=== PATIENT | female | born 1985 | race Caucasian/White ===

== ENCOUNTER → 2017-04-15 08:00 | Outpatient (CLI) | payer MEDICAID, SELFPAY ==
--- NOTE | 2017-04-15 08:03 | RDU_ITS ---
Reason For Study: I10 Right Renal Artery Left Renal Artery Right renal artery ostium 144/53.8 Left renal artery ostium 113/21.0 RSV/EDV. PSV/EDV. Right renal artery proximal Left renal artery proximal PSV/EDV 150/30.6 PSV/EDV. 134/45.7 . Right renal artery mid 158/49.9 Left renal artery mid 127/44.0 PSV/EDV. PSV/EDV . Right renal artery distal 156/42.8 Left renal artery distal 127/62.3 PSV/EDV. PSV/EDV. Right RAR 1.6. Left RAR 1.4. Right Renal Parenchyma Left Renal Parenchyma Upper Pole Medula 45.2/17.1 Left upper pole medulla 64.9/25.2 PSV/EDV. PSV/EDV . Right upper pole medulla EDR .38 . Left upper pole medulla EDR .39 . Right upper pole medulla R.I. .62 . Left upper pole medulla R.I. .61 . Upper Neil Cortx 34.8/15.3 PSV/EDV. UP Cortex 29.0/13.8 PSV/EDV. Right upper pole cortex EDR .44 . Left upper pole cortex EDR .47 . Right upper pole cortex R.I. .56 . Left upper pole cortex R.I. .53 . Right lower Pole medulla 40.9/13.4 Left lower Pole medulla 55.0/17.6 PSV/EDV . PSV/EDV . Right lower pole medulla EDR .33 . Left lower pole medulla EDR .32 . Right lower pole medulla R.I. .67 . Left lower pole medulla R.I. .68 . Lower Pole Cortex 40.9/15.3 Lower Pole Cortx 33.6/8.40 PSV/EDV. PSV/EDV. Left lower pole cortex EDR .25 . Right lower pole cortex EDR .37 . Left lower pole cortex R.I. .75 . Right lower pole cortex R.I. .63 . Left Renal Hilar Right Renal Hilar Left hilar acceleration time 66 Right hilar acceleration time 44 m/sec. m/sec. LT Hilar avg 94.0/35.1 PSV/EDV . Right Hilar avg 122/45.8 PSV/EDV. Left Renal Dimensions Right Renal Dimensions Left kidney size 13.2 cm . Right kidney size 12.3 cm . Left cortical dimension 2.19 cm . Right cortical dimension 1.7 cm . Aorta Proximal abdominal aorta 1.26 x 1.26 cm . Proximal abdominal aorta peak systolic velocity is 96.7 cm/sec . Distal abdominal aorta 1.26 x 1.3 cm . Distal abdominal aorta peak systolic velocity is 101 cm/sec . Normal renal veins bilat. Interpretation Summary Normal abdominal aorta at 1.3cm diameter 0-59% stenosis bilateral renal arteries: Normal Maintained renal length 12.3cm right and 13.2cm left Ordering Physician: Bethel Jauregui Performed By: Brennen Becker, RVT
== END ==
PROVIDERS: Family Provider Family Medicine; PCP Family Medicine
DX: I10 Essential (primary) hypertension (principal)
CPT/HCPCS: 93975

== ENCOUNTER 2017-04-20 07:23 | Day surgery (SDC) | payer MEDICAID, SELFPAY ==
--- NOTE | 2017-04-19 17:10 | HP.PCM_ITS ---
History and Physical Date of Admission: 04/20/17 Referring Provider: Bethel Jauregui III, MD Primary Provider: Bethel Jauregui III, MD CC: evaluation painful soft tissue mass pubic area . History of Present Illness: 32-year-old woman presents with a painful soft tissue mass on her pubic area. This mass first developed after abdominal surgery done earlier this summer. Back in 2015 she had a gastric bypass procedure including clinic. It was a laparoscopic Og-en-Y procedure. At that time she weighed about 380 pounds and today she weighs about 200 pounds. In August 2016 she underwent an abdominal panniculectomy. After surgery she developed some bleeding was taken back to surgery the same day where she underwent incision and drainage of postop hematoma. She did okay postoperatively initially for about a month. At the end of September she noticed increased pain and redness and swelling in the right side of her abdominal wall near the incision. She went back to surgery on October 20, 2016 where she underwent incision and drainage of infected abdominal seroma. She was treated with antibiotics and wound care until healed. Throughout these procedures she developed increased scarring in the lower anterior abdominal wall area and this exacerbated her painful symptomatology in her pubic area where a large soft tissue masses located. She denies any recent infection of the soft tissue mass. Denies any trauma. Denies any drainage. Patient denies any fever. She presents at this time for further evaluation and treatment. Past Medical History: Back Problems Bladder/Urinary Tract Inf Gallstones High BP Kidney Stones Ulcers - stomach Vitamin Deficiency Abdominal wall skin crease intertrigo Excessive weight loss after gastic bypass procedure painful soft tissue mass pubic area Past Surgical History: 2 Kidney stones removed gallbladder removed Gastric bypass - 2015 Laparoscopic Og-en-Y procedure at [facility] Abdominal panniculectomy - 09/17/16 Incision and drainage postop hematoma abdominal wall - 09/17/16 Incision and drainage infected postop abdominal wall seroma - 10/20/16 Left thyroid removed Family History: Mother (biol.) - Has Family History of Anxiety Mother (biol.) - Has Family History of Bleeding Disease Mother (biol.) - Has Family History of Depression Mother (biol.) - Has Family History of Hypertension Mother (biol.) - Has Family History of High Cholesterol Mother (biol.) - Has Family History of Other Cancer Father (biol.) - Has Family History of Diabetes Father (biol.) - Has Family History of Hypertension PGF - Has Family History of Colon Cancer PGF - Has Family History of Diabetes PGF - Has Family History of Heart Disease Social History: Alcohol Use - no Patient has never smoked. Medications: NEXPLANON IMPLANT (ETONOGESTREL IMPL) subdermal FLOMAX 0.4 MG ORAL CAPSULE (TAMSULOSIN HCL) Two tablets by mouth twice daily LISINOPRIL 40 MG ORAL TABLET (LISINOPRIL) One tablet by mouth twice daily NORCO 5-325 MG ORAL TABLET (HYDROCODONE-ACETAMINOPHEN) as needed VITAMIN D3 77835 UNIT ORAL TABLET (CHOLECALCIFEROL) 1 tab once a week ELAVIL TABLET (AMITRIPTYLINE HCL TABS) One tablet by mouth daily Allergies: NSAIDS (Critical) * GABAPENTIN (Critical) TORADOL (Critical) * TRAMADOL (Critical) Problems: 1) Dx of 8 cm painful soft tissue mass pubic area (SEB11-C92) (ICD-278.1) 2) Dx of excessive weight loss after gastic bypass procedure (VRG39-D91.4) (ICD -783.21) 3) Dx of abdominal wall skin crease intertrigo (VXQ61-O67.4) (ICD-695.89) Risk Factors: Smoked Tobacco Use: Never smoker Smokeless Tobacco Use: Never Passive smoke exposure: yes Drug use: no HIV high-risk behavior: no Caffeine use: <1 drinks per day Alcohol use: yes Has patient -- [place] need to cut down: no Been annoyed by complaints: no [place] guilty about drinking: no Needed eye confectionery laboratory manager in the morning: no Comments: social Counseled to quit/cut down alcohol use: no Exercise: yes Seatbelt use: 100 % Sun Exposure: occasionally Family History Risk Factors: Family History of VA in females < 65 years old: no Family History of VA in males < 55 years old: no Dietary Counseling: yes Review of Systems General-denies fever. Has some fatigue. Has had major weight loss since her gastric bypass procedure done a year and a half ago. She lost 180 pounds. Ear nose and throat-denies nasal congestion. Denies sore throat. Eyes-denies glaucoma. Denies cataracts. Endocrine-denies excessive thirst or urination. Skin-has an abdominal wall skin crease intertrigo for which she uses powders for relief. Musculoskeletal-denies joint pain, joint stiffness, weakness of muscles and joints, neck pain, and arthritis. Neurologic-has headaches. Cardiovascular-denies chest pain. Has some fatigue. Denies shortness of breath with exertion. Psychiatric-denies anxiety. Denies depression. Respiratory-denies shortness of breath. Denies chronic cough. Gastrointestinal-denies nausea, vomiting, diarrhea, constipation. Denies abdominal bloating. Hematologic-denies abnormal bruising or bleeding. Genitourinary-denies hematuria and urinary frequency. Vital Signs: Patient Profile: 32 Years Old Female Height: 67.50 inches Weight: 201.2 pounds BMI: 31.04 BSA: 2.04 Physical Exam General-well developed, well nourished, in no acute distress. HEENT-pupils equal round and reactive to light. Extraocular muscles intact. Throat is clear. Neck-supple and nontender. No cervical adenopathy. Lungs-clear to auscultation. Heart-regular rate and rhythm. Abdomen-soft and nondistended. There is abdominal wall scarring from previous abdominal panniculectomy. No abdominal masses noted. No ventral hernias noted. In the lower anterior abdominal wall by the pubic area is a large soft tissue mass measures 8 cm. It is mobile. Slight tenderness to palpation. No evidence of infection. No ulceration. No bleeding. Extremities-full range of motion. No axillary adenopathy. No inguinal adenopathy. Radial pulses and dorsalis pedis pulses are palpable. Neuro-cranial nerves II through XII grossly intact. Assessment and Plan Assessment 1. 8 cm painful soft tissue mass pubic area. 2. 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 3. Abdominal wall skin crease intertrigo. Plan Recommend excision of this painful soft tissue mass in her pubic area. This became more symptomatic because of the scarring in the close proximity to this mass from her recent surgeries and postop infection. We will send tissue to pathology for analysis to rule out carcinoma. Surgery will be done on an outpatient basis under general anesthesia. Due to the large size of the soft tissue mass, I will probably use a drain postoperatively. She was maintained on antibiotics until the drains are removed. I may also use Elin absorbable hemostat to minimize seroma formation. She will also need an abdominal binder postoperatively. The patient was informed of the risks and complications of the procedure including alternatives to surgery. These were discussed with the patient personally. The patient voices understanding and wishes to proceed. Some of the risks and complications were included in a form from the [employer] [employer].
[2017-04-20] VITALS (9 sets, daily range): BP systolic 126–149; BP diastolic 67–91; PULSE 70–88; RESP 14–16; TEMP 36.1–37; O2SAT 96–100; BMI 32.5
--- NOTE | 2017-04-20 | MASS_PTH ---
PATIENT: ISIDORO PENG [place] [facility] [id number] AGE/SX: ROOM: RE04/20/[address]: Dr. Gigi Mendieta MD : 1985 BED: DIS: 04/21/2017 SPEC #: [id number] RECD: 04/20/17 14:06 STATUS: RAFAELA CARMELA #: [id number] ANGELA: 04/20/17 00:[address]: Gigi Mendieta DEPT: SURGICAL PATHOLOGY RECD BY: Jaden Gregg ENTERED: 04/20/17 14:07 SP TYPE: Mass OTHR DR: Dr. Bethel Jauregui III, MD Tissues: Inguinal region, NOS Procedures: Surgery Specimen Level III HEADER OPERATION: Excision painful mass, soft tissue, pubic area PRE-OP DIAGNOSIS: Painful soft tissue mass, pubic area TISSUE SUBMITTED: Soft tissue mass, pubic area MICROSCOPIC DIAGNOSIS Soft tissue mass of pubic area, excision: Mature adipose tissue consistent with lipoma. Skin with no pathologic change. AM:lucinda 04/21/17 MICROSCOPIC DESCRIPTION Slides are reviewed. GROSS DESCRIPTION Received in fixative is one container labeled with the patient's name and designated soft tissue mass, pubic area. The specimen consists of multiple pieces of yellow adipose tissue with a few of the pieces showing overlying skin measuring 29 x 18 x 4 cm. The skin surface appears unremarkable. Sections do not reveal any obvious well-defined mass lesion and reveal mostly yellow adipose cut surfaces. A few pieces of skeletal muscle tissue are noted and also on the deeper portion of the tissue. Lead Python Developer sections are submitted in three cassettes. Cassette 1 also contains the skin piece. / MORENA:lucinda 04/20/17 TC:1 CPT: 67156
[2017-04-20 08:34] LABS: Pregnancy, Serum, hCG Quali. NEGATIVE Negative (0-9 Nonpreg)
[2017-04-20] MEDS: Cefazolin 2 GM in 0.9% Normal Saline 100 ML IV (09:35)
--- NOTE | 2017-04-20 11:13 | PCM.IMDPSTOP ---
Immediate Post-Op Note Date of Procedure: 04/20/17 Primary Surgeon/Physician: Gigi Mendieta creative producer: Danyell Kelly. Pre-Operative Diagnosis: 1. 8 cm painful soft tissue mass pubic area. 2. 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 3. Abdominal wall skin crease intertrigo. Post-Operative Diagnosis: Same. Surgery/Procedure Performed:: Excision 8 cm painful soft tissue mass pubic area with 20 cm complex closure. Description of Surgical Findings:: 31-year-old woman presents with a painful soft tissue mass on her pubic area. This mass first developed after abdominal surgery done earlier this summer. Back in 2015 she had a gastric bypass procedure including clinic. It was a laparoscopic Og-en-Y procedure. At that time she weighed about 380 pounds and today she weighs about 200 pounds. In August 2016 she underwent an abdominal panniculectomy. After surgery she developed some bleeding was taken back to surgery the same day where she underwent incision and drainage of postop hematoma. She did okay postoperatively initially for about a month. At the end of September she noticed increased pain and redness and swelling in the right side of her abdominal wall near the incision. She went back to surgery on October 20, 2016 where she underwent incision and drainage of infected abdominal seroma. She was treated with antibiotics and wound care until healed. Throughout these procedures she developed increased scarring in the lower anterior abdominal wall area and this exacerbated her painful symptomatology in her pubic area where a large soft tissue masses located. She denies any recent infection of the soft tissue mass. Denies any trauma. Denies any drainage. Patient denies any fever. She presents at this time for further evaluation and treatment. Today the patient underwent excision 8 cm painful soft tissue mass pubic area with 20 cm complex closure. I used Elin absorbable hemostat, (2 vials). Reference Number - [id number]. Lot Number - [id number]. Expiration - January 16, 2022. Estimated Blood Loss: 100 ml. Specimen's removed: Painful soft tissue mass pubic area to Pathology. Drains: Edenilson x 2. Type of Anesthesia:: General - Admit VTE Documentation VTE Present on Admission: No VTE Mechan Device Prophylaxis: SCD's VTE Pharm Prophylaxis ordered?: Yes
[2017-04-20] MEDS: oxyCODONE 5 MG Tablet 10 MG PO ×2 (14:45→18:34)
[2017-04-20] MEDS: Cefazolin 1 GM/50 ML BAG IV (15:57)
[2017-04-20] MEDS: Lactated Ringers 1,000 ML 60 ML IV (17:42)
--- NOTE | 2017-04-20 20:40 | PCM.OPRPT ---
Report of Operation Date of Procedure: 04/20/17 Pre-Operative Diagnosis: 1. 8 cm painful soft tissue mass pubic area. 2. 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 3. Abdominal wall skin crease intertrigo. Post-Operative Diagnosis: Same. Surgery/Procedure Performed:: Excision 8 cm painful soft tissue mass pubic area with 20 cm complex closure. Description of Surgical Findings:: 32-year-old woman presents with a painful soft tissue mass on her pubic area. This mass first developed after abdominal surgery done earlier this summer. Back in 2015 she had a gastric bypass procedure including clinic. It was a laparoscopic Og-en-Y procedure. At that time she weighed about 380 pounds and today she weighs about 200 pounds. In August 2016 she underwent an abdominal panniculectomy. After surgery she developed some bleeding was taken back to surgery the same day where she underwent incision and drainage of postop hematoma. She did okay postoperatively initially for about a month. At the end of September she noticed increased pain and redness and swelling in the right side of her abdominal wall near the incision. She went back to surgery on October 20, 2016 where she underwent incision and drainage of infected abdominal seroma. She was treated with antibiotics and wound care until healed. Throughout these procedures she developed increased scarring in the lower anterior abdominal wall area and this exacerbated her painful symptomatology in her pubic area where a large soft tissue masses located. She denies any recent infection of the soft tissue mass. Denies any trauma. Denies any drainage. Patient denies any fever. The patient was informed of the risks and complications of the procedure including alternatives to surgery. These were discussed with the patient personally. The patient voices understanding and wishes to proceed. Some of the risks and complications were included in a form from the [place] [employer]. I used Elin absorbable hemostat, (2 vials). Reference Number - [id number]. Lot Number - [id number]. Expiration - January 16, 2022. mechanic industrial truck: Danyell Kelly. Type of Anesthesia:: General Specimen's removed: Painful soft tissue mass pubic area to Pathology. Drains: Edenilson x 2. Estimated Blood Loss (mL): 100 ml. Description of Procedure: Patient was taken to OR in supine position and was placed under general anesthesia. Her lower anterior abdominal wall and pubic area were prepped and draped in the usual fashion. SCD's were placed for DVT prophylaxis. Perioperative antibiotics were given intravenously. Markings were made through the horizontal scar and a horizontal ellipse was marked out down toward the pubic mass. These markings were infiltrated with xylocaine with epinephrine. After waiting 5 minutes for the anesthetic to take effect, Incisions were made through the subcutaneous tissue until the abdominal wall fascia was seen. I then dissected inferiorly into the pubic area. There was a large soft tissue mass that was sharply dissected free off the fascia and the overlying subcutaneous tissue. The soft tissue mass was sent to Pathology for analysis to rule out carcinoma. Hemostasis was obtained with electrocautery. Dissection stopped short of the labial and vaginal area. Due to the large size of the cavity after surgical excision, I sprayed the wound with two vials of Elin absorbable hemostat to minimize seroma formation postoperatively. I then placed two size 15 Edenilson drains placed through separate incisions inferolaterally and secured to the skin with 3-0 Nylon suture. The lower abdominal incision was closed in a multiple layer complex fashion with 2-0 Vicryl figure of eight interrupted sutures for the underlying Rubens's fascia layer. The deep dermis and subcutaneous tissue was approximated with 3-0 Monocryl interrupted sutures. The skin was approximated with 3-0 V-lock unidirectional barbed running subcuticular suture. This was followed by Histoacryl skin tissue adhesive. Kerlix gauze dresing was applied followed by ABD pads and Medipore tape dressing followed by a compression abdominal binder. Due to the extent of the dissection, I feel she should be admitted for a surgical observation overnight stay in the hospital for IV pain control and to watch the wound area for possible postop bleeding issues or seroma issues. She will have the drains removed in 14 days. Grafts/Implants Used: None. - Complications None. - Admit VTE Documentation VTE Present on Admission: No VTE Mechan Device Prophylaxis: SCD's VTE Pharm Prophylaxis ordered?: Yes Code Visit Surgery Charges CPT - 56715 ICD-10 - E65, R63.4, L30.4
[2017-04-20] MEDS: Docusate Sodium 100 MG Capsule PO (22:43)
[2017-04-20] MEDS: HYDROmorphone 2 MG TABLET PO (22:43)
[2017-04-21 02:50] VITALS: BP 110/50; PULSE 82; RESP 14; TEMP 36.8; O2SAT 98
[2017-04-21] MEDS: HYDROmorphone 2 MG TABLET PO ×3 (03:32→15:22)
[2017-04-21] MEDS: Enoxaparin 40 MG/0.4 ML Syringe SC (06:07)
[2017-04-21] MEDS: Cefazolin 1 GM/50 ML BAG IV ×2 (06:23→13:08)
[2017-04-21 06:24] LABS: Hematocrit 27.4 % (37-47); Hemoglobin 8.7 g/dl (12.0-15.0); Mean Corp Hgb Conc 31.8 g/gl (32-36); Mean Corpuscular Hgb 26.8 pg (27.0-32.0); Mean Corpuscular Volume 84.3 fL (81-99); Mean Platelet Vol. 11.3 fl (6.2-12.0); Platelet Count 278 K/mm3 (150-450); RBC Distribution Width CV 17.6 % (11.6-14.6); Red Blood Count 3.25 M/mm3 (4.2-5.4); White Blood Count 5.9 K/mm3 (4.4-11.0)
[2017-04-21 06:29] LABS: Scan Indicated on CBC? Y/N NO
[2017-04-21 06:44] LABS: Anion Gap 8 (5-15); BUN 12 mg/dL (7-18); BUN/Creat Ratio 23.2 RATIO (10-20); Calcium,Total 7.8 mg/dL (8.5-10.1); Chloride 104 mmol/L (98-107); Creatinine, Serum 0.52 mg/dL (0.55-1.02); EST Glomerular Filtration Rate 147 mL/min (>60); Est Glom Filt Rate - Afr Amer 178 mL/min (>60); Estimated Creatinine Clearance 146.75 ml/min; Glucose 82 mg/dL (70-110); Prealbumin 22.3 mg/dL (20.0-40.0); Sodium Level 138 mmol/L (136-145)
[2017-04-21 08:20] VITALS: BP 121/53; PULSE 83; RESP 16; TEMP 36.7; O2SAT 100
[2017-04-21] MEDS: Lactated Ringers 1,000 ML 60 ML IV (09:39)
[2017-04-21] MEDS: Docusate Sodium 100 MG Capsule PO (09:41)
[2017-04-21] MEDS: Tamsulosin HCl 0.4 MG Capsule PO (09:41)
[2017-04-21] MEDS: Lisinopril 40 MG Tablet PO (09:41)
[2017-04-21] MEDS: Acetaminophen 325 MG Tablet 650 MG PO ×2 (11:09→17:21)
[2017-04-21 12:51] VITALS: BP 123/54; PULSE 92; RESP 18; TEMP 36.6; O2SAT 98
--- NOTE | 2017-04-21 18:53 | PN.SURG_ITS ---
Subjective: Postop #1 Patient is resting comfortably. Tolerating po analgesia. - Physical Exam General: Alert, Oriented x3 HEENT: PERRLA, EOMI Neck: Supple Lungs: Clear to auscultation Cardiovascular: Regular rate, Regular Rhythm Skin: Incision - lower abdominal wall and pubic incision is dry and intact. Mild swelling present in pubic area. Area is soft. No clinical evidence of hematoma. Neurological: Cranial nerves II-XII grossly intact Psych/Mental Status: Normal Affect Vital Signs Temp Pulse Resp BP Pulse Ox 97.9 F 92 18 123/54 H 98 04/21/17 12:51 04/21/17 12:51 04/21/17 12:51 04/21/17 12:51 04/21/17 12:51 Oxygen Delivery Method Room Air Weight: 201 lb 8.04 oz Body Mass Index (BMI) 32.5 Intake and Output for Last 24 Hours 04/19/17 04/20/17 04/21/17 23:59 23:59 23:59 Intake Total 2271 / 2271 2522 / 2522 Output Total 650 / 650 1240 / 1240 Balance 1621 / 1621 1282 / 1282 Drainage 190 ml today. Laboratory Tests Past 24 Hrs 04/21/17 04/21/17 05:50 05:50 WBC 5.9 RBC 3.25 L Hgb 8.7 L Hct 27.4 L MCV 84.3 MCH 26.8 L MCHC 31.8 L RDW 17.6 H RDW Differential 53.0 H Plt Count 278 MPV 11.3 Sodium 138 Potassium 4.0 Chloride 104 Carbon Dioxide 26.0 Anion Gap 8 BUN 12 Creatinine 0.52 L Estim Creat Clear Calc 146.75 Est GFR (MDRD) Af Amer 178 Est GFR (MDRD) Non-Af 147 BUN/Creatinine Ratio 23.2 H Glucose 82 Calcium 7.8 L Prealbumin 22.3 Assessment/Plan 1. 8 cm painful soft tissue mass pubic area, s/p excision. 2. 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 3. Abdominal wall skin crease intertrigo. 4. Anemia of chronic disease, acute on chronic. Incision is dry and intact. No clinical evidence of hematoma. Hgb is little low at 8.7. Due to combination of some operative blood loss and IV dilution. Will start her on Iron supplements. She will followup with her PCP in 4 weeks for further evaluation. I will recheck a Hgb as an outpatient in 1-2 weeks. Tolerating po analgesia. Prealbumin was 22.3. Encourage nutritional supplementation with protein to help the healing process. Discharge home today. Followup office one week. Will remove the drains in 10- 14 days. Wrote script for Keflex for 14 days until the drains are removed. Wrote script for Percocet for pain (50 tabs). Wrote scripts for Phenergan for nausea (30 tabs) and Colace for constipation ( 30 tabs). Wrote script for Iron supplements daily (30 tabs) with 2 refills. Continue abdominal wall binder.
--- NOTE | 2017-04-21 19:18 | PCM.DC ---
You will use the following diet at home:: No restrictions Discharge Activity: May not drive while taking narcotic pain medications., May Not Shower - until the drains are removed., - - no heavy lifting. May shower in (days): 14 - after the drains are removed. May resume sexual activity in: 10-14 days Ice area for (Minutes): 5 - as needed for swelling. Weight Bearing Status: Weight bearing as tolerated Call your doctor if your incision/area has: Continuous Slow Oozing, Sudden Increased Bleeding, Increased Pain/ Swelling, Increased Redness, Foul Smelling Discharge, Swelling at the incision site Call your doctor if you observe: Fever of 101 or Higher, Coldness, Increased Pain, Shortness of breath, Chest pain, Calf discomfort, Uncontrolled pain Change Dressing in (Days):: 1 - dry dressing daily. Cleanse incision/area with: - - may get the incision wet in the shower after the drains are removed. Drain: Suction - fidelia drain x 2 to bulb suction. empty and record output daily. Additional Instructions: I will check a Hgb in the next couple of weeks as an outpatient in the office. Allergies/Adverse Reactions: Allergies methocarbamol Allergy (Verified 04/13/17 15:15) Chest tightness gabapentin Adverse Reaction (Verified 04/13/17 15:15) MADE ME WALK SIDEWAYS ketorolac tromethamine [From Toradol] Adverse Reaction (Verified 04/13/17 15:15) Upset Stomach NSAIDS (Non-Steroidal Anti-Inflamma Adverse Reaction (Verified 04/13/17 15:15) gastric bipass not supposed to take tramadol Adverse Reaction (Verified 04/13/17 15:15) Upset Stomach Medications to take at Discharge Ergocalciferol [Vitamin D] 50,000 unit PO Q7D 03/25/13 Lisinopril [Zestril] 40 mg PO BID 05/07/15 Amitriptyline HCl [Elavil] 25 mg PO QHS 12/12/15 Etonogestrel [Nexplanon] 68 mg SQ X1 12/12/15 Tamsulosin HCl [Flomax] 0.4 mg PO DAILY 03/24/16 Acetaminophen [Tylenol Tablet] 650 mg PO Q6H PRN PRN tablet 04/21/17 Cephalexin [Keflex] 500 mg PO TID #42 cap 04/21/17 Docusate Sodium [Colace] 100 mg PO BID #30 cap 04/21/17 Iron Poly/Vit C [Niferex-150] 150 mg PO DAILYCM #30 cap 04/21/17 Oxycodone HCl/Acetaminophen [Percocet 5/325] 1 - 2 tab PO 4X/DAY PRN PRN 7 Days #50 tab 04/21/17 ProMETHAzine [Phenergan] 25 mg PO 4X/DAY PRN PRN #30 tab 04/21/17 The following prescriptions were given: Iron Poly/Vit C [Niferex-150] 150 mg PO DAILYCM #30 cap Oxycodone HCl/Acetaminophen [Percocet 5/325] 1 - 2 tab PO 4X/DAY PRN PRN 7 Days #50 tab PRN Reason: Pain ProMETHAzine [Phenergan] 25 mg PO 4X/DAY PRN PRN #30 tab PRN Reason: NAUSEA/VOMITING Docusate Sodium [Colace] 100 mg PO BID #30 cap Cephalexin [Keflex] 500 mg PO TID #42 cap Primary Care Physician: Bethel Jauregui III, MD [Primary Care Provider] - Please follow up with your Primary Care Physician in: 4 weeks to further evaluate her anemia. Please Follow Up With: Gigi Mendieta MD When: one week. call [phone] for appt. Proposed Discharge Date: 04/21/17
[2017-04-21 19:25] VITALS: BP 140/82; PULSE 88; RESP 18; TEMP 36.8; O2SAT 98
== END 2017-04-21 19:37 | disposition home or self-care (01) ==
LOC: SDC 07:24 → AC 07:24 → MS3 10:50
PROVIDERS: Anesthesiology; Family Provider Family Medicine; PCP Family Medicine; Visit Provider Surgery
PROC: (CPT 13101; principal; 2017-04-20 08:40)
DX: D17.79 Benign lipomatous neoplasm of other sites (principal); R63.4 Abnormal weight loss; E65 Localized adiposity; L30.4 Erythema intertrigo; D63.8 Anemia in other chronic diseases classified elsewhere; I10 Essential (primary) hypertension; Z68.31 Body mass index [BMI] 31.0-31.9, adult; Z98.84 Bariatric surgery status
CPT/HCPCS: 13101; 13102 ×2; 22903; 36415; 80048; 84134; 84703; 85027; 88304; 88305; J7120; J2405

== ENCOUNTER 2017-04-24 15:32 | Emergency (ER) | payer MEDICAID, SELFPAY ==
[2017-04-21 19:25] VITALS: BP 140/82
[2017-04-24 15:33] VITALS: BP 150/104; PULSE 94; RESP 18; TEMP 36.8; O2SAT 100; BMI 32.5
--- NOTE | 2017-04-24 15:51 | EKG12_ITS ---
Test Reason : WEAKNESS Blood Pressure : / mmHG Vent. Rate : 087 BPM Atrial Rate : 087 BPM P-R Int : 150 ms QRS Dur : 088 ms QT Int : 366 ms P-R-T Axes : 046 045 018 degrees QTc Int : 440 ms Normal sinus rhythm Normal ECG Confirmed by THOMAS BROWN, STEPHANE ([id number]), editor managing newspaper [employer] EVANS ([id number]) on 04/27/2017 8:42:20 AM Referred By: SHADI Confirmed By:STEPHANE GUZMAN MD
[2017-04-24] MEDS: 0.9% Normal Saline 1,000 ML 1000 ML IV (17:12)
--- NOTE | 2017-04-24 17:13 | ED.RN ---
PT WAS DIFFICULT IV STICK.
[2017-04-24 17:17] VITALS: BP 124/67; BP 129/67; BP 138/75; PULSE 75; PULSE 77; PULSE 80
[2017-04-24 17:24] LABS: Absolute Lymphocyte Count 1.31 X10^3/ul (0.83-4.51); Absolute Neutrophil Count 3.1 X10^3/uL (2.0-7.7); Basophil# 0.06 X10^3/uL; Basophil% 1.2 % (0-1); Eosinophil# 0.12 X10^3/uL; Eosinophils% 2.4 % (0-5); Lymphocyte # 1.31 X10^3/ul (4.0); Lymphocyte % 26.3 % (19-41); Mean Corp Hgb Conc 32.3 g/gl (32-36); Mean Corpuscular Hgb 27.2 pg (27.0-32.0); Mean Corpuscular Volume 84.2 fL (81-99); Mean Platelet Vol. 11.2 fl (6.2-12.0); Monocyte# 0.45 X10^3/uL; Neutrophil # 3.05 X10^3/uL (2.7-7.7); Neutrophil % 61.1 % (47-70); Platelet Count 349 K/mm3 (150-450); RBC Distribution Width CV 17.3 % (11.6-14.6); Red Blood Count 3.68 M/mm3 (4.2-5.4)
[2017-04-24 17:30] LABS: POSITIVE COUNT NO; POSITIVE DIFFERENTIAL NO; POSITIVE MORPHOLOGY NO
[2017-04-24 17:36] LABS: Anion Gap 5 (5-15); BUN 14 mg/dL (7-18); BUN/Creat Ratio 23.1 RATIO (10-20); Calcium,Total 8.6 mg/dL (8.5-10.1); Chloride 106 mmol/L (98-107); Creatinine, Serum 0.61 mg/dL (0.55-1.02); EST Glomerular Filtration Rate 122 mL/min (>60); Est Glom Filt Rate - Afr Amer 148 mL/min (>60); Estimated Creatinine Clearance 125.09 ml/min; Glucose 80 mg/dL (74-106); Potassium 4.2 mmol/L (3.5-5.1); Sodium Level 140 mmol/L (136-145)
[2017-04-24 17:39] LABS: International Normalized Ratio 0.9; Prothrombin Time (Protime)PT. 12.1 SECONDS (11.7-14.9)
[2017-04-24 17:53] VITALS: BP 128/76; PULSE 83; RESP 14; O2SAT 99
--- NOTE | 2017-04-24 18:13 | ED.DCSUM_ITS ---
- ER Visit Summary Date of Service: 04/24/17 Chief Complaint: Dizzy, pale, tired History of Present Illness: The patient is a 32 F who is concerned about possible anemia. 4 days ago she had abdominal surgery for a lipoma. Postoperatively her hemoglobin was 8.7. She states that since that time she has just generally felt more tired and feels she is more pale and has had intermittent lightheadedness. She denies any fever nausea or vomiting. She did have some diarrhea this morning. She called the hospital but was unable to contact her surgeon so presented here to the emergency department. She notes thin red drainage at her MARIE drains. She does complain of some increased lower abdominal pain but no drainage from the wound. Physical Examination: Afebrile vitals are stable Heart regular rate and rhythm Lungs are clear Abdomen soft Lower abdominal incisions clean dry and intact she has 2 MARIE drains which have serosanguineous drainage she does have some tenderness along the incision but I do not appreciate any fluctuance induration or erythema at the wound edges Test Results: Laboratory studies notable for hemoglobin 10.0. Orthostatic vital signs negative. EKG shows normal sinus rhythm at a rate of 87. Emergency Department Course and Treatment: Patient was treated with IV fluids. Her hemoglobin is improved. She has no evidence of wound infection. She was advised on supportive care. She understands to return for new or worsening symptoms. I did contact her plastic surgeon who asked that she call the office for follow-up next week. Treatment Plan: [] Disposition: Discharge Impression: Fatigue History of anemia Postoperative abdominal pain This note was generated with [employer] dictation software. It may contain incorrect words, spelling, and punctuation that were not noted in review of the chart prior to signing ED Disposition - Plan for ED Patient: Chief Complaint: Weakness Referrals: Bethel Jauregui III, MD [Primary Care Provider] -
--- NOTE | 2017-04-24 18:13 | ED.DEP ---
ED Disposition - Plan for ED Patient: Chief Complaint: Weakness Instructions: ED Weakness UKO, Anemia Referrals: Bethel Jauregui III, MD [Primary Care Provider] - Gigi Mendieta MD [STAFF PHYSICIAN] -
[2017-04-24 18:45] VITALS: RESP 16
== END 2017-04-24 18:47 | disposition home or self-care (01) ==
PROVIDERS: Emergency Provider Emergency Medicine; Family Provider Family Medicine; PCP Family Medicine
DX: R53.83 Other fatigue (principal); D64.9 Anemia, unspecified; G89.18 Other acute postprocedural pain; R10.9 Unspecified abdominal pain; I10 Essential (primary) hypertension; Z87.442 Personal history of urinary calculi; Z98.84 Bariatric surgery status
CPT/HCPCS: 80048; 85025; 85610; 86850; 86900; 93005; 99285; J7030; A4216

== ENCOUNTER 2017-04-30 09:36 | Inpatient (IN) | payer MEDICAID, SELFPAY ==
[2017-04-24 17:17] VITALS: BP 124/67; BP 129/67; BP 138/75
[2017-04-28 10:22] VITALS: BP 145/86
[2017-04-28 10:26] VITALS: BMI 32.5
[2017-04-30 09:38] VITALS: BP 138/91; PULSE 111; RESP 18; TEMP 36.4; O2SAT 100; BMI 32.3
--- NOTE | 2017-04-30 10:09 | CT_ITS ---
STUDY: CT PELVIS WITH CONTRAST REASON FOR EXAM: Female, 32 years old. Left groin pain with swelling and fever. Recent excessive skin removal. RADIATION DOSAGE (If Supplied By Facility): CTDIvol = ( 20.60 ) mGy, DLP = ( 1023.93 ) mGycm TECHNIQUE: Transaxial imaging of the pelvis was performed without oral contrast. 100 ml of Isovue 300 contrast was administered intravenously. Individualized dose optimization techniques were used for this CT. COMPARISON: Comparison is made with prior examination dated 2017. FINDINGS: Normal urinary bladder. There is a 2.4 cm x 2.2 cm cyst in the left ovary. A dominant follicle is seen in the right ovary. Normal visualized small intestine. Normal visualized colon. There is no pelvic fluid. There is no pelvic lymphadenopathy or mass lesion. Normal visualized pelvic arteries. There is a 12.9 cm x 2.2 cm fluid collection in the subcutaneous tissues in the anterior pelvic wall. A drainage catheter is seen within it. This most likely represents a postoperative seroma. This extends in to the mons pubis. Normal osseous structures. CT/Pelvis WITH IV Contrast IMPRESSION: Subcutaneous fluid collection as described. A drainage catheter is seen within. This most likely represents a postoperative seroma. Electronically Signed: Demetrius Brandon MD at 11:27 EST Tel [phone], Service support ,
[2017-04-30] MEDS: 0.9% Normal Saline 1,000 ML 150 ML IV (10:21)
[2017-04-30] MEDS: Ondansetron 4 MG/2 ML Vial IV (10:22)
[2017-04-30 10:51] LABS: Absolute Lymphocyte Count 1.03 X10^3/ul (0.83-4.51); Absolute Neutrophil Count 12.2 X10^3/uL (2.0-7.7); Basophil# 0.05 X10^3/uL; Basophil% 0.3 % (0-1); Eosinophil# 0.05 X10^3/uL; Eosinophils% 0.3 % (0-5); Hematocrit 32.2 % (37-47); Hemoglobin 10.4 g/dl (12.0-15.0); Lymphocyte # 1.03 X10^3/ul (4.0); Lymphocyte % 6.9 % (19-41); Mean Corp Hgb Conc 32.3 g/gl (32-36); Mean Corpuscular Hgb 26.3 pg (27.0-32.0); Mean Corpuscular Volume 81.3 fL (81-99); Mean Platelet Vol. 10.8 fl (6.2-12.0); Monocyte# 1.47 X10^3/uL; Monocyte% 9.9 % (0-10); Neutrophil # 12.23 X10^3/uL (2.7-7.7); Neutrophil % 82.4 % (47-70); Platelet Count 455 K/mm3 (150-450); RBC Distribution Width CV 16.5 % (11.6-14.6); RBC Distribution Width SD 48.2 fl (35.1-43.9); Red Blood Count 3.96 M/mm3 (4.2-5.4); White Blood Count 14.9 K/mm3 (4.4-11.0)
[2017-04-30 10:53] LABS: POSITIVE COUNT NO; POSITIVE DIFFERENTIAL NO; POSITIVE MORPHOLOGY NO
[2017-04-30 11:04] LABS: Anion Gap 8 (5-15); BUN 14 mg/dL (7-18); BUN/Creat Ratio 23.4 RATIO (10-20); Calcium,Total 8.6 mg/dL (8.5-10.1); Chloride 102 mmol/L (98-107); EST Glomerular Filtration Rate 124 mL/min (>60); Est Glom Filt Rate - Afr Amer 150 mL/min (>60); Estimated Creatinine Clearance 127.18 ml/min; Glucose 96 mg/dL (74-106); Potassium 4.1 mmol/L (3.5-5.1); Sodium Level 136 mmol/L (136-145)
[2017-04-30 11:25] LABS: Lactic Acid 1.2 mmol/L (0.4-2.0)
--- NOTE | 2017-04-30 11:40 | ED.VISSUMM ---
- ER Visit Summary Date of Service: 04/30/17 Chief Complaint: Mane with left lower quadrant abdominal pain, fullness, fever and increased drainage History of Present Illness: The patient is a 32 F status post gastric bypass surgery many years ago and underwent abdominoplasty to remove excess skin August 2016 presents because of fever, left lower quadrant fullness and pain with increased drainage since MARIE drain was removed. She still has [address] There is serous bloody material noted in the drain. She denies headache, photophobia sips of her neck. She denies rhinorrhea, earache or sore throat. She denies cough or shortness of breath. She denies chest pain. She denies dysuria, urgency or hematuria. She denies any back or flank pain. She does report increased drainage from the remaining MARIE site. Physical Examination: Signs are remarkable for a blood pressure 138/91 heart rate is 111. She appears pale and ill. Head is atraumatic normocephalic. Pupils are equal round reactive. Extraocular muscles are intact. Interval appear pale. TMs are pearly white with landmarks noted. Nares patent with no drainage. Posterior pharynx without erythema or exudate. Uvula is midline. There is no dysphonia or dysphasia. Trachea is midline. There is no stridor with auscultation of the neck. Heart is rapid and regular without murmur, gallop or rub. S1 and S2 are normal. Lungs are clear to auscultation with good movement of air bilaterally. It is remarkable tenderness and fullness in left lower quadrant. There is erythema of the skin with increased warmth. There is minimal drainage from the MARIE drainage site. There is no peritoneal findings. There is no CVA tenderness noted. Neuro exam is nonfocal. Test Results: White count is elevated 14.9 thousand with 83 segs no bands. H&H is 10.4 and 32.2 which is an improvement from prior. BMP and lactate are normal. CT of the pelvis reveals a fluid collection consistent with a seroma. Emergency Department Course and Treatment: Planes of fever chills appears pale a CBC was obtained to assess white count and H&H. BMP to evaluate electrolytes and specifically BUN and creatinine. Because of the fullness tenderness warmth with increased drainage a CT of the pelvis with IV contrast was obtained to evaluate for hematoma versus abscess versus cellulitis. Treatment Plan: Was discussed Dr. jeffrey. He was informed of patient's history, physical findings diagnostic results. He requested admission. Therefore, she received 60 mg of clindamycin IV piggyback. Will put in admit orders and see her on the floor. Disposition: [facility] admit Impression: 1. Postop wound infection 2. Sepsis line 3. Sinus tachycardia documented on monitor This note was generated with [employer] dictation software. It may contain incorrect words, spelling, and punctuation that were not noted in review of the chart prior to signing ED Disposition - Plan for ED Patient: Chief Complaint: Wound Check Referrals: Bethel Jauregui III, MD [Primary Care Provider] -
--- NOTE | 2017-04-30 11:43 | ED.DCSUM_ITS ---
- ER Visit Summary Date of Service: 04/30/17 Chief Complaint: Mane with left lower quadrant abdominal pain, fullness, fever and increased drainage History of Present Illness: The patient is a 32 F status post gastric bypass surgery many years ago and underwent abdominoplasty to remove excess skin August 2016 presents because of fever, left lower quadrant fullness and pain with increased drainage since MARIE drain was removed. She still has [address] There is serous bloody material noted in the drain. She denies headache, photophobia sips of her neck. She denies rhinorrhea, earache or sore throat. She denies cough or shortness of breath. She denies chest pain. She denies dysuria, urgency or hematuria. She denies any back or flank pain. She does report increased drainage from the remaining MARIE site. Physical Examination: Signs are remarkable for a blood pressure 138/91 heart rate is 111. She appears pale and ill. Head is atraumatic normocephalic. Pupils are equal round reactive. Extraocular muscles are intact. Interval appear pale. TMs are pearly white with landmarks noted. Nares patent with no drainage. Posterior pharynx without erythema or exudate. Uvula is midline. There is no dysphonia or dysphasia. Trachea is midline. There is no stridor with auscultation of the neck. Heart is rapid and regular without murmur, gallop or rub. S1 and S2 are normal. Lungs are clear to auscultation with good movement of air bilaterally. It is remarkable tenderness and fullness in left lower quadrant. There is erythema of the skin with increased warmth. There is minimal drainage from the MARIE drainage site. There is no peritoneal findings. There is no CVA tenderness noted. Neuro exam is nonfocal. Test Results: White count is elevated 14.9 thousand with 83 segs no bands. H&H is 10.4 and 32.2 which is an improvement from prior. BMP and lactate are normal. CT of the pelvis reveals a fluid collection consistent with a seroma. Emergency Department Course and Treatment: Planes of fever chills appears pale a CBC was obtained to assess white count and H&H. BMP to evaluate electrolytes and specifically BUN and creatinine. Because of the fullness tenderness warmth with increased drainage a CT of the pelvis with IV contrast was obtained to evaluate for hematoma versus abscess versus cellulitis. Treatment Plan: Was discussed Dr. jeffrey. He was informed of patient's history , physical findings diagnostic results. He requested admission. Therefore, she received 60 mg of clindamycin IV piggyback. Will put in admit orders and see her on the floor. Disposition: [facility] admit Impression: 1. Postop wound infection 2. Sepsis line 3. Sinus tachycardia documented on monitor This note was generated with [employer] dictation software. It may contain incorrect words, spelling, and punctuation that were not noted in review of the chart prior to signing ED Disposition - Plan for ED Patient: Chief Complaint: Wound Check Referrals: Bethel Jauregui III, MD [Primary Care Provider] -
--- NOTE | 2017-04-30 11:58 | NURSING ---
DR CAMILO DARLING
--- NOTE | 2017-04-30 12:32 | NURSING ---
310 CELLULITIS LOWER ANTERIOR ABD WALL AND PUBIC ARE SLABY
[2017-04-30 12:38] VITALS: BP 126/87; PULSE 99; RESP 18; TEMP 37; O2SAT 100
[2017-04-30 13:31] VITALS: BP 128/70; PULSE 100; RESP 16; TEMP 37.7; O2SAT 99
[2017-04-30 13:44] VITALS: BMI 32.3; BMI 32.4
[2017-04-30] MEDS: Lactated Ringers 1,000 ML 100 ML IV (14:08)
[2017-04-30] MEDS: HYDROmorphone 1 MG/ML Syringe IV ×2 (14:21→19:49)
[2017-04-30 14:23] VITALS: PULSE 98
[2017-04-30] MEDS: Piperacil/Tazobactam 3.375 GM/50 ML ML IV ×2 (14:49→21:24)
--- NOTE | 2017-04-30 14:51 | PN.SURG_ITS ---
Patient Problems: Active and Suspected Problems (Last Updated 04/23/17 @ 14:42 by Griselda Chou) Cellulitis of abdominal wall (Acute) Cellulitis of pubic region (Acute) Subjective: DATE OF LAST HISTORY AND PHYSICAL - April 19, 2017. DATE OF PREVIOUS SURGERY - April 20, 2017. Postop #10 Patient recently had surgery on 04/20/17 where she underwent excision 8 cm painful soft tissue mass pubic area with 20 cm complex closure. Patient presented with increasing redness and pain in her pubic area over the last 24 hours. She also noted fever at home. She had two drains placed at the time of surgery, and one was recently removed in the office a couple of days ago. She also decreased appetite. In the ED, her WBC was 14.9. A CT Pelvis was done which showed the presence of a postop seroma. She is being admitted for IV antibiotics and possible surgical drainage if improvement is not seen. - Physical Exam General: Alert, Oriented x3 HEENT: PERRLA, EOMI Neck: Supple Lungs: Clear to auscultation Cardiovascular: Regular rate, Regular Rhythm Abdomen: Soft, Non-Distended, - - Pubic area is swollen from her recent surgery. The skin is soft. Some cellulitis is seen on the right side of the pubic area. Extremities: Edema - mild edema in lower extremities., Peripheral Pulses Normal Lymphatic: - - no inguinal adenopathy. Neurological: Cranial nerves II-XII grossly intact Psych/Mental Status: Normal Affect, Appropriate Vital Signs Temp Pulse Resp BP Pulse Ox 99.9 F H 98 16 128/70 H 99 04/30/17 13:31 04/30/17 14:23 04/30/17 13:31 04/30/17 13:31 04/30/17 13:31 Oxygen Delivery Method Room Air Weight: 201 lb 0.985 oz Body Mass Index (BMI) 32.[address] 04/30/17 10:09 IMPRESSION: Subcutaneous fluid collection as described. A drainage catheter is seen within. This most likely represents a postoperative seroma. Electronically Signed: Demetrius Brandon MD at 11:27 EST Tel [phone], Service support , 04/30/17 10:09 CT Pel [Pelvis WITH IV Contrast] [CT] Stat Laboratory Results 04/30/17 04/30/17 04/30/17 Range/Units 10:40 10:40 10:40 WBC 14.9 H (4.4-11.0) K/mm3 RBC 3.96 L (4.2-5.4) M/mm3 Hgb 10.4 L (12.0-15.0) g/dl Hct 32.2 L (37-47) % MCV 81.3 (81-99) fL MCH 26.3 L (27.0-32.0) pg MCHC 32.3 (32-36) g/gl RDW 16.5 H (11.6-14.6) % RDW Differential 48.2 H (35.1-43.9) fl Plt Count 455 H (150-450) K/mm3 MPV 10.8 (6.2-12.0) fl Immature Gran % (Auto) 0.200 (0.0-0.9) % Neut % (Auto) 82.4 H (47-70) % Lymph % (Auto) 6.9 L (19-41) % [place] % (Auto) 9.9 (0-10) % Eos % (Auto) 0.3 (0-5) % Baso % (Auto) 0.3 (0-1) % Absolute Neuts (auto) 12.2 H (2.0-7.7) X10^3/uL Absolute Lymphs (auto) 1.03 (0.83-4.51) X10^3/ul Total Counted Not Reportable Sodium 136 (136-145) mmol/L Potassium 4.1 (3.5-5.1) mmol/L Chloride 102 (98-107) mmol/L Carbon Dioxide 26.0 (21.0-32.0) mmol/L Anion Gap 8 (5-15) BUN 14 (7-18) mg/dL Creatinine 0.60 (0.55-1.02) mg/dL Estim Creat Clear Calc 127.18 ml/min Est GFR (MDRD) Af Amer 150 (>60) mL/min Est GFR (MDRD) Non-Af 124 (>60) mL/min BUN/Creatinine Ratio 23.4 H (10-20) RATIO Glucose 96 (74-106) mg/dL Lactic Acid 1.2 (0.4-2.0) mmol/L Calcium 8.6 (8.5-10.1) mg/dL Assessment/Plan Active and Suspected Problems (Last Updated 04/23/17 @ 14:42 by Griselda Chou) Cellulitis of abdominal wall (Acute) Cellulitis of pubic region (Acute) 1. 8 cm painful soft tissue mass pubic area. 2. 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 3. Abdominal wall skin crease intertrigo. 4. s/p excision 8 cm painful soft tissue mass pubic area with 20 cm complex closure. 5. Cellulitis lower anterior abdominal wall and pubic area. Admit for IV antibiotics. Will start with Vancomycin and Zosyn. Recheck labs tomorrow. Continue abdominal wall binder. Will remove drain in 7-10 days. No urgent need for surgery at this time. Patient can eat. If no improvement is seen or if it gets worse, then operative drainage may be necessary. If surgery is done, I would leave the wound open and proceed with the VAC. Can then proceed in the future when the inflammation has subsided with a secondary wound closure. May also consider an Ultrasound guided drainage of the seroma and then send some fluid for culture.
[2017-04-30] MEDS: oxyCODONE 5 MG Tablet 10 MG PO ×2 (17:16→21:12)
[2017-04-30] MEDS: 0.9% NaCl Peripheral Flush Adult/Peds IV (19:50)
[2017-04-30 20:03] VITALS: BP 145/69; PULSE 108; RESP 18; TEMP 37.4; O2SAT 98
[2017-04-30 21:00] VITALS: BP 132/54; PULSE 102; RESP 16; TEMP 36.6; O2SAT 98
--- NOTE | 2017-04-30 21:00 | NURSING ---
PT CALLED BUSINESS PLANNING MANAGER AND STATED SHE HAD STUMBLED AND HER ABD PRESSED AGAINST THE SIDE OF THE BED. REPORTS FEELING AN INCREASE IN MARIE DRAINAGE AND AN INCREASE IN PAIN. VSS. MEDICATED FOR PAIN. PT PLACED ON FALL PRECAUTIONS. WILL CONTINUE TO MONITOR MARIE OUTPUT.
[2017-04-30] MEDS: Labetalol 100 MG Tablet PO (21:27)
--- NOTE | 2017-04-30 22:46 | NURSING ---
PER KATHY IN RX, OK TO INCREASE OXYIR TO 15MG Q4H. NO UPPER LIMIT ON DOSE.
[2017-05-01] VITALS (8 sets, daily range): BP systolic 104–128; BP diastolic 49–61; PULSE 90–105; RESP 16; TEMP 36.7–36.9; O2SAT 98–99
[2017-05-01] MEDS: HYDROmorphone 1 MG/ML Syringe IV ×4 (00:07→19:08)
[2017-05-01] MEDS: 0.9% NaCl Peripheral Flush Adult/Peds IV ×2 (00:07→07:39)
[2017-05-01] MEDS: Lactated Ringers 1,000 ML 100 ML IV ×2 (00:07→10:05)
--- NOTE | 2017-05-01 00:18 | NURSING ---
PT REPORTS FEELING FLUSH AND ITCHING DURING VANC INFUSION. RATE REDUCED TO 100ML/HR
[2017-05-01] MEDS: oxyCODONE 5 MG Tablet 15 MG PO ×5 (04:38→22:50)
[2017-05-01] MEDS: Piperacil/Tazobactam 3.375 GM/50 ML ML IV ×3 (06:27→21:44)
[2017-05-01 07:11] LABS: Hematocrit 26.4 % (37-47); Hemoglobin 8.3 g/dl (12.0-15.0); Mean Corp Hgb Conc 31.4 g/gl (32-36); Mean Corpuscular Hgb 26.1 pg (27.0-32.0); Mean Platelet Vol. 10.2 fl (6.2-12.0); Platelet Count 380 K/mm3 (150-450); RBC Distribution Width CV 16.8 % (11.6-14.6); RBC Distribution Width SD 51.7 fl (35.1-43.9); Red Blood Count 3.18 M/mm3 (4.2-5.4); White Blood Count 9.9 K/mm3 (4.4-11.0)
[2017-05-01 07:18] LABS: Scan Indicated on CBC? Y/N NO
[2017-05-01 07:34] LABS: Anion Gap 7 (5-15); BUN 9 mg/dL (7-18); BUN/Creat Ratio 16.8 RATIO (10-20); Chloride 103 mmol/L (98-107); Creatinine, Serum 0.54 mg/dL (0.55-1.02); EST Glomerular Filtration Rate 141 mL/min (>60); Est Glom Filt Rate - Afr Amer 170 mL/min (>60); Estimated Creatinine Clearance 141.31 ml/min; Glucose 98 mg/dL (74-106); Potassium 3.8 mmol/L (3.5-5.1); Sodium Level 136 mmol/L (136-145)
[2017-05-01] MEDS: Tamsulosin HCl 0.4 MG Capsule 0.8 MG PO (08:11)
[2017-05-01] MEDS: Labetalol 100 MG Tablet PO ×2 (09:44→21:44)
[2017-05-01] MEDS: hydroCHLOROthiazide 25 MG Tablet 12.5 MG PO (09:44)
[2017-05-01] MEDS: Lisinopril 40 MG Tablet PO ×2 (09:44→21:44)
[2017-05-01] MEDS: amLODIPine 10 MG Tablet PO (09:45)
--- NOTE | 2017-05-01 12:05 | PCM.PN.SRG ---
Patient Problems: Active and Suspected Problems (Last Updated 04/23/17 @ 14:42 by Griselda Chou) Cellulitis of abdominal wall (Acute) Cellulitis of pubic region (Acute) Subjective: Postop #11 Patient feels tired. Has discomfort in her incision area and pubic area. - Physical Exam Abdomen: Soft, Non-Distended, - - Pubic area is swollen from her recent surgery. The skin is soft. The cellulitis seen on the right side of the pubic area has improved with the antibiotics. Extremities: Edema - mild edema in lower extremities. Skin: Incision - lower anterior abdominal wall incision dry and intact. Lymphatic: - - no inguinal adenopathy. Neurological: Cranial nerves II-XII grossly intact Psych/Mental Status: Normal Affect, Appropriate Vital Signs Temp Pulse Resp BP Pulse Ox 98.5 F 99 16 128/61 H 98 05/01/17 09:30 05/01/17 09:30 05/01/17 09:30 05/01/17 09:30 05/01/17 09:30 Oxygen Delivery Method Room Air Weight: 201 lb 0.985 oz Body Mass Index (BMI) 32.4 Intake and Output for Last 24 Hours 04/29/17 04/30/17 05/01/17 23:59 23:59 23:59 Intake Total 2510 / 2510 3072 / 3072 Output Total 550 / 550 1240 / 1240 Balance 1959 / 1959 1832 / 1832 Drainage 350 ml yesterday. Laboratory Tests Past 24 Hrs 05/01/17 05/01/17 05/01/17 06:37 06:37 06:37 WBC 9.9 RBC 3.18 L Hgb 8.3 L Hct 26.4 L MCV 83.0 MCH 26.1 L MCHC 31.4 L RDW 16.8 H RDW Differential 51.7 H Plt Count 380 MPV 10.2 Sodium 136 Potassium 3.8 Chloride 103 Carbon Dioxide 26.0 Anion Gap 7 BUN 9 Creatinine 0.54 L Estim Creat Clear Calc 141.31 Est GFR (MDRD) Af Amer 170 Est GFR (MDRD) Non-Af 141 BUN/Creatinine Ratio 16.8 Glucose 98 Calcium 8.0 L Prealbumin 9.0 L Cancelled Assessment/Plan Active and Suspected Problems (Last Updated 04/23/17 @ 14:42 by Griselda Chou) Cellulitis of abdominal wall (Acute) Cellulitis of pubic region (Acute) 1. 8 cm painful soft tissue mass pubic area. 2. 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 3. Abdominal wall skin crease intertrigo. 4. s/p excision 8 cm painful soft tissue mass pubic area with 20 cm complex closure. 5. Cellulitis lower anterior abdominal wall and pubic area, improving. 6. Anemia of chronic disease, acute on chronic. 7. History of MRSA. Continue Vancomycin and Zosyn. She states she has a history of MRSA. Continue abdominal wall binder. Will remove drain in 7-10 days. No need for surgery at this time. Improvement is seen. May change to po antibiotics tomorrow if continued improvement seen. If no improvement is seen or if it gets worse, then operative drainage may be necessary. If surgery is done, I would leave the wound open and proceed with the VAC. Can then proceed in the future when the inflammation has subsided with a secondary wound closure. May also consider an Ultrasound guided drainage of the seroma and then send some fluid for culture. Hgb has decreased from 10.4 to 8.3. She has anemia of chronic disease with acute on chronic. There is no evidence of bleeding at this time. CT in ED showed a seroma. Skin is soft. No blood coming out of the drain. Looks more serous. It is mostly due to IV dilution. She is positive 3,800 ml from her I's/O's. Started her on Fe supplementation. She will followup with her PCP regarding her chronic anemia for evaluation since it is quite common to have anemia after gastric bypass surgery. Prealbumin quite low at 9.0. Encourage nutritional supplementation with protein to help the healing process.
[2017-05-01] MEDS: Iron Polysaccharide Complex 150 MG CAPSULE PO (12:42)
--- NOTE | 2017-05-01 15:00 | CASEMGMT ---
clinical assessment manager completed, see attached. States was told may go home with IVAB. Patient feels she would be able to learn how to admin IVAB herself and she has an Step-mom, who is a nurse, that can assist. If home care is needed, no preference on agency. Has [facility] medicaid. Debated doing advance directives while she is here but wants to think about it a little more. Booklet given and instructed her to just tell a staff member if she decides to complete while here in the hospital. Verb understanding. Lawrence Calero RN, CCM.
[2017-05-02] MEDS: Lactated Ringers 1,000 ML 60 ML IV ×2 (01:18→17:19)
[2017-05-02 02:45] VITALS: BP 111/60; PULSE 92; RESP 16; TEMP 37.3; O2SAT 98
[2017-05-02] MEDS: oxyCODONE 5 MG Tablet 15 MG PO ×5 (03:11→21:42)
[2017-05-02] MEDS: Piperacil/Tazobactam 3.375 GM/50 ML ML IV (05:41)
[2017-05-02] MEDS: HYDROmorphone 1 MG/ML Syringe IV ×3 (06:19→18:33)
[2017-05-02 06:37] LABS: Hematocrit 25.9 % (37-47); Hemoglobin 8.4 g/dl (12.0-15.0); Mean Corp Hgb Conc 32.4 g/gl (32-36); Mean Corpuscular Hgb 26.9 pg (27.0-32.0); Platelet Count 418 K/mm3 (150-450); RBC Distribution Width CV 16.3 % (11.6-14.6); RBC Distribution Width SD 48.3 fl (35.1-43.9); Red Blood Count 3.12 M/mm3 (4.2-5.4); White Blood Count 7.4 K/mm3 (4.4-11.0)
[2017-05-02 06:42] LABS: Scan Indicated on CBC? Y/N NO
[2017-05-02 07:04] LABS: Anion Gap 8 (5-15); BUN 6 mg/dL (7-18); BUN/Creat Ratio 9.7 RATIO (10-20); Calcium,Total 8.4 mg/dL (8.5-10.1); Chloride 102 mmol/L (98-107); Creatinine, Serum 0.62 mg/dL (0.55-1.02); EST Glomerular Filtration Rate 120 mL/min (>60); Est Glom Filt Rate - Afr Amer 145 mL/min (>60); Estimated Creatinine Clearance 123.08 ml/min; Glucose 87 mg/dL (74-106); Potassium 3.8 mmol/L (3.5-5.1); Sodium Level 138 mmol/L (136-145)
[2017-05-02 07:06] LABS: Vancomycin, Trough Level 16.5 ug/mL (5.0-15.0)
[2017-05-02] MEDS: Iron Polysaccharide Complex 150 MG CAPSULE PO (07:52)
[2017-05-02] MEDS: Tamsulosin HCl 0.4 MG Capsule 0.8 MG PO (07:53)
[2017-05-02 08:54] VITALS: BP 138/62; PULSE 96; RESP 16; TEMP 36.9; O2SAT 98
[2017-05-02] MEDS: hydroCHLOROthiazide 25 MG Tablet 12.5 MG PO (08:56)
[2017-05-02] MEDS: Labetalol 100 MG Tablet PO ×2 (08:56→21:43)
[2017-05-02] MEDS: Lisinopril 40 MG Tablet PO ×2 (08:56→21:42)
[2017-05-02] MEDS: amLODIPine 10 MG Tablet PO (08:57)
--- NOTE | 2017-05-02 12:13 | PCM.PN.SRG ---
Patient Problems: Active and Suspected Problems (Last Updated 04/23/17 @ 14:42 by Griselda Chou) Cellulitis of abdominal wall (Acute) Cellulitis of pubic region (Acute) Subjective: Postop #12 Patient has incisional pain and residual swelling pain. The cellulitis continues to resolve. - Physical Exam General: Alert, Oriented x3 HEENT: PERRLA, EOMI Neck: Supple Lungs: Clear to auscultation Cardiovascular: Regular rate, Regular Rhythm Abdomen: Soft, Non-Distended, - - - Pubic area is swollen from her recent surgery. The skin is soft. The cellulitis continues to resolve. Skin: Incision - lower anterior abdominal wall incision dry and intact. Lymphatic: - - no inguinal adenopathy. Neurological: Cranial nerves II-XII grossly intact Psych/Mental Status: Normal Affect, Appropriate Vital Signs Temp Pulse Resp BP Pulse Ox 98.5 F 96 16 138/62 H 98 05/02/17 08:54 05/02/17 08:54 05/02/17 08:54 05/02/17 08:54 05/02/17 08:54 Oxygen Delivery Method Room Air Weight: 201 lb 0.985 oz Body Mass Index (BMI) 32.4 Intake and Output for Last 24 Hours 04/30/17 05/01/17 05/02/17 23:59 23:59 23:59 Intake Total 2510 / 2510 4686 / 4686 1350 / 1350 Output Total 550 / 550 2285 / 2285 275 / 275 Balance 1960 / 1960 2401 / 2401 1075 / 1075 Drainage 185 ml yesterday, 75 ml today. Laboratory Tests Past 24 Hrs 05/02/17 05/02/17 05/02/17 06:08 06:08 06:08 WBC 7.4 RBC 3.12 L Hgb 8.4 L Hct 25.9 L MCV 83.0 MCH 26.9 L MCHC 32.4 RDW 16.3 H RDW Differential 48.3 H Plt Count 418 MPV 11.0 Sodium 138 Potassium 3.8 Chloride 102 Carbon Dioxide 28.0 Anion Gap 8 BUN 6 L Creatinine 0.62 Estim Creat Clear Calc 123.08 Est GFR (MDRD) Af Amer 145 Est GFR (MDRD) Non-Af 120 BUN/Creatinine Ratio 9.7 L Glucose 87 Calcium 8.4 L Vancomycin Trough 16.5 H Assessment/Plan Active and Suspected Problems (Last Updated 04/23/17 @ 14:42 by Griselda Chou) Cellulitis of abdominal wall (Acute) Cellulitis of pubic region (Acute) 1. 8 cm painful soft tissue mass pubic area. 2. 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 3. Abdominal wall skin crease intertrigo. 4. s/p excision 8 cm painful soft tissue mass pubic area with 20 cm complex closure. 5. Cellulitis lower anterior abdominal wall and pubic area, improving. 6. Anemia of chronic disease, acute on chronic. 7. History of MRSA. Cellulitis continues to resolve. Will stop the Vancomycin and Zosyn. She states she has a history of MRSA. Will start Doxycycline and Cipro. If the cellulitis worsens then will restart the IV antibiotics. Continue abdominal wall binder. Will remove drain in 7-10 days. No need for surgery at this time. Cellulitis continues to resolve. If IV antibiotics need to be restarted because of worsening of the cellulitis, may need operative intervention. If surgery is done, I would leave the wound open and proceed with the VAC. Can then proceed in the future when the inflammation has subsided with a secondary wound closure. May also consider an Ultrasound guided drainage of the seroma and then send some fluid for culture. Hgb stable at 8.4 from 8.3. She has anemia of chronic disease with acute on chronic. There is no evidence of bleeding at this time. CT in ED showed a seroma. Skin is soft. No blood coming out of the drain. Looks more serous. It is mostly due to IV dilution. She is positive 5,400 ml from her I's/O's. Her IV rate has been decreased. Continue Fe supplementation. She will followup with her PCP regarding her chronic anemia for evaluation since it is quite common to have anemia after gastric bypass surgery. Prealbumin quite low at 9.0. Encourage nutritional supplementation with protein to help the healing process.
[2017-05-02] MEDS: Doxycycline 100 MG CAPSULE PO ×2 (12:49→21:43)
[2017-05-02] MEDS: Ciprofloxacin 500 MG Tablet PO ×2 (12:49→21:43)
[2017-05-02 14:50] VITALS: BP 129/69; PULSE 95; RESP 16; TEMP 36.4; O2SAT 97
[2017-05-02 17:08] VITALS: BP 154/70; PULSE 97
--- NOTE | 2017-05-02 17:12 | NURSING ---
Pt. c/o nausea and dizziness.
[2017-05-02] MEDS: Ondansetron 4 MG/2 ML Vial IV (17:13)
--- NOTE | 2017-05-02 18:01 | PCM.PN.BLA ---
Progress Note Was called to see the patient because of difficulty urinating because of swelling around the superior aspect of her labia on the left. She had to spread the swollen labia in order to urinate. When she did that she noted increased pain on the left labia with some bruising. She's back in bed now and states the pain has improved a little. On exam, there is a small bruised area on the superior aspect left labia. The area is soft with minimal tenderness. Probably from pressure from the seroma on the labial area because it is the most dependent. Will continue to observe. With continued pressure, it may open up in which case it would need to be packed. If urinating becomes difficult, a seay catheter may need to be placed. With continued pressure and continued pain, I am leaning toward surgical drainage of the postop seroma. Will reassess in the morning to see if the bruised area is stable or if it continues to worsen. If it is enlarging, then operative intervention would be necessary with VAC placement. Besides leaving the wound open, I would also send tissue to Microbiology for culture. Post-discharge I would see her at the [facility] if surgery is done.
[2017-05-02 20:30] VITALS: BP 128/66; PULSE 101; RESP 16; TEMP 37.1; O2SAT 100
--- NOTE | 2017-05-02 21:45 | NURSING ---
Patients labia remains edematous, left side of labia remains ecchymotic. Upon this assessment area of ecchymosis seems to have become larger. Patient is still able to get up and down out of bed and is able to urinate. Athletic support remains on, and patient does state relief. Patient did c/o some discomfort where elastic band crosses incision site. ABD pad applied against incision site, patient stated relief. MARIE drain noted as putting out approx 80mls of sangious fluid so far this shift. Will continue to monitor. Oxycodone given at this time.
[2017-05-03] VITALS (20 sets, daily range): BP systolic 94–160; BP diastolic 47–94; PULSE 83–105; RESP 16–17; TEMP 36.4–37.1; O2SAT 93–100; BMI 32.3
--- NOTE | 2017-05-03 | THRO_PTH ---
PATIENT: ISIDORO PENG LOC: MS3 U#:[id number] AGE/SX: 32/F ROOM: MS310 RE04/30/[address]: Dr. Salvatore Reyes DO : 1985 BED: 1 DIS: 05/10/2017 SPEC #: [id number] RECD: 05/03/17 15:10 STATUS: RAFAELA CARMELA #: [id number] ANGELA: 05/03/17 00:[address]: Gigi Mendieta DEPT: SURGICAL PATHOLOGY RECD BY: Jaden Gregg ENTERED: 05/03/17 15:10 SP TYPE: THROMBUS OTHR DR: Dr. Bethel Jauregui III, MD Tissues: BLOOD CLOT, NOS Procedures: Surgery Specimen Level III HEADER OPERATION: Incision and drainage seroma/hematoma pubic area PRE-OP DIAGNOSIS: Infected seroma pubic area TISSUE SUBMITTED: Infected seroma/hematoma pubic area MICROSCOPIC DIAGNOSIS Infected seroma/hematoma of pubic area, excision: Skin with ulceration and associated acute and chronic inflammation, fibrosis and histiocytic reaction. Organizing hematoma with associated acute inflammation. AM:lucinda 05/04/17 MICROSCOPIC DESCRIPTION Slides are reviewed. GROSS DESCRIPTION Received in fixative is one container labeled with the patient's name and designated hematoma of pubic area. The specimen consists of multiple irregular fragments of yellow-pink soft tissue ranging in size from 1.5 to 16 cm. The largest fragment contains an ellipse of unremarkable skin with a healed scar. The scar measures 14 cm in greatest dimension. Also present in the specimen is a blood clot measuring 5 x 4 x 2 cm. No mass lesions are identified. Customer Manager sections are submitted in one cassette. / AM:lucinda 05/03/17 TC:2 CPT: 22711
[2017-05-03] MEDS: oxyCODONE 5 MG Tablet 15 MG PO ×4 (02:47→21:00)
[2017-05-03] MEDS: HYDROmorphone 1 MG/ML Syringe IV ×3 (04:51→19:43)
[2017-05-03 05:44] LABS: Anion Gap 9 (5-15); BUN 6 mg/dL (7-18); BUN/Creat Ratio 10.5 RATIO (10-20); Calcium,Total 8.3 mg/dL (8.5-10.1); Chloride 99 mmol/L (98-107); Creatinine, Serum 0.57 mg/dL (0.55-1.02); EST Glomerular Filtration Rate 131 mL/min (>60); Est Glom Filt Rate - Afr Amer 158 mL/min (>60); Estimated Creatinine Clearance 133.87 ml/min; Glucose 93 mg/dL (74-106); Potassium 3.7 mmol/L (3.5-5.1); Sodium Level 136 mmol/L (136-145)
[2017-05-03 06:31] LABS: Hematocrit 23.2 % (37-47); Hemoglobin 7.4 g/dl (12.0-15.0); Mean Corp Hgb Conc 31.9 g/gl (32-36); Mean Corpuscular Hgb 26.5 pg (27.0-32.0); Mean Corpuscular Volume 83.2 fL (81-99); Mean Platelet Vol. 10.5 fl (6.2-12.0); Platelet Count 407 K/mm3 (150-450); RBC Distribution Width SD 47.4 fl (35.1-43.9); Red Blood Count 2.79 M/mm3 (4.2-5.4); White Blood Count 5.8 K/mm3 (4.4-11.0)
[2017-05-03 06:32] LABS: Scan Indicated on CBC? Y/N NO
--- NOTE | 2017-05-03 07:13 | PCM.PN.BLA ---
Progress Note This morning the patient looked pale. She has persistent pain and swelling. Her Vital Signs were stable. There was no bleeding in the Edenilson drain. However her Hgb drifted down to 7.4. She was ahead in her I/O's by 6000 ml. Most of the decrease was probably IV dilution. She will be given 2 units of PRBC in preparation to going back to the OR today for incision and drainage and debridement. The CT showed a seroma, but some of the fluid may be a hematoma. Also will culture the tissue in order to better decide her antibiotic management. Also to make sure there is not a large hematoma present. The wound will be left open and a VAC will be applied. She understands the wound will be left open. She voiced understanding and wishes to proceed. The patient was informed of the risks and complications of the procedure including alternatives to surgery. These were discussed with the patient personally. The patient voices understanding and wishes to proceed.
[2017-05-03] MEDS: Iron Polysaccharide Complex 150 MG CAPSULE PO (08:07)
[2017-05-03] MEDS: Tamsulosin HCl 0.4 MG Capsule 0.8 MG PO (08:07)
[2017-05-03] MEDS: Doxycycline 100 MG CAPSULE PO (08:08)
[2017-05-03] MEDS: Ciprofloxacin 500 MG Tablet PO (08:08)
[2017-05-03] MEDS: hydroCHLOROthiazide 25 MG Tablet 12.5 MG PO (08:08)
[2017-05-03] MEDS: amLODIPine 10 MG Tablet PO (08:09)
[2017-05-03] MEDS: Lisinopril 40 MG Tablet PO ×2 (08:09→21:53)
[2017-05-03] MEDS: Labetalol 100 MG Tablet PO ×2 (08:10→21:53)
[2017-05-03 11:11] LABS: International Normalized Ratio 1.1; Prothrombin Time (Protime)PT. 14.2 SECONDS (11.7-14.9)
[2017-05-03 11:12] LABS: Partial Thromboplast Time 33.4 Seconds (24.1-36.2)
--- NOTE | 2017-05-03 13:24 | NURSING ---
PT TO OR @ 1300 VIA BED, BLOOD PRODUCTS STILL INFUSING.
[2017-05-03] MEDS: Piperacil/Tazobactam 3.375 GM/50 ML ML IV ×2 (13:38→22:18)
--- NOTE | 2017-05-03 14:35 | PCM.IMDPSTOP ---
Immediate Post-Op Note Date of Procedure: 05/03/17 Primary Surgeon/Physician: Gigi Mendieta licensed life and health agent: None Pre-Operative Diagnosis: Infected seroma lower anterior abdominal wall and pubic area. Post-Operative Diagnosis: Infected seroma/hematoma lower anterior abdominal wall and pubic area. Surgery/Procedure Performed:: Surgical preparation lower anterior abdominal wall and pubic area with incision and drainage and excisional debridement infected seroma/hematoma (250 cm2). Description of Surgical Findings:: 32-year-old woman presents with a painful soft tissue mass on her pubic area. This mass first developed after abdominal surgery done earlier in the Summer. Back in 2015 she had a gastric bypass procedure including clinic. It was a laparoscopic Og-en-Y procedure. At that time she weighed about 380 pounds and today she weighs about 200 pounds. In August 2016 she underwent an abdominal panniculectomy. After surgery she developed some bleeding was taken back to surgery the same day where she underwent incision and drainage of postop hematoma. She did okay postoperatively initially for about a month. At the end of September she noticed increased pain and redness and swelling in the right side of her abdominal wall near the incision. She went back to surgery on October 20, 2016 where she underwent incision and drainage of infected abdominal seroma. She was treated with antibiotics and wound care until healed. Throughout these procedures she developed increased scarring in the lower anterior abdominal wall area and this exacerbated her painful symptomatology in her pubic area where a large soft tissue masses located. She denies any recent infection of the soft tissue mass. Denies any trauma. Denies any drainage. Patient denies any fever. Today the patient underwent excision 8 cm painful soft tissue mass pubic area with 20 cm complex closure. Size of defect lower anterior abdominal wall and pubic area - 25 x 10 x 4 cm. Estimated Blood Loss: 50 ml. Specimen's removed: 1. Infected seroma/hematoma tissue lower anterior abdominal wall and pubic area to Pathology and Microbiology. 2. Infected seroma/hematoma tissue lower anterior abdominal wall and pubic area swab culture for MRSA by DNA PCR. Drains: None. Type of Anesthesia:: General - Admit VTE Documentation VTE Present on Admission: No VTE Mechan Device Prophylaxis: SCD's VTE Pharm Prophylaxis ordered?: No
[2017-05-03] MEDS: Lactated Ringers 1,000 ML 60 ML IV (15:55)
[2017-05-03 17:21] LABS: M R Staph aureus DNA By PCR Negative (Negative); Probe Check PASS; Staph aureus DNA By PCR POSITIVE (Negative)
[2017-05-03] MEDS: Furosemide 20 MG/2 ML VIAL 10 MG IV (19:43)
[2017-05-03] MEDS: diazePAM 5 MG Tablet PO (20:44)
--- NOTE | 2017-05-03 20:46 | PCM.OPRPT ---
Report of Operation Date of Procedure: 05/03/17 Pre-Operative Diagnosis: Infected seroma lower anterior abdominal wall and pubic area. Post-Operative Diagnosis: Infected seroma/hematoma lower anterior abdominal wall and pubic area. Surgery/Procedure Performed:: Surgical preparation lower anterior abdominal wall and pubic area with incision and drainage and excisional debridement infected seroma/hematoma (250 cm2). Description of Surgical Findings:: 32-year-old woman initially presented with a painful soft tissue mass on her pubic area. This mass first developed after abdominal surgery done earlier in the Summer. Back in 2015 she had a gastric bypass procedure including clinic. It was a laparoscopic Og-en-Y procedure. At that time she weighed about 380 pounds and today she weighs about 200 pounds. In August 2016 she underwent an abdominal panniculectomy. After surgery she developed some bleeding and was taken back to surgery the same day where she underwent incision and drainage of postop hematoma. She did okay postoperatively initially for about a month. At the end of September she noticed increased pain and redness and swelling in the right side of her abdominal wall near the incision. She went back to surgery on October 20, 2016 where she underwent incision and drainage of infected abdominal seroma. She was treated with antibiotics and wound care until healed. Throughout these procedures she developed increased scarring in the lower anterior abdominal wall area and this exacerbated her painful symptomatology in her pubic area where a large soft tissue mass was located. On 04/20/17, the patient underwent excision 8 cm painful soft tissue mass pubic area with 20 cm complex closure. Postop she developed increasing pain and redness on the right side of her pubic area. She then had increased temp at home and came to the ED. Her WBC was 14.9. She was admitted to the hospital and placed on IV antibiotics. CT showed a seroma which is expected and she still had a drain in place. There was no bleeding in the Edenilson drain. However she drifted down to 7.4. She was ahead in her I/O's by 6000 ml. Most of the decrease was probably IV dilution. She was given 2 units of PRBC and was taken back to the OR because of persistent pain and swelling. Also to make sure there is not a large hematoma present. The wound will be left open and a VAC will be applied. She understands the wound will be left open. She voiced understanding and wishes to proceed. The patient was informed of the risks and complications of the procedure including alternatives to surgery. These were discussed with the patient personally. The patient voices understanding and wishes to proceed. Size of defect lower anterior abdominal wall and pubic area - 25 x 10 x 4 cm. floor worker well service: None Type of Anesthesia:: General Specimen's removed: 1. Infected seroma/hematoma tissue lower anterior abdominal wall and pubic area to Pathology and Microbiology. 2. Infected seroma/hematoma tissue lower anterior abdominal wall and pubic area swab culture for MRSA by DNA PCR. Drains: None. Estimated Blood Loss (mL): 50 ml. Description of Procedure: Patient was taken to the OR in supine position and was placed under general anesthesia. The remaining drain was removed before prepping the patient. The patient was then prepped and draped in the usual fashion. SCD's were placed for DVT prophylaxis. Perioperative antibiotics were given intravenously. The previous incision in the lower anterior abdominal wall and pubic area was infiltrated with xylocaine with epinephrine. After waiting 5 minutes for the anesthetic to take effect, an incision and drainage was performed through the previous scar. There was a residual seroma that was milky as well as a small hematoma that was starting to look creamy as well, clinically indicative of an infection. About 50 ml of seroma and about 50 ml of hematoma clot. A curette was used to further debride the wound as well as to debride the beginning of capsular formation. Some fat necrosis was present that was sharply excised as an excisional debridement. Some of the tissue was sent to Microbiology for culture. The rest of the tissue was sent to Pathology for analysis to rule out carcinoma. The size of the wound in the lower anterior abdominal wall and pubic area after incision and drainage and excisional debridement was 25 x 10 x 4 cm or 250 cm2. The wound was copiously irrigated with saline. Hemostasis was obtained with electrocautery. The wound was then packed with Mepitel nonadherent dressing followed by Kerlix gauze with Betadine. This was followed by a dry Kerlix gauze and ABD pads for a compression dressing. She tolerated the procedure well and was sent to PACU in satisfactory condition. She will be sent back upstairs for further postop care. The VAC will be applied tomorrow. After discharge, she [facility]. Grafts/Implants Used: None. - Complications None. - Admit VTE Documentation VTE Present on Admission: No VTE Mechan Device Prophylaxis: SCD's VTE Pharm Prophylaxis ordered?: No
[2017-05-04] MEDS: oxyCODONE 5 MG Tablet 15 MG PO ×4 (01:22→17:43)
[2017-05-04 01:37] VITALS: BP 107/53; PULSE 87; RESP 16; TEMP 36.8; O2SAT 99
--- NOTE | 2017-05-04 01:58 | NURSING ---
1999 Spoke with Jerrell SILVA day shift states he verified with Dr. Mendieta to transfuse one unit blood.
[2017-05-04] MEDS: Piperacil/Tazobactam 3.375 GM/50 ML ML IV ×3 (05:34→22:23)
[2017-05-04] MEDS: diazePAM 5 MG Tablet PO (05:34)
[2017-05-04] MEDS: HYDROmorphone 1 MG/ML Syringe IV ×4 (05:35→20:16)
[2017-05-04 06:16] LABS: Hemoglobin 9.2 g/dl (12.0-15.0); Mean Corp Hgb Conc 32.9 g/gl (32-36); Mean Corpuscular Hgb 27.2 pg (27.0-32.0); Mean Corpuscular Volume 82.8 fL (81-99); Mean Platelet Vol. 10.4 fl (6.2-12.0); Platelet Count 464 K/mm3 (150-450); RBC Distribution Width CV 15.6 % (11.6-14.6); RBC Distribution Width SD 46.7 fl (35.1-43.9); Red Blood Count 3.38 M/mm3 (4.2-5.4); Scan Indicated on CBC? Y/N NO; White Blood Count 5.7 K/mm3 (4.4-11.0)
[2017-05-04 06:49] LABS: Anion Gap 8 (5-15); BUN 8 mg/dL (7-18); BUN/Creat Ratio 6.3 RATIO (10-20); Calcium,Total 8.3 mg/dL (8.5-10.1); Chloride 100 mmol/L (98-107); Creatinine, Serum 1.27 mg/dL (0.55-1.02); EST Glomerular Filtration Rate 52 mL/min (>60); Est Glom Filt Rate - Afr Amer 63 mL/min (>60); Estimated Creatinine Clearance 60.08 ml/min; Glucose 114 mg/dL (74-106); Potassium 4.3 mmol/L (3.5-5.1); Sodium Level 136 mmol/L (136-145)
[2017-05-04 08:00] VITALS: BP 108/55; PULSE 96; RESP 16; TEMP 37.6; O2SAT 97
[2017-05-04] MEDS: 0.9% NaCl Peripheral Flush Adult/Peds IV (08:46)
[2017-05-04] MEDS: Furosemide 20 MG Tablet PO (08:47)
[2017-05-04] MEDS: Tamsulosin HCl 0.4 MG Capsule 0.8 MG PO (08:47)
[2017-05-04] MEDS: Lisinopril 40 MG Tablet PO (08:47)
[2017-05-04] MEDS: amLODIPine 10 MG Tablet PO (08:47)
[2017-05-04] MEDS: Labetalol 100 MG Tablet PO (08:47)
[2017-05-04] MEDS: Iron Polysaccharide Complex 150 MG CAPSULE PO (08:48)
--- NOTE | 2017-05-04 09:05 | PCA ---
tori putting wound vac on pt
--- NOTE | 2017-05-04 09:42 | NURSING ---
wound photo: mid lower abdomen (anterior view)
--- NOTE | 2017-05-04 09:43 | NURSING ---
wound photo: mid lower abdomen (superior view looking down)
--- NOTE | 2017-05-04 10:00 | CASEMGMT ---
RICARDO BECKFORD discussed discharge planning with patient in regards to wound vac care. Patient stated that she would like [facility] to manage Wound Vac. Patient stated that she does not have a preference for [facility] and would like one in network with insurance. Referrals made to [facility], [facility], and [facility] which all declined referral. Referral was also made to [facility] who accepted to patient. Mcgrann requested wound vac changes be made Mon, Wed, Wed. JAMIE BECKFORD updated wound nurse regarding Mon, Wed, Wed vac changes and stated that would be fine and first vac change can be Wednesday05/07/17. RICARDO BECKFORD updated patient regarding HHC established with [facility]. RICARDO BECKFORD to continue to follow this patient and plan for a safe discharge.
[2017-05-04] MEDS: Lactated Ringers 1,000 ML 60 ML IV (12:18)
[2017-05-04 14:11] VITALS: BP 103/54; PULSE 88; RESP 16; TEMP 37.4; O2SAT 95
[2017-05-04 14:24] LABS: Vancomycin, Trough Level 24.3 ug/mL (5.0-15.0)
[2017-05-04 19:55] VITALS: BP 105/57; PULSE 89; RESP 16; TEMP 36.8; O2SAT 98
--- NOTE | 2017-05-04 20:46 | PCM.PN.SRG ---
Patient Problems: Active and Suspected Problems (Last Updated 04/23/17 @ 14:42 by Griselda Chou) Cellulitis of abdominal wall (Acute) Cellulitis of pubic region (Acute) Subjective: Postop #1 Patient has increased pain in the area of the VAC. - Physical Exam General: Alert, Oriented x3 HEENT: PERRLA, EOMI Neck: Supple Lungs: Clear to auscultation Cardiovascular: Regular rate, Regular Rhythm Abdomen: Soft, Non-Distended Skin: Ulcer/ Wound - Lower anterior abdominal wall and pubic area wound is stable. VAC in place. Pubic area has some swelling which should improve with the VAC. Neurological: Cranial nerves II-XII grossly intact Psych/Mental Status: Normal Affect, Appropriate Vital Signs Temp Pulse Resp BP Pulse Ox 98.2 F 89 16 105/57 L 98 05/04/17 19:55 05/04/17 19:55 05/04/17 19:55 05/04/17 19:55 05/04/17 19:55 Oxygen Delivery Method Room Air Weight: 201 lb 0.985 oz Body Mass Index (BMI) 32.3 Intake and Output for Last 24 Hours 05/02/17 05/03/17 05/04/17 23:59 23:59 23:59 Intake Total 3487 / 3487 2107 / 2107 2126 / 2126 Output Total 1215 / 1215 720 / 720 1200 / 1200 Balance 2272 / 2272 1387 / 1387 926 / 926 Microbiology Past 72 Hours 05/03/17 Unknown Gram Stain - Final Tissue - Other Wound Culture - Preliminary Staphylococcus aureus Laboratory Tests Past 24 Hrs 05/03/17 05/04/17 05/04/17 07:45 05:55 05:55 WBC 5.7 RBC 3.38 L Hgb 9.2 L Hct 28.0 L MCV 82.8 MCH 27.2 MCHC 32.9 RDW 15.6 H RDW Differential 46.7 H Plt Count 464 H MPV 10.4 Sodium 136 Potassium 4.3 Chloride 100 Carbon Dioxide 28.0 Anion Gap 8 BUN 8 Creatinine 1.27 H Estim Creat Clear Calc 60.08 Est GFR (MDRD) Af Amer 63 Est GFR (MDRD) Non-Af 52 L BUN/Creatinine Ratio 6.3 L Glucose 114 H Calcium 8.3 L Vancomycin Trough Crossmatch See Detail 05/04/17 13:52 WBC RBC Hgb Hct MCV MCH MCHC RDW RDW Differential Plt Count MPV Sodium Potassium Chloride Carbon Dioxide Anion Gap BUN Creatinine Estim Creat Clear Calc Est GFR (MDRD) Af Amer Est GFR (MDRD) Non-Af BUN/Creatinine Ratio Glucose Calcium Vancomycin Trough 24.3 H Crossmatch Assessment/Plan Active and Suspected Problems (Last Updated 04/23/17 @ 14:42 by Griselda Chou) Cellulitis of abdominal wall (Acute) Cellulitis of pubic region (Acute) 1. 8 cm painful soft tissue mass pubic area. 2. 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 3. Abdominal wall skin crease intertrigo. 4. s/p excision 8 cm painful soft tissue mass pubic area with 20 cm complex closure. 5. Cellulitis lower anterior abdominal wall and pubic area, improving. 6. Anemia of chronic disease, acute on chronic. 7. History of MRSA. 8. Acute kidney dysfunction with elevated creatinine. VAC in place. Will change three days per week at 150 mmHg continuous suction. With the increased pain from the VAC, will add a Duragesic Patch. Continue abdominal wall binder. Hgb stable at 8.2 from She has anemia of chronic disease with acute on chronic. Probable IV fluid dilution. She is positive 6000 ml in her I/O's. Continue Fe supplementation. She will followup with her PCP regarding her chronic anemia for evaluation since it is quite common to have anemia after gastric bypass surgery. Prealbumin quite low at 9.0. Encourage nutritional supplementation with protein to help the healing process. Continue Zosyn. Operative culture shows Staphylococcus aureus. She also had Vancomycin for history of MRSA and that has been stopped. Her Creatinine has increased to 1.27. Will watch closely. If it continues to rise then will need a medicine consult. Probably Vancomycin related. Will also stop her Lasix.
[2017-05-04] MEDS: fentaNYL 25 MCG Patch TRANSDERM. (22:23)
[2017-05-05] MEDS: oxyCODONE 5 MG Tablet 15 MG PO ×3 (03:15→12:55)
[2017-05-05 03:19] VITALS: BP 127/62; PULSE 90; RESP 18; TEMP 37.1; O2SAT 97
[2017-05-05 05:35] LABS: Hematocrit 25.4 % (37-47); Hemoglobin 8.2 g/dl (12.0-15.0); Mean Corp Hgb Conc 32.3 g/gl (32-36); Mean Corpuscular Volume 83.6 fL (81-99); Mean Platelet Vol. 10.1 fl (6.2-12.0); Platelet Count 410 K/mm3 (150-450); RBC Distribution Width CV 15.9 % (11.6-14.6); RBC Distribution Width SD 47.2 fl (35.1-43.9); Red Blood Count 3.04 M/mm3 (4.2-5.4); White Blood Count 6.5 K/mm3 (4.4-11.0)
[2017-05-05 05:38] LABS: Scan Indicated on CBC? Y/N NO
[2017-05-05 05:53] LABS: Anion Gap 9 (5-15); BUN 13 mg/dL (7-18); BUN/Creat Ratio 4.7 RATIO (10-20); Calcium,Total 8.3 mg/dL (8.5-10.1); Chloride 102 mmol/L (98-107); Creatinine, Serum 2.77 mg/dL (0.55-1.02); EST Glomerular Filtration Rate 21 mL/min (>60); Est Glom Filt Rate - Afr Amer 26 mL/min (>60); Estimated Creatinine Clearance 27.55 ml/min; Glucose 89 mg/dL (74-106); Potassium 4.3 mmol/L (3.5-5.1); Sodium Level 138 mmol/L (136-145)
[2017-05-05] MEDS: Piperacil/Tazobactam 3.375 GM/50 ML ML IV (06:13)
[2017-05-05] MEDS: Lactated Ringers 1,000 ML 60 ML IV (06:13)
[2017-05-05 08:17] VITALS: O2SAT 97
[2017-05-05] MEDS: Tamsulosin HCl 0.4 MG Capsule 0.8 MG PO (08:43)
[2017-05-05] MEDS: Iron Polysaccharide Complex 150 MG CAPSULE PO (08:44)
[2017-05-05 09:00] VITALS: BP 116/70; PULSE 88; RESP 16; TEMP 36.9; O2SAT 97
--- NOTE | 2017-05-05 09:32 | NURSING ---
VITALS REVIEWED FROM Meliton HURD, ELECTRONICS TECHNOLOGY INSTRUCTOR.
[2017-05-05] MEDS: amLODIPine 10 MG Tablet PO (09:54)
[2017-05-05] MEDS: Labetalol 100 MG Tablet PO ×2 (09:54→22:37)
[2017-05-05] MEDS: Lisinopril 40 MG Tablet PO (09:55)
[2017-05-05] MEDS: Ondansetron 4 MG/2 ML Vial IV (10:48)
--- NOTE | 2017-05-05 10:49 | NURSING ---
Patient went for a walk and had a small amount of brownish emesis afterwards. She requested something for the nausea and to have her wound vac checked because she felt like something pulled when she was dry heaving. This was reported to her nurse, Nicole
[2017-05-05] MEDS: HYDROmorphone 1 MG/ML Syringe IV ×2 (10:53→17:10)
[2017-05-05] MEDS: 0.9% Normal Saline 1,000 ML 150 ML IV (10:55)
--- NOTE | 2017-05-05 11:25 | US_ITS ---
STUDY: RENAL ULTRASOUND - COMPLETE REASON FOR EXAM: Female, 32 years old. TECHNIQUE: Ultrasound evaluation of the kidneys was performed with real-time and static diaz-scale imaging. COMPARISON: None. FINDINGS: RIGHT KIDNEY: with mild renal hypertrophy. The right kidney measures 14.1 x 7 x 6.4 cm. There is a normal cortex of the right kidney. The renalaki cortex measures 2.6 cm. There is no right renal mass or cyst. 6.5 mm nonobstructive right renal stone. There is no right hydronephrosis. DISTAL RIGHT URETER: There is non-visualization of the distal right ureter. There is no demonstrated right ureterovesical junction calculus. There is no demonstrated right ureteral jet. LEFT KIDNEY: with mild renal hypertrophy. The left kidney measures 15.1x5.9x6.2 cm. There is a normal cortex of the left kidney. The renal cortex measures 2.2 cm. There is no left renal mass or cyst. There are no left renal calculi. There is no left hydronephrosis. DISTAL LEFT URETER: There is non-visualization of the distal left ureter. There is no demonstrated left ureterovesical junction calculus. There is no demonstrated left ureteral jet. AORTA: There is obscuration of the abdominal aorta by overlying bowel gas I.V.C.: The IVC is obscured. BLADDER: Not seen US/Kidney and Bladder IMPRESSION: Nonobstructive right renal stone. Electronically Signed: Robert Wolfe MD at 18:23 EST , Service support ,
--- NOTE | 2017-05-05 11:26 | PCM.CONS.GEN ---
Problem List (1) ERIKA (acute kidney injury) Status: Acute (2) Intertrigo Status: Chronic Comment: abdominal wall skin crease intertrigo (3) Localized adiposity Status: Chronic Comment: 8 cm painful soft tissue mass pubic area (4) Excessive body weight loss Status: Chronic Comment: after gastric bypass procedure (5) Cellulitis of pubic region Status: Acute (6) HTN (hypertension) Status: Chronic (7) Nephrolithiasis Status: Chronic (8) Ovarian cyst Status: Chronic Reason for Consult Date of Consultation: 05/05/17 Reason for Consultation: consult requested by Dr. Mendieta for ERIKA. History of Present Illness: The patient is a 32 year old F presents w abdominal pain, fever. Pt was found to have abd wall cellulitis on the . On the , she underwent an I+D of infected seroma/hematoma of the abdominal wall and pubic area by Dr. Mendieta. Pt was started on vancomycin on 05/03. On 05/04, her Creatinine jumped from 0.57 to 1.27; and today, her creatinine is 2.77. Pt does have a h/o chronic nephrolithiasis and may get exacerbations of her creatinine, but is currently w/o flank pain at this time. The patient's vancomycin has been d/c'd.[] Past Medical History Past Medical History (Chronic Problems): Chronic Problems (Last Updated 04/23/17 @ 14:42 by Griselda Chou) Intertrigo (Chronic) abdominal wall skin crease intertrigo Localized adiposity (Chronic) 8 cm painful soft tissue mass pubic area Excessive body weight loss (Chronic) after gastric bypass procedure HTN (hypertension) (Chronic) Nephrolithiasis (Chronic) Ovarian cyst (Chronic) Allergies methocarbamol Allergy (Verified 04/30/17 09:40) Chest tightness gabapentin Adverse Reaction (Verified 04/30/17 09:40) MADE ME WALK SIDEWAYS ketorolac tromethamine [From Toradol] Adverse Reaction (Verified 04/30/17 09:40) Upset Stomach NSAIDS (Non-Steroidal Anti-Inflamma Adverse Reaction (Verified 04/30/17 09:40) gastric bipass not supposed to take tramadol Adverse Reaction (Verified 04/30/17 09:40) Upset Stomach Home Medications: Ambulatory Orders Medication Instructions Recorded Amitriptyline HCl [Elavil] 50 mg PO QHS PRN 04/30/17 Amlodipine Besylate [Norvasc] 10 mg PO DAILY 04/30/17 Ergocalciferol [Vitamin D] 50,000 unit PO TUTH 04/30/17 Etonogestrel [Nexplanon] 68 mg SQ UD 04/30/17 Hydrochlorothiazide [Hctz] 12.5 mg PO DAILY 04/30/17 Hydrocodone Bitart/Apap 5-325 1 tablet PO Q6H PRN PRN 04/30/17 [Ayr 5MG-325MG] Labetalol [Trandate] 100 mg PO BID 04/30/17 Lisinopril [Zestril] 40 mg PO BID 04/30/17 Potassium Chloride [K-Dur] 10 meq PO BID 04/30/17 Tamsulosin HCl [Flomax] 0.8 mg PO DAILY 04/30/17 HydromorphONE [Dilaudid] 2 mg PO 4X/DAY PRN PRN 05/01/17 Surgical History: cholecystectomy, gastric bypass, - - gastric bypass 04/18/15,thyroid nodular surgery, I+D abdominal wall and pelvic mass 05/03/17, Smoking Status: Never smoker - *Family History Maternal History Items: Hypertension Paternal History Items: Hypertension Review of Systems Constitutional: Denies: Chills, Fever, Weight Change Eyes: Denies: Blurred vision, Double vision HEENT: Denies: Head Aches, Sinus Congestion, Sinus Drainage Cardiovascular: Denies: Chest Pain, Palpitations Respiratory: Denies: Cough, Shortness of breath at rest, Sputum production Gastrointestinal: Reports: Abdominal Pain - post-op, Vomiting. Denies: Diarrhea, Nausea Genitourinary: Denies: Dysuria, Hematuria Musculoskeletal: Denies: Joint Pain, Joint Tenderness Skin: Denies: Rash, Wounds Neurological: Denies: Numbness, Tingling, Focal weakness Hematologic/ Lymphatic: Denies: Easy Bruising, Easy Bleeding, Hx of blood clot Patient Problems: Active and Suspected Problems (Last Updated 04/23/17 @ 14:42 by Griselda Chou) ERIKA (acute kidney injury) (Acute) Cellulitis of abdominal wall (Acute) Cellulitis of pubic region (Acute) - Physical Exam General: Alert, Cooperative, No apparent distress HEENT: Atraumatic, Normocephalic Neck: No Nodes, Thyroid Normal Size and Texture Lungs: Clear to auscultation, Normal air movement, No rhonchi, No wheeze Cardiovascular: Regular rate, Regular Rhythm, Normal S1, Normal S2, No murmurs Abdomen: Bowel Sounds Present, Soft, Non Tender, Non-Distended, No Hepato-splenomegaly Extremities: No edema, No Calf Tenderness Psych/Mental Status: Normal Affect, Appropriate Vital Signs Temp Pulse Resp BP Pulse Ox 36.9 C 88 16 116/70 97 05/05/17 09:00 05/05/17 09:00 05/05/17 09:00 05/05/17 09:00 05/05/17 09:00 Oxygen Delivery Method Room Air Weight: 91.2 kg Body Mass Index (BMI) 32.3 Intake and Output for Last 24 Hours 05/03/17 05/04/17 05/05/17 23:59 23:59 23:59 Intake Total 2107 / 2107 2126 / 2126 3040 / 3040 Output Total 720 / 720 1200 / 1200 Balance 1387 / 1387 926 / 926 3040 / 3040 Microbiology Past 72 Hours 05/03/17 Unknown Gram Stain - Final Tissue - Other Wound Culture - Final Staphylococcus aureus Anaerobic Culture - Preliminary Checking for anaerobes, further studies to follow. Laboratory Tests Past 24 Hrs 05/04/17 05/05/17 05/05/17 13:52 05:12 05:12 WBC 6.5 RBC 3.04 L Hgb 8.2 L Hct 25.4 L MCV 83.6 MCH 27.0 MCHC 32.3 RDW 15.9 H RDW Differential 47.2 H Plt Count 410 MPV 10.1 Sodium 138 Potassium 4.3 Chloride 102 Carbon Dioxide 27.0 Anion Gap 9 BUN 13 Creatinine 2.77 H Estim Creat Clear Calc 27.55 Est GFR (MDRD) Af Amer 26 L Est GFR (MDRD) Non-Af 21 L BUN/Creatinine Ratio 4.7 L Glucose 89 Calcium 8.3 L Vancomycin Trough 24.3 H Assessment/Plan Active and Suspected Problems (Last Updated 04/23/17 @ 14:42 by Griselda Chou) ERIKA (acute kidney injury) (Acute) Cellulitis of abdominal wall (Acute) Cellulitis of pubic region (Acute) 1. ERIKA: I suspect related to the vancomycin given the timing Vanc has been d/c'd Additionally, I have d/c'd the patient's lisinopril and lasix check urine studies, renal US IVF If worse 05/06, consider nephrology consult 2. Abd wall cellulitis + MSSA currently on Zosyn consult ID for further recs given the ERIKA Thank you for the consult, will follow with you. Code Visit Inpatient E&M: 14642 Init Hosp L2
--- NOTE | 2017-05-05 11:36 | CON.PCM_ITS ---
Problem List (1) ERIKA (acute kidney injury) Status: Acute (2) Intertrigo Status: Chronic Comment: abdominal wall skin crease intertrigo (3) Localized adiposity Status: Chronic Comment: 8 cm painful soft tissue mass pubic area (4) Excessive body weight loss Status: Chronic Comment: after gastric bypass procedure (5) Cellulitis of pubic region Status: Acute (6) HTN (hypertension) Status: Chronic (7) Nephrolithiasis Status: Chronic (8) Ovarian cyst Status: Chronic Reason for Consult Date of Consultation: 05/05/17 Reason for Consultation: consult requested by Dr. Mendieta for ERIKA. History of Present Illness: The patient is a 32 year old F presents w abdominal pain, fever. Pt was found to have abd wall cellulitis on the . On the , she underwent an I+D of infected seroma/hematoma of the abdominal wall and pubic area by Dr. Mendieta. Pt was started on vancomycin on 05/03. On 05/04, her Creatinine jumped from 0.57 to 1.27; and today, her creatinine is 2.77. Pt does have a h/o chronic nephrolithiasis and may get exacerbations of her creatinine, but is currently w/ o flank pain at this time. The patient's vancomycin has been d/c'd.[] Past Medical History Past Medical History (Chronic Problems): Chronic Problems (Last Updated 04/23/17 @ 14:42 by Griselda Chou) Intertrigo (Chronic) abdominal wall skin crease intertrigo Localized adiposity (Chronic) 8 cm painful soft tissue mass pubic area Excessive body weight loss (Chronic) after gastric bypass procedure HTN (hypertension) (Chronic) Nephrolithiasis (Chronic) Ovarian cyst (Chronic) Allergies methocarbamol Allergy (Verified 04/30/17 09:40) Chest tightness gabapentin Adverse Reaction (Verified 04/30/17 09:40) MADE ME WALK SIDEWAYS ketorolac tromethamine [From Toradol] Adverse Reaction (Verified 04/30/17 09:40) Upset Stomach NSAIDS (Non-Steroidal Anti-Inflamma Adverse Reaction (Verified 04/30/17 09:40) gastric bipass not supposed to take tramadol Adverse Reaction (Verified 04/30/17 09:40) Upset Stomach Home Medications: Ambulatory Orders Medication Instructions Recorded Amitriptyline HCl [Elavil] 50 mg PO QHS PRN 04/30/17 Amlodipine Besylate [Norvasc] 10 mg PO DAILY 04/30/17 Ergocalciferol [Vitamin D] 50,000 unit PO TUTH 04/30/17 Etonogestrel [Nexplanon] 68 mg SQ UD 04/30/17 Hydrochlorothiazide [Hctz] 12.5 mg PO DAILY 04/30/17 Hydrocodone Bitart/Apap 5-325 1 tablet PO Q6H PRN PRN 04/30/17 [[place] 5MG-325MG] Labetalol [Trandate] 100 mg PO BID 04/30/17 Lisinopril [Zestril] 40 mg PO BID 04/30/17 Potassium Chloride [K-Dur] 10 meq PO BID 04/30/17 Tamsulosin HCl [Flomax] 0.8 mg PO DAILY 04/30/17 HydromorphONE [Dilaudid] 2 mg PO 4X/DAY PRN PRN 05/01/17 Surgical History: cholecystectomy, gastric bypass, - - gastric bypass 04/18/15, thyroid nodular surgery, I+D abdominal wall and pelvic mass 05/03/17, Smoking Status: Never smoker - *Family History Maternal History Items: Hypertension Paternal History Items: Hypertension Review of Systems Constitutional: Denies: Chills, Fever, Weight Change Eyes: Denies: Blurred vision, Double vision HEENT: Denies: Head Aches, Sinus Congestion, Sinus Drainage Cardiovascular: Denies: Chest Pain, Palpitations Respiratory: Denies: Cough, Shortness of breath at rest, Sputum production Gastrointestinal: Reports: Abdominal Pain - post-op, Vomiting. Denies: Diarrhea , Nausea Genitourinary: Denies: Dysuria, Hematuria Musculoskeletal: Denies: Joint Pain, Joint Tenderness Skin: Denies: Rash, Wounds Neurological: Denies: Numbness, Tingling, Focal weakness Hematologic/ Lymphatic: Denies: Easy Bruising, Easy Bleeding, Hx of blood clot Patient Problems: Active and Suspected Problems (Last Updated 04/23/17 @ 14:42 by Griselda Chou) ERIKA (acute kidney injury) (Acute) Cellulitis of abdominal wall (Acute) Cellulitis of pubic region (Acute) - Physical Exam General: Alert, Cooperative, No apparent distress HEENT: Atraumatic, Normocephalic Neck: No Nodes, Thyroid Normal Size and Texture Lungs: Clear to auscultation, Normal air movement, No rhonchi, No wheeze Cardiovascular: Regular rate, Regular Rhythm, Normal S1, Normal S2, No murmurs Abdomen: Bowel Sounds Present, Soft, Non Tender, Non-Distended, No Hepato- splenomegaly Extremities: No edema, No Calf Tenderness Psych/Mental Status: Normal Affect, Appropriate Vital Signs Temp Pulse Resp BP Pulse Ox 36.9 C 88 16 116/70 97 05/05/17 09:00 05/05/17 09:00 05/05/17 09:00 05/05/17 09:00 05/05/17 09:00 Oxygen Delivery Method Room Air Weight: 91.2 kg Body Mass Index (BMI) 32.3 Intake and Output for Last 24 Hours 05/03/17 05/04/17 05/05/17 23:59 23:59 23:59 Intake Total 2107 / 2107 2126 / 2126 3040 / 3040 Output Total 720 / 720 1200 / 1200 Balance 1387 / 1387 926 / 926 3040 / 3040 Microbiology Past 72 Hours 05/03/17 Unknown Gram Stain - Final Tissue - Other Wound Culture - Final Staphylococcus aureus Anaerobic Culture - Preliminary Checking for anaerobes, further studies to follow. Laboratory Tests Past 24 Hrs 05/04/17 05/05/17 05/05/17 13:52 05:12 05:12 WBC 6.5 RBC 3.04 L Hgb 8.2 L Hct 25.4 L MCV 83.6 MCH 27.0 MCHC 32.3 RDW 15.9 H RDW Differential 47.2 H Plt Count 410 MPV 10.1 Sodium 138 Potassium 4.3 Chloride 102 Carbon Dioxide 27.0 Anion Gap 9 BUN 13 Creatinine 2.77 H Estim Creat Clear Calc 27.55 Est GFR (MDRD) Af Amer 26 L Est GFR (MDRD) Non-Af 21 L BUN/Creatinine Ratio 4.7 L Glucose 89 Calcium 8.3 L Vancomycin Trough 24.3 H Assessment/Plan Active and Suspected Problems (Last Updated 04/23/17 @ 14:42 by Griselda Chou) ERIKA (acute kidney injury) (Acute) Cellulitis of abdominal wall (Acute) Cellulitis of pubic region (Acute) 1. ERIKA: * I suspect related to the vancomycin given the timing * Vanc has been d/c'd * Additionally, I have d/c'd the patient's lisinopril and lasix * check urine studies, renal US * IVF * If worse 05/06, consider nephrology consult 2. Abd wall cellulitis * + MSSA * currently on Zosyn * consult ID for further recs given the ERIKA Thank you for the consult, will follow with you. Code Visit Inpatient E&M: 03659 Init Hosp L2
[2017-05-05 12:26] LABS: Mucous, Urine 0 SEEN /hpf (<or=2+); Red Blood Cells-Urine 0 SEEN /hpf (0-5); White Blood Cells 0 SEEN /hpf (0-5)
--- NOTE | 2017-05-05 12:46 | PCM.HP.ID ---
Problem List (1) Cellulitis of abdominal wall Status: Acute Reason for Consult: cellulitis Consulted by: Dr. Reyes History of Present Illness: The patient is a 32 year old F with prior gastric bypass in 2015, followed by panniculectomy 08/2016 at [facility] complicated post-op hematoma and then infected seroma. Taken back to OR at end of March by Dr. Mendieta for removal of painful suprapubic mass. About a week later, developed fever and chills with worsened redness and swelling around surgical site and pubic area. Admitted here 04/30, started on vanc/zosyn/clinda, changed to doxy/cipro on 05/02, now remains on vanc/zosyn. Taken to OR 05/[address] Mendieta for debridement of 13x2cm collection seen on CT. Wound vac placed. No further fever since admission. Cr has been increasing past 2 days. She does have h/o recurrent kidney stones; may have some R flank pain, but difficult to tell currently. Pubic redness slightly improved, but still significant swelling. PCR and cxs with MSSA. Full ROS performed and neg except as noted above. Mild headache. Some n/v this AM. - Medical History Past Medical History (Chronic Problems): Chronic Problems (Last Updated 04/23/17 @ 14:42 by Griselda Chou) Intertrigo (Chronic) abdominal wall skin crease intertrigo Localized adiposity (Chronic) 8 cm painful soft tissue mass pubic area Excessive body weight loss (Chronic) after gastric bypass procedure HTN (hypertension) (Chronic) Nephrolithiasis (Chronic) Ovarian cyst (Chronic) Allergies/Adverse Reactions: Allergies methocarbamol Allergy (Verified 04/30/17 09:40) Chest tightness gabapentin Adverse Reaction (Verified 04/30/17 09:40) MADE ME WALK SIDEWAYS ketorolac tromethamine [From Toradol] Adverse Reaction (Verified 04/30/17 09:40) Upset Stomach NSAIDS (Non-Steroidal Anti-Inflamma Adverse Reaction (Verified 04/30/17 09:40) gastric bipass not supposed to take tramadol Adverse Reaction (Verified 04/30/17 09:40) Upset Stomach Home Medications: Ambulatory Orders Medication Instructions Recorded Amitriptyline HCl [Elavil] 50 mg PO QHS PRN 04/30/17 Amlodipine Besylate [Norvasc] 10 mg PO DAILY 04/30/17 Ergocalciferol [Vitamin D] 50,000 unit PO TUTH 04/30/17 Etonogestrel [Nexplanon] 68 mg SQ UD 04/30/17 Hydrochlorothiazide [Hctz] 12.5 mg PO DAILY 04/30/17 Hydrocodone Bitart/Apap 5-325 1 tablet PO Q6H PRN PRN 04/30/17 [[place] 5MG-325MG] Labetalol [Trandate] 100 mg PO BID 04/30/17 Lisinopril [Zestril] 40 mg PO BID 04/30/17 Potassium Chloride [K-Dur] 10 meq PO BID 04/30/17 Tamsulosin HCl [Flomax] 0.8 mg PO DAILY 04/30/17 HydromorphONE [Dilaudid] 2 mg PO 4X/DAY PRN PRN 05/01/17 - Social History Tobacco Use: non-smoker Vital Signs Temp Pulse Resp BP Pulse Ox 98.4 F 88 16 116/70 97 05/05/17 09:00 05/05/17 09:00 05/05/17 09:00 05/05/17 09:00 05/05/17 09:00 Oxygen Delivery Method Room Air Weight: 91.2 kg Body Mass Index (BMI) 32.3 Microbiology Past 72 Hours 05/03/17 Unknown Gram Stain - Final Tissue - Other Wound Culture - Final Staphylococcus aureus Anaerobic Culture - Preliminary Checking for anaerobes, further studies to follow. Laboratory Tests Past 24 Hrs 05/04/17 05/05/17 05/05/17 13:52 05:12 05:12 WBC 6.5 RBC 3.04 L Hgb 8.2 L Hct 25.4 L MCV 83.6 MCH 27.0 MCHC 32.3 RDW 15.9 H RDW Differential 47.2 H Plt Count 410 MPV 10.1 Sodium 138 Potassium 4.3 Chloride 102 Carbon Dioxide 27.0 Anion Gap 9 BUN 13 Creatinine 2.77 H Estim Creat Clear Calc 27.55 Est GFR (MDRD) Af Amer 26 L Est GFR (MDRD) Non-Af 21 L BUN/Creatinine Ratio 4.7 L Glucose 89 Calcium 8.3 L Urine Color Urine Clarity Urine pH Ur Specific [place] Urine Protein Urine Glucose (UA) Urine Ketones Urine Occult Blood Urine Nitrite Urine Bilirubin Urine Urobilinogen Ur Leukocyte Esterase Urine RBC Urine WBC Ur Squamous Epith Cells Urine Bacteria Urine Mucus Ur Random Sodium Urine Creatinine Vancomycin Trough 24.3 H 05/05/17 05/05/17 05/05/17 12:17 12:17 12:17 WBC RBC Hgb Hct MCV MCH MCHC RDW RDW Differential Plt Count MPV Sodium Potassium Chloride Carbon Dioxide Anion Gap BUN Creatinine Estim Creat Clear Calc Est GFR (MDRD) Af Amer Est GFR (MDRD) Non-Af BUN/Creatinine Ratio Glucose Calcium Urine Color Pending Urine Clarity Pending Urine pH Pending Ur Specific [place] Pending Urine Protein Pending Urine Glucose (UA) Pending Urine Ketones Pending Urine Occult Blood Pending Urine Nitrite Pending Urine Bilirubin Pending Urine Urobilinogen Pending Ur Leukocyte Esterase Pending Urine RBC Pending Urine WBC Pending Ur Squamous Epith Cells Pending Urine Bacteria Pending Urine Mucus Pending Ur Random Sodium Pending Urine Creatinine Pending Vancomycin Trough - Other Studies Radiology: [] reviewed Other Studies: [] Route of nutrition/ use of supplements: [] Nutritional Intake: [] IV Site: [] Adhikari Catheter: [] - Physical Exam General: Alert, Oriented x3, Cooperative, No apparent distress HEENT: Atraumatic, PERRLA, EOMI Neck: Supple, No Nodes Lungs: Clear to auscultation, Normal air movement Cardiovascular: Regular rate, Regular Rhythm, Murmur Abdomen: Bowel Sounds Present, Soft, Non Tender, Non-Distended Extremities: No edema Skin: - - Suprapubic wound vac in place; swelling and mild erythema over pubic area. No induration. IV Site: Peripheral, without redness Musculoskeletal: No Tenderness to Palpation of Joints or Extremities Neurological: Cranial nerves II-XII grossly intact - Assessment/Plan Antibiotics: [] Assessment/Plan: [] Active and Suspected Problems (Last Updated 04/23/17 @ 14:42 by Griselda Chou) ERIKA (acute kidney injury) (Acute) Cellulitis of abdominal wall (Acute) Cellulitis of pubic region (Acute) MSSA abd wall abscess/hematoma after surgery 04/20/[address] Mendieta - taken back to OR 05/03, cx and pcr (+) for MSSA. Now with ERIKA. Has h/o recurrent kidney stones. Urine eos and renal u/s pending. Vanc trough was at goal 05/02 and only mildly elevated yesterday, so vanc seems less likely to be the primary crew car driver of her ERIKA. Vanc has been held. Stop vanc/zosyn. Will change abx to cefazolin and flagyl for narrower coverage based on cx results and lower risk of nephrotoxicity. Thank you, will follow.
--- NOTE | 2017-05-05 12:57 | CON.PCM_ITS ---
Problem List (1) Cellulitis of abdominal wall Status: Acute Reason for Consult: cellulitis Consulted by: Dr. Reyes History of Present Illness: The patient is a 32 year old F with prior gastric bypass in 2015, followed by panniculectomy 08/2016 at [facility] complicated post-op hematoma and then infected seroma. Taken back to OR at end of March by Dr. Menditea for removal of painful suprapubic mass. About a week later, developed fever and chills with worsened redness and swelling around surgical site and pubic area. Admitted here 04/30, started on vanc/zosyn/clinda, changed to doxy/cipro on 05/02, now remains on vanc /zosyn. Taken to OR 05/[address] Mendieta for debridement of 13x2cm collection seen on CT. Wound vac placed. No further fever since admission. Cr has been increasing past 2 days. She does have h/o recurrent kidney stones; may have some R flank pain, but difficult to tell currently. Pubic redness slightly improved, but still significant swelling. PCR and cxs with MSSA. Full ROS performed and neg except as noted above. Mild headache. Some n/v this AM. - Medical History Past Medical History (Chronic Problems): Chronic Problems (Last Updated 04/23/17 @ 14:42 by Griselda Chou) Intertrigo (Chronic) abdominal wall skin crease intertrigo Localized adiposity (Chronic) 8 cm painful soft tissue mass pubic area Excessive body weight loss (Chronic) after gastric bypass procedure HTN (hypertension) (Chronic) Nephrolithiasis (Chronic) Ovarian cyst (Chronic) Allergies/Adverse Reactions: Allergies methocarbamol Allergy (Verified 04/30/17 09:40) Chest tightness gabapentin Adverse Reaction (Verified 04/30/17 09:40) MADE ME WALK SIDEWAYS ketorolac tromethamine [From Toradol] Adverse Reaction (Verified 04/30/17 09:40) Upset Stomach NSAIDS (Non-Steroidal Anti-Inflamma Adverse Reaction (Verified 04/30/17 09:40) gastric bipass not supposed to take tramadol Adverse Reaction (Verified 04/30/17 09:40) Upset Stomach Home Medications: Ambulatory Orders Medication Instructions Recorded Amitriptyline HCl [Elavil] 50 mg PO QHS PRN 04/30/17 Amlodipine Besylate [Norvasc] 10 mg PO DAILY 04/30/17 Ergocalciferol [Vitamin D] 50,000 unit PO TUTH 04/30/17 Etonogestrel [Nexplanon] 68 mg SQ UD 04/30/17 Hydrochlorothiazide [Hctz] 12.5 mg PO DAILY 04/30/17 Hydrocodone Bitart/Apap 5-325 1 tablet PO Q6H PRN PRN 04/30/17 [[place] 5MG-325MG] Labetalol [Trandate] 100 mg PO BID 04/30/17 Lisinopril [Zestril] 40 mg PO BID 04/30/17 Potassium Chloride [K-Dur] 10 meq PO BID 04/30/17 Tamsulosin HCl [Flomax] 0.8 mg PO DAILY 04/30/17 HydromorphONE [Dilaudid] 2 mg PO 4X/DAY PRN PRN 05/01/17 - Social History Tobacco Use: non-smoker Vital Signs Temp Pulse Resp BP Pulse Ox 98.4 F 88 16 116/70 97 05/05/17 09:00 05/05/17 09:00 05/05/17 09:00 05/05/17 09:00 05/05/17 09:00 Oxygen Delivery Method Room Air Weight: 91.2 kg Body Mass Index (BMI) 32.3 Microbiology Past 72 Hours 05/03/17 Unknown Gram Stain - Final Tissue - Other Wound Culture - Final Staphylococcus aureus Anaerobic Culture - Preliminary Checking for anaerobes, further studies to follow. Laboratory Tests Past 24 Hrs 05/04/17 05/05/17 05/05/17 13:52 05:12 05:12 WBC 6.5 RBC 3.04 L Hgb 8.2 L Hct 25.4 L MCV 83.6 MCH 27.0 MCHC 32.3 RDW 15.9 H RDW Differential 47.2 H Plt Count 410 MPV 10.1 Sodium 138 Potassium 4.3 Chloride 102 Carbon Dioxide 27.0 Anion Gap 9 BUN 13 Creatinine 2.77 H Estim Creat Clear Calc 27.55 Est GFR (MDRD) Af Amer 26 L Est GFR (MDRD) Non-Af 21 L BUN/Creatinine Ratio 4.7 L Glucose 89 Calcium 8.3 L Urine Color Urine Clarity Urine pH Ur Specific [place] Urine Protein Urine Glucose (UA) Urine Ketones Urine Occult Blood Urine Nitrite Urine Bilirubin Urine Urobilinogen Ur Leukocyte Esterase Urine RBC Urine WBC Ur Squamous Epith Cells Urine Bacteria Urine Mucus Ur Random Sodium Urine Creatinine Vancomycin Trough 24.3 H 05/05/17 05/05/17 05/05/17 12:17 12:17 12:17 WBC RBC Hgb Hct MCV MCH MCHC RDW RDW Differential Plt Count MPV Sodium Potassium Chloride Carbon Dioxide Anion Gap BUN Creatinine Estim Creat Clear Calc Est GFR (MDRD) Af Amer Est GFR (MDRD) Non-Af BUN/Creatinine Ratio Glucose Calcium Urine Color Pending Urine Clarity Pending Urine pH Pending Ur Specific [place] Pending Urine Protein Pending Urine Glucose (UA) Pending Urine Ketones Pending Urine Occult Blood Pending Urine Nitrite Pending Urine Bilirubin Pending Urine Urobilinogen Pending Ur Leukocyte Esterase Pending Urine RBC Pending Urine WBC Pending Ur Squamous Epith Cells Pending Urine Bacteria Pending Urine Mucus Pending Ur Random Sodium Pending Urine Creatinine Pending Vancomycin Trough - Other Studies Radiology: [] reviewed Other Studies: [] Route of nutrition/ use of supplements: [] Nutritional Intake: [] IV Site: [] Adhikari Catheter: [] - Physical Exam General: Alert, Oriented x3, Cooperative, No apparent distress HEENT: Atraumatic, PERRLA, EOMI Neck: Supple, No Nodes Lungs: Clear to auscultation, Normal air movement Cardiovascular: Regular rate, Regular Rhythm, Murmur Abdomen: Bowel Sounds Present, Soft, Non Tender, Non-Distended Extremities: No edema Skin: - - Suprapubic wound vac in place; swelling and mild erythema over pubic area. No induration. IV Site: Peripheral, without redness Musculoskeletal: No Tenderness to Palpation of Joints or Extremities Neurological: Cranial nerves II-XII grossly intact - Assessment/Plan Antibiotics: [] Assessment/Plan: [] Active and Suspected Problems (Last Updated 04/23/17 @ 14:42 by Griselda Chou) ERIKA (acute kidney injury) (Acute) Cellulitis of abdominal wall (Acute) Cellulitis of pubic region (Acute) MSSA abd wall abscess/hematoma after surgery 04/20/[address] Mendieta - taken back to OR 05/03, cx and pcr (+) for MSSA. Now with ERIKA. Has h/o recurrent kidney stones. Urine eos and renal u/s pending. Vanc trough was at goal 05/02 and only mildly elevated yesterday, so vanc seems less likely to be the primary star route mail driver of her ERIKA. Vanc has been held. Stop vanc/zosyn. Will change abx to cefazolin and flagyl for narrower coverage based on cx results and lower risk of nephrotoxicity. Thank you, will follow.
[2017-05-05 12:58] LABS: Urine Sodium 90 mmol/L (Not Establ.)
[2017-05-05 13:01] LABS: Color, Urine Yellow (Yellow); Glucose, Dipstick Normal (Normal); Ketone-Dipstick Negative (Negative); Leukocyte Esterase-Dipstick Negative /ul (Negative); Nitrite-Dipstick Negative (Negative); Occult Blood-Urine Negative /ul (Negative); Protein-Dipstick 15 mg/dl (Negative); Specific Gravity, Urine 1.005 (1.002-1.030); Urine Bilirubin Dipstick Negative (Negative); Urine Clarity Clear (Clear); Urine Urobilinogen Normal (Normal)
[2017-05-05 13:09] LABS: Bacteria RARE /hpf (None Seen); Squamous Epithelial Cells - UA 0-5 SEEN /hpf (5-10)
[2017-05-05 13:27] VITALS: BP 116/53; PULSE 79; RESP 16; TEMP 37.1; O2SAT 95
[2017-05-05] MEDS: metroNIDAZOLE 500 MG Tablet PO ×2 (15:26→22:37)
[2017-05-05] MEDS: Cefazolin 2 GM in 0.9% Normal Saline 100 ML IV (15:26)
--- NOTE | 2017-05-05 19:39 | PCM.PN.SRG ---
Patient Problems: Active and Suspected Problems (Last Updated 04/23/17 @ 14:42 by Griselda Chou) ERIKA (acute kidney injury) (Acute) Cellulitis of abdominal wall (Acute) Cellulitis of pubic region (Acute) Subjective: Postop #2 Patient complains of wound pain mostly from the VAC. - Physical Exam General: Alert, Oriented x3 HEENT: PERRLA, EOMI Neck: Supple Lungs: Clear to auscultation Cardiovascular: Regular rate, Regular Rhythm Abdomen: Soft, Non-Distended Skin: Ulcer/ Wound - VAC in place. Moderate drainage in the canister. Neurological: Cranial nerves II-XII grossly intact Psych/Mental Status: Normal Affect, Appropriate Vital Signs Temp Pulse Resp BP Pulse Ox 98.8 F 79 16 116/53 L 95 05/05/17 13:27 05/05/17 13:27 05/05/17 13:27 05/05/17 13:27 05/05/17 13:27 Oxygen Delivery Method Room Air Weight: 201 lb 0.985 oz Body Mass Index (BMI) 32.3 Intake and Output for Last 24 Hours 05/03/17 05/04/17 05/05/17 23:59 23:59 23:59 Intake Total 2107 / 2107 2126 / 2126 4895 / 4895 Output Total 720 / 720 1200 / 1200 Balance 1387 / 1387 926 / 926 4895 / 4895 Microbiology Past 72 Hours 05/03/17 Unknown Gram Stain - Final Tissue - Other Wound Culture - Final Staphylococcus aureus Anaerobic Culture - Preliminary Checking for anaerobes, further studies to follow. Laboratory Tests Past 24 Hrs 05/05/17 05/05/17 05/05/17 05:12 05:12 12:17 WBC 6.5 RBC 3.04 L Hgb 8.2 L Hct 25.4 L MCV 83.6 MCH 27.0 MCHC 32.3 RDW 15.9 H RDW Differential 47.2 H Plt Count 410 MPV 10.1 Sodium 138 Potassium 4.3 Chloride 102 Carbon Dioxide 27.0 Anion Gap 9 BUN 13 Creatinine 2.77 H Estim Creat Clear Calc 27.55 Est GFR (MDRD) Af Amer 26 L Est GFR (MDRD) Non-Af 21 L BUN/Creatinine Ratio 4.7 L Glucose 89 Calcium 8.3 L Urine Color Urine Clarity Urine pH Ur Specific [place] Urine Protein Urine Glucose (UA) Urine Ketones Urine Occult Blood Urine Nitrite Urine Bilirubin Urine Urobilinogen Ur Leukocyte Esterase Urine RBC Urine WBC Ur Squamous Epith Cells Urine Bacteria Urine Mucus Ur Random Sodium Urine Creatinine 36.30 05/05/17 05/05/17 12:17 12:17 WBC RBC Hgb Hct MCV MCH MCHC RDW RDW Differential Plt Count MPV Sodium Potassium Chloride Carbon Dioxide Anion Gap BUN Creatinine Estim Creat Clear Calc Est GFR (MDRD) Af Amer Est GFR (MDRD) Non-Af BUN/Creatinine Ratio Glucose Calcium Urine Color Yellow Urine Clarity Clear Urine pH 6.0 Ur Specific [place] 1.005 Urine Protein 15 H Urine Glucose (UA) Normal Urine Ketones Negative Urine Occult Blood Negative Urine Nitrite Negative Urine Bilirubin Negative Urine Urobilinogen Normal Ur Leukocyte Esterase Negative Urine RBC 0 SEEN Urine WBC 0 SEEN Ur Squamous Epith Cells 0-5 SEEN Urine Bacteria RARE Urine Mucus 0 SEEN Ur Random Sodium 90 Urine Creatinine Diagnostic Data Pelvis CT 04/30/17 10:09 IMPRESSION: Subcutaneous fluid collection as described. A drainage catheter is seen within. This most likely represents a postoperative seroma. Electronically Signed: Demetrius Brandon MD at 11:27 EST Tel [phone], Service support , Renal Ultrasound 05/05/17 11:25 IMPRESSION: Nonobstructive right renal stone. Electronically Signed: Robert Wolfe MD at 18:23 EST , Service support , Assessment/Plan Active and Suspected Problems (Last Updated 04/23/17 @ 14:42 by Griselda Chou) ERIKA (acute kidney injury) (Acute) Cellulitis of abdominal wall (Acute) Cellulitis of pubic region (Acute) 1. 8 cm painful soft tissue mass pubic area. 2. 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 3. Abdominal wall skin crease intertrigo. 4. s/p excision 8 cm painful soft tissue mass pubic area with 20 cm complex closure. 5. Cellulitis lower anterior abdominal wall and pubic area, improving. 6. Anemia of chronic disease, acute on chronic. 7. History of MRSA. 8. Acute kidney dysfunction with elevated creatinine. VAC in place. Will change three days per week at 150 mmHg continuous suction. With the increased pain from the VAC, will increase the Oxycodone to 20 mg. Continue abdominal wall binder. Hgb stable at 8.2 from She has anemia of chronic disease with acute on chronic. Probable IV fluid dilution. She is positive 6000 ml in her I/O's. Continue Fe supplementation. She will followup with her PCP regarding her chronic anemia for evaluation since it is quite common to have anemia after gastric bypass surgery. Prealbumin quite low at 9.0. Encourage nutritional supplementation with protein to help the healing process. The Zosyn has been changed to Ancef and Flagyl. ID input appreciated. Operative culture showed Staphylococcus aureus. Her Creatinine has increased to 2.77. Medicine input appreciated. Renal studies ordered. Ultrasound showed a nonobstructive right renal stone.
--- NOTE | 2017-05-05 19:48 | PN.SURG_ITS ---
Patient Problems: Active and Suspected Problems (Last Updated 04/23/17 @ 14:42 by Griselda Chou) ERIKA (acute kidney injury) (Acute) Cellulitis of abdominal wall (Acute) Cellulitis of pubic region (Acute) Subjective: Postop #2 Patient complains of wound pain mostly from the VAC. - Physical Exam General: Alert, Oriented x3 HEENT: PERRLA, EOMI Neck: Supple Lungs: Clear to auscultation Cardiovascular: Regular rate, Regular Rhythm Abdomen: Soft, Non-Distended Skin: Ulcer/ Wound - VAC in place. Moderate drainage in the canister. Neurological: Cranial nerves II-XII grossly intact Psych/Mental Status: Normal Affect, Appropriate Vital Signs Temp Pulse Resp BP Pulse Ox 98.8 F 79 16 116/53 L 95 05/05/17 13:27 05/05/17 13:27 05/05/17 13:27 05/05/17 13:27 05/05/17 13:27 Oxygen Delivery Method Room Air Weight: 201 lb 0.985 oz Body Mass Index (BMI) 32.3 Intake and Output for Last 24 Hours 05/03/17 05/04/17 05/05/17 23:59 23:59 23:59 Intake Total 2107 / 2107 2126 / 2126 4895 / 4895 Output Total 720 / 720 1200 / 1200 Balance 1387 / 1387 926 / 926 4895 / 4895 Microbiology Past 72 Hours 05/03/17 Unknown Gram Stain - Final Tissue - Other Wound Culture - Final Staphylococcus aureus Anaerobic Culture - Preliminary Checking for anaerobes, further studies to follow. Laboratory Tests Past 24 Hrs 05/05/17 05/05/17 05/05/17 05:12 05:12 12:17 WBC 6.5 RBC 3.04 L Hgb 8.2 L Hct 25.4 L MCV 83.6 MCH 27.0 MCHC 32.3 RDW 15.9 H RDW Differential 47.2 H Plt Count 410 MPV 10.1 Sodium 138 Potassium 4.3 Chloride 102 Carbon Dioxide 27.0 Anion Gap 9 BUN 13 Creatinine 2.77 H Estim Creat Clear Calc 27.55 Est GFR (MDRD) Af Amer 26 L Est GFR (MDRD) Non-Af 21 L BUN/Creatinine Ratio 4.7 L Glucose 89 Calcium 8.3 L Urine Color Urine Clarity Urine pH Ur Specific [place] Urine Protein Urine Glucose (UA) Urine Ketones Urine Occult Blood Urine Nitrite Urine Bilirubin Urine Urobilinogen Ur Leukocyte Esterase Urine RBC Urine WBC Ur Squamous Epith Cells Urine Bacteria Urine Mucus Ur Random Sodium Urine Creatinine 36.30 05/05/17 05/05/17 12:17 12:17 WBC RBC Hgb Hct MCV MCH MCHC RDW RDW Differential Plt Count MPV Sodium Potassium Chloride Carbon Dioxide Anion Gap BUN Creatinine Estim Creat Clear Calc Est GFR (MDRD) Af Amer Est GFR (MDRD) Non-Af BUN/Creatinine Ratio Glucose Calcium Urine Color Yellow Urine Clarity Clear Urine pH 6.0 Ur Specific [place] 1.005 Urine Protein 15 H Urine Glucose (UA) Normal Urine Ketones Negative Urine Occult Blood Negative Urine Nitrite Negative Urine Bilirubin Negative Urine Urobilinogen Normal Ur Leukocyte Esterase Negative Urine RBC 0 SEEN Urine WBC 0 SEEN Ur Squamous Epith Cells 0-5 SEEN Urine Bacteria RARE Urine Mucus 0 SEEN Ur Random Sodium 90 Urine Creatinine Diagnostic Data Pelvis CT 04/30/17 10:09 IMPRESSION: Subcutaneous fluid collection as described. A drainage catheter is seen within. This most likely represents a postoperative seroma. Electronically Signed: Demetrius Barndon MD at 11:27 EST Tel [phone], Service support , Renal Ultrasound 05/05/17 11:25 IMPRESSION: Nonobstructive right renal stone. Electronically Signed: Robert Wolfe MD at 18:23 EST , Service support , Assessment/Plan Active and Suspected Problems (Last Updated 04/23/17 @ 14:42 by Griselda Chou) ERIKA (acute kidney injury) (Acute) Cellulitis of abdominal wall (Acute) Cellulitis of pubic region (Acute) 1. 8 cm painful soft tissue mass pubic area. 2. 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 3. Abdominal wall skin crease intertrigo. 4. s/p excision 8 cm painful soft tissue mass pubic area with 20 cm complex closure. 5. Cellulitis lower anterior abdominal wall and pubic area, improving. 6. Anemia of chronic disease, acute on chronic. 7. History of MRSA. 8. Acute kidney dysfunction with elevated creatinine. VAC in place. Will change three days per week at 150 mmHg continuous suction. With the increased pain from the VAC, will increase the Oxycodone to 20 mg. Continue abdominal wall binder. Hgb stable at 8.2 from She has anemia of chronic disease with acute on chronic. Probable IV fluid dilution. She is positive 6000 ml in her I/O's. Continue Fe supplementation. She will followup with her PCP regarding her chronic anemia for evaluation since it is quite common to have anemia after gastric bypass surgery. Prealbumin quite low at 9.0. Encourage nutritional supplementation with protein to help the healing process. The Zosyn has been changed to Ancef and Flagyl. ID input appreciated. Operative culture showed Staphylococcus aureus. Her Creatinine has increased to 2.77. Medicine input appreciated. Renal studies ordered. Ultrasound showed a nonobstructive right renal stone.
[2017-05-05] MEDS: oxyCODONE 5 MG Tablet 20 MG PO (20:32)
[2017-05-05 20:35] VITALS: BP 125/62; PULSE 92; RESP 18; TEMP 37.1; O2SAT 99
[2017-05-05] MEDS: diazePAM 5 MG Tablet PO (22:37)
[2017-05-06] MEDS: Cefazolin 2 GM in 0.9% Normal Saline 100 ML IV ×3 (00:34→22:34)
--- NOTE | 2017-05-06 03:45 | NURSING ---
PT REQUESTED PAIN MEDS, WHEN THIS RN RETURNED TO HER ROOM SHE WAS SLEEPING.
[2017-05-06] MEDS: oxyCODONE 5 MG Tablet 20 MG PO ×5 (04:05→23:33)
[2017-05-06 04:06] VITALS: BP 118/60; PULSE 86; RESP 16; TEMP 37; O2SAT 95
[2017-05-06] MEDS: 0.9% NaCl Peripheral Flush Adult/Peds IV ×5 (04:12→22:18)
[2017-05-06] MEDS: Ondansetron 4 MG/2 ML Vial IV ×2 (04:12→12:10)
[2017-05-06 06:35] LABS: Absolute Lymphocyte Count 1.02 X10^3/ul (0.83-4.51); Absolute Neutrophil Count 5.4 X10^3/uL (2.0-7.7); Basophil# 0.04 X10^3/uL; Basophil% 0.5 % (0-1); Eosinophil# 0.18 X10^3/uL; Eosinophils% 2.3 % (0-5); Hematocrit 25.7 % (37-47); Hemoglobin 8.2 g/dl (12.0-15.0); Lymphocyte # 1.02 X10^3/ul (4.0); Lymphocyte % 13.2 % (19-41); Mean Corp Hgb Conc 31.9 g/gl (32-36); Mean Corpuscular Volume 84.5 fL (81-99); Mean Platelet Vol. 10.3 fl (6.2-12.0); Monocyte# 1.13 X10^3/uL; Monocyte% 14.6 % (0-10); Neutrophil # 5.35 X10^3/uL (2.7-7.7); Neutrophil % 69.3 % (47-70); Platelet Count 439 K/mm3 (150-450); RBC Distribution Width SD 48.1 fl (35.1-43.9); Red Blood Count 3.04 M/mm3 (4.2-5.4); White Blood Count 7.7 K/mm3 (4.4-11.0)
[2017-05-06 06:46] LABS: POSITIVE COUNT NO; POSITIVE DIFFERENTIAL NO; POSITIVE MORPHOLOGY NO
[2017-05-06 06:49] LABS: Anion Gap 9 (5-15); BUN 17 mg/dL (7-18); BUN/Creat Ratio 4.4 RATIO (10-20); Calcium,Total 8.4 mg/dL (8.5-10.1); Chloride 103 mmol/L (98-107); Creatinine, Serum 3.87 mg/dL (0.55-1.02); EST Glomerular Filtration Rate 14 mL/min (>60); Est Glom Filt Rate - Afr Amer 17 mL/min (>60); Estimated Creatinine Clearance 19.72 ml/min; Glucose 87 mg/dL (74-106); Potassium 4.9 mmol/L (3.5-5.1); Sodium Level 138 mmol/L (136-145)
[2017-05-06] MEDS: metroNIDAZOLE 500 MG Tablet PO ×3 (07:16→22:15)
--- NOTE | 2017-05-06 08:53 | NURSING ---
In to assess the wound VAC to the mid lower abdomen. dressing remains intact. there was a large amount of drainage noted in the canister. nearly full. canister changed at this time. plan to change wound VAC dressing tomorrow to get patient on a -- VAC change schedule for home health.
[2017-05-06 09:26] VITALS: BP 123/68; PULSE 82; RESP 16; TEMP 36.7; O2SAT 95
[2017-05-06] MEDS: amLODIPine 10 MG Tablet PO (09:33)
[2017-05-06] MEDS: Labetalol 100 MG Tablet PO ×2 (09:33→22:16)
[2017-05-06] MEDS: Tamsulosin HCl 0.4 MG Capsule 0.8 MG PO (09:34)
[2017-05-06] MEDS: Iron Polysaccharide Complex 150 MG CAPSULE PO (09:35)
--- NOTE | 2017-05-06 10:25 | PCM.PN.HOSP ---
Patient Problems: Active and Suspected Problems (Last Updated 04/23/17 @ 14:42 by Griselda Chou) ERIKA (acute kidney injury) (Acute) Cellulitis of abdominal wall (Acute) Cellulitis of pubic region (Acute) Subjective: Concerned about not having much of an appetite right now. Patient states that she has had some vomiting. Vitals/I&O's: Vital Signs Temp Pulse Resp BP Pulse Ox 36.7 C 82 16 123/68 H 95 05/06/17 09:26 05/06/17 09:26 05/06/17 09:26 05/06/17 09:26 05/06/17 09:26 Oxygen Delivery Method Room Air Weight: 91.2 kg Body Mass Index (BMI) 32.3 Intake and Output for Last 24 Hours 05/04/17 05/05/17 05/06/17 23:59 23:59 23:59 Intake Total 2126 / 2126 4895 / 4895 2885 / 2885 Output Total 1200 / 1200 Balance 926 / 926 4895 / 4895 2885 / 2885 General: Alert, Cooperative, No apparent distress HEENT: Atraumatic, Normocephalic Neck: No Nodes, Thyroid Normal Size and Texture Lungs: Clear to auscultation, Normal air movement, No rhonchi, No wheeze Cardiovascular: Regular rate, Regular Rhythm, Normal S1, Normal S2 Abdomen: Bowel Sounds Present, Soft, Non Tender, Non-Distended Extremities: No edema, No Calf Tenderness Psych/Mental Status: Normal Affect, Appropriate Microbiology Past 72 Hours 05/03/17 Unknown Tissue - Other Gram Stain - Final 05/03/17 Unknown Tissue - Other Wound Culture - Final Staphylococcus aureus 05/03/17 Unknown Tissue - Other Anaerobic Culture - Preliminary Checking for anaerobes, further studies to follow. Laboratory Results 05/05/17 12:17: Urine Creatinine 36.30 05/05/17 12:17: Urine Color Yellow, Urine Clarity Clear, Urine pH 6.0, Ur Specific [place] 1.005, Urine Protein 15 H, Urine Glucose (UA) Normal, Urine Ketones Negative, Urine Occult Blood Negative, Urine Nitrite Negative, Urine Bilirubin Negative, Urine Urobilinogen Normal, Ur Leukocyte Esterase Negative, Urine RBC 0 SEEN, Urine WBC 0 SEEN, Ur Squamous Epith Cells 0-5 SEEN, Urine Bacteria RARE, Urine Mucus 0 SEEN 05/05/17 12:17: Ur Random Sodium 90 05/06/17 06:10: WBC 7.7, RBC 3.04 L, Hgb 8.2 L, Hct 25.7 L, MCV 84.5, MCH 27.0, MCHC 31.9 L, RDW 16.0 H, RDW Differential 48.1 H, Plt Count 439, MPV 10.3, Immature Gran % (Auto) 0.100, Neut % (Auto) 69.3, Lymph % (Auto) 13.2 L, [place] % (Auto) 14.6 H, Eos % (Auto) 2.3, Baso % (Auto) 0.5, Absolute Neuts (auto) 5.4, Absolute Lymphs (auto) 1.02, Total Counted Not Reportable 05/06/17 06:10: Sodium 138, Potassium 4.9, Chloride 103, Carbon Dioxide 26.0, Anion Gap 9, BUN 17, Creatinine 3.87 H, Estim Creat Clear Calc 19.72, Est GFR (MDRD) Af Amer 17 L, Est GFR (MDRD) Non-Af 14 L, BUN/Creatinine Ratio 4.4 L, Glucose 87, Calcium 8.4 L Current Medications Amitriptyline HCl (Elavil) 50 mg PO QHS [facility] Last Admin: 05/05/17 22:33 Dose: Not Given Amlodipine Besylate (Norvasc) 10 mg PO DAILY [facility] Last Admin: 05/06/17 09:33 Dose: 10 mg Diazepam (Valium) 5 mg PO 4X/DAY PRN PRN PRN Reason: SPASMS Last Admin: 05/05/17 22:37 Dose: 2.5 mg Ergocalciferol (Vitamin D) 50,000 unit PO TUTH [facility] Last Admin: 05/06/17 09:34 Dose: 50,000 unit Fentanyl (Duragesic) 25 mcg TRANSDERM. Q3D [facility] Last Admin: 05/04/17 22:23 Dose: 25 mcg Hydromorphone HCl (Dilaudid) 1 mg IV Q3H PRN PRN PRN Reason: SEVERE PAIN (6-10/10) Last Admin: 05/05/17 17:10 Dose: 1 mg Cefazolin Sodium 2 gm/ Sodium (Chloride) 120 mls @ 240 mls/hr IV Q12 [facility] Last Admin: 05/06/17 09:37 Dose: 240 mls/hr Labetalol HCl (Trandate) 100 mg PO BID [facility] Last Admin: 05/06/17 09:33 Dose: 100 mg Metronidazole (Flagyl) 500 mg PO TID [facility] Last Admin: 05/06/17 07:16 Dose: 500 mg Nutritional Formula ([place] - [place] Flavor) [facility] Last Admin: 05/06/17 07:46 Dose: Not Given Ondansetron HCl (Zofran) 4 mg IV Q6H PRN PRN PRN Reason: NAUSEA Last Admin: 05/06/17 04:12 Dose: 4 mg Oxycodone HCl (Oxyir) 20 mg PO Q4H PRN PRN PRN Reason: SEVERE PAIN (6-10/10) Last Admin: 05/06/17 09:30 Dose: 20 mg Polysaccharide Iron Complex (Ferrex 150) [facility] Last Admin: 05/06/17 09:35 Dose: 150 mg Potassium Chloride (K-Dur) 20 meq PO BID [facility] Last Admin: 05/06/17 09:33 Dose: 20 meq Promethazine HCl (Phenergan) 25 mg PO Q4H PRN PRN PRN Reason: NAUSEA/VOMITING Simethicone (Mylicon) 80 mg PO BID PRN PRN PRN Reason: Gas Last Admin: 05/05/17 15:29 Dose: 80 mg Sodium Chloride () 5 - 30 ml IV UD PRN PRN Reason: SALINE FLUSH Last Admin: 05/06/17 04:12 Dose: 10 ml Tamsulosin HCl (Flomax) 0.8 mg PO DAILY@0830 [facility] Last Admin: 05/06/17 09:34 Dose: 0.8 mg Assessment/Plan Active and Suspected Problems (Last Updated 04/23/17 @ 14:42 by Griselda Chou) ERIKA (acute kidney injury) (Acute) Cellulitis of abdominal wall (Acute) Cellulitis of pubic region (Acute) 1. ERIKA: I suspect related to the vancomycin given the timing Vanc has been d/c'd Additionally, I have d/c'd the patient's lisinopril and lasix Renal ultrasound showed a nonobstructing stone which is not at all contributing to the patient's renal failure. IVF Fractional excretion of sodium was 5% from lab work from yesterday, which is consistent with prerenal azotemia. Comp getting this is the fact that the patient was on Lasix prior to this measurement. Given the worsening of her kidney function, consulted nephrology for further input. 2. Abd wall cellulitis + MSSA Seen by infectious disease and micro[employer] exchange architect to cefazolin and metronidazole. 3. DVT proph: SCDs Code Visit Inpatient E&M: 28317 Subs Hosp L2
--- NOTE | 2017-05-06 10:31 | PN_ITS ---
Patient Problems: Active and Suspected Problems (Last Updated 04/23/17 @ 14:42 by Griselda Chou) ERIKA (acute kidney injury) (Acute) Cellulitis of abdominal wall (Acute) Cellulitis of pubic region (Acute) Subjective: Concerned about not having much of an appetite right now. Patient states that she has had some vomiting. Vitals/I&O's: Vital Signs Temp Pulse Resp BP Pulse Ox 36.7 C 82 16 123/68 H 95 05/06/17 09:26 05/06/17 09:26 05/06/17 09:26 05/06/17 09:26 05/06/17 09:26 Oxygen Delivery Method Room Air Weight: 91.2 kg Body Mass Index (BMI) 32.3 Intake and Output for Last 24 Hours 05/04/17 05/05/17 05/06/17 23:59 23:59 23:59 Intake Total 2126 / 2126 4895 / 4895 2885 / 2885 Output Total 1200 / 1200 Balance 926 / 926 4895 / 4895 2885 / 2885 General: Alert, Cooperative, No apparent distress HEENT: Atraumatic, Normocephalic Neck: No Nodes, Thyroid Normal Size and Texture Lungs: Clear to auscultation, Normal air movement, No rhonchi, No wheeze Cardiovascular: Regular rate, Regular Rhythm, Normal S1, Normal S2 Abdomen: Bowel Sounds Present, Soft, Non Tender, Non-Distended Extremities: No edema, No Calf Tenderness Psych/Mental Status: Normal Affect, Appropriate Microbiology Past 72 Hours 05/03/17 Unknown Tissue - Other Gram Stain - Final 05/03/17 Unknown Tissue - Other Wound Culture - Final Staphylococcus aureus 05/03/17 Unknown Tissue - Other Anaerobic Culture - Preliminary Checking for anaerobes, further studies to follow. Laboratory Results 05/05/17 12:17: Urine Creatinine 36.30 05/05/17 12:17: Urine Color Yellow, Urine Clarity Clear, Urine pH 6.0, Ur Specific [place] 1.005, Urine Protein 15 H, Urine Glucose (UA) Normal, Urine Ketones Negative, Urine Occult Blood Negative, Urine Nitrite Negative, Urine Bilirubin Negative, Urine Urobilinogen Normal, Ur Leukocyte Esterase Negative, Urine RBC 0 SEEN, Urine WBC 0 SEEN, Ur Squamous Epith Cells 0-5 SEEN, Urine Bacteria RARE, Urine Mucus 0 SEEN 05/05/17 12:17: Ur Random Sodium 90 05/06/17 06:10: WBC 7.7, RBC 3.04 L, Hgb 8.2 L, Hct 25.7 L, MCV 84.5, MCH 27.0, MCHC 31.9 L, RDW 16.0 H, RDW Differential 48.1 H, Plt Count 439, MPV 10.3, Immature Gran % (Auto) 0.100, Neut % (Auto) 69.3, Lymph % (Auto) 13.2 L, [place] % (Auto) 14.6 H, Eos % (Auto) 2.3, Baso % (Auto) 0.5, Absolute Neuts (auto) 5.4, Absolute Lymphs (auto) 1.02, Total Counted Not Reportable 05/06/17 06:10: Sodium 138, Potassium 4.9, Chloride 103, Carbon Dioxide 26.0, Anion Gap 9, BUN 17, Creatinine 3.87 H, Estim Creat Clear Calc 19.72, Est GFR ( MDRD) Af Amer 17 L, Est GFR (MDRD) Non-Af 14 L, BUN/Creatinine Ratio 4.4 L, Glucose 87, Calcium 8.4 L Current Medications Amitriptyline HCl (Elavil) 50 mg PO QHS [facility] Last Admin: 05/05/17 22:33 Dose: Not Given Amlodipine Besylate (Norvasc) 10 mg PO DAILY [facility] Last Admin: 05/06/17 09:33 Dose: 10 mg Diazepam (Valium) 5 mg PO 4X/DAY PRN PRN PRN Reason: SPASMS Last Admin: 05/05/17 22:37 Dose: 2.5 mg Ergocalciferol (Vitamin D) 50,000 unit PO TUTH [facility] Last Admin: 05/06/17 09:34 Dose: 50,000 unit Fentanyl (Duragesic) 25 mcg TRANSDERM. Q3D [facility] Last Admin: 05/04/17 22:23 Dose: 25 mcg Hydromorphone HCl (Dilaudid) 1 mg IV Q3H PRN PRN PRN Reason: SEVERE PAIN (6-10/10) Last Admin: 05/05/17 17:10 Dose: 1 mg Cefazolin Sodium 2 gm/ Sodium (Chloride) 120 mls @ 240 mls/hr IV Q12 [facility] Last Admin: 05/06/17 09:37 Dose: 240 mls/hr Labetalol HCl (Trandate) 100 mg PO BID [facility] Last Admin: 05/06/17 09:33 Dose: 100 mg Metronidazole (Flagyl) 500 mg PO TID [facility] Last Admin: 05/06/17 07:16 Dose: 500 mg Nutritional Formula ([place] - [place] Flavor) [facility] Last Admin: 05/06/17 07:46 Dose: Not Given Ondansetron HCl (Zofran) 4 mg IV Q6H PRN PRN PRN Reason: NAUSEA Last Admin: 05/06/17 04:12 Dose: 4 mg Oxycodone HCl (Oxyir) 20 mg PO Q4H PRN PRN PRN Reason: SEVERE PAIN (6-10/10) Last Admin: 05/06/17 09:30 Dose: 20 mg Polysaccharide Iron Complex (Ferrex 150) [facility] Last Admin: 05/06/17 09:35 Dose: 150 mg Potassium Chloride (K-Dur) 20 meq PO BID [facility] Last Admin: 05/06/17 09:33 Dose: 20 meq Promethazine HCl (Phenergan) 25 mg PO Q4H PRN PRN PRN Reason: NAUSEA/VOMITING Simethicone (Mylicon) 80 mg PO BID PRN PRN PRN Reason: Gas Last Admin: 05/05/17 15:29 Dose: 80 mg Sodium Chloride () 5 - 30 ml IV UD PRN PRN Reason: SALINE FLUSH Last Admin: 05/06/17 04:12 Dose: 10 ml Tamsulosin HCl (Flomax) 0.8 mg PO DAILY@0830 [facility] Last Admin: 05/06/17 09:34 Dose: 0.8 mg Assessment/Plan Active and Suspected Problems (Last Updated 04/23/17 @ 14:42 by Griselda Chou) ERIKA (acute kidney injury) (Acute) Cellulitis of abdominal wall (Acute) Cellulitis of pubic region (Acute) 1. ERIKA: * I suspect related to the vancomycin given the timing * Vanc has been d/c'd * Additionally, I have d/c'd the patient's lisinopril and lasix * Renal ultrasound showed a nonobstructing stone which is not at all contributing to the patient's renal failure. * IVF * Fractional excretion of sodium was 5% from lab work from yesterday, which is consistent with prerenal azotemia. Comp getting this is the fact that the patient was on Lasix prior to this measurement. * Given the worsening of her kidney function, consulted nephrology for further input. 2. Abd wall cellulitis * + MSSA * Seen by infectious disease and open shank coverer to cefazolin and metronidazole. 3. DVT proph: SCDs Code Visit Inpatient E&M: 81755 Subs Hosp L2
--- NOTE | 2017-05-06 10:48 | PCM.PN.ID ---
Patient Problems: Active and Suspected Problems (Last Updated 04/23/17 @ 14:42 by Griselda Chou) ERIKA (acute kidney injury) (Acute) Cellulitis of abdominal wall (Acute) Cellulitis of pubic region (Acute) Subjective: Feeling better today, no more n/v. Having UOP. No fever. Still abd pain around surgical site. - Physical Exam General: Alert Lungs: Clear to auscultation, Normal air movement Cardiovascular: Regular rate, Regular Rhythm Abdomen: Soft, Non Tender, Non-Distended, - - wound vac in place Vital Signs Temp Pulse Resp BP Pulse Ox 98.0 F 82 16 123/68 H 95 05/06/17 09:26 05/06/17 09:26 05/06/17 09:26 05/06/17 09:26 05/06/17 09:26 Oxygen Delivery Method Room Air Weight: 91.2 kg Body Mass Index (BMI) 32.3 Intake and Output for Last 24 Hours 05/04/17 05/05/17 05/06/17 23:59 23:59 23:59 Intake Total 2126 / 2126 4895 / 4895 2885 / 2885 Output Total 1200 / 1200 Balance 926 / 926 4895 / 4895 2885 / 2885 Microbiology Past 72 Hours 05/03/17 Unknown Gram Stain - Final Tissue - Other Wound Culture - Final Staphylococcus aureus Anaerobic Culture - Preliminary Checking for anaerobes, further studies to follow. Laboratory Tests Past 24 Hrs 05/05/17 05/05/17 05/05/17 12:17 12:17 12:17 WBC RBC Hgb Hct MCV MCH MCHC RDW RDW Differential Plt Count MPV Immature Gran % (Auto) Neut % (Auto) Lymph % (Auto) [place] % (Auto) Eos % (Auto) Baso % (Auto) Absolute Neuts (auto) Absolute Lymphs (auto) Total Counted Sodium Potassium Chloride Carbon Dioxide Anion Gap BUN Creatinine Estim Creat Clear Calc Est GFR (MDRD) Af Amer Est GFR (MDRD) Non-Af BUN/Creatinine Ratio Glucose Calcium Urine Color Yellow Urine Clarity Clear Urine pH 6.0 Ur Specific [place] 1.005 Urine Protein 15 H Urine Glucose (UA) Normal Urine Ketones Negative Urine Occult Blood Negative Urine Nitrite Negative Urine Bilirubin Negative Urine Urobilinogen Normal Ur Leukocyte Esterase Negative Urine RBC 0 SEEN Urine WBC 0 SEEN Ur Squamous Epith Cells 0-5 SEEN Urine Bacteria RARE Urine Mucus 0 SEEN Ur Random Sodium 90 Urine Creatinine 36.30 05/06/17 05/06/17 06:10 06:10 WBC 7.7 RBC 3.04 L Hgb 8.2 L Hct 25.7 L MCV 84.5 MCH 27.0 MCHC 31.9 L RDW 16.0 H RDW Differential 48.1 H Plt Count 439 MPV 10.3 Immature Gran % (Auto) 0.100 Neut % (Auto) 69.3 Lymph % (Auto) 13.2 L [place] % (Auto) 14.6 H Eos % (Auto) 2.3 Baso % (Auto) 0.5 Absolute Neuts (auto) 5.4 Absolute Lymphs (auto) 1.02 Total Counted Not Reportable Sodium 138 Potassium 4.9 Chloride 103 Carbon Dioxide 26.0 Anion Gap 9 BUN 17 Creatinine 3.87 H Estim Creat Clear Calc 19.72 Est GFR (MDRD) Af Amer 17 L Est GFR (MDRD) Non-Af 14 L BUN/Creatinine Ratio 4.4 L Glucose 87 Calcium 8.4 L Urine Color Urine Clarity Urine pH Ur Specific [place] Urine Protein Urine Glucose (UA) Urine Ketones Urine Occult Blood Urine Nitrite Urine Bilirubin Urine Urobilinogen Ur Leukocyte Esterase Urine RBC Urine WBC Ur Squamous Epith Cells Urine Bacteria Urine Mucus Ur Random Sodium Urine Creatinine Route of nutrition/ use of supplements: [] Nutritional Intake: [] IV Site: [] Adhikari Catheter: [] - Assessment/Plan Antibiotics: [] Assessment/Plan: [] Active and Suspected Problems (Last Updated 04/23/17 @ 14:42 by Griselda Chou) ERIKA (acute kidney injury) (Acute) Cellulitis of abdominal wall (Acute) Cellulitis of pubic region (Acute) MSSA abd wall abscess/hematoma after surgery 04/20/[address] Mendieta - taken back to OR 05/03, cx and pcr (+) for MSSA. Now with ERIKA. Has h/o recurrent kidney stones. Urine eos pending and renal u/s showed non-obstructing stone. Vanc trough was at goal 05/02 and only mildly elevated 05/04, so vanc seems less likely to be the primary food service driver of her ERIKA. Stopped vanc/zosyn. On cefazolin and flagyl for narrower coverage based on cx results and lower risk of nephrotoxicity. Cr up again today, neph consulted. D/w Dr. Reyes, will follow.
[2017-05-06 13:34] VITALS: BP 120/67; PULSE 96; RESP 18; TEMP 36.8; O2SAT 96
[2017-05-06] MEDS: HYDROmorphone 1 MG/ML Syringe IV ×2 (16:57→22:36)
--- NOTE | 2017-05-06 17:36 | PCM.CONS.R ---
Problem List (1) ERIKA (acute kidney injury) Status: Acute Consultation - Renal PCP/ Referring MD: Requesting physician: [] Primary care physician: Bethel Jauregui - History of Present Illness History of Present Illness: The patient is a 32 year old F past medical history of nephrolithiasis, hypertension , morbid obesity status post cardiac bypass surgery . Patient was admitted for abdominal wall cellulitis/abscess. Patient had I&D by the surgical team with wound VAC placement . Patient also was treated with vancomycin . Patient also was kept on lisinopril and hydrochlorothiazide along with potassium citrate home medications. I was consulted for acute kidney injury. Patient has normal creatinine at baseline. On May 02 creatinine started to go up. Creatinine yesterday was 2.7 and jumped to 3.8 today. She is making good amount of urine. Nonoliguric. Lisinopril and hydrochlorothiazide were stopped yesterday. UA shows +30 protein. No NSAID use . No IV contrast exposure . No UTIs . No skin rash Renal ultrasound showed small nonobstructive renal calculus Review of system: 12 systems review is negative. [] - Allergies Allergies: Allergies methocarbamol Allergy (Verified 04/30/17 09:40) Chest tightness gabapentin Adverse Reaction (Verified 04/30/17 09:40) MADE ME WALK SIDEWAYS ketorolac tromethamine [From Toradol] Adverse Reaction (Verified 04/30/17 09:40) Upset Stomach NSAIDS (Non-Steroidal Anti-Inflamma Adverse Reaction (Verified 04/30/17 09:40) gastric bipass not supposed to take tramadol Adverse Reaction (Verified 04/30/17 09:40) Upset Stomach - Current Medications Current Medications: Current Medications Amitriptyline HCl (Elavil) 50 mg PO QHS [facility] Last Admin: 05/05/17 22:33 Dose: Not Given Amlodipine Besylate (Norvasc) 10 mg PO DAILY [facility] Last Admin: 05/06/17 09:33 Dose: 10 mg Diazepam (Valium) 5 mg PO 4X/DAY PRN PRN PRN Reason: SPASMS Last Admin: 05/05/17 22:37 Dose: 2.5 mg Ergocalciferol (Vitamin D) 50,000 unit PO TUTH [facility] Last Admin: 05/06/17 09:34 Dose: 50,000 unit Fentanyl (Duragesic) 25 mcg TRANSDERM. Q3D [facility] Last Admin: 05/04/17 22:23 Dose: 25 mcg Hydromorphone HCl (Dilaudid) 1 mg IV Q3H PRN PRN PRN Reason: SEVERE PAIN (6-10/10) Last Admin: 05/06/17 16:57 Dose: 1 mg Cefazolin Sodium 2 gm/ Sodium (Chloride) 120 mls @ 240 mls/hr IV Q12 [facility] Last Admin: 05/06/17 09:37 Dose: 240 mls/hr Labetalol HCl (Trandate) 100 mg PO BID [facility] Last Admin: 05/06/17 09:33 Dose: 100 mg Metronidazole (Flagyl) 500 mg PO TID [facility] Last Admin: 05/06/17 13:42 Dose: 500 mg Nutritional Formula ([place] Flavor) [facility] Last Admin: 05/06/17 17:00 Dose: Not Given Ondansetron HCl (Zofran) 4 mg IV Q6H PRN PRN PRN Reason: NAUSEA Last Admin: 05/06/17 12:10 Dose: 4 mg Oxycodone HCl (Oxyir) 20 mg PO Q4H PRN PRN PRN Reason: SEVERE PAIN (6-10/10) Last Admin: 05/06/17 13:41 Dose: 20 mg Polysaccharide Iron Complex (Ferrex 150) [facility] Last Admin: 05/06/17 09:35 Dose: 150 mg Promethazine HCl (Phenergan) 25 mg PO Q4H PRN PRN PRN Reason: NAUSEA/VOMITING Simethicone (Mylicon) 80 mg PO BID PRN PRN PRN Reason: Gas Last Admin: 05/05/17 15:29 Dose: 80 mg Sodium Chloride () 5 - 30 ml IV UD PRN PRN Reason: SALINE FLUSH Last Admin: 05/06/17 16:57 Dose: 10 ml Tamsulosin HCl (Flomax) 0.8 mg PO DAILY@0830 [facility] Last Admin: 05/06/17 09:34 Dose: 0.8 mg - Past Medical History Past Medical History (Chronic Problems): Chronic Problems (Last Updated 04/23/17 @ 14:42 by Griselda Chou) Intertrigo (Chronic) abdominal wall skin crease intertrigo Localized adiposity (Chronic) 8 cm painful soft tissue mass pubic area Excessive body weight loss (Chronic) after gastric bypass procedure HTN (hypertension) (Chronic) Nephrolithiasis (Chronic) Ovarian cyst (Chronic) - Past Surgical History Surgical History: cholecystectomy, gastric bypass, - - gastric bypass 04/18/15,thyroid nodular surgery, I+D abdominal wall and pelvic mass 05/03/17, - Social History Smoking Status: Never smoker - Family History Maternal Family History: Family History (Last Updated 04/23/17 @ 14:58 by Griselda Chou) Mother Anxiety Bleeding disorder Depression Hypertension High cholesterol Cancer Father Diabetes Hypertension Grandfather Colon cancer Diabetes Heart disease History Items: Hypertension Paternal Family History: Family History (Last Updated 04/23/17 @ 14:58 by Griselda Chou) Mother Anxiety Bleeding disorder Depression Hypertension High cholesterol Cancer Father Diabetes Hypertension Grandfather Colon cancer Diabetes Heart disease History Items: Hypertension Patient Problems: Active and Suspected Problems (Last Updated 04/23/17 @ 14:42 by Griselda Chou) ERIKA (acute kidney injury) (Acute) Cellulitis of abdominal wall (Acute) Cellulitis of pubic region (Acute) - Physical Exam General: Alert, Oriented x3 HEENT: Atraumatic Oral: Moist Mucosa Neck: Supple, No JVD Lungs: Clear to auscultation, Normal air movement, No rhonchi, No wheeze Cardiovascular: Regular rate, Regular Rhythm, Normal S1, Normal S2, No murmurs Abdomen: Bowel Sounds Present, Soft, Non Tender, - - Wound VAC in place Extremities: No clubbing, No cyanosis, No edema Skin: No rashes Musculoskeletal: No Tenderness to Palpation of Joints or Extremities Lymphatic: No Cervical, Supraclavicular, or Inguinal Adenopathy Neurological: Cranial nerves II-XII grossly intact, Neuro grossly intact Psych/Mental Status: Normal Affect Vital Signs Temp Pulse Resp BP Pulse Ox 98.3 F 96 18 120/67 96 05/06/17 13:34 05/06/17 13:34 05/06/17 13:34 05/06/17 13:34 05/06/17 13:34 Oxygen Delivery Method Room Air Weight: 91.2 kg Body Mass Index (BMI) 32.3 Intake and Output for Last 24 Hours 05/04/17 05/05/17 05/06/17 23:59 23:59 23:59 Intake Total 2126 / 2126 4895 / 4895 4385 / 4385 Output Total 1200 / 1200 Balance 926 / 926 4895 / 4895 4385 / 4385 Microbiology Past 72 Hours 05/03/17 Unknown Gram Stain - Final Tissue - Other Wound Culture - Final Staphylococcus aureus Anaerobic Culture - Preliminary Checking for anaerobes, further studies to follow. Laboratory Tests Past 24 Hrs 05/06/17 05/06/17 06:10 06:10 WBC 7.7 RBC 3.04 L Hgb 8.2 L Hct 25.7 L MCV 84.5 MCH 27.0 MCHC 31.9 L RDW 16.0 H RDW Differential 48.1 H Plt Count 439 MPV 10.3 Immature Gran % (Auto) 0.100 Neut % (Auto) 69.3 Lymph % (Auto) 13.2 L [place] % (Auto) 14.6 H Eos % (Auto) 2.3 Baso % (Auto) 0.5 Absolute Neuts (auto) 5.4 Absolute Lymphs (auto) 1.02 Total Counted Not Reportable Sodium 138 Potassium 4.9 Chloride 103 Carbon Dioxide 26.0 Anion Gap 9 BUN 17 Creatinine 3.87 H Estim Creat Clear Calc 19.72 Est GFR (MDRD) Af Amer 17 L Est GFR (MDRD) Non-Af 14 L BUN/Creatinine Ratio 4.4 L Glucose 87 Calcium 8.4 L Assessment/Plan Active and Suspected Problems (Last Updated 04/23/17 @ 14:42 by Griselda Chou) ERIKA (acute kidney injury) (Acute) Cellulitis of abdominal wall (Acute) Cellulitis of pubic region (Acute) 1-acute kidney injury. Patient has normal creatinine at baseline.UA +1 protein Acute kidney injury is not oliguric. Creatinine is up to 3.8 mg/dL today. Acute kidney injury is most probably from vancomycin/sepsis-induced ATN No need for dialysis. I agree with discontinuation of diuretics and DANDRE inhibitor for now. I will discontinue potassium citrate since her potassium is 4.9. No need for renal replacement therapy. I will continue to monitor kidney function parameters along with urine output and electrolytes Keep mean arterial pressure more than 65. Avoid IV contrast if possible. Avoid NSAIDs. 2-hypertension. Blood pressure is well-controlled. No need for DANDRE inhibitor/ARB for now. We will continue to monitor. 3-cellulitis/this of the abdominal wall. Status post I&D with wound VAC placement. ID is following for antibiotics. Thank you for the consult. I will continue to follow Please do not hesitate to call me with any question or concern at my cell phone [phone] Maikel Mireles MD
--- NOTE | 2017-05-06 17:47 | CON.PCM_ITS ---
Problem List (1) ERIKA (acute kidney injury) Status: Acute Consultation - Renal PCP/ Referring MD: Requesting physician: [] Primary care physician: Bethel Jauregui - History of Present Illness History of Present Illness: The patient is a 32 year old F past medical history of nephrolithiasis, hypertension , morbid obesity status post cardiac bypass surgery . Patient was admitted for abdominal wall cellulitis/abscess. Patient had I&D by the surgical team with wound VAC placement . Patient also was treated with vancomycin . Patient also was kept on lisinopril and hydrochlorothiazide along with potassium citrate home medications. I was consulted for acute kidney injury. Patient has normal creatinine at baseline. On May 02 creatinine started to go up. Creatinine yesterday was 2.7 and jumped to 3.8 today. She is making good amount of urine. Nonoliguric. Lisinopril and hydrochlorothiazide were stopped yesterday. UA shows +30 protein. No NSAID use . No IV contrast exposure . No UTIs . No skin rash Renal ultrasound showed small nonobstructive renal calculus Review of system: 12 systems review is negative. [] - Allergies Allergies: Allergies methocarbamol Allergy (Verified 04/30/17 09:40) Chest tightness gabapentin Adverse Reaction (Verified 04/30/17 09:40) MADE ME WALK SIDEWAYS ketorolac tromethamine [From Toradol] Adverse Reaction (Verified 04/30/17 09:40) Upset Stomach NSAIDS (Non-Steroidal Anti-Inflamma Adverse Reaction (Verified 04/30/17 09:40) gastric bipass not supposed to take tramadol Adverse Reaction (Verified 04/30/17 09:40) Upset Stomach - Current Medications Current Medications: Current Medications Amitriptyline HCl (Elavil) 50 mg PO QHS [facility] Last Admin: 05/05/17 22:33 Dose: Not Given Amlodipine Besylate (Norvasc) 10 mg PO DAILY [facility] Last Admin: 05/06/17 09:33 Dose: 10 mg Diazepam (Valium) 5 mg PO 4X/DAY PRN PRN PRN Reason: SPASMS Last Admin: 05/05/17 22:37 Dose: 2.5 mg Ergocalciferol (Vitamin D) 50,000 unit PO TUTH [facility] Last Admin: 05/06/17 09:34 Dose: 50,000 unit Fentanyl (Duragesic) 25 mcg TRANSDERM. Q3D [facility] Last Admin: 05/04/17 22:23 Dose: 25 mcg Hydromorphone HCl (Dilaudid) 1 mg IV Q3H PRN PRN PRN Reason: SEVERE PAIN (6-10/10) Last Admin: 05/06/17 16:57 Dose: 1 mg Cefazolin Sodium 2 gm/ Sodium (Chloride) 120 mls @ 240 mls/hr IV Q12 [facility] Last Admin: 05/06/17 09:37 Dose: 240 mls/hr Labetalol HCl (Trandate) 100 mg PO BID [facility] Last Admin: 05/06/17 09:33 Dose: 100 mg Metronidazole (Flagyl) 500 mg PO TID [facility] Last Admin: 05/06/17 13:42 Dose: 500 mg Nutritional Formula ([place] - [place] Flavor) [facility] Last Admin: 05/06/17 17:00 Dose: Not Given Ondansetron HCl (Zofran) 4 mg IV Q6H PRN PRN PRN Reason: NAUSEA Last Admin: 05/06/17 12:10 Dose: 4 mg Oxycodone HCl (Oxyir) 20 mg PO Q4H PRN PRN PRN Reason: SEVERE PAIN (6-10/10) Last Admin: 05/06/17 13:41 Dose: 20 mg Polysaccharide Iron Complex (Ferrex 150) [facility] Last Admin: 05/06/17 09:35 Dose: 150 mg Promethazine HCl (Phenergan) 25 mg PO Q4H PRN PRN PRN Reason: NAUSEA/VOMITING Simethicone (Mylicon) 80 mg PO BID PRN PRN PRN Reason: Gas Last Admin: 05/05/17 15:29 Dose: 80 mg Sodium Chloride () 5 - 30 ml IV UD PRN PRN Reason: SALINE FLUSH Last Admin: 05/06/17 16:57 Dose: 10 ml Tamsulosin HCl (Flomax) 0.8 mg PO DAILY@0830 [facility] Last Admin: 05/06/17 09:34 Dose: 0.8 mg - Past Medical History Past Medical History (Chronic Problems): Chronic Problems (Last Updated 04/23/17 @ 14:42 by Griselda Chou) Intertrigo (Chronic) abdominal wall skin crease intertrigo Localized adiposity (Chronic) 8 cm painful soft tissue mass pubic area Excessive body weight loss (Chronic) after gastric bypass procedure HTN (hypertension) (Chronic) Nephrolithiasis (Chronic) Ovarian cyst (Chronic) - Past Surgical History Surgical History: cholecystectomy, gastric bypass, - - gastric bypass 04/18/15, thyroid nodular surgery, I+D abdominal wall and pelvic mass 05/03/17, - Social History Smoking Status: Never smoker - Family History Maternal Family History: Family History (Last Updated 04/23/17 @ 14:58 by Griselda Chou) Mother Anxiety Bleeding disorder Depression Hypertension High cholesterol Cancer Father Diabetes Hypertension Grandfather Colon cancer Diabetes Heart disease History Items: Hypertension Paternal Family History: Family History (Last Updated 04/23/17 @ 14:58 by Griselda Chou) Mother Anxiety Bleeding disorder Depression Hypertension High cholesterol Cancer Father Diabetes Hypertension Grandfather Colon cancer Diabetes Heart disease History Items: Hypertension Patient Problems: Active and Suspected Problems (Last Updated 04/23/17 @ 14:42 by Griselda Chou) ERIKA (acute kidney injury) (Acute) Cellulitis of abdominal wall (Acute) Cellulitis of pubic region (Acute) - Physical Exam General: Alert, Oriented x3 HEENT: Atraumatic Oral: Moist Mucosa Neck: Supple, No JVD Lungs: Clear to auscultation, Normal air movement, No rhonchi, No wheeze Cardiovascular: Regular rate, Regular Rhythm, Normal S1, Normal S2, No murmurs Abdomen: Bowel Sounds Present, Soft, Non Tender, - - Wound VAC in place Extremities: No clubbing, No cyanosis, No edema Skin: No rashes Musculoskeletal: No Tenderness to Palpation of Joints or Extremities Lymphatic: No Cervical, Supraclavicular, or Inguinal Adenopathy Neurological: Cranial nerves II-XII grossly intact, Neuro grossly intact Psych/Mental Status: Normal Affect Vital Signs Temp Pulse Resp BP Pulse Ox 98.3 F 96 18 120/67 96 05/06/17 13:34 05/06/17 13:34 05/06/17 13:34 05/06/17 13:34 05/06/17 13:34 Oxygen Delivery Method Room Air Weight: 91.2 kg Body Mass Index (BMI) 32.3 Intake and Output for Last 24 Hours 05/04/17 05/05/17 05/06/17 23:59 23:59 23:59 Intake Total 2126 / 2126 4895 / 4895 4385 / 4385 Output Total 1200 / 1200 Balance 926 / 926 4895 / 4895 4385 / 4385 Microbiology Past 72 Hours 05/03/17 Unknown Gram Stain - Final Tissue - Other Wound Culture - Final Staphylococcus aureus Anaerobic Culture - Preliminary Checking for anaerobes, further studies to follow. Laboratory Tests Past 24 Hrs 05/06/17 05/06/17 06:10 06:10 WBC 7.7 RBC 3.04 L Hgb 8.2 L Hct 25.7 L MCV 84.5 MCH 27.0 MCHC 31.9 L RDW 16.0 H RDW Differential 48.1 H Plt Count 439 MPV 10.3 Immature Gran % (Auto) 0.100 Neut % (Auto) 69.3 Lymph % (Auto) 13.2 L [place] % (Auto) 14.6 H Eos % (Auto) 2.3 Baso % (Auto) 0.5 Absolute Neuts (auto) 5.4 Absolute Lymphs (auto) 1.02 Total Counted Not Reportable Sodium 138 Potassium 4.9 Chloride 103 Carbon Dioxide 26.0 Anion Gap 9 BUN 17 Creatinine 3.87 H Estim Creat Clear Calc 19.72 Est GFR (MDRD) Af Amer 17 L Est GFR (MDRD) Non-Af 14 L BUN/Creatinine Ratio 4.4 L Glucose 87 Calcium 8.4 L Assessment/Plan Active and Suspected Problems (Last Updated 04/23/17 @ 14:42 by Griselda Chou) ERIKA (acute kidney injury) (Acute) Cellulitis of abdominal wall (Acute) Cellulitis of pubic region (Acute) 1-acute kidney injury. Patient has normal creatinine at baseline.UA +1 protein Acute kidney injury is not oliguric. Creatinine is up to 3.8 mg/dL today. Acute kidney injury is most probably from vancomycin/sepsis-induced ATN No need for dialysis. I agree with discontinuation of diuretics and DANDRE inhibitor for now. I will discontinue potassium citrate since her potassium is 4.9. No need for renal replacement therapy. I will continue to monitor kidney function parameters along with urine output and electrolytes Keep mean arterial pressure more than 65. Avoid IV contrast if possible. Avoid NSAIDs. 2-hypertension. Blood pressure is well-controlled. No need for DANDRE inhibitor/ ARB for now. We will continue to monitor. 3-cellulitis/this of the abdominal wall. Status post I&D with wound VAC placement. ID is following for antibiotics. Thank you for the consult. I will continue to follow Please do not hesitate to call me with any question or concern at my cell phone [phone] Maikel Mireles MD
--- NOTE | 2017-05-06 18:53 | PN.SURG_ITS ---
Patient Problems: Active and Suspected Problems (Last Updated 04/23/17 @ 14:42 by Griselda Chou) ERIKA (acute kidney injury) (Acute) Cellulitis of abdominal wall (Acute) Cellulitis of pubic region (Acute) Subjective: Postop #3 Patient complains of wound pain mostly from the VAC. - Physical Exam General: Alert, Oriented x3 HEENT: PERRLA, EOMI Neck: Supple Abdomen: Soft, Non-Distended Extremities: Edema - mild edema in lower extremities. Skin: Ulcer/ Wound - VAC in place. Moderate drainage in the canister. The pubic area is soft with swelling and edema. No evidence of cellulitis. Neurological: Cranial nerves II-XII grossly intact Psych/Mental Status: Normal Affect, Appropriate Vital Signs Temp Pulse Resp BP Pulse Ox 98.3 F 96 18 120/67 96 05/06/17 13:34 05/06/17 13:34 05/06/17 13:34 05/06/17 13:34 05/06/17 13:34 Oxygen Delivery Method Room Air Weight: 201 lb 0.985 oz Body Mass Index (BMI) 32.3 Intake and Output for Last 24 Hours 05/04/17 05/05/17 05/06/17 23:59 23:59 23:59 Intake Total 2126 / 2126 4895 / 4895 4785 / 4785 Output Total 1200 / 1200 Balance 926 / 926 4895 / 4895 4785 / 4785 Microbiology Past 72 Hours 05/03/17 Unknown Gram Stain - Final Tissue - Other Wound Culture - Final Staphylococcus aureus Anaerobic Culture - Preliminary Checking for anaerobes, further studies to follow. Laboratory Tests Past 24 Hrs 05/06/17 05/06/17 06:10 06:10 WBC 7.7 RBC 3.04 L Hgb 8.2 L Hct 25.7 L MCV 84.5 MCH 27.0 MCHC 31.9 L RDW 16.0 H RDW Differential 48.1 H Plt Count 439 MPV 10.3 Immature Gran % (Auto) 0.100 Neut % (Auto) 69.3 Lymph % (Auto) 13.2 L [place] % (Auto) 14.6 H Eos % (Auto) 2.3 Baso % (Auto) 0.5 Absolute Neuts (auto) 5.4 Absolute Lymphs (auto) 1.02 Total Counted Not Reportable Sodium 138 Potassium 4.9 Chloride 103 Carbon Dioxide 26.0 Anion Gap 9 BUN 17 Creatinine 3.87 H Estim Creat Clear Calc 19.72 Est GFR (MDRD) Af Amer 17 L Est GFR (MDRD) Non-Af 14 L BUN/Creatinine Ratio 4.4 L Glucose 87 Calcium 8.4 L Assessment/Plan Active and Suspected Problems (Last Updated 04/23/17 @ 14:42 by Griselda Chou) ERIKA (acute kidney injury) (Acute) Cellulitis of abdominal wall (Acute) Cellulitis of pubic region (Acute) 1. 8 cm painful soft tissue mass pubic area. 2. 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 3. Abdominal wall skin crease intertrigo. 4. s/p excision 8 cm painful soft tissue mass pubic area with 20 cm complex closure. 5. Cellulitis lower anterior abdominal wall and pubic area, improving. 6. Anemia of chronic disease, acute on chronic. 7. History of MRSA. 8. Acute kidney dysfunction with elevated creatinine. VAC in place. Will change three days per week at 150 mmHg continuous suction. Patient states the increased Oxycodone has helped a little. Continue abdominal wall binder only if it provides some compression to the pubic area. Otherwise the athletic supporter is the way to go. She states it rubs against the VAC and is painful. Hgb stable at 8.2. She has anemia of chronic disease with acute on chronic. Probable IV fluid dilution. She is positive 6000 ml in her I/O's. Continue Fe supplementation. She will followup with her PCP regarding her chronic anemia for evaluation since it is quite common to have anemia after gastric bypass surgery. Prealbumin quite low at 9.0. Encourage nutritional supplementation with protein to help the healing process. Continue Ancef and Flagyl. Operative culture showed Staphylococcus aureus. Her Creatinine has increased to 3.87. Renal consult obtained. Renal studies ordered. Ultrasound showed a nonobstructive right kidney stone.
[2017-05-06 21:59] VITALS: BP 126/65; PULSE 92; RESP 18; TEMP 36.9; O2SAT 100
[2017-05-06 22:03] VITALS: PULSE 92; RESP 18; O2SAT 100
[2017-05-06] MEDS: diazePAM 5 MG Tablet PO (22:19)
[2017-05-07] VITALS (7 sets, daily range): BP systolic 117–138; BP diastolic 57–72; PULSE 80–93; RESP 16–18; TEMP 36.8–37.4; O2SAT 95–99
[2017-05-07] MEDS: oxyCODONE 5 MG Tablet 20 MG PO ×4 (03:28→17:55)
[2017-05-07 05:56] LABS: Absolute Lymphocyte Count 0.98 X10^3/ul (0.83-4.51); Absolute Neutrophil Count 4.2 X10^3/uL (2.0-7.7); Basophil# 0.05 X10^3/uL; Basophil% 0.8 % (0-1); Eosinophil# 0.22 X10^3/uL; Eosinophils% 3.4 % (0-5); Hematocrit 25.5 % (37-47); Hemoglobin 8.2 g/dl (12.0-15.0); Lymphocyte # 0.98 X10^3/ul (4.0); Lymphocyte % 15.1 % (19-41); Mean Corp Hgb Conc 32.2 g/gl (32-36); Mean Corpuscular Hgb 27.2 pg (27.0-32.0); Mean Corpuscular Volume 84.7 fL (81-99); Mean Platelet Vol. 10.1 fl (6.2-12.0); Monocyte# 0.99 X10^3/uL; Monocyte% 15.3 % (0-10); Neutrophil # 4.21 X10^3/uL (2.7-7.7); Neutrophil % 65.1 % (47-70); Platelet Count 488 K/mm3 (150-450); RBC Distribution Width SD 47.6 fl (35.1-43.9); Red Blood Count 3.01 M/mm3 (4.2-5.4); White Blood Count 6.5 K/mm3 (4.4-11.0)
[2017-05-07] MEDS: Ondansetron 4 MG/2 ML Vial IV ×2 (06:01→21:09)
[2017-05-07] MEDS: metroNIDAZOLE 500 MG Tablet PO ×3 (06:06→20:54)
[2017-05-07 06:07] LABS: POSITIVE COUNT NO; POSITIVE DIFFERENTIAL NO; POSITIVE MORPHOLOGY NO
[2017-05-07 06:08] LABS: Anion Gap 10 (5-15); BUN 20 mg/dL (7-18); BUN/Creat Ratio 4.7 RATIO (10-20); Calcium,Total 8.5 mg/dL (8.5-10.1); Chloride 104 mmol/L (98-107); Creatinine, Serum 4.26 mg/dL (0.55-1.02); EST Glomerular Filtration Rate 13 mL/min (>60); Est Glom Filt Rate - Afr Amer 16 mL/min (>60); Estimated Creatinine Clearance 17.91 ml/min; Glucose 90 mg/dL (74-106); Potassium 4.5 mmol/L (3.5-5.1); Sodium Level 140 mmol/L (136-145)
[2017-05-07] MEDS: HYDROmorphone 1 MG/ML Syringe IV ×3 (07:57→19:59)
[2017-05-07] MEDS: 0.9% NaCl Peripheral Flush Adult/Peds IV ×2 (07:57→08:56)
--- NOTE | 2017-05-07 08:54 | NURSING ---
wound photo: mid lower abdomen
[2017-05-07] MEDS: Iron Polysaccharide Complex 150 MG CAPSULE PO (08:57)
[2017-05-07] MEDS: Tamsulosin HCl 0.4 MG Capsule 0.8 MG PO (08:57)
--- NOTE | 2017-05-07 10:04 | NURSING ---
called to room by patient, pt discussed desires to change nurses. Discussed her concerns regarding patient care, discussed wound vac change, assessment, nurses request to see any BMs, as well as pain medication administration. Discussed events occurring overnight with changing of the patient's bed. Discussed IV's this admission, and communication regarding plan of care. Agreed to assign new nurse to patient. Did discuss with patient goal of getting her weaned off the IV Dilaudid as would not be going home on it. Patient verbalized understanding. Pt assisted to bathroom, denied all dizziness. Gait steady. Pt states will pull call light when she is completed and denies all further needs. Denied any further concerns. call light within reach. Primary RN informed of pt's concerns and change in assignment. New primary RN Liseth updated as well.
--- NOTE | 2017-05-07 10:16 | PCM.PN.HOSP ---
Patient Problems: Active and Suspected Problems (Last Updated 04/23/17 @ 14:42 by Griselda Chou) ERIKA (acute kidney injury) (Acute) Cellulitis of abdominal wall (Acute) Cellulitis of pubic region (Acute) Subjective: Upset the fact that her kidney function has gotten worse again today. Vitals/I&O's: Vital Signs Temp Pulse Resp BP Pulse Ox 36.9 C 90 16 138/66 H 95 05/07/17 09:11 05/07/17 09:11 05/07/17 09:11 05/07/17 09:11 05/07/17 09:11 Oxygen Delivery Method Room Air Weight: 91.2 kg Body Mass Index (BMI) 32.3 Intake and Output for Last 24 Hours 05/05/17 05/06/17 05/07/17 23:59 23:59 23:59 Intake Total 4895 / 4895 4785 / 4785 866 / 866 Output Total 700 / 700 Balance 4895 / 4895 4785 / 4785 166 / 166 General: Alert, Cooperative, - - Afebrile. HEENT: Atraumatic, Normocephalic Neck: No Nodes, Thyroid Normal Size and Texture Lungs: Clear to auscultation, Normal air movement, No rhonchi, No wheeze Cardiovascular: Regular rate, Regular Rhythm, Normal S1, Normal S2, No murmurs Abdomen: Bowel Sounds Present, Soft, Non Tender, Non-Distended, No Hepato-splenomegaly Extremities: No edema, No Calf Tenderness Psych/Mental Status: Normal Affect, Appropriate Microbiology Past 72 Hours 05/03/17 Unknown Tissue - Other Gram Stain - Final 05/03/17 Unknown Tissue - Other Wound Culture - Final Staphylococcus aureus 05/03/17 Unknown Tissue - Other Anaerobic Culture - Final No anaerobic bacteria isolated. Laboratory Results 05/07/17 05:40: WBC 6.5, RBC 3.01 L, Hgb 8.2 L, Hct 25.5 L, MCV 84.7, MCH 27.2, MCHC 32.2, RDW 16.0 H, RDW Differential 47.6 H, Plt Count 488 H, MPV 10.1, Immature Gran % (Auto) 0.300, Neut % (Auto) 65.1, Lymph % (Auto) 15.1 L, [place] % (Auto) 15.3 H, Eos % (Auto) 3.4, Baso % (Auto) 0.8, Absolute Neuts (auto) 4.2, Absolute Lymphs (auto) 0.98, Total Counted Not Reportable 05/07/17 05:40: Sodium 140, Potassium 4.5, Chloride 104, Carbon Dioxide 26.0, Anion Gap 10, BUN 20 H, Creatinine 4.26 H, Estim Creat Clear Calc 17.91, Est GFR (MDRD) Af Amer 16 L, Est GFR (MDRD) Non-Af 13 L, BUN/Creatinine Ratio 4.7 L, Glucose 90, Calcium 8.5 Current Medications Amitriptyline HCl (Elavil) 50 mg PO QHS [facility] Last Admin: 05/06/17 22:16 Dose: Not Given Amlodipine Besylate (Norvasc) 10 mg PO DAILY [facility] Last Admin: 05/06/17 09:33 Dose: 10 mg Diazepam (Valium) 5 mg PO 4X/DAY PRN PRN PRN Reason: SPASMS Last Admin: 05/06/17 22:19 Dose: 2.5 mg Ergocalciferol (Vitamin D) 50,000 unit PO TUTH [facility] Last Admin: 05/06/17 09:34 Dose: 50,000 unit Fentanyl (Duragesic) 25 mcg TRANSDERM. Q3D [facility] Last Admin: 05/04/17 22:23 Dose: 25 mcg Hydromorphone HCl (Dilaudid) 1 mg IV Q3H PRN PRN PRN Reason: SEVERE PAIN (6-10/10) Last Admin: 05/07/17 07:57 Dose: 1 mg Cefazolin Sodium 2 gm/ Sodium (Chloride) 120 mls @ 240 mls/hr IV Q12 [facility] Last Admin: 05/06/17 22:34 Dose: 240 mls/hr Labetalol HCl (Trandate) 100 mg PO BID [facility] Last Admin: 05/06/17 22:16 Dose: 100 mg Metronidazole (Flagyl) 500 mg PO TID [facility] Last Admin: 05/07/17 06:06 Dose: 500 mg Nutritional Formula (Collins - [place] Flavor) 1 packet PO BIDCM [facility] Last Admin: 05/07/17 08:56 Dose: Not Given Ondansetron HCl (Zofran) 4 mg IV Q6H PRN PRN PRN Reason: NAUSEA Last Admin: 05/07/17 06:01 Dose: 4 mg Oxycodone HCl (Oxyir) 20 mg PO Q4H PRN PRN PRN Reason: SEVERE PAIN (6-10/10) Last Admin: 05/07/17 08:32 Dose: 20 mg Polysaccharide Iron Complex (Ferrex 150) 150 mg PO DAILYCM [facility] Last Admin: 05/07/17 08:57 Dose: 150 mg Promethazine HCl (Phenergan) 25 mg PO Q4H PRN PRN PRN Reason: NAUSEA/VOMITING Simethicone (Mylicon) 80 mg PO BID PRN PRN PRN Reason: Gas Last Admin: 05/07/17 03:28 Dose: 80 mg Sodium Chloride () 5 - 30 ml IV UD PRN PRN Reason: SALINE FLUSH Last Admin: 05/07/17 08:56 Dose: 10 ml Tamsulosin HCl (Flomax) 0.8 mg PO DAILY@0830 [facility] Last Admin: 05/07/17 08:57 Dose: 0.8 mg Assessment/Plan Active and Suspected Problems (Last Updated 04/23/17 @ 14:42 by Griselda Chou) ERIKA (acute kidney injury) (Acute) Cellulitis of abdominal wall (Acute) Cellulitis of pubic region (Acute) 1. ERIKA: I suspect related to the vancomycin given the timing Vanc has been d/c'd Additionally, I have d/c'd the patient's lisinopril and lasix Renal ultrasound showed a nonobstructing stone which is not at all contributing to the patient's renal failure. IVF Fractional excretion of sodium was 5% from lab work from 05/05. Comp getting this is the fact that the patient was on Lasix prior to this measurement. Nephrology following Worse today, but hopefully leveling off 2. Abd wall cellulitis + MSSA Seen by infectious disease and mold insert changer to cefazolin and metronidazole. 3. DVT proph: SCDs Code Visit Inpatient E&M: 45573 Subs Hosp L2
--- NOTE | 2017-05-07 10:19 | PN_ITS ---
Patient Problems: Active and Suspected Problems (Last Updated 04/23/17 @ 14:42 by Griselda Chou) ERIKA (acute kidney injury) (Acute) Cellulitis of abdominal wall (Acute) Cellulitis of pubic region (Acute) Subjective: Upset the fact that her kidney function has gotten worse again today. Vitals/I&O's: Vital Signs Temp Pulse Resp BP Pulse Ox 36.9 C 90 16 138/66 H 95 05/07/17 09:11 05/07/17 09:11 05/07/17 09:11 05/07/17 09:11 05/07/17 09:11 Oxygen Delivery Method Room Air Weight: 91.2 kg Body Mass Index (BMI) 32.3 Intake and Output for Last 24 Hours 05/05/17 05/06/17 05/07/17 23:59 23:59 23:59 Intake Total 4895 / 4895 4785 / 4785 866 / 866 Output Total 700 / 700 Balance 4895 / 4895 4785 / 4785 166 / 166 General: Alert, Cooperative, - - Afebrile. HEENT: Atraumatic, Normocephalic Neck: No Nodes, Thyroid Normal Size and Texture Lungs: Clear to auscultation, Normal air movement, No rhonchi, No wheeze Cardiovascular: Regular rate, Regular Rhythm, Normal S1, Normal S2, No murmurs Abdomen: Bowel Sounds Present, Soft, Non Tender, Non-Distended, No Hepato- splenomegaly Extremities: No edema, No Calf Tenderness Psych/Mental Status: Normal Affect, Appropriate Microbiology Past 72 Hours 05/03/17 Unknown Tissue - Other Gram Stain - Final 05/03/17 Unknown Tissue - Other Wound Culture - Final Staphylococcus aureus 05/03/17 Unknown Tissue - Other Anaerobic Culture - Final No anaerobic bacteria isolated. Laboratory Results 05/07/17 05:40: WBC 6.5, RBC 3.01 L, Hgb 8.2 L, Hct 25.5 L, MCV 84.7, MCH 27.2, MCHC 32.2, RDW 16.0 H, RDW Differential 47.6 H, Plt Count 488 H, MPV 10.1, Immature Gran % (Auto) 0.300, Neut % (Auto) 65.1, Lymph % (Auto) 15.1 L, Powell % (Auto) 15.3 H, Eos % (Auto) 3.4, Baso % (Auto) 0.8, Absolute Neuts (auto) 4.2, Absolute Lymphs (auto) 0.98, Total Counted Not Reportable 05/07/17 05:40: Sodium 140, Potassium 4.5, Chloride 104, Carbon Dioxide 26.0, Anion Gap 10, BUN 20 H, Creatinine 4.26 H, Estim Creat Clear Calc 17.91, Est GFR (MDRD) Af Amer 16 L, Est GFR (MDRD) Non-Af 13 L, BUN/Creatinine Ratio 4.7 L , Glucose 90, Calcium 8.5 Current Medications Amitriptyline HCl (Elavil) 50 mg PO QHS [facility] Last Admin: 05/06/17 22:16 Dose: Not Given Amlodipine Besylate (Norvasc) 10 mg PO DAILY [facility] Last Admin: 05/06/17 09:33 Dose: 10 mg Diazepam (Valium) 5 mg PO 4X/DAY PRN PRN PRN Reason: SPASMS Last Admin: 05/06/17 22:19 Dose: 2.5 mg Ergocalciferol (Vitamin D) 50,000 unit PO TUTH [facility] Last Admin: 05/06/17 09:34 Dose: 50,000 unit Fentanyl (Duragesic) 25 mcg TRANSDERM. Q3D [facility] Last Admin: 05/04/17 22:23 Dose: 25 mcg Hydromorphone HCl (Dilaudid) 1 mg IV Q3H PRN PRN PRN Reason: SEVERE PAIN (6-10/10) Last Admin: 05/07/17 07:57 Dose: 1 mg Cefazolin Sodium 2 gm/ Sodium (Chloride) 120 mls @ 240 mls/hr IV Q12 [facility] Last Admin: 05/06/17 22:34 Dose: 240 mls/hr Labetalol HCl (Trandate) 100 mg PO BID [facility] Last Admin: 05/06/17 22:16 Dose: 100 mg Metronidazole (Flagyl) 500 mg PO TID [facility] Last Admin: 05/07/17 06:06 Dose: 500 mg Nutritional Formula (Collins - [place] Flavor) 1 packet PO BIDCM [facility] Last Admin: 05/07/17 08:56 Dose: Not Given Ondansetron HCl (Zofran) 4 mg IV Q6H PRN PRN PRN Reason: NAUSEA Last Admin: 05/07/17 06:01 Dose: 4 mg Oxycodone HCl (Oxyir) 20 mg PO Q4H PRN PRN PRN Reason: SEVERE PAIN (6-10/10) Last Admin: 05/07/17 08:32 Dose: 20 mg Polysaccharide Iron Complex (Ferrex 150) 150 mg PO DAILYCM [facility] Last Admin: 05/07/17 08:57 Dose: 150 mg Promethazine HCl (Phenergan) 25 mg PO Q4H PRN PRN PRN Reason: NAUSEA/VOMITING Simethicone (Mylicon) 80 mg PO BID PRN PRN PRN Reason: Gas Last Admin: 05/07/17 03:28 Dose: 80 mg Sodium Chloride () 5 - 30 ml IV UD PRN PRN Reason: SALINE FLUSH Last Admin: 05/07/17 08:56 Dose: 10 ml Tamsulosin HCl (Flomax) 0.8 mg PO DAILY@0830 [facility] Last Admin: 05/07/17 08:57 Dose: 0.8 mg Assessment/Plan Active and Suspected Problems (Last Updated 04/23/17 @ 14:42 by Griselda Chou) ERIKA (acute kidney injury) (Acute) Cellulitis of abdominal wall (Acute) Cellulitis of pubic region (Acute) 1. ERIKA: * I suspect related to the vancomycin given the timing * Vanc has been d/c'd * Additionally, I have d/c'd the patient's lisinopril and lasix * Renal ultrasound showed a nonobstructing stone which is not at all contributing to the patient's renal failure. * IVF * Fractional excretion of sodium was 5% from lab work from 05/05. Comp getting this is the fact that the patient was on Lasix prior to this measurement. * Nephrology following * Worse today, but hopefully leveling off 2. 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 3. DVT proph: SCDs Code Visit Inpatient E&M: 90258 Subs Hosp L2
--- NOTE | 2017-05-07 10:27 | PN.RENAL_ITS ---
Patient Problems: Active and Suspected Problems (Last Updated 04/23/17 @ 14:42 by Griselda Chou) ERIKA (acute kidney injury) (Acute) Cellulitis of abdominal wall (Acute) Cellulitis of pubic region (Acute) Subjective: No acute complaints. Doing okay No nausea No vomiting. No SOB. No CP - Physical Exam General: Alert, Oriented x3 HEENT: Atraumatic Oral: Moist Mucosa Neck: Supple, No JVD Lungs: Clear to auscultation, Normal air movement, No rhonchi, No wheeze Cardiovascular: Regular rate, Regular Rhythm, Normal S1, No murmurs Abdomen: Bowel Sounds Present, Soft, Non Tender Extremities: No clubbing, No cyanosis, No edema Skin: No rashes Musculoskeletal: No Tenderness to Palpation of Joints or Extremities Lymphatic: No Cervical, Supraclavicular, or Inguinal Adenopathy Neurological: Cranial nerves II-XII grossly intact, Neuro grossly intact Psych/Mental Status: Normal Affect Vital Signs Temp Pulse Resp BP Pulse Ox 98.5 F 90 16 138/66 H 95 05/07/17 09:11 05/07/17 09:11 05/07/17 09:11 05/07/17 09:11 05/07/17 09:11 Oxygen Delivery Method Room Air Weight: 91.2 kg Body Mass Index (BMI) 32.3 Intake and Output for Last 24 Hours 05/05/17 05/06/17 05/07/17 23:59 23:59 23:59 Intake Total 4895 / 4895 4785 / 4785 866 / 866 Output Total 700 / 700 Balance 4895 / 4895 4785 / 4785 166 / 166 Microbiology Past 72 Hours 05/03/17 Unknown Gram Stain - Final Tissue - Other Wound Culture - Final Staphylococcus aureus Anaerobic Culture - Final No anaerobic bacteria isolated. Laboratory Tests Past 24 Hrs 05/07/17 05/07/17 05:40 05:40 WBC 6.5 RBC 3.01 L Hgb 8.2 L Hct 25.5 L MCV 84.7 MCH 27.2 MCHC 32.2 RDW 16.0 H RDW Differential 47.6 H Plt Count 488 H MPV 10.1 Immature Gran % (Auto) 0.300 Neut % (Auto) 65.1 Lymph % (Auto) 15.1 L Stokes % (Auto) 15.3 H Eos % (Auto) 3.4 Baso % (Auto) 0.8 Absolute Neuts (auto) 4.2 Absolute Lymphs (auto) 0.98 Total Counted Not Reportable Sodium 140 Potassium 4.5 Chloride 104 Carbon Dioxide 26.0 Anion Gap 10 BUN 20 H Creatinine 4.26 H Estim Creat Clear Calc 17.91 Est GFR (MDRD) Af Amer 16 L Est GFR (MDRD) Non-Af 13 L BUN/Creatinine Ratio 4.7 L Glucose 90 Calcium 8.5 Assessment/Plan Active and Suspected Problems (Last Updated 04/23/17 @ 14:42 by Griselda Chou) ERIKA (acute kidney injury) (Acute) Cellulitis of abdominal wall (Acute) Cellulitis of pubic region (Acute) 1-acute kidney injury. Patient has normal creatinine at baseline.UA +1 protein Non oliguric. ERIKA is most probably from vancomycin/sepsis-induced ATN Cr is trending up 2.7>3.8> 4.2 mg/dL No need for dialysis. Hopefully, Cr will reach its plateau soon and then start to improve Continue holding diuretics.ACEI for now No need for renal replacement therapy. I will continue to monitor kidney function parameters along with urine output and electrolytes Keep mean arterial pressure more than 65. Avoid IV contrast if possible. Avoid NSAIDs. 2-hypertension. Blood pressure is well-controlled. continue norvasc and labetalol. Avoid ACEI/ARB We will continue to monitor. 3-cellulitis/this of the abdominal wall. Status post I&D with wound VAC placement. ID is following for antibiotics. Thank you for the consult. I will continue to follow Please do not hesitate to call me with any question or concern at my cell phone [phone] Maikel Mireles MD
[2017-05-07] MEDS: Cefazolin 2 GM in 0.9% Normal Saline 100 ML IV (10:33)
[2017-05-07] MEDS: amLODIPine 10 MG Tablet PO (10:33)
[2017-05-07] MEDS: Labetalol 100 MG Tablet PO ×2 (10:33→20:55)
--- NOTE | 2017-05-07 14:36 | PN.ID_ITS ---
Patient Problems: Active and Suspected Problems (Last Updated 04/23/17 @ 14:42 by Griselda Chou) ERIKA (acute kidney injury) (Acute) Cellulitis of abdominal wall (Acute) Cellulitis of pubic region (Acute) Subjective: Feeling ok but tired after wound vac change and sitting up for lunch. No fever. Did notice blood in vulva while going to the bathroom. Says she has regular periods and is not due, no other associated symptoms. No further bleeding. - Physical Exam General: Alert, Cooperative, No apparent distress Lungs: Clear to auscultation, Normal air movement Cardiovascular: Regular rate, Regular Rhythm Abdomen: Soft, Non Tender, Non-Distended Skin: Ulcer/ Wound - reviewed photos from today Vital Signs Temp Pulse Resp BP Pulse Ox 98.6 F 90 18 124/67 H 97 05/07/17 14:02 05/07/17 14:02 05/07/17 14:02 05/07/17 14:02 05/07/17 14:02 Oxygen Delivery Method Room Air Weight: 91.2 kg Body Mass Index (BMI) 32.3 Intake and Output for Last 24 Hours 05/05/17 05/06/17 05/07/17 23:59 23:59 23:59 Intake Total 4895 / 4895 4785 / 4785 1301 / 1301 Output Total 1400 / 1400 Balance 4895 / 4895 4785 / 4785 -99 / -99 Microbiology Past 72 Hours 05/03/17 Unknown Gram Stain - Final Tissue - Other Wound Culture - Final Staphylococcus aureus Anaerobic Culture - Final No anaerobic bacteria isolated. Laboratory Tests Past 24 Hrs 05/07/17 05/07/17 05:40 05:40 WBC 6.5 RBC 3.01 L Hgb 8.2 L Hct 25.5 L MCV 84.7 MCH 27.2 MCHC 32.2 RDW 16.0 H RDW Differential 47.6 H Plt Count 488 H MPV 10.1 Immature Gran % (Auto) 0.300 Neut % (Auto) 65.1 Lymph % (Auto) 15.1 L Weber % (Auto) 15.3 H Eos % (Auto) 3.4 Baso % (Auto) 0.8 Absolute Neuts (auto) 4.2 Absolute Lymphs (auto) 0.98 Total Counted Not Reportable Sodium 140 Potassium 4.5 Chloride 104 Carbon Dioxide 26.0 Anion Gap 10 BUN 20 H Creatinine 4.26 H Estim Creat Clear Calc 17.91 Est GFR (MDRD) Af Amer 16 L Est GFR (MDRD) Non-Af 13 L BUN/Creatinine Ratio 4.7 L Glucose 90 Calcium 8.5 Route of nutrition/ use of supplements: [] Nutritional Intake: [] IV Site: [] Adhikari Catheter: [] - Assessment/Plan Antibiotics: [] Assessment/Plan: [] Active and Suspected Problems (Last Updated 04/23/17 @ 14:42 by Griselda Chou) ERIKA (acute kidney injury) (Acute) Cellulitis of abdominal wall (Acute) Cellulitis of pubic region (Acute) MSSA abd wall abscess/hematoma after surgery 04/20/[address] Mendieta - taken back to OR 05/03, cx and pcr (+) for MSSA. Now with ERIKA. Has h/o recurrent kidney stones. Urine eos pending and renal u/s showed non-obstructing stone. 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 Stopped vanc/zosyn. On cefazolin and flagyl for narrower coverage based on cx results and lower risk of nephrotoxicity. Cr up again today, neph following. Decrease cefazolin to q24. Bleeding - menstruation vs kidney stone seems like most likely explanation. No further blood present on pad. will follow. D/w nursing.
--- NOTE | 2017-05-07 15:05 | PCM.PN.SRG ---
Patient Problems: Active and Suspected Problems (Last Updated 04/23/17 @ 14:42 by Griselda Chou) ERIKA (acute kidney injury) (Acute) Cellulitis of abdominal wall (Acute) Cellulitis of pubic region (Acute) Subjective: Postop #4 Patient had a VAC change which was painful. She complains of more swelling and pain in her pubic area. Patient is frustrated because of kidney situation. She is anxious to go home. - Physical Exam General: Alert, Oriented x3 HEENT: PERRLA, EOMI Oral: Moist Mucosa Neck: Supple Abdomen: Soft, Non-Distended Extremities: No clubbing, No cyanosis, Edema - mild edema in lower extremities. Skin: Ulcer/ Wound - VAC was changed today. It was painful but she tolerated it reasonably well. Needed IV analgesia. Good granulation tissue is seen. No bleeding. The pubic area is a little more swollen with some mild cellulitis. Almost like a lymphedema picture with lymphangitis. Lymphatic: - - no inguinal adenopathy. Neurological: Cranial nerves II-XII grossly intact Psych/Mental Status: Normal Affect, Appropriate Vital Signs Temp Pulse Resp BP Pulse Ox 98.6 F 90 18 124/67 H 97 05/07/17 14:02 05/07/17 14:02 05/07/17 14:02 05/07/17 14:02 05/07/17 14:02 Oxygen Delivery Method Room Air Weight: 201 lb 0.985 oz Body Mass Index (BMI) 32.3 Intake and Output for Last 24 Hours 05/05/17 05/06/17 05/07/17 23:59 23:59 23:59 Intake Total 4895 / 4895 4785 / 4785 1301 / 1301 Output Total 1400 / 1400 Balance 4895 / 4895 4785 / 4785 -99 / -99 Microbiology Past 72 Hours 05/03/17 Unknown Gram Stain - Final Tissue - Other Wound Culture - Final Staphylococcus aureus Anaerobic Culture - Final No anaerobic bacteria isolated. Laboratory Tests Past 24 Hrs 05/07/17 05/07/17 05:40 05:40 WBC 6.5 RBC 3.01 L Hgb 8.2 L Hct 25.5 L MCV 84.7 MCH 27.2 MCHC 32.2 RDW 16.0 H RDW Differential 47.6 H Plt Count 488 H MPV 10.1 Immature Gran % (Auto) 0.300 Neut % (Auto) 65.1 Lymph % (Auto) 15.1 L Dukes % (Auto) 15.3 H Eos % (Auto) 3.4 Baso % (Auto) 0.8 Absolute Neuts (auto) 4.2 Absolute Lymphs (auto) 0.98 Total Counted Not Reportable Sodium 140 Potassium 4.5 Chloride 104 Carbon Dioxide 26.0 Anion Gap 10 BUN 20 H Creatinine 4.26 H Estim Creat Clear Calc 17.91 Est GFR (MDRD) Af Amer 16 L Est GFR (MDRD) Non-Af 13 L BUN/Creatinine Ratio 4.7 L Glucose 90 Calcium 8.5 Assessment/Plan Active and Suspected Problems (Last Updated 04/23/17 @ 14:42 by Griselda Chou) ERIKA (acute kidney injury) (Acute) Cellulitis of abdominal wall (Acute) Cellulitis of pubic region (Acute) 1. 8 cm painful soft tissue mass pubic area. 2. 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 3. Abdominal wall skin crease intertrigo. 4. s/p excision 8 cm painful soft tissue mass pubic area with 20 cm complex closure. 5. Cellulitis lower anterior abdominal wall and pubic area, improving. 6. Anemia of chronic disease, acute on chronic, stable. 7. History of MRSA. 8. Acute kidney dysfunction with elevated creatinine. VAC was changed today. She tolerated it reasonably well. Needed IV analgesia. Continue abdominal wall binder only if it provides some compression to the pubic area. Otherwise the athletic supporter is the way to go. She states it rubs against the VAC and is painful. Will get a larger one after discharge. Hgb stable at 8.2. She has anemia of chronic disease with acute on chronic. Probable IV fluid dilution. No evidence of bleeding in the pubic wound. Continue Fe supplementation. She will followup with her PCP regarding her chronic anemia for evaluation since it is quite common to have anemia after gastric bypass surgery. Prealbumin quite low at 9.0. Encourage nutritional supplementation with protein to help the healing process. Will recheck on Wednesday. Continue Ancef and Flagyl. Operative culture showed Staphylococcus aureus. Her Creatinine has increased to 4.26. Renal consult obtained. Ultrasound showed a nonobstructive right kidney stone.
[2017-05-07] MEDS: fentaNYL 25 MCG Patch TRANSDERM. (20:51)
[2017-05-07] MEDS: Amitriptyline 25 MG Tablet 50 MG PO (20:54)
[2017-05-08 03:26] VITALS: BP 137/78; PULSE 95; RESP 18; TEMP 37.2; O2SAT 100
[2017-05-08] MEDS: oxyCODONE 5 MG Tablet 20 MG PO ×4 (03:31→18:21)
[2017-05-08 03:32] VITALS: PULSE 95; RESP 18; O2SAT 100
[2017-05-08] MEDS: metroNIDAZOLE 500 MG Tablet PO ×3 (06:40→21:19)
[2017-05-08 06:58] LABS: Absolute Lymphocyte Count 0.92 X10^3/ul (0.83-4.51); Absolute Neutrophil Count 3.6 X10^3/uL (2.0-7.7); Basophil# 0.04 X10^3/uL; Basophil% 0.7 % (0-1); Eosinophil# 0.25 X10^3/uL; Eosinophils% 4.2 % (0-5); Hematocrit 26.9 % (37-47); Hemoglobin 8.6 g/dl (12.0-15.0); Lymphocyte # 0.92 X10^3/ul (4.0); Lymphocyte % 15.3 % (19-41); Mean Corpuscular Volume 84.6 fL (81-99); Mean Platelet Vol. 10.3 fl (6.2-12.0); Monocyte# 1.14 X10^3/uL; Neutrophil # 3.64 X10^3/uL (2.7-7.7); Neutrophil % 60.6 % (47-70); Platelet Count 526 K/mm3 (150-450); RBC Distribution Width SD 48.2 fl (35.1-43.9); Red Blood Count 3.18 M/mm3 (4.2-5.4)
[2017-05-08 07:03] LABS: POSITIVE COUNT NO; POSITIVE DIFFERENTIAL NO; POSITIVE MORPHOLOGY NO
[2017-05-08 07:05] LABS: Anion Gap 11 (5-15); BUN 20 mg/dL (7-18); BUN/Creat Ratio 4.7 RATIO (10-20); Calcium,Total 8.4 mg/dL (8.5-10.1); Chloride 105 mmol/L (98-107); EST Glomerular Filtration Rate 13 mL/min (>60); Est Glom Filt Rate - Afr Amer 15 mL/min (>60); Estimated Creatinine Clearance 17.75 ml/min; Glucose 89 mg/dL (74-106); Potassium 4.4 mmol/L (3.5-5.1); Sodium Level 139 mmol/L (136-145)
[2017-05-08 07:59] VITALS: BP 131/72; PULSE 89; RESP 16; TEMP 37.2; O2SAT 97
[2017-05-08] MEDS: Iron Polysaccharide Complex 150 MG CAPSULE PO (08:21)
[2017-05-08] MEDS: Tamsulosin HCl 0.4 MG Capsule 0.8 MG PO (08:21)
[2017-05-08] MEDS: Labetalol 100 MG Tablet PO ×2 (08:21→21:19)
[2017-05-08] MEDS: amLODIPine 10 MG Tablet PO (08:22)
--- NOTE | 2017-05-08 08:55 | PCM.PN.HOSP ---
Patient Problems: Active and Suspected Problems (Last Updated 04/23/17 @ 14:42 by Griselda Chou) ERIKA (acute kidney injury) (Acute) Cellulitis of abdominal wall (Acute) Cellulitis of pubic region (Acute) Vitals/I&O's: Vital Signs Temp Pulse Resp BP Pulse Ox 99.0 F 89 16 131/72 H 97 05/08/17 07:59 05/08/17 07:59 05/08/17 07:59 05/08/17 07:59 05/08/17 07:59 Oxygen Delivery Method Room Air Weight: 91.2 kg Body Mass Index (BMI) 32.3 Intake and Output for Last 24 Hours 05/06/17 05/07/17 05/08/17 23:59 23:59 23:59 Intake Total 4785 / 4785 1850 / 1850 446 / 446 Output Total 1979 / 1979 800 / 800 Balance 4785 / 4785 -130 / -130 -354 / -354 Microbiology Past 72 Hours 05/03/17 Unknown Tissue - Other Gram Stain - Final 05/03/17 Unknown Tissue - Other Wound Culture - Final Staphylococcus aureus 05/03/17 Unknown Tissue - Other Anaerobic Culture - Final No anaerobic bacteria isolated. Laboratory Results 05/05/17 07:28: Eos Smear Total Cells Pending 05/08/17 05:45: WBC 6.0, RBC 3.18 L, Hgb 8.6 L, Hct 26.9 L, MCV 84.6, MCH 27.0, MCHC 32.0, RDW 16.0 H, RDW Differential 48.2 H, Plt Count 526 H, MPV 10.3, Immature Gran % (Auto) 0.200, Neut % (Auto) 60.6, Lymph % (Auto) 15.3 L, Arthur % (Auto) 19.0 H, Eos % (Auto) 4.2, Baso % (Auto) 0.7, Absolute Neuts (auto) 3.6, Absolute Lymphs (auto) 0.92, Total Counted Not Reportable 05/08/17 05:45: Sodium 139, Potassium 4.4, Chloride 105, Carbon Dioxide 23.0, Anion Gap 11, BUN 20 H, Creatinine 4.30 H, Estim Creat Clear Calc 17.75, Est GFR (MDRD) Af Amer 15 L, Est GFR (MDRD) Non-Af 13 L, BUN/Creatinine Ratio 4.7 L, Glucose 89, Calcium 8.4 L Current Medications Amitriptyline HCl (Elavil) 50 mg PO QHS [facility] Last Admin: 05/07/17 20:54 Dose: 50 mg Amlodipine Besylate (Norvasc) 10 mg PO DAILY [facility] Last Admin: 05/08/17 08:22 Dose: 10 mg Diazepam (Valium) 5 mg PO 4X/DAY PRN PRN PRN Reason: SPASMS Last Admin: 05/06/17 22:19 Dose: 2.5 mg Ergocalciferol (Vitamin D) 50,000 unit PO TUTH [facility] Last Admin: 05/06/17 09:34 Dose: 50,000 unit Fentanyl (Duragesic) 25 mcg TRANSDERM. Q3D [facility] Last Admin: 05/07/17 20:51 Dose: 25 mcg Hydromorphone HCl (Dilaudid) 1 mg IV Q3H PRN PRN PRN Reason: SEVERE PAIN (6-10/10) Last Admin: 05/07/17 19:59 Dose: 1 mg Cefazolin Sodium 2 gm/ Sodium (Chloride) 120 mls @ 240 mls/hr IV Q24 [facility] Labetalol HCl (Trandate) 100 mg PO BID [facility] Last Admin: 05/08/17 08:21 Dose: 100 mg Metronidazole (Flagyl) 500 mg PO TID [facility] Last Admin: 05/08/17 06:40 Dose: 500 mg Nutritional Formula (Collins - [place] Flavor) [facility] Last Admin: 05/08/17 08:20 Dose: Not Given Ondansetron HCl (Zofran) 4 mg IV Q6H PRN PRN PRN Reason: NAUSEA Last Admin: 05/07/17 21:09 Dose: 4 mg Oxycodone HCl (Oxyir) 20 mg PO Q4H PRN PRN PRN Reason: SEVERE PAIN (6-10/10) Last Admin: 05/08/17 07:36 Dose: 20 mg Polysaccharide Iron Complex (Ferrex 150) [facility] Last Admin: 05/08/17 08:21 Dose: 150 mg Promethazine HCl (Phenergan) 25 mg PO Q4H PRN PRN PRN Reason: NAUSEA/VOMITING Simethicone (Mylicon) 80 mg PO BID PRN PRN PRN Reason: Gas Last Admin: 05/07/17 13:59 Dose: 80 mg Sodium Chloride () 5 - 30 ml IV UD PRN PRN Reason: SALINE FLUSH Last Admin: 05/07/17 08:56 Dose: 10 ml Tamsulosin HCl (Flomax) 0.8 mg PO DAILY@0830 [facility] Last Admin: 05/08/17 08:21 Dose: 0.8 mg Assessment/Plan Active and Suspected Problems (Last Updated 04/23/17 @ 14:42 by Griselda Chou) ERIKA (acute kidney injury) (Acute) Cellulitis of abdominal wall (Acute) Cellulitis of pubic region (Acute)
--- NOTE | 2017-05-08 09:33 | PCM.PN.SRG ---
Patient Problems: Active and Suspected Problems (Last Updated 04/23/17 @ 14:42 by Griselda Chou) ERIKA (acute kidney injury) (Acute) Cellulitis of abdominal wall (Acute) Cellulitis of pubic region (Acute) Subjective: Postop #5 Patient resting comfortably. Waiting for kidney function to improve so she can go home. - Physical Exam General: Alert, Oriented x3 HEENT: PERRLA, EOMI Neck: Supple Abdomen: Soft, Non-Distended Skin: Ulcer/ Wound - VAC in place. Canister is almost full. The pubic area is a little less swollen. Mild cellulitis seen yesterday has improved. Almost like a lymphedema picture with lymphangitis that waxes and wanes. Lymphatic: - - no inguinal adenopathy. Neurological: Cranial nerves II-XII grossly intact Psych/Mental Status: Normal Affect, Appropriate Vital Signs Temp Pulse Resp BP Pulse Ox 99.0 F 89 16 131/72 H 97 05/08/17 07:59 05/08/17 07:59 05/08/17 07:59 05/08/17 07:59 05/08/17 07:59 Oxygen Delivery Method Room Air Weight: 201 lb 0.985 oz Body Mass Index (BMI) 32.3 Intake and Output for Last 24 Hours 05/06/17 05/07/17 05/08/17 23:59 23:59 23:59 Intake Total 4785 / 4785 1850 / 1850 446 / 446 Output Total 1979 / 1979 800 / 800 Balance 4785 / 4785 -130 / -130 -354 / -354 Microbiology Past 72 Hours 05/03/17 Unknown Gram Stain - Final Tissue - Other Wound Culture - Final Staphylococcus aureus Anaerobic Culture - Final No anaerobic bacteria isolated. Laboratory Tests Past 24 Hrs 05/05/17 05/08/17 05/08/17 07:28 05:45 05:45 WBC 6.0 RBC 3.18 L Hgb 8.6 L Hct 26.9 L MCV 84.6 MCH 27.0 MCHC 32.0 RDW 16.0 H RDW Differential 48.2 H Plt Count 526 H MPV 10.3 Immature Gran % (Auto) 0.200 Neut % (Auto) 60.6 Lymph % (Auto) 15.3 L [place] % (Auto) 19.0 H Eos % (Auto) 4.2 Baso % (Auto) 0.7 Absolute Neuts (auto) 3.6 Absolute Lymphs (auto) 0.92 Total Counted Not Reportable Eos Smear Total Cells Pending Sodium 139 Potassium 4.4 Chloride 105 Carbon Dioxide 23.0 Anion Gap 11 BUN 20 H Creatinine 4.30 H Estim Creat Clear Calc 17.75 Est GFR (MDRD) Af Amer 15 L Est GFR (MDRD) Non-Af 13 L BUN/Creatinine Ratio 4.7 L Glucose 89 Calcium 8.4 L Assessment/Plan Active and Suspected Problems (Last Updated 04/23/17 @ 14:42 by Griselda Chou) ERIKA (acute kidney injury) (Acute) Cellulitis of abdominal wall (Acute) Cellulitis of pubic region (Acute) 1. 8 cm painful soft tissue mass pubic area. 2. 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 3. Abdominal wall skin crease intertrigo. 4. s/p excision 8 cm painful soft tissue mass pubic area with 20 cm complex closure. 5. Cellulitis lower anterior abdominal wall and pubic area, improving. 6. Anemia of chronic disease, acute on chronic, stable. 7. History of MRSA. 8. Acute kidney dysfunction with elevated creatinine. VAC in place. Canister is almost full. Continue abdominal wall binder only if it provides some compression to the pubic area. Otherwise the athletic supporter is the way to go. She states it rubs against the VAC and is painful. Will get a larger one after discharge. Mild cellulitis seen yesterday in the pubic area has improved. Hgb stable at 8.6. She has anemia of chronic disease with acute on chronic. Probable IV fluid dilution. No evidence of bleeding in the pubic wound. Continue Fe supplementation. She will followup with her PCP regarding her chronic anemia for evaluation since it is quite common to have anemia after gastric bypass surgery. Prealbumin quite low at 9.0. Encourage nutritional supplementation with protein to help the healing process. Will recheck on Wednesday. Continue Ancef and Flagyl. Operative culture showed Staphylococcus aureus. Her Creatinine has increased minimally to 4.30. Hopefully it has peaked and will start to decrease. Renal consult obtained. Ultrasound showed a nonobstructive right kidney stone.
--- NOTE | 2017-05-08 10:37 | PCM.PN.HOSP ---
Patient Problems: Active and Suspected Problems (Last Updated 04/23/17 @ 14:42 by Griselda Cohu) ERIKA (acute kidney injury) (Acute) Cellulitis of abdominal wall (Acute) Cellulitis of pubic region (Acute) Subjective: Seen and examined. She feels well today and sees was able to ambulate around. She denies any fever or chills, any shortness of breath any diarrhea vomiting. She still has no abdominal pain at the site of the wound VAC and says prior to being given her pain medication was rated at 6/10. Pain is currently have a 3/10. Review of systems is otherwise negative. Patient is still very concerned about her kidney function and wants to know what her kidney function level yesterday. Objective: Patient is a 32-year-old female with a past medical history of morbid obesity status post gastric bypass surgery, recurrent kidney stones and hypertension was admitted for abdominal wall cellulitis and abscess. She is status post I&D by surgery with wound VAC placement. She was started on vancomycin and subsequently developed a UTI. Vancomycin was DC'd and she is now on cefazolin. Nephrology is on board on account of HPI and she has remained stable. Vitals/I&O's: Vital Signs Temp Pulse Resp BP Pulse Ox 99.0 F 89 16 131/72 H 97 05/08/17 07:59 05/08/17 07:59 05/08/17 07:59 05/08/17 07:59 05/08/17 07:59 Oxygen Delivery Method Room Air Weight: 201 lb 0.985 oz Body Mass Index (BMI) 32.3 Intake and Output for Last 24 Hours 05/06/17 05/07/17 05/08/17 23:59 23:59 23:59 Intake Total 4785 / 4785 1850 / 1850 446 / 446 Output Total 1979 / 1979 800 / 800 Balance 4785 / 4785 -130 / -130 -354 / -354 General: Alert, Oriented x3, Cooperative, No apparent distress HEENT: Atraumatic, PERRLA, EOMI, Normocephalic Oral: Moist Mucosa Neck: Supple, No JVD, Negative Carotid Bruits Lungs: Clear to auscultation, Normal air movement, No rhonchi, No wheeze, No rales Cardiovascular: Regular rate, Regular Rhythm, Normal S1, Normal S2, No murmurs Abdomen: Bowel Sounds Present, Soft, Non Tender, Non-Distended, No Hepato-splenomegaly Extremities: No clubbing, No cyanosis, No edema, Capillary Refill Less than 3 Seconds Skin: - - Wound VAC applied over lower abdomen. Area is mildly tender. No redness observed. Musculoskeletal: No Tenderness to Palpation of Joints or Extremities Lymphatic: No Cervical, Supraclavicular, or Inguinal Adenopathy Neurological: Cranial nerves II-XII grossly intact, Motor Exam 5/5 strength throughout Psych/Mental Status: Normal Affect, Appropriate, Alert and oriented to time, place, person, mood and affect Microbiology Past 72 Hours 05/03/17 Unknown Tissue - Other Gram Stain - Final 05/03/17 Unknown Tissue - Other Wound Culture - Final Staphylococcus aureus 05/03/17 Unknown Tissue - Other Anaerobic Culture - Final No anaerobic bacteria isolated. Laboratory Results 05/05/17 07:28: Eos Smear Total Cells Pending 05/08/17 05:45: WBC 6.0, RBC 3.18 L, Hgb 8.6 L, Hct 26.9 L, MCV 84.6, MCH 27.0, MCHC 32.0, RDW 16.0 H, RDW Differential 48.2 H, Plt Count 526 H, MPV 10.3, Immature Gran % (Auto) 0.200, Neut % (Auto) 60.6, Lymph % (Auto) 15.3 L, [place] % (Auto) 19.0 H, Eos % (Auto) 4.2, Baso % (Auto) 0.7, Absolute Neuts (auto) 3.6, Absolute Lymphs (auto) 0.92, Total Counted Not Reportable 05/08/17 05:45: Sodium 139, Potassium 4.4, Chloride 105, Carbon Dioxide 23.0, Anion Gap 11, BUN 20 H, Creatinine 4.30 H, Estim Creat Clear Calc 17.75, Est GFR (MDRD) Af Amer 15 L, Est GFR (MDRD) Non-Af 13 L, BUN/Creatinine Ratio 4.7 L, Glucose 89, Calcium 8.4 L Current Medications Amitriptyline HCl (Elavil) 50 mg PO QHS [facility] Last Admin: 05/07/17 20:54 Dose: 50 mg Amlodipine Besylate (Norvasc) 10 mg PO DAILY [facility] Last Admin: 05/08/17 08:22 Dose: 10 mg Diazepam (Valium) 5 mg PO 4X/DAY PRN PRN PRN Reason: SPASMS Last Admin: 05/06/17 22:19 Dose: 2.5 mg Ergocalciferol (Vitamin D) 50,000 unit PO TUTH [facility] Last Admin: 05/06/17 09:34 Dose: 50,000 unit Fentanyl (Duragesic) 25 mcg TRANSDERM. Q3D [facility] Last Admin: 05/07/17 20:51 Dose: 25 mcg Hydromorphone HCl (Dilaudid) 1 mg IV Q3H PRN PRN PRN Reason: SEVERE PAIN (6-10/10) Last Admin: 05/07/17 19:59 Dose: 1 mg Cefazolin Sodium 2 gm/ Sodium (Chloride) 120 mls @ 240 mls/hr IV Q24 [facility] Labetalol HCl (Trandate) 100 mg PO BID [facility] Last Admin: 05/08/17 08:21 Dose: 100 mg Metronidazole (Flagyl) 500 mg PO TID [facility] Last Admin: 05/08/17 06:40 Dose: 500 mg Nutritional Formula ([place] - [place] Flavor) [facility] Last Admin: 05/08/17 08:20 Dose: Not Given Ondansetron HCl (Zofran) 4 mg IV Q6H PRN PRN PRN Reason: NAUSEA Last Admin: 05/07/17 21:09 Dose: 4 mg Oxycodone HCl (Oxyir) 20 mg PO Q4H PRN PRN PRN Reason: SEVERE PAIN (6-10/10) Last Admin: 05/08/17 07:36 Dose: 20 mg Polysaccharide Iron Complex (Ferrex 150) [facility] Last Admin: 05/08/17 08:21 Dose: 150 mg Promethazine HCl (Phenergan) 25 mg PO Q4H PRN PRN PRN Reason: NAUSEA/VOMITING Simethicone (Mylicon) 80 mg PO BID PRN PRN PRN Reason: Gas Last Admin: 05/07/17 13:59 Dose: 80 mg Sodium Chloride () 5 - 30 ml IV UD PRN PRN Reason: SALINE FLUSH Last Admin: 05/07/17 08:56 Dose: 10 ml Tamsulosin HCl (Flomax) 0.8 mg PO DAILY@0830 [facility] Last Admin: 02/17/18 08:21 Dose: 0.8 mg Assessment/Plan Active and Suspected Problems (Last Updated 04/23/17 @ 14:42 by Griselda Chou) ERIKA (acute kidney injury) (Acute) Cellulitis of abdominal wall (Acute) Cellulitis of pubic region (Acute) 1. Acute kidney injury likely due to vancomycin Creatine is is 4.3 today. Has trended up from 3.87. EGFR is 13 stayed on the same level. Nephrology is on board. Will await recommendations. 2. Abdominal wall cellulitis due to MSSA stable. Wound vac in place. On cefazolin now., general surgery on board 3. Hypertension: controlled. On amlodipine 10mg daily. Lisinopril on hold due to ERIKA 4.History of recurrent kidney stones: stable. CT done for ERIKA showed a nonobstructing stone. On tamsulosin 5. DVT prophylaxis: heparin This note was generated with [employer] dictation software. It may contain incorrect words, spelling, and punctuation that were not noted in checking the note before signing. Code Visit Inpatient E&M: 02003 Subs Hosp L2
--- NOTE | 2017-05-08 10:44 | PN_ITS ---
Patient Problems: Active and Suspected Problems (Last Updated 04/23/17 @ 14:42 by Griselda Chou) ERIKA (acute kidney injury) (Acute) Cellulitis of abdominal wall (Acute) Cellulitis of pubic region (Acute) Subjective: Seen and examined. She feels well today and sees was able to ambulate around. She denies any fever or chills, any shortness of breath any diarrhea vomiting. She still has no abdominal pain at the site of the wound VAC and says prior to being given her pain medication was rated at 6/10. Pain is currently have a 3/ 10. Review of systems is otherwise negative. Patient is still very concerned about her kidney function and wants to know what her kidney function level yesterday. Objective: Patient is a 32-year-old female with a past medical history of morbid obesity status post gastric bypass surgery, recurrent kidney stones and hypertension was admitted for abdominal wall cellulitis and abscess. She is status post I&D by surgery with wound VAC placement. She was started on vancomycin and subsequently developed a UTI. Vancomycin was DC'd and she is now on cefazolin. Nephrology is on board on account of HPI and she has remained stable. Vitals/I&O's: Vital Signs Temp Pulse Resp BP Pulse Ox 99.0 F 89 16 131/72 H 97 05/08/17 07:59 05/08/17 07:59 05/08/17 07:59 05/08/17 07:59 05/08/17 07:59 Oxygen Delivery Method Room Air Weight: 201 lb 0.985 oz Body Mass Index (BMI) 32.3 Intake and Output for Last 24 Hours 05/06/17 05/07/17 05/08/17 23:59 23:59 23:59 Intake Total 4785 / 4785 1850 / 1850 446 / 446 Output Total 1979 / 1979 800 / 800 Balance 4785 / 4785 -130 / -130 -354 / -354 General: Alert, Oriented x3, Cooperative, No apparent distress HEENT: Atraumatic, PERRLA, EOMI, Normocephalic Oral: Moist Mucosa Neck: Supple, No JVD, Negative Carotid Bruits Lungs: Clear to auscultation, Normal air movement, No rhonchi, No wheeze, No rales Cardiovascular: Regular rate, Regular Rhythm, Normal S1, Normal S2, No murmurs Abdomen: Bowel Sounds Present, Soft, Non Tender, Non-Distended, No Hepato- splenomegaly Extremities: No clubbing, No cyanosis, No edema, Capillary Refill Less than 3 Seconds Skin: - - Wound VAC applied over lower abdomen. Area is mildly tender. No redness observed. Musculoskeletal: No Tenderness to Palpation of Joints or Extremities Lymphatic: No Cervical, Supraclavicular, or Inguinal Adenopathy Neurological: Cranial nerves II-XII grossly intact, Motor Exam 5/5 strength throughout Psych/Mental Status: Normal Affect, Appropriate, Alert and oriented to time, place, person, mood and affect Microbiology Past 72 Hours 05/03/17 Unknown Tissue - Other Gram Stain - Final 05/03/17 Unknown Tissue - Other Wound Culture - Final Staphylococcus aureus 05/03/17 Unknown Tissue - Other Anaerobic Culture - Final No anaerobic bacteria isolated. Laboratory Results 05/05/17 07:28: Eos Smear Total Cells Pending 05/08/17 05:45: WBC 6.0, RBC 3.18 L, Hgb 8.6 L, Hct 26.9 L, MCV 84.6, MCH 27.0, MCHC 32.0, RDW 16.0 H, RDW Differential 48.2 H, Plt Count 526 H, MPV 10.3, Immature Gran % (Auto) 0.200, Neut % (Auto) 60.6, Lymph % (Auto) 15.3 L, [place] % (Auto) 19.0 H, Eos % (Auto) 4.2, Baso % (Auto) 0.7, Absolute Neuts (auto) 3.6, Absolute Lymphs (auto) 0.92, Total Counted Not Reportable 05/08/17 05:45: Sodium 139, Potassium 4.4, Chloride 105, Carbon Dioxide 23.0, Anion Gap 11, BUN 20 H, Creatinine 4.30 H, Estim Creat Clear Calc 17.75, Est GFR (MDRD) Af Amer 15 L, Est GFR (MDRD) Non-Af 13 L, BUN/Creatinine Ratio 4.7 L , Glucose 89, Calcium 8.4 L Current Medications Amitriptyline HCl (Elavil) 50 mg PO QHS [facility] Last Admin: 05/07/17 20:54 Dose: 50 mg Amlodipine Besylate (Norvasc) 10 mg PO DAILY [facility] Last Admin: 05/08/17 08:22 Dose: 10 mg Diazepam (Valium) 5 mg PO 4X/DAY PRN PRN PRN Reason: SPASMS Last Admin: 05/06/17 22:19 Dose: 2.5 mg Ergocalciferol (Vitamin D) 50,000 unit PO TUTH [facility] Last Admin: 05/06/17 09:34 Dose: 50,000 unit Fentanyl (Duragesic) 25 mcg TRANSDERM. Q3D [facility] Last Admin: 05/07/17 20:51 Dose: 25 mcg Hydromorphone HCl (Dilaudid) 1 mg IV Q3H PRN PRN PRN Reason: SEVERE PAIN (6-10/10) Last Admin: 05/07/17 19:59 Dose: 1 mg Cefazolin Sodium 2 gm/ Sodium (Chloride) 120 mls @ 240 mls/hr IV Q24 [facility] Labetalol HCl (Trandate) 100 mg PO BID [facility] Last Admin: 05/08/17 08:21 Dose: 100 mg Metronidazole (Flagyl) 500 mg PO TID [facility] Last Admin: 05/08/17 06:40 Dose: 500 mg Nutritional Formula ([place] - [place] Flavor) [facility] Last Admin: 05/08/17 08:20 Dose: Not Given Ondansetron HCl (Zofran) 4 mg IV Q6H PRN PRN PRN Reason: NAUSEA Last Admin: 05/07/17 21:09 Dose: 4 mg Oxycodone HCl (Oxyir) 20 mg PO Q4H PRN PRN PRN Reason: SEVERE PAIN (6-10/10) Last Admin: 05/08/17 07:36 Dose: 20 mg Polysaccharide Iron Complex (Ferrex 150) [facility] Last Admin: 05/08/17 08:21 Dose: 150 mg Promethazine HCl (Phenergan) 25 mg PO Q4H PRN PRN PRN Reason: NAUSEA/VOMITING Simethicone (Mylicon) 80 mg PO BID PRN PRN PRN Reason: Gas Last Admin: 05/07/17 13:59 Dose: 80 mg Sodium Chloride () 5 - 30 ml IV UD PRN PRN Reason: SALINE FLUSH Last Admin: 05/07/17 08:56 Dose: 10 ml Tamsulosin HCl (Flomax) 0.8 mg PO DAILY@0830 [facility] Last Admin: 02/17/18 08:21 Dose: 0.8 mg Assessment/Plan Active and Suspected Problems (Last Updated 04/23/17 @ 14:42 by Griselda Chou) ERIKA (acute kidney injury) (Acute) Cellulitis of abdominal wall (Acute) Cellulitis of pubic region (Acute) 1. Acute kidney injury likely due to vancomycin * Creatine is is 4.3 today. Has trended up from 3.87. * EGFR is 13 stayed on the same level. * Nephrology is on board. Will await recommendations. * 2. Abdominal wall cellulitis due to MSSA * stable. Wound vac in place. On cefazolin now., * general surgery on board * 3. Hypertension: controlled. On amlodipine 10mg daily. Lisinopril on hold due to ERIKA 4.History of recurrent kidney stones: stable. CT done for ERIKA showed a nonobstructing stone. On tamsulosin 5. DVT prophylaxis: heparin This note was generated with [employer] dictation software. It may contain incorrect words, spelling, and punctuation that were not noted in checking the note before signing. Code Visit Inpatient E&M: 87780 Subs Hosp L2
[2017-05-08] MEDS: Cefazolin 2 GM in 0.9% Normal Saline 100 ML IV (10:57)
[2017-05-08] MEDS: 0.9% NaCl Peripheral Flush Adult/Peds IV (16:09)
[2017-05-08] MEDS: HYDROmorphone 1 MG/ML Syringe IV (16:10)
[2017-05-08 20:00] VITALS: BP 118/74; PULSE 84; RESP 18; TEMP 37.1; O2SAT 100
[2017-05-08] MEDS: Amitriptyline 25 MG Tablet 50 MG PO (21:19)
[2017-05-09 02:39] VITALS: BP 118/67; PULSE 85; RESP 16; TEMP 37.3; O2SAT 100
[2017-05-09] MEDS: oxyCODONE 5 MG Tablet 20 MG PO ×4 (03:20→16:27)
[2017-05-09] MEDS: metroNIDAZOLE 500 MG Tablet PO ×3 (05:48→20:58)
[2017-05-09 06:29] LABS: BUN 25 mg/dL (7-18); BUN/Creat Ratio 6.2 RATIO (10-20); Calcium,Total 8.2 mg/dL (8.5-10.1); Chloride 105 mmol/L (98-107); Creatinine, Serum 4.02 mg/dL (0.55-1.02); EST Glomerular Filtration Rate 14 mL/min (>60); Est Glom Filt Rate - Afr Amer 17 mL/min (>60); Estimated Creatinine Clearance 18.98 ml/min; Glucose 86 mg/dL (74-106); Phosphorus 5.1 mg/dL (2.5-4.9); Potassium 4.6 mmol/L (3.5-5.1); Sodium Level 138 mmol/L (136-145)
[2017-05-09] MEDS: Iron Polysaccharide Complex 150 MG CAPSULE PO (08:02)
[2017-05-09] MEDS: Tamsulosin HCl 0.4 MG Capsule 0.8 MG PO (08:02)
[2017-05-09 08:20] VITALS: BP 124/84; PULSE 86; RESP 18; TEMP 37.2; O2SAT 98
[2017-05-09 09:00] VITALS: RESP 18
[2017-05-09] MEDS: Cefazolin 2 GM in 0.9% Normal Saline 100 ML IV (09:49)
[2017-05-09] MEDS: Labetalol 100 MG Tablet PO ×2 (09:50→20:57)
[2017-05-09] MEDS: amLODIPine 10 MG Tablet PO (09:50)
--- NOTE | 2017-05-09 10:20 | PCM.PN.HOSP ---
Patient Problems: Active and Suspected Problems (Last Updated 04/23/17 @ 14:42 by Griselda Chou) ERIKA (acute kidney injury) (Acute) Cellulitis of abdominal wall (Acute) Cellulitis of pubic region (Acute) Subjective: Patient seen and examined today. She complains that she thinks she is passing a kidney stone. She denies any pain however because her pain medication of oxycodone that she is currently receiving is helping to keep her pain controlled. She denies any pain with urination or any frequency. Pain at wound VAC site is well controlled. She denies any fever or chills, any shortness of breath, any chest pain, any diarrhea vomiting. Review of systems otherwise negative. Objective: Patient is a 32-year-old female with a past medical history of morbid obesity status post gastric bypass surgery, recurrent kidney stones and hypertension was admitted for abdominal wall cellulitis and abscess. She is status post I&D by surgery with wound VAC placement. She was started on vancomycin and subsequently developed a UTI. Vancomycin was DC'd and she is now on cefazolin. Nephrology is on board on account of HPI and she has remained stable. Creatinine trended up yesterday to 4.3 from 4.2 previously. However on review of labs today, creatinine has trended down slightly to 4.02. Vitals/I&O's: Vital Signs Temp Pulse Resp BP Pulse Ox 99.1 F 85 16 118/67 100 05/09/17 02:39 05/09/17 02:39 05/09/17 02:39 05/09/17 02:39 05/09/17 02:39 Oxygen Delivery Method Room Air Weight: 201 lb 0.985 oz Body Mass Index (BMI) 32.3 Intake and Output for Last 24 Hours 05/07/17 05/08/17 05/09/17 23:59 23:59 23:59 Intake Total 1850 / 1850 1296 / 1296 358 / 358 Output Total 1979 / 1979 2250 / 2250 725 / 725 Balance -130 / -130 -954 / -954 -367 / -367 General: Alert, Oriented x3, Cooperative, No apparent distress HEENT: Atraumatic, PERRLA, EOMI, Normocephalic Oral: Moist Mucosa Neck: Supple, No JVD, Negative Carotid Bruits Lungs: Clear to auscultation, Normal air movement, No rhonchi, No wheeze, No rales Cardiovascular: Regular rate, Regular Rhythm, Normal S1, Normal S2, No murmurs Abdomen: Bowel Sounds Present, Soft, Non Tender, Non-Distended, No Hepato-splenomegaly Extremities: No clubbing, No cyanosis, No edema, Capillary Refill Less than 3 Seconds Skin: No rashes, - - Wound VAC in place over lower abdomen. Musculoskeletal: No Tenderness to Palpation of Joints or Extremities Lymphatic: No Cervical, Supraclavicular, or Inguinal Adenopathy Neurological: Cranial nerves II-XII grossly intact Psych/Mental Status: Normal Affect, Appropriate, Alert and oriented to time, place, person, mood and affect Microbiology Past 72 Hours 05/03/17 Unknown Tissue - Other Gram Stain - Final 05/03/17 Unknown Tissue - Other Wound Culture - Final Staphylococcus aureus 05/03/17 Unknown Tissue - Other Anaerobic Culture - Final No anaerobic bacteria isolated. Laboratory Results 05/09/17 05:23: Sodium 138, Potassium 4.6, Chloride 105, Carbon Dioxide 23.0, BUN 25 H, Creatinine 4.02 H, Estim Creat Clear Calc 18.98, Est GFR (MDRD) Af Amer 17 L, Est GFR (MDRD) Non-Af 14 L, BUN/Creatinine Ratio 6.2 L, Glucose 86, Calcium 8.2 L, Phosphorus 5.1 H, Albumin 2.0 L Current Medications Amitriptyline HCl (Elavil) 50 mg PO QHS [facility] Last Admin: 05/08/17 21:19 Dose: 50 mg Amlodipine Besylate (Norvasc) 10 mg PO DAILY [facility] Last Admin: 05/09/17 09:50 Dose: 10 mg Diazepam (Valium) 5 mg PO 4X/DAY PRN PRN PRN Reason: SPASMS Last Admin: 05/06/17 22:19 Dose: 2.5 mg Ergocalciferol (Vitamin D) 50,000 unit PO TUTH [facility] Last Admin: 05/06/17 09:34 Dose: 50,000 unit Fentanyl (Duragesic) 25 mcg TRANSDERM. Q3D [facility] Last Admin: 05/07/17 20:51 Dose: 25 mcg Hydromorphone HCl (Dilaudid) 1 mg IV Q3H PRN PRN PRN Reason: SEVERE PAIN (6-10/10) Last Admin: 05/08/17 16:10 Dose: 1 mg Cefazolin Sodium 2 gm/ Sodium (Chloride) 120 mls @ 240 mls/hr IV Q24 [facility] Last Admin: 05/09/17 09:49 Dose: 240 mls/hr Labetalol HCl (Trandate) 100 mg PO BID [facility] Last Admin: 05/09/17 09:50 Dose: 100 mg Metronidazole (Flagyl) 500 mg PO TID [facility] Last Admin: 05/09/17 05:48 Dose: 500 mg Nutritional Formula ([place] - [place] Flavor) [facility] Last Admin: 05/09/17 07:58 Dose: Not Given Ondansetron HCl (Zofran) 4 mg IV Q6H PRN PRN PRN Reason: NAUSEA Last Admin: 05/07/17 21:09 Dose: 4 mg Oxycodone HCl (Oxyir) 20 mg PO Q4H PRN PRN PRN Reason: SEVERE PAIN () Last Admin: 05/09/17 08:01 Dose: 20 mg Polysaccharide Iron Complex (Ferrex 150) [facility] Last Admin: 05/09/17 08:02 Dose: 150 mg Promethazine HCl (Phenergan) 25 mg PO Q4H PRN PRN PRN Reason: NAUSEA/VOMITING Simethicone (Mylicon) 80 mg PO BID PRN PRN PRN Reason: Gas Last Admin: 05/07/17 13:59 Dose: 80 mg Sodium Chloride () 5 - 30 ml IV UD PRN PRN Reason: SALINE FLUSH Last Admin: 05/08/17 16:09 Dose: 10 ml Tamsulosin HCl (Flomax) 0.8 mg PO DAILY@0830 [facility] Last Admin: 05/09/17 08:02 Dose: 0.8 mg Assessment/Plan Active and Suspected Problems (Last Updated 04/23/17 @ 14:42 by Griselda Chou) ERIKA (acute kidney injury) (Acute) Cellulitis of abdominal wall (Acute) Cellulitis of pubic region (Acute) 1. Acute kidney injury likely due to vancomycin Improving. Creatinine was up to 4.3 yesterday but is down to 4.02 today. BUn has trended up slightly from 20 yesterday to 25 today. Is stable and is making urine. Nephrology on board. Awaiting further recommendations. 2. Abdominal wall cellulitis due to MSSA stable. Wound vac in place. On cefazolin, general surgery on board 3. Hypertension: controlled. On amlodipine 10mg daily. Lisinopril on hold due to ERIKA 4.History of recurrent kidney stones: thinks she is passing a stone. Pain is well controlled. On tamsulosin. Will monitor for passage of stone. says her previous stones have been due to calcium oxalate. Is also s/p laparoscopic [id number] surgery. will monitor 5. DVT prophylaxis: heparin This note was generated with [employer] software. It may contain incorrect words, spelling, and punctuation that were not noted in checking the note before signing. Code Visit Inpatient E&M: 86282 Subs Hosp L2
--- NOTE | 2017-05-09 10:25 | PN_ITS ---
Patient Problems: Active and Suspected Problems (Last Updated 04/23/17 @ 14:42 by Griselda Chou) ERIKA (acute kidney injury) (Acute) Cellulitis of abdominal wall (Acute) Cellulitis of pubic region (Acute) Subjective: Patient seen and examined today. She complains that she thinks she is passing a kidney stone. She denies any pain however because her pain medication of oxycodone that she is currently receiving is helping to keep her pain controlled. She denies any pain with urination or any frequency. Pain at wound VAC site is well controlled. She denies any fever or chills, any shortness of breath, any chest pain, any diarrhea vomiting. Review of systems otherwise negative. Objective: Patient is a 32-year-old female with a past medical history of morbid obesity status post gastric bypass surgery, recurrent kidney stones and hypertension was admitted for abdominal wall cellulitis and abscess. She is status post I&D by surgery with wound VAC placement. She was started on vancomycin and subsequently developed a UTI. Vancomycin was DC'd and she is now on cefazolin. Nephrology is on board on account of HPI and she has remained stable. Creatinine trended up yesterday to 4.3 from 4.2 previously. However on review of labs today, creatinine has trended down slightly to 4.02. Vitals/I&O's: Vital Signs Temp Pulse Resp BP Pulse Ox 99.1 F 85 16 118/67 100 05/09/17 02:39 05/09/17 02:39 05/09/17 02:39 05/09/17 02:39 05/09/17 02:39 Oxygen Delivery Method Room Air Weight: 201 lb 0.985 oz Body Mass Index (BMI) 32.3 Intake and Output for Last 24 Hours 05/07/17 05/08/17 05/09/17 23:59 23:59 23:59 Intake Total 1850 / 1850 1296 / 1296 358 / 358 Output Total 1979 / 1979 2250 / 2250 725 / 725 Balance -130 / -130 -954 / -954 -367 / -367 General: Alert, Oriented x3, Cooperative, No apparent distress HEENT: Atraumatic, PERRLA, EOMI, Normocephalic Oral: Moist Mucosa Neck: Supple, No JVD, Negative Carotid Bruits Lungs: Clear to auscultation, Normal air movement, No rhonchi, No wheeze, No rales Cardiovascular: Regular rate, Regular Rhythm, Normal S1, Normal S2, No murmurs Abdomen: Bowel Sounds Present, Soft, Non Tender, Non-Distended, No Hepato- splenomegaly Extremities: No clubbing, No cyanosis, No edema, Capillary Refill Less than 3 Seconds Skin: No rashes, - - Wound VAC in place over lower abdomen. Musculoskeletal: No Tenderness to Palpation of Joints or Extremities Lymphatic: No Cervical, Supraclavicular, or Inguinal Adenopathy Neurological: Cranial nerves II-XII grossly intact Psych/Mental Status: Normal Affect, Appropriate, Alert and oriented to time, place, person, mood and affect Microbiology Past 72 Hours 05/03/17 Unknown Tissue - Other Gram Stain - Final 05/03/17 Unknown Tissue - Other Wound Culture - Final Staphylococcus aureus 05/03/17 Unknown Tissue - Other Anaerobic Culture - Final No anaerobic bacteria isolated. Laboratory Results 05/09/17 05:23: Sodium 138, Potassium 4.6, Chloride 105, Carbon Dioxide 23.0, BUN 25 H, Creatinine 4.02 H, Estim Creat Clear Calc 18.98, Est GFR (MDRD) Af Amer 17 L, Est GFR (MDRD) Non-Af 14 L, BUN/Creatinine Ratio 6.2 L, Glucose 86, Calcium 8.2 L, Phosphorus 5.1 H, Albumin 2.0 L Current Medications Amitriptyline HCl (Elavil) 50 mg PO QHS [facility] Last Admin: 05/08/17 21:19 Dose: 50 mg Amlodipine Besylate (Norvasc) 10 mg PO DAILY [facility] Last Admin: 05/09/17 09:50 Dose: 10 mg Diazepam (Valium) 5 mg PO 4X/DAY PRN PRN PRN Reason: SPASMS Last Admin: 05/06/17 22:19 Dose: 2.5 mg Ergocalciferol (Vitamin D) 50,000 unit PO TUTH [facility] Last Admin: 05/06/17 09:34 Dose: 50,000 unit Fentanyl (Duragesic) 25 mcg TRANSDERM. Q3D [facility] Last Admin: 05/07/17 20:51 Dose: 25 mcg Hydromorphone HCl (Dilaudid) 1 mg IV Q3H PRN PRN PRN Reason: SEVERE PAIN (6-10/10) Last Admin: 05/08/17 16:10 Dose: 1 mg Cefazolin Sodium 2 gm/ Sodium (Chloride) 120 mls @ 240 mls/hr IV Q24 [facility] Last Admin: 05/09/17 09:49 Dose: 240 mls/hr Labetalol HCl (Trandate) 100 mg PO BID [facility] Last Admin: 05/09/17 09:50 Dose: 100 mg Metronidazole (Flagyl) 500 mg PO TID [facility] Last Admin: 05/09/17 05:48 Dose: 500 mg Nutritional Formula ([facility] - [place] Fl[facility]) [facility] Last Admin: 05/09/17 07:58 Dose: Not Given Ondansetron HCl (Zofran) 4 mg IV Q6H PRN PRN PRN Reason: NAUSEA Last Admin: 05/07/17 21:09 Dose: 4 mg Oxycodone HCl (Oxyir) 20 mg PO Q4H PRN PRN PRN Reason: SEVERE PAIN () Last Admin: 05/09/17 08:01 Dose: 20 mg Polysaccharide Iron Complex (Ferrex 150) [facility] Last Admin: 05/09/17 08:02 Dose: 150 mg Promethazine HCl (Phenergan) 25 mg PO Q4H PRN PRN PRN Reason: NAUSEA/VOMITING Simethicone (Mylicon) 80 mg PO BID PRN PRN PRN Reason: Gas Last Admin: 05/07/17 13:59 Dose: 80 mg Sodium Chloride () 5 - 30 ml IV UD PRN PRN Reason: SALINE FLUSH Last Admin: 05/08/17 16:09 Dose: 10 ml Tamsulosin HCl (Flomax) 0.8 mg PO DAILY@0830 [facility] Last Admin: 05/09/17 08:02 Dose: 0.8 mg Assessment/Plan Active and Suspected Problems (Last Updated 04/23/17 @ 14:42 by Griselda Chou) ERIKA (acute kidney injury) (Acute) Cellulitis of abdominal wall (Acute) Cellulitis of pubic region (Acute) 1. Acute kidney injury likely due to vancomycin * Improving. Creatinine was up to 4.3 yesterday but is down to 4.02 today. * BUn has trended up slightly from 20 yesterday to 25 today. * Is stable and is making urine. * Nephrology on board. Awaiting further recommendations. * 2. Abdominal wall cellulitis due to MSSA * stable. Wound vac in place. On cefazolin, * general surgery on board * 3. Hypertension: controlled. On amlodipine 10mg daily. Lisinopril on hold due to ERIKA 4.History of recurrent kidney stones: * thinks she is passing a stone. Pain is well controlled. On tamsulosin. Will monitor for passage of stone. * says her previous stones have been due to calcium oxalate. Is also s/p laparoscopic [id number] surgery. * will monitor * 5. DVT prophylaxis: heparin This note was generated with [employer] dictation software. It may contain incorrect words, spelling, and punctuation that were not noted in checking the note before signing. Code Visit Inpatient E&M: 67856 Subs Hosp L2
--- NOTE | 2017-05-09 10:47 | PCM.PN.REN ---
Patient Problems: Active and Suspected Problems (Last Updated 04/23/17 @ 14:42 by Griselda Chou) ERIKA (acute kidney injury) (Acute) Cellulitis of abdominal wall (Acute) Cellulitis of pubic region (Acute) Objective: Doing well Creatinine stabilize wound VAC in place ??think that she passed stone no dysuria or suprapubic discomfort - Physical Exam General: Alert, Oriented x3, Cooperative HEENT: Atraumatic Neck: Supple, No JVD, Negative Carotid Bruits Lungs: Clear to auscultation, Normal air movement Cardiovascular: Regular rate Abdomen: Bowel Sounds Present, Soft, Non Tender Extremities: No edema, Capillary Refill Less than 3 Seconds Skin: No rashes, No breakdown Musculoskeletal: No Tenderness to Palpation of Joints or Extremities Vital Signs Temp Pulse Resp BP Pulse Ox 99.1 F 85 16 118/67 100 05/09/17 02:39 05/09/17 02:39 05/09/17 02:39 05/09/17 02:39 05/09/17 02:39 Oxygen Delivery Method Room Air Weight: 91.2 kg Body Mass Index (BMI) 32.3 Intake and Output for Last 24 Hours 05/07/17 05/08/17 05/09/17 23:59 23:59 23:59 Intake Total 1850 / 1850 1296 / 1296 358 / 358 Output Total 1979 / 1979 2250 / 2250 725 / 725 Balance -130 / -130 -954 / -954 -367 / -367 Microbiology Past 72 Hours 05/03/17 Unknown Gram Stain - Final Tissue - Other Wound Culture - Final Staphylococcus aureus Anaerobic Culture - Final No anaerobic bacteria isolated. Laboratory Tests Past 24 Hrs 05/09/17 05:23 Sodium 138 Potassium 4.6 Chloride 105 Carbon Dioxide 23.0 BUN 25 H Creatinine 4.02 H Estim Creat Clear Calc 18.98 Est GFR (MDRD) Af Amer 17 L Est GFR (MDRD) Non-Af 14 L BUN/Creatinine Ratio 6.2 L Glucose 86 Calcium 8.2 L Phosphorus 5.1 H Albumin 2.0 L Assessment/Plan Active and Suspected Problems (Last Updated 04/23/17 @ 14:42 by Griselda Chou) ERIKA (acute kidney injury) (Acute) Cellulitis of abdominal wall (Acute) Cellulitis of pubic region (Acute) 1-acute kidney injury. Patient has normal creatinine at baseline.UA +1 protein Non oliguric. ERIKA is most probably from vancomycin/sepsis-induced ATN Cr is now trending down 3.8> 4.2 >4.0 mg/dL No need for dialysis. Hopefully, Cr will reach its plateau soon and then start to improve Continue holding diuretics.ACEI for now No need for renal replacement therapy. I will continue to monitor kidney function parameters along with urine output and electrolytes Keep mean arterial pressure more than 65. Avoid IV contrast if possible. Avoid NSAIDs. 2-hypertension. Blood pressure is well-controlled. continue norvasc and labetalol. Avoid ACEI/ARB We will continue to monitor. 3-cellulitis/this of the abdominal wall. Status post I&D with wound VAC placement. ID is following for antibiotics.
--- NOTE | 2017-05-09 13:04 | PCM.PN.SRG ---
Patient Problems: Active and Suspected Problems (Last Updated 04/23/17 @ 14:42 by Griselda Chou) Open wound anterior abdominal wall (Acute) Subjective: Postop #6 Patient is resting comfortably. Waiting for kidney function to improve so she can go home. - Physical Exam General: Alert, Oriented x3 HEENT: PERRLA, EOMI Neck: Supple Abdomen: Soft, Non-Distended Skin: Ulcer/ Wound - VAC in place. Canister is almost full. The pubic continues to show improvement with less swelling. Cellulitis almost resolved. Almost like a lymphedema picture with lymphangitis that waxes and wanes. Lymphatic: - - no inguinal adenopathy. Neurological: Cranial nerves II-XII grossly intact Psych/Mental Status: Normal Affect, Appropriate Vital Signs Temp Pulse Resp BP Pulse Ox 98.9 F 86 18 124/84 H 98 05/09/17 08:20 05/09/17 08:20 05/09/17 09:00 05/09/17 08:20 05/09/17 08:20 Oxygen Delivery Method Room Air Weight: 201 lb 0.985 oz Body Mass Index (BMI) 32.3 Intake and Output for Last 24 Hours 05/07/17 05/08/17 05/09/17 23:59 23:59 23:59 Intake Total 1850 / 1850 1296 / 1296 358 / 358 Output Total 1979 / 1979 2250 / 2250 725 / 725 Balance -130 / -130 -954 / -954 -367 / -367 Microbiology Past 72 Hours 05/03/17 Unknown Gram Stain - Final Tissue - Other Wound Culture - Final Staphylococcus aureus Anaerobic Culture - Final No anaerobic bacteria isolated. Laboratory Tests Past 24 Hrs 05/09/17 05:23 Sodium 138 Potassium 4.6 Chloride 105 Carbon Dioxide 23.0 BUN 25 H Creatinine 4.02 H Estim Creat Clear Calc 18.98 Est GFR (MDRD) Af Amer 17 L Est GFR (MDRD) Non-Af 14 L BUN/Creatinine Ratio 6.2 L Glucose 86 Calcium 8.2 L Phosphorus 5.1 H Albumin 2.0 L Assessment/Plan Active and Suspected Problems (Last Updated 04/23/17 @ 14:42 by Griselda Chou) Open wound anterior abdominal wall (Acute) 1. 8 cm painful soft tissue mass pubic area. 2. 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 3. Abdominal wall skin crease intertrigo. 4. s/p excision 8 cm painful soft tissue mass pubic area with 20 cm complex closure. 5. Cellulitis lower anterior abdominal wall and pubic area, improving. 6. Anemia of chronic disease, acute on chronic, stable. 7. History of MRSA. 8. Acute kidney dysfunction with elevated creatinine. VAC in place. Canister is almost full. Continue abdominal wall binder only if it provides some compression to the pubic area. Otherwise the athletic supporter is the way to go. She states it rubs against the VAC and is painful. Will get a larger one after discharge. Mild cellulitis in the pubic area continues to improve and is almost resolved. Hgb stable at 8.6. She has anemia of chronic disease with acute on chronic. Probable IV fluid dilution. No evidence of bleeding in the pubic wound. Continue Fe supplementation. She will followup with her PCP regarding her chronic anemia for evaluation since it is quite common to have anemia after gastric bypass surgery. Prealbumin quite low at 9.0. Encourage nutritional supplementation with protein to help the healing process. Will recheck tomorrow. Continue Ancef and Flagyl. Operative culture showed Staphylococcus aureus. Her Creatinine has finally started to decrease to 4.02. Would like to see it continue to improve before discharge. Renal consult obtained. Ultrasound showed a nonobstructive right kidney stone.
[2017-05-09 16:26] VITALS: BP 122/67; PULSE 80; RESP 18; TEMP 37.1; O2SAT 98
[2017-05-09] MEDS: HYDROmorphone 1 MG/ML Syringe IV (19:02)
[2017-05-09] MEDS: 0.9% NaCl Peripheral Flush Adult/Peds IV (19:02)
[2017-05-09] MEDS: Amitriptyline 25 MG Tablet 50 MG PO (20:58)
[2017-05-09] MEDS: diazePAM 5 MG Tablet PO (20:59)
[2017-05-09 21:00] VITALS: BP 128/74; PULSE 87; RESP 16; TEMP 37.2; O2SAT 100
[2017-05-10] MEDS: oxyCODONE 5 MG Tablet 20 MG PO ×3 (02:48→13:03)
[2017-05-10 03:00] VITALS: BP 110/70; PULSE 73; RESP 16; TEMP 36.6; O2SAT 100
[2017-05-10] MEDS: metroNIDAZOLE 500 MG Tablet PO (05:57)
[2017-05-10 06:57] LABS: Albumin, Serum 2.2 g/dL (3.2-5.0); BUN 28 mg/dL (7-18); BUN/Creat Ratio 7.3 RATIO (10-20); Chloride 107 mmol/L (98-107); Creatinine, Serum 3.85 mg/dL (0.55-1.02); EST Glomerular Filtration Rate 15 mL/min (>60); Est Glom Filt Rate - Afr Amer 18 mL/min (>60); Estimated Creatinine Clearance 19.82 ml/min; Glucose 93 mg/dL (74-106); Potassium 4.6 mmol/L (3.5-5.1); Prealbumin 11.6 mg/dL (20.0-40.0); Sodium Level 140 mmol/L (136-145)
[2017-05-10 09:00] VITALS: BP 125/65; PULSE 77; RESP 18; TEMP 36.7; O2SAT 100
[2017-05-10] MEDS: Iron Polysaccharide Complex 150 MG CAPSULE PO (10:01)
[2017-05-10] MEDS: Tamsulosin HCl 0.4 MG Capsule 0.8 MG PO (10:01)
[2017-05-10] MEDS: amLODIPine 10 MG Tablet PO (10:01)
[2017-05-10] MEDS: Labetalol 100 MG Tablet PO (10:02)
[2017-05-10] MEDS: Cefazolin 2 GM in 0.9% Normal Saline 100 ML IV (10:02)
--- NOTE | 2017-05-10 11:02 | PCM.PN.ID ---
Patient Problems: Active and Suspected Problems (Last Updated 04/23/17 @ 14:42 by Griselda Chou) ERIKA (acute kidney injury) (Acute) Cellulitis of abdominal wall (Acute) Cellulitis of pubic region (Acute) Subjective: Feeling much better, no fever. No nausea. - Physical Exam General: Alert, Cooperative, No apparent distress Lungs: Clear to auscultation, Normal air movement Cardiovascular: Regular rate, Regular Rhythm Abdomen: Soft, Non Tender, Non-Distended Skin: No rashes, - - wound vac in place Vital Signs Temp Pulse Resp BP Pulse Ox 98.1 F 77 18 125/65 H 100 05/10/17 09:00 05/10/17 09:00 05/10/17 09:00 05/10/17 09:00 05/10/17 09:00 Oxygen Delivery Method Room Air Weight: 91.2 kg Body Mass Index (BMI) 32.3 Intake and Output for Last 24 Hours 05/08/17 05/09/17 05/10/17 23:59 23:59 23:59 Intake Total 1296 / 1296 4313 / 4313 257 / 257 Output Total 2250 / 2250 1425 / 1425 600 / 600 Balance -954 / -954 2888 / 2888 -343 / -343 Microbiology Past 72 Hours 05/03/17 Unknown Gram Stain - Final Tissue - Other Wound Culture - Final Staphylococcus aureus Anaerobic Culture - Final No anaerobic bacteria isolated. Laboratory Tests Past 24 Hrs 05/10/17 06:15 Sodium 140 Potassium 4.6 Chloride 107 Carbon Dioxide 25.0 BUN 28 H Creatinine 3.85 H Estim Creat Clear Calc 19.82 Est GFR (MDRD) Af Amer 18 L Est GFR (MDRD) Non-Af 15 L BUN/Creatinine Ratio 7.3 L Glucose 93 Calcium 8.0 L Phosphorus 5.0 H Albumin 2.2 L Prealbumin 11.6 L Route of nutrition/ use of supplements: [] Nutritional Intake: [] IV Site: [] Adhikari Catheter: [] - Assessment/Plan Antibiotics: [] Assessment/Plan: [] Active and Suspected Problems (Last Updated 04/23/17 @ 14:42 by Griselda Chou) ERIKA (acute kidney injury) (Acute) Cellulitis of abdominal wall (Acute) Cellulitis of pubic region (Acute) MSSA abd wall abscess/hematoma after surgery 04/20/[address] Mendieta - taken back to OR 05/03, cx and pcr (+) for MSSA. Now with ERIKA. Has h/o recurrent kidney stones. Urine eos pending and renal u/s showed non-obstructing stone. Cr now starting to improve. On cefazolin q24h. Will stop flagyl. Plan on d/c home on po keflex 500mg bid for 6 more days. will follow. D/w behavioral health case manager.
--- NOTE | 2017-05-10 12:02 | PN_ITS ---
Patient Problems: Active and Suspected Problems (Last Updated 04/23/17 @ 14:42 by Griselda Chou) ERIKA (acute kidney injury) (Acute) Cellulitis of abdominal wall (Acute) Cellulitis of pubic region (Acute) Subjective: Feels good. No complaints. Vitals/I&O's: Vital Signs Temp Pulse Resp BP Pulse Ox 36.7 C 77 18 125/65 H 100 05/10/17 09:00 05/10/17 09:00 05/10/17 09:00 05/10/17 09:00 05/10/17 09:00 Oxygen Delivery Method Room Air Weight: 91.2 kg Body Mass Index (BMI) 32.3 Intake and Output for Last 24 Hours 05/08/17 05/09/17 05/10/17 23:59 23:59 23:59 Intake Total 1296 / 1296 4313 / 4313 257 / 257 Output Total 2250 / 2250 1425 / 1425 600 / 600 Balance -954 / -954 2888 / 2888 -343 / -343 General: Alert, Cooperative, No apparent distress HEENT: Atraumatic, Normocephalic Microbiology Past 72 Hours 05/03/17 Unknown Tissue - Other Gram Stain - Final 05/03/17 Unknown Tissue - Other Wound Culture - Final Staphylococcus aureus 05/03/17 Unknown Tissue - Other Anaerobic Culture - Final No anaerobic bacteria isolated. Laboratory Results 05/10/17 06:15: Sodium 140, Potassium 4.6, Chloride 107, Carbon Dioxide 25.0, BUN 28 H, Creatinine 3.85 H, Estim Creat Clear Calc 19.82, Est GFR (MDRD) Af Amer 18 L, Est GFR (MDRD) Non-Af 15 L, BUN/Creatinine Ratio 7.3 L, Glucose 93, Calcium 8.0 L, Phosphorus 5.0 H, Albumin 2.2 L, Prealbumin 11.6 L Current Medications Amitriptyline HCl (Elavil) 50 mg PO QHS [facility] Last Admin: 05/09/17 20:58 Dose: 50 mg Amlodipine Besylate (Norvasc) 10 mg PO DAILY [facility] Last Admin: 05/10/17 10:01 Dose: 10 mg Diazepam (Valium) 5 mg PO 4X/DAY PRN PRN PRN Reason: SPASMS Last Admin: 05/09/17 20:59 Dose: 5 mg Ergocalciferol (Vitamin D) 50,000 unit PO TUTH [facility] Last Admin: 05/06/17 09:34 Dose: 50,000 unit Fentanyl (Duragesic) 25 mcg TRANSDERM. Q3D [facility] Last Admin: 05/07/17 20:51 Dose: 25 mcg Hydromorphone HCl (Dilaudid) 1 mg IV Q3H PRN PRN PRN Reason: SEVERE PAIN (6-10/10) Last Admin: 05/09/17 19:02 Dose: 1 mg Cefazolin Sodium 2 gm/ Sodium (Chloride) 120 mls @ 240 mls/hr IV Q24 [facility] Last Admin: 05/10/17 10:02 Dose: 240 mls/hr Labetalol HCl (Trandate) 100 mg PO BID [facility] Last Admin: 05/10/17 10:02 Dose: 100 mg Nutritional Formula ([facility] - [place] Fl[facility] Last Admin: 05/10/17 10:01 Dose: 1 packet Ondansetron HCl (Zofran) 4 mg IV Q6H PRN PRN PRN Reason: NAUSEA Last Admin: 05/07/17 21:09 Dose: 4 mg Oxycodone HCl (Oxyir) 20 mg PO Q4H PRN PRN PRN Reason: SEVERE PAIN (6-10/10) Last Admin: 05/10/17 06:58 Dose: 20 mg Polysaccharide Iron Complex ([facility]rex 150) [facility] Last Admin: 05/10/17 10:01 Dose: 150 mg Promethazine HCl (Phenergan) 25 mg PO Q4H PRN PRN PRN Reason: NAUSEA/VOMITING Simethicone (Mylicon) 80 mg PO BID PRN PRN PRN Reason: Gas Last Admin: 05/07/17 13:59 Dose: 80 mg Sodium Chloride () 5 - 30 ml IV UD PRN PRN Reason: SALINE FLUSH Last Admin: 05/09/17 19:02 Dose: 10 ml Sodium Chloride () 5 - 30 ml IV UD PRN PRN Reason: SALINE FLUSH Tamsulosin HCl (Flomax) 0.8 mg PO DAILY@0830 [facility] Last Admin: 05/10/17 10:01 Dose: 0.8 mg Assessment/Plan Active and Suspected Problems (Last Updated 04/23/17 @ 14:42 by Griselda Chou) ERIKA (acute kidney injury) (Acute) Cellulitis of abdominal wall (Acute) Cellulitis of pubic region (Acute) 1. ERIKA: * I suspect related to the vancomycin given the timing * Vanc has been d/c'd * Additionally, I have d/c'd the patient's lisinopril and lasix * Renal ultrasound showed a nonobstructing stone which is not at all contributing to the patient's renal failure. * IVF * Fractional excretion of sodium was 5% from lab work from 05/05. Comp getting this is the fact that the patient was on Lasix prior to this measurement. * Nephrology following * Improved 2 days in a row. * Will send patient with some prescription to get some lab work done the next couple weeks. Patient follow-up with nephrology as outpatient. 2. Abd wall cellulitis * + MSSA * Seen by infectious disease and exchange specialist to cefazolin and metronidazole. 3. DVT proph: SCDs Patient medically stable for discharge. We will sign off. Please do not hesitate to reconsult if new needs arise. Code Visit Inpatient E&M: 92306 Subs Hosp L1
[2017-05-10] MEDS: HYDROmorphone 1 MG/ML Syringe IV (13:03)
--- NOTE | 2017-05-10 13:06 | PCM.PN.SRG ---
Subjective: Postop #7 Patient is resting comfortably. Creatinine continues to improve. She is anxious to go home. - Physical Exam General: Alert, Oriented x3 HEENT: PERRLA, EOMI Neck: Supple Abdomen: Soft, Non-Distended Skin: Ulcer/ Wound - VAC changed today. Tolerated reasonably well. The pubic area continues to show improvement with less swelling as the cellulitis has resolved for now. Almost like a lymphedema picture with lymphangitis that waxes and wanes. Lymphatic: - - no inguinal adenopathy. Neurological: Cranial nerves II-XII grossly intact Psych/Mental Status: Normal Affect, Appropriate Vital Signs Temp Pulse Resp BP Pulse Ox 98.1 F 77 18 125/65 H 100 05/10/17 09:00 05/10/17 09:00 05/10/17 09:00 05/10/17 09:00 05/10/17 09:00 Oxygen Delivery Method Room Air Weight: 201 lb 0.985 oz Body Mass Index (BMI) 32.3 Intake and Output for Last 24 Hours 05/08/17 05/09/17 05/10/17 23:59 23:59 23:59 Intake Total 1296 / 1296 4313 / 4313 257 / 257 Output Total 2250 / 2250 1425 / 1425 600 / 600 Balance -954 / -954 2888 / 2888 -343 / -343 Microbiology Past 72 Hours 05/03/17 Unknown Gram Stain - Final Tissue - Other Wound Culture - Final Staphylococcus aureus Anaerobic Culture - Final No anaerobic bacteria isolated. Laboratory Tests Past 24 Hrs 05/10/17 06:15 Sodium 140 Potassium 4.6 Chloride 107 Carbon Dioxide 25.0 BUN 28 H Creatinine 3.85 H Estim Creat Clear Calc 19.82 Est GFR (MDRD) Af Amer 18 L Est GFR (MDRD) Non-Af 15 L BUN/Creatinine Ratio 7.3 L Glucose 93 Calcium 8.0 L Phosphorus 5.0 H Albumin 2.2 L Prealbumin 11.6 L Assessment/Plan 1. 8 cm painful soft tissue mass pubic area. 2. 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 3. Abdominal wall skin crease intertrigo. 4. s/p excision 8 cm painful soft tissue mass pubic area with 20 cm complex closure. 5. Cellulitis lower anterior abdominal wall and pubic area, improving. 6. Anemia of chronic disease, acute on chronic, stable. 7. History of MRSA. 8. Acute kidney dysfunction with elevated creatinine. VAC changed today. Tolerated reasonably well. Home Health to assist with VAC changes at home three times per week at 150 mmHg continuous suction. Continue abdominal wall binder only if it provides some compression to the pubic area. Otherwise the athletic supporter is the way to go. She states it rubs against the VAC and is painful. Will get a larger one after discharge. Mild cellulitis in the pubic area continues to improve and has resolved. Hgb stable at 8.6. She has anemia of chronic disease with acute on chronic. Probable IV fluid dilution. No evidence of bleeding in the pubic wound. Continue Fe supplementation. She will followup with her PCP regarding her chronic anemia for evaluation since it is quite common to have anemia after gastric bypass surgery. Prealbumin has improved a little to 11.6. Encourage nutritional supplementation with protein to help the healing process. Operative culture showed Staphylococcus aureus. Will send home on Keflex. Her Creatinine has continued to decrease to 3.85. She is stable for discharge. Will have labs drawn weekly for the next couple of weeks. Discharge home today. Followup [facility]. Followup with PCP in 2-4 weeks. Followup with Nephrology in 2 weeks. Wrote script for Keflex twice a day for a week. Wrote scripts for Percocet for pain, 10mg, one tab (30 tabs) and for Valium for spasm (30 tabs).
--- NOTE | 2017-05-10 13:17 | PCM.DC ---
- Discharge Diagnoses Current Active Problems: Current Active and Chronic Problems (Last Updated 04/23/17 @ 14:42 by Griselda Chou) ERIKA (acute kidney injury) (Acute) Cellulitis of abdominal wall (Acute) Intertrigo (Chronic) abdominal wall skin crease intertrigo Localized adiposity (Chronic) 8 cm painful soft tissue mass pubic area Excessive body weight loss (Chronic) after gastric bypass procedure Cellulitis of pubic region (Acute) You will use the following diet at home:: Renal (restricted protein/sodium) Discharge Activity: May not drive while taking narcotic pain medications., May Shower - on the days the vac is changed. May shower in (days): 2 - may shower on the days the vac is changed. May resume sexual activity in: 10-14 days Weight Bearing Status: Weight bearing as tolerated Call your doctor if your incision/area has: Continuous Slow Oozing, Sudden Increased Bleeding, Increased Pain/ Swelling, Increased Redness, Foul Smelling Discharge, Swelling at the incision site Call your doctor if you observe: Fever of 101 or Higher, Coldness, Increased Pain, Shortness of breath, Chest pain, Calf discomfort, Uncontrolled pain Suture Line Care: - - vac dressing changes 3 times per week at 150mmHg continuous suction. Change Dressing in (Days):: 2 - vac changes 3 times per week. Cleanse incision/area with: Soap & Water - may cleanse the wound with soap and water at the time of the vac dressing changes., - - may shower on the days the vac is changed. Additional Dressing/Incision Instructions:: Home Health to assist with vac changes 3 times per week at 150 mmHg continuous suction. Allergies/Adverse Reactions: Allergies methocarbamol Allergy (Verified 04/30/17 09:40) Chest tightness gabapentin Adverse Reaction (Verified 04/30/17 09:40) MADE ME WALK SIDEWAYS ketorolac tromethamine [From Toradol] Adverse Reaction (Verified 04/30/17 09:40) Upset Stomach NSAIDS (Non-Steroidal Anti-Inflamma Adverse Reaction (Verified 04/30/17 09:40) gastric bipass not supposed to take tramadol Adverse Reaction (Verified 04/30/17 09:40) Upset Stomach Medications to take at Discharge Amitriptyline HCl [Elavil] 50 mg PO QHS PRN 04/30/17 Amlodipine Besylate [Norvasc] 10 mg PO DAILY 04/30/17 Ergocalciferol [Vitamin D] 50,000 unit PO TUTH 04/30/17 Etonogestrel [Nexplanon] 68 mg SQ UD 04/30/17 Labetalol [Trandate (Beta Emily)] 100 mg PO BID 04/30/17 Potassium Chloride [K-Dur] 10 meq PO BID 04/30/17 Tamsulosin HCl [Flomax] 0.8 mg PO DAILY 04/30/17 Cephalexin [Keflex] 500 mg PO BID #14 cap 05/10/17 Diazepam [Valium] 5 mg PO 4X/DAY PRN PRN #30 tab 05/10/17 Iron Polysaccharide Complex [Ferrex 150] 150 mg PO DAILYCM capsule 05/10/17 Oxycodone HCl/Acetaminophen [Percocet 10-325 mg Tablet] 1 tab PO 4X/DAY PRN PRN 7 Days #30 tab 05/10/17 The following prescriptions were given: Diazepam [Valium] 5 mg PO 4X/DAY PRN PRN #30 tab PRN Reason: Spasms Oxycodone HCl/Acetaminophen [Percocet 10-325 mg Tablet] 1 tab PO 4X/DAY PRN PRN 7 Days #30 tab PRN Reason: Pain Cephalexin [Keflex] 500 mg PO BID #14 cap Primary Care Physician: Bethel Jauregui III, MD [Primary Care Provider] - Please follow up with your Primary Care Physician in: 2-4 weeks. Please Follow Up With: Gigi Mendieta MD - call [phone] if questions. When: 05/24/17 at [facility] at 800 am. Please Follow Up With: Danis Hayes MD When: 2 weeks. call [phone] for appt. Proposed Discharge Date: 05/10/17
--- NOTE | 2017-05-10 13:24 | DCINST_ITS ---
- Discharge Diagnoses Current Active Problems: Current Active and Chronic Problems (Last Updated 04/23/17 @ 14:42 by Griselda Chou) ERIKA (acute kidney injury) (Acute) Cellulitis of abdominal wall (Acute) Intertrigo (Chronic) abdominal wall skin crease intertrigo Localized adiposity (Chronic) 8 cm painful soft tissue mass pubic area Excessive body weight loss (Chronic) after gastric bypass procedure Cellulitis of pubic region (Acute) You will use the following diet at home:: Renal (restricted protein/sodium) Discharge Activity: May not drive while taking narcotic pain medications., May Shower - on the days the vac is changed. May shower in (days): 2 - may shower on the days the vac is changed. May resume sexual activity in: 10-14 days Weight Bearing Status: Weight bearing as tolerated Call your doctor if your incision/area has: Continuous Slow Oozing, Sudden Increased Bleeding, Increased Pain/ Swelling, Increased Redness, Foul Smelling Discharge, Swelling at the incision site Call your doctor if you observe: Fever of 101 or Higher, Coldness, Increased Pain, Shortness of breath, Chest pain, Calf discomfort, Uncontrolled pain Suture Line Care: - - vac dressing changes 3 times per week at 150mmHg continuous suction. Change Dressing in (Days):: 2 - vac changes 3 times per week. Cleanse incision/area with: Soap & Water - may cleanse the wound with soap and water at the time of the vac dressing changes., - - may shower on the days the vac is changed. Additional Dressing/Incision Instructions:: Home Health to assist with vac changes 3 times per week at 150 mmHg continuous suction. Allergies/Adverse Reactions: Allergies methocarbamol Allergy (Verified 04/30/17 09:40) Chest tightness gabapentin Adverse Reaction (Verified 04/30/17 09:40) MADE ME WALK SIDEWAYS ketorolac tromethamine [From Toradol] Adverse Reaction (Verified 04/30/17 09:40) Upset Stomach NSAIDS (Non-Steroidal Anti-Inflamma Adverse Reaction (Verified 04/30/17 09:40) gastric bipass not supposed to take tramadol Adverse Reaction (Verified 04/30/17 09:40) Upset Stomach Medications to take at Discharge Amitriptyline HCl [Elavil] 50 mg PO QHS PRN 04/30/17 Amlodipine Besylate [Norvasc] 10 mg PO DAILY 04/30/17 Ergocalciferol [Vitamin D] 50,000 unit PO TUTH 04/30/17 Etonogestrel [Nexplanon] 68 mg SQ UD 04/30/17 Labetalol [Trandate (Beta Emily)] 100 mg PO BID 04/30/17 Potassium Chloride [K-Dur] 10 meq PO BID 04/30/17 Tamsulosin HCl [Flomax] 0.8 mg PO DAILY 04/30/17 Cephalexin [Keflex] 500 mg PO BID #14 cap 05/10/17 Diazepam [Valium] 5 mg PO 4X/DAY PRN PRN #30 tab 05/10/17 Iron Polysaccharide Complex [Ferrex 150] 150 mg PO DAILYCM capsule 05/10/17 Oxycodone HCl/Acetaminophen [Percocet 10-325 mg Tablet] 1 tab PO 4X/DAY PRN PRN 7 Days #30 tab 05/10/17 The following prescriptions were given: Diazepam [Valium] 5 mg PO 4X/DAY PRN PRN #30 tab PRN Reason: Spasms Oxycodone HCl/Acetaminophen [Percocet 10-325 mg Tablet] 1 tab PO 4X/DAY PRN PRN 7 Days #30 tab PRN Reason: Pain Cephalexin [Keflex] 500 mg PO BID #14 cap Primary Care Physician: Bethel Jauregui III, MD [Primary Care Provider] - Please follow up with your Primary Care Physician in: 2-4 weeks. Please Follow Up With: Gigi Mendieta MD - call [phone] if questions. When: 05/24/17 at [facility] at 800 am. Please Follow Up With: Danis Hayes MD When: 2 weeks. call [phone] for appt. Proposed Discharge Date: 05/10/17
--- NOTE | 2017-05-10 13:25 | DS.PCM_ITS ---
Discharge Date and Diagnosis Date of Admission: 04/30/17 Date of Discharge: 05/10/17 - Primary Discharge Diagnosis Infected seroma/hematoma lower anterior abdominal wall and pubic area. ERIKA (acute kidney injury). Cellulitis of abdominal wall. Cellulitis of pubic region. Anemia of chronic disease, acute on chronic, stable. - Secondary Discharge Diagnosis HTN (hypertension) Nephrolithiasis Ovarian cyst Painful soft tissue mass pubic area. 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 Abdominal wall skin crease intertrigo. History of MRSA. Hospital Course and Treatment Imaging Results: Diagnostic Data Pelvis CT 04/30/17 10:09 IMPRESSION: Subcutaneous fluid collection as described. A drainage catheter is seen within. This most likely represents a postoperative seroma. Electronically Signed: Demetrius Brandon MD at 11:27 EST Tel [phone], Service support , Renal Ultrasound 05/05/17 11:25 IMPRESSION: Nonobstructive right renal stone. Electronically Signed: Robert Wolfe MD at 18:23 EST , Service support , Consultations 05/04/17 06:39 Consult: Onc/Wound/advertising operations coordinator Routine Comment: Reason for Consult:: wound VAC application Hospitalist Group - Dr. Reyes and Dr. Stuart. Infectious Diseases - Dr. Renee. Renal - Dr. Mireles and Dr. Hayes. Operations: - - 05/03/17 - Surgical preparation lower anterior abdominal wall and pubic area with incision and drainage and excisional debridement infected seroma/hematoma (250 cm2). Procedures: Blood transfusion, Wound vac placement Summary of Care Provided: The patient is a 32 year old F who presented with a painful soft tissue mass on her pubic area. This mass first developed after abdominal surgery done earlier in the Summer. Back in 2015 she had a gastric bypass procedure including clinic. It was a laparoscopic Og-en-Y procedure. At that time she weighed about 380 pounds and today she weighs about 200 pounds. In August 2016 she underwent an abdominal panniculectomy. After surgery she developed some bleeding was taken back to surgery the same day where she underwent incision and drainage of postop hematoma. She did okay postoperatively initially for about a month. At the end of September she noticed increased pain and redness and swelling in the right side of her abdominal wall near the incision. She went back to surgery on October 20, 2016 where she underwent incision and drainage of infected abdominal seroma. She was treated with antibiotics and wound care until healed. Throughout these procedures she developed increased scarring in the lower anterior abdominal wall area and this exacerbated her painful symptomatology in her pubic area where a large soft tissue masses located. She denies any recent infection of the soft tissue mass. Denies any trauma. Denies any drainage. Patient denies any fever. On 04/20/17 the patient underwent excision 8 cm painful soft tissue mass pubic area with 20 cm complex closure. Postop she developed increasing pain and redness on the right side of her pubic area. She then had increased temp at home and came to the ED. Her WBC was 14.9. She was admitted to the hospital and placed on IV antibiotics. CT showed a seroma which is expected and she still had a drain in place. There was no bleeding in the [place] drain. However she drifted down to 7.4. She was ahead in her I/O's by 6000 ml. Most of the decrease was probably IV dilution. She was given 2 units of PRBC and was taken back to the OR because of persistent pain and swelling. Also to make sure there is not a large hematoma present. On 05/03/17, the patient went to the OR and underwent surgical preparation lower anterior abdominal wall and pubic area with incision and drainage and excisional debridement infected seroma/hematoma (250 cm2). The wound was left open and a VAC was applied. Perioperatively she was treated with Vancomycin and Zosyn as she has a history of MRSA. On the first postop day , the Creatinine increased to 1.27 and the Vancomycin was stopped. The MRSA screen was negative and was positive for MSSA. She was continued on Zosyn. Hospitalist Group was consulted for medical management. They stopped the Lisinopril and the Lasix. Infectious Diseases was consulted to help with antibiotic management. The Zosyn was changed to Ancef and Flagyl. Postop her Hgb stabilized after the PRBC. She was started on Fe supplementation and will followup with her PCP after discharge to further evaluate her anemia since it is quite common to have anemia after gastric bypass surgery. At discharge her Hgb had stabilized at 8.6. When the Creatinine continued to rise, a Renal consult was obtained. Ultrasound showed a nonobstructing stone on the right. They felt dialysis was not needed at this time. The Creatinine continued to rise and reached a plateau on 05/08/17 of 4.30. It then started to decrease and after two days of decrease, the level was 3.85 on 05/10/17 and she was felt to be stable to go home. The Ancef was changed to Keflex at discharge for an additional week for the operative culture that showed Staphylococcus aureus. She was able to tolerate the VAC changes and was discharged home on 05/10/17. Home Health will assist with the VAC changes three times per week at 150 mmHg continuous suction. She will continue the abdominal wall binder over the pubic area to help with compression. She will also obtain an extra large athletic supporter to also help with support. Prealbumin has improved a little to 11.6. Encourage nutritional supplementation with protein to help the healing process. Upon discharge she will have labs drawn weekly for the next couple of weeks. Followup Dr. [facility]. Followup with PCP in 2-4 weeks. Followup with Nephrology in 2 weeks. Wrote script for Keflex twice a day for a week. Wrote scripts for Percocet for pain, 10mg, one tab (30 tabs) and for Valium for spasm (30 tabs). Condition upon discharge was stable. Discharge Diet: Renal Diet, - - encourage nutritional supplementation with protein to help the healing process. Discharge Activity: May not drive while taking narcotic pain medications., May Shower - on the days the vac is changed. May shower in (days): 2 - may shower on the days the vac is changed. May resume sexual activity in: 10-14 days Weight Bearing Status: Weight bearing as tolerated Call your doctor if your incision/area has: Continuous Slow Oozing, Sudden Increased Bleeding, Increased Pain/ Swelling, Increased Redness, Foul Smelling Discharge, Swelling at the incision site Call your doctor if you observe: Fever of 101 or Higher, Coldness, Increased Pain, Shortness of breath, Chest pain, Calf discomfort, Uncontrolled pain Suture Line Care: - - vac dressing changes 3 times per week at 150mmHg continuous suction. Change Dressing in (Days):: 2 - vac changes 3 times per week. Cleanse incision/area with: Soap & Water - may cleanse the wound with soap and water at the time of the vac dressing changes., - - may shower on the days the vac is changed. Additional Dressing/Incision Instructions:: Home Health to assist with vac changes 3 times per week at 150 mmHg continuous suction. Home Medications: Medications to take at Discharge Amitriptyline HCl [Elavil] 50 mg PO QHS PRN 04/30/17 Amlodipine Besylate [Norvasc] 10 mg PO DAILY 04/30/17 Ergocalciferol [Vitamin D] 50,000 unit PO TUTH 04/30/17 Etonogestrel [Nexplanon] 68 mg SQ UD 04/30/17 Labetalol [Trandate (Beta Emily)] 100 mg PO BID 04/30/17 Potassium Chloride [K-Dur] 10 meq PO BID 04/30/17 Tamsulosin HCl [Flomax] 0.8 mg PO DAILY 04/30/17 Cephalexin [Keflex] 500 mg PO BID #14 cap 05/10/17 Diazepam [Valium] 5 mg PO 4X/DAY PRN PRN #30 tab 05/10/17 Iron Polysaccharide Complex [Ferrex 150] 150 mg PO DAILYCM capsule 05/10/17 Oxycodone HCl/Acetaminophen [Percocet 10-325 mg Tablet] 1 tab PO 4X/DAY PRN PRN 7 Days #30 tab 05/10/17 Following Prescrptions Were Given to Patient: Diazepam [Valium] 5 mg PO 4X/DAY PRN PRN #30 tab PRN Reason: Spasms Oxycodone HCl/Acetaminophen [Percocet 10-325 mg Tablet] 1 tab PO 4X/DAY PRN PRN 7 Days #30 tab PRN Reason: Pain Cephalexin [Keflex] 500 mg PO BID #14 cap Primary Care Physician: Bethel Jauregui III, MD [Primary Care Provider] - Please follow up with your Primary Care Physician in: 2-4 weeks. Please Follow Up With: Gigi Mendieta MD - call [phone] if questions. When: 05/24/17 at wound center at 800 am. Please Follow Up With: Danis Hayes MD When: 2 weeks. call [phone] for appt. Disposition: Home Minutes spent on discharge:: 35 Patient Condition:: Stable Meaningful Use Info Meaningful Use Diagnoses (Choose all that apply): None applicable
[2017-05-11 16:06] LABS: Eosinophil Ct. Urine No Eosinophils Seen % (.)
== END 2017-05-10 14:40 | disposition home health service (06) | DRG 415 ==
LOC: ED 10:11 → MS3 12:35
PROVIDERS: Anesthesiology; Internal Medicine; Admitting Provider Surgery; Emergency Provider Emergency Medicine; Family Provider Family Medicine; PCP Family Medicine
PROC: 0JB80ZZ Excision of Abdomen Subcutaneous Tissue and Fascia, Open Approach (ICD-10-PCS; principal; 2017-05-03 07:20)
DX: T81.4XXA Infection following a procedure, initial encounter (principal); N17.9 Acute kidney failure, unspecified; L03.311 Cellulitis of abdominal wall; L76.32 Postprocedural hematoma of skin and subcutaneous tissue following other procedure; L76.34 Postprocedural seroma of skin and subcutaneous tissue following other procedure; B95.61 Methicillin susceptible Staphylococcus aureus infection as the cause of diseases classified elsewhere; L30.4 Erythema intertrigo; N20.0 Calculus of kidney; I10 Essential (primary) hypertension; D63.8 Anemia in other chronic diseases classified elsewhere; Z98.84 Bariatric surgery status
CPT/HCPCS: 36415; 72193; 76770; 80048; 80069; 80202; 81001; 82570; 83605; 84134; 84300; 85025; 85027; 85610; 85730; 86850; 86900; 86920; 86922; 87070; 87075; 87102; 87186; 87205; 87206; 87640; 88304; 97803; 99285; J7030; J7040; J7050; J7120; P9016; Q9967; A4216; J1940; J2405

== ENCOUNTER 2017-05-13 17:01 | Emergency (ER) | payer MEDICAID, SELFPAY ==
[2017-05-13 17:02] VITALS: BP 170/96; PULSE 97; RESP 16; TEMP 37.1; O2SAT 100; BMI 32.3
[2017-05-13] MEDS: 0.9% Normal Saline 1,000 ML 150 ML IV (19:15)
[2017-05-13] MEDS: Ondansetron 4 MG/2 ML Vial IV (19:16)
[2017-05-13 19:20] VITALS: BP 147/84; PULSE 84; RESP 16; TEMP 37.4; O2SAT 100
[2017-05-13 20:11] LABS: Anion Gap 11 (5-15); BUN 32 mg/dL (7-18); BUN/Creat Ratio 16.1 RATIO (10-20); Calcium,Total 8.7 mg/dL (8.5-10.1); Chloride 108 mmol/L (98-107); Creatinine, Serum 1.99 mg/dL (0.55-1.02); EST Glomerular Filtration Rate 31 mL/min (>60); Est Glom Filt Rate - Afr Amer 38 mL/min (>60); Estimated Creatinine Clearance 38.35 ml/min; Glucose 86 mg/dL (74-106); Sodium Level 141 mmol/L (136-145)
[2017-05-13 20:12] LABS: Absolute Lymphocyte Count 1.54 X10^3/ul (0.83-4.51); Basophil# 0.03 X10^3/uL; Basophil% 0.4 % (0-1); Eosinophil# 0.18 X10^3/uL; Eosinophils% 2.5 % (0-5); Hematocrit 28.8 % (37-47); Hemoglobin 9.3 g/dl (12.0-15.0); Lymphocyte # 1.54 X10^3/ul (4.0); Lymphocyte % 21.2 % (19-41); Mean Corp Hgb Conc 32.3 g/gl (32-36); Mean Corpuscular Hgb 26.6 pg (27.0-32.0); Mean Corpuscular Volume 82.3 fL (81-99); Monocyte# 0.54 X10^3/uL; Monocyte% 7.4 % (0-10); Neutrophil # 4.95 X10^3/uL (2.7-7.7); Neutrophil % 68.2 % (47-70); Platelet Count 609 K/mm3 (150-450); RBC Distribution Width CV 15.7 % (11.6-14.6); RBC Distribution Width SD 47.9 fl (35.1-43.9); White Blood Count 7.3 K/mm3 (4.4-11.0)
[2017-05-13 20:13] LABS: POSITIVE COUNT NO; POSITIVE DIFFERENTIAL NO; POSITIVE MORPHOLOGY NO
--- NOTE | 2017-05-13 22:01 | ED.VISSUMM ---
- ER Visit Summary Date of Service: 05/13/17 Chief Complaint: Abdominal pain History of Present Illness: The patient is a [address] Bethel Jauregui III and Dr. Mendieta. She has a complicated recent medical history. She was discharged in the hospital 3 days ago after 10 day hospitalization when a abdominal seroma was drained. She was found to have MSSA. She was on Ancef and Flagyl in the hospital. She was discharged on Keflex. Her hospitalization was complicated by acute kidney injury that was thought to be due to vancomycin. Patient reports that today she had a fever to 102.3?. She denies any sore throat or cough. She states that she has abdominal pain is 9 out of 10 with movement and sharp. It is a constant 7 out of 10 aching pain. She is taking 10 mg of oxycodone every 4 without relief. She has had nausea and dry heaves. She reports her last bowel movements today. She has had no diarrhea. No melena or hematochezia. No dysuria or frequency. Patient reports that she was discharged with a wound VAC. 2 days ago the home health nurse switch this to a wet and dry dressing and that is when the patient's been worsened. She reports that a wound VAC was placed again today, but her pain has not improved. Physical Examination: Vitals: Stable. Afebrile. General: Well-nourished and well-developed. Head: Normocephalic atraumatic. Neck: Supple, no lymphadenopathy. No JVD. Nontender. Cardiovascular: Regular rate and rhythm. No murmurs. Respiratory: No respiratory distress. Clear to auscultation bilaterally. Abdominal: Soft, mild diffuse tenderness to palpation, moderate tenderness palpation over the mons area that has mild erythema, nondistended, normal bowel sounds. No guarding, rebound, or peritoneal signs. The wound VAC is T-shaped and in good position. It appears to be working well. There is no surrounding drainage or erythema. Back: Nontender. Extremities: Nontender, no edema. Skin: Normal color, no rash. Neurologic: Alert and oriented ?3. Cranial nerves II through XII are intact. Normal strength and sensation. Psych: Normal affect. Test Results: CBC is marked for an H&H of 9.3 and 28.8, platelets of 609. Chem-7 is more for chloride of 108 and creatinine 1.99. Emergency Department Course and Treatment: Patient was treated with morphine and Zofran IV. She is resting comfortably. Treatment Plan: Patient was discussed with Dr. Mendieta. He would like her to follow-up in the wound clinic and also in his office. She is instructed to speak with him about further pain management. Return to the emergency department for any worsening symptoms. Disposition: To home in improved and stable condition. Impression: 1. Postop day #10 status post drainage of seroma. 2. Anemia. 3. Renal insufficiency, improved. This note was generated with [employer] dictation software. It may contain incorrect words, spelling, and punctuation that were not noted in review of the chart prior to signing ED Disposition - Plan for ED Patient: Disposition: Home or Assisted Living Chief Complaint: Abd Pain Instructions: ED Post Op Pain Referrals: Gigi Mendieta MD [STAFF PHYSICIAN] - 1 Day for another exam
[2017-05-13 22:16] VITALS: BP 149/74; PULSE 89; RESP 18; O2SAT 99
== END 2017-05-13 22:18 | disposition home or self-care (01) ==
LOC: ED 18:11
PROVIDERS: Emergency Provider Emergency Medicine; Family Provider Family Medicine; PCP Family Medicine
DX: K91.873 Postprocedural seroma of a digestive system organ or structure following other procedure (principal); Y83.9 Surgical procedure, unspecified as the cause of abnormal reaction of the patient, or of later complication, without mention of misadventure at the time of the procedure; D64.9 Anemia, unspecified; N28.9 Disorder of kidney and ureter, unspecified; I10 Essential (primary) hypertension; Z98.84 Bariatric surgery status
CPT/HCPCS: 80048; 85025; 96361; 96374; 96375; 96376; 99285; J7030; A4216; J2405

== ENCOUNTER 2017-05-21 11:58 | Emergency (ER) | payer MEDICAID, SELFPAY ==
[2017-05-21 11:59] VITALS: BP 163/91; PULSE 92; RESP 16; TEMP 37.3; O2SAT 99; BMI 31.0
--- NOTE | 2017-05-21 13:10 | RAD_ITS ---
STUDY: X-RAY - ACUTE ABDOMINAL SERIES REASON FOR EXAM: Female, 32 years old. History of recent gastric bypass surgery. 4-5 day history of vomiting. TECHNIQUE: Single view of the chest. Supine, and erect view(s) of the abdomen were obtained. COMPARISON: None. FINDINGS: The lungs are clear and expanded. Normal size heart. Normal mediastinum and kuldeep. Normal visualized pulmonary arteries. Normal visualized aortic arch and descending thoracic aorta. There is a non-specific bowel gas pattern. The patient is status post cholecystectomy. Surgical sutures are seen in the region of the stomach and tip with prior surgery. Normal visualized osseous structures. RAD/Acute Abdomen Inc Chest IMPRESSION: Nonspecific bowel gas pattern. Electronically Signed: Demetrius Brandon MD at 14:57 EST Tel [phone], Service support ,
--- NOTE | 2017-05-21 13:34 | ED.DCSUM_ITS ---
- ER Visit Summary Date of Service: 05/21/17 Chief Complaint: Vomiting History of Present Illness: The patient is a 32 F who just had plastic surgery on her lower abdominal wall for access tissue that has been present since she lost a lot of weight after having a remote gastric bypass surgery. Her recent surgery was a couple weeks ago. For the last 4 or 5 days, she has had increasing vomiting to the point of having trouble keeping down oral liquids, subsequent fatigue, decreased oral intake, decreasing bowel movements her last normal one was yesterday morning, and she has been having incisional pain since the surgery. Her wound is an open wound which is being packed every other day, with dressing changes every day by home health nurse, but the mass of soft tissue in her lower pelvis is still present, she has pain in her lower incision area especially feeling like the mass of soft tissue is pulling at it due to gravity. She does not have significant other abdominal discomfort other than at the wound. No urinary symptoms except for decreased urine output. She was admitted postoperatively for renal failure, and she was sent for IV fluids and further evaluation to ensure she is not developing that again. She had a dressing change and repacked just prior to coming here. Physical Examination: No acute distress, keenly alert and well appearing. Oral mucous membranes are moist. Not tachycardic. She has a large open subcutaneous wound on her lower abdominal wall that goes all the way across her lower abdomen, there is subcutaneous tissue exposed there are pieces of silver- embedded gauze within the wound, followed by a gauze packing and an ABD pad over top. The wound appears to be healthy and well perfused without any ischemic or infected tissue. It is quite sore and tender to palpation. The skin edges appear healthy and without any signs of cellulitis. Distal to this, she has a mass of nontender fatty tissue that leads into her labia majora bilaterally. The skin overlying this does not appear to be cellulitic. Her lungs are clear to auscultation, she is neurologically intact throughout all 4 extremities. Test Results: Normal labs including renal function. Normal acute abdominal series. Emergency Department Course and Treatment: Symptoms are improved after treatment here with fluids, promethazine IV, morphine. She complained more of a headache and she did abdominal discomfort. Tolerating oral fluids. Possible unrelated viral gastritis or vomiting related to incisional pain which is severe when she has her woundvac dressing replaced. Reassured and stable to follow-up. Treatment Plan: Supportive. She states she has promethazine and Zofran at home and declines prescription for Phenergan suppositories. Disposition: Discharge home Impression: Postoperative abdominal wall pain Vomiting with mild dehydration This note was generated with [employer] dictation software. It may contain incorrect words, spelling, and punctuation that were not noted in review of the chart prior to signing ED Disposition - Plan for ED Patient: Disposition: Home or Assisted Living Chief Complaint: Nausea/Vomiting Instructions: ED Gastritis Referrals: Bethel Jauregui III, MD [Primary Care Provider] - 3-5 Days if not improving
[2017-05-21 14:04] LABS: Anion Gap 9 (5-15); BUN 9 mg/dL (7-18); BUN/Creat Ratio 12.7 RATIO (10-20); Calcium,Total 9.1 mg/dL (8.5-10.1); Chloride 106 mmol/L (98-107); Creatinine, Serum 0.71 mg/dL (0.55-1.02); EST Glomerular Filtration Rate 103 mL/min (>60); Est Glom Filt Rate - Afr Amer 124 mL/min (>60); Estimated Creatinine Clearance 107.48 ml/min; Glucose 84 mg/dL (74-106); Potassium 4.3 mmol/L (3.5-5.1); Sodium Level 138 mmol/L (136-145)
[2017-05-21] MEDS: 0.9% Normal Saline 1,000 ML 999 ML IV (14:12)
[2017-05-21 14:14] VITALS: BP 156/88; PULSE 85; RESP 16; O2SAT 99
[2017-05-21 14:55] LABS: Absolute Lymphocyte Count 1.56 X10^3/ul (0.83-4.51); Basophil# 0.05 X10^3/uL; Basophil% 0.6 % (0-1); Eosinophils% 1.2 % (0-5); Hematocrit 30.5 % (37-47); Lymphocyte # 1.56 X10^3/ul (4.0); Lymphocyte % 18.7 % (19-41); Mean Corp Hgb Conc 32.8 g/gl (32-36); Mean Corpuscular Hgb 27.4 pg (27.0-32.0); Mean Corpuscular Volume 83.6 fL (81-99); Mean Platelet Vol. 10.6 fl (6.2-12.0); Monocyte# 0.64 X10^3/uL; Monocyte% 7.7 % (0-10); Neutrophil # 5.97 X10^3/uL (2.7-7.7); Neutrophil % 71.6 % (47-70); POSITIVE COUNT NO; POSITIVE DIFFERENTIAL NO; POSITIVE MORPHOLOGY NO; Platelet Count 651 K/mm3 (150-450); RBC Distribution Width CV 15.4 % (11.6-14.6); RBC Distribution Width SD 46.1 fl (35.1-43.9); Red Blood Count 3.65 M/mm3 (4.2-5.4); White Blood Count 8.3 K/mm3 (4.4-11.0)
[2017-05-21] MEDS: Acetaminophen 500 MG Tablet 1000 MG PO (15:52)
[2017-05-21 16:14] VITALS: BP 163/89; PULSE 77; RESP 16; O2SAT 99
--- NOTE | 2017-05-21 16:15 | ED.RN ---
Verbal and written d/c instructions given. All questions answered. Skin w/d. ABCs intact. Gait slow and steady out of department.
== END 2017-05-21 16:15 | disposition home or self-care (01) ==
PROVIDERS: Emergency Provider Emergency Medicine; Family Provider Family Medicine; PCP Family Medicine
DX: G89.18 Other acute postprocedural pain (principal); R10.9 Unspecified abdominal pain; R11.10 Vomiting, unspecified; E86.0 Dehydration; Z98.84 Bariatric surgery status
CPT/HCPCS: 74022; 80048; 85025; 96361; 96374; 96375; 96376; 99285; J7030; A4216

== ENCOUNTER 2017-05-30 14:53 | Emergency (ER) | payer MEDICAID, SELFPAY ==
[2017-05-30 14:54] VITALS: BP 176/102; PULSE 102; RESP 16; TEMP 37.2; O2SAT 100; BMI 30.4
--- NOTE | 2017-05-30 15:27 | ED.VISSUMM ---
- ER Visit Summary Date of Service: 05/30/17 Chief Complaint: Right flank pain, wound check History of Present Illness: The patient is a 32 F right flank pain radiates to the side since yesterday. History of kidney stone since 2007. States calcium oxalate stones. Followed by [facility], mariola states physician has retired since. Has had total of 5 positions all retired, currently does not have a urologist. States has had microscopic hematuria in the past with her stones. No dysuria. Did take her low-dose [place] which has not helped her pain since this morning. States her most part [place] would help her symptoms. Couple episodes where she needed additional pain medications. She is on daily Flomax. Patient also wants wound check of her lower abdomen. Has had complications since her gastric bypass in 2016. She is followed by Dr. cinthia Soni. Wound VAC was removed 2 weeks ago. Does daily dressings. Always had minimal drainage, however yesterday increasing drainage is malodorous. Subjective fevers. Next appointment in [address] Mendieta. She finished Keflex a week ago. Has not had MRSA in her wound. She states previous antibiotics for which unclear on the name has caused acute kidney injury. Denies any nausea or vomiting. States had 5 episodes of loose stools since 3 AM. Abdominal discomfort around the wound region. Denies any diabetes or any tobacco history. Physical Examination: General: Alert and oriented ?3, no acute distress HEENT: Normocephalic, atraumatic. Moist mucosa membranes Neck: supple, nontender. Cardiovascular: Regular rate and rhythm, no murmurs Respiratory: Normal breath sounds, symmetric, no distress Abdomen: Soft, wound lower abdominal suprapubic under panniculus good granulations. Wound samples of approximately 8 cm x 6 cm, dressing soaked, malodorous. No surrounding erythema. No indurations. LExtremities: Nontender, no edema, pulses intact ?4 Neuro: no focal neurological deficits. Test Results: WBC 8.6. Creatinine 0.56. Urine negative for infection or blood. Wound culture sent and is pending. CT scan abdomen pelvis, nephrolithiasis without urolithiasis. Possible mild nonspecific ileus, no wound abscess. Emergency Department Course and Treatment: Patient presents with multiple complaints. Initially with her increasing drainage site from her healing wounds. She was given Ancef. I did obtain wound cultures prior. Her CBC with a normal white count. As for her flank pain, initially treated symptomatically with 2 doses of morphine. Reevaluation states still had pain that returned only transiently improved. Normal renal function normal urine. States she passes multiple stones constantly. Discussed with recurring pain symptoms for imaging for further evaluation. She agrees. There is nephrolithiasis without urolithiasis. There is no wound abscess in her abdomen. Noted by radiology mild nonspecific ileus. She has no current vomiting. With fentanyl dosing she had improvement symptoms. She does have [place] at home to take. She be started on Keflex for increasing wound drainage. She will call Dr. Mendieta in the morning for an earlier follow-up. All questions were answered. Treatment Plan: [] Disposition: Discharge Impression: 1. Right flank pain 2. Wound drainage This note was generated with EM[employer]ZE dictation software. It may contain incorrect words, spelling, and punctuation that were not noted in review of the chart prior to signing ED Disposition - Plan for ED Patient: Disposition: Home or Assisted Living Chief Complaint: Wound Diagnosis: Right flank pain, Increased wound drainage Instructions: ED Flank Pain Uncertain Cause, Wound Care Prescriptions: Cephalexin [Keflex] 500 mg PO Q6 #40 capsule Referrals: Bethel Jauregui III, MD [Primary Care Provider] - Gigi Mendieta MD [STAFF PHYSICIAN] - 2 Days for wound check
[2017-05-30 15:40] LABS: Absolute Lymphocyte Count 1.59 X10^3/ul (0.83-4.51); Absolute Neutrophil Count 6.2 X10^3/uL (2.0-7.7); Basophil# 0.03 X10^3/uL; Basophil% 0.4 % (0-1); Eosinophil# 0.09 X10^3/uL; Eosinophils% 1.1 % (0-5); Hematocrit 32.8 % (37-47); Hemoglobin 10.7 g/dl (12.0-15.0); Lymphocyte # 1.59 X10^3/ul (4.0); Lymphocyte % 18.6 % (19-41); Mean Corp Hgb Conc 32.6 g/gl (32-36); Mean Corpuscular Volume 82.8 fL (81-99); Mean Platelet Vol. 10.2 fl (6.2-12.0); Monocyte# 0.61 X10^3/uL; Monocyte% 7.1 % (0-10); Neutrophil # 6.22 X10^3/uL (2.7-7.7); Neutrophil % 72.7 % (47-70); POSITIVE COUNT NO; POSITIVE DIFFERENTIAL NO; POSITIVE MORPHOLOGY NO; Platelet Count 494 K/mm3 (150-450); RBC Distribution Width CV 16.6 % (11.6-14.6); RBC Distribution Width SD 50.4 fl (35.1-43.9); Red Blood Count 3.96 M/mm3 (4.2-5.4); White Blood Count 8.6 K/mm3 (4.4-11.0)
[2017-05-30 15:52] LABS: Anion Gap 9 (5-15); BUN 8 mg/dL (7-18); BUN/Creat Ratio 14.2 RATIO (10-20); Calcium,Total 9.1 mg/dL (8.5-10.1); Chloride 106 mmol/L (98-107); Creatinine, Serum 0.56 mg/dL (0.55-1.02); EST Glomerular Filtration Rate 133 mL/min (>60); Est Glom Filt Rate - Afr Amer 161 mL/min (>60); Estimated Creatinine Clearance 136.26 ml/min; Glucose 84 mg/dL (74-106); Potassium 3.8 mmol/L (3.5-5.1); Sodium Level 140 mmol/L (136-145)
[2017-05-30] MEDS: 0.9% Normal Saline 1,000 ML 1000 ML IV (15:58)
[2017-05-30] MEDS: Cefazolin 2 GM in 0.9% Normal Saline 100 ML IV (15:58)
[2017-05-30 17:28] VITALS: BP 175/88; PULSE 86; RESP 16
[2017-05-30 17:43] LABS: Bacteria 0 SEEN /hpf (None Seen); Squamous Epithelial Cells - UA 0 SEEN /hpf (5-10); White Blood Cells 0 SEEN /hpf (0-5)
[2017-05-30 17:51] LABS: Color, Urine Yellow (Yellow); Glucose, Dipstick Normal (Normal); Ketone-Dipstick 50 mg/dl (Negative); Leukocyte Esterase-Dipstick Negative /ul (Negative); Nitrite-Dipstick Negative (Negative); Occult Blood-Urine Negative /ul (Negative); Protein-Dipstick 15 mg/dl (Negative); Urine Bilirubin Dipstick Negative (Negative); Urine Clarity Clear (Clear); Urine Urobilinogen Normal (Normal)
[2017-05-30 18:01] LABS: Mucous, Urine 1+ /hpf (<or=2+); Red Blood Cells-Urine 0-5 SEEN /hpf (0-5)
--- NOTE | 2017-05-30 18:25 | CT_ITS ---
STUDY: CT ABDOMEN AND PELVIS WITHOUT CONTRAST REASON FOR EXAM: Female, 32 years old. Right flank pain recent removal of wound VAC RADIATION DOSAGE (If Supplied By Facility): CTDIvol = ( 15.66 ) mGy, DLP = ( 805.92 ) mGycm TECHNIQUE: Transaxial images were obtained from the dome of the diaphragm to the symphysis pubis without oral contrast, and without intravenous contrast. Sagittal and coronal images were reconstructed. Individualized dose optimization techniques were used for this CT. COMPARISON: April 30, 2017 FINDINGS: The visualized lung bases are unremarkable. The visualized portions of the heart are within normal limits. Postsurgical changes status post gastric bypass. Normal liver. Status post cholecystectomy. Normal spleen. Normal pancreas. Normal bilateral adrenal glands. There are 2 tiny nonobstructing calculi in the right kidney one in the left. No evidence for hydronephrosis or ureteral calculus. No renal mass given limited unenhanced nature of the study. Normal visualized stomach. Mild nonspecific ileus. No evidence for small bowel obstruction or pneumoperitoneum Normal colon. No evidence for acute appendicitis.. Normal abdominal aorta. Normal inferior vena cava. Normal retroperitoneum. Incompletely distended thick-walled bladder likely of no significance. There are phlegmonous changes within the subcutaneous fat anterior to the pubic symphysis with air bubbles.. There is no definitive evidence for well-defined abscess. Lumbar spine demonstrates moderate spondylosis CT/Abdomen/Pelvis without Cont IMPRESSION: Mild nonspecific ileus. Bilateral nephrolithiasis without evidence for hydronephrosis or ureteral calculus. Postop changes status post gastric bypass and cholecystectomy Other findings as above Electronically Signed: Cm Ivey MD at 19:18 EDT , Service support ,
[2017-05-30] MEDS: fentaNYL 100 MCG/2 ML Ampul 50 MCG IV (18:53)
[2017-05-30 20:17] VITALS: BP 169/92; PULSE 79
== END 2017-05-30 20:18 | disposition home or self-care (01) ==
PROVIDERS: Emergency Provider Emergency Medicine; Family Provider Family Medicine; PCP Family Medicine
DX: R10.9 Unspecified abdominal pain (principal); N20.0 Calculus of kidney; I10 Essential (primary) hypertension; Z87.442 Personal history of urinary calculi
CPT/HCPCS: 74176; 80048; 81001; 85025; 87070; 87077; 87186; 87205; 96365; 96375; 96376; 99282; J7030; A4216

== ENCOUNTER 2017-06-01 17:20 | Emergency (ER) | payer MEDICAID, SELFPAY ==
[2017-06-01 17:21] VITALS: BP 152/99; PULSE 103; RESP 18; TEMP 37.2; O2SAT 100; BMI 30.9
[2017-06-01 18:11] LABS: Absolute Lymphocyte Count 1.53 X10^3/ul (0.83-4.51); Absolute Neutrophil Count 5.2 X10^3/uL (2.0-7.7); Basophil# 0.04 X10^3/uL; Basophil% 0.5 % (0-1); Eosinophils% 1.3 % (0-5); Hematocrit 31.2 % (37-47); Hemoglobin 10.2 g/dl (12.0-15.0); Lymphocyte # 1.53 X10^3/ul (4.0); Lymphocyte % 20.2 % (19-41); Mean Corp Hgb Conc 32.7 g/gl (32-36); Mean Corpuscular Hgb 27.3 pg (27.0-32.0); Mean Corpuscular Volume 83.4 fL (81-99); Mean Platelet Vol. 10.4 fl (6.2-12.0); Monocyte# 0.68 X10^3/uL; Neutrophil # 5.19 X10^3/uL (2.7-7.7); Neutrophil % 68.7 % (47-70); Platelet Count 436 K/mm3 (150-450); RBC Distribution Width CV 16.7 % (11.6-14.6); RBC Distribution Width SD 49.8 fl (35.1-43.9); Red Blood Count 3.74 M/mm3 (4.2-5.4); White Blood Count 7.6 K/mm3 (4.4-11.0)
[2017-06-01 18:15] LABS: POSITIVE COUNT NO; POSITIVE DIFFERENTIAL NO; POSITIVE MORPHOLOGY NO
[2017-06-01 18:24] LABS: Anion Gap 7 (5-15); BUN 10 mg/dL (7-18); BUN/Creat Ratio 14.5 RATIO (10-20); Calcium,Total 8.8 mg/dL (8.5-10.1); Chloride 107 mmol/L (98-107); Creatinine, Serum 0.69 mg/dL (0.55-1.02); EST Glomerular Filtration Rate 105 mL/min (>60); Est Glom Filt Rate - Afr Amer 128 mL/min (>60); Estimated Creatinine Clearance 110.59 ml/min; Glucose 86 mg/dL (74-106); Potassium 3.6 mmol/L (3.5-5.1); Sodium Level 140 mmol/L (136-145)
[2017-06-01] MEDS: 0.9% Normal Saline 1,000 ML 1000 ML IV (18:29)
--- NOTE | 2017-06-01 19:01 | ED.RN ---
PT REQUESTING FOOD AND DRINK, CRACKERS AND SPRITE GIVEN, ADVISED PT TO NIBBLE ON CRACKERS AND TAKE SMALL SIPS ONLY. PT CALLED THIS RN TO ROOM APPROX 5 MIN LATER, STATES I THREW UP AGAIN. PT HAD EATEN 4 PACKS OF CRACKERS. THIS RN ADVISED PT TO WAIT LONGER FOR NAUSEA MEDICATION TO BE MORE EFFECTIVE, ADVISED AGAINST EATING, TRY LIQUIDS ONLY IN SMALL AMOUNTS.
[2017-06-01] MEDS: Ondansetron 4 MG/2 ML Vial IV ×2 (19:07→20:20)
[2017-06-01] MEDS: fentaNYL 100 MCG/2 ML Ampul 25 MCG IV (20:10)
[2017-06-01] MEDS: 0.9% Normal Saline 1,000 ML 150 ML IV (20:17)
[2017-06-01 20:18] VITALS: BP 146/83; PULSE 81; RESP 16; O2SAT 100
--- NOTE | 2017-06-01 20:30 | ED.VISSUMM ---
- ER Visit Summary Date of Service: 06/01/17 Chief Complaint: Surgical site infection and nausea and vomiting History of Present Illness: The patient is a 32 F reports a chronic abdominal wound. She is scheduled to have a wound VAC placed tomorrow and see Dr. Mendieta next week. Patient states she has been getting green drainage from the site. She was started on Keflex yesterday for the same. Is also complaining of nausea and vomiting and states she is unable to keep anything down. She states that she felt lightheaded when she stood up. Physical Examination: Vital signs are unremarkable. Patient sitting upright in bed no acute distress. Head neck examination is normal. Heart is regular rate and rhythm. Lung sounds are clear. Abdomen is soft with a large surgical incision on lower abdomen. Wound has clean edges. I do not see any purulent drainage at this time. Test Results: I did review the patient's recent CT scan. CBC and chemistry studies tonight are normal. Emergency Department Course and Treatment: Patient was given morphine, Phenergan, and IV fluids. She did poorly have one episode of vomiting after eating some crackers here. She is given Zofran. I spoke with Dr. Mendieta, the patient's surgeon. Patient is to be given Zofran for home and continue the Keflex. She is to have a wound VAC placed tomorrow as planned and he will see her in the office on Wednesday. Treatment Plan: [] Disposition: Discharge Impression: 1. Reported nausea and vomiting 2. Chronic abdominal wound This note was generated with [employer] dictation software. It may contain incorrect words, spelling, and punctuation that were not noted in review of the chart prior to signing ED Disposition - Plan for ED Patient: Disposition: Home or Assisted Living Chief Complaint: Wound Instructions: ED Nausea Vomiting Prescriptions: Ondansetron [Zofran Odt] 4 mg PO Q8H PRN PRN #20 tablet PRN Reason: Nausea Referrals: Bethel Jauregui III, MD [Primary Care Provider] - Gigi Mendieta MD [STAFF PHYSICIAN] - Keep Tamanna appointment
[2017-06-01 20:54] VITALS: BP 149/93; PULSE 86
== END 2017-06-01 21:08 | disposition home or self-care (01) ==
PROVIDERS: Emergency Provider Emergency Medicine; Family Provider Family Medicine; PCP Family Medicine
DX: R11.2 Nausea with vomiting, unspecified (principal); T81.89XD Other complications of procedures, not elsewhere classified, subsequent encounter; I10 Essential (primary) hypertension; F41.9 Anxiety disorder, unspecified; Z87.442 Personal history of urinary calculi; E66.9 Obesity, unspecified
CPT/HCPCS: 80048; 85025; 96361; 96374; 96375; 96376; 99283; J7030; A4216; J2405

== ENCOUNTER 2017-06-07 09:00 | Outpatient (RCR) | payer MEDICAID, SELFPAY ==
[2017-05-24 08:39] VITALS: BP 152/95; PULSE 86; RESP 18; TEMP 37.3; BMI 29.0
--- NOTE | 2017-05-24 22:30 | PCM.WC.PN ---
Type of Wound Date of Service: 05/24/17 Chief Complaint: Nonhealing infected hematoma ulcer lower anterior abdominal wall and pubic area. History of Wound: Surgery 05/03/17 - Surgical preparation lower anterior abdominal wall and pubic area with incision and drainage and excisional debridement infected seroma/hematoma (250 cm2). Wound care - VAC. Operative culture - Staphylococcus aureus. She was discharged on Keflex and has finished them. Prealbumin from 05/10/17 was 11.6. Encourage nutritional supplementation with protein to help the healing process. CT Pelvis from 04/30/17 showed a subcutaneous fluid collection most likely represents a postoperative seroma. Today she complains of pain with the VAC. Progress of Wound: Improved. - Physical Exam Vital Signs Temp Pulse Resp BP 99.1 F 86 18 152/95 H 05/24/17 08:39 05/24/17 08:39 05/24/17 08:39 05/24/17 08:39 Wound Measurements and Assessment WC - Nurse 1 - General Ulcer Measurement Start: 05/24/17 08:09 Freq: Status: Active Protocol: Activity Type Activity Date Activity User E-Sign Co-Sign Detail Recorded Client Recorded Date Recorded By Document 05/24/17 08:39 DV [id number] 05/24/17 08:56 DV 05/24/17 08:39 Wound Center Nurse 1 [Ulcer Assessment] #1 Lower Abdomen -Combined with other wound No -Current Size (cm) - Length 7.5 -Current Size (cm) - Width 18.0 -Current Size (cm) - Depth 2.5 -Total Square Cm 135.00 -Date of Last Picture (Recall this 05/24/17 field) -Photo Taken Yes -Epithelialization Small 1-33% -Tunneling No -Undermining/Tunneling Yes -Undermining/Tunneling Starts (O' 5 clock) -Undermining/Tunneling Ends (O'clock) 7 -Maximum Distance (cm) 7.2 -Circular Undermining No -Classification - Thickness Full Thickness without Exposed Support Structure -Exudate Amt Small (1-33%) -Exudate Type Serosanguineous -Wound Margin Distinct, Outline Attached -Granulation Amt Large (67-100%) -Granulation Quality Red -Slough/Fibrin Yes -Necrosis Amt Medium (34-66%) -Necrotic Tissue Type Adherent Slough -Structure Exposed Fat Layer Exposed -Texture (Catrachita-wound Skin Appearance) Assessed Scarring -Moisture (Catrachita-wound Skin Appearance No Abnormality ) Assessed -Color (Catrachita-wound Skin Appearance) Assessed -Temperature (Catrachita-wound Skin No Abnormality Appearance) (Pt Warm) -Tenderness on Palpation (Catrachita-wound Yes Skin Appearance) -Ulcer Cleansing Rinsed/ Irrigated with Saline -Foul Odor after Cleansing No -Anesthetic Used 4% Lidocaine Solution - Nurse 2 - General Ulcer CM Notes Start: 05/24/17 08:09 Freq: Status: Active Protocol: Activity Type Activity Date Activity User E-Sign Co-Sign Detail Recorded Client Recorded Date Recorded By Document 05/24/17 09:23 JF [id number] 05/24/17 09:24 05/24/17 09:23 Wound Center Nurse 2 [Procedure/Treatment] -Time 09:24 -Correct Patient Yes -Correct Side, Site, Position Yes -Correct Procedure Yes -Procedure Performed Yes -Type of Procedure Debridement -Clinical Debridement Subcutaneous -Post Debridement Size (cm) - Length 7.6 -Post Debridement Size (cm) - Width 18 -Post Debridement Size (cm) - Depth 2.6 -Total Square Cm 136.8 -Wound/Ulcer Outcome Not Healed -Ulcer Cleansing Rinsed/ Irrigated with Saline -Foul Odor after Cleansing No -Bioengineered Tissue No -Bleeding Controlled with Pressure -Treatment Response Procedure Tolerated Well [See Physician Procedure note for Specifics] Pain Scale: 0-10 Numeric [Pain] -Is Patient Pain Free? Yes Debridement Note Post-Debridement Measurements/Treatment - Nurse 2 - General Ulcer CM Notes Start: 05/24/17 08:09 Freq: Status: Active Protocol: Activity Type Activity Date Activity User E-Sign Co-Sign Detail Recorded Client Recorded Date Recorded By Document 05/24/17 09:23 JF [id number] 05/24/17 09:24 JF 05/24/17 09:23 Wound Center Nurse 2 #1 Lower Abdomen -Time 09:24 -Correct Patient Yes -Correct Side, Site, Position Yes -Correct Procedure Yes -Procedure Performed Yes -Type of Procedure Debridement -Clinical Debridement Subcutaneous -Post Debridement Size (cm) - Length 7.6 -Post Debridement Size (cm) - Width 18 -Post Debridement Size (cm) - Depth 2.6 -Total Square Cm 136.8 -Wound/Ulcer Outcome Not Healed -Ulcer Cleansing Rinsed/ Irrigated with Saline -Foul Odor after Cleansing No -Bioengineered Tissue No -Bleeding Controlled with Pressure -Treatment Response Procedure Tolerated Well Pain Scale: 0-10 Numeric Is Patient Pain Free? Yes Wound debrided: #1 Lower anterior abdominal wall and pubic area. Laterality: Not Applicable Wound Grade/Stage: 2. Type of Debridement: Excisional debridement Anesthesia Used: 4% Lidocaine Solution Depth: Down to and including healthy tissue, in the subcutaneous layer Percentage of wound debrided: 100 Instrument Used: 7mm curette Tissue Removed: subcutaneous tissue. Severity: Fat Layer Exposed Amount of bleeding with debridement: Mild Bleeding Controlled with: Pressure Patient tolerated procedure well Assessment/Plan Assessment: 1. Nonhealing infected hematoma ulcer lower anterior abdominal wall and pubic area. 2. ERIKA (acute kidney injury), resolving. 3. Anemia of chronic disease, stable. 4. Lymphedema pubic area. 5. 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 6. History of MRSA. Plan: The VAC has been painful recently and she is having trouble with it. Will continue daily Silver dressing changes. Patient wants to go back to work tomorrow. Restrictions include 4 hours/day and no more than 20 hours per week. Her operative culture showed Staphylococcus aureus and has finished Keflex. Her Prealbumin was 11.6 on 05/10/17. Encourage nutritional supplementation with protein to help the healing process. If the pain continues with the Silver dressing changes, then can proceed with delayed closure with skin grafting. Patient will think about it and let me know. Followup 2 weeks.
[2017-06-07 09:05] VITALS: BP 146/97; PULSE 85; RESP 18; TEMP 37.1; BMI 29.0
--- NOTE | 2017-06-07 18:09 | PN.PCM_ITS ---
Type of Wound Date of Service: 06/07/17 Chief Complaint: Nonhealing infected hematoma ulcer lower anterior abdominal wall and pubic area. History of Wound: Surgery 05/03/17 - Surgical preparation lower anterior abdominal wall and pubic area with incision and drainage and excisional debridement infected seroma/hematoma (250 cm2). Wound care - VAC. Operative culture - Staphylococcus aureus. She was discharged on Keflex and has finished them. Recent wound culture from 05/30/17 showed Morganella morgannii and Staphylococcus aureus. Will begin Levaquin. Prealbumin from 05/10/17 was 11.6. Encourage nutritional supplementation with protein to help the healing process. CT Pelvis from 04/30/17 showed a subcutaneous fluid collection most likely represents a postoperative seroma. She had complains of pain with the VAC and her wound care was switched to Silver. With recent improvement in pain , she switched back to the VAC. Today she denies any fever. Her appetite is good. Progress of Wound: Slilghtly improved. - Physical Exam Vital Signs Temp Pulse Resp BP 98.7 F 85 18 146/97 H 06/07/17 09:05 06/07/17 09:05 06/07/17 09:05 06/07/17 09:05 Wound Measurements and Assessment WC - Nurse 1 - General Ulcer Measurement Start: 05/24/17 08:09 Freq: Status: Active Protocol: Activity Type Activity Date Activity User E-Sign Co-Sign Detail Recorded Client Recorded Date Recorded By Document 06/07/17 09:05 [id number] 06/07/17 09:06 TM 06/07/17 09:05 Wound Center Nurse 1 [Ulcer Assessment] #1 Lower Abdomen -Combined with other wound No -Current Size (cm) - Length 4.0 -Current Size (cm) - Width 17.0 -Current Size (cm) - Depth 2.0 -Total Square Cm 68.00 -Photo Taken No -Epithelialization Small 1-33% -Tunneling No -Undermining/Tunneling No -Circular Undermining No -Classification - Thickness Full Thickness without Exposed Support Structure -Exudate Amt Medium (34-66%) -Exudate Type Serosanguineous -Wound Margin Distinct, Outline Attached -Granulation Quality Red -Slough/Fibrin Yes -Necrosis Amt Small (1-33%) -Necrotic Tissue Type Adherent Slough -Structure Exposed Fascia Fat Layer Exposed -Texture (Catrachita-wound Skin Appearance) Localized Edema Scarring -Moisture (Catrachita-wound Skin Appearance No Abnormality ) -Color (Catrachita-wound Skin Appearance) Erythema -Temperature (Catrachita-wound Skin No Abnormality Appearance) (Pt Warm) -Tenderness on Palpation (Catrachita-wound Yes Skin Appearance) -Ulcer Cleansing Rinsed/ Irrigated with Saline -Foul Odor after Cleansing No -Anesthetic Used 4% Lidocaine Solution [Edema Assessment] -Lower Limb Edema Present No WC - Nurse 2 - General Ulcer CM Notes Start: 05/24/17 08:09 Freq: Status: Active Protocol: Activity Type Activity Date Activity User E-Sign Co-Sign Detail Recorded Client Recorded Date Recorded By Document 06/07/17 09:38 [id number] 06/07/17 09:39 06/07/17 09:38 Wound Center Nurse 2 [Procedure/Treatment] #1 Lower Abdomen -Time 09:38 -Correct Patient Yes -Correct Side, Site, Position Yes -Correct Procedure Yes -Procedure Performed Yes -Type of Procedure Debridement -Clinical Debridement Subcutaneous -Post Debridement Size (cm) - Length 4 -Post Debridement Size (cm) - Width 17.1 -Post Debridement Size (cm) - Depth 2.0 -Total Square Cm 68.4 -Wound/Ulcer Outcome Not Healed -Ulcer Cleansing Rinsed/ Irrigated with Saline -Foul Odor after Cleansing No -Bioengineered Tissue No -Bleeding Controlled with Pressure -Treatment Response Procedure Tolerated Well [See Physician Procedure note for Specifics] Pain Scale: 0-10 Numeric [Pain] -Is Patient Pain Free? Yes Debridement Note Post-Debridement Measurements/Treatment - Nurse 2 - General Ulcer CM Notes Start: 05/24/17 08:09 Freq: Status: Active Protocol: Activity Type Activity Date Activity User E-Sign Co-Sign Detail Recorded Client Recorded Date Recorded By Document 05/24/17 09:23 [id number] 05/24/17 09:24 Document 06/07/17 09:38 [id number] 06/07/17 09:39 05/24/17 06/07/17 09:23 09:38 Wound Center Nurse 2 #1 Lower Abdomen -Time 09:24 09:38 -Correct Patient Yes Yes -Correct Side, Site, Position Yes Yes -Correct Procedure Yes Yes -Procedure Performed Yes Yes -Type of Procedure Debridement Debridement -Clinical Debridement Subcutaneous Subcutaneous -Post Debridement Size (cm) - Length 7.6 4 -Post Debridement Size (cm) - Width 18 17.1 -Post Debridement Size (cm) - Depth 2.6 2.0 -Total Square Cm 136.8 68.4 -Wound/Ulcer Outcome Not Healed Not Healed -Ulcer Cleansing Rinsed/ Rinsed/ Irrigated with Irrigated with Saline Saline -Foul Odor after Cleansing No No -Bioengineered Tissue No No -Bleeding Controlled with Pressure Pressure -Treatment Response Procedure Procedure Tolerated Well Tolerated Well Pain Scale: 0-10 Numeric Is Patient Pain Free? Yes Yes Wound debrided: #1 Lower anterior abdominal wall and pubic area. Laterality: Not Applicable Wound Grade/Stage: 2. Type of Debridement: Excisional debridement Anesthesia Used: 4% Lidocaine Solution Depth: Down to and including healthy tissue, in the subcutaneous layer Percentage of wound debrided: 100 Instrument Used: 7mm curette Tissue Removed: subcutaneous tissue. Severity: Fat Layer Exposed Amount of bleeding with debridement: Mild Bleeding Controlled with: Pressure Patient tolerated procedure well Assessment/Plan Assessment: 1. Nonhealing infected hematoma ulcer lower anterior abdominal wall and pubic area. 2. ERIKA (acute kidney injury), resolving. 3. Anemia of chronic disease, stable. 4. Lymphedema pubic area. 5. 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 6. History of MRSA. Plan: She is back on the VAC to be changed three times per week at 150 mmHg continuous suction. She is doing ok at work. Her operative culture showed Staphylococcus aureus and has finished Keflex. She had a more recent culture on 05/30/17 which showed Morganella morgannii and Staphylococcus aureus. Started her on Levaquin. Her Prealbumin was 11.6 on 05/10/17. Encourage nutritional supplementation with protein to help the healing process. She is interested in pursuing further wound closure with skin grafting. Patient would like to proceed with the skin graft. Followup 2 weeks.
== END 2017-06-19 23:59 ==
LOC: WC 09:00
PROVIDERS: Family Provider Family Medicine; PCP Family Medicine; Visit Provider Surgery
DX: S30.1XXA Contusion of abdominal wall, initial encounter (principal); Y83.9 Surgical procedure, unspecified as the cause of abnormal reaction of the patient, or of later complication, without mention of misadventure at the time of the procedure; Z86.14 Personal history of Methicillin resistant Staphylococcus aureus infection; I89.0 Lymphedema, not elsewhere classified; D63.8 Anemia in other chronic diseases classified elsewhere; N17.9 Acute kidney failure, unspecified; Z98.84 Bariatric surgery status
CPT/HCPCS: 11042; 11045; 97606; 99213; G0463

== ENCOUNTER 2017-07-06 16:24 | Emergency (ER) | payer MEDICAID, SELFPAY ==
[2017-07-06 16:25] VITALS: BP 165/108; PULSE 95; RESP 16; TEMP 36.6; O2SAT 100; BMI 32.2
--- NOTE | 2017-07-06 16:41 | ED.DCSUM_ITS ---
- ER Visit Summary Date of Service: 07/06/17 Chief Complaint: Flank pain History of Present Illness: The patient is a 32 F presents to the emergency department flank pain. 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 States her pain started last night rather suddenly. States waxes and wanes. She describes a sharp pain in her left flank. She denies any fevers or chills. She does admit to nausea or vomiting. She states she has also had some hematuria. Patient currently does not have an active urologist. She has not required any recent procedure for stone. She did have a CT scan 1 month ago which showed small stones. The patient is also currently following with Dr. Mendieta for postoperative wound care from skin removal after her gastric bypass. She was actually seen yesterday. She states she fell yesterday and is worried about her wound. She denies any bleeding or increased drainage. Physical Examination: Vital signs reviewed General: Well-nourished, well-developed Head: Normocephalic, atraumatic Eyes: Pupils equal and reactive, extraocular muscles intact Neck, supple, no lymphadenopathy Heart: Regular rate and rhythm Respiratory: No distress, clear bilaterally Abdomen: Soft, nontender, nondistended, no peritoneal signs dressing removed. Skin is clean, dry. There is some erythema at her old incision site. There is no active drainage. There is no dehiscence. Back: Nontender Extremities: Nontender, no edema, no cords Skin: Normal color no rash Neuro: Alert and oriented, no focal or lateralizing deficits Test Results: [] Emergency Department Course and Treatment: The patient presents with signs and symptoms of kidney stone. She has had multiple recent CTs. IV was established. Her urine did not show infection. There was scant blood. The patient was given multiple doses of analgesics and we are able to achieve comfort. Her nausea was controlled. She has prescription analgesics at home. She will continue aggressive hydration. The patient will follow up with urology. She is discharged home. Treatment Plan: [] Disposition: Discharge Impression: 1. Kidney stone This note was generated with [employer] software. It may contain incorrect words, spelling, and punctuation that were not noted in review of the chart prior to signing ED Disposition - Plan for ED Patient: Chief Complaint: Flank Pain Instructions: ED Stone Renal W Colic Prescriptions: Ondansetron [Zofran Odt] 4 mg PO Q8H PRN PRN #10 tab PRN Reason: Nausea Referrals: Bethel Jauregui III, MD [Primary Care Provider] -
[2017-07-06] MEDS: morphine 8 MG/ML Syringe IV (17:07)
[2017-07-06] MEDS: 0.9% Normal Saline 1,000 ML 250 ML IV (17:07)
[2017-07-06] MEDS: proMETHazine 25 MG/ML Syringe 6.25 MG IV (17:07)
[2017-07-06 17:14] LABS: Color, Urine Yellow (Yellow); Glucose, Dipstick Normal (Normal); Ketone-Dipstick Negative (Negative); Leukocyte Esterase-Dipstick 25 /ul (Negative); Nitrite-Dipstick Negative (Negative); Occult Blood-Urine 25 /ul (Negative); Protein-Dipstick 15 mg/dl (Negative); Urine Bilirubin Dipstick Negative (Negative); Urine Clarity Sl. Cloudy (Clear); Urine Urobilinogen 1 mg/dl (Normal)
[2017-07-06 17:23] LABS: Pregnancy, Serum, hCG Quali. NEGATIVE Negative (0-9 Nonpreg)
[2017-07-06 17:44] LABS: Mucous, Urine 1+ /hpf (<or=2+)
[2017-07-06 17:45] LABS: Bacteria 1+ /hpf (None Seen); White Blood Cells 0-5 SEEN /hpf (0-5)
[2017-07-06 17:46] LABS: Squamous Epithelial Cells - UA 5-10 SEEN /hpf (5-10)
[2017-07-06 17:47] LABS: Red Blood Cells-Urine 0-5 SEEN /hpf (0-5)
[2017-07-06] MEDS: Ondansetron 4 MG/2 ML Vial IV (17:55)
[2017-07-06] MEDS: HYDROmorphone 1 MG/ML Syringe 0.5 MG IV (17:55)
[2017-07-06] MEDS: fentaNYL 100 MCG/2 ML Ampul 50 MCG IV (18:44)
[2017-07-06 19:02] VITALS: BP 154/90; PULSE 76; RESP 16; O2SAT 100
== END 2017-07-06 19:03 | disposition home or self-care (01) ==
PROVIDERS: Emergency Provider Emergency Medicine; Family Provider Family Medicine; PCP Family Medicine
DX: N20.0 Calculus of kidney (principal); I10 Essential (primary) hypertension
CPT/HCPCS: 81001; 84703; 96361; 96374; 96375; 99283; J7030; A4216; J2405

== ENCOUNTER 2017-07-12 10:00 | Outpatient (RCR) | payer MEDICAID, SELFPAY ==
[2017-06-20 01:07] VITALS: PULSE 85; RESP 18; TEMP 37.1
[2017-06-21 08:20] VITALS: BP 166/84; PULSE 86; RESP 18; TEMP 36.3
--- NOTE | 2017-06-21 17:50 | PCM.WC.PN ---
Type of Wound Date of Service: 06/21/17 Chief Complaint: Nonhealing infected hematoma ulcer lower anterior abdominal wall and pubic area. History of Wound: Surgery 05/03/17 - Surgical preparation lower anterior abdominal wall and pubic area with incision and drainage and excisional debridement infected seroma/hematoma (250 cm2). Wound care - VAC. Operative culture - Staphylococcus aureus. She was discharged on Keflex and has finished them. Recent wound culture from 05/30/17 showed Morganella morganii and Staphylococcus aureus. Continue Levaquin. Prealbumin from 05/10/17 was 11.6. Encourage nutritional supplementation with protein to help the healing process. CT Pelvis from 04/30/17 showed a subcutaneous fluid collection most likely represents a postoperative seroma. Today she denies any fever. Her appetite is good. Progress of Wound: Slightly improved. - Physical Exam Vital Signs Temp Pulse Resp BP 97.3 F L 86 18 166/84 H 06/21/17 08:20 06/21/17 08:20 06/21/17 08:20 06/21/17 08:20 Wound Measurements and Assessment WC - Nurse 1 - General Ulcer Measurement Start: 06/21/17 08:20 Freq: Status: Active Protocol: Activity Type Activity Date Activity User E-Sign Co-Sign Detail Recorded Client Recorded Date Recorded By Document 06/21/17 08:20 [id number] 06/21/17 08:23 06/21/17 08:20 Wound Center Nurse 1 [Ulcer Assessment] #1 Lower Abdomen -Combined with other wound No -Current Size (cm) - Length 2.0 -Current Size (cm) - Width 11.5 -Current Size (cm) - Depth 2.0 -Total Square Cm 23.00 -Photo Taken No -Epithelialization Small 1-33% -Tunneling No -Undermining/Tunneling Yes -Undermining/Tunneling Starts (O' 5 clock) -Undermining/Tunneling Ends (O'clock) 8 -Maximum Distance (cm) 4.0 -Circular Undermining No -Classification - Thickness Full Thickness without Exposed Support Structure -Exudate Amt Large (67-100%) -Exudate Type Serosanguineous -Wound Margin Distinct, Outline Attached -Granulation Amt Large (67-100%) -Granulation Quality Red -Slough/Fibrin Yes -Necrosis Amt Small (1-33%) -Necrotic Tissue Type Adherent Slough -Structure Exposed Fascia Fat Layer Exposed -Texture (Catrachita-wound Skin Appearance) Localized Edema -Moisture (Catrachita-wound Skin Appearance No Abnormality ) -Color (Catrachita-wound Skin Appearance) Erythema -Temperature (Catrachita-wound Skin No Abnormality Appearance) (Pt Warm) -Tenderness on Palpation (Catrachita-wound No Skin Appearance) -Ulcer Cleansing hibiclens -Foul Odor after Cleansing No -Anesthetic Used 5% Lidocaine Gel [Edema Assessment] -Lower Limb Edema Present No WC - Nurse 2 - General Ulcer CM Notes Start: 06/21/17 08:20 Freq: Status: Active Protocol: Activity Type Activity Date Activity User E-Sign Co-Sign Detail Recorded Client Recorded Date Recorded By Document 06/21/17 08:45 [id number] 06/21/17 08:47 06/21/17 08:45 Wound Center Nurse 2 [Procedure/Treatment] #1 Lower Abdomen -Time 08:45 -Correct Patient Yes -Correct Side, Site, Position Yes -Correct Procedure Yes -Procedure Performed Yes -Type of Procedure Debridement -Clinical Debridement Subcutaneous -Post Debridement Size (cm) - Length 11.5 -Post Debridement Size (cm) - Width 2.1 -Post Debridement Size (cm) - Depth 0.5 -Total Square Cm 24.15 -Wound/Ulcer Outcome Not Healed -Ulcer Cleansing Rinsed/ Irrigated with Saline -Foul Odor after Cleansing No -Bioengineered Tissue No -Bleeding Controlled with Pressure -Treatment Response Procedure Tolerated Well [See Physician Procedure note for Specifics] Pain Scale: 0-10 Numeric [Pain] -Is Patient Pain Free? Yes Debridement Note Post-Debridement Measurements/Treatment - Nurse 2 - General Ulcer CM Notes Start: 06/21/17 08:20 Freq: Status: Active Protocol: Activity Type Activity Date Activity User E-Sign Co-Sign Detail Recorded Client Recorded Date Recorded By Document 06/21/17 08:45 [id number] 06/21/17 08:47 06/21/17 08:45 Wound Center Nurse 2 #1 Lower Abdomen -Time 08:45 -Correct Patient Yes -Correct Side, Site, Position Yes -Correct Procedure Yes -Procedure Performed Yes -Type of Procedure Debridement -Clinical Debridement Subcutaneous -Post Debridement Size (cm) - Length 11.5 -Post Debridement Size (cm) - Width 2.1 -Post Debridement Size (cm) - Depth 0.5 -Total Square Cm 24.15 -Wound/Ulcer Outcome Not Healed -Ulcer Cleansing Rinsed/ Irrigated with Saline -Foul Odor after Cleansing No -Bioengineered Tissue No -Bleeding Controlled with Pressure -Treatment Response Procedure Tolerated Well Pain Scale: 0-10 Numeric Is Patient Pain Free? Yes Wound debrided: #1 Lower anterior abdominal wall and pubic area. Laterality: Not Applicable Wound Grade/Stage: 2. Type of Debridement: Excisional debridement Anesthesia Used: 4% Lidocaine Solution Depth: Down to and including healthy tissue, in the subcutaneous layer Percentage of wound debrided: 100 Instrument Used: 7mm curette Tissue Removed: subcutaneous tissue. Severity: Fat Layer Exposed Amount of bleeding with debridement: Mild Bleeding Controlled with: Pressure Patient tolerated procedure well Assessment/Plan Assessment: 1. Nonhealing infected hematoma ulcer lower anterior abdominal wall and pubic area. 2. ERIKA (acute kidney injury), resolving. 3. Anemia of chronic disease, stable. 4. Lymphedema pubic area. 5. 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 6. History of MRSA. Plan: Continue the VAC to be changed three times per week at 150 mmHg continuous suction. She is doing ok at work. Her operative culture showed Staphylococcus aureus and has finished Keflex. She had a more recent culture on 05/30/17 which showed Morganella morganii and Staphylococcus aureus. Continue the Levaquin. Her Prealbumin was 11.6 on 05/10/17. Encourage nutritional supplementation with protein to help the healing process. She is interested in pursuing further wound closure with skin grafting. Patient would like to proceed with the skin graft. Since the ulcer is getting smaller, I told her that a skin graft at this point will not take care of her symptomatology as much as taking care of the lymphedema in the pubic area first. By doing debulking surgery, can then proceed with wound care with the VAC. After the wound has stabilized from the debulking surgery, then can proceed with operative debridement and skin grafting. Followup 2 weeks.
--- NOTE | 2017-07-05 23:17 | PCM.WC.PN ---
Type of Wound Date of Service: 07/05/17 Chief Complaint: Nonhealing infected hematoma ulcer lower anterior abdominal wall and pubic area. History of Wound: Surgery 05/03/17 - Surgical preparation lower anterior abdominal wall and pubic area with incision and drainage and excisional debridement infected seroma/hematoma (250 cm2). Wound care - VAC. Operative culture - Staphylococcus aureus. She was discharged on Keflex and has finished them. Recent wound culture from 05/30/17 showed Morganella morganii and Staphylococcus aureus. Continue Levaquin. Prealbumin from 05/10/17 was 11.6. Encourage nutritional supplementation with protein to help the healing process. CT Pelvis from 04/30/17 showed a subcutaneous fluid collection most likely represents a postoperative seroma. Today she denies any fever. Her appetite is good. Progress of Wound: Slightly improved. - Physical Exam Vital Signs Temp Pulse Resp BP 97.3 F L 86 18 166/84 H 06/21/17 08:20 06/21/17 08:20 06/21/17 08:20 06/21/17 08:20 Wound Measurements and Assessment WC - Nurse 1 - General Ulcer Measurement Start: 06/21/17 08:20 Freq: Status: Active Protocol: Activity Type Activity Date Activity User E-Sign Co-Sign Detail Recorded Client Recorded Date Recorded By Document 07/05/17 08:14 DV [id number] 07/05/17 08:30 DV 07/05/17 08:14 Wound Center Nurse 1 [Ulcer Assessment] #1 Lower Abdomen -Combined with other wound No -Current Size (cm) - Length 8.9 -Current Size (cm) - Width 1.6 -Current Size (cm) - Depth 0.5 -Total Square Cm 14.24 -Photo Taken Yes -Epithelialization Medium 34-66% -Tunneling No -Undermining/Tunneling No -Classification - Thickness Full Thickness without Exposed Support Structure -Exudate Amt Medium (34-66%) -Exudate Type Serosanguineous -Wound Margin Distinct, Outline Attached -Granulation Amt Large (67-100%) -Granulation Quality Red -Slough/Fibrin Yes -Necrosis Amt Small (1-33%) -Necrotic Tissue Type Adherent Slough -Structure Exposed N/A -Texture (Catrachita-wound Skin Appearance) Assessed Localized Edema -Moisture (Catrachita-wound Skin Appearance Assessed ) Weeping -Color (Catrachita-wound Skin Appearance) No Abnormality Assessed -Temperature (Catrachita-wound Skin No Abnormality Appearance) (Pt Warm) -Tenderness on Palpation (Catrachita-wound Yes Skin Appearance) -Ulcer Cleansing Wound Cleanser -Foul Odor after Cleansing Yes -Anesthetic Used 4% Lidocaine Solution - Nurse 2 - General Ulcer CM Notes Start: 06/21/17 08:20 Freq: Status: Active Protocol: Activity Type Activity Date Activity User E-Sign Co-Sign Detail Recorded Client Recorded Date Recorded By Document 07/05/17 08:50 [id number] 07/05/17 08:51 07/05/17 08:50 Wound Center Nurse 2 [Procedure/Treatment] -Time 08:50 -Correct Patient Yes -Correct Side, Site, Position Yes -Correct Procedure Yes -Procedure Performed Yes -Type of Procedure Debridement -Clinical Debridement Subcutaneous -Post Debridement Size (cm) - Length 9 -Post Debridement Size (cm) - Width 1.6 -Post Debridement Size (cm) - Depth 0.5 -Total Square Cm 14.4 -Wound/Ulcer Outcome Not Healed -Ulcer Cleansing Rinsed/ Irrigated with Saline -Foul Odor after Cleansing No -Bioengineered Tissue No -Bleeding Controlled with Pressure -Treatment Response Procedure Tolerated Well [See Physician Procedure note for Specifics] Pain Scale: 0-10 Numeric [Pain] -Is Patient Pain Free? Yes Debridement Note Post-Debridement Measurements/Treatment - Nurse 2 - General Ulcer CM Notes Start: 06/21/17 08:20 Freq: Status: Active Protocol: Activity Type Activity Date Activity User E-Sign Co-Sign Detail Recorded Client Recorded Date Recorded By Document 06/21/17 08:45 [id number] 06/21/17 08:47 Document 07/05/17 08:50 [id number] 07/05/17 08:51 06/21/17 07/05/17 08:45 08:50 Wound Center Nurse 2 #1 Lower Abdomen -Time 08:45 08:50 -Correct Patient Yes Yes -Correct Side, Site, Position Yes Yes -Correct Procedure Yes Yes -Procedure Performed Yes Yes -Type of Procedure Debridement Debridement -Clinical Debridement Subcutaneous Subcutaneous -Post Debridement Size (cm) - Length 11.5 9 -Post Debridement Size (cm) - Width 2.1 1.6 -Post Debridement Size (cm) - Depth 0.5 0.5 -Total Square Cm 24.15 14.4 -Wound/Ulcer Outcome Not Healed Not Healed -Ulcer Cleansing Rinsed/ Rinsed/ Irrigated with Irrigated with Saline Saline -Foul Odor after Cleansing No No -Bioengineered Tissue No No -Bleeding Controlled with Pressure Pressure -Treatment Response Procedure Procedure Tolerated Well Tolerated Well Pain Scale: 0-10 Numeric Is Patient Pain Free? Yes Yes Wound debrided: #1 Lower anterior abdominal wall and pubic area. Laterality: Not Applicable Wound Grade/Stage: 2. Type of Debridement: Excisional debridement Anesthesia Used: 4% Lidocaine Solution Depth: Down to and including healthy tissue, in the subcutaneous layer Percentage of wound debrided: 100 Instrument Used: 5mm curette Tissue Removed: subcutaneous tissue. Severity: Fat Layer Exposed Amount of bleeding with debridement: Mild Bleeding Controlled with: Pressure Patient tolerated procedure well Assessment/Plan Assessment: 1. Nonhealing infected hematoma ulcer lower anterior abdominal wall and pubic area. 2. ERIKA (acute kidney injury), resolving. 3. Anemia of chronic disease, stable. 4. Lymphedema pubic area. 5. 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 6. History of MRSA. Plan: Continue the VAC to be changed three times per week at 150 mmHg continuous suction. She is doing ok at work. Her operative culture showed Staphylococcus aureus and has finished Keflex. She had a more recent culture on 05/30/17 which showed Morganella morganii and Staphylococcus aureus. Continue the Levaquin. Her Prealbumin was 11.6 on 05/10/17. Encourage nutritional supplementation with protein to help the healing process. She is interested in pursuing further wound closure with skin grafting. Patient would like to proceed with the skin graft. Since the ulcer is getting smaller, I told her that a skin graft at this point will not take care of her symptomatology as much as taking care of the lymphedema in the pubic area first. By doing debulking surgery, can then proceed with wound care with the VAC. After the wound has stabilized from the debulking surgery, then can proceed with operative debridement and skin grafting. Followup 2 weeks.
[2017-07-12 09:45] VITALS: BP 163/93; PULSE 107; RESP 16; TEMP 37
--- NOTE | 2017-07-12 22:15 | PCM.WC.PN ---
Type of Wound Date of Service: 07/12/17 Chief Complaint: Nonhealing infected hematoma ulcer lower anterior abdominal wall and pubic area. History of Wound: Surgery 05/03/17 - Surgical preparation lower anterior abdominal wall and pubic area with incision and drainage and excisional debridement infected seroma/hematoma (250 cm2). Wound care - VAC. Operative culture - Staphylococcus aureus. She was discharged on Keflex and has finished them. Recent wound culture from 05/30/17 showed Morganella morganii and Staphylococcus aureus. Continue Levaquin. Prealbumin from 05/10/17 was 11.6. Encourage nutritional supplementation with protein to help the healing process. CT Pelvis from 04/30/17 showed a subcutaneous fluid collection most likely represents a postoperative seroma. Today she denies any fever. Her appetite is good. Progress of Wound: Slightly improved. - Physical Exam Vital Signs Temp Pulse Resp BP 98.6 F 107 H 16 163/93 H 07/12/17 09:45 07/12/17 09:45 07/12/17 09:45 07/12/17 09:45 Wound Measurements and Assessment WC - Nurse 1 - General Ulcer Measurement Start: 06/21/17 08:20 Freq: Status: Active Protocol: Activity Type Activity Date Activity User E-Sign Co-Sign Detail Recorded Client Recorded Date Recorded By Document 07/12/17 09:45 [facility] [id number] 07/12/17 09:58 [facility] 07/12/17 09:45 Wound Center Nurse 1 [Ulcer Assessment] #1 Lower Abdomen -Combined with other wound No -Current Size (cm) - Length 7.7 -Current Size (cm) - Width 2.6 -Current Size (cm) - Depth 0.1 -Total Square Cm 20.02 -Date of Last Picture (Recall this 07/12/17 field) -Photo Taken Yes -Epithelialization Small 1-33% -Tunneling Yes -Tunneling Position (O'clock) 6 -Tunneling Distance (cm) 1.3 -Undermining/Tunneling No -Circular Undermining No -Exudate Amt Large (67-100%) -Exudate Type Yellow/Green -Wound Margin Distinct, Outline Attached -Granulation Amt Large (67-100%) -Granulation Quality Red -Slough/Fibrin Yes -Necrosis Amt Small (1-33%) -Necrotic Tissue Type Adherent Slough -Structure Exposed N/A -Texture (Catrachita-wound Skin Appearance) Assessed Scarring -Moisture (Catrachita-wound Skin Appearance Assessed ) -Color (Catrachita-wound Skin Appearance) Assessed -Temperature (Catrachita-wound Skin No Abnormality Appearance) (Pt Warm) -Tenderness on Palpation (Catrachita-wound Yes Skin Appearance) -Ulcer Cleansing Wound Cleanser -Foul Odor after Cleansing Yes -Anesthetic Used 4% Lidocaine Solution - Nurse 2 - General Ulcer CM Notes Start: 06/21/17 08:20 Freq: Status: Active Protocol: Activity Type Activity Date Activity User E-Sign Co-Sign Detail Recorded Client Recorded Date Recorded By Document 07/12/17 10:19 [id number] 07/12/17 10:26 07/12/17 10:19 Wound Center Nurse 2 [Procedure/Treatment] -Correct Patient No -Correct Side, Site, Position No -Correct Procedure No -Procedure Performed No -Bleeding Controlled with NA [See Physician Procedure note for Specifics] Pain Scale: 0-10 Numeric [Pain] -Is Patient Pain Free? Yes Debridement Note Post-Debridement Measurements/Treatment - Nurse 2 - General Ulcer CM Notes Start: 06/21/17 08:20 Freq: Status: Active Protocol: Activity Type Activity Date Activity User E-Sign Co-Sign Detail Recorded Client Recorded Date Recorded By Document 06/21/17 08:45 [id number] 06/21/17 08:47 Document 07/05/17 08:50 [id number] 07/05/17 08:51 Document 07/12/17 10:19 [id number] 07/12/17 10:26 06/21/17 07/05/17 07/12/17 08:45 08:50 10:19 Wound Center Nurse 2 #1 Lower Abdomen -Time 08:45 08:50 -Correct Patient Yes Yes No -Correct Side, Site, Position Yes Yes No -Correct Procedure Yes Yes No -Procedure Performed Yes Yes No -Type of Procedure Debridement Debridement -Clinical Debridement Subcutaneous Subcutaneous -Post Debridement Size (cm) - Length 11.5 9 -Post Debridement Size (cm) - Width 2.1 1.6 -Post Debridement Size (cm) - Depth 0.5 0.5 -Total Square Cm 24.15 14.4 -Wound/Ulcer Outcome Not Healed Not Healed -Ulcer Cleansing Rinsed/ Rinsed/ Irrigated with Irrigated with Saline Saline -Foul Odor after Cleansing No No -Bioengineered Tissue No No -Bleeding Controlled with Pressure Pressure NA -Treatment Response Procedure Procedure Tolerated Well Tolerated Well Pain Scale: 0-10 Numeric Is Patient Pain Free? Yes Yes Yes Wound debrided: #1 Lower anterior abdominal wall and pubic area. Laterality: Not Applicable Wound Grade/Stage: 2. No debridement was completed today - surgery is being planned next week. Assessment/Plan Assessment: 1. Nonhealing infected hematoma ulcer lower anterior abdominal wall and pubic area. 2. ERIKA (acute kidney injury), resolving. 3. Anemia of chronic disease, stable. 4. Lymphedema pubic area. 5. 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 6. History of MRSA. Plan: Continue the VAC to be changed three times per week at 150 mmHg continuous suction. She is doing ok at work. Her operative culture showed Staphylococcus aureus and has finished Keflex. She had a more recent culture on 05/30/17 which showed Morganella morganii and Staphylococcus aureus. Continue the Levaquin. Her Prealbumin was 11.6 on 05/10/17. Encourage nutritional supplementation with protein to help the healing process. She is interested in pursuing further wound closure with skin grafting. Patient would like to proceed with the skin graft. Since the ulcer is getting smaller, I told her that a skin graft at this point will not take care of her symptomatology as much as taking care of the lymphedema in the pubic area first. By doing debulking surgery, can then proceed with wound care with the VAC. After the wound has stabilized from the debulking surgery, then can proceed with operative debridement and skin grafting. Followup 2 weeks.
--- NOTE | 2017-07-13 11:55 | PN.PCM_ITS ---
Type of Wound Date of Service: 07/12/17 Chief Complaint: Nonhealing infected hematoma ulcer lower anterior abdominal wall and pubic area. History of Wound: Surgery 05/03/17 - Surgical preparation lower anterior abdominal wall and pubic area with incision and drainage and excisional debridement infected seroma/hematoma (250 cm2). Wound care - VAC. Operative culture - Staphylococcus aureus. She was discharged on Keflex and has finished them. Recent wound culture from 05/30/17 showed Morganella morganii and Staphylococcus aureus. Continue Levaquin. Prealbumin from 05/10/17 was 11.6. Encourage nutritional supplementation with protein to help the healing process. CT Pelvis from 04/30/17 showed a subcutaneous fluid collection most likely represents a postoperative seroma. Today she denies any fever. Her appetite is good. Progress of Wound: Slightly improved. - Physical Exam Vital Signs Temp Pulse Resp BP 98.6 F 107 H 16 163/93 H 07/12/17 09:45 07/12/17 09:45 07/12/17 09:45 07/12/17 09:45 Wound Measurements and Assessment WC - Nurse 1 - General Ulcer Measurement Start: 06/21/17 08:20 Freq: Status: Active Protocol: Activity Type Activity Date Activity User E-Sign Co-Sign Detail Recorded Client Recorded Date Recorded By Document 07/12/17 09:45 [facility] [id number] 07/12/17 09:58 [facility] 07/12/17 09:45 Wound Center Nurse 1 [Ulcer Assessment] #1 Lower Abdomen -Combined with other wound No -Current Size (cm) - Length 7.7 -Current Size (cm) - Width 2.6 -Current Size (cm) - Depth 0.1 -Total Square Cm 20.02 -Date of Last Picture (Recall this 07/12/17 field) -Photo Taken Yes -Epithelialization Small 1-33% -Tunneling Yes -Tunneling Position (O'clock) 6 -Tunneling Distance (cm) 1.3 -Undermining/Tunneling No -Circular Undermining No -Exudate Amt Large (67-100%) -Exudate Type Yellow/Green -Wound Margin Distinct, Outline Attached -Granulation Amt Large (67-100%) -Granulation Quality Red -Slough/Fibrin Yes -Necrosis Amt Small (1-33%) -Necrotic Tissue Type Adherent Slough -Structure Exposed N/A -Texture (Catrachita-wound Skin Appearance) Assessed Scarring -Moisture (Catrachita-wound Skin Appearance Assessed ) -Color (Catrachita-wound Skin Appearance) Assessed -Temperature (Catrachita-wound Skin No Abnormality Appearance) (Pt Warm) -Tenderness on Palpation (Catrachita-wound Yes Skin Appearance) -Ulcer Cleansing Wound Cleanser -Foul Odor after Cleansing Yes -Anesthetic Used 4% Lidocaine Solution - Nurse 2 - General Ulcer CM Notes Start: 06/21/17 08:20 Freq: Status: Active Protocol: Activity Type Activity Date Activity User E-Sign Co-Sign Detail Recorded Client Recorded Date Recorded By Document 07/12/17 10:19 [id number] 07/12/17 10:26 07/12/17 10:19 Wound Center Nurse 2 [Procedure/Treatment] -Correct Patient No -Correct Side, Site, Position No -Correct Procedure No -Procedure Performed No -Bleeding Controlled with NA [See Physician Procedure note for Specifics] Pain Scale: 0-10 Numeric [Pain] -Is Patient Pain Free? Yes Debridement Note Post-Debridement Measurements/Treatment - Nurse 2 - General Ulcer CM Notes Start: 06/21/17 08:20 Freq: Status: Active Protocol: Activity Type Activity Date Activity User E-Sign Co-Sign Detail Recorded Client Recorded Date Recorded By Document 06/21/17 08:45 [id number] 06/21/17 08:47 Document 07/05/17 08:50 [id number] 07/05/17 08:51 Document 07/12/17 10:19 [id number] 07/12/17 10:26 06/21/17 07/05/17 07/12/17 08:45 08:50 10:19 Wound Center Nurse 2 #1 Lower Abdomen -Time 08:45 08:50 -Correct Patient Yes Yes No -Correct Side, Site, Position Yes Yes No -Correct Procedure Yes Yes No -Procedure Performed Yes Yes No -Type of Procedure Debridement Debridement -Clinical Debridement Subcutaneous Subcutaneous -Post Debridement Size (cm) - Length 11.5 9 -Post Debridement Size (cm) - Width 2.1 1.6 -Post Debridement Size (cm) - Depth 0.5 0.5 -Total Square Cm 24.15 14.4 -Wound/Ulcer Outcome Not Healed Not Healed -Ulcer Cleansing Rinsed/ Rinsed/ Irrigated with Irrigated with Saline Saline -Foul Odor after Cleansing No No -Bioengineered Tissue No No -Bleeding Controlled with Pressure Pressure NA -Treatment Response Procedure Procedure Tolerated Well Tolerated Well Pain Scale: 0-10 Numeric Is Patient Pain Free? Yes Yes Yes Wound debrided: #1 Lower anterior abdominal wall and pubic area. Laterality: Not Applicable Wound Grade/Stage: 2. No debridement was completed today - surgery is being planned next week. Assessment/Plan Assessment: 1. Nonhealing infected hematoma ulcer lower anterior abdominal wall and pubic area. 2. ERIKA (acute kidney injury), resolving. 3. Anemia of chronic disease, stable. 4. Lymphedema pubic area. 5. 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 6. History of MRSA. Plan: Continue the VAC to be changed three times per week at 150 mmHg continuous suction. She is doing ok at work. Her operative culture showed Staphylococcus aureus and has finished Keflex. She had a more recent culture on 05/30/17 which showed Morganella morganii and Staphylococcus aureus. Continue the Levaquin. Her Prealbumin was 11.6 on 05/10/17. Encourage nutritional supplementation with protein to help the healing process. She is interested in pursuing further wound closure with skin grafting. Patient would like to proceed with the skin graft. Since the ulcer is getting smaller, I told her that a skin graft at this point will not take care of her symptomatology as much as taking care of the lymphedema in the pubic area first. By doing debulking surgery, can then proceed with wound care with the VAC. After the wound has stabilized from the debulking surgery, then can proceed with operative debridement and skin grafting. Followup 2 weeks.
== END 2017-07-19 23:59 ==
LOC: WC 10:00
PROVIDERS: Family Provider Family Medicine; PCP Family Medicine; Visit Provider Surgery
DX: L98.492 Non-pressure chronic ulcer of skin of other sites with fat layer exposed (principal); L08.89 Other specified local infections of the skin and subcutaneous tissue; I48.0 Paroxysmal atrial fibrillation; Z86.14 Personal history of Methicillin resistant Staphylococcus aureus infection; N17.9 Acute kidney failure, unspecified; D63.8 Anemia in other chronic diseases classified elsewhere
CPT/HCPCS: 11042; 11045; 97605; 99213; G0463

== ENCOUNTER 2017-07-12 10:50 | Emergency (ER) | payer MEDICAID, SELFPAY ==
[2017-07-12 10:52] VITALS: BP 165/100; PULSE 92; RESP 16; TEMP 36.2; O2SAT 100; BMI 30.7
--- NOTE | 2017-07-12 11:06 | CT_ITS ---
STUDY: CT ABDOMEN AND PELVIS WITHOUT CONTRAST REASON FOR EXAM: Female, 32 years old. Lower abdominal wound with drainage. RADIATION DOSAGE (If Supplied By Facility): CTDIvol = ( 15.28 ) mGy, DLP = ( 847.32 ) mGycm TECHNIQUE: Transaxial images were obtained from the dome of the diaphragm to the symphysis pubis without oral contrast, and without intravenous contrast. Sagittal and coronal images were reconstructed. Individualized dose optimization techniques were used for this CT. COMPARISON: May 30, 2017. FINDINGS: The visualized lung bases are unremarkable. The visualized portions of the heart are within normal limits. Normal liver. There are surgical clips in the gallbladder fossa consistent with a prior cholecystectomy. Normal spleen. Normal pancreas. Normal bilateral adrenal glands. There are a few, tiny, nonobstructing intrarenal calculi. The largest is seen in the right kidney measuring approximately 2 mm in maximum dimension. There is no hydronephrosis. There is no ureteral calculi. There is no hydroureter. The patient is status post gastric bypass. There is no evident obstruction. Normal small intestine. Normal colon. The appendix is visualized and appears normal. Normal abdominal aorta. Normal inferior vena cava. Normal retroperitoneum. Normal urinary bladder. There is a prominent ventral lower abdomen/upper pelvic midline defect that communicates lower to a irregular marginated density containing air within the ventral upper pelvis seen best on sequence #2, image 172. There is no connection with deeper intrapelvic structures. Normal osseous structures. CT/Abdomen/Pelvis without Cont IMPRESSION: Status post cholecystectomy and gastric bypass. Bilateral nonobstructing nephrolithiasis. Phlegmon and scarring changes within the subcutaneous fat anterior to the pubic symphysis containing air. No evidence for well-defined drainable abscess at this time. No significant interval change. Electronically Signed: Foreign Castanon MD at 14:32 EDT , Service support ,
[2017-07-12] MEDS: 0.9% Normal Saline 1,000 ML 150 ML IV (11:10)
[2017-07-12 11:38] LABS: Absolute Lymphocyte Count 1.42 X10^3/ul (0.83-4.51); Absolute Neutrophil Count 2.3 X10^3/uL (2.0-7.7); Basophil# 0.05 X10^3/uL; Basophil% 1.1 % (0-1); Eosinophil# 0.23 X10^3/uL; Eosinophils% 5.1 % (0-5); Hematocrit 32.8 % (37-47); Hemoglobin 10.6 g/dl (12.0-15.0); Lymphocyte # 1.42 X10^3/ul (4.0); Lymphocyte % 31.6 % (19-41); Mean Corp Hgb Conc 32.3 g/gl (32-36); Mean Corpuscular Hgb 27.7 pg (27.0-32.0); Mean Corpuscular Volume 85.9 fL (81-99); Mean Platelet Vol. 10.8 fl (6.2-12.0); Monocyte# 0.47 X10^3/uL; Monocyte% 10.4 % (0-10); Neutrophil # 2.32 X10^3/uL (2.7-7.7); Neutrophil % 51.6 % (47-70); POSITIVE COUNT NO; POSITIVE DIFFERENTIAL NO; POSITIVE MORPHOLOGY NO; Platelet Count 396 K/mm3 (150-450); RBC Distribution Width CV 16.5 % (11.6-14.6); RBC Distribution Width SD 51.4 fl (35.1-43.9); Red Blood Count 3.82 M/mm3 (4.2-5.4); White Blood Count 4.5 K/mm3 (4.4-11.0)
[2017-07-12 11:49] LABS: Anion Gap 6 (5-15); BUN 16 mg/dL (7-18); BUN/Creat Ratio 23.2 RATIO (10-20); Chloride 107 mmol/L (98-107); Creatinine, Serum 0.69 mg/dL (0.55-1.02); EST Glomerular Filtration Rate 105 mL/min (>60); Est Glom Filt Rate - Afr Amer 127 mL/min (>60); Estimated Creatinine Clearance 110.59 ml/min; Glucose 81 mg/dL (74-106); Sodium Level 139 mmol/L (136-145)
[2017-07-12] MEDS: Ondansetron 4 MG/2 ML Vial IV (12:13)
[2017-07-12] MEDS: Morphine 4 MG/ML Syringe IV (12:14)
[2017-07-12 12:25] LABS: Pregnancy, Serum, hCG Quali. NEGATIVE Negative (0-9 Nonpreg)
[2017-07-12 13:19] LABS: Bacteria 0 SEEN /hpf (None Seen); Mucous, Urine 0 SEEN /hpf (<or=2+); Squamous Epithelial Cells - UA 0 SEEN /hpf (5-10); White Blood Cells 0 SEEN /hpf (0-5)
[2017-07-12 13:24] LABS: Color, Urine Red (Yellow); Glucose, Dipstick Normal (Normal); Ketone-Dipstick Negative (Negative); Leukocyte Esterase-Dipstick 25 /ul (Negative); Nitrite-Dipstick Negative (Negative); Occult Blood-Urine 250 /ul (Negative); Protein-Dipstick 100 mg/dl (Negative); Urine Bilirubin Dipstick Negative (Negative); Urine Clarity Turbid (Clear); Urine Urobilinogen Normal (Normal)
[2017-07-12 13:31] LABS: Red Blood Cells-Urine > 100 SEEN /hpf (0-5)
[2017-07-12] MEDS: proMETHazine 25 MG/ML Syringe 12.5 MG IV (13:57)
--- NOTE | 2017-07-12 14:40 | ED.VISSUMM ---
- ER Visit Summary Date of Service: 07/12/17 Chief Complaint: [Vaginal bleeding] History of Present Illness: The patient is a 32 F [presents to the emergency department with complaint of vaginal bleeding for the last 2 weeks. Patient states that she has a lower abdominal wound infection for which she has been currently treated with Levaquin. Up until 2 weeks ago she had a wound VAC on this wound and has been seeing the wound center and seeing Dr. Mendieta. Patient was seen by Dr. Mendieta and have the wound evaluated. Patient is scheduled to have repeat surgery with him in early July. Patient is concerned that her vaginal bleeding started at the same time that her wound VAC was taken off. Patient states normally her periods are regular. Patient does not believe she is as she is not sexually active. Patient denies any fevers. She has had some nausea. Patient denies urinary symptoms. Patient currently does not have an PRODUCT SCIENTIST that she follows up with.] Physical Examination: [HEENT-PERRLA, EOMI. Cranial nerves II through XII grossly intact. TMs clear. Mucous membranes moist. No adenopathy. Cardiovascular-regular rate and rhythm without murmur or ectopy Lungs-clear to auscultation, chest wall stable without crepitus or subcu emphysema Abdomen-normoactive bowel sounds, soft, nontender, no rebound or rigidity, no peritoneal signs. Patient has a incision/wound over the suprapubic region that is currently dressed but there is no evidence of erythema I did not remove the recently applied dressing given that her surgeon evaluated the wound today. Extremities-intact ?4, normal range of motion, normal pulses, atraumatic] Test Results: [CBC with differential obtained showed a white blood cell count of 4.5, hemoglobin 10.6, hematocrit 33, platelets 396. Chemistries were normal. Urinalysis showed greater than [address] scan of the abdomen and pelvis was obtained which showed patient to be status post cholecystectomy and gastric bypass patient had bilateral nonobstructing nephrolithiasis. Patient had phlegmon and scarring changes within the subcutaneous fat anterior to the pubic symphysis containing air no evidence for well-defined drainable abscess at this time no significant interval change from prior CT.] Emergency Department Course and Treatment: [Patient was given morphine and Zofran for discomfort in the department.] Treatment Plan: [Patient will be referred to PRODUCT SCIENTIST on-call for dysfunctional uterine bleeding and she is to continue to keep her appointments with her surgeon. Patient to continue with current antibiotic.] Disposition: [Discharged to home in stable condition.] Impression: [Dysfunctional uterine bleeding Wound infection-chronic] This note was generated with [employer] dictation software. It may contain incorrect words, spelling, and punctuation that were not noted in review of the chart prior to signing ED Disposition - Plan for ED Patient: Chief Complaint: Vag Bleeding Referrals: Bethel Jauregui III, MD [Primary Care Provider] -
--- NOTE | 2017-07-12 14:45 | ED.RN ---
1420-Report received, care of patient assumed for primary RN on break.
--- NOTE | 2017-07-12 14:46 | ED.DCSUM_ITS ---
- ER Visit Summary Date of Service: 07/12/17 Chief Complaint: [Vaginal bleeding] History of Present Illness: The patient is a 32 F [presents to the emergency department with complaint of vaginal bleeding for the last 2 weeks. Patient states that she has a lower abdominal wound infection for which she has been currently treated with Levaquin. Up until 2 weeks ago she had a wound VAC on this wound and has been seeing the wound center and seeing Dr. Mendieta. Patient was seen by Dr. Mendieta and have the wound evaluated. Patient is scheduled to have repeat surgery with him in early July. Patient is concerned that her vaginal bleeding started at the same time that her wound VAC was taken off. Patient states normally her periods are regular. Patient does not believe she is as she is not sexually active. Patient denies any fevers. She has had some nausea. Patient denies urinary symptoms. Patient currently does not have an DIAMOND DIE POLISHER that she follows up with.] Physical Examination: [HEENT-PERRLA, EOMI. Cranial nerves II through XII grossly intact. TMs clear. Mucous membranes moist. No adenopathy. Cardiovascular-regular rate and rhythm without murmur or ectopy Lungs-clear to auscultation, chest wall stable without crepitus or subcu emphysema Abdomen-normoactive bowel sounds, soft, nontender, no rebound or rigidity, no peritoneal signs. Patient has a incision/wound over the suprapubic region that is currently dressed but there is no evidence of erythema I did not remove the recently applied dressing given that her surgeon evaluated the wound today. Extremities-intact ?4, normal range of motion, normal pulses, atraumatic] Test Results: [CBC with differential obtained showed a white blood cell count of 4.5, hemoglobin 10.6, hematocrit 33, platelets 396. Chemistries were normal. Urinalysis showed greater than [address] scan of the abdomen and pelvis was obtained which showed patient to be status post cholecystectomy and gastric bypass patient had bilateral nonobstructing nephrolithiasis. Patient had phlegmon and scarring changes within the subcutaneous fat anterior to the pubic symphysis containing air no evidence for well-defined drainable abscess at this time no significant interval change from prior CT.] Emergency Department Course and Treatment: [Patient was given morphine and Zofran for discomfort in the department.] Treatment Plan: [Patient will be referred to [facility]ER on-call for dysfunctional uterine bleeding and she is to continue to keep her appointments with her surgeon. Patient to continue with current antibiotic.] Disposition: [Discharged to home in stable condition.] Impression: [Dysfunctional uterine bleeding Wound infection-chronic] This note was generated with [employer] dictation software. It may contain incorrect words, spelling, and punctuation that were not noted in review of the chart prior to signing ED Disposition - Plan for ED Patient: Chief Complaint: Vag Bleeding Referrals: Bethel Jaureugi III, MD [Primary Care Provider] -
--- NOTE | 2017-07-12 14:47 | ED.DEP ---
ED Disposition - Plan for ED Patient: Chief Complaint: Vag Bleeding Instructions: ED Bleed Irregular Vaginal, ED Wound Infec After Surgery Referrals: Bethel Jauregui III, MD [Primary Care Provider] - 3-5 Days Dayana Anthony MD [STAFF PHYSICIAN] - 3-5 Days
[2017-07-12 14:55] VITALS: BP 141/78; PULSE 67; RESP 16; O2SAT 100
--- NOTE | 2017-07-12 15:03 | ED.RN ---
Verbal and written d/c instructions given. All questions answered. Skin w/d. ABCs intact. Gait steady out of department.
== END 2017-07-12 15:02 | disposition home or self-care (01) ==
PROVIDERS: Emergency Provider Emergency Medicine; Family Provider Family Medicine; PCP Family Medicine
DX: N93.8 Other specified abnormal uterine and vaginal bleeding (principal); I10 Essential (primary) hypertension; N20.0 Calculus of kidney; Z90.49 Acquired absence of other specified parts of digestive tract; Z98.84 Bariatric surgery status; T81.4XXA Infection following a procedure, initial encounter; Y84.9 Medical procedure, unspecified as the cause of abnormal reaction of the patient, or of later complication, without mention of misadventure at the time of the procedure; Y92.9 Unspecified place or not applicable
CPT/HCPCS: 74176; 80048; 81001; 84703; 85025; 99213; 99285; J7030; A4216; G0463; J2405

== ENCOUNTER 2017-07-20 06:23 | Day surgery (SDC) | payer MEDICAID, SELFPAY ==
--- NOTE | 2017-07-19 21:11 | PCM.HP.BLA ---
History and Physical Date of Admission: 07/20/17 HISTORY OF PRESENT ILLNESS 32-year-old woman presents with a painful nonhealing ulcer lower anterior abdominal wall and pubic area after developing an infected hematoma that resulted in surgery on 05/03/17 where she underwent surgical preparation lower anterior abdominal wall and pubic area with incision and drainage and excisional debridement infected seroma/hematoma (250 cm2). Her initial surgery was on 04/20/17 where she underwent excision 8 cm painful soft tissue mass pubic area with 20 cm complex closure. Operative culture showed Staphylococcus aureus and was treated with antibiotics. After discharge, she had another culture done on 05/30/17 which showed Staphylococcus aureus and Morganella morganii and was treated with antibiotics. Her initial infected wound was treated with the VAC and then changed to Silver dressings daily because of too much pain with the VAC. During the wound care, the patient developed persistent swelling in her mons pubis area resulting in a lymphedema-type picture. It was recommended to the patient to excise this lymphedema tissue in her genitalia involving the mons pubis with a partial vulvectomy to help debulk the area which should help with her persistent pain. Today the patient denies any fever. She has persistent pain in the nonhealing ulcer mons pubis area. 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 Nonhealing infected hematoma ulcer lower anterior abdominal wall and pubic area Anemia of chronic disease. History of MRSA. PAST SURGICAL HISTORY 2 Kidney stones removed gallbladder removed Gastric bypass - 2015 Laparoscopic Og-en-Y procedure at [facility] Abdominal panniculectomy - 09/17/16 Incision and drainage postop hematoma abdominal wall - 09/17/16 Incision and drainage infected postop abdominal wall seroma - 10/20/16 Left thyroid removed Excision 8 cm painful soft tissue mass pubic area with 20 cm complex closure - 04/20/17 Surgical preparation lower anterior abdominal wall and pubic area with incision and drainage and excisional debridement infected seroma/hematoma (250 cm2) - 05/03/17 FAMILY HISTORY Mother (biol.) - Has Family History of Anxiety Mother (biol.) - Has Family History of Bleeding Disease Mother (biol.) - Has Family History of Depression Mother (biol.) - Has Family History of Hypertension Mother (biol.) - Has Family History of High Cholesterol Mother (biol.) - Has Family History of Other Cancer Father (biol.) - Has Family History of Diabetes Father (biol.) - Has Family History of Hypertension PGF - Has Family History of Colon Cancer PGF - Has Family History of Diabetes PGF - Has Family History of Heart Disease SOCIAL HISTORY Alcohol Use - no Patient has never smoked. MEDICATIONS NEXPLANON IMPLANT (ETONOGESTREL IMPL) subdermal FLOMAX 0.4 MG ORAL CAPSULE (TAMSULOSIN HCL) Two tablets by mouth twice daily LISINOPRIL 40 MG ORAL TABLET (LISINOPRIL) One tablet by mouth twice daily NORCO 5-325 MG ORAL TABLET (HYDROCODONE-ACETAMINOPHEN) as needed VITAMIN D3 94630 UNIT ORAL TABLET (CHOLECALCIFEROL) 1 tab once a week ELAVIL TABLET (AMITRIPTYLINE HCL TABS) One tablet by mouth daily ALLERGIES NSAIDS (Critical) * GABAPENTIN (Critical) TORADOL (Critical) * TRAMADOL (Critical) REVIEW OF SYSTEMS General-denies fever. Has some fatigue. Has had major weight loss since her gastric bypass procedure done a year and a half ago. She lost 180 pounds. Ear nose and throat-denies nasal congestion. Denies sore throat. Eyes-denies glaucoma. Denies cataracts. Endocrine-denies excessive thirst or urination. Skin-has an abdominal wall skin crease intertrigo for which she uses powders for relief. She has lymphedema genitalia involving mons pubis. Has nonhealing ulcer in the mons pubis area. Musculoskeletal-denies joint pain, joint stiffness, weakness of muscles and joints, neck pain, and arthritis. Neurologic-has headaches. Cardiovascular-denies chest pain. Has some fatigue. Denies shortness of breath with exertion. Psychiatric-denies anxiety. Denies depression. Respiratory-denies shortness of breath. Denies chronic cough. Gastrointestinal-denies nausea, vomiting, diarrhea, constipation. Denies abdominal bloating. Hematologic-denies abnormal bruising or bleeding. Genitourinary-denies hematuria and urinary frequency. PHYSICAL EXAMINATION General-well developed, well nourished, in no acute distress. HEENT-pupils equal round and reactive to light. Extraocular muscles intact. Throat is clear. Neck-supple and nontender. No cervical adenopathy. Lungs-clear to auscultation. Heart-regular rate and rhythm. Abdomen-soft and nondistended. There is abdominal wall scarring from previous abdominal panniculectomy. No abdominal masses noted. No ventral hernias noted. In the pubic area is a large soft tissue mass measures 8 cm. It is mobile. Slight tenderness to palpation. No evidence of infection. No ulceration. No bleeding. Extremities-full range of motion. No axillary adenopathy. No inguinal adenopathy. Radial pulses and dorsalis pedis pulses are palpable. Neuro-cranial nerves II through XII grossly intact. ASSESSMENT 1. Nonhealing infected hematoma ulcer lower anterior abdominal wall and mons pubis area. 2. 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 3. Lymphedema genitalia involving mons pubis. PLAN Recommend excision of this painful lymphedema area genitalia involving mons pubis with a partial vulvectomy. The wound will be left open and wound care started with the VAC. Tissue will be sent to Pathology for analysis to rule out carcinoma and to Microbiology for culture. A positive culture may necessitate antibiotic modification. Post discharge, she will followup at the Wound Center. If there is a plateau in the healing process, then delayed closure with skin grafting can be done. Patient is aware that a large wound will be present postop but that the removal of the lymphedematous tissue should help the pain in the area due to the weight of the tissue from its dependency. soft tissue mass in her pubic area. Surgery will be done under general anesthesia with a surgical observation overnight stay in the hospital. The patient was informed of the risks and complications of the procedure including alternatives to surgery. These were discussed with the patient personally. The patient voices understanding and wishes to proceed. Some of the risks and complications were included in a form from the [employer].
[2017-07-20] VITALS (12 sets, daily range): BP systolic 129–168; BP diastolic 75–94; PULSE 88–106; RESP 16–18; TEMP 36.4–37.1; O2SAT 97–100; BMI 32.4
[2017-07-20] MEDS: levoFLOXacin IV 500 MG/100 ML BAG 100 MG IV (07:20)
[2017-07-20 07:24] LABS: Internal QC Validated? YES +Cl - CLEAR BKGD; Pregnancy, Urine Negative Negative
--- NOTE | 2017-07-20 08:00 | MASS_PTH ---
PATIENT: ISIDORO PENG LOC: [facility] [place] U#:[id number] AGE/SX: 32/F ROOM: RE07/20/[address]: Dr. Gigi Mendieta MD : [id number] BED: DIS: 07/21/2017 SPEC #: [id number] RECD: 07/20/17 10:01 STATUS: RAFAELA CARMELA #: [id number] ANGELA: 07/20/17 08:[address]: Gigi Mendieta DEPT: SURGICAL PATHOLOGY RECD BY: Comfort Herrera ENTERED: 07/20/17 10:14 SP TYPE: Mass OTHR DR: Dr. Bethel Jauregui III, MD Tissues: Skin of pubic area Procedures: Surgery Specimen Level III HEADER OPERATION: Surgical preparation mons pubis of vulva with excision PRE-OP DIAGNOSIS: Eight cm painful soft tissue mass pubic area, recent excessive weight loss after gastric bypass procedure, abdominal wall skin crease intertrigo TISSUE SUBMITTED: Lymphedema genitalia, nonhealing ulcer pubic area MICROSCOPIC DIAGNOSIS Nonhealing ulcer pubic area and lymphedema: Pieces of skin with underlying tissue with focal ulceration, acute and chronic inflammation, fat necrosis and fibrosis. MORENA:lucinda 07/21/17 MICROSCOPIC DESCRIPTION Slides are reviewed. GROSS DESCRIPTION Received in fixative is one container labeled with the patient's name and designated lymphedema nonhealing ulcer pubic area. The specimen consists of a piece of motley-white skin with underlying tissue measuring 19 x 17 x 6 cm. Multiple hairs are noted on the surface. Also received are four variable size pieces of motley-yellow adipose tissue measuring in aggregate 9 x 7 x 3 cm. One of the smaller pieces also shows a piece of skin. A focal area of ulceration is noted. Sections do not reveal any mass lesion. Baby Stroller Rental Clerk sections are submitted in four cassettes as follows: 1 & 2 ? smaller pieces of tissue, 3 & 4 ? ulcerated area, largest piece of tissue. / MORENA:lucinda 07/20/17 TC:2 CPT: 02261
--- NOTE | 2017-07-20 10:27 | OP.PN_ITS ---
Immediate Post-Op Note Date of Procedure: 07/20/17 Primary Surgeon/Physician: Gigi Mendieta supervisor bindery: Ean Fraga. Pre-Operative Diagnosis: 1. Nonhealing infected hematoma ulcer lower anterior abdominal wall and mons pubis area. 2. Lymphedema genitalia involving mons pubis. 3. 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 Post-Operative Diagnosis: Same. Surgery/Procedure Performed:: Surgical preparation vulva involving mons pubis with excision painful infected ulcer and excision associated painful lymphedema with partial vulvectomy (120 cm2). Description of Surgical Findings:: 32-year-old woman presents with a painful nonhealing ulcer lower anterior abdominal wall and pubic area after developing an infected hematoma that resulted in surgery on 05/03/17 where she underwent surgical preparation lower anterior abdominal wall and pubic area with incision and drainage and excisional debridement infected seroma/hematoma (250 cm2). Her initial surgery was on 04/20/17 where she underwent excision 8 cm painful soft tissue mass pubic area with 20 cm complex closure. Operative culture showed Staphylococcus aureus and was treated with antibiotics. After discharge, she had another culture done on 05/30/17 which showed Staphylococcus aureus and Morganella morganii and was treated with antibiotics. Her initial infected wound was treated with the VAC and then changed to Silver dressings daily because of too much pain with the VAC. During the wound care, the patient developed persistent swelling in her mons pubis area resulting in a lymphedema-type picture. It was recommended to the patient to excise this lymphedema tissue in her genitalia involving the mons pubis with a partial vulvectomy to help debulk the area which should help with her persistent pain. Today the patient denies any fever. She has persistent pain in the nonhealing ulcer mons pubis area. Today the patient underwent surgical preparation vulva involving mons pubis with excision painful infected ulcer and excision associated painful lymphedema with partial vulvectomy (120 cm2). Size of defect vulva involving mons pubis - 15 x 8 x 2 cm. Estimated Blood Loss: 100 ml. Specimen's removed: 1. Nonhealing ulcer mons pubis and lymphedema tissue vulva involving mons pubis to Pathology and Microbiology. 2. Mons pubis swab for MRSA Wound DNA by PCR. Drains: None. Type of Anesthesia:: General - Admit VTE Documentation VTE Present on Admission: No VTE Mechan Device Prophylaxis: SCD's VTE Pharm Prophylaxis ordered?: No
--- NOTE | 2017-07-20 10:56 | NURSING ---
Notified Christina, wound RN, that pt requests to talk with her to coordinate visit with home care nurse tomorrow.
[2017-07-20] MEDS: oxyCODONE 5 MG Tablet 10 MG PO ×3 (11:50→20:22)
[2017-07-20] MEDS: Lactated Ringers 1,000 ML 60 ML IV (11:51)
[2017-07-20] MEDS: HYDROmorphone 1 MG/ML Syringe IV ×3 (13:32→21:48)
[2017-07-20 13:43] LABS: M R Staph aureus DNA By PCR Negative (Negative); Probe Check PASS; Specimen Processing Control PASS; Staph aureus DNA By PCR NEGATIVE (Negative)
--- NOTE | 2017-07-20 17:14 | NURSING ---
Nurse enters room to find patient sitting on toilet with wound packing on the floor. Patient assisted back to bed and ABD applied to pubis wound. Secured with Mefix tape. Pt. tolerates well. Nurse instructs pt. not to ambulate in hallway until wound vac is placed on 07/21; okay to ambulate in room only. She verbalizes understanding.
--- NOTE | 2017-07-20 23:48 | PCM.OPRPT ---
Report of Operation Date of Procedure: 07/20/17 Pre-Operative Diagnosis: 1. Nonhealing infected hematoma ulcer lower anterior abdominal wall and mons pubis area. 2. Lymphedema genitalia involving mons pubis. 3. 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 Post-Operative Diagnosis: Same. Surgery/Procedure Performed:: Surgical preparation vulva involving mons pubis with excision painful infected ulcer and excision associated painful lymphedema with partial vulvectomy (120 cm2). Description of Surgical Findings:: 32-year-old woman presents with a painful nonhealing ulcer lower anterior abdominal wall and pubic area after developing an infected hematoma that resulted in surgery on 05/03/17 where she underwent surgical preparation lower anterior abdominal wall and pubic area with incision and drainage and excisional debridement infected seroma/hematoma (250 cm2). Her initial surgery was on 04/20/17 where she underwent excision 8 cm painful soft tissue mass pubic area with 20 cm complex closure. Operative culture showed Staphylococcus aureus and was treated with antibiotics. After discharge, she had another culture done on 05/30/17 which showed Staphylococcus aureus and Morganella morganii and was treated with antibiotics. Her initial infected wound was treated with the VAC and then changed to Silver dressings daily because of too much pain with the VAC. During the wound care, the patient developed persistent swelling in her mons pubis area resulting in a lymphedema-type picture. It was recommended to the patient to excise this lymphedema tissue in her genitalia involving the mons pubis with a partial vulvectomy to help debulk the area which should help with her persistent pain. Today the patient denies any fever. She has persistent pain in the nonhealing ulcer mons pubis area. Today the patient underwent surgical preparation vulva involving mons pubis with excision painful infected ulcer and excision associated painful lymphedema with partial vulvectomy (120 cm2). Size of defect vulva involving mons pubis - 15 x 8 x 2 cm. cheese processor: Ean Fraga. Type of Anesthesia:: General Specimen's removed: 1. Nonhealing ulcer mons pubis and lymphedema tissue vulva involving mons pubis to Pathology and Microbiology. 2. Mons pubis swab for MRSA Wound DNA by PCR. Drains: None. Estimated Blood Loss (mL): 100 ml. Description of Procedure: The patient was taken to OR in supine position and was placed under general anesthesia. Her lower anterior abdominal wall, medial thigh, and vulval area were prepped and draped in the usual fashion. Using xylocaine with epinephrine, the ulcer and the area of lymphedema on her genitalia were infiltrated. After waiting 5 minutes for the anesthetic to take effect, I proceeded with surgical preparation vulva involving mons pubis with excision painful infected ulcer and excision associated painful lymphedema with partial vulvectomy. Excision was carried down to the underlying fascia and inferiorly to the labial tissue. Tissue was sent to Pathology for analysis to rule out carcinoma as well as to Microbiology for culture. A positive culture may necessitate antibiotic modification. A mons pubis swab for MRSA wound DNA by PCR was also done because of her history of MRSA. The large resultant wound was irrigated with saline. Hemostasis obtained with electrocautery. The inferior skin edge by the labial area was flapping around and I felt I could take down this edge of tissue to stabilize the tissue around the labial area. This was done with 2-0 Vicryl figure of eight interrupted sutures. There was a small bulge on the right in the genitocrural area that was also excised and sent with the other tissue. This small wound was then closed in multiple areas after hemostasis was obtained with electrocautery. The deep dermis and subcutaneous tissue was closed with 2-0 Vicryl figure of eight interrupted sutures. The skin was approximated with 3-0 Prolene simple running suture. Antibiotic ointment was placed on the suture line. The size of the defect of the vulval area involving the mons pubis was 15 x 8 x 2 cm or 120 cm2. The wound was dressed with Mepitel nonadherent dressing followed by Kerlix gauze and Betadine followed by a dry Kerlix gauze. Patient tolerated the procedure well and was sent to PACU in satisfactory condition. She will be admitted for a surgical observation overnight stay in the hospital. I anticipate she will be tolerating po analgesia tomorrow which will allow her to be discharged home. She will [facility]up at [facility] in a couple of weeks. She will continue antibiotics until the cultures are available. She will be sent home initially with Levaquin. Grafts/Implants Used: None. - Complications None. - Admit VTE Documentation VTE Present on Admission: No VTE Mechan Device Prophylaxis: SCD's VTE Pharm Prophylaxis ordered?: No Code Visit Surgery Charges CPT - 72637 ICD-10 - I89.0, N76.2, L03.319, L98.492, R63.4 37903 L98.492, N76.2, L03.319, I89.0, R63.4 29153 L98.492, N76.2, L03.319, I89.0, R63.4
[2017-07-21] MEDS: oxyCODONE 5 MG Tablet 10 MG PO ×3 (01:27→12:56)
[2017-07-21 02:00] VITALS: BP 157/96; PULSE 70; RESP 17; TEMP 36.7; O2SAT 100
[2017-07-21] MEDS: HYDROmorphone 1 MG/ML Syringe IV ×3 (04:39→13:45)
[2017-07-21] MEDS: Lactated Ringers 1,000 ML 60 ML IV (04:40)
[2017-07-21 06:03] LABS: Hematocrit 28.2 % (37-47); Mean Corp Hgb Conc 31.9 g/gl (32-36); Mean Corpuscular Hgb 27.6 pg (27.0-32.0); Mean Corpuscular Volume 86.5 fL (81-99); Mean Platelet Vol. 10.8 fl (6.2-12.0); Platelet Count 309 K/mm3 (150-450); RBC Distribution Width CV 15.3 % (11.6-14.6); RBC Distribution Width SD 47.1 fl (35.1-43.9); Red Blood Count 3.26 M/mm3 (4.2-5.4); White Blood Count 9.5 K/mm3 (4.4-11.0)
[2017-07-21] MEDS: levoFLOXacin IV 500 MG/100 ML BAG 100 MG IV (06:07)
[2017-07-21 06:10] LABS: Scan Indicated on CBC? Y/N NO
[2017-07-21 06:25] LABS: Anion Gap 7 (5-15); BUN 10 mg/dL (7-18); BUN/Creat Ratio 16.6 RATIO (10-20); Calcium,Total 8.3 mg/dL (8.5-10.1); Chloride 106 mmol/L (98-107); EST Glomerular Filtration Rate 123 mL/min (>60); Est Glom Filt Rate - Afr Amer 148 mL/min (>60); Estimated Creatinine Clearance 127.18 ml/min; Glucose 150 mg/dL (74-106); Potassium 3.9 mmol/L (3.5-5.1); Prealbumin 25.9 mg/dL (20.0-40.0); Sodium Level 139 mmol/L (136-145)
[2017-07-21 07:41] VITALS: BP 143/88; PULSE 79; RESP 18; TEMP 37.2; O2SAT 100
--- NOTE | 2017-07-21 08:17 | NURSING ---
PT C/O R SIDED PAIN/CRAMPING - SHE STATES ITS THE SAME FEELING SHE HAS FELT IN THE PAST WHEN SHE HAS HAD A KIDNEY STONE. DR PAGE NOTIFIED. NO NEW ORDERS - JUST TO REMIND PT TO DRINK PLENTY OF ORAL FLUIDS.
[2017-07-21] MEDS: 0.9% NaCl Peripheral Flush Adult/Peds IV ×2 (09:36→13:45)
[2017-07-21 12:52] VITALS: BP 134/78; PULSE 87; RESP 18; TEMP 36.9; O2SAT 100
--- NOTE | 2017-07-21 13:39 | PN.SURG_ITS ---
Subjective: Postop #1 VAC applied today. Patient tolerated it reasonably well. She is anxious to go home. - Physical Exam General: Alert, Oriented x3 HEENT: PERRLA, EOMI Neck: Supple Lungs: Clear to auscultation Cardiovascular: Regular rate, Regular Rhythm Abdomen: Soft, Non-Distended Skin: Ulcer/ Wound - Vulval wound involving the mons pubis is stable. No bleeding seen. VAC applied without difficulty. Lymphatic: - - no inguinal adenopathy. Neurological: Cranial nerves II-XII grossly intact Psych/Mental Status: Normal Affect, Appropriate Vital Signs Temp Pulse Resp BP Pulse Ox 98.5 F 87 18 134/78 H 100 07/21/17 12:52 07/21/17 12:52 07/21/17 12:52 07/21/17 12:52 07/21/17 12:52 Oxygen Delivery Method Room Air Weight: 200 lb 13.458 oz Body Mass Index (BMI) 32.4 Intake and Output for Last 24 Hours 07/19/17 07/20/17 07/21/17 23:59 23:59 23:59 Intake Total 2001 2279 / 2279 Output Total 1400 / 1400 650 / 650 Balance 602 / 602 1629 / 1629 Microbiology Past 72 Hours 07/20/17 Unknown Gram Stain - Final Tissue - Groin Wound Culture - Preliminary No growth-Final to follow Laboratory Tests Past 24 Hrs 07/20/17 07/21/17 07/21/17 Unknown 05:34 05:34 WBC 9.5 RBC 3.26 L Hgb 9.0 L Hct 28.2 L MCV 86.5 MCH 27.6 MCHC 31.9 L RDW 15.3 H RDW Differential 47.1 H Plt Count 309 MPV 10.8 Sodium 139 Potassium 3.9 Chloride 106 Carbon Dioxide 26.0 Anion Gap 7 BUN 10 Creatinine 0.60 Estim Creat Clear Calc 127.18 Est GFR (MDRD) Af Amer 148 Est GFR (MDRD) Non-Af 123 BUN/Creatinine Ratio 16.6 Glucose 150 H Calcium 8.3 L Prealbumin 25.9 S.aureus Protein A PCR NEGATIVE MRSA (PCR) Negative Medical Necessity - Tobacco Use Smoking Status: Never smoker Assessment/Plan 1. Nonhealing infected hematoma ulcer lower anterior abdominal wall and mons pubis area. 2. Lymphedema genitalia involving mons pubis. 3. 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 2. s/p surgical preparation vulva involving mons pubis with excision painful infected ulcer and excision associated painful lymphedema with partial vulvectomy (120 cm2). VAC applied today without difficulty. To be changed three times per week at 150 mmHg continuous suction. Operative culture is pending. Will discharge on Levaquin until cultures are available. Antibiotic modification may be necessary. Prealbumin was 25.9. Encourage nutritional supplementation with protein to help the healing process. Wrote scripts for [place] for pain, 10mg (30 tabs) and for Valium for spasm (30 tabs). Discharge home today. Followup [facility] in 2 weeks on 08/02/17.
--- NOTE | 2017-07-21 13:44 | PCM.DC ---
You will use the following diet at home:: No restrictions, Other - encourage nutritional supplementation with protein to help the healing process. Discharge Activity: May not drive while taking narcotic pain medications., May Shower - on the days the vac is changed., - - no heavy lifting. minimize standing. Return to work on:: 07/28/17 - tentative. May shower in (days): 2 - may shower on the days the vac is changed. May resume sexual activity in: No Restrictions Weight Bearing Status: Weight bearing as tolerated Lifting Restrictions: 20 lbs. Call your doctor if your incision/area has: Continuous Slow Oozing, Sudden Increased Bleeding, Increased Pain/ Swelling, Increased Redness, Foul Smelling Discharge, Swelling at the incision site Call your doctor if you observe: Fever of 101 or Higher, Coldness, Increased Pain, Shortness of breath, Chest pain, Calf discomfort, Uncontrolled pain Suture Line Care: - - vac changes three times per week at 150 mmHg continuous suction. Change Dressing in (Days):: 2 - vac changes three times per week. Cleanse incision/area with: Soap & Water - may cleanse the wound with soap and water at the time of the vac change., - - may shower on the days the vac is changed. Additional Dressing/Incision Instructions:: Home Health to assist with the vac changes three times per week at 150 mmHg continuous suction. may cleanse the wound with soap and water at the time of the vac change. Allergies/Adverse Reactions: Allergies methocarbamol Allergy (Verified 07/14/17 15:06) Chest tightness gabapentin Adverse Reaction (Verified 07/14/17 15:06) MADE ME WALK SIDEWAYS ketorolac tromethamine [From Toradol] Adverse Reaction (Verified 07/14/17 15:06) Upset Stomach NSAIDS (Non-Steroidal Anti-Inflamma Adverse Reaction (Verified 07/14/17 15:06) gastric bipass not supposed to take tramadol Adverse Reaction (Verified 07/14/17 15:06) Upset Stomach Medications to take at Discharge Amitriptyline HCl [Elavil] 50 mg PO QHS PRN 04/30/17 Amlodipine Besylate [Norvasc] 10 mg PO DAILY 04/30/17 Ergocalciferol [Vitamin D] 50,000 unit PO QWEEK 04/30/17 Etonogestrel [Nexplanon] 68 mg SQ UD 04/30/17 Potassium Chloride [K-Dur] 10 meq PO BID 04/30/17 Tamsulosin HCl [Flomax] 0.4 mg PO DAILY PRN 04/30/17 Iron Polysaccharide Complex [Ferrex 150] 150 mg PO DAILYCM cap 05/10/17 Lisinopril [Zestril] 40 mg PO BID 05/30/17 Ondansetron [Zofran Odt] 4 mg PO Q8H PRN PRN #20 tablet 06/01/17 Cyanocobalamin [Vitamin B12] 1,000 mcg IM Q30D 07/06/17 proMETHazine tablet [Phenergan tablet] 25 mg PO Q8H PRN PRN 07/06/17 Diazepam [Valium] 5 mg PO 4X/DAY PRN PRN #30 tab 07/21/17 Hydrocodone/Acetaminophen [Elba 10-325 Tablet] 1 ea PO 4X/DAY PRN PRN 7 Days #30 tab 07/21/17 Levofloxacin [Levaquin] 500 mg PO DAILY #10 tab 07/21/17 The following prescriptions were given: Diazepam [Valium] 5 mg PO 4X/DAY PRN PRN #30 tab PRN Reason: Spasms Hydrocodone/Acetaminophen [Elba 10-325 Tablet] 1 ea PO 4X/DAY PRN PRN 7 Days #30 tab PRN Reason: Pain Levofloxacin [Levaquin] 500 mg PO DAILY #10 tab Primary Care Physician: Bethel Jauregui III, MD [Primary Care Provider] - Please Follow Up With: Gigi Mendieta MD - call [phone] for appt time. When: wednesday08/02/17 at [facility]. Proposed Discharge Date: 07/21/17
--- NOTE | 2017-07-21 13:48 | DCINST_ITS ---
You will use the following diet at home:: No restrictions, Other - encourage nutritional supplementation with protein to help the healing process. Discharge Activity: May not drive while taking narcotic pain medications., May Shower - on the days the vac is changed., - - no heavy lifting. minimize standing. Return to work on:: 07/28/17 - tentative. May shower in (days): 2 - may shower on the days the vac is changed. May resume sexual activity in: No Restrictions Weight Bearing Status: Weight bearing as tolerated Lifting Restrictions: 20 lbs. Call your doctor if your incision/area has: Continuous Slow Oozing, Sudden Increased Bleeding, Increased Pain/ Swelling, Increased Redness, Foul Smelling Discharge, Swelling at the incision site Call your doctor if you observe: Fever of 101 or Higher, Coldness, Increased Pain, Shortness of breath, Chest pain, Calf discomfort, Uncontrolled pain Suture Line Care: - - vac changes three times per week at 150 mmHg continuous suction. Change Dressing in (Days):: 2 - vac changes three times per week. Cleanse incision/area with: Soap & Water - may cleanse the wound with soap and water at the time of the vac change., - - may shower on the days the vac is changed. Additional Dressing/Incision Instructions:: Home Health to assist with the vac changes three times per week at 150 mmHg continuous suction. may cleanse the wound with soap and water at the time of the vac change. Allergies/Adverse Reactions: Allergies methocarbamol Allergy (Verified 07/14/17 15:06) Chest tightness gabapentin Adverse Reaction (Verified 07/14/17 15:06) MADE ME WALK SIDEWAYS ketorolac tromethamine [From Toradol] Adverse Reaction (Verified 07/14/17 15:06) Upset Stomach NSAIDS (Non-Steroidal Anti-Inflamma Adverse Reaction (Verified 07/14/17 15:06) gastric bipass not supposed to take tramadol Adverse Reaction (Verified 07/14/17 15:06) Upset Stomach Medications to take at Discharge Amitriptyline HCl [Elavil] 50 mg PO QHS PRN 04/30/17 Amlodipine Besylate [Norvasc] 10 mg PO DAILY 04/30/17 Ergocalciferol [Vitamin D] 50,000 unit PO QWEEK 04/30/17 Etonogestrel [Nexplanon] 68 mg SQ UD 04/30/17 Potassium Chloride [K-Dur] 10 meq PO BID 04/30/17 Tamsulosin HCl [Flomax] 0.4 mg PO DAILY PRN 04/30/17 Iron Polysaccharide Complex [Ferrex 150] 150 mg PO DAILYCM cap 05/10/17 Lisinopril [Zestril] 40 mg PO BID 05/30/17 Ondansetron [Zofran Odt] 4 mg PO Q8H PRN PRN #20 tablet 06/01/17 Cyanocobalamin [Vitamin B12] 1,000 mcg IM Q30D 07/06/17 proMETHazine tablet [Phenergan tablet] 25 mg PO Q8H PRN PRN 07/06/17 Diazepam [Valium] 5 mg PO 4X/DAY PRN PRN #30 tab 07/21/17 Hydrocodone/Acetaminophen [[place]elson 10-325 Tablet] 1 ea PO 4X/DAY PRN PRN 7 Days # 30 tab 07/21/17 Levofloxacin [Levaquin] 500 mg PO DAILY #10 tab 07/21/17 The following prescriptions were given: Diazepam [Valium] 5 mg PO 4X/DAY PRN PRN #30 tab PRN Reason: Spasms Hydrocodone/Acetaminophen [Nelson 10-325 Tablet] 1 ea PO 4X/DAY PRN PRN 7 Days # 30 tab PRN Reason: Pain Levofloxacin [Levaquin] 500 mg PO DAILY #10 tab Primary Care Physician: Bethel Jauregui III, MD [Primary Care Provider] - Please Follow Up With: Gigi Mendieta MD - call [phone] for appt time. When: wednesday08/02/17 at [facility]. Proposed Discharge Date: 07/21/17
--- NOTE | 2017-07-21 13:49 | PCM.WORK.EX ---
Work/School Excuse Work/School Excuse for:: Patient Please excuse this person from:: Work From: 07/20/17 through: 07/28/17 - patient may return to work on 07/28/17 and may work 8 hours per day and no more than 30 hours per week. Minimize standing and patient may sit as needed. Lifting restriction of 20 lbs. Restrictions: Other - patient may return to work on 07/28/17 and may work 8 hours per day and no more than 30 hours per week. Minimize standing and patient may sit as needed. Lifting restriction of 20 lbs.
[2017-07-21 14:22] VITALS: BP 134/78; PULSE 87; RESP 18; TEMP 36.9; O2SAT 100
== END 2017-07-21 14:22 | disposition home or self-care (01) ==
LOC: SDC 06:24 → AC 06:25 → MS3 07-21 08:10
PROVIDERS: Family Provider Family Medicine; PCP Family Medicine; Visit Provider Surgery
PROC: (CPT 906; principal; 2017-07-20 07:45)
DX: I89.0 Lymphedema, not elsewhere classified (principal); N76.6 Ulceration of vulva; R63.4 Abnormal weight loss; N76.2 Acute vulvitis; L03.319 Cellulitis of trunk, unspecified; L98.492 Non-pressure chronic ulcer of skin of other sites with fat layer exposed; Z98.84 Bariatric surgery status; Z86.14 Personal history of Methicillin resistant Staphylococcus aureus infection
CPT/HCPCS: 00906; 15004; 15005; 56630; 36415; 80048; 81025; 84134; 85027; 87070; 87075; 87077; 87102; 87186; 87205; 87206; 87640; 88304; 88305; 97802; J7120; A4216; J2405

== ENCOUNTER 2017-07-28 15:11 | Emergency (ER) | payer MEDICAID, SELFPAY ==
[2017-07-28 15:13] VITALS: BP 147/98; PULSE 111; RESP 16; TEMP 37.3; O2SAT 98; BMI 32.3
--- NOTE | 2017-07-28 15:38 | EKG12_ITS ---
Test Reason : WOUND CHECK Blood Pressure : / mmHG Vent. Rate : 104 BPM Atrial Rate : 104 BPM P-R Int : 166 ms QRS Dur : 086 ms QT Int : 356 ms P-R-T Axes : 050 035 004 degrees QTc Int : 468 ms Sinus tachycardia Otherwise normal ECG Confirmed by STEPHANE GUZMAN MD ([id number]), assistant editor CHE EVANS ([id number]) on 07/30/2017 2:13:08 PM Referred By: EB Confirmed By:STEPHANE GUZMAN MD
--- NOTE | 2017-07-28 15:43 | ED.DCSUM_ITS ---
- ER Visit Summary Date of Service: 07/28/17 Chief Complaint: Surgical wound evaluation History of Present Illness: The patient is a 32 F who is 7 days postop from surgery on her mons pubis who presents for concern for surgical site infection. Patient had the wound VAC changed today by her home health nurse, and they noted some odd appearing grayish black tissue and a very foul odor. There is been copious amount of purulent fluid collected by the wound VAC prior to replacement this afternoon. Patient is complaining of associated urgency and frequency. She has had a fever for the last 2 days. She is taking p.o. Dilaudid for pain. Pain is worse with movement. Medical history of kidney stones and gastric bypass. Patient is currently on Levaquin. Physical Examination: Vital signs: afebrile, hemodynamically stable, no hypoxia on room air General: well nourished, well developed, in no distress, appears uncomfortable Skin: warm, dry, no rash, no pallor HEENT: normocephalic and atraumatic; PERRL, EOMI, moist mucous membranes Cardiovascular: Tachycardic rate and rhythm without murmurs, no peripheral edema , 2+ pulses all distal extremities Respiratory: No increased work of breathing, lungs are clear to auscultation bilaterally, no rales, rhonchi or wheezing Abdominal: Abdomen is soft, tender with normoactive bowel sounds, wound VAC in place over the mons pubis : Large symmetric edematous labia, no fluctuance MSK: Moves all extremities, no deformities, normal strength Neuro: Awake and alert, oriented ?4. No facial droop, sensation and motor function intact and symmetric Test Results: Abnormal Lab Results 07/28/17 07/28/17 07/28/17 16:25 16:25 16:25 WBC 7.1 RBC 3.73 L Hgb 9.9 L Hct 31.3 L MCV 83.9 MCH 26.5 L MCHC 31.6 L RDW 15.4 H RDW Differential 46.3 H Plt Count 347 MPV 10.5 Immature Gran % (Auto) 0.100 Neut % (Auto) 63.1 Lymph % (Auto) 21.2 [place] % (Auto) 11.6 H Eos % (Auto) 3.4 Baso % (Auto) 0.6 Absolute Neuts (auto) 4.5 Absolute Lymphs (auto) 1.50 Total Counted Not Reportable PT 13.0 INR 1.0 APTT 31.3 Sodium 138 Potassium 3.7 Chloride 103 Carbon Dioxide 30.0 Anion Gap 5 BUN 17 Creatinine 0.66 Estim Creat Clear Calc 115.62 Est GFR (MDRD) Af Amer 135 Est GFR (MDRD) Non-Af 112 BUN/Creatinine Ratio 26.0 H Glucose 84 Lactic Acid Calcium 8.8 Total Bilirubin 0.20 AST 33 ALT 112 H Alkaline Phosphatase 148 H Total Protein 7.1 Albumin 3.4 Globulin 3.7 Albumin/Globulin Ratio 0.9 Urine Color Urine Clarity Urine pH Ur Specific [place] Urine Protein Urine Glucose (UA) Urine Ketones Urine Occult Blood Urine Nitrite Urine Bilirubin Urine Urobilinogen Ur Leukocyte Esterase Urine RBC Urine WBC Ur Squamous Epith Cells Urine Bacteria Urine Mucus 07/28/17 07/28/17 16:48 16:56 WBC RBC Hgb Hct MCV MCH MCHC RDW RDW Differential Plt Count MPV Immature Gran % (Auto) Neut % (Auto) Lymph % (Auto) [place] % (Auto) Eos % (Auto) Baso % (Auto) Absolute Neuts (auto) Absolute Lymphs (auto) Total Counted PT INR APTT Sodium Potassium Chloride Carbon Dioxide Anion Gap BUN Creatinine Estim Creat Clear Calc Est GFR (MDRD) Af Amer Est GFR (MDRD) Non-Af BUN/Creatinine Ratio Glucose Lactic Acid 0.5 Calcium Total Bilirubin AST ALT Alkaline Phosphatase Total Protein Albumin Globulin Albumin/Globulin Ratio Urine Color Yellow Urine Clarity Clear Urine pH 6.0 Ur Specific [place] 1.025 Urine Protein Negative Urine Glucose (UA) Normal Urine Ketones Negative Urine Occult Blood Negative Urine Nitrite Negative Urine Bilirubin Negative Urine Urobilinogen Normal Ur Leukocyte Esterase Negative Urine RBC 0 SEEN Urine WBC 0 SEEN Ur Squamous Epith Cells 0-5 SEEN Urine Bacteria 0 SEEN Urine Mucus 0 SEEN Clinical Impression(s) from Imaging Studies Renal Ultrasound 07/28/17 16:12 IMPRESSION: Stable right renal stone. No hydronephrosis. Electronically Signed: Soto Dickerson MD at 18:30 EDT , Service support , Emergency Department Course and Treatment: Patient presents with concern for surgical site infection. Patient does have a wound VAC in place with an odor noted in the room. Patient was discussed with Dr. Mendieta who stated concerns were for possible UTI, kidney stone or pain from the surgery itself. He recommended placing a Adhikari catheter. Adhikari catheter was placed and 400 cc of urine were returned. Urinalysis showed no hematuria or infection. Ultrasound of the kidney showed no ureterolithiasis or hydronephrosis that would be concerning for ureteral colic as the source of patient's pain. Patient had no leukocytosis. Lactate was normal. Patient was given IV fluids and multiple doses of pain medication. The wound VAC was taken down replaced with wet-to- dry Kerlix dressings per Dr. Mendieta's instructions, and the underlying wound looked like it was healing appropriately, with granulation tissue at the places where patient was concerned for infection. No significant odor was noted once the wound VAC was removed. Wet-to-dry dressing was placed. There is no indication that patient has a wound infection that would require admission for IV antibiotics. Patient will continue her pain medications at home. She strongly requested not going home with a Adhikari catheter, and we discussed the risks and benefits of this since 1 of her main concerns was not being able to urinate. Patient will return if she has any further issues, and the Adhikari catheter was removed at patient request. Patient has home health coming tomorrow and they will help her with her wound VAC replacement. She will keep her appointment with Dr. Mendieta on Wednesday. Discharged home. Treatment Plan: [] Disposition: [] Impression: Surgical wound evaluation, surgical wound pain, difficulty urinating This note was generated with [employer] dictation software. It may contain incorrect words, spelling, and punctuation that were not noted in review of the chart prior to signing ED Disposition - Plan for ED Patient: Disposition: Home or Assisted Living Chief Complaint: Wound Check Instructions: ED Wound Check Post Op No Infec Referrals: Bethel Jauregui III, MD [Primary Care Provider] - Gigi Mendieta MD [STAFF PHYSICIAN] - Keep Tamanna appointment Additional Instructions: Please use wet-to-dry dressings at home until you can get a wound VAC replacement on the wound. Continue your pain medications and antibiotics as you were prescribed. Keep your follow-up appointment with Dr. Mendieta as scheduled. If you find you are unable to urinate for several hours, please return to emergency department for Adhikari catheter replacement. If you have any worsening of your condition or any new concerning symptoms, please return immediately to the emergency department for another evaluation.
--- NOTE | 2017-07-28 16:12 | US_ITS ---
STUDY: RENAL ULTRASOUND - COMPLETE REASON FOR EXAM: Female, 32 years old. Renal stone. TECHNIQUE: Ultrasound evaluation of the kidneys was performed with real-time and static diaz-scale imaging. COMPARISON: Ultrasound May 05, 2017. CT July 12, 2017 FINDINGS: RIGHT KIDNEY: Normal location of the right kidney, which is normal in size. The right kidney measures 11.0 cm. There is a normal cortex of the right kidney. The renal cortex measures 1.5 cm. There is no right renal mass or cyst. There is 0.5 cm echogenic focus at the upper pole consistent with stone. There is no right hydronephrosis. DISTAL RIGHT URETER: There is non-visualization of the distal right ureter. There is no demonstrated right ureterovesical junction calculus. There is no demonstrated right ureteral jet. LEFT KIDNEY: Normal location of the left kidney, which is normal in size. The left kidney measures 12.3 cm. There is a normal cortex of the left kidney. The renal cortex measures 1.9 cm. There is no left renal mass or cyst. There are no left renal calculi. There is no left hydronephrosis. DISTAL LEFT URETER: There is non-visualization of the distal left ureter. There is no demonstrated left ureterovesical junction calculus. There is no demonstrated left ureteral jet. BLADDER: Bladder is not visualized due to Adhikari catheter. US/Kidney and Bladder IMPRESSION: Stable right renal stone. No hydronephrosis. Electronically Signed: Soto Dickerson MD at 18:30 EDT , Service support ,
[2017-07-28] MEDS: 0.9% Normal Saline 1,000 ML 999 ML IV (16:29)
[2017-07-28] MEDS: Ondansetron 4 MG/2 ML Vial IV (16:30)
[2017-07-28] MEDS: Morphine 4 MG/ML Syringe IV (16:30)
[2017-07-28 16:37] VITALS: BP 134/87; PULSE 97; RESP 13; O2SAT 94
[2017-07-28 16:50] LABS: Absolute Neutrophil Count 4.5 X10^3/uL (2.0-7.7); Basophil# 0.04 X10^3/uL; Basophil% 0.6 % (0-1); Eosinophil# 0.24 X10^3/uL; Eosinophils% 3.4 % (0-5); Hematocrit 31.3 % (37-47); Hemoglobin 9.9 g/dl (12.0-15.0); Lymphocyte % 21.2 % (19-41); Mean Corp Hgb Conc 31.6 g/gl (32-36); Mean Corpuscular Hgb 26.5 pg (27.0-32.0); Mean Corpuscular Volume 83.9 fL (81-99); Mean Platelet Vol. 10.5 fl (6.2-12.0); Monocyte# 0.82 X10^3/uL; Monocyte% 11.6 % (0-10); Neutrophil # 4.48 X10^3/uL (2.7-7.7); Neutrophil % 63.1 % (47-70); Platelet Count 347 K/mm3 (150-450); RBC Distribution Width CV 15.4 % (11.6-14.6); RBC Distribution Width SD 46.3 fl (35.1-43.9); Red Blood Count 3.73 M/mm3 (4.2-5.4); White Blood Count 7.1 K/mm3 (4.4-11.0)
[2017-07-28 16:55] LABS: Bacteria 0 SEEN /hpf (None Seen); Mucous, Urine 0 SEEN /hpf (<or=2+); Red Blood Cells-Urine 0 SEEN /hpf (0-5); White Blood Cells 0 SEEN /hpf (0-5)
[2017-07-28 16:55] LABS: POSITIVE COUNT NO; POSITIVE DIFFERENTIAL NO; POSITIVE MORPHOLOGY NO
[2017-07-28 17:01] VITALS: BP 139/77; PULSE 98; RESP 12; O2SAT 96; O2SAT 97
[2017-07-28 17:01] LABS: Color, Urine Yellow (Yellow); Glucose, Dipstick Normal (Normal); Ketone-Dipstick Negative (Negative); Leukocyte Esterase-Dipstick Negative /ul (Negative); Nitrite-Dipstick Negative (Negative); Occult Blood-Urine Negative /ul (Negative); Protein-Dipstick Negative (Negative); Specific Gravity, Urine 1.025 (1.002-1.030); Urine Bilirubin Dipstick Negative (Negative); Urine Clarity Clear (Clear); Urine Urobilinogen Normal (Normal)
[2017-07-28 17:03] LABS: Partial Thromboplast Time 31.3 Seconds (24.1-36.2)
[2017-07-28 17:04] LABS: ALB/GLOB Ratio 0.9 RATIO (0.9-2.4); AST(SGOT) 33 U/L (15-37); Alanine Aminotransfer ALT/SGPT 112 U/L (13-56); Albumin, Serum 3.4 g/dL (3.2-5.0); Alkaline Phosphatase 148 U/L (45-117); Anion Gap 5 (5-15); BUN 17 mg/dL (7-18); Calcium,Total 8.8 mg/dL (8.5-10.1); Chloride 103 mmol/L (98-107); Creatinine, Serum 0.66 mg/dL (0.55-1.02); EST Glomerular Filtration Rate 112 mL/min (>60); Est Glom Filt Rate - Afr Amer 135 mL/min (>60); Estimated Creatinine Clearance 115.62 ml/min; Globulin 3.7 g/dL (2.2-4.2); Glucose 84 mg/dL (74-106); Potassium 3.7 mmol/L (3.5-5.1); Protein, Total 7.1 g/dL (6.4-8.2); Sodium Level 138 mmol/L (136-145)
[2017-07-28 17:07] VITALS: TEMP 36.8
[2017-07-28] MEDS: morphine 8 MG/ML Syringe IV (17:13)
[2017-07-28 17:15] LABS: Squamous Epithelial Cells - UA 0-5 SEEN /hpf (5-10)
[2017-07-28 17:34] LABS: Lactic Acid 0.5 mmol/L (0.4-2.0)
[2017-07-28 18:14] VITALS: BP 138/77; PULSE 97; RESP 18
--- NOTE | 2017-07-28 18:40 | ED.DEP ---
ED Disposition - Plan for ED Patient: Disposition: Home or Assisted Living Chief Complaint: Wound Check Instructions: ED Wound Check Post Op No Infec Referrals: Bethel Jauregui III, MD [Primary Care Provider] - Gigi Mendieta MD [STAFF PHYSICIAN] - Keep Tamanna appointment Additional Instructions: Please use wet-to-dry dressings at home until you can get a wound VAC replacement on the wound. Continue your pain medications and antibiotics as you were prescribed. Keep your follow-up appointment with Dr. Mendieta as scheduled. If you find you are unable to urinate for several hours, please return to emergency department for Adhikari catheter replacement. If you have any worsening of your condition or any new concerning symptoms, please return immediately to the emergency department for another evaluation.
[2017-07-28 18:41] VITALS: BP 138/77; PULSE 99; RESP 14; O2SAT 98
[2017-07-28] MEDS: fentaNYL 100 MCG/2 ML Ampul IV (18:43)
== END 2017-07-28 19:06 | disposition home or self-care (01) ==
PROVIDERS: Emergency Provider Emergency Medicine; Family Provider Family Medicine; PCP Family Medicine
DX: G89.18 Other acute postprocedural pain (principal); R30.0 Dysuria; R10.9 Unspecified abdominal pain; R50.9 Fever, unspecified; Z87.442 Personal history of urinary calculi; Z98.84 Bariatric surgery status
CPT/HCPCS: 51702; 76770; 80053; 81001; 83605; 85025; 85610; 85730; 87040; 87086; 93005; 99285; J7030; A4216; J2405

== ENCOUNTER 2017-08-06 18:19 | Emergency (ER) | payer MEDICAID, SELFPAY ==
[2017-08-06 18:20] VITALS: BP 179/112; PULSE 102; RESP 18; TEMP 37.2; O2SAT 100; BMI 33.4
[2017-08-06 18:38] VITALS: BP 207/111; PULSE 93; RESP 16; O2SAT 100
--- NOTE | 2017-08-06 18:42 | ED.VISSUMM ---
- ER Visit Summary Date of Service: 08/06/17 Chief Complaint: Retaining urine History of Present Illness: The patient is a 32 F with a history of gastric bypass and panniculectomy with a wound infection and a wound VAC in place. Patient has significant swelling to the area and has had a lot of difficulty urinating. She was seen previously and had a Adhikari catheter placed. She did not want to leave it in and went home without a catheter. Her symptoms have recurred. She has been retaining urine today. She saw her surgeon, Dr. Mendieta as an outpatient who advised replacing the catheter, but the patient declined. She is requesting one now. Patient also had an episode today where she felt lightheaded secondary to pain. She briefly fell forward and caught herself. She felt some pain at the wound VAC site and noticed a small amount of blood in her underwear. She denies any hematuria or vaginal bleeding. She is not currently having bleeding. She is on Levaquin. Physical Examination: Blood pressure 207/111. Otherwise vitals normal and afebrile. Wound VAC is in place. No sign of bleeding or redness. Wound VAC is intact and clean. She has diffuse swelling of her bilateral labia majora. Otherwise skin appears normal. Exam was chaperoned by the RN. Test Results: We will check basic labs, urine, and urine culture. Adhikari catheter was placed with a leg bag. Emergency Department Course and Treatment: Catheter placed. Will check basic labs and a urine.. Hemoglobin and platelets stable, 9.4 and 630 respectively. Metabolic panel normal. Urinalysis normal. Patient had a Adhikari catheter placed with a leg bag and is tolerating this well. Repeat blood pressure 136/70. Patient will follow up with her PCP tomorrow. Treatment Plan: As above Disposition: Discharge Impression: 1. Urinary retention 2. Hypertension This note was generated with [employer] software. It may contain incorrect words, spelling, and punctuation that were not noted in review of the chart prior to signing ED Disposition - Plan for ED Patient: Chief Complaint: Complaint Referrals: Bethel Jauregui III, MD [Primary Care Provider] -
[2017-08-06 19:27] LABS: Red Blood Cells-Urine 0 SEEN /hpf (0-5); Squamous Epithelial Cells - UA 0 SEEN /hpf (5-10); White Blood Cells 0 SEEN /hpf (0-5)
[2017-08-06 19:46] LABS: Absolute Lymphocyte Count 1.83 X10^3/ul (0.83-4.51); Absolute Neutrophil Count 6.5 X10^3/uL (2.0-7.7); Basophil# 0.04 X10^3/uL; Basophil% 0.4 % (0-1); Eosinophil# 0.16 X10^3/uL; Eosinophils% 1.8 % (0-5); Hematocrit 29.9 % (37-47); Hemoglobin 9.4 g/dl (12.0-15.0); Lymphocyte # 1.83 X10^3/ul (4.0); Mean Corp Hgb Conc 31.4 g/gl (32-36); Mean Corpuscular Hgb 25.5 pg (27.0-32.0); Mean Platelet Vol. 9.8 fl (6.2-12.0); Monocyte# 0.55 X10^3/uL; Neutrophil # 6.54 X10^3/uL (2.7-7.7); Neutrophil % 71.7 % (47-70); POSITIVE COUNT NO; POSITIVE DIFFERENTIAL NO; POSITIVE MORPHOLOGY NO; Platelet Count 630 K/mm3 (150-450); RBC Distribution Width CV 15.3 % (11.6-14.6); RBC Distribution Width SD 45.1 fl (35.1-43.9); Red Blood Count 3.69 M/mm3 (4.2-5.4); White Blood Count 9.1 K/mm3 (4.4-11.0)
[2017-08-06 19:58] LABS: Anion Gap 8 (5-15); BUN 11 mg/dL (7-18); BUN/Creat Ratio 19.5 RATIO (10-20); Calcium,Total 8.6 mg/dL (8.5-10.1); Chloride 107 mmol/L (98-107); Creatinine, Serum 0.56 mg/dL (0.55-1.02); EST Glomerular Filtration Rate 133 mL/min (>60); Est Glom Filt Rate - Afr Amer 160 mL/min (>60); Estimated Creatinine Clearance 136.26 ml/min; Glucose 85 mg/dL (74-106); Potassium 4.1 mmol/L (3.5-5.1); Sodium Level 142 mmol/L (136-145)
[2017-08-06 20:44] LABS: Color, Urine Yellow (Yellow); Glucose, Dipstick Normal (Normal); Ketone-Dipstick Negative (Negative); Leukocyte Esterase-Dipstick Negative /ul (Negative); Nitrite-Dipstick Negative (Negative); Occult Blood-Urine Negative /ul (Negative); Protein-Dipstick Negative (Negative); Specific Gravity, Urine 1.015 (1.002-1.030); Urine Bilirubin Dipstick Negative (Negative); Urine Clarity Clear (Clear); Urine Urobilinogen Normal (Normal); Urine pH 6.5 (5.0 - 8.0)
[2017-08-06 21:16] LABS: Bacteria RARE /hpf (None Seen); Mucous, Urine RARE /hpf (<or=2+)
[2017-08-06 22:00] VITALS: BP 136/70; PULSE 88; RESP 18; O2SAT 99
--- NOTE | 2017-08-06 22:01 | ED.RN ---
PATIENT TOLD ANOTHER NURSE THAT SHE WAS HAVING DIFFICULTY MOVING LEGS D/T SHARP PAINS FROM HER WOUND VAC IN ABDOMEN. PAIN LEVEL 8/[address] CASTELLANO WAS JUST MADE AWARE BY THIS NURSE.
[2017-08-06] MEDS: Morphine 4 MG/ML Syringe IV (22:09)
--- NOTE | 2017-08-06 22:16 | ED.DEP ---
ED Disposition - Plan for ED Patient: Chief Complaint: Complaint Instructions: ED Catheter Care Adhikari Referrals: Bethel Jauregui III, MD [Primary Care Provider] -
[2017-08-06 22:28] VITALS: BP 136/74; PULSE 18; O2SAT 99
== END 2017-08-06 22:30 | disposition home or self-care (01) ==
LOC: ED 18:54
PROVIDERS: Emergency Provider Emergency Medicine; Family Provider Family Medicine; PCP Family Medicine
DX: R33.9 Retention of urine, unspecified (principal); I10 Essential (primary) hypertension; Z98.84 Bariatric surgery status; Z87.442 Personal history of urinary calculi
CPT/HCPCS: 51702; 80048; 81001; 85025; 87086; 99285; A4216

== ENCOUNTER 2017-08-17 14:30 | Outpatient (RCR) | payer MEDICAID, SELFPAY ==
[2017-07-20 00:52] VITALS: PULSE 107; RESP 16; TEMP 37
[2017-08-02 09:58] VITALS: BP 159/85; PULSE 97; RESP 20; TEMP 36.6
--- NOTE | 2017-08-02 23:48 | PCM.WC.PN ---
Type of Wound Date of Service: 08/02/17 Chief Complaint: Nonhealing infected hematoma ulcer lower anterior abdominal wall and pubic area. History of Wound: Surgery 05/03/17 - Surgical preparation lower anterior abdominal wall and pubic area with incision and drainage and excisional debridement infected seroma/hematoma (250 cm2). Wound care - VAC. Operative culture - Staphylococcus aureus. She was discharged on Keflex and has finished them. Recent wound culture from 05/30/17 showed Morganella morganii and Staphylococcus aureus. Continue Levaquin. Prealbumin from 05/10/17 was 11.6. Encourage nutritional supplementation with protein to help the healing process. CT Pelvis from 04/30/17 showed a subcutaneous fluid collection most likely represents a postoperative seroma. Today she denies any fever. Her appetite is good. Progress of Wound: Slightly improved. - Physical Exam Vital Signs Temp Pulse Resp BP 97.8 F 97 20 H 159/85 H 08/02/17 09:58 08/02/17 09:58 08/02/17 09:58 08/02/17 09:58 Wound Measurements and Assessment WC - Nurse 1 - General Ulcer Measurement Start: 08/02/17 09:58 Freq: Status: Active Protocol: Activity Type Activity Date Activity User E-Sign Co-Sign Detail Recorded Client Recorded Date Recorded By Document 08/02/17 09:58 DL [id number] 08/02/17 10:07 DL 08/02/17 09:58 Wound Center Nurse 1 [Ulcer Assessment] #1 Lower Abdomen -Current Size (cm) - Length 7 -Current Size (cm) - Width 12 -Current Size (cm) - Depth 3 -Total Square Cm 84 -Photo Taken No -Exudate Amt Large (67-100%) -Exudate Type Serosanguineous -Wound Margin Distinct, Outline Attached -Granulation Amt Large (67-100%) -Granulation Quality Red -Necrosis Amt Small (1-33%) -Necrotic Tissue Type Adherent Slough -Structure Exposed N/A -Texture (Catrachita-wound Skin Appearance) Localized Edema Scarring -Moisture (Catrachita-wound Skin Appearance No Abnormality ) -Color (Catrachita-wound Skin Appearance) Erythema -Temperature (Catrachita-wound Skin No Abnormality Appearance) (Pt Warm) -Ulcer Cleansing Wound Cleanser -Foul Odor after Cleansing No -Anesthetic Used 4% Lidocaine Solution WC - Nurse 2 - General Ulcer CM Notes Start: 08/02/17 09:58 Freq: Status: Active Protocol: Activity Type Activity Date Activity User E-Sign Co-Sign Detail Recorded Client Recorded Date Recorded By Document 08/02/17 10:30 [id number] 08/02/17 10:31 08/02/17 10:30 Wound Center Nurse 2 [Procedure/Treatment] -Time 10:30 -Correct Patient Yes -Correct Side, Site, Position Yes -Correct Procedure Yes -Procedure Performed Yes -Type of Procedure Debridement -Clinical Debridement Subcutaneous -Post Debridement Size (cm) - Length 7 -Post Debridement Size (cm) - Width 12.5 -Post Debridement Size (cm) - Depth 3 -Total Square Cm 87.5 -Wound/Ulcer Outcome Not Healed -Ulcer Cleansing Rinsed/ Irrigated with Saline -Foul Odor after Cleansing No -Bioengineered Tissue No -Bleeding Controlled with Pressure -Treatment Response Procedure Tolerated Well [See Physician Procedure note for Specifics] Pain Scale: 0-10 Numeric [Pain] -Is Patient Pain Free? Yes Debridement Note Post-Debridement Measurements/Treatment - Nurse 2 - General Ulcer CM Notes Start: 08/02/17 09:58 Freq: Status: Active Protocol: Activity Type Activity Date Activity User E-Sign Co-Sign Detail Recorded Client Recorded Date Recorded By Document 08/02/17 10:30 [id number] 08/02/17 10:31 08/02/17 10:30 Wound Center Nurse 2 #1 Lower Abdomen -Time 10:30 -Correct Patient Yes -Correct Side, Site, Position Yes -Correct Procedure Yes -Procedure Performed Yes -Type of Procedure Debridement -Clinical Debridement Subcutaneous -Post Debridement Size (cm) - Length 7 -Post Debridement Size (cm) - Width 12.5 -Post Debridement Size (cm) - Depth 3 -Total Square Cm 87.5 -Wound/Ulcer Outcome Not Healed -Ulcer Cleansing Rinsed/ Irrigated with Saline -Foul Odor after Cleansing No -Bioengineered Tissue No -Bleeding Controlled with Pressure -Treatment Response Procedure Tolerated Well Pain Scale: 0-10 Numeric Is Patient Pain Free? Yes Wound debrided: #1 Vulval and mons pubis area. Laterality: Not Applicable Wound Grade/Stage: 2. Type of Debridement: Excisional debridement Anesthesia Used: 4% Lidocaine Solution Depth: Down to and including healthy tissue, in the subcutaneous layer Percentage of wound debrided: 100 Instrument Used: 7mm curette Tissue Removed: subcutaneous tissue. Severity: Fat Layer Exposed Amount of bleeding with debridement: Mild Bleeding Controlled with: Pressure Patient tolerated procedure well Assessment/Plan Assessment: 1. Nonhealing infected hematoma ulcer lower anterior abdominal wall and pubic area. 2. ERIKA (acute kidney injury), resolving. 3. Anemia of chronic disease, stable. 4. Lymphedema pubic area. 5. 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 6. History of MRSA. Plan: Continue the VAC to be changed three times per week at 150 mmHg continuous suction. She is doing ok at work. Her operative culture showed Staphylococcus aureus and has finished Keflex. She had a more recent culture on 05/30/17 which showed Morganella morganii and Staphylococcus aureus. Continue the Levaquin. Her Prealbumin was 11.6 on 05/10/17. Encourage nutritional supplementation with protein to help the healing process. She is interested in pursuing further wound closure with skin grafting. Patient would like to proceed with the skin graft. Since the ulcer is getting smaller, I told her that a skin graft at this point will not take care of her symptomatology as much as taking care of the lymphedema in the pubic area first. By doing debulking surgery, can then proceed with wound care with the VAC. After the wound has stabilized from the debulking surgery, then can proceed with operative debridement and skin grafting. Followup 2 weeks.
[2017-08-17 14:15] VITALS: BP 178/93; PULSE 98; RESP 22; TEMP 36.6
--- NOTE | 2017-08-17 20:29 | PCM.WC.PN ---
Type of Wound Date of Service: 08/17/17 Chief Complaint: Nonhealing infected hematoma ulcer lower anterior abdominal wall and pubic area. History of Wound: Surgery 05/03/17 - Surgical preparation lower anterior abdominal wall and pubic area with incision and drainage and excisional debridement infected seroma/hematoma (250 cm2). Wound care - VAC. Operative culture - Staphylococcus aureus. She was discharged on Keflex and has finished them. Recent wound culture from 05/30/17 showed Morganella morganii and Staphylococcus aureus. Continue Levaquin. Prealbumin from 05/10/17 was 11.6. Encourage nutritional supplementation with protein to help the healing process. CT Pelvis from 04/30/17 showed a subcutaneous fluid collection most likely represents a postoperative seroma. Today she denies any fever. Her appetite is good. Progress of Wound: Slightly improved. - Physical Exam Vital Signs Temp Pulse Resp BP 97.9 F 98 22 H 178/93 H 08/17/17 14:15 08/17/17 14:15 08/17/17 14:15 08/17/17 14:15 Wound Measurements and Assessment WC - Nurse 1 - General Ulcer Measurement Start: 08/02/17 09:58 Freq: Status: Active Protocol: Activity Type Activity Date Activity User E-Sign Co-Sign Detail Recorded Client Recorded Date Recorded By Document 08/17/17 14:15 DL [id number] 08/17/17 14:24 DL 08/17/17 14:15 Wound Center Nurse 1 [Ulcer Assessment] #1 Lower Abdomen -Current Size (cm) - Length 5.2 -Current Size (cm) - Width 10.3 -Current Size (cm) - Depth 0.2 -Total Square Cm 53.56 -Photo Taken No -Exudate Amt Medium (34-66%) -Exudate Type Serosanguineous -Wound Margin Distinct, Outline Attached -Granulation Amt Large (67-100%) -Granulation Quality Red -Necrosis Amt Small (1-33%) -Necrotic Tissue Type Adherent Slough -Structure Exposed N/A -Texture (Catrachita-wound Skin Appearance) Scarring -Moisture (Catrachita-wound Skin Appearance No Abnormality ) -Color (Catrachita-wound Skin Appearance) No Abnormality -Temperature (Catrachita-wound Skin No Abnormality Appearance) (Pt Warm) -Ulcer Cleansing Wound Cleanser -Foul Odor after Cleansing No -Anesthetic Used 4% Lidocaine Solution WC - Nurse 2 - General Ulcer CM Notes Start: 08/02/17 09:58 Freq: Status: Active Protocol: Activity Type Activity Date Activity User E-Sign Co-Sign Detail Recorded Client Recorded Date Recorded By Document 08/17/17 14:48 [id number] 08/17/17 15:24 08/17/17 14:48 Wound Center Nurse 2 [Procedure/Treatment] -Time 14:49 -Correct Patient Yes -Correct Side, Site, Position Yes -Correct Procedure Yes -Procedure Performed Yes -Type of Procedure Debridement -Clinical Debridement Subcutaneous -Post Debridement Size (cm) - Length 11.0 -Post Debridement Size (cm) - Width 4.2 -Post Debridement Size (cm) - Depth 0.2 -Total Square Cm 46.20 -Wound/Ulcer Outcome Not Healed -Ulcer Cleansing Rinsed/ Irrigated with Saline -Foul Odor after Cleansing No -Bioengineered Tissue No -Topical Lidocaine (%) 4 -Lidocaine (ml) 10 -Bleeding Controlled with NA [See Physician Procedure note for Specifics] Pain Scale: 0-10 Numeric [Pain] -Is Patient Pain Free? Yes Debridement Note Post-Debridement Measurements/Treatment - Nurse 2 - General Ulcer CM Notes Start: 08/02/17 09:58 Freq: Status: Active Protocol: Activity Type Activity Date Activity User E-Sign Co-Sign Detail Recorded Client Recorded Date Recorded By Document 08/02/17 10:30 [id number] 08/02/17 10:31 Document 08/17/17 14:48 [id number] 08/17/17 15:24 08/02/17 08/17/17 10:30 14:48 Wound Center Nurse 2 #1 Lower Abdomen -Time 10:30 14:49 -Correct Patient Yes Yes -Correct Side, Site, Position Yes Yes -Correct Procedure Yes Yes -Procedure Performed Yes Yes -Type of Procedure Debridement Debridement -Clinical Debridement Subcutaneous Subcutaneous -Post Debridement Size (cm) - Length 7 11.0 -Post Debridement Size (cm) - Width 12.5 4.2 -Post Debridement Size (cm) - Depth 3 0.2 -Total Square Cm 87.5 46.20 -Wound/Ulcer Outcome Not Healed Not Healed -Ulcer Cleansing Rinsed/ Rinsed/ Irrigated with Irrigated with Saline Saline -Foul Odor after Cleansing No No -Bioengineered Tissue No No -Topical Lidocaine (%) 4 -Lidocaine (ml) 10 -Bleeding Controlled with Pressure NA -Treatment Response Procedure Tolerated Well Pain Scale: 0-10 Numeric Is Patient Pain Free? Yes Yes Wound debrided: #1 Vulval and mons pubis area. Laterality: Not Applicable Wound Grade/Stage: 2. Type of Debridement: Excisional debridement Anesthesia Used: 4% Lidocaine Solution Depth: Down to and including healthy tissue, in the subcutaneous layer Percentage of wound debrided: 100 Instrument Used: 7mm curette Tissue Removed: subcutaneous tissue. Severity: Fat Layer Exposed Amount of bleeding with debridement: Mild Bleeding Controlled with: Pressure Patient tolerated procedure well Assessment/Plan Assessment: 1. Nonhealing infected hematoma ulcer lower anterior abdominal wall and pubic area. 2. ERIKA (acute kidney injury), resolving. 3. Anemia of chronic disease, stable. 4. Lymphedema pubic area. 5. 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 6. History of MRSA. Plan: Continue the VAC to be changed three times per week at 150 mmHg continuous suction. She is doing ok at work. Her operative culture showed Staphylococcus aureus and has finished Keflex. She had a more recent culture on 05/30/17 which showed Morganella morganii and Staphylococcus aureus. Continue the Levaquin. Her Prealbumin was 11.6 on 05/10/17. Encourage nutritional supplementation with protein to help the healing process. She is interested in pursuing further wound closure with skin grafting. Patient would like to proceed with the skin graft. Since the ulcer is getting smaller, I told her that a skin graft at this point will not take care of her symptomatology as much as taking care of the lymphedema in the pubic area first. By doing debulking surgery, can then proceed with wound care with the VAC. After the wound has stabilized from the debulking surgery, then can proceed with operative debridement and skin grafting. Followup 2 weeks.
== END 2017-08-19 23:59 ==
LOC: WC 14:30
PROVIDERS: Family Provider Family Medicine; PCP Family Medicine; Visit Provider Surgery
DX: L98.492 Non-pressure chronic ulcer of skin of other sites with fat layer exposed (principal); L08.89 Other specified local infections of the skin and subcutaneous tissue; I48.0 Paroxysmal atrial fibrillation; N17.9 Acute kidney failure, unspecified; D63.8 Anemia in other chronic diseases classified elsewhere; Z86.14 Personal history of Methicillin resistant Staphylococcus aureus infection; Z98.84 Bariatric surgery status
CPT/HCPCS: 11042; 11045; 97606

== ENCOUNTER 2017-09-06 08:22 | Outpatient (RCR) | payer MEDICAID, SELFPAY ==
[2017-08-20 00:45] VITALS: BP 178/93; PULSE 98; RESP 22; TEMP 36.6
[2017-09-06 08:38] VITALS: BP 157/92; PULSE 95; RESP 16; TEMP 36.9
--- NOTE | 2017-09-06 18:31 | PCM.WC.PN ---
Type of Wound Date of Service: 09/06/17 Chief Complaint: Nonhealing ulcer vulval and mons pubis area. History of Wound: Surgery 07/20/17 - Surgical preparation vulva involving mons pubis with excision painful infected ulcer and excision associated painful lymphedema with partial vulvectomy (120 cm2). Wound care - Silver. Operative culture - Staphylococcus aureus. She was placed on Levaquin and has finished them. Prealbumin from 07/21/17 was 25.9. Encouraged nutritional supplementation with protein to help the healing process. Today she denies fever. Her appetite is good. She is back to work and doing ok. Progress of Wound: Improved. - Physical Exam Vital Signs Temp Pulse Resp BP 98.4 F 95 16 157/92 H 09/06/17 08:38 09/06/17 08:38 09/06/17 08:38 09/06/17 08:38 Wound Measurements and Assessment WC - Nurse 1 - General Ulcer Measurement Start: 09/06/17 08:38 Freq: Status: Active Protocol: Activity Type Activity Date Activity User E-Sign Co-Sign Detail Recorded Client Recorded Date Recorded By Document 09/06/17 08:38 [id number] 09/06/17 08:52 09/06/17 08:38 Wound Center Nurse 1 [Ulcer Assessment] #1 Lower Abdomen -Combined with other wound No -Current Size (cm) - Length 2.6 -Current Size (cm) - Width 7.9 -Current Size (cm) - Depth 0.1 -Total Square Cm 20.54 -Date of Last Picture (Recall this 09/06/17 field) -Photo Taken Yes -Epithelialization Small 1-33% -Tunneling No -Undermining/Tunneling No -Circular Undermining No -Classification - Thickness Full Thickness without Exposed Support Structure -Exudate Amt Small (1-33%) -Exudate Type Serosanguineous -Wound Margin Distinct, Outline Attached -Granulation Amt None Present (0 %) -Granulation Quality [place] Red -Slough/Fibrin Yes -Necrosis Amt None Present (0 %) -Necrotic Tissue Type Adherent Slough -Structure Exposed None/Limited to Skin Breakdown -Texture (Catrachita-wound Skin Appearance) Scarring -Moisture (Catrachita-wound Skin Appearance Assessed ) Maceration -Color (Catrachita-wound Skin Appearance) Assessed Erythema -Temperature (Catrachita-wound Skin No Abnormality Appearance) (Pt Warm) -Tenderness on Palpation (Catrachita-wound Yes Skin Appearance) -Ulcer Cleansing Rinsed/ Irrigated with Saline -Foul Odor after Cleansing No -Anesthetic Used 4% Lidocaine Solution [Edema Assessment] -Lower Limb Edema Present NA - Nurse 2 - General Ulcer CM Notes Start: 09/06/17 08:38 Freq: Status: Active Protocol: Activity Type Activity Date Activity User E-Sign Co-Sign Detail Recorded Client Recorded Date Recorded By Document 09/06/17 09:27 [id number] 09/06/17 09:31 09/06/17 09:27 Wound Center Nurse 2 [Procedure/Treatment] #1 Lower Abdomen -Time 09:30 -Correct Patient Yes -Correct Side, Site, Position Yes -Correct Procedure Yes -Procedure Performed Yes -Type of Procedure Debridement -Clinical Debridement Subcutaneous -Post Debridement Size (cm) - Length 2.6 -Post Debridement Size (cm) - Width 8 -Post Debridement Size (cm) - Depth 0.1 -Total Square Cm 20.8 -Wound/Ulcer Outcome Not Healed -Ulcer Cleansing Rinsed/ Irrigated with Saline -Foul Odor after Cleansing No -Bioengineered Tissue No -Bleeding Controlled with Pressure -Treatment Response Procedure Tolerated Well [See Physician Procedure note for Specifics] Pain Scale: 0-10 Numeric [Pain] -Is Patient Pain Free? Yes Debridement Note Post-Debridement Measurements/Treatment - Nurse 2 - General Ulcer CM Notes Start: 09/06/17 08:38 Freq: Status: Active Protocol: Activity Type Activity Date Activity User E-Sign Co-Sign Detail Recorded Client Recorded Date Recorded By Document 09/06/17 09:27 [id number] 09/06/17 09:31 09/06/17 09:27 Wound Center Nurse 2 #1 Lower Abdomen -Time 09:30 -Correct Patient Yes -Correct Side, Site, Position Yes -Correct Procedure Yes -Procedure Performed Yes -Type of Procedure Debridement -Clinical Debridement Subcutaneous -Post Debridement Size (cm) - Length 2.6 -Post Debridement Size (cm) - Width 8 -Post Debridement Size (cm) - Depth 0.1 -Total Square Cm 20.8 -Wound/Ulcer Outcome Not Healed -Ulcer Cleansing Rinsed/ Irrigated with Saline -Foul Odor after Cleansing No -Bioengineered Tissue No -Bleeding Controlled with Pressure -Treatment Response Procedure Tolerated Well Pain Scale: 0-10 Numeric Is Patient Pain Free? Yes Wound debrided: #1 Vulval and mons pubis area. Laterality: Not Applicable Wound Grade/Stage: 2. Type of Debridement: Excisional debridement Anesthesia Used: 4% Lidocaine Solution Depth: Down to and including healthy tissue, in the subcutaneous layer Percentage of wound debrided: 100 Instrument Used: 5mm curette Tissue Removed: subcutaneous tissue. Severity: Fat Layer Exposed Amount of bleeding with debridement: Mild Bleeding Controlled with: Pressure Patient tolerated procedure well Assessment/Plan Assessment: 1. Nonhealing ulcer vulval and mons pubis area. 2. Lymphedema genitalia involving mons pubis. 3. 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 4. s/p surgical preparation vulva involving mons pubis with excision painful infected ulcer and excision associated painful lymphedema with partial vulvectomy (120 cm2). 5. History of MRSA. Plan: Continue Silver dressing changes daily. She is back to work and doing ok. Her operative culture showed Staphylococcs aureus. She was placed on Levaquin and has finished them. Her Prealbumin from 07/21/17 was 25.9. Encourage nutritional supplementation with protein to help the healing process. Followup 3 weeks.
--- NOTE | 2017-09-08 00:31 | PN.PCM_ITS ---
Type of Wound Date of Service: 09/06/17 Chief Complaint: Nonhealing ulcer vulval and mons pubis area. History of Wound: Surgery 07/20/17 - Surgical preparation vulva involving mons pubis with excision painful infected ulcer and excision associated painful lymphedema with partial vulvectomy (120 cm2). Wound care - Silver. Operative culture - Staphylococcus aureus. She was placed on Levaquin and has finished them. Prealbumin from 07/21/17 was 25.9. Encouraged nutritional supplementation with protein to help the healing process. Today she denies fever. Her appetite is good. She is back to work and doing ok. Progress of Wound: Improved. - Physical Exam Vital Signs Temp Pulse Resp BP 98.4 F 95 16 157/92 H 09/06/17 08:38 09/06/17 08:38 09/06/17 08:38 09/06/17 08:38 Wound Measurements and Assessment WC - Nurse 1 - General Ulcer Measurement Start: 09/06/17 08:38 Freq: Status: Active Protocol: Activity Type Activity Date Activity User E-Sign Co-Sign Detail Recorded Client Recorded Date Recorded By Document 09/06/17 08:38 [id number] 09/06/17 08:52 09/06/17 08:38 Wound Center Nurse 1 [Ulcer Assessment] #1 Lower Abdomen -Combined with other wound No -Current Size (cm) - Length 2.6 -Current Size (cm) - Width 7.9 -Current Size (cm) - Depth 0.1 -Total Square Cm 20.54 -Date of Last Picture (Recall this 09/06/17 field) -Photo Taken Yes -Epithelialization Small 1-33% -Tunneling No -Undermining/Tunneling No -Circular Undermining No -Classification - Thickness Full Thickness without Exposed Support Structure -Exudate Amt Small (1-33%) -Exudate Type Serosanguineous -Wound Margin Distinct, Outline Attached -Granulation Amt None Present (0 %) -Granulation Quality [place] Red -Slough/Fibrin Yes -Necrosis Amt None Present (0 %) -Necrotic Tissue Type Adherent Slough -Structure Exposed None/Limited to Skin Breakdown -Texture (Catrachita-wound Skin Appearance) Scarring -Moisture (Catrachita-wound Skin Appearance Assessed ) Maceration -Color (Catrachita-wound Skin Appearance) Assessed Erythema -Temperature (Catrachita-wound Skin No Abnormality Appearance) (Pt Warm) -Tenderness on Palpation (Catrachita-wound Yes Skin Appearance) -Ulcer Cleansing Rinsed/ Irrigated with Saline -Foul Odor after Cleansing No -Anesthetic Used 4% Lidocaine Solution [Edema Assessment] -Lower Limb Edema Present NA - Nurse 2 - General Ulcer CM Notes Start: 09/06/17 08:38 Freq: Status: Active Protocol: Activity Type Activity Date Activity User E-Sign Co-Sign Detail Recorded Client Recorded Date Recorded By Document 09/06/17 09:27 [id number] 09/06/17 09:31 09/06/17 09:27 Wound Center Nurse 2 [Procedure/Treatment] #1 Lower Abdomen -Time 09:30 -Correct Patient Yes -Correct Side, Site, Position Yes -Correct Procedure Yes -Procedure Performed Yes -Type of Procedure Debridement -Clinical Debridement Subcutaneous -Post Debridement Size (cm) - Length 2.6 -Post Debridement Size (cm) - Width 8 -Post Debridement Size (cm) - Depth 0.1 -Total Square Cm 20.8 -Wound/Ulcer Outcome Not Healed -Ulcer Cleansing Rinsed/ Irrigated with Saline -Foul Odor after Cleansing No -Bioengineered Tissue No -Bleeding Controlled with Pressure -Treatment Response Procedure Tolerated Well [See Physician Procedure note for Specifics] Pain Scale: 0-10 Numeric [Pain] -Is Patient Pain Free? Yes Debridement Note Post-Debridement Measurements/Treatment - Nurse 2 - General Ulcer CM Notes Start: 09/06/17 08:38 Freq: Status: Active Protocol: Activity Type Activity Date Activity User E-Sign Co-Sign Detail Recorded Client Recorded Date Recorded By Document 09/06/17 09:27 [id number] 09/06/17 09:31 09/06/17 09:27 Wound Center Nurse 2 #1 Lower Abdomen -Time 09:30 -Correct Patient Yes -Correct Side, Site, Position Yes -Correct Procedure Yes -Procedure Performed Yes -Type of Procedure Debridement -Clinical Debridement Subcutaneous -Post Debridement Size (cm) - Length 2.6 -Post Debridement Size (cm) - Width 8 -Post Debridement Size (cm) - Depth 0.1 -Total Square Cm 20.8 -Wound/Ulcer Outcome Not Healed -Ulcer Cleansing Rinsed/ Irrigated with Saline -Foul Odor after Cleansing No -Bioengineered Tissue No -Bleeding Controlled with Pressure -Treatment Response Procedure Tolerated Well Pain Scale: 0-10 Numeric Is Patient Pain Free? Yes Wound debrided: #1 Vulval and mons pubis area. Laterality: Not Applicable Wound Grade/Stage: 2. Type of Debridement: Excisional debridement Anesthesia Used: 4% Lidocaine Solution Depth: Down to and including healthy tissue, in the subcutaneous layer Percentage of wound debrided: 100 Instrument Used: 5mm curette Tissue Removed: subcutaneous tissue. Severity: Fat Layer Exposed Amount of bleeding with debridement: Mild Bleeding Controlled with: Pressure Patient tolerated procedure well Assessment/Plan Assessment: 1. Nonhealing ulcer vulval and mons pubis area. 2. Lymphedema genitalia involving mons pubis. 3. 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 4. s/p surgical preparation vulva involving mons pubis with excision painful infected ulcer and excision associated painful lymphedema with partial vulvectomy (120 cm2). 5. History of MRSA. Plan: Continue Silver dressing changes daily. She is back to work and doing ok. Her operative culture showed Staphylococcs aureus. She was placed on Levaquin and has finished them. Her Prealbumin from 07/21/17 was 25.9. Encourage nutritional supplementation with protein to help the healing process. Followup 3 weeks.
== END 2017-09-18 23:59 ==
LOC: WC 08:22
PROVIDERS: Family Provider Family Medicine; PCP Family Medicine; Visit Provider Surgery
DX: S30.1XXA Contusion of abdominal wall, initial encounter (principal); X58.XXXA Exposure to other specified factors, initial encounter; N17.9 Acute kidney failure, unspecified; I89.0 Lymphedema, not elsewhere classified; Z98.84 Bariatric surgery status; D63.8 Anemia in other chronic diseases classified elsewhere
CPT/HCPCS: 11042; 11045

== ENCOUNTER 2017-09-21 15:48 | Emergency (ER) | payer MEDICAID, SELFPAY ==
[2017-09-21 15:49] VITALS: BP 174/100; PULSE 99; RESP 18; TEMP 36.9; O2SAT 100; BMI 30.7
--- NOTE | 2017-09-21 16:36 | CT_ITS ---
STUDY: CT PELVIS WITH CONTRAST REASON FOR EXAM: Female, 32 years old. Abscesses and fever. RADIATION DOSAGE (If Supplied By Facility): CTDIvol = ( 28.21 ) mGy, DLP = ( 915.79 ) mGycm TECHNIQUE: Transaxial imaging of the pelvis was performed without oral contrast. 75 ml of Isovue 300 contrast was administered intravenously. Individualized dose optimization techniques were used for this CT. COMPARISON: Compared to numerous previous examinations including 07/12/2017. FINDINGS: Again seen is a markedly abnormal appearance to the abdominal wall directly anterior to the symphysis pubis were there is a focal defect of the subcutaneous tissues, and extensive scar formation but no focal fluid collection or abscess is seen.. Question an overlying bandage or wound VAC. No extension of inflammatory process or abscess into the pelvis. Normal urinary bladder. Normal visualized small intestine. Normal visualized colon. There is no pelvic fluid. There is no pelvic lymphadenopathy or mass lesion. Normal visualized pelvic arteries. Normal osseous structures. CT/Pelvis WITH IV Contrast IMPRESSION: No evidence for focal abscess within the pelvis or in the abdominal wall. Again seen is a prominent lower abdominal wall defect anterior and superior to the symphysis pubis where there is extensive scar formation and absence of subcutaneous fat tissue. Electronically Signed: Jett Bradford MD at 21:37 EDT , Service support ,
--- NOTE | 2017-09-21 16:39 | ED.VISSUMM ---
- ER Visit Summary Date of Service: 09/21/17 Chief Complaint: Fever, wound evaluation History of Present Illness: The patient is a 32 F status post vulvectomy by Dr. Mendieta, postop infections, with a wound VAC. Patient states last surgery was in July. Wound VAC was removed a month ago. Last follow-up with 2 weeks ago is doing well. States over last 2 days developed fever, T-max 101.7 orally. Patient is today noted increasing bleeding from the site, there is green drainage. Nursing saw patient today sent the patient to the ED. Denies any cough or urinary symptoms. Last menstrual period a week ago. Pain increasing over 2 days. Physical Examination: General: Alert and oriented ?3, no acute distress HEENT: Normocephalic, atraumatic. Moist mucosa membranes Neck: supple, nontender. Cardiovascular: Regular rate and rhythm, no murmurs Respiratory: Normal breath sounds, symmetric, no distress Abdomen: Soft, nondistended. Suprapubic pelvis region 3 x 4 cm area of wound, good granulations, no exudative drainage. There is incision from left lateral into the vaginal region, clean, dry, intact. There are swollen labia bilaterally, tender to palpation. Extremities: Nontender, no edema, pulses intact ?4 Neuro: no focal neurological deficits. Test Results: WBC 6. Creatinine 0.68. HCG negative. CT pelvis IV contrast no abscess noted. Emergency Department Course and Treatment: Patient with subjective fever and increasing drainage over the past 2 days. Workup initiated rule out abscess. White count normal. CT pelvis negative. She was given Zofran in the ED and 1 dose of morphine. She has prescription for hydrocodone and Zofran at home. I did discuss with Dr. Mendieta, patient will follow-up in the wound clinic, continue normal wound care. No antibiotics at this time. Patient updated all questions were answered. Of note there was delay in obtaining the read from radiology, patient was updated on delay. Treatment Plan: [] Disposition: Discharge Impression: Wound evaluation This note was generated with [employer] dictation software. It may contain incorrect words, spelling, and punctuation that were not noted in review of the chart prior to signing ED Disposition - Plan for ED Patient: Disposition: Home or Assisted Living Chief Complaint: Wound Check Diagnosis: Encounter for evaluation of wound Instructions: Wound Care Referrals: Bethel Jauregui III, MD [Primary Care Provider] - Additional Instructions: Follow-up with wound clinic with Dr. Mendieta
[2017-09-21] MEDS: 0.9% Normal Saline 1,000 ML 125 ML IV (16:56)
[2017-09-21] MEDS: Morphine 4 MG/ML Syringe IV (16:57)
[2017-09-21 17:30] LABS: Absolute Lymphocyte Count 1.82 X10^3/ul (0.83-4.51); Absolute Neutrophil Count 3.4 X10^3/uL (2.0-7.7); Basophil# 0.04 X10^3/uL; Basophil% 0.7 % (0-1); Eosinophil# 0.12 X10^3/uL; Hematocrit 33.1 % (37-47); Hemoglobin 10.4 g/dl (12.0-15.0); Lymphocyte # 1.82 X10^3/ul (4.0); Lymphocyte % 30.4 % (19-41); Mean Corp Hgb Conc 31.4 g/gl (32-36); Mean Corpuscular Hgb 23.5 pg (27.0-32.0); Mean Corpuscular Volume 74.9 fL (81-99); Mean Platelet Vol. 11.1 fl (6.2-12.0); Monocyte# 0.56 X10^3/uL; Monocyte% 9.4 % (0-10); Neutrophil # 3.44 X10^3/uL (2.7-7.7); Neutrophil % 57.5 % (47-70); Platelet Count 395 K/mm3 (150-450); RBC Distribution Width CV 14.6 % (11.6-14.6); RBC Distribution Width SD 39.5 fl (35.1-43.9); Red Blood Count 4.42 M/mm3 (4.2-5.4)
[2017-09-21 17:31] LABS: Differential Indicated SCAN CRITERIA MET; POSITIVE COUNT NO; POSITIVE DIFFERENTIAL NO; POSITIVE MORPHOLOGY YES
[2017-09-21 17:36] LABS: ALB/GLOB Ratio 1.3 RATIO (0.9-2.4); AST(SGOT) 10 U/L (15-37); Alanine Aminotransfer ALT/SGPT 26 U/L (13-56); Albumin, Serum 4.5 g/dL (3.2-5.0); Alkaline Phosphatase 72 U/L (45-117); Anion Gap 8 (5-15); BUN 16 mg/dL (7-18); BUN/Creat Ratio 23.5 RATIO (10-20); Calcium,Total 9.4 mg/dL (8.5-10.1); Chloride 104 mmol/L (98-107); Creatinine, Serum 0.68 mg/dL (0.55-1.02); EST Glomerular Filtration Rate 106 mL/min (>60); Est Glom Filt Rate - Afr Amer 129 mL/min (>60); Estimated Creatinine Clearance 112.22 ml/min; Globulin 3.4 g/dL (2.2-4.2); Glucose 80 mg/dL (74-106); Potassium 3.7 mmol/L (3.5-5.1); Protein, Total 7.9 g/dL (6.4-8.2); Sodium Level 139 mmol/L (136-145)
[2017-09-21 17:37] LABS: Prothrombin Time (Protime)PT. 13.3 SECONDS (11.7-14.9)
[2017-09-21 17:38] LABS: Partial Thromboplast Time 27.9 Seconds (24.1-36.2); Pregnancy, Serum, hCG Quali. NEGATIVE Negative (0-9 Nonpreg)
[2017-09-21 17:43] LABS: Differential Comment SCANNED
[2017-09-21] MEDS: Ondansetron 4 MG/2 ML Vial IV (20:01)
[2017-09-21 20:09] VITALS: BP 143/86; PULSE 74; RESP 18; O2SAT 96
[2017-09-21 21:51] VITALS: BP 136/78; PULSE 82; RESP 15; O2SAT 97
== END 2017-09-21 21:52 | disposition home or self-care (01) ==
PROVIDERS: Emergency Provider Emergency Medicine; Family Provider Family Medicine; PCP Family Medicine
DX: Z09 Encounter for follow-up examination after completed treatment for conditions other than malignant neoplasm (principal); R50.9 Fever, unspecified; I10 Essential (primary) hypertension; Z98.890 Other specified postprocedural states
CPT/HCPCS: 72193; 80053; 84703; 85025; 85610; 85730; 99283; J7030; Q9967; A4216; J2405

== ENCOUNTER 2017-10-04 08:48 | Outpatient (RCR) | payer MEDICAID, SELFPAY ==
[2017-09-19 00:40] VITALS: BP 157/92; PULSE 95; RESP 16; TEMP 36.9
[2017-10-04 10:49] VITALS: BP 111/76; PULSE 98; RESP 18; TEMP 36.4
--- NOTE | 2017-10-04 23:56 | PCM.WC.PN ---
Type of Wound Date of Service: 10/04/17 Chief Complaint: Nonhealing ulcer vulval and mons pubis area. History of Wound: Surgery 07/20/17 - Surgical preparation vulva involving mons pubis with excision painful infected ulcer and excision associated painful lymphedema with partial vulvectomy (120 cm2). Wound care - Silver. Operative culture - Staphylococcus aureus. She was placed on Levaquin and has finished them. Prealbumin from 07/21/17 was 25.9. Encouraged nutritional supplementation with protein to help the healing process. Today she denies fever. Her appetite is good. She is back to work and doing ok. Progress of Wound: Slightly improved. - Physical Exam Vital Signs Temp Pulse Resp BP 97.5 F L 98 18 111/76 10/04/17 10:49 10/04/17 10:49 10/04/17 10:49 10/04/17 10:49 Wound Measurements and Assessment WC - Nurse 1 - General Ulcer Measurement Start: 10/04/17 10:29 Freq: Status: Active Protocol: Activity Type Activity Date Activity User E-Sign Co-Sign Detail Recorded Client Recorded Date Recorded By Document 10/04/17 10:49 DL [id number] 10/04/17 10:54 DL 10/04/17 10:49 Wound Center Nurse 1 [Ulcer Assessment] #1 Lower Abdomen -Current Size (cm) - Length 2 -Current Size (cm) - Width 6.5 -Current Size (cm) - Depth 0.1 -Total Square Cm 13.0 -Photo Taken No -Exudate Amt Small (1-33%) -Exudate Type Serosanguineous -Wound Margin Distinct, Outline Attached -Granulation Amt Large (67-100%) -Granulation Quality Red -Necrosis Amt Small (1-33%) -Necrotic Tissue Type Adherent Slough -Structure Exposed N/A -Texture (Catrachita-wound Skin Appearance) Scarring -Moisture (Cat[place]achita-wound Skin Appearance No Abnormality ) -Color (Catrachita-wound Skin Appearance) No Abnormality -Temperature (Cat[place]achita-wound Skin No Abnormality Appearance) (Pt Warm) -Tenderness on Palpation ([place]ita-wound Yes Skin Appearance) -Ulcer Cleansing Rinsed/ Irrigated with Saline -Foul Odor after Cleansing No -Anesthetic Used 4% Lidocaine Solution WC - Nurse 2 - General Ulcer CM Notes Start: 10/04/17 10:29 Freq: Status: Active Protocol: Activity Type Activity Date Activity User E-Sign Co-Sign Detail Recorded Client Recorded Date Recorded By Document 10/04/17 11:56 [id number] 10/04/17 12:00 10/04/17 11:56 Wound Center Nurse 2 [Procedure/Treatment] -Time 11:56 -Correct Patient Yes -Correct Side, Site, Position Yes -Correct Procedure Yes -Procedure Performed Yes -Type of Procedure Debridement -Clinical Debridement Subcutaneous -Post Debridement Size (cm) - Length 2.1 -Post Debridement Size (cm) - Width 6.6 -Post Debridement Size (cm) - Depth 0.1 -Total Square Cm 13.86 -Wound/Ulcer Outcome Not Healed -Ulcer Cleansing Rinsed/ Irrigated with Saline -Foul Odor after Cleansing No -Bioengineered Tissue No -Topical Lidocaine (%) 4 -Bleeding Controlled with Pressure -Treatment Response Procedure Tolerated Well [See Physician Procedure note for Specifics] Pain Scale: 0-10 Numeric [Pain] -Is Patient Pain Free? Yes Debridement Note Post-Debridement Measurements/Treatment WC - Nurse 2 - General Ulcer CM Notes Start: 10/04/17 10:29 Freq: Status: Active Protocol: Activity Type Activity Date Activity User E-Sign Co-Sign Detail Recorded Client Recorded Date Recorded By Document 10/04/17 11:56 [id number] 10/04/17 12:00 10/04/17 11:56 Wound Center Nurse 2 #1 Lower Abdomen -Time 11:56 -Correct Patient Yes -Correct Side, Site, Position Yes -Correct Procedure Yes -Procedure Performed Yes -Type of Procedure Debridement -Clinical Debridement Subcutaneous -Post Debridement Size (cm) - Length 2.1 -Post Debridement Size (cm) - Width 6.6 -Post Debridement Size (cm) - Depth 0.1 -Total Square Cm 13.86 -Wound/Ulcer Outcome Not Healed -Ulcer Cleansing Rinsed/ Irrigated with Saline -Foul Odor after Cleansing No -Bioengineered Tissue No -Topical Lidocaine (%) 4 -Bleeding Controlled with Pressure -Treatment Response Procedure Tolerated Well Pain Scale: 0-10 Numeric Is Patient Pain Free? Yes Wound debrided: #1 Vulval and mons pubis area. Laterality: Not Applicable Wound Grade/Stage: 2. Type of Debridement: Excisional debridement Anesthesia Used: 4% Lidocaine Solution Depth: Down to and including healthy tissue, in the subcutaneous layer Percentage of wound debrided: 100 Instrument Used: 7mm curette Tissue Removed: subcutaneous tissue. Severity: Fat Layer Exposed Amount of bleeding with debridement: Mild Bleeding Controlled with: Pressure Patient tolerated procedure well Assessment/Plan Assessment: 1. Nonhealing ulcer vulval and mons pubis area. 2. Lymphedema genitalia involving mons pubis. 3. 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 4. s/p surgical preparation vulva involving mons pubis with excision painful infected ulcer and excision associated painful lymphedema with partial vulvectomy (120 cm2). 5. History of MRSA. Plan: Continue Silver dressing changes daily. She is back to work and doing ok. Her operative culture showed Staphylococcs aureus. She was placed on Levaquin and has finished them. A wound culture was done today. A positive culture will necessitate antibiotic therapy in preparation for further operative debridement and skin grafting. Her Prealbumin from 07/21/17 was 25.9. Encourage nutritional supplementation with protein to help the healing process. Patient will think about the skin graft and let me know. Followup 3 weeks.
== END 2017-10-19 23:59 ==
LOC: WC 08:48
PROVIDERS: Family Provider Family Medicine; PCP Family Medicine; Visit Provider Surgery
DX: L98.499 Non-pressure chronic ulcer of skin of other sites with unspecified severity (principal); Z86.14 Personal history of Methicillin resistant Staphylococcus aureus infection
CPT/HCPCS: 11042; 87070; 87075; 87077; 87205

== ENCOUNTER 2017-10-19 07:21 | Day surgery (SDC) | payer MEDICAID, SELFPAY ==
--- NOTE | 2017-10-18 19:07 | HP.PCM_ITS ---
History and Physical Date of Admission: 10/19/17 HISTORY OF PRESENT ILLNESS 32-year-old woman presents with a painful nonhealing ulcer lower anterior abdominal wall and pubic area after developing an infected hematoma that resulted in surgery on 05/03/17 where she underwent surgical preparation lower anterior abdominal wall and pubic area with incision and drainage and excisional debridement infected seroma/hematoma (250 cm2). Her initial surgery was on 04/20/17 where she underwent excision 8 cm painful soft tissue mass pubic area with 20 cm complex closure. Operative culture showed Staphylococcus aureus and was treated with antibiotics. After discharge, she had another culture done on 05/30/17 which showed Staphylococcus aureus and Morganella morganii and was treated with antibiotics. Her initial infected wound was treated with the VAC and then changed to Silver dressings daily because of too much pain with the VAC. During the wound care, the patient developed persistent swelling in her mons pubis area resulting in a lymphedema-type picture. It was recommended to the patient to excise this lymphedema tissue in her genitalia involving the mons pubis with a partial vulvectomy to help debulk the area which should help with her persistent pain in the nonhealing ulcer mons pubis area. On 07/20/17 she underwent surgical preparation vulva involving mons pubis with excision painful infected ulcer and excision associated painful lymphedema with partial vulvectomy (120 cm2). She has persistent pain in the area of the ulceration in the mons pubis area. She presents today for surgical options for treatment. 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 Nonhealing infected hematoma ulcer lower anterior abdominal wall and pubic area Anemia of chronic disease. History of MRSA. PAST SURGICAL HISTORY 2 Kidney stones removed gallbladder removed Gastric bypass - 2015 Laparoscopic Og-en-Y procedure at [facility] Abdominal panniculectomy - 09/17/16 Incision and drainage postop hematoma abdominal wall - 09/17/16 Incision and drainage infected postop abdominal wall seroma - 10/20/16 Left thyroid removed Excision 8 cm painful soft tissue mass pubic area with 20 cm complex closure - Surgical preparation lower anterior abdominal wall and pubic area with incision and drainage and excisional debridement infected seroma/hematoma (250 cm2) - 03/08 Surgical preparation vulva involving mons pubis with excision painful infected ulcer and excision associated painful lymphedema with partial vulvectomy (120 cm2) - 07/20/17 FAMILY HISTORY Mother (biol.) - Has Family History of Anxiety Mother (biol.) - Has Family History of Bleeding Disease Mother (biol.) - Has Family History of Depression Mother (biol.) - Has Family History of Hypertension Mother (biol.) - Has Family History of High Cholesterol Mother (biol.) - Has Family History of Other Cancer Father (biol.) - Has Family History of Diabetes Father (biol.) - Has Family History of Hypertension PGF - Has Family History of Colon Cancer PGF - Has Family History of Diabetes PGF - Has Family History of Heart Disease SOCIAL HISTORY Alcohol Use - no Patient has never smoked. MEDICATIONS NEXPLANON IMPLANT (ETONOGESTREL IMPL) subdermal FLOMAX 0.4 MG ORAL CAPSULE (TAMSULOSIN HCL) Two tablets by mouth twice daily LISINOPRIL 40 MG ORAL TABLET (LISINOPRIL) One tablet by mouth twice daily NORCO 5-325 MG ORAL TABLET (HYDROCODONE-ACETAMINOPHEN) as needed VITAMIN D3 70239 UNIT ORAL TABLET (CHOLECALCIFEROL) 1 tab once a week ELAVIL TABLET (AMITRIPTYLINE HCL TABS) One tablet by mouth daily ALLERGIES NSAIDS (Critical) * GABAPENTIN (Critical) TORADOL (Critical) * TRAMADOL (Critical) REVIEW OF SYSTEMS General-denies fever. Has some fatigue. Has had major weight loss since her gastric bypass procedure done a year and a half ago. She lost 180 pounds. Ear nose and throat-denies nasal congestion. Denies sore throat. Eyes-denies glaucoma. Denies cataracts. Endocrine-denies excessive thirst or urination. Skin-has an abdominal wall skin crease intertrigo for which she uses powders for relief. She has lymphedema genitalia involving mons pubis. Has nonhealing ulcer in the mons pubis area. Musculoskeletal-denies joint pain, joint stiffness, weakness of muscles and joints, neck pain, and arthritis. Neurologic-has headaches. Cardiovascular-denies chest pain. Has some fatigue. Denies shortness of breath with exertion. Psychiatric-denies anxiety. Denies depression. Respiratory-denies shortness of breath. Denies chronic cough. Gastrointestinal-denies nausea, vomiting, diarrhea, constipation. Denies abdominal bloating. Hematologic-denies abnormal bruising or bleeding. Genitourinary-denies hematuria and urinary frequency. PHYSICAL EXAMINATION General-well developed, well nourished, in no acute distress. HEENT-pupils equal round and reactive to light. Extraocular muscles intact. Throat is clear. Neck-supple and nontender. No cervical adenopathy. Lungs-clear to auscultation. Heart-regular rate and rhythm. Abdomen-soft and nondistended. There is abdominal wall scarring from previous abdominal panniculectomy. No abdominal masses noted. No ventral hernias noted. In the mons pubis area is a painful nonhealing ulcer that measures 6.5 x 2 cm. Some granulation tissue is present. Tenderness to palpation. No evidence of infection. Occasional bleeding at the time of the dressing changes. Extremities-full range of motion. No axillary adenopathy. No inguinal adenopathy. Radial pulses and dorsalis pedis pulses are palpable. Neuro-cranial nerves II through XII grossly intact. ASSESSMENT 1. Nonhealing painful infected ulcer vulva involving the mons pubis area. 2. 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 3. Lymphedema genitalia involving mons pubis. PLAN Because of her persistent pain, I recommend excisional debridement of this nonhealing ulcer. Will send tissue to Pathology for analysis to rule out carcinoma and to Microbiology for culture. A positive culture will necessitate antibiotic therapy. Reconstruction will be with skin grafting. Donor site will be the abdominal wall. Post discharge, she will followup at the Wound Center. Surgery will be done under general anesthesia with a surgical observation overnight stay in the hospital. The patient was informed of the risks and complications of the procedure including alternatives to surgery. These were discussed with the patient personally. The patient voices understanding and wishes to proceed.
[2017-10-19 07:46] LABS: Internal QC Validated? YES +Cl - CLEAR BKGD; Pregnancy, Urine Negative Negative
[2017-10-19 07:49] VITALS: BP 144/91; PULSE 87; RESP 16; TEMP 36.3; O2SAT 100; BMI 32.6
[2017-10-19 07:52] LABS: Hematocrit 33.8 % (37-47); Hemoglobin 10.5 g/dl (12.0-15.0); Mean Corp Hgb Conc 31.1 g/gl (32-36); Mean Corpuscular Hgb 22.8 pg (27.0-32.0); Mean Corpuscular Volume 73.5 fL (81-99); Mean Platelet Vol. 11.1 fl (6.2-12.0); Platelet Count 385 K/mm3 (150-450); RBC Distribution Width CV 16.5 % (11.6-14.6); RBC Distribution Width SD 43.2 fl (35.1-43.9); White Blood Count 5.1 K/mm3 (4.4-11.0)
[2017-10-19 07:54] LABS: Scan Indicated on CBC? Y/N NO
[2017-10-19 07:58] LABS: Prothrombin Time (Protime)PT. 12.7 SECONDS (11.7-14.9)
[2017-10-19 07:59] LABS: Partial Thromboplast Time 24.8 Seconds (24.1-36.2)
[2017-10-19] MEDS: levoFLOXacin IV 500 MG/100 ML BAG 100 MG IV (08:55)
--- NOTE | 2017-10-19 09:00 | UL_PTH ---
PATIENT: ISIDORO PENG LOC: [facility] [place] U#:[id number] AGE/SX: ROOM: RE10/19/[address]: Dr. Gigi Mendieta MD : 1985 BED: DIS: 10/19/2017 SPEC #: [id number] RECD: 10/19/17 12:43 STATUS: RAFAELA REGeovanna #: [id number] ANGELA: 10/19/17 09:[address]: Gigi Mendieta DEPT: SURGICAL PATHOLOGY RECD BY: Benjamin Bertrand ENTERED: 10/19/17 12:49 SP TYPE: ULCER OTHR DR: Dr. Bethel Jauregui III, MD Tissues: Mons pubis Procedures: Surgery Specimen Level III HEADER OPERATION: Surgical prep, mons pubis with excisional debridement, nonhealing PRE-OP DIAGNOSIS: Nonhealing, painful, infected hematoma ulcer mons pubis area TISSUE SUBMITTED: Nonhealing ulcer mons pubis MICROSCOPIC DIAGNOSIS Nonhealing ulcer mons pubis: Pieces of skin and fibroconnective tissue with focal ulceration, acute and chronic inflammation and granulation tissue reaction. MORENA:lucinda 10/20/17 MICROSCOPIC DESCRIPTION Slides are reviewed. GROSS DESCRIPTION Received in fixative is one container labeled with the patient's name and designated nonhealing ulcer mons pubis. The specimen consists of multiple pieces of motley-pink soft tissue that in aggregate measure 2.5 x 2 x 0.3 cm. The entire specimen is submitted in one cassette. / MORENA:lucinda 10/19/17 TC:2 CPT: 30457
[2017-10-19] MEDS: Mupirocin Ointment 22gm Tube 1 APPLIC (10:30)
--- NOTE | 2017-10-19 10:37 | OP.PN_ITS ---
Immediate Post-Op Note Date of Procedure: 10/19/17 Primary Surgeon/Physician: Gigi Mendieta assistant professor of dietetics: Danyell Kelly. Pre-Operative Diagnosis: 1. Nonhealing painful infected ulcer vulva involving the mons pubis area. 2. 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 3. Lymphedema genitalia involving mons pubis. Post-Operative Diagnosis: Same. Surgery/Procedure Performed:: Surgical preparation vulva involving the mons pubis area with excisional debridement nonhealing ulcer with STSG reconstruction from the right lateral abdominal wall (15 cm2) and placement of ANGIE NPWT. Description of Surgical Findings:: 2-year-old woman presents with a painful nonhealing ulcer lower anterior abdominal wall and pubic area after developing an infected hematoma that resulted in surgery on 05/03/17 where she underwent surgical preparation lower anterior abdominal wall and pubic area with incision and drainage and excisional debridement infected seroma/hematoma (250 cm2). Her initial surgery was on 04/20/17 where she underwent excision 8 cm painful soft tissue mass pubic area with 20 cm complex closure. Operative culture showed Staphylococcus aureus and was treated with antibiotics. After discharge, she had another culture done on 05/30/17 which showed Staphylococcus aureus and Morganella morganii and was treated with antibiotics. Her initial infected wound was treated with the VAC and then changed to Silver dressings daily because of too much pain with the VAC. During the wound care, the patient developed persistent swelling in her mons pubis area resulting in a lymphedema-type picture. It was recommended to the patient to excise this lymphedema tissue in her genitalia involving the mons pubis with a partial vulvectomy to help debulk the area which should help with her persistent pain in the nonhealing ulcer mons pubis area. On 07/20/17 she underwent surgical preparation vulva involving mons pubis with excision painful infected ulcer and excision associated painful lymphedema with partial vulvectomy (120 cm2). She has persistent pain in the area of the ulceration in the mons pubis area. Today the patient underwent surgical preparation vulva involving the mons pubis area with excisional debridement nonhealing ulcer with STSG reconstruction from the right lateral abdominal wall (15 cm2) and placement of ANGIE NPWT. Size of skin graft mons pubis area - 6 x 2.5 cm. Estimated Blood Loss: 20 ml. Specimen's removed: Nonhealing ulcer mons pubis to Pathology and Microbiology. Drains: None. Type of Anesthesia:: General - Admit VTE Documentation VTE Present on Admission: No VTE Mechan Device Prophylaxis: SCD's VTE Pharm Prophylaxis ordered?: No
[2017-10-19 10:41] VITALS: BP 136/87; BP 144/91; PULSE 105; RESP 16; TEMP 36.2; O2SAT 99
--- NOTE | 2017-10-19 10:41 | PCM.DC ---
You will use the following diet at home:: No restrictions Discharge Activity: May not drive while taking narcotic pain medications., May Not Shower - until the graft dressing is removed on the mons pubis area. Return to work on:: 10/21/17 - Tentative May shower in (days): 6 - may shower after graft dressing removed in wound center May resume sexual activity in: 10-14 days Weight Bearing Status: Weight bearing as tolerated Call your doctor if your incision/area has: Continuous Slow Oozing, Sudden Increased Bleeding, Increased Pain/ Swelling, Increased Redness, Foul Smelling Discharge, Swelling at the incision site Call your doctor if you observe: Fever of 101 or Higher, Coldness, Increased Pain, Shortness of breath, Chest pain, Calf discomfort, Uncontrolled pain Change Dressing in (Days):: 2 - right lateral abdominal wall dressing only Remove Dressing in (days):: 6 - will remove skin graft dressing on mons pubis in wound center Cleanse incision/area with: - - may get wounds wet in the shower after skin graft dressing on mons pubis removed in wound center. Allergies/Adverse Reactions: Allergies methocarbamol Allergy (Verified 10/18/17 08:46) Chest tightness gabapentin Adverse Reaction (Verified 10/18/17 08:46) MADE ME WALK SIDEWAYS ketorolac tromethamine [From Toradol] Adverse Reaction (Verified 10/18/17 08:46) Upset Stomach NSAIDS (Non-Steroidal Anti-Inflamma Adverse Reaction (Verified 10/18/17 08:46) gastric bipass not supposed to take tramadol Adverse Reaction (Verified 10/18/17 08:46) Upset Stomach Medications to take at Discharge Amitriptyline HCl [Elavil] 50 mg PO QHS PRN 04/30/17 Ergocalciferol [Vitamin D] 50,000 unit PO QWEEK 04/30/17 Etonogestrel [Nexplanon] 68 mg SQ UD 04/30/17 Potassium Chloride [K-Dur] 10 meq PO BID 04/30/17 Tamsulosin HCl [Flomax] 0.4 mg PO DAILY PRN 04/30/17 Lisinopril [Zestril] 40 mg PO BID 05/30/17 Ondansetron [Zofran Odt] 4 mg PO Q8H PRN PRN #20 tablet 06/01/17 Cyanocobalamin [Vitamin B12] 1,000 mcg IM Q30D 07/06/17 Hydrocodone/Acetaminophen [[place] 10-325 Tablet] 1 ea PO 4X/DAY PRN PRN 7 Days #30 tab 10/19/17 levoFLOXacin tablet [Levaquin tablet] 500 mg PO DAILY #14 tab 10/19/17 The following prescriptions were given: Hydrocodone/Acetaminophen [[place] 10-325 Tablet] 1 ea PO 4X/DAY PRN PRN 7 Days #30 tab PRN Reason: Pain levoFLOXacin tablet [Levaquin tablet] 500 mg PO DAILY #14 tab Primary Care Physician: Bethel Jauregui III, MD [Primary Care Provider] - Test Results: Test results from this visit will be discussed in further detail at your follow-up appointment, if applicable. Please Follow Up With: Gigi Mendieta MD - call [phone] if questions. When: wednesday10/25/[address] [facility]. Proposed Discharge Date: 10/19/17
[2017-10-19 10:45] VITALS: BP 129/98; BP 144/91; PULSE 107; RESP 16; O2SAT 100
--- NOTE | 2017-10-19 10:45 | DCINST_ITS ---
You will use the following diet at home:: No restrictions Discharge Activity: May not drive while taking narcotic pain medications., May Not Shower - until the graft dressing is removed on the mons pubis area. Return to work on:: 10/21/17 - Tentative May shower in (days): 6 - may shower after graft dressing removed in wound center May resume sexual activity in: 10-14 days Weight Bearing Status: Weight bearing as tolerated Call your doctor if your incision/area has: Continuous Slow Oozing, Sudden Increased Bleeding, Increased Pain/ Swelling, Increased Redness, Foul Smelling Discharge, Swelling at the incision site Call your doctor if you observe: Fever of 101 or Higher, Coldness, Increased Pain, Shortness of breath, Chest pain, Calf discomfort, Uncontrolled pain Change Dressing in (Days):: 2 - right lateral abdominal wall dressing only Remove Dressing in (days):: 6 - will remove skin graft dressing on mons pubis in wound center Cleanse incision/area with: - - may get wounds wet in the shower after skin graft dressing on mons pubis removed in wound center. Allergies/Adverse Reactions: Allergies methocarbamol Allergy (Verified 10/18/17 08:46) Chest tightness gabapentin Adverse Reaction (Verified 10/18/17 08:46) MADE ME WALK SIDEWAYS ketorolac tromethamine [From Toradol] Adverse Reaction (Verified 10/18/17 08:46) Upset Stomach NSAIDS (Non-Steroidal Anti-Inflamma Adverse Reaction (Verified 10/18/17 08:46) gastric bipass not supposed to take tramadol Adverse Reaction (Verified 10/18/17 08:46) Upset Stomach Medications to take at Discharge Amitriptyline HCl [Elavil] 50 mg PO QHS PRN 04/30/17 Ergocalciferol [Vitamin D] 50,000 unit PO QWEEK 04/30/17 Etonogestrel [Nexplanon] 68 mg SQ UD 04/30/17 Potassium Chloride [K-Dur] 10 meq PO BID 04/30/17 Tamsulosin HCl [Flomax] 0.4 mg PO DAILY PRN 04/30/17 Lisinopril [Zestril] 40 mg PO BID 05/30/17 Ondansetron [Zofran Odt] 4 mg PO Q8H PRN PRN #20 tablet 06/01/17 Cyanocobalamin [Vitamin B12] 1,000 mcg IM Q30D 07/06/17 Hydrocodone/Acetaminophen [[place] 10-325 Tablet] 1 ea PO 4X/DAY PRN PRN 7 Days # 30 tab 10/19/17 levoFLOXacin tablet [Levaquin tablet] 500 mg PO DAILY #14 tab 10/19/17 The following prescriptions were given: Hydrocodone/Acetaminophen [[place] 10-325 Tablet] 1 ea PO 4X/DAY PRN PRN 7 Days # 30 tab PRN Reason: Pain levoFLOXacin tablet [Levaquin tablet] 500 mg PO DAILY #14 tab Primary Care Physician: Bethel Jauregui III, MD [Primary Care Provider] - Test Results: Test results from this visit will be discussed in further detail at your follow- up appointment, if applicable. Please Follow Up With: Gigi Mendieta MD - call [phone] if questions. When: wednesday10/25/17 at 830am at [facility]. Proposed Discharge Date: 10/19/17
[2017-10-19 11:00] VITALS: BP 143/85; BP 144/91; PULSE 98; RESP 16; O2SAT 97
[2017-10-19 11:15] VITALS: BP 118/68; BP 144/91; PULSE 96; RESP 16; TEMP 36.1; O2SAT 100
[2017-10-19 11:34] VITALS: BP 144/91
--- NOTE | 2017-10-19 14:35 | PCM.WORK.EX ---
Work/School Excuse Work/School Excuse for:: Patient Please excuse this person from:: Work From: 10/19/17 through: 10/20/17 - Patient may return to work on 10/21/17. Restrictions: Other - None.
--- NOTE | 2017-10-20 14:38 | OP.PCM_ITS ---
Report of Operation Date of Procedure: 10/19/17 Pre-Operative Diagnosis: 1. Nonhealing painful infected ulcer vulva involving the mons pubis area. 2. 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 3. Lymphedema genitalia involving mons pubis. Post-Operative Diagnosis: Same. Surgery/Procedure Performed:: Surgical preparation vuvla involving the mons pubis area with excisional debridement nonhealing ulcer with STSG reconstruction from the right lateral abdominal wall (15 cm2) and placement of ANGIE NPWT. Description of Surgical Findings:: 2-year-old woman presents with a painful nonhealing ulcer lower anterior abdominal wall and pubic area after developing an infected hematoma that resulted in surgery on 05/03/17 where she underwent surgical preparation lower anterior abdominal wall and pubic area with incision and drainage and excisional debridement infected seroma/hematoma (250 cm2). Her initial surgery was on 04/20/17 where she underwent excision 8 cm painful soft tissue mass pubic area with 20 cm complex closure. Operative culture showed Staphylococcus aureus and was treated with antibiotics. After discharge, she had another culture done on 05/30/17 which showed Staphylococcus aureus and Morganella morganii and was treated with antibiotics. Her initial infected wound was treated with the VAC and then changed to Silver dressings daily because of too much pain with the VAC. During the wound care, the patient developed persistent swelling in her mons pubis area resulting in a lymphedema-type picture. It was recommended to the patient to excise this lymphedema tissue in her genitalia involving the mons pubis with a partial vulvectomy to help debulk the area which should help with her persistent pain in the nonhealing ulcer mons pubis area. On 07/20/17 she underwent surgical preparation vulva involving mons pubis with excision painful infected ulcer and excision associated painful lymphedema with partial vulvectomy (120 cm2). She has persistent pain in the area of the ulceration in the mons pubis area. Patient was informed of the risks and complications of the procedure including alternatives to surgery. These were discussed with the patient personally. Patient voices understanding and wishes to proceed. Size of skin graft mons pubis area - 6 x 2.5 cm. associate professor of media arts: Danyell Kelly. Type of Anesthesia:: General Specimen's removed: Nonhealing ulcer mons pubis to Pathology and Microbiology. Drains: None. Estimated Blood Loss (mL): 20 ml. Description of Procedure: The patient was taken to the OR in the supine position and was placed under general anesthesia. Her vulva and lower abdominal wall area was prepped and draped in the usual fashion. SCD's were placed for DVT prophylaxis. Perioperative antibiotics were given intravenously. Using xylocaine with epinephrine, the donor area on the right lateral abdominal wall and the vulva involving the mons pubis ulcer were infiltrated. After waiting 5 minutes for the anesthetic to take effect, I excised an ellipse of skin from the right lateral abdominal wall down into the subcutaneous tissue. I removed the subcutaneous tissue and the deeper dermis thus fashioning a thick split thickness skin graft. The skin graft was placed in saline. I excised some more subcutaneous tissue to aid in wound closure. Hemostasis was obtained with electrocautery. The wound was irrigated with saline. The donor incision was then closed in multiple layers with 2-0 Vicryl simple running suture for the Rubens's fascial layer. The deep dermis and subcutaneous tissue was approximated with 3-0 Monocryl interrupted sutures. The skin was approximated with 3-0 V-lock unidirectional barbed running subcuticular suture. This was followed with Histoacryl skin tissue adhesive. Gauze dressing was applied. I then excised the nonhealing ulcer vulva involving the mons pubis with a scalpel. A curette was also used. Good healthy bleeding was seen. Tissue was sent to Pathology for analysis to rule out carcinoma and tissue was sent to Microbiology for culture. A positive culture will necessitate antibiotic therapy. The size of the defect after the excisional debridement was 6 x 2.5 cm. The wound was irrigated with saline. The split thickness skin graft was then placed on stretch and meshed with a 15 blade. It was then placed on the ulcer and secured to the skin edges with 3-0 Chromic simple interrupted sutures. 3-0 Chromic sutures were also used for central quilting stabilization. Antibiotic ointment was applied to the skin graft followed by Mepitel nonadherent dressing. The ANGIE NPWT device was then placed over the graft for stabilization. Good suction was noted as the device was functioning. Patient tolerated the procedure well and was sent to PACU in satisfactory condition. She will be sent home on antibiotics and pain medication. She will followup at the Wound Center next week for take down of the ANGIE NPWT device and for a skin graft check and to discuss the pathology report and the microbiology report. A positive culture may necessitate antibiotic modification. Grafts/Implants Used: None. - Complications None. - Admit VTE Documentation VTE Present on Admission: No VTE Mechan Device Prophylaxis: SCD's VTE Pharm Prophylaxis ordered?: No Code Visit Surgery Charges CPT - 59809 ICD-10 - N76.6, I89.0 93840 N76.6, I89.0
== END 2017-10-19 11:50 | disposition home or self-care (01) ==
LOC: SDC 07:22 → AC 07:23
PROVIDERS: Anesthesiology; Family Provider Family Medicine; PCP Family Medicine; Visit Provider Surgery
PROC: (CPT 15004; principal; 2017-10-19 08:45)
DX: N76.6 Ulceration of vulva (principal); I89.0 Lymphedema, not elsewhere classified; R63.4 Abnormal weight loss; Z98.84 Bariatric surgery status; E55.9 Vitamin D deficiency, unspecified; Z86.14 Personal history of Methicillin resistant Staphylococcus aureus infection; R53.83 Other fatigue
CPT/HCPCS: 00940; 15004; 15120; 81025; 85027; 85610; 85730; 87070; 87075; 87077; 87102; 87186; 87205; 87206; 88304; J7120; J2405

== ENCOUNTER 2017-11-02 22:35 | Emergency (ER) | payer MEDICAID, SELFPAY ==
[2017-11-02 22:36] VITALS: BP 211/114; PULSE 90; RESP 17; TEMP 36.7; O2SAT 100; BMI 32.2
--- NOTE | 2017-11-02 23:19 | ED.DCSUM_ITS ---
- ER Visit Summary Date of Service: 11/02/17 Chief Complaint: Prior surgical wound check History of Present Illness: The patient is a 32 F history of obesity with prior gastric bypass in 230 pound weight loss. Patient has had multiple surgeries and about 2 weeks ago underwent a skin graft of her lower abdomen by Dr. Mendieta of plastic surgery. Patient was concerned due to the drainage in the area and the comfort. She denies any fever. She is on [place] at home for pain. Physical Examination: Well appearing young female. Vital signs are stable and afebrile. She does not look septic or toxic in any distress. H EENT exam unremarkable. Lungs clear to auscultation. Heart regular rhythm no murmur. Abdomen soft. Nondistended normal bowel sounds no peritoneal signs. Abdomen is soft in the suprapubic area she has a 4 x 6 area of a recent skin graft. It is healing. But it is raw skin. Currently I do not see any signs of any puslike drainage, or any cellulitis. Clinically does not look infected. She is moving all 4 extremities. Neurologically she is awake and alert. Test Results: None Emergency Department Course and Treatment: Patient's wound site is can take a long time to heal. I explained that to her. It does not look acutely infected at this time. I do not think she needs antibiotics. Nurses will clean and dress the wound. She has an upcoming appointment with Dr. cinthia Soni and less than a week. Treatment Plan: Wound care and follow-up with her plastic surgeon. Disposition: Discharge Impression: Pain at recent skin graft site This note was generated with [employer] dictation software. It may contain incorrect words, spelling, and punctuation that were not noted in review of the chart prior to signing ED Disposition - Plan for ED Patient: Chief Complaint: Wound Check Referrals: Bethel Jauregui III, MD [Primary Care Provider] -
--- NOTE | 2017-11-02 23:19 | ED.DEP ---
ED Disposition - Plan for ED Patient: Disposition: Home or Assisted Living Chief Complaint: Wound Check Instructions: ED Wound Check Post Op No Infec Referrals: Gigi Mendieta MD [STAFF PHYSICIAN] - Keep Tamanna appointment Additional Instructions: Keep wound clean and dry. Clean gently daily with soap and water or peroxide and water. Apply antibiotic ointment to the wound. Follow-up with Dr. vicente with your next scheduled appointment. Return if develops fever or redness to the abdominal wall but this time clinically does not look infected.
== END 2017-11-02 23:26 | disposition home or self-care (01) ==
PROVIDERS: Emergency Provider Emergency Medicine; Family Provider Family Medicine; PCP Family Medicine
DX: Z48.00 Encounter for change or removal of nonsurgical wound dressing (principal); Z98.84 Bariatric surgery status; I10 Essential (primary) hypertension
CPT/HCPCS: 99282

== ENCOUNTER 2017-11-08 09:15 | Outpatient (RCR) | payer MEDICAID, SELFPAY ==
[2017-10-20 00:42] VITALS: BP 111/76; PULSE 98; RESP 18; TEMP 36.4
[2017-10-20 14:39] VITALS: BP 142/79; PULSE 85; RESP 16; TEMP 36.9
[2017-10-25 08:25] VITALS: BP 154/99; PULSE 106; RESP 18; TEMP 37
--- NOTE | 2017-10-25 17:08 | PCM.WC.PN ---
Type of Wound Date of Service: 10/25/17 Chief Complaint: Nonhealing ulcer vulval and mons pubis area with recent skin grafting 10/19/17. History of Wound: Surgery 10/19/17 - Surgical preparation vulva involving the mons pubis area with excisional debridement nonhealing ulcer with STSG reconstruction from the right lateral abdominal wall (15 cm2) and placement of ANGIE NPWT. Wound care - ANGIE NPWT device. Operative culture - Staphylococcus aureus and Corynebacterium striatum. She was placed on Levaquin. Her preop culture from 10/04/17 showed Corynebacterium striatum and Corynebacterium amycolatum. Prealbumin from 07/21/17 was 25.9. Encourage nutritional supplementation with protein to help the healing process. Today she denies fever. Her appetite is good. Progress of Wound: Recent skin graft 10/19/17. - Physical Exam Vital Signs Temp Pulse Resp BP 98.6 F 106 H 18 154/99 H 10/25/17 08:25 10/25/17 08:25 10/25/17 08:25 10/25/17 08:25 Wound Measurements and Assessment WC - Nurse 1 - General Ulcer Measurement Start: 10/20/17 14:39 Freq: Status: Active Protocol: Activity Type Activity Date Activity User E-Sign Co-Sign Detail Recorded Client Recorded Date Recorded By Document 10/25/17 08:25 [id number] 10/25/17 08:26 [email or web address] 10/25/17 08:25 Wound Center Nurse 1 [Ulcer Assessment] #1 Lower Abdomen -Combined with other wound No -Current Size (cm) - Length 0.1 -Current Size (cm) - Width 0.1 -Current Size (cm) - Depth 0.1 -Total Square Cm 0.01 -Photo Taken Yes -Epithelialization Large 67-100% -Tunneling No -Undermining/Tunneling No -Circular Undermining No -Exudate Amt Medium (34-66%) -Exudate Type Serosanguineous -Wound Margin Flat & Intact -Granulation Amt Large (67-100%) -Granulation Quality Red -Slough/Fibrin Yes -Necrosis Amt Small (1-33%) -Necrotic Tissue Type Adherent Slough -Structure Exposed N/A -Texture ([place]-wound Skin Appearance) Assessed -Moisture ([place]-wound Skin Appearance Assessed ) Dry/Scaly -Color ([place]-wound Skin Appearance) Assessed Ecchymosis -Temperature ([place]-wound Skin No Abnormality Appearance) (Pt Warm) -Tenderness on Palpation ([place]-wound No Skin Appearance) -Ulcer Cleansing Wound Cleanser -Foul Odor after Cleansing No [Edema Assessment] -Lower Limb Edema Present NA - Nurse 2 - General Ulcer CM Notes Start: 10/20/17 14:39 Freq: Status: Active Protocol: Activity Type Activity Date Activity User E-Sign Co-Sign Detail Recorded Client Recorded Date Recorded By Document 10/25/17 08:36 [id number] 10/25/17 08:40 10/25/17 08:36 Wound Center Nurse 2 [Procedure/Treatment] #1 Lower Abdomen -Correct Patient No -Correct Side, Site, Position No -Correct Procedure No -Procedure Performed No -Post Debridement Size (cm) - Length 0.1 -Post Debridement Size (cm) - Width 0.1 -Post Debridement Size (cm) - Depth 0.1 -Total Square Cm 0.01 -Wound/Ulcer Outcome Not Healed -Bleeding Controlled with Pressure -Treatment Response Procedure Tolerated Well [See Physician Procedure note for Specifics] Pain Scale: 0-10 Numeric [Pain] -Is Patient Pain Free? Yes Debridement Note Post-Debridement Measurements/Treatment - Nurse 2 - General Ulcer CM Notes Start: 10/20/17 14:39 Freq: Status: Active Protocol: Activity Type Activity Date Activity User E-Sign Co-Sign Detail Recorded Client Recorded Date Recorded By Document 10/25/17 08:36 [id number] 10/25/17 08:40 10/25/17 08:36 Wound Center Nurse 2 #1 Lower Abdomen -Correct Patient No -Correct Side, Site, Position No -Correct Procedure No -Procedure Performed No -Post Debridement Size (cm) - Length 0.1 -Post Debridement Size (cm) - Width 0.1 -Post Debridement Size (cm) - Depth 0.1 -Total Square Cm 0.01 -Wound/Ulcer Outcome Not Healed -Bleeding Controlled with Pressure -Treatment Response Procedure Tolerated Well Pain Scale: 0-10 Numeric Is Patient Pain Free? Yes Wound debrided: #1 Vulval and mons pubis area. Laterality: Not Applicable Wound Grade/Stage: 2. No debridement was completed today - the ulcer was recently skin grafted on 10/19/17. The skin graft shows good adherence with 98% take. There is good vascular ingrowth. The donor incision right lateral abdominal wall is dry and intact and healing. Assessment/Plan Assessment: 1. Nonhealing painful infected ulcer vulva involving the mons pubis area. 2. 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 3. Lymphedema genitalia involving mons pubis. 4. s/p surgical preparation vulva involving the mons pubis area with excisional debridement nonhealing ulcer with STSG reconstruction from the right lateral abdominal wall (15 cm2) and placement of ANGIE NPWT. 5. History of MRSA. Plan: Skin graft shows good adherence and 98% take. There is good vascular ingrowth. The ANGIE NPWT device was removed. Apply Bactroban ointment to the skin graft daily. Donor incision right lateral abdominal wall is dry and intact and healing. Operative culture showed Staphylococcus aureus. She was placed on Levaquin and will continue them. Prealbumin from 07/21/17 was 25.9. Encourage nutritional supplementation with protein to help the healing process. Renewed her [place] for pain, 10 mg (30 tabs). Followup 2 weeks.
[2017-11-08 09:33] VITALS: BP 191/99; PULSE 81; RESP 16; TEMP 36.6
--- NOTE | 2017-11-08 22:34 | PCM.WC.PN ---
Type of Wound Date of Service: 11/08/17 Chief Complaint: Nonhealing ulcer vulval and mons pubis area with recent skin grafting 10/19/17. History of Wound: Surgery 10/19/17 - Surgical preparation vulva involving the mons pubis area with excisional debridement nonhealing ulcer with STSG reconstruction from the right lateral abdominal wall (15 cm2) and placement of ANGIE NPWT. Wound care - ANGIE NPWT device. Operative culture - Staphylococcus aureus and Corynebacterium striatum. She was placed on Levaquin. Her preop culture from 10/04/17 showed Corynebacterium striatum and Corynebacterium amycolatum. Prealbumin from 07/21/17 was 25.9. Encourage nutritional supplementation with protein to help the healing process. Today she denies fever. Her appetite is good. She states she has intermittent pain and drainage and has difficulty at work. Progress of Wound: Recent skin graft 10/19/17. - Physical Exam Vital Signs Temp Pulse Resp BP 97.8 F 81 16 191/99 H 11/08/17 09:33 11/08/17 09:33 11/08/17 09:33 11/08/17 09:33 Wound Measurements and Assessment WC - Nurse 1 - General Ulcer Measurement Start: 10/20/17 14:39 Freq: Status: Active Protocol: Activity Type Activity Date Activity User E-Sign Co-Sign Detail Recorded Client Recorded Date Recorded By Document 11/08/17 09:33 [facility] [id number] 11/08/17 09:39 [facility] 11/08/17 09:33 Wound Center Nurse 1 [Ulcer Assessment] #1 Lower Abdomen -Combined with other wound No -Current Size (cm) - Length 5.7 -Current Size (cm) - Width 1.4 -Current Size (cm) - Depth 0.1 -Total Square Cm 7.98 -Photo Taken No -Epithelialization Small 1-33% -Tunneling No -Undermining/Tunneling No -Circular Undermining No -Exudate Amt Small (1-33%) -Exudate Type Serosanguineous -Wound Margin Distinct, Outline Attached -Granulation Amt Small (1-33%) -Granulation Quality Red -Slough/Fibrin Yes -Necrosis Amt Large (67-100%) -Necrotic Tissue Type Adherent Slough -Structure Exposed N/A -Texture ([place]-wound Skin Appearance) Scarring -Moisture ([place]-wound Skin Appearance Dry/Scaly ) -Color ([place]-wound Skin Appearance) Assessed -Temperature ([place]-wound Skin No Abnormality Appearance) (Pt Warm) -Tenderness on Palpation ([place]-wound Yes Skin Appearance) -Ulcer Cleansing Rinsed/ Irrigated with Saline -Foul Odor after Cleansing No -Anesthetic Used 4% Lidocaine Solution - Nurse 2 - General Ulcer CM Notes Start: 10/20/17 14:39 Freq: Status: Active Protocol: Activity Type Activity Date Activity User E-Sign Co-Sign Detail Recorded Client Recorded Date Recorded By Document 11/08/17 10:24 [id number] 11/08/17 10:28 11/08/17 10:24 Wound Center Nurse 2 [Procedure/Treatment] -Time 10:25 -Correct Patient Yes -Correct Side, Site, Position Yes -Correct Procedure Yes -Procedure Performed Yes -Type of Procedure Debridement -Clinical Debridement Selective -Post Debridement Size (cm) - Length 0.1 -Post Debridement Size (cm) - Width 0.1 -Post Debridement Size (cm) - Depth 0.1 -Total Square Cm 0.01 -Wound/Ulcer Outcome Not Healed -Ulcer Cleansing Rinsed/ Irrigated with Saline -Foul Odor after Cleansing No -Bioengineered Tissue No -Bleeding Controlled with Pressure -Treatment Response Procedure Tolerated Well [See Physician Procedure note for Specifics] Pain Scale: 0-10 Numeric [Pain] -Is Patient Pain Free? Yes Debridement Note Post-Debridement Measurements/Treatment - Nurse 2 - General Ulcer CM Notes Start: 10/20/17 14:39 Freq: Status: Active Protocol: Activity Type Activity Date Activity User E-Sign Co-Sign Detail Recorded Client Recorded Date Recorded By Document 10/25/17 08:36 [id number] 10/25/17 08:40 Document 11/08/17 10:24 [id number] 11/08/17 10:28 10/25/17 11/08/17 08:36 10:24 Wound Center Nurse 2 #1 Lower Abdomen -Time 10:25 -Correct Patient No Yes -Correct Side, Site, Position No Yes -Correct Procedure No Yes -Procedure Performed No Yes -Type of Procedure Debridement -Clinical Debridement Selective -Post Debridement Size (cm) - Length 0.1 0.1 -Post Debridement Size (cm) - Width 0.1 0.1 -Post Debridement Size (cm) - Depth 0.1 0.1 -Total Square Cm 0.01 0.01 -Wound/Ulcer Outcome Not Healed Not Healed -Ulcer Cleansing Rinsed/ Irrigated with Saline -Foul Odor after Cleansing No -Bioengineered Tissue No -Bleeding Controlled with Pressure Pressure -Treatment Response Procedure Procedure Tolerated Well Tolerated Well Pain Scale: 0-10 Numeric Is Patient Pain Free? Yes Yes Wound debrided: #1 Vulval and mons pubis area. Laterality: Not Applicable Wound Grade/Stage: 2. Type of Debridement: Selective debridement Anesthesia Used: 4% Lidocaine Solution Depth: - - scabbing tissue at the level of the skin graft. Percentage of wound debrided: 100 Instrument Used: 3mm curette Tissue Removed: scabbing tissue at the level of the skin graft. Severity: Limited To Skin Breakdown - scabbing tissue at the level of the skin graft. Amount of bleeding with debridement: Mild Bleeding Controlled with: Pressure Patient tolerated procedure well Assessment/Plan Assessment: 1. Nonhealing painful infected ulcer vulva involving the mons pubis area. 2. 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 3. Lymphedema genitalia involving mons pubis. 4. s/p surgical preparation vulva involving the mons pubis area with excisional debridement nonhealing ulcer with STSG reconstruction from the right lateral abdominal wall (15 cm2) and placement of ANGIE NPWT. 5. History of MRSA. Plan: Skin graft shows good adherence and 95% take. There is good vascular ingrowth. Continue Bactroban ointment to the skin graft daily. Donor incision right lateral abdominal wall is healing. Operative culture showed Staphylococcus aureus. She was placed on Levaquin and will continue them. Prealbumin from 07/21/17 was 25.9. Encourage nutritional supplementation with protein to help the healing process. She has complaints of pain and drainage from the skin graft. The skin graft is dry and healing well. She will see her PCP for a pain management referral. Followup 4 weeks.
== END 2017-11-19 23:59 ==
LOC: WC 09:15
PROVIDERS: Family Provider Family Medicine; PCP Family Medicine; Visit Provider Surgery
DX: L98.491 Non-pressure chronic ulcer of skin of other sites limited to breakdown of skin (principal); Z98.84 Bariatric surgery status; Z86.14 Personal history of Methicillin resistant Staphylococcus aureus infection; I89.0 Lymphedema, not elsewhere classified
CPT/HCPCS: 97597; 99212; 99213; G0463

== ENCOUNTER 2018-01-17 12:59 | Outpatient (RCR) | payer MEDICAID, SELFPAY ==
[2018-01-17 08:45] VITALS: BP 162/84; PULSE 94; RESP 16; TEMP 36.9
== END 2018-01-19 13:02 | disposition home or self-care (01) ==
LOC: WC 12:59
PROVIDERS: Family Provider Family Medicine; PCP Family Medicine; Referring Provider Surgery; Visit Provider Surgery
DX: Z09 Encounter for follow-up examination after completed treatment for conditions other than malignant neoplasm (principal)
CPT/HCPCS: 99212; G0463

== ENCOUNTER 2018-04-12 18:11 | Emergency (ER) | payer MEDICAID, SELFPAY ==
[2018-04-12 18:11] VITALS: BMI 32.4
[2018-04-12 18:13] VITALS: BP 183/121; PULSE 106; RESP 17; TEMP 37; O2SAT 97; BMI 35.2
--- NOTE | 2018-04-12 18:35 | EKG12_ITS ---
Test Reason : PALPITATIONS Blood Pressure : / mmHG Vent. Rate : 100 BPM Atrial Rate : 100 BPM P-R Int : 134 ms QRS Dur : 086 ms QT Int : 358 ms P-R-T Axes : 052 033 018 degrees QTc Int : 461 ms Normal sinus rhythm Normal ECG Confirmed by PONCHO BROWN, BLANCA ([id number]), movie editor CHE EVANS ([id number]) on 04/15/2018 2:15:10 PM Referred By: ERIBERTO Confirmed By:BLANCA ISAAC MD
--- NOTE | 2018-04-12 18:40 | RAD_ITS ---
STUDY: X-RAY CHEST REASON FOR EXAM: Female, 33 years old. Palpitations TECHNIQUE: Frontal view of the chest COMPARISON: 05/21/2017. FINDINGS: The lungs are clear. There are no pleural effusions. There is no pneumothorax. The heart is normal in size. The visualized osseous structures are within normal limits. RAD/Chest 1 View (Portable) IMPRESSION: No acute thoracic pathology. Electronically Signed: Fan Whaley, at 19:14 EST Tel , Service support ,
[2018-04-12 19:08] LABS: Absolute Neutrophil Count 5.4 X10^3/uL (2.0-7.7); Basophil# 0.05 X10^3/uL; Basophil% 0.6 % (0-1); Eosinophils% 1.3 % (0-5); Hematocrit 32.4 % (37-47); Hemoglobin 9.6 g/dl (12.0-15.0); Lymphocyte % 20.1 % (19-41); Mean Corp Hgb Conc 29.6 g/gl (32-36); Mean Corpuscular Hgb 21.1 pg (27.0-32.0); Mean Corpuscular Volume 71.4 fL (81-99); Monocyte# 0.81 X10^3/uL; Monocyte% 10.2 % (0-10); Neutrophil # 5.41 X10^3/uL (2.7-7.7); Neutrophil % 67.7 % (47-70); Platelet Count 488 K/mm3 (150-450); RBC Distribution Width CV 16.6 % (11.6-14.6); RBC Distribution Width SD 43.3 fl (35.1-43.9); Red Blood Count 4.54 M/mm3 (4.2-5.4)
[2018-04-12 19:11] VITALS: BP 177/92; PULSE 94; RESP 16; O2SAT 95
[2018-04-12 19:15] LABS: Anion Gap 8 (5-15); BUN 17 mg/dL (7-18); BUN/Creat Ratio 24.9 RATIO (10-20); Calcium,Total 8.4 mg/dL (8.5-10.1); Chloride 106 mmol/L (98-107); Creatinine, Serum 0.68 mg/dL (0.55-1.02); Differential Indicated SCAN CRITERIA MET; EST Glomerular Filtration Rate 106 mL/min (>60); Est Glom Filt Rate - Afr Amer 128 mL/min (>60); Estimated Creatinine Clearance 111.19 ml/min; Glucose 95 mg/dL (74-106); POSITIVE COUNT NO; POSITIVE DIFFERENTIAL NO; POSITIVE MORPHOLOGY YES; Sodium Level 139 mmol/L (136-145)
[2018-04-12 19:28] LABS: D-Dimer Quantitative (DVT/PE) < 0.27 FEU/ug/m (0.27-0.49)
[2018-04-12 19:32] LABS: Anisocytosis 1+; Hypochromasia 1+; Microcytosis 1+; Platelet Estimate SLT INC (ADEQ); Target Cells RARE
[2018-04-12 19:34] LABS: Pregnancy, Serum, hCG Quali. NEGATIVE Negative (0-9 Nonpreg)
[2018-04-12 20:00] VITALS: BP 170/83; PULSE 80; RESP 16; O2SAT 98
[2018-04-12 20:51] LABS: Thyroid Stim Hormone (TSH) 5.58 uIU/mL (0.358-3.74)
[2018-04-12 21:00] VITALS: BP 148/92; PULSE 85; RESP 16; O2SAT 98
--- NOTE | 2018-04-12 21:14 | ED.DCSUM_ITS ---
- ER Visit Summary Date of Service: 04/12/18 Chief Complaint: Palpitations History of Present Illness: The patient is a 33 F who woke this morning with pounding heart and fast heart rate. She states her systolic blood pressure was around 200 and her heart rate was 100. She has had similar episodes throughout the day, lasting 15-20 minutes. She reports some mild chest tightness. Patient does report recent weight loss with gastric bypass surgery. Her blood pressure has been well controlled usually in the 120 range. It was last checked 4 days ago. She denies any caffeine intake or change in [id number] medications. Physical Examination: Vital signs significant for blood pressure of 183/121 with a heart rate of 106. Patient sitting upright in bed no acute distress. Head neck examination normal. Heart is regular rate and rhythm. Lung sounds are clear. Abdomen is soft and nontender. Extremity examination was strong and equal distal pulses throughout. Test Results: Portable chest x-ray unremarkable. EKG is sinus at [address] change. CBC was normal white count with a hemoglobin of 9.6. Chemistry studies normal. Troponin negative. D-dimer negative. test negative. TSH is mildly elevated at 5.58. Emergency Department Course and Treatment: Patient received labetalol 10 mg IV. Blood pressure did improve, but not until quite some time had passed after she was given labetalol. I am not positive that the drop in blood pressure was secondary to the medication. At discharge blood pressure is 148/92 with a heart rate of 86. Patient has been in contact with her primary care physician who wants to see her for close follow-up. She will check her blood pressure at home and monitor frequently. Treatment Plan: [] Disposition: Discharge Impression: Palpitations This note was generated with [employer] dictation software. It may contain incorrect words, spelling, and punctuation that were not noted in review of the chart prior to signing ED Disposition - Plan for ED Patient: Disposition: Home or Assisted Living Chief Complaint: Palpitations Instructions: ED Palpitations Referrals: Bethel Jauregui III, MD [Primary Care Provider] - As soon as possible
[2018-04-12 21:17] VITALS: BP 148/92; PULSE 86; RESP 16; O2SAT 98
--- OUTSIDE RECORDS SUMMARY | 2018-06-14 23:30 | XMS RPT_ITS ---
:1985 Author Organization [facility] Support Name Relationship Address Phone MIC PENG Unavailable [address] + [place] [address] DANISH, LIU Unavailable Unavailable + [place] [address] HAMPTONINN Unavailable [address] + [place] [address] COBFER, IMC Unavailable Unavailable + COBLENRASHEED, MIC Unavailable Unavailable + COBFER, MIC Unavailable Unavailable + COBFER, MIC Unavailable [address] + [place] [address] COBPRASADTZ, LIU Unavailable Unavailable + [place] [address] HAMPTONINN Unavailable [address] + [place] [address] COBLENRASHEED, MIC Unavailable [address] + [place] [address] COBLENTZ, LIU Unavailable Unavailable + [place] [address] HAMPTONINN Unavailable [address] + [place] [address] COBFER, MIC Unavailable [address] + [place] [address] COBLENTZ, LIU Unavailable Unavailable + [place] [address] HAMPTONINN Unavailable [address] + [place] [address] COBFER, MIC Unavailable [address] + [place] [address] COBLENTZ, LIU Unavailable Unavailable + [place] [address] HAMPTONINN Unavailable [address] + [place] [address] COBLENTZ, MIC Unavailable [address] + [place] [address] COBLENTZ, LIU Unavailable Unavailable + [place] [address] HAMPTONINN Unavailable [address] + [place] [address] COBLENTZ, MIC Unavailable [address] + [place] [address] COBLENTZ, LIU Unavailable Unavailable + [place] [address] HAMPTONINN Unavailable [address] + [place] [address] COBLENTZ, MIC Unavailable [address] + [place] [address] COBLENTZ, LIU Unavailable Unavailable + [place] [address] HAMPTONINN Unavailable [address] + [place] [address] COBLENTZ, MIC Unavailable [address] + [place] [address] COBLENTZ, LIU Unavailable Unavailable + [place] [address] HAMPTONINN Unavailable [address] + [place] [address] COBLENTZ, MIC Unavailable [address] + [place] [address] COBLENTZ, LIU Unavailable Unavailable + [place] [address] HAMPTONINN Unavailable [address] + [place] [address] COBLENTZ, MIC Unavailable [address] + [place] [address] COBLENTZ, LIU Unavailable . + [place] [address] HAMPTONINN Unavailable [address] + [place] [address] COBLENTZ, MIC Unavailable [address] + [place] [address] COBLENTZ, LIU Unavailable Unavailable + [place] [address] HAMPTONINN Unavailable [address] + [place] [address] COBLENTZ, MIC Unavailable [address] + [place] [address] COBLENTZ, LIU Unavailable . + [place] [address] HAMPTONINN Unavailable [address] + [place] [address] COBLENTZ, MIC Unavailable [address] + [place] [address] COBLENTZ, LIU Unavailable . + [place] [address] HAMPTONINN Unavailable [address] + [place] [address] COBLENTZ, MIC Unavailable [address] + [place] [address] COBLENTZ, LIU Unavailable Unavailable + [place] [address] HAMPTONINN Unavailable [address] + [place] [address] COBLENTZ, MIC Unavailable [address] + [place] [address] COBLENTZ, LIU Unavailable . + [place] [address] HAMPTONINN Unavailable [address] + [place] [address] COBLENTZ, MIC Unavailable [address] + [place] [address] COBLENTZ, LIU Unavailable Unavailable + [place] [address] HAMPTONINN Unavailable [address] + [place] [address] COBLENTZ, MIC Unavailable [address] + [place] [address] COBLENTZ, LIU Unavailable . + [place] [address] HAMPTONINN Unavailable [address] + [place] [address] COBLENTZ, MIC Unavailable [address] + [place] [address] COBLENTZ, LIU Unavailable Unavailable + [place] [address] HAMPTONINN Unavailable [address] + [place] [address] COBLENTZ, MIC Unavailable [address] + [place] [address] COBLENTZ, LIU Unavailable . + [place] [address] HAMPTONINN Unavailable [address] + [place] [address] COBLENTZ, MIC Unavailable [address] + [place] [address] COBLENTZ, LIU Unavailable [address] + [place] [address] HAMPTONINN Unavailable [address] + [place] [address] COBLENTZ, MIC Unavailable [address] + [place] [address] COBLENTZ, LIU Unavailable . + [place] [address] HAMPTONINN Unavailable [address] + [place] [address] COBLENTZ, MIC Unavailable [address] + [place] [address] COBLENTZ, LIU Unavailable . + [place] [address] H[place]PTONINN Unavailable [address] + [place] [address] COBLENTZ, MIC Unavailable [address] + [place] [address] COBLENTZ, LIU Unavailable [address] + [place] [address] HAMPTONINN Unavailable [address] + [place] [address] COBLENTZ, MIC Unavailable [address] + [place] [address] COBLENTZ, LIU Unavailable [address] + [place] [address] HAMPTONINN Unavailable [address] + [place] [address] COBLENTZ, MIC Unavailable [address] + [place] [address] COBFER, LIU Unavailable Unavailable + [place] [address] HAMPTONINN Unavailable [address] + [place] [address] COBFER, MIC Unavailable [address] + [place] [address] COBLENTZ, LIU Unavailable [address] + [place] [address] HAMPTONINN Unavailable [address] + [place] [address] COBFER, MIC Unavailable [address] + [place] [address] COBFER, LIU Unavailable Unavailable + [place] [address] HAMPTONINN Unavailable [address] + [place] [address] DANISH, MIC Unavailable [address] + [place] [address] COBLENTZ, LIU Unavailable [address] + [place] [address] HAMPTONINN Unavailable [address] + [place] [address] DANISH, MIC Unavailable [address] + [place] [address] COBLENRASHEED, LIU Unavailable [address] + [place] [address] HAMPTONINN Unavailable [address] + [place] [address] COBFER, MIC Unavailable [address] + [place] [address] COBLENTZ, LIU Unavailable [address] + [place] [address] HAMPTONINN Unavailable [address] + [place] [address] COBFER, MIC Unavailable [address] + [place] [address] COBLENTZ, LIU Unavailable [address] + [place] [address] HAMPTONINN Unavailable [address] + [place] [address] COBFER, MIC Unavailable [address] + [place] [address] COBFER, LIU Unavailable [address] + [place] [address] HAMPTONINN Unavailable [address] + [place] [address] COBFER, MIC Unavailable [address] + [place] [address] COBLENTZ, LIU Unavailable [address] + [place] [address] HAMPTONINN Unavailable [address] + [place] [address] DANISH, MIC Unavailable [address] + [place] [address] COBFER, LIU Unavailable [address] + [place] [address] HAMPTONINN Unavailable [address] + [place] [address] DANISH, MIC Unavailable [address] + [place] [address] COBFER, LIU Unavailable [address] + [place] [address] HAMPTONINN Unavailable [address] + [place] [address] DANISH, MIC Unavailable [address] + [place] [address] DANISH, LIU Unavailable [address] + [place] [address] HAMPTONINN Unavailable [address] + [place] [address] COBFER, MIC Unavailable [address] + [place] [address] COBFER, LIU Unavailable [address] + [place] [address] HAMPTONINN Unavailable [address] + [place] [address] DANISH, MIC Unavailable [address] + [place] [address] COBFER, LIU Unavailable [address] + [place] [address] HAMPTONINN Unavailable [address] + [place] [address] DANISH, MIC Unavailable [address] + [place] [address] COBFER, LIU Unavailable [address] + [place] [address] HAMPTONINN Unavailable [address] + [place] [address] DANISH, MIC Unavailable [address] + [place] [address] COBFER, LIU Unavailable [address] + [place] [address] HAMPTONINN Unavailable [address] + [place] [address] DANISH MIC Unavailable [address] + [place] [address] DANISH LIU Unavailable [address] + [place] [address] HAMPTONINN Unavailable [address] + [place] [address] DANISH MIC Unavailable [address] + [place] [address] DANISH LIU Unavailable [address] + [place] [address] HAMPTONINN Unavailable [address] + [place] [address] DANISH MIC Unavailable [address] + [place] [address] DANISH, LIU Unavailable [address] + [place] [address] HAMPTONINN Unavailable [address] + [place] [address] DANISH MIC Unavailable [address] + [place] [address] DANISH, LIU Unavailable [address] + [place] [address] HAMPTONINN Unavailable [address] + [place] [address] COBLENTZ, MIC Unavailable [address] + [place] [address] COBFER, LIU Unavailable [address] + [place] [address] HAMPTONINN Unavailable [address] + [place] [address] DANISH, MIC Unavailable [address] + [place] [address] COBFER, LIU Unavailable [address] + [place] [address] H[place]N Unavailable [address] + [place] [address] DANISH, MIC Unavailable [address] + [place] [address] COBFER, LIU Unavailable [address] + [place] [address] H[place]N Unavailable [address] + [place] [address] DANISH, MIC Unavailable [address] + [place] [address] COBLENRASHEED, LIU Unavailable [address] + [place] [address] HAMPTONINN Unavailable [address] + [place] [address] DANISH MIC Unavailable [address] + [place] [address] COBFER, LIU Unavailable [address] + [place] [address] HAMPTONINN Unavailable [address] + [place] [address] DANISH, MIC Unavailable [address] + [place] [address] COBLENRASHEED, LIU Unavailable [address] + [place] [address] H[place]INN Unavailable [address] + [place] [address] DANISH, MIC Unavailable [address] + [place] [address] COBFER, LIU Unavailable [address] + [place] [address] HAMPTONINN Unavailable [address] + [place] [address] COBLENTZ, MIC Unavailable [address] + [place] [address] COBLENTZ, LIU Unavailable [address] + [place] [address] HAMPTONINN Unavailable [address] + [place] [address] COBLENTZ, MIC Unavailable [address] + [place] [address] COBLENTZ, LIU Unavailable [address] + [place] [address] HAMPTONINN Unavailable [address] + [place] [address] COBLENTZ, MIC Unavailable [address] + [place] [address] COBLENTZ, LIU Unavailable [address] + [place] [address] HAMPTONINN Unavailable [address] + [place] [address] Care Team Providers Name Role Phone Cebul III, Susana Primary Care Unavailable Estefania Reyna Attending Unavailable Gigi Mendieta Attending Unavailable Gigi Mendieta Referring Unavailable Cebul III, Susana Primary Care Unavailable Gigi Mendieta Consulting Unavailable Gigi Mendieta Admitting Unavailable Gigi Mendieta Attending Unavailable Cebul III, Susana Primary Care Unavailable Gigi Mendieta Consulting Unavailable Gigi Mendieta Admitting Unavailable Salvatore Reyes Attending Unavailable Cebul III, Susana Primary Care Unavailable Paintsil, Lafayette Consulting Unavailable Saeid Davis Consulting Unavailable Jose FranciscoManuel canoiet Consulting Unavailable Mohamed, Bonilla Consulting Unavailable Renetta, Ricardo Consulting Unavailable Gigi Mendieta Consulting Unavailable Gigi Mendieta Admitting Unavailable Salvatore Reyes Attending Unavailable Cebul III, Susana Primary Care Unavailable Paintsil, Lafayette Consulting Unavailable Ryan, Saeid Consulting Unavailable Jose Francisco, Emilie Consulting Unavailable Mohamed, Bonilla Consulting Unavailable Renetta, Ricardo Consulting Unavailable William Renee Consulting Unavailable Bakhous, Aziz Consulting Unavailable Gigi Mendieta Consulting Unavailable Gigi Mendieta Admitting Unavailable Gigi Mendieta Attending Unavailable Cebul III, Susana Primary Care Unavailable Víctor, William Consulting Unavailable Bakhous, Aziz Consulting Unavailable Jopperi, Salvatore Consulting Unavailable Cebul III, Susana Primary Care Unavailable Timmy Winters Attending Unavailable Dago Abarca Attending Unavailable Cebul III, Susana Primary Care Unavailable SOTO ARAYA Attending Unavailable SlabGigi carter Attending Unavailable Cebul III, Susana Primary Care Unavailable Cebul III, Susana Primary Care Unavailable Estefania Reyna Attending Unavailable Gigi Mendieta Admitting Unavailable Slabemma, Gigi Attending Unavailable Cebul III, Susana Primary Care Unavailable Víctor, William Consulting Unavailable Bakhous, Aziz Consulting Unavailable Jopperi, Salvatore Consulting Unavailable Gayatri, Gigi Attending Unavailable Cebul III, Susana Primary Care Unavailable Gayatri, Gigi Consulting Unavailable Gigi Mendieta Attending Unavailable Cebul III, Susana Primary Care Unavailable Gigi Mendieta Consulting Unavailable Gigi Mendieta Attending Unavailable Cebul III, Susana Primary Care Unavailable Gigi Mendieta Consulting Unavailable Cebul III, Susana Primary Care Unavailable Adonis Morillo Attending Unavailable Cebul III, Suasna Primary Care Unavailable Saeid Mai Attending Unavailable Cebul III, Susana Primary Care Unavailable Brian Clark Attending Unavailable Gigi Mendieta Attending Unavailable Cebul III, Susana Primary Care Unavailable Gigi Mendieta Consulting Unavailable Gigi Mendieta Attending Unavailable Cebul III, Susana Primary Care Unavailable Gigi Mendieta Consulting Unavailable Gigi Mendieta Attending Unavailable Cebul III, Susana Primary Care Unavailable Gigi Mendieta Attending Unavailable Gigi Mendieta Referring Unavailable Cebul III, Susana Primary Care Unavailable Gigi Mendieta Consulting Unavailable Gigi Mendieta Attending Unavailable Gigi Mendieta Referring Unavailable Cebul III, Susana Primary Care Unavailable Gigi Mendieta Attending Unavailable Cebul III, Susana Primary Care Unavailable Gigi Mendieta Attending Unavailable Cebul III, Susana Primary Care Unavailable Gigi Mendieta Attending Unavailable Gigi Mendieta Referring Unavailable Cebul III, Susana Primary Care Unavailable Gigi Mendieta Consulting Unavailable Gigi Mendieta Attending Unavailable Gigi Mendieta Referring Unavailable Cebul III, Susana Primary Care Unavailable Gigi Mendieta Consulting Unavailable Cebul III, Susana Primary Care Unavailable Darline Griggs Attending Unavailable Gigi Mendieta Attending Unavailable Cebul III, Susana Primary Care Unavailable Cebul III, Susana Primary Care Unavailable Domitila Gillespie Attending Unavailable Gigi Mendieta Attending Unavailable Cebul III, Susana Primary Care Unavailable Cebul III, Susana Primary Care Unavailable Brian Clark Attending Unavailable SlabGigi carter Attending Unavailable Cebul III, Susana Referring Unavailable Cebul III, Susana Primary Care Unavailable SlabGigi carter Admitting Unavailable Salvatore Reyes Attending Unavailable Cebul III, Susana Primary Care Unavailable Paintsil, [place] Consulting Unavailable Ryan, Saeid Consulting Unavailable Jose Francisco, Emilie Consulting Unavailable Mohamed, Bonilla Consulting Unavailable Renetta, Ricardo Consulting Unavailable Víctor, William Consulting Unavailable Bakhous, Aziz Consulting Unavailable Salvatore Reyes Consulting Unavailable Gigi Mendieta Admitting Unavailable SlabGigi carter Attending Unavailable Cebul III, Susana Primary Care Unavailable Paintsil, [place] Consulting Unavailable Ryan, Saeid Consulting Unavailable Jose Francisco, Emilie Consulting Unavailable Mohamed, Bonilla Consulting Unavailable Renetta, Ricardo Consulting Unavailable Víctor, William Consulting Unavailable Bakhous, Aziz Consulting Unavailable KorMaribel howell Piedad Consulting Unavailable Gigi Mendieta Admitting Unavailable Salvatore Reyes Attending Unavailable Cebul III, Susana Primary Care Unavailable Paintsil, [place] Consulting Unavailable Ryan, Saeid Consulting Unavailable Jose Francisco, Emilie Consulting Unavailable Mohamed, Bonilla Consulting Unavailable Renetta, Ricardo Consulting Unavailable Víctor, William Consulting Unavailable Bakhous, Aziz Consulting Unavailable Gigi Mendieta Consulting Unavailable Gigi Mendieta Admitting Unavailable Gigi Mendieta Attending Unavailable Cebul III, Susana Primary Care Unavailable Gigi Mendieta Consulting Unavailable Gigi Mendieta Attending Unavailable Gigi Mendieta Referring Unavailable Cebul III, Susana Primary Care Unavailable Gigi Mendieta Consulting Unavailable Gigi Mendieta Attending Unavailable Cebul III, Susana Referring Unavailable Salvatore Reyes Attending Unavailable Cebul III, Susana Primary Care Unavailable Gigi Mendieta Admitting Unavailable Paintsil, [place] Consulting Unavailable Ryan, Saeid Consulting Unavailable Jose Francisco, Emilie Consulting Unavailable Mohamed, Bonilla Consulting Unavailable Renetta, Ricardo Consulting Unavailable Víctor, William Consulting Unavailable Bakdinahs, Aziz Consulting Unavailable Gigi Mendieta Attending Unavailable Gigi Mendieta Referring Unavailable Cebul III, Susana Primary Care Unavailable Gigi Mendieta Consulting Unavailable Cebul III, Susana Primary Care Unavailable Bacilio Mae Attending Unavailable Gigi Mendieta Attending Unavailable Gigi Mendieta Referring Unavailable Cebul III, Susana Primary Care Unavailable SlabGigi carter Attending Unavailable SlabGigi carter Referring Unavailable Cebul III, Susana Primary Care Unavailable Slabemma, Gigi Attending Unavailable Cebul III, Susana Primary Care Unavailable Slaby, Gigi Consulting Unavailable Slaby, Gigi Attending Unavailable Cebul III, Susana Primary Care Unavailable Slaby, Gigi Consulting Unavailable Slaby, Gigi Attending Unavailable Cebul III, Susana Primary Care Unavailable Slaby, Gigi Consulting Unavailable Slabemma, Gigi Attending Unavailable Cebul III, Susana Primary Care Unavailable Slaby, Gigi Consulting Unavailable Slaby, Gigi Attending Unavailable Cebul III, Susana Primary Care Unavailable Slaby, Gigi Consulting Unavailable Slaby, Gigi Attending Unavailable Cebul III, Susana Primary Care Unavailable Slaby, Gigi Consulting Unavailable Slaby, Gigi Attending Unavailable Cebul III, Susana Primary Care Unavailable Slaby, Gigi Consulting Unavailable Cebul III, Susana Primary Care Unavailable Cm Leyva Attending Unavailable Slaby, Gigi Attending Unavailable Cebul III, Susana Primary Care Unavailable Slaby, Gigi Attending Unavailable Cebul III, Susana Referring Unavailable Cebul III, Susana Primary Care Unavailable Slabemma, Gigi Attending Unavailable Slabemma, Gigi Referring Unavailable Cebul III, Susana Primary Care Unavailable DOMINGA CAMPOS Attending Unavailable CEBUL MD, SUSANA A III Primary Care Unavailable JITENDRA PATEL Attending Unavailable JITENDRA PATEL Referring Unavailable CEBUL III, SUSANA A Referring Unavailable CEBUL III, SUSANA A Attending Unavailable CEBUL III, SUSANA A Referring Unavailable CEBUL III, SUSANA A Referring Unavailable CEBUL III, SUSANA A Referring Unavailable CEBUL III, SUSANA A Attending Unavailable CEBUL III, SUSANA A Referring Unavailable CEBUL III, SUSANA A Referring Unavailable CEBUL III, SUSANA A Referring Unavailable CEBUL III, SUSANA A Attending Unavailable CEBUL III, SUSANA A Referring Unavailable CEBUL III, SUSANA A Referring Unavailable CEBUL III, SUSANA A Attending Unavailable CEBUL III, SUSANA A Attending Unavailable CEBUL III, SUSANA A Attending Unavailable CEBUL III, SUSANA A Referring Unavailable CEBUL III, SUSANA A Attending Unavailable CEBUL III, SUSANA A Attending Unavailable BRYCE CAMPOS (MARINE PAINTER) Referring Unavailable CEBUL III, SUSANA A Attending Unavailable PROBLEMS PROBLEMS DATE TYPE CONDITION / CODE ATTENDING STATUS SOURCE 02/21/2018 Active Dysuria / NA Active [facility] R30.0(ICD-10) [facility] [place] Repository 05/31/2017 Active Deficiency of other NA Active [facility] specified B group [facility] Main vitamins / [place] E53.8(ICD-10) Repository 12/29/2017 Active Unspecified renal NA Active [facility] colic / N23(ICD-10) [facility] [place] Repository 12/29/2017 Active Unspecified NA Active [facility] abdominal pain / Clinic Main R10.9(ICD-10) [place] Repository 10/20/2017 Unknown G89.18 - Other acute JavedemmaGigi Active [facility] pain [facility] / G89.18(ICD-10) Hospital Repository 12/05/2017 Unknown L98.499 - Gigi Mendieta Active [facility] Non-pressure chronic Community ulcer of skin of Hospital other sites with Repository unspecified severity / L98.499(ICD-10) 12/05/2017 Unknown S30.1XXA - Contusion JavedemmaiGgi Active [facility] of abdominal wall, Community initial encounter / Hospital S30.1XXA(ICD-10) Repository 12/05/2017 Unknown L98.492 - Gigi Mendieta Active [facility] Non-pressure chronic Community ulcer of skin of Hospital other sites with fat Repository layer exposed / L98.492(ICD-10) 08/02/2017 Active Hypokalemia / NA Active [facility] E87.6(ICD-10) [facility] Main [place] Repository 07/06/2017 Active Unspecified NA Active [facility] protein-calorie Clinic Main malnutrition / [place] E46(ICD-10) Repository 06/04/2017 Active Unknown / NA Active [facility] UNK(Unknown) [facility] Main [place] Repository 05/04/2017 Active Moderate NA Active [facility] protein-calorie [facility] Main malnutrition / [place] E44.0(ICD-10) Repository 05/04/2017 Active Other iron NA Active [facility] deficiency anemias / Clinic Main D50.8(ICD-10) [facility] Repository 09/05/2015 Active Bariatric surgery NA Active [facility] status / Clinic Main Z98.84(ICD-10) [facility] Repository 05/11/2011 Active Fatty (change of) NA Active [facility] liver, not elsewhere Clinic Main classified / [place] K76.0(ICD-10) Repository 05/18/2017 Active Acute kidney NA Active [facility] failure, unspecified Clinic Main / N17.9(ICD-10) [place] Repository 06/02/2017 Unknown L76.34 - Gigi Mendieta Active [facility] seroma of skin and Hospital subcutaneous tissue Repository following other procedure / L76.34(ICD-10) 05/02/2017 Unknown R22.9 - Localized Gigi Mendieta swelling, mass and Community lump, unspecified / Hospital R22.9(ICD-10) Repository 04/21/2017 Unknown E65 - Localized Gigi Mendieta Active [facility] adiposity / Community E65(ICD-10) Hospital Repository 04/21/2017 Unknown R63.4 - Abnormal Gigi Mendieta Active [facility] weight loss / Community R63.4(ICD-10) Hospital Repository 04/21/2017 Unknown L30.4 - Erythema Gigi Mendieta [facility] intertrigo / Community L30.4(ICD-10) Hospital Repository PROCEDURES PROCEDURES No Procedure Records FoundRESULTS RESULTS PROGRESS Observed: 04/14/2018 Status: COMPLETED Source: [facility] 11:02 AM [facility] REPOSITORY HNO ID: [id number] Author: Susana Diaz III Service: (none) Author Type: Physician Type: Progress Notes Filed: 04/14/2018 1:14 PM Note Text: SUBJECTIVE: This is a 33 year old female that is here today for ER Follow Up. 04/12/18. ER records reviewed. Developed palpitations with sys BP 200. TSH 5.58 troponin neg. Hb 9.6 She was treated with IV labetalol. 2. s/p L thyroid lobectomy.. 3. pain management--5 mm cut down her daily dose of hydrocodone 2 tablets per day. However, when she has renal colic she uses up to 5 per day. Lengthy discussion regarding the dilemma in her pain management insofar as Tylenol is not effective and she is unable to take NSAIDs since her bariatric surgery. We discussed the opiate-induced hyperalgesia which can occur. We discussed the recent change in the law and the need for tightened surveillance of chronic narcotic use. 4. ch renal stones--has to take norco 5/day sometimes while passing a stone so she ran out of norco early. She has been to a urologist and nephrology to discuss her frequent renal stones. There has been no solution to the fact that she produces a lot of kidney stones. PAST MEDICAL HISTORY Diagnosis Date - BENIGN HYPERTENSION 11/16/2006 - Calcium oxalate renal stones 2009 - Calculus of ureter 09/30/2007 s/p URS and stent with hydro. - Cervical disc disorder with radiculopathy 04/15/2010 - Chronic postoperative pain 02/27/201603/2015, gastric bypass surgery. 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 Chronic post op (gastric bypass) pain - Lumbar disc disorder with myelopathy 06/04/2010 - Moderate protein-calorie malnutrition (HCC) 05/04/2017 - Morbid obesity with BMI of 50.0-59.9, adult ([facility]) 09/12/2014 - Non-alcoholic fatty liver disease - OBESITY NOS 06/01/2005 - Obstructive sleep apnea Approval received from [facility] 02/01/2015 for CPAP @ 10 approval - 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 HYDROcodone-acetaminophen (NORCO) 5-325 mg per tablet Take 1 tablet by mouth twice daily as needed for Pain (max 2/day) for up to 30 days.Earliest Fill Date: 03/26/18 amitriptyline (ELAVIL) 50 mg tablet Take 1 tablet by mouth daily at bedtime. metoprolol succinate ER (TOPROL XL) 25 mg 24 hr tablet Take 1 tablet by mouth once daily. hydrOXYzine HCl (ATARAX) 25 mg tablet Take 1 tablet by mouth at bedtime as needed for Itching/Rash or Anxiety (sleep). potassium citrate ER (UROCIT-K 10) 10 mEq (1,080 mg) TbER Take 1 tablet by mouth twice daily. tamsulosin ER (FLOMAX) 0.4 mg cp24 0.8mg by mouth once per day only as needed for renal colic lisinopril (ZESTRIL) 40 mg tablet Take 1 tablet by mouth twice daily. cyanocobalamin (VITAMIN B-12) 1,000 mcg/mL soln Inject 1 mL intramuscularly once every month. 1 DOSE MONTHLY ferrous sulfate 325 mg (65 mg iron) tablet Take 1 tablet by mouth twice daily with meals. (Patient taking differently: Take 150 mg by mouth twice daily with meals. ) ketoconazole (NIZORAL) 2 % cream Apply 1 application to affected area twice daily. cholecalciferol, Vitamin D3, (VITAMIN D3) 50,000 unit cap capsule one capsule once/wk amLODIPine (NORVASC) 10 mg tablet Take 1 tablet by mouth once daily. ETONOGESTREL (NEXPLANON SDRM) by SUBDERMAL route. HYDROcodone-acetaminophen (NORCO) 5-325 mg per tablet Take 1 tablet by mouth every 6 hours as needed for Pain for up to 7 days. HYDROcodone-acetaminophen (NORCO) 5-325 mg per tablet Take 1 tablet by mouth twice daily as needed for Pain (max 2/day) for up to 30 days. HYDROcodone-acetaminophen (NORCO) 5-325 mg per tablet Take 1 tablet by mouth twice daily as needed for Pain (max 2/day) for up to 30 days.Earliest Fill Date: 02/23/18 Current Facility-Administered Medications on File Prior to Visit: cyanocobalamin 1,000 mcg injection FAMILY HISTORY Problem Relation Age of Onset - other (Brain tumor) Mother Benign - Hypertension Father - Diabetes Father - other (Diverticulitis) Father - COPD Paternal Grandfather - Colon Cancer Paternal Grandfather - Diabetes Maternal Grandfather - other (Kidney stone) Maternal Uncle - other (ESRD) Other Maternal cousin. Agenesic/atrophic kidney Social History Substance Use Topics - Smoking status: Never Smoker - Smokeless tobacco: Never Used - Alcohol use Yes Comment: rarely-2 drinks per month BP 162/90 (BP Site: Right Arm, BP Position: Sitting, BP Cuff Size: Regular Adult) Pulse 78 Resp 18 Wt 98.9 kg (218 lb) LMP 02/26/2018 BMI 35.19 kg/m? OBJECTIVE: APPEARANCE Well appearing, alert, in no acute distress, well-hydrated, well nourished. and Obese ASSESSMENT: Chronic pain management?narcotic use has decreased over time especially since she has had healing of her surgical wounds. History recurrent renal stones Status post left thyroid lobectomy with elevated TSH Recent ER visit with tachycardia?probably secondary to pain of renal colic Hypertension?not at goal hypothyroidism--new dx PLAN: use norco sparingly as needed for chronic pain and for renal stone pain stay well hydrated start labetolol 100mg twice/day --check home BP and progress report 1 wk return to office 2 mos to monitor use of controlled substance start levothyroxine 25 mcg daily--recheck TSH 2 mos. 30 min visit JANE Barton MD, III MD CNOV Observed: 04/14/2018 Status: COMPLETED Source: [place] 10:40 AM [facility] REPOSITORY Office Visit (FAMPWS) TRAMAINE PENG ([id number]) 1985 F Date Time Provider Department 04/14/18 10:40 AM SUSANA DIAZ III During your visit today, we recorded the following information about you: Pulse Respiration Blood pressure Weight 78/minute 18/minute 162/90 98.9 kg Last Period 02/26/18 Susana Diaz III MD 04/14/2018 1:14 PM Signed SUBJECTIVE: This is a 33 year old female that is here today for ER Follow Up. 04/12/18. ER records reviewed. Developed palpitations with sys BP 200. TSH 5.58 troponin neg. Hb 9.6 She was treated with IV labetalol. 2. s/p L thyroid lobectomy.. 3. pain management--5 mm cut down her daily dose of hydrocodone 2 tablets per day. However, when she has renal colic she uses up to 5 per day. Lengthy discussion regarding the dilemma in her pain management insofar as Tylenol is not effective and she is unable to take NSAIDs since her bariatric surgery. We discussed the opiate-induced hyperalgesia which can occur. We discussed the recent change in the law and the need for tightened surveillance of chronic narcotic use. 4. ch renal stones--has to take norco 5/day sometimes while passing a stone so she ran out of norco early. She has been to a urologist and nephrology to discuss her frequent renal stones. There has been no solution to the fact that she produces a lot of kidney stones. PAST MEDICAL HISTORY Diagnosis Date - BENIGN HYPERTENSION 11/16/2006 - Calcium oxalate renal stones 2009 - Calculus of ureter 09/30/2007 s/p URS and stent with hydro. - Cervical disc disorder with radiculopathy 04/15/2010 - Chronic postoperative pain 02/27/201603/2015, gastric bypass surgery. 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 Chronic post op (gastric bypass) pain - Lumbar disc disorder with myelopathy 06/04/2010 - Moderate protein-calorie malnutrition (HCC) 05/04/2017 - Morbid obesity with BMI of 50.0-59.9, adult ([facility]) 09/12/2014 - Non-alcoholic fatty liver disease - OBESITY NOS 06/01/2005 - Obstructive sleep apnea Approval received from [facility] 02/01/2015 for CPAP @ 10 approval - 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 HYDROcodone-acetaminophen (NORCO) 5-325 mg per tablet Take 1 tablet by mouth twice daily as needed for Pain (max 2/day) for up to 30 days.Earliest Fill Date: 03/26/18 amitriptyline (ELAVIL) 50 mg tablet Take 1 tablet by mouth daily at bedtime. metoprolol succinate ER (TOPROL XL) 25 mg 24 hr tablet Take 1 tablet by mouth once daily. hydrOXYzine HCl (ATARAX) 25 mg tablet Take 1 tablet by mouth at bedtime as needed for Itching/Rash or Anxiety (sleep). potassium citrate ER (UROCIT-K 10) 10 mEq (1,080 mg) TbER Take 1 tablet by mouth twice daily. tamsulosin ER (FLOMAX) 0.4 mg cp24 0.8mg by mouth once per day only as needed for renal colic lisinopril (ZESTRIL) 40 mg tablet Take 1 tablet by mouth twice daily. cyanocobalamin (VITAMIN B-12) 1,000 mcg/mL soln Inject 1 mL intramuscularly once every month. 1 DOSE MONTHLY ferrous sulfate 325 mg (65 mg iron) tablet Take 1 tablet by mouth twice daily with meals. (Patient taking differently: Take 150 mg by mouth twice daily with meals. ) ketoconazole (NIZORAL) 2 % cream Apply 1 application to affected area twice daily. cholecalciferol, Vitamin D3, (VITAMIN D3) 50,000 unit cap capsule one capsule once/wk amLODIPine (NORVASC) 10 mg tablet Take 1 tablet by mouth once daily. ETONOGESTREL (NEXPLANON SDRM) by SUBDERMAL route. HYDROcodone-acetaminophen (NORCO) 5-325 mg per tablet Take 1 tablet by mouth every 6 hours as needed for Pain for up to 7 days. HYDROcodone-acetaminophen (NORCO) 5-325 mg per tablet Take 1 tablet by mouth twice daily as needed for Pain (max 2/day) for up to 30 days. HYDROcodone-acetaminophen (NORCO) 5-325 mg per tablet Take 1 tablet by mouth twice daily as needed for Pain (max 2/day) for up to 30 days.Earliest Fill Date: 02/23/18 Current Facility-Administered Medications on File Prior to Visit: cyanocobalamin 1,000 mcg injection FAMILY HISTORY Problem Relation Age of Onset - other (Brain tumor) Mother Benign - Hypertension Father - Diabetes Father - other (Diverticulitis) Father - COPD Paternal Grandfather - Colon Cancer Paternal Grandfather - Diabetes Maternal Grandfather - other (Kidney stone) Maternal Uncle - other (ESRD) Other Maternal cousin. Agenesic/atrophic kidney Social History Substance Use Topics - Smoking status: Never Smoker - Smokeless tobacco: Never Used - Alcohol use Yes Comment: rarely-2 drinks per month BP 162/90 (BP Site: Right Arm, BP Position: Sitting, BP Cuff Size: Regular Adult) Pulse 78 Resp 18 Wt 98.9 kg (218 lb) LMP 02/26/2018 BMI 35.19 kg/m? OBJECTIVE: APPEARANCE Well appearing, alert, in no acute distress, well- hydrated, well nourished. and Obese ASSESSMENT: Chronic pain management?narcotic use has decreased over time especially since she has had healing of her surgical wounds. History recurrent renal stones Status post left thyroid lobectomy with elevated TSH Recent ER visit with tachycardia?probably secondary to pain of renal colic Hypertension?not at goal hypothyroidism--new dx PLAN: use norco sparingly as needed for chronic pain and for renal stone pain stay well hydrated start labetolol 100mg twice/day --check home BP and progress report 1 wk return to office 2 mos to monitor use of controlled substance start levothyroxine 25 mcg daily--recheck TSH 2 mos. 30 min visit JANE Barton MD, III MD Frank A Cebul, III MD 04/14/2018 11:32 AM Signed PLAN: use norco sparingly as needed for chronic pain and for renal stone pain stay well hydrated start labetolol 100mg twice/day --check home BP and progress report 1 wk return to office 2 mos to monitor use of controlled substance Susana Diaz III MD Referring Provider: SELF [[id number]] Allergies As of Date: 04/14/2018 Noted Allergy Reaction TORADOL (KETOROLAC TROMETHAMINE) 05/30/2015 8 - GI Upset GABAPENTIN 02/27/2016 14 - Other: See Comments Comments: Cognitive intolerance METHOCARB 04/01/2016 14 - Other: See Comments TRAMADOL 10/17/2013 8 - GI Upset Date Reviewed: 04/14/2018 Reviewed by: Ni Razo - Fully Assessed Reason for Visit: Hospital F/U [57] Cmt: BP high, heart issues, thyroid labs elevated in hospital. Primary Visit Diagnosis:Essential hypertension, benign [I10] Other Visit Diagnoses:Calcium oxalate renal stones [N20.0] 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 [Z79.891] Chronic postoperative pain [G89.28] Vitamin B 12 deficiency [E53.8] Renal colic [N23] Postoperative hypothyroidism [E89.0] Order(s):labetalol (TRANDATE) 100 mg tabletTake 1 tablet by mouth twice daily.Disp: 60 tabletRfl: 11 HYDROcodone-acetaminophen (NORCO) 5-325 mg per tabletTake 1 tablet by mouth twice daily as needed for Pain for up to 30 days.Disp: 60 tabletRfl: 0 levothyroxine (SYNTHROID) 25 mcg tabletTake 1 tablet by mouth once daily. Take on empty stomach. For thyroid.Disp: 30 tabletRfl: 11 TSH BLD [SQTSH] Order #: [id number] FUTURE Prescriptions as of 04/14/2018 Sig: LIDOCAINE 4 % TOPICAL GEL Apply 1 Tube to affected area* HYDROCODONE 5 MG-ACETAMINOPHE* Take 1 tablet by mouth twice * AMITRIPTYLINE 50 MG TABLET Take 1 tablet by mouth daily * METOPROLOL SUCCINATE ER 25 MG* Take 1 tablet by mouth once d* HYDROXYZINE HCL 25 MG TABLET Take 1 tablet by mouth at bed* POTASSIUM CITRATE ER 10 MEQ (* Take 1 tablet by mouth twice * TAMSULOSIN 0.4 MG CAPSULE 0.8mg by mouth once per day o* LISINOPRIL 40 MG TABLET Take 1 tablet by mouth twice * CYANOCOBALAMIN (VIT B-12) 1,0* Inject 1 mL intramuscularly o* FERROUS SULFATE 325 MG (65 MG* Take 1 tablet by mouth twice * Patient taking differently: Take 150 mg by mouth twice da* KETOCONAZOLE 2 % TOPICAL CREAM Apply 1 application to affect* CHOLECALCIFEROL (VITAMIN D3) * one capsule once/wk AMLODIPINE 10 MG TABLET Take 1 tablet by mouth once d* NEXPLANON SDRM by SUBDERMAL route. 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] INVALID FOR*07/04/2015 BENIGN HYPERTENSION [I10] INVALID FOR* Intractable migraine without aura [G43.019] INVALID FOR*01/24/2018 Cervical disc disorder with radiculopathy [M50.*INVALID FOR*09/07/2016 Lumbar disc disorder with myelopathy [M51.06] INVALID FOR*09/07/2016 Calcium oxalate renal stones [N20.0] INVALID FOR* Non-alcoholic fatty liver disease [K76.0] Vitamin D deficiency [E55.9] INVALID FOR*09/07/2016 Hyperparathyroidism due to vitamin D deficiency*INVALID FOR*09/07/2016 Gallbladder sludge [K82.8] INVALID FOR*11/09/2013 Physical deconditioning [R53.81] INVALID FOR*09/07/2016 Post-cholecystectomy syndrome [K91.5] INVALID FOR*09/07/2016 GARRY (obstructive sleep apnea) [G47.33] INVALID FOR*09/07/2016 Nasal turbinate hypertrophy [J34.3] INVALID FOR*01/24/2018 ADD (attention deficit disorder) [F98.8] INVALID FOR*09/07/2016 More... 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 Chronic postoperative pain [G89.28] INVALID FOR* More... Bleeding [R58] INVALID FOR*10/14/2016 More... Cellulitis of abdominal wall [L03.311] INVALID FOR*12/23/2016 Vitamin D deficiency [E55.9] INVALID FOR* Hyperuricuria [R82.998] INVALID FOR* Hyperuricosuria [R82.993] INVALID FOR* Hyperoxaluria (HCC) [R82.992] INVALID FOR* Renal calculi [N20.0] INVALID FOR* Iron deficiency anemia secondary to inadequate *INVALID FOR* Moderate protein-calorie malnutrition (HCC) [E4*INVALID FOR*04/14/2018 Renal colic [N23] INVALID FOR* Vitamin B 12 deficiency [E53.8] INVALID FOR* Status post bariatric surgery [Z98.84] INVALID FOR* Intertrigo [L30.4] INVALID FOR* Acute kidney failure, unspecified (HCC) [N17.9] INVALID FOR* Chronic pain disorder [G89.4] INVALID FOR* Hypertension [I10] INVALID FOR* Localized adiposity [E65] INVALID FOR* halfway (current) use of opiate analgesic [Z7*INVALID FOR* Cyst of ovary [N83.209] INVALID FOR* Postoperative hypothyroidism [E89.0] INVALID FOR* More... Other instructions from your clinician: PLAN: use norco sparingly as needed for chronic pain and for renal stone pain stay well hydrated start labetolol 100mg twice/day --check home BP and progress report 1 wk return to office 2 mos to monitor use of controlled substance Susana Diaz III MD Prescriptions ordered this encounter Disp Refills Start End LABETALOL 100 MG TABLET 60 t* 11 04/14/2018 Route: ORAL Sig: Take 1 tablet by mouth twice daily. HYDROCODONE 5 MG-ACETAMINOPHEN 325 M* 60 t* 0 04/14/2018 05/14/2018 Class: Print RX Cmt: early fill due to recent renal colic Route: ORAL Sig: Take 1 tablet by mouth twice daily as needed for Pain for up to 30 days. LEVOTHYROXINE 25 MCG TABLET 30 t* 11 04/14/2018 Route: ORAL Sig: Take 1 tablet by mouth once daily. Take on empty stomach. For thyroid. Encounter Status:Closed by SUSANA DIAZ III, MD on 04/14/18 EMERGENCY DEPARTMENT Observed: 04/13/2018 Status: F Source: [place] SUMMARY 2:44 PM [facility] REPOSITORY [facility] Medical Records Department [address] [place] [address] Emergency Department Summary 04/12/18 2114 MR#: [id number] Acct: [id number] Name: TRAMAINE PENG Rep #: [id number] : 1985 33 From: Estefania Reyna MD PCP: Susana Diaz III, MD Status: DEP ER - ER Visit Summary Date of Service: 04/12/18 Chief Complaint: Palpitations History of Present Illness: The patient is a 33 F who woke this morning with pounding heart and fast heart rate. She states her systolic blood pressure was around 200 and her heart rate was 100. She has had similar episodes throughout the day, lasting 15-20 minutes. She reports some mild chest tightness. Patient does report recent weight loss with gastric bypass surgery. Her blood pressure has been well controlled usually in the 120 range. It was last checked 4 days ago. She denies any caffeine intake or change in iebl-wef-[id number] medications. Physical Examination: Vital signs significant for blood pressure of 183/121 with a heart rate of 106. Patient sitting upright in bed no acute distress. Head neck examination normal. Heart is regular rate and rhythm. Lung sounds are clear. Abdomen is soft and nontender. Extremity examination was strong and equal distal pulses throughout. Test Results: Portable chest x-ray unremarkable. EKG is sinus at [address] change. CBC was normal white count with a hemoglobin of 9.6. Chemistry studies normal. Troponin negative. D-dimer negative. test negative. TSH is mildly elevated at 5.58. Emergency Department Course and Treatment: Patient received labetalol 10 mg IV. Blood pressure did improve, but not until quite some time had passed after she was given labetalol. I am not positive that the drop in blood pressure was secondary to the medication. At discharge blood pressure is 148/92 with a heart rate of 86. Patient has been in contact with her primary care physician who wants to see her for close follow-up. She will check her blood pressure at home and monitor frequently. Treatment Plan: [] Disposition: Discharge Impression: Palpitations This note was generated with Snapwiz dictation software. It may contain incorrect words, spelling, and punctuation that were not noted in review of the chart prior to signing ED Disposition - Plan for ED Patient: Disposition: Home or Assisted Living Chief Complaint: Palpitations Instructions: ED Palpitations Referrals: Susana Diaz III, MD [Primary Care Provider] - As soon as possible What to do if you have Problems For any increased pain, shortness of breath, bleeding, nausea or vomiting, chest pain, or any unexpected problems, contact your Primary Care Provider. Call [facility] ([phone]) or report to the closest Emergency Room. Call 911 if necessary. 04/13/18 4165 <Electronically signed by Estefania Reyna MD> Date Estefania Reyna MD Cosigner Signature (If Indicated): Date CC: Susana Diaz III, MD DISCHARGE INSTRUCTION Observed: 04/12/2018 Status: F Source: [place] 9:15 PM [facility] HOSPITAL REPOSITORY [facility] Medical Records Department [address] [place] [address] Discharge Instruction 04/12/182113 MR#: [id number] Acct: [id number] Name: TRAMAINE PENG Rep #: [id number] : 1985 33 From: Estefania Reyna MD PCP: Susana Diaz III, MD Status: REG ER ED Disposition - Plan for ED Patient: Disposition: Home or Assisted Living Chief Complaint: Palpitations Instructions: ED Palpitations Referrals: Susana Diaz III, MD [Primary Care Provider] - As soon as possible What to do if you have Problems For any increased pain, shortness of breath, bleeding, nausea or vomiting, chest pain, or any unexpected problems, contact your Primary Care Provider. Call [facility] ([phone]) or report to the closest Emergency Room. Call 911 if necessary. 04/12/182114 <Electronically signed by Estefania Reyna MD> Date Estefania Reyna MD Cosigner Signature (If Indicated): Date CC: Susana Diaz III, MD THYROID STIM HORMONE Collected: 04/12/2018 Status: F Source: [place] (TSH) 6:50 PM [facility] HOSPITAL REPOSITORY TYPE CODE TESTS RESULT OUT OF RANGE REFERENCE UNITS LAB L501.9520 0.358-3.74 uIU/mL High TSH 5.58 Performed By: #### L501.9520 #### [facility] [place], [place], [address] CBC W/DIFF, AUTOMATED Collected: 04/12/2018 Status: F Source: [place] 6:40 PM [facility] REPOSITORY TYPE CODE TESTS RESULT OUT OF RANGE REFERENCE UNITS LAB L100.1000 4.4-11.0 K/mm3 Normal WBC 8.0 LAB L100.1200 4.2-5.4 M/mm3 Normal RBC 4.54 LAB L100.1300 12.0-15.0 g/dl Low HGB 9.6 LAB L100.1400 37-47 % Low HCT 32.4 LAB L100.1500 81-99 fL Low MCV 71.4 LAB L100.1600 27.0-32.0 pg Low MCH 21.1 LAB L100.1700 32-36 g/gl Low MCHC 29.6 LAB L100.1810 11.6-14.6 % High RDW CV 16.6 LAB L100.1820 35.1-43.9 fl Normal RDW SD 43.3 LAB L100.1900 150-450 K/mm3 High PLT 488 LAB L100.2000 6.2-12.0 fl Normal MPV 11.0 LAB L100.2100 47-70 % Normal NEUT% 67.7 LAB L100.2200 19-41 % Normal LY% 20.1 LAB L100.2300 0-10 % High MONO% 10.2 LAB L100.2400 0-5 % Normal EO% 1.3 LAB L100.2500 0-1 % Normal BASO% 0.6 LAB L100.2550 0.0-0.9 % Normal IM GRAN % 0.100 Result Comment: IG% - Immature Granulocytes (promyelocytes, myelocytes and metamyelocytes) > 1% indicates that a LEFT SHIFT is Present. LAB L100.2620 2.0-7.7 X10 3/uL Absolute Neut Normal 5.4 LAB L100.2720 0.83-4.51 X10 3/ul Absolute Lymph Normal 1.60 LAB L100.5500 ADEQ PLT EST Normal SLT INC LAB L100.7300 ANISO Normal 1+ LAB L100.7600 HYPOCHROMASIA Normal 1+ LAB L100.7700 MICROCYTES Normal 1+ LAB L100.8600 TARGET CELLS Normal RARE Performed By: #### L100.0100 #### [facility] [address] [place], [place], [id number] BASIC METABOLIC Collected: 04/12/2018 Status: F Source: [place] PROFILE (BMP) 6:40 PM [facility] REPOSITORY TYPE CODE TESTS RESULT OUT OF RANGE REFERENCE UNITS LAB L501.0100 74-106 mg/dL Normal GLU 95 Result Comment: Please note revised GLUCOSE reference range effective 2017. LAB L501.1000 7-18 mg/dL Normal BUN 17 LAB L501.1100 0.55-1.02 mg/dL Normal CREAT,SERUM 0.68 Result Comment: The validity of the calculated GFR AND GFRAA in patients over 70 years has not been determined. Clinical correlation is essential. LAB L501.1110 >60 mL/min Normal EST GFR 106 Result Comment: Non- GFR Calc LAB L501.1115 >60 mL/min Normal EST GFR - AA 128 Result Comment: GFR Calc LAB L501.1255 ml/min Normal Estimated CRCL 111.19 LAB L501.1300 10-20 RATIO High BUN/CRE 24.9 LAB L501.2200 8.5-10 mg/dL Low .1 CA 8.4 LAB L501.5300 136-14 mmol/L 5 NA Normal 139 LAB L501.5600 3.5-5. mmol/L 1 K Normal 4.0 LAB L501.5900 98-107 mmol/L CL Normal 106 LAB L501.6100 21.0-3 mmol/L 2.0 CO2 Normal 25.0 LAB L501.6200 5-15 GAP Normal 8 Performed By: #### L500.2500, L501.4010 #### [facility] [address] [place], [address] TROPONIN-I Collected: 04/12/2018 Status: F Source: [place] 6:40 PM [facility] REPOSITORY TYPE CODE TESTS RESULT OUT OF RANGE REFERENCE UNITS LAB L501.4010 <0.045 ng/mL Normal < 0.015 TROPONIN-I Result Comment: TROPONIN-I EXPECTED VALUES <0.045 Negative 0.045 - 0.590 Consistent with Cardiac Damage > OR = 0.600 Critical Value Not every elevated troponin is indicative of CT. These values should be used with clinical judgement in examining the patient's clinical picture for diagnosis. To establish a diagnosis of CT versus myocardial injury, there must be a demonstrated rise and/or fall in the troponin values, in addition to ischemic symptoms, EKG changes, new regional wall motion abnormality, and/or angiographical evidence. PLEASE NOTE: REFERENCE RANGES EDITED 17 Performed By: #### L500.2500, L501.4010 #### [facility] [address]. [place], [place], [id number] D-DIMER QUANTITATIVE Collected: 04/12/2018 Status: F Source: [place] (DVT/PE) 6:40 PM [facility] REPOSITORY TYPE CODE TESTS RESULT OUT OF RANGE REFERENCE UNITS LAB L300.8000 0.27-0.49 FEU/ug/m Low D-DIMER < 0.27 QUANT Result Comment: NORMAL D-Dimer level (<0.50) indicates no DVT or PE. Performed By: #### L300.8000 #### [facility] [facility]. [place], [place], [id number] ,SERUM,HCG QUALI. Collected: Status: F Source: [place] 04/12/2018 6:40 PM [facility] REPOSITORY TYPE CODE TESTS RESULT OUT OF REFERENCE UNITS RANGE LAB L700.6700 =>Qualitative mIU/mL Normal HCG Qual < 1 triggr LAB L700.7000 0-9 Nonpreg Negative Normal HCGSQUAL NEGATIVE Performed By: #### L700.6800 #### [facility] [address] [facility]. [place], [place], [address] CHEST 1 VIEW Observed: 04/12/2018 Status: F Source: [place] (PORTABLE) 6:36 PM [facility] REPOSITORY [facility] Imaging Services [address] [place] [id number] Chest 1 View (Portable) MR#: [id number] Acct: [id number] Name: TRAMAINE PENG Rep #: [id number] : 1985 F 33 From: Fan Whaley MD PCP: Susana Diaz III, MD Status: REG ER Study: Chest 1 View (Portable) Date of Exam: 04/12/18 Exam# [id number] Ordering Dr: Estefania Reyna MD STUDY: X-RAY CHEST REASON FOR EXAM: Female, 33 years old. Palpitations TECHNIQUE: Frontal view of the chest COMPARISON: 05/21/2017. FINDINGS: The lungs are clear. There are no pleural effusions. There is no pneumothorax. The heart is normal in size. The visualized osseous structures are within normal limits. RAD/Chest 1 View (Portable) IMPRESSION: No acute thoracic pathology. Electronically Signed: Fan Whaley, at 19:14 EST Tel , Service support , CC: Susana Diaz III, MD; Estefania Reyna MD Manager Equity: Signed CT ABDOMEN/PELVIS W/O Observed: 03/09/2018 Status: F Source: [place] 7:55 PM [facility] [place] REPOSITORY ORIGINAL CT ABDOMEN/PELVIS W/O CONTRAST CLINICAL STATEMENT: right flank pain, hx of kidney stones COMPARISON: CT abdomen pelvis 07/16/2015 TECHNIQUE: Axial images were obtained from the lung bases through the pubic symphysis. Coronal reformatted images were generated from the axial dataset. This exam was performed according to our [facility] dose optimization program, and includes the following measures where applicable: automated exposure control, adjustment of the mAs and/or kVp according to patient size and/or exam, and an iterative reconstruction algorithm. FINDINGS: Bilateral nonobstructing calculi are demonstrated measuring 4 mm. There is no hydronephrosis, or perinephric stranding. The ureters are normal. No bladder calculi are visible. The uterus is unremarkable. There is a 4.4 cm RIGHT adnexal cysts, likely physiologic There are postsurgical changes of a gastric bypass surgery. There are post surgical changes of a cholecystectomy. The visualized liver and spleen are unremarkable for noncontrast examination. The noncon trasted pancreas and adrenal glands are normal. The small and large bowel are normal in course and caliber. There is no pericecal inflammation There is no free fluid or free air. No adenopathy is identified. There are no suspicious osseous lesions. Degenerative changes are noted in the spine. IMPRESSION: Bilateral nonobstructing nephrolithiasis measuring 4 mm. RIGHT adnexal 4.4 cm cyst is likely physiologic. No further workup is required. I have personally reviewed the images of this examination and agree with the resident's findings and interpretation. Interpreted By: Marty Olea DO Preliminary Report By: Tab Mendoza MD Electronically Signed By: Marty Olea DO Dictated Date: 03/09/2018 8:23:17 PM Prelim Date: 03/09/2018 8:30:22 PM Sign Date: 03/09/2018 8:52:51 PM BMP Collected: 03/09/2018 Status: F Source: [facility] 7:12 PM [facility] REPOSITORY TYPE CODE TESTS RESULT OUT OF REFERENCE UNITS RANGE LAB GLU(LOINC) 70-105 mg/dL Glucose Level 90 LAB NA(LOINC) 136-145 mmol/L Sodium Level 141 LAB K(LOINC) 3.5-5.1 mmol/L Potassium Level 3.8 LAB CL(LOINC) 98-107 mmol/L Chloride 104 LAB CO2(LOINC) 22-29 mmol/L CO2 25 LAB EBAL(LOINC mEq/L ) Electrolyte Balance 12.0 LAB BUN(LOINC) 7-18 mg/dL BUN 16 LAB CRE(LOINC) 0.55-1.02 mg/dL Creatinine Lvl (s) 0.60 LAB BC(LOINC) 7-27 ratio BUN/Creatinine 27 Ratio LAB CA(LOINC) 8.4-10.2 mg/dL Calcium Lvl 8.9 Performed By: #### CBC, ADIFF, ANEU #### [facility] [address] [place], [place] [address] #### BMP, GFR #### [address] [address] .GFR Collected: 03/09/2018 Status: F Source: [facility] 7:12 PM [facility] REPOSITORY TYPE CODE TESTS RESULT OUT OF REFERENCE UNITS RANGE LAB GFRAA(LOINC ml/min/1.73 ) sqm GFR 140 Czech Result Comment: GFR Population mean for , Non- Americans Ages 20-29 = 116 mL/min/1.73 sq.m. Ages 30-39 = 107 mL/min/1.73 sq.m. Ages 40-49 = 99 mL/min/1.73 sq.m. Ages 50-59 = 93 mL/min/1.73 sq.m. Ages 60-69 = 85 mL/min/1.73 sq.m. Ages 70+ = 75 mL/min/1.73 sq.m. Chronic Kidney Disease: Less than 60 mL/min/1.73 square meters End Stage Renal Disease: Less than 15 mL/min/1.73 square meters LAB GFRNO(LOINC) ml/min/1.73sqm GFR Non- 116 Result Comment: GFR Population mean for , Non- Americans Ages 20-29 = 116 mL/min/1.73 sq.m. Ages 30-39 = 107 mL/min/1.73 sq.m. Ages 40-49 = 99 mL/min/1.73 sq.m. Ages 50-59 = 93 mL/min/1.73 sq.m. Ages 60-69 = 85 mL/min/1.73 sq.m. Ages 70+ = 75 mL/min/1.73 sq.m. Chronic Kidney Disease: Less than 60 mL/min/1.73 square meters End Stage Renal Disease: Less than 15 mL/min/1.73 square meters Performed By: #### CBC, ADIFF, ANEU #### [address] [address] #### BMP, GFR #### [address] [address] CBC Collected: 03/09/2018 Status: F Source: [facility] 6:28 PM [facility] REPOSITORY TYPE CODE TESTS RESULT OUT OF REFERENCE UNITS RANGE LAB WBC(LOINC) 4.60-10.80 10 3/mcL WBC 7.90 LAB RBCCT(LOINC 4.20-5.40 10 6/mcL ) RBC 4.38 LAB HGB(LOINC) 12.0-16.0 G/dL Low Hgb 9.7 LAB HCT(LOINC) 37.0-47.0 % Low Hct 30.4 LAB MCV(LOINC) 80.0-94.0 fL Low MCV 69.3 LAB MCH(LOINC) 27.0-31.2 pg Low MCH 22.0 LAB MCHC(LOINC) 33.0-37.0 G/dL Low MCHC 31.8 LAB RDW(LOINC) 11.5-14.5 % High RDW 18.2 LAB PLT(LOINC) 130-400 10 3/mcL Platelet 392 LAB MPV(LOINC) 7.4-10.4 fL MPV 9.2 Performed By: #### CBC, ADIFF, ANEU #### [address] [address] #### BMP, GFR #### [address] [address] .AUTO DIFF Collected: 03/09/2018 Status: F Source: [facility] 6:28 PM [facility] REPOSITORY TYPE CODE TESTS RESULT OUT OF REFERENCE UNITS RANGE LAB ROBERT(LOINC) 37.0-80.0 % Neutrophil % 63.6 LAB LYM(LOINC) 10.0-50.0 % Lymphocyte % 26.4 LAB MON(LOINC) 1.7-13.0 % Monocyte % 7.1 LAB EO(LOINC) 0.0-7.0 % Eosinophil % 1.5 LAB BAS(LOINC) 0.0-2.5 % Basophil % 1.4 LAB ABLYM(LOIN 0.77-3.85 10 3/mcL C) Lymphocyte, 2.10 Absolute LAB ABELINO(LOINC 0.15-1.00 10 3/mcL ) Monocyte, 0.60 Absolute LAB AEOS(LOINC 0.00-0.40 10 3/mcL ) Eosinophil, 0.10 Absolute LAB ABAS(LOINC 0.00-0.19 10 3/mcL ) Basophil, 0.10 Absolute Performed By: #### CBC, ADIFF, ANEU #### [address] [address] #### BMP, GFR #### [address] [address] .NEUABS Collected: 03/09/2018 Status: F Source: [facility] 6:28 PM [facility] REPOSITORY TYPE CODE TESTS RESULT OUT OF REFERENCE UNITS RANGE LAB ANEU(LOINC) 2.85-6.16 10 3/mcL Neutrophil, 5.00 Absolute Performed By: #### CBC, ADIFF, ANEU #### [address] [address] #### BMP, GFR #### [place] [address] UA Collected: 03/09/2018 Status: F Source: [facility] 6:28 PM [facility] REPOSITORY TYPE CODE TESTS RESULT OUT OF REFERENCE UNITS RANGE LAB SPCUA(LOIN C) UA Specimen Type Void LAB CLRUA(LOIN C) UA Color Yellow LAB APPUA(LOIN Clear C) UA Appear Clear LAB SGUA(LOINC ) UA Spec Grav 1.020 LAB GLUA(LOINC Negative mg/dL ) UA Glucose Negative LAB BILUA(LOIN Negative C) UA Bili Negative LAB KETUA(LOIN Negative mg/dL C) UA Ketones Negative LAB BLDUA(LOIN Negative C) UA Blood Negative LAB PHUA(LOINC ) UA pH 6.0 LAB PROUA(LOIN Negative mg/dL C) UA Protein Negative LAB UROUA(LOIN E.U./dL C) UA Urobilinogen 0.2 LAB NITUA(LOIN Negative C) UA Nitrite Negative LAB LEUUA(LOIN Negative C) UA Leuk Est Negative Performed By: #### UA #### [place] [address] #### PREGU #### [address] [address] PREGU Collected: 03/09/2018 Status: F Source: [facility] 6:28 [facility] REPOSITORY TYPE CODE TESTS RESULT OUT OF RANGE REFERENCE UNITS LAB PREGU(LOIN C) Test Negative Urine LAB PRUG1(LOIN C) Unknown test HCG not (u) int detected. Performed By: #### UA #### [place] [address] #### PREGU #### [address] [address] PROGRESS Observed: 02/23/2018 Status: COMPLETED Source: [place] 2:06 PM [facility] REPOSITORY HNO ID: [id number] Author: Susana Diaz III Service: (none) Author Type: Physician Type: Progress Notes Filed: 02/23/2018 2:06 PM Note Text: Tramaine, There is no evidence of urinary tract infection. Also, there was no microscopic blood in the urine that would suggest passage of a kidney stone. The back pain may be a withdrawal symptoms of the hydrocodone. Strain the urine for possible stone. Gradually wean norco over next 2 mos if possible. Susana Diaz III MD URINALYSIS WITH Collected: 02/21/2018 Status: F Source: [place] MICROSCOPIC 1:41 PM [facility] REPOSITORY TYPE CODE TESTS RESULT OUT OF RANGE REFERENCE UNITS LAB UCOL Yellow Color Yellow LAB [facility] Clear Clarity Abnormal Cloudy Alert LAB UGLUC Negative mg/dL Glucose, Urine Negative LAB UBIL Negative Bilirubin, Urine Negative LAB UKET Negative Ketones, Urine Negative LAB USPG 1.005-1.030 Specific [place], Ur 1.020 LAB UHGB Negative Hemoglobin/Blood, Negative Ur LAB UPH 4.5-8.0 pH 6.0 LAB UPROT Negative mg/dL Protein, Urine Negative LAB UUROB Normal Urobilinogen Normal LAB UNITR Negative Nitrites Negative LAB ULKEST Negative Leukest Abnormal Trace Alert LAB UCOM Comments SEE COMMENT Result Comment: N/A LAB UMCOM Urine SEE Roland Comment COMMENT Result Comment: N/A LAB UWBC 0-5 /HPF WBC 0-5 LAB URBC 0-3 /HPF RBC 0-3 LAB UEPI /HPF Epithelial SEE Cells COMMENT Result Comment: Few Squamous Epithelial Cells Performed By: #### UAWMIC #### [facility] [address] [place], [place] [address] Observed: 02/21/2018 Status: F Source: [place] URINE CULTURE 1:41 PM [facility] REPOSITORY Sp. Request/Comment: - Best Practice Alert: To ensure optimal transport conditions and accurate culture results transfer urine specimens to rogel top C and S preservative tube. Culture Result - <10,000 CFU/ml Lactose positive gram negative bacilli --> ABNORMAL ALERT Insignificant colony count. No further workup. --> ABNORMAL ALERT 10,000 - <50,000 CFU/ml Normal urogenital thania Performed By: #### URCUL #### [facility] [address] [place], [place] [address] PROGRESS Observed: 02/14/2018 Status: COMPLETED Source: [place] 4:44 PM [facility] REPOSITORY HNO ID: [id number] Author: Susana Diaz III Service: (none) Author Type: Physician Type: Progress Notes Filed: 02/14/2018 7:08 PM Note Text: SUBJECTIVE: This is a 33 year old female that is here today for Acute onset of L flank pain that then developed painful, tender nodule at L labia majora. Believes she already passed the stone. Had Difficulty passing urine. Low grade fever x 2 days. Has some urinary urgency but with sluggish urine flow. 2. hypertension--overslept this AM and has not yet taken her medication. PAST MEDICAL HISTORY Diagnosis Date - BENIGN HYPERTENSION 11/16/2006 - Calcium oxalate renal stones 2009 - Calculus of ureter 09/30/2007 s/p URS and stent with hydro. - Cervical disc disorder with radiculopathy 04/15/2010 - Chronic postoperative pain 02/27/201603/2015, gastric bypass surgery. 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 Chronic post op (gastric bypass) pain - Lumbar disc disorder with myelopathy 06/04/2010 - Moderate protein-calorie malnutrition (HCC) 05/04/2017 - Morbid obesity with BMI of 50.0-59.9, adult (HCC) 09/12/2014 - Non-alcoholic fatty liver disease - OBESITY NOS 06/01/2005 - Obstructive sleep apnea Approval received from [facility] 02/01/2015 for CPAP @ 10 approval - Post-cholecystectomy syndrome 11/09/2013 - Vitamin B 12 deficiency 05/31/2017 - Vitamin D deficiency 02/21/2013 Current Outpatient Prescriptions on File Prior to Visit: HYDROcodone-acetaminophen (NORCO) 5-325 mg per tablet Take 1 tablet by mouth twice daily as needed for Pain (max 2/day) for up to 30 days. [START ON 02/23/2018] HYDROcodone-acetaminophen (NORCO) 5-325 mg per tablet Take 1 tablet by mouth twice daily as needed for Pain (max 2/day) for up to 30 days.Earliest Fill Date: 02/23/18 amitriptyline (ELAVIL) 50 mg tablet Take 1 tablet by mouth daily at bedtime. metoprolol succinate ER (TOPROL XL) 25 mg 24 hr tablet Take 1 tablet by mouth once daily. hydrOXYzine HCl (ATARAX) 25 mg tablet Take 1 tablet by mouth at bedtime as needed for Itching/Rash or Anxiety (sleep). potassium citrate ER (UROCIT-K 10) 10 mEq (1,080 mg) TbER Take 1 tablet by mouth twice daily. tamsulosin ER (FLOMAX) 0.4 mg cp24 0.8mg by mouth once per day only as needed for renal colic lisinopril (ZESTRIL) 40 mg tablet Take 1 tablet by mouth twice daily. cyanocobalamin (VITAMIN B-12) 1,000 mcg/mL soln Inject 1 mL intramuscularly once every month. 1 DOSE MONTHLY ferrous sulfate 325 mg (65 mg iron) tablet Take 1 tablet by mouth twice daily with meals. (Patient taking differently: Take 150 mg by mouth twice daily with meals. ) ketoconazole (NIZORAL) 2 % cream Apply 1 application to affected area twice daily. cholecalciferol, Vitamin D3, (VITAMIN D3) 50,000 unit cap capsule one capsule once/wk amLODIPine (NORVASC) 10 mg tablet Take 1 tablet by mouth once daily. ETONOGESTREL (NEXPLANON SDRM) by SUBDERMAL route. [START ON 03/26/2018] HYDROcodone-acetaminophen (NORCO) 5-325 mg per tablet Take 1 tablet by mouth twice daily as needed for Pain (max 2/day) for up to 30 days.Earliest Fill Date: 03/26/18 Current Facility-Administered Medications on File Prior to Visit: cyanocobalamin 1,000 mcg injection FAMILY HISTORY Problem Relation Age of Onset - other (Brain tumor) Mother Benign - Hypertension Father - Diabetes Father - other (Diverticulitis) Father - COPD Paternal Grandfather - Colon Cancer Paternal Grandfather - Diabetes Maternal Grandfather - other (Kidney stone) Maternal Uncle - other (ESRD) Other Maternal cousin. Agenesic/atrophic kidney Social History Substance Use Topics - Smoking status: Never Smoker - Smokeless tobacco: Never Used - Alcohol use Yes Comment: rarely-2 drinks per month . BP 177/100 Pulse 95 Temp 37.5 ?C (99.5 ?F) (Tympanic) Resp 16 Wt 97.5 kg (215 lb) LMP 02/01/2018 (Approximate) BMI 34.70 kg/m? . OBJECTIVE: APPEARANCE Well appearing, alert, in no acute distress, well-hydrated, well nourished. and Obese ABDOMEN mild tenderness in the suprapubic area near the previous surgical site. I cannot detect a distended bladder by percussion or palpation. No hepatosplenomegaly. No CVA or flank tenderness bilaterally. FEMALE the patient identified the tender nodule in the left labia majora. This lesion is near the insertion of the labia minora to the labia majora on the left. It is about the size of a pea without erythema though there is some tenderness. Indistinct swelling of the left labia majora ASSESSMENT: suspect post -stone UTI/cystitis L labial cyst hypertension--not at goal Recent passage of renal stone PLAN: take today's BP meds and follow BP bactrim DS twice/day x 5 days use norco sparingly as needed stay well hydrated No urine was able to be provided for study JANE Barton MD, III MD PDMP website checked and validated. All prescriptions have been APPROPRIATELY filled. No suspicious activity was identified. 02/14/2018 by Susana Diaz III MD CNOV Observed: 02/14/2018 Status: COMPLETED Source: [place] 4:20 PM [facility] REPOSITORY Office Visit (FAMPWS) TRAMAINE PENG ([id number]) 1985 F Date Time Provider Department 02/14/18 4:20 PM SUSANA DIAZ III During your visit today, we recorded the following information about you: Temperature Pulse Respiration Blood pressure 99.5 degrees 95/minute 16/minute 177/100 Weight Last Period 97.5 kg 02/01/18 Susana Diaz III MD 02/14/2018 7:08 PM Signed SUBJECTIVE: This is a 33 year old female that is here today for Acute onset of L flank pain that then developed painful, tender nodule at L labia majora. Believes she already passed the stone. Had Difficulty passing urine. Low grade fever x 2 days. Has some urinary urgency but with sluggish urine flow. 2. hypertension--overslept this AM and has not yet taken her medication. PAST MEDICAL HISTORY Diagnosis Date - BENIGN HYPERTENSION 11/16/2006 - Calcium oxalate renal stones 2009 - Calculus of ureter 09/30/2007 s/p URS and stent with hydro. - Cervical disc disorder with radiculopathy 04/15/2010 - Chronic postoperative pain 02/27/201603/2015, gastric bypass surgery. 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 Chronic post op (gastric bypass) pain - Lumbar disc disorder with myelopathy 06/04/2010 - Moderate protein-calorie malnutrition (HCC) 05/04/2017 - Morbid obesity with BMI of 50.0-59.9, adult ([facility]) 09/12/2014 - Non-alcoholic fatty liver disease - OBESITY NOS 06/01/2005 - Obstructive sleep apnea Approval received from [facility] 02/01/2015 for CPAP @ 10 approval - Post-cholecystectomy syndrome 11/09/2013 - Vitamin B 12 deficiency 05/31/2017 - Vitamin D deficiency 02/21/2013 Current Outpatient Prescriptions on File Prior to Visit: HYDROcodone-acetaminophen (NORCO) 5-325 mg per tablet Take 1 tablet by mouth twice daily as needed for Pain (max 2/day) for up to 30 days. [START ON 02/23/2018] HYDROcodone-acetaminophen (NORCO) 5-325 mg per tablet Take 1 tablet by mouth twice daily as needed for Pain (max 2/day) for up to 30 days.Earliest Fill Date: 02/23/18 amitriptyline (ELAVIL) 50 mg tablet Take 1 tablet by mouth daily at bedtime. metoprolol succinate ER (TOPROL XL) 25 mg 24 hr tablet Take 1 tablet by mouth once daily. hydrOXYzine HCl (ATARAX) 25 mg tablet Take 1 tablet by mouth at bedtime as needed for Itching/Rash or Anxiety (sleep). potassium citrate ER (UROCIT-K 10) 10 mEq (1,080 mg) TbER Take 1 tablet by mouth twice daily. tamsulosin ER (FLOMAX) 0.4 mg cp24 0.8mg by mouth once per day only as needed for renal colic lisinopril (ZESTRIL) 40 mg tablet Take 1 tablet by mouth twice daily. cyanocobalamin (VITAMIN B-12) 1,000 mcg/mL soln Inject 1 mL intramuscularly once every month. 1 DOSE MONTHLY ferrous sulfate 325 mg (65 mg iron) tablet Take 1 tablet by mouth twice daily with meals. (Patient taking differently: Take 150 mg by mouth twice daily with meals. ) ketoconazole (NIZORAL) 2 % cream Apply 1 application to affected area twice daily. cholecalciferol, Vitamin D3, (VITAMIN D3) 50,000 unit cap capsule one capsule once/wk amLODIPine (NORVASC) 10 mg tablet Take 1 tablet by mouth once daily. ETONOGESTREL (NEXPLANON SDRM) by SUBDERMAL route. [START ON 03/26/2018] HYDROcodone-acetaminophen (NORCO) 5-325 mg per tablet Take 1 tablet by mouth twice daily as needed for Pain (max 2/day) for up to 30 days.Earliest Fill Date: 03/26/18 Current Facility-Administered Medications on File Prior to Visit: cyanocobalamin 1,000 mcg injection FAMILY HISTORY Problem Relation Age of Onset - other (Brain tumor) Mother Benign - Hypertension Father - Diabetes Father - other (Diverticulitis) Father - COPD Paternal Grandfather - Colon Cancer Paternal Grandfather - Diabetes Maternal Grandfather - other (Kidney stone) Maternal Uncle - other (ESRD) Other Maternal cousin. Agenesic/atrophic kidney Social History Substance Use Topics - Smoking status: Never Smoker - Smokeless tobacco: Never Used - Alcohol use Yes Comment: rarely-2 drinks per month . BP 177/100 Pulse 95 Temp 37.5 ?C (99.5 ?F) (Tympanic) Resp 16 Wt 97.5 kg (215 lb) LMP 02/01/2018 (Approximate) BMI 34.70 kg/m? . OBJECTIVE: APPEARANCE Well appearing, alert, in no acute distress, well- hydrated, well nourished. and Obese ABDOMEN mild tenderness in the suprapubic area near the previous surgical site. I cannot detect a distended bladder by percussion or palpation. No hepatosplenomegaly. No CVA or flank tenderness bilaterally. FEMALE the patient identified the tender nodule in the left labia majora. This lesion is near the insertion of the labia minora to the labia majora on the left. It is about the size of a pea without erythema though there is some tenderness. Indistinct swelling of the left labia majora ASSESSMENT: suspect post -stone UTI/cystitis L labial cyst hypertension--not at goal Recent passage of renal stone PLAN: take today's BP meds and follow BP bactrim DS twice/day x 5 days use norco sparingly as needed stay well hydrated No urine was able to be provided for study JANE Barton MD, III MD PDMP website checked and validated. All prescriptions have been APPROPRIATELY filled. No suspicious activity was identified. 02/14/2018 by JANE Barton MD, III MD 02/14/2018 5:08 PM Signed PLAN: take today's BP meds and follow BP bactrim DS twice/day x 5 days use norco sparingly as needed stay well hydrated Susana Diaz III MD Referring Provider: SELF [[id number]] Allergies As of Date: 02/14/2018 Noted Allergy Reaction TORADOL (KETOROLAC TROMETHAMINE) 05/30/2015 8 - GI Upset GABAPENTIN 02/27/2016 14 - Other: See Comments Comments: Cognitive intolerance METHOCARB 04/01/2016 14 - Other: See Comments TRAMADOL 10/17/2013 8 - GI Upset Date Reviewed: 02/14/2018 Reviewed by: Nicol ([facility]) LINH Espino - Fully Assessed Reason for Visit: Kidney Problem [61] Primary Visit Diagnosis:Acute cystitis without hematuria [N30.00] Other Visit Diagnoses:Essential hypertension, benign [I10] Calcium oxalate renal stones [N20.0] Labial cyst [N90.7] Order(s):sulfamethoxazole-trimethoprim (BACTRIM DS) 800-160 mg per tabletTake 1 tablet by mouth twice daily for 5 days.Disp: 10 tabletRfl: 0 lidocaine 4 % gelApply 1 Tube to affected area four times daily as needed.Disp: 1 TubeRfl: 2 Prescriptions as of 02/14/2018 Sig: HYDROCODONE 5 MG-ACETAMINOPHE* Take 1 tablet by mouth twice * HYDROCODONE 5 MG-ACETAMINOPHE* Take 1 tablet by mouth twice * AMITRIPTYLINE 50 MG TABLET Take 1 tablet by mouth daily * METOPROLOL SUCCINATE ER 25 MG* Take 1 tablet by mouth once d* HYDROXYZINE HCL 25 MG TABLET Take 1 tablet by mouth at bed* POTASSIUM CITRATE ER 10 MEQ (* Take 1 tablet by mouth twice * TAMSULOSIN 0.4 MG CAPSULE 0.8mg by mouth once per day o* LISINOPRIL 40 MG TABLET Take 1 tablet by mouth twice * CYANOCOBALAMIN (VIT B-12) 1,0* Inject 1 mL intramuscularly o* FERROUS SULFATE 325 MG (65 MG* Take 1 tablet by mouth twice * Patient taking differently: Take 150 mg by mouth twice da* KETOCONAZOLE 2 % TOPICAL CREAM Apply 1 application to affect* CHOLECALCIFEROL (VITAMIN D3) * one capsule once/wk AMLODIPINE 10 MG TABLET Take 1 tablet by mouth once d* NEXPLANON SDRM by SUBDERMAL route. 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] INVALID FOR*07/04/2015 BENIGN HYPERTENSION [I10] INVALID FOR* Intractable migraine without aura [G43.019] INVALID FOR*01/24/2018 Cervical disc disorder with radiculopathy [M50.*INVALID FOR*09/07/2016 Lumbar disc disorder with myelopathy [M51.06] INVALID FOR*09/07/2016 Calcium oxalate renal stones [N20.0] INVALID FOR* Non-alcoholic fatty liver disease [K76.0] Vitamin D deficiency [E55.9] INVALID FOR*09/07/2016 Hyperparathyroidism due to vitamin D deficiency*INVALID FOR*09/07/2016 Gallbladder sludge [K82.8] INVALID FOR*11/09/2013 Physical deconditioning [R53.81] INVALID FOR*09/07/2016 Post-cholecystectomy syndrome [K91.5] INVALID FOR*09/07/2016 GARRY (obstructive sleep apnea) [G47.33] INVALID FOR*09/07/2016 Nasal turbinate hypertrophy [J34.3] INVALID FOR*01/24/2018 ADD (attention deficit disorder) [F98.8] INVALID FOR*09/07/2016 More... 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 Chronic postoperative pain [G89.28] INVALID FOR* More... Bleeding [R58] INVALID FOR*10/14/2016 More... Cellulitis of abdominal wall [L03.311] INVALID FOR*12/23/2016 Vitamin D deficiency [E55.9] INVALID FOR* Hyperuricuria [R82.998] INVALID FOR* Hyperuricosuria [R82.993] INVALID FOR* Hyperoxaluria (HCC) [R82.992] INVALID FOR* Renal calculi [N20.0] INVALID FOR* Iron deficiency anemia secondary to inadequate *INVALID FOR* Moderate protein-calorie malnutrition (HCC) [E4*INVALID FOR* Renal colic [N23] INVALID FOR* Vitamin B 12 deficiency [E53.8] INVALID FOR* Status post bariatric surgery [Z98.84] INVALID FOR* Intertrigo [L30.4] INVALID FOR* Acute kidney failure, unspecified (HCC) [N17.9] INVALID FOR* Chronic pain disorder [G89.4] INVALID FOR* Hypertension [I10] INVALID FOR* Localized adiposity [E65] INVALID FOR* parts counterman (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 LIDOCAINE 4 % TOPICAL GEL 1 Tu* 2 02/14/2018 Class: Print RX Route: TOPICAL Sig: Apply 1 Tube to affected area four times daily as needed. Encounter Status:Closed by SUSANA DIAZ III, MD on 02/14/18 PROGRESS Observed: 01/24/2018 Status: COMPLETED Source: [place] 10:02 AM [facility] REPOS[facility] HNO ID: [id number] Author: Susana Diaz III Service: (none) Author Type: Physician Type: Progress Notes Filed: 01/24/2018 12:40 PM Note Text: SUBJECTIVE: This is a 33 year old female that is here today for 1. post op pain in the pubic area involving the scar. Difficulty laying on her sides to sleep, tender when trying to wear clothes. Massage, topicals, soaking of little benefit. Using norco. 5 mg w/o increase in dose. 2-3 doses/day. Had been on 4 doses/day soon after surgery. We discussed the option of surgery on enlarged L labia majorum (causing skin rashes). My concern is the post-op need for increased opiate doses does not justify the benefit that she would receive from surgery. Reviewed up-date- re: intralesional cortisone injections/flurourocil into scar, or cryotherapy. She decided to wait and watch. Has been missing a lot of work due to pain at the pubic scar. PAST MEDICAL HISTORY Diagnosis Date - BENIGN HYPERTENSION 11/16/2006 - Calcium oxalate renal stones 2009 - Calculus of ureter 09/30/2007 s/p URS and stent with hydro. - Cervical disc disorder with radiculopathy 04/15/2010 - Chronic postoperative pain 02/27/201603/2015, gastric bypass surgery. Pain from severed nerves and muscle - COMMON MIGRAINE INTRACTABLE Improved - Gallbladder sludge 05/31/2013 - GERD (gastroesophageal reflux disease) 09/12/2014 - History of Og-en-Y gastric bypass - Hyperparathyroidism due to vitamin D deficiency (HCC) 04/05/2013 - Iron deficiency anemia secondary to inadequate dietary iron intake 05/04/2017 - halfway prescription opiate use 02/27/2016 Chronic post op (gastric bypass) pain - Lumbar disc disorder with myelopathy 06/04/2010 - Moderate protein-calorie malnutrition (HCC) 05/04/2017 - Morbid obesity with BMI of 50.0-59.9, adult ([facility]) 09/12/2014 - Non-alcoholic fatty liver disease - OBESITY NOS 06/01/2005 - Obstructive sleep apnea Approval received from [facility] 02/01/2015 for CPAP @ 10 approval - 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 metoprolol succinate ER (TOPROL XL) 25 mg 24 hr tablet Take 1 tablet by mouth once daily. hydrOXYzine HCl (ATARAX) 25 mg tablet Take 1 tablet by mouth at bedtime as needed for Itching/Rash or Anxiety (sleep). potassium citrate ER (UROCIT-K 10) 10 mEq (1,080 mg) TbER Take 1 tablet by mouth twice daily. tamsulosin ER (FLOMAX) 0.4 mg cp24 0.8mg by mouth once per day only as needed for renal colic lisinopril (ZESTRIL) 40 mg tablet Take 1 tablet by mouth twice daily. cyanocobalamin (VITAMIN B-12) 1,000 mcg/mL soln Inject 1 mL intramuscularly once every month. 1 DOSE MONTHLY ferrous sulfate 325 mg (65 mg iron) tablet Take 1 tablet by mouth twice daily with meals. (Patient taking differently: Take 150 mg by mouth twice daily with meals. ) ketoconazole (NIZORAL) 2 % cream Apply 1 application to affected area twice daily. cholecalciferol, Vitamin D3, (VITAMIN D3) 50,000 unit cap capsule one capsule once/wk amLODIPine (NORVASC) 10 mg tablet Take 1 tablet by mouth once daily. ETONOGESTREL (NEXPLANON SDRM) by SUBDERMAL route. HYDROcodone-acetaminophen (NORCO) 5-325 mg per tablet Take 1 tablet by mouth twice daily as needed for Pain (max 2/day) for up to 30 days.Earliest Fill Date: 12/23/17 Current Facility-Administered Medications on File Prior to Visit: cyanocobalamin 1,000 mcg injection FAMILY HISTORY Problem Relation Age of Onset - other (Brain tumor) Mother Benign - Hypertension Father - Diabetes Father - other (Diverticulitis) Father - COPD Paternal Grandfather - Colon Cancer Paternal Grandfather - Diabetes Maternal Grandfather - other (Kidney stone) Maternal Uncle - other (ESRD) Other Maternal cousin. Agenesic/atrophic kidney Social History Substance Use Topics - Smoking status: Never Smoker - Smokeless tobacco: Never Used - Alcohol use Yes Comment: rarely-2 drinks per month BP 156/93 Pulse 86 Resp 16 Ht 167.6 cm (5' 6) Wt 96.2 kg (212 lb) LMP 2018 BMI 34.22 kg/m? . OBJECTIVE: APPEARANCE Well appearing, alert, in no acute distress, well-hydrated, well nourished. and Obese ABDOMEN well healed wide scar pubic area ASSESSMENT: ch. abd pain--narcotic bowel syndrome? scar pain ch. prescribed opiate use PLAN: continue present pain program and use norco sparingly 30 min visit with pain management discussion and review of up-to-date PDMP website checked and validated. All prescriptions have been APPROPRIATELY filled. No suspicious activity was identified. 01/24/2018 by JANE Barton MD, III MD CNOV Observed: 01/24/2018 Status: COMPLETED Source: EU[place] 10:00 AM [facility] REPOSITORY Office Visit (FAMPWS) TRAMAINE PENG ([id number]) 1985 F Date Time Provider Department 01/24/18 10:00 AM SUSANA DIAZ III During your visit today, we recorded the following information about you: Pulse Respiration Blood pressure Weight 86/minute 16/minute 156/93 96.2 kg Height Last Period 1.676 m 01/04/18 Susana Diaz III MD 01/24/2018 12:40 PM Signed SUBJECTIVE: This is a 33 year old female that is here today for 1. post op pain in the pubic area involving the scar. Difficulty laying on her sides to sleep, tender when trying to wear clothes. Massage, topicals, soaking of little benefit. Using norco. 5 mg w/o increase in dose. 2-3 doses/day. Had been on 4 doses/day soon after surgery. We discussed the option of surgery on enlarged L labia majorum (causing skin rashes). My concern is the post-op need for increased opiate doses does not justify the benefit that she would receive from surgery. Reviewed up-date- re: intralesional cortisone injections/flurourocil into scar, or cryotherapy. She decided to wait and watch. Has been missing a lot of work due to pain at the pubic scar. PAST MEDICAL HISTORY Diagnosis Date - BENIGN HYPERTENSION 11/16/2006 - Calcium oxalate renal stones 2009 - Calculus of ureter 09/30/2007 s/p URS and stent with hydro. - Cervical disc disorder with radiculopathy 04/15/2010 - Chronic postoperative pain 02/27/201603/2015, gastric bypass surgery. 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 Chronic post op (gastric bypass) pain - Lumbar disc disorder with myelopathy 06/04/2010 - Moderate protein-calorie malnutrition (HCC) 05/04/2017 - Morbid obesity with BMI of 50.0-59.9, adult (HCC) 09/12/2014 - Non-alcoholic fatty liver disease - OBESITY NOS 06/01/2005 - Obstructive sleep apnea Approval received from [facility] 02/01/2015 for CPAP @ 10 approval - 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 metoprolol succinate ER (TOPROL XL) 25 mg 24 hr tablet Take 1 tablet by mouth once daily. hydrOXYzine HCl (ATARAX) 25 mg tablet Take 1 tablet by mouth at bedtime as needed for Itching/Rash or Anxiety (sleep). potassium citrate ER (UROCIT-K 10) 10 mEq (1,080 mg) TbER Take 1 tablet by mouth twice daily. tamsulosin ER (FLOMAX) 0.4 mg cp24 0.8mg by mouth once per day only as needed for renal colic lisinopril (ZESTRIL) 40 mg tablet Take 1 tablet by mouth twice daily. cyanocobalamin (VITAMIN B-12) 1,000 mcg/mL soln Inject 1 mL intramuscularly once every month. 1 DOSE MONTHLY ferrous sulfate 325 mg (65 mg iron) tablet Take 1 tablet by mouth twice daily with meals. (Patient taking differently: Take 150 mg by mouth twice daily with meals. ) ketoconazole (NIZORAL) 2 % cream Apply 1 application to affected area twice daily. cholecalciferol, Vitamin D3, (VITAMIN D3) 50,000 unit cap capsule one capsule once/wk amLODIPine (NORVASC) 10 mg tablet Take 1 tablet by mouth once daily. ETONOGESTREL (NEXPLANON SDRM) by SUBDERMAL route. HYDROcodone-acetaminophen (NORCO) 5-325 mg per tablet Take 1 tablet by mouth twice daily as needed for Pain (max 2/day) for up to 30 days.Earliest Fill Date: 12/23/17 Current Facility-Administered Medications on File Prior to Visit: cyanocobalamin 1,000 mcg injection FAMILY HISTORY Problem Relation Age of Onset - other (Brain tumor) Mother Benign - Hypertension Father - Diabetes Father - other (Diverticulitis) Father - COPD Paternal Grandfather - Colon Cancer Paternal Grandfather - Diabetes Maternal Grandfather - other (Kidney stone) Maternal Uncle - other (ESRD) Other Maternal cousin. Agenesic/atrophic kidney Social History Substance Use Topics - Smoking status: Never Smoker - Smokeless tobacco: Never Used - Alcohol use Yes Comment: rarely-2 drinks per month BP 156/93 Pulse 86 Resp 16 Ht 167.6 cm (5' 6) Wt 96.2 kg (212 lb) LMP 2018 BMI 34.22 kg/m? . OBJECTIVE: APPEARANCE Well appearing, alert, in no acute distress, well- hydrated, well nourished. and Obese ABDOMEN well healed wide scar pubic area ASSESSMENT: ch. abd pain--narcotic bowel syndrome? scar pain ch. prescribed opiate use PLAN: continue present pain program and use norco sparingly 30 min visit with pain management discussion and review of up-to-date PDMP website checked and validated. All prescriptions have been APPROPRIATELY filled. No suspicious activity was identified. 01/24/2018 by JANE Barton MD, III MD Frank A Cebul, III MD 01/24/2018 10:32 AM Signed PLAN: continue present pain program return to office 3 mos to monitor use of controlled substance Susana Diaz III MD Referring Provider: SELF [[id number]] Allergies As of Date: 01/24/2018 Noted Allergy Reaction TORADOL (KETOROLAC TROMETHAMINE) 05/30/2015 8 - GI Upset GABAPENTIN 02/27/2016 14 - Other: See Comments Comments: Cognitive intolerance METHOCARB 04/01/2016 14 - Other: See Comments TRAMADOL 10/17/2013 8 - GI Upset Date Reviewed: 01/24/2018 Reviewed by: Nicol ([facility]) LINH Espino - Fully Assessed Reason for Visit: Discuss pain management [Other] Primary Visit Diagnosis:Post-op pain [G89.18] Other Visit Diagnosis:halfway prescription opiate use [Z79.891] Order(s):HYDROcodone-acetaminophen (NORCO) 5-325 mg per tabletTake 1 tablet by mouth twice daily as needed for Pain (max 2/day) for up to 30 days.Disp: 60 tabletRfl: 0 [START ON 02/23/2018] HYDROcodone-acetaminophen (NORCO) 5-325 mg per tabletTake 1 tablet by mouth twice daily as needed for Pain (max 2/day) for up to 30 days. Earliest Fill Date: 02/23/18Disp: 60 tabletRfl: 0 [START ON 03/26/2018] HYDROcodone-acetaminophen (NORCO) 5-325 mg per tabletTake 1 tablet by mouth twice daily as needed for Pain (max 2/day) for up to 30 days. Earliest Fill Date: 03/26/18Disp: 60 tabletRfl: 0 Prescriptions as of 01/24/2018 Sig: AMITRIPTYLINE 50 MG TABLET Take 1 tablet by mouth daily * METOPROLOL SUCCINATE ER 25 MG* Take 1 tablet by mouth once d* HYDROXYZINE HCL 25 MG TABLET Take 1 tablet by mouth at bed* POTASSIUM CITRATE ER 10 MEQ (* Take 1 tablet by mouth twice * TAMSULOSIN 0.4 MG CAPSULE 0.8mg by mouth once per day o* LISINOPRIL 40 MG TABLET Take 1 tablet by mouth twice * CYANOCOBALAMIN (VIT B-12) 1,0* Inject 1 mL intramuscularly o* FERROUS SULFATE 325 MG (65 MG* Take 1 tablet by mouth twice * Patient taking differently: Take 150 mg by mouth twice da* KETOCONAZOLE 2 % TOPICAL CREAM Apply 1 application to affect* CHOLECALCIFEROL (VITAMIN D3) * one capsule once/wk AMLODIPINE 10 MG TABLET Take 1 tablet by mouth once d* NEXPLANON SDRM by SUBDERMAL route. 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] INVALID FOR*07/04/2015 BENIGN HYPERTENSION [I10] INVALID FOR* Intractable migraine without aura [G43.019] INVALID FOR*01/24/2018 Cervical disc disorder with radiculopathy [M50.*INVALID FOR*09/07/2016 Lumbar disc disorder with myelopathy [M51.06] INVALID FOR*09/07/2016 Calcium oxalate renal stones [N20.0] INVALID FOR* Non-alcoholic fatty liver disease [K76.0] Vitamin D deficiency [E55.9] INVALID FOR*09/07/2016 Hyperparathyroidism due to vitamin D deficiency*INVALID FOR*09/07/2016 Gallbladder sludge [K82.8] INVALID FOR*11/09/2013 Physical deconditioning [R53.81] INVALID FOR*09/07/2016 Post-cholecystectomy syndrome [K91.5] INVALID FOR*09/07/2016 GARRY (obstructive sleep apnea) [G47.33] INVALID FOR*09/07/2016 Nasal turbinate hypertrophy [J34.3] INVALID FOR*01/24/2018 ADD (attention deficit disorder) [F98.8] INVALID FOR*09/07/2016 More... 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 Chronic postoperative pain [G89.28] INVALID FOR* More... Bleeding [R58] INVALID FOR*10/14/2016 More... Cellulitis of abdominal wall [L03.311] INVALID FOR*12/23/2016 Vitamin D deficiency [E55.9] INVALID FOR* Hyperuricuria [R82.998] INVALID FOR* Hyperuricosuria [R82.993] INVALID FOR* Hyperoxaluria (HCC) [R82.992] INVALID FOR* Renal calculi [N20.0] INVALID FOR* Iron deficiency anemia secondary to inadequate *INVALID FOR* Moderate protein-calorie malnutrition (HCC) [E4*INVALID FOR* Renal colic [N23] INVALID FOR* Vitamin B 12 deficiency [E53.8] INVALID FOR* Status post bariatric surgery [Z98.84] INVALID FOR* Intertrigo [L30.4] INVALID FOR* Acute kidney failure, unspecified (HCC) [N17.9] INVALID FOR* Chronic pain disorder [G89.4] INVALID FOR* Hypertension [I10] INVALID FOR* Localized adiposity [E65] INVALID FOR* halfway (current) use of opiate analgesic [Z7*INVALID FOR* Cyst of ovary [N83.209] INVALID FOR* Other instructions from your clinician: PLAN: continue present pain program return to office 3 mos to monitor use of controlled substance Susana Julia Diaz III MD Prescriptions ordered this encounter Disp Refills Start End HYDROCODONE 5 MG-ACETAMINOPHEN 325 M* 60 t* 0 01/24/2018 02/23/2018 Class: Print RX Route: ORAL Sig: Take 1 tablet by mouth twice daily as needed for Pain (max 2/day) for up to 30 days. HYDROCODONE 5 MG-ACETAMINOPHEN 325 M* 60 t* 0 02/23/2018 03/25/2018 Class: Print RX Route: ORAL Sig: Take 1 tablet by mouth twice daily as needed for Pain (max 2/day) for up to 30 days. Earliest Fill Date: 02/23/18 HYDROCODONE 5 MG-ACETAMINOPHEN 325 M* 60 t* 0 03/26/2018 04/25/2018 Class: Print RX Route: ORAL Sig: Take 1 tablet by mouth twice daily as needed for Pain (max 2/day) for up to 30 days. Earliest Fill Date: 03/26/18 Medications Discontinued During This Encounter acetaminophen (TYLENOL) 500 mg tablet 0 10/22/2016 01/24/2018 Class: Med Update Route: ORAL Sig: Take 2 tablets by mouth every 6 hours. Disc: Discontinued by Patient HYDROcodone-acetaminophen (NORCO) 5-* 60 t* 0 12/23/2017 01/24/2018 Class: Print RX Route: ORAL Sig: Take 1 tablet by mouth twice daily as needed for Pain (max 2/day) for up to 30 days. Earliest Fill Date: 12/23/17 Disc: Reason for discontinue is not on file. Encounter Status:Closed by SUSANA DIAZ III, MD on 01/24/18 PROGRESS Observed: 12/30/2017 Status: COMPLETED Source: EU[place] 7:19 AM [facility] REPOS[facility] HNO ID: [id number] Author: Susana Diaz III Service: (none) Author Type: Physician Type: Progress Notes Filed: 12/30/2017 7:19 AM Note Text: Rtamaine, There is persistent mild anemia as result of the bariatric surgery, but the hemoglobin is not significantly different from one year ago. Vitamin B-12 level is now normal. Continue to eat a balanced diet. Susana Diaz III, MD, FAAFP CBC AND DIFFERENTIAL Collected: 12/29/2017 Status: F Source: EURE 1:45 PM [facility] REPOS[facility] TYPE CODE TESTS RESULT OUT OF REFERENCE UNITS RANGE LAB WBC 3.70-11.00 k/uL WBC 4.14 LAB RBC 3.90-5.20 m/uL RBC 4.42 LAB HGB 11.5-15.5 g/dL Low Hemoglobin 9.6 LAB HCT 36.0-46.0 % Low Hematocrit 32.4 LAB MCV 80.0-100.0 fL Low MCV 73.3 LAB MCH 26.0-34.0 pG Low MCH 21.7 LAB MCHC 30.5-36.0 g/dL Low MCHC 29.6 LAB RDWCV 11.5-15.0 % RDW-CV High 17.0 LAB PLTCT 150-400 k/uL Platelet Count 329 LAB MPV 9.0-12.7 fL MPV 12.5 LAB ANEUT % Neut% 49.3 LAB AANEUT 1.45-7.50 k/uL Abs Neut 2.03 LAB ALYMP % Lymph% 35.5 LAB AALYMP 1.00-4.00 k/uL Abs Lymph 1.47 LAB AMONO % [place]% 12.1 LAB AAMONO <0.87 k/uL Abs [place] 0.50 LAB AEOS % Eosin% 1.7 LAB AAEOS <0.46 k/uL Abs Eosin 0.07 LAB ABASO % Baso% 1.4 LAB AABASO <0.11 k/uL Abs Baso 0.06 LAB AUNRBC 0 /100 WBC NRBCs 0.0 LAB ABNRBC <0.01 k/uL Absolute nRBC <0.01 LAB DTYP DTYPE Auto Diff Performed By: #### CBCDIF, B12 #### [facility] [address] [place], [place] [address] VITAMIN B12 Collected: 12/29/2017 Status: F Source: EURE 1:45 PM [facility] TYPE CODE TESTS RESULT OUT OF REFERENCE UNITS RANGE LAB B12 232-1245 pg/mL Vitamin B12 397 Performed By: #### CBCDIF, B12 #### [facility] [address] [address] [place], [place] [address] CNOV Observed: 12/29/2017 Status: COMPLETED Source: [place] 1:45 PM [facility] RE[facility] Office Visit (LABMOB) TRAMAINE PENG ([id number]) 1985 F Date Time Provider Department 12/29/17 1:45 PM [facility] During your visit today, we recorded the following information about you: Susana Diaz III MD 12/30/2017 7:19 AM Signed Tramaine, There is persistent mild anemia as result of the bariatric surgery, but the hemoglobin is not significantly different from one year ago. Vitamin B-12 level is now normal. Continue to eat a balanced diet. Susana Diaz III, MD, FAAFP Referring Provider: SUSANA DIAZ III [[id number]] Allergies As of Date: 12/29/2017 Noted Allergy Reaction TORADOL (KETOROLAC TROMETHAMINE) 05/30/2015 8 - GI Upset GABAPENTIN 02/27/2016 14 - Other: See Comments Comments: Cognitive intolerance METHOCARB 04/01/2016 14 - Other: See Comments TRAMADOL 10/17/2013 8 - GI Upset Date Reviewed: 11/24/2017 Reviewed by: Nicol ([facility]) LINH Espino - Fully Assessed Visit Diagnoses:Vitamin B 12 deficiency [E53.8] Renal colic on left side [N23] Flank pain, acute [R10.9] Order(s):VITAMIN B12 BLOOD [SQB12] Order #: [id number]. #:[id number] CBC + DIFF [SQCBCDIF] Order #: [id number]. #:[id number] Prescriptions as of 12/29/2017 Sig: HYDROCODONE 5 MG-ACETAMINOPHE* Take 1 tablet by mouth twice * AMITRIPTYLINE 50 MG TABLET Take 1 tablet by mouth daily * METOPROLOL SUCCINATE ER 25 MG* Take 1 tablet by mouth once d* HYDROXYZINE HCL 25 MG TABLET Take 1 tablet by mouth at bed* POTASSIUM CITRATE ER 10 MEQ (* Take 1 tablet by mouth twice * TAMSULOSIN 0.4 MG CAPSULE 0.8mg by mouth once per day o* LISINOPRIL 40 MG TABLET Take 1 tablet by mouth twice * CYANOCOBALAMIN (VIT B-12) 1,0* Inject 1 mL intramuscularly o* FERROUS SULFATE 325 MG (65 MG* Take 1 tablet by mouth twice * Patient taking differently: Take 150 mg by mouth twice da* KETOCONAZOLE 2 % TOPICAL CREAM Apply 1 application to affect* CHOLECALCIFEROL (VITAMIN D3) * one capsule once/wk ACETAMINOPHEN 500 MG TABLET Take 2 tablets by mouth every* AMLODIPINE 10 MG TABLET Take 1 tablet by mouth once d* NEXPLANON SDRM by SUBDERMAL route. 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] INVALID FOR*07/04/2015 BENIGN HYPERTENSION [I10] INVALID FOR* Intractable migraine without aura [G43.019] INVALID FOR* Cervical disc disorder with radiculopathy [M50.*INVALID FOR*09/07/2016 Lumbar disc disorder with myelopathy [M51.06] INVALID FOR*09/07/2016 Calcium oxalate renal stones [N20.0] INVALID FOR* Non-alcoholic fatty liver disease [K76.0] Vitamin D deficiency [E55.9] INVALID FOR*09/07/2016 Hyperparathyroidism due to vitamin D deficiency*INVALID FOR*09/07/2016 Gallbladder sludge [K82.8] INVALID FOR*11/09/2013 Physical deconditioning [R53.81] INVALID FOR*09/07/2016 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 Chronic postoperative pain [G89.28] INVALID FOR* More... Bleeding [R58] INVALID FOR*10/14/2016 More... Cellulitis of abdominal wall [L03.311] INVALID FOR*12/23/2016 Vitamin D deficiency [E55.9] INVALID FOR* Hyperuricuria [R82.998] INVALID FOR* Hyperuricosuria [R82.993] INVALID FOR* Hyperoxaluria (HCC) [R82.992] INVALID FOR* Renal calculi [N20.0] INVALID FOR* Iron deficiency anemia secondary to inadequate *INVALID FOR* Moderate protein-calorie malnutrition (HCC) [E4*INVALID FOR* Renal colic [N23] INVALID FOR* Vitamin B 12 deficiency [E53.8] INVALID FOR* Status post bariatric surgery [Z98.84] INVALID FOR* Intertrigo [L30.4] INVALID FOR* Acute kidney failure, unspecified (HCC) [N17.9] INVALID FOR* Chronic pain disorder [G89.4] INVALID FOR* Hypertension [I10] INVALID FOR* Localized adiposity [E65] INVALID FOR* 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 Kidney stones - passed 3 stones since last seen here in office. Bilateral low-back pain for the last 5 days, L>R. Describes the pain as achy and it feels like someone is punching her kidneys. No increased frequency, no dysuria, no noticed hematuria. Endorses nausea. Unknown fevers, endorses waking up in a cold sweat. 2. Abdominal wound - s/p gastric bypass surgery. Followed by the wound center for that. Describes associated pain as sharp and tingling, worsened with certain movement and pants rubbing against the wound. She was taking [place] 4x per day to maintain function in life, she ran out of her [place] 4 days ago. Taking Tylenol in the last 4 days, which does not manage her pain. 3. Hypertension PAST MEDICAL HISTORY Diagnosis Date - BENIGN HYPERTENSION 11/16/2006 - Calcium oxalate renal stones 2009 - Calculus of ureter 09/30/2007 s/p URS and stent with hydro. - Cervical disc disorder with radiculopathy 04/15/2010 - Chronic postoperative pain 02/27/201603/2015, gastric bypass surgery. 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 Chronic post op (gastric bypass) pain - Lumbar disc disorder with myelopathy 06/04/2010 - Moderate protein-calorie malnutrition (HCC) 05/04/2017 - Morbid obesity with BMI of 50.0-59.9, adult (HCC) 09/12/2014 - Non-alcoholic fatty liver disease - OBESITY NOS 06/01/2005 - Obstructive sleep apnea Approval received from [facility] 02/01/2015 for CPAP @ 10 approval - 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 potassium citrate ER (UROCIT-K 10) 10 mEq (1,080 mg) TbER Take 1 tablet by mouth twice daily. tamsulosin ER (FLOMAX) 0.4 mg cp24 0.8mg by mouth once per day only as needed for renal colic lisinopril (ZESTRIL) 40 mg tablet Take 1 tablet by mouth twice daily. cyanocobalamin (VITAMIN B-12) 1,000 mcg/mL soln Inject 1 mL intramuscularly once every month. 1 DOSE MONTHLY ferrous sulfate 325 mg (65 mg iron) tablet Take 1 tablet by mouth twice daily with meals. (Patient taking differently: Take 150 mg by mouth twice daily with meals. ) ketoconazole (NIZORAL) 2 % cream Apply 1 application to affected area twice daily. amitriptyline (ELAVIL) 50 mg tablet Take 1 tablet by mouth daily at bedtime. cholecalciferol, Vitamin D3, (VITAMIN D3) 50,000 unit cap capsule one capsule once/wk acetaminophen (TYLENOL) 500 mg tablet Take 2 tablets by mouth every 6 hours. amLODIPine (NORVASC) 10 mg tablet Take 1 tablet by mouth once daily. ETONOGESTREL (NEXPLANON SDRM) by SUBDERMAL route. HYDROcodone-acetaminophen (NORCO) 5-325 mg per tablet Take 1-2 tablets by mouth every 6 hours as needed for Pain (max 5/day) for up to 7 days. Current Facility-Administered Medications on File Prior to Visit: cyanocobalamin 1,000 mcg injection FAMILY HISTORY Problem Relation Age of Onset - other (Brain tumor) Mother Benign - Hypertension Father - Diabetes Father - other (Diverticulitis) Father - COPD Paternal Grandfather - Colon Cancer Paternal Grandfather - Diabetes Maternal Grandfather - other (Kidney stone) Maternal Uncle - other (ESRD) Other Maternal cousin. Agenesic/atrophic kidney Social History Substance Use Topics - Smoking status: Never Smoker - Smokeless tobacco: Never Used - Alcohol use Yes Comment: rarely-2 drinks per month BP 146/97 Pulse 93 Resp 16 Wt 95.3 kg (210 lb) LMP 11/04/2017 BMI 33.89 kg/m? OBJECTIVE: APPEARANCE Well appearing, alert, in no acute distress, well-hydrated, well nourished. ABDOMEN soft, non-tender, non-distended, without organomegaly or palpable masses, Mild tenderness left midabdomen without rigidity, rebound, mass BACK: Good for flexion, hyperextension, lateral lean bilaterally without affecting the low back pain ASSESSMENT: Hypertension - not at goal abd pain--?renal colic PLAN: UA, c AND s CBC with diff continue norco 5/325 one dose every 6 hrs as needed for severe pain (max 3/day) add metoprolol xl 25mg every AM nurse bp check in 2 wks Susana Diaz III MD PDMP website checked and validated. All prescriptions have been APPROPRIATELY filled. No suspicious activity was identified. 11/24/2017 by JANE Barton MD MS CNOV Observed: 11/24/2017 Status: COMPLETED Source: [place] 3:00 PM [facility] REPOSITORY Office Visit (FAMPWS) TRAMAINE PENG ([id number]) 1985 F Date Time Provider Department 11/24/17 3:00 PM SUSANA DIAZ IIIPWS During your visit today, we recorded the following information about you: Pulse Respiration Blood pressure Weight 93/minute 16/minute 146/97 95.3 kg Last Period 11/04/17 Susana Diaz III MD 11/24/2017 7:37 PM Signed SUBJECTIVE: This is a 32 year old female that is here today for 1. Kidney stones - passed 3 stones since last seen here in office. Bilateral low-back pain for the last 5 days, L>R. Describes the pain as achy and it feels like someone is punching her kidneys. No increased frequency, no dysuria, no noticed hematuria. Endorses nausea. Unknown fevers, endorses waking up in a cold sweat. 2. Abdominal wound - s/p gastric bypass surgery. Followed by the wound center for that. Describes associated pain as sharp and tingling, worsened with certain movement and pants rubbing against the wound. She was taking [place] 4x per day to maintain function in life, she ran out of her [place] 4 days ago. Taking Tylenol in the last 4 days, which does not manage her pain. 3. Hypertension PAST MEDICAL HISTORY Diagnosis Date - BENIGN HYPERTENSION 11/16/2006 - Calcium oxalate renal stones 2009 - Calculus of ureter 09/30/2007 s/p URS and stent with hydro. - Cervical disc disorder with radiculopathy 04/15/2010 - Chronic postoperative pain 02/27/201603/2015, gastric bypass surgery. 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 Chronic post op (gastric bypass) pain - Lumbar disc disorder with myelopathy 06/04/2010 - Moderate protein-calorie malnutrition (HCC) 05/04/2017 - Morbid obesity with BMI of 50.0-59.9, adult ([facility]) 09/12/2014 - Non-alcoholic fatty liver disease - OBESITY NOS 06/01/2005 - Obstructive sleep apnea Approval received from [facility] 02/01/2015 for CPAP @ 10 approval - 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 potassium citrate ER (UROCIT-K 10) 10 mEq (1,080 mg) TbER Take 1 tablet by mouth twice daily. tamsulosin ER (FLOMAX) 0.4 mg cp24 0.8mg by mouth once per day only as needed for renal colic lisinopril (ZESTRIL) 40 mg tablet Take 1 tablet by mouth twice daily. cyanocobalamin (VITAMIN B-12) 1,000 mcg/mL soln Inject 1 mL intramuscularly once every month. 1 DOSE MONTHLY ferrous sulfate 325 mg (65 mg iron) tablet Take 1 tablet by mouth twice daily with meals. (Patient taking differently: Take 150 mg by mouth twice daily with meals. ) ketoconazole (NIZORAL) 2 % cream Apply 1 application to affected area twice daily. amitriptyline (ELAVIL) 50 mg tablet Take 1 tablet by mouth daily at bedtime. cholecalciferol, Vitamin D3, (VITAMIN D3) 50,000 unit cap capsule one capsule once/wk acetaminophen (TYLENOL) 500 mg tablet Take 2 tablets by mouth every 6 hours. amLODIPine (NORVASC) 10 mg tablet Take 1 tablet by mouth once daily. ETONOGESTREL (NEXPLANON SDRM) by SUBDERMAL route. HYDROcodone-acetaminophen (NORCO) 5-325 mg per tablet Take 1-2 tablets by mouth every 6 hours as needed for Pain (max 5/day) for up to 7 days. Current Facility-Administered Medications on File Prior to Visit: cyanocobalamin 1,000 mcg injection FAMILY HISTORY Problem Relation Age of Onset - other (Brain tumor) Mother Benign - Hypertension Father - Diabetes Father - other (Diverticulitis) Father - COPD Paternal Grandfather - Colon Cancer Paternal Grandfather - Diabetes Maternal Grandfather - other (Kidney stone) Maternal Uncle - other (ESRD) Other Maternal cousin. Agenesic/atrophic kidney Social History Substance Use Topics - Smoking status: Never Smoker - Smokeless tobacco: Never Used - Alcohol use Yes Comment: rarely-2 drinks per month BP 146/97 Pulse 93 Resp 16 Wt 95.3 kg (210 lb) LMP 11/04/2017 BMI 33.89 kg/m? OBJECTIVE: APPEARANCE Well appearing, alert, in no acute distress, well- hydrated, well nourished. ABDOMEN soft, non-tender, non-distended, without organomegaly or palpable masses, Mild tenderness left midabdomen without rigidity, rebound, mass BACK: Good for flexion, hyperextension, lateral lean bilaterally without affecting the low back pain ASSESSMENT: Hypertension - not at goal abd pain--?renal colic PLAN: UA, c AND s CBC with diff continue norco 5/325 one dose every 6 hrs as needed for severe pain (max 3/day) add metoprolol xl 25mg every AM nurse bp check in 2 wks Susana Diaz III MD PDMP website checked and validated. All prescriptions have been APPROPRIATELY filled. No suspicious activity was identified. 11/24/2017 by JANE Barton MD MA Susana Diaz III MD 11/24/2017 3:58 PM Signed PLAN: UA, c AND s CBC with diff continue norco 5/325 one dose every 6 hrs as needed for severe pain (max 3/day) add metoprolol xl 25mg every AM nurse bp check in 2 wks Susana Diaz III MD Referring Provider: SELF [200] Allergies As of Date: 11/24/2017 Noted Allergy Reaction TORADOL (KETOROLAC TROMETHAMINE) 05/30/2015 8 - GI Upset GABAPENTIN 02/27/2016 14 - Other: See Comments Comments: Cognitive intolerance METHOCARB 04/01/2016 14 - Other: See Comments TRAMADOL 10/17/2013 8 - GI Upset Date Reviewed: 11/24/2017 Reviewed by: Nicol ([facility]) LINH Espino - Fully Assessed Reason for Visit: Recheck [92] Cmt: kidney pain Primary Visit Diagnosis:Renal colic on left side [N23] Other Visit Diagnoses:Post-op pain [G89.18] 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 [Z79.891] Flank pain, acute [R10.9] Essential hypertension, benign [I10] Order(s):[START ON 11/25/2017] HYDROcodone-acetaminophen (NORCO) 5-325 mg per tabletTake 1 tablet by mouth twice daily as needed for Pain (max 3/day) for up to 30 days. Earliest Fill Date: 11/25/17Disp: 90 tabletRfl: 0 URINALYSIS WITH MICROSCOPIC [SQUAWMIC] Order #: [id number] URINE CULTURE [SQURCUL] Order #: [id number] CBC + DIFF [SQCBCDIF] Order #: [id number] FUTURE metoprolol succinate ER (TOPROL XL) 25 mg 24 hr tabletTake 1 tablet by mouth once daily.Disp: 30 tabletRfl: 11 Prescriptions as of 11/24/2017 Sig: HYDROCODONE 5 MG-ACETAMINOPHE* Take 1 tablet by mouth twice * HYDROXYZINE HCL 25 MG TABLET Take 1 tablet by mouth at bed* POTASSIUM CITRATE ER 10 MEQ (* Take 1 tablet by mouth twice * TAMSULOSIN 0.4 MG CAPSULE 0.8mg by mouth once per day o* LISINOPRIL 40 MG TABLET Take 1 tablet by mouth twice * CYANOCOBALAMIN (VIT B-12) 1,0* Inject 1 mL intramuscularly o* FERROUS SULFATE 325 MG (65 MG* Take 1 tablet by mouth twice * Patient taking differently: Take 150 mg by mouth twice da* KETOCONAZOLE 2 % TOPICAL CREAM Apply 1 application to affect* AMITRIPTYLINE 50 MG TABLET Take 1 tablet by mouth daily * CHOLECALCIFEROL (VITAMIN D3) * one capsule once/wk ACETAMINOPHEN 500 MG TABLET Take 2 tablets by mouth every* AMLODIPINE 10 MG TABLET Take 1 tablet by mouth once d* NEXPLANON SDRM by SUBDERMAL route. 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] INVALID FOR*07/04/2015 BENIGN HYPERTENSION [I10] INVALID FOR* Intractable migraine without aura [G43.019] INVALID FOR* Cervical disc disorder with radiculopathy [M50.*INVALID FOR*09/07/2016 Lumbar disc disorder with myelopathy [M51.06] INVALID FOR*09/07/2016 Calcium oxalate renal stones [N20.0] INVALID FOR* Non-alcoholic fatty liver disease [K76.0] Vitamin D deficiency [E55.9] INVALID FOR*09/07/2016 Hyperparathyroidism due to vitamin D deficiency*INVALID FOR*09/07/2016 Gallbladder sludge [K82.8] INVALID FOR*11/09/2013 Physical deconditioning [R53.81] INVALID FOR*09/07/2016 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 Chronic postoperative pain [G89.28] INVALID FOR* More... Bleeding [R58] INVALID FOR*10/14/2016 More... Cellulitis of abdominal wall [L03.311] INVALID FOR*12/23/2016 Vitamin D deficiency [E55.9] INVALID FOR* Hyperuricuria [R82.99] INVALID FOR* Hyperuricosuria [R82.99] INVALID FOR* Hyperoxaluria (HCC) [E72.53] INVALID FOR* Renal calculi [N20.0] INVALID FOR* Iron deficiency anemia secondary to inadequate *INVALID FOR* Moderate protein-calorie malnutrition (HCC) [E4*INVALID FOR* Renal colic [N23] INVALID FOR* Vitamin B 12 deficiency [E53.8] INVALID FOR* Status post bariatric surgery [Z98.84] INVALID FOR* Intertrigo [L30.4] INVALID FOR* Acute kidney failure, unspecified (HCC) [N17.9] INVALID FOR* Chronic pain disorder [G89.4] INVALID FOR* Hypertension [I10] INVALID FOR* Localized adiposity [E65] INVALID FOR* parts counterman (current) use of opiate analgesic [Z7*INVALID FOR* Cyst of ovary [N83.209] INVALID FOR* Other instructions from your clinician: PLAN: UA, c AND s CBC with diff continue norco 5/325 one dose every 6 hrs as needed for severe pain (max 3/day) add metoprolol xl 25mg every AM nurse bp check in 2 wks Susana Diaz III MD Prescriptions ordered this encounter Disp Refills Start End HYDROCODONE 5 MG-ACETAMINOPHEN 325 M* 90 t* 0 11/25/2017 12/25/2017 Class: Print RX Cmt: may refill early due to her recent need for additional doses during exacerbation of renal colic Route: ORAL Sig: Take 1 tablet by mouth twice daily as needed for Pain (max 3/day) for up to 30 days. Earliest Fill Date: 11/25/17 METOPROLOL SUCCINATE ER 25 MG TABLET* 30 t* 11 11/24/2017 Route: ORAL Sig: Take 1 tablet by mouth once daily. Medications Discontinued During This Encounter HYDROcodone-acetaminophen (NORCO) 5-* 35 t* 0 10/15/2017 11/24/2017 Class: Print RX Route: ORAL Sig: Take 1-2 tablets by mouth every 6 hours as needed for Pain (max 5/day) for up to 7 days. Disc: Course of therapy completed HYDROcodone-acetaminophen (NORCO) 5-* 90 t* 0 10/29/2017 11/24/2017 Class: Print RX Route: ORAL Sig: Take 1-2 tablets by mouth twice daily as needed for Pain (max 3 /day) for up to 30 days. Earliest Fill Date: 10/29/17 Disc: Course of therapy completed Encounter Status:Closed by SUSANA DIAZ III, MD on 11/24/17 EMERGENCY DEPARTMENT Observed: 11/03/2017 Status: F Source: [place] SUMMARY 6:34 AM [facility] REPOSITORY [facility] Medical Records Department [address] [place] [address] Emergency Department Summary 11/02/17 2316 MR#: [id number] Acct: [id number] Name: TRAMAINE PENG Rep #: [id number] : 1985 32 From: Cm Leyva MD PCP: Susana Diaz III, MD Status: DEP ER - ER Visit Summary Date of Service: 11/02/17 Chief Complaint: Prior surgical wound check History of Present Illness: The patient is a 32 F history of obesity with prior gastric bypass in 230 pound weight loss. Patient has had multiple surgeries and about 2 weeks ago underwent a skin graft of her lower abdomen by Dr. Mendieta of plastic surgery. Patient was concerned due to the drainage in the area and the comfort. She denies any fever. She is on [place] at home for pain. Physical Examination: Well appearing young female. Vital signs are stable and afebrile. She does not look septic or toxic in any distress. H EENT exam unremarkable. Lungs clear to auscultation. Heart regular rhythm no murmur. Abdomen soft. Nondistended normal bowel sounds no peritoneal signs. Abdomen is soft in the suprapubic area she has a 4 x 6 area of a recent skin graft. It is healing. But it is raw skin. Currently I do not see any signs of any puslike drainage, or any cellulitis. Clinically does not look infected. She is moving all 4 extremities. Neurologically she is awake and alert. Test Results: None Emergency Department Course and Treatment: Patient's wound site is can take a long time to heal. I explained that to her. It does not look acutely infected at this time. I do not think she needs antibiotics. Nurses will clean and dress the wound. She has an upcoming appointment with Dr. cinthia Soni and less than a week. Treatment Plan: Wound care and follow-up with her plastic surgeon. Disposition: Discharge Impression: Pain at recent skin graft site This note was generated with Snapwiz dictation software. It may contain incorrect words, spelling, and punctuation that were not noted in review of the chart prior to signing ED Disposition - Plan for ED Patient: Chief Complaint: Wound Check Referrals: Susana Diaz III, MD [Primary Care Provider] - What to do if you have Problems For any increased pain, shortness of breath, bleeding, nausea or vomiting, chest pain, or any unexpected problems, contact your Primary Care Provider. Call [facility] ([phone]) or report to the closest Emergency Room. Call 911 if necessary. 11/03/17633 <Electronically signed by Cm Leyva MD> Date Cm Leyva MD Cosigner Signature (If Indicated): Date CC: Susana Diaz III, MD DISCHARGE INSTRUCTION Observed: 11/03/2017 Status: F Source: [place] 6:34 AM [facility] REPOSITORY [facility] Medical Records Department [address] [place] [id number] Discharge Instruction 11/02/17 2319 MR#: [id number] Acct: [id number] Name: TRAMAINE PENG Rep #: [id number] : 1985 32 From: Cm Leyva MD PCP: Susana Diaz III, MD Status: DEP ER ED Disposition - Plan for ED Patient: Disposition: Home or Assisted Living Chief Complaint: Wound Check Instructions: ED Wound Check Post Op No Infec Referrals: Gigi Mendieta MD [STAFF PHYSICIAN] - Keep Raul appointment Additional Instructions: Keep wound clean and dry. Clean gently daily with soap and water or peroxide and water. Apply antibiotic ointment to the wound. Follow-up with Dr. vicente with your next scheduled appointment. Return if develops fever or redness to the abdominal wall but this time clinically does not look infected. What to do if you have Problems For any increased pain, shortness of breath, bleeding, nausea or vomiting, chest pain, or any unexpected problems, contact your Primary Care Provider. Call [facility] ([phone]) or report to the closest Emergency Room. Call 911 if necessary. 11/03/17633 <Electronically signed by Cm Leyva MD> Date Cm Leyva MD Cosignusman Signature (If Indicated): Date CC: Susana Diaz III, MD TOXICOLOGY SCREEN,UR Collected: 10/30/2017 Status: F Source: [facility] 8:05 PM [facility] REPOS[facility] TYPE CODE TESTS RESULT OUT OF REFERENCE UNITS RANGE LAB UPCP2 Negative Negative Phencyclidin e, Urine Result Comment: Cutoff threshold at 25 ng/mL. LAB UBENZ2 Negative Benzodiazepines, Ur Negative Result Comment: Cutoff threshold at 200 ng/mL. LAB UCOC2 Negative Cocaine, Negative Urine Result Comment: Cutoff threshold at 300 ng/mL. LAB UAMPH2 Negative Amphetamines, Urine Negative Result Comment: Cutoff threshold at 1000 ng/mL. LAB UTHC2 Negative Cannabinoids, Urine Negative Result Comment: Cutoff threshold at 50 ng/mL. LAB UOPI2 Negative Opiates, Negative Urine Result Comment: Cutoff threshold at 300 ng/mL. LAB UBARB2 Negative Barbiturates, Urine Negative Result Comment: Cutoff threshold at 200 ng/mL. LAB UETOH <11 mg/dL <11 Ethanol, Urine LAB UOXYC Negative Oxycodone, Negative Urine Result Comment: Cutoff threshold at 100 ng/mL. Comment: Immunoassay screen only. Cross reactivity with other substances can occur with immunoassay screening. Detection of any drug(s) in this urine toxicology panel is presumptive only. These tests are for med ical purposes only and should not be used for compliance monitoring, legal, or forensic use. Samples should be within normal physiological conditions (e.g. pH). This assay does not include adulteration/specimen validity testing. In clinical settings, confirmatory testing is at the practitioner's discretion [1]. If clinically indicated, confirmation by high specificity, quantitative methodology, which includes adulteration/spec imen validity testing, may be requested on the same specimen through Client Services ([phone]) if contacted within 48 hours of initial testing. [1]Substance Abuse and Mental Health Services Administration (2012). Clinical Drug Testing in Primary Care Technical Assistance Publication Series 32. Department of Health and Human Services, [place], p.10. These tests were developed and their performance characteristics determined by [facility] [place] ( [facility]). They have not been cleared or a pproved by the FDA. [facility] is regulated under CLIA as qualified to perform high complexity testing. These tests are used for clinical purposes. They should not be regarded as investigational or for research. Performed By: #### [id number] #### [facility] [address] [place], [place] [address] HISTORY AND PHYSICAL Observed: 10/25/2017 Status: F Source: [place] EXAM 12:18 AM [facility] REPOSITORY [facility] Medical Records Department [address] [place] [address] History and Physical 10/18/17 1907 MR#: [id number] Acct: [id number] Name: TRAMAINE PENG Rep #: [id number] : 1985 32 From: Gigi Mendieta MD PCP: Susana Diaz III, MD Status: [place] [facility] [place] [facility] History and Physical Date of Admission: 10/19/17 HISTORY OF PRESENT ILLNESS 32-year-old woman presents with a painful nonhealing ulcer lower anterior abdominal wall and pubic area after developing an infected hematoma that resulted in surgery on 05/03/17 where she underwent surgical preparation lower anterior abdominal wall and pubic area with incision and drainage and excisional debridement infected seroma/hematoma (250 cm2). Her initial surgery was on 04/20/17 where she underwent excision 8 cm painful soft tissue mass pubic area with 20 cm complex closure. Operative culture showed Staphylococcus aureus and was treated with antibiotics. After discharge, she had another culture done on 05/30/17 which showed Staphylococcus aureus and Morganella morganii and was treated with antibiotics. Her initial infected wound was treated with the VAC and then changed to Silver dressings daily because of too much pain with the VAC. During the wound care, the patient developed persistent swelling in her mons pubis area resulting in a lymphedema-type picture. It was recommended to the patient to excise this lymphedema tissue in her genitalia involving the mons pubis with a partial vulvectomy to help debulk the area which should help with her persistent pain in the nonhealing ulcer mons pubis area. On 07/20/17 she underwent surgical preparation vulva involving mons pubis with excision painful infected ulcer and excision associated painful lymphedema with partial vulvectomy (120 cm2). She has persistent pain in the area of the ulceration in the mons pubis area. She presents today for surgical options for treatment. 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 Nonhealing infected hematoma ulcer lower anterior abdominal wall and pubic area Anemia of chronic disease. History of MRSA. PAST SURGICAL HISTORY 2 Kidney stones removed gallbladder removed Gastric bypass - 2015 Laparoscopic Og-en-Y procedure at [facility] Abdominal panniculectomy - 09/17/16 Incision and drainage postop hematoma abdominal wall - 09/17/16 Incision and drainage infected postop abdominal wall seroma - 10/20/16 Left thyroid removed Excision 8 cm painful soft tissue mass pubic area with 20 cm complex closure - 04/20/17 Surgical preparation lower anterior abdominal wall and pubic area with incision and drainage and excisional debridement infected seroma/hematoma (250 cm2) - 05/03/17 Surgical preparation vulva involving mons pubis with excision painful infected ulcer and excision associated painful lymphedema with partial vulvectomy (120 cm2) - 07/20/17 FAMILY HISTORY Mother (biol.) - Has Family History of Anxiety Mother (biol.) - Has Family History of Bleeding Disease Mother (biol.) - Has Family History of Depression Mother (biol.) - Has Family History of Hypertension Mother (biol.) - Has Family History of High Cholesterol Mother (biol.) - Has Family History of Other Cancer Father (biol.) - Has Family History of Diabetes Father (biol.) - Has Family History of Hypertension PGF - Has Family History of Colon Cancer PGF - Has Family History of Diabetes PGF - Has Family History of Heart Disease SOCIAL HISTORY Alcohol Use - no Patient has never smoked. MEDICATIONS NEXPLANON IMPLANT (ETONOGESTREL IMPL) subdermal FLOMAX 0.4 MG ORAL CAPSULE (TAMSULOSIN HCL) Two tablets by mouth twice daily LISINOPRIL 40 MG ORAL TABLET (LISINOPRIL) One tablet by mouth twice daily NORCO 5-325 MG ORAL TABLET (HYDROCODONE-ACETAMINOPHEN) as needed VITAMIN D3 15759 UNIT ORAL TABLET (CHOLECALCIFEROL) 1 tab once a week ELAVIL TABLET (AMITRIPTYLINE HCL TABS) One tablet by mouth daily ALLERGIES NSAIDS (Critical) * GABAPENTIN (Critical) TORADOL (Critical) * TRAMADOL (Critical) REVIEW OF SYSTEMS General-denies fever. Has some fatigue. Has had major weight loss since her gastric bypass procedure done a year and a half ago. She lost 180 pounds. Ear nose and throat-denies nasal congestion. Denies sore throat. Eyes-denies glaucoma. Denies cataracts. Endocrine-denies excessive thirst or urination. Skin-has an abdominal wall skin crease intertrigo for which she uses powders for relief. She has lymphedema genitalia involving mons pubis. Has nonhealing ulcer in the mons pubis area. Musculoskeletal-denies joint pain, joint stiffness, weakness of muscles and joints, neck pain, and arthritis. Neurologic-has headaches. Cardiovascular-denies chest pain. Has some fatigue. Denies shortness of breath with exertion. Psychiatric-denies anxiety. Denies depression. Respiratory-denies shortness of breath. Denies chronic cough. Gastrointestinal-denies nausea, vomiting, diarrhea, constipation. Denies abdominal bloating. Hematologic-denies abnormal bruising or bleeding. Genitourinary-denies hematuria and urinary frequency. PHYSICAL EXAMINATION General-well developed, well nourished, in no acute distress. HEENT-pupils equal round and reactive to light. Extraocular muscles intact. Throat is clear. Neck-supple and nontender. No cervical adenopathy. Lungs-clear to auscultation. Heart-regular rate and rhythm. Abdomen-soft and nondistended. There is abdominal wall scarring from previous abdominal panniculectomy. No abdominal masses noted. No ventral hernias noted. In the mons pubis area is a painful nonhealing ulcer that measures 6.5 x 2 cm. Some granulation tissue is present. Tenderness to palpation. No evidence of infection. Occasional bleeding at the time of the dressing changes. Extremities-full range of motion. No axillary adenopathy. No inguinal adenopathy. Radial pulses and dorsalis pedis pulses are palpable. Neuro-cranial nerves II through XII grossly intact. ASSESSMENT 1. Nonhealing painful infected ulcer vulva involving the mons pubis area. 2. 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 3. Lymphedema genitalia involving mons pubis. PLAN Because of her persistent pain, I recommend excisional debridement of this nonhealing ulcer. Will send tissue to Pathology for analysis to rule out carcinoma and to Microbiology for culture. A positive culture will necessitate antibiotic therapy. Reconstruction will be with skin grafting. Donor site will be the abdominal wall. Post discharge, she will followup at the Wound Center. Surgery will be done under general anesthesia with a surgical observation overnight stay in the hospital. The patient was informed of the risks and complications of the procedure including alternatives to surgery. These were discussed with the patient personally. The patient voices understanding and wishes to proceed. 10/25/17 0018 <Electronically signed by Gigi Mendieta MD> Date Gigi Mendieta MD Cosigner Signature: Date (if applicable) CC: Susana Diaz III, MD; Gigi Mendieta MD; [facility] Signed OPERATIVE REPORT Observed: 10/22/2017 Status: F Source: [place] 1:30 PM [facility] REPOSITORY [facility] Medical Records Department [address] [place] [address] Operative Report 10/19/17 1637 MR#: [id number] Acct: [id number] Name: TRAMAINE PENG Rep #: [id number] : 1985 32 From: Gigi Mendieta MD PCP: Susana Diaz III, MD Status: [facility] [place] [facility] Report of Operation Date of Procedure: 10/19/17 Pre-Operative Diagnosis: 1. Nonhealing painful infected ulcer vulva involving the mons pubis area. 2. 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 3. Lymphedema genitalia involving mons pubis. Post-Operative Diagnosis: Same. Surgery/Procedure Performed:: Surgical preparation vuvla involving the mons pubis area with excisional debridement nonhealing ulcer with STSG reconstruction from the right lateral abdominal wall (15 cm2) and placement of ANGIE NPWT. Description of Surgical Findings:: 2-year-old woman presents with a painful nonhealing ulcer lower anterior abdominal wall and pubic area after developing an infected hematoma that resulted in surgery on 05/03/17 where she underwent surgical preparation lower anterior abdominal wall and pubic area with incision and drainage and excisional debridement infected seroma/hematoma (250 cm2). Her initial surgery was on 04/20/17 where she underwent excision 8 cm painful soft tissue mass pubic area with 20 cm complex closure. Operative culture showed Staphylococcus aureus and was treated with antibiotics. After discharge, she had another culture done on 05/30/17 which showed Staphylococcus aureus and Morganella morganii and was treated with antibiotics. Her initial infected wound was treated with the VAC and then changed to Silver dressings daily because of too much pain with the VAC. During the wound care, the patient developed persistent swelling in her mons pubis area resulting in a lymphedema-type picture. It was recommended to the patient to excise this lymphedema tissue in her genitalia involving the mons pubis with a partial vulvectomy to help debulk the area which should help with her persistent pain in the nonhealing ulcer mons pubis area. On 07/20/17 she underwent surgical preparation vulva involving mons pubis with excision painful infected ulcer and excision associated painful lymphedema with partial vulvectomy (120 cm2). She has persistent pain in the area of the ulceration in the mons pubis area. Patient was informed of the risks and complications of the procedure including alternatives to surgery. These were discussed with the patient personally. Patient voices understanding and wishes to proceed. Size of skin graft mons pubis area - 6 x 2.5 cm. testing and regulating chief: Danyell Kelly. Type of Anesthesia:: General Specimen's removed: Nonhealing ulcer mons pubis to Pathology and Microbiology. Drains: None. Estimated Blood Loss (mL): 20 ml. Description of Procedure: The patient was taken to the OR in the supine position and was placed under general anesthesia. Her vulva and lower abdominal wall area was prepped and draped in the usual fashion. SCD's were placed for DVT prophylaxis. Perioperative antibiotics were given intravenously. Using xylocaine with epinephrine, the donor area on the right lateral abdominal wall and the vulva involving the mons pubis ulcer were infiltrated. After waiting 5 minutes for the anesthetic to take effect, I excised an ellipse of skin from the right lateral abdominal wall down into the subcutaneous tissue. I removed the subcutaneous tissue and the deeper dermis thus fashioning a thick split thickness skin graft. The skin graft was placed in saline. I excised some more subcutaneous tissue to aid in wound closure. Hemostasis was obtained with electrocautery. The wound was irrigated with saline. The donor incision was then closed in multiple layers with 2-0 Vicryl simple running suture for the Rubens's fascial layer. The deep dermis and subcutaneous tissue was approximated with 3-0 Monocryl interrupted sutures. The skin was approximated with 3-0 V-lock unidirectional barbed running subcuticular suture. This was followed with Histoacryl skin tissue adhesive. Gauze dressing was applied. I then excised the nonhealing ulcer vulva involving the mons pubis with a scalpel. A curette was also used. Good healthy bleeding was seen. Tissue was sent to Pathology for analysis to rule out carcinoma and tissue was sent to Microbiology for culture. A positive culture will necessitate antibiotic therapy. The size of the defect after the excisional debridement was 6 x 2.5 cm. The wound was irrigated with saline. The split thickness skin graft was then placed on stretch and meshed with a 15 blade. It was then placed on the ulcer and secured to the skin edges with 3-0 Chromic simple interrupted sutures. 3-0 Chromic sutures were also used for central quilting stabilization. Antibiotic ointment was applied to the skin graft followed by Mepitel nonadherent dressing. The ANGIE NPWT device was then placed over the graft for stabilization. Good suction was noted as the device was functioning. Patient tolerated the procedure well and was sent to PACU in satisfactory condition. She will be sent home on antibiotics and pain medication. She will followup at the Wound Center next week for take down of the ANGIE NPWT device and for a skin graft check and to discuss the pathology report and the microbiology report. A positive culture may necessitate antibiotic modification. Grafts/Implants Used: None. - Complications None. - Admit VTE Documentation VTE Present on Admission: No VTE Mechan Device Prophylaxis: SCD's VTE Pharm Prophylaxis ordered?: No Code Visit Surgery Charges CPT - 79495 ICD-10 - N76.6, I89.0 05088 N76.6, I89.0 10/22/17 1330 <Electronically signed by Gigi Mendieta MD> Date Gigi Mendieta MD CC: Susana Diaz III, MD; Gigi Mendieta MD; [facility] Signed DISCHARGE INSTRUCTION Observed: 10/19/2017 Status: F Source: [place] 10:45 AM [facility] REPOSITORY [facility] Medical Records Department [address] [place] [address] Instructions for Home/Discharge Instructions 10/19/17 1041 MR#: [id number] Acct: [id number] Name: TRAMAINE PENG Rep #: [id number] : 1985 32 From: Gigi Mendieta MD PCP: Susana Diaz III, MD Status[place] [facility] You will use the following diet at home:: No restrictions Discharge Activity: May not drive while taking narcotic pain medications., May Not Shower - until the graft dressing is removed on the mons pubis area. Return to work on:: 10/21/17 - Tentative May shower in (days): 6 - may shower after graft dressing removed in wound center May resume sexual activity in: 10-14 days Weight Bearing Status: Weight bearing as tolerated Call your doctor if your incision/area has: Continuous Slow Oozing, Sudden Increased Bleeding, Increased Pain/ Swelling, Increased Redness, Foul Smelling Discharge, Swelling at the incision site Call your doctor if you observe: Fever of 101 or Higher, Coldness, Increased Pain, Shortness of breath, Chest pain, Calf discomfort, Uncontrolled pain Change Dressing in (Days):: 2 - right lateral abdominal wall dressing only Remove Dressing in (days):: 6 - will remove skin graft dressing on mons pubis in wound center Cleanse incision/area with: - - may get wounds wet in the shower after skin graft dressing on mons pubis removed in wound center. Allergies/Adverse Reactions: Allergies methocarbamol Allergy (Verified 10/18/17 08:46) Chest tightness gabapentin Adverse Reaction (Verified 10/18/17 08:46) MADE ME WALK SIDEWAYS ketorolac tromethamine [From Toradol] Adverse Reaction (Verified 10/18/17 08:46) Upset Stomach NSAIDS (Non-Steroidal Anti-Inflamma Adverse Reaction (Verified 10/18/17 08:46) gastric bipass not supposed to take tramadol Adverse Reaction (Verified 10/18/17 08:46) Upset Stomach Medications to take at Discharge Amitriptyline HCl [Elavil] 50 mg PO QHS PRN 04/30/17 Ergocalciferol [Vitamin D] 50,000 unit PO QWEEK 04/30/17 Etonogestrel [Nexplanon] 68 mg SQ UD 04/30/17 Potassium Chloride [K-Dur] 10 meq PO BID 04/30/17 Tamsulosin HCl [Flomax] 0.4 mg PO DAILY PRN 04/30/17 Lisinopril [Zestril] 40 mg PO BID 05/30/17 Ondansetron [Zofran Odt] 4 mg PO Q8H PRN PRN #20 tablet 06/01/17 Cyanocobalamin [Vitamin B12] 1,000 mcg IM Q30D 07/06/17 Hydrocodone/Acetaminophen [[place] 10-325 Tablet] 1 ea PO 4X/DAY PRN PRN 7 Days #30 tab 10/19/17 levoFLOXacin tablet [Levaquin tablet] 500 mg PO DAILY #14 tab 10/19/17 The following prescriptions were given: Hydrocodone/Acetaminophen [[place] 10-325 Tablet] 1 ea PO 4X/DAY PRN PRN 7 Days #30 tab PRN Reason: Pain levoFLOXacin tablet [Levaquin tablet] 500 mg PO DAILY #14 tab Primary Care Physician: Susana Diaz III, MD [Primary Care Provider] - Test Results: Test results from this visit will be discussed in further detail at your follow-up appointment, if applicable. Please Follow Up With: Gigi Mendieta MD - call [phone] if questions. When: wednesday10/25/17 at 830am at [facility]. Proposed Discharge Date: 10/19/17 10/19/17 1045 <Electronically signed by Gigi Mendieta MD> Date Gigi Mendieta MD CC: Susana Diaz III, MD; [facility] Observed: 10/19/2017 Status: F Source: [place] CULTURE, DEEP WOUND 9:40 AM [facility] REPOSITORY Order Date: 10/21/16 Comments: NONHEALING ULCER MONS PUBIC, COLLECTED IN OR @0940 Gram Stain Gram Stain Rare Red Blood Cells 2+ White Blood Cells No organisms seen Wound Culture * This is an amended result. * A prior result that was reported as final has been changed. 10/23/17 07 by BRANDI Previously reported as: #2 There are no CLSI standards for interpretation of this Drug/Organism combination. ORGANISM 1: Staphylococcus aureus Amount Growth Very Rare ORGANISM 2: Corynebacterium striatum Amount Growth Growth Staphylococcus aureus: REACTION Benzylpenicillin NF 0.25 R Cefoxitin *NF - Clindamycin $$ <=0.25 S Inducable Clindamycin [place] - Erythromycin $ <=0.25 S Gentamicin $ <=0.5 S Levofloxacin $ 0.25 S Linezolid $$$$ 2 S Moxifloxicin *NF <=0.25 S Oxacillin NF <=0.25 S Tigecycline $$$$ <=0.12 S Rifampin $$ <=0.5 S Tetracycline NF <=1 S Trimethoprim/Sulfametho $ <=10 S Vancomycin $ <=0.5 S (NF) indicates non-formulary drug at [facility]. Approval by Infectious Disease Specialist required before non-formulary drugs may be ordered and/or dispensed. * CLSI guidelines does not recommend testing of cephalosporins. This interpretation is deduced from Beta-lactam/penicillin results. Cult, Anaerobic No anaerobic bacteria isolated. Performed By: #### M100.1500 #### [facility] [place], [address] Observed: 10/19/2017 Status: F Source: [place] CULTURE, FUNGUS W/ 9:40 [facility] [id number] REPOSITORY Comments: NONHEALING ULCER MONS PUBIS, COLLECTED IN [place]@ 0940 Is this test to exclude patient from TB Isolation? Sudarshan Sam,[id number] TESTING PERFORMED AT [facility]. ORIGINAL REPORT ON FILE IN LAB CONTAINS ADDITIONAL TEST SITE INFORMATION. CUF No yeast or mold isolated after [address] TESTING PERFORMED AT [facility]. ORIGINAL REPORT ON FILE IN LAB CONTAINS ADDITIONAL TEST SITE INFORMATION. Fungus Stain No yeast or mold observed. Performed By: #### M600.1900 #### [facility] [address] [place], [address] ULCER Observed: 10/19/2017 Status: F Source: [place] 9:00 [facility] REPOSITORY Patient: TRAMAINE PENG : 1985 () Acct Num: [id number] Phys: Gigi Mendieta MD Unit Num: [id number] [place] [facility] Specimen: [id number] Received: 10/19/17 - 1243 Spec Type: ULCER TISSUES TISSUES: Mons pubis GROSS DESCRIPTION Received in fixative is one container labeled with the patient's name and designated nonhealing ulcer mons pubis. The specimen consists of multiple pieces of motley-pink soft tissue that in aggregate measure 2.5 x 2 x 0.3 cm. The entire specimen is submitted in one cassette. / MORENA:lucinda 10/19/17 TC:2 CPT: 23032 HEADER OPERATION: Surgical prep, mons pubis with excisional debridement, nonhealing PRE-OP DIAGNOSIS: Nonhealing, painful, infected hematoma ulcer mons pubis area TISSUE SUBMITTED: Nonhealing ulcer mons pubis MICROSCOPIC DESCRIPTION Slides are reviewed. MICROSCOPIC DIAGNOSIS Nonhealing ulcer mons pubis: Pieces of skin and fibroconnective tissue with focal ulceration, acute and chronic inflammation and granulation tissue reaction. MORENA:lucinda 10/20/17 Signed Anival Prieto 10/20/17 <signature on file> Performed By: #### PUL #### [facility] [address] [place], [place], [address] CBC-COMPLETE BLOOD CNT Collected: 10/19/2017 Status: F Source: [place] NO DIFF 7:44 AM [facility] REPOSITORY TYPE CODE TESTS RESULT OUT OF RANGE REFERENCE UNITS LAB L100.1000 4.4-11.0 K/mm3 Normal WBC 5.1 LAB L100.1200 4.2-5.4 M/mm3 Normal RBC 4.60 LAB L100.1300 12.0-15.0 g/dl Low HGB 10.5 LAB L100.1400 37-47 % Low HCT 33.8 LAB L100.1500 81-99 fL Low MCV 73.5 LAB L100.1600 27.0-32.0 pg Low MCH 22.8 LAB L100.1700 32-36 g/gl Low MCHC 31.1 LAB L100.1810 11.6-14.6 % High RDW CV 16.5 LAB L100.1820 35.1-43.9 fl Normal RDW SD 43.2 LAB L100.1900 150-450 K/mm3 Normal PLT 385 LAB L100.2000 6.2-12.0 fl Normal MPV 11.1 Performed By: #### L100.0500, L300.3900, L300.4310 #### [facility] [address] [place], [place], [address] PROTHROMBIN TIME W/INR Collected: 10/19/2017 Status: F Source: [place] 7:44 AM [facility] REPOSITORY TYPE CODE TESTS RESULT OUT OF RANGE REFERENCE UNITS LAB L300.4150 11.7-14.9 SECONDS Normal PROTIME 12.7 LAB L300.4200 Normal INR 1.0 Performed By: #### L100.0500, L300.3900, L300.4310 #### [facility] [address] [place], [address] PARTIAL THROMBOPLAST Collected: 10/19/2017 Status: F Source: [place] TIME 7:44 AM [facility] REPOSITORY TYPE CODE TESTS RESULT OUT OF RANGE REFERENCE UNITS LAB L300.4310 24.1-36.2 Seconds Normal PTT 24.8 Performed By: #### L100.0500, L300.3900, L300.4310 #### [facility] [place], [address] ,URINE Collected: 10/19/2017 Status: F Source: [place] 7:30 AM [facility] REPOSITORY TYPE CODE TESTS RESULT OUT OF REFERENCE UNITS RANGE LAB L400.8000 Negative Normal HCGUQUAL Negative Result Comment: Very dilute urine specimens, as indicated by a low specific gravity, may not contain ocean import representative levels of hCG. If is still suspected, a first morning urine specimen should be collected 48 hours later and tested. Performed By: #### L400.7600 #### [facility] [place], [address] Observed: 10/04/2017 Status: F Source: [place] CULTURE, DEEP WOUND 12:00 PM [facility] REPOSITORY Comments: LOWER ABDOMINAL ULCER Gram Stain Gram Stain Red Cell Stroma Rare Gram variable roni Wound Culture There are no CLSI standards for interpretation of this Drug/Organism combination. ORGANISM 1: Corynebacterium amycolatum Amount Growth 3+ ORGANISM 2: Corynebacterium striatum Amount Growth 3+ Cult, Anaerobic No anaerobic bacteria isolated. Performed By: #### M100.1500 #### [facility] [address] [place], [place], [address] PROGRESS Observed: 10/01/2017 Status: COMPLETED Source: EU[place] 3:00 PM [facility] REPOSITORY HNO ID: [id number] Author: Susana Diaz III Service: (none) Author Type: Physician Type: Progress Notes Filed: 10/01/2017 4:20 PM Note Text: SUBJECTIVE: This is a 32 year old female that is here today for 1. onset of rash on L ant collier, face, L upper back since in the sun (wore sunscreen spf 50) fishing on 09/25. Now face hurts. and generalized itching. She started bactroban topical for her face 2 days ago. No new meds. 2. since the sun exposure she has felt dizzy, nausea, mind racing. Fever up to 101.7 in the eves. starting 09/26. Has awakened in a cold sweat 3 times in the past wk. Pt stopped 1 mo of levaquin daily on 07/31. 3. post op wound in suprapubic area bled on 09/21 treated by wound nurse. 4. mole check on L breast, under L breast. No recent change. PAST MEDICAL HISTORY Diagnosis Date - BENIGN HYPERTENSION 11/16/2006 - Calcium oxalate renal stones 2009 - Calculus of ureter 09/30/2007 s/p URS and stent with hydro. - Cervical disc disorder with radiculopathy 04/15/2010 - Chronic postoperative pain 02/27/201603/2015, gastric bypass surgery. 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 Chronic post op (gastric bypass) pain - Lumbar disc disorder with myelopathy 06/04/2010 - Moderate protein-calorie malnutrition (HCC) 05/04/2017 - Morbid obesity with BMI of 50.0-59.9, adult (HCC) 09/12/2014 - Non-alcoholic fatty liver disease - OBESITY NOS 06/01/2005 - Obstructive sleep apnea Approval received from [facility] 02/01/2015 for CPAP @ 10 approval - 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 tamsulosin ER (FLOMAX) 0.4 mg cp24 0.8mg by mouth once per day only as needed for renal colic lisinopril (ZESTRIL) 40 mg tablet Take 1 tablet by mouth twice daily. cyanocobalamin (VITAMIN B-12) 1,000 mcg/mL soln Inject 1 mL intramuscularly once every month. 1 DOSE MONTHLY cephALEXin (KEFLEX) 500 mg capsule Take 500 mg by mouth twice daily. ferrous sulfate 325 mg (65 mg iron) tablet Take 1 tablet by mouth twice daily with meals. (Patient taking differently: Take 150 mg by mouth twice daily with meals. ) ketoconazole (NIZORAL) 2 % cream Apply 1 application to affected area twice daily. amitriptyline (ELAVIL) 50 mg tablet Take 1 tablet by mouth daily at bedtime. cholecalciferol, Vitamin D3, (VITAMIN D3) 50,000 unit cap capsule one capsule once/wk acetaminophen (TYLENOL) 500 mg tablet Take 2 tablets by mouth every 6 hours. amLODIPine (NORVASC) 10 mg tablet Take 1 tablet by mouth once daily. ETONOGESTREL (NEXPLANON SDRM) by SUBDERMAL route. Current Facility-Administered Medications on File Prior to Visit: cyanocobalamin 1,000 mcg injection FAMILY HISTORY Problem Relation Age of Onset - Brain tumor [OTHER] Mother Benign - Hypertension Father - Diabetes Father - Diverticulitis [OTHER] Father - COPD Paternal Grandfather - Colon Cancer Paternal Grandfather - Diabetes Maternal Grandfather - Kidney stone [OTHER] Maternal Uncle - ESRD [OTHER] Other Maternal cousin. Agenesic/atrophic kidney Social History Substance Use Topics - Smoking status: Never Smoker - Smokeless tobacco: Never Used - Alcohol use Yes Comment: rarely-2 drinks per month BP 139/78 Pulse 81 Resp 18 LMP 09/10/2017 (Approximate) . OBJECTIVE: APPEARANCE Well appearing, alert, in no acute distress, well-hydrated, well nourished., Obese ABDOMEN open wound low suprapubic area with clean edges and scant discharge. SKIN superficial skin sores on forehead, L cheek, chin, post R ear w/o discharge. Erythematous 1 [address] deg sunburn L ant LLE and L scapular areas . normal brown nevi L breast and upper abd. ASSESSMENT: sunburn ?heat exhaustion fever due to infected facial sores/impetigo obesity normal nevi vit B 12 deficiency PLAN: keflex 500mg three times/day x 7 days try hydroxyzine 25mg at bedtime as needed for sleep/itching discontinue bactroban for now same other medications vitamin B12 1000 mcg IM Susana Diaz III MD CNOV Observed: 10/01/2017 Status: COMPLETED Source: EURE 3:00 PM [facility] REPOSITORY Office Visit (FAMPWS) TRAMAINE PENG ([id number]) 1985 F Date Time Provider Department 10/01/17 3:00 PM SUSANA DIAZ III During your visit today, we recorded the following information about you: Pulse Respiration Blood pressure Last Period 81/minute 18/minute 139/78 09/10/17 Susana Diaz III MD 10/01/2017 4:20 PM Signed SUBJECTIVE: This is a 32 year old female that is here today for 1. onset of rash on L ant collier, face, L upper back since in the sun (wore sunscreen spf 50) fishing on 09/25. Now face hurts. and generalized itching. She started bactroban topical for her face 2 days ago. No new meds. 2. since the sun exposure she has felt dizzy, nausea, mind racing. Fever up to 101.7 in the eves. starting 09/26. Has awakened in a cold sweat 3 times in the past wk. Pt stopped 1 mo of levaquin daily on 07/31. 3. post op wound in suprapubic area bled on 09/21 treated by wound nurse. 4. mole check on L breast, under L breast. No recent change. PAST MEDICAL HISTORY Diagnosis Date - BENIGN HYPERTENSION 11/16/2006 - Calcium oxalate renal stones 2009 - Calculus of ureter 09/30/2007 s/p URS and stent with hydro. - Cervical disc disorder with radiculopathy 04/15/2010 - Chronic postoperative pain 02/27/201603/2015, gastric bypass surgery. Pain from severed nerves and muscle - COMMON MIGRAINE INTRACTABLE Improved - Gallbladder sludge 05/31/2013 - GERD (gastroesophageal reflux disease) 09/12/2014 - History of Og-en-Y gastric bypass - Hyperparathyroidism due to vitamin D deficiency (HCC) 04/05/2013 - Iron deficiency anemia secondary to inadequate dietary iron intake 05/04/2017 - halfway prescription opiate use 02/27/2016 Chronic post op (gastric bypass) pain - Lumbar disc disorder with myelopathy 06/04/2010 - Moderate protein-calorie malnutrition (HCC) 05/04/2017 - Morbid obesity with BMI of 50.0-59.9, adult ([facility]) 09/12/2014 - Non-alcoholic fatty liver disease - OBESITY NOS 06/01/2005 - Obstructive sleep apnea Approval received from [facility] 02/01/2015 for CPAP @ 10 approval - 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 tamsulosin ER (FLOMAX) 0.4 mg cp24 0.8mg by mouth once per day only as needed for renal colic lisinopril (ZESTRIL) 40 mg tablet Take 1 tablet by mouth twice daily. cyanocobalamin (VITAMIN B-12) 1,000 mcg/mL soln Inject 1 mL intramuscularly once every month. 1 DOSE MONTHLY cephALEXin (KEFLEX) 500 mg capsule Take 500 mg by mouth twice daily. ferrous sulfate 325 mg (65 mg iron) tablet Take 1 tablet by mouth twice daily with meals. (Patient taking differently: Take 150 mg by mouth twice daily with meals. ) ketoconazole (NIZORAL) 2 % cream Apply 1 application to affected area twice daily. amitriptyline (ELAVIL) 50 mg tablet Take 1 tablet by mouth daily at bedtime. cholecalciferol, Vitamin D3, (VITAMIN D3) 50,000 unit cap capsule one capsule once/wk acetaminophen (TYLENOL) 500 mg tablet Take 2 tablets by mouth every 6 hours. amLODIPine (NORVASC) 10 mg tablet Take 1 tablet by mouth once daily. ETONOGESTREL (NEXPLANON SDRM) by SUBDERMAL route. Current Facility-Administered Medications on File Prior to Visit: cyanocobalamin 1,000 mcg injection FAMILY HISTORY Problem Relation Age of Onset - Brain tumor [OTHER] Mother Benign - Hypertension Father - Diabetes Father - Diverticulitis [OTHER] Father - COPD Paternal Grandfather - Colon Cancer Paternal Grandfather - Diabetes Maternal Grandfather - Kidney stone [OTHER] Maternal Uncle - ESRD [OTHER] Other Maternal cousin. Agenesic/atrophic kidney Social History Substance Use Topics - Smoking status: Never Smoker - Smokeless tobacco: Never Used - Alcohol use Yes Comment: rarely-2 drinks per month BP 139/78 Pulse 81 Resp 18 LMP 09/10/2017 (Approximate) . OBJECTIVE: APPEARANCE Well appearing, alert, in no acute distress, well- hydrated, well nourished., Obese ABDOMEN open wound low suprapubic area with clean edges and scant discharge. SKIN superficial skin sores on forehead, L cheek, chin, post R ear w/o discharge. Erythematous 1 st deg sunburn L ant LLE and L scapular areas . normal brown nevi L breast and upper abd. ASSESSMENT: sunburn ?heat exhaustion fever due to infected facial sores/impetigo obesity normal nevi vit B 12 deficiency PLAN: keflex 500mg three times/day x 7 days try hydroxyzine 25mg at bedtime as needed for sleep/itching discontinue bactroban for now same other medications vitamin B12 1000 mcg IM JANE Barton MD, III MD 10/01/2017 3:29 PM Signed PLAN: keflex 500mg three times/day x 7 days try hydroxyzine 25mg at bedtime as needed for sleep discontinue bactroban for now same other medications Susana Diaz III MD Referring Provider: SELF [200] Allergies As of Date: 10/01/2017 Noted Allergy Reaction TORADOL (KETOROLAC TROMETHAMINE) 05/30/2015 8 - GI Upset GABAPENTIN 02/27/2016 14 - Other: See Comments Comments: Cognitive intolerance METHOCARB 04/01/2016 14 - Other: See Comments TRAMADOL 10/17/2013 8 - GI Upset Date Reviewed: 10/01/2017 Reviewed by: Nicol ([facility]) LINH Espino - Fully Assessed Reason for Visit: Mole check [Other] Derm Problem [33] Primary Visit Diagnosis:Impetigo [L01.00] Other Visit Diagnoses:Sunburn [L55.9] Benign nevus of skin [D22.9] Chronic insomnia [F51.04] Vitamin B 12 deficiency [E53.8] Order(s):hydrOXYzine HCl (ATARAX) 25 mg tabletTake 1 tablet by mouth at bedtime as needed for Itching/Rash or Anxiety (sleep).Disp: 30 tabletRfl: 3 cephALEXin (KEFLEX) 500 mg capsuleTake 1 capsule by mouth three times daily for 7 days.Disp: 21 capsuleRfl: 0 Prescriptions as of 10/01/2017 Sig: HYDROXYZINE HCL 25 MG TABLET Take 1 tablet by mouth at bed* CEPHALEXIN 500 MG CAPSULE Take 1 capsule by mouth three* HYDROCODONE 5 MG-ACETAMINOPHE* Take 1-2 tablets by mouth twi* POTASSIUM CITRATE ER 10 MEQ (* Take 1 tablet by mouth twice * TAMSULOSIN 0.4 MG CAPSULE 0.8mg by mouth once per day o* LISINOPRIL 40 MG TABLET Take 1 tablet by mouth twice * CYANOCOBALAMIN (VIT B-12) 1,0* Inject 1 mL intramuscularly o* FERROUS SULFATE 325 MG (65 MG* Take 1 tablet by mouth twice * Patient taking differently: Take 150 mg by mouth twice da* KETOCONAZOLE 2 % TOPICAL CREAM Apply 1 application to affect* AMITRIPTYLINE 50 MG TABLET Take 1 tablet by mouth daily * CHOLECALCIFEROL (VITAMIN D3) * one capsule once/wk ACETAMINOPHEN 500 MG TABLET Take 2 tablets by mouth every* AMLODIPINE 10 MG TABLET Take 1 tablet by mouth once d* NEXPLANON SDRM by SUBDERMAL route. 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] INVALID FOR*07/04/2015 BENIGN HYPERTENSION [I10] INVALID FOR* Intractable migraine without aura [G43.019] INVALID FOR* Cervical disc disorder with radiculopathy [M50.*INVALID FOR*09/07/2016 Lumbar disc disorder with myelopathy [M51.06] INVALID FOR*09/07/2016 Calcium oxalate renal stones [N20.0] INVALID FOR* Non-alcoholic fatty liver disease [K76.0] Vitamin D deficiency [E55.9] INVALID FOR*09/07/2016 Hyperparathyroidism due to vitamin D deficiency*INVALID FOR*09/07/2016 Gallbladder sludge [K82.8] INVALID FOR*11/09/2013 Physical deconditioning [R53.81] INVALID FOR*09/07/2016 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 Chronic postoperative pain [G89.28] INVALID FOR* More... Bleeding [R58] INVALID FOR*10/14/2016 More... Cellulitis of abdominal wall [L03.311] INVALID FOR*12/23/2016 Vitamin D deficiency [E55.9] INVALID FOR* Hyperuricuria [R82.99] INVALID FOR* Hyperuricosuria [R82.99] INVALID FOR* Hyperoxaluria (HCC) [E72.53] INVALID FOR* Renal calculi [N20.0] INVALID FOR* Iron deficiency anemia secondary to inadequate *INVALID FOR* Moderate protein-calorie malnutrition (HCC) [E4*INVALID FOR* Renal colic [N23] INVALID FOR* Vitamin B 12 deficiency [E53.8] INVALID FOR* Status post bariatric surgery [Z98.84] INVALID FOR* Other instructions from your clinician: PLAN: keflex 500mg three times/day x 7 days try hydroxyzine 25mg at bedtime as needed for sleep discontinue bactroban for now same other medications Susana Diaz III MD Prescriptions ordered this encounter Disp Refills Start End HYDROXYZINE HCL 25 MG TABLET 30 t* 3 10/01/2017 Route: ORAL Sig: Take 1 tablet by mouth at bedtime as needed for Itching/Rash or Anxiety (sleep). CEPHALEXIN 500 MG CAPSULE 21 c* 0 10/01/2017 10/08/2017 Route: ORAL Sig: Take 1 capsule by mouth three times daily for 7 days. Medications Discontinued During This Encounter cephALEXin (KEFLEX) 500 mg capsule 10/01/2017 Class: Historical Med Route: ORAL Sig: Take 500 mg by mouth twice daily. Disc: Course of therapy completed Encounter Status:Closed by SUSANA DIAZ III, MD on 10/01/17 EMERGENCY DEPARTMENT Observed: 09/21/2017 Status: F Source: [place] SUMMARY 9:45 PM [facility] REPOSITORY [facility] Medical Records Department [address] [place] [address] Emergency Department Summary 09/21/17 1639 MR#: [id number] Acct: [id number] Name: TRAMAINE PENG Rep #: [id number] : 1985 32 From: Brian Barkley PCP: Susana Diaz III, MD Status: REG ER - ER Visit Summary Date of Service: 09/21/17 Chief Complaint: Fever, wound evaluation History of Present Illness: The patient is a 32 F status post vulvectomy by Dr. Mendieta, postop infections, with a wound VAC. Patient states last surgery was in July. Wound VAC was removed a month ago. Last follow-up with 2 weeks ago is doing well. States over last 2 days developed fever, T-max 101.7 orally. Patient is today noted increasing bleeding from the site, there is green drainage. Nursing saw patient today sent the patient to the ED. Denies any cough or urinary symptoms. Last menstrual period a week ago. Pain increasing over 2 days. Physical Examination: General: Alert and oriented 3, no acute distress HEENT: Normocephalic, atraumatic. Moist mucosa membranes Neck: supple, nontender. Cardiovascular: Regular rate and rhythm, no murmurs Respiratory: Normal breath sounds, symmetric, no distress Abdomen: Soft, nondistended. Suprapubic pelvis region 3 x 4 cm area of wound, good granulations, no exudative drainage. There is incision from left lateral into the vaginal region, clean, dry, intact. There are swollen labia bilaterally, tender to palpation. Extremities: Nontender, no edema, pulses intact 4 Neuro: no focal neurological deficits. Test Results: WBC 6. Creatinine 0.68. HCG negative. CT pelvis IV contrast no abscess noted. Emergency Department Course and Treatment: Patient with subjective fever and increasing drainage over the past 2 days. Workup initiated rule out abscess. White count normal. CT pelvis negative. She was given Zofran in the ED and 1 dose of morphine. She has prescription for hydrocodone and Zofran at home. I did discuss with Dr. Mendieta, patient will follow-up in the wound clinic, continue normal wound care. No antibiotics at this time. Patient updated all questions were answered. Of note there was delay in obtaining the read from radiology, patient was updated on delay. Treatment Plan: [] Disposition: Discharge Impression: Wound evaluation This note was generated with Snapwiz dictation software. It may contain incorrect words, spelling, and punctuation that were not noted in review of the chart prior to signing ED Disposition - Plan for ED Patient: Disposition: Home or Assisted Living Chief Complaint: Wound Check Diagnosis: Encounter for evaluation of wound Instructions: Wound Care Referrals: Susana Diaz III, MD [Primary Care Provider] - Additional Instructions: Follow-up with wound clinic with Dr. Mendieta What to do if you have Problems For any increased pain, shortness of breath, bleeding, nausea or vomiting, chest pain, or any unexpected problems, contact your Primary Care Provider. Call [facility] ([phone]) or report to the closest Emergency Room. Call 911 if necessary. 09/21/17 0812 <Electronically signed by Brian Barkley> Date Brian Barkley Cosigner Signature (If Indicated): Date CC: Susana Diaz III, MD CBC W/DIFF, AUTOMATED Collected: 09/21/2017 Status: F Source: [place] 4:50 PM [facility] REPOSITORY TYPE CODE TESTS RESULT OUT OF RANGE REFERENCE UNITS LAB L100.1000 4.4-11.0 K/mm3 Normal WBC 6.0 LAB L100.1200 4.2-5.4 M/mm3 Normal RBC 4.42 LAB L100.1300 12.0-15.0 g/dl Low HGB 10.4 LAB L100.1400 37-47 % Low HCT 33.1 LAB L100.1500 81-99 fL Low MCV 74.9 LAB L100.1600 27.0-32.0 pg Low MCH 23.5 LAB L100.1700 32-36 g/gl Low MCHC 31.4 LAB L100.1810 11.6-14.6 % Normal RDW CV 14.6 LAB L100.1820 35.1-43.9 fl Normal RDW SD 39.5 LAB L100.1900 150-450 K/mm3 Normal PLT 395 LAB L100.2000 6.2-12.0 fl Normal MPV 11.1 LAB L100.2100 47-70 % Normal NEUT% 57.5 LAB L100.2200 19-41 % Normal LY% 30.4 LAB L100.2300 0-10 % Normal MONO% 9.4 LAB L100.2400 0-5 % Normal EO% 2.0 LAB L100.2500 0-1 % Normal BASO% 0.7 LAB L100.2550 0.0-0.9 % Normal IM GRAN % 0.000 Result Comment: IG% - Immature Granulocytes (promyelocytes, myelocytes and metamyelocytes) > 1% indicates that a LEFT SHIFT is Present. LAB L100.2620 2.0-7.7 X10 3/uL Normal Absolute Neut 3.4 LAB L100.2720 0.83-4.51 X10 3/ul Normal Absolute Lymph 1.82 LAB L100.4500 Normal SMEAR COMMENT SCANNED Result Comment: AUTO DIFF OK Performed By: #### L100.0100 #### [facility] [address] [place], [address] COMPREHENSIVE METABOLIC Collected: 09/21/2017 Status: F Source: [facility] 4:50 PM [facility] REPOSITORY TYPE CODE TESTS RESULT OUT OF RANGE REFERENCE UNITS LAB L501.0100 74-106 mg/dL Normal GLU 80 Result Comment: Please note revised GLUCOSE reference range effective 2017. LAB L501.1000 7-18 mg/dL Normal BUN 16 LAB L501.1100 0.55-1.02 mg/dL Normal CREAT,SERUM 0.68 Result Comment: The validity of the calculated GFR AND GFRAA in patients over 70 years has not been determined. Clinical correlation is essential. LAB L501.1110 >60 mL/min Normal EST GFR 106 Result Comment: Non- GFR Calc LAB L501.1115 >60 mL/min Normal EST GFR - AA 129 Result Comment: GFR Calc LAB L501.1255 ml/min Normal Estimated CRCL 112.22 LAB L501.1300 10-20 RATIO High BUN/CRE 23.5 LAB L501.1500 6.4-8. g/dL 2 T PROT Normal 7.9 LAB L501.1800 3.2-5. g/dL 0 ALB Normal 4.5 LAB L501.1950 2.2-4. g/dL 2 GLOB Normal 3.4 LAB L501.2000 0.9-2. RATIO 4 A/G Normal 1.3 LAB L501.2200 8.5-10 mg/dL .1 CA Normal 9.4 LAB L501.4100 15-37 U/L Low AST 10 LAB L501.4305 45-117 U/L ALK P Normal 72 LAB L501.4405 13-56 U/L ALT Normal 26 LAB L501.4600 0.20-1 mg/dL .00 T BILI Normal 0.20 LAB L501.5300 136-14 mmol/L 5 NA Normal 139 LAB L501.5600 3.5-5. mmol/L 1 K Normal 3.7 LAB L501.5900 98-107 mmol/L CL Normal 104 LAB L501.6100 21.0-3 mmol/L 2.0 CO2 Normal 27.0 LAB L501.6200 5-15 GAP Normal 8 Performed By: #### L500.4050 #### [facility] [address] [facility]. [place], [place], [id number] ,SERUM,HCG QUALI. Collected: Status: F Source: [place] 09/21/2017 4:50 PM [facility] REPOSITORY TYPE CODE TESTS RESULT OUT OF REFERENCE UNITS RANGE LAB L700.6700 =>Qualitative mIU/mL Normal HCG Qual < 1 triggr LAB L700.7000 0-9 Nonpreg Negative Normal HCGSQUAL NEGATIVE Performed By: #### L700.6800 #### [facility] [address] [facility] [place], [place], [id number] PROTHROMBIN TIME W/INR Collected: 09/21/2017 Status: F Source: [place] 4:50 PM [facility] REPOSITORY TYPE CODE TESTS RESULT OUT OF RANGE REFERENCE UNITS LAB L300.4150 11.7-14.9 SECONDS Normal PROTIME 13.3 LAB L300.4200 Normal INR 1.0 Performed By: #### L300.3900, L300.4310 #### [facility] [address] [facility] [place], [address] PARTIAL THROMBOPLAST Collected: 09/21/2017 Status: F Source: [place] TIME 4:50 PM [facility] REPOSITORY TYPE CODE TESTS RESULT OUT OF RANGE REFERENCE UNITS LAB L300.4310 24.1-36.2 Seconds Normal PTT 27.9 Performed By: #### L300.3900, L300.4310 #### [facility] [address] [place], [address] PELVIS WITH IV Observed: 09/21/2017 Status: F Source: [place] CONTRAST 4:38 PM [facility] REPOSITORY [facility] Imaging Services [address] [place] [address] Pelvis WITH IV Contrast MR#: [id number] Acct: [id number] Name: TRAMAINE PENG Rep #: [id number] : 1985 F 32 From: Jett Bradford MD PCP: Susana Diaz III, MD Status: REG ER Study: Pelvis WITH IV Contrast Date of Exam: 09/21/17 Exam# [id number] Ordering Dr: Brian Clark DO STUDY: CT PELVIS WITH CONTRAST REASON FOR EXAM: Female, 32 years old. Abscesses and fever. RADIATION DOSAGE (If Supplied By Facility): CTDIvol = ( 28.21 ) mGy, DLP = ( 915.79 ) mGycm TECHNIQUE: Transaxial imaging of the pelvis was performed without oral contrast. 75 ml of Isovue 300 contrast was administered intravenously. Individualized dose optimization techniques were used for this CT. COMPARISON: Compared to numerous previous examinations including 07/12/2017. FINDINGS: Again seen is a markedly abnormal appearance to the abdominal wall directly anterior to the symphysis pubis were there is a focal defect of the subcutaneous tissues, and extensive scar formation but no focal fluid collection or abscess is seen.. Question an overlying bandage or wound VAC. No extension of inflammatory process or abscess into the pelvis. Normal urinary bladder. Normal visualized small intestine. Normal visualized colon. There is no pelvic fluid. There is no pelvic lymphadenopathy or mass lesion. Normal visualized pelvic arteries. Normal osseous structures. CT/Pelvis WITH IV Contrast IMPRESSION: No evidence for focal abscess within the pelvis or in the abdominal wall. Again seen is a prominent lower abdominal wall defect anterior and superior to the symphysis pubis where there is extensive scar formation and absence of subcutaneous fat tissue. Electronically Signed: Jett Bradford MD at 21:37 EDT , Service support , CC: Susana Diaz III, MD; Brian Clark Manager [employer]: Signed CNOV Observed: 09/06/2017 Status: COMPLETED Source: [place] 3:40 PM [facility] REPOSITORY Office Visit (FAMPWS) TRAMAINE PENG ([id number]) 1985 F Date Time Provider Department 09/06/17 3:40 PM SUSANA DIAZ III FAMPWS During your visit today, we recorded the following information about you: Pulse Respiration Blood pressure Weight 83/minute 16/minute 177/95 89.8 kg Last Period 08/18/17 Susana Diaz III MD 09/06/2017 4:18 PM Signed SUBJECTIVE: This is a 32 year old female that is here today for Chronic Medical Conditions. 1. s/p plastic surgery suprapubic /pubic area under care of Dr Mendieta but surgeon is not providing pain meds. Has run out of [place]. Using regularly for post op pain or renal stone pain. Good pain control. She will need 2 additional surgeries for her labia. 2. hx of recurrent renal stones. Now on urocit. Normal renal function. Drinking lots of fluids. PAST MEDICAL HISTORY Diagnosis Date - BENIGN HYPERTENSION 11/16/2006 - Calcium oxalate renal stones 2009 - Calculus of ureter 09/30/2007 s/p URS and stent with hydro. - Cervical disc disorder with radiculopathy 04/15/2010 - Chronic postoperative pain 02/27/201603/2015, gastric bypass surgery. 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 02/27/2016 Chronic post op (gastric bypass) pain - Lumbar disc disorder with myelopathy 06/04/2010 - Moderate protein-calorie malnutrition (HCC) 05/04/2017 - Morbid obesity with BMI of 50.0-59.9, adult ([facility]) 09/12/2014 - Non-alcoholic fatty liver disease - OBESITY NOS 06/01/2005 - Obstructive sleep apnea Approval received from [facility] 02/01/2015 for CPAP @ 10 approval - 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 lisinopril (ZESTRIL) 40 mg tablet Take 1 tablet by mouth twice daily. cyanocobalamin (VITAMIN B-12) 1,000 mcg/mL soln Inject 1 mL intramuscularly once every month. 1 DOSE MONTHLY cephALEXin (KEFLEX) 500 mg capsule Take 500 mg by mouth twice daily. ferrous sulfate 325 mg (65 mg iron) tablet Take 1 tablet by mouth twice daily with meals. (Patient taking differently: Take 150 mg by mouth twice daily with meals. ) ketoconazole (NIZORAL) 2 % cream Apply 1 application to affected area twice daily. amitriptyline (ELAVIL) 50 mg tablet Take 1 tablet by mouth daily at bedtime. cholecalciferol, Vitamin D3, (VITAMIN D3) 50,000 unit cap capsule one capsule once/wk acetaminophen (TYLENOL) 500 mg tablet Take 2 tablets by mouth every 6 hours. amLODIPine (NORVASC) 10 mg tablet Take 1 tablet by mouth once daily. potassium citrate ER (UROCIT-K 10) 10 mEq (1,080 mg) TbER Take 1 tablet by mouth twice daily. ETONOGESTREL (NEXPLANON SDRM) by SUBDERMAL route. Current Facility-Administered Medications on File Prior to Visit: cyanocobalamin 1,000 mcg injection FAMILY HISTORY Problem Relation Age of Onset - Brain tumor [OTHER] Mother Benign - Hypertension Father - Diabetes Father - Diverticulitis [OTHER] Father - COPD Paternal Grandfather - Colon Cancer Paternal Grandfather - Diabetes Maternal Grandfather - Kidney stone [OTHER] Maternal Uncle - ESRD [OTHER] Other Maternal cousin. Agenesic/atrophic kidney Social History Substance Use Topics - Smoking status: Never Smoker - Smokeless tobacco: Never Used - Alcohol use Yes Comment: rarely-2 drinks per month BP 177/95 Pulse 83 Resp 16 Wt 89.8 kg (198 lb) LMP 08/18/2017 (Approximate) BMI 31.96 kg/m? . OBJECTIVE: APPEARANCE Well appearing, alert, in no acute distress, well- hydrated, well nourished., Obese, Appearance: well dressed well groomed, cooperative and pleasant Behavior: good eye contact Speech: fluent and coherent Mood: euthymic Affect: appropriate Perceptions: none Thought process: goal directed Thought Content: normal Intelligence level: normal Insight: good Judgment: good Lab Results for TRAMAINE PENG ( ) as of 09/06/2017 15:36 Ref. Range 08/02/2017 09:06 Sodium Latest Ref Range: 136 - 144 mmol/L 138 Potassium Latest Ref Range: 3.7 - 5.1 mmol/L 4.1 Chloride Latest Ref Range: 97 - 105 mmol/L 100 CO2 Latest Ref Range: 22 - 30 mmol/L 26 BUN Latest Ref Range: 7 - 21 mg/dL 10 Creatinine Latest Ref Range: 0.58 - 0.96 mg/dL 0.60 Glucose Latest Ref Range: 74 - 99 mg/dL 78 Calcium Latest Ref Range: 8.5 - 10.2 mg/dL 8.8 Albumin Latest Ref Range: 3.9 - 4.9 g/dL 3.8 (L) Anion Gap Latest Ref Range: 9 - 18 mmol/L 12 eGFR- Unknown >60 eGFR-All Other Races Latest Units: . >60 Prealbumin Latest Ref Range: 17 - 36 mg/dL 18 ASSESSMENT: recurrent renal stones chronic post op pain, labia care home use of prescribed opiates PLAN: healthy diet and exercise as able use norco judiciously for pain resistant to tylenol continue urocit to prevent renal stones use tamsulosin as needed to pass renal stones return to office 3 mos to monitor use of controlled substance Susana Diaz III MD [facility] website checked and validated. All prescriptions have been APPROPRIATELY filled. No suspicious activity was identified.- 09/06/2017 by JANE Barton MD, III MD 09/06/2017 3:53 PM Signed PLAN: healthy diet and exercise as able use norco judiciously for pain resistant to tylenol continue urocit to prevent renal stones use tamsulosin as needed to pass renal stones return to office 3 mos to monitor use of controlled substance Susana Diaz III MD Referring Provider: SELF [[id number]] Allergies As of Date: 09/06/2017 Noted Allergy Reaction TORADOL (KETOROLAC TROMETHAMINE) 05/30/2015 8 - GI Upset GABAPENTIN 02/27/2016 14 - Other: See Comments Comments: Cognitive intolerance METHOCARB 04/01/2016 14 - Other: See Comments TRAMADOL 10/17/2013 8 - GI Upset Date Reviewed: 09/06/2017 Reviewed by: Nicol ([facility]) LINH Espino - Fully Assessed Reason for Visit: Recheck [92] B-12 Injection [247] Primary Visit Diagnosis:Renal calculi [N20.0] Other Visit Diagnoses:Post-op pain [G89.18] halfway prescription opiate use [Z79.891] Order(s):HYDROcodone-acetaminophen (NORCO) 5-325 mg per tabletTake 1-2 tablets by mouth twice daily as needed for Pain for up to 30 days.Disp: 90 tabletRfl: 0 potassium citrate ER (UROCIT-K 10) 10 mEq (1,080 mg) TbERTake 1 tablet by mouth twice daily.Disp: 60 tabletRfl: 11 Prescriptions as of 09/06/2017 Sig: HYDROCODONE 5 MG-ACETAMINOPHE* Take 1-2 tablets by mouth twi* POTASSIUM CITRATE ER 10 MEQ (* Take 1 tablet by mouth twice * TAMSULOSIN 0.4 MG CAPSULE 0.8mg by mouth once per day o* LISINOPRIL 40 MG TABLET Take 1 tablet by mouth twice * CYANOCOBALAMIN (VIT B-12) 1,0* Inject 1 mL intramuscularly o* CEPHALEXIN 500 MG CAPSULE Take 500 mg by mouth twice da* FERROUS SULFATE 325 MG (65 MG* Take 1 tablet by mouth twice * Patient taking differently: Take 150 mg by mouth twice da* KETOCONAZOLE 2 % TOPICAL CREAM Apply 1 application to affect* AMITRIPTYLINE 50 MG TABLET Take 1 tablet by mouth daily * CHOLECALCIFEROL (VITAMIN D3) * one capsule once/wk ACETAMINOPHEN 500 MG TABLET Take 2 tablets by mouth every* AMLODIPINE 10 MG TABLET Take 1 tablet by mouth once d* NEXPLANON SDRM by SUBDERMAL route. 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] INVALID FOR*07/04/2015 BENIGN HYPERTENSION [I10] INVALID FOR* Intractable migraine without aura [G43.019] INVALID FOR* Cervical disc disorder with radiculopathy [M50.*INVALID FOR*09/07/2016 Lumbar disc disorder with myelopathy [M51.06] INVALID FOR*09/07/2016 Calcium oxalate renal stones [N20.0] INVALID FOR* Non-alcoholic fatty liver disease [K76.0] Vitamin D deficiency [E55.9] INVALID FOR*09/07/2016 Hyperparathyroidism due to vitamin D deficiency*INVALID FOR*09/07/2016 Gallbladder sludge [K82.8] INVALID FOR*11/09/2013 Physical deconditioning [R53.81] INVALID FOR*09/07/2016 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 Chronic postoperative pain [G89.28] INVALID FOR* More... Bleeding [R58] INVALID FOR*10/14/2016 More... Cellulitis of abdominal wall [L03.311] INVALID FOR*12/23/2016 Vitamin D deficiency [E55.9] INVALID FOR* Hyperuricuria [R82.99] INVALID FOR* Hyperuricosuria [R82.99] INVALID FOR* Hyperoxaluria (HCC) [E72.53] INVALID FOR* Renal calculi [N20.0] INVALID FOR* Iron deficiency anemia secondary to inadequate *INVALID FOR* Moderate protein-calorie malnutrition (HCC) [E4*INVALID FOR* Renal colic [N23] INVALID FOR* Vitamin B 12 deficiency [E53.8] INVALID FOR* Status post bariatric surgery [Z98.84] INVALID FOR* Other instructions from your clinician: PLAN: healthy diet and exercise as able use norco judiciously for pain resistant to tylenol continue urocit to prevent renal stones use tamsulosin as needed to pass renal stones return to office 3 mos to monitor use of controlled substance Susana Julia Diaz III MD Prescriptions ordered this encounter Disp Refills Start End HYDROCODONE 5 MG-ACETAMINOPHEN 325 M* 90 t* 0 09/06/2017 10/06/2017 Class: Print RX Route: ORAL Sig: Take 1-2 tablets by mouth twice daily as needed for Pain for up to 30 days. POTASSIUM CITRATE ER 10 MEQ (1,080 M* 60 t* 11 09/06/2017 Route: ORAL Sig: Take 1 tablet by mouth twice daily. Medications Discontinued During This Encounter HYDROcodone-acetaminophen (NORCO) 5-* 90 t* 0 08/07/2017 09/06/2017 Class: Print RX Route: ORAL Sig: Take 1-2 tablets by mouth twice daily as needed for Pain for up to 30 days. Disc: Reason for discontinue is not on file. potassium citrate ER (UROCIT-K 10) 1* 120 * 3 04/06/2016 09/06/2017 Class: Print RX Route: ORAL Sig: Take 1 tablet by mouth twice daily. Disc: Reason for discontinue is not on file. Encounter Status:Closed by SUSANA DIAZ III, MD on 09/06/17 PROGRESS Observed: 09/06/2017 Status: COMPLETED Source: [place] 3:31 PM [facility] [place] REPOSITORY [facility] ID: [id number] Author: Susana Diaz III Service: (none) Author Type: Physician Type: Progress Notes Filed: 09/06/2017 4:18 PM Note Text: SUBJECTIVE: This is a 32 year old female that is here today for Chronic Medical Conditions. 1. s/p plastic surgery suprapubic /pubic area under care of Dr Mendieta but surgeon is not providing pain meds. Has run out of [place]. Using regularly for post op pain or renal stone pain. Good pain control. She will need 2 additional surgeries for her labia. 2. hx of recurrent renal stones. Now on urocit. Normal renal function. Drinking lots of fluids. PAST MEDICAL HISTORY Diagnosis Date - BENIGN HYPERTENSION 11/16/2006 - Calcium oxalate renal stones 2009 - Calculus of ureter 09/30/2007 s/p URS and stent with hydro. - Cervical disc disorder with radiculopathy 04/15/2010 - Chronic postoperative pain 02/27/201603/2015, gastric bypass surgery. Pain from severed nerves and muscle - COMMON MIGRAINE INTRACTABLE Improved - Gallbladder sludge 05/31/2013 - GERD (gastroesophageal reflux disease) 09/12/2014 - History of Og-en-Y gastric bypass - Hyperparathyroidism due to vitamin D deficiency (HCC) 04/05/2013 - Iron deficiency anemia secondary to inadequate dietary iron intake 05/04/2017 - halfway prescription opiate use 02/27/2016 Chronic post op (gastric bypass) pain - Lumbar disc disorder with myelopathy 06/04/2010 - Moderate protein-calorie malnutrition (HCC) 05/04/2017 - Morbid obesity with BMI of 50.0-59.9, adult ([facility]) 09/12/2014 - Non-alcoholic fatty liver disease - OBESITY NOS 06/01/2005 - Obstructive sleep apnea Approval received from [facility] 02/01/2015 for CPAP @ 10 approval - 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 lisinopril (ZESTRIL) 40 mg tablet Take 1 tablet by mouth twice daily. cyanocobalamin (VITAMIN B-12) 1,000 mcg/mL soln Inject 1 mL intramuscularly once every month. 1 DOSE MONTHLY cephALEXin (KEFLEX) 500 mg capsule Take 500 mg by mouth twice daily. ferrous sulfate 325 mg (65 mg iron) tablet Take 1 tablet by mouth twice daily with meals. (Patient taking differently: Take 150 mg by mouth twice daily with meals. ) ketoconazole (NIZORAL) 2 % cream Apply 1 application to affected area twice daily. amitriptyline (ELAVIL) 50 mg tablet Take 1 tablet by mouth daily at bedtime. cholecalciferol, Vitamin D3, (VITAMIN D3) 50,000 unit cap capsule one capsule once/wk acetaminophen (TYLENOL) 500 mg tablet Take 2 tablets by mouth every 6 hours. amLODIPine (NORVASC) 10 mg tablet Take 1 tablet by mouth once daily. potassium citrate ER (UROCIT-K 10) 10 mEq (1,080 mg) TbER Take 1 tablet by mouth twice daily. ETONOGESTREL (NEXPLANON SDRM) by SUBDERMAL route. Current Facility-Administered Medications on File Prior to Visit: cyanocobalamin 1,000 mcg injection FAMILY HISTORY Problem Relation Age of Onset - Brain tumor [OTHER] Mother Benign - Hypertension Father - Diabetes Father - Diverticulitis [OTHER] Father - COPD Paternal Grandfather - Colon Cancer Paternal Grandfather - Diabetes Maternal Grandfather - Kidney stone [OTHER] Maternal Uncle - ESRD [OTHER] Other Maternal cousin. Agenesic/atrophic kidney Social History Substance Use Topics - Smoking status: Never Smoker - Smokeless tobacco: Never Used - Alcohol use Yes Comment: rarely-2 drinks per month BP 177/95 Pulse 83 Resp 16 Wt 89.8 kg (198 lb) LMP 08/18/2017 (Approximate) BMI 31.96 kg/m? . OBJECTIVE: APPEARANCE Well appearing, alert, in no acute distress, well-hydrated, well nourished., Obese, Appearance: well dressed well groomed, cooperative and pleasant Behavior: good eye contact Speech: fluent and coherent Mood: euthymic Affect: appropriate Perceptions: none Thought process: goal directed Thought Content: normal Intelligence level: normal Insight: good Judgment: good Lab Results for TRAMAINE PENG ( ) as of 09/06/2017 15:36 Ref. Range 08/02/2017 09:06 Sodium Latest Ref Range: 136 - 144 mmol/L 138 Potassium Latest Ref Range: 3.7 - 5.1 mmol/L 4.1 Chloride Latest Ref Range: 97 - 105 mmol/L 100 CO2 Latest Ref Range: 22 - 30 mmol/L 26 BUN Latest Ref Range: 7 - 21 mg/dL 10 Creatinine Latest Ref Range: 0.58 - 0.96 mg/dL 0.60 Glucose Latest Ref Range: 74 - 99 mg/dL 78 Calcium Latest Ref Range: 8.5 - 10.2 mg/dL 8.8 Albumin Latest Ref Range: 3.9 - 4.9 g/dL 3.8 (L) Anion Gap Latest Ref Range: 9 - 18 mmol/L 12 eGFR- Unknown >60 eGFR-All Other Races Latest Units: . 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 All prescriptions have been APPROPRIATELY filled. No suspicious activity was identified.- 09/06/2017 by Susana Diaz III MD CNNURSE Observed: 09/03/2017 Status: COMPLETED Source: [place] 12:45 PM [facility] REPOSITORY Nurse Visit (FAMPWS) MADHAVIPRASADRASHEEDTRAMAINE ([id number]) 1985 F Date Time Provider Department 09/03/17 12:[address] NURSE LIANG During your visit today, we recorded the following information about you: Katie To LPN 09/03/2017 12:33 PM Signed Patient presents for PPD read only. Denies any problems at this time. Katie To LPN Referring Provider: SUSANA DIAZ III [[id number]] Allergies As of Date: 09/03/2017 Noted Allergy Reaction TORADOL (KETOROLAC TROMETHAMINE) 05/30/2015 8 - GI Upset GABAPENTIN 02/27/2016 14 - Other: See Comments Comments: Cognitive intolerance METHOCARB 04/01/2016 14 - Other: See Comments TRAMADOL 10/17/2013 8 - GI Upset Date Reviewed: 08/07/2017 Reviewed by: Michelle Galaviz Ma - Fully Assessed Reason for Visit: PPD Read [9454] Primary Visit Diagnosis:Screening examination for pulmonary tuberculosis [Z11.1] Prescriptions as of 09/03/2017 Sig: TAMSULOSIN 0.4 MG CAPSULE 0.8mg by mouth once per day o* HYDROCODONE 5 MG-ACETAMINOPHE* Take 1-2 tablets by mouth twi* LISINOPRIL 40 MG TABLET Take 1 tablet by mouth twice * CYANOCOBALAMIN (VIT B-12) 1,0* Inject 1 mL intramuscularly o* CEPHALEXIN 500 MG CAPSULE Take 500 mg by mouth twice da* FERROUS SULFATE 325 MG (65 MG* Take 1 tablet by mouth twice * Patient taking differently: Take 150 mg by mouth twice da* KETOCONAZOLE 2 % TOPICAL CREAM Apply 1 application to affect* AMITRIPTYLINE 50 MG TABLET Take 1 tablet by mouth daily * CHOLECALCIFEROL (VITAMIN D3) * one capsule once/wk ACETAMINOPHEN 500 MG TABLET Take 2 tablets by mouth every* AMLODIPINE 10 MG TABLET Take 1 tablet by mouth once d* POTASSIUM CITRATE ER 10 MEQ (* Take 1 tablet by mouth twice * NEXPLANON SDRM by SUBDERMAL route. 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] INVALID FOR*07/04/2015 BENIGN HYPERTENSION [I10] INVALID FOR* Intractable migraine without aura [G43.019] INVALID FOR* Cervical disc disorder with radiculopathy [M50.*INVALID FOR*09/07/2016 Lumbar disc disorder with myelopathy [M51.06] INVALID FOR*09/07/2016 Calcium oxalate renal stones [N20.0] INVALID FOR* Non-alcoholic fatty liver disease [K76.0] Vitamin D deficiency [E55.9] INVALID FOR*09/07/2016 Hyperparathyroidism due to vitamin D deficiency*INVALID FOR*09/07/2016 Gallbladder sludge [K82.8] INVALID FOR*11/09/2013 Physical deconditioning [R53.81] INVALID FOR*09/07/2016 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 Chronic postoperative pain [G89.28] INVALID FOR* More... Bleeding [R58] INVALID FOR*10/14/2016 More... Cellulitis of abdominal wall [L03.311] INVALID FOR*12/23/2016 Vitamin D deficiency [E55.9] INVALID FOR* Hyperuricuria [R82.99] INVALID FOR* Hyperuricosuria [R82.99] INVALID FOR* Hyperoxaluria (HCC) [E72.53] INVALID FOR* Renal calculi [N20.0] INVALID FOR* Iron deficiency anemia secondary to inadequate *INVALID FOR* Moderate protein-calorie malnutrition (HCC) [E4*INVALID FOR* Renal colic [N23] INVALID FOR* Vitamin B 12 deficiency [E53.8] INVALID FOR* Status post bariatric surgery [Z98.84] INVALID FOR* Encounter Status:Closed by KATIE TO LPN on 09/03/17 PROGRESS Observed: 09/03/2017 Status: COMPLETED Source: [place] 12:26 PM [facility] REPOSITORY [facility] ID: [id number] Author: Katie To LPN Service: (none) Author Type: (none) Type: Progress Notes Filed: 09/03/2017 12:33 PM Note Text: Patient presents for PPD read only. Denies any problems at this time. Katie To LPN PROGRESS Observed: 09/01/2017 Status: COMPLETED Source: [place] 11:52 AM [facility] REPOSITORY [facility] ID: [id number] Author: Katie To LPN Service: (none) Author Type: (none) Type: Progress Notes Filed: 09/01/2017 11:59 AM Note Text: Patient presents for PPD administration only for [facility] Volunte[facility] program (patient advocacy program). Denies any problems at this time. Tolerated injection well. Katie To LPN CNNURSE Observed: 09/01/2017 Status: COMPLETED Source: [place] 11:45 AM [facility] REPOSITORY Nurse Visit (FAMPWS) TRAMAINE PENG ([id number]) 1985 F Date Time Provider Department 09/01/17 11:[address] NURSE BRADLEYPWS During your visit today, we recorded the following information about you: Katie To LPN 09/01/2017 11:59 AM Signed Patient presents for PPD administration only for [facility] program (patient advocacy program). Denies any problems at this time. Tolerated injection well. Katie To LPN Referring Provider: SUSANA DIAZ III [[id number]] Allergies As of Date: 09/01/2017 Noted Allergy Reaction TORADOL (KETOROLAC TROMETHAMINE) 05/30/2015 8 - GI Upset GABAPENTIN 02/27/2016 14 - Other: See Comments Comments: Cognitive intolerance METHOCARB 04/01/2016 14 - Other: See Comments TRAMADOL 10/17/2013 8 - GI Upset Date Reviewed: 08/07/2017 Reviewed by: Michelle Galaviz Ma - Fully Assessed Reason for Visit: Imm/Inj [58] Primary Visit Diagnosis:Screening examination for pulmonary tuberculosis [Z11.1] Prescriptions as of 09/01/2017 Sig: HYDROCODONE 5 MG-ACETAMINOPHE* Take 1-2 tablets by mouth twi* LISINOPRIL 40 MG TABLET Take 1 tablet by mouth twice * TAMSULOSIN 0.4 MG CAPSULE 0.4 mg by mouth once per day * CYANOCOBALAMIN (VIT B-12) 1,0* Inject 1 mL intramuscularly o* CEPHALEXIN 500 MG CAPSULE Take 500 mg by mouth twice da* FERROUS SULFATE 325 MG (65 MG* Take 1 tablet by mouth twice * Patient taking differently: Take 150 mg by mouth twice da* KETOCONAZOLE 2 % TOPICAL CREAM Apply 1 application to affect* AMITRIPTYLINE 50 MG TABLET Take 1 tablet by mouth daily * CHOLECALCIFEROL (VITAMIN D3) * one capsule once/wk ACETAMINOPHEN 500 MG TABLET Take 2 tablets by mouth every* AMLODIPINE 10 MG TABLET Take 1 tablet by mouth once d* POTASSIUM CITRATE ER 10 MEQ (* Take 1 tablet by mouth twice * NEXPLANON SDRM by SUBDERMAL route. 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] INVALID FOR*07/04/2015 BENIGN HYPERTENSION [I10] INVALID FOR* Intractable migraine without aura [G43.019] INVALID FOR* Cervical disc disorder with radiculopathy [M50.*INVALID FOR*09/07/2016 Lumbar disc disorder with myelopathy [M51.06] INVALID FOR*09/07/2016 Calcium oxalate renal stones [N20.0] INVALID FOR* Non-alcoholic fatty liver disease [K76.0] Vitamin D deficiency [E55.9] INVALID FOR*09/07/2016 Hyperparathyroidism due to vitamin D deficiency*INVALID FOR*09/07/2016 Gallbladder sludge [K82.8] INVALID FOR*11/09/2013 Physical deconditioning [R53.81] INVALID FOR*09/07/2016 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 Chronic postoperative pain [G89.28] INVALID FOR* More... Bleeding [R58] INVALID FOR*10/14/2016 More... Cellulitis of abdominal wall [L03.311] INVALID FOR*12/23/2016 Vitamin D deficiency [E55.9] INVALID FOR* Hyperuricuria [R82.99] INVALID FOR* Hyperuricosuria [R82.99] INVALID FOR* Hyperoxaluria (HCC) [E72.53] INVALID FOR* Renal calculi [N20.0] INVALID FOR* Iron deficiency anemia secondary to inadequate *INVALID FOR* Moderate protein-calorie malnutrition (HCC) [E4*INVALID FOR* Renal colic [N23] INVALID FOR* Vitamin B 12 deficiency [E53.8] INVALID FOR* Status post bariatric surgery [Z98.84] INVALID FOR* Encounter Status:Closed by KATIE TO LPN on 09/01/17 OPERATIVE REPORT Observed: 08/17/2017 Status: F Source: [place] 2:52 AM [facility] REPOSITORY [facility] Medical Records Department [address] [place] [address] Operative Report 07/20/17 2348 MR#: [id number] Acct: [id number] Name: TRAMAINE PENG Rep #: [id number] : 1985 32 From: Gigi Mendieta MD PCP: Susana Diaz III, MD Status: [place] [facility] [place] [facility] [place] of Operation Date of Procedure: 07/20/17 Pre-Operative Diagnosis: 1. Nonhealing infected hematoma ulcer lower anterior abdominal wall and mons pubis area. 2. Lymphedema genitalia involving mons pubis. 3. 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 Post-Operative Diagnosis: Same. Surgery/Procedure Performed:: Surgical preparation vulva involving mons pubis with excision painful infected ulcer and excision associated painful lymphedema with partial vulvectomy (120 cm2). Description of Surgical Findings:: 32-year-old woman presents with a painful nonhealing ulcer lower anterior abdominal wall and pubic area after developing an infected hematoma that resulted in surgery on 05/03/17 where she underwent surgical preparation lower anterior abdominal wall and pubic area with incision and drainage and excisional debridement infected seroma/hematoma (250 cm2). Her initial surgery was on 04/20/17 where she underwent excision 8 cm painful soft tissue mass pubic area with 20 cm complex closure. Operative culture showed Staphylococcus aureus and was treated with antibiotics. After discharge, she had another culture done on 05/30/17 which showed Staphylococcus aureus and Morganella morganii and was treated with antibiotics. Her initial infected wound was treated with the VAC and then changed to Silver dressings daily because of too much pain with the VAC. During the wound care, the patient developed persistent swelling in her mons pubis area resulting in a lymphedema-type picture. It was recommended to the patient to excise this lymphedema tissue in her genitalia involving the mons pubis with a partial vulvectomy to help debulk the area which should help with her persistent pain. Today the patient denies any fever. She has persistent pain in the nonhealing ulcer mons pubis area. Today the patient underwent surgical preparation vulva involving mons pubis with excision painful infected ulcer and excision associated painful lymphedema with partial vulvectomy (120 cm2). Size of defect vulva involving mons pubis - 15 x 8 x 2 cm. testing and regulating chief: Ean Fraga. Type of Anesthesia:: General Specimen's removed: 1. Nonhealing ulcer mons pubis and lymphedema tissue vulva involving mons pubis to Pathology and Microbiology. 2. Mons pubis swab for MRSA Wound DNA by PCR. Drains: None. Estimated Blood Loss (mL): 100 ml. Description of Procedure: The patient was taken to OR in supine position and was placed under general anesthesia. Her lower anterior abdominal wall, medial thigh, and vulval area were prepped and draped in the usual fashion. Using xylocaine with epinephrine, the ulcer and the area of lymphedema on her genitalia were infiltrated. After waiting 5 minutes for the anesthetic to take effect, I proceeded with surgical preparation vulva involving mons pubis with excision painful infected ulcer and excision associated painful lymphedema with partial vulvectomy. Excision was carried down to the underlying fascia and inferiorly to the labial tissue. Tissue was sent to Pathology for analysis to rule out carcinoma as well as to Microbiology for culture. A positive culture may necessitate antibiotic modification. A mons pubis swab for MRSA wound DNA by PCR was also done because of her history of MRSA. The large resultant wound was irrigated with saline. Hemostasis obtained with electrocautery. The inferior skin edge by the labial area was flapping around and I felt I could take down this edge of tissue to stabilize the tissue around the labial area. This was done with 2-0 Vicryl figure of eight interrupted sutures. There was a small bulge on the right in the genitocrural area that was also excised and sent with the other tissue. This small wound was then closed in multiple areas after hemostasis was obtained with electrocautery. The deep dermis and subcutaneous tissue was closed with 2-0 Vicryl figure of eight interrupted sutures. The skin was approximated with 3-0 Prolene simple running suture. Antibiotic ointment was placed on the suture line. The size of the defect of the vulval area involving the mons pubis was 15 x 8 x 2 cm or 120 cm2. The wound was dressed with Mepitel nonadherent dressing followed by Kerlix gauze and Betadine followed by a dry Kerlix gauze. Patient tolerated the procedure well and was sent to PACU in satisfactory condition. She will be admitted for a surgical observation overnight stay in the hospital. I anticipate she will be tolerating po analgesia tomorrow which will allow her to be discharged home. She will followup at the [facility] in a couple of weeks. She will continue antibiotics until the cultures are available. She will be sent home initially with Levaquin. Grafts/Implants Used: None. - Complications None. - Admit VTE Documentation VTE Present on Admission: No VTE Mechan Device Prophylaxis: SCD's VTE Pharm Prophylaxis ordered?: No Code Visit Surgery Charges CPT - 71737 ICD-10 - I89.0, N76.2, L03.319, L98.492, R63.4 48495 L98.492, N76.2, L03.319, I89.0, R63.4 23160 L98.492, N76.2, L03.319, I89.0, R63.4 08/17/17 0252 <Electronically signed by Gigi Mendieta MD> Date Gigi Mendieta MD CC: Susana Diaz III, MD; Gigi Mendieta MD; [facility] Signed HISTORY AND PHYSICAL Observed: 08/17/2017 Status: F Source: [place] EXAM 2:42 AM [facility] REPOSITORY [facility] Medical Records Department [address] [place] [address] History and Physical 07/19/172110 MR#: [id number] Acct: [id number] Name: TRAMAINE PENG Rep #: [id number] : 1985 32 From: Gigi Mendieta MD PCP: Susana Diaz III, MD Status: [place] [facility] [place] [facility] History and Physical Date of Admission: 07/20/17 HISTORY OF PRESENT ILLNESS 32-year-old woman presents with a painful nonhealing ulcer lower anterior abdominal wall and pubic area after developing an infected hematoma that resulted in surgery on 05/03/17 where she underwent surgical preparation lower anterior abdominal wall and pubic area with incision and drainage and excisional debridement infected seroma/hematoma (250 cm2). Her initial surgery was on 04/20/17 where she underwent excision 8 cm painful soft tissue mass pubic area with 20 cm complex closure. Operative culture showed Staphylococcus aureus and was treated with antibiotics. After discharge, she had another culture done on 05/30/17 which showed Staphylococcus aureus and Morganella morganii and was treated with antibiotics. Her initial infected wound was treated with the VAC and then changed to Silver dressings daily because of too much pain with the VAC. During the wound care, the patient developed persistent swelling in her mons pubis area resulting in a lymphedema-type picture. It was recommended to the patient to excise this lymphedema tissue in her genitalia involving the mons pubis with a partial vulvectomy to help debulk the area which should help with her persistent pain. Today the patient denies any fever. She has persistent pain in the nonhealing ulcer mons pubis area. 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 Nonhealing infected hematoma ulcer lower anterior abdominal wall and pubic area Anemia of chronic disease. History of MRSA. PAST SURGICAL HISTORY 2 Kidney stones removed gallbladder removed Gastric bypass - 2015 Laparoscopic Og-en-Y procedure at [facility] Abdominal panniculectomy - 09/17/16 Incision and drainage postop hematoma abdominal wall - 09/17/16 Incision and drainage infected postop abdominal wall seroma - 10/20/16 Left thyroid removed Excision 8 cm painful soft tissue mass pubic area with 20 cm complex closure - 04/20/17 Surgical preparation lower anterior abdominal wall and pubic area with incision and drainage and excisional debridement infected seroma/hematoma (250 cm2) - 05/03/17 FAMILY HISTORY Mother (biol.) - Has Family History of Anxiety Mother (biol.) - Has Family History of Bleeding Disease Mother (biol.) - Has Family History of Depression Mother (biol.) - Has Family History of Hypertension Mother (biol.) - Has Family History of High Cholesterol Mother (biol.) - Has Family History of Other Cancer Father (biol.) - Has Family History of Diabetes Father (biol.) - Has Family History of Hypertension PGF - Has Family History of Colon Cancer PGF - Has Family History of Diabetes PGF - Has Family History of Heart Disease SOCIAL HISTORY Alcohol Use - no Patient has never smoked. MEDICATIONS NEXPLANON IMPLANT (ETONOGESTREL IMPL) subdermal FLOMAX 0.4 MG ORAL CAPSULE (TAMSULOSIN HCL) Two tablets by mouth twice daily LISINOPRIL 40 MG ORAL TABLET (LISINOPRIL) One tablet by mouth twice daily NORCO 5-325 MG ORAL TABLET (HYDROCODONE-ACETAMINOPHEN) as needed VITAMIN D3 33101 UNIT ORAL TABLET (CHOLECALCIFEROL) 1 tab once a week ELAVIL TABLET (AMITRIPTYLINE HCL TABS) One tablet by mouth daily ALLERGIES NSAIDS (Critical) * GABAPENTIN (Critical) TORADOL (Critical) * TRAMADOL (Critical) REVIEW OF SYSTEMS General-denies fever. Has some fatigue. Has had major weight loss since her gastric bypass procedure done a year and a half ago. She lost 180 pounds. Ear nose and throat-denies nasal congestion. Denies sore throat. Eyes-denies glaucoma. Denies cataracts. Endocrine-denies excessive thirst or urination. Skin-has an abdominal wall skin crease intertrigo for which she uses powders for relief. She has lymphedema genitalia involving mons pubis. Has nonhealing ulcer in the mons pubis area. Musculoskeletal-denies joint pain, joint stiffness, weakness of muscles and joints, neck pain, and arthritis. Neurologic-has headaches. Cardiovascular-denies chest pain. Has some fatigue. Denies shortness of breath with exertion. Psychiatric-denies anxiety. Denies depression. Respiratory-denies shortness of breath. Denies chronic cough. Gastrointestinal-denies nausea, vomiting, diarrhea, constipation. Denies abdominal bloating. Hematologic-denies abnormal bruising or bleeding. Genitourinary-denies hematuria and urinary frequency. PHYSICAL EXAMINATION General-well developed, well nourished, in no acute distress. HEENT-pupils equal round and reactive to light. Extraocular muscles intact. Throat is clear. Neck-supple and nontender. No cervical adenopathy. Lungs-clear to auscultation. Heart-regular rate and rhythm. Abdomen-soft and nondistended. There is abdominal wall scarring from previous abdominal panniculectomy. No abdominal masses noted. No ventral hernias noted. In the pubic area is a large soft tissue mass measures 8 cm. It is mobile. Slight tenderness to palpation. No evidence of infection. No ulceration. No bleeding. Extremities-full range of motion. No axillary adenopathy. No inguinal adenopathy. Radial pulses and dorsalis pedis pulses are palpable. Neuro-cranial nerves II through XII grossly intact. ASSESSMENT 1. Nonhealing infected hematoma ulcer lower anterior abdominal wall and mons pubis area. 2. 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 3. Lymphedema genitalia involving mons pubis. PLAN Recommend excision of this painful lymphedema area genitalia involving mons pubis with a partial vulvectomy. The wound will be left open and wound care started with the VAC. Tissue will be sent to Pathology for analysis to rule out carcinoma and to Microbiology for culture. A positive culture may necessitate antibiotic modification. Post discharge, she will followup at the [facility] Center. If there is a plateau in the healing process, then delayed closure with skin grafting can be done. Patient is aware that a large wound will be present postop but that the removal of the lymphedematous tissue should help the pain in the area due to the weight of the tissue from its dependency. soft tissue mass in her pubic area. Surgery will be done under general anesthesia with a surgical observation overnight stay in the hospital. The patient was informed of the risks and complications of the procedure including alternatives to surgery. These were discussed with the patient personally. The patient voices understanding and wishes to proceed. Some of the risks and complications were included in a form from the [employer]. 08/17/17 0242 <Electronically signed by Gigi Mendieta MD> Date Gigi Mendieta MD Cosigner Signature: Date (if applicable) CC: Susana Diaz III, MD; Gigi Mendieta MD; [facility] Signed PROGRESS Observed: 08/07/2017 Status: COMPLETED Source: [place] 8:05 AM [facility] REPOSITORY HNO ID: [id number] Author: Susana Diaz III Service: (none) Author Type: Physician Type: Progress Notes Filed: 08/07/2017 1:13 PM Note Text: SUBJECTIVE: This is a 32 year old female that is here today for pain management for post-op pain. Recently she had wound vac placed. Subsequent vulvar swelling causing urine retention requiring indwelling bladder catheter. Vac changes and removal of foam and dressing most painful requiring norco. She was given dilaudid and valium, which caused excessive drowsiness and decrease concentration(causing her to be unable to work). 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 hx of recurrent renal stones tx with norco. PAST MEDICAL HISTORY Diagnosis Date - BENIGN HYPERTENSION 11/16/2006 - Calcium oxalate renal stones 2009 - Calculus of ureter 09/30/2007 s/p URS and stent with hydro. - Cervical disc disorder with radiculopathy 04/15/2010 - Chronic postoperative pain 02/27/201603/2015, gastric bypass surgery. Pain from severed nerves and muscle - COMMON MIGRAINE INTRACTABLE Improved - Gallbladder sludge 05/31/2013 - GERD (gastroesophageal reflux disease) 09/12/2014 - History of Og-en-Y gastric bypass - Hyperparathyroidism due to vitamin D deficiency (HCC) 04/05/2013 - Iron deficiency anemia secondary to inadequate dietary iron intake 05/04/2017 - halfway prescription opiate use 02/27/2016 Chronic post op (gastric bypass) pain - Lumbar disc disorder with myelopathy 06/04/2010 - Moderate protein-calorie malnutrition (HCC) 05/04/2017 - Morbid obesity with BMI of 50.0-59.9, adult (HCC) 09/12/2014 - Non-alcoholic fatty liver disease - OBESITY NOS 06/01/2005 - Obstructive sleep apnea Approval received from [facility] 02/01/2015 for CPAP @ 10 approval - 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 tamsulosin ER (FLOMAX) 0.4 mg cp24 0.4 mg by mouth once per day only as needed for renal colic cephALEXin (KEFLEX) 500 mg capsule Take 500 mg by mouth twice daily. ferrous sulfate 325 mg (65 mg iron) tablet Take 1 tablet by mouth twice daily with meals. (Patient taking differently: Take 150 mg by mouth twice daily with meals. ) amitriptyline (ELAVIL) 50 mg tablet Take 1 tablet by mouth daily at bedtime. cholecalciferol, Vitamin D3, (VITAMIN D3) 50,000 unit cap capsule one capsule once/wk acetaminophen (TYLENOL) 500 mg tablet Take 2 tablets by mouth every 6 hours. amLODIPine (NORVASC) 10 mg tablet Take 1 tablet by mouth once daily. potassium citrate ER (UROCIT-K 10) 10 mEq (1,080 mg) TbER Take 1 tablet by mouth twice daily. ETONOGESTREL (NEXPLANON SDRM) by SUBDERMAL route. HYDROcodone-acetaminophen (NORCO) 5-325 mg per tablet Take 1-2 tablets by mouth every 6 hours as needed for Pain for up to 30 days. cyanocobalamin (VITAMIN B-12) 1,000 mcg/mL soln Inject 1 mL intramuscularly once every month. 1 DOSE MONTHLY ketoconazole (NIZORAL) 2 % cream Apply 1 application to affected area twice daily. Current Facility-Administered Medications on File Prior to Visit: cyanocobalamin 1,000 mcg injection FAMILY HISTORY Problem Relation Age of Onset - Brain tumor [OTHER] Mother Benign - Hypertension Father - Diabetes Father - Diverticulitis [OTHER] Father - COPD Paternal Grandfather - Colon Cancer Paternal Grandfather - Diabetes Maternal Grandfather - Kidney stone [OTHER] Maternal Uncle - ESRD [OTHER] Other Maternal cousin. Agenesic/atrophic kidney Social History Substance Use Topics - Smoking status: Never Smoker - Smokeless tobacco: Never Used - Alcohol use Yes Comment: rarely-2 drinks per month BP 126/82 Pulse 80 Temp 36.7 ?C (98 ?F) (Left Tympanic) Resp 12 Wt 90.7 kg (200 lb) BMI 32.28 kg/m? . OBJECTIVE: APPEARANCE Well appearing, alert, in no acute distress, well-hydrated, well nourished., looks frustrated ASSESSMENT: post op pain, disabling delirium from dilaudid and valium urine retention with adhikari catheter PLAN: discontinue dilaudid and valium Patient instructed not to discard unused/unusable meds but rather turn them into pharmacy for disposal norco 5/325 1-2 tabs one-two times/day as needed for severe pain, especially wound dressing and wound vac changes return to office 1 mo. 30 min visit discussing pain management strategy Susana Diaz III MD [employer] website checked and validated. All prescriptions have been APPROPRIATELY filled. No suspicious activity was identified.- 08/07/2017 by Susana Diaz III MD CNOV Observed: 08/07/2017 Status: COMPLETED Source: [place] 8:00 AM [facility] REPOSITORY [facility] TRAMAINE PENG ([id number]) 1985 F Date Time Provider Department 08/07/17 8:00 AM [facility] During your visit today, we recorded the following information about you: Temperature Pulse Respiration Blood pressure 98 degrees 80/minute 12/minute 126/82 Weight 90.7 kg Susana Diaz III MD 08/07/2017 1:13 PM Signed SUBJECTIVE: This is a 32 year old female that is here today for pain management for post-op pain. Recently she had wound vac placed. Subsequent vulvar swelling causing urine retention requiring indwelling bladder catheter. Vac changes and removal of foam and dressing most painful requiring norco. She was given dilaudid and valium, which caused excessive drowsiness and decrease concentration(causing her to be unable to work). 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 hx of recurrent renal stones tx with norco. PAST MEDICAL HISTORY Diagnosis Date - BENIGN HYPERTENSION 11/16/2006 - Calcium oxalate renal stones 2009 - Calculus of ureter 09/30/2007 s/p URS and stent with hydro. - Cervical disc disorder with radiculopathy 04/15/2010 - Chronic postoperative pain 02/27/201603/2015, gastric bypass surgery. 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 Chronic post op (gastric bypass) pain - Lumbar disc disorder with myelopathy 06/04/2010 - Moderate protein-calorie malnutrition (HCC) 05/04/2017 - Morbid obesity with BMI of 50.0-59.9, adult ([facility]) 09/12/2014 - Non-alcoholic fatty liver disease - OBESITY NOS 06/01/2005 - Obstructive sleep apnea Approval received from [facility] 02/01/2015 for CPAP @ 10 approval - 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 tamsulosin ER (FLOMAX) 0.4 mg cp24 0.4 mg by mouth once per day only as needed for renal colic cephALEXin (KEFLEX) 500 mg capsule Take 500 mg by mouth twice daily. ferrous sulfate 325 mg (65 mg iron) tablet Take 1 tablet by mouth twice daily with meals. (Patient taking differently: Take 150 mg by mouth twice daily with meals. ) amitriptyline (ELAVIL) 50 mg tablet Take 1 tablet by mouth daily at bedtime. cholecalciferol, Vitamin D3, (VITAMIN D3) 50,000 unit cap capsule one capsule once/wk acetaminophen (TYLENOL) 500 mg tablet Take 2 tablets by mouth every 6 hours. amLODIPine (NORVASC) 10 mg tablet Take 1 tablet by mouth once daily. potassium citrate ER (UROCIT-K 10) 10 mEq (1,080 mg) TbER Take 1 tablet by mouth twice daily. ETONOGESTREL (NEXPLANON SDRM) by SUBDERMAL route. HYDROcodone-acetaminophen (NORCO) 5-325 mg per tablet Take 1-2 tablets by mouth every 6 hours as needed for Pain for up to 30 days. cyanocobalamin (VITAMIN B-12) 1,000 mcg/mL soln Inject 1 mL intramuscularly once every month. 1 DOSE MONTHLY ketoconazole (NIZORAL) 2 % cream Apply 1 application to affected area twice daily. Current Facility-Administered Medications on File Prior to Visit: cyanocobalamin 1,000 mcg injection FAMILY HISTORY Problem Relation Age of Onset - Brain tumor [OTHER] Mother Benign - Hypertension Father - Diabetes Father - Diverticulitis [OTHER] Father - COPD Paternal Grandfather - Colon Cancer Paternal Grandfather - Diabetes Maternal Grandfather - Kidney stone [OTHER] Maternal Uncle - ESRD [OTHER] Other Maternal cousin. Agenesic/atrophic kidney Social History Substance Use Topics - Smoking status: Never Smoker - Smokeless tobacco: Never Used - Alcohol use Yes Comment: rarely-2 drinks per month BP 126/82 Pulse 80 Temp 36.7 ?C (98 ?F) (Left Tympanic) Resp 12 Wt 90.7 kg (200 lb) BMI 32.28 kg/m? . OBJECTIVE: APPEARANCE Well appearing, alert, in no acute distress, well- hydrated, well nourished., looks frustrated ASSESSMENT: post op pain, disabling delirium from dilaudid and valium urine retention with adhikari catheter PLAN: discontinue dilaudid and valium Patient instructed not to discard unused/unusable meds but rather turn them into pharmacy for disposal norco 5/325 1-2 tabs one-two times/day as needed for severe pain, especially wound dressing and wound vac changes return to office 1 mo. 30 min visit discussing pain management strategy Susana Diaz III MD [employer] website checked and validated. All prescriptions have been APPROPRIATELY filled. No suspicious activity was identified.- 08/07/2017 by Susana Diaz III MD Referring Provider: SELF [[id number]] Allergies As of Date: 08/07/2017 Noted Allergy Reaction TORADOL (KETOROLAC TROMETHAMINE) 05/30/2015 8 - GI Upset GABAPENTIN 02/27/2016 14 - Other: See Comments Comments: Cognitive intolerance METHOCARB 04/01/2016 14 - Other: See Comments TRAMADOL 10/17/2013 8 - GI Upset Date Reviewed: 08/07/2017 Reviewed by: Michelle Galaviz Ma - Fully Assessed Reason for Visit: Medication Follow-up [270] Primary Visit Diagnosis:Post-op pain [G89.18] Other Visit Diagnosis:halfway prescription opiate use [Z79.891] Order(s):HYDROcodone-acetaminophen (NORCO) 5-325 mg per tabletTake 1-2 tablets by mouth twice daily as needed for Pain for up to 30 days.Disp: 90 tabletRfl: 0 Prescriptions as of 08/07/2017 Sig: LISINOPRIL 40 MG TABLET Take 1 tablet by mouth twice * TAMSULOSIN 0.4 MG CAPSULE 0.4 mg by mouth once per day * CEPHALEXIN 500 MG CAPSULE Take 500 mg by mouth twice da* FERROUS SULFATE 325 MG (65 MG* Take 1 tablet by mouth twice * Patient taking differently: Take 150 mg by mouth twice da* AMITRIPTYLINE 50 MG TABLET Take 1 tablet by mouth daily * CHOLECALCIFEROL (VITAMIN D3) * one capsule once/wk ACETAMINOPHEN 500 MG TABLET Take 2 tablets by mouth every* AMLODIPINE 10 MG TABLET Take 1 tablet by mouth once d* POTASSIUM CITRATE ER 10 MEQ (* Take 1 tablet by mouth twice * HYDROCODONE 5 MG-ACETAMINOPHE* Take 1-2 tablets by mouth twi* CYANOCOBALAMIN (VIT B-12) 1,0* Inject 1 mL intramuscularly o* KETOCONAZOLE 2 % TOPICAL CREAM Apply 1 application to affect* NEXPLANON SDRM by SUBDERMAL route. 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] INVALID FOR*07/04/2015 BENIGN HYPERTENSION [I10] INVALID FOR* Intractable migraine without aura [G43.019] INVALID FOR* Cervical disc disorder with radiculopathy [M50.*INVALID FOR*09/07/2016 Lumbar disc disorder with myelopathy [M51.06] INVALID FOR*09/07/2016 Calcium oxalate renal stones [N20.0] INVALID FOR* Non-alcoholic fatty liver disease [K76.0] Vitamin D deficiency [E55.9] INVALID FOR*09/07/2016 Hyperparathyroidism due to vitamin D deficiency*INVALID FOR*09/07/2016 Gallbladder sludge [K82.8] INVALID FOR*11/09/2013 Physical deconditioning [R53.81] INVALID FOR*09/07/2016 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 Chronic postoperative pain [G89.28] INVALID FOR* More... Bleeding [R58] INVALID FOR*10/14/2016 More... Cellulitis of abdominal wall [L03.311] INVALID FOR*12/23/2016 Vitamin D deficiency [E55.9] INVALID FOR* Hyperuricuria [R82.99] INVALID FOR* Hyperuricosuria [R82.99] INVALID FOR* Hyperoxaluria (HCC) [E72.53] INVALID FOR* Renal calculi [N20.0] INVALID FOR* Iron deficiency anemia secondary to inadequate *INVALID FOR* Moderate protein-calorie malnutrition (HCC) [E4*INVALID FOR* Renal colic [N23] INVALID FOR* Vitamin B 12 deficiency [E53.8] INVALID FOR* Prescriptions ordered this encounter Disp Refills Start End HYDROCODONE 5 MG-ACETAMINOPHEN 325 M* 90 t* 0 08/07/2017 09/06/2017 Class: Print RX Route: ORAL Sig: Take 1-2 tablets by mouth twice daily as needed for Pain for up to 30 days. Medications Discontinued During This Encounter HYDROcodone-acetaminophen (NORCO) 5-* 240 * 0 06/22/2017 08/07/2017 Class: Print RX Route: ORAL Sig: Take 1-2 tablets by mouth every 6 hours as needed for Pain for up to 30 days. Disc: Course of therapy completed Encounter Status:Closed by SUSANA DIAZ III, MD on 08/07/17 DISCHARGE INSTRUCTION Observed: 08/06/2017 Status: F Source: [place] 10:49 PM [facility] Medical Records Department [address] [place] [address] Discharge Instruction 08/06/176 MR#: [id number] Acct: [id number] Name: TRAMAINE PENG S Rep #: [id number] : 1985 32 From: Saeid Mai MD PCP: Susana Diaz III, MD Status: DEP ER ED Disposition - Plan for ED Patient: Chief Complaint: Complaint Instructions: ED Catheter Care Adhikari Referrals: Susana Diaz III, MD [Primary Care Provider] - What to do if you have Problems For any increased pain, shortness of breath, bleeding, nausea or vomiting, chest pain, or any unexpected problems, contact your Primary Care Provider. Call [facility] ([phone]) or report to the closest Emergency Room. Call 911 if necessary. 08/06/171 <Electronically signed by Saeid Mai MD> Date Saeid Mai MD Cosigner Signature (If Indicated): Date CC: Susana Diaz III, MD EMERGENCY DEPARTMENT Observed: 08/06/2017 Status: F Source: [place] SUMMARY 10:48 PM [facility] REPOSITORY [facility] Medical Records Department [address] [place] [address] Emergency Department Summary 08/06/17 1842 MR#: [id number] Acct: [id number] Name: TRAMAINE PENG Rep #: [id number] : 1985 32 From: Saeid Mai MD PCP: Susana Diaz III, MD Status: DEP ER - ER Visit Summary Date of Service: 08/06/17 Chief Complaint: Retaining urine History of Present Illness: The patient is a 32 F with a history of gastric bypass and panniculectomy with a wound infection and a wound VAC in place. Patient has significant swelling to the area and has had a lot of difficulty urinating. She was seen previously and had a Adhikari catheter placed. She did not want to leave it in and went home without a catheter. Her symptoms have recurred. She has been retaining urine today. She saw her surgeon, Dr. Mendieta as an outpatient who advised replacing the catheter, but the patient declined. She is requesting one now. Patient also had an episode today where she felt lightheaded secondary to pain. She briefly fell forward and caught herself. She felt some pain at the wound VAC site and noticed a small amount of blood in her underwear. She denies any hematuria or vaginal bleeding. She is not currently having bleeding. She is on Levaquin. Physical Examination: Blood pressure 207/111. Otherwise vitals normal and afebrile. Wound VAC is in place. No sign of bleeding or redness. Wound VAC is intact and clean. She has diffuse swelling of her bilateral labia majora. Otherwise skin appears normal. Exam was chaperoned by the RN. Test Results: We will check basic labs, urine, and urine culture. Adhikari catheter was placed with a leg bag. Emergency Department Course and Treatment: Catheter placed. Will check basic labs and a urine.. Hemoglobin and platelets stable, 9.4 and 630 respectively. Metabolic panel normal. Urinalysis normal. Patient had a Adhikari catheter placed with a leg bag and is tolerating this well. Repeat blood pressure 136/70. Patient will follow up with her PCP tomorrow. Treatment Plan: As above Disposition: Discharge Impression: 1. Urinary retention 2. Hypertension This note was generated with My eStore Appation software. It may contain incorrect words, spelling, and punctuation that were not noted in review of the chart prior to signing ED Disposition - Plan for ED Patient: Chief Complaint: Complaint Referrals: Susana Diaz III, MD [Primary Care Provider] - What to do if you have Problems For any increased pain, shortness of breath, bleeding, nausea or vomiting, chest pain, or any unexpected problems, contact your Primary Care Provider. Call [facility] ([phone]) or report to the closest Emergency Room. Call 911 if necessary. 08/06/17 2244 <Electronically signed by Saeid Mai MD> Date Saeid Mai MD Cosigner Signature (If Indicated): Date CC: Susana Diaz III, MD CBC W/DIFF, AUTOMATED Collected: 08/06/2017 Status: F Source: [place] 7:15 PM [facility] REPOSITORY TYPE CODE TESTS RESULT OUT OF RANGE REFERENCE UNITS LAB L100.1000 4.4-11.0 K/mm3 Normal WBC 9.1 LAB L100.1200 4.2-5.4 M/mm3 Low RBC 3.69 LAB L100.1300 12.0-15.0 g/dl Low HGB 9.4 LAB L100.1400 37-47 % Low HCT 29.9 LAB L100.1500 81-99 fL Normal MCV 81.0 LAB L100.1600 27.0-32.0 pg Low MCH 25.5 LAB L100.1700 32-36 g/gl Low MCHC 31.4 LAB L100.1810 11.6-14.6 % High RDW CV 15.3 LAB L100.1820 35.1-43.9 fl High RDW SD 45.1 LAB L100.1900 150-450 K/mm3 High PLT 630 LAB L100.2000 6.2-12.0 fl Normal MPV 9.8 LAB L100.2100 47-70 % High NEUT% 71.7 LAB L100.2200 19-41 % Normal LY% 20.0 LAB L100.2300 0-10 % Normal MONO% 6.0 LAB L100.2400 0-5 % Normal EO% 1.8 LAB L100.2500 0-1 % Normal BASO% 0.4 LAB L100.2550 0.0-0.9 % Normal IM GRAN % 0.100 Result Comment: IG% - Immature Granulocytes (promyelocytes, myelocytes and metamyelocytes) > 1% indicates that a LEFT SHIFT is Present. LAB L100.2620 2.0-7.7 X10 3/uL Normal Absolute Neut 6.5 LAB L100.2720 0.83-4.51 X10 3/ul Normal Absolute Lymph 1.83 Performed By: #### L100.0100 #### [facility] [address] [place], [place], [address] BASIC METABOLIC Collected: 08/06/2017 Status: F Source: [place] PROFILE (BMP) 7:15 PM [facility] REPOSITORY TYPE CODE TESTS RESULT OUT OF RANGE REFERENCE UNITS LAB L501.0100 74-106 mg/dL Normal GLU 85 Result Comment: Please note revised GLUCOSE reference range effective 2017. LAB L501.1000 7-18 mg/dL Normal BUN 11 LAB L501.1100 0.55-1.02 mg/dL Normal CREAT,SERUM 0.56 Result Comment: The validity of the calculated GFR AND GFRAA in patients over 70 years has not been determined. Clinical correlation is essential. LAB L501.1110 >60 mL/min Normal EST GFR 133 Result Comment: Non- GFR Calc LAB L501.1115 >60 mL/min Normal EST GFR - AA 160 Result Comment: GFR Calc LAB L501.1255 ml/min Normal Estimated CRCL 136.26 LAB L501.1300 10-20 RATIO BUN/CRE Normal 19.5 LAB L501.2200 8.5-10 mg/dL .1 CA Normal 8.6 LAB L501.5300 136-14 mmol/L 5 NA Normal 142 LAB L501.5600 3.5-5. mmol/L 1 K Normal 4.1 LAB L501.5900 98-107 mmol/L CL Normal 107 LAB L501.6100 21.0-3 mmol/L 2.0 CO2 Normal 27.0 LAB L501.6200 5-15 GAP Normal 8 Performed By: #### L500.2500 #### [facility] [address] [place], [address] URINALYSIS, COMPLETE Collected: 08/06/2017 Status: F Source: [place] 7:00 PM [facility] REPOSITORY Order Comment: How was Urine Obtained? CATHETER SPECIMEN TYPE CODE TESTS RESULT OUT OF RANGE REFERENCE UNITS LAB L400.3000 Yellow COLOR Normal Yellow LAB L400.3050 Clear Normal CLARITY Clear LAB L400.3200 Normal mg/dl Normal GLUCOSE, UR Normal LAB L400.3300 Negative mg/dL Normal BILIRUBIN URINE Negative LAB L400.3400 Negative mg/dl Normal KETONE UR Negative LAB L400.3465 1.002-1.030 Normal SP.GR. DIPSTX 1.015 LAB L400.3550 5.0 - 8.0 pH UR Normal 6.5 LAB L400.3600 Negative mg/dl PROT Normal DIPSTX Negative LAB L400.3700 Normal mg/dl Normal UROBILI Normal LAB L400.3750 Negative Normal NITRITE UR Negative LAB L400.3780 Negative /ul Normal OCCULT BLOOD-UR Negative LAB L400.3800 Negative /ul LEUK Normal ESTERASE Negative LAB L400.4050 0-5 /hpf WBC 0 Normal SEEN LAB L400.4100 0-5 /hpf 0 Normal RBC-UA SEEN LAB L400.4150 5-10 /hpf SQUAM 0 Normal EPI SEEN LAB L400.4300 None Seen /hpf Normal BACTERIA RARE LAB L400.4350 <or=2+ /hpf Normal MUCUS, URINE RARE Performed By: #### L400.0001 #### [facility] [address] [place], [address] Observed: 08/06/2017 Status: F Source: [place] CULTURE, URINE 7:00 PM [facility] REPOSITORY Has pt arrived? Y Urine Culture Culture exhibits no growth. Performed By: #### M100.0650 #### [facility] [address] [place], [address] PROGRESS Observed: 08/03/2017 Status: COMPLETED Source: [place] 8:29 AM [facility] REPOSITORY HNO ID: [id number] Author: Susana Diaz III Service: (none) Author Type: Physician Type: Progress Notes Filed: 08/03/2017 8:29 AM Note Text: Tramaine, The lab results look fine. Renal function has improved and is normal. Susana Diaz III MD ALBUMIN Collected: 08/02/2017 Status: F Source: [place] 9:06 AM [facility] REPOSITORY TYPE CODE TESTS RESULT OUT OF REFERENCE UNITS RANGE LAB ALB 3.9-4.9 g/dL Low Albumin 3.8 Performed By: #### ALB, BMP, PREALB #### [facility] [address] [place] [id number] BASIC METABOLIC PANL Collected: 08/02/2017 Status: F Source: [place] 9:06 AM [facility] REPOSITORY TYPE CODE TESTS RESULT OUT OF REFERENCE UNITS RANGE LAB GLU 74-99 mg/dL Glucose 78 Result Comment: The [place] Diabetes Association (ADA) provides guidance for cutoff values for fasting glucose and random glucose. The ADA defines fasting as no caloric intake for at least 8 hours. Fas ting plasma glucose results between 100 to 125 mg/dL indicate increased risk for diabetes (prediabetes). Fasting plasma glucose results greater than or equal to 126 mg/dL meet the criteria for diagnosis of diabetes. In the absence of unequivocal hyperglycemia, results should be confirmed by repeat testing. In a patient with classic symptoms of hyperglycemia or hyperglycemic crisis, random plasma glucose results greater than or equal to 200 mg/dL meet the criteria for diagnosis of diabetes. Reference: Standards of Medical Care in Diabetes 2016, [place] Diabetes Association. Diabetes Care. 2016.39(Suppl 1). LAB BUN 7-21 mg/dL BUN 10 LAB CRET 0.58-0.96 mg/dL Creatinine 0.60 LAB NA 136-144 mmol/L Sodium 138 LAB K 3.7-5.1 mmol/L Potassium 4.1 LAB CL 97-105 mmol/L Chloride 100 LAB CO2 22-30 mmol/L CO2 26 LAB AGAP 9-18 mmol/L Anion Gap 12 LAB CA 8.5-10.2 mg/dL Calcium, Total 8.8 LAB GFRAA eGFR- Amer. >60 LAB GFRNAA . eGFR-All Other Races >60 Result Comment: eGFR (Estimated GFR) Units of measure: mL/min/1.73 meters squared eGFR is derived from the reexpressed MDRD Study equation using the following parameters: serum creatinine, age, gender and race. The creatinine assay has been calibrated to be traceable to IDMS. An eGFR <60 mL/min/1.73m2 for >3 months is consistent with chronic kidney disease. Refer to KDOQI guidelines for clinical interpretation. In patients with unstable renal function, e.g. those with acute kidney injury, the eGFR may not accurately reflect actual GFR. Performed By: #### ALB, BMP, PREALB #### [facility] [address] [place], [place] [address] PREALBUMIN Collected: 08/02/2017 Status: F Source: [place] 9:06 AM [facility] REPOSITORY TYPE CODE TESTS RESULT OUT OF REFERENCE UNITS RANGE LAB PREALB 17-36 mg/dL Prealbumin 18 Performed By: #### ALB, BMP, PREALB #### [facility] [address] [place], [place] [address] 12 LEAD ELECTROCARDIOGRAM Observed: 07/30/2017 Status: F Source: [place] 2:13 PM [facility] REPOSITORY [facility] Cardiovascular Services [address] [place] [address] 12 Lead EKG 07/28/17 1547 MR#: [id number] Acct: [id number] Name: TRAMAINE PENG Rep #: [id number] : 1985 32 From: Arias Cowan MD Attending Dr: Status: DEP ER Ordering Dr: Darline Griggs MD Date: 07/28/17 Location: ED Sex: F C Admitted: Test Reason : WOUND CHECK Blood Pressure : / mmHG Vent. Rate : 104 BPM Atrial Rate : 104 BPM P-R Int : 166 ms QRS Dur : 086 ms QT Int : 356 ms P-R-T Axes : 050 035 004 degrees QTc Int : 468 ms Sinus tachycardia Otherwise normal ECG Confirmed by ARIAS COWAN MD ([id number]), editor magazine [employer] ([id number]) on 07/30/2017 2:13:08 PM Referred By: EB Confirmed By:ARIAS COWAN MD 07/30/17 1413 Date Arias Cowan MD CC: Susana Diaz III, MD; Darline Griggs MD Signed EMERGENCY DEPARTMENT Observed: 07/28/2017 Status: F Source: [place] SUMMARY 7:07 PM [facility] REPOSITORY [facility] Medical Records Department [address] [place] [address] Emergency Department Summary 07/28/17 1540 MR#: [id number] Acct: [id number] Name: TRAMAINE PENG Rep #: [id number] : 1985 32 From: Darline Griggs MD PCP: Susana Diaz III, MD Status: DEP ER - ER Visit Summary Date of Service: 07/28/17 Chief Complaint: Surgical wound evaluation History of Present Illness: The patient is a 32 F who is 7 days postop from surgery on her mons pubis who presents for concern for surgical site infection. Patient had the wound VAC changed today by her home health nurse, and they noted some odd appearing grayish black tissue and a very foul odor. There is been copious amount of purulent fluid collected by the wound VAC prior to replacement this afternoon. Patient is complaining of associated urgency and frequency. She has had a fever for the last 2 days. She is taking p.o. Dilaudid for pain. Pain is worse with movement. Medical history of kidney stones and gastric bypass. Patient is currently on Levaquin. Physical Examination: Vital signs: afebrile, hemodynamically stable, no hypoxia on room air General: well nourished, well developed, in no distress, appears uncomfortable Skin: warm, dry, no rash, no pallor HEENT: normocephalic and atraumatic; PERRL, EOMI, moist mucous membranes Cardiovascular: Tachycardic rate and rhythm without murmurs, no peripheral edema, 2+ pulses all distal extremities Respiratory: No increased work of breathing, lungs are clear to auscultation bilaterally, no rales, rhonchi or wheezing Abdominal: Abdomen is soft, tender with normoactive bowel sounds, wound VAC in place over the mons pubis : Large symmetric edematous labia, no fluctuance MSK: Moves all extremities, no deformities, normal strength Neuro: Awake and alert, oriented 4. No facial droop, sensation and motor function intact and symmetric Test Results: Abnormal Lab Results WBC 7.1 RBC 3.73 L Hgb 9.9 L Hct 31.3 L MCV 83.9 MCH 26.5 L MCHC 31.6 L RDW 15.4 H WBC RBC Hgb Hct MCV MCH MCHC RDW RDW Differential Plt Count MPV Immature Gran % (Auto) Neut % (Auto) Clinical Impression(s) from Imaging Studies Renal Ultrasound 07/28/17 16:12 IMPRESSION: Stable right renal stone. No hydronephrosis. Electronically Signed: Soto Dickerson MD at 18:30 EDT , Service support , Emergency Department Course and Treatment: Patient presents with concern for surgical site infection. Patient does have a wound VAC in place with an odor noted in the room. Patient was discussed with Dr. Mendieta who stated concerns were for possible UTI, kidney stone or pain from the surgery itself. He recommended placing a Adhikari catheter. Adhikair catheter was placed and 400 cc of urine were returned. Urinalysis showed no hematuria or infection. Ultrasound of the kidney showed no ureterolithiasis or hydronephrosis that would be concerning for ureteral colic as the source of patient's pain. Patient had no leukocytosis. Lactate was normal. Patient was given IV fluids and multiple doses of pain medication. The wound VAC was taken down replaced with wet-to-dry Kerlix dressings per Dr. Mendieta's instructions, and the underlying wound looked like it was healing appropriately, with granulation tissue at the places where patient was concerned for infection. No significant odor was noted once the wound VAC was removed. Wet-to-dry dressing was placed. There is no indication that patient has a wound infection that would require admission for IV antibiotics. Patient will continue her pain medications at home. She strongly requested not going home with a Adhikari catheter, and we discussed the risks and benefits of this since 1 of her main concerns was not being able to urinate. Patient will return if she has any further issues, and the Adhikari catheter was removed at patient request. Patient has home health coming tomorrow and they will help her with her wound VAC replacement. She will keep her appointment with Dr. Mendieta on Wednesday. Discharged home. Treatment Plan: [] Disposition: [] Impression: Surgical wound evaluation, surgical wound pain, difficulty urinating This note was generated with Snapwiz dictation software. It may contain incorrect words, spelling, and punctuation that were not noted in review of the chart prior to signing ED Disposition - Plan for ED Patient: Disposition: Home or Assisted Living Chief Complaint: Wound Check Instructions: ED Wound Check Post Op No Infec Referrals: Susana Diaz III, MD [Primary Care Provider] - Gigi Mendieta MD [STAFF PHYSICIAN] - Keep Raul appointment Additional Instructions: Please use wet-to-dry dressings at home until you can get a wound VAC replacement on the wound. Continue your pain medications and antibiotics as you were prescribed. Keep your follow-up appointment with Dr. Mendieta as scheduled. If you find you are unable to urinate for several hours, please return to emergency department for Adhikari catheter replacement. If you have any worsening of your condition or any new concerning symptoms, please return immediately to the emergency department for another evaluation. What to do if you have Problems For any increased pain, shortness of breath, bleeding, nausea or vomiting, chest pain, or any unexpected problems, contact your Primary Care Provider. Call [facility] ([phone]) or report to the closest Emergency Room. Call 911 if necessary. 07/28/17 190 <Electronically signed by Darline Griggs MD> Date Darline Griggs MD Cosigner Signature (If Indicated): Date CC: Susana Diaz III, MD DISCHARGE INSTRUCTION Observed: 07/28/2017 Status: F Source: [place] 6:41 PM [facility] REPOSITORY [facility] Medical Records Department [address] [place] [address] Discharge Instruction 07/28/17 1840 MR#: [id number] Acct: [id number] Name: TRAMAINE PENG Rep #: [id number] : 1985 32 From: Darline Griggs MD PCP: Susana Diaz III, MD Status: REG ER ED Disposition - Plan for ED Patient: Disposition: Home or Assisted Living Chief Complaint: Wound Check Instructions: ED Wound Check Post Op No Infec Referrals: Susana Diaz III, MD [Primary Care Provider] - Gigi Mendieta MD [STAFF PHYSICIAN] - Keep Raul appointment Additional Instructions: Please use wet-to-dry dressings at home until you can get a wound VAC replacement on the wound. Continue your pain medications and antibiotics as you were prescribed. Keep your follow-up appointment with Dr. Mendieta as scheduled. If you find you are unable to urinate for several hours, please return to emergency department for Adhikari catheter replacement. If you have any worsening of your condition or any new concerning symptoms, please return immediately to the emergency department for another evaluation. What to do if you have Problems For any increased pain, shortness of breath, bleeding, nausea or vomiting, chest pain, or any unexpected problems, contact your Primary Care Provider. Call [facility] ([phone]) or report to the closest Emergency Room. Call 911 if necessary. 07/28/17 1841 <Electronically signed by Darline Griggs MD> Date Darlnie Griggs MD Cosigner Signature (If Indicated): Date CC: Susana Diaz III, MD Observed: 07/28/2017 Status: F Source: [place] CULTURE, BLOOD (WB) 6:07 PM [facility] REPOSITORY BC No growth in 5 days. Performed By: #### M200.1000 #### [facility] [address] [place], [address] LACTIC ACID Collected: 07/28/2017 Status: F Source: [place] 4:56 PM [facility] REPOSITORY Order Comment: Yes/No query for Sepsis Lactate Rule Y TYPE CODE TESTS RESULT OUT OF RANGE REFERENCE UNITS LAB L503.6005 0.4-2.0 mmol/L Normal LACTIC ACID 0.5 Performed By: #### L503.6005 #### [facility] [address] [place], [place], [id number] Observed: 07/28/2017 Status: F Source: [place] CULTURE, BLOOD (WB) 4:56 PM [facility] REPOSITORY BC No growth in 5 days. Performed By: #### M200.1000 #### [facility] [address] [place], [place], [id number] URINALYSIS, COMPLETE Collected: 07/28/2017 Status: F Source: HERB 4:48 PM [facility] REPOSITORY Order Comment: How was Urine Obtained? SEW OUT OPERATOR TO SPECIFY TYPE CODE TESTS RESULT OUT OF RANGE REFERENCE UNITS LAB L400.3000 Yellow COLOR Normal Yellow LAB L400.3050 Clear Normal CLARITY Clear LAB L400.3200 Normal mg/dl Normal GLUCOSE, UR Normal LAB L400.3300 Negative mg/dL Normal BILIRUBIN URINE Negative LAB L400.3400 Negative mg/dl Normal KETONE UR Negative LAB L400.3465 1.002-1.030 Normal SP.GR. DIPSTX 1.025 LAB L400.3550 5.0 - 8.0 pH UR Normal 6.0 LAB L400.3600 Negative mg/dl PROT Normal DIPSTX Negative LAB L400.3700 Normal mg/dl Normal UROBILI Normal LAB L400.3750 Negative Normal NITRITE UR Negative LAB L400.3780 Negative /ul Normal OCCULT BLOOD-UR Negative LAB L400.3800 Negative /ul LEUK Normal ESTERASE Negative LAB L400.4050 0-5 /hpf WBC 0 Normal SEEN LAB L400.4100 0-5 /hpf 0 Normal RBC-UA SEEN LAB L400.4150 5-10 /hpf SQUAM Normal EPI 0-5 SEEN LAB L400.4300 None Seen /hpf 0 Normal BACTERIA SEEN LAB L400.4350 <or=2+ /hpf 0 Normal MUCUS, URINE SEEN Performed By: #### L400.0001 #### [facility] [address] [place], [place], [address] Observed: 07/28/2017 Status: F Source: HERB CULTURE, URINE 4:48 PM [facility] REPOSITORY Urine Culture Culture exhibits no growth. Performed By: #### M100.0650 #### [facility] [address] [place], [place], [id number] CBC W/DIFF, AUTOMATED Collected: 07/28/2017 Status: F Source: [place] 4:25 PM [facility] REPOSITORY TYPE CODE TESTS RESULT OUT OF RANGE REFERENCE UNITS LAB L100.1000 4.4-11.0 K/mm3 Normal WBC 7.1 LAB L100.1200 4.2-5.4 M/mm3 Low RBC 3.73 LAB L100.1300 12.0-15.0 g/dl Low HGB 9.9 LAB L100.1400 37-47 % Low HCT 31.3 LAB L100.1500 81-99 fL Normal MCV 83.9 LAB L100.1600 27.0-32.0 pg Low MCH 26.5 LAB L100.1700 32-36 g/gl Low MCHC 31.6 LAB L100.1810 11.6-14.6 % High RDW CV 15.4 LAB L100.1820 35.1-43.9 fl High RDW SD 46.3 LAB L100.1900 150-450 K/mm3 Normal PLT 347 LAB L100.2000 6.2-12.0 fl Normal MPV 10.5 LAB L100.2100 47-70 % Normal NEUT% 63.1 LAB L100.2200 19-41 % Normal LY% 21.2 LAB L100.2300 0-10 % High MONO% 11.6 LAB L100.2400 0-5 % Normal EO% 3.4 LAB L100.2500 0-1 % Normal BASO% 0.6 LAB L100.2550 0.0-0.9 % Normal IM GRAN % 0.100 Result Comment: IG% - Immature Granulocytes (promyelocytes, myelocytes and metamyelocytes) > 1% indicates that a LEFT SHIFT is Present. LAB L100.2620 2.0-7.7 X10 3/uL Normal Absolute Neut 4.5 LAB L100.2720 0.83-4.51 X10 3/ul Normal Absolute Lymph 1.50 Performed By: #### L100.0100 #### [facility] [address] [place], [place], [address] COMPREHENSIVE METABOLIC Collected: 07/28/2017 Status: F Source: HERB [facility] 4:25 PM [facility] REPOSITORY TYPE CODE TESTS RESULT OUT OF RANGE REFERENCE UNITS LAB L501.0100 74-106 mg/dL Normal GLU 84 Result Comment: Please note revised GLUCOSE reference range effective 2017. LAB L501.1000 7-18 mg/dL Normal BUN 17 LAB L501.1100 0.55-1.02 mg/dL Normal CREAT,SERUM 0.66 Result Comment: The validity of the calculated GFR AND GFRAA in patients over 70 years has not been determined. Clinical correlation is essential. LAB L501.1110 >60 mL/min Normal EST GFR 112 Result Comment: Non- GFR Calc LAB L501.1115 >60 mL/min Normal EST GFR - AA 135 Result Comment: GFR Calc LAB L501.1255 ml/min Normal Estimated CRCL 115.62 LAB L501.1300 10-20 RATIO High BUN/CRE 26.0 LAB L501.1500 6.4-8. g/dL 2 T PROT Normal 7.1 LAB L501.1800 3.2-5. g/dL 0 ALB Normal 3.4 LAB L501.1950 2.2-4. g/dL 2 GLOB Normal 3.7 LAB L501.2000 0.9-2. RATIO 4 A/G Normal 0.9 LAB L501.2200 8.5-10 mg/dL .1 CA Normal 8.8 LAB L501.4100 15-37 U/L AST Normal 33 LAB L501.4305 45-117 U/L High ALK P 148 LAB L501.4405 13-56 U/L High ALT 112 LAB L501.4600 0.20-1 mg/dL .00 T BILI Normal 0.20 LAB L501.5300 136-14 mmol/L 5 NA Normal 138 LAB L501.5600 3.5-5. mmol/L 1 K Normal 3.7 LAB L501.5900 98-107 mmol/L CL Normal 103 LAB L501.6100 21.0-3 mmol/L 2.0 CO2 Normal 30.0 LAB L501.6200 5-15 GAP Normal 5 Performed By: #### L500.4050 #### [facility] [address] [place], [address] PROTHROMBIN TIME W/INR Collected: 07/28/2017 Status: F Source: [place] 4:25 PM [facility] REPOSITORY TYPE CODE TESTS RESULT OUT OF RANGE REFERENCE UNITS LAB L300.4150 11.7-14.9 SECONDS Normal PROTIME 13.0 LAB L300.4200 Normal INR 1.0 Performed By: #### L300.3900, L300.4310 #### [facility] [address] [place], [address] PARTIAL THROMBOPLAST Collected: 07/28/2017 Status: F Source: [place] TIME 4:25 PM [facility] REPOSITORY TYPE CODE TESTS RESULT OUT OF RANGE REFERENCE UNITS LAB L300.4310 24.1-36.2 Seconds Normal PTT 31.3 Performed By: #### L300.3900, L300.4310 #### [facility] [address] [place], [address] KIDNEY AND BLADDER Observed: 07/28/2017 Status: F Source: [place] 4:14 PM [facility] REPOSITORY [facility] Imaging Services [address] [place] [address] Kidney and Bladder MR#: [id number] Acct: [id number] Name: TRAMAINE PENG Rep #: [id number] : 1985 F 32 From: Soto Dickerson MD PCP: Susana Diaz III, MD Status: REG ER Study: Kidney and Bladder Date of Exam: 07/28/17 Exam# [id number] Ordering Dr: Darline Griggs MD STUDY: RENAL ULTRASOUND - COMPLETE REASON FOR EXAM: Female, 32 years old. Renal stone. TECHNIQUE: Ultrasound evaluation of the kidneys was performed with real-time and static diaz-scale imaging. COMPARISON: Ultrasound May 05, 2017. CT July 12, 2017 FINDINGS: RIGHT KIDNEY: Normal location of the right kidney, which is normal in size. The right kidney measures 11.0 cm. There is a normal cortex of the right kidney. The renal cortex measures 1.5 cm. There is no right renal mass or cyst. There is 0.5 cm echogenic focus at the upper pole consistent with stone. There is no right hydronephrosis. DISTAL RIGHT URETER: There is non-visualization of the distal right ureter. There is no demonstrated right ureterovesical junction calculus. There is no demonstrated right ureteral jet. LEFT KIDNEY: Normal location of the left kidney, which is normal in size. The left kidney measures 12.3 cm. There is a normal cortex of the left kidney. The renal cortex measures 1.9 cm. There is no left renal mass or cyst. There are no left renal calculi. There is no left hydronephrosis. DISTAL LEFT URETER: There is non-visualization of the distal left ureter. There is no demonstrated left ureterovesical junction calculus. There is no demonstrated left ureteral jet. BLADDER: Bladder is not visualized due to Adhikari catheter. US/Kidney and Bladder IMPRESSION: Stable right renal stone. No hydronephrosis. Electronically Signed: Soto Dickerson MD at 18:30 EDT , Service support , CC: Susana Diaz III, MD; Darline Griggs MD Manager Equity: Signed DISCHARGE INSTRUCTION Observed: 07/21/2017 Status: F Source: [place] 1:48 PM [facility] REPOSITORY [facility] Medical Records Department [address] [place] [address] Instructions for Home/Discharge Instructions 07/21/17 1344 MR#: [id number] Acct: [id number] Name: TRAMAINE PENG Rep #: [id number] : 1985 32 From: Gigi Mendieta MD PCP: Susana Diaz III, MD Status[place] [facility] You will use the following diet at home:: No restrictions, Other - encourage nutritional supplementation with protein to help the healing process. Discharge Activity: May not drive while taking narcotic pain medications., May Shower - on the days the vac is changed., - - no heavy lifting. minimize standing. Return to work on:: 07/28/17 - tentative. May shower in (days): 2 - may shower on the days the vac is changed. May resume sexual activity in: No Restrictions Weight Bearing Status: Weight bearing as tolerated Lifting Restrictions: 20 lbs. Call your doctor if your incision/area has: Continuous Slow Oozing, Sudden Increased Bleeding, Increased Pain/ Swelling, Increased Redness, Foul Smelling Discharge, Swelling at the incision site Call your doctor if you observe: Fever of 101 or Higher, Coldness, Increased Pain, Shortness of breath, Chest pain, Calf discomfort, Uncontrolled pain Suture Line Care: - - vac changes three times per week at 150 mmHg continuous suction. Change Dressing in (Days):: 2 - vac changes three times per week. Cleanse incision/area with: Soap AND Water - may cleanse the wound with soap and water at the time of the vac change., - - may shower on the days the vac is changed. Additional Dressing/Incision Instructions:: Home Health to assist with the vac changes three times per week at 150 mmHg continuous suction. may cleanse the wound with soap and water at the time of the vac change. Allergies/Adverse Reactions: Allergies methocarbamol Allergy (Verified 07/14/17 15:06) Chest tightness gabapentin Adverse Reaction (Verified 07/14/17 15:06) MADE ME WALK SIDEWAYS ketorolac tromethamine [From Toradol] Adverse Reaction (Verified 07/14/17 15:06) Upset Stomach NSAIDS (Non-Steroidal Anti-Inflamma Adverse Reaction (Verified 07/14/17 15:06) gastric bipass not supposed to take tramadol Adverse Reaction (Verified 07/14/17 15:06) Upset Stomach Medications to take at Discharge Amitriptyline HCl [Elavil] 50 mg PO QHS PRN 04/30/17 Amlodipine Besylate [Norvasc] 10 mg PO DAILY 04/30/17 Ergocalciferol [Vitamin D] 50,000 unit PO QWEEK 04/30/17 Etonogestrel [Nexplanon] 68 mg SQ UD 04/30/17 Potassium Chloride [K-Dur] 10 meq PO BID 04/30/17 Tamsulosin HCl [Flomax] 0.4 mg PO DAILY PRN 04/30/17 Iron Polysaccharide Complex [Ferrex 150] 150 mg PO DAILYCM cap 05/10/17 Lisinopril [Zestril] 40 mg PO BID 05/30/17 Ondansetron [Zofran Odt] 4 mg PO Q8H PRN PRN #20 tablet 06/01/17 Cyanocobalamin [Vitamin B12] 1,000 mcg IM Q30D 07/06/17 proMETHazine tablet [Phenergan tablet] 25 mg PO Q8H PRN PRN 07/06/17 Diazepam [Valium] 5 mg PO 4X/DAY PRN PRN #30 tab 07/21/17 Hydrocodone/Acetaminophen [[place] 10-325 Tablet] 1 ea PO 4X/DAY PRN PRN 7 Days #30 tab 07/21/17 Levofloxacin [Levaquin] 500 mg PO DAILY #10 tab 07/21/17 The following prescriptions were given: Diazepam [Valium] 5 mg PO 4X/DAY PRN PRN #30 tab PRN Reason: Spasms Hydrocodone/Acetaminophen [[place] 10-325 Tablet] 1 ea PO 4X/DAY PRN PRN 7 Days #30 tab PRN Reason: Pain Levofloxacin [Levaquin] 500 mg PO DAILY #10 tab Primary Care Physician: Susana Diaz III, MD [Primary Care Provider] - Please Follow Up With: Gigi Mendieta MD - call [phone] for appt time. When: wednesday08/02/17 at wound center. Proposed Discharge Date: 07/21/17 07/21/17 1348 <Electronically signed by Gigi Mendieta MD> Date Gigi Mendieta MD CC: Susana Diaz III, MD; [facility] CBC-COMPLETE BLOOD CNT Collected: 07/21/2017 Status: F Source: [place] NO DIFF 5:34 AM [facility] REPOSITORY TYPE CODE TESTS RESULT OUT OF RANGE REFERENCE UNITS LAB L100.1000 4.4-11.0 K/mm3 Normal WBC 9.5 LAB L100.1200 4.2-5.4 M/mm3 Low RBC 3.26 LAB L100.1300 12.0-15.0 g/dl Low HGB 9.0 LAB L100.1400 37-47 % Low HCT 28.2 LAB L100.1500 81-99 fL Normal MCV 86.5 LAB L100.1600 27.0-32.0 pg Normal MCH 27.6 LAB L100.1700 32-36 g/gl Low MCHC 31.9 LAB L100.1810 11.6-14.6 % High RDW CV 15.3 LAB L100.1820 35.1-43.9 fl High RDW SD 47.1 LAB L100.1900 150-450 K/mm3 Normal PLT 309 LAB L100.2000 6.2-12.0 fl Normal MPV 10.8 Performed By: #### L100.0500, L500.2500, L506.0500 #### [facility] [address] [place], [address] BASIC METABOLIC Collected: 07/21/2017 Status: F Source: [place] PROFILE ([facility]) 5:34 AM [facility] REPOSITORY TYPE CODE TESTS RESULT OUT OF RANGE REFERENCE UNITS LAB L501.0100 74-106 mg/dL High GLU 150 Result Comment: Fasting Glucose result greater than or equal to 126 mg/dL suggests DIABETES MELLITUS per A.D.A. criteria. Please note revised GLUCOSE reference range effective 2017. LAB L501.1000 7-18 mg/dL Normal BUN 10 LAB L501.1100 0.55-1.02 mg/dL Normal CREAT,SERUM 0.60 Result Comment: The validity of the calculated GFR AND GFRAA in patients over 70 years has not been determined. Clinical correlation is essential. LAB L501.1110 >60 mL/min Normal EST GFR 123 Result Comment: Non- GFR Calc LAB L501.1115 >60 mL/min Normal EST GFR - AA 148 Result Comment: GFR Calc LAB L501.1255 ml/min Normal Estimated CRCL 127.18 LAB L501.1300 10-20 RATIO BUN/CRE Normal 16.6 LAB L501.2200 8.5-10 mg/dL Low .1 CA 8.3 LAB L501.5300 136-14 mmol/L 5 NA Normal 139 LAB L501.5600 3.5-5. mmol/L 1 K Normal 3.9 LAB L501.5900 98-107 mmol/L CL Normal 106 LAB L501.6100 21.0-3 mmol/L 2.0 CO2 Normal 26.0 LAB L501.6200 5-15 GAP Normal 7 Performed By: #### L100.0500, L500.2500, L506.0500 #### [facility] [address] [place], [address] PREALBUMIN Collected: 07/21/2017 Status: F Source: [place] 5:34 AM [facility] REPOSITORY TYPE CODE TESTS RESULT OUT OF RANGE REFERENCE UNITS LAB L506.0500 20.0-40.0 mg/dL Normal PREALBUMIN 25.9 Performed By: #### L100.0500, L500.2500, L506.0500 #### [facility] [address] [place], [address] MASS (DEFINE AREA) Observed: 07/20/2017 Status: F Source: [place] 8:00 AM [facility] REPOSITORY Patient: TRAMAINE PENG : 1985 (32/F) Acct Num: [id number] Phys: Gigi Mendieta MD Unit Num: [id number] [place] [facility]imen: [id number] Received: 07/20/17 - 1001 Spec Type: Mass TISSUES TISSUES: Skin of pubic area GROSS DESCRIPTION Received in fixative is one container labeled with the patient's name and designated lymphedema nonhealing ulcer pubic area. The specimen consists of a piece of motley-white skin with underlying tissue measuring 19 x 17 x 6 cm. Multiple hairs are noted on the surface. Also received are four variable size pieces of motley-yellow adipose tissue measuring in aggregate 9 x 7 x 3 cm. One of the smaller pieces also shows a piece of skin. A focal area of ulceration is noted. Sections do not reveal any mass lesion. Bookkeeping Machine Operator sections are submitted in four cassettes as follows: 1 AND 2 smaller pieces of tissue, 3 AND 4 ulcerated area, largest piece of tissue. / MORENA:lucinda 07/20/17 TC:2 CPT: 66844 HEADER OPERATION: Surgical preparation mons pubis of vulva with excision PRE-OP DIAGNOSIS: Eight cm painful soft tissue mass pubic area, recent excessive weight loss after gastric bypass procedure, abdominal wall skin crease intertrigo TISSUE SUBMITTED: Lymphedema genitalia, nonhealing ulcer pubic area MICROSCOPIC DESCRIPTION Slides are reviewed. MICROSCOPIC DIAGNOSIS Nonhealing ulcer pubic area and lymphedema: Pieces of skin with underlying tissue with focal ulceration, acute and chronic inflammation, fat necrosis and fibrosis. SJ:lucinda 07/21/17 Signed Anival Conner 07/21/17 <signature on file> Performed By: #### PMASS #### [facility] [address] [place], [place], [address] ,URINE Collected: 07/20/2017 Status: F Source: [place] 6:32 AM [facility] REPOSITORY TYPE CODE TESTS RESULT OUT OF REFERENCE UNITS RANGE LAB L400.8000 Negative Normal HCGUQUAL Negative Result Comment: Very dilute urine specimens, as indicated by a low specific gravity, may not contain ocean import representative levels of hCG. If is still suspected, a first morning urine specimen should be collected 48 hours later and tested. Performed By: #### L400.7600 #### [facility] [address] [place], [address] Observed: 07/20/2017 Status: F Source: [place] CULTURE, DEEP WOUND 12:00 AM [facility] REPOSITORY Comments: LYMPHEDEMA GENETALIA NON HEALING ULCER PUBIC AREA Gram Stain Gram Stain 4+ Red Blood Cells 1+ White Blood Cells No organisms seen Wound Culture ORGANISM 1: Staphylococcus aureus Amount Growth Very Rare Staphylococcus aureus: REACTION Benzylpenicillin NF >=0.5 R Cefoxitin *NF - Clindamycin $$ <=0.25 S Inducable Clindamycin [place] - Erythromycin $ <=0.25 S Gentamicin $ <=0.5 S Levofloxacin $ 0.25 S Linezolid $$$$ 2 S Moxifloxicin *NF <=0.25 S Oxacillin NF 0.5 S Tigecycline $$$$ <=0.12 S Rifampin $$ <=0.5 S Tetracycline NF <=1 S Trimethoprim/Sulfametho $ <=10 S Vancomycin $ <=0.5 S (NF) indicates non-formulary drug at [facility]. Approval by Infectious Disease Specialist required before non-formulary drugs may be ordered and/or dispensed. * CLSI guidelines does not recommend testing of cephalosporins. This interpretation is deduced from Beta-lactam/penicillin results. Cult, Anaerobic No anaerobic bacteria isolated. Performed By: #### M100.1500 #### [facility] [address] [place], [address] MRSA WOUND DNA BY Collected: 07/20/2017 Status: F Source: [place] PCR 12:00 AM [facility] REPOSITORY Order Comment: Has pt arrived? Y Comments: LYMPHEDEMA GENETALIA NON HEALING ULCER PUBIC AREA Specimen Source? SEE ABOVE TYPE CODE TESTS RESULT OUT OF RANGE REFERENCE UNITS LAB L8200.1100 Negative Normal MRSA Negative RESULT LAB L8200.1150 Negative Normal SA RESULT NEGATIVE Performed By: #### L8200.1075 #### [facility] [address] [place], [address] Observed: 07/20/2017 Status: F Source: [place] CULTURE, FUNGUS W/ 12:00 [facility] [id number] REPOSITORY Comments: LYMPHEDEMA GENETALIA NON HEALING ULCER PUBIC AREA Has pt arrived? Y Is this test to exclude patient from TB Isolation? N Cu,[id number] TESTING PERFORMED AT [facility]. ORIGINAL REPORT ON FILE IN LAB CONTAINS ADDITIONAL TEST SITE INFORMATION. CUF No yeast or mold isolated after [address] TESTING PERFORMED AT [facility]. ORIGINAL REPORT ON FILE IN LAB CONTAINS ADDITIONAL TEST SITE INFORMATION. Fungus Stain No yeast or mold observed. Performed By: #### M600.1900 #### [facility] [address] [place], [address] DISCHARGE INSTRUCTION Observed: 07/12/2017 Status: F Source: [place] 2:49 PM [facility] REPOSITORY [facility] Medical Records Department [address] [place] [address] [place] [address] Discharge Instruction 07/12/17 1447 MR#: [id number] Acct: [id number] Name: TRAMAINE PENG Rep #: [id number] : 1985 32 From: Domitila Gillespie DO PCP: Susana Diaz III, MD Status: REG ER ED Disposition - Plan for ED Patient: Chief Complaint: Vag Bleeding Instructions: ED Bleed Irregular Vaginal, ED Wound Infec After Surgery Referrals: Susana Diaz III, MD [Primary Care Provider] - 3-5 Days Dayana Anthony MD [STAFF PHYSICIAN] - 3-5 Days What to do if you have Problems For any increased pain, shortness of breath, bleeding, nausea or vomiting, chest pain, or any unexpected problems, contact your Primary Care Provider. Call [facility] ([phone]) or report to the closest Emergency Room. Call 911 if necessary. 07/12/17 1449 <Electronically signed by Domitila Gillespie DO> Date Domitila Gillespie DO Cosigner Signature (If Indicated): Date CC: Susana Diaz III, MD EMERGENCY DEPARTMENT Observed: 07/12/2017 Status: F Source: [place] SUMMARY 2:46 PM [facility] REPOSITORY [facility] Medical Records Department [address] [place] [address] Emergency Department Summary 07/12/17 1440 MR#: [id number] Acct: [id number] Name: TRAMAINE PENG Rep #: [id number] : 1985 32 From: Domitila Gillespie DO PCP: Susana Diaz III, MD Status: REG ER - ER Visit Summary Date of Service: 07/12/17 Chief Complaint: [Vaginal bleeding] History of Present Illness: The patient is a 32 F [presents to the emergency department with complaint of vaginal bleeding for the last 2 weeks. Patient states that she has a lower abdominal wound infection for which she has been currently treated with Levaquin. Up until 2 weeks ago she had a wound VAC on this wound and has been seeing the wound center and seeing Dr. Mendieta. Patient was seen by Dr. Mendieta and have the wound evaluated. Patient is scheduled to have repeat surgery with him in early July. Patient is concerned that her vaginal bleeding started at the same time that her wound VAC was taken off. Patient states normally her periods are regular. Patient does not believe she is as she is not sexually active. Patient denies any fevers. She has had some nausea. Patient denies urinary symptoms. Patient currently does not have an TEST PREPARATION TUTOR that she follows up with.] Physical Examination: [HEENT-PERRLA, EOMI. Cranial nerves II through XII grossly intact. TMs clear. Mucous membranes moist. No adenopathy. Cardiovascular-regular rate and rhythm without murmur or ectopy Lungs-clear to auscultation, chest wall stable without crepitus or subcu emphysema Abdomen-normoactive bowel sounds, soft, nontender, no rebound or rigidity, no peritoneal signs. Patient has a incision/wound over the suprapubic region that is currently dressed but there is no evidence of erythema I did not remove the recently applied dressing given that her surgeon evaluated the wound today. Extremities-intact 4, normal range of motion, normal pulses, atraumatic] Test Results: [CBC with differential obtained showed a white blood cell count of 4.5, hemoglobin 10.6, hematocrit 33, platelets 396. Chemistries were normal. Urinalysis showed greater than [address] scan of the abdomen and pelvis was obtained which showed patient to be status post cholecystectomy and gastric bypass patient had bilateral nonobstructing nephrolithiasis. Patient had phlegmon and scarring changes within the subcutaneous fat anterior to the pubic symphysis containing air no evidence for well-defined drainable abscess at this time no significant interval change from prior CT.] Emergency Department Course and Treatment: [Patient was given morphine and Zofran for discomfort in the department.] Treatment Plan: [Patient will be referred to TEST PREPARATION TUTOR on-call for dysfunctional uterine bleeding and she is to continue to keep her appointments with her surgeon. Patient to continue with current antibiotic.] Disposition: [Discharged to home in stable condition.] Impression: [Dysfunctional uterine bleeding Wound infection-chronic] This note was generated with Snapwiz dictation software. It may contain incorrect words, spelling, and punctuation that were not noted in review of the chart prior to signing ED Disposition - Plan for ED Patient: Chief Complaint: Vag Bleeding Referrals: Susana Diaz III, MD [Primary Care Provider] - What to do if you have Problems For any increased pain, shortness of breath, bleeding, nausea or vomiting, chest pain, or any unexpected problems, contact your Primary Care Provider. Call [facility] ([phone]) or report to the closest Emergency Room. Call 911 if necessary. 07/12/17 1446 <Electronically signed by Domitila Gillespie DO> Date Domitila Gillespie DO Cosigner Signature (If Indicated): Date CC: Susana Diaz III, MD URINALYSIS, COMPLETE Collected: 07/12/2017 Status: F Source: [place] 1:10 PM [facility] REPOSITORY Order Comment: Order Date: 07/12/17 COLOR OF URINE MAY AFFECT DIPSTICK RESULTS. How was Urine Obtained? SEW OUT OPERATOR TO SPECIFY TYPE CODE TESTS RESULT OUT OF RANGE REFERENCE UNITS LAB L400.3000 Yellow COLOR Normal Red LAB L400.3050 Clear Normal CLARITY Turbid LAB L400.3200 Normal mg/dl Normal GLUCOSE, UR Normal LAB L400.3300 Negative mg/dL Normal BILIRUBIN URINE Negative LAB L400.3400 Negative mg/dl Normal KETONE UR Negative LAB L400.3465 1.002-1.030 Normal SP.GR. DIPSTX 1.020 LAB L400.3550 5.0 - 8.0 pH UR Normal 5.0 LAB L400.3600 Negative mg/dl High PROT DIPSTX 100 LAB L400.3700 Normal mg/dl Normal UROBILI Normal LAB L400.3750 Negative Normal NITRITE UR Negative LAB L400.3780 Negative /ul High OCCULT BLOOD-UR 250 LAB L400.3800 Negative /ul High LEUK 25 ESTERASE LAB L400.4050 0-5 /hpf WBC 0 Normal SEEN LAB L400.4100 0-5 /hpf > Normal RBC-UA 100 SEEN Result Comment: Microscopic field is filled. Other elements may be obscured. LAB L400.4150 5-10 /hpf Normal SQUAM EPI 0 SEEN LAB L400.4300 None Seen /hpf Normal BACTERIA 0 SEEN LAB L400.4350 <or=2+ /hpf Normal MUCUS, URINE 0 SEEN Performed By: #### L400.0001 #### [facility] [address] [place], [address] CBC W/DIFF, AUTOMATED Collected: 07/12/2017 Status: F Source: [place] 11:30 AM [facility] REPOSITORY TYPE CODE TESTS RESULT OUT OF RANGE REFERENCE UNITS LAB L100.1000 4.4-11.0 K/mm3 Normal WBC 4.5 LAB L100.1200 4.2-5.4 M/mm3 Low RBC 3.82 LAB L100.1300 12.0-15.0 g/dl Low HGB 10.6 LAB L100.1400 37-47 % Low HCT 32.8 LAB L100.1500 81-99 fL Normal MCV 85.9 LAB L100.1600 27.0-32.0 pg Normal MCH 27.7 LAB L100.1700 32-36 g/gl Normal MCHC 32.3 LAB L100.1810 11.6-14.6 % High RDW CV 16.5 LAB L100.1820 35.1-43.9 fl High RDW SD 51.4 LAB L100.1900 150-450 K/mm3 Normal PLT 396 LAB L100.2000 6.2-12.0 fl Normal MPV 10.8 LAB L100.2100 47-70 % Normal NEUT% 51.6 LAB L100.2200 19-41 % Normal LY% 31.6 LAB L100.2300 0-10 % High MONO% 10.4 LAB L100.2400 0-5 % High EO% 5.1 LAB L100.2500 0-1 % High BASO% 1.1 LAB L100.2550 0.0-0.9 % Normal IM GRAN % 0.200 Result Comment: IG% - Immature Granulocytes (promyelocytes, myelocytes and metamyelocytes) > 1% indicates that a LEFT SHIFT is Present. LAB L100.2620 2.0-7.7 X10 3/uL Normal Absolute Neut 2.3 LAB L100.2720 0.83-4.51 X10 3/ul Normal Absolute Lymph 1.42 Performed By: #### L100.0100 #### [facility] [address] [place], [place], [id number] BASIC METABOLIC Collected: 07/12/2017 Status: F Source: [place] PRO[place] ([place]) 11:30 AM [facility] REPOSITORY TYPE CODE TESTS RESULT OUT OF RANGE REFERENCE UNITS LAB L501.0100 74-106 mg/dL Normal GLU 81 Result Comment: Please note revised GLUCOSE reference range effective 2017. LAB L501.1000 7-18 mg/dL Normal BUN 16 LAB L501.1100 0.55-1.02 mg/dL Normal CREAT,SERUM 0.69 Result Comment: The validity of the calculated GFR AND GFRAA in patients over 70 years has not been determined. Clinical correlation is essential. LAB L501.1110 >60 mL/min Normal EST GFR 105 Result Comment: Non- GFR Calc LAB L501.1115 >60 mL/min Normal EST GFR - AA 127 Result Comment: GFR Calc LAB L501.1255 ml/min Normal Estimated CRCL 110.59 LAB L501.1300 10-20 RATIO High BUN/CRE 23.2 LAB L501.2200 8.5-10 mg/dL .1 CA Normal 9.0 LAB L501.5300 136-14 mmol/L 5 NA Normal 139 LAB L501.5600 3.5-5. mmol/L 1 K Normal 4.0 Result Comment: Slight Hemolysis, Result may be falsely increased. LAB L501.5900 98-107 mmol/L Normal CL 107 LAB L501.6100 21.0-32.0 mmol/L Normal CO2 26.0 LAB L501.6200 5-15 Normal 6 GAP Performed By: #### L500.2500 #### [facility] [address] [facility] [place], [address] ,SERUM,HCG QUALI. Collected: Status: F Source: [place] 07/12/2017 11:30 AM [facility] REPOSITORY TYPE CODE TESTS RESULT OUT OF REFERENCE UNITS RANGE LAB L700.6700 =>Qualitative mIU/mL Normal HCG Qual < 1 triggr LAB L700.7000 0-9 Nonpreg Negative Normal HCGSQUAL NEGATIVE Performed By: #### L700.6800 #### [facility] [address] [facility]. [place], [place], [id number] ABDOMEN/PELVIS WITHOUT Observed: 07/12/2017 Status: F Source: [place] 11:07 AM [facility] REPOSITORY [facility] Imaging Services [address] [place] [address] Abdomen/Pelvis without Cont MR#: [id number] Acct: [id number] Name: TRAMAINE PENG Rep #: [id number] : 1985 F 32 From: Foreign Castanon MD PCP: Susana Diaz III, MD Status: REG ER Study: Abdomen/Pelvis without Cont Date of Exam: 07/12/17 Exam# [id number] Ordering Dr: Domitila Gillespie DO STUDY: CT ABDOMEN AND PELVIS WITHOUT CONTRAST REASON FOR EXAM: Female, 32 years old. Lower abdominal wound with drainage. RADIATION DOSAGE (If Supplied By Facility): CTDIvol = ( 15.28 ) mGy, DLP = ( 847.32 ) mGycm TECHNIQUE: Transaxial images were obtained from the dome of the diaphragm to the symphysis pubis without oral contrast, and without intravenous contrast. Sagittal and coronal images were reconstructed. Individualized dose optimization techniques were used for this CT. COMPARISON: May 30, 2017. FINDINGS: The visualized lung bases are unremarkable. The visualized portions of the heart are within normal limits. Normal liver. There are surgical clips in the gallbladder fossa consistent with a prior cholecystectomy. Normal spleen. Normal pancreas. Normal bilateral adrenal glands. There are a few, tiny, nonobstructing intrarenal calculi. The largest is seen in the right kidney measuring approximately 2 mm in maximum dimension. There is no hydronephrosis. There is no ureteral calculi. There is no hydroureter. The patient is status post gastric bypass. There is no evident obstruction. Normal small intestine. Normal colon. The appendix is visualized and appears normal. Normal abdominal aorta. Normal inferior vena cava. Normal retroperitoneum. Normal urinary bladder. There is a prominent ventral lower abdomen/upper pelvic midline defect that communicates lower to a irregular marginated density containing air within the ventral upper pelvis seen best on sequence #2, image 172. There is no connection with deeper intrapelvic structures. Normal osseous structures. CT/Abdomen/Pelvis without Cont IMPRESSION: Status post cholecystectomy and gastric bypass. Bilateral nonobstructing nephrolithiasis. Phlegmon and scarring changes within the subcutaneous fat anterior to the pubic symphysis containing air. No evidence for well-defined drainable abscess at this time. No significant interval change. Electronically Signed: Foreign Castanon MD at 14:32 EDT , Service support , CC: Susana Diaz III, MD; Domitila Gillespie DO Manager Equity: Signed PROGRESS Observed: 07/06/2017 Status: COMPLETED Source: [place] 7:45 PM [facility] [place] REPOSITORY HNO ID: [id number] Author: Susana Diaz III Service: (none) Author Type: Physician Type: Progress Notes Filed: 07/06/2017 7:45 PM Note Text: Tramaine, Good news--your proteins are now normal. This will promote healing! Susana Diaz III MD PROGRESS Observed: 07/06/2017 Status: COMPLETED Source: [place] 7:38 PM [facility] REPOSITORY O ID: [id number] Author: Susana Diaz III Service: (none) Author Type: Physician Type: Progress Notes Filed: 07/06/2017 7:38 PM Note Text: Tramaine, Your anemia is slowly improving! Susana Diaz III MD EMERGENCY DEPARTMENT Observed: 07/06/2017 Status: F Source: [place] SUMMARY 7:10 PM [facility] REPOSITORY [facility] Medical Records Department [address] [facility] [address] [place] [address] Emergency Department Summary 07/06/17 1640 MR#: [id number] Acct: [id number] Name: TRAMAINE PENG Rep #: [id number] : 1985 32 From: Adonis Morillo MD PCP: Susana Diaz III, MD Status: DEP ER - ER Visit Summary Date of Service: 07/06/17 Chief Complaint: Flank pain History of Present Illness: The patient is a 32 F presents to the emergency department flank pain. 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 States her pain started last night rather suddenly. States waxes and wanes. She describes a sharp pain in her left flank. She denies any fevers or chills. She does admit to nausea or vomiting. She states she has also had some hematuria. Patient currently does not have an active urologist. She has not required any recent procedure for stone. She did have a CT scan 1 month ago which showed small stones. The patient is also currently following with Dr. Mendieta for postoperative wound care from skin removal after her gastric bypass. She was actually seen yesterday. She states she fell yesterday and is worried about her wound. She denies any bleeding or increased drainage. Physical Examination: Vital signs reviewed General: Well-nourished, well-developed Head: Normocephalic, atraumatic Eyes: Pupils equal and reactive, extraocular muscles intact Neck, supple, no lymphadenopathy Heart: Regular rate and rhythm Respiratory: No distress, clear bilaterally Abdomen: Soft, nontender, nondistended, no peritoneal signs dressing removed. Skin is clean, dry. There is some erythema at her old incision site. There is no active drainage. There is no dehiscence. Back: Nontender Extremities: Nontender, no edema, no cords Skin: Normal color no rash Neuro: Alert and oriented, no focal or lateralizing deficits Test Results: [] Emergency Department Course and Treatment: The patient presents with signs and symptoms of kidney stone. She has had multiple recent CTs. IV was established. Her urine did not show infection. There was scant blood. The patient was given multiple doses of analgesics and we are able to achieve comfort. Her nausea was controlled. She has prescription analgesics at home. She will continue aggressive hydration. The patient will follow up with urology. She is discharged home. Treatment Plan: [] Disposition: Discharge Impression: 1. Kidney stone This note was generated with Snapwiz dictation software. It may contain incorrect words, spelling, and punctuation that were not noted in review of the chart prior to signing ED Disposition - Plan for ED Patient: Chief Complaint: Flank Pain Instructions: ED Stone Renal W Colic Prescriptions: Ondansetron [Zofran Odt] 4 mg PO Q8H PRN PRN #10 tab PRN Reason: Nausea Referrals: Susana Diaz III, MD [Primary Care Provider] - What to do if you have Problems For any increased pain, shortness of breath, bleeding, nausea or vomiting, chest pain, or any unexpected problems, contact your Primary Care Provider. Call [facility] ([phone]) or report to the closest Emergency Room. Call 911 if necessary. 07/06/17 1910 <Electronically signed by Adonis Morillo MD> Date Adonis Morillo MD Cosigner Signature (If Indicated): Date CC: Susana Diaz III, MD URINALYSIS, COMPLETE Collected: 07/06/2017 Status: F Source: [place] 5:04 PM [facility] REPOSITORY Order Comment: Order Date: 07/06/17 How was Urine Obtained? CLEAN CATCH TYPE CODE TESTS RESULT OUT OF RANGE REFERENCE UNITS LAB L400.3000 Yellow COLOR Normal Yellow LAB L400.3050 Clear Normal CLARITY Sl. Cloudy LAB L400.3200 Normal mg/dl Normal GLUCOSE, UR Normal LAB L400.3300 Negative mg/dL Normal BILIRUBIN URINE Negative LAB L400.3400 Negative mg/dl Normal KETONE UR Negative LAB L400.3465 1.002-1.030 Normal SP.GR. DIPSTX 1.020 LAB L400.3550 5.0 - 8.0 pH UR Normal 6.0 LAB L400.3600 Negative mg/dl High PROT 15 DIPSTX LAB L400.3700 Normal mg/dl High 1 UROBILI LAB L400.3750 Negative Normal NITRITE UR Negative LAB L400.3780 Negative /ul High 25 OCCULT BLOOD-UR LAB L400.3800 Negative /ul High LEUK 25 ESTERASE LAB L400.4050 0-5 /hpf WBC Normal 0-5 SEEN LAB L400.4100 0-5 /hpf Normal RBC-UA 0-5 SEEN LAB L400.4150 5-10 /hpf SQUAM Normal EPI 5-10 SEEN LAB L400.4300 None Seen /hpf 1+ Normal BACTERIA LAB L400.4350 <or=2+ /hpf 1+ Normal MUCUS, URINE Performed By: #### L400.0001 #### [facility] [address] [place], [place], [id number] ,SERUM,HCG QUALI. Collected: Status: F Source: [place] 07/06/2017 5:00 PM [facility] REPOSITORY TYPE CODE TESTS RESULT OUT OF REFERENCE UNITS RANGE LAB L700.7000 0-9 Nonpreg Negative Normal HCGSQUAL NEGATIVE LAB L700.6700 =>Qualitative mIU/mL Normal HCG Qual < 1 triggr Performed By: #### L700.6800 #### [facility] [address] [place], [address] HEMOGLOBIN A1C Collected: 07/06/2017 Status: F Source: [place] 9:57 AM [facility] REPOSITORY TYPE CODE TESTS RESULT OUT OF REFERENCE UNITS RANGE LAB HGBA1C 4.3-5.6 % Hemoglobin A1c 4.8 LAB HBA0 mg/dL Est. Average Glucose 91 Result Comment: eAG: (Estimated average glucose) is a calculated value from HgbA1c and is ocean import representative of the average blood glucose level in the last 2-3 month period. Performed By: #### HBA1C #### [facility] [address] [place], [place] [address] CBC Collected: 07/06/2017 Status: F Source: [place] 9:56 AM [facility] REPOSITORY TYPE CODE TESTS RESULT OUT OF REFERENCE UNITS RANGE LAB WBC 3.70-11.00 k/uL WBC 6.57 LAB RBC 3.90-5.20 m/uL RBC 3.91 LAB HGB 11.5-15.5 g/dL Low Hemoglobin 10.6 LAB HCT 36.0-46.0 % Low Hematocrit 34.0 LAB MCV 80.0-100.0 fL MCV 87.0 LAB MCH 26.0-34.0 pG MCH 27.1 LAB MCHC 30.5-36.0 g/dL MCHC 31.2 LAB RDWCV 11.5-15.0 % RDW-CV High 16.8 LAB PLTCT 150-400 k/uL Platelet High Count 439 LAB MPV 9.0-12.7 fL MPV 10.7 LAB ABSNUC <0.01 k/uL Absolute nRBC <0.01 Performed By: #### CBC, ALB, TP, PREALB #### [facility] [address] [place], [place] [address] ALBUMIN Collected: 07/06/2017 Status: F Source: [place] 9:56 AM [facility] REPOSITORY TYPE CODE TESTS RESULT OUT OF REFERENCE UNITS RANGE LAB ALB 3.9-4.9 g/dL Albumin 4.1 Performed By: #### CBC, ALB, TP, PREALB #### [place] [address] [place], [place] [address] PROTEIN, TOTAL Collected: 07/06/2017 Status: F Source: [place] 9:56 AM [facility] REPOSITORY TYPE CODE TESTS RESULT OUT OF RANGE REFERENCE UNITS LAB TP 6.3-8.0 g/dL Protein, 6.8 Total Performed By: #### CBC, ALB, TP, PREALB #### [facility] [address] [place], [place] [address] PREALBUMIN Collected: 07/06/2017 Status: F Source: [place] 9:56 AM [facility] REPOSITORY TYPE CODE TESTS RESULT OUT OF REFERENCE UNITS RANGE LAB PREALB 17-36 mg/dL Prealbumin 30 Performed By: #### CBC, ALB, TP, PREALB #### [facility] [address] [place], [place] [address] PROGRESS Observed: 07/06/2017 Status: COMPLETED Source: [place] 9:45 AM [facility] REPOSITORY HNO ID: [id number] Author: Katie To LPN Service: (none) Author Type: (none) Type: Progress Notes Filed: 07/06/2017 9:46 AM Note Text: Patient presents for B-12 injection. Denies any problems at this time. Patient instructed on any SE of medication, verbalized understanding and agreed to proceed with treatment. Tolerated injection well. Katie To LPN CNNURSE Observed: 07/06/2017 Status: COMPLETED Source: [place] 9:45 AM [facility] Nurse Visit (FAMPWS) TRAMAINE PENG ([id number]) 1985 F Date Time Provider Department 07/06/17 9:[address] NURSE FAMPWS During your visit today, we recorded the following information about you: Katie To LPN 07/06/2017 9:46 AM Signed Patient presents for B-12 injection. Denies any problems at this time. Patient instructed on any SE of medication, verbalized understanding and agreed to proceed with treatment. Tolerated injection well. Katie To LPN Referring Provider: SUSANA DIAZ III [[id number]] Allergies As of Date: 07/06/2017 Noted Allergy Reaction TORADOL (KETOROLAC TROMETHAMINE) 05/30/2015 8 - GI Upset GABAPENTIN 02/27/2016 14 - Other: See Comments Comments: Cognitive intolerance METHOCARB 04/01/2016 14 - Other: See Comments TRAMADOL 10/17/2013 8 - GI Upset Date Reviewed: 06/18/2017 Reviewed by: Nicol ([facility]) LINH Espino - Fully Assessed Reason for Visit: B-12 Injection [247] Primary Visit Diagnosis:Vitamin B 12 deficiency [E53.8] Prescriptions as of 07/06/2017 Sig: HYDROCODONE 5 MG-ACETAMINOPHE* Take 1-2 tablets by mouth sonya* LISINOPRIL 40 MG TABLET Take 1 tablet by mouth twice * OXYCODONE 10 MG TABLET 10mg by mouth prior to the dr* TAMSULOSIN 0.4 MG CAPSULE 0.4 mg by mouth once per day * CYANOCOBALAMIN (VIT B-12) 1,0* Inject 1 mL intramuscularly o* CEPHALEXIN 500 MG CAPSULE Take 500 mg by mouth twice da* FERROUS SULFATE 325 MG (65 MG* Take 1 tablet by mouth twice * Patient taking differently: Take 150 mg by mouth twice da* KETOCONAZOLE 2 % TOPICAL CREAM Apply 1 application to affect* AMITRIPTYLINE 50 MG TABLET Take 1 tablet by mouth daily * CHOLECALCIFEROL (VITAMIN D3) * one capsule once/wk ACETAMINOPHEN 500 MG TABLET Take 2 tablets by mouth every* AMLODIPINE 10 MG TABLET Take 1 tablet by mouth once d* POTASSIUM CITRATE ER 10 MEQ (* Take 1 tablet by mouth twice * NEXPLANON SDRM by SUBDERMAL route. Medication notes this encounter CYANOCOBALAMIN (VIT B-12) 1,000 MCG/ML INJECTION SOLUTION >> Katie To LPN 07/06/2017 9:46 AM >> KATIE TO LPN WedJul 06, 2017 9:46 AM The patient is here for an injection of Vitamin B12 (Cyanocobalamin). Dose: 1000mcg/1ml Amount wasted: none. 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] INVALID FOR*07/04/2015 BENIGN HYPERTENSION [I10] INVALID FOR* Intractable migraine without aura [G43.019] INVALID FOR* Cervical disc disorder with radiculopathy [M50.*INVALID FOR*09/07/2016 Lumbar disc disorder with myelopathy [M51.06] INVALID FOR*09/07/2016 Calcium oxalate renal stones [N20.0] INVALID FOR* Non-alcoholic fatty liver disease [K76.0] Vitamin D deficiency [E55.9] INVALID FOR*09/07/2016 Hyperparathyroidism due to vitamin D deficiency*INVALID FOR*09/07/2016 Gallbladder sludge [K82.8] INVALID FOR*11/09/2013 Physical deconditioning [R53.81] INVALID FOR*09/07/2016 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 Chronic postoperative pain [G89.28] INVALID FOR* More... Bleeding [R58] INVALID FOR*10/14/2016 More... Cellulitis of abdominal wall [L03.311] INVALID FOR*12/23/2016 Vitamin D deficiency [E55.9] INVALID FOR* Hyperuricuria [R82.99] INVALID FOR* Hyperuricosuria [R82.99] INVALID FOR* Hyperoxaluria (HCC) [E72.53] INVALID FOR* Renal calculi [N20.0] INVALID FOR* Iron deficiency anemia secondary to inadequate *INVALID FOR* Moderate protein-calorie malnutrition (HCC) [E4*INVALID FOR* Renal colic [N23] INVALID FOR* Vitamin B 12 deficiency [E53.8] INVALID FOR* Encounter Status:Closed by KATIE OT LPN on 07/06/17 CNPTOUTRGERARD Observed: 06/22/2017 Status: COMPLETED Source: [place] 12:00 AM [facility] REPOSITORY Patient Outreach (FAMPST) TRAMAINE PENG ([id number]) 1985 F Date Time Provider Department 06/22/17 SUSANA DIAZ III FAMPST During your visit today, we recorded the following information about you: Allergies As of Date: 06/22/2017 Noted Allergy Reaction TORADOL (KETOROLAC TROMETHAMINE) 05/30/2015 8 - GI Upset GABAPENTIN 02/27/2016 14 - Other: See Comments Comments: Cognitive intolerance METHOCARB 04/01/2016 14 - Other: See Comments TRAMADOL 10/17/2013 8 - GI Upset Date Reviewed: 06/18/2017 Reviewed by: Nicol ([facility]) LINH Espino - Fully Assessed Visit Diagnosis:Medication management [Z79.899] Order(s):HGB A1C [IIDCL8I] Order #: [id number] FUTURE Prescriptions as of 06/22/2017 Sig: X HYDROCODONE 5 MG-ACETAMINOPHE* Take 1-2 tablets by mouth sonya* LISINOPRIL 40 MG TABLET Take 1 tablet by mouth twice * OXYCODONE 10 MG TABLET 10mg by mouth prior to the dr* X TAMSULOSIN 0.4 MG CAPSULE 0.4 mg by mouth once per day * CYANOCOBALAMIN (VIT B-12) 1,0* Inject 1 mL intramuscularly o* X CEPHALEXIN 500 MG CAPSULE Take 500 mg by mouth twice da* FERROUS SULFATE 325 MG (65 MG* Take 1 tablet by mouth twice * Patient taking differently: Take 150 mg by mouth twice da* KETOCONAZOLE 2 % TOPICAL CREAM Apply 1 application to affect* CHOLECALCIFEROL (VITAMIN D3) * one capsule once/wk X AMITRIPTYLINE 50 MG TABLET Take 1 tablet by mouth daily * ACETAMINOPHEN 500 MG TABLET Take 2 tablets by mouth every* AMLODIPINE 10 MG TABLET Take 1 tablet by mouth once d* X POTASSIUM CITRATE ER 10 MEQ (* Take 1 tablet by mouth twice * NEXPLANON SDRM by SUBDERMAL route. 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] INVALID FOR*07/04/2015 BENIGN HYPERTENSION [I10] INVALID FOR* Intractable migraine without aura [G43.019] INVALID FOR* Cervical disc disorder with radiculopathy [M50.*INVALID FOR*09/07/2016 Lumbar disc disorder with myelopathy [M51.06] INVALID FOR*09/07/2016 Calcium oxalate renal stones [N20.0] INVALID FOR* Non-alcoholic fatty liver disease [K76.0] Vitamin D deficiency [E55.9] INVALID FOR*09/07/2016 Hyperparathyroidism due to vitamin D deficiency*INVALID FOR*09/07/2016 Gallbladder sludge [K82.8] INVALID FOR*11/09/2013 Physical deconditioning [R53.81] INVALID FOR*09/07/2016 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 Chronic postoperative pain [G89.28] INVALID FOR* More... Bleeding [R58] INVALID FOR*10/14/2016 More... Cellulitis of abdominal wall [L03.311] INVALID FOR*12/23/2016 Vitamin D deficiency [E55.9] INVALID FOR* Hyperuricuria [R82.998] INVALID FOR* Hyperuricosuria [R82.993] INVALID FOR* Hyperoxaluria (HCC) [R82.992] INVALID FOR* Renal calculi [N20.0] INVALID FOR* Iron deficiency anemia secondary to inadequate *INVALID FOR* Moderate protein-calorie malnutrition (HCC) [E4*INVALID FOR* Renal colic [N23] INVALID FOR* Vitamin B 12 deficiency [E53.8] INVALID FOR* Encounter Status:Closed by PRABHU PRODUSER on 12/31/17 PROGRESS Observed: 06/18/2017 Status: COMPLETED Source: [place] 3:53 PM [facility] [place] REPOSITORY HNO ID: [id number] Author: Susana Diaz III Service: (none) Author Type: Physician Type: Progress Notes Filed: 06/18/2017 6:03 PM Note Text: SUBJECTIVE: This is a 32 year old female that is here today for 1. medication review. A lot of medication changes since recent surgeries. She is unsure what meds to take. She has a information technology assistant who wants her off of hydrochlorothiazide because of the renal stones and does not want her on Trandate. 2. s/p surgery on suprapubic area 05/04; she has foam with wound vac in vulva. The foam needs to be changed every Mon-wed-Fri , duration of 1.5 hrs with excruciating pain. The wound has slowly healed but she is expected require wound VAC for the next 2 months. 3. History of multiple renal stones for the past several years. Chart review shows that she did not have a history of kidney stones prior to starting hydrochlorothiazide. We discussed that we will control her blood pressure without the use of thiazides. She has been using Flomax 0.8 mg every day but does not see that it is helping to reduce the frequency of her renal colic. We did discuss reducing the Flomax 0.4 mg once per day as needed for renal colic. She is not to take it every day. 4. Hypertension. Her blood pressure has been quite variable in the office though her home blood pressure readings have been at goal. She is tolerating her medications well. PAST MEDICAL HISTORY Diagnosis Date - BENIGN HYPERTENSION 11/16/2006 - Calcium oxalate renal stones 2009 - Calculus of ureter 09/30/2007 s/p URS and stent with hydro. - Cervical disc disorder with radiculopathy 04/15/2010 - Chronic postoperative pain 02/27/201603/2015, gastric bypass surgery. 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 Chronic post op (gastric bypass) pain - Lumbar disc disorder with myelopathy 06/04/2010 - Moderate protein-calorie malnutrition (HCC) 05/04/2017 - Morbid obesity with BMI of 50.0-59.9, adult ([facility]) 09/12/2014 - Non-alcoholic fatty liver disease - OBESITY NOS 06/01/2005 - Obstructive sleep apnea Approval received from [facility] 02/01/2015 for CPAP @ 10 approval - 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 cyanocobalamin (VITAMIN B-12) 1,000 mcg/mL soln Inject 1 mL intramuscularly once every month. 1 DOSE MONTHLY cephALEXin (KEFLEX) 500 mg capsule Take 500 mg by mouth twice daily. HYDROcodone-acetaminophen (NORCO) 5-325 mg per tablet Take 1-2 tablets by mouth every 6 hours as needed for Pain for up to 30 days.Earliest Fill Date: 05/24/17 tamsulosin ER (FLOMAX) 0.4 mg cp24 take 2 capsules by mouth once daily if needed ferrous sulfate 325 mg (65 mg iron) tablet Take 1 tablet by mouth twice daily with meals. (Patient taking differently: Take 150 mg by mouth twice daily with meals. ) labetalol (TRANDATE) 100 mg tablet Take 1 tablet by mouth twice daily. ketoconazole (NIZORAL) 2 % cream Apply 1 application to affected area twice daily. amitriptyline (ELAVIL) 50 mg tablet Take 1 tablet by mouth daily at bedtime. cholecalciferol, Vitamin D3, (VITAMIN D3) 50,000 unit cap capsule one capsule once/wk acetaminophen (TYLENOL) 500 mg tablet Take 2 tablets by mouth every 6 hours. amLODIPine (NORVASC) 10 mg tablet Take 1 tablet by mouth once daily. potassium citrate ER (UROCIT-K 10) 10 mEq (1,080 mg) TbER Take 1 tablet by mouth twice daily. ETONOGESTREL (NEXPLANON SDRM) by SUBDERMAL route. No current facility-administered medications on file prior to visit. FAMILY HISTORY Problem Relation Age of Onset - Brain tumor [OTHER] Mother Benign - Hypertension Father - Diabetes Father - Diverticulitis [OTHER] Father - COPD Paternal Grandfather - Colon Cancer Paternal Grandfather - Diabetes Maternal Grandfather - Kidney stone [OTHER] Maternal Uncle - ESRD [OTHER] Other Maternal cousin. Agenesic/atrophic kidney Social History Substance Use Topics - Smoking status: Never Smoker - Smokeless tobacco: Never Used - Alcohol use Yes Comment: rarely-2 drinks per month BP 159/97 Pulse 92 Resp 16 Wt 89.4 kg (197 lb) LMP 06/18/2017 BMI 31.8 kg/m2 . OBJECTIVE: APPEARANCE Well appearing, alert, in no acute distress, well-hydrated, well nourished., Obese ABDOMEN wound VAC operational with catheter in the area just superior to the vulva. The labium majora are huge and filled with foam. This was the area of the infection/abscess that has been drained ASSESSMENT: Recurrent, multiple renal stones with frequent renal colic requiring prescribed opiates for adequate pain control Ongoing postoperative pain following surgery to drain abscess in the vulvar area Hypertension?not quite at goal PLAN: oxycodone 10mg prior to dressing changes every Wed-Wed-Wed same other medications--continue hydrocodone 5/325 mg 1 or 2 tablets every 6 hours as needed for renal colic stay off of HCTZ return to office 6 wks--we'll follow pain management and blood pressure 30 minute visit with greater than 50% discussing her pain and management plan. Also discussed her kidney stones and treatment with blood pressure medication. Reviewed medication list Susana Diaz III MD CNOV Observed: 06/18/2017 Status: COMPLETED Source: [facility] 3:40 PM [facility] REPOSITORY Office Visit (FAMPWS) TRAMAINE PENG ([id number]) 1985 F Date Time Provider Department 06/18/17 3:40 PM SUSANA DIAZ III During your visit today, we recorded the following information about you: Pulse Respiration Blood pressure Weight 92/minute 16/minute 159/97 89.4 kg Last Period 06/18/17 Susana Diaz III MD 06/18/2017 6:03 PM Signed SUBJECTIVE: This is a 32 year old female that is here today for 1. medication review. A lot of medication changes since recent surgeries. She is unsure what meds to take. She has a information technology assistant who wants her off of hydrochlorothiazide because of the renal stones and does not want her on Trandate. 2. s/p surgery on suprapubic area 05/04; she has foam with wound vac in vulva. The foam needs to be changed every Wed-wed-Wed , duration of 1.5 hrs with excruciating pain. The wound has slowly healed but she is expected require wound VAC for the next 2 months. 3. History of multiple renal stones for the past several years. Chart review shows that she did not have a history of kidney stones prior to starting hydrochlorothiazide. We discussed that we will control her blood pressure without the use of thiazides. She has been using Flomax 0.8 mg every day but does not see that it is helping to reduce the frequency of her renal colic. We did discuss reducing the Flomax 0.4 mg once per day as needed for renal colic. She is not to take it every day. 4. Hypertension. Her blood pressure has been quite variable in the office though her home blood pressure readings have been at goal. She is tolerating her medications well. PAST MEDICAL HISTORY Diagnosis Date - BENIGN HYPERTENSION 11/16/2006 - Calcium oxalate renal stones 2009 - Calculus of ureter 09/30/2007 s/p URS and stent with hydro. - Cervical disc disorder with radiculopathy 04/15/2010 - Chronic postoperative pain 02/27/201603/2015, gastric bypass surgery. 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 02/27/2016 Chronic post op (gastric bypass) pain - Lumbar disc disorder with myelopathy 06/04/2010 - Moderate protein-calorie malnutrition (HCC) 05/04/2017 - Morbid obesity with BMI of 50.0-59.9, adult ([facility]) 09/12/2014 - Non-alcoholic fatty liver disease - OBESITY NOS 06/01/2005 - Obstructive sleep apnea Approval received from [facility] 02/01/2015 for CPAP @ 10 approval - 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 cyanocobalamin (VITAMIN B-12) 1,000 mcg/mL soln Inject 1 mL intramuscularly once every month. 1 DOSE MONTHLY cephALEXin (KEFLEX) 500 mg capsule Take 500 mg by mouth twice daily. HYDROcodone-acetaminophen (NORCO) 5-325 mg per tablet Take 1-2 tablets by mouth every 6 hours as needed for Pain for up to 30 days.Earliest Fill Date: 05/24/17 tamsulosin ER (FLOMAX) 0.4 mg cp24 take 2 capsules by mouth once daily if needed ferrous sulfate 325 mg (65 mg iron) tablet Take 1 tablet by mouth twice daily with meals. (Patient taking differently: Take 150 mg by mouth twice daily with meals. ) labetalol (TRANDATE) 100 mg tablet Take 1 tablet by mouth twice daily. ketoconazole (NIZORAL) 2 % cream Apply 1 application to affected area twice daily. amitriptyline (ELAVIL) 50 mg tablet Take 1 tablet by mouth daily at bedtime. cholecalciferol, Vitamin D3, (VITAMIN D3) 50,000 unit cap capsule one capsule once/wk acetaminophen (TYLENOL) 500 mg tablet Take 2 tablets by mouth every 6 hours. amLODIPine (NORVASC) 10 mg tablet Take 1 tablet by mouth once daily. potassium citrate ER (UROCIT-K 10) 10 mEq (1,080 mg) TbER Take 1 tablet by mouth twice daily. ETONOGESTREL (NEXPLANON SDRM) by SUBDERMAL route. No current facility-administered medications on file prior to visit. FAMILY HISTORY Problem Relation Age of Onset - Brain tumor [OTHER] Mother Benign - Hypertension Father - Diabetes Father - Diverticulitis [OTHER] Father - COPD Paternal Grandfather - Colon Cancer Paternal Grandfather - Diabetes Maternal Grandfather - Kidney stone [OTHER] Maternal Uncle - ESRD [OTHER] Other Maternal cousin. Agenesic/atrophic kidney Social History Substance Use Topics - Smoking status: Never Smoker - Smokeless tobacco: Never Used - Alcohol use Yes Comment: rarely-2 drinks per month BP 159/97 Pulse 92 Resp 16 Wt 89.4 kg (197 lb) LMP 06/18/2017 BMI 31.8 kg/m2 . OBJECTIVE: APPEARANCE Well appearing, alert, in no acute distress, well- hydrated, well nourished., Obese ABDOMEN wound VAC operational with catheter in the area just superior to the vulva. The labium majora are huge and filled with foam. This was the area of the infection/abscess that has been drained ASSESSMENT: Recurrent, multiple renal stones with frequent renal colic requiring prescribed opiates for adequate pain control Ongoing postoperative pain following surgery to drain abscess in the vulvar area Hypertension?not quite at goal PLAN: oxycodone 10mg prior to dressing changes every Wed-Wed-Wed same other medications--continue hydrocodone 5/325 mg 1 or 2 tablets every 6 hours as needed for renal colic stay off of HCTZ return to office 6 wks--we'll follow pain management and blood pressure 30 minute visit with greater than 50% discussing her pain and management plan. Also discussed her kidney stones and treatment with blood pressure medication. Reviewed medication list JANE Barton MD, III MD 06/18/2017 4:25 PM Signed PLAN: oxycodone 10mg prior to dressing changes every Wed-Wed-Wed same other medications stay off of HCTZ return to office 6 wks Susana Diaz III MD Referring Provider: SELF [[id number]] Allergies As of Date: 06/18/2017 Noted Allergy Reaction TORADOL (KETOROLAC TROMETHAMINE) 05/30/2015 8 - GI Upset GABAPENTIN 02/27/2016 14 - Other: See Comments Comments: Cognitive intolerance METHOCARB 04/01/2016 14 - Other: See Comments TRAMADOL 10/17/2013 8 - GI Upset Date Reviewed: 06/18/2017 Reviewed by: Nicol ([facility]) LINH Espino - Fully Assessed Reason for Visit: Medication review [Other] Primary Visit Diagnosis:Essential hypertension, benign [I10] Other Visit Diagnoses: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 [Z79.891] Chronic postoperative pain [G89.28] Calcium oxalate renal stones [N20.0] Moderate protein-calorie malnutrition (HCC) [E44.0] Hypokalemia [E87.6] Order(s):lisinopril (ZESTRIL) 40 mg tabletTake 1 tablet by mouth twice daily.Disp: Rfl: oxyCODONE IR (ROXICODONE) 10 mg [id number] by mouth prior to the dressing change three to four times/weekDisp: 16 tabletRfl: 0 tamsulosin ER (FLOMAX) 0.4 mg cp240.4 mg by mouth once per day only as needed for renal colicDisp: 60 capsuleRfl: 3 ALBUMIN BLD [SQALB] Order #: [id number] FUTURE PREALBUMIN BLD [SQPREALB] Order #: [id number] FUTURE BASIC METABOLIC PNL [SQBMP] Order #: [id number] FUTURE Prescriptions as of 06/18/2017 Sig: LISINOPRIL 40 MG TABLET Take 1 tablet by mouth twice * OXYCODONE 10 MG TABLET 10mg by mouth prior to the dr* TAMSULOSIN 0.4 MG CAPSULE 0.4 mg by mouth once per day * CYANOCOBALAMIN (VIT B-12) 1,0* Inject 1 mL intramuscularly o* CEPHALEXIN 500 MG CAPSULE Take 500 mg by mouth twice da* HYDROCODONE 5 MG-ACETAMINOPHE* Take 1-2 tablets by mouth sonya* FERROUS SULFATE 325 MG (65 MG* Take 1 tablet by mouth twice * Patient taking differently: Take 150 mg by mouth twice da* KETOCONAZOLE 2 % TOPICAL CREAM Apply 1 application to affect* AMITRIPTYLINE 50 MG TABLET Take 1 tablet by mouth daily * CHOLECALCIFEROL (VITAMIN D3) * one capsule once/wk ACETAMINOPHEN 500 MG TABLET Take 2 tablets by mouth every* AMLODIPINE 10 MG TABLET Take 1 tablet by mouth once d* POTASSIUM CITRATE ER 10 MEQ (* Take 1 tablet by mouth twice * NEXPLANON SDRM by SUBDERMAL route. 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] INVALID FOR*07/04/2015 BENIGN HYPERTENSION [I10] INVALID FOR* Intractable migraine without aura [G43.019] INVALID FOR* Cervical disc disorder with radiculopathy [M50.*INVALID FOR*09/07/2016 Lumbar disc disorder with myelopathy [M51.06] INVALID FOR*09/07/2016 Calcium oxalate renal stones [N20.0] INVALID FOR* Non-alcoholic fatty liver disease [K76.0] Vitamin D deficiency [E55.9] INVALID FOR*09/07/2016 Hyperparathyroidism due to vitamin D deficiency*INVALID FOR*09/07/2016 Gallbladder sludge [K82.8] INVALID FOR*11/09/2013 Physical deconditioning [R53.81] INVALID FOR*09/07/2016 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 Chronic postoperative pain [G89.28] INVALID FOR* More... Bleeding [R58] INVALID FOR*10/14/2016 More... Cellulitis of abdominal wall [L03.311] INVALID FOR*12/23/2016 Vitamin D deficiency [E55.9] INVALID FOR* Hyperuricuria [R82.99] INVALID FOR* Hyperuricosuria [R82.99] INVALID FOR* Hyperoxaluria (HCC) [E72.53] INVALID FOR* Renal calculi [N20.0] INVALID FOR* Iron deficiency anemia secondary to inadequate *INVALID FOR* Moderate protein-calorie malnutrition (HCC) [E4*INVALID FOR* Renal colic [N23] INVALID FOR* Vitamin B 12 deficiency [E53.8] INVALID FOR* Other instructions from your clinician: PLAN: oxycodone 10mg prior to dressing changes every Mon-Wed-Wed same other medications stay off of HCTZ return to office 6 wks Susana Diaz III MD Prescriptions ordered this encounter Disp Refills Start End LISINOPRIL 40 MG TABLET 06/18/2017 Class: Med Update Route: ORAL Sig: Take 1 tablet by mouth twice daily. OXYCODONE 10 MG TABLET 16 t* 0 06/18/2017 07/19/2017 Class: Print RX Simg by mouth prior to the dressing change three to four times/week TAMSULOSIN 0.4 MG CAPSULE 60 c* 3 06/18/2017 Class: Med Update Si.4 mg by mouth once per day only as needed for renal colic Medications Discontinued During This Encounter diazePAM (VALIUM) 5 mg tablet 06/18/2017 Class: Historical Med Route: ORAL Sig: Take 5 mg by mouth every 6 hours as needed. Disc: Discontinued by Patient NIFEdipine ER (PROCARDIA XL) 30 mg 2* 30 t* 3 05/31/2017 06/18/2017 Route: ORAL Sig: Take 1 tablet by mouth once daily. Disc: Course of therapy completed labetalol (TRANDATE) 100 mg tablet 60 t* 11 04/02/2017 06/18/2017 Route: ORAL Sig: Take 1 tablet by mouth twice daily. Disc: Discontinued by another Health Care Provider tamsulosin ER (FLOMAX) 0.4 mg cp24 60 c* 3 05/10/2017 06/18/2017 Sig: take 2 capsules by mouth once daily if needed Disc: Reason for discontinue is not on file. Encounter Status:Closed by SUSANA DIAZ III, MD on 06/18/17 PLASTIC SURGERY Observed: 06/15/2017 Status: F Source: [place] VISIT REPORT 2:59 PM [facility] REPOSITORY [facility] [address] [place] [address] OFFICE VISIT Date of Service: 05/21/17 MR#: [id number] Acct: [id number] Name: TRAMAINE PENG Rep #: [id number] : 1985 Provider: Gigi Mendieta MD Age/Sex: 32/F Location: [facility] Status: Signed Intake Vital Signs05/21/17 Height 5 ft 6 in 05/21/17 Weight: 192 lb 2 oz Intake Visit Reasons: postop surgery 05/03/17 and 04/20/17 Signal Processing Engineer Required: No Accompanied by: None Is patient in pain?: Yes (PULLING PAIN IN THE LOWER ABDOMINAL AREA) Pain scale (1-10): 8 Allergies methocarbamol Allergy (Verified 05/30/17 14:57) Chest tightness gabapentin Adverse Reaction (Verified 05/30/17 14:57) MADE ME WALK SIDEWAYS ketorolac tromethamine [From Toradol] Adverse Reaction (Verified 05/30/17 14:57) Upset Stomach NSAIDS (Non-Steroidal Anti-Inflamma Adverse Reaction (Verified 05/30/17 14:57) gastric bipass not supposed to take tramadol Adverse Reaction (Verified 05/30/17 14:57) Upset Stomach Medications Amitriptyline HCl [Elavil] 50 mg PO QHS PRN 04/30/17 [History Confirmed 06/01/17] Amlodipine Besylate [Norvasc] 10 mg PO DAILY 04/30/17 [History Confirmed 06/01/17] Ergocalciferol [Vitamin D] 50,000 unit PO TUTH 04/30/17 [History Confirmed 06/01/17] Etonogestrel [Nexplanon] 68 mg SQ UD 04/30/17 [History Confirmed 06/01/17] Labetalol [Trandate (Beta Emily)] 100 mg PO BID 04/30/17 [History Confirmed 06/01/17] Potassium Chloride [K-Dur] 10 meq PO BID 04/30/17 [History Confirmed 06/01/17] Tamsulosin HCl [Flomax] 0.8 mg PO DAILY 04/30/17 [History Confirmed 06/01/17] Iron Polysaccharide Complex [Ferrex 150] 150 mg PO DAILYCM cap 05/10/17 [Rx Confirmed 06/01/17] Hydrocodone/Acetaminophen [[place] 10-325 Tablet] 1 ea PO 4X/DAY PRN PRN 7 Days #30 tab 05/17/17 [Rx Confirmed 06/01/17] Cephalexin [Keflex] 500 mg PO Q6 #40 cap 05/30/17 [Rx Confirmed 06/01/17] Lisinopril [Zestril] 40 mg PO BID 05/30/17 [History Confirmed 06/01/17] Ondansetron [Zofran Odt] 4 mg PO Q8H PRN PRN #20 tab 06/01/17 [Rx] hydromorphone 2 mg tablet 2 mg PO 4X/DAY PRN #20 tab 06/15/17 [Rx Confirmed 06/15/17] Is last menstrual period known: Yes Post menopausal: No Patient : No PFSH Medical History Back problem (Acute) Bladder infection (Acute) Excessive weight loss (Acute) Gallstones (Acute) Intertrigo (Acute) Kidney stones (Acute) Soft tissue mass (Acute) Stomach ulcer (Acute) Vitamin deficiency (Acute) High blood pressure (Chronic) Surgical History History of cholecystectomy (Acute) History of gastric bypass (Acute) History of incision and drainage (Acute) History of incision and drainage (Acute) History of nephrolithotomy with removal of calculi (Acute) History of thyroidectomy (Acute) Status post panniculectomy (Acute 09/17/16) Family History Mother Anxiety Bleeding disorder Depression Hypertension High cholesterol Cancer Father Diabetes Hypertension Grandfather Colon cancer Diabetes Heart disease Social History Smoking Status: Never smoker second hand exposure: Yes alcohol intake: current substance use type: does not use what type of physical activity do you participate in: other seatbelt use: always do you feel safe at home: Yes additional social history: SUN EXPOSURE: OCCASIONALLY HPI postop surgery 05/03/17 and 04/20/17: Details: Postop visit from her recent surgery on 05/03/17 where she underwent surgical preparation lower anterior abdominal wall and pubic area with incision and drainage and excisional debridement infected seroma/hematoma (250 cm2). She was discharged from the hospital on 05/10/17. She developed acute kidney injury while hospitalized that slowly resolved. Her Creatinine at discharge was 3.85. A few days later on 05/13/17 she went to the ED and her Creatinine was down to 1.99. Postop visit from her surgery on 04/20/17 where she underwent excision 8 cm painful soft tissue mass pubic area with 20 cm complex closure. She was discharged from the hospital on 04/21/17. Comes in today with some persistent wound pain especially at the time of the VAC dressing changes. She also complains of intermittent nausea. She thinks she may be getting dehydrated. On exam, her wound is clean with good granulation tissue present. No odor. Mild swelling present. For the increased pain with the VAC, recommend a VAC holiday and start Silver dressing changes daily. [facility] on [facility]17. Told the patient that if her nausea persists, then she should go to the ED for evaluation and IV hydration and possible admission if her labs are significantly abnormal. Since she was recently hospitalized, she wasn't able to start back to work initially part-time. 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 Also there will be a lifting restriction (20 lbs). She will minimize standing and is able to ambulate. She will sit and elevate whenever she can when standing for prolonged periods of time. PAST MEDICAL HISTORY Back Problems Bladder/Urinary Tract Inf Gallstones High BP Kidney Stones Ulcers - stomach Vitamin Deficiency Abdominal wall skin crease intertrigo Excessive weight loss after gastric bypass procedure painful soft tissue mass pubic area acute kidney injury infected seroma/hematoma lower anterior abdominal wall and pubic area lymphedema of genitalia PAST SURGICAL HISTORY 2 Kidney stones removed gallbladder removed Gastric bypass - 2015 Laparoscopic Og-en-Y procedure at [facility] Abdominal panniculectomy - 09/17/16 Incision and drainage postop hematoma abdominal wall - 09/17/16 Incision and drainage infected postop abdominal wall seroma - 10/20/16 Left thyroid removed Excision 8 cm painful soft tissue mass pubic area with 20 cm complex closure - 04/20/17 Surgical preparation lower anterior abdominal wall and pubic area with incision and drainage and excisional debridement infected seroma/hematoma (250 cm2) - 05/03/17 FAMILY HISTORY Mother (biol.) - Has Family History of Anxiety Mother (biol.) - Has Family History of Bleeding Disease Mother (biol.) - Has Family History of Depression Mother (biol.) - Has Family History of Hypertension Mother (biol.) - Has Family History of High Cholesterol Mother (biol.) - Has Family History of Other Cancer Father (biol.) - Has Family History of Diabetes Father (biol.) - Has Family History of Hypertension PGF - Has Family History of Colon Cancer PGF - Has Family History of Diabetes PGF - Has Family History of Heart Disease SOCIAL HISTORY Alcohol Use - no Patient has never smoked. Assessment AND Plan Problems 1. Excessive body weight loss R63.4 2. Localized adiposity E65 3. ERIKA (acute kidney injury) N17.9 4. Open wound anterior abdominal wall S31.109A 5. Postoperative hematoma of subcutaneous tissue following dermatologic procedure L76.31 6. Infection following a procedure, initial encounter T81.4XXA 7. Hematoma, vulva N90.89 8. Open wound of vulva with complication S31.40XA 9. Lymphedema of genitalia I89.0 10. Intertrigo L30.4 Coding Level of Care Code Global Post Op Diagnoses Excessive body weight loss R63.4 Localized adiposity E65 ERIKA (acute kidney injury) N17.9 Open wound anterior abdominal wall S31.109A Postoperative hematoma of subcutaneous tissue following dermatologic procedure L76.31 Infection following a procedure, initial encounter T81.4XXA Hematoma, vulva N90.89 Open wound of vulva with complication S31.40XA Lymphedema of genitalia I89.0 Intertrigo L30.4 06/15/17 1459 <Electronically signed by Giig Mendieta MD> Date Gigi Mendieta MD Cosigner Signature: Date (if applicable) CC: PLASTIC SURGERY Observed: 06/15/2017 Status: F Source: [place] VISIT REPORT 12:29 PM [facility] REPOSITORY [facility] [address] [place] [address] OFFICE VISIT Date of Service: 04/28/17 MR#: [id number] Acct: [id number] Name: TRAMAINE PENG Rep #: [id number] : 1985 Provider: Gigi Mendieta MD Age/Sex: 32/F Location: [facility] Status: Signed Intake Vital Signs04/28/17 Body Mass Index (BMI) 32.5 04/28/17 Height 5 ft 6 in 04/28/17 Weight: 201 lb 6 oz Intake Visit Reasons: postop surgery 04/20/17 Signal Processing Engineer Required: No Accompanied by: None Is patient in pain?: Yes (lower abdominal wall and groin area - sharp and painfully numb) Pain scale (1-10): 6 Allergies methocarbamol Allergy (Verified 05/30/17 14:57) Chest tightness gabapentin Adverse Reaction (Verified 03/11/18 14:57) MADE ME WALK SIDEWAYS ketorolac tromethamine [From Toradol] Adverse Reaction (Verified 05/30/17 14:57) Upset Stomach NSAIDS (Non-Steroidal Anti-Inflamma Adverse Reaction (Verified 05/30/17 14:57) gastric bipass not supposed to take tramadol Adverse Reaction (Verified 05/30/17 14:57) Upset Stomach Medications Amitriptyline HCl [Elavil] 50 mg PO QHS PRN 04/30/17 [History Confirmed 06/01/17] Amlodipine Besylate [Norvasc] 10 mg PO DAILY 04/30/17 [History Confirmed 06/01/17] Ergocalciferol [Vitamin D] 50,000 unit PO TUTH 04/30/17 [History Confirmed 06/01/17] Etonogestrel [Nexplanon] 68 mg SQ UD 04/30/17 [History Confirmed 06/01/17] Labetalol [Trandate (Beta Emily)] 100 mg PO BID 04/30/17 [History Confirmed 06/01/17] Potassium Chloride [K-Dur] 10 meq PO BID 04/30/17 [History Confirmed 06/01/17] Tamsulosin HCl [Flomax] 0.8 mg PO DAILY 04/30/17 [History Confirmed 06/01/17] Iron Polysaccharide Complex [Ferrex 150] 150 mg PO DAILYCM cap 05/10/17 [Rx Confirmed 06/01/17] Hydrocodone/Acetaminophen [[place] 10-325 Tablet] 1 ea PO 4X/DAY PRN PRN 7 Days #30 tab 05/17/17 [Rx Confirmed 06/01/17] Cephalexin [Keflex] 500 mg PO Q6 #40 cap 05/30/17 [Rx Confirmed 06/01/17] Lisinopril [Zestril] 40 mg PO BID 05/30/17 [History Confirmed 06/01/17] Ondansetron [Zofran Odt] 4 mg PO Q8H PRN PRN #20 tab 06/01/17 [Rx] hydromorphone 2 mg tablet 2 mg PO 4X/DAY PRN #20 tab 06/15/17 [Rx Confirmed 06/15/17] Is last menstrual period known: Yes Post menopausal: No Patient : No PFSH Medical History Back problem (Acute) Bladder infection (Acute) Excessive weight loss (Acute) Gallstones (Acute) Intertrigo (Acute) Kidney stones (Acute) Soft tissue mass (Acute) Stomach ulcer (Acute) Vitamin deficiency (Acute) High blood pressure (Chronic) Surgical History History of cholecystectomy (Acute) History of gastric bypass (Acute) History of incision and drainage (Acute) History of incision and drainage (Acute) History of nephrolithotomy with removal of calculi (Acute) History of thyroidectomy (Acute) Status post panniculectomy (Acute 09/17/16) Family History Mother Anxiety Bleeding disorder Depression Hypertension High cholesterol Cancer Father Diabetes Hypertension Grandfather Colon cancer Diabetes Heart disease Social History Smoking Status: Never smoker second hand exposure: Yes alcohol intake: current substance use type: does not use what type of physical activity do you participate in: other seatbelt use: always do you feel safe at home: Yes additional social history: SUN EXPOSURE: OCCASIONALLY HPI postop surgery 04/20/17: Details: Postop visit from her recent surgery on 04/20/17 where she underwent excision 8 cm painful soft tissue mass pubic area with 20 cm complex closure. She was discharged from the hospital on 04/21/17. Comes in today with some persistent incisional pain. She states the Percocet has not been that effective for the pain. She was recently in the ED on 04/24/17 because she was concerned about being tired and having worsening anemia. Her WBC was 5.0. Her Hgb had improved to 10.0 from 8.7 after her surgery. She is on Fe supplementation and will followup with her PCP regarding her chronic anemia. She also complains of some pubic numbness which should resolve with time as it is probably related to her postop swelling. On exam, her incision is dry and intact. Mild swelling present. Drainage has been less than 30 ml per day. I removed one drain today without difficulty. The other drain will be removed next week. Wrote a script for Dilaudid for pain (20 tabs) since she stated her Percocet was not that effective. Followup next week. After her other drain is removed, she wants to go back to work initially part-time. 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 Also there will be a lifting restriction (20 lbs). She will minimize standing and is able to ambulate. She will sit and elevate whenever she can when standing for prolonged periods of time. PAST MEDICAL HISTORY Back Problems Bladder/Urinary Tract Inf Gallstones High BP Kidney Stones Ulcers - stomach Vitamin Deficiency Abdominal wall skin crease intertrigo Excessive weight loss after gastric bypass procedure painful soft tissue mass pubic area PAST SURGICAL HISTORY 2 Kidney stones removed gallbladder removed Gastric bypass - 2015 Laparoscopic Og-en-Y procedure at [facility] Abdominal panniculectomy - 09/17/16 Incision and drainage postop hematoma abdominal wall - 09/17/16 Incision and drainage infected postop abdominal wall seroma - 10/20/16 Left thyroid removed Excision 8 cm painful soft tissue mass pubic area with 20 cm complex closure - 04/20/17 FAMILY HISTORY Mother (biol.) - Has Family History of Anxiety Mother (biol.) - Has Family History of Bleeding Disease Mother (biol.) - Has Family History of Depression Mother (biol.) - Has Family History of Hypertension Mother (biol.) - Has Family History of High Cholesterol Mother (biol.) - Has Family History of Other Cancer Father (biol.) - Has Family History of Diabetes Father (biol.) - Has Family History of Hypertension PGF - Has Family History of Colon Cancer PGF - Has Family History of Diabetes PGF - Has Family History of Heart Disease SOCIAL HISTORY Alcohol Use - no Patient has never smoked. Assessment AND Plan Problems 1. Excessive body weight loss R63.4 2. Localized adiposity E65 3. Intertrigo L30.4 Medications New: Coding Level of Care Code Global Post Op Diagnoses Excessive body weight loss R63.4 Localized adiposity E65 Intertrigo L30.4 06/15/17 1229 <Electronically signed by Gigi Mendieta MD> Date Gigi Mendieta MD Cosigner Signature: Date (if applicable) CC: OPERATIVE REPORT Observed: 06/07/2017 Status: F Source: [place] 12:15 AM [facility] REPOSITORY [facility] Medical Records Department [address] [place] [address] Operative Report 05/03/172045 MR#: [id number] Acct: [id number] Name: TRAMAINE PENG Rep #: [id number] : 1985 32 From: Gigi Mendieta MD PCP: Susana Diaz III, MD Status: DIS IN Y Location: [facility]3 [id number] ADDENDUM by Gigi Mendieta MD on 06/07/17 at 0015 Code Visit Surgery Charges CPT - 64275 ICD-10 - T81.4xxA, L76.31, R63.4, E65 43600 T81.4xxA, L76.31, R63.4, E65 05225 T81.4xxA, L76.31, R63.4, E65 50699 T81.4xxA, N90.89, R63.4, I89.0 07371 T81.4xxA, N90.89, R63.4, I89.0 06/07/17 0015 <Electronically signed by Gigi Mendieta MD> Date Gigi Mendieta MD cc: Maikel Mireles MD; Salvatore Reyes DO; Susana Diaz III, MD; Gigi Mendieta MD; William Renee MD * Signed Report of Operation Date of Procedure: 05/03/17 Pre-Operative Diagnosis: Infected seroma lower anterior abdominal wall and pubic area. Post-Operative Diagnosis: Infected seroma/hematoma lower anterior abdominal wall and pubic area. Surgery/Procedure Performed:: Surgical preparation lower anterior abdominal wall and pubic area with incision and drainage and excisional debridement infected seroma/hematoma (250 cm2). Description of Surgical Findings:: 32-year-old woman initially presented with a painful soft tissue mass on her pubic area. This mass first developed after abdominal surgery done earlier in the Summer. Back in 2016 she had a gastric bypass procedure including clinic. It was a laparoscopic Og-en-Y procedure. At that time she weighed about 380 pounds and today she weighs about 200 pounds. In August 2016 she underwent an abdominal panniculectomy. After surgery she developed some bleeding and was taken back to surgery the same day where she underwent incision and drainage of postop hematoma. She did okay postoperatively initially for about a month. At the end of September she noticed increased pain and redness and swelling in the right side of her abdominal wall near the incision. She went back to surgery on October 20, 2016 where she underwent incision and drainage of infected abdominal seroma. She was treated with antibiotics and wound care until healed. Throughout these procedures she developed increased scarring in the lower anterior abdominal wall area and this exacerbated her painful symptomatology in her pubic area where a large soft tissue mass was located. On 04/20/17, the patient underwent excision 8 cm painful soft tissue mass pubic area with 20 cm complex closure. Postop she developed increasing pain and redness on the right side of her pubic area. She then had increased temp at home and came to the ED. Her WBC was 14.9. She was admitted to the hospital and placed on IV antibiotics. CT showed a seroma which is expected and she still had a drain in place. There was no bleeding in the Fidelia drain. However she drifted down to 7.4. She was ahead in her I/O's by 6000 ml. Most of the decrease was probably IV dilution. She was given 2 units of PRBC and was taken back to the OR because of persistent pain and swelling. Also to make sure there is not a large hematoma present. The wound will be left open and a VAC will be applied. She understands the wound will be left open. She voiced understanding and wishes to proceed. The patient was informed of the risks and complications of the procedure including alternatives to surgery. These were discussed with the patient personally. The patient voices understanding and wishes to proceed. Size of defect lower anterior abdominal wall and pubic area - 25 x 10 x 4 cm. testing and regulating chief: None Type of Anesthesia:: General Specimen's removed: 1. Infected seroma/hematoma tissue lower anterior abdominal wall and pubic area to Pathology and Microbiology. 2. Infected seroma/hematoma tissue lower anterior abdominal wall and pubic area swab culture for MRSA by DNA PCR. Drains: None. Estimated Blood Loss (mL): 50 ml. Description of Procedure: Patient was taken to the OR in supine position and was placed under general anesthesia. The remaining drain was removed before prepping the patient. The patient was then prepped and draped in the usual fashion. SCD's were placed for DVT prophylaxis. Perioperative antibiotics were given intravenously. The previous incision in the lower anterior abdominal wall and pubic area was infiltrated with xylocaine with epinephrine. After waiting 5 minutes for the anesthetic to take effect, an incision and drainage was performed through the previous scar. There was a residual seroma that was milky as well as a small hematoma that was starting to look creamy as well, clinically indicative of an infection. About 50 ml of seroma and about 50 ml of hematoma clot. A curette was used to further debride the wound as well as to debride the beginning of capsular formation. Some fat necrosis was present that was sharply excised as an excisional debridement. Some of the tissue was sent to Microbiology for culture. The rest of the tissue was sent to Pathology for analysis to rule out carcinoma. The size of the wound in the lower anterior abdominal wall and pubic area after incision and drainage and excisional debridement was 25 x 10 x 4 cm or 250 cm2. The wound was copiously irrigated with saline. Hemostasis was obtained with electrocautery. The wound was then packed with Mepitel nonadherent dressing followed by Kerlix gauze with Betadine. This was followed by a dry Kerlix gauze and ABD pads for a compression dressing. She tolerated the procedure well and was sent to PACU in satisfactory condition. She will be sent back upstairs for further postop care. The VAC will be applied tomorrow. After discharge, she will followup at [facility]. Grafts/Implants Used: None. - Complications None. - Admit VTE Documentation VTE Present on Admission: No VTE Mechan Device Prophylaxis: SCD's VTE Pharm Prophylaxis ordered?: No 06/02/17 0848 <Electronically signed by Gigi Mendieta MD> Date Gigi Mendieta MD CC: Maikel Mireles MD; Salvatore Reyes DO; Susana Diaz III, MD; Gigi Mendieta MD; William Renee MD Signed PROGRESS Observed: 06/05/2017 Status: COMPLETED Source: [place] 2:25 PM [facility] REPOSITORY HNO ID: [id number] Author: Susana Diaz III Service: (none) Author Type: Physician Type: Progress Notes Filed: 06/05/2017 2:25 PM Note Text: Tramaine, Slowly but surely the vitamin D level is improving. Continue with the vitamin D 50,000 units weekly dose. The vitamin B-12 level is still a little low but I would continue monthly injections of vitamin B-12 1000 units per month. Continue present dose of iron supplementation and multiple vitamin with folic acid. Susana Diaz III, MD, FAAFP PROGRESS Observed: 06/04/2017 Status: COMPLETED Source: [place] 12:34 PM [facility] REPOSITORY HNO ID: [id number] Author: Katie To LPN Service: (none) Author Type: (none) Type: Progress Notes Filed: 06/04/2017 12:37 PM Note Text: Patient presents for B-12 injection. Denies any problems at this time. Patient instructed on any SE of medication, verbalized understanding and agreed to proceed with treatment. Brought own medication. Tolerated injection well. Katie To LPN CNNURSE Observed: 06/04/2017 Status: COMPLETED Source: [place] 12:30 PM [facility] Nurse Visit (FAMPWS) TRAMAINE PENG ([id number]) 1985 F Date Time Provider Department 06/04/17 12:[address] NURSE FAMPWS During your visit today, we recorded the following information about you: Katie To LPN 06/04/2017 12:37 PM Signed Patient presents for B-12 injection. Denies any problems at this time. Patient instructed on any SE of medication, verbalized understanding and agreed to proceed with treatment. Brought own medication. Tolerated injection well. Katie To LPN Referring Provider: SUSANA DIAZ III [[id number]] Allergies As of Date: 06/04/2017 Noted Allergy Reaction TORADOL (KETOROLAC TROMETHAMINE) 05/30/2015 8 - GI Upset GABAPENTIN 02/27/2016 14 - Other: See Comments Comments: Cognitive intolerance METHOCARB 04/01/2016 14 - Other: See Comments TRAMADOL 10/17/2013 8 - GI Upset Date Reviewed: 05/18/2017 Reviewed by: Nicol ([facility]) LINH Espino - Fully Assessed Reason for Visit: B-12 Injection [247] Primary Visit Diagnosis:Vitamin B 12 deficiency [E53.8] Prescriptions as of 06/04/2017 Sig: NIFEDIPINE ER 30 MG TABLET,EX* Take 1 tablet by mouth once d* CYANOCOBALAMIN (VIT B-12) 1,0* Inject 1 mL intramuscularly o* CEPHALEXIN 500 MG CAPSULE Take 500 mg by mouth twice da* DIAZEPAM 5 MG TABLET Take 5 mg by mouth every 6 ho* HYDROCODONE 5 MG-ACETAMINOPHE* Take 1-2 tablets by mouth sonya* TAMSULOSIN 0.4 MG CAPSULE take 2 capsules by mouth once* FERROUS SULFATE 325 MG (65 MG* Take 1 tablet by mouth twice * Patient taking differently: Take 150 mg by mouth twice da* LABETALOL 100 MG TABLET Take 1 tablet by mouth twice * KETOCONAZOLE 2 % TOPICAL CREAM Apply 1 application to affect* AMITRIPTYLINE 50 MG TABLET Take 1 tablet by mouth daily * CHOLECALCIFEROL (VITAMIN D3) * one capsule once/wk ACETAMINOPHEN 500 MG TABLET Take 2 tablets by mouth every* AMLODIPINE 10 MG TABLET Take 1 tablet by mouth once d* POTASSIUM CITRATE ER 10 MEQ (* Take 1 tablet by mouth twice * NEXPLANON SDRM by SUBDERMAL route. Medication notes this encounter CYANOCOBALAMIN (VIT B-12) 1,000 MCG/ML INJECTION SOLUTION >> Katie To LPN 06/04/2017 12:37 PM >> KATIE TO LPN WedJun 04, 2017 12:37 PM The patient is here for an injection of Vitamin B12 (Cyanocobalamin). Dose: 1000mcg/1ml Amount wasted: none. 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] INVALID FOR*07/04/2015 BENIGN HYPERTENSION [I10] INVALID FOR* Intractable migraine without aura [G43.019] INVALID FOR* Cervical disc disorder with radiculopathy [M50.*INVALID FOR*09/07/2016 Lumbar disc disorder with myelopathy [M51.06] INVALID FOR*09/07/2016 Calcium oxalate renal stones [N20.0] INVALID FOR* Non-alcoholic fatty liver disease [K76.0] Vitamin D deficiency [E55.9] INVALID FOR*09/07/2016 Hyperparathyroidism due to vitamin D deficiency*INVALID FOR*09/07/2016 Gallbladder sludge [K82.8] INVALID FOR*11/09/2013 Physical deconditioning [R53.81] INVALID FOR*09/07/2016 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 Chronic postoperative pain [G89.28] INVALID FOR* More... Bleeding [R58] INVALID FOR*10/14/2016 More... Cellulitis of abdominal wall [L03.311] INVALID FOR*12/23/2016 Vitamin D deficiency [E55.9] INVALID FOR* Hyperuricuria [R82.99] INVALID FOR* Hyperuricosuria [R82.99] INVALID FOR* Hyperoxaluria (HCC) [E72.53] INVALID FOR* Renal calculi [N20.0] INVALID FOR* Iron deficiency anemia secondary to inadequate *INVALID FOR* Moderate protein-calorie malnutrition (HCC) [E4*INVALID FOR* Renal colic [N23] INVALID FOR* Vitamin B 12 deficiency [E53.8] INVALID FOR* Encounter Status:Closed by KAITE TO LPN on 06/04/17 EMERGENCY DEPARTMENT Observed: 06/02/2017 Status: F Source: [place] SUMMARY 12:15 AM [facility] REPOSITORY [facility] Medical Records Department [address] [facility] [place] [address] Emergency Department Summary 06/01/17 2030 MR#: [id number] Acct: [id number] Name: TRAMAINE PENG Rep #: [id number] : 1985 32 From: Estefania Reyna MD PCP: Susana Diaz III, MD Status: DEP ER - ER Visit Summary Date of Service: 06/01/17 Chief Complaint: Surgical site infection and nausea and vomiting History of Present Illness: The patient is a 32 F reports a chronic abdominal wound. She is scheduled to have a wound VAC placed tomorrow and see Dr. Mendieta next week. Patient states she has been getting green drainage from the site. She was started on Keflex yesterday for the same. Is also complaining of nausea and vomiting and states she is unable to keep anything down. She states that she felt lightheaded when she stood up. Physical Examination: Vital signs are unremarkable. Patient sitting upright in bed no acute distress. Head neck examination is normal. Heart is regular rate and rhythm. Lung sounds are clear. Abdomen is soft with a large surgical incision on lower abdomen. Wound has clean edges. I do not see any purulent drainage at this time. Test Results: I did review the patient's recent CT scan. CBC and chemistry studies tonight are normal. Emergency Department Course and Treatment: Patient was given morphine, Phenergan, and IV fluids. She did poorly have one episode of vomiting after eating some crackers here. She is given Zofran. I spoke with Dr. Mendieta, the patient's surgeon. Patient is to be given Zofran for home and continue the Keflex. She is to have a wound VAC placed tomorrow as planned and he will see her in the office on Wednesday. Treatment Plan: [] Disposition: Discharge Impression: 1. Reported nausea and vomiting 2. Chronic abdominal wound This note was generated with My eStore Appation software. It may contain incorrect words, spelling, and punctuation that were not noted in review of the chart prior to signing ED Disposition - Plan for ED Patient: Disposition: Home or Assisted Living Chief Complaint: Wound Instructions: ED Nausea Vomiting Prescriptions: Ondansetron [Zofran Odt] 4 mg PO Q8H PRN PRN #20 tablet PRN Reason: Nausea Referrals: Susana Diaz III, MD [Primary Care Provider] - Gigi Mendieta MD [STAFF PHYSICIAN] - Keep Raul appointment What to do if you have Problems For any increased pain, shortness of breath, bleeding, nausea or vomiting, chest pain, or any unexpected problems, contact your Primary Care Provider. Call [facility] ([phone]) or report to the closest Emergency Room. Call 911 if necessary. 06/02/17 0015 <Electronically signed by Estefania Reyna MD> Date Estefania Reyna MD Cosigner Signature (If Indicated): Date CC: Susana Diaz III, MD DISCHARGE INSTRUCTION Observed: 06/01/2017 Status: F Source: [place] 8:32 PM [facility] REPOSITORY [facility] Medical Records Department [address] [place] [address] Discharge Instruction 06/01/172030 MR#: [id number] Acct: [id number] Name: DANISHTRAMAINE Rep #: [id number] : 1985 32 From: Estefania Reyna MD PCP: Susana Diaz III, MD Status: REG ER ED Disposition - Plan for ED Patient: Disposition: Home or Assisted Living Chief Complaint: Wound Instructions: ED Nausea Vomiting Prescriptions: Ondansetron [Zofran Odt] 4 mg PO Q8H PRN PRN #20 tablet PRN Reason: Nausea Referrals: Susana Diaz III, MD [Primary Care Provider] - Gigi Mendieta MD [STAFF PHYSICIAN] - Keep Raul appointment What to do if you have Problems For any increased pain, shortness of breath, bleeding, nausea or vomiting, chest pain, or any unexpected problems, contact your Primary Care Provider. Call [facility] ([phone]) or report to the closest Emergency Room. Call 911 if necessary. 06/01/172031 <Electronically signed by Estefania Reyna MD> Date Estefania Reyna MD Cosigner Signature (If Indicated): Date CC: Susana Diaz III, MD CBC W/DIFF, AUTOMATED Collected: 06/01/2017 Status: F Source: [place] 6:05 PM [facility] REPOSITORY TYPE CODE TESTS RESULT OUT OF RANGE REFERENCE UNITS LAB L100.1000 4.4-11.0 K/mm3 Normal WBC 7.6 LAB L100.1200 4.2-5.4 M/mm3 Low RBC 3.74 LAB L100.1300 12.0-15.0 g/dl Low HGB 10.2 LAB L100.1400 37-47 % Low HCT 31.2 LAB L100.1500 81-99 fL Normal MCV 83.4 LAB L100.1600 27.0-32.0 pg Normal MCH 27.3 LAB L100.1700 32-36 g/gl Normal MCHC 32.7 LAB L100.1810 11.6-14.6 % High RDW CV 16.7 LAB L100.1820 35.1-43.9 fl High RDW SD 49.8 LAB L100.1900 150-450 K/mm3 Normal PLT 436 LAB L100.2000 6.2-12.0 fl Normal MPV 10.4 LAB L100.2100 47-70 % Normal NEUT% 68.7 LAB L100.2200 19-41 % Normal LY% 20.2 LAB L100.2300 0-10 % Normal MONO% 9.0 LAB L100.2400 0-5 % Normal EO% 1.3 LAB L100.2500 0-1 % Normal BASO% 0.5 LAB L100.2550 0.0-0.9 % Normal IM GRAN % 0.300 Result Comment: IG% - Immature Granulocytes (promyelocytes, myelocytes and metamyelocytes) > 1% indicates that a LEFT SHIFT is Present. LAB L100.2620 2.0-7.7 X10 3/uL Normal Absolute Neut 5.2 LAB L100.2720 0.83-4.51 X10 3/ul Normal Absolute Lymph 1.53 Performed By: #### L100.0100 #### [facility] [address] [place], [address] BASIC METABOLIC Collected: 06/01/2017 Status: F Source: [place] PROFILE ([facility]) 6:05 PM [facility] REPOSITORY TYPE CODE TESTS RESULT OUT OF RANGE REFERENCE UNITS LAB L501.0100 74-106 mg/dL Normal GLU 86 Result Comment: Please note revised GLUCOSE reference range effective 2017. LAB L501.1000 7-18 mg/dL Normal BUN 10 LAB L501.1100 0.55-1.02 mg/dL Normal CREAT,SERUM 0.69 Result Comment: The validity of the calculated GFR AND GFRAA in patients over 70 years has not been determined. Clinical correlation is essential. LAB L501.1110 >60 mL/min Normal EST GFR 105 Result Comment: Non- GFR Calc LAB L501.1115 >60 mL/min Normal EST GFR - AA 128 Result Comment: GFR Calc LAB L501.1255 ml/min Normal Estimated CRCL 110.59 LAB L501.1300 10-20 RATIO BUN/CRE Normal 14.5 LAB L501.2200 8.5-10 mg/dL .1 CA Normal 8.8 LAB L501.5300 136-14 mmol/L 5 NA Normal 140 LAB L501.5600 3.5-5. mmol/L 1 K Normal 3.6 LAB L501.5900 98-107 mmol/L CL Normal 107 LAB L501.6100 21.0-3 mmol/L 2.0 CO2 Normal 26.0 LAB L501.6200 5-15 GAP Normal 7 Performed By: #### L500.2500 #### [facility] [address] [place], [address] EMERGENCY DEPARTMENT Observed: 05/30/2017 Status: F Source: [place] SUMMARY 7:50 PM [facility] REPOSITORY [facility] Medical Records Department [address] [facility] [address] [place] [address] Emergency Department Summary 05/30/17 1527 MR#: [id number] Acct: [id number] Name: TRAMAINE PENG Rep #: [id number] : 1985 32 From: Brian Barkley PCP: Susana Diaz III, MD Status: REG ER - ER Visit Summary Date of Service: 05/30/17 Chief Complaint: Right flank pain, wound check History of Present Illness: The patient is a 32 F right flank pain radiates to the side since yesterday. History of kidney stone since 2007. States calcium oxalate stones. Followed by [facility] urology, ever states physician has retired since. Has had total of 5 positions all retired, currently does not have a urologist. States has had microscopic hematuria in the past with her stones. No dysuria. Did take her low-dose [place] which has not helped her pain since this morning. States her most part [place] would help her symptoms. Couple episodes where she needed additional pain medications. She is on daily Flomax. Patient also wants wound check of her lower abdomen. Has had complications since her gastric bypass in 2016. She is followed by Dr. cinthia Soni. Wound VAC was removed 2 weeks ago. Does daily dressings. Always had minimal drainage, however yesterday increasing drainage is malodorous. Subjective fevers. Next appointment in [address] Mendieta. She finished Keflex a week ago. Has not had MRSA in her wound. She states previous antibiotics for which unclear on the name has caused acute kidney injury. Denies any nausea or vomiting. States had 5 episodes of loose stools since 3 AM. Abdominal discomfort around the wound region. Denies any diabetes or any tobacco history. Physical Examination: General: Alert and oriented 3, no acute distress HEENT: Normocephalic, atraumatic. Moist mucosa membranes Neck: supple, nontender. Cardiovascular: Regular rate and rhythm, no murmurs Respiratory: Normal breath sounds, symmetric, no distress Abdomen: Soft, wound lower abdominal suprapubic under panniculus good granulations. Wound samples of approximately 8 cm x 6 cm, dressing soaked, malodorous. No surrounding erythema. No indurations. LExtremities: Nontender, no edema, pulses intact 4 Neuro: no focal neurological deficits. Test Results: WBC 8.6. Creatinine 0.56. Urine negative for infection or blood. Wound culture sent and is pending. CT scan abdomen pelvis, nephrolithiasis without urolithiasis. Possible mild nonspecific ileus, no wound abscess. Emergency Department Course and Treatment: Patient presents with multiple complaints. Initially with her increasing drainage site from her healing wounds. She was given Ancef. I did obtain wound cultures prior. Her CBC with a normal white count. As for her flank pain, initially treated symptomatically with 2 doses of morphine. Reevaluation states still had pain that returned only transiently improved. Normal renal function normal urine. States she passes multiple stones constantly. Discussed with recurring pain symptoms for imaging for further evaluation. She agrees. There is nephrolithiasis without urolithiasis. There is no wound abscess in her abdomen. Noted by radiology mild nonspecific ileus. She has no current vomiting. With fentanyl dosing she had improvement symptoms. She does have [place] at home to take. She be started on Keflex for increasing wound drainage. She will call Dr. Mendieta in the morning for an earlier follow-up. All questions were answered. Treatment Plan: [] Disposition: Discharge Impression: 1. Right flank pain 2. Wound drainage This note was generated with Snapwiz dictation software. It may contain incorrect words, spelling, and punctuation that were not noted in review of the chart prior to signing ED Disposition - Plan for ED Patient: Disposition: Home or Assisted Living Chief Complaint: Wound Diagnosis: Right flank pain, Increased wound drainage Instructions: ED Flank Pain Uncertain Cause, Wound Care Prescriptions: Cephalexin [Keflex] 500 mg PO Q6 #40 capsule Referrals: Susana Diaz III, MD [Primary Care Provider] - Gigi Mendieta MD [STAFF PHYSICIAN] - 2 Days for wound check What to do if you have Problems For any increased pain, shortness of breath, bleeding, nausea or vomiting, chest pain, or any unexpected problems, contact your Primary Care Provider. Call [facility] ([phone]) or report to the closest Emergency Room. Call 911 if necessary. 05/30/17 1950 <Electronically signed by Brian Barkley> Date Brian Barkley Cosigner Signature (If Indicated): Date CC: Susana Diaz III, MD ABDOMEN/PELVIS WITHOUT Observed: 05/30/2017 Status: F Source: [place] CONT 6:26 PM [facility] REPOSITORY [facility] Imaging Services [address] [place] [id number] Abdomen/Pelvis without Cont MR#: [id number] Acct: [id number] Name: TRAMAINE PENG Rep #: [id number] : 1985 F 32 From: Cm Ivey MD PCP: Susana Diaz III, MD Status: REG ER Study: Abdomen/Pelvis without Cont Date of Exam: 05/30/17 Exam# [id number] Ordering Dr: Brian Clark DO STUDY: CT ABDOMEN AND PELVIS WITHOUT CONTRAST REASON FOR EXAM: Female, 32 years old. Right flank pain recent removal of wound VAC RADIATION DOSAGE (If Supplied By Facility): CTDIvol = ( 15.66 ) mGy, DLP = ( 805.92 ) mGycm TECHNIQUE: Transaxial images were obtained from the dome of the diaphragm to the symphysis pubis without oral contrast, and without intravenous contrast. Sagittal and coronal images were reconstructed. Individualized dose optimization techniques were used for this CT. COMPARISON: April 30, 2017 FINDINGS: The visualized lung bases are unremarkable. The visualized portions of the heart are within normal limits. Postsurgical changes status post gastric bypass. Normal liver. Status post cholecystectomy. Normal spleen. Normal pancreas. Normal bilateral adrenal glands. There are 2 tiny nonobstructing calculi in the right kidney one in the left. No evidence for hydronephrosis or ureteral calculus. No renal mass given limited unenhanced nature of the study. Normal visualized stomach. Mild nonspecific ileus. No evidence for small bowel obstruction or pneumoperitoneum Normal colon. No evidence for acute appendicitis.. Normal abdominal aorta. Normal inferior vena cava. Normal retroperitoneum. Incompletely distended thick-walled bladder likely of no significance. There are phlegmonous changes within the subcutaneous fat anterior to the pubic symphysis with air bubbles.. There is no definitive evidence for well-defined abscess. Lumbar spine demonstrates moderate spondylosis CT/Abdomen/Pelvis without Cont IMPRESSION: Mild nonspecific ileus. Bilateral nephrolithiasis without evidence for hydronephrosis or ureteral calculus. Postop changes status post gastric bypass and cholecystectomy Other findings as above Electronically Signed: Cm Ivey MD at 19:18 EDT , Service support , CC: Susana Diaz III, MD; Brian Clark Manager Equity: Signed URINALYSIS, COMPLETE Collected: 05/30/2017 Status: F Source: [place] 5:40 PM [facility] REPOSITORY Order Comment: Order Date: 05/30/17 How was Urine Obtained? CLEAN CATCH TYPE CODE TESTS RESULT OUT OF RANGE REFERENCE UNITS LAB L400.3000 Yellow COLOR Normal Yellow LAB L400.3050 Clear Normal CLARITY Clear LAB L400.3200 Normal mg/dl Normal GLUCOSE, UR Normal LAB L400.3300 Negative mg/dL Normal BILIRUBIN URINE Negative LAB L400.3400 Negative mg/dl High 50 KETONE UR LAB L400.3465 1.002-1.030 Normal SP.GR. DIPSTX 1.020 LAB L400.3550 5.0 - 8.0 pH UR Normal 6.0 LAB L400.3600 Negative mg/dl High PROT 15 DIPSTX LAB L400.3700 Normal mg/dl Normal UROBILI Normal LAB L400.3750 Negative Normal NITRITE UR Negative LAB L400.3780 Negative /ul Normal OCCULT BLOOD-UR Negative LAB L400.3800 Negative /ul LEUK Normal ESTERASE Negative LAB L400.4050 0-5 /hpf WBC 0 Normal SEEN LAB L400.4100 0-5 /hpf Normal RBC-UA 0-5 SEEN LAB L400.4150 5-10 /hpf SQUAM 0 Normal EPI SEEN LAB L400.4300 None Seen /hpf 0 Normal BACTERIA SEEN LAB L400.4350 <or=2+ /hpf 1+ Normal MUCUS, URINE Performed By: #### L400.0001 #### [facility] [address] [place], [address] Observed: 05/30/2017 Status: F Source: [place] CULTURE, WOUND 4:00 PM [facility] REPOSITORY Order Date: 05/30/17 Gram Stain Gram Stain 3+ White Blood Cells 1+ Gram positive cocci Wound Culture ORGANISM 1: Staphylococcus aureus Amount Growth 2+ ORGANISM 2: Morganella morganii sp danielleonii Amount Growth Rare Staphylococcus aureus: REACTION Benzylpenicillin NF >=0.5 R Cefoxitin *NF - Clindamycin $$ <=0.25 S Inducable Clindamycin Resistan - Erythromycin $ <=0.25 S Gentamicin $ <=0.5 S Levofloxacin $ 0.25 S Linezolid $$$$ 2 S Moxifloxicin *NF <=0.25 S Oxacillin NF <=0.25 S Tigecycline $$$$ <=0.12 S Rifampin $$ <=0.5 S Tetracycline NF <=1 S Trimethoprim/Sulfametho $ <=10 S Vancomycin $ 1 S (NF) indicates non-formulary drug at [facility]. Approval by Infectious Disease Specialist required before non-formulary drugs may be ordered and/or dispensed. * CLSI guidelines does not recommend testing of cephalosporins. This interpretation is deduced from Beta-lactam/penicillin results. Morganella morganii sp danielleonii: REACTION Amoxacillin/Clavulanic Acid $ >=32 R Ampicillin $ >=32 R Ampicillin/Sulbactam $ 16 I Cefazolin $ >=64 R Cefepime $ <=1 S Ceftriaxone $ <=1 S Ciprofloxacin $ <=0.25 S Ertapenim $$$ <=0.5 S Gentamicin $ <=1 S Levofloxacin $ <=0.12 S Piperacillin/Tazobactam $$ <=4 S Tobramycin $ <=1 S Trimethoprim/Sulfametho $ <=20 S (NF) indicates non-formulary drug at [facility]. Approval by Infectious Disease Specialist required before non-formulary drugs may be ordered and/or dispensed. Performed By: #### M100.1400 #### [facility] [address] [place], [address] CBC W/DIFF, AUTOMATED Collected: 05/30/2017 Status: F Source: [place] 3:10 PM [facility] REPOSITORY TYPE CODE TESTS RESULT OUT OF RANGE REFERENCE UNITS LAB L100.1000 4.4-11.0 K/mm3 Normal WBC 8.6 LAB L100.1200 4.2-5.4 M/mm3 Low RBC 3.96 LAB L100.1300 12.0-15.0 g/dl Low HGB 10.7 LAB L100.1400 37-47 % Low HCT 32.8 LAB L100.1500 81-99 fL Normal MCV 82.8 LAB L100.1600 27.0-32.0 pg Normal MCH 27.0 LAB L100.1700 32-36 g/gl Normal MCHC 32.6 LAB L100.1810 11.6-14.6 % High RDW CV 16.6 LAB L100.1820 35.1-43.9 fl High RDW SD 50.4 LAB L100.1900 150-450 K/mm3 High PLT 494 LAB L100.2000 6.2-12.0 fl Normal MPV 10.2 LAB L100.2100 47-70 % High NEUT% 72.7 LAB L100.2200 19-41 % Low LY% 18.6 LAB L100.2300 0-10 % Normal MONO% 7.1 LAB L100.2400 0-5 % Normal EO% 1.1 LAB L100.2500 0-1 % Normal BASO% 0.4 LAB L100.2550 0.0-0.9 % Normal IM GRAN % 0.100 Result Comment: IG% - Immature Granulocytes (promyelocytes, myelocytes and metamyelocytes) > 1% indicates that a LEFT SHIFT is Present. LAB L100.2620 2.0-7.7 X10 3/uL Normal Absolute Neut 6.2 LAB L100.2720 0.83-4.51 X10 3/ul Normal Absolute Lymph 1.59 Performed By: #### L100.0100 #### [facility] [address] [place], [place], [id number] BASIC METABOLIC Collected: 05/30/2017 Status: F Source: [place] PROFILE ([facility]) 3:10 PM [facility] REPOSITORY TYPE CODE TESTS RESULT OUT OF RANGE REFERENCE UNITS LAB L501.0100 74-106 mg/dL Normal GLU 84 Result Comment: Please note revised GLUCOSE reference range effective 2017. LAB L501.1000 7-18 mg/dL Normal BUN 8 LAB L501.1100 0.55-1.02 mg/dL Normal CREAT,SERUM 0.56 Result Comment: The validity of the calculated GFR AND GFRAA in patients over 70 years has not been determined. Clinical correlation is essential. LAB L501.1110 >60 mL/min Normal EST GFR 133 Result Comment: Non- GFR Calc LAB L501.1115 >60 mL/min Normal EST GFR - AA 161 Result Comment: GFR Calc LAB L501.1255 ml/min Normal Estimated CRCL 136.26 LAB L501.1300 10-20 RATIO BUN/CRE Normal 14.2 LAB L501.2200 8.5-10 mg/dL .1 CA Normal 9.1 LAB L501.5300 136-14 mmol/L 5 NA Normal 140 LAB L501.5600 3.5-5. mmol/L 1 K Normal 3.8 LAB L501.5900 98-107 mmol/L CL Normal 106 LAB L501.6100 21.0-3 mmol/L 2.0 CO2 Normal 25.0 LAB L501.6200 5-15 GAP Normal 9 Performed By: #### L500.2500 #### [facility] [address] [place], [address] EMERGENCY DEPARTMENT Observed: 05/21/2017 Status: F Source: [place] SUMMARY 4:06 PM [facility] REPOSITORY [facility] Medical Records Department [address] [place] [address] Emergency Department Summary 05/21/17 1330 MR#: [id number] Acct: [id number] Name: TRAMAINE PENG Rep #: [id number] : 1985 32 From: Soto Araya MD PCP: Susana Diaz III, MD Status: REG ER - ER Visit Summary Date of Service: 05/21/17 Chief Complaint: Vomiting History of Present Illness: The patient is a 32 F who just had plastic surgery on her lower abdominal wall for access tissue that has been present since she lost a lot of weight after having a remote gastric bypass surgery. Her recent surgery was a couple weeks ago. For the last 4 or 5 days, she has had increasing vomiting to the point of having trouble keeping down oral liquids, subsequent fatigue, decreased oral intake, decreasing bowel movements her last normal one was yesterday morning, and she has been having incisional pain since the surgery. Her wound is an open wound which is being packed every other day, with dressing changes every day by home health nurse, but the mass of soft tissue in her lower pelvis is still present, she has pain in her lower incision area especially feeling like the mass of soft tissue is pulling at it due to gravity. She does not have significant other abdominal discomfort other than at the wound. No urinary symptoms except for decreased urine output. She was admitted postoperatively for renal failure, and she was sent for IV fluids and further evaluation to ensure she is not developing that again. She had a dressing change and repacked just prior to coming here. Physical Examination: No acute distress, keenly alert and well appearing. Oral mucous membranes are moist. Not tachycardic. She has a large open subcutaneous wound on her lower abdominal wall that goes all the way across her lower abdomen, there is subcutaneous tissue exposed there are pieces of silver-embedded gauze within the wound, followed by a gauze packing and an ABD pad over top. The wound appears to be healthy and well perfused without any ischemic or infected tissue. It is quite sore and tender to palpation. The skin edges appear healthy and without any signs of cellulitis. Distal to this, she has a mass of nontender fatty tissue that leads into her labia majora bilaterally. The skin overlying this does not appear to be cellulitic. Her lungs are clear to auscultation, she is neurologically intact throughout all 4 extremities. Test Results: Normal labs including renal function. Normal acute abdominal series. Emergency Department Course and Treatment: Symptoms are improved after treatment here with fluids, promethazine IV, morphine. She complained more of a headache and she did abdominal discomfort. Tolerating oral fluids. Possible unrelated viral gastritis or vomiting related to incisional pain which is severe when she has her woundvac dressing replaced. Reassured and stable to follow-up. Treatment Plan: Supportive. She states she has promethazine and Zofran at home and declines prescription for Phenergan suppositories. Disposition: Discharge home Impression: Postoperative abdominal wall pain Vomiting with mild dehydration This note was generated with Snapwiz dictation software. It may contain incorrect words, spelling, and punctuation that were not noted in review of the chart prior to signing ED Disposition - Plan for ED Patient: Disposition: Home or Assisted Living Chief Complaint: Nausea/Vomiting Instructions: ED Gastritis Referrals: Susana Diaz III, MD [Primary Care Provider] - 3-5 Days if not improving What to do if you have Problems For any increased pain, shortness of breath, bleeding, nausea or vomiting, chest pain, or any unexpected problems, contact your Primary Care Provider. Call [facility] ([phone]) or report to the closest Emergency Room. Call 911 if necessary. 05/21/17 1606 <Electronically signed by Soto Araya MD> Date Soto Araya MD Cosigner Signature (If Indicated): Date CC: Susana Diaz III, MD CBC W/DIFF, AUTOMATED Collected: 05/21/2017 Status: F Source: [place] 2:45 PM [facility] REPOSITORY Order Comment: REDRAW. PREVIOUS SPECIMEN REJECTED DUE TO QNS. 05/21/17 1358 Donna Fitzgerald. TYPE CODE TESTS RESULT OUT OF RANGE REFERENCE UNITS LAB L100.1000 4.4-11.0 K/mm3 Normal WBC 8.3 LAB L100.1200 4.2-5.4 M/mm3 Low RBC 3.65 LAB L100.1300 12.0-15.0 g/dl Low HGB 10.0 LAB L100.1400 37-47 % Low HCT 30.5 LAB L100.1500 81-99 fL Normal MCV 83.6 LAB L100.1600 27.0-32.0 pg Normal MCH 27.4 LAB L100.1700 32-36 g/gl Normal MCHC 32.8 LAB L100.1810 11.6-14.6 % High RDW CV 15.4 LAB L100.1820 35.1-43.9 fl High RDW SD 46.1 LAB L100.1900 150-450 K/mm3 High PLT 651 LAB L100.2000 6.2-12.0 fl Normal MPV 10.6 LAB L100.2100 47-70 % High NEUT% 71.6 LAB L100.2200 19-41 % Low LY% 18.7 LAB L100.2300 0-10 % Normal MONO% 7.7 LAB L100.2400 0-5 % Normal EO% 1.2 LAB L100.2500 0-1 % Normal BASO% 0.6 LAB L100.2550 0.0-0.9 % Normal IM GRAN % 0.200 Result Comment: IG% - Immature Granulocytes (promyelocytes, myelocytes and metamyelocytes) > 1% indicates that a LEFT SHIFT is Present. LAB L100.2620 2.0-7.7 X10 3/uL Normal Absolute Neut 6.0 LAB L100.2720 0.83-4.51 X10 3/ul Normal Absolute Lymph 1.56 Performed By: #### L100.0100 #### [facility] [address] [place], [address] BASIC METABOLIC Collected: 05/21/2017 Status: F Source: [place] PROFILE ([facility]) 1:45 PM [facility] REPOSITORY TYPE CODE TESTS RESULT OUT OF RANGE REFERENCE UNITS LAB L501.0100 74-106 mg/dL Normal GLU 84 Result Comment: Please note revised GLUCOSE reference range effective 2017. LAB L501.1000 7-18 mg/dL Normal BUN 9 LAB L501.1100 0.55-1.02 mg/dL Normal CREAT,SERUM 0.71 Result Comment: The validity of the calculated GFR AND GFRAA in patients over 70 years has not been determined. Clinical correlation is essential. LAB L501.1110 >60 mL/min Normal EST GFR 103 Result Comment: Non- GFR Calc LAB L501.1115 >60 mL/min Normal EST GFR - AA 124 Result Comment: GFR Calc LAB L501.1255 ml/min Normal Estimated CRCL 107.48 LAB L501.1300 10-20 RATIO BUN/CRE Normal 12.7 LAB L501.2200 8.5-10 mg/dL .1 CA Normal 9.1 LAB L501.5300 136-14 mmol/L 5 NA Normal 138 LAB L501.5600 3.5-5. mmol/L 1 K Normal 4.3 LAB L501.5900 98-107 mmol/L CL Normal 106 LAB L501.6100 21.0-3 mmol/L 2.0 CO2 Normal 23.0 LAB L501.6200 5-15 GAP Normal 9 Performed By: #### L500.2500 #### [facility] [address] [facility] [place], [address] ACUTE ABDOMEN INC Observed: 05/21/2017 Status: F Source: [place] CHEST 1:10 PM [facility] REPOSITORY [facility] Imaging Services [address] [place] [address] Acute Abdomen Inc Chest MR#: [id number] Acct: [id number] Name: TRAMAINE PENG Rep #: [id number] : 1985 F 32 From: Demetrius Brandon MD PCP: Susana Diaz III, MD Status: REG ER Study: Acute Abdomen Inc Chest Date of Exam: 05/21/17 Exam# [id number] Ordering Dr: Soto Araya MD STUDY: X-RAY - ACUTE ABDOMINAL SERIES REASON FOR EXAM: Female, 32 years old. History of recent gastric bypass surgery. 4-5 day history of vomiting. TECHNIQUE: Single view of the chest. Supine, and erect view(s) of the abdomen were obtained. COMPARISON: None. FINDINGS: The lungs are clear and expanded. Normal size heart. Normal mediastinum and kuldeep. Normal visualized pulmonary arteries. Normal visualized aortic arch and descending thoracic aorta. There is a non-specific bowel gas pattern. The patient is status post cholecystectomy. Surgical sutures are seen in the region of the stomach and tip with prior surgery. Normal visualized osseous structures. RAD/Acute Abdomen Inc Chest IMPRESSION: Nonspecific bowel gas pattern. Electronically Signed: Demetrius Brandon MD at 14:57 EST Tel [phone], Service support , CC: SOTO ARAYA MD; Susana Diaz III, MD Manager Equity: Signed PROGRESS Observed: 05/19/2017 Status: COMPLETED Source: [place] 6:30 PM [facility] REPOSITORY HNO ID: [id number] Author: Susana Diaz III Service: (none) Author Type: Physician Type: Progress Notes Filed: 05/19/2017 6:30 PM Note Text: Tramaine, The lab results look pretty good. The albumin level is just slightly low at 3.7. Continue to try to get extra protein in the diet. You're close enough to the normal range that I think you'll get there within the next couple of weeks. Will recheck protein level in one month. Susana Diaz III, MD, FAAFP VITAMIN B12 Collected: 05/19/2017 Status: F Source: [place] 9:37 AM [facility] REPOSITORY TYPE CODE TESTS RESULT OUT OF REFERENCE UNITS RANGE LAB B12 232-1245 pg/mL Low Vitamin B12 204 Performed By: #### B12, SERFOL, IRON, FERR, VITD #### [facility] [address] [place] [address] FOLATE, SERUM Collected: 05/19/2017 Status: F Source: [place] 9:37 AM [facility] REPOSITORY TYPE CODE TESTS RESULT OUT OF REFERENCE UNITS RANGE LAB SERFOL >4.7 ng/mL Folate, 11.8 Serum Performed By: #### B12, SERFOL, IRON, FERR, VITD #### [facility] [address] [place] [id number] IRON AND TIBC Collected: 05/19/2017 Status: F Source: [place] 9:37 AM [facility] REPOSITORY TYPE CODE TESTS RESULT OUT OF REFERENCE UNITS RANGE LAB IRN 41-186 ug/dL Low Iron 20 LAB TIBC 232-386 ug/dL TIBC 287 LAB SAT 15-57 % Low Transferrin Saturatn 7 Performed By: #### B12, SERFOL, IRON, FERR, VITD #### [facility] [address] [place] [address] FERRITIN Collected: 05/19/2017 Status: F Source: [place] 9:37 AM [facility] REPOSITORY TYPE CODE TESTS RESULT OUT OF REFERENCE UNITS RANGE LAB FERR 14.7-205.1 ng/mL Ferritin 98.5 Performed By: #### B12, SERFOL, IRON, FERR, VITD #### [place] [address] VITAMIN D 25 HYDROXY Collected: 05/19/2017 Status: F Source: [place] 9:37 AM [facility] REPOSITORY TYPE CODE TESTS RESULT OUT OF REFERENCE UNITS RANGE LAB VITD 31.0-80.0 ng/mL Low Vitamin D 25 26.7 Hydroxy Result Comment: Classification of 25 [place] Vitamin D status: Insufficiency/Moderate Deficiency: < or = 30 ng/mL Sufficiency/Optimal Levels: 31 to 80 ng/mL Toxicity: > 100 ng/mL Test performed by chemiluminescent immunoassay. Performed By: #### B12, SERFOL, IRON, FERR, VITD #### [facility] [address] [place] [address] PROGRESS Observed: 05/18/2017 Status: COMPLETED Source: EURE 10:04 AM [facility] REPOSITORY HNO ID: [id number] Author: Susana Diaz III Service: (none) Author Type: Physician Type: Progress Notes Filed: 05/18/2017 12:16 PM Note Text: SUBJECTIVE: This is a 32 year old female that is here today for Hospital Discharge Follow up. Plastic surgery on 04/20 to remove panniculus, complicated by infection requiring admission 04/30 with 103 deg--antibiotics. Oxycodone 20mg q 3-4 hrs given during hospital stay,( complicated by auditory hallucinations), acute renal failure (creat 5), wound vac. Now on norco 10mg prior to wound vac changes with adequate pain control. Took 4 norco 10 mg yesterday for pain control. On keflex. 2. ch anemia with ch fatigue. Received prbc transfusions. 05/13: Hb 9.3 creat 1.99 WBC 7.3 pre-albumin 11. 6 PAST MEDICAL HISTORY Diagnosis Date - BENIGN HYPERTENSION 11/16/2006 - Calcium oxalate renal stones 2009 - Calculus of ureter 09/30/2007 s/p URS and stent with hydro. - Cervical disc disorder with radiculopathy 04/15/2010 - Chronic postoperative pain 02/27/201603/2015, gastric bypass surgery. Pain from severed nerves and muscle - COMMON MIGRAINE INTRACTABLE Improved - Gallbladder sludge 05/31/2013 - GERD (gastroesophageal reflux disease) 09/12/2014 - History of Og-en-Y gastric bypass - Hyperparathyroidism due to vitamin D deficiency ([facility]) 04/05/2013 - Iron deficiency anemia secondary to inadequate dietary iron intake 05/04/2017 - halfway prescription opiate use 02/27/2016 Chronic post op (gastric bypass) pain - Lumbar disc disorder with myelopathy 06/04/2010 - Moderate protein-calorie malnutrition (HCC) 05/04/2017 - Morbid obesity with BMI of 50.0-59.9, adult ([facility]) 09/12/2014 - Non-alcoholic fatty liver disease - OBESITY NOS 06/01/2005 - Obstructive sleep apnea Approval received from [facility] 02/01/2015 for CPAP @ 10 approval - 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 (Patient taking differently: Take 150 mg by mouth twice daily with meals. ) labetalol (TRANDATE) 100 mg tablet Take 1 tablet by mouth twice daily. ketoconazole (NIZORAL) 2 % cream Apply 1 application to affected area twice daily. amitriptyline (ELAVIL) 50 mg tablet Take 1 tablet by mouth daily at bedtime. cholecalciferol, Vitamin D3, (VITAMIN D3) 50,000 unit cap capsule one capsule once/wk acetaminophen (TYLENOL) 500 mg tablet Take 2 tablets by mouth every 6 hours. amLODIPine (NORVASC) 10 mg tablet Take 1 tablet by mouth once daily. potassium citrate ER (UROCIT-K 10) 10 mEq (1,080 mg) TbER Take 1 tablet by mouth twice daily. ETONOGESTREL (NEXPLANON SDRM) by SUBDERMAL route. HYDROcodone-acetaminophen (NORCO) 5-325 mg per tablet Take 1 tablet by mouth every 6 hours as needed for Pain for up to 7 days. No current facility-administered medications on file prior to visit. FAMILY HISTORY Problem Relation Age of Onset - Brain tumor [OTHER] Mother Benign - Hypertension Father - Diabetes Father - Diverticulitis [OTHER] Father - COPD Paternal Grandfather - Colon Cancer Paternal Grandfather - Diabetes Maternal Grandfather - Kidney stone [OTHER] Maternal Uncle - ESRD [OTHER] Other Maternal cousin. Agenesic/atrophic kidney Social History Substance Use Topics - Smoking status: Never Smoker - Smokeless tobacco: Never Used - Alcohol use Yes Comment: rarely-2 drinks per month BP 139/81 Pulse 77 Resp 16 Wt 87.1 kg (192 lb) LMP 05/08/2017 (Approximate) BMI 30.99 kg/m2 .. OBJECTIVE: APPEARANCE Well appearing, alert, in no acute distress, well-hydrated, well nourished. ABDOMEN wound vac in wound of lower abd. Very distended labia majora ASSESSMENT: post op pain with slowly healing surgical wound Chronic prescription opiate use?appropriate History recurrent renal stones requiring episodic increase in opiate use Status post bariatric surgery with protein?calorie malnutrition Chronic anemia PLAN: vitamin B12, folic acid, ferritin, iron/tibc today check pre-albumin level, CBC in 1 mo. add protein to diet-- follow up with Dr Mendieta as appointed We discussed the need for protein supplements in the diet. We also mentioned that she may also have vitamin deficiencies. Schedule regarding pain management. Since she experienced auditory hallucinations to oxycodone, this medication will never be prescribed again. At the present time hydrocodone 10 mg is effective to manage pain during wound VAC changes every 2-3 days. We discussed allowing to manage postop pain. I am willing to continue to manage her other chronic pain. Since I'll be leaving town this week, and I suspect Dr. Mendieta will not be continuing to prescribe adequate analgesia for the postop pain, I did write a prescription for hydrocodone 5 mg tablet to be filled only if Dr. Mendieta does not continue to prescribe narcotics for the postoperative pain. Long discussion regarding this issue. Susana Diaz III MD OARRS website checked and validated. All prescriptions have been APPROPRIATELY filled. No suspicious activity was identified.- 05/18/2017 by Susana Diaz III MD COMP METABOLIC PANEL Collected: 05/18/2017 Status: F Source: EURE 9:34 AM [facility] REPOSITORY TYPE CODE TESTS RESULT OUT OF REFERENCE UNITS RANGE LAB TP 6.3-8.0 g/dL Protein, Total 6.7 LAB ALB 3.9-4.9 g/dL Low Albumin 3.7 LAB CA 8.5-10.2 mg/dL Calcium, Total 9.1 LAB TBIL 0.2-1.3 mg/dL Bilirubin, Total 0.2 LAB ALKP 32-117 U/L Alkaline Phosphatase 54 LAB AST 13-35 U/L AST 16 LAB GLU 74-99 mg/dL Low Glucose 67 Result Comment: The [place] Diabetes Association (ADA) provides guidance for cutoff values for fasting glucose and random glucose. The ADA defines fasting as no caloric intake for at least 8 hours. Fas ting plasma glucose results between 100 to 125 mg/dL indicate increased risk for diabetes (prediabetes). Fasting plasma glucose results greater than or equal to 126 mg/dL meet the criteria for diagnosis of diabetes. In the absence of unequivocal hyperglycemia, results should be confirmed by repeat testing. In a patient with classic symptoms of hyperglycemia or hyperglycemic crisis, random plasma glucose results greater than or equal to 200 mg/dL meet the criteria for diagnosis of diabetes. Reference: Standards of Medical Care in Diabetes 2016, [place] Diabetes Association. Diabetes Care. 2016.39(Suppl 1). LAB BUN 7-21 mg/dL BUN 13 LAB CRET 0.58-0.96 mg/dL Creatinine High 1.15 LAB NA 136-144 mmol/L Sodium 142 LAB K 3.7-5.1 mmol/L Potassium 4.3 LAB CL 97-105 mmol/L Chloride 101 LAB CO2 22-30 mmol/L CO2 24 LAB AGAP 9-18 mmol/L Anion Gap 17 LAB ALT 7-38 U/L ALT 7 LAB GFRAA eGFR- Amer. >60 LAB GFRNAA . eGFR-All Other Races 55 Result Comment: eGFR (Estimated GFR) Units of measure: mL/min/1.73 meters squared eGFR is derived from the reexpressed MDRD Study equation using the following parameters: serum creatinine, age, gender and race. The creatinine assay has been calibrated to be traceable to IDMS. An eGFR <60 mL/min/1.73m2 for >3 months is consistent with chronic kidney disease. Refer to KDOQI guidelines for clinical interpretation. In patients with unstable renal function, e.g. those with acute kidney injury, the eGFR may not accurately reflect actual GFR. Performed By: #### CMP #### [facility] [address] [place], [place] [address] EMERGENCY DEPARTMENT Observed: 05/13/2017 Status: F Source: [place] SUMMARY 11:49 PM [facility] REPOSITORY [facility] Medical Records Department [address] [place] [address] Emergency Department Summary 05/13/17 2201 MR#: [id number] Acct: [id number] Name: TRAMAINE PENG Rep #: [id number] : 1985 32 From: Timmy Winters MD PCP: Susana Diaz III, MD Status: DEP ER - ER Visit Summary Date of Service: 05/13/17 Chief Complaint: Abdominal pain History of Present Illness: The patient is a [address] Susana Diaz III and Dr. Mendieta. She has a complicated recent medical history. She was discharged in the hospital 3 days ago after 10 day hospitalization when a abdominal seroma was drained. She was found to have MSSA. She was on Ancef and Flagyl in the hospital. She was discharged on Keflex. Her hospitalization was complicated by acute kidney injury that was thought to be due to vancomycin. Patient reports that today she had a fever to 102.3 . She denies any sore throat or cough. She states that she has abdominal pain is 9 out of 10 with movement and sharp. It is a constant 7 out of 10 aching pain. She is taking 10 mg of oxycodone every 4 without relief. She has had nausea and dry heaves. She reports her last bowel movements today. She has had no diarrhea. No melena or hematochezia. No dysuria or frequency. Patient reports that she was discharged with a wound VAC. 2 days ago the home health nurse switch this to a wet and dry dressing and that is when the patient's been worsened. She reports that a wound VAC was placed again today, but her pain has not improved. Physical Examination: Vitals: Stable. Afebrile. General: Well-nourished and well-developed. Head: Normocephalic atraumatic. Neck: Supple, no lymphadenopathy. No JVD. Nontender. Cardiovascular: Regular rate and rhythm. No murmurs. Respiratory: No respiratory distress. Clear to auscultation bilaterally. Abdominal: Soft, mild diffuse tenderness to palpation, moderate tenderness palpation over the mons area that has mild erythema, nondistended, normal bowel sounds. No guarding, rebound, or peritoneal signs. The wound VAC is T-shaped and in good position. It appears to be working well. There is no surrounding drainage or erythema. Back: Nontender. Extremities: Nontender, no edema. Skin: Normal color, no rash. Neurologic: Alert and oriented 3. Cranial nerves II through XII are intact. Normal strength and sensation. Psych: Normal affect. Test Results: CBC is marked for an H AND H of 9.3 and 28.8, platelets of 609. Chem-7 is more for chloride of 108 and creatinine 1.99. Emergency Department Course and Treatment: Patient was treated with morphine and Zofran IV. She is resting comfortably. Treatment Plan: Patient was discussed with Dr. Mendieta. He would like her to follow-up in the wound clinic and also in his office. She is instructed to speak with him about further pain management. Return to the emergency department for any worsening symptoms. Disposition: To home in improved and stable condition. Impression: 1. Postop day #10 status post drainage of seroma. 2. Anemia. 3. Renal insufficiency, improved. This note was generated with My eStore Appation software. It may contain incorrect words, spelling, and punctuation that were not noted in review of the chart prior to signing ED Disposition - Plan for ED Patient: Disposition: Home or Assisted Living Chief Complaint: Abd Pain Instructions: ED Post Op Pain Referrals: Gigi Mendieta MD [STAFF PHYSICIAN] - 1 Day for another exam What to do if you have Problems For any increased pain, shortness of breath, bleeding, nausea or vomiting, chest pain, or any unexpected problems, contact your Primary Care Provider. Call [facility] ([phone]) or report to the closest Emergency Room. Call 911 if necessary. 05/13/17 1949 <Electronically signed by Timmy Winters MD> Date Timmy Winters MD Cosigner Signature (If Indicated): Date CC: Susana Diaz III, MD BASIC METABOLIC Collected: 05/13/2017 Status: F Source: [place] PROFILE (BMP) 7:15 PM [facility] REPOSITORY TYPE CODE TESTS RESULT OUT OF RANGE REFERENCE UNITS LAB L501.0100 74-106 mg/dL Normal GLU 86 Result Comment: Please note revised GLUCOSE reference range effective 2017. LAB L501.1000 7-18 mg/dL High BUN 32 LAB L501.1100 0.55-1.02 mg/dL High CREAT,SERUM 1.99 Result Comment: The validity of the calculated GFR AND GFRAA in patients over 70 years has not been determined. Clinical correlation is essential. LAB L501.1110 >60 mL/min Low EST GFR 31 Result Comment: Non- GFR Calc LAB L501.1115 >60 mL/min Low EST GFR - AA 38 Result Comment: GFR Calc LAB L501.1255 ml/min Normal Estimated CRCL 38.35 LAB L501.1300 10-20 RATIO Normal BUN/CRE 16.1 LAB L501.2200 8.5-10 mg/dL Normal .1 CA 8.7 LAB L501.5300 136-14 mmol/L Normal 5 NA 141 LAB L501.5600 3.5-5. mmol/L Normal 1 K 5.0 LAB L501.5900 98-107 mmol/L High CL 108 LAB L501.6100 21.0-3 mmol/L Normal 2.0 CO2 22.0 LAB L501.6200 5-15 Normal GAP 11 Performed By: #### L500.2500 #### [facility] [address], [address] CBC W/DIFF, AUTOMATED Collected: 05/13/2017 Status: F Source: [place] 7:15 PM [facility] REPOSITORY TYPE CODE TESTS RESULT OUT OF RANGE REFERENCE UNITS LAB L100.1000 4.4-11.0 K/mm3 Normal WBC 7.3 LAB L100.1200 4.2-5.4 M/mm3 Low RBC 3.50 LAB L100.1300 12.0-15.0 g/dl Low HGB 9.3 LAB L100.1400 37-47 % Low HCT 28.8 LAB L100.1500 81-99 fL Normal MCV 82.3 LAB L100.1600 27.0-32.0 pg Low MCH 26.6 LAB L100.1700 32-36 g/gl Normal MCHC 32.3 LAB L100.1810 11.6-14.6 % High RDW CV 15.7 LAB L100.1820 35.1-43.9 fl High RDW SD 47.9 LAB L100.1900 150-450 K/mm3 High PLT 609 LAB L100.2000 6.2-12.0 fl Normal MPV 10.0 LAB L100.2100 47-70 % Normal NEUT% 68.2 LAB L100.2200 19-41 % Normal LY% 21.2 LAB L100.2300 0-10 % Normal MONO% 7.4 LAB L100.2400 0-5 % Normal EO% 2.5 LAB L100.2500 0-1 % Normal BASO% 0.4 LAB L100.2550 0.0-0.9 % Normal IM GRAN % 0.300 Result Comment: IG% - Immature Granulocytes (promyelocytes, myelocytes and metamyelocytes) > 1% indicates that a LEFT SHIFT is Present. LAB L100.2620 2.0-7.7 X10 3/uL Normal Absolute Neut 5.0 LAB L100.2720 0.83-4.51 X10 3/ul Normal Absolute Lymph 1.54 Performed By: #### L100.0100 #### [facility] [address] [place], [address] DISCHARGE SUMMARY Observed: 05/13/2017 Status: F Source: [place] 9:51 AM [facility] REPOSITORY [facility] Medical Records Department [address] [place] [address] Discharge Summary 05/10/17 1324 MR#: [id number] Acct: [id number] Name: TRAMAINE PENG Rep #: [id number] : 1985 32 From: Gigi Mendieta MD PCP: Susana Diaz III, MD Status: DIS IN Y Location: [facility] [id number] Discharge Date and Diagnosis Date of Admission: 04/30/17 Date of Discharge: 05/10/17 - Primary Discharge Diagnosis Infected seroma/hematoma lower anterior abdominal wall and pubic area. ERIKA (acute kidney injury). Cellulitis of abdominal wall. Cellulitis of pubic region. Anemia of chronic disease, acute on chronic, stable. - Secondary Discharge Diagnosis HTN (hypertension) Nephrolithiasis Ovarian cyst Painful soft tissue mass pubic area. 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 Abdominal wall skin crease intertrigo. History of MRSA. Hospital Course and Treatment Imaging Results: Diagnostic Data Pelvis CT 04/30/17 10:09 IMPRESSION: Subcutaneous fluid collection as described. A drainage catheter is seen within. This most likely represents a postoperative seroma. Electronically Signed: Demetrius Brandon MD at 11:27 EST Tel [phone], Service support , Renal Ultrasound 05/05/17 11:25 IMPRESSION: Nonobstructive right renal stone. Electronically Signed: Robert Wolfe MD at 18:23 EST , Service support , Consultations 05/04/17 06:39 Consult: Onc/Wound/healthcare advisory services manager Routine Comment: Reason for Consult:: wound VAC application Hospitalist Group - Dr. Reyes and Dr. Stuart. Infectious Diseases - Dr. Renee. Renal - Dr. Mireles and Dr. Hayes. Operations: - - 05/03/17 - Surgical preparation lower anterior abdominal wall and pubic area with incision and drainage and excisional debridement infected seroma/hematoma (250 cm2). Procedures: Blood transfusion, Wound vac placement Summary of Care Provided: The patient is a 32 year old F who presented with a painful soft tissue mass on her pubic area. This mass first developed after abdominal surgery done earlier in the Summer. Back in 2015 she had a gastric bypass procedure including clinic. It was a laparoscopic Og-en-Y procedure. At that time she weighed about 380 pounds and today she weighs about 200 pounds. In August 2016 she underwent an abdominal panniculectomy. After surgery she developed some bleeding was taken back to surgery the same day where she underwent incision and drainage of postop hematoma. She did okay postoperatively initially for about a month. At the end of September she noticed increased pain and redness and swelling in the right side of her abdominal wall near the incision. She went back to surgery on October 20, 2016 where she underwent incision and drainage of infected abdominal seroma. She was treated with antibiotics and wound care until healed. Throughout these procedures she developed increased scarring in the lower anterior abdominal wall area and this exacerbated her painful symptomatology in her pubic area where a large soft tissue masses located. She denies any recent infection of the soft tissue mass. Denies any trauma. Denies any drainage. Patient denies any fever. On 04/20/17 the patient underwent excision 8 cm painful soft tissue mass pubic area with 20 cm complex closure. Postop she developed increasing pain and redness on the right side of her pubic area. She then had increased temp at home and came to the ED. Her WBC was 14.9. She was admitted to the hospital and placed on IV antibiotics. CT showed a seroma which is expected and she still had a drain in place. There was no bleeding in the Fidelia drain. However she drifted down to 7.4. She was ahead in her I/O's by 6000 ml. Most of the decrease was probably IV dilution. She was given 2 units of PRBC and was taken back to the OR because of persistent pain and swelling. Also to make sure there is not a large hematoma present. On 05/03/17, the patient went to the OR and underwent surgical preparation lower anterior abdominal wall and pubic area with incision and drainage and excisional debridement infected seroma/hematoma (250 cm2). The wound was left open and a VAC was applied. Perioperatively she was treated with Vancomycin and Zosyn as she has a history of MRSA. On the first postop day, the Creatinine increased to 1.27 and the Vancomycin was stopped. The MRSA screen was negative and was positive for MSSA. She was continued on Zosyn. Hospitalist Group was consulted for medical management. They stopped the Lisinopril and the Lasix. Infectious Diseases was consulted to help with antibiotic management. The Zosyn was changed to Ancef and Flagyl. Postop her Hgb stabilized after the PRBC. She was started on Fe supplementation and will followup with her PCP after discharge to further evaluate her anemia since it is quite common to have anemia after gastric bypass surgery. At discharge her Hgb had stabilized at 8.6. When the Creatinine continued to rise, a Renal consult was obtained. Ultrasound showed a nonobstructing stone on the right. They felt dialysis was not needed at this time. The Creatinine continued to rise and reached a plateau on 05/08/17 of 4.30. It then started to decrease and after two days of decrease, the level was 3.85 on 05/10/17 and she was felt to be stable to go home. The Ancef was changed to Keflex at discharge for an additional week for the operative culture that showed Staphylococcus aureus. She was able to tolerate the VAC changes and was discharged home on 05/10/17. Home Health will assist with the VAC changes three times per week at 150 mmHg continuous suction. She will continue the abdominal wall binder over the pubic area to help with compression. She will also obtain an extra large athletic supporter to also help with support. Prealbumin has improved a little to 11.6. Encourage nutritional supplementation with protein to help the healing process. Upon discharge she will have labs drawn weekly for the next couple of weeks. Followup Dr. Mendieta at [facility] on 05/24/17. Followup with PCP in 2-4 weeks. Followup with Nephrology in 2 weeks. Wrote script for Keflex twice a day for a week. Wrote scripts for Percocet for pain, 10mg, one tab (30 tabs) and for Valium for spasm (30 tabs). Condition upon discharge was stable. Discharge Diet: Renal Diet, - - encourage nutritional supplementation with protein to help the healing process. Discharge Activity: May not drive while taking narcotic pain medications., May Shower - on the days the vac is changed. May shower in (days): 2 - may shower on the days the vac is changed. May resume sexual activity in: 10-14 days Weight Bearing Status: Weight bearing as tolerated Call your doctor if your incision/area has: Continuous Slow Oozing, Sudden Increased Bleeding, Increased Pain/ Swelling, Increased Redness, Foul Smelling Discharge, Swelling at the incision site Call your doctor if you observe: Fever of 101 or Higher, Coldness, Increased Pain, Shortness of breath, Chest pain, Calf discomfort, Uncontrolled pain Suture Line Care: - - vac dressing changes 3 times per week at 150mmHg continuous suction. Change Dressing in (Days):: 2 - vac changes 3 times per week. Cleanse incision/area with: Soap AND Water - may cleanse the wound with soap and water at the time of the vac dressing changes., - - may shower on the days the vac is changed. Additional Dressing/Incision Instructions:: Home Health to assist with vac changes 3 times per week at 150 mmHg continuous suction. Home Medications: Medications to take at Discharge Amitriptyline HCl [Elavil] 50 mg PO QHS PRN 04/30/17 Amlodipine Besylate [Norvasc] 10 mg PO DAILY 04/30/17 Ergocalciferol [Vitamin D] 50,000 unit PO TUTH 04/30/17 Etonogestrel [Nexplanon] 68 mg SQ UD 04/30/17 Labetalol [Trandate (Beta Emily)] 100 mg PO BID 04/30/17 Potassium Chloride [K-Dur] 10 meq PO BID 04/30/17 Tamsulosin HCl [Flomax] 0.8 mg PO DAILY 04/30/17 Cephalexin [Keflex] 500 mg PO BID #14 cap 05/10/17 Diazepam [Valium] 5 mg PO 4X/DAY PRN PRN #30 tab 05/10/17 Iron Polysaccharide Complex [Ferrex 150] 150 mg PO DAILYCM capsule 05/10/17 Oxycodone HCl/Acetaminophen [Percocet 10-325 mg Tablet] 1 tab PO 4X/DAY PRN PRN 7 Days #30 tab 05/10/17 Following Prescrptions Were Given to Patient: Diazepam [Valium] 5 mg PO 4X/DAY PRN PRN #30 tab PRN Reason: Spasms Oxycodone HCl/Acetaminophen [Percocet 10-325 mg Tablet] 1 tab PO 4X/DAY PRN PRN 7 Days #30 tab PRN Reason: Pain Cephalexin [Keflex] 500 mg PO BID #14 cap Primary Care Physician: Susana Diaz III, MD [Primary Care Provider] - Please follow up with your Primary Care Physician in: 2-4 weeks. Please Follow Up With: Gigi Mendieta MD - call [phone] if questions. When: 05/24/17 at wound center at 800 am. Please Follow Up With: Danis Hayes MD When: 2 weeks. call [phone] for appt. Disposition: Home Minutes spent on discharge:: 35 Patient Condition:: Stable Meaningful Use Info Meaningful Use Diagnoses (Choose all that apply): None applicable 05/13/17 0951 <Electronically signed by Gigi Mendieta MD> Date Gigi Mendieta MD Cosigner Signature (if applicable): Date CC: Maikel Mireles MD; Salvatore Reyes DO; Susana Diaz III, MD; Gigi Mendieta MD; Maribel Stuart MD; William Renee MD; Danis Hayes MD; [facility] Signed DISCHARGE INSTRUCTION Observed: 05/10/2017 Status: F Source: [place] 1:24 PM [facility] REPOSITORY [facility] Medical Records Department [address] [place] [address] Instructions for Home/Discharge Instructions 05/10/17 1317 MR#: [id number] Acct: [id number] Name: TRAMAINE PENG Rep #: [id number] : 1985 32 From: Gigi Mendieta MD PCP: Susana Diaz III, MD Status: ADM IN - Discharge Diagnoses Current Active Problems: Current Active and Chronic Problems (Last Updated 04/23/17 @ 14:42 by Griselda Chou) ERIKA (acute kidney injury) (Acute) Cellulitis of abdominal wall (Acute) Intertrigo (Chronic) abdominal wall skin crease intertrigo Localized adiposity (Chronic) 8 cm painful soft tissue mass pubic area Excessive body weight loss (Chronic) after gastric bypass procedure Cellulitis of pubic region (Acute) You will use the following diet at home:: Renal (restricted protein/sodium) Discharge Activity: May not drive while taking narcotic pain medications., May Shower - on the days the vac is changed. May shower in (days): 2 - may shower on the days the vac is changed. May resume sexual activity in: 10-14 days Weight Bearing Status: Weight bearing as tolerated Call your doctor if your incision/area has: Continuous Slow Oozing, Sudden Increased Bleeding, Increased Pain/ Swelling, Increased Redness, Foul Smelling Discharge, Swelling at the incision site Call your doctor if you observe: Fever of 101 or Higher, Coldness, Increased Pain, Shortness of breath, Chest pain, Calf discomfort, Uncontrolled pain Suture Line Care: - - vac dressing changes 3 times per week at 150mmHg continuous suction. Change Dressing in (Days):: 2 - vac changes 3 times per week. Cleanse incision/area with: Soap AND Water - may cleanse the wound with soap and water at the time of the vac dressing changes., - - may shower on the days the vac is changed. Additional Dressing/Incision Instructions:: Home Health to assist with vac changes 3 times per week at 150 mmHg continuous suction. Allergies/Adverse Reactions: Allergies methocarbamol Allergy (Verified 04/30/17 09:40) Chest tightness gabapentin Adverse Reaction (Verified 04/30/17 09:40) MADE ME WALK SIDEWAYS ketorolac tromethamine [From Toradol] Adverse Reaction (Verified 04/30/17 09:40) Upset Stomach NSAIDS (Non-Steroidal Anti-Inflamma Adverse Reaction (Verified 04/30/17 09:40) gastric bipass not supposed to take tramadol Adverse Reaction (Verified 04/30/17 09:40) Upset Stomach Medications to take at Discharge Amitriptyline HCl [Elavil] 50 mg PO QHS PRN 04/30/17 Amlodipine Besylate [Norvasc] 10 mg PO DAILY 04/30/17 Ergocalciferol [Vitamin D] 50,000 unit PO TUTH 04/30/17 Etonogestrel [Nexplanon] 68 mg SQ UD 04/30/17 Labetalol [Trandate (Beta Emily)] 100 mg PO BID 04/30/17 Potassium Chloride [K-Dur] 10 meq PO BID 04/30/17 Tamsulosin HCl [Flomax] 0.8 mg PO DAILY 04/30/17 Cephalexin [Keflex] 500 mg PO BID #14 cap 05/10/17 Diazepam [Valium] 5 mg PO 4X/DAY PRN PRN #30 tab 05/10/17 Iron Polysaccharide Complex [Ferrex 150] 150 mg PO DAILYCM capsule 05/10/17 Oxycodone HCl/Acetaminophen [Percocet 10-325 mg Tablet] 1 tab PO 4X/DAY PRN PRN 7 Days #30 tab 05/10/17 The following prescriptions were given: Diazepam [Valium] 5 mg PO 4X/DAY PRN PRN #30 tab PRN Reason: Spasms Oxycodone HCl/Acetaminophen [Percocet 10-325 mg Tablet] 1 tab PO 4X/DAY PRN PRN 7 Days #30 tab PRN Reason: Pain Cephalexin [Keflex] 500 mg PO BID #14 cap Primary Care Physician: Susana Diaz III, MD [Primary Care Provider] - Please follow up with your Primary Care Physician in: 2-4 weeks. Please Follow Up With: Gigi Mendieta MD - call [phone] if questions. When: 05/24/17 at [facility] at 800 am. Please Follow Up With: Danis Hayes MD When: 2 weeks. call [phone] for appt. Proposed Discharge Date: 05/10/17 05/10/17 1324 <Electronically signed by Gigi Mendieta MD> Date Gigi Mendieta MD CC: Emperatriz Hernandez MD; Maikel Mireles MD; Saeid Davis MD; Susana Diaz III, MD; Emilie Felton MD; Bonilla Moreira M.D.; Ricardo Jackson M.D.; William Renee MD; Danis Hayes MD; [facility] RENAL PROFILE Collected: 05/10/2017 Status: F Source: [place] 6:15 AM [facility] REPOSITORY TYPE CODE TESTS RESULT OUT OF RANGE REFERENCE UNITS LAB L501.0100 74-106 mg/dL Normal GLU 93 Result Comment: Please note revised GLUCOSE reference range effective 2017. LAB L501.1000 7-18 mg/dL High BUN 28 LAB L501.1100 0.55-1.02 mg/dL High CREAT,SERUM 3.85 Result Comment: The validity of the calculated GFR AND GFRAA in patients over 70 years has not been determined. Clinical correlation is essential. LAB L501.1110 >60 mL/min Low EST GFR 15 Result Comment: Non- GFR Calc LAB L501.1115 >60 mL/min Low EST GFR - AA 18 Result Comment: GFR Calc LAB L501.1255 ml/min Normal Estimated CRCL 19.82 LAB L501.1300 10-20 RATIO Low BUN/CRE 7.3 LAB L501.1800 3.2-5. g/dL Low 0 ALB 2.2 LAB L501.2200 8.5-10 mg/dL Low .1 CA 8.0 LAB L501.2300 2.5-4. mg/dL High 9 PHOS 5.0 LAB L501.5300 136-14 mmol/L Normal 5 NA 140 LAB L501.5600 3.5-5. mmol/L Normal 1 K 4.6 LAB L501.5900 98-107 mmol/L Normal CL 107 LAB L501.6100 21.0-3 mmol/L Normal 2.0 CO2 25.0 Performed By: #### L500.3600, L506.0500 #### [facility] [address] [place], [address] PREALBUMIN Collected: 05/10/2017 Status: F Source: [place] 6:15 AM [facility] REPOSITORY TYPE CODE TESTS RESULT OUT OF REFERENCE UNITS RANGE LAB L506.0500 20.0-40.0 mg/dL Low PREALBUMIN 11.6 Performed By: #### L500.3600, L506.0500 #### [facility] [address] [place], [address] RENAL PROFILE Collected: 05/09/2017 Status: F Source: [place] 5:23 AM [facility] REPOSITORY TYPE CODE TESTS RESULT OUT OF RANGE REFERENCE UNITS LAB L501.0100 74-106 mg/dL Normal GLU 86 Result Comment: Please note revised GLUCOSE reference range effective 2017. LAB L501.1000 7-18 mg/dL High BUN 25 LAB L501.1100 0.55-1.02 mg/dL High CREAT,SERUM 4.02 Result Comment: The validity of the calculated GFR AND GFRAA in patients over 70 years has not been determined. Clinical correlation is essential. LAB L501.1110 >60 mL/min Low EST GFR 14 Result Comment: Non- GFR Calc LAB L501.1115 >60 mL/min Low EST GFR - AA 17 Result Comment: GFR Calc LAB L501.1255 ml/min Normal Estimated CRCL 18.98 LAB L501.1300 10-20 RATIO Low BUN/CRE 6.2 LAB L501.1800 3.2-5. g/dL Low 0 ALB 2.0 LAB L501.2200 8.5-10 mg/dL Low .1 CA 8.2 LAB L501.2300 2.5-4. mg/dL High 9 PHOS 5.1 LAB L501.5300 136-14 mmol/L Normal 5 NA 138 LAB L501.5600 3.5-5. mmol/L Normal 1 K 4.6 LAB L501.5900 98-107 mmol/L Normal CL 105 LAB L501.6100 21.0-3 mmol/L Normal 2.0 CO2 23.0 Performed By: #### L500.3600 #### [facility] [address] [place], [address] CBC W/DIFF, AUTOMATED Collected: 05/08/2017 Status: F Source: [place] 5:45 AM [facility] REPOSITORY TYPE CODE TESTS RESULT OUT OF RANGE REFERENCE UNITS LAB L100.1000 4.4-11.0 K/mm3 Normal WBC 6.0 LAB L100.1200 4.2-5.4 M/mm3 Low RBC 3.18 LAB L100.1300 12.0-15.0 g/dl Low HGB 8.6 LAB L100.1400 37-47 % Low HCT 26.9 LAB L100.1500 81-99 fL Normal MCV 84.6 LAB L100.1600 27.0-32.0 pg Normal MCH 27.0 LAB L100.1700 32-36 g/gl Normal MCHC 32.0 LAB L100.1810 11.6-14.6 % High RDW CV 16.0 LAB L100.1820 35.1-43.9 fl High RDW SD 48.2 LAB L100.1900 150-450 K/mm3 High PLT 526 LAB L100.2000 6.2-12.0 fl Normal MPV 10.3 LAB L100.2100 47-70 % Normal NEUT% 60.6 LAB L100.2200 19-41 % Low LY% 15.3 LAB L100.2300 0-10 % High MONO% 19.0 LAB L100.2400 0-5 % Normal EO% 4.2 LAB L100.2500 0-1 % Normal BASO% 0.7 LAB L100.2550 0.0-0.9 % Normal IM GRAN % 0.200 Result Comment: IG% - Immature Granulocytes (promyelocytes, myelocytes and metamyelocytes) > 1% indicates that a LEFT SHIFT is Present. LAB L100.2620 2.0-7.7 X10 3/uL Normal Absolute Neut 3.6 LAB L100.2720 0.83-4.51 X10 3/ul Normal Absolute Lymph 0.92 Performed By: #### L100.0100 #### [facility] [place], [address] BASIC METABOLIC Collected: 05/08/2017 Status: F Source: [place] PROFILE ([facility]) 5:45 AM [facility] REPOSITORY TYPE CODE TESTS RESULT OUT OF RANGE REFERENCE UNITS LAB L501.0100 74-106 mg/dL Normal GLU 89 Result Comment: Please note revised GLUCOSE reference range effective 2017. LAB L501.1000 7-18 mg/dL High BUN 20 LAB L501.1100 0.55-1.02 mg/dL High CREAT,SERUM 4.30 Result Comment: The validity of the calculated GFR AND GFRAA in patients over 70 years has not been determined. Clinical correlation is essential. LAB L501.1110 >60 mL/min Low EST GFR 13 Result Comment: Non- GFR Calc LAB L501.1115 >60 mL/min Low EST GFR - AA 15 Result Comment: GFR Calc LAB L501.1255 ml/min Normal Estimated CRCL 17.75 LAB L501.1300 10-20 RATIO Low BUN/CRE 4.7 LAB L501.2200 8.5-10 mg/dL Low .1 CA 8.4 LAB L501.5300 136-14 mmol/L Normal 5 NA 139 LAB L501.5600 3.5-5. mmol/L Normal 1 K 4.4 LAB L501.5900 98-107 mmol/L Normal CL 105 LAB L501.6100 21.0-3 mmol/L Normal 2.0 CO2 23.0 LAB L501.6200 5-15 Normal GAP 11 Performed By: #### L500.2500 #### [facility] [address] [place], [place], [address] CBC W/DIFF, AUTOMATED Collected: 05/07/2017 Status: F Source: [place] 5:40 AM [facility] REPOSITORY TYPE CODE TESTS RESULT OUT OF RANGE REFERENCE UNITS LAB L100.1000 4.4-11.0 K/mm3 Normal WBC 6.5 LAB L100.1200 4.2-5.4 M/mm3 Low RBC 3.01 LAB L100.1300 12.0-15.0 g/dl Low HGB 8.2 LAB L100.1400 37-47 % Low HCT 25.5 LAB L100.1500 81-99 fL Normal MCV 84.7 LAB L100.1600 27.0-32.0 pg Normal MCH 27.2 LAB L100.1700 32-36 g/gl Normal MCHC 32.2 LAB L100.1810 11.6-14.6 % High RDW CV 16.0 LAB L100.1820 35.1-43.9 fl High RDW SD 47.6 LAB L100.1900 150-450 K/mm3 High PLT 488 LAB L100.2000 6.2-12.0 fl Normal MPV 10.1 LAB L100.2100 47-70 % Normal NEUT% 65.1 LAB L100.2200 19-41 % Low LY% 15.1 LAB L100.2300 0-10 % High MONO% 15.3 LAB L100.2400 0-5 % Normal EO% 3.4 LAB L100.2500 0-1 % Normal BASO% 0.8 LAB L100.2550 0.0-0.9 % Normal IM GRAN % 0.300 Result Comment: IG% - Immature Granulocytes (promyelocytes, myelocytes and metamyelocytes) > 1% indicates that a LEFT SHIFT is Present. LAB L100.2620 2.0-7.7 X10 3/uL Normal Absolute Neut 4.2 LAB L100.2720 0.83-4.51 X10 3/ul Normal Absolute Lymph 0.98 Performed By: #### L100.0100 #### [facility] [address] [place], [address] BASIC METABOLIC Collected: 05/07/2017 Status: F Source: [place] PROFILE ([facility]) 5:40 AM [facility] REPOSITORY TYPE CODE TESTS RESULT OUT OF RANGE REFERENCE UNITS LAB L501.0100 74-106 mg/dL Normal GLU 90 Result Comment: Please note revised GLUCOSE reference range effective 2017. LAB L501.1000 7-18 mg/dL High BUN 20 LAB L501.1100 0.55-1.02 mg/dL High CREAT,SERUM 4.26 Result Comment: The validity of the calculated GFR AND GFRAA in patients over 70 years has not been determined. Clinical correlation is essential. LAB L501.1110 >60 mL/min Low EST GFR 13 Result Comment: Non- GFR Calc LAB L501.1115 >60 mL/min Low EST GFR - AA 16 Result Comment: GFR Calc LAB L501.1255 ml/min Normal Estimated CRCL 17.91 LAB L501.1300 10-20 RATIO Low BUN/CRE 4.7 LAB L501.2200 8.5-10 mg/dL Normal .1 CA 8.5 LAB L501.5300 136-14 mmol/L Normal 5 NA 140 LAB L501.5600 3.5-5. mmol/L Normal 1 K 4.5 LAB L501.5900 98-107 mmol/L Normal CL 104 LAB L501.6100 21.0-3 mmol/L Normal 2.0 CO2 26.0 LAB L501.6200 5-15 Normal GAP 10 Performed By: #### L500.2500 #### [facility] [address] [place], [address] CONSULTATION Observed: 05/06/2017 Status: F Source: [place] 5:51 PM [facility] REPOSITORY [facility] Medical Records Department [address] [place] [address] Consultation 05/06/17 1736 MR#: [id number] Acct: [id number] Name: TRAMAINE PENG Rep #: [id number] : 1985 32 From: Maikel Mireles MD PCP: Susana Diaz III, MD Status: ADM IN Y [facility] Problem List (1) ERIKA (acute kidney injury) Status: Acute Consultation - Renal PCP/ Referring MD: Requesting physician: [] Primary care physician: Susana Diaz - History of Present Illness History of Present Illness: The patient is a 32 year old F past medical history of nephrolithiasis, hypertension , morbid obesity status post cardiac bypass surgery . Patient was admitted for abdominal wall cellulitis/abscess. Patient had I AND D by the surgical team with wound VAC placement . Patient also was treated with vancomycin . Patient also was kept on lisinopril and hydrochlorothiazide along with potassium citrate home medications. I was consulted for acute kidney injury. Patient has normal creatinine at baseline. On May 02 creatinine started to go up. Creatinine yesterday was 2.7 and jumped to 3.8 today. She is making good amount of urine. Nonoliguric. Lisinopril and hydrochlorothiazide were stopped yesterday. UA shows +30 protein. No NSAID use . No IV contrast exposure . No UTIs . No skin rash Renal ultrasound showed small nonobstructive renal calculus Review of system: 12 systems review is negative. [] - Allergies Allergies: Allergies methocarbamol Allergy (Verified 04/30/17 09:40) Chest tightness gabapentin Adverse Reaction (Verified 04/30/17 09:40) MADE ME WALK SIDEWAYS ketorolac tromethamine [From Toradol] Adverse Reaction (Verified 04/30/17 09:40) Upset Stomach NSAIDS (Non-Steroidal Anti-Inflamma Adverse Reaction (Verified 04/30/17 09:40) gastric bipass not supposed to take tramadol Adverse Reaction (Verified 04/30/17 09:40) Upset Stomach - Current Medications Current Medications: Current Medications Amitriptyline HCl (Elavil) 50 mg PO QHS [facility] Last Admin: 05/05/17 22:33 Dose: Not Given Amlodipine Besylate (Norvasc) 10 mg PO DAILY [facility] Last Admin: 05/06/17 09:33 Dose: 10 mg Diazepam (Valium) 5 mg PO 4X/DAY PRN PRN PRN Reason: SPASMS Last Admin: 05/05/17 22:37 Dose: 2.5 mg Ergocalciferol (Vitamin D) 50,000 unit PO TUTH [facility] Last Admin: 05/06/17 09:34 Dose: 50,000 unit Fentanyl (Duragesic) 25 mcg TRANSDERM. Q3D [facility] Last Admin: 05/04/17 22:23 Dose: 25 mcg Hydromorphone HCl (Dilaudid) 1 mg IV Q3H PRN PRN PRN Reason: SEVERE PAIN (6-10/10) Last Admin: 05/06/17 16:57 Dose: 1 mg Cefazolin Sodium 2 gm/ Sodium (Chloride) 120 mls @ 240 mls/hr IV Q12 [facility] Last Admin: 05/06/17 09:37 Dose: 240 mls/hr Labetalol HCl (Trandate) 100 mg PO BID [facility] Last Admin: 05/06/17 09:33 Dose: 100 mg Metronidazole (Flagyl) 500 mg PO TID [facility] Last Admin: 05/06/17 13:42 Dose: 500 mg Nutritional Formula (Collins - [place] Flavor) [facility] Last Admin: 05/06/17 17:00 Dose: Not Given Ondansetron HCl (Zofran) 4 mg IV Q6H PRN PRN PRN Reason: NAUSEA Last Admin: 05/06/17 12:10 Dose: 4 mg Oxycodone HCl (Oxyir) 20 mg PO Q4H PRN PRN PRN Reason: SEVERE PAIN (6-10/10) Last Admin: 05/06/17 13:41 Dose: 20 mg Polysaccharide Iron Complex (Ferrex 150) 150 mg PO DAILYCM RAUL Last Admin: 05/06/17 09:35 Dose: 150 mg Promethazine HCl (Phenergan) 25 mg PO Q4H PRN PRN PRN Reason: NAUSEA/VOMITING Simethicone (Mylicon) 80 mg PO BID PRN PRN PRN Reason: Gas Last Admin: 05/05/17 15:29 Dose: 80 mg Sodium Chloride () 5 - 30 ml IV UD PRN PRN Reason: SALINE FLUSH Last Admin: 05/06/17 16:57 Dose: 10 ml Tamsulosin HCl (Flomax) 0.8 mg PO DAILY@0830 [facility] Last Admin: 05/06/17 09:34 Dose: 0.8 mg - Past Medical History Past Medical History (Chronic Problems): Chronic Problems (Last Updated 04/23/17 @ 14:42 by Griselda Chou) Intertrigo (Chronic) abdominal wall skin crease intertrigo Localized adiposity (Chronic) 8 cm painful soft tissue mass pubic area Excessive body weight loss (Chronic) after gastric bypass procedure HTN (hypertension) (Chronic) Nephrolithiasis (Chronic) Ovarian cyst (Chronic) - Past Surgical History Surgical History: cholecystectomy, gastric bypass, - - gastric bypass 04/18/15,thyroid nodular surgery, I+D abdominal wall and pelvic mass 05/03/17, - Social History Smoking Status: Never smoker - Family History Maternal Family History: Family History (Last Updated 04/23/17 @ 14:58 by Griselda Chou) Mother Anxiety Bleeding disorder Depression Hypertension High cholesterol Cancer Father Diabetes Hypertension Grandfather Colon cancer Diabetes Heart disease History Items: Hypertension Paternal Family History: Family History (Last Updated 04/23/17 @ 14:58 by Griselda Chou) Mother Anxiety Bleeding disorder Depression Hypertension High cholesterol Cancer Father Diabetes Hypertension Grandfather Colon cancer Diabetes Heart disease History Items: Hypertension Patient Problems: Active and Suspected Problems (Last Updated 04/23/17 @ 14:42 by Griselda Chou) ERIKA (acute kidney injury) (Acute) Cellulitis of abdominal wall (Acute) Cellulitis of pubic region (Acute) - Physical Exam General: Alert, Oriented x3 HEENT: Atraumatic Oral: Moist Mucosa Neck: Supple, No JVD Lungs: Clear to auscultation, Normal air movement, No rhonchi, No wheeze Cardiovascular: Regular rate, Regular Rhythm, Normal S1, Normal S2, No murmurs Abdomen: Bowel Sounds Present, Soft, Non Tender, - - Wound VAC in place Extremities: No clubbing, No cyanosis, No edema Skin: No rashes Musculoskeletal: No Tenderness to Palpation of Joints or Extremities Lymphatic: No Cervical, Supraclavicular, or Inguinal Adenopathy Neurological: Cranial nerves II-XII grossly intact, Neuro grossly intact Psych/Mental Status: Normal Affect Vital Signs Temp Pulse Resp BP Pulse Ox 98.3 F 96 18 120/67 96 05/06/17 13:34 05/06/17 13:34 05/06/17 13:34 05/06/17 13:34 05/06/17 13:34 Oxygen Delivery Method Room Air Weight: 91.2 kg Body Mass Index (BMI) 32.3 Intake and Output for Last 24 Hours Intake Total 2126 / 2126 4895 / 4895 4385 / 4385 Output Total 1200 / 1200 Balance 926 / 926 4895 / 4895 4385 / 4385 Microbiology Past 72 Hours 05/03/17 Unknown Gram Stain - Final Tissue - Other Wound Culture - Final Laboratory Tests Past 24 Hrs WBC 7.7 RBC 3.04 L Hgb 8.2 L Hct 25.7 L MCV 84.5 MCH 27.0 MCHC 31.9 L RDW 16.0 H Assessment/Plan Active and Suspected Problems (Last Updated 04/23/17 @ 14:42 by Griselda Chou) ERIKA (acute kidney injury) (Acute) Cellulitis of abdominal wall (Acute) Cellulitis of pubic region (Acute) 1-acute kidney injury. Patient has normal creatinine at baseline.UA +1 protein Acute kidney injury is not oliguric. Creatinine is up to 3.8 mg/dL today. Acute kidney injury is most probably from vancomycin/sepsis- induced ATN No need for dialysis. I agree with discontinuation of diuretics and DANDRE inhibitor for now. I will discontinue potassium citrate since her potassium is 4.9. No need for renal replacement therapy. I will continue to monitor kidney function parameters along with urine output and electrolytes Keep mean arterial pressure more than 65. Avoid IV contrast if possible. Avoid NSAIDs. 2-hypertension. Blood pressure is well-controlled. No need for DANDRE inhibitor/ARB for now. We will continue to monitor. 3-cellulitis/this of the abdominal wall. Status post I AND D with wound VAC placement. ID is following for antibiotics. Thank you for the consult. I will continue to follow Please do not hesitate to call me with any question or concern at my cell phone [phone] Maikel Mireles MD 05/06/17 0387 <Electronically signed by Maikel Mireles MD> Date Maikel Mireles MD Cosigner Signature (if applicable): Date CC: Emperatriz Hernandez MD; Maikel Mireles MD; Saeid Davis MD; Susana Diaz III, MD; Emilie Felton MD; Bonilla Moreira M.D.; Ricardo Jackson M.D.; William Renee MD Signed CBC W/DIFF, AUTOMATED Collected: 05/06/2017 Status: F Source: [place] 6:10 AM [facility] REPOSITORY TYPE CODE TESTS RESULT OUT OF RANGE REFERENCE UNITS LAB L100.1000 4.4-11.0 K/mm3 Normal WBC 7.7 LAB L100.1200 4.2-5.4 M/mm3 Low RBC 3.04 LAB L100.1300 12.0-15.0 g/dl Low HGB 8.2 LAB L100.1400 37-47 % Low HCT 25.7 LAB L100.1500 81-99 fL Normal MCV 84.5 LAB L100.1600 27.0-32.0 pg Normal MCH 27.0 LAB L100.1700 32-36 g/gl Low MCHC 31.9 LAB L100.1810 11.6-14.6 % High RDW CV 16.0 LAB L100.1820 35.1-43.9 fl High RDW SD 48.1 LAB L100.1900 150-450 K/mm3 Normal PLT 439 LAB L100.2000 6.2-12.0 fl Normal MPV 10.3 LAB L100.2100 47-70 % Normal NEUT% 69.3 LAB L100.2200 19-41 % Low LY% 13.2 LAB L100.2300 0-10 % High MONO% 14.6 LAB L100.2400 0-5 % Normal EO% 2.3 LAB L100.2500 0-1 % Normal BASO% 0.5 LAB L100.2550 0.0-0.9 % Normal IM GRAN % 0.100 Result Comment: IG% - Immature Granulocytes (promyelocytes, myelocytes and metamyelocytes) > 1% indicates that a LEFT SHIFT is Present. LAB L100.2620 2.0-7.7 X10 3/uL Normal Absolute Neut 5.4 LAB L100.2720 0.83-4.51 X10 3/ul Normal Absolute Lymph 1.02 Performed By: #### L100.0100 #### [facility] [address] [place], [place], [address] BASIC METABOLIC Collected: 05/06/2017 Status: F Source: [place] PROFILE ([place]) 6:10 AM [facility] REPOSITORY TYPE CODE TESTS RESULT OUT OF RANGE REFERENCE UNITS LAB L501.0100 74-106 mg/dL Normal GLU 87 Result Comment: Please note revised GLUCOSE reference range effective 2017. LAB L501.1000 7-18 mg/dL Normal BUN 17 LAB L501.1100 0.55-1.02 mg/dL High CREAT,SERUM 3.87 Result Comment: The validity of the calculated GFR AND GFRAA in patients over 70 years has not been determined. Clinical correlation is essential. LAB L501.1110 >60 mL/min Low EST GFR 14 Result Comment: Non- GFR Calc LAB L501.1115 >60 mL/min Low EST GFR - AA 17 Result Comment: GFR Calc LAB L501.1255 ml/min Normal Estimated CRCL 19.72 LAB L501.1300 10-20 RATIO Low BUN/CRE 4.4 LAB L501.2200 8.5-10 mg/dL Low .1 CA 8.4 LAB L501.5300 136-14 mmol/L Normal 5 NA 138 LAB L501.5600 3.5-5. mmol/L Normal 1 K 4.9 LAB L501.5900 98-107 mmol/L Normal CL 103 LAB L501.6100 21.0-3 mmol/L Normal 2.0 CO2 26.0 LAB L501.6200 5-15 Normal GAP 9 Performed By: #### L500.2500 #### [facility] [address] [place], [address] CONSULTATION Observed: 05/05/2017 Status: F Source: [place] 1:03 PM [facility] REPOSITORY [facility] Medical Records Department [address] [place] [address] Consultation 05/05/17 1246 MR#: [id number] Acct: [id number] Name: TRAMAINE PENG Rep #: [id number] : 1985 32 From: William Renee MD PCP: Susana Diaz III, MD Status: ADM IN Y [id number] Problem List (1) Cellulitis of abdominal wall Status: Acute Reason for Consult: cellulitis Consulted by: Dr. Reyes History of Present Illness: The patient is a 32 year old F with prior gastric bypass in 2015, followed by panniculectomy 08/2016 at [facility] complicated post-op hematoma and then infected seroma. Taken back to OR at end of March by Dr. Mendieta for removal of painful suprapubic mass. About a week later, developed fever and chills with worsened redness and swelling around surgical site and pubic area. Admitted here 04/30, started on vanc/zosyn/clinda, changed to doxy/cipro on 05/02, now remains on vanc/zosyn. Taken to OR 05/[address] Mendieta for debridement of 13x2cm collection seen on CT. Wound vac placed. No further fever since admission. Cr has been increasing past 2 days. She does have h/o recurrent kidney stones; may have some R flank pain, but difficult to tell currently. Pubic redness slightly improved, but still significant swelling. PCR and cxs with MSSA. Full ROS performed and neg except as noted above. Mild headache. Some n/v this AM. - Medical History Past Medical History (Chronic Problems): Chronic Problems (Last Updated 04/23/17 @ 14:42 by Griselda Chou) Intertrigo (Chronic) abdominal wall skin crease intertrigo Localized adiposity (Chronic) 8 cm painful soft tissue mass pubic area Excessive body weight loss (Chronic) after gastric bypass procedure HTN (hypertension) (Chronic) Nephrolithiasis (Chronic) Ovarian cyst (Chronic) Allergies/Adverse Reactions: Allergies methocarbamol Allergy (Verified 04/30/17 09:40) Chest tightness gabapentin Adverse Reaction (Verified 04/30/17 09:40) MADE ME WALK SIDEWAYS ketorolac tromethamine [From Toradol] Adverse Reaction (Verified 04/30/17 09:40) Upset Stomach NSAIDS (Non-Steroidal Anti-Inflamma Adverse Reaction (Verified 04/30/17 09:40) gastric bipass not supposed to take tramadol Adverse Reaction (Verified 04/30/17 09:40) Upset Stomach Home Medications: Ambulatory Orders Medication Instructions Recorded Amitriptyline HCl [Elavil] 50 mg PO QHS PRN 04/30/17 - Social History Tobacco Use: non-smoker Vital Signs Temp Pulse Resp BP Pulse Ox 98.4 F 88 16 116/70 97 05/05/17 09:00 05/05/17 09:00 05/05/17 09:00 05/05/17 09:00 05/05/17 09:00 Oxygen Delivery Method Room Air Weight: 91.2 kg Body Mass Index (BMI) 32.3 Microbiology Past 72 Hours 05/03/17 Unknown Gram Stain - Final Tissue - Other Wound Culture - Final Laboratory Tests Past 24 Hrs WBC 6.5 RBC 3.04 L Hgb 8.2 L Hct 25.4 L MCV 83.6 MCH 27.0 MCHC 32.3 WBC RBC Hgb Hct MCV MCH MCHC RDW RDW Differential Plt Count MPV Sodium - Other Studies Radiology: [] reviewed Other Studies: [] Route of nutrition/ use of supplements: [] Nutritional Intake: [] IV Site: [] Adhikari Catheter: [] - Physical Exam General: Alert, Oriented x3, Cooperative, No apparent distress HEENT: Atraumatic, PERRLA, EOMI Neck: Supple, No Nodes Lungs: Clear to auscultation, Normal air movement Cardiovascular: Regular rate, Regular Rhythm, Murmur Abdomen: Bowel Sounds Present, Soft, Non Tender, Non-Distended Extremities: No edema Skin: - - Suprapubic wound vac in place; swelling and mild erythema over pubic area. No induration. IV Site: Peripheral, without redness Musculoskeletal: No Tenderness to Palpation of Joints or Extremities Neurological: Cranial nerves II-XII grossly intact - Assessment/Plan Antibiotics: [] Assessment/Plan: [] Active and Suspected Problems (Last Updated 04/23/17 @ 14:42 by Griselda Chou) ERIKA (acute kidney injury) (Acute) Cellulitis of abdominal wall (Acute) Cellulitis of pubic region (Acute) MSSA abd wall abscess/hematoma after surgery 04/20/[address] Mendieta - taken back to OR 05/03, cx and pcr (+) for MSSA. Now with ERIKA. Has h/o recurrent kidney stones. Urine eos and renal u/s pending. 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 Vanc has been held. Stop vanc/zosyn. Will change abx to cefazolin and flagyl for narrower coverage based on cx results and lower risk of nephrotoxicity. Thank you, will follow. 05/05/17 1303 <Electronically signed by William Renee MD> Date William Renee MD Cosigner Signature (if applicable): Date CC: Emperatriz Hernandez MD; Saeid Davis MD; Susana Diaz III, MD; Emilie Felton MD; Bonilla Moreira M.D.; Ricardo Jackson M.D.; William Renee MD Signed URINE SODIUM Collected: 05/05/2017 Status: F Source: HERB 12:17 PM [facility] REPOSITORY TYPE CODE TESTS RESULT OUT OF RANGE REFERENCE UNITS LAB L501.5500 Not Establ. mmol/L Normal UR NA 90 Performed By: #### L501.5500 #### [facility] [address] [place], [place], [address] CREATININE, URINE Collected: 05/05/2017 Status: F Source: HERB (RANDOM) 12:17 PM [facility] REPOSITORY TYPE CODE TESTS RESULT OUT OF RANGE REFERENCE UNITS LAB L501.1200 NO RANGE EST. mg/dL Normal UR CREAT 36.30 Performed By: #### L501.1200 #### [facility] [address] [place], [address] URINALYSIS, COMPLETE Collected: 05/05/2017 Status: F Source: HERB 12:17 PM [facility] REPOSITORY Order Comment: How was Urine Obtained? CLEAN CATCH TYPE CODE TESTS RESULT OUT OF RANGE REFERENCE UNITS LAB L400.3000 Yellow COLOR Normal Yellow LAB L400.3050 Clear Normal CLARITY Clear LAB L400.3200 Normal mg/dl Normal GLUCOSE, UR Normal LAB L400.3300 Negative mg/dL Normal BILIRUBIN URINE Negative LAB L400.3400 Negative mg/dl Normal KETONE UR Negative LAB L400.3465 1.002-1.030 Normal SP.GR. DIPSTX 1.005 LAB L400.3550 5.0 - 8.0 pH UR Normal 6.0 LAB L400.3600 Negative mg/dl High PROT 15 DIPSTX LAB L400.3700 Normal mg/dl Normal UROBILI Normal LAB L400.3750 Negative Normal NITRITE UR Negative LAB L400.3780 Negative /ul Normal OCCULT BLOOD-UR Negative LAB L400.3800 Negative /ul LEUK Normal ESTERASE Negative LAB L400.4050 0-5 /hpf WBC 0 Normal SEEN LAB L400.4100 0-5 /hpf 0 Normal RBC-UA SEEN LAB L400.4150 5-10 /hpf SQUAM Normal EPI 0-5 SEEN LAB L400.4300 None Seen /hpf Normal BACTERIA RARE LAB L400.4350 <or=2+ /hpf 0 Normal MUCUS, URINE SEEN Performed By: #### L400.0001 #### [facility] [address] [place], [address] CONSULTATION Observed: 05/05/2017 Status: F Source: HERB 11:45 AM [facility] REPOSITORY [facility] Medical Records Department [facility] [place] [address] Consultation 05/05/17 1126 MR#: [id number] Acct: [id number] Name: TRAMAINE PENG Rep #: [id number] : 1985 32 From: Salvatore Reyes DO PCP: Susana Diaz III, MD Status: ADM IN Y Location: MA3 [id number] Problem List (1) ERIKA (acute kidney injury) Status: Acute (2) Intertrigo Status: Chronic Comment: abdominal wall skin crease intertrigo (3) Localized adiposity Status: Chronic Comment: 8 cm painful soft tissue mass pubic area (4) Excessive body weight loss Status: Chronic Comment: after gastric bypass procedure (5) Cellulitis of pubic region Status: Acute (6) HTN (hypertension) Status: Chronic (7) Nephrolithiasis Status: Chronic (8) Ovarian cyst Status: Chronic Reason for Consult Date of Consultation: 05/05/17 Reason for Consultation: consult requested by Dr. Mendieta for ERIKA. History of Present Illness: The patient is a 32 year old F presents w abdominal pain, fever. Pt was found to have abd wall cellulitis on the . On the , she underwent an I+D of infected seroma/hematoma of the abdominal wall and pubic area by Dr. Mendieta. Pt was started on vancomycin on 05/03. On 05/04, her Creatinine jumped from 0.57 to 1.27; and today, her creatinine is 2.77. Pt does have a h/o chronic nephrolithiasis and may get exacerbations of her creatinine, but is currently w/o flank pain at this time. The patient's vancomycin has been d/c'd.[] Past Medical History Past Medical History (Chronic Problems): Chronic Problems (Last Updated 04/23/17 @ 14:42 by Griselda Chou) Intertrigo (Chronic) abdominal wall skin crease intertrigo Localized adiposity (Chronic) 8 cm painful soft tissue mass pubic area Excessive body weight loss (Chronic) after gastric bypass procedure HTN (hypertension) (Chronic) Nephrolithiasis (Chronic) Ovarian cyst (Chronic) Allergies methocarbamol Allergy (Verified 04/30/17 09:40) Chest tightness gabapentin Adverse Reaction (Verified 04/30/17 09:40) MADE ME WALK SIDEWAYS ketorolac tromethamine [From Toradol] Adverse Reaction (Verified 04/30/17 09:40) Upset Stomach NSAIDS (Non-Steroidal Anti-Inflamma Adverse Reaction (Verified 04/30/17 09:40) gastric bipass not supposed to take tramadol Adverse Reaction (Verified 04/30/17 09:40) Upset Stomach Home Medications: Ambulatory Orders Medication Instructions Recorded Amitriptyline HCl [Elavil] 50 mg PO QHS PRN 04/30/17 Surgical History: cholecystectomy, gastric bypass, - - gastric bypass 04/18/15,thyroid nodular surgery, I+D abdominal wall and pelvic mass 05/03/17, Smoking Status: Never smoker - *Family History Maternal History Items: Hypertension Paternal History Items: Hypertension Review of Systems Constitutional: Denies: Chills, Fever, Weight Change Eyes: Denies: Blurred vision, Double vision HEENT: Denies: Head Aches, Sinus Congestion, Sinus Drainage Cardiovascular: Denies: Chest Pain, Palpitations Respiratory: Denies: Cough, Shortness of breath at rest, Sputum production Gastrointestinal: Reports: Abdominal Pain - post-op, Vomiting. Denies: Diarrhea, Nausea Genitourinary: Denies: Dysuria, Hematuria Musculoskeletal: Denies: Joint Pain, Joint Tenderness Skin: Denies: Rash, Wounds Neurological: Denies: Numbness, Tingling, Focal weakness Hematologic/ Lymphatic: Denies: Easy Bruising, Easy Bleeding, Hx of blood clot Patient Problems: Active and Suspected Problems (Last Updated 04/23/17 @ 14:42 by Griselda Chou) ERIKA (acute kidney injury) (Acute) Cellulitis of abdominal wall (Acute) Cellulitis of pubic region (Acute) - Physical Exam General: Alert, Cooperative, No apparent distress HEENT: Atraumatic, Normocephalic Neck: No Nodes, Thyroid Normal Size and Texture Lungs: Clear to auscultation, Normal air movement, No rhonchi, No wheeze Cardiovascular: Regular rate, Regular Rhythm, Normal S1, Normal S2, No murmurs Abdomen: Bowel Sounds Present, Soft, Non Tender, Non-Distended, No Hepato-splenomegaly Extremities: No edema, No Calf Tenderness Psych/Mental Status: Normal Affect, Appropriate Vital Signs Temp Pulse Resp BP Pulse Ox 36.9 C 88 16 116/70 97 05/05/17 09:00 05/05/17 09:00 05/05/17 09:00 05/05/17 09:00 05/05/17 09:00 Oxygen Delivery Method Room Air Weight: 91.2 kg Body Mass Index (BMI) 32.3 Intake and Output for Last 24 Hours Intake Total 2107 / 2107 2126 / 2126 3040 / 3040 Output Total 720 / 720 1200 / 1200 Balance 1387 / 1387 926 / 926 3040 / 3040 Microbiology Past 72 Hours 05/03/17 Unknown Gram Stain - Final Tissue - Other Wound Culture - Final Laboratory Tests Past 24 Hrs WBC 6.5 RBC 3.04 L Hgb 8.2 L Hct 25.4 L MCV 83.6 MCH 27.0 MCHC 32.3 RDW 15.9 H Assessment/Plan Active and Suspected Problems (Last Updated 04/23/17 @ 14:42 by Griselda Chou) ERIKA (acute kidney injury) (Acute) Cellulitis of abdominal wall (Acute) Cellulitis of pubic region (Acute) 1. ERIKA: * I suspect related to the vancomycin given the timing * Vanc has been d/c'd * Additionally, I have d/c'd the patient's lisinopril and lasix * check urine studies, renal US * IVF * If worse 05/06, consider nephrology consult 2. Abd wall cellulitis * + MSSA * currently on Zosyn * consult ID for further recs given the ERIKA Thank you for the consult, will follow with you. Code Visit Inpatient Alisa BLOOM M: [id number] Init Hosp L2 05/05/17 1145 <Electronically signed by Salvatore Reyes DO> Date Salvatore Reyes DO [facility] Signature (if applicable): Date CC: Emperatriz Hernandez MD; Saeid Davis MD; Susana Diaz III, MD; Emilie Felton MD; Bonilla Moreira M.D.; Ricardo Jackson M.D. Signed KIDNEY AND BLADDER Observed: 05/05/2017 Status: F Source: HERB 11:26 AM [facility] REPOSITORY [facility] Imaging Services [address] [place] [address] Kidney and Bladder MR#: [id number] Acct: [id number] Name: TRAMAINE PENG Rep #: [id number] : 1985 F 32 From: Robert Wolfe MD PCP: Susana Diaz III, MD Status: ADM IN Study: Kidney and Bladder Date of Exam: 05/05/17 Exam# [id number] Ordering Dr: Salvatore Reyes DO STUDY: RENAL ULTRASOUND - COMPLETE REASON FOR EXAM: Female, 32 years old. TECHNIQUE: Ultrasound evaluation of the kidneys was performed with real-time and static diaz-scale imaging. COMPARISON: None. FINDINGS: RIGHT KIDNEY: with mild renal hypertrophy. The right kidney measures 14.1 x 7 x 6.4 cm. There is a normal cortex of the right kidney. The renalaki cortex measures 2.6 cm. There is no right renal mass or cyst. 6.5 mm nonobstructive right renal stone. There is no right hydronephrosis. DISTAL RIGHT URETER: There is non-visualization of the distal right ureter. There is no demonstrated right ureterovesical junction calculus. There is no demonstrated right ureteral jet. LEFT KIDNEY: with mild renal hypertrophy. The left kidney measures 15.1x5.9x6.2 cm. There is a normal cortex of the left kidney. The renal cortex measures 2.2 cm. There is no left renal mass or cyst. There are no left renal calculi. There is no left hydronephrosis. DISTAL LEFT URETER: There is non-visualization of the distal left ureter. There is no demonstrated left ureterovesical junction calculus. There is no demonstrated left ureteral jet. AORTA: There is obscuration of the abdominal aorta by overlying bowel gas I.V.C.: The IVC is obscured. BLADDER: Not seen US/Kidney and Bladder IMPRESSION: Nonobstructive right renal stone. Electronically Signed: Robert Wolfe MD at 18:23 EST , Service support , CC: Salvatore Reyes DO; Susana Diaz III, MD Manager Equity: Signed EOSINOPHIL CT. URINE Collected: 05/05/2017 Status: F Source: HERB 7:28 AM [facility] REPOSITORY Order Comment: CALLED 05/08/17 FOR SPECIMEN. WILL SEND DOWN WHEN COLLECTED. TYPE CODE TESTS RESULT OUT OF RANGE REFERENCE UNITS LAB L3100.6600 . % No Normal EOS CT Eosinophils Seen [id number] Result Comment: <5% few or none seen Performed at: - [facility] [address] [id number] [employer] Developer: Dre Rae PhD, Phone: [phone] Performed By: #### L3100.6600 #### [facility] (refer to report for specific site) refer to report for address and phone number CBC-COMPLETE BLOOD CNT Collected: 05/05/2017 Status: F Source: HERB NO DIFF 5:12 AM [facility] REPOSITORY TYPE CODE TESTS RESULT OUT OF RANGE REFERENCE UNITS LAB L100.1000 4.4-11.0 K/mm3 Normal WBC 6.5 LAB L100.1200 4.2-5.4 M/mm3 Low RBC 3.04 LAB L100.1300 12.0-15.0 g/dl Low HGB 8.2 LAB L100.1400 37-47 % Low HCT 25.4 LAB L100.1500 81-99 fL Normal MCV 83.6 LAB L100.1600 27.0-32.0 pg Normal MCH 27.0 LAB L100.1700 32-36 g/gl Normal MCHC 32.3 LAB L100.1810 11.6-14.6 % High RDW CV 15.9 LAB L100.1820 35.1-43.9 fl High RDW SD 47.2 LAB L100.1900 150-450 K/mm3 Normal PLT 410 LAB L100.2000 6.2-12.0 fl Normal MPV 10.1 Performed By: #### L100.0500 #### [facility] [address] [place], [address] BASIC METABOLIC Collected: 05/05/2017 Status: F Source: HERB PROFILE (BMP) 5:12 AM [facility] REPOSITORY TYPE CODE TESTS RESULT OUT OF RANGE REFERENCE UNITS LAB L501.0100 74-106 mg/dL Normal GLU 89 Result Comment: Please note revised GLUCOSE reference range effective 2017. LAB L501.1000 7-18 mg/dL Normal BUN 13 LAB L501.1100 0.55-1.02 mg/dL High CREAT,SERUM 2.77 Result Comment: The validity of the calculated GFR AND GFRAA in patients over 70 years has not been determined. Clinical correlation is essential. LAB L501.1110 >60 mL/min Low EST GFR 21 Result Comment: Non- GFR Calc LAB L501.1115 >60 mL/min Low EST GFR - AA 26 Result Comment: GFR Calc LAB L501.1255 ml/min Normal Estimated CRCL 27.55 LAB L501.1300 10-20 RATIO Low BUN/CRE 4.7 LAB L501.2200 8.5-10 mg/dL Low .1 CA 8.3 LAB L501.5300 136-14 mmol/L Normal 5 NA 138 LAB L501.5600 3.5-5. mmol/L Normal 1 K 4.3 LAB L501.5900 98-107 mmol/L Normal CL 102 LAB L501.6100 21.0-3 mmol/L Normal 2.0 CO2 27.0 LAB L501.6200 5-15 Normal GAP 9 Performed By: #### L500.2500 #### [facility] [address] [place], [address] VANCOMYCIN, TROUGH Collected: 05/04/2017 Status: F Source: HERB LEVEL 1:52 PM [facility] REPOSITORY Order Comment: Time Medication is to be Given? 1400 TYPE CODE TESTS RESULT OUT OF REFERENCE UNITS RANGE LAB L501.8820 5.0-15.0 ug/mL High VANCO, TROUGH 24.3 Result Comment: VANCOMYCIN STANDARED DRUG THERAPY TROUGH LEVEL: 5.0 - 15.0 mg/L VANCOMYCIN HIGH INTENSITY THERAPY TROUGH LEVEL: 15.0 - 20.0 mg/L High Intensity therapy recommended for serious life threatening infections include: - Meningitis -Endocarditis -Pneumonia (Ventilator/Healtcare Associated) -Sepsis PLEASE CONTACT PHARMACY SERVICES (#[id number]) FOR INTERPRETATION OF RESULTS. Performed By: #### L501.8820 #### [facility] [address] [place], [place], [address] CBC-COMPLETE BLOOD CNT Collected: 05/04/2017 Status: F Source: HERB NO DIFF 5:55 AM [facility] REPOSITORY TYPE CODE TESTS RESULT OUT OF RANGE REFERENCE UNITS LAB L100.1000 4.4-11.0 K/mm3 Normal WBC 5.7 LAB L100.1200 4.2-5.4 M/mm3 Low RBC 3.38 LAB L100.1300 12.0-15.0 g/dl Low HGB 9.2 LAB L100.1400 37-47 % Low HCT 28.0 LAB L100.1500 81-99 fL Normal MCV 82.8 LAB L100.1600 27.0-32.0 pg Normal MCH 27.2 LAB L100.1700 32-36 g/gl Normal MCHC 32.9 LAB L100.1810 11.6-14.6 % High RDW CV 15.6 LAB L100.1820 35.1-43.9 fl High RDW SD 46.7 LAB L100.1900 150-450 K/mm3 High PLT 464 LAB L100.2000 6.2-12.0 fl Normal MPV 10.4 Performed By: #### L100.0500 #### [facility] [address] [place], [place], [address] BASIC METABOLIC Collected: 05/04/2017 Status: F Source: HERB PROFILE (BMP) 5:55 AM [facility] REPOSITORY TYPE CODE TESTS RESULT OUT OF RANGE REFERENCE UNITS LAB L501.0100 74-106 mg/dL High GLU 114 Result Comment: Fasting Glucose result from 100 to 125 mg/dL suggests IMPAIRED HOMEOSTASIS per A.D.A. criteria. Please note revised GLUCOSE reference range effective 2017. LAB L501.1000 7-18 mg/dL Normal BUN 8 LAB L501.1100 0.55-1.02 mg/dL High CREAT,SERUM 1.27 Result Comment: The validity of the calculated GFR AND GFRAA in patients over 70 years has not been determined. Clinical correlation is essential. LAB L501.1110 >60 mL/min Low EST GFR 52 Result Comment: Non- GFR Calc LAB L501.1115 >60 mL/min Normal EST GFR - AA 63 Result Comment: GFR Calc LAB L501.1255 ml/min Normal Estimated CRCL 60.08 LAB L501.1300 10-20 RATIO Low BUN/CRE 6.3 LAB L501.2200 8.5-10 mg/dL Low .1 CA 8.3 LAB L501.5300 136-14 mmol/L Normal 5 NA 136 LAB L501.5600 3.5-5. mmol/L Normal 1 K 4.3 LAB L501.5900 98-107 mmol/L Normal CL 100 LAB L501.6100 21.0-3 mmol/L Normal 2.0 CO2 28.0 LAB L501.6200 5-15 Normal GAP 8 Performed By: #### L500.2500 #### [facility] [address] [facility]. [place], [place], [address] PROTHROMBIN TIME W/INR Collected: 05/03/2017 Status: F Source: [place] 10:50 AM [facility] REPOSITORY Order Comment: PT IS RECEIVING BLOOD SURGERY SCHEDULED FOR 1300 THEY ARE CONTINUING TO RUN BLOOD THROUGH SURGERY. TALKED WITH CINTHIA HE SAID TO DRAW AND PUT SPECIMAN NOTE ON. TYPE CODE TESTS RESULT OUT OF RANGE REFERENCE UNITS LAB L300.4150 11.7-14.9 SECONDS Normal PROTIME 14.2 LAB L300.4200 Normal INR 1.1 Performed By: #### L300.3900, L300.4310 #### [facility] [address] [place], [place], [address] PARTIAL THROMBOPLAST Collected: 05/03/2017 Status: F Source: [place] TIME 10:50 AM [facility] REPOSITORY Order Comment: PT IS RECEIVING BLOOD SURGERY SCHEDULED FOR 1300 THEY ARE CONTINUING TO RUN BLOOD THROUGH SURGERY. TALKED WITH CINTHIA HE SAID TO DRAW AND PUT SPECIMAN NOTE ON. TYPE CODE TESTS RESULT OUT OF RANGE REFERENCE UNITS LAB L300.4310 24.1-36.2 Seconds Normal PTT 33.4 Performed By: #### L300.3900, L300.4310 #### [facility] [address] [facility] [place], [address] TYPE AND SCREEN Collected: 05/03/2017 Status: F Source: [place] 7:45 AM [facility] REPOSITORY Order Comment: CMV NEG? N Number of units to transfuse: 2 Comments: I AND D of postop seroma Is there a >20% drop in pt's BP? N Is the pt's CVP (central venous pressure) <3 cm/H2O? N Is the EBL >/= 1000ml in adults or >/= 12ml/kg in children? N Is there an orthostatic change in pt's BP(SBP drop >10mmHg)? N Is pt's HR > 100 bpm? N Reason for Ordering Blood: Chronic Are the blood/blood products to be transfused? Y Is the patient having/had surgery? Y Anticipated time of surgery: 1430 Give When? When Ready Irradiated? N Leukodepleted? Y Surgery Date: 05/03/17 Type of Surgery: OTHER TYPE CODE TESTS RESULT OUT OF RANGE REFERENCE UNITS LAB B10.0800 A Normal BLOOD TYPE GEL NEGATIVE LAB B100.4000 Normal Antibody NEGATIVE Screen Performed By: #### B101.7450 #### [facility] [address] [place], [address] RC Collected: 05/03/2017 Status: F Source: HER[place] 7:45 AM [facility] REPOSITORY TYPE CODE TESTS RESULT OUT OF REFERENCE UNITS RANGE LAB U100.0000 [id number] TRANSFUSED PRODUCT: T AND S with Crossmatch, Red Cells COUNT: 2 Performed By: #### U100.0000 #### Non-[facility] - refer to report for specific site BASIC METABOLIC Collected: 05/03/2017 Status: F Source: HERB PROFILE (BMP) 5:05 AM [facility] REPOSITORY TYPE CODE TESTS RESULT OUT OF RANGE REFERENCE UNITS LAB L501.0100 74-106 mg/dL Normal GLU 93 Result Comment: Please note revised GLUCOSE reference range effective 2017. LAB L501.1000 7-18 mg/dL Low BUN 6 LAB L501.1100 0.55-1.02 mg/dL Normal CREAT,SERUM 0.57 Result Comment: The validity of the calculated GFR AND GFRAA in patients over 70 years has not been determined. Clinical correlation is essential. LAB L501.1110 >60 mL/min Normal EST GFR 131 Result Comment: Non- GFR Calc LAB L501.1115 >60 mL/min Normal EST GFR - AA 158 Result Comment: GFR Calc LAB L501.1255 ml/min Normal Estimated CRCL 133.87 LAB L501.1300 10-20 RATIO BUN/CRE Normal 10.5 LAB L501.2200 8.5-10 mg/dL Low .1 CA 8.3 LAB L501.5300 136-14 mmol/L 5 NA Normal 136 LAB L501.5600 3.5-5. mmol/L 1 K Normal 3.7 LAB L501.5900 98-107 mmol/L CL Normal 99 LAB L501.6100 21.0-3 mmol/L 2.0 CO2 Normal 28.0 LAB L501.6200 5-15 GAP Normal 9 Performed By: #### L500.2500 #### [facility] [address] [place], [address] CBC-COMPLETE BLOOD CNT Collected: 05/03/2017 Status: F Source: HERB NO DIFF 5:05 AM [facility] REPOSITORY TYPE CODE TESTS RESULT OUT OF RANGE REFERENCE UNITS LAB L100.1000 4.4-11.0 K/mm3 Normal WBC 5.8 LAB L100.1200 4.2-5.4 M/mm3 Low RBC 2.79 LAB L100.1300 12.0-15.0 g/dl Low HGB 7.4 LAB L100.1400 37-47 % Low HCT 23.2 LAB L100.1500 81-99 fL Normal MCV 83.2 LAB L100.1600 27.0-32.0 pg Low MCH 26.5 LAB L100.1700 32-36 g/gl Low MCHC 31.9 LAB L100.1810 11.6-14.6 % High RDW CV 16.0 LAB L100.1820 35.1-43.9 fl High RDW SD 47.4 LAB L100.1900 150-450 K/mm3 Normal PLT 407 LAB L100.2000 6.2-12.0 fl Normal MPV 10.5 Performed By: #### L100.0500 #### [facility] [address] [place], [place], [id number] MRSA WOUND DNA BY Collected: 05/03/2017 Status: F Source: HERB PCR 12:00 AM [facility] REPOSITORY Order Comment: Comments: INFECTED SEROMA/HEMATOMA PUBIC AREA TYPE CODE TESTS RESULT OUT OF RANGE REFERENCE UNITS LAB L8200.1100 Negative Normal MRSA Negative RESULT LAB L8200.1150 Negative High SA RESULT POSITIVE Performed By: #### L8200.1075 #### [facility] [address] [place], [address] Observed: 05/03/2017 Status: F Source: HERB CULTURE, DEEP WOUND 12:00 AM [facility] REPOSITORY Order Date: 10/21/16 Comments: INFECTED SEROMA/HEMATOMA PUBIC AREA Gram Stain Gram Stain 4+ White Blood Cells 4+ Red Blood Cells No organisms seen Wound Culture ORGANISM 1: Staphylococcus aureus Amount Growth 1+ Staphylococcus aureus: REACTION Benzylpenicillin NF >=0.5 R Cefoxitin *NF - Clindamycin $$ <=0.25 S Inducable Clindamycin Resistan - Erythromycin $ 0.5 S Gentamicin $ <=0.5 S Levofloxacin $ 0.25 S Linezolid $$$$ 2 S Moxifloxicin *NF <=0.25 S Oxacillin NF <=0.25 S Tigecycline $$$$ <=0.12 S Rifampin $$ <=0.5 S Tetracycline NF <=1 S Trimethoprim/Sulfametho $ <=10 S Vancomycin $ 1 S (NF) indicates non-formulary drug at [facility]. Approval by Infectious Disease Specialist required before non-formulary drugs may be ordered and/or dispensed. * CLSI guidelines does not recommend testing of cephalosporins. This interpretation is deduced from Beta-lactam/penicillin results. Cult, Anaerobic No anaerobic bacteria isolated. Performed By: #### M100.1500, M600.1900 #### [facility] [address] [place], [address] Observed: 05/03/2017 Status: F Source: HERB CULTURE, FUNGUS W/ 12:00 AM [facility] [id number] REPOSITORY Comments: INFECTED SEROMA/HEMATOMA PUBIC AREA Is this test to exclude patient from TB Isolation? N Cu,[id number] TESTING PERFORMED AT [facility]. ORIGINAL REPORT ON FILE IN LAB CONTAINS ADDITIONAL TEST SITE INFORMATION. CUF No yeast or mold isolated after [address] TESTING PERFORMED AT [facility]. ORIGINAL REPORT ON FILE IN LAB CONTAINS ADDITIONAL TEST SITE INFORMATION. Fungus Stain No yeast or mold observed. Performed By: #### M100.1500, M600.1900 #### [facility] [address] [place], [address] THROMBUS Observed: 05/03/2017 Status: F Source: [place] 12:00 AM [facility] REPOSITORY Patient: TRAMAINE PENG : 1985 () Acct Num: [id number] Phys: Gigi Mendieta MD Unit Num: [id number] Loc: MS3 SR436-3 Specimen: [id number] Received: 05/03/171509 Spec Type: THROMBUS TISSUES TISSUES: BLOOD CLOT, NOS GROSS DESCRIPTION Received in fixative is one container labeled with the patient's name and designated hematoma of pubic area. The specimen consists of multiple irregular fragments of yellow-pink soft tissue ranging in size from 1.5 to 16 cm. The largest fragment contains an ellipse of unremarkable skin with a healed scar. The scar measures 14 cm in greatest dimension. Also present in the specimen is a blood clot measuring 5 x 4 x 2 cm. No mass lesions are identified. Bookkeeping Machine Operator sections are submitted in one cassette. / AM:lucinda 03/08 TC:2 CPT: 67201 HEADER OPERATION: Incision and drainage seroma/hematoma pubic area PRE-OP DIAGNOSIS: Infected seroma pubic area TISSUE SUBMITTED: Infected seroma/hematoma pubic area MICROSCOPIC DESCRIPTION Slides are reviewed. MICROSCOPIC DIAGNOSIS Infected seroma/hematoma of pubic area, excision: Skin with ulceration and associated acute and chronic inflammation, fibrosis and histiocytic reaction. Organizing hematoma with associated acute inflammation. AM:lucinda 05/04/17 Signed Aubrey Danis 05/04/17 <signature on file> Performed By: #### PTHRO #### [facility] [address] [place], [address] OPERATIVE REPORT Observed: 05/02/2017 Status: F Source: [place] 9:37 PM [facility] REPOSITORY [facility] Medical Records Department [address] [place] [address] Operative Report 04/20/172039 MR#: [id number] Acct: [id number] Name: TRAMAINE PENG Rep #: [id number] : 1985 32 From: Gigi Mendieta MD PCP: Susana Diaz III, MD Status: [facility] [place] [facility] [place] Operation Date of Procedure: 04/20/17 Pre-Operative Diagnosis: 1. 8 cm painful soft tissue mass pubic area. 2. 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 3. Abdominal wall skin crease intertrigo. Post-Operative Diagnosis: Same. Surgery/Procedure Performed:: Excision 8 cm painful soft tissue mass pubic area with 20 cm complex closure. Description of Surgical Findings:: 32-year-old woman presents with a painful soft tissue mass on her pubic area. This mass first developed after abdominal surgery done earlier this summer. Back in 2016 she had a gastric bypass procedure including clinic. It was a laparoscopic Og-en-Y procedure. At that time she weighed about 380 pounds and today she weighs about 200 pounds. In August 2016 she underwent an abdominal panniculectomy. After surgery she developed some bleeding was taken back to surgery the same day where she underwent incision and drainage of postop hematoma. She did okay postoperatively initially for about a month. At the end of September she noticed increased pain and redness and swelling in the right side of her abdominal wall near the incision. She went back to surgery on October 20, 2016 where she underwent incision and drainage of infected abdominal seroma. She was treated with antibiotics and wound care until healed. Throughout these procedures she developed increased scarring in the lower anterior abdominal wall area and this exacerbated her painful symptomatology in her pubic area where a large soft tissue masses located. She denies any recent infection of the soft tissue mass. Denies any trauma. Denies any drainage. Patient denies any fever. The patient was informed of the risks and complications of the procedure including alternatives to surgery. These were discussed with the patient personally. The patient voices understanding and wishes to proceed. Some of the risks and complications were included in a form from the [employer]. I used Elin absorbable hemostat, (2 vials). Reference Number - [id number]. Lot Number - [id number]. Expiration - January 16, 2022. testing and regulating chief: Danyell Kelly. Type of Anesthesia:: General Specimen's removed: Painful soft tissue mass pubic area to Pathology. Drains: Fidelia x 2. Estimated Blood Loss (mL): 100 ml. Description of Procedure: Patient was taken to OR in supine position and was placed under general anesthesia. Her lower anterior abdominal wall and pubic area were prepped and draped in the usual fashion. SCD's were placed for DVT prophylaxis. Perioperative antibiotics were given intravenously. Markings were made through the horizontal scar and a horizontal ellipse was marked out down toward the pubic mass. These markings were infiltrated with xylocaine with epinephrine. After waiting 5 minutes for the anesthetic to take effect, Incisions were made through the subcutaneous tissue until the abdominal wall fascia was seen. I then dissected inferiorly into the pubic area. There was a large soft tissue mass that was sharply dissected free off the fascia and the overlying subcutaneous tissue. The soft tissue mass was sent to Pathology for analysis to rule out carcinoma. Hemostasis was obtained with electrocautery. Dissection stopped short of the labial and vaginal area. Due to the large size of the cavity after surgical excision, I sprayed the wound with two vials of Elin absorbable hemostat to minimize seroma formation postoperatively. I then placed two size 15 Fidelia drains placed through separate incisions inferolaterally and secured to the skin with 3-0 Nylon suture. The lower abdominal incision was closed in a multiple layer complex fashion with 2-0 Vicryl figure of eight interrupted sutures for the underlying Rubens's fascia layer. The deep dermis and subcutaneous tissue was approximated with 3-0 Monocryl interrupted sutures. The skin was approximated with 3-0 V-lock unidirectional barbed running subcuticular suture. This was followed by Histoacryl skin tissue adhesive. Kerlix gauze dresing was applied followed by ABD pads and Medipore tape dressing followed by a compression abdominal binder. Due to the extent of the dissection, I feel she should be admitted for a surgical observation overnight stay in the hospital for IV pain control and to watch the wound area for possible postop bleeding issues or seroma issues. She will have the drains removed in 14 days. Grafts/Implants Used: None. - Complications None. - Admit VTE Documentation VTE Present on Admission: No VTE Mechan Device Prophylaxis: SCD's VTE Pharm Prophylaxis ordered?: Yes Code Visit Surgery Charges CPT - 31924 ICD-10 - E65, R63.4, L30.4 05/02/17 2137 <Electronically signed by Gigi Mendieta MD> Date Gigi Mendieta MD CC: Susana Diaz III, MD; Gigi Mendieta MD Signed CBC-COMPLETE BLOOD CNT Collected: 05/02/2017 Status: F Source: [place] NO DIFF 6:08 AM [facility] REPOSITORY TYPE CODE TESTS RESULT OUT OF RANGE REFERENCE UNITS LAB L100.1000 4.4-11.0 K/mm3 Normal WBC 7.4 LAB L100.1200 4.2-5.4 M/mm3 Low RBC 3.12 LAB L100.1300 12.0-15.0 g/dl Low HGB 8.4 LAB L100.1400 37-47 % Low HCT 25.9 LAB L100.1500 81-99 fL Normal MCV 83.0 LAB L100.1600 27.0-32.0 pg Low MCH 26.9 LAB L100.1700 32-36 g/gl Normal MCHC 32.4 LAB L100.1810 11.6-14.6 % High RDW CV 16.3 LAB L100.1820 35.1-43.9 fl High RDW SD 48.3 LAB L100.1900 150-450 K/mm3 Normal PLT 418 LAB L100.2000 6.2-12.0 fl Normal MPV 11.0 Performed By: #### L100.0500, L500.2500 #### [facility] [address] [place], [address] BASIC METABOLIC Collected: 05/02/2017 Status: F Source: [place] PROFILE (BMP) 6:08 AM [facility] REPOSITORY TYPE CODE TESTS RESULT OUT OF RANGE REFERENCE UNITS LAB L501.0100 74-106 mg/dL Normal GLU 87 Result Comment: Please note revised GLUCOSE reference range effective 2017. LAB L501.1000 7-18 mg/dL Low BUN 6 LAB L501.1100 0.55-1.02 mg/dL Normal CREAT,SERUM 0.62 Result Comment: The validity of the calculated GFR AND GFRAA in patients over 70 years has not been determined. Clinical correlation is essential. LAB L501.1110 >60 mL/min Normal EST GFR 120 Result Comment: Non- GFR Calc LAB L501.1115 >60 mL/min Normal EST GFR - AA 145 Result Comment: GFR Calc LAB L501.1255 ml/min Normal Estimated CRCL 123.08 LAB L501.1300 10-20 RATIO Low BUN/CRE 9.7 LAB L501.2200 8.5-10 mg/dL Low .1 CA 8.4 LAB L501.5300 136-14 mmol/L 5 NA Normal 138 LAB L501.5600 3.5-5. mmol/L 1 K Normal 3.8 LAB L501.5900 98-107 mmol/L CL Normal 102 LAB L501.6100 21.0-3 mmol/L 2.0 CO2 Normal 28.0 LAB L501.6200 5-15 GAP Normal 8 Performed By: #### L100.0500, L500.2500 #### [facility] [address] [place], [place], [address] VANCOMYCIN, TROUGH Collected: 05/02/2017 Status: F Source: [place] LEVEL 6:08 AM [facility] REPOSITORY Order Comment: Time Medication is to be Given? 0700 TYPE CODE TESTS RESULT OUT OF REFERENCE UNITS RANGE LAB L501.8820 5.0-15.0 ug/mL High VANCO, TROUGH 16.5 Result Comment: VANCOMYCIN STANDARED DRUG THERAPY TROUGH LEVEL: 5.0 - 15.0 mg/L VANCOMYCIN HIGH INTENSITY THERAPY TROUGH LEVEL: 15.0 - 20.0 mg/L High Intensity therapy recommended for serious life threatening infections include: - Meningitis -Endocarditis -Pneumonia (Ventilator/Healtcare Associated) -Sepsis PLEASE CONTACT PHARMACY SERVICES (#[phone]) FOR INTERPRETATION OF RESULTS. Performed By: #### L501.8820 #### [facility] [address] [facility]. [place], [place], [address] CBC-COMPLETE BLOOD CNT Collected: 05/01/2017 Status: F Source: [place] NO DIFF 6:37 AM [facility] REPOSITORY TYPE CODE TESTS RESULT OUT OF RANGE REFERENCE UNITS LAB L100.1000 4.4-11.0 K/mm3 Normal WBC 9.9 LAB L100.1200 4.2-5.4 M/mm3 Low RBC 3.18 LAB L100.1300 12.0-15.0 g/dl Low HGB 8.3 LAB L100.1400 37-47 % Low HCT 26.4 LAB L100.1500 81-99 fL Normal MCV 83.0 LAB L100.1600 27.0-32.0 pg Low MCH 26.1 LAB L100.1700 32-36 g/gl Low MCHC 31.4 LAB L100.1810 11.6-14.6 % High RDW CV 16.8 LAB L100.1820 35.1-43.9 fl High RDW SD 51.7 LAB L100.1900 150-450 K/mm3 Normal PLT 380 LAB L100.2000 6.2-12.0 fl Normal MPV 10.2 Performed By: #### L100.0500 #### [facility] [address] [place], [address] BASIC METABOLIC Collected: 05/01/2017 Status: F Source: [place] PROFILE (BMP) 6:37 AM [facility] REPOSITORY TYPE CODE TESTS RESULT OUT OF RANGE REFERENCE UNITS LAB L501.0100 74-106 mg/dL Normal GLU 98 Result Comment: Please note revised GLUCOSE reference range effective 2017. LAB L501.1000 7-18 mg/dL Normal BUN 9 LAB L501.1100 0.55-1.02 mg/dL Low CREAT,SERUM 0.54 Result Comment: The validity of the calculated GFR AND GFRAA in patients over 70 years has not been determined. Clinical correlation is essential. LAB L501.1110 >60 mL/min Normal EST GFR 141 Result Comment: Non- GFR Calc LAB L501.1115 >60 mL/min Normal EST GFR - AA 170 Result Comment: GFR Calc LAB L501.1255 ml/min Normal Estimated CRCL 141.31 LAB L501.1300 10-20 RATIO BUN/CRE Normal 16.8 LAB L501.2200 8.5-10 mg/dL Low .1 CA 8.0 LAB L501.5300 136-14 mmol/L 5 NA Normal 136 LAB L501.5600 3.5-5. mmol/L 1 K Normal 3.8 LAB L501.5900 98-107 mmol/L CL Normal 103 LAB L501.6100 21.0-3 mmol/L 2.0 CO2 Normal 26.0 LAB L501.6200 5-15 GAP Normal 7 Performed By: #### L500.2500, L506.0500 #### [facility] [address] [place], [address] PREALBUMIN Collected: 05/01/2017 Status: F Source: [place] 6:37 AM [facility] REPOSITORY TYPE CODE TESTS RESULT OUT OF REFERENCE UNITS RANGE LAB L506.0500 20.0-40.0 mg/dL Low PREALBUMIN 9.0 Performed By: #### L500.2500, L506.0500 #### [facility] [address] [place], [address] EMERGENCY DEPARTMENT Observed: 04/30/2017 Status: F Source: [place] SUMMARY 12:22 PM [facility] REPOSITORY [facility] Medical Records Department [address] [place] [address] Emergency Department Summary 04/30/17 1140 MR#: [id number] Acct: [id number] Name: TRAMAINE PENG Rep #: [id number] : 1985 32 From: Norm Espinosa MD PCP: Susana Diaz III, MD Status: REG ER - ER Visit Summary Date of Service: 04/30/17 Chief Complaint: Zentz with left lower quadrant abdominal pain, fullness, fever and increased drainage History of Present Illness: The patient is a 32 F status post gastric bypass surgery many years ago and underwent abdominoplasty to remove excess skin August 2016 presents because of fever, left lower quadrant fullness and pain with increased drainage since MARIE drain was removed. She still has [address] There is serous bloody material noted in the drain. She denies headache, photophobia sips of her neck. She denies rhinorrhea, earache or sore throat. She denies cough or shortness of breath. She denies chest pain. She denies dysuria, urgency or hematuria. She denies any back or flank pain. She does report increased drainage from the remaining MARIE site. Physical Examination: Signs are remarkable for a blood pressure 138/91 heart rate is 111. She appears pale and ill. Head is atraumatic normocephalic. Pupils are equal round reactive. Extraocular muscles are intact. Interval appear pale. TMs are pearly white with landmarks noted. Nares patent with no drainage. Posterior pharynx without erythema or exudate. Uvula is midline. There is no dysphonia or dysphasia. Trachea is midline. There is no stridor with auscultation of the neck. Heart is rapid and regular without murmur, gallop or rub. S1 and S2 are normal. Lungs are clear to auscultation with good movement of air bilaterally. It is remarkable tenderness and fullness in left lower quadrant. There is erythema of the skin with increased warmth. There is minimal drainage from the MARIE drainage site. There is no peritoneal findings. There is no CVA tenderness noted. Neuro exam is nonfocal. Test Results: White count is elevated 14.9 thousand with 83 segs no bands. H AND H is 10.4 and 32.2 which is an improvement from prior. BMP and lactate are normal. CT of the pelvis reveals a fluid collection consistent with a seroma. Emergency Department Course and Treatment: Planes of fever chills appears pale a CBC was obtained to assess white count and H AND H. BMP to evaluate electrolytes and specifically BUN and creatinine. Because of the fullness tenderness warmth with increased drainage a CT of the pelvis with IV contrast was obtained to evaluate for hematoma versus abscess versus cellulitis. Treatment Plan: Was discussed Dr. jeffrey. He was informed of patient's history, physical findings diagnostic results. He requested admission. Therefore, she received 60 mg of clindamycin IV piggyback. Will put in admit orders and see her on the floor. Disposition: [facility] admit Impression: 1. Postop wound infection 2. Sepsis line 3. Sinus tachycardia documented on monitor This note was generated with Snapw[employer] dictation software. It may contain incorrect words, spelling, and punctuation that were not noted in review of the chart prior to signing ED Disposition - Plan for ED Patient: Chief Complaint: Wound Check Referrals: Susana Diaz III, MD [Primary Care Provider] - What to do if you have Problems For any increased pain, shortness of breath, bleeding, nausea or vomiting, chest pain, or any unexpected problems, contact your Primary Care Provider. Call [facility] ([phone]) or report to the closest Emergency Room. Call 911 if necessary. 04/30/17 1222 <Electronically signed by Norm Espinosa MD> Date Norm Espinosa MD Cosigner Signature (If Indicated): Date CC: Susana Diaz III, MD; Gigi Mendieta MD CBC W/DIFF, AUTOMATED Collected: 04/30/2017 Status: F Source: [place] 10:40 AM [facility] REPOSITORY TYPE CODE TESTS RESULT OUT OF RANGE REFERENCE UNITS LAB L100.1000 4.4-11.0 K/mm3 High WBC 14.9 LAB L100.1200 4.2-5.4 M/mm3 Low RBC 3.96 LAB L100.1300 12.0-15.0 g/dl Low HGB 10.4 LAB L100.1400 37-47 % Low HCT 32.2 LAB L100.1500 81-99 fL Normal MCV 81.3 LAB L100.1600 27.0-32.0 pg Low MCH 26.3 LAB L100.1700 32-36 g/gl Normal MCHC 32.3 LAB L100.1810 11.6-14.6 % High RDW CV 16.5 LAB L100.1820 35.1-43.9 fl High RDW SD 48.2 LAB L100.1900 150-450 K/mm3 High PLT 455 LAB L100.2000 6.2-12.0 fl Normal MPV 10.8 LAB L100.2100 47-70 % High NEUT% 82.4 LAB L100.2200 19-41 % Low LY% 6.9 LAB L100.2300 0-10 % Normal MONO% 9.9 LAB L100.2400 0-5 % Normal EO% 0.3 LAB L100.2500 0-1 % Normal BASO% 0.3 LAB L100.2550 0.0-0.9 % Normal IM GRAN % 0.200 Result Comment: IG% - Immature Granulocytes (promyelocytes, myelocytes and metamyelocytes) > 1% indicates that a LEFT SHIFT is Present. LAB L100.2620 2.0-7.7 X10 3/uL High Absolute Neut 12.2 LAB L100.2720 0.83-4.51 X10 3/ul Normal Absolute Lymph 1.03 Performed By: #### L100.0100 #### [facility] [address] [place], [address] BASIC METABOLIC Collected: 04/30/2017 Status: F Source: [place] PROFILE (BMP) 10:40 AM [facility] REPOSITORY TYPE CODE TESTS RESULT OUT OF RANGE REFERENCE UNITS LAB L501.0100 74-106 mg/dL Normal GLU 96 Result Comment: Please note revised GLUCOSE reference range effective 2017. LAB L501.1000 7-18 mg/dL Normal BUN 14 LAB L501.1100 0.55-1.02 mg/dL Normal CREAT,SERUM 0.60 Result Comment: The validity of the calculated GFR AND GFRAA in patients over 70 years has not been determined. Clinical correlation is essential. LAB L501.1110 >60 mL/min Normal EST GFR 124 Result Comment: Non- GFR Calc LAB L501.1115 >60 mL/min Normal EST GFR - AA 150 Result Comment: GFR Calc LAB L501.1255 ml/min Normal Estimated CRCL 127.18 LAB L501.1300 10-20 RATIO High BUN/CRE 23.4 LAB L501.2200 8.5-10 mg/dL .1 CA Normal 8.6 LAB L501.5300 136-14 mmol/L 5 NA Normal 136 LAB L501.5600 3.5-5. mmol/L 1 K Normal 4.1 LAB L501.5900 98-107 mmol/L CL Normal 102 LAB L501.6100 21.0-3 mmol/L 2.0 CO2 Normal 26.0 LAB L501.6200 5-15 GAP Normal 8 Performed By: #### L500.2500 #### [facility] [address] [place], [address] LACTIC ACID Collected: 04/30/2017 Status: F Source: [place] 10:40 AM [facility] REPOSITORY Order Comment: Yes/No query for Sepsis Lactate Rule Y TYPE CODE TESTS RESULT OUT OF RANGE REFERENCE UNITS LAB L503.6005 0.4-2.0 mmol/L Normal LACTIC ACID 1.2 Performed By: #### L503.6005 #### [facility] [address] [place], [address] PELVIS WITH IV Observed: 04/30/2017 Status: F Source: [place] CONTRAST 10:11 AM [facility] REPOSITORY [facility] Imaging Services [address] [place] [address] Pelvis WITH IV Contrast MR#: [id number] Acct: [id number] Name: TRAMAINE PENG Rep #: [id number] : 1985 F 32 From: Demetrius Brandon MD PCP: Susana Diaz III, MD Status: REG ER Study: Pelvis WITH IV Contrast Date of Exam: 04/30/17 Exam# [id number] Ordering Dr: Norm Espinosa MD STUDY: CT PELVIS WITH CONTRAST REASON FOR EXAM: Female, 32 years old. Left groin pain with swelling and fever. Recent excessive skin removal. RADIATION DOSAGE (If Supplied By Facility): CTDIvol = ( 20.60 ) mGy, DLP = ( 1023.93 ) mGycm TECHNIQUE: Transaxial imaging of the pelvis was performed without oral contrast. 100 ml of Isovue 300 contrast was administered intravenously. Individualized dose optimization techniques were used for this CT. COMPARISON: Comparison is made with prior examination dated 2017. FINDINGS: Normal urinary bladder. There is a 2.4 cm x 2.2 cm cyst in the left ovary. A dominant follicle is seen in the right ovary. Normal visualized small intestine. Normal visualized colon. There is no pelvic fluid. There is no pelvic lymphadenopathy or mass lesion. Normal visualized pelvic arteries. There is a 12.9 cm x 2.2 cm fluid collection in the subcutaneous tissues in the anterior pelvic wall. A drainage catheter is seen within it. This most likely represents a postoperative seroma. This extends in to the mons pubis. Normal osseous structures. CT/Pelvis WITH IV Contrast IMPRESSION: Subcutaneous fluid collection as described. A drainage catheter is seen within. This most likely represents a postoperative seroma. Electronically Signed: Demetrius Brandon MD at 11:27 EST Tel [phone], Service support , CC: Susana Diaz III, MD; Norm Espinosa MD Manager Equity: Signed 12 LEAD ELECTROCARDIOGRAM Observed: 04/27/2017 Status: F Source: [place] 8:43 AM [facility] REPOSITORY [facility] Cardiovascular Services [facility] [place] [address] 12 Lead EKG 04/24/17 1608 MR#: [id number] Acct: [id number] Name: TRAMAINE PENG Rep #: [id number] : 1985 32 From: Arias Cowan MD Attending Dr: Status: DEP ER Ordering Dr: Bacilio Mae MD Date: 04/24/17 Location: ED Sex: F C Admitted: Test Reason : WEAKNESS Blood Pressure : / mmHG Vent. Rate : 087 BPM Atrial Rate : 087 BPM P-R Int : 150 ms QRS Dur : 088 ms QT Int : 366 ms P-R-T Axes : 046 045 018 degrees QTc Int : 440 ms Normal sinus rhythm Normal ECG Confirmed by ARIAS COWAN MD ([id number]), editor magazine [employer] ([id number]) on 04/27/2017 8:42:20 AM Referred By: SHADI Confirmed By:ARIAS COWAN MD 04/27/17 0842 Date Arias Cowan MD CC: Susana Diaz III, MD; Bacilio Mae MD Signed DISCHARGE INSTRUCTION Observed: 04/24/2017 Status: F Source: [place] 6:14 PM [facility] Medical Records Department [address] [place] [address] Discharge Instruction 04/24/171812 MR#: [id number] Acct: [id number] Name: TRAMAINE PENG Rep #: [id number] : 1985 32 From: Bacilio Mae MD PCP: Susana Diaz III, MD Status: REG ER ED Disposition - Plan for ED Patient: Chief Complaint: Weakness Instructions: ED Weakness UKO, Anemia Referrals: Susana Diaz III, MD [Primary Care Provider] - Gigi Mendieta MD [STAFF PHYSICIAN] - What to do if you have Problems For any increased pain, shortness of breath, bleeding, nausea or vomiting, chest pain, or any unexpected problems, contact your Primary Care Provider. Call [facility] ([phone]) or report to the closest Emergency Room. Call 911 if necessary. 04/24/171813 <Electronically signed by Bacilio Mae MD> Date Bacilio Mae MD Cosigner Signature (If Indicated): Date CC: Susana Diaz III, MD EMERGENCY DEPARTMENT Observed: 04/24/2017 Status: F Source: [place] SUMMARY 6:13 PM [facility] REPOSITORY [facility] Medical Records Department [address] [place] [address] Emergency Department Summary 04/24/171810 MR#: [id number] Acct: [id number] Name: TRAMAINE PENG Rep #: [id number] : 1985 32 From: Bacilio Mae MD PCP: Susana Diaz III, MD Status: REG ER - ER Visit Summary Date of Service: 04/24/17 Chief Complaint: Dizzy, pale, tired History of Present Illness: The patient is a 32 F who is concerned about possible anemia. 4 days ago she had abdominal surgery for a lipoma. Postoperatively her hemoglobin was 8.7. She states that since that time she has just generally felt more tired and feels she is more pale and has had intermittent lightheadedness. She denies any fever nausea or vomiting. She did have some diarrhea this morning. She called the hospital but was unable to contact her surgeon so presented here to the emergency department. She notes thin red drainage at her MARIE drains. She does complain of some increased lower abdominal pain but no drainage from the wound. Physical Examination: Afebrile vitals are stable Heart regular rate and rhythm Lungs are clear Abdomen soft Lower abdominal incisions clean dry and intact she has 2 MARIE drains which have serosanguineous drainage she does have some tenderness along the incision but I do not appreciate any fluctuance induration or erythema at the wound edges Test Results: Laboratory studies notable for hemoglobin 10.0. Orthostatic vital signs negative. EKG shows normal sinus rhythm at a rate of 87. Emergency Department Course and Treatment: Patient was treated with IV fluids. Her hemoglobin is improved. She has no evidence of wound infection. She was advised on supportive care. She understands to return for new or worsening symptoms. I did contact her plastic surgeon who asked that she call the office for follow-up next week. Treatment Plan: [] Disposition: Discharge Impression: Fatigue History of anemia Postoperative abdominal pain This note was generated with Snap[employer] dictation software. It may contain incorrect words, spelling, and punctuation that were not noted in review of the chart prior to signing ED Disposition - Plan for ED Patient: Chief Complaint: Weakness Referrals: Susana Diaz III, MD [Primary Care Provider] - What to do if you have Problems For any increased pain, shortness of breath, bleeding, nausea or vomiting, chest pain, or any unexpected problems, contact your Primary Care Provider. Call [facility] ([phone]) or report to the closest Emergency Room. Call 911 if necessary. 04/24/17 1813 <Electronically signed by Bacilio Mae MD> Date Bacilio Mae MD Cosigner Signature (If Indicated): Date CC: Susana Diaz III, MD CBC W/DIFF, AUTOMATED Collected: 04/24/2017 Status: F Source: [place] 5:15 PM [facility] REPOSITORY TYPE CODE TESTS RESULT OUT OF RANGE REFERENCE UNITS LAB L100.1000 4.4-11.0 K/mm3 Normal WBC 5.0 LAB L100.1200 4.2-5.4 M/mm3 Low RBC 3.68 LAB L100.1300 12.0-15.0 g/dl Low HGB 10.0 LAB L100.1400 37-47 % Low HCT 31.0 LAB L100.1500 81-99 fL Normal MCV 84.2 LAB L100.1600 27.0-32.0 pg Normal MCH 27.2 LAB L100.1700 32-36 g/gl Normal MCHC 32.3 LAB L100.1810 11.6-14.6 % High RDW CV 17.3 LAB L100.1820 35.1-43.9 fl High RDW SD 52.0 LAB L100.1900 150-450 K/mm3 Normal PLT 349 LAB L100.2000 6.2-12.0 fl Normal MPV 11.2 LAB L100.2100 47-70 % Normal NEUT% 61.1 LAB L100.2200 19-41 % Normal LY% 26.3 LAB L100.2300 0-10 % Normal MONO% 9.0 LAB L100.2400 0-5 % Normal EO% 2.4 LAB L100.2500 0-1 % High BASO% 1.2 LAB L100.2550 0.0-0.9 % Normal IM GRAN % 0.000 Result Comment: IG% - Immature Granulocytes (promyelocytes, myelocytes and metamyelocytes) > 1% indicates that a LEFT SHIFT is Present. LAB L100.2620 2.0-7.7 X10 3/uL Normal Absolute Neut 3.1 LAB L100.2720 0.83-4.51 X10 3/ul Normal Absolute Lymph 1.31 Performed By: #### L100.0100 #### [facility] [address] [place], [place], [address] BASIC METABOLIC Collected: 04/24/2017 Status: F Source: [place] PROFILE ([facility]) 5:15 PM [facility] REPOSITORY TYPE CODE TESTS RESULT OUT OF RANGE REFERENCE UNITS LAB L501.0100 74-106 mg/dL Normal GLU 80 LAB L501.1000 7-18 mg/dL Normal BUN 14 LAB L501.1100 0.55-1.02 mg/dL Normal 0.61 CREAT,SERUM Result Comment: The validity of the calculated GFR AND GFRAA in patients over 70 years has not been determined. Clinical correlation is essential. LAB L501.1110 >60 mL/min Normal EST GFR 122 Result Comment: Non- GFR Calc LAB L501.1115 >60 mL/min Normal EST GFR - AA 148 Result Comment: GFR Calc LAB L501.1255 ml/min Normal Estimated CRCL 125.09 LAB L501.1300 10-20 RATIO High BUN/CRE 23.1 LAB L501.2200 8.5-10 mg/dL .1 CA Normal 8.6 LAB L501.5300 136-14 mmol/L 5 NA Normal 140 LAB L501.5600 3.5-5. mmol/L 1 K Normal 4.2 LAB L501.5900 98-107 mmol/L CL Normal 106 LAB L501.6100 21.0-3 mmol/L 2.0 CO2 Normal 29.0 LAB L501.6200 5-15 GAP Normal 5 Performed By: #### L500.2500 #### [facility] [address] [place], [address] PROTHROMBIN TIME W/INR Collected: 04/24/2017 Status: F Source: [place] 5:15 PM [facility] REPOSITORY TYPE CODE TESTS RESULT OUT OF RANGE REFERENCE UNITS LAB L300.4150 11.7-14.9 SECONDS Normal PROTIME 12.1 LAB L300.4200 Normal INR 0.9 Performed By: #### L300.3900 #### [facility] [address] [place], [place], [address] TYPE AND SCREEN Collected: 04/24/2017 Status: F Source: [place] 5:15 PM [facility] REPOSITORY Order Comment: Reason for Type AND Screen/Red Cells: ANEMIA TYPE CODE TESTS RESULT OUT OF RANGE REFERENCE UNITS LAB B10.0800 A Normal BLOOD TYPE GEL NEGATIVE LAB B100.4000 Normal Antibody NEGATIVE Screen Performed By: #### B101.7450 #### [facility] [address] [place], [address] HISTORY AND PHYSICAL Observed: 04/21/2017 Status: F Source: [place] EXAM 10:55 PM [facility] REPOSITORY [facility] Medical Records Department [address] [place] [address] History and Physical 04/19/17 1710 MR#: [id number] Acct: [id number] Name: TRAMAINE PENG Rep #: [id number] : 1985 32 From: Gigi Mendieta MD PCP: Susana Diaz III, MD [place] [facility] [place] [facility] History and Physical Date of Admission: 04/20/17 Referring Provider: Susana Diaz III, MD Primary Provider: Susana Diaz III, MD CC: evaluation painful soft tissue mass pubic area . History of Present Illness: 32-year-old woman presents with a painful soft tissue mass on her pubic area. This mass first developed after abdominal surgery done earlier this summer. Back in 2015 she had a gastric bypass procedure including clinic. It was a laparoscopic Og-en-Y procedure. At that time she weighed about 380 pounds and today she weighs about 200 pounds. In August 2016 she underwent an abdominal panniculectomy. After surgery she developed some bleeding was taken back to surgery the same day where she underwent incision and drainage of postop hematoma. She did okay postoperatively initially for about a month. At the end of September she noticed increased pain and redness and swelling in the right side of her abdominal wall near the incision. She went back to surgery on October 20, 2016 where she underwent incision and drainage of infected abdominal seroma. She was treated with antibiotics and wound care until healed. Throughout these procedures she developed increased scarring in the lower anterior abdominal wall area and this exacerbated her painful symptomatology in her pubic area where a large soft tissue masses located. She denies any recent infection of the soft tissue mass. Denies any trauma. Denies any drainage. Patient denies any fever. She presents at this time for further evaluation and treatment. Past Medical History: Back Problems Bladder/Urinary Tract Inf Gallstones High BP Kidney Stones Ulcers - stomach Vitamin Deficiency Abdominal wall skin crease intertrigo Excessive weight loss after gastic bypass procedure painful soft tissue mass pubic area Past Surgical History: 2 Kidney stones removed gallbladder removed Gastric bypass - 2015 Laparoscopic Og-en-Y procedure at [facility] Abdominal panniculectomy - 09/17/16 Incision and drainage postop hematoma abdominal wall - 09/17/16 Incision and drainage infected postop abdominal wall seroma - 10/20/16 Left thyroid removed Family History: Mother (biol.) - Has Family History of Anxiety Mother (biol.) - Has Family History of Bleeding Disease Mother (biol.) - Has Family History of Depression Mother (biol.) - Has Family History of Hypertension Mother (biol.) - Has Family History of High Cholesterol Mother (biol.) - Has Family History of Other Cancer Father (biol.) - Has Family History of Diabetes Father (biol.) - Has Family History of Hypertension PGF - Has Family History of Colon Cancer PGF - Has Family History of Diabetes PGF - Has Family History of Heart Disease Social History: Alcohol Use - no Patient has never smoked. Medications: NEXPLANON IMPLANT (ETONOGESTREL IMPL) subdermal FLOMAX 0.4 MG ORAL CAPSULE (TAMSULOSIN HCL) Two tablets by mouth twice daily LISINOPRIL 40 MG ORAL TABLET (LISINOPRIL) One tablet by mouth twice daily NORCO 5-325 MG ORAL TABLET (HYDROCODONE-ACETAMINOPHEN) as needed VITAMIN D3 47470 UNIT ORAL TABLET (CHOLECALCIFEROL) 1 tab once a week ELAVIL TABLET (AMITRIPTYLINE HCL TABS) One tablet by mouth daily Allergies: NSAIDS (Critical) * GABAPENTIN (Critical) TORADOL (Critical) * TRAMADOL (Critical) Problems: 1) Dx of 8 cm painful soft tissue mass pubic area (ICD10- E65) (ICD-278.1) 2) Dx of excessive weight loss after gastic bypass procedure (QEY53-T36.4) (ICD-783.21) 3) Dx of abdominal wall skin crease intertrigo (ZJU99-N78.4) (ICD-695.89) Risk Factors: Smoked Tobacco Use: Never smoker Smokeless Tobacco Use: Never Passive smoke exposure: yes Drug use: no HIV high-risk behavior: no Caffeine use: <1 drinks per day Alcohol use: yes Has patient -- [place] need to cut down: no Been annoyed by complaints: no [place] guilty about drinking: no Needed eye retention specialist in the morning: no Comments: social Counseled to quit/cut down alcohol use: no Exercise: yes Seatbelt use: 100 % Sun Exposure: occasionally Family History Risk Factors: Family History of CT in females < 65 years old: no Family History of CT in males < 55 years old: no Dietary Counseling: yes Review of Systems General-denies fever. Has some fatigue. Has had major weight loss since her gastric bypass procedure done a year and a half ago. She lost 180 pounds. Ear nose and throat-denies nasal congestion. Denies sore throat. Eyes-denies glaucoma. Denies cataracts. Endocrine-denies excessive thirst or urination. Skin-has an abdominal wall skin crease intertrigo for which she uses powders for relief. Musculoskeletal-denies joint pain, joint stiffness, weakness of muscles and joints, neck pain, and arthritis. Neurologic-has headaches. Cardiovascular-denies chest pain. Has some fatigue. Denies shortness of breath with exertion. Psychiatric-denies anxiety. Denies depression. Respiratory-denies shortness of breath. Denies chronic cough. Gastrointestinal-denies nausea, vomiting, diarrhea, constipation. Denies abdominal bloating. Hematologic-denies abnormal bruising or bleeding. Genitourinary-denies hematuria and urinary frequency. Vital Signs: Patient Profile: 32 Years Old Female Height: 67.50 inches Weight: 201.2 pounds BMI: 31.04 BSA: 2.04 Physical Exam General-well developed, well nourished, in no acute distress. HEENT-pupils equal round and reactive to light. Extraocular muscles intact. Throat is clear. Neck-supple and nontender. No cervical adenopathy. Lungs-clear to auscultation. Heart-regular rate and rhythm. Abdomen-soft and nondistended. There is abdominal wall scarring from previous abdominal panniculectomy. No abdominal masses noted. No ventral hernias noted. In the lower anterior abdominal wall by the pubic area is a large soft tissue mass measures 8 cm. It is mobile. Slight tenderness to palpation. No evidence of infection. No ulceration. No bleeding. Extremities-full range of motion. No axillary adenopathy. No inguinal adenopathy. Radial pulses and dorsalis pedis pulses are palpable. Neuro-cranial nerves II through XII grossly intact. Assessment and Plan Assessment 1. 8 cm painful soft tissue mass pubic area. 2. 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 3. Abdominal wall skin crease intertrigo. Plan Recommend excision of this painful soft tissue mass in her pubic area. This became more symptomatic because of the scarring in the close proximity to this mass from her recent surgeries and postop infection. We will send tissue to pathology for analysis to rule out carcinoma. Surgery will be done on an outpatient basis under general anesthesia. Due to the large size of the soft tissue mass, I will probably use a drain postoperatively. She was maintained on antibiotics until the drains are removed. I may also use Elin absorbable hemostat to minimize seroma formation. She will also need an abdominal binder postoperatively. The patient was informed of the risks and complications of the procedure including alternatives to surgery. These were discussed with the patient personally. The patient voices understanding and wishes to proceed. Some of the risks and complications were included in a form from the [employer]. 04/21/17 2255 <Electronically signed by Gigi Mendieta MD> Date Gigi Mendieta MD Cosigner Signature: Date (if applicable) CC: Susana Diaz III, MD; Gigi Mendieta MD Signed DISCHARGE INSTRUCTION Observed: 04/21/2017 Status: F Source: [place] 7:23 PM [facility] REPOSITORY [facility] Medical Records Department [address] [place] [address] Instructions for Home/Discharge Instructions 04/21/17 1918 MR#: [id number] Acct: [id number] Name: TRAMAINE PENG Rep #: [id number] : 1985 32 From: Gigi Mendieta MD PCP: Susana Diaz III, MD Status[place] [facility] You will use the following diet at home:: No restrictions Discharge Activity: May not drive while taking narcotic pain medications., May Not Shower - until the drains are removed., - - no heavy lifting. May shower in (days): 14 - after the drains are removed. May resume sexual activity in: 10-14 days Ice area for (Minutes): 5 - as needed for swelling. Weight Bearing Status: Weight bearing as tolerated Call your doctor if your incision/area has: Continuous Slow Oozing, Sudden Increased Bleeding, Increased Pain/ Swelling, Increased Redness, Foul Smelling Discharge, Swelling at the incision site Call your doctor if you observe: Fever of 101 or Higher, Coldness, Increased Pain, Shortness of breath, Chest pain, Calf discomfort, Uncontrolled pain Change Dressing in (Days):: 1 - dry dressing daily. Cleanse incision/area with: - - may get the incision wet in the shower after the drains are removed. Drain: Suction - fidelia drain x 2 to bulb suction. empty and record output daily. Additional Instructions: I will check a Hgb in the next couple of weeks as an outpatient in the office. Allergies/Adverse Reactions: Allergies methocarbamol Allergy (Verified 04/13/17 15:15) Chest tightness gabapentin Adverse Reaction (Verified 04/13/17 15:15) MADE ME WALK SIDEWAYS ketorolac tromethamine [From Toradol] Adverse Reaction (Verified 04/13/17 15:15) Upset Stomach NSAIDS (Non-Steroidal Anti-Inflamma Adverse Reaction (Verified 04/13/17 15:15) gastric bipass not supposed to take tramadol Adverse Reaction (Verified 04/13/17 15:15) Upset Stomach Medications to take at Discharge Ergocalciferol [Vitamin D] 50,000 unit PO Q7D 03/25/13 Lisinopril [Zestril] 40 mg PO BID 05/07/15 Amitriptyline HCl [Elavil] 25 mg PO QHS 12/12/15 Etonogestrel [Nexplanon] 68 mg SQ X1 12/12/15 Tamsulosin HCl [Flomax] 0.4 mg PO DAILY 03/24/16 Acetaminophen [Tylenol Tablet] 650 mg PO Q6H PRN PRN tablet 04/21/17 Cephalexin [Keflex] 500 mg PO TID #42 cap 04/21/17 Docusate Sodium [Colace] 100 mg PO BID #30 cap 04/21/17 Iron Poly/Vit C [Niferex-150] 150 mg PO DAILYCM #30 cap 04/21/17 Oxycodone HCl/Acetaminophen [Percocet 5/325] 1 - 2 tab PO 4X/DAY PRN PRN 7 Days #50 tab 04/21/17 ProMETHAzine [Phenergan] 25 mg PO 4X/DAY PRN PRN #30 tab 04/21/17 The following prescriptions were given: Iron Poly/Vit C [Niferex-150] 150 mg PO DAILYCM #30 cap Oxycodone HCl/Acetaminophen [Percocet 5/325] 1 - 2 tab PO 4X/DAY PRN PRN 7 Days #50 tab PRN Reason: Pain ProMETHAzine [Phenergan] 25 mg PO 4X/DAY PRN PRN #30 tab PRN Reason: NAUSEA/VOMITING Docusate Sodium [Colace] 100 mg PO BID #30 cap Cephalexin [Keflex] 500 mg PO TID #42 cap Primary Care Physician: Susana Diaz III, MD [Primary Care Provider] - Please follow up with your Primary Care Physician in: 4 weeks to further evaluate her anemia. Please Follow Up With: Gigi Mendieta MD When: one week. call [phone] for appt. Proposed Discharge Date: 04/21/17 04/21/171922 <Electronically signed by Gigi Mendieta MD> Date Gigi Mendieta MD CC: Susana Diaz III, MD CBC-COMPLETE BLOOD CNT Collected: 04/21/2017 Status: F Source: [place] NO DIFF 5:50 AM [facility] REPOSITORY TYPE CODE TESTS RESULT OUT OF RANGE REFERENCE UNITS LAB L100.1000 4.4-11.0 K/mm3 Normal WBC 5.9 LAB L100.1200 4.2-5.4 M/mm3 Low RBC 3.25 LAB L100.1300 12.0-15.0 g/dl Low HGB 8.7 LAB L100.1400 37-47 % Low HCT 27.4 LAB L100.1500 81-99 fL Normal MCV 84.3 LAB L100.1600 27.0-32.0 pg Low MCH 26.8 LAB L100.1700 32-36 g/gl Low MCHC 31.8 LAB L100.1810 11.6-14.6 % High RDW CV 17.6 LAB L100.1820 35.1-43.9 fl High RDW SD 53.0 LAB L100.1900 150-450 K/mm3 Normal PLT 278 LAB L100.2000 6.2-12.0 fl Normal MPV 11.3 Performed By: #### L100.0500 #### [facility] [address], [address] BASIC METABOLIC Collected: 04/21/2017 Status: F Source: [place] PROFILE ([place]) 5:50 AM [facility] REPOSITORY TYPE CODE TESTS RESULT OUT OF RANGE REFERENCE UNITS LAB L501.0100 70-110 mg/dL Normal GLU 82 LAB L501.1000 7-18 mg/dL Normal BUN 12 LAB L501.1100 0.55-1.02 mg/dL Low 0.52 CREAT,SERUM Result Comment: The validity of the calculated GFR AND GFRAA in patients over 70 years has not been determined. Clinical correlation is essential. LAB L501.1110 >60 mL/min Normal EST GFR 147 Result Comment: Non- GFR Calc LAB L501.1115 >60 mL/min Normal EST GFR - AA 178 Result Comment: GFR Calc LAB L501.1255 ml/min Normal Estimated CRCL 146.75 LAB L501.1300 10-20 RATIO High BUN/CRE 23.2 LAB L501.2200 8.5-10 mg/dL Low .1 CA 7.8 LAB L501.5300 136-14 mmol/L 5 NA Normal 138 LAB L501.5600 3.5-5. mmol/L 1 K Normal 4.0 LAB L501.5900 98-107 mmol/L CL Normal 104 LAB L501.6100 21.0-3 mmol/L 2.0 CO2 Normal 26.0 LAB L501.6200 5-15 GAP Normal 8 Performed By: #### L500.2500, L506.0500 #### [facility] [address]. [place], [place], [address] PREALBUMIN Collected: 04/21/2017 Status: F Source: [place] 5:50 AM [facility] REPOSITORY TYPE CODE TESTS RESULT OUT OF RANGE REFERENCE UNITS LAB L506.0500 20.0-40.0 mg/dL Normal PREALBUMIN 22.3 Performed By: #### L500.2500, L506.0500 #### [facility] [address] [place], [place], [address] ,SERUM,HCG QUALI. Collected: Status: F Source: [place] 04/20/2017 8:10 AM [facility] REPOSITORY TYPE CODE TESTS RESULT OUT OF REFERENCE UNITS RANGE LAB L700.7000 0-9 Nonpreg Negative Normal HCGSQUAL NEGATIVE LAB L700.6700 =>Qualitative mIU/mL Normal HCG Qual < 1 triggr Performed By: #### L700.6800 #### [facility] [address] [place], [address] MASS (DEFINE AREA) Observed: 04/20/2017 Status: F Source: [place] 12:00 AM [facility] REPOSITORY Patient: TRAMAINE PENG : 1985 (32/F) Acct Num: [id number] Phys: Gigi Mendieta MD Unit Num: [id number] Loc: MS3 [id number] Specimen: [id number] Received: 04/20/17 - 1406 Spec Type: Mass TISSUES TISSUES: Inguinal region, NOS GROSS DESCRIPTION Received in fixative is one container labeled with the patient's name and designated soft tissue mass, pubic area. The specimen consists of multiple pieces of yellow adipose tissue with a few of the pieces showing overlying skin measuring 29 x 18 x 4 cm. The skin surface appears unremarkable. Sections do not reveal any obvious well-defined mass lesion and reveal mostly yellow adipose cut surfaces. A few pieces of skeletal muscle tissue are noted and also on the deeper portion of the tissue. Bookkeeping Machine Operator sections are submitted in three cassettes. Cassette 1 also contains the skin piece. / SJ:lucinda 04/20/17 TC:1 CPT: 58821 HEADER OPERATION: Excision painful mass, soft tissue, pubic area PRE-OP DIAGNOSIS: Painful soft tissue mass, pubic area TISSUE SUBMITTED: Soft tissue mass, pubic area MICROSCOPIC DESCRIPTION Slides are reviewed. MICROSCOPIC DIAGNOSIS Soft tissue mass of pubic area, excision: Mature adipose tissue consistent with lipoma. Skin with no pathologic change. AM:lucinda 04/21/17 Signed Aubrey Danis 04/21/17 <signature on file> Performed By: #### PMASS #### [facility] [address] [place], [address] PROGRESS Observed: 04/19/2017 Status: COMPLETED Source: [place] 9:54 AM [facility] REPOSITORY HNO ID: [id number] Author: Jitendra Patel Service: (none) Author Type: Physician Type: Progress Notes Filed: 04/19/2017 10:52 AM Note Text: ESTABLISHED PATIENT OFFICE VISIT PATIENT INFO: Tramaine Peng 32 year old HPI Patient saw primary physician on April 02 because of pain and was given some Percocet. Patient then followed up with physician orthodontic assistant on April 13. Patient had CAT scan in [place] on March 28 and just showed 2, 1 mm calculi in the right kidney and one 1 mm calculus and left kidney. Patient has completed 24-hour urine specimens Patient on allopurinol and hydrochlorothiazide and Urocit-K. She did not do renal ultrasound that was ordered by physician orthodontic assistant but did a Doppler kidney ultrasound study that had been ordered previously. Patient not having pain today. She understands need for pain management service follow-up or pain meds through primary physician given on and off nature of her pain and assumed passage of stones at times because CAT scan noted above did not show a passing stone at the time she was having pain. Past Urology Hx: April 13, 2017?saw Ana/GAYATHRI?significant for right flank pain started one day ago. Pt went to er, no imaging done, referred to this office. Pt states that she has had several bouts of kidney stones, passes them spontaneously and has had surgery in the past. Pt was given 30 norco last week by pcp for kidney stone pain and has taken all of them. I discussed the amount of pain medication she is taking and risk of addiction. Pt denies gross hematuria, fever or chills. Pt has had several imaging studies, will do renal us. December 07, 2016?history of nephrolithiasis that started even before her gastric bypass. She has history of 24-hour urine specimens that showed normal urine calcium. She has been on hydrochlorothiazide and Urocit-K 1 tablet twice each day. She gets occasional abdominal pain and thinks stems from surgery history. She sees primary physician for narcotic medications. She cannot tolerate nonsteroidal medications or tramadol. No pain at this time. She will periodically pass a stone.. Nocturia x 0-1, stream-ok, day urine frequency q 3-4hrs Urine incontinence-dry Creatinine Date Value Ref Range Status 10/22/2016 0.56 (L) 0.58 - 0.96 mg* Final No results found for: PSA Color (no units) Date Value 04/07/2017 Yellow Clarity (no units) Date Value 04/07/2017 Cloudy Glucose, Urine (mg/dL) Date Value 04/13/2017 neg Bilirubin, Urine (no units) Date Value 04/13/2017 neg Ketones, Urine (no units) Date Value 04/13/2017 15 Specific [place], Ur (no units) Date Value 04/13/2017 1.025 Hemoglobin/Blood,Ur (no units) Date Value 04/13/2017 small pH, Urine (no units) Date Value 04/13/2017 6.0 Protein, Urine (mg/dL) Date Value 04/13/2017 trace Urobilinogen (no units) Date Value 04/07/2017 Normal Nitrites (no units) Date Value 04/13/2017 neg Leukest (no units) Date Value 04/07/2017 Trace Review of Systems Constitutional: Negative for fever. Respiratory: Negative for apnea. Cardiovascular: Negative for chest pain. Gastrointestinal: Abdominal pain: patient has abdominal mass that is going to be removed tomorrow in surgery. I reviewed and confirmed ROS obtained by MA HISTORIES PAST MEDICAL HISTORY Diagnosis Date - BENIGN HYPERTENSION 11/16/2006 - Calcium oxalate renal stones 2009 - Calculus of ureter 09/30/2007 s/p URS and stent with hydro. - Cervical disc disorder with radiculopathy 04/15/2010 - Chronic postoperative pain 02/27/201603/2015, gastric bypass surgery. Pain from severed nerves and muscle - COMMON MIGRAINE INTRACTABLE Improved - Gallbladder sludge 05/31/2013 - GERD (gastroesophageal reflux disease) 09/12/2014 - History of Og-en-Y gastric bypass - Hyperparathyroidism due to vitamin D deficiency (HCC) 04/05/2013 - halfway prescription opiate use 02/27/2016 Chronic post op (gastric bypass) pain - Lumbar disc disorder with myelopathy 06/04/2010 - Morbid obesity with BMI of 50.0-59.9, adult ([facility]) 09/12/2014 - Non-alcoholic fatty liver disease - OBESITY NOS 06/01/2005 - Obstructive sleep apnea Approval received from [facility] 02/01/2015 for CPAP @ 10 approval - 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 Agenesic/atrophic kidney SOCIAL HISTORY Social History Substance Use Topics - Smoking status: Never Smoker - Smokeless tobacco: Never Used - Alcohol use Yes Comment: rarely-2 drinks per month MEDICATIONS: HYDROcodone-acetaminophen (NORCO) 5-325 mg per tablet, Take 1 tablet by mouth every 6 hours as needed for Pain for up to 7 days. labetalol (TRANDATE) 100 mg tablet, Take 1 tablet by mouth twice daily. ketoconazole (NIZORAL) 2 % cream, Apply 1 application to affected area twice daily. allopurinol (ZYLOPRIM) 100 mg tablet, Take 1 tablet by mouth once daily. For hyperuricuria tamsulosin ER (FLOMAX) 0.4 mg cp24, Take 2 capsules by mouth once daily. as needed amitriptyline (ELAVIL) 50 mg tablet, Take 1 tablet by mouth daily at bedtime. cholecalciferol, Vitamin D3, (VITAMIN D3) 50,000 unit cap capsule, one capsule once/wk lisinopril (ZESTRIL, PRINIVIL) 40 mg tablet, take 1 tablet by mouth twice a day acetaminophen (TYLENOL) 500 mg tablet, Take 2 tablets by mouth every 6 hours. amLODIPine (NORVASC) 10 mg tablet, Take 1 tablet by mouth once daily. Hydrochlorothiazide 12.5 mg capsule, Take 1 capsule by mouth once daily. potassium citrate ER (UROCIT-K 10) 10 mEq (1,080 mg) TbER, Take 1 tablet by mouth twice daily. ETONOGESTREL (NEXPLANON SDRM), by SUBDERMAL route. Physical Exam Constitutional: She is oriented to person, place, and time and well-developed, well-nourished, and in no distress. No distress. HENT: Head: Normocephalic and atraumatic. Nose: Nose normal. Eyes: EOM are normal. Left eye exhibits no discharge. Neck: Normal range of motion. No tracheal deviation present. Pulmonary/Chest: Effort normal. No respiratory distress. Musculoskeletal: Normal range of motion. She exhibits no deformity. Neurological: She is alert and oriented to person, place, and time. Gait normal. Skin: Skin is warm. She is not diaphoretic. Psychiatric: Mood and affect normal. Risk/Benefit Discussion: Discussed drinking enough to void 2 liters/day. Well rounded diet. No high fat or protien diets. No added salt. Real lemonade can be good source of citrate. Patient already has a list of foods with high oxalate. FOLLOW UP: Return in about 1 year (around 04/19/2018). ASSESSMENT/PLAN: 1. Renal calculi - ICD9: 592.0, ICD10: N20.0 (primary diagnosis) Last CAT scan just showed 1 mm stone right and left kidney so would not be causing any pain. I would not expect a problem in passing those if they do. Patient will follow-up with Dr. brown in 12 months as I will not be coming to [place] anymore. - XR ABDOMEN 1V SUPINE-12 mo 2. Flank pain - ICD9: 789.09, ICD10: R10.9 - Cleared. Patient knows need pain management follow-up for future pain meds and/or through primary physician. 3. Hyperoxaluria (HCC) - ICD9: 271.8, ICD10: E72.53 Diet control and push fluids 4. Hyperuricosuria - ICD9: 791.9, ICD10: R82.99 Patient will stay on allopurinol Jitendra Patel MD CNOV Observed: 04/19/2017 Status: COMPLETED Source: EURE 9:45 AM [facility] REPOSITORY Office Visit (UROLMD) TRAMAINE PENG ([id number]) 1985 F Date Time Provider Department 04/19/17 9:45 AM JITENDRA PATEL During your visit today, we recorded the following information about you: Pulse Respiration Blood pressure Weight 80/minute 20/minute 144/90 91.2 kg Jitendra Patel MD 04/19/2017 10:52 AM Signed ESTABLISHED PATIENT OFFICE VISIT PATIENT INFO: Tramaine Peng 32 year old HPI Patient saw primary physician on April 02 because of pain and was given some Percocet. Patient then followed up with physician orthodontic assistant on April 13. Patient had CAT scan in [place] on March 28 and just showed 2, 1 mm calculi in the right kidney and one 1 mm calculus and left kidney. Patient has completed 24-hour urine specimens Patient on allopurinol and hydrochlorothiazide and Urocit-K. She did not do renal ultrasound that was ordered by physician orthodontic assistant but did a Doppler kidney ultrasound study that had been ordered previously. Patient not having pain today. She understands need for pain management service follow-up or pain meds through primary physician given on and off nature of her pain and assumed passage of stones at times because CAT scan noted above did not show a passing stone at the time she was having pain. Past Urology Hx: April 13, 2017?saw Ana/GAYATHRI?significant for right flank pain started one day ago. Pt went to er, no imaging done, referred to this office. Pt states that she has had several bouts of kidney stones, passes them spontaneously and has had surgery in the past. Pt was given 30 norco last week by pcp for kidney stone pain and has taken all of them. I discussed the amount of pain medication she is taking and risk of addiction. Pt denies gross hematuria, fever or chills. Pt has had several imaging studies, will do renal us. December 07, 2016?history of nephrolithiasis that started even before her gastric bypass. She has history of 24-hour urine specimens that showed normal urine calcium. She has been on hydrochlorothiazide and Urocit- K 1 tablet twice each day. She gets occasional abdominal pain and thinks stems from surgery history. She sees primary physician for narcotic medications. She cannot tolerate nonsteroidal medications or tramadol. No pain at this time. She will periodically pass a stone.. Nocturia x 0-1, stream-ok, day urine frequency q 3-4hrs Urine incontinence-dry Creatinine Date Value Ref Range Status 10/22/2016 0.56 (L) 0.58 - 0.96 mg* Final No results found for: PSA Color (no units) Date Value 04/07/2017 Yellow Clarity (no units) Date Value 04/07/2017 Cloudy Glucose, Urine (mg/dL) Date Value 04/13/2017 neg Bilirubin, Urine (no units) Date Value 04/13/2017 neg Ketones, Urine (no units) Date Value 04/13/2017 15 Specific [place], Ur (no units) Date Value 04/13/2017 1.025 Hemoglobin/Blood,Ur (no units) Date Value 04/13/2017 small pH, Urine (no units) Date Value 04/13/2017 6.0 Protein, Urine (mg/dL) Date Value 04/13/2017 trace Urobilinogen (no units) Date Value 04/07/2017 Normal Nitrites (no units) Date Value 04/13/2017 neg Leukest (no units) Date Value 04/07/2017 Trace Review of Systems Constitutional: Negative for fever. Respiratory: Negative for apnea. Cardiovascular: Negative for chest pain. Gastrointestinal: Abdominal pain: patient has abdominal mass that is going to be removed tomorrow in surgery. I reviewed and confirmed ROS obtained by MA HISTORIES PAST MEDICAL HISTORY Diagnosis Date - BENIGN HYPERTENSION 11/16/2006 - Calcium oxalate renal stones 2009 - Calculus of ureter 09/30/2007 s/p URS and stent with hydro. - Cervical disc disorder with radiculopathy 04/15/2010 - Chronic postoperative pain 02/27/201603/2015, gastric bypass surgery. Pain from severed nerves and muscle - COMMON MIGRAINE INTRACTABLE Improved - Gallbladder sludge 05/31/2013 - GERD (gastroesophageal reflux disease) 09/12/2014 - History of Og-en-Y gastric bypass - Hyperparathyroidism due to vitamin D deficiency ([facility]) 04/05/2013 - halfway prescription opiate use 02/27/2016 Chronic post op (gastric bypass) pain - Lumbar disc disorder with myelopathy 06/04/2010 - Morbid obesity with BMI of 50.0-59.9, adult ([facility]) 09/12/2014 - Non-alcoholic fatty liver disease - OBESITY NOS 06/01/2005 - Obstructive sleep apnea Approval received from [facility] 02/01/2015 for CPAP @ 10 approval - 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 Agenesic/atrophic kidney SOCIAL HISTORY Social History Substance Use Topics - Smoking status: Never Smoker - Smokeless tobacco: Never Used - Alcohol use Yes Comment: rarely-2 drinks per month MEDICATIONS: HYDROcodone-acetaminophen (NORCO) 5-325 mg per tablet, Take 1 tablet by mouth every 6 hours as needed for Pain for up to 7 days. labetalol (TRANDATE) 100 mg tablet, Take 1 tablet by mouth twice daily. ketoconazole (NIZORAL) 2 % cream, Apply 1 application to affected area twice daily. allopurinol (ZYLOPRIM) 100 mg tablet, Take 1 tablet by mouth once daily. For hyperuricuria tamsulosin ER (FLOMAX) 0.4 mg cp24, Take 2 capsules by mouth once daily. as needed amitriptyline (ELAVIL) 50 mg tablet, Take 1 tablet by mouth daily at bedtime. cholecalciferol, Vitamin D3, (VITAMIN D3) 50,000 unit cap capsule, one capsule once/wk lisinopril (ZESTRIL, PRINIVIL) 40 mg tablet, take 1 tablet by mouth twice a day acetaminophen (TYLENOL) 500 mg tablet, Take 2 tablets by mouth every 6 hours. amLODIPine (NORVASC) 10 mg tablet, Take 1 tablet by mouth once daily. Hydrochlorothiazide 12.5 mg capsule, Take 1 capsule by mouth once daily. potassium citrate ER (UROCIT-K 10) 10 mEq (1,080 mg) TbER, Take 1 tablet by mouth twice daily. ETONOGESTREL (NEXPLANON SDRM), by SUBDERMAL route. Physical Exam Constitutional: She is oriented to person, place, and time and well-developed, well-nourished, and in no distress. No distress. HENT: Head: Normocephalic and atraumatic. Nose: Nose normal. Eyes: EOM are normal. Left eye exhibits no discharge. Neck: Normal range of motion. No tracheal deviation present. Pulmonary/Chest: Effort normal. No respiratory distress. Musculoskeletal: Normal range of motion. She exhibits no deformity. Neurological: She is alert and oriented to person, place, and time. Gait normal. Skin: Skin is warm. She is not diaphoretic. Psychiatric: Mood and affect normal. Risk/Benefit Discussion: Discussed drinking enough to void 2 liters/day. Well rounded diet. No high fat or protien diets. No added salt. Real lemonade can be good source of citrate. Patient already has a list of foods with high oxalate. FOLLOW UP: Return in about 1 year (around 04/19/2018). ASSESSMENT/PLAN: 1. Renal calculi - ICD9: 592.0, ICD10: N20.0 (primary diagnosis) Last CAT scan just showed 1 mm stone right and left kidney so would not be causing any pain. I would not expect a problem in passing those if they do. Patient will follow-up with Dr. brown in 12 months as I will not be coming to [place] anymore. - XR ABDOMEN 1V SUPINE-12 mo 2. Flank pain - ICD9: 789.09, ICD10: R10.9 - Cleared. Patient knows need pain management follow-up for future pain meds and/or through primary physician. 3. Hyperoxaluria (HCC) - ICD9: 271.8, ICD10: E72.53 Diet control and push fluids 4. Hyperuricosuria - ICD9: 791.9, ICD10: R82.99 Patient will stay on allopurinol Jitendra Patel MD Referring Provider: JITENDRA PATEL [[id number]] Allergies As of Date: 04/19/2017 Noted Allergy Reaction TORADOL (KETOROLAC TROMETHAMINE) 05/30/2015 8 - GI Upset GABAPENTIN 02/27/2016 14 - Other: See Comments Comments: Cognitive intolerance METHOCARB 04/01/2016 14 - Other: See Comments TRAMADOL 10/17/2013 8 - GI Upset Date Reviewed: 04/19/2017 Reviewed by: Kodi Adame RN - Fully Assessed Reason for Visit: Established Patient [175] Primary Visit Diagnosis:Renal calculi [N20.0] Other Visit Diagnoses:Flank pain [R10.9] Hyperoxaluria (HCC) [E72.53] Hyperuricosuria [R82.99] Order(s):UA DIP, URINE (POC) [9443006] Order #: [id number]. #:[id number] XR ABDOMEN 1V SUPINE [0968658] Order #: [id number] FUTURE Prescriptions as of 04/19/2017 Sig: HYDROCODONE 5 MG-ACETAMINOPHE* Take 1 tablet by mouth every * LABETALOL 100 MG TABLET Take 1 tablet by mouth twice * KETOCONAZOLE 2 % TOPICAL CREAM Apply 1 application to affect* ALLOPURINOL 100 MG TABLET Take 1 tablet by mouth once d* TAMSULOSIN 0.4 MG CAPSULE Take 2 capsules by mouth once* AMITRIPTYLINE 50 MG TABLET Take 1 tablet by mouth daily * CHOLECALCIFEROL (VITAMIN D3) * one capsule once/wk LISINOPRIL 40 MG TABLET take 1 tablet by mouth twice * ACETAMINOPHEN 500 MG TABLET Take 2 tablets by mouth every* AMLODIPINE 10 MG TABLET Take 1 tablet by mouth once d* HYDROCHLOROTHIAZIDE 12.5 MG C* Take 1 capsule by mouth once * POTASSIUM CITRATE ER 10 MEQ (* Take 1 tablet by mouth twice * NEXPLANON SDRM by SUBDERMAL route. 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] INVALID FOR*07/04/2015 BENIGN HYPERTENSION [I10] INVALID FOR* Intractable migraine without aura [G43.019] INVALID FOR* Cervical disc disorder with radiculopathy [M50.*INVALID FOR*09/07/2016 Lumbar disc disorder with myelopathy [M51.06] INVALID FOR*09/07/2016 Calcium oxalate renal stones [N20.0] INVALID FOR* Non-alcoholic fatty liver disease [K76.0] Vitamin D deficiency [E55.9] INVALID FOR*09/07/2016 Hyperparathyroidism due to vitamin D deficiency*INVALID FOR*09/07/2016 Gallbladder sludge [K82.8] INVALID FOR*11/09/2013 Physical deconditioning [R53.81] INVALID FOR*09/07/2016 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 Chronic postoperative pain [G89.28] INVALID FOR* More... Bleeding [R58] INVALID FOR*10/14/2016 More... Cellulitis of abdominal wall [L03.311] INVALID FOR*12/23/2016 Vitamin D deficiency [E55.9] INVALID FOR* Hyperuricuria [R82.99] INVALID FOR* Hyperuricosuria [R82.99] INVALID FOR* Hyperoxaluria (HCC) [E72.53] INVALID FOR* Renal calculi [N20.0] INVALID FOR* Disposition: Return in about 1 year (around 04/19/2018). Follow-up and Disposition History Recorded Letter Text Encounter Status:Closed by JITENDRA PATEL MD on 04/19/17 ALLERGIES ALLERGIES DATE TYPE / CODE NAME / CODE REACTION SEVERITY SOURCE 04/12/2018 Drug ketorolac Upset Stomach Unknown [place] Allergy/416 tromethamine/F0000 Community 861830(SN 72922(RXNORM) [facility] ED CT) Repository 04/12/2018 Drug NSAIDS gastric bipass Unknown [place] Allergy/416 (Non-Steroidal not supposed Community 969507([facility] Anti-Inflamma/F001 to [facility] ED CT) 195726(RXNORM) Repository 04/12/2018 Drug methocarbamol/F006 Chest tightness Unknown [place] Allergy/416 440805(RXNORM) Community 160663([facility] ED CT) Repository 04/12/2018 Drug tramadol/[id number] Upset Stomach Unknown [place] Allergy/416 0(RXNORM) Community 661479([facility] ED CT) Repository 04/12/2018 Drug gabapentin/U226605 MADE ME WALK Unknown [place] Allergy/416 415(RXNORM) [facility] Community 768427([facility] ED CT) Repository 04/01/2016 DRUG/348185 METHOCARB OTHER: SEE [facility] 003(SNOMED [facility] [place]) Repository 02/27/2016 DRUG GABAPENTIN OTHER: SEE [facility] INGREDI/419 [facility] [place] 724373(SNOM Repository ED CT) 07/04/2015 Drug NSAIDS OTHER: SEE [facility] Class/64415 (NON-STEROIDAL [facility] [place] 1003(SNOMED ANTI-INFLAMMATORY Repository CT) DRUG) 05/30/2015 DRUG KETOROLAC GI UPSET Med [facility] INGREDI/419 TROMETHAMINE [facility] [place] 035766(SNOM Repository ED CT) 10/17/2013 DRUG TRAMADOL GI UPSET [facility] INGREDI/419 [facility] [place] 716088(SNOM Repository ED CT) ENCOUNTERS ENCOUNTERS ADMIT/DISCHARGE ACCOUNT NUMBER ADMITTING ENCOUNTER LOCATION SOURCE CLASS 04/14/2018/04/15/19 [id number] Ambulatory [address] [place] Repository 04/12/2018/04/12/19 [id number] Emergency [facility] Hospital ding:ED Repository 03/09/2018/03/09/20 [id number] Emergency BBuilding:ER [place] [address] [place] [address] Repository 02/21/2018/02/22/20 [id number] Ambulatory [address] Repository 02/14/2018/02/16/20 [id number] Ambulatory [address] Repository 01/24/2018/01/26/20 [id number] Ambulatory [address] Repository 01/17/2018 [id number] Ambulatory BMSBuilding: [place] [facility]MS.[facility] Repository 01/17/2018/01/20/20 [id number] Ambulatory [place] [address] ding:[place] Repository 12/29/2017/12/30/19 [id number] Ambulatory [address] Repository 12/06/2017 [id number] [facility] Repository 11/24/2017/11/26/19 [id number] Ambulatory [address] Repository 11/08/2017/11/20/19 [id number] Ambulatory Her[place] [address] [place] [address] Hospital ding:[place] Repository 11/08/2017 [id number] Ambulatory BMSBuilding: [place] BMS.[facility] Repository 11/02/2017/11/03/19 [id number] Emergency [place] [facility] Hospital ding:ED Repository 10/25/2017 [id number] Ambulatory BMSBuilding: [place] BMS.[facility] Repository 10/19/2017/10/20/19 [id number] Ambulatory [place] [address] [place] [address] Hospital ding:SDC Repository 10/19/2017 [id number] Ambulatory BMSBuilding: [place] BMS.[facility] Repository 10/04/2017/10/20/19 [id number] Ambulatory [place] [facility] Hospital ding:[place] Repository 10/04/2017 [id number] Ambulatory BMSBuilding: [place] BMS.[facility] Repository 10/01/2017/07/16 [id number] Ambulatory [address] Repository 09/21/2017/09/22/19 [id number] Emergency [facility] ding:ED Repository 09/06/2017/09/08/19 [id number] Ambulatory [address] Repository 09/06/2017/09/19/19 [id number] Ambulatory [place] ding:[place] Repository 09/06/2017 [id number] Ambulatory BMSBuilding: [place] BMS.CF.[facility] Repository 09/03/2017/09/07/19 [id number] Ambulatory [address] Repository 09/01/2017/09/02/19 [id number] Ambulatory [address] Repository 08/17/2017/08/20/19 [id number] Ambulatory [place] ding:[place] Repository 08/17/2017 [id number] Ambulatory BMSBuilding: [place] BMS.CF[facility] Repository 08/07/2017/08/11/19 [id number] Ambulatory [address] Repository 08/06/2017/08/07/19 [id number] Emergency [address] ding:ED Repository 08/02/2017/08/03/19 [id number] Ambulatory [address] Repository 08/02/2017 [id number] Ambulatory BMSBuilding: [place] BMS.CF[facility] Repository 07/28/2017/07/29/19 [id number] Emergency [place] ding:ED Repository 07/20/2017/07/22/19 [id number] Ambulatory [place] Her[place] ding:[place]oom Repository : MS306 07/20/2017 [id number] Ambulatory BMSBuilding: [place] BMS.CF[facility] Repository 07/19/2017 [id number] Ambulatory BMSBuilding: [place] [facility]MS.CF[facility] Repository 07/12/2017/07/13/19 [id number] Emergency [place] ding:ED Repository 07/12/2017/07/20/19 [id number] Ambulatory [place] Herb [facility] ding:WC Repository 07/12/2017 [id number] Ambulatory BMSBuilding: [place] BMS.CF[facility] Repository 07/06/2017/07/07/19 [id number] Emergency [place] Herb[address] ding:ED Repository 07/06/2017/07/07/19 [id number] Ambulatory [address] Repository 07/06/2017/07/08/19 [id number] Ambulatory [address] Repository 07/05/2017 [id number] Ambulatory BMSBuilding: [place] BMS.CF[facility] Repository 06/21/2017 [id number] Ambulatory BMSBuilding: [place] BMS.CF[facility] Repository 06/18/2017/06/22/19 [id number] Ambulatory [address] Repository 06/07/2017/06/20/19 [id number] Ambulatory [place] [address] [place] [address] ding:WC Repository 06/07/2017 [id number] Ambulatory BMSBuilding: [place] BMS.CF[facility] Repository 06/04/2017/06/08/19 [id number] Ambulatory [address] Repository 06/01/2017/06/02/19 [id number] Emergency [place] ding:ED Repository 05/30/2017/05/31/19 [id number] Emergency [place] [facility] ding:ED Repository 05/24/2017 [id number] Ambulatory BMSBuilding: [place] BMS.CF[facility] Repository 05/21/2017/05/22/19 [id number] Emergency [place] [facility] ding:ED Repository 05/21/2017/05/22/19 [id number] Ambulatory BMSBuilding: [place] [address] [facility] Repository 05/19/2017/05/19/19 [id number] Ambulatory [address] Repository 05/18/2017/05/19/19 [id number] Ambulatory [address] Repository 05/18/2017 [id number] Ambulatory [facility] Repository 05/13/2017/05/13/19 [id number] Emergency [address] ding:ED Repository 05/03/2017 [id number] Ambulatory BMSBuilding: [place] [facility]MS[facility] Repository 04/30/2017 [id number] Gigi Mendieta Ambulatory BMSBuilding: [place] BMS.CF[facility] Repository 04/30/2017 [id number] Gigi Mendieta Ambulatory BMSBuilding: [place] BMS.[facility] Repository 04/30/2017 [id number] Gigi Mendieta Ambulatory BMSBuilding: [place] BMS.[facility] Repository 04/30/2017 [id number] Gigi Mendieta Ambulatory BMSBuilding: [place] BMS.CF[facility] Repository 04/30/2017/05/10/19 [id number] Ambulatory BMSBuilding: [place] 18 [facility] Repository 04/30/2017 [id number] Gigi Mendieta Ambulatory BMSBuilding: [place] BMS.CF[facility] Repository 04/30/2017 [id number] Gigi Mendieta Ambulatory BMSBuilding: [place] BMS.[facility] Repository 04/30/2017 [id number] Gigi Mendieta Ambulatory BMSBuilding: [place] BMS.[facility] Repository 04/30/2017 [id number] Gigi Mendieta Ambulatory BMSBuilding: [place] BMS.[facility] Repository 04/30/2017 [id number] Gigi Mendieta Ambulatory BMSBuilding: [place] BMS.CF[facility] Repository 04/30/2017/05/10/19 [id number] Gigi Mendieta Inpatient [place] ding:QT8Oepn Repository : VK667Cnt: 1 04/28/2017/04/28/19 [id number] Ambulatory BMSBuilding: [place] [address] [facility] Repository 04/24/2017/04/24/19 [id number] Emergency [address] ding:ED Repository 04/21/2017 [id number] Ambulatory BMSBuilding: [place] BMS.CF[facility] Repository 04/20/2017/04/21/19 [id number] Ambulatory [place] [facility] ding:[place]CRoom Repository : [place]306 04/20/2017 [id number] Ambulatory BMSBuilding: [place] BMS.CF[facility] Repository 04/19/2017/04/19/19 [id number] Ambulatory [address] Repository 04/19/2017 [id number] Ambulatory BMSBuilding: [place] BMS.CF[facility] Repository PAYERS PAYERS ENCOUNTER GUARANTOR PAYER SUBSCRIBER SOURCE 04/12/2018 TRAMAINE S Primary Insurance:[facility] TRAMAINE S [facility] [id number] [facility] PROSPECT Number: [id number], [place] [id number] Repository [address]Ens: (330) Date:[phone] () [address] [place] [address] 92236BY: 04/12/2018 Secondary NOT GIVENUNK [place] Insurance:SELF PAY [facility] Number: Effective Repository Date:2018-04-12 03/09/2018 TRAMAINE S Primary TRAMAINE S [facility] COBLENTZDOB: [facility] [place] [facility] [id number] Repository PROSPECT INSCOPolicy Number: E PROSPECT [place], [place] [id number] [place], [place] [address]Hdw: (330) Date:2018-03-09 23432Hdd: () [id number] [phone] Name:XPO Box ()Tel: [address] [place] [address] [phone] () 98066YO: 01/17/2018 TRAMAINE S Primary Insurance:[facility] TRAMAINE S Herb [id number] E [facility] COBLENTZDOB: [facility] PROSPECT Number: [id number], [place] [id number] Repository 64436Oxv: (330) Date:6294-11-82CG [phone] () [address] [place] [address] 18710SI: 01/17/2018 Secondary NOT GIVENUNK Herb Insurance:SELF PAY [facility]: Effective Repository Date:2018-01-17 01/17/2018 TRAMAINE S Primary Insurance:[facility] TRAMAINE S Herb [id number] E COMMUNITY PLANPolicy COBLENTZDOB: Community PROSPECT Number: [id number], [place] [id number] Repository 83273Gme: (330) Date:4791-10-31PK [phone] () [address] [place] [address] 96490XN: 01/17/2018 Secondary NOT GIVENUNK [place] Insurance:SELF PAY [facility] Number: Effective Repository Date:2018-01-10 12/06/2017 TRAMAINE S Primary Insurance:[facility] TRAMAINE S [place] [id number] E COMMUNITY PLANPolicy COBLENTZDOB: Community PROSPECT Number: [id number], [place] [id number] Repository 70363Xqy: (330) Date:4086-46-80LR [phone] () [address] [place] [address] 65220HU: 12/06/2017 Secondary NOT GIVENUNK [place] Insurance:SELF PAY [facility] Number: Effective Repository Date:2017-11-20 11/08/2017 TRAMAINE S Primary Insurance:C TRAMAINE S Herb [id number] E COMMUNITY PLANPolicy COBLENTZDOB: Community PROSPECT Number: [id number], [place] [id number] Repository 62168Slr: (330) Date:0567-94-37XG [phone] () [address] [place] [address] 98225IJ: 11/08/2017 Secondary NOT GIVENUNK Herb Insurance:SELF PAY [facility] Number: Effective Repository Date:2017-10-20 11/08/2017 TRAMAINE S Primary Insurance:[facility] TRAMAINE S Herb [id number] E COMMUNITY PLANPolicy COBLENTZDOB: Community PROSPECT Number: [id number], [place] [id number] Repository 49978Qey: (330) Date:7980-18-55AT [phone] () [address] [place] [address] 70533SX: 11/08/2017 Secondary NOT GIVENUNK [place] Insurance:SELF PAY [facility] Number: Effective Repository Date:2017-11-08 11/02/2017 TRAMAINE S Primary Insurance:[facility] TRAMAINE S [place] [id number] E COMMUNITY PLANPolicy COBLENTZDOB: Community PROSPECT Number: [id number], [place] [id number] Repository 42164Won: (330) Date:6882-22-47VF [phone] () [address] [place] [address] 44603FQ: 11/02/2017 Secondary NOT GIVENUNK [place] Insurance:SELF PAY [facility] Number: Effective Repository Date:2017-11-02 10/25/2017 TRAMAINE S Primary Insurance:[facility] TRAMAINE S Herb [id number] E COMMUNITY PLANPolicy COBLENTZDOB: Community PROSPECT Number: [id number], [place] [id number] Repository 94513Fuh: (330) Date:5553-26-32KF [phone] () [address] [place] [address] 46780UJ: 10/25/2017 Secondary NOT GIVENUNK [place] Insurance:SELF PAY [facility] Number: Effective Repository Date:2017-10-25 10/19/2017 TRAMAINE S Primary Insurance:[facility] TRAMAINE S [place] [id number] E COMMUNITY PLANPolicy COBLENTZDOB: Community PROSPECT Number: [id number], [place] [id number] Repository 85849Erd: (330) Date:0418-64-89GN [phone] () [address] [place] [address] 96582ZO: 10/19/2017 Secondary NOT GIVENUNK [place] Insurance:SELF PAY [facility] Number: Effective Repository Date:2017-10-15 10/19/2017 TRAMAINE S Primary Insurance:[facility] TRAMAINE S [place] [id number] E COMMUNITY PLANPolicy COBLENTZDOB: Community PROSPECT Number: [id number], [place] [id number] Repository 13368Egy: (330) Date:2573-77-96LL [address] [phone] () [address] [place] [address] 75410QA: 10/19/2017 Secondary NOT GIVENUNK Herb Insurance:SELF PAY [facility] Number: Effective Repository Date:2017-10-19 10/04/2017 TRAMAINE S Primary Insurance:[facility] TRAMAINE S Herb [id number] E COMMUNITY PLANPolicy COBLENTZDOB: Community PROSPECT Number: [id number], [place] [id number] Repository 76857Bce: (330) Date:7677-81-77DM [address] [phone] () [address] [place] [address] 79441RK: 10/04/2017 Secondary NOT GIVENUNK [place] Insurance:SELF PAY [facility] Number: Effective Repository Date:2017-09-19 10/04/2017 TRAMIANE S Primary Insurance:[facility] TRAMAINE S [place] [id number] E COMMUNITY PLANPolicy COBLENTZDOB: Community PROSPECT Number: [id number], [place] [id number] Repository 07982Fso: (330) Date:3741-68-48ED [address] [phone] () [address] [place] [address] 43858SP: 10/04/2017 Secondary NOT GIVENUNK [place] Insurance:SELF PAY [facility] Number: Effective Repository Date:2017-10-04 09/21/2017 TRAMAINE S Primary Insurance:[facility] TRAMAINE S Herb [id number] E COMMUNITY PLANPolicy COBLENTZDOB: Community PROSPECT Number: [id number], [place] [id number] Repository 52482Gtl: (330) Date:9105-56-19ZA [address] [phone] () [address] [place] [address] 56717PC: 09/21/2017 Secondary NOT GIVENUNK [place] Insurance:SELF PAY [facility] Number: Effective Repository Date:2017-09-21 09/06/2017 TRAMAINE S Primary Insurance:[facility] TRAMAINE S [place] [id number] E COMMUNITY PLANPolicy COBLENTZDOB: Community PROSPECT Number: [id number], [place] [id number] Repository 92770Qtf: (330) Date:0507-69-78JU [address] [phone] () [address] [place], [place] [address]WP: 09/06/2017 Secondary NOT GIVENUNK [place] Insurance:SELF PAY [facility] Number: Effective Repository Date:2017-08-20 09/06/2017 TRAMAINE S Primary Insurance:[facility] TRAMAINE S Herb [id number] E COMMUNITY PLANPolicy COBLENTZDOB: Community PROSPECT Number: [id number], [place] [id number] Repository 52665Roo: (330) Date:1548-57-21RW [address] [phone] () [address] [place] [address] 31616FX: 09/06/2017 Secondary NOT GIVENUNK [place] Insurance:SELF PAY [facility] Number: Effective Repository Date:2017-09-06 08/17/2017 TRAMAINE S Primary Insurance:[facility] TRAMAINE S [place] [id number] E COMMUNITY PLANPolicy COBLENTZDOB: Community PROSPECT Number: [id number], [place] [id number] Repository 65505Ddw: (330) Date:9027-32-66KR [phone] () [address] [place] [address] 64431VT: 08/17/2017 Secondary NOT GIVENUNK [place] Insurance:SELF PAY [facility] Number: Effective Repository Date:2017-07-20 08/17/2017 TRAMAINE S Primary Insurance:[facility] TRAMAINE S [place] [id number] E COMMUNITY PLANPolicy COBLENTZDOB: Community PROSPECT Number: [id number], [place] [id number] Repository 80669Mai: (330) Date:7199-29-39HH [address] [phone] () [address] [place] [address] 43898JO: 08/17/2017 Secondary NOT GIVENUNK [place] Insurance:SELF PAY [facility] Number: Effective Repository Date:2017-08-17 08/06/2017 TRAMAINE S Primary Insurance:[facility] TRAMAINE S Herb [id number] E COMMUNITY PLANPolicy COBLENTZDOB: Community PROSPECT Number: [id number], [place] [id number] Repository 69223Jpx: (330) Date:0721-84-61CZ [phone] () [address] [place] [address] 75295CE: 08/06/2017 Secondary NOT GIVENUNK [place] Insurance:SELF PAY [facility] Number: Effective Repository Date:2017-08-06 08/02/2017 TRAMAINE S Primary Insurance:[facility] TRAMAINE S [place] [id number] E COMMUNITY PLANPolicy COBLENTZDOB: Community PROSPECT Number: [id number], [place] [id number] Repository 74800Xjt: (330) Date:1906-99-71TL [address] [phone] () [address] [place] [address] 94686QG: 08/02/2017 Secondary NOT GIVENUNK [place] Insurance:SELF PAY [facility] Number: Effective Repository Date:2017-08-02 07/28/2017 TRAMAINE S Primary Insurance:C TRAMAINE S [place] [id number] E COMMUNITY PLANPolicy COBLENTZDOB: Community PROSPECT Number: [id number], [place] [id number] Repository 01180Qwp: (330) Date:4296-31-59LH [address] [phone] () [address] [place] [address] 67059JX: 07/28/2017 Secondary NOT GIVENUNK [place] Insurance:SELF PAY [facility] Number: Effective Repository Date:2017-07-28 07/20/2017 TRAMAINE S Primary Insurance:[facility] TRAMAINE S [place] [id number] E COMMUNITY PLANPolicy COBLENTZDOB: Community PROSPECT Number: [id number], [place] [id number] Repository 01690Wah: (330) Date:6234-98-59CM [address] [phone] () [address] [place] [address] 43128FP: 07/20/2017 Secondary NOT GIVENUNK [place] Insurance:SELF PAY [facility] Number: Effective Repository Date:2017-07-12 07/20/2017 TRAMAINE S Primary Insurance:[facility] TRAMAINE S [place] [id number] E COMMUNITY PLANPolicy COBLENTZDOB: Community PROSPECT Number: [id number], [place] [id number] Repository 72631Szq: (330) Date:5790-07-90YR [address] [phone] () [address] [place] [address] 77866SJ: 07/20/2017 Secondary NOT GIVENUNK [place] Insurance:SELF PAY [facility] Number: Effective Repository Date:2017-07-20 07/19/2017 TRAMAINE S Primary Insurance:[facility] TRAMAINE S [place] [id number] E COMMUNITY PLANPolicy COBLENTZDOB: Community PROSPECT Number: [id number], [place] [id number] Repository 68727Kys: (330) Date:4512-19-20VL [phone] () [address] [place] [address] 33234UT: 07/19/2017 Secondary NOT GIVENUNK [place] Insurance:SELF PAY [facility] Number: Effective Repository Date:2017-07-19 07/12/2017 TRAMAINE S Primary Insurance:[facility] TRMAAINE S [place] [id number] E COMMUNITY PLANPolicy COBLENTZDOB: Community PROSPECT Number: [id number], [place] [id number] Repository 78127Dun: (330) Date:4308-71-91RM [address] [phone] () [address] [place] [address] 17249OY: 07/12/2017 Secondary NOT GIVENUNK [place] Insurance:SELF PAY [facility] Number: Effective Repository Date:2017-07-12 07/12/2017 TRAMAINE S Primary Insurance:[facility] TRAMAINE S [place] [id number] E COMMUNITY PLANPolicy COBLENTZDOB: Community PROSPECT Number: [id number], [place] [id number] Repository 41922Exu: (330) Date:6193-88-39FZ [address] [phone] () [address] [place] [address] 69479FB: 07/12/2017 Secondary NOT GIVENUNK [place] Insurance:SELF PAY [facility] Number: Effective Repository Date:2017-06-20 07/12/2017 TRAMAINE S Primary Insurance:[facility] TRAMAINE S [place] [id number] E COMMUNITY PLANPolicy COBLENTZDOB: Community PROSPECT Number: [id number], [place] [id number] Repository 84446Std: (330) Date:0544-95-49VL [address] [phone] () [address] [place] [address] 81702OD: 07/12/2017 Secondary NOT GIVENUNK [place] Insurance:SELF PAY [facility] Number: Effective Repository Date:2017-07-12 07/06/2017 TRAMAINE S Primary Insurance:[facility] TRAMAINE S [place] [id number] E COMMUNITY PLANPolicy COBLENTZDOB: Community PROSPECT Number: [id number], [place] [id number] Repository 33919Hos: (330) Date:8484-14-17FR [address] [phone] () [address] [place] [address] 86025LK: 07/06/2017 Secondary NOT GIVENUNK [place] Insurance:SELF PAY [facility] Number: Effective Repository Date:2017-07-06 07/05/2017 TRAMAINE S Primary Insurance:[facility] TRAMAINE S Herb [id number] E COMMUNITY PLANPolicy COBLENTZDOB: Community PROSPECT Number: [id number], [place] [id number] Repository 72491Xlf: (330) Date:7856-58-45BA [address] [phone] () [address] [place] [address] 58976VJ: 07/05/2017 Secondary NOT GIVENUNK [place] Insurance:SELF PAY [facility] Number: Effective Repository Date:2017-07-05 06/21/2017 TRAMAINE S Primary Insurance:[facility] TRAMAINE S Herb [id number] E COMMUNITY PLANPolicy COBLENTZDOB: Community PROSPECT Number: [id number], [place] [id number] Repository 55225Srb: (330) Date:1853-99-00QC [address] [phone] () [address] [place] [address] 67001YI: 06/21/2017 Secondary NOT GIVENUNK [place] Insurance:SELF PAY [facility] Number: Effective Repository Date:2017-06-21 06/07/2017 TRAMAINE S Primary Insurance:[facility] TR[place]INE S [place] [id number] E COMMUNITY PLANPolicy COBLENTZDOB: Community PROSPECT Number: [id number], [place] [id number] Repository 71008Yum: (330) Date:8807-93-43YL [address] [phone] () [address] [place] [address] 76759UR: 06/07/2017 Secondary NOT GIVENUNK [place] Insurance:SELF PAY [facility] Number: Effective Repository Date:2017-05-24 06/07/2017 TRAMAINE S Primary Insurance:[facility] TRAMAINE S [place] [id number] E COMMUNITY PLANPolicy COBLENTZDOB: Community PROSPECT Number: [id number], [place] [id number] Repository 90474Xix: (330) Date:9295-25-18WI [address] [phone] () [address] [place] [address] 48193JL: 06/07/2017 Secondary NOT GIVENUNK [place] Insurance:SELF PAY [facility] Number: Effective Repository Date:2017-06-07 06/01/2017 TRAMAINE S Primary Insurance:[facility] TR[place]INE S [place] [id number] E COMMUNITY PLANPolicy COBLENTZDOB: Community PROSPECT Number: [id number], [place] [id number] Repository 06967Osu: (330) Date:4413-96-11GG [address] [phone] () [address] [place] [address] 96945IC: 06/01/2017 Secondary NOT GIVENUNK [place] Insurance:SELF PAY [facility] Number: Effective Repository Date:2017-06-01 05/30/2017 TRAMAINE S Primary Insurance:[facility] TRAMAINE S [place] [id number] E COMMUNITY PLANPolicy COBLENTZDOB: Community PROSPECT Number: [id number], [place] [id number] Repository 31035Eti: (330) Date:5095-39-66AB [address] [phone] () [address] [place] [address] 23853YF: 05/30/2017 Secondary NOT GIVENUNK [place] Insurance:SELF PAY [facility] Number: Effective Repository Date:2017-05-30 05/24/2017 TRAMAINE S Primary Insurance:[facility] TRAMAINE S [place] [id number] E COMMUNITY PLANPolicy COBLENTZDOB: Community PROSPECT Number: [id number], [place] [id number] Repository 40763Nab: (330) Date:3886-62-35WE [address] [phone] () [address] [place] [address] 40453DN: 05/24/2017 Secondary NOT GIVENUNK [place] Insurance:SELF PAY [facility] Number: Effective Repository Date:2017-05-24 05/21/2017 TRAMAINE S Primary Insurance:C TR[place]INE S [place] [id number] E COMMUNITY PLANPolicy COBLENTZDOB: Community PROSPECT Number: [id number], [place] [id number] Repository 50394Jpl: (330) Date:6927-09-59CW [address] [phone] () [address] [place] [address] 17327BD: 05/21/2017 Secondary NOT GIVENUNK [place] Insurance:SELF PAY [facility] Number: Effective Repository Date:2017-05-21 05/21/2017 TRAMAINE S Primary Insurance:C TRAMAINE S [place] [id number] E COMMUNITY PLANPolicy COBLENTZDOB: Community PROSPECT Number: [id number], [place] [id number] Repository 02021Ehc: (330) Date:4903-77-65SJ [address] [phone] () [address] [place] [address] 38422TZ: 05/21/2017 Secondary NOT GIVENUNK [place] Insurance:SELF PAY [facility] Number: Effective Repository Date:2017-05-14 05/13/2017 TRAMAINE S Primary Insurance:[facility] TRAMAINE S [place] [id number] E COMMUNITY PLANPolicy COBLENTZDOB: Community PROSPECT Number: [id number], [place] [id number] Repository 40519Zzx: (330) Date:6244-02-25CL [address] [phone] () [address] [place] [address] 34415UA: 05/13/2017 Secondary NOT GIVENUNK [place] Insurance:SELF PAY [facility] Number: Effective Repository Date:2017-05-13 05/03/2017 TRAMAINE S Primary Insurance:[facility] TRAMAINE S [place] [id number] E COMMUNITY PLANPolicy COBLENTZDOB: Community PROSPECT Number: [id number], [place] [id number] Repository 16390Clp: (330) Date:2507-02-83TM [address] [phone] () [address] [place] [address] 20146QZ: 05/03/2017 Secondary NOT GIVENUNK [place] Insurance:SELF PAY [facility] Number: Effective Repository Date:2017-04-28 04/30/2017 TRAMAINE S Primary Insurance:[facility] TRAMAINE S [place] [id number] E COMMUNITY PLANPolicy COBLENTZDOB: Community PROSPECT Number: [id number], [place] [id number] Repository 86130Qzd: (330) Date:6895-32-61SP [address] [phone] () [address] [place] [address] 12967DX: 04/30/2017 Secondary NOT GIVENUNK [place] Insurance:SELF PAY [facility] Number: Effective Repository Date:2017-04-30 04/30/2017 TRAMAINE S Primary Insurance:[facility] TRAMAINE S [place] [id number] E COMMUNITY PLANPolicy COBLENTZDOB: Community PROSPECT Number: [id number], [place] [id number] Repository 44523Aar: (330) Date:5375-11-36FL [address] [phone] () [address] [place] [address] 09375WB: 04/30/2017 Secondary NOT GIVENUNK [place] Insurance:SELF PAY [facility] Number: Effective Repository Date:2017-04-30 04/30/2017 TRAMAINE S Primary Insurance:[facility] TRAMAINE S [place] [id number] E COMMUNITY PLANPolicy COBLENTZDOB: Community PROSPECT Number: [id number], [place] [id number] Repository 61094Nhb: (330) Date:4381-45-41KH [address] [phone] () [address] [place] [address] 36679LM: 04/30/2017 Secondary NOT GIVENUNK [place] Insurance:SELF PAY [facility] Number: Effective Repository Date:2017-04-30 04/30/2017 TRAMAINE S Primary Insurance:[facility] TRAMAINE S [place] [id number] E COMMUNITY PLANPolicy COBLENTZDOB: Community PROSPECT Number: [id number], [place] [id number] Repository 13134Bqu: (330) Date:2225-02-79MZ [address] [phone] () [address] [place] [address] 85031MB: 04/30/2017 Secondary NOT GIVENUNK [place] Insurance:SELF PAY [facility] Number: Effective Repository Date:2017-04-30 04/30/2017 TRAMAINE S Primary Insurance:[facility] TRAMAINE S [place] [id number] E COMMUNITY PLANPolicy COBLENTZDOB: Community PROSPECT Number: [id number], [place] [id number] Repository 38727Azh: (330) Date:9898-73-19LS [address] [phone] () [address] [place] [address] 23247RL: 04/30/2017 Secondary NOT GIVENUNK [place] Insurance:SELF PAY [facility] Number: Effective Repository Date:2017-04-30 04/30/2017 TRAMAINE S Primary Insurance:[facility] TR[place]INE S [place] [id number] E COMMUNITY PLANPolicy COBLENTZDOB: Community PROSPECT Number: [id number], [place] [id number] Repository 56847Dge: (330) Date:3041-60-46RG [address] [phone] () [address] [place] [address] 12505FV: 04/30/2017 Secondary NOT GIVENUNK [place] Insurance:SELF PAY [facility] Number: Effective Repository Date:2017-04-30 04/30/2017 TRAMAINE S Primary Insurance:[facility] TR[facility]INE S [place] [id number] E COMMUNITY PLANPolicy COBLENTZDOB: Community PROSPECT Number: [id number], [place] [id number] Repository 14376Dzz: (330) Date:4084-82-36FL [address] [phone] () [address] [place] [address] 33835II: 04/30/2017 Secondary NOT GIVENUNK [place] Insurance:SELF PAY [facility] Number: Effective Repository Date:2017-04-30 04/30/2017 TRAMAINE S Primary Insurance:C TRAMAINE S [place] [id number] E COMMUNITY PLANPolicy COBLENTZDOB: Community PROSPECT Number: [id number], [place] [id number] Repository 04720Tzd: (330) Date:1499-89-09RT [address] [phone] () [address] [place] [address] 37471QF: 04/30/2017 Secondary NOT GIVENUNK [place] Insurance:SELF PAY [facility] Number: Effective Repository Date:2017-04-30 04/30/2017 TRAMAINE S Primary Insurance:[facility] TRAMAINE S Her[place] [id number] E COMMUNITY PLANPolicy COBLENTZDOB: Community PROSPECT Number: [id number], [place] [id number] Repository 62753Rxa: (330) Date:3595-28-57NU [address] [phone] () [address] [place] [address] 92363NN: 04/30/2017 Secondary NOT GIVENUNK [place] Insurance:SELF PAY [facility]: Effective Repository Date:2017-04-30 04/30/2017 TRAMAINE S Primary Insurance:[facility] TRAMAINE S Herb [id number] E COMMUNITY PLANPolicy COBLENTZDOB: Community PROSPECT Number: [id number], [place] [id number] Repository 27066Egl: (330) Date:7926-29-21KS [address] [phone] () [address] [place] [address] 42020AI: 04/30/2017 Secondary NOT GIVENUNK [place] Insurance:SELF PAY [facility] Number: Effective Repository Date:2017-04-30 04/30/2017 TRAMAINE S Primary Insurance:[facility] TRAMAINE S Herb [id number] E COMMUNITY PLANPolicy COBLENTZDOB: Community PROSPECT Number: [id number], [place] [id number] Repository 09905Dxt: (330) Date:5515-11-90BI [address] [phone] () [address] [place] [address] 82694RZ: 04/30/2017 Secondary NOT GIVENUNK [place] Insurance:SELF PAY [facility] Number: Effective Repository Date:2017-04-30 04/28/2017 TRAMAINE S Primary Insurance:[facility] TRAMAINE S [place] [id number] E COMMUNITY PLANPolicy COBLENTZDOB: Community PROSPECT Number: [id number], [place] [id number] Repository 68283Vvp: (330) Date:1257-95-16LE [address] [phone] () [address] [place] [address] 52630BN: 04/28/2017 Secondary NOT GIVENUNK [place] Insurance:SELF PAY [facility]: Effective Repository Date:2017-04-22 04/24/2017 TRAMAINE S Primary Insurance:[facility] TRAMAINE S Herb [id number] E COMMUNITY PLANPolicy COBLENTZDOB: Community PROSPECT Number: [id number], [place] [id number] Repository 70471Cay: (330) Date:6323-20-95VV [address] [phone] () [address] [place] [address] 21679PQ: 04/24/2017 Secondary NOT GIVENUNK [place] Insurance:SELF PAY [facility] Effective Repository Date:2017-04-24 04/21/2017 TRAMAINE S Primary Insurance:[facility] TRAMAINE S [place] [id number] E COMMUNITY PLANPolicy COBLENTZDOB: Community PROSPECT Number: [id number], [place] [id number] Repository 34795Ler: (330) Date:8795-28-89WC [address] [phone] () [address] [place] [address] 34868MO: 04/21/2017 Secondary NOT GIVENUNK [place] Insurance:SELF PAY [facility] Number: Effective Repository Date:2017-04-21 04/20/2017 TRAMAINE S Primary Insurance:[facility] TRAMAINE S Herb [id number] E COMMUNITY PLANPolicy COBLENTZDOB: Community PROSPECT Number: [id number], [place] [id number] Repository [address]99[address]Xzq: (330) Date:7812-69-28LD [phone] () [address] [place] [address] [id number]: 04/20/2017 Secondary NOT GIVENUNK [place] Insurance:SELF PAY [facility] Number: Effective Repository Date:2017-03-05 04/20/2017 TRAMAINE S Primary Insurance:[facility] TRAMAINE S [place] [id number] [address] COMMUNITY PLANPolicy COBLENTZDOB: Community PROSPECT Number: [id number], [place] [id number] Repository [address]Lep: (330) Date:9217-72-44BV [phone] () [address] [place] [address] 33432IW: 04/20/2017 Secondary NOT GIVENUNK [place] Insurance:SELF PAY [facility] Number: Effective Repository Date:2017-04-20 04/19/2017 TRAMAINE [place] Primary Insurance:[facility] TRAMAINE S Herb [id number] E COMMUNITY PLANPolicy COBLENTZDOB: [facility] PROSPECT Number: [id number], [place] [id number] Repository [id number]: 330) Date:0269-49-77TI [phone] () [address] [place] [address] [id number]: 04/19/2017 Secondary NOT GIVENUNK [place] Insurance:SELF PAY [facility] Number: Effective Repository Date:2017-04-19
== END 2018-04-12 21:22 | disposition home or self-care (01) ==
PROVIDERS: Emergency Provider Emergency Medicine; Family Provider Family Medicine; PCP Family Medicine
DX: R00.2 Palpitations (principal); Z98.84 Bariatric surgery status; I10 Essential (primary) hypertension
CPT/HCPCS: 71045; 80048; 84443; 84484; 84703; 85025; 85379; 93005; 96374; 99284; A4216

== ENCOUNTER 2018-07-22 14:57 | Emergency (ER) | payer MEDICAID, SELFPAY ==
[2018-06-16 15:08] VITALS: BMI 35.2
[2018-07-22 14:59] VITALS: BP 163/106; PULSE 104; RESP 18; TEMP 36.4; O2SAT 98; BMI 36.4
--- NOTE | 2018-07-22 15:10 | CT_ITS ---
STUDY: CT BRAIN WITHOUT CONTRAST REASON FOR EXAM: Female, 33 years old. Headache. RADIATION DOSAGE (If Supplied By Facility): CTDIvol = ( 60.81 ) mGy, DLP = ( 1044.28 ) mGycm TECHNIQUE: Transaxial CT imaging of the brain was performed without administration of intravenous contrast material. Individualized dose optimization techniques were used for this CT. COMPARISON: No relevant priors. FINDINGS: Normal soft tissue structures. Normal calvarium. Normal size ventricles and extra-axial spaces for the patient's age. Normal white matter tracts of the cerebral hemispheres. Normal basal ganglia and thalami. Normal brainstem. Normal cerebellum. There is no intracranial hemorrhage. There are no findings of an acute ischemic infarction. Normal visualized paranasal sinuses. CT/Brain/Head without Contrast IMPRESSION: Normal unenhanced CT scan of the brain. Electronically Signed: Jett Bradford MD at 15:59 EDT , Service support ,
[2018-07-22] MEDS: proCHLORPERazine 10 MG/2 ML Vial IV (15:30)
[2018-07-22] MEDS: DiphenhydrAMINE 50 MG/ML Syringe IV (15:30)
[2018-07-22] MEDS: 0.9% Normal Saline 1,000 ML 999 ML IV (15:30)
--- NOTE | 2018-07-22 16:05 | ED.VISSUMM ---
- ER Visit Summary Date of Service: 07/22/18 Chief Complaint: Headache History of Present Illness: The patient is a 33 F with headaches. Symptoms started about 6 days ago. They came on gradually and are getting worse. Nothing seemed to bring them on. Worse with light. Nothing seems to make them better. She saw her PCP earlier in the week and was treated with Imitrex, but it is not helping. She denies any trauma. Denies any fevers. Denies neck rigidity. Denies any focal weakness or numbness. Denies blood thinner use. Denies any history of headaches. She does have a history of hypertension and kidney stones. Patient has been having intermittent nosebleeds over the last several days. She did have some sinus symptoms, but they seem to be resolving. Physical Examination: Afebrile and vital signs unremarkable except for a blood pressure of 163/106. Patient is alert and oriented. Nontoxic, sitting in a dark room. HEENT exam unremarkable. Nose normal. Neck nontender with no meningeal signs. Heart regular. No respiratory distress. Skin normal in color. Alert and oriented. Cranial nerves grossly intact. Normal strength and sensation. Test Results: CT brain negative for any acute abnormality. Emergency Department Course and Treatment: Patient presents with acute headache. She appears uncomfortable but not toxic or distress. I have low suspicion for hemorrhage. A noncontrast CT was unremarkable. I do not believe there is indication for further imaging, LP, or other diagnostic testing. Patient was treated with Compazine, Benadryl, and fluids. She is allergic to anti-inflammatories. Patient is improved on reevaluation and will be discharged to follow-up as an outpatient. She should call her primary doctor. Return in anytime for any new or worsening issues. She was counseled about hypertension. Treatment Plan: As above Disposition: Discharge Impression: 1. Acute cephalgia This note was generated with [employer] dictation software. It may contain incorrect words, spelling, and punctuation that were not noted in review of the chart prior to signing ED Disposition - Plan for ED Patient: Referrals: Bethel Jauregui III, MD [Primary Care Provider] -
--- NOTE | 2018-07-22 16:08 | ED.DEP ---
ED Disposition - Plan for ED Patient: Instructions: ED Cephalgia Unspecified Referrals: Bethel Jauregui III, MD [Primary Care Provider] -
[2018-07-22 16:21] VITALS: BP 151/85; PULSE 79; RESP 18; O2SAT 97
== END 2018-07-22 16:22 | disposition home or self-care (01) ==
LOC: ED 15:36
PROVIDERS: Emergency Provider Emergency Medicine; Family Provider Family Medicine; PCP Family Medicine
DX: R51 Headache (principal); R11.0 Nausea; I10 Essential (primary) hypertension; Z87.442 Personal history of urinary calculi; Z98.84 Bariatric surgery status
CPT/HCPCS: 70450; 96361; 96374; 96375; 99284; J7030; A4216

== ENCOUNTER 2019-01-05 17:26 | Emergency (ER) | payer MEDICAID, SELFPAY ==
[2018-10-20 15:39] VITALS: BMI 36.4
[2019-01-05 17:26] VITALS: BP 212/107; PULSE 89; RESP 16
[2019-01-05 17:27] VITALS: BP 212/107; PULSE 89; RESP 16; TEMP 36.1; BMI 37.0
--- NOTE | 2019-01-05 17:42 | CT_ITS ---
STUDY: CT ABDOMEN AND PELVIS WITHOUT CONTRAST REASON FOR EXAM: Female, 34 years old. Right flank pain. RADIATION DOSAGE (If Supplied By Facility): CTDIvol = ( 19.43 ) mGy, DLP = ( 1048.61 ) mGycm TECHNIQUE: Transaxial images were obtained from the dome of the diaphragm to the symphysis pubis without oral contrast, and without intravenous contrast. Sagittal and coronal images were reconstructed. Individualized dose optimization techniques were used for this CT. COMPARISON: 21 September 2017 FINDINGS: The visualized lung bases are unremarkable. The visualized portions of the heart are within normal limits. Normal liver. There are surgical clips in the gallbladder fossa consistent with a prior cholecystectomy. Normal spleen. Normal pancreas. Normal bilateral adrenal glands. Normal right kidney. Punctate nonobstructive left renal nephrolith is present without hydronephrosis. Postoperative changes at the GE junction consistent with previous gastric bypass are noted. Normal small intestine. Normal colon. The appendix is visualized and appears normal. Normal abdominal aorta. Normal inferior vena cava. Normal retroperitoneum. Bladder is partially contracted. Right adnexal simple appearing cyst is present measuring approximately 3.2 cm in diameter with additional left adnexal likely ovarian cyst measuring 2.2 cm. Normal abdominal wall. Degenerative changes at L5/S1 are present. CT/Abdomen/Pelvis without Cont IMPRESSION: 1. No evidence of hydronephrosis or obstructive nephropathy with particular attention to the right kidney. Left nonobstructive nephrolith is noted. Otherwise no evidence of acute intra-abdominal process or focal inflammation. Cholecystectomy. Normal appendix. 2. Right adnexal 3.2 cm cyst likely ovarian is present, further evaluation with ultrasound may be obtained as clinically warranted. Electronically Signed: Andriy Flower DO at 19:59 EDT , Service support ,
--- NOTE | 2019-01-05 18:29 | ED.VISSUMM ---
- ER Visit Summary Date of Service: 01/05/19 Chief Complaint: Right flank pain History of Present Illness: The patient is a [address] Bethel Jauregui. She has a history of kidney stones in the past and has had multiple procedures for these. She reports that her urologist had been Dr. Patel, but that he recently retired. Patient reports that she has right flank pain that began 3 days ago. She states that she passed 2 kidney stones 2 days ago. However, the pain is gotten much worse today. It is a sharp, stabbing pain that is 9 out of 10 at worst an 8 out of 10 currently. Worsened by remaining still and relieved by movement. She reports she has been nauseated, but she last vomited 3 days ago. No blood or emesis. No diarrhea. Her last bowel was today. No melena hematochezia. She has had frequent urination with hematuria. However she denies dysuria. Her last menstrual. Was December 29. She denies any vaginal bleeding or discharge. On review of system patient reports that she had a fever to 101.3 degrees today. She denies any other complaints. Physical Examination: Vitals: Stable. Afebrile. General: Well-nourished and well-developed. Head: Normocephalic atraumatic. Neck: Supple, no lymphadenopathy. No JVD. Nontender. Cardiovascular: Regular rate and rhythm. No murmurs. Respiratory: No respiratory distress. Clear to auscultation bilaterally. Abdominal: Soft, mild right CVA tenderness, nondistended, normal bowel sounds. No guarding, rebound, or peritoneal signs. Back: Nontender. Extremities: Nontender, no edema. Skin: Normal color, no rash. Neurologic: Alert and oriented ?3. Cranial nerves II through XII are intact. Normal strength and sensation. Psych: Normal affect. Test Results: CBC shows an H&H of 8.5 and 30.4, monocytes of 10. Of note her hemoglobin was 9.2 in March. Chem-7 is normal. Lactic acid is normal. UA is negative. test is negative. Clinical Impression(s) from Imaging Studies Abdomen/Pelvis CT 01/05/19 17:42 IMPRESSION: 1. No evidence of hydronephrosis or obstructive nephropathy with particular attention to the right kidney. Left nonobstructive nephrolith is noted. Otherwise no evidence of acute intra-abdominal process or focal inflammation. Cholecystectomy. Normal appendix. 2. Right adnexal 3.2 cm cyst likely ovarian is present, further evaluation with ultrasound may be obtained as clinically warranted. Electronically Signed: Andriy Flower DO at 19:59 EDT , Service support , Emergency Department Course and Treatment: Patient had an IV placed. She was given a liter normal saline. She was given morphine and Zofran IV. She is resting more comfortably. Treatment Plan: This time I do not have an expiration for the patient's flank pain. She reports that she has had multiple kidney stones in the past and suspects that this is 1 again. She will be discharged with prescription for 10 [place] and instructed to follow-up Dr. Bethel Jauregui for further treatment of her chronic pain. She is also given the name of Dr. Gutierrez to follow-up with her as well. Return to the emergency department for any worsening symptoms. Disposition: To home in improved and stable condition. Impression: 1. Right flank pain, uncertain cause. 2. Right ovarian cyst. This note was generated with [employer] dictation software. It may contain incorrect words, spelling, and punctuation that were not noted in review of the chart prior to signing ED Disposition - Plan for ED Patient: Disposition: Home or Assisted Living Instructions: FLANK PAIN, Uncertain Cause Prescriptions: Hydrocodone Bitart/Apap 5-325 [[place] 5MG-325MG] 1 tab PO Q4H PRN PRN 2 Days #10 tab PRN Reason: Pain Prescription Printed Referrals: Bethel Jauregui III, MD [Primary Care Provider] - 1-2 Days if not improving Juan J Gutierrez MD [STAFF PHYSICIAN] -
[2019-01-05 18:36] VITALS: RESP 16
[2019-01-05] MEDS: 0.9% Normal Saline 1,000 ML 250 ML IV (18:48)
[2019-01-05] MEDS: Ondansetron 4 MG/2 ML Vial IV (18:48)
[2019-01-05] MEDS: Morphine 4 MG/ML Syringe IV (18:49)
[2019-01-05 19:08] VITALS: RESP 16
[2019-01-05 19:13] LABS: Absolute Lymphocyte Count 1.72 X10^3/uL (0.83-4.51); Absolute Neutrophil Count 3.8 X10^3/uL (2.0-7.7); Basophil# 0.09 X10^3/uL; Basophil% 1.4 % (0-1); Eosinophil# 0.16 X10^3/uL; Eosinophils% 2.5 % (0-5); Hematocrit 30.4 % (37-47); Hemoglobin 8.5 g/dL (12.0-15.0); Lymphocyte # 1.72 X10^3/ul (4.0); Lymphocyte % 26.8 % (19-41); Mean Corpuscular Hgb 18.9 pg (27.0-32.0); Mean Corpuscular Volume 67.6 fL (81-99); Mean Platelet Vol. 11.7 fl (6.2-12.0); Monocyte# 0.65 X10^3/uL; Monocyte% 10.1 % (0-10); NRBC Flagged by Analyzer 0 % (0-5); Neutrophil # 3.79 X10^3/uL (2.7-7.7); Platelet Count 324 K/mm3 (150-450); RBC Distribution Width CV 16.4 % (11.6-14.6); RBC Distribution Width SD 38.8 fl (35.1-43.9); White Blood Count 6.4 K/mm3 (4.4-11.0)
[2019-01-05 19:21] VITALS: BP 195/114; PULSE 82; RESP 16; O2SAT 100
[2019-01-05 19:25] LABS: Anion Gap 8 (5-15); BUN 16 mg/dL (7-18); BUN/Creat Ratio 26.9 RATIO (10-20); Calcium,Total 9.2 mg/dL (8.5-10.1); Chloride 105 mmol/L (98-107); EST Glomerular Filtration Rate 124 mL/min (>60); Est Glom Filt Rate - Afr Amer 150 mL/min (>60); Estimated Creatinine Clearance 124.85 ml/min; Glucose 79 mg/dL (74-106); Internal QC Validated? YES +Cl - CLEAR BKGD; Potassium 3.6 mmol/L (3.5-5.1); Pregnancy, Serum, hCG Quali. NEGATIVE Negative; Sodium Level 139 mmol/L (136-145)
[2019-01-05 19:34] LABS: Color, Urine Yellow (Yellow); Glucose, Dipstick Normal (Normal); Ketone-Dipstick 50 mg/dl (Negative); Leukocyte Esterase-Dipstick 100 /ul (Negative); Nitrite-Dipstick Negative (Negative); Occult Blood-Urine 250 /ul (Negative); Protein-Dipstick 30 mg/dl (Negative); Specific Gravity, Urine 1.025 (1.002-1.030); Urine Bilirubin Dipstick Negative (Negative); Urine Clarity Cloudy (Clear); Urine Urobilinogen Normal (Normal)
[2019-01-05 19:36] LABS: Mucous, Urine RARE /hpf (<or=2+)
[2019-01-05 19:38] LABS: Bacteria 3+ /hpf (None Seen); Red Blood Cells-Urine 0-5 SEEN /hpf (0-5); Squamous Epithelial Cells - UA 10-25 SEEN /hpf (5-10)
[2019-01-05 19:39] LABS: Lactic Acid 1.1 mmol/L (0.4-2.0)
[2019-01-05 19:40] LABS: White Blood Cells 5-10 SEEN /hpf (0-5)
[2019-01-05 19:43] LABS: POSITIVE COUNT NO; POSITIVE DIFFERENTIAL NO; POSITIVE MORPHOLOGY NO
[2019-01-05 20:41] VITALS: BP 194/104; PULSE 86; RESP 16; O2SAT 100
== END 2019-01-05 20:43 | disposition home or self-care (01) ==
LOC: ED 17:55
PROVIDERS: Emergency Provider Emergency Medicine; Family Provider Family Medicine; PCP Family Medicine
DX: R10.9 Unspecified abdominal pain (principal); N83.201 Unspecified ovarian cyst, right side; R50.9 Fever, unspecified; N20.0 Calculus of kidney; I10 Essential (primary) hypertension; E03.9 Hypothyroidism, unspecified; Z87.442 Personal history of urinary calculi; Z90.49 Acquired absence of other specified parts of digestive tract; Z79.899 Other long term (current) drug therapy
CPT/HCPCS: 74176; 80048; 81001; 83605; 84703; 85025; 87086; 87088; 96361; 96374; 96375; 99285; J7030; A4216; J2405

== ENCOUNTER 2019-02-21 16:09 | Observation (INO) | payer MEDICAID, SELFPAY ==
[2018-10-20 15:39] VITALS: BMI 36.4
[2019-02-15 07:42] LABS: Hematocrit 31.3 % (37-47); Hemoglobin 8.8 g/dL (12.0-15.0); Mean Corp Hgb Conc 28.1 g/dL (32-36); Mean Corpuscular Hgb 18.2 pg (27.0-32.0); Mean Corpuscular Volume 64.7 fL (81-99); Mean Platelet Vol. 11.2 fl (6.2-12.0); Platelet Count 337 K/mm3 (150-450); RBC Distribution Width SD 40.1 fl (35.1-43.9); Red Blood Count 4.84 M/mm3 (4.2-5.4)
[2019-02-15 07:51] LABS: Prothrombin Time (Protime)PT. 12.5 SECONDS (11.7-14.9)
[2019-02-15 07:52] LABS: Partial Thromboplast Time 22.4 Seconds (24.1-36.2)
[2019-02-15 08:12] LABS: Thyroid Stim Hormone (TSH) 2.84 uIU/mL (0.358-3.74)
--- NOTE | 2019-02-20 18:25 | HP.PCM_ITS ---
History and Physical Date of Admission: 02/21/19 HISTORY OF PRESENT ILLNESS 34-year-old woman presents with a painful infected skin graft scar contour deformity vulva and mons pubis area after developing an infected hematoma that resulted in surgery on 05/03/17 where she underwent surgical preparation lower anterior abdominal wall and pubic area with incision and drainage and excisional debridement infected seroma/hematoma (250 cm2). Her initial surgery was on 04/20/17 where she underwent excision 8 cm painful soft tissue mass pubic area with 20 cm complex closure. Operative culture showed Staphylococcus aureus and was treated with antibiotics. After discharge, she had another culture done on 05/30/17 which showed Staphylococcus aureus and Morganella morganii and was treated with antibiotics. Her initial infected wound was treated with the VAC and then changed to Silver dressings daily because of too much pain with the VAC. During the wound care, the patient developed persistent swelling in her mons pubis area resulting in a lymphedema-type picture. It was recommended to the patient to excise this lymphedema tissue in her genitalia involving the mons pubis with a partial vulvectomy to help debulk the area which should help with her persistent pain in the nonhealing ulcer mons pubis area. On 07/20/17 she underwent surgical preparation vulva involving mons pubis with excision painful infected ulcer and excision associated painful lymphedema with partial vulvectomy (120 cm2). She has persistent pain in the area of the ulceration in the mons pubis area and underwent surgical preparation vulva involving the mons pubis area with excisional debridement nonhealing ulcer with STSG reconstruction from the right lateral abdominal wall (15 cm2) and placement of ANGIE NPWT. Operative culture showed Staphylococcus aureus and she was treated with Levaquin. She presents today for further evaluation and treatment. PAST MEDICAL HISTORY Back problem (Acute) Bladder infection (Acute) Excessive weight loss (Acute) Gallstones (Acute) Intertrigo (Acute) Kidney stones (Acute) Soft tissue mass (Acute) Stomach ulcer (Acute) Vitamin deficiency (Acute) High blood pressure (Chronic) PAST SURGICAL HISTORY History of cholecystectomy (Acute) History of gastric bypass (Acute) History of incision and drainage (Acute) History of incision and drainage (Acute) History of nephrolithotomy with removal of calculi (Acute) History of thyroidectomy (Acute) Status post panniculectomy (Acute ~09/17/16) ALLERGIES methocarbamol Allergy (Verified 10/20/18 15:38) Chest tightness gabapentin Adverse Reaction (Verified 10/20/18 15:38) MADE ME WALK SIDEWAYS ketorolac tromethamine [From Toradol] Adverse Reaction (Verified 10/20/18 15:38) Upset Stomach NSAIDS (Non-Steroidal Anti-Inflamma Adverse Reaction (Verified 10/20/18 15:38) gastric bipass not supposed to take tramadol Adverse Reaction (Verified 10/20/18 15:38) Upset Stomach MEDICATIONS Amitriptyline HCl [Elavil] 50 mg PO QHS PRN 04/30/17 [History Confirmed 07/22/18] Ergocalciferol [Vitamin D] 50,000 unit PO QWEEK 04/30/17 [History Confirmed 07/22/18] Etonogestrel [Nexplanon] 68 mg SQ UD 04/30/17 [History Confirmed 07/22/18] Tamsulosin HCl [Flomax] 0.4 mg PO DAILY PRN 04/30/17 [History Confirmed 07/22/18] Lisinopril [Zestril] 40 mg PO BID 05/30/17 [History Confirmed 07/22/18] Ondansetron [Zofran Odt] 4 mg PO Q8H PRN PRN #20 tab 06/01/17 [Rx Confirmed 07/22/18] Cyanocobalamin [Vitamin B12] 1,000 mcg IM Q30D 07/06/17 [History Confirmed 07/22/18] Hydrocodone/Acetaminophen [[place] 10-325 Tablet] 1 ea PO 4X/DAY PRN PRN 7 Days #30 tab 10/19/17 [Rx Confirmed 07/22/18] Hydroxyzine HCl 25 mg PO QHS PRN 07/22/18 [History Confirmed 07/22/18] Levothyroxine [Synthroid] 25 mcg PO DAILY 07/22/18 [History Confirmed 07/22/18] Metoprolol Succinate 25 mg PO DAILY 07/22/18 [History Confirmed 07/22/18] Sumatriptan Succinate 50 mg PO Q2H PRN PRN 07/22/18 [History Confirmed 07/22/18] FAMILY HISTORY Mother - Anxiety, Bleeding disorder, Depression, Hypertension, High cholesterol, Cancer Father - Diabetes, Hypertension Grandfather - Colon cancer, Diabetes, Heart disease SOCIAL HISTORY Smoking Status: Never smoker second hand exposure: Yes alcohol intake: current substance use type: does not use REVIEW OF SYSTEMS General-denies fever. Has some fatigue. Has had major weight loss since her gastric bypass procedure done a year and a half ago. She lost 180 pounds. Ear nose and throat-denies nasal congestion. Denies sore throat. Eyes-denies glaucoma. Denies cataracts. Endocrine-denies excessive thirst or urination. Skin-has an abdominal wall skin crease intertrigo for which she uses powders for relief. She has lymphedema genitalia involving genitocrural areas up to the labia. Has painful infected skin graft scar contour deformity in the vulval and mons pubis area. Musculoskeletal-denies joint pain, joint stiffness, weakness of muscles and joints, neck pain, and arthritis. Neurologic-has headaches. Cardiovascular-denies chest pain. Has some fatigue. Denies shortness of breath with exertion. Psychiatric-denies anxiety. Denies depression. Respiratory-denies shortness of breath. Denies chronic cough. Gastrointestinal-denies nausea, vomiting, diarrhea, constipation. Denies abdominal bloating. Hematologic-denies abnormal bruising or bleeding. Genitourinary-denies hematuria and urinary frequency. PHYSICAL EXAMINATION General-well developed, well nourished, in no acute distress. HEENT-pupils equal round and reactive to light. Extraocular muscles intact. Throat is clear. Neck-supple and nontender. No cervical adenopathy. Lungs-clear to auscultation. Heart-regular rate and rhythm. Abdomen-soft and nondistended. There is abdominal wall scarring from previous abdominal panniculectomy. No abdominal masses noted. No ventral hernias noted. In the vulval and mons pubis area is a painful infected skin graft scar contour deformity. Tenderness to palpation. No evidence of infection. Extremities-full range of motion. No axillary adenopathy. No inguinal adenopathy. Radial pulses and dorsalis pedis pulses are palpable. Neuro-cranial nerves II through XII grossly intact. ASSESSMENT 1. Painful infected skin graft scar contour deformity vulva involving the mons pubis area. 2. 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 3. 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 PLAN Because of her persistent pain, I recommend surgical preparation vulval and mons pubis area with excisional debridement painful infected skin graft scar contour deformity. Will send tissue to Pathology for analysis to rule out carcinoma and to Microbiology for culture. A positive culture will necessitate antibiotic therapy. Reconstruction will necessitate with mobilizing abdominal wall skin flap with an advancement skin flap reconstruction. I want to avoid another skin graft in this area as it would be prone to develop similar symptomatology in the future. be with skin grafting. Donor site will be the abdominal wall. Surgery will be done under general anesthesia with a surgical observation overnight stay in the hospital. She will have drains in for several days and be maintained on antibiotics until the drains are removed. She will wear a abdominal wall binder for several weeks. She will be on a lifting restriction as well, (20 lbs). Patient was informed of the risks and complications of the procedure including alternatives to surgery. These were discussed with the patient personally. Patient voices understanding and wishes to proceed. Some of the risks and complications were included in a form from the [employer]. Later on after her symptomatology has resolved, we can address her lymphedema in her genitalia for staged excision as well. The patient was informed of the risks and complications of the procedure inclu ding alternatives to surgery. These were discussed with the patient personally. The patient voices understanding and wishes to proceed.
[2019-02-21] VITALS (12 sets, daily range): BP systolic 133–164; BP diastolic 66–96; PULSE 89–116; RESP 15–18; TEMP 36.6–37.2; O2SAT 93–100; BMI 37.2
[2019-02-21] MEDS: Lactated Ringers 1,000 ML 100 ML IV (09:56)
[2019-02-21 10:12] LABS: Internal QC Validated? YES +Cl - CLEAR BKGD; Pregnancy, Urine Negative Negative
--- NOTE | 2019-02-21 10:45 | VUL_PTH ---
PATIENT: ISIDORO PENG LOC: [facility]3 U#:[id number] AGE/SX: 34/F ROOM: MS312 RE02/21/[address]: Dr. Gigi Mendieta MD : 1985 BED: 1 DIS: 02/23/2019 SPEC #: [id number] RECD: 02/21/19 15:03 STATUS: RAFAELA PERKINSGeovanna #: [id number] ANGELA: 02/21/19 10:[address]: Gigi Mendieta DEPT: SURGICAL PATHOLOGY RECD BY: Jarret Lalwer ENTERED: 02/22/19 13:27 SP TYPE: VULVA BX OTHR DR: MD Dr. Bethel Funes III, MD Tissues: Vulva, NOS Procedures: Surgery Specimen Level III HEADER OPERATION: Surgical prep vulval and mons pubis area PRE-OP DIAGNOSIS: Painful infected skin graft scar contour deformity vulva involving mons pubis area TISSUE SUBMITTED: Vulval and mons pubis infected skin graft MICROSCOPIC DIAGNOSIS Vulval and mons pubis infected skin graft: A piece of skin with underlying tissue with mild chronic inflammation and dense fibrosis. MORENA:lucinda 02/23/19 MICROSCOPIC DESCRIPTION Slides are reviewed. GROSS DESCRIPTION Received in fixative is one container labeled with the patient's name and designated vulval and mons pubis infected skin graft. The specimen consists of a piece of skin with underlying tissue measuring 14.5 x 5 cm and up to 1 cm in thickness. No skin lesion is identified. [employer] sections are submitted in three cassettes. / MORENA:lucinda 02/22/19 TC:5 CPT: 03097
[2019-02-21] MEDS: Ceftriaxone 1 GM/50 ML BAG IV (12:08)
--- NOTE | 2019-02-21 15:05 | PCM.OPRPT ---
Report of Operation Date of Procedure: 02/21/19 Pre-Operative Diagnosis: 1. Painful infected skin graft scar contour deformity vulva involving the mons pubis area. 2. 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 3. 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 Post-Operative Diagnosis: Same. Surgery/Procedure Performed:: 1. Surgical preparation vulva involving mons pubis with excisional debridement painful infected skin graft scar contour deformity. 2. Reconstruction with abdominal wall advancement skin flap (215 cm2) and complex secondary wound closure. Description of Surgical Findings:: 34-year-old woman presents with a painful infected skin graft scar contour deformity vulva and mons pubis area after developing an infected hematoma that resulted in surgery on 05/03/17 where she underwent surgical preparation lower anterior abdominal wall and pubic area with incision and drainage and excisional debridement infected seroma/hematoma (250 cm2). Her initial surgery was on 04/20/17 where she underwent excision 8 cm painful soft tissue mass pubic area with 20 cm complex closure. Operative culture showed Staphylococcus aureus and was treated with antibiotics. After discharge, she had another culture done on 05/30/17 which showed Staphylococcus aureus and Morganella morganii and was treated with antibiotics. Her initial infected wound was treated with the VAC and then changed to Silver dressings daily because of too much pain with the VAC. During the wound care, the patient developed persistent swelling in her mons pubis area resulting in a lymphedema-type picture. It was recommended to the patient to excise this lymphedema tissue in her genitalia involving the mons pubis with a partial vulvectomy to help debulk the area which should help with her persistent pain in the nonhealing ulcer mons pubis area. On 07/20/17 she underwent surgical preparation vulva involving mons pubis with excision painful infected ulcer and excision associated painful lymphedema with partial vulvectomy (120 cm2). She has persistent pain in the area of the ulceration in the mons pubis area and underwent surgical preparation vulva involving the mons pubis area with excisional debridement nonhealing ulcer with STSG reconstruction from the right lateral abdominal wall (15 cm2) and placement of ANGIE NPWT. Operative culture showed Staphylococcus aureus and she was treated with Levaquin. Patient was informed of the risks and complications of the procedure including alternatives to surgery. These were discussed with the patient personally. Patient voices understanding and wishes to proceed. Some of the risks and complications were included in a form from the [employer]. I used Elin absorbable hemostat, (I used 3 vials). Reference Number - [id number]. Lot Number - [id number]. Expiration - January 16, 2023. business process engineer: Go Fallon. Type of Anesthesia:: General Specimen's removed: 1. Painful infected skin graft scar tissue vulva involving the mons pubis area to Pathology and Microbiology. Drains: Edenilson x2. Estimated Blood Loss (mL): 150 ml. Description of Procedure: Patient was taken to OR in supine position and was placed under general anesthesia. The vulva and abdominal wall areas were prepped and draped in the usual fashion. Ioban draping was also used. SCD's were placed for DVT prophylaxis. Perioperative antibiotics were given intravenously. Using xylocaine with epinephrine, the skin graft scar was infiltrated. After waiting 5 minutes for the anesthetic to take effect, I excised the skin graft scar. Some of the deeper scar was sent to Microbiology for culture. The rest of the skin graft scar tissue was sent to Pathology for analysis to rule out carcinoma. The size of the wound defect was 40 cm2. I made incisions in the lower anterior abdominal wall to create an abdominal wall advancement flap for reconstruction. I made a rhomboid incision around the umbilicus and dissected down to the abdominal wall fascia. I elevated the abdominal wall skin flap at the level of the abdominal wall fascia up to the subcostal margin. The sub-Rubens's fat was excised. I was able to advance the abdominal wall skin flap into the vulval defect at the level of the mons pubis. Hemostasis was obtained with electrocautery. I then irrigated the abdominal wall wound with Irrisept 0.05% Chlorhexidine solution. This was followed by saline irrigation. I placed two Number 15 Edenilson drains through separate stab incisions laterally and secured to the skin with 3-0 Nylon suture. I sprayed Elin absorbable hemostat into the abdominal wall wound to minimize seroma formation. I used 3 vials. I elevated the head of the bed 30 degrees to aid in wound closure. I made an upside down cruciate marking in the area of where the umbilicus will be brought through the abdominal wall skin flap. I excised some of the surrounding subcutaneous tissue in this area to aid in the inward appearance of the umbilicus. I placed 3-0 Vicryl sutures through the dermis of the abdominal wall skin flap to the abdominal wall fascia and then to the dermis of the umbilicus. The umbilicus is on a long stalk so will observe postop regarding the healing of the umbilicus. If healing problems occur, can proceed with wound care until healed. I closed the abdominal wall skin flap in a multiple layered complex closure repair with 2-0 Vicryl figure of eight interrupted sutures for the Rubens's fascial layer. The deep dermis and subcutaneous tissue was approximated with 3-0 Monocryl interrupted sutures. The skin was approximated with 3-0 V lock unidirectional barbed running subcuticular suture. This was followed by Histoacryl skin tissue adhesive. At the time of the abdominal wall skin flap closure, I excised excess tissue laterally from the advancement of the flap. The size of the defect and the size of the flap needed to close the defect was 215 cm2. The umbilicus was then closed with the 3-0 Vicryl sutures. In between these sutures I placed 3-0 Vicryl simple interrupted sutures. At the end of the procedure, the umbilicus was viable with no evidence of vascular compromise. Histoacryl skin tissue adhesive was also applied to the umbilical incision. Dry Kerlix gauze was applied to the incision followed by ABD pads and a compression abdominal wall binder. Grafts/Implants Used: None. - Complications None. - Admit VTE Documentation VTE Present on Admission: No VTE Mechan Device Prophylaxis: SCD's VTE Pharm Prophylaxis ordered?: Yes Code Visit Surgery Charges CPT - 61672 ICD-10 - T86.828, R63.4, E65, I89.0 14092 T86.828, R63.4, E65, I89.0 68418 T86.828, R63.4, E65, I89.0 62362 T86.828, R63.4, E65, I89.0 95742 T86.828, R63.4, E65, I89.0 60326 T86.828, R63.4, E65, I89.0 05176 T86.828, R63.4, E65, I89.0 01092 T86.828, R63.4, E65, I89.0 36257 T86.828, R63.4, E65, I89.0
[2019-02-21] MEDS: Lactated Ringers 1,000 ML 60 ML IV (17:28)
[2019-02-21] MEDS: HYDROmorphone 1 MG/ML Syringe IV ×2 (17:29→20:46)
[2019-02-21] MEDS: Ondansetron 4 MG/2 ML Vial IV (18:10)
[2019-02-21] MEDS: 0.9% Saline Lock 10 ML Syringe IV ×2 (18:10→20:46)
[2019-02-21] MEDS: oxyCODONE 5 MG Tablet 10 MG PO ×2 (18:38→23:33)
[2019-02-21] MEDS: Docusate Sodium 100 MG Capsule PO (21:03)
[2019-02-21] MEDS: Lisinopril 40 MG Tablet PO (21:04)
[2019-02-22] VITALS (9 sets, daily range): BP systolic 124–151; BP diastolic 56–75; PULSE 86–109; RESP 16–18; TEMP 36.4–37.3; O2SAT 95–100
[2019-02-22] MEDS: HYDROmorphone 1 MG/ML Syringe IV ×6 (01:56→22:12)
[2019-02-22] MEDS: Enoxaparin 40 MG/0.4 ML Syringe SC (05:49)
[2019-02-22] MEDS: oxyCODONE 5 MG Tablet 10 MG PO ×4 (05:59→21:08)
[2019-02-22 06:23] LABS: Hematocrit 25.3 % (37-47); Mean Corp Hgb Conc 27.7 g/dL (32-36); Mean Corpuscular Hgb 18.4 pg (27.0-32.0); Mean Corpuscular Volume 66.6 fL (81-99); Mean Platelet Vol. 11.4 fl (6.2-12.0); Platelet Count 346 K/mm3 (150-450); RBC Distribution Width SD 42.4 fl (35.1-43.9)
[2019-02-22 06:49] LABS: Anion Gap 6 (5-15); BUN 9 mg/dL (7-18); BUN/Creat Ratio 13.4 RATIO (10-20); Calcium,Total 8.2 mg/dL (8.5-10.1); Chloride 107 mmol/L (98-107); Creatinine, Serum 0.67 mg/dL (0.55-1.02); EST Glomerular Filtration Rate 108 mL/min (>60); Est Glom Filt Rate - Afr Amer 130 mL/min (>60); Glucose 94 mg/dL (74-106); Potassium 3.8 mmol/L (3.5-5.1); Prealbumin 23.1 mg/dL (20.0-40.0); Sodium Level 138 mmol/L (136-145)
[2019-02-22] MEDS: Ceftriaxone 1 GM/50 ML BAG IV (10:44)
[2019-02-22] MEDS: Lactated Ringers 1,000 ML 60 ML IV (10:44)
[2019-02-22] MEDS: Lisinopril 40 MG Tablet PO ×2 (10:47→21:08)
[2019-02-22] MEDS: Docusate Sodium 100 MG Capsule PO ×2 (10:47→21:08)
[2019-02-22] MEDS: diazePAM 5 MG Tablet PO ×2 (13:40→19:54)
--- NOTE | 2019-02-22 18:38 | PN.SURG_ITS ---
Subjective: Postop #1 Patient complains of incisional pain. - Physical Exam Vitals/I&O's: Vital Signs Temp Pulse Resp BP Pulse Ox 99.0 F 100 16 151/75 H 100 02/22/19 14:48 02/22/19 14:48 02/22/19 14:48 02/22/19 14:48 02/22/19 14:48 Oxygen Delivery Method Room Air Weight: 230 lb 9.656 oz Body Mass Index (BMI) 37.2 Intake and Output for Last 24 Hours 02/20/19 02/21/19 02/22/19 23:59 23:59 23:59 Intake Total 1683.33 / 1683.33 2670 / 2670 Output Total 1090 / 1090 2138 / 2138 Balance 593.33 / 593.33 532 / 532 Drainage 340 ml yesterday, 288 ml today. General: Alert, Oriented x3 HEENT: PERRLA, EOMI Oral: Moist Mucosa Neck: Supple Abdomen: Soft, Non-Distended Skin: Incision - abdominal incision was dry and intact. No clinical evidence of hematoma. Neurological: Cranial nerves II-XII grossly intact Psych/Mental Status: Normal Affect, Appropriate Microbiology Past 72 Hours 02/21/19 15:29 Tissue - Other Gram Stain - Final 02/21/19 15:29 Tissue - Other Wound Culture - Preliminary No growth-Final to follow Laboratory Results 02/22/19 05:46: WBC 11.0, RBC 3.80 L, Hgb 7.0 L, Hct 25.3 L, MCV 66.6 L, MCH 18.4 L, MCHC 27.7 L, RDW Std Deviation 42.4, RDW Coeff of Andrez 18.0 H, Plt Count 346, MPV 11.4 02/22/19 05:46: Sodium 138, Potassium 3.8, Chloride 107, Carbon Dioxide 25.0, Anion Gap 6, BUN 9, Creatinine 0.67, Estim Creat Clear Calc 111.80, Est GFR (MDRD) Af Amer 130, Est GFR (MDRD) Non-Af 108, BUN/Creatinine Ratio 13.4, Glucose 94, Calcium 8.2 L, Prealbumin 23.1 02/22/19 16:35: Blood Type A NEGATIVE, Antibody Screen NEGATIVE, Crossmatch See Detail Current Medications Amitriptyline HCl (Elavil) 50 mg PO QHS PRN PRN Reason: SLEEP Diazepam (Valium) 5 mg PO 4X/DAY PRN PRN PRN Reason: SPASMS Last Admin: 02/22/19 13:40 Dose: 5 mg Documented by: Docusate Sodium (Colace) 100 mg PO BID [facility] Last Admin: 02/22/19 10:47 Dose: 100 mg Documented by: Enoxaparin Sodium (Lovenox) 40 mg SC DAILY@0600 [facility] Last Admin: 02/22/19 05:49 Dose: 40 mg Documented by: Ergocalciferol (Vitamin D) 50,000 unit PO TuTh@0800 [facility] Hydromorphone HCl (Dilaudid Inj) 1 mg IV Q4H PRN PRN PRN Reason: Pain Score 6-10/10 Last Admin: 02/22/19 14:46 Dose: 1 mg Documented by: Ceftriaxone Sodium (Rocephin) 1 gm in 50 mls @ 100 mls/hr IV Q24 [facility] Last Infusion: 02/22/19 11:14 Dose: Infused Documented by: Lactated Ringer's () 1,000 mls @ 60 mls/hr IV .[id number] [facility] Last Admin: 02/22/19 10:44 Dose: 60 mls/hr Documented by: Sodium Chloride () 250 mls @ 15 mls/hr IV .[id number] PRN PRN Reason: Saline Flush Lisinopril (Zestril) 40 mg PO BID [facility] Last Admin: 02/22/19 10:47 Dose: 40 mg Documented by: Nutritional Formula ([place] - [place] Flavor) [facility] Last Admin: 02/22/19 16:59 Dose: Not Given Documented by: Ondansetron HCl (Zofran) 4 mg IV Q6H PRN PRN PRN Reason: NAUSEA Last Admin: 02/21/19 18:10 Dose: 4 mg Documented by: Oxycodone HCl (Oxyir) 10 mg PO Q4H PRN PRN PRN Reason: Pain Score 6-10/10 Last Admin: 02/22/19 16:59 Dose: 10 mg Documented by: Promethazine HCl (Phenergan Tablet) 25 mg PO Q4H PRN PRN PRN Reason: NAUSEA/VOMITING Sodium Chloride () 10 - 40 ml IV UD PRN PRN Reason: SALINE FLUSH Last Admin: 02/21/19 20:46 Dose: 10 ml Documented by: Tamsulosin HCl (Flomax) 0.4 mg PO DAILY PRN PRN Reason: kidney stones Medical Necessity - Tobacco Use Smoking Status: Never smoker Assessment/Plan All Active Problems (Last Reviewed 06/23/18 @ 11:52 by Saeid Wilson MD) Open wound of vulva with complication (Acute) Infection following a procedure, initial encounter (Acute) Hematoma, vulva (Acute) Postoperative hematoma of subcutaneous tissue following dermatologic procedure (Acute) Open wound anterior abdominal wall (Acute) ERIKA (acute kidney injury) (Acute) Cellulitis of abdominal wall (Acute) Cellulitis of pubic region (Acute) Uncontrolled hypertension (Acute) 1. Painful infected skin graft scar contour deformity vulva involving the mons pubis area. 2. 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 3. 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 4. s/p surgical preparation vulva involving mons pubis with excisional debridement painful infected skin graft scar contour deformity and reconstructi on with abdominal wall advancement skin flap (215 cm2) and complex secondary wound closure. 5. Anemia of chronic disease, acute on chronic. Patient complains of incisional pain. Still needs IV analgesia. Continue ambulation with assist. Prealbumin was 23.1. Encourage nutritional supplementation with protein to help the healing process. Operative culture is negative thus far. Continue Ceftriaxone. Hgb is 7.0 which is decreased from 8.8 preoperatively. She has anemia of chronic disease, acute on chronic. There was operative blood loss of 150 ml. There is additional IV dilution with I's/O's positive of approximately 1000 ml. Will transfuse PRBC. Will wean to po analgesia for discharge. Anticipate discharge tomorrow.
[2019-02-22] MEDS: 0.9% Saline Lock 10 ML Syringe IV (22:11)
[2019-02-23 00:22] VITALS: BP 135/68; PULSE 99; RESP 16; TEMP 37; O2SAT 95
[2019-02-23] MEDS: oxyCODONE 5 MG Tablet 10 MG PO ×2 (01:02→05:36)
[2019-02-23 01:04] VITALS: BP 148/62; PULSE 98; RESP 16; TEMP 37; O2SAT 100
[2019-02-23 01:43] VITALS: BP 127/63; PULSE 94; RESP 16; TEMP 37.3; O2SAT 98
[2019-02-23] MEDS: HYDROmorphone 1 MG/ML Syringe IV ×3 (02:17→12:21)
[2019-02-23] MEDS: 0.9% Saline Lock 10 ML Syringe IV ×2 (05:35→12:21)
[2019-02-23] MEDS: Enoxaparin 40 MG/0.4 ML Syringe SC (05:37)
[2019-02-23 05:47] LABS: Hematocrit 28.3 % (37-47); Hemoglobin 8.4 g/dL (12.0-15.0); Mean Corp Hgb Conc 29.7 g/dL (32-36); Mean Corpuscular Hgb 20.8 pg (27.0-32.0); Mean Platelet Vol. 10.6 fl (6.2-12.0); POSITIVE MORPHOLOGY YES; Platelet Count 268 K/mm3 (150-450); RBC Distribution Width CV 21.9 % (11.6-14.6); RBC Distribution Width SD 53.5 fl (35.1-43.9); Red Blood Count 4.04 M/mm3 (4.2-5.4); White Blood Count 7.4 K/mm3 (4.4-11.0)
[2019-02-23 05:56] LABS: Scan Indicated on CBC? Y/N YES- FLAGS NOTED
[2019-02-23 06:06] LABS: Anion Gap 4 (5-15); BUN 6 mg/dL (7-18); BUN/Creat Ratio 11.5 RATIO (10-20); Chloride 105 mmol/L (98-107); Creatinine, Serum 0.52 mg/dL (0.55-1.02); EST Glomerular Filtration Rate 144 mL/min (>60); Est Glom Filt Rate - Afr Amer 175 mL/min (>60); Estimated Creatinine Clearance 144.05 ml/min; Glucose 93 mg/dL (74-106); Potassium 3.8 mmol/L (3.5-5.1); Sodium Level 136 mmol/L (136-145)
[2019-02-23 06:24] LABS: Differential Comment SCANNED
[2019-02-23 06:36] VITALS: BP 136/60; PULSE 92; RESP 16; TEMP 37; O2SAT 95
[2019-02-23] MEDS: HYDROmorphone 2 MG TABLET PO (08:50)
[2019-02-23] MEDS: Docusate Sodium 100 MG Capsule PO (08:51)
[2019-02-23] MEDS: Lisinopril 40 MG Tablet PO (08:51)
[2019-02-23] MEDS: Lactated Ringers 1,000 ML 60 ML IV (08:51)
[2019-02-23 09:16] VITALS: BP 131/69; PULSE 97; RESP 18; TEMP 36.7; O2SAT 96
[2019-02-23] MEDS: Ceftriaxone 1 GM/50 ML BAG IV (09:42)
--- NOTE | 2019-02-23 11:30 | PN.SURG_ITS ---
Subjective: Postop #2 Patient complains of incisional pain. Tolerating po analgesia. Ambulating without difficulty. - Physical Exam Vitals/I&O's: Vital Signs Temp Pulse Resp BP Pulse Ox 98.1 F 97 18 131/69 H 96 02/23/19 09:16 02/23/19 09:16 02/23/19 09:16 02/23/19 09:16 02/23/19 09:16 Oxygen Delivery Method Room Air Weight: 230 lb 9.656 oz Body Mass Index (BMI) 37.2 Intake and Output for Last 24 Hours 02/21/19 02/22/19 02/23/19 23:59 23:59 23:59 Intake Total 1683.33 / 1683.33 3915 / 3915 1680 / 1680 Output Total 1090 / 1090 2430 / 2430 730 / 730 Balance 593.33 / 593.33 1485 / 1485 950 / 950 Drainage 380 ml yesterday, 230 ml today. General: Alert, Oriented x3 HEENT: PERRLA, EOMI Oral: Moist Mucosa Neck: Supple Abdomen: Soft, Non-Distended Skin: Incision - abdominal incision is dry and intact. Adomen is soft. No clinical evidence of hematoma. No vascular compromise noted on the skin. Neurological: Cranial nerves II-XII grossly intact Psych/Mental Status: Normal Affect, Appropriate Microbiology Past 72 Hours 02/21/19 15:29 Tissue - Other Gram Stain - Final 02/21/19 15:29 Tissue - Other Wound Culture - Preliminary No growth-Final to follow 02/21/19 15:29 Tissue - Other Anaerobic Culture - Preliminary No growth in 48 hours. Laboratory Results 02/22/19 16:35: Blood Type A NEGATIVE, Antibody Screen NEGATIVE, Crossmatch See Detail 02/23/19 05:24: WBC 7.4, RBC 4.04 L, Hgb 8.4 L, Hct 28.3 L, MCV 70.0 L D, MCH 20.8 L, MCHC 29.7 L, RDW Std Deviation 53.5 H, RDW Coeff of Andrez 21.9 H, Plt Count 268, MPV 10.6, Differential Comment SCANNED 02/23/19 05:24: Sodium 136, Potassium 3.8, Chloride 105, Carbon Dioxide 27.0, Anion Gap 4 L, BUN 6 L, Creatinine 0.52 L, Estim Creat Clear Calc 144.05, Est GFR (MDRD) Af Amer 175, Est GFR (MDRD) Non-Af 144, BUN/Creatinine Ratio 11.5, Glucose 93, Calcium 8.0 L Current Medications Amitriptyline HCl (Elavil) 50 mg PO QHS PRN PRN Reason: SLEEP Cyanocobalamin (Vitamin B12) 500 mcg IM X1 ONE Stop: 02/23/19 11:08 Cyanocobalamin (Vitamin B12) 1,000 mcg IM X1 ONE Stop: 02/23/19 11:18 Diazepam (Valium) 5 mg PO 4X/DAY PRN PRN PRN Reason: SPASMS Last Admin: 02/22/19 19:54 Dose: 5 mg Documented by: Docusate Sodium (Colace) 100 mg PO BID [facility] Last Admin: 02/23/19 08:51 Dose: 100 mg Documented by: Enoxaparin Sodium (Lovenox) 40 mg SC DAILY@0600 [facility] Last Admin: 02/23/19 05:37 Dose: 40 mg Documented by: Ergocalciferol (Vitamin D) 50,000 unit PO TuTh@0800 [facility] Last Admin: 02/23/19 08:51 Dose: 50,000 unit Documented by: Hydromorphone HCl (Dilaudid Inj) 1 mg IV Q4H PRN PRN PRN Reason: Pain Score 6-10/10 Last Admin: 02/23/19 06:51 Dose: 1 mg Documented by: Hydromorphone HCl (Dilaudid Tablet) 2 - 4 mg PO Q4H PRN PRN PRN Reason: Pain Score 1-10/10 Last Admin: 02/23/19 08:50 Dose: 4 mg Documented by: Ceftriaxone Sodium (Rocephin) 1 gm in 50 mls @ 100 mls/hr IV Q24 [facility] Last Infusion: 02/23/19 11:15 Dose: Infused Documented by: Lactated Ringer's () 1,000 mls @ 60 mls/hr IV .[id number] [facility] Last Admin: 02/23/19 08:51 Dose: 60 mls/hr Documented by: Sodium Chloride () 250 mls @ 15 mls/hr IV .[id number] PRN PRN Reason: Saline Flush Last Admin: 02/23/19 09:42 Dose: 15 mls/hr Documented by: Lisinopril (Zestril) 40 mg PO BID [facility] Last Admin: 02/23/19 08:51 Dose: 40 mg Documented by: Nutritional Formula (Collins - [place] Flavor) [facility] Last Admin: 02/23/19 08:51 Dose: Not Given Documented by: Ondansetron HCl (Zofran) 4 mg IV Q6H PRN PRN PRN Reason: NAUSEA Last Admin: 02/21/19 18:10 Dose: 4 mg Documented by: Promethazine HCl (Phenergan Tablet) 25 mg PO Q4H PRN PRN PRN Reason: NAUSEA/VOMITING Sodium Chloride () 10 - 40 ml IV UD PRN PRN Reason: SALINE FLUSH Last Admin: 02/23/19 05:35 Dose: 10 ml Documented by: Tamsulosin HCl (Flomax) 0.4 mg PO DAILY PRN PRN Reason: kidney stones Medical Necessity - Tobacco Use Smoking Status: Never smoker Assessment/Plan All Active Problems (Last Reviewed 06/23/18 @ 11:52 by Saeid Wilsno MD) Open wound of vulva with complication (Acute) Infection following a procedure, initial encounter (Acute) Hematoma, vulva (Acute) Postoperative hematoma of subcutaneous tissue following dermatologic procedure (Acute) Open wound anterior abdominal wall (Acute) ERIKA (acute kidney injury) (Acute) Cellulitis of abdominal wall (Acute) Cellulitis of pubic region (Acute) Uncontrolled hypertension (Acute) 1. Painful infected skin graft scar contour deformity vulva involving the mons pubis area. 2. 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 3. 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 4. s/p surgical preparation vulva involving mons pubis with excisional debridement painful infected skin graft scar contour deformity and reconstruction with abdominal wall advancement skin flap (215 cm2) and complex secondary wound closure. 5. Anemia of chronic disease, acute on chronic, stable after PRBC. Patient complains of incisional pain. Tolerating po analgesia. She is ambulating without difficulty. Prealbumin was 23.1. Encourage nutritional supplementation with protein to help the healing process. Operative culture is negative thus far. She is currently on Ceftriaxone. Will discharge home on Levaquin until the drains are removed. Hgb has improved to 8.4 from 7.0 after PRBC. Her baseline preoperatively was 8.8. She has anemia of chronic disease, acute on chronic. There was operative blood loss of 150 ml. There is additional IV dilution with I's/O's positive of approximately 3000 ml. Her PCP has evaluated her anemia. He has her on Vitamin B12 injections. She states she is overdue for one. So she will receive an injection before discharge and let her PCP know. Discharge home today. Followup office Wednesday02/27/19. Continue abdominal binder. Continue lifting restriction and continue head elevation. She will empty and record her drainage daily. Wrote script for Levaquin until the drains are removed. Wrote scripts for Dilaudid for pain, 4 mg (40 tabs) and for Valium for spasm (30 tabs). Wrote scripts for Zofran for nausea (30 tabs) and a refill and for Colace for spasm (60 tabs).
--- NOTE | 2019-02-23 11:39 | DCINST_ITS ---
You will use the following diet at home:: No restrictions, Other - encourage nutritional supplementation with protein to help the healing process. Discharge Activity: May not drive while taking narcotic pain medications., May Not Shower - until the drains are removed., - - keep head elevated. no heavy lifting. wear abdominal binder. May shower in (days): 14 - after the drains are removed. May resume sexual activity in: 10-14 days Weight Bearing Status: Weight bearing as tolerated Lifting Restrictions: 20 lbs. Keep extremity elevated above heart level: - - elevate head. Call your doctor if your incision/area has: Continuous Slow Oozing, Sudden Increased Bleeding, Increased Pain/ Swelling, Increased Redness, Foul Smelling Discharge, Swelling at the incision site Call your doctor if you observe: Fever of 101 or Higher, Coldness, Increased Pain, Shortness of breath, Chest pain, Calf discomfort, Uncontrolled pain Suture Line Care: - - dry dressings daily followed by abdominal binder. Change Dressing in (Days):: 1 - dry dressings daily followed by abdominal binder. Cleanse incision/area with: - - may get incisions wet in the shower after the drains are removed. Drain: Suction - fidelia drain x2 to bulb suction. empty and record output daily. Allergies/Adverse Reactions: Allergies methocarbamol Allergy (Verified 02/21/19 09:44) Chest tightness gabapentin Adverse Reaction (Verified 02/21/19 09:44) MADE ME WALK SIDEWAYS ketorolac tromethamine [From Toradol] Adverse Reaction (Verified 02/21/19 09:44) Upset Stomach NSAIDS (Non-Steroidal Anti-Inflamma Adverse Reaction (Verified 02/21/19 09:44) gastric bipass not supposed to take tramadol Adverse Reaction (Verified 02/21/19 09:44) Upset Stomach Medications to take at Discharge Amitriptyline HCl [Elavil] 50 mg PO QHS PRN 04/30/17 Ergocalciferol [Vitamin D] 50,000 unit PO [facility] 04/30/17 Etonogestrel [Nexplanon] 68 mg SQ UD 04/30/17 Tamsulosin HCl [Flomax] 0.4 mg PO DAILY PRN 04/30/17 Lisinopril [Zestril] 40 mg PO BID 05/30/17 Cyanocobalamin [Vitamin B12] 1,000 mcg IM Q30D 04/17/18 Hydrocodone/Acetaminophen [[place] 10-325 Tablet] 1 ea PO 4X/DAY PRN PRN 7 Days #30 tab 10/19/17 Diazepam [Valium] 5 mg PO 4X/DAY PRN PRN #30 tab 02/23/19 Docusate Sodium [Colace] 100 mg PO BID #60 cap 02/23/19 Hydromorphone HCl [Dilaudid] 4 mg PO .[id number] PRN PRN 7 Days #40 tab 02/23/19 Ondansetron [Zofran Odt] 4 mg PO 4X/DAY PRN PRN #30 tab 02/23/19 levoFLOXacin tablet [Levaquin tablet] 500 mg PO DAILY #15 tab 02/23/19 The following prescriptions were given: Docusate Sodium [Colace] 100 mg PO BID #60 cap Transmission Status: Pending to [address] Hydromorphone HCl [Dilaudid] 4 mg PO .[id number] PRN PRN 7 Days #40 tab PRN Reason: Pain Score 4-5/10 Transmission Status: Received by [address] levoFLOXacin tablet [Levaquin tablet] 500 mg PO DAILY #15 tab Transmission Status: Pending to [address] Diazepam [Valium] 5 mg PO 4X/DAY PRN PRN #30 tab PRN Reason: Spasms Transmission Status: Received by [address] Ondansetron [Zofran Odt] 4 mg PO 4X/DAY PRN PRN #30 tab PRN Reason: Nausea Transmission Status: Pending to [address] Primary Care Physician: Bethel Jauregui III, MD [Primary Care Provider] - Test Results: Test results from this visit will be discussed in further detail at your follow- up appointment, if applicable. Please Follow Up With: Gigi Mendieta MD When: Wednesday02/27/19. call [phone] for appt. Proposed Discharge Date: 02/23/19
[2019-02-23] MEDS: Cyanocobalamin (B12) 1,000 MCG/ML Vial 1000 MCG IM (12:22)
[2019-02-23 12:26] VITALS: BP 142/74; PULSE 77; RESP 18; TEMP 36.7; O2SAT 98
== END 2019-02-23 12:30 | disposition home or self-care (01) ==
LOC: SDC 16:42
PROVIDERS: Anesthesiology; Admitting Provider Surgery; Family Provider Family Medicine; PCP Family Medicine; Referring Provider Surgery; Visit Provider Surgery
PROC: (CPT 13160; principal; 2019-02-21 10:45)
DX: T86.828 Other complications of skin graft (allograft) (autograft) (principal); Y83.2 Surgical operation with anastomosis, bypass or graft as the cause of abnormal reaction of the patient, or of later complication, without mention of misadventure at the time of the procedure; Z68.37 Body mass index [BMI] 37.0-37.9, adult; I89.0 Lymphedema, not elsewhere classified; Z98.84 Bariatric surgery status; I10 Essential (primary) hypertension; Z79.899 Other long term (current) drug therapy; R63.4 Abnormal weight loss; D63.8 Anemia in other chronic diseases classified elsewhere; G47.30 Sleep apnea, unspecified
CPT/HCPCS: 00300; 13160; 14301; 14302 ×6; 15004; 36415; 36430; 80048; 81025; 84134; 84443; 85027; 85610; 85730; 86850; 86900; 86901; 86920; 86922; 87070; 87075; 87102; 87205; 87206; 88304; 88305; 96365; 96366; 96372; 96375; 96376; 97802; 99218; 99251; J7040; J7050; J7120; P9016; A4216; G0378; G0379; G0463; J2405; J3420

== ENCOUNTER 2019-02-26 12:35 | Emergency (ER) | payer MEDICAID, SELFPAY ==
[2019-02-21 17:19] VITALS: BMI 37.2
[2019-02-26 12:36] VITALS: BP 182/104; PULSE 101; RESP 20; TEMP 36.6; O2SAT 100; BMI 37.1
--- NOTE | 2019-02-26 13:02 | CT_ITS ---
STUDY: CT ABDOMEN AND PELVIS WITH CONTRAST REASON FOR EXAM: Female, 34 years old. Infected skin graft. Increased burning at wound. RADIATION DOSAGE (If Supplied By Facility): CTDIvol = ( 15.4 ) mGy, DLP = ( 1366.73 ) mGycm TECHNIQUE: Transaxial images were obtained from the dome of the diaphragm to the symphysis pubis without oral contrast. 100CC ISOVUE 370 was administered. Sagittal and coronal images were reconstructed. Individualized dose optimization techniques were used for this CT. COMPARISON: January 05, 2019 FINDINGS: The visualized lung bases are unremarkable. The visualized portions of the heart are within normal limits. Normal liver. There are surgical clips in the gallbladder fossa consistent with a prior cholecystectomy. Normal spleen. Normal pancreas. Normal bilateral adrenal glands. Normal right kidney. There is a 0.3 cm stone of the left kidney. Postoperative changes of the stomach. Normal small intestine. Normal colon. There is non-visualization of the appendix. Normal abdominal aorta. Normal inferior vena cava. Normal retroperitoneum. Normal urinary bladder. Normal visualized uterus. There is 5.2 cm right adnexal cyst. There is 1.8 cm left adnexal cyst. There is no free fluid in the abdomen or pelvis. There is postoperative change of the lower abdominal wall. There are surgical drains in place. There is subcutaneous edema and skin thickening. No fluid collection. Normal osseous structures. CT/Abdomen/Pelvis W IV Cont ONLY IMPRESSION: Postoperative changes. Surgical drains are present. There is soft tissue swelling and subcutaneous edema. No fluid collection or abscess seen. Left renal stone. No hydronephrosis. Adnexal cysts. Electronically Signed: Soto Dickerson MD at 15:07 EST , Service support ,
--- NOTE | 2019-02-26 13:05 | ED.VISSUMM ---
- ER Visit Summary Date of Service: 02/26/19 Chief Complaint: Abdominal pain postop History of Present Illness: The patient is a 34 F status post a revision surgery from a prior tummy tuck and prior gastric bypass. Patient states that she had a gastric bypass surgery that went poorly at the [facility] 3 years ago. This past Wednesday at [facility] she had a revision done. She has chronic anemia and needed a blood transfusion x2. She said she has had diffuse abdominal pain primarily lower since the surgery. She is been treated with Dilaudid and Valium at home. She also states she has hematuria with mild fever and chills. No nausea, vomiting, diarrhea or constipation. Normal bowel movements. Physical Examination: Vital signs are stable afebrile. Pulse ox 100 % on room air no signs of hypoxia. No distress. H EENT exam unremarkable. Neck nontender no lymphadenopathy. Moist extremities. Lungs clear to auscultation bilaterally. Heart regular rhythm rate about 90 no murmur. Abdomen is soft. Obese. She has healing lower abdominal surgical scars with bruising. She is primarily tender over the suprapubic region. There is no signs of obstruction. She has bowel sounds. There is no signs of acute infection. She has drains in both lower quadrants. They are draining serosanguineous fluid. She is moving all 4 extremities. Neurovascular intact. Calves are nontender without edema or cords. Back nontender. Neurologically she is awake and alert. Test Results: CBC White count of 5. Hemoglobin 9 which is better than her chronic anemia. No bands. Chemistries normal normal creatinine and gap. Liver enzymes slightly elevated alk phos of 180 and ALT of 123 lipase normal. UA has some blood but otherwise no signs of infection. test negative. CT abdomen pelvis with IV contrast only shows postoperative changes. Some edema fluid but no abscess. And no other acute abnormality. Read by the radiologist and reviewed by me. Emergency Department Course and Treatment: Patient treated with IV Dilaudid and Zofran. Screening labs and a CAT scan being obtained. Clinically this appears to be postop pain with postop bruising and swelling. There is no obvious signs of infection. No peritoneal signs. Treatment Plan: Repeat exams patient is doing well. She is asked several times for additional doses of Dilaudid. She did receive a dose here. I do not think she needs further pain medications in the emergency department. And she has pain meds at home. We discussed her test results. Disposition: Discharge Impression: Postop abdominal pain after her tummy tuck revision surgery This note was generated with [employer] dictation software. It may contain incorrect words, spelling, and punctuation that were not noted in review of the chart prior to signing ED Disposition - Plan for ED Patient: Referrals: Bethel Jauregui III, MD [Primary Care Provider] -
[2019-02-26] MEDS: 0.9% Normal Saline 1,000 ML 1000 ML IV (13:38)
[2019-02-26] MEDS: HYDROmorphone 1 MG/ML Syringe IV (13:39)
[2019-02-26] MEDS: Ondansetron 4 MG/2 ML Vial IV (13:39)
[2019-02-26 13:49] LABS: Absolute Lymphocyte Count 1.08 X10^3/uL (0.83-4.51); Absolute Neutrophil Count 3.1 X10^3/uL (2.0-7.7); Basophil# 0.04 X10^3/uL; Basophil% 0.8 % (0-1); Eosinophil# 0.22 X10^3/uL; Eosinophils% 4.3 % (0-5); Hematocrit 29.9 % (37-47); Lymphocyte # 1.08 X10^3/ul (4.0); Mean Corp Hgb Conc 30.1 g/dL (32-36); Mean Corpuscular Hgb 21.3 pg (27.0-32.0); Mean Corpuscular Volume 70.7 fL (81-99); Mean Platelet Vol. 10.8 fl (6.2-12.0); Monocyte# 0.67 X10^3/uL; NRBC Flagged by Analyzer 0 % (0-5); Neutrophil # 3.11 X10^3/uL (2.7-7.7); Neutrophil % 60.3 % (47-70); POSITIVE MORPHOLOGY YES; Platelet Count 410 K/mm3 (150-450); RBC Distribution Width CV 23.9 % (11.6-14.6); RBC Distribution Width SD 58.4 fl (35.1-43.9); Red Blood Count 4.23 M/mm3 (4.2-5.4); White Blood Count 5.2 K/mm3 (4.4-11.0)
[2019-02-26 13:54] LABS: Differential Indicated SCAN CRITERIA MET
[2019-02-26 13:55] LABS: Internal QC Validated? YES +Cl - CLEAR BKGD; Pregnancy, Serum, hCG Quali. NEGATIVE Negative
[2019-02-26 14:02] LABS: AST(SGOT) 13 U/L (15-37); Alanine Aminotransfer ALT/SGPT 123 U/L (13-56); Albumin, Serum 2.9 g/dL (3.2-5.0); Alkaline Phosphatase 180 U/L (45-117); Anion Gap 5 (5-15); BUN 8 mg/dL (7-18); Bilirubin, Direct 0.09 mg/dL (0.00-0.30); Calcium,Total 8.9 mg/dL (8.5-10.1); Chloride 107 mmol/L (98-107); Creatinine, Serum 0.57 mg/dL (0.55-1.02); EST Glomerular Filtration Rate 129 mL/min (>60); Est Glom Filt Rate - Afr Amer 156 mL/min (>60); Estimated Creatinine Clearance 131.42 ml/min; Globulin 4.2 g/dL (2.2-4.2); Glucose 81 mg/dL (74-106); Lipase 70 U/L (73-393); Potassium 3.7 mmol/L (3.5-5.1); Protein, Total 7.1 g/dL (6.4-8.2); Sodium Level 141 mmol/L (136-145)
[2019-02-26 14:21] LABS: Anisocytosis 2+; Platelet Estimate ADEQUATE (ADEQ)
[2019-02-26 14:22] LABS: Hypochromasia 2+; Microcytosis 1+; Polychromasia RARE
[2019-02-26 14:37] LABS: Bacteria 0 SEEN /hpf (None Seen)
[2019-02-26 14:38] LABS: Color, Urine Yellow (Yellow); Glucose, Dipstick Normal (Normal); Ketone-Dipstick 5 mg/dl (Negative); Leukocyte Esterase-Dipstick 25 /ul (Negative); Nitrite-Dipstick Negative (Negative); Occult Blood-Urine 250 /ul (Negative); Protein-Dipstick 30 mg/dl (Negative); Urine Bilirubin Dipstick Negative (Negative); Urine Clarity Cloudy (Clear); Urine Urobilinogen Normal (Normal)
[2019-02-26 14:45] LABS: Mucous, Urine RARE /hpf (<or=2+); Red Blood Cells-Urine 25-50 SEEN /hpf (0-5); Squamous Epithelial Cells - UA 0-5 SEEN /hpf (5-10); White Blood Cells 0-5 SEEN /hpf (0-5)
--- NOTE | 2019-02-26 15:14 | ED.DEP ---
ED Disposition - Plan for ED Patient: Disposition: Home or Assisted Living Referrals: Bethel Jauregui III, MD [Primary Care Provider] - As Needed Gigi Mendieta MD [STAFF PHYSICIAN] - As soon as possible Additional Instructions: Use your home pain meds. Cool compresses to your abdominal wall. The pain appears to be from postop inflammation of the tissues and bruising. This should progressively get better. Call or follow-up with Dr. Mendieta
[2019-02-26 15:30] VITALS: BP 144/98; PULSE 86; RESP 18; TEMP 36.9; O2SAT 98
== END 2019-02-26 15:31 | disposition home or self-care (01) ==
PROVIDERS: Emergency Provider Emergency Medicine; Family Provider Family Medicine; PCP Family Medicine
DX: G89.18 Other acute postprocedural pain (principal); R10.9 Unspecified abdominal pain; Z98.84 Bariatric surgery status; D64.9 Anemia, unspecified; Z87.442 Personal history of urinary calculi
CPT/HCPCS: 74177; 80048; 80076; 81001; 83690; 84703; 85025; 96361; 96374; 96375; 99285; J7030; Q9967; A4216; J2405

== ENCOUNTER 2019-03-03 09:14 | Emergency (ER) | payer MEDICAID, SELFPAY ==
[2019-02-27 15:27] VITALS: BMI 37.1
[2019-03-03 09:15] VITALS: BP 167/92; PULSE 105; RESP 18; TEMP 36.8; O2SAT 100; BMI 35.5
--- NOTE | 2019-03-03 09:37 | CT_ITS ---
STUDY: CT ABDOMEN AND PELVIS WITH CONTRAST REASON FOR EXAM: Female, 34 years old. Lower abdominal pain. Decreased urine output. RADIATION DOSAGE (If Supplied By Facility): CTDIvol = ( 18.66 ) mGy, DLP = ( 1371.32 ) mGycm TECHNIQUE: Transaxial images were obtained from the dome of the diaphragm to the symphysis pubis without oral contrast. 100 ML ISOVUE 370 was administered. Sagittal and coronal images were reconstructed. Individualized dose optimization techniques were used for this CT. COMPARISON: Comparison is made with prior study dated February 26, 2019. FINDINGS: The visualized lung bases are unremarkable. The visualized portions of the heart are within normal limits. Normal liver. There are surgical clips in the gallbladder fossa consistent with a prior cholecystectomy. Normal spleen. Normal pancreas. Normal bilateral adrenal glands. Normal right kidney. A punctate calcification is seen in the upper pole calyx of the left kidney. Surgical sutures are seen in the gastric region suggestive of a subtotal gastrectomy. Normal small intestine. Normal colon. The appendix is visualized and appears normal. Normal abdominal aorta. Normal inferior vena cava. Normal retroperitoneum. Normal urinary bladder. There is a 5.6 x 5 cm cyst in the right ovary. There is a 2.4 cm x 3.9 cm lobulated cystic structure in the adnexa. There has been essentially no change. A surgical drainage catheter is seen deep in the subcutaneous tissue overlying the anterior lower abdominal wall. Normal osseous structures. CT/Abdomen/Pelvis W IV Cont ONLY IMPRESSION: Stable examination. Electronically Signed: Demetrius Brandon, at 11:28 EST , Service support ,
[2019-03-03] MEDS: Ondansetron 4 MG/2 ML Vial IV (10:02)
[2019-03-03] MEDS: 0.9% Normal Saline 1,000 ML 1000 ML IV (10:02)
[2019-03-03] MEDS: HYDROmorphone 1 MG/ML Syringe IV ×2 (10:03→11:22)
[2019-03-03 10:15] LABS: Absolute Lymphocyte Count 0.98 X10^3/uL (0.83-4.51); Basophil# 0.06 X10^3/uL; Basophil% 0.6 % (0-1); Hematocrit 32.2 % (37-47); Hemoglobin 9.5 g/dL (12.0-15.0); Lymphocyte # 0.98 X10^3/ul (4.0); Lymphocyte % 9.9 % (19-41); Mean Corp Hgb Conc 29.5 g/dL (32-36); Mean Corpuscular Hgb 20.7 pg (27.0-32.0); Mean Corpuscular Volume 70.2 fL (81-99); Mean Platelet Vol. 10.7 fl (6.2-12.0); Monocyte# 0.71 X10^3/uL; Monocyte% 7.2 % (0-10); NRBC Flagged by Analyzer 0 % (0-5); Neutrophil # 7.96 X10^3/uL (2.7-7.7); Neutrophil % 80.9 % (47-70); POSITIVE MORPHOLOGY YES; Platelet Count 560 K/mm3 (150-450); RBC Distribution Width CV 23.9 % (11.6-14.6); RBC Distribution Width SD 57.2 fl (35.1-43.9); Red Blood Count 4.59 M/mm3 (4.2-5.4); White Blood Count 9.9 K/mm3 (4.4-11.0)
[2019-03-03 10:16] LABS: Differential Indicated SCAN CRITERIA MET
[2019-03-03 10:34] LABS: Internal QC Validated? YES +Cl - CLEAR BKGD; Pregnancy, Serum, hCG Quali. NEGATIVE Negative
[2019-03-03 10:43] LABS: Lactic Acid 1.5 mmol/L (0.4-1.9)
[2019-03-03 10:45] LABS: ALB/GLOB Ratio 0.7 RATIO (0.9-2.4); AST(SGOT) 31 U/L (15-37); Alanine Aminotransfer ALT/SGPT 54 U/L (13-56); Albumin, Serum 3.1 g/dL (3.2-5.0); Alkaline Phosphatase 150 U/L (45-117); Anion Gap 8 (5-15); BUN 8 mg/dL (7-18); BUN/Creat Ratio 12.6 RATIO (10-20); Calcium,Total 9.1 mg/dL (8.5-10.1); Chloride 103 mmol/L (98-107); Creatinine, Serum 0.63 mg/dL (0.55-1.02); EST Glomerular Filtration Rate 115 mL/min (>60); Est Glom Filt Rate - Afr Amer 139 mL/min (>60); Globulin 4.7 g/dL (2.2-4.2); Glucose 95 mg/dL (74-106); Lipase 50 U/L (73-393); Potassium 4.7 mmol/L (3.5-5.1); Protein, Total 7.8 g/dL (6.4-8.2); Sodium Level 137 mmol/L (136-145)
[2019-03-03 11:16] LABS: Anisocytosis 1+; Hypochromasia 2+; Platelet Estimate SLT INC (ADEQ); Stomatocyte 1+; Target Cells 1+
[2019-03-03 11:19] VITALS: RESP 18
[2019-03-03 11:21] LABS: Mucous, Urine 0 SEEN /hpf (<or=2+)
[2019-03-03 11:24] LABS: Color, Urine Yellow (Yellow); Glucose, Dipstick Normal (Normal); Leukocyte Esterase-Dipstick 500 /ul (Negative); Nitrite-Dipstick Negative (Negative); Occult Blood-Urine 250 /ul (Negative); Protein-Dipstick 100 mg/dl (Negative); Urine Bilirubin Dipstick Negative (Negative); Urine Clarity Sl. Cloudy (Clear); Urine Urobilinogen Normal (Normal)
[2019-03-03 11:26] VITALS: BP 164/89; PULSE 101; RESP 18; TEMP 37; O2SAT 95
[2019-03-03 11:28] LABS: Ketone-Dipstick 150 mg/dl (Negative)
[2019-03-03 11:30] LABS: Bacteria 1+ /hpf (None Seen); Red Blood Cells-Urine 25-50 SEEN /hpf (0-5); Squamous Epithelial Cells - UA 5-10 SEEN /hpf (5-10); White Blood Cells 25-50 SEEN /hpf (0-5)
--- NOTE | 2019-03-03 12:56 | NURSING ---
DR. PAGE PAGED AGAIN @[id number]. GAVE NOTE TO OR NURSE FOR HIM TO CALL BACK SOON POSSIBLE.
[2019-03-03 13:06] VITALS: BP 136/73; PULSE 94; RESP 15; O2SAT 99
[2019-03-03 13:07] VITALS: BP 136/76; PULSE 94; RESP 15; TEMP 36.9; O2SAT 99
--- NOTE | 2019-03-03 13:44 | ED.VISSUMM ---
- ER Visit Summary Date of Service: 03/03/19 Chief Complaint: Abdominal pain History of Present Illness: The patient is a 34 F who reports that on February 21 she had surgery by Dr. Mendieta. She was in the hospital until February 23. She was seen in the office on February 27. She is currently on Levaquin and the plan is to continue this until the drains are removed. She was taking Dilaudid and Whitefish for pain. She reports that she ran out of Dilaudid 2 days ago. Patient reports that she has had pain ever since the surgery, but that it worsened 2 days ago. It is an aching pain is 9 at 10 with movement 8 out of 10 after Whitefish. She reports that the bruising seems to have increased in the the graft as hard as a rock. States that she had a temperature to 101.5 degrees. She has had nausea and dry heaves. She had 3 episodes of diarrhea yesterday. No blood in her stools or black tarry stools. No dysuria or frequency. Physical Examination: Vitals: Stable. Afebrile. General: Well-nourished and well-developed. Head: Normocephalic atraumatic. Neck: Supple, no lymphadenopathy. No JVD. Nontender. Cardiovascular: Regular rate and rhythm. No murmurs. Respiratory: No respiratory distress. Clear to auscultation bilaterally. Abdominal: Soft, incisions in her groin have contusions surrounding them. However there is no erythema or warmth. Severely tender to palpation. She has drains in her inguinal regions bilaterally that is draining serosanguineous fluid. There is no purulent drainage. She has severe tenderness to palpation over this area. Nondistended, normal bowel sounds. No guarding, rebound, or peritoneal signs. Back: Nontender. Extremities: Nontender, no edema. Neurologic: Alert and oriented ?3. Cranial nerves II through XII are intact. Normal strength and sensation. Psych: Normal affect. Test Results: CBC shows an H&H 9.5 and 32.2, segmented for his 81, lead sets of 10. Her hemoglobin was 9.0 on February 26. Lactic acid is 1.5. Chem-7 is normal. LFTs show an albumin of 3.1, globulin 4.7, alk phos 150. Lipase is 50. UA shows 25-50 white blood cells and 25-50 red blood cells. However, is contaminated with 5-10 epithelial cells. test is negative. Clinical Impression(s) from Imaging Studies Abdomen/Pelvis CT 03/03/19 09:37 IMPRESSION: Stable examination. Electronically Signed: Demetrius Brandon, at 11:28 EST , Service support , Emergency Department Course and Treatment: Patient was treated Dilaudid and Zofran IV. She is resting more comfortably. Treatment Plan: Patient was discussed with Dr. Mendieta. This time there is no indication for admission to the hospital. He asked that she be given a prescription for 4 more Dilaudid pills and instructed to follow-up him in the office. Patient was uncomfortable with this plan and wanted to be admitted to the hospital. At this time I do not have indication for admission. She was discussed with case management who have seen her. She has refused home health. Return to the emergency department for any worsening symptoms. Disposition: To home in improved and stable condition. Impression: 1. 10 days status post skin flap to mons pubis. This note was generated with [employer] dictation software. It may contain incorrect words, spelling, and punctuation that were not noted in review of the chart prior to signing ED Disposition - Plan for ED Patient: Disposition: Home or Assisted Living Instructions: POST OP WOUND CHECK, Pain Prescriptions: Hydromorphone HCl [Dilaudid] 4 mg PO Q6H #4 tab Prescription Printed Referrals: Gigi Mendieta MD [STAFF PHYSICIAN] - Keep Tamanna appointment
--- NOTE | 2019-03-03 14:15 | CM.ED ---
SOCIAL WORK INFORMANT: DR. FUENTES REASON FOR REFERRAL: RESOURCES UPDATED BY DR. FUENTES, PATIENT REQUESTING ADMISSION FOR PAIN MANAGEMENT. PATIENT DOES NOT MEET CRITERIA FOR ADMISSION. DR. FUENTES INQUIRING IF PATIENT WOULD BENEFIT FROM HOME HEALTH OR OTHER SERVICES. MET WITH PATIENT IN ROOM. INTRODUCED ROLE AND REASON FOR REFERRAL. PATIENT STATES I'M NOT SURE WHY THEY SENT YOU IN. PATIENT REPORTS LIVES HOME WITH HER MOTHER WHO IS DISABLED AND HAS USE OF ONLY ONE ARM. PATIENT REPORTS HAS HAD HOME HEALTH IN THE PAST WHEN SHE HAD A WOUND VAC. PATIENT DENIES NEED FOR HOME HEALTH. PATIENT REPORTS HAS PAIN WHEN GETTING UP AND DOWN FROM COUCH AND WALKING TO THE BATHROOM. PATIENT HAS DRAINS TO ABDOMEN. PATIENT STATES ONCE UP DOES FEEL A BIT BETTER. PATIENT STATES I JUST THOUGHT I COULD BE ADMITTED FOR PAIN MANAGEMENT. DISCUSSED HAVING A SCRIPT FOR BEDSIDE COMMODE. PATIENT DENIES NEED. PATIENT REQUESTING TO SPEAK WITH DR. FUENTES AGAIN. DR. FUENTES UPDATED ON THIS WORKER'S CONVERSATION WITH PATIENT. DR. FUENTES TO FOLLOW UP WITH PATIENT. PLAN: ANTICIPATE HOME BEFORE. PATIENT DECLINES NEED FOR SERVICES. Marlene TSE, CLEANING AND MAINTENANCE WORKER, AUTOMOTIVE LIGHT MECH[employer]IC.
[2019-03-03 15:40] VITALS: BP 137/75; PULSE 98; RESP 16; O2SAT 97
== END 2019-03-03 15:45 | disposition home or self-care (01) ==
PROVIDERS: Emergency Provider Emergency Medicine; Family Provider Family Medicine; PCP Family Medicine
DX: Z98.890 Other specified postprocedural states (principal); I10 Essential (primary) hypertension; Z87.442 Personal history of urinary calculi; Z79.891 Long term (current) use of opiate analgesic; Z79.899 Other long term (current) drug therapy
CPT/HCPCS: 74177; 80053; 81001; 83605; 83690; 84703; 85025; 96361; 96374; 96375; 96376; 99285; J7030; Q9967; A4216; J2405

== ENCOUNTER → 2019-03-08 13:05 | Outpatient (CLI) | payer MEDICAID, SELFPAY ==
[2019-03-08 08:29] VITALS: BMI 35.5
== END ==
PROVIDERS: Family Provider Family Medicine; PCP Family Medicine; Referring Provider Nurse Practitioner Family; Visit Provider Nurse Practitioner Family
DX: S31.105A Unspecified open wound of abdominal wall, periumbilic region without penetration into peritoneal cavity, initial encounter (principal)
CPT/HCPCS: 87070; 87075; 87077; 87186; 87205

== ENCOUNTER 2019-03-13 10:43 | Inpatient (IN) | payer MEDICAID, SELFPAY ==
[2019-03-13] VITALS (9 sets, daily range): BP systolic 143–165; BP diastolic 68–94; PULSE 76–95; RESP 16–18; TEMP 36.7–38.1; O2SAT 95–99; BMI 35.5; BMI 36.4
--- NOTE | 2019-03-13 | DEB_PTH ---
PATIENT: ISIDORO PENG LOC: PCU U#:[id number] AGE/SX: 34/F ROOM: [facility] RE03/15/[address]: Dr. Gigi Mendieta MD : [id number] BED: 1 DIS: 03/16/2019 SPEC #: [id number] RECD: 03/13/19 15:38 STATUS: RAFAELA REGeovanna #: [id number] ANGELA: 03/13/19 00:[address]: Gigi Mendieta DEPT: SURGICAL PATHOLOGY RECD BY: Jaden Gregg ENTERED: 03/14/19 08:40 SP TYPE: MAKAYLA TISS OTHR DR: Dr. Bethel Jauregui III, MD Tissues: Soft tissues, NOS Procedures: Surgery Specimen Level IV HEADER OPERATION: Incision and debridement of abdominal and pubic area wound PRE-OP DIAGNOSIS: Painful infected skin graft scar contour deformity vulva involving the mons pubis area TISSUE SUBMITTED: Abdominal and pubic area soft tissue MICROSCOPIC DIAGNOSIS Soft tissue of pubic region, excision: Acute and chronic inflammation and fibrosis. AM:lucinda 03/16/19 MICROSCOPIC DESCRIPTION Slides are reviewed. GROSS DESCRIPTION Received in fixative is one container labeled with the patient's name and designated abdominal and pubic area soft tissue. The specimen consists of an irregular piece of skin with underlying tissue measuring 12 x 10 cm and up to 5.5 cm in thickness. The skin surface shows extensive area of ulceration. Claim Administrator sections are submitted in four cassettes. / MORENA:lucinda 03/14/19 TC:2 CPT: 31130
[2019-03-13] MEDS: 0.9% Saline Lock 10 ML Syringe IV ×5 (10:08→23:02)
--- NOTE | 2019-03-13 10:42 | PCM.HP.BLA ---
History and Physical Date of Admission: 03/13/19 History and Physical Date of Admission: 02/21/19 HISTORY OF PRESENT ILLNESS 34-year-old woman presents with a painful infected skin graft scar contour deformity vulva and mons pubis area after developing an infected hematoma that resulted in surgery on 05/03/17 where she underwent surgical preparation lower anterior abdominal wall and pubic area with incision and drainage and excisional debridement infected seroma/hematoma (250 cm2). Her initial surgery was on 04/20/17 where she underwent excision 8 cm painful soft tissue mass pubic area with 20 cm complex closure. Operative culture showed Staphylococcus aureus and was treated with antibiotics. After discharge, she had another culture done on 05/30/17 which showed Staphylococcus aureus and Morganella morganii and was treated with antibiotics. Her initial infected wound was treated with the VAC and then changed to Silver dressings daily because of too much pain with the VAC. During the wound care, the patient developed persistent swelling in her mons pubis area resulting in a lymphedema-type picture. It was recommended to the patient to excise this lymphedema tissue in her genitalia involving the mons pubis with a partial vulvectomy to help debulk the area which should help with her persistent pain in the nonhealing ulcer mons pubis area. On 07/20/17 she underwent surgical preparation vulva involving mons pubis with excision painful infected ulcer and excision associated painful lymphedema with partial vulvectomy (120 cm2). She has persistent pain in the area of the ulceration in the mons pubis area and underwent surgical preparation vulva involving the mons pubis area with excisional debridement nonhealing ulcer with STSG reconstruction from the right lateral abdominal wall (15 cm2) and placement of ANGIE NPWT. Operative culture showed Staphylococcus aureus and she was treated with Levaquin. She presents today for further evaluation and treatment. PAST MEDICAL HISTORY Back problem (Acute) Bladder infection (Acute) Excessive weight loss (Acute) Gallstones (Acute) Intertrigo (Acute) Kidney stones (Acute) Soft tissue mass (Acute) Stomach ulcer (Acute) Vitamin deficiency (Acute) High blood pressure (Chronic) PAST SURGICAL HISTORY History of cholecystectomy (Acute) History of gastric bypass (Acute) History of incision and drainage (Acute) History of incision and drainage (Acute) History of nephrolithotomy with removal of calculi (Acute) History of thyroidectomy (Acute) Status post panniculectomy (Acute ~06/29/17) ALLERGIES methocarbamol Allergy (Verified 10/20/18 15:38) Chest tightness gabapentin Adverse Reaction (Verified 10/20/18 15:38) MADE ME WALK SIDEWAYS ketorolac tromethamine [From Toradol] Adverse Reaction (Verified 10/20/18 15:38) Upset Stomach NSAIDS (Non-Steroidal Anti-Inflamma Adverse Reaction (Verified 10/20/18 15:38) gastric bipass not supposed to take tramadol Adverse Reaction (Verified 10/20/18 15:38) Upset Stomach MEDICATIONS Amitriptyline HCl [Elavil] 50 mg PO QHS PRN 04/30/17 [History Confirmed 07/22/18] Ergocalciferol [Vitamin D] 50,000 unit PO QWEEK 04/30/17 [History Confirmed 07/22/18] Etonogestrel [Nexplanon] 68 mg SQ UD 04/30/17 [History Confirmed 07/22/18] Tamsulosin HCl [Flomax] 0.4 mg PO DAILY PRN 04/30/17 [History Confirmed 07/22/18] Lisinopril [Zestril] 40 mg PO BID 05/30/17 [History Confirmed 07/22/18] Ondansetron [Zofran Odt] 4 mg PO Q8H PRN PRN #20 tab 06/01/17 [Rx Confirmed 07/22/18] Cyanocobalamin [Vitamin B12] 1,000 mcg IM Q30D 07/06/17 [History Confirmed 07/22/18] Hydrocodone/Acetaminophen [[place] 10-325 Tablet] 1 ea PO 4X/DAY PRN PRN 7 Days #30 tab 10/19/17 [Rx Confirmed 07/22/18] Hydroxyzine HCl 25 mg PO QHS PRN 07/22/18 [History Confirmed 07/22/18] Levothyroxine [Synthroid] 25 mcg PO DAILY 07/22/18 [History Confirmed 07/22/18] Metoprolol Succinate 25 mg PO DAILY 07/22/18 [History Confirmed 07/22/18] Sumatriptan Succinate 50 mg PO Q2H PRN PRN 07/22/18 [History Confirmed 07/22/18] FAMILY HISTORY Mother - Anxiety, Bleeding disorder, Depression, Hypertension, High cholesterol, Cancer Father - Diabetes, Hypertension Grandfather - Colon cancer, Diabetes, Heart disease SOCIAL HISTORY Smoking Status: Never smoker second hand exposure: Yes alcohol intake: current substance use type: does not use REVIEW OF SYSTEMS General-denies fever. Has some fatigue. Has had major weight loss since her gastric bypass procedure done a year and a half ago. She lost 180 pounds. Ear nose and throat-denies nasal congestion. Denies sore throat. Eyes-denies glaucoma. Denies cataracts. Endocrine-denies excessive thirst or urination. Skin-has an abdominal wall skin crease intertrigo for which she uses powders for relief. She has lymphedema genitalia involving genitocrural areas up to the labia. Has painful infected skin graft scar contour deformity in the vulval and mons pubis area. Musculoskeletal-denies joint pain, joint stiffness, weakness of muscles and joints, neck pain, and arthritis. Neurologic-has headaches. Cardiovascular-denies chest pain. Has some fatigue. Denies shortness of breath with exertion. Psychiatric-denies anxiety. Denies depression. Respiratory-denies shortness of breath. Denies chronic cough. Gastrointestinal-denies nausea, vomiting, diarrhea, constipation. Denies abdominal bloating. Hematologic-denies abnormal bruising or bleeding. Genitourinary-denies hematuria and urinary frequency. PHYSICAL EXAMINATION General-well developed, well nourished, in no acute distress. HEENT-pupils equal round and reactive to light. Extraocular muscles intact. Throat is clear. Neck-supple and nontender. No cervical adenopathy. Lungs-clear to auscultation. Heart-regular rate and rhythm. Abdomen-soft and nondistended. There is abdominal wall scarring from previous abdominal panniculectomy. No abdominal masses noted. No ventral hernias noted. In the vulval and mons pubis area is a painful infected skin graft scar contour deformity. Tenderness to palpation. No evidence of infection. Extremities-full range of motion. No axillary adenopathy. No inguinal adenopathy. Radial pulses and dorsalis pedis pulses are palpable. Neuro-cranial nerves II through XII grossly intact. ASSESSMENT 1. Painful infected skin graft scar contour deformity vulva involving the mons pubis area. 2. 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 3. 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 PLAN Because of her persistent pain, I recommend surgical preparation vulval and mons pubis area with excisional debridement painful infected skin graft scar contour deformity. Will send tissue to Pathology for analysis to rule out carcinoma and to Microbiology for culture. A positive culture will necessitate antibiotic therapy. Reconstruction will necessitate with mobilizing abdominal wall skin flap with an advancement skin flap reconstruction. I want to avoid another skin graft in this area as it would be prone to develop similar symptomatology in the future. be with skin grafting. Donor site will be the abdominal wall. Surgery will be done under general anesthesia with a surgical observation overnight stay in the hospital. She will have drains in for several days and be maintained on antibiotics until the drains are removed. She will wear a abdominal wall binder for several weeks. She will be on a lifting restriction as well, (20 lbs). Patient was informed of the risks and complications of the procedure including alternatives to surgery. These were discussed with the patient personally. Patient voices understanding and wishes to proceed. Some of the risks and complications were included in a form from the [employer]. Later on after her symptomatology has resolved, we can address her lymphedema in her genitalia for staged excision as well. The patient was informed of the risks and complications of the procedure including alternatives to surgery. These were discussed with the patient personally. The patient voices understanding and wishes to proceed.
[2019-03-13] MEDS: HYDROmorphone 1 MG/ML Syringe IV ×4 (11:27→23:02)
[2019-03-13] MEDS: Lactated Ringers 1,000 ML 100 ML IV ×3 (11:35→23:01)
[2019-03-13 11:41] LABS: Erythrocyte Sedimentation Rate 110 mm/hr (0-20)
[2019-03-13 11:43] LABS: Hematocrit 28.7 % (37-47); Hemoglobin 8.6 g/dL (12.0-15.0); Mean Corpuscular Hgb 20.8 pg (27.0-32.0); Mean Corpuscular Volume 69.5 fL (81-99); POSITIVE COUNT YES; POSITIVE MORPHOLOGY YES; RBC Distribution Width CV 22.7 % (11.6-14.6); RBC Distribution Width SD 55.8 fl (35.1-43.9); Red Blood Count 4.13 M/mm3 (4.2-5.4); White Blood Count 7.1 K/mm3 (4.4-11.0)
[2019-03-13 11:45] LABS: Scan Indicated on CBC? Y/N YES- FLAGS NOTED
[2019-03-13 11:47] LABS: Platelet Count 843 K/mm3 (150-450)
[2019-03-13 11:54] LABS: ALB/GLOB Ratio 0.6 RATIO (0.9-2.4); AST(SGOT) 18 U/L (15-37); Alanine Aminotransfer ALT/SGPT 37 U/L (13-56); Albumin, Serum 2.4 g/dL (3.2-5.0); Alkaline Phosphatase 137 U/L (45-117); Anion Gap 4 (5-15); BUN 12 mg/dL (7-18); BUN/Creat Ratio 21.9 RATIO (10-20); Calcium,Total 8.6 mg/dL (8.5-10.1); Chloride 104 mmol/L (98-107); Creatinine, Serum 0.55 mg/dL (0.55-1.02); EST Glomerular Filtration Rate 135 mL/min (>60); Est Glom Filt Rate - Afr Amer 164 mL/min (>60); Globulin 4.1 g/dL (2.2-4.2); Glucose 92 mg/dL (74-106); Potassium 4.2 mmol/L (3.5-5.1); Prealbumin 11.1 mg/dL (20.0-40.0); Protein, Total 6.5 g/dL (6.4-8.2); Sodium Level 136 mmol/L (136-145)
--- NOTE | 2019-03-13 12:10 | NURSING ---
Report called to AC. Report given to Ana Cristina.
[2019-03-13] MEDS: Vancomycin IV 1,000 MG/200 ML BAG 200 MG IV (12:23)
--- NOTE | 2019-03-13 13:52 | OP.PCM_ITS ---
Report of Operation Date of Procedure: 03/13/19 Pre-Operative Diagnosis: 1. Necrotic infected seroma abdominal wall and vulva involving the mons pubis area. 2. 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 3. 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 4. 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 Post-Operative Diagnosis: Same. Surgery/Procedure Performed:: 1. Surgical preparation abdominal wall area with incision and drainage and excisional debridement necrotic infected seroma including umbilicus (182 cm2). 2. Surgical preparation vulva involving the mons pubis area with incision and drainage and excisional debridement necrotic infected seroma (52 cm). Description of Surgical Findings:: Patient had surgery on 02/21/19 where she underwent surgical preparation vulva involving mons pubis with excisional debridement painful infected skin graft scar contour deformity and reconstruction with abdominal wall advancement skin flap (215 cm2) and complex secondary wound closure. Postoperatively she developed some necrosis in the umbilical area with subsequent drainage. Also a portion of the distal skin flap in the pubic area developed some compromise with skin necrosis. After local debridement in the office, wound care was started with Dakin's solution dressing changes. Wound cultures were done and she was started on Levaquin. The wound cultures were positive for MRSE and Staphylococcus aureus. There was persistent drainage from the wounds and wound care has been difficult at home. Recommend operative intervention with surgical preparation abdominal wall and vulva involving mons pubis with incision and drainage and excisional debridement necrotic infected abdominal wall seroma. Postop op wound care will be with the VAC. Will treat perioperatively with Vancomycin. Patient was informed of the risks and complications of the procedure including alternatives to surgery. These were discussed with the patient personally. Patient voices understanding and wishes to proceed. Size of defect abdominal wall area - 13 x 14 x 5 cm. Size of defect mons pubis area - 13 x 4 x 5 cm. Combined defect - 13 x 18 x 5 cm. operating system programmer: None Type of Anesthesia:: General Specimen's removed: Necrotic infected seroma abdominal wall and vulva involving mons pubis to Pathology and Microbiology. Drains: None. Estimated Blood Loss (mL): 50 ml. Description of Procedure: Patient was taken to OR in supine position and was placed under general anesthesia. The abdominal wall and vulva involving mons pubis areas were prepped and draped in the usual fashion. SCD's were placed for DVT prophylaxis. Perioperative antibiotics were given intravenously. Using xylocaine with epinephrine, the infected wounds and necrotic areas were infiltrated. After waiting 5 minutes for the anesthetic to take effect, I proceeded with incision and drainage in the abdominal wall area around the umbilical wound and in the vulva involving mons pubis area. Some pus was seen Some slightly thickened serous fluid was seen and drained. A lot of fat necrosis was seen that was starting to liquefy. The infected necrotic tissue extended to the abdominal wall fascia. The fascia appeared slightly swollen yet viable. The infected necrotic tissue was excised and debrided including the remaining portion of the umbilicus. No umbilical hernia was noted. Some of the necrotic tissue was sent to Microbiology for culture and to Pathology for analysis to rule out carcinoma. The wound was irrigated with saline. Hemostasis was obtained with electrocautery. The size of the wound was 13 x 18 x 5 cm or 234 cm2. The abdominal wall component was 13 x 14 x 5 cm or 182 cm2. The vulval component involving mons pubis was 13 x 4 x 5 cm or 52 cm2. The remaining tissue was viable with no further evidence of infection. The wound was dressed with Mepitel nonadherent dressing followed by Kerlix gauze and Betadine followed by dry Kerlix gauze and ABD pads compression dressing. An abdominal wall binder was then applied. Patient tolerated the procedure well and was sent to PACU in satisfactory condition. Patient will be sent upstairs for continued postop care. The VAC will be applied tomorrow. She will continue Vancomycin perioperatively. A positive culture may necessitate antibiotic modification. After discharge will followup at the [facility]ound [facility]. Grafts/Implants Used: None. - Complications None. - Admit VTE Documentation VTE Present on Admission: No VTE Mechan Device Prophylaxis: SCD's VTE Pharm Prophylaxis ordered?: No Code Visit Surgery Charges CPT - 31532 ICD-10 - I96, L08.9, L76.34, T81.89xA, A49.8, T86.828, R63.4, I89.0 24167 I96, L08.9, L76.34, T81.89xA, A49.8, T86.828, R63.4, I89.0 30292 I96, L08.9, L76.34, T81.89xA, A49.8, T86.828, R63.4, I89.0 98910 L08.9, L76.34, T81.89xA, I96, A49.8, T86.828, R63.4, I89.0
--- NOTE | 2019-03-13 14:14 | CASEMGMT ---
Case Management Progress Note: This consumer loan underwriter to patient bedside to complete initial assessment, patient currently having procedure and not at bedside. RNCM will continue to follow for assessment and care coordination needs. Michel Perez RNCM
--- NOTE | 2019-03-13 14:31 | PCM.RX.CS ---
Consult Pharmacy has been consulted to manage selected antiobiotic: Vancomycin Type of Consult: New start Suspected Infection: Other Prior Doses of Antibiotics Received/Current Regimen: Medications Vancomycin HCl 1,750 mg/ (Sodium Chloride) 535 mls @ 250 mls/hr IV Q12H RAUL Labs: Sodium 136 mmol/L (136-145) 03/13/19 11:10 Potassium 4.2 mmol/L (3.5-5.1) 03/13/19 11:10 Chloride 104 mmol/L (98-107) 03/13/19 11:10 Carbon Dioxide 28.0 mmol/L (21.0-32.0) 03/13/19 11:10 Anion Gap 4 (5-15) L 03/13/19 11:10 BUN 12 mg/dL (7-18) 03/13/19 11:10 Creatinine 0.55 mg/dL (0.55-1.02) 03/13/19 11:10 Est GFR (MDRD) Af Amer 164 mL/min (>60) 03/13/19 11:10 Est GFR (MDRD) Non-Af 135 mL/min (>60) 03/13/19 11:10 BUN/Creatinine Ratio 21.9 RATIO (10-20) H 03/13/19 11:10 Glucose 92 mg/dL (74-106) 03/13/19 11:10 Weight used for dosin kg Estimated Creatinine Clearance: > 100 Goal Trough: 10-15 mcg/mL Pharmacy Plan for Drug Dosing: Initial dose 1000mg vancomycin IV, continue per policy 1750mg IV q12h with trough prior to 4th dose. Pharmacy Service will continue to monitor and adjust dosing as required. Follow-Up Labs: Trough Vancomycin - 03/14 @ 1930
[2019-03-13] MEDS: oxyCODONE 5 MG Tablet 10 MG PO ×2 (16:59→21:04)
[2019-03-13] MEDS: Lisinopril 40 MG Tablet PO (21:04)
--- NOTE | 2019-03-13 21:05 | NURSING ---
pt refusing scd's.
[2019-03-14] VITALS (12 sets, daily range): BP systolic 126–158; BP diastolic 50–87; PULSE 81–108; RESP 14–18; TEMP 36.9–37.2; O2SAT 95–99
[2019-03-14] MEDS: oxyCODONE 5 MG Tablet 10 MG PO ×4 (02:55→17:46)
[2019-03-14] MEDS: 0.9% Saline Lock 10 ML Syringe IV ×5 (05:48→15:45)
[2019-03-14] MEDS: HYDROmorphone 1 MG/ML Syringe IV ×5 (05:48→20:00)
[2019-03-14 05:55] LABS: Hematocrit 23.5 % (37-47); Hemoglobin 6.9 g/dL (12.0-15.0); Mean Corp Hgb Conc 29.4 g/dL (32-36); Mean Corpuscular Hgb 20.4 pg (27.0-32.0); Mean Corpuscular Volume 69.3 fL (81-99); Mean Platelet Vol. 10.2 fl (6.2-12.0); POSITIVE MORPHOLOGY YES; Platelet Count 701 K/mm3 (150-450); RBC Distribution Width CV 22.9 % (11.6-14.6); RBC Distribution Width SD 55.9 fl (35.1-43.9); Red Blood Count 3.39 M/mm3 (4.2-5.4); White Blood Count 6.1 K/mm3 (4.4-11.0)
[2019-03-14 05:59] LABS: Anion Gap 5 (5-15); BUN 8 mg/dL (7-18); BUN/Creat Ratio 19.2 RATIO (10-20); Calcium,Total 7.7 mg/dL (8.5-10.1); Chloride 106 mmol/L (98-107); Creatinine, Serum 0.42 mg/dL (0.55-1.02); EST Glomerular Filtration Rate 187 mL/min (>60); Est Glom Filt Rate - Afr Amer 226 mL/min (>60); Estimated Creatinine Clearance 178.35 ml/min; Glucose 92 mg/dL (74-106); Sodium Level 139 mmol/L (136-145)
[2019-03-14 06:07] LABS: Scan Indicated on CBC? Y/N YES- FLAGS NOTED
[2019-03-14 06:52] LABS: Differential Comment SCANNED
[2019-03-14] MEDS: Lisinopril 40 MG Tablet PO ×2 (08:58→20:04)
[2019-03-14] MEDS: Lactated Ringers 1,000 ML 100 ML IV (09:06)
--- NOTE | 2019-03-14 09:07 | NURSING ---
0800 IV Vancomycin hung at 0904. Accidentally charted bag was complete immediately after. Unable to edit to change IV ATB to running status.
--- NOTE | 2019-03-14 09:55 | CASEMGMT ---
Addendum entered by Garret Jovel 03/14/19 11:10: Called to verify referral with Nia @ [facility], [facility]. They can accept patient, and will see her on Wednesday, Feb for start of care. Pt and physician updated ok to dc tomorrow if medically stable and [facility] will see pt Wednesday. Aye MORELOS Original Note: RN CM Assessment Presentation: I/D necrotic infected seroma. Intro role of CM and purpose of RN CM assessment to patient in room. Pt is awake, alert and able to participate in assessment. Demographics, PCP and Pharmacy verified. Pt plans to return home on dc. Lives with her mother, who is not able to assist much on dc. Pt has had wound vac before and is familiar with process. -List [facility] agencies given to patient and reviewed. First choice is [facility]. Referral reviewed verbally, tentative acceptance with anticipated dc date of 03.15.19 and start of care (or Wednesday if needed). .Clinical information faxed, call to verify they received fax. [facility] PH: [phone] FX: [phone] PCP: Dr. Bethel Jauregui III Specialists: Dr. Mendieta Preferred Pharmacy: Insurance: [facility] Prescription Benefit: yes LNOK: Mother, Faith Salazar Living Arrangements: Lives independently with her mother. Pt states her mother has physical disabilities, so pt tries not to rely on her. Transportation: pt drives but states she can have someone drive her for f/u if needed. DME: none. Will go home with wound vac . Alena has sent for authorization. HHC: has had HHC in past. Patient DC goals: home DC PLAN: Home on discharge with [facility] through [facility]. Aye MORELOS
--- NOTE | 2019-03-14 10:44 | NURSING ---
wound photo: mid lower abdomen
--- NOTE | 2019-03-14 11:02 | PCM.PN.SRG ---
Subjective: Postop #1 Patient has wound pain. VAC applied today. - Physical Exam Vitals/I&O's: Vital Signs Temp Pulse Resp BP Pulse Ox 98.5 F 83 16 137/67 H 98 03/14/19 07:42 03/14/19 07:42 03/14/19 07:42 03/14/19 07:42 03/14/19 07:42 Oxygen Delivery Method Room Air Weight: 225 lb 12.054 oz Body Mass Index (BMI) 36.4 Intake and Output for Last 24 Hours 03/12/19 03/13/19 03/14/19 23:59 23:59 23:59 Intake Total 2308.33 / 2308.33 1326.67 / 1326.67 Output Total 200 / 200 Balance 2308.33 / 2308.33 1126.67 / 1126.67 General: Alert, Oriented x3 HEENT: PERRLA, EOMI Oral: Moist Mucosa Neck: Supple Abdomen: Soft, Non-Distended Skin: Ulcer/ Wound - abdominal wall and vulva involving mons pubis wound stable. No active bleeding noted. VAC applied today. Neurological: Cranial nerves II-XII grossly intact Psych/Mental Status: Normal Affect, Appropriate Laboratory Results 03/13/19 11:10: WBC 7.1, RBC 4.13 L, Hgb 8.6 L, Hct 28.7 L, MCV 69.5 L, MCH 20.8 L, MCHC 30.0 L, RDW Std Deviation 55.8 H, RDW Coeff of Andrez 22.7 H, Plt Count 843 H*, MPV 10.0, Differential Comment , Diff Path Review July, ESR 110 H 03/13/19 11:10: Sodium 136, Potassium 4.2, Chloride 104, Carbon Dioxide 28.0, Anion Gap 4 L, BUN 12, Creatinine 0.55, Estim Creat Clear Calc 136.20, Est GFR (MDRD) Af Amer 164, Est GFR (MDRD) Non-Af 135, BUN/Creatinine Ratio 21.9 H, Glucose 92, Calcium 8.6, Total Bilirubin 0.30, AST 18, ALT 37, Alkaline Phosphatase 137 H, C-React Prot Ext Range 115.00 H, Total Protein 6.5, Albumin 2.4 L, Globulin 4.1, Albumin/Globulin Ratio 0.6 L, Prealbumin 11.1 L 03/14/19 05:25: WBC 6.1, RBC 3.39 L, Hgb 6.9 L, Hct 23.5 L, MCV 69.3 L, MCH 20.4 L, MCHC 29.4 L, RDW Std Deviation 55.9 H, RDW Coeff of Andrez 22.9 H, Plt Count 701 H, MPV 10.2, Differential Comment SCANNED 03/14/19 05:25: Sodium 139, Potassium 4.0, Chloride 106, Carbon Dioxide 28.0, Anion Gap 5, BUN 8, Creatinine 0.42 L, Estim Creat Clear Calc 178.35, Est GFR (MDRD) Af Amer 226, Est GFR (MDRD) Non-Af 187, BUN/Creatinine Ratio 19.2, Glucose 92, Calcium 7.7 L 03/14/19 09:14: Blood Type A NEGATIVE, Antibody Screen NEGATIVE, Crossmatch See Detail Current Medications Amitriptyline HCl (Elavil) 50 mg PO QHS PRN PRN Reason: SLEEP Cyanocobalamin (Vitamin B12) 1,000 mcg IM Q30D [facility] Last Admin: 03/13/19 11:47 Dose: Not Given Documented by: Diazepam (Valium) 5 mg PO Q4H PRN PRN Reason: SPASMS Docusate Sodium (Colace) 100 mg PO BID [facility] Last Admin: 03/14/19 08:59 Dose: Not Given Documented by: Ergocalciferol (Vitamin D) 50,000 unit PO TUTH [facility] Last Admin: 03/14/19 08:58 Dose: 50,000 unit Documented by: Hydromorphone HCl (Dilaudid Inj) 1 mg IV Q3H PRN PRN Reason: Pain Score 6-10/10 Last Admin: 03/14/19 09:36 Dose: 1 mg Documented by: Sodium Chloride () 250 mls @ 15 mls/hr IV .[id number] PRN PRN Reason: Saline Flush Sodium Chloride () 250 mls @ 15 mls/hr IV .[id number] PRN PRN Reason: Additional IVPB Infusion Lactated Ringer's () 1,000 mls @ 100 mls/hr IV .Q10H [facility] Last Infusion: 03/14/19 09:07 Dose: 0 mls/hr Documented by: Vancomycin IV Pharmacy to Dose (1 ea/ Sodium Chloride) 500 mls @ 250 mls/hr IV X1 PRN; Protocol PRN Reason: Rx to Dose Vancomycin HCl 1,750 mg/ (Sodium Chloride) 535 mls @ 250 mls/hr IV Q12H [facility] Last Infusion: 03/14/19 09:04 Dose: Infused Documented by: Lisinopril (Zestril) 40 mg PO BID [facility] Last Admin: 03/14/19 08:58 Dose: 40 mg Documented by: Nutritional Formula (Collins - [place] Flavor) 1 packet PO BIDCM [facility] Last Admin: 03/14/19 08:58 Dose: Not Given Documented by: Nutritional Formula (Lactose Free) (Ensure Enlive) 120 ml PO 4X/DAY [facility] Last Admin: 03/14/19 08:58 Dose: Not Given Documented by: Ondansetron HCl (Zofran Odt) 4 mg PO 4X/DAY PRN PRN PRN Reason: NAUSEA Ondansetron HCl (Zofran) 4 mg IV Q6H PRN PRN PRN Reason: NAUSEA Oxycodone HCl (Oxyir) 10 mg PO Q4H PRN PRN PRN Reason: Pain Score 6-10/10 Last Admin: 03/14/19 07:43 Dose: 10 mg Documented by: Promethazine HCl (Phenergan Tablet) 25 mg PO Q4H PRN PRN PRN Reason: NAUSEA/VOMITING Sodium Chloride () 10 - 40 ml IV UD PRN PRN Reason: SALINE FLUSH Last Admin: 03/14/19 10:37 Dose: 10 ml Documented by: Tamsulosin HCl (Flomax) 0.4 mg PO DAILY PRN PRN Reason: kidney stones Medical Necessity - Tobacco Use Smoking Status: Never smoker Assessment/Plan All Active Problems (Last Reviewed 03/13/19 @ 08:30 by Griselda Chou) Methicillin resistant Staphylococcus epidermidis infection (Acute) Postprocedural seroma of skin and subcutaneous tissue following other procedure (Acute) Nonhealing surgical wound (Acute) Open wound of vulva with complication (Acute) Infection following a procedure, initial encounter (Acute) Hematoma, vulva (Acute) Postoperative hematoma of subcutaneous tissue following dermatologic procedure (Acute) Open wound anterior abdominal wall (Acute) ERIKA (acute kidney injury) (Acute) Cellulitis of abdominal wall (Acute) Cellulitis of pubic region (Acute) Uncontrolled hypertension (Acute) 1. Necrotic infected seroma abdominal wall and vulva involving the mons pubis area. 2. 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 3. 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 4. 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 5. s/p surgical preparation abdominal wall area with incision and drainage and excisional debridement necrotic infected seroma including umbilicus (182 cm2) and surgical preparation vulva involving the mons pubis area with incision and drainage and excisional debridement necrotic infected seroma (52 cm). 6. Anemia of chronic disease, acute on chronic. 7. Increased Alkaline Phosphatase, slowly resolving. Abdominal wall and vulva wound involving mons pubis areas are stable. No active bleeding noted. VAC applied today. She complains of increased pain with the application of the VAC. Will add Duragesic Patch. Operative culture negative thus far. Preoperative culture showed Staphylococcus aureus and MRSE. Continue Vancomycin. Prealbumin was 11.1. Encourage nutritional supplementation with protein to help the healing process. Alkaline Phosphatase was 137. This is an improvement from 180 a couple of weeks ago. She will followup with her PCP for further evaluation if it stays elevated. Patient has anemia of chronic disease, acute on chronic. Her Hgb this morning was 6.9 which is down from 8.6 preop. She had about 50 ml of operative blood loss. There is no active bleeding at this time. She also has IV dilution as her I's/O's are positive over 3 liters. Will obtain PRBC today. Will recheck CBC tomorrow. Her PCP has evaluated her anemia. He has her on Vitamin B12 injections. Once the VAC is approved, and Home Health is arranged, and she is tolerating po analgesia, then she may be discharged. Anticipating tomorrow. Followup at [facility]. Based on her preop cultures thus far, should be able to discharge her on oral antibiotics.
[2019-03-14 11:31] LABS: Pathologist Review Reviewed
--- NOTE | 2019-03-14 11:38 | NURSING ---
0800 IV Vancomycin completed running at this time.
--- NOTE | 2019-03-14 12:02 | NURSING ---
Verified patient can come out of contact isolation via [facility] of infection control.
[2019-03-14] MEDS: fentaNYL 25 MCG Patch TRANSDERM. ×2 (12:20→21:16)
[2019-03-14 20:05] LABS: Vancomycin, Trough Level 10.8 ug/mL (5.0-15.0)
--- NOTE | 2019-03-14 20:41 | PCM.RX.CS ---
Consult Pharmacy has been consulted to manage selected antiobiotic: Vancomycin Type of Consult: Follow-up Suspected Infection: Skin/Soft tissue Prior Doses of Antibiotics Received/Current Regimen: Vancomycin 1750mg q12h Labs: Sodium 139 mmol/L (136-145) 03/14/19 05:25 Potassium 4.0 mmol/L (3.5-5.1) 03/14/19 05:25 Chloride 106 mmol/L (98-107) 03/14/19 05:25 Carbon Dioxide 28.0 mmol/L (21.0-32.0) 03/14/19 05:25 Anion Gap 5 (5-15) 03/14/19 05:25 BUN 8 mg/dL (7-18) 03/14/19 05:25 Creatinine 0.42 mg/dL (0.55-1.02) L 03/14/19 05:25 Est GFR (MDRD) Af Amer 226 mL/min (>60) 03/14/19 05:25 Est GFR (MDRD) Non-Af 187 mL/min (>60) 03/14/19 05:25 BUN/Creatinine Ratio 19.2 RATIO (10-20) 03/14/19 05:25 Glucose 92 mg/dL (74-106) 03/14/19 05:25 Vancomycin Trough 10.8 ug/mL (5.0-15.0) 03/14/19 19:30 Microbiology: Microbiology 03/13/19 13:33 Tissue - Abdominal Gram Stain - Final 03/13/19 13:33 Tissue - Abdominal Wound Culture - Preliminary Gram positive organism Weight used for dosin kg Goal Trough: 10-15 mcg/mL Pharmacy Plan for Drug Dosing: Goal trough for the pt is 10-15. Trough level on 03/14/19 at 1930 resulted at 10.8. Recommend keeping pt on the same dose of Vancomycin 1750mg q12h at 0800,1999. Will check another trough in 4 days, 03/18/19 at 1930 Pharmacy Service will continue to monitor and adjust dosing as required. Follow-Up Labs: Trough Vancomycin - 03/18/19 at 1930
[2019-03-15] MEDS: oxyCODONE 5 MG Tablet 10 MG PO ×5 (00:25→19:47)
[2019-03-15 02:30] VITALS: BP 132/76; PULSE 84; RESP 18; TEMP 36.8; O2SAT 100
[2019-03-15] MEDS: HYDROmorphone 1 MG/ML Syringe IV ×5 (03:57→21:34)
[2019-03-15] MEDS: diazePAM 5 MG Tablet PO ×4 (06:34→19:47)
[2019-03-15] MEDS: Lactated Ringers 1,000 ML 100 ML IV (06:37)
[2019-03-15 06:42] LABS: Hemoglobin 9.2 g/dL (12.0-15.0); Mean Corp Hgb Conc 30.7 g/dL (32-36); Mean Corpuscular Hgb 22.1 pg (27.0-32.0); Mean Corpuscular Volume 71.9 fL (81-99); Mean Platelet Vol. 10.1 fl (6.2-12.0); POSITIVE MORPHOLOGY YES; Platelet Count 676 K/mm3 (150-450); RBC Distribution Width CV 24.5 % (11.6-14.6); RBC Distribution Width SD 61.1 fl (35.1-43.9); Red Blood Count 4.17 M/mm3 (4.2-5.4); White Blood Count 6.9 K/mm3 (4.4-11.0)
[2019-03-15 07:02] LABS: Anion Gap 5 (5-15); BUN 8 mg/dL (7-18); BUN/Creat Ratio 16.7 RATIO (10-20); Calcium,Total 8.4 mg/dL (8.5-10.1); Chloride 106 mmol/L (98-107); Creatinine, Serum 0.48 mg/dL (0.55-1.02); EST Glomerular Filtration Rate 158 mL/min (>60); Est Glom Filt Rate - Afr Amer 191 mL/min (>60); Estimated Creatinine Clearance 156.06 ml/min; Glucose 84 mg/dL (74-106); Potassium 3.9 mmol/L (3.5-5.1); Sodium Level 139 mmol/L (136-145)
[2019-03-15 07:11] LABS: Scan Indicated on CBC? Y/N YES- FLAGS NOTED
[2019-03-15 07:25] LABS: Differential Comment SCANNED
[2019-03-15] MEDS: 0.9% Saline Lock 10 ML Syringe IV ×3 (08:31→21:33)
[2019-03-15 10:00] VITALS: BP 132/72; PULSE 81; RESP 18; TEMP 37; O2SAT 98
[2019-03-15] MEDS: Lisinopril 40 MG Tablet PO ×2 (10:00→21:33)
[2019-03-15 13:27] VITALS: BP 150/69; PULSE 91; RESP 18; TEMP 36.9; O2SAT 100
--- NOTE | 2019-03-15 17:25 | PN.SURG_ITS ---
Subjective: Postop #2 Patient complains of wound pain. - Physical Exam Vitals/I&O's: Vital Signs Temp Pulse Resp BP Pulse Ox 98.4 F 91 18 150/69 H 100 03/15/19 13:27 03/15/19 13:27 03/15/19 13:27 03/15/19 13:27 03/15/19 13:27 Oxygen Delivery Method Room Air Weight: 225 lb 12.054 oz Body Mass Index (BMI) 36.4 Intake and Output for Last 24 Hours 03/13/19 03/14/19 03/15/19 23:59 23:59 23:59 Intake Total 2308.33 / 2308.33 2711.67 / 3111.67 3488.34 / 3488.34 Output Total 400 / 400 Balance 2308.33 / 2308.33 2311.67 / 2711.67 3488.34 / 3488.34 General: Alert, Oriented x3 HEENT: PERRLA, EOMI Oral: Moist Mucosa Neck: Supple Abdomen: Soft, Non-Distended Skin: Ulcer/ Wound - abdominal wall and vulva involving mons pubis wound stable. VAC in place. Minimal drainage in the canister. Neurological: Cranial nerves II-XII grossly intact Psych/Mental Status: Normal Affect, Appropriate Microbiology Past 72 Hours 03/13/19 13:33 Tissue - Abdominal Gram Stain - Final 03/13/19 13:33 Tissue - Abdominal Wound Culture - Preliminary Gram positive organism Laboratory Results 03/14/19 09:14: Crossmatch See Detail 03/14/19 19:30: Vancomycin Trough 10.8 03/15/19 06:00: WBC 6.9, RBC 4.17 L, Hgb 9.2 L, Hct 30.0 L, MCV 71.9 L, MCH 22.1 L, MCHC 30.7 L, RDW Std Deviation 61.1 H, RDW Coeff of Andrez 24.5 H, Plt Count 676 H, MPV 10.1, Differential Comment SCANNED 03/15/19 06:00: Sodium 139, Potassium 3.9, Chloride 106, Carbon Dioxide 28.0, Anion Gap 5, BUN 8, Creatinine 0.48 L, Estim Creat Clear Calc 156.06, Est GFR (MDRD) Af Amer 191, Est GFR (MDRD) Non-Af 158, BUN/Creatinine Ratio 16.7, Glucose 84, Calcium 8.4 L Current Medications Amitriptyline HCl (Elavil) 50 mg PO QHS PRN PRN Reason: SLEEP Cyanocobalamin (Vitamin B12) 1,000 mcg IM Q30D [facility] Last Admin: 03/13/19 11:47 Dose: Not Given Documented by: Diazepam (Valium) 5 mg PO Q4H PRN PRN Reason: SPASMS Last Admin: 03/15/19 15:45 Dose: 5 mg Documented by: Docusate Sodium (Colace) 100 mg PO BID [facility] Last Admin: 03/15/19 09:59 Dose: Not Given Documented by: Ergocalciferol (Vitamin D) 50,000 unit PO TUTH [facility] Last Admin: 03/14/19 08:58 Dose: 50,000 unit Documented by: Fentanyl (Duragesic Patch) 25 mcg TRANSDERM. Q3D [facility] Last Admin: 03/14/19 21:16 Dose: 25 mcg Documented by: Hydromorphone HCl (Dilaudid Inj) 1 mg IV Q3H PRN PRN Reason: Pain Score 6-10/10 Last Admin: 03/15/19 13:22 Dose: 1 mg Documented by: Sodium Chloride () 250 mls @ 15 mls/hr IV .[id number] PRN PRN Reason: Saline Flush Sodium Chloride () 250 mls @ 15 mls/hr IV .[id number] PRN PRN Reason: Additional IVPB Infusion Vancomycin IV Pharmacy to Dose (1 ea/ Sodium Chloride) 500 mls @ 250 mls/hr IV X1 PRN; Protocol PRN Reason: Rx to Dose Vancomycin HCl 1,750 mg/ (Sodium Chloride) 535 mls @ 250 mls/hr IV Q12H [facility] Last Infusion: 03/15/19 11:40 Dose: Infused Documented by: Lisinopril (Zestril) 40 mg PO BID [facility] Last Admin: 03/15/19 10:00 Dose: 40 mg Documented by: Nutritional Formula ([facility] - [place] [facility] Last Admin: 03/15/19 09:25 Dose: Not Given Documented by: Nutritional Formula (Lactose Free) (Ensure Enlive) 120 ml PO 4X/DAY [facility] Last Admin: 03/15/19 13:26 Dose: Not Given Documented by: Ondansetron HCl (Zofran Odt) 4 mg PO 4X/DAY PRN PRN PRN Reason: NAUSEA Ondansetron HCl (Zofran) 4 mg IV Q6H PRN PRN PRN Reason: NAUSEA Oxycodone HCl (Oxyir) 10 mg PO Q4H PRN PRN PRN Reason: Pain Score 6-10/10 Last Admin: 03/15/19 15:45 Dose: 10 mg Documented by: Promethazine HCl (Phenergan Tablet) 25 mg PO Q4H PRN PRN PRN Reason: NAUSEA/VOMITING Sodium Chloride () 10 - 40 ml IV UD PRN PRN Reason: SALINE FLUSH Last Admin: 03/15/19 13:22 Dose: 10 ml Documented by: Tamsulosin HCl (Flomax) 0.4 mg PO DAILY PRN PRN Reason: kidney stones Medical Necessity - Tobacco Use Smoking Status: Never smoker Assessment/Plan All Active Problems (Last Reviewed 03/14/19 @ 18:02 by Gigi Mendieta MD) Methicillin resistant Staphylococcus epidermidis infection (Acute) Postprocedural seroma of skin and subcutaneous tissue following other procedure (Acute) Nonhealing surgical wound (Acute) Open wound of vulva with complication (Acute) Infection following a procedure, initial encounter (Acute) Hematoma, vulva (Acute) Postoperative hematoma of subcutaneous tissue following dermatologic procedure (Acute) Open wound anterior abdominal wall (Acute) ERIKA (acute kidney injury) (Acute) Cellulitis of abdominal wall (Acute) Cellulitis of pubic region (Acute) Uncontrolled hypertension (Acute) 1. Necrotic infected seroma abdominal wall and vulva involving the mons pubis area. 2. 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 3. 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 4. 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 5. s/p surgical preparation abdominal wall area with incision and drainage and excisional debridement necrotic infected seroma including umbilicus (182 cm2) and surgical preparation vulva involving the mons pubis area with incision and drainage and excisional debridement necrotic infected seroma (52 cm). 6. Anemia of chronic disease, acute on chronic, stable after PRBC. 7. Increased Alkaline Phosphatase, slowly resolving. Abdominal wall and vulva wound involving mons pubis areas are stable. VAC in place. Minimal drainage in the canister. Will change the VAC tomorrow. She is concerned about pain control with the VAC after discharge. Will see how she does with the VAC change tomorrow before discharge. Operative culture shows Gram positive organism. Preoperative culture showed Staphylococcus aureus and MRSE. Continue Vancomycin. Anticipate discharge home on Doxycycline. Prealbumin was 11.1. Encourage nutritional supplementation with protein to help the healing process. Alkaline Phosphatase was 137. This is an improvement from 180 a couple of weeks ago. She will followup with her PCP for further evaluation if it stays elevated. Patient has anemia of chronic disease, acute on chronic. Her Hgb this morning improved to 9.2 after the PRBC. She had about 50 ml of operative blood loss. There is no active bleeding at this time. She also has IV dilution as her I's/O's are positive over 4 liters. Will recheck CBC tomorrow. Her PCP has evaluated her anemia. He has her on Vitamin B12 injections. Will discharge after the VAC change tomorrow. Followup at the [facility].
[2019-03-15 17:42] VITALS: BP 156/78; PULSE 96; RESP 14; TEMP 37.1; O2SAT 99
[2019-03-15 21:30] VITALS: BP 148/62; PULSE 88; RESP 18; TEMP 37.1; O2SAT 97
[2019-03-15] MEDS: Docusate Sodium 100 MG Capsule PO (21:33)
[2019-03-16] MEDS: HYDROmorphone 1 MG/ML Syringe IV ×2 (02:31→08:26)
[2019-03-16] MEDS: 0.9% Saline Lock 10 ML Syringe IV ×2 (02:35→08:26)
[2019-03-16 02:40] VITALS: BP 146/71; PULSE 82; RESP 18; TEMP 37.3; O2SAT 95
[2019-03-16] MEDS: oxyCODONE 5 MG Tablet 10 MG PO ×2 (05:18→10:34)
[2019-03-16] MEDS: diazePAM 5 MG Tablet PO ×2 (05:20→10:34)
[2019-03-16 06:21] LABS: Hemoglobin 8.2 g/dL (12.0-15.0); Mean Corp Hgb Conc 31.5 g/dL (32-36); Mean Corpuscular Hgb 22.6 pg (27.0-32.0); Mean Corpuscular Volume 71.6 fL (81-99); Mean Platelet Vol. 9.6 fl (6.2-12.0); POSITIVE MORPHOLOGY YES; Platelet Count 570 K/mm3 (150-450); RBC Distribution Width CV 25.2 % (11.6-14.6); Red Blood Count 3.63 M/mm3 (4.2-5.4); White Blood Count 6.2 K/mm3 (4.4-11.0)
[2019-03-16 06:24] LABS: Scan Indicated on CBC? Y/N YES- FLAGS NOTED
[2019-03-16 06:50] LABS: Anion Gap 5 (5-15); BUN 8 mg/dL (7-18); BUN/Creat Ratio 19.1 RATIO (10-20); Chloride 102 mmol/L (98-107); Creatinine, Serum 0.42 mg/dL (0.55-1.02); Differential Comment SCANNED; EST Glomerular Filtration Rate 185 mL/min (>60); Est Glom Filt Rate - Afr Amer 224 mL/min (>60); Estimated Creatinine Clearance 178.35 ml/min; Glucose 82 mg/dL (74-106); Potassium 3.9 mmol/L (3.5-5.1); Sodium Level 137 mmol/L (136-145)
[2019-03-16 08:20] VITALS: BP 149/68; PULSE 91; RESP 16; TEMP 37.1; O2SAT 97
[2019-03-16] MEDS: Docusate Sodium 100 MG Capsule PO (08:27)
[2019-03-16] MEDS: Lisinopril 40 MG Tablet PO (08:27)
--- NOTE | 2019-03-16 11:51 | PCM.PN.SRG ---
Subjective: Resting in bed. Complains of incisional pain. - Physical Exam Vitals/I&O's: Vital Signs Temp Pulse Resp BP Pulse Ox 98.7 F 91 16 149/68 H 97 03/16/19 08:20 03/16/19 08:20 03/16/19 08:20 03/16/19 08:20 03/16/19 08:20 Oxygen Delivery Method Room Air Weight: 225 lb 12.054 oz Body Mass Index (BMI) 36.4 Intake and Output for Last 24 Hours 03/14/19 03/15/19 03/16/19 23:59 23:59 23:59 Intake Total 2711.67 / 3111.67 4023.34 / 4263.34 1015 / 1015 Output Total 400 / 400 Balance 2311.67 / 2711.67 4023.34 / 4263.34 1015 / 1015 General: Alert, Oriented x3, Cooperative HEENT: Atraumatic Oral: Moist Mucosa Lungs: Clear to auscultation, Normal air movement Cardiovascular: Regular rate, Regular Rhythm Abdomen: Soft, Obese Extremities: Capillary Refill Less than 3 Seconds Skin: Ulcer/ Wound - Lower mid abdominal opened area with wound VAC dressing in place. Neurological: Neuro grossly intact Psych/Mental Status: Normal Affect, Appropriate Microbiology Past 72 Hours 03/13/19 13:33 Tissue - Abdominal Gram Stain - Final 03/13/19 13:33 Tissue - Abdominal Wound Culture - Final Actinomyces odontolyticus Staphylococcus simulans 03/13/19 13:33 Tissue - Abdominal Anaerobic Culture - Preliminary Checking for anaerobes, further studies to follow. Laboratory Results 03/16/19 06:04: WBC 6.2, RBC 3.63 L, Hgb 8.2 L, Hct 26.0 L, MCV 71.6 L, MCH 22.6 L, MCHC 31.5 L, RDW Std Deviation 61.0 H, RDW Coeff of Andrez 25.2 H, Plt Count 570 H, MPV 9.6, Differential Comment SCANNED 03/16/19 06:04: Sodium 137, Potassium 3.9, Chloride 102, Carbon Dioxide 30.0, Anion Gap 5, BUN 8, Creatinine 0.42 L, Estim Creat Clear Calc 178.35, Est GFR (MDRD) Af Amer 224, Est GFR (MDRD) Non-Af 185, BUN/Creatinine Ratio 19.1, Glucose 82, Calcium 8.0 L Current Medications Amitriptyline HCl (Elavil) 50 mg PO QHS PRN PRN Reason: SLEEP Cyanocobalamin (Vitamin B12) 1,000 mcg IM Q30D [facility] Last Admin: 03/13/19 11:47 Dose: Not Given Documented by: Diazepam (Valium) 5 mg PO Q4H PRN PRN Reason: SPASMS Last Admin: 03/16/19 10:34 Dose: 5 mg Documented by: Docusate Sodium (Colace) 100 mg PO BID [facility] Last Admin: 03/16/19 08:27 Dose: 100 mg Documented by: Ergocalciferol (Vitamin D) 50,000 unit PO TUTH [facility] Last Admin: 03/16/19 08:27 Dose: 50,000 unit Documented by: Fentanyl (Duragesic Patch) 25 mcg TRANSDERM. Q3D [facility] Last Admin: 03/14/19 21:16 Dose: 25 mcg Documented by: Hydromorphone HCl (Dilaudid Inj) 1 mg IV Q3H PRN PRN Reason: Pain Score 6-10/10 Last Admin: 03/16/19 08:26 Dose: 1 mg Documented by: Sodium Chloride () 250 mls @ 15 mls/hr IV .[id number] PRN PRN Reason: Saline Flush Sodium Chloride () 250 mls @ 15 mls/hr IV .[id number] PRN PRN Reason: Additional IVPB Infusion Vancomycin IV Pharmacy to Dose (1 ea/ Sodium Chloride) 500 mls @ 250 mls/hr IV X1 PRN; Protocol PRN Reason: Rx to Dose Vancomycin HCl 1,750 mg/ (Sodium Chloride) 535 mls @ 250 mls/hr IV Q12H [facility] Last Infusion: 03/16/19 11:46 Dose: Infused Documented by: Lisinopril (Zestril) 40 mg PO BID [facility] Last Admin: 03/16/19 08:27 Dose: 40 mg Documented by: Nutritional Formula ([facility] - [place] Flavor) [facility] Admin: 03/16/19 08:27 Dose: Not Given Documented by: Ondansetron HCl (Zofran Odt) 4 mg PO 4X/DAY PRN PRN PRN Reason: NAUSEA Ondansetron HCl (Zofran) 4 mg IV Q6H PRN PRN PRN Reason: NAUSEA Oxycodone HCl (Oxyir) 10 mg PO Q4H PRN PRN PRN Reason: Pain Score 6-10/10 Last Admin: 03/16/19 10:34 Dose: 10 mg Documented by: Promethazine HCl (Phenergan Tablet) 25 mg PO Q4H PRN PRN PRN Reason: NAUSEA/VOMITING Sodium Chloride () 10 - 40 ml IV UD PRN PRN Reason: SALINE FLUSH Last Admin: 03/16/19 08:26 Dose: 10 ml Documented by: Tamsulosin HCl (Flomax) 0.4 mg PO DAILY PRN PRN Reason: kidney stones Medical Necessity - Tobacco Use Smoking Status: Never smoker Assessment/Plan All Active Problems (Last Reviewed 03/14/19 @ 18:02 by Gigi eMndieta MD) Local infection of the skin and subcutaneous tissue, unspecified (Acute) Skin necrosis (Acute) Methicillin resistant Staphylococcus epidermidis infection (Acute) Postprocedural seroma of skin and subcutaneous tissue following other procedure (Acute) Nonhealing surgical wound (Acute) Open wound of vulva with complication (Acute) Infection following a procedure, initial encounter (Acute) Hematoma, vulva (Acute) Postoperative hematoma of subcutaneous tissue following dermatologic procedure (Acute) Open wound anterior abdominal wall (Acute) ERIKA (acute kidney injury) (Acute) Cellulitis of abdominal wall (Acute) Cellulitis of pubic region (Acute) Uncontrolled hypertension (Acute) 1. Necrotic infected seroma abdominal wall and vulva involving the mons pubis area. 2. 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 3. 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 4. 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 5. s/p surgical preparation abdominal wall area with incision and drainage and excisional debridement necrotic infected seroma including umbilicus (182 cm2) and surgical preparation vulva involving the mons pubis area with incision and drainage and excisional debridement necrotic infected seroma (52 cm). 6. Anemia of chronic disease, acute on chronic, stable after PRBC. 7. Increased Alkaline Phosphatase, slowly resolving. Abdominal wall and vulva wound involving mons pubis areas are stable. VAC in place. Dressing changed this morning. Minimal drainage in the canister. She is concerned about pain control with the VAC after discharge. Operative culture shows Actinomyces odontolyticus and Staphylococcus simulans. Preoperative culture showed Staphylococcus aureus and MRSE. Continue Vancomycin until discharged. Will place on Doxycycline at discharge. Prealbumin was 11.1. Encourage nutritional supplementation with protein to help the healing process. Alkaline Phosphatase was 137. This is an improvement from 180 a couple of weeks ago. She will followup with her PCP for further evaluation if it stays elevated. Patient has anemia of chronic disease, acute on chronic. Her Hgb this morning was 8.2. Will recheck CBC next week. She had about 50 ml of operative blood loss. There is no active bleeding at this time. She also has IV dilution as her I's/O's are positive over 4 liters. . Her PCP has evaluated her anemia. He has her on Vitamin B12 injections. Will discharge today. Followup at the [facility].
--- NOTE | 2019-03-16 12:00 | NURSING ---
Nesha Vaughan NP in to discharge patient. pt switched over to the home VAC. pt denies questions. Pt has had the wound VAC previously. no further needs voiced at this time.
--- NOTE | 2019-03-16 12:38 | DCINST_ITS ---
You will use the following diet at home:: No restrictions, Other - encourage nutritional supplementation with protein to help the healing process. Discharge Activity: Return to Normal Activity, May not drive while taking narcotic pain medications., May Shower - on the days the vac is changed., - - no heavy lifting. Return to work on:: 03/20/19 - Tentative May shower in (days): 2 - on the days the vac is changed. May resume sexual activity in: No Restrictions Weight Bearing Status: Weight bearing as tolerated Lifting Restrictions: 20 lbs. Keep extremity elevated above heart level: - - elevate head. Call your doctor if your incision/area has: Continuous Slow Oozing, Sudden Increased Bleeding, Increased Pain/ Swelling, Increased Redness, Foul Smelling Discharge, Swelling at the incision site Call your doctor if you observe: Fever of 101 or Higher, Coldness, Increased Pain, Shortness of breath, Chest pain, Calf discomfort, Uncontrolled pain Suture Line Care: - - vac changes three times per week at 150 mmHg continuous suction. Change Dressing in (Days):: 2 - vac changes three times per week. Cleanse incision/area with: Soap & Water - may cleanse the wound with soap and water on the days the vac is changed., - - may shower on the days the vac is ch anged. Additional Dressing/Incision Instructions:: Home Health to assisst with vac changes three times per week at 150 mmHg continuous suction. Please cleanse the wound with soap and water at the time of the vac change. Allergies/Adverse Reactions: Allergies methocarbamol Allergy (Verified 03/13/19 08:35) Chest tightness gabapentin Adverse Reaction (Verified 03/13/19 08:35) MADE ME WALK SIDEWAYS ketorolac tromethamine [From Toradol] Adverse Reaction (Verified 03/13/19 08:35) Upset Stomach NSAIDS (Non-Steroidal Anti-Inflamma Adverse Reaction (Verified 03/13/19 08:35) gastric bipass not supposed to take tramadol Adverse Reaction (Verified 03/13/19 08:35) Upset Stomach Medications to take at Discharge Amitriptyline HCl [Elavil] 50 mg PO QHS PRN 04/30/17 Ergocalciferol [Vitamin D] 50,000 unit PO TUTH 04/30/17 Etonogestrel [Nexplanon] 68 mg SQ UD 04/30/17 Tamsulosin HCl [Flomax] 0.4 mg PO DAILY PRN 04/30/17 Lisinopril [Zestril] 40 mg PO BID 05/30/17 Cyanocobalamin [Vitamin B12] 1,000 mcg IM Q30D 07/06/17 Diazepam [Valium] 5 mg PO 4X/DAY PRN PRN #30 tab 03/16/19 Docusate Sodium [Colace] 100 mg PO BID #60 cap 03/16/19 Doxycycline [Vibramycin] 100 mg PO BID #42 cap 03/16/19 HYDROmorphone tablet [Dilaudid] 2 mg PO .Q4 HOURS PRN PRN 7 Days #40 tab 03/16/19 Ondansetron [Zofran Odt] 4 mg PO 4X/DAY PRN PRN #30 tab 03/16/19 fentaNYL patch [Duragesic patch] 25 mcg TRANSDERM. Q3D 6 Days #2 patch 03/16/19 The following prescriptions were given: Docusate Sodium [Colace] 100 mg PO BID #60 cap Transmission Status: Received by [address] HYDROmorphone tablet [Dilaudid] 2 mg PO .Q4 HOURS PRN PRN 7 Days #40 tab PRN Reason: Pain Score 4-5/10 Transmission Status: Received by [address] fentaNYL patch [Duragesic patch] 25 mcg TRANSDERM. Q3D 6 Days #2 patch Transmission Status: Received by [address] Diazepam [Valium] 5 mg PO 4X/DAY PRN PRN #30 tab PRN Reason: Spasms Transmission Status: Received by [address] Doxycycline [Vibramycin] 100 mg PO BID #42 cap Transmission Status: Received by [address] Ondansetron [Zofran Odt] 4 mg PO 4X/DAY PRN PRN #30 tab PRN Reason: Nausea Transmission Status: Received by [address] Primary Care Physician: Bethel Jauregui III, MD [Primary Care Provider] - Test Results: Test results from this visit will be discussed in further detail at your follow- up appointment, if applicable. Please Follow Up With: Gigi Mendieta MD When: wednesday03/27/19 at wound center. please call [phone] for appt. Please Follow Up With: [facility] When: Wednesday Proposed Discharge Date: 03/16/19
--- NOTE | 2019-03-16 13:40 | CASEMGMT ---
[facility] order, H&P, and d/c instructions faxed to [facility] at this time. Call to Irma at [facility] and she is aware that pt being discharged today and that wound vac does not need changed until wednesday, voices understanding. This RN CM to fax d/c summary when available. Anna SILVA CM
--- NOTE | 2019-03-16 15:35 | DS.PCM_ITS ---
Discharge Date and Diagnosis Date of Admission: 03/13/19 Date of Discharge: 03/16/19 - Primary Discharge Diagnosis Necrotic infected seroma abdominal wall and vulva involving the mons pubis area. Anemia of chronic disease, acute on chronic, stable after PRBC. - Secondary Discharge Diagnosis Vulvar ulceration Lymphedema genitalia involving genitocrural area extending up to labia. 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 Increased Alkaline Phosphatase, slowly resolving. Hospital Course and Treatment Imaging Results: None. 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 Surgical preparation abdominal wall area with incision and drainage and excisional debridement necrotic infected seroma including umbilicus (182 cm2). 2. Surgical preparation vulva involving the mons pubis area with incision and drainage and excisional debridement necrotic infected seroma (52 cm). Procedures: Blood transfusion, Wound vac placement Summary of Care Provided: Patient had surgery on 02/21/19 where she underwent surgical preparation vulva involving mons pubis with excisional debridement painful infected skin graft scar contour deformity and reconstruction with abdominal wall advancement skin flap (215 cm2) and complex secondary wound closure. Postoperatively she developed some necrosis in the umbilical area with subsequent drainage. Also a portion of the distal skin flap in the pubic area developed some compromise with skin necrosis. After local debridement in the office, wound care was started with Dakin's solution dressing changes. Wound cultures were done and she was started on Levaquin. The wound cultures were positive for MRSE and Staphylococcus aureus. There was persistent drainage from the wounds and wound care has been difficult at home. Recommend operative in tervention with surgical preparation abdominal wall and vulva involving mons pubis with incision and drainage and excisional debridement necrotic infected abdominal wall seroma. Postop op wound care will be with the VAC. Will treat perioperatively with Vancomycin. She was taken to surgery today 03/13/19 and underwent surgical preparation abdominal wall area with incision and drainage and excisional debridement necrotic infected seroma including umbilicus (182 cm2) and surgical preparation vulva involving the mons pubis area with incision and drainage and excisional debridement necrotic infected seroma (52 cm). She tolerated the procedure well. The VAC was applied the next day. She had increased pain with the VAC. I added Duragesic Patch to help with the pain. She was treated perioperatively with Vancomycin because of her preop cultures that showed MRSE and Staphylococcus aureus. Prealbumin was 11.1. Encourage nutritional supplementation with protein to help the healing process. Alkaline Phosphatase was 137. This is an improvement from 180 a couple of weeks ago. She will followup with her PCP for further evaluation if it stays elevated. Patient has anemia of chronic disease, acute on chronic. Her Hgb preop was 8.6 and decreased to 6.9 after the operative debridement. She received 2 units PRBC and her Hgb improved to 8.2 at discharge. There was minimal blood loss at surgery (50 ml) and there was no bleeding postop. The anemia is not due to acute blood loss. The anemia of chronic disease, acute on chronic, was due to I V dilution as her I's/O's were positive about 4 liters after the surgery. Her PCP has evaluated her anemia. He has her on Vitamin B12 injections. On the 3rd postop day, the VAC was changed and she was discharged home. Operative culture showed Actinomyces odontolyticus and Staphylococcus simulans (Methicillin resistant). Anaerobic cultures are pending. Wrote script for Doxycycline for 21 days and a refill. Wrote scripts for Dilaudid for pain (40 tabs) and for Valium for spasm (30 tabs) and for Duragesic Patch, 25mcg, for pain (2 patches). Wrote scripts for Zofran for nausea (30 tabs) and a refill and for Colace for constipation (60 tabs). Followup at the [facility]ound Center on 03/27/19. - Physical Exam Vitals/I&O's: Vital Signs Temp Pulse Resp BP Pulse Ox 98.7 F 91 16 149/68 H 97 03/16/19 08:20 03/16/19 08:20 03/16/19 08:20 03/16/19 08:20 03/16/19 08:20 Oxygen Delivery Method Room Air Weight: 225 lb 12.054 oz Body Mass Index (BMI) 36.4 Intake and Output for Last 24 Hours 03/14/19 03/15/19 03/16/19 23:59 23:59 23:59 Intake Total 2711.67 / 3111.67 4023.34 / 4263.34 1255 / 1255 Output Total 400 / 400 Balance 2311.67 / 2711.67 4023.34 / 4263.34 1255 / 1255 Microbiology Past 72 Hours 03/13/19 13:33 Tissue - Abdominal Gram Stain - Final 03/13/19 13:33 Tissue - Abdominal Wound Culture - Final Actinomyces odontolyticus Staphylococcus simulans 03/13/19 13:33 Tissue - Abdominal Anaerobic Culture - Preliminary Checking for anaerobes, further studies to follow. Laboratory Results 03/16/19 06:04: WBC 6.2, RBC 3.63 L, Hgb 8.2 L, Hct 26.0 L, MCV 71.6 L, MCH 22.6 L, MCHC 31.5 L, RDW Std Deviation 61.0 H, RDW Coeff of Andrez 25.2 H, Plt Count 570 H, MPV 9.6, Differential Comment SCANNED 03/16/19 06:04: Sodium 137, Potassium 3.9, Chloride 102, Carbon Dioxide 30.0, Anion Gap 5, BUN 8, Creatinine 0.42 L, Estim Creat Clear Calc 178.35, Est GFR (MDRD) Af Amer 224, Est GFR (MDRD) Non-Af 185, BUN/Creatinine Ratio 19.1, Glucose 82, Calcium 8.0 L Discharge Diet: No Restrictions, - - encourage nutritional supplementation wit protein to help the healing process. Discharge Activity: Return to Normal Activity, May not drive while taking narcotic pain medications., May Shower - on the days the vac is changed., - - no heavy lifting. Return to work on:: 03/20/19 - Tentative May shower in (days): 2 - on the days the vac is changed. May resume sexual activity in: No Restrictions Weight Bearing Status: Weight bearing as tolerated Keep extremity elevated above heart level: - - elevate head. Call your doctor if your incision/area has: Continuous Slow Oozing, Sudden Increased Bleeding, Increased Pain/ Swelling, Increased Redness, Foul Smelling Discharge, Swelling at the incision site Call your doctor if you observe: Fever of 101 or Higher, Coldness, Increased Pain, Shortness of breath, Chest pain, Calf discomfort, Uncontrolled pain Suture Line Care: - - vac changes three times per week at 150 mmHg continuous suction. Change Dressing in (Days):: 2 - vac changes three times per week. Cleanse incision/area with: Soap & Water - may cleanse the wound with soap and water on the days the vac is changed., - - may shower on the days the vac is changed. Additional Dressing/Incision Instructions:: Home Health to assisst with vac changes three times per week at 150 mmHg continuous suction. Please cleanse the wound with soap and water at the time of the vac change. Home Medications: Medications to take at Discharge Amitriptyline HCl [Elavil] 50 mg PO QHS PRN 04/30/17 Ergocalciferol [Vitamin D] 50,000 unit PO TUTH 04/30/17 Etonogestrel [Nexplanon] 68 mg SQ UD 04/30/17 Tamsulosin HCl [Flomax] 0.4 mg PO DAILY PRN 04/30/17 Lisinopril [Zestril] 40 mg PO BID 05/30/17 Cyanocobalamin [Vitamin B12] 1,000 mcg IM Q30D 07/06/17 Diazepam [Valium] 5 mg PO 4X/DAY PRN PRN #30 tab 03/16/19 Docusate Sodium [Colace] 100 mg PO BID #60 cap 03/16/19 Doxycycline [Vibramycin] 100 mg PO BID #42 cap 03/16/19 HYDROmorphone tablet [Dilaudid] 2 mg PO .Q4 HOURS PRN PRN 7 Days #40 tab 03/16/19 Ondansetron [Zofran Odt] 4 mg PO 4X/DAY PRN PRN #30 tab 03/16/19 fentaNYL patch [Duragesic patch] 25 mcg TRANSDERM. Q3D 6 Days #2 patch 03/16/19 Following Prescrptions Were Given to Patient: Docusate Sodium [Colace] 100 mg PO BID #60 cap Transmission Status: Received by [address] HYDROmorphone tablet [Dilaudid] 2 mg PO .Q4 HOURS PRN PRN 7 Days #40 tab PRN Reason: Pain Score 4-5/10 Transmission Status: Received by [address] fentaNYL patch [Duragesic patch] 25 mcg TRANSDERM. Q3D 6 Days #2 patch Transmission Status: Received by [address] Diazepam [Valium] 5 mg PO 4X/DAY PRN PRN #30 tab PRN Reason: Spasms Transmission Status: Received by [address] Doxycycline [Vibramycin] 100 mg PO BID #42 cap Transmission Status: Received by [address] Ondansetron [Zofran Odt] 4 mg PO 4X/DAY PRN PRN #30 tab PRN Reason: Nausea Transmission Status: Received by [address] Primary Care Physician: Bethel Jauregui III, MD [Primary Care Provider] - Please Follow Up With: Gigi Mendieta MD When: wednesday03/27/19 at [facility]. please call [phone] for appt. Please Follow Up With: [facility] When: Wednesday Disposition: Home with Home Health Minutes spent on discharge:: 35 Patient Condition:: Stable Medical Necessity - Tobacco Use Smoking Status: Never smoker Meaningful Use Info Meaningful Use Diagnoses (Choose all that apply): None applicable
== END 2019-03-16 13:53 | disposition home health service (06) | DRG 793 ==
PROVIDERS: Admitting Provider Surgery; Family Provider Family Medicine; PCP Family Medicine; Referring Provider Surgery; Visit Provider Surgery
DX: L76.34 Postprocedural seroma of skin and subcutaneous tissue following other procedure (principal); Y83.8 Other surgical procedures as the cause of abnormal reaction of the patient, or of later complication, without mention of misadventure at the time of the procedure; N90.89 Other specified noninflammatory disorders of vulva and perineum; Z98.84 Bariatric surgery status; I10 Essential (primary) hypertension; L30.4 Erythema intertrigo; D63.8 Anemia in other chronic diseases classified elsewhere; I96 Gangrene, not elsewhere classified
CPT/HCPCS: 36415; 80048; 80053; 80202; 84134; 85027; 85652; 86140; 86850; 86900; 86901; 86920; 86922; 87070; 87075; 87077; 87102; 87186; 87205; 87206; 88304; 88305; 97802; 99251; J7040; J7120; P9016; A4216; G0463; J2405

== ENCOUNTER 2019-03-27 12:29 | Inpatient (IN) | payer MEDICAID, SELFPAY ==
[2019-03-27 10:49] VITALS: BMI 36.4
[2019-03-27 12:30] VITALS: BP 189/104; PULSE 111; RESP 20; TEMP 37.2; O2SAT 98; BMI 35.5
[2019-03-27] MEDS: Ondansetron 4 MG/2 ML Vial IV (13:33)
[2019-03-27] MEDS: HYDROmorphone 1 MG/ML Syringe IV ×4 (13:33→21:28)
[2019-03-27] MEDS: 0.9% Normal Saline 1,000 ML 1000 ML IV (13:33)
--- NOTE | 2019-03-27 13:56 | NURSING ---
MED SURG SLABY ABD WOUND
--- NOTE | 2019-03-27 14:00 | ED.DCSUM_ITS ---
- ER Visit Summary Date of Service: 03/27/19 Chief Complaint: Wound History of Present Illness: The patient is a 34 F who is status post gastric bypass and panniculectomy in February by Dr. Mendieta. Patient was referred to the ED by wound care for pain control, antibiotics, and possible I&D. Patient denies fever or systemic symptoms. Physical Examination: Afebrile and vital signs unremarkable except for hypertension. Patient in no acute distress. Patient has an extensive abdominal cutaneous wound with foul-smelling discharge and mild erythema. No active bleeding. She does have some associated tenderness around the wound. Test Results: Labs are pending. Emergency Department Course and Treatment: Patient was discussed with Dr. Mendieta and will need inpatient care. She was started on Zosyn and vancomycin. She also received fluids, Dilaudid, and Zofran. Labs are pending. Patient does not have any signs of shock. She will need admission to the hospital. Treatment Plan: As above Disposition: Admission Impression: 1. Abdominal wound This note was generated with [facility] dictation software. It may contain incorrect words, spelling, and punctuation that were not noted in review of the chart prior to signing ED Disposition - Plan for ED Patient: Referrals: Bethel Jauregui III, MD [Primary Care Provider] -
[2019-03-27 14:31] VITALS: BMI 35.5
[2019-03-27 15:11] LABS: ALB/GLOB Ratio 0.6 RATIO (0.9-2.4); AST(SGOT) 25 U/L (15-37); Alanine Aminotransfer ALT/SGPT 225 U/L (13-56); Albumin, Serum 2.6 g/dL (3.2-5.0); Alkaline Phosphatase 258 U/L (45-117); Anion Gap 10 (5-15); BUN 24 mg/dL (7-18); BUN/Creat Ratio 21.8 RATIO (10-20); Calcium,Total 9.1 mg/dL (8.5-10.1); Chloride 107 mmol/L (98-107); EST Glomerular Filtration Rate 61 mL/min (>60); Est Glom Filt Rate - Afr Amer 74 mL/min (>60); Globulin 4.2 g/dL (2.2-4.2); Glucose 83 mg/dL (74-106); Potassium 4.8 mmol/L (3.5-5.1); Protein, Total 6.8 g/dL (6.4-8.2); Sodium Level 137 mmol/L (136-145)
[2019-03-27 15:40] VITALS: BMI 34.2
[2019-03-27 15:42] VITALS: BP 144/80; PULSE 107; RESP 20; TEMP 37.2; O2SAT 99
--- NOTE | 2019-03-27 16:12 | PCM.HP.BLA ---
History and Physical Date of Admission: 03/27/19 HISTORY OF PRESENT ILLNESS Patient had surgery on 02/21/19 where she underwent surgical preparation vulva involving mons pubis with excisional debridement painful infected skin graft scar contour deformity and reconstruction with abdominal wall advancement skin flap (215 cm2) and complex secondary wound closure. Postoperatively she developed some necrosis in the umbilical area with subsequent drainage. Also a portion of the distal skin flap in the pubic area developed some compromise with skin necrosis. After local debridement in the office, wound care was started with Dakin's solution dressing changes. Wound cultures were done and she was started on Levaquin. The wound cultures were positive for MRSE and Staphylococcus aureus. There was persistent drainage from the wounds and wound care has been difficult at home. She was taken to surgery on 03/13/19 where she underwent surgical preparation abdominal wall area with incision and drainage and excisional debridement necrotic infected seroma including umbilicus (182 cm2) and surgical preparation vulva involving the mons pubis area with incision and drainage and excisional debridement necrotic infected seroma (52 cm). Postop op wound care was started with the VAC. Was treated perioperatively with Vancomycin. Operative cultures showed Staphylococcus simulans (Methicillin resistant), Actinomyces odontolyticus, and Prevotella melaninogenica. After discharge he was placed on Doxycycline and later on Flagyl. She was discharged from the hospital on 03/16/19. Over the ensuing 10 days, she developed increasing pain, and swelling, and redness, and surrounding fat necrosis with foul smelling drainage. She went to the ED. BUN/Creatinine were 24/1.10. Total Bilirubin was 0.30. AST was 25. ALT was 225. Alkaline Phosphatase was 258. CBC and Coags and Lactate are pending. She was started on Vancomycin and Zosyn. Will hold the VAC and start Dakin's dressing changes twice a day to help with the odor. PAST MEDICAL HISTORY Back problem (Acute) Bladder infection (Acute) Excessive weight loss (Acute) Gallstones (Acute) Intertrigo (Acute) Kidney stones (Acute) Soft tissue mass (Acute) Stomach ulcer (Acute) Vitamin deficiency (Acute) High blood pressure (Chronic) PAST SURGICAL HISTORY History of cholecystectomy (Acute) History of gastric bypass (Acute) History of incision and drainage (Acute) History of incision and drainage (Acute) History of nephrolithotomy with removal of calculi (Acute) History of thyroidectomy (Acute) Status post panniculectomy (Acute ~09/17/16) Surgical preparation vulva involving mons pubis with excisional debridement painful infected skin graft scar contour deformity and reconstruction with abdominal wall advancement skin flap (215 cm2) and complex secondary wound closure - 02/21/19 Surgical preparation abdominal wall area with incision and drainage and excisional debridement necrotic infected seroma including umbilicus (182 cm2) and surgical preparation vulva involving the mons pubis area with incision and drainage and excisional debridement necrotic infected seroma (52 cm) - 03/13/19. ALLERGIES methocarbamol Allergy (Verified 10/20/18 15:38) Chest tightness gabapentin Adverse Reaction (Verified 10/20/18 15:38) MADE ME WALK SIDEWAYS ketorolac tromethamine [From Toradol] Adverse Reaction (Verified 10/20/18 15:38) Upset Stomach NSAIDS (Non-Steroidal Anti-Inflamma Adverse Reaction (Verified 10/20/18 15:38) gastric bipass not supposed to take tramadol Adverse Reaction (Verified 10/20/18 15:38) Upset Stomach MEDICATIONS Amitriptyline HCl [Elavil] Ergocalciferol [Vitamin D] Etonogestrel [Nexplanon] Tamsulosin HCl [Flomax] Lisinopril [Zestril] Ondansetron [Zofran Odt] Cyanocobalamin [Vitamin B12] Hydrocodone/Acetaminophen [[place] 10-325 Tablet] Valium Dilaudid Doxycycline Flagyl FAMILY HISTORY Mother - Anxiety, Bleeding disorder, Depression, Hypertension, High cholesterol, Cancer Father - Diabetes, Hypertension Grandfather - Colon cancer, Diabetes, Heart disease SOCIAL HISTORY Smoking Status: Never smoker second hand exposure: Yes alcohol intake: current substance use type: does not use REVIEW OF SYSTEMS General-denies fever. Has some fatigue. Has had major weight loss since her gastric bypass procedure done a year and a half ago. She lost 180 pounds. Ear nose and throat-denies nasal congestion. Denies sore throat. Eyes-denies glaucoma. Denies cataracts. Endocrine-denies excessive thirst or urination. Skin-has an abdominal wall and vulval wound with fat necrosis and foul smelling drainage. She has lymphedema genitalia involving genitocrural areas up to the labia. Musculoskeletal-denies joint pain, joint stiffness, weakness of muscles and joints, neck pain, and arthritis. Neurologic-has headaches. Cardiovascular-denies chest pain. Has some fatigue. Denies shortness of breath with exertion. Psychiatric-denies anxiety. Denies depression. Respiratory-denies shortness of breath. Denies chronic cough. Gastrointestinal-denies nausea, vomiting, diarrhea, constipation. Denies abdominal bloating. Hematologic-denies abnormal bruising or bleeding. Genitourinary-denies hematuria and urinary frequency. PHYSICAL EXAMINATION General-well developed, well nourished, in no acute distress. HEENT-pupils equal round and reactive to light. Extraocular muscles intact. Throat is clear. Neck-supple and nontender. No cervical adenopathy. Lungs-clear to auscultation. Heart-regular rate and rhythm. Abdomen-soft and nondistended. There is a large central abdominal wall wound extending into the vulva involving the mons pubis The wound measures 12 x 13.5 x 5 cm. Surrounding redness and tenderness to palpation and fat necrosis at the edges. Significant induration and fat necrosis on the left side. Foul smelling drainage present as well. Extremities-full range of motion. No axillary adenopathy. No inguinal adenopathy. Radial pulses and dorsalis pedis pulses are palpable. Neuro-cranial nerves II through XII grossly intact. ASSESSMENT 1. Infected abdominal wall and vulval wound involving the mons pubis with foul smelling drainage suspicious of abscess. 2. Necrotizing soft tissue infection. 3. 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 4. 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 5. Elevated LFT's. PLAN Continue Vancomycin and Zosyn. Because of the odor, will hold the VAC and start Dakin's dressing changes twice a day. Will obtain wound cultures. She has elevated LFT's and will order a CT Abdomen and Pelvis. Will consult Hospitalist for medical management. If rapid improvement is not seen, will need further operative debridement involving the central abdominal wall and vulva involving the mons pubis. At the time of surgery, tissue will be sent to Pathology for analysis to rule out carcinoma and to Microbiology for culture. A positive culture may necessitate antibiotic modification. The indurated area on the left side is suspicious for an abscess. After wound stabilizes and odor improves, can consider the VAC again. Patient was informed of the risks and complications of the procedure including alternatives to surgery. These were discussed with the patient personally. Patient voices understanding and wishes to proceed. Patient voices understanding that the wound will be larger after the debridement.
--- NOTE | 2019-03-27 17:28 | CT_ITS ---
STUDY: CT ABDOMEN AND PELVIS WITH CONTRAST REASON FOR EXAM: Female, 34 years old. INFECTED ABDOMINAL WALL AND VULVAL WOUND, PANNICULECTOMY, GASTRIC BYPASS, GB, LITHOTRIPSY, 12- VULVA MONS PUBIS DEBRIDEMENT, 03-13 INCISION AND DRAINAGE NECROTIC SEROMA UMBILICUS, NOW PAIN SWELLING, DRAINAGE AND EDEMA RADIATION DOSAGE (If Supplied By Facility): CTDIvol = ( 16.51 ) mGy, DLP = ( 1522.33 ) mGycm TECHNIQUE: Transaxial images were obtained from the dome of the diaphragm to the symphysis pubis without oral contrast. IV 100mL Isovue-300 was administered. Sagittal and coronal images were reconstructed. Individualized dose optimization techniques were used for this CT. COMPARISON: None. FINDINGS: The visualized lung bases are unremarkable. The visualized portions of the heart are within normal limits. Normal liver. Gallbladder has been removed surgically. Normal spleen. Normal pancreas. Normal bilateral adrenal glands. Normal right kidney. Tiny nonobstructing left renal calculus. No evidence for hydronephrosis or mass. Postop changes status post gastric bypass.. Normal small intestine. Normal colon. The appendix is visualized and appears normal. Normal abdominal aorta. Normal inferior vena cava. Normal retroperitoneum. There are multicystic changes seen within both ovaries. Normal urinary bladder. Surgical changes status post debridement of wound in the periumbilical region. There is mild inflammatory change within the fat anterior and superior to the vulva. There is gas noted within the subcutaneous fat in the lower anterior abdominal and pelvic wall. Just to the right and above the umbilicus there is a small fluid-filled collection with air bubbles measuring approximately 2.5 x 6.2 cm which may represent residual abscess or infected hematoma. Lumbar spine demonstrates mild spondylosis. CT/Abdomen/Pelvis W IV Cont ONLY IMPRESSION: Postsurgical changes status post debridement of lower anterior pelvic wall wound. In the right supraumbilical subcutaneous fat there is a small fluid collection measuring possibly 2.5 x 6.3 cm with air bubbles possibly representing residual abscess or infected hematoma. Clinical correlation recommended Other findings as above Electronically Signed: Cm Ivey MD at 19:43 EST , Service support ,
[2019-03-27] MEDS: 0.9% Saline Lock 10 ML Syringe IV (17:39)
--- NOTE | 2019-03-27 18:18 | PCM.RX.CS ---
Consult Pharmacy has been consulted to manage selected antiobiotic: Vancomycin Type of Consult: New start Prior Doses of Antibiotics Received/Current Regimen: Medications Discontinued Medications Vancomycin HCl 1,500 mg/ (Sodium Chloride) 530 mls @ 250 mls/hr IV X1 ONE Stop: 03/27/19 16:37 Last Admin: 03/27/19 16:05 Dose: 250 mls/hr Documented by: Labs: Sodium 137 mmol/L (136-145) 03/27/19 14:53 Potassium 4.8 mmol/L (3.5-5.1) 03/27/19 14:53 Chloride 107 mmol/L (98-107) 03/27/19 14:53 Carbon Dioxide 20.0 mmol/L (21.0-32.0) L 03/27/19 14:53 Anion Gap 10 (5-15) 03/27/19 14:53 BUN 24 mg/dL (7-18) H 03/27/19 14:53 Creatinine 1.10 mg/dL (0.55-1.02) H 03/27/19 14:53 Est GFR (MDRD) Af Amer 74 mL/min (>60) 03/27/19 14:53 Est GFR (MDRD) Non-Af 61 mL/min (>60) 03/27/19 14:53 BUN/Creatinine Ratio 21.8 RATIO (10-20) H 03/27/19 14:53 Glucose 83 mg/dL (74-106) 03/27/19 14:53 Weight used for dosin kg Estimated Creatinine Clearance: 68 mL/min Goal Trough: 10-15 mcg/mL Pharmacy Plan for Drug Dosing: Per policy, vancomycin to continue with 750mg IV q12h with trough prior to the 4th dose. Patient was here a couple of weeks ago on 1750mg IV q12h with initial trough of 10.8 mcg/mL but SCr is significantly elevated at this time. If SCr improves to baseline, recommend to adjust to more appropriate dose, likely the same as previously ordered. Patient did not go home on vancomycin and has not been receiving vancomycin. Pharmacy Service will continue to monitor and adjust dosing as required. Follow-Up Labs: Trough Vancomycin - 03/29/19 @ 0530
--- NOTE | 2019-03-27 19:53 | CON.PCM_ITS ---
Reason for Consult Date of Consultation: 03/27/19 Reason for Consultation: Consult requested by Dr. Mendieta for medical mgmt. History of Present Illness: The patient is a 34 year old F whose had an extensive issues in regards to her abdomen for the past several years. In 2015, patient underwent a appendectomy for redundant tissue after dramatic weight loss after a bypass surgery. Patient had complications afterwards and has been seeing Dr. henderson for them since then. In 2017, patient underwent excision of 8 cm painful soft tissue mass in the pubic region with 20 cm of a complex closure. Then on 21 February 2019, patient underwent excisional debridement of painful infected skin graft scar in the mons pubis region. Reconstruction with abdominal wall advancement and skin flap with a complex secondary wound closure. On 13 March, patient underwent further incision and drainage with excisional debridement of necrotic infected seroma including the umbilicus. Surgical preparation of the vulva involving the mons pubis area with incision drainage and excisional debridement of necrotic infected seroma. Cultures have been showing from 08 March, staph epidermidis, actinomyces, and staph aureus, from , which show an actinomyces, Staphylococcus simulans and Prevotella. When she was discharged on the , patient was discharged with doxycycline. Her abdomen has just increased in pain and is been malodorous. Sent to the wound care center and then directed to direct admission for the hospital. Patient was seen by Dr. henderson, who is planning on doing further debridements on the . The hospital service was asked to assist in medical management during the patient's hospitalization. 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) Lymphedema of genitalia (Chronic) Intertrigo (Chronic) abdominal wall skin crease intertrigo Localized adiposity (Chronic) 8 cm painful soft tissue mass pubic area Excessive body weight loss (Chronic) after gastric bypass procedure HTN (hypertension) (Chronic) Nephrolithiasis (Chronic) Ovarian cyst (Chronic) Medical History: Medical History (Last Reviewed 03/27/19 @ 19:57 by Salvatore Reyes DO) Back problem M53.9 Bladder infection N30.90 Excessive weight loss R63.4 EXCESSIVE WEIGHT LOSS AFTER GASTRIC BYPASS PROCEDURE Gallstones K80.20 Intertrigo L30.4 ABDOMINAL WALL SKIN CREASE INTERTRIGO Kidney stones N20.0 Soft tissue mass M79.9 PAINFUL SOFT TISSUE MASS PUBIC AREA Stomach ulcer K25.9 Vitamin deficiency E56.9 High blood pressure I10 Allergies methocarbamol Allergy (Verified 03/27/19 12:33) Chest tightness gabapentin Adverse Reaction (Verified 03/27/19 14:39) abnormal gait ketorolac tromethamine [From Toradol] Adverse Reaction (Verified 03/27/19 12:33) Upset Stomach NSAIDS (Non-Steroidal Anti-Inflamma Adverse Reaction (Verified 03/27/19 12:33) gastric bipass not supposed to take tramadol Adverse Reaction (Verified 03/27/19 12:33) Upset Stomach Home Medications: Ambulatory Orders Medication Instructions Recorded Amitriptyline HCl [Elavil] 50 mg PO QHS PRN 04/30/17 Ergocalciferol [Vitamin D] 50,000 unit PO TUTH 04/30/17 Etonogestrel [Nexplanon] 68 mg SQ UD 04/30/17 Tamsulosin HCl [Flomax] 0.4 mg PO DAILY PRN 04/30/17 Lisinopril [Zestril] 40 mg PO BID 05/30/17 Cyanocobalamin [Vitamin B12] 1,000 mcg IM Q30D 07/06/17 Ondansetron [Zofran Odt] 4 mg PO 4X/DAY PRN PRN #30 tab 03/16/19 diazepam 5 mg tablet 5 mg PO 4X/DAY PRN #30 tab 03/24/19 hydromorphone 2 mg tablet 2 mg PO Q4H PRN 7 Days #40 tab 03/24/19 Doxycycline [Vibramycin] 100 mg PO BID 03/27/19 Metronidazole 500 mg PO TID 03/27/19 Surgical History: Surgical History (Last Reviewed 03/27/19 @ 19:57 by Salvatore Reyes DO) History of cholecystectomy Z98.890, Z90.49 History of gastric bypass Z98.84 LAPAROSCOPIC MARY-EN-Y PROCEDURE AT [facility] 2016 History of incision and drainage Z98.890 INCISION AND DRAINAGE POST OP HEMATOMA ABDOMINAL WALL 09/17/16 History of incision and drainage Z98.890 INCISION AND DRAINAGE INFECTED POST OP ABDOMINAL WALL SEROMA 10/20/2016 History of nephrolithotomy with removal of calculi Z98.890, Z87.442 2 STONES REMOVED History of thyroidectomy E89.0 LEFT THYROID REMOVED Status post panniculectomy Onset Date: ~09/17/16 Z98.890 Surgical History: cholecystectomy, gastric bypass, - - gastric bypass 04/18/15,thyroid nodular surgery, I+D abdominal wall and pelvic mass 05/03/17, Smoking Status: Never smoker Tobacco Use: Non-smoker - *Family History Maternal Family History: Family History (Last Reviewed 03/27/19 @ 19:57 by Salvatore Reyes DO) Mother Anxiety Bleeding disorder Depression Hypertension High cholesterol Cancer Father Diabetes Hypertension Grandfather Colon cancer Diabetes Heart disease History Items: Hypertension Paternal Family History: Family History (Last Reviewed 03/27/19 @ 19:57 by Salvatore Reyes DO) Mother Anxiety Bleeding disorder Depression Hypertension High cholesterol Cancer Father Diabetes Hypertension Grandfather Colon cancer Diabetes Heart disease History Items: Hypertension Review of Systems Constitutional: Reports: Chills, Malaise. Denies: Anorexia, Weakness Eyes: Denies: Blurred vision, Double vision HEENT: Denies: Head Aches, Sinus Congestion, Sinus Drainage Cardiovascular: Denies: Chest Pain, Palpitations Respiratory: Denies: Cough, Shortness of breath at rest, Sputum production Gastrointestinal: Reports: Abdominal Pain, Nausea. Denies: Vomiting Genitourinary: Denies: Dysuria Musculoskeletal: Denies: Joint Pain, Joint Tenderness Skin: Reports: Wounds - Wound with foul odor. Neurological: Denies: Numbness, Tingling, Focal weakness Psychiatric: Denies: Anxiety, Depression, Homicidal Ideations, Suicidal Ideations Hematologic/ Lymphatic: Denies: Easy Bruising, Easy Bleeding Comment: All review systems are otherwise negative except for as mentioned above and in HPI. Patient Problems: Active and Suspected Problems (Last Reviewed 03/14/19 @ 18:02 by Gigi Mendieta MD) Local infection of the skin and subcutaneous tissue, unspecified (Acute) Skin necrosis (Acute) Nonhealing surgical wound (Acute) umbilical wound Open wound anterior abdominal wall (Acute) - Physical Exam Vitals/I&O's: Vital Signs Temp Pulse Resp BP Pulse Ox 37.2 C 107 H 20 H 144/80 H 99 03/27/19 15:42 03/27/19 15:42 03/27/19 15:42 03/27/19 15:42 03/27/19 15:42 Oxygen Delivery Method Room Air Weight: 96.2 kg Body Mass Index (BMI) 34.2 Intake and Output for Last 24 Hours 03/25/19 03/26/19 03/27/19 23:59 23:59 23:59 Intake Total 100 / 100 Balance 100 / 100 General: Alert, Cooperative, No apparent distress HEENT: Atraumatic, Normocephalic Oral: Moist Mucosa, No Gingival or Mucosal Lesions/ Ulcerations Neck: No Nodes, Trachea Midline Lungs: Clear to auscultation, Normal air movement, No rhonchi, No wheeze, No rales Cardiovascular: Regular Rhythm, Normal S1, Normal S2, No murmurs, Tachycardic Abdomen: Bowel Sounds Present, Soft, Non-Distended, No Hepato-splenomegaly, Tender - Around the abdominal incision Extremities: No edema, No Calf Tenderness Skin: - - Large abdominal wound with necrotic fat. Slight rim of erythema. Malodorous. Musculoskeletal: No Tenderness to Palpation of Joints or Extremities, No Muscle Wasting Neurological: Deep Tendon Reflexes 2+/4 and Symmetrical, - - No clonus Psych/Mental Status: Normal Affect, Appropriate Laboratory Results 03/27/19 14:53: Sodium 137, Potassium 4.8, Chloride 107, Carbon Dioxide 20.0 L, Anion Gap 10, BUN 24 H, Creatinine 1.10 H, Estim Creat Clear Calc 68.10, Est GFR (MDRD) Af Amer 74, Est GFR (MDRD) Non-Af 61, BUN/Creatinine Ratio 21.8 H, Glucose 83, Calcium 9.1, Total Bilirubin 0.30, AST 25, ALT 225 H, Alkaline Phosphatase 258 H, Total Protein 6.8, Albumin 2.6 L, Globulin 4.2, Albumin/Globulin Ratio 0.6 L Current Medications Amitriptyline HCl (Elavil) 50 mg PO QHS PRN PRN PRN Reason: SLEEP Cyanocobalamin (Vitamin B12) 1,000 mcg IM Q30D [facility] Diazepam (Valium) 5 mg PO 4X/DAY PRN PRN Reason: spasm Docusate Sodium (Colace) 100 mg PO BID [facility] Ergocalciferol (Vitamin D) 50,000 unit PO TuTh@1000 [facility] Fentanyl (Duragesic Patch) 25 mcg TRANSDERM. Q3D@1000 [facility] Hydromorphone HCl (Dilaudid Inj) 1 mg IV Q4H PRN PRN PRN Reason: Pain Score 6-10/10 Last Admin: 03/27/19 17:39 Dose: 1 mg Documented by: Hydromorphone HCl (Dilaudid Tablet) 4 mg PO Q4H PRN PRN PRN Reason: Pain Score 4-5/10 Lactated Ringer's () 1,000 mls @ 75 mls/hr IV .[id number] [facility] Piperacillin Sod/Tazobactam (Sod 3.375 gm/ Sodium Chloride) 50 mls @ 12.5 mls/hr IV Q8 [facility] Vancomycin IV Pharmacy to Dose (1 ea/ Sodium Chloride) 500 mls @ 250 mls/hr IV X1 PRN; Protocol PRN Reason: Rx to Dose Vancomycin HCl 750 mg/ Sodium (Chloride) 265 mls @ 250 mls/hr IV Q12H [facility] Lisinopril (Zestril) 40 mg PO BID [facility] Nutritional Formula (Collins - [place] Flavor) 1 packet PO BIDCM [facility] Nutritional Formula (Lactose Free) (Ensure Enlive) 120 ml PO 4X/DAY [facility] Ondansetron HCl (Zofran Odt) 4 mg PO 4X/DAY PRN PRN PRN Reason: NAUSEA Promethazine HCl (Phenergan Tablet) 25 mg PO Q4H PRN PRN PRN Reason: NAUSEA/VOMITING Sodium Chloride () 10 - 40 ml IV UD PRN PRN Reason: SALINE FLUSH Last Admin: 03/27/19 17:39 Dose: 10 ml Documented by: Sodium Hypochlorite (Dakins Solution 0.25% (1/2 Strength)) 1 applic TOPICAL BID [facility]; Protocol Tamsulosin HCl (Flomax) 0.4 mg PO DAILY PRN PRN Reason: kidney stones Assessment/Plan All Active Problems (Last Reviewed 03/14/19 @ 18:02 by Gigi Mendieta MD) Local infection of the skin and subcutaneous tissue, unspecified (Acute) Skin necrosis (Acute) Methicillin resistant Staphylococcus epidermidis infection (Acute) Postprocedural seroma of skin and subcutaneous tissue following other procedure (Acute) Nonhealing surgical wound (Acute) Open wound of vulva with complication (Acute) Infection following a procedure, initial encounter (Acute) Hematoma, vulva (Acute) Postoperative hematoma of subcutaneous tissue following dermatologic procedure (Acute) Open wound anterior abdominal wall (Acute) ERIKA (acute kidney injury) (Acute) Cellulitis of abdominal wall (Acute) Cellulitis of pubic region (Acute) Uncontrolled hypertension (Acute) 1. Anemia * Is likely anemia of chronic disease due to the patient's large abdominal wound with much for resources being step spent healing that * Patient has no periods due to etonogestrel and has not had a menstrual period since November so that would not be the cause of her anemia * Will check iron, iron binding capacity, ferritin, B12, folate and TSH * Monitor hemoglobin for now, currently at 8.2 and does not warrant transfusions at this time. * Goal to Keep hemoglobin greater than or equal to 7 2. Transaminitis * Previously had been normal * May be iatrogenic from doxycycline as it can cause hepatotoxicity * Patient is no longer on doxycycline. So the plan will be to monitor. * Consider imaging if her LFTs do get worse. 3. Infected abdominal wound * Necrotic tissue * Plan is for further debridement on the seventh * Agree with Pipracil and/tazobactam and vancomycin * Previously has been polymicrobial * Consider infectious disease consultation based on additional results from cultures * Patient on oral as well as IV bone and fentanyl. This is managed by the primary service 4. Hypertension * Fair control at this time * Continue with lisinopril 5. VTE proph: moderate risk. SCDs for now. Thank you for the consult. The hospitalist service will continue to follow along during the patient's hospitalization. Code Visit Inpatient E&M: 81477 Init Hosp L3
[2019-03-27 21:14] VITALS: BP 131/63; PULSE 97; RESP 20; TEMP 37.3; O2SAT 98
[2019-03-27] MEDS: 0.9% Normal Saline 1,000 ML 75 ML IV (21:28)
[2019-03-27] MEDS: Lisinopril 40 MG Tablet PO (21:47)
[2019-03-27] MEDS: DAKIN'S SOL HALF STRENGTH (=0.25%) 1 APPLIC TOPICAL (23:15)
[2019-03-27 23:34] LABS: Absolute Lymphocyte Count 1.17 X10^3/uL (0.83-4.51); Absolute Neutrophil Count 4.8 X10^3/uL (2.0-7.7); Basophil# 0.05 X10^3/uL; Basophil% 0.7 % (0-1); Eosinophil# 0.18 X10^3/uL; Eosinophils% 2.5 % (0-5); Hematocrit 28.6 % (37-47); Hemoglobin 8.6 g/dL (12.0-15.0); Lymphocyte # 1.17 X10^3/ul (4.0); Lymphocyte % 16.3 % (19-41); Mean Corp Hgb Conc 30.1 g/dL (32-36); Mean Corpuscular Hgb 21.9 pg (27.0-32.0); Mean Platelet Vol. 9.9 fl (6.2-12.0); Monocyte# 0.95 X10^3/uL; Monocyte% 13.2 % (0-10); NRBC Flagged by Analyzer 0 % (0-5); Neutrophil # 4.83 X10^3/uL (2.7-7.7); POSITIVE MORPHOLOGY YES; Platelet Count 596 K/mm3 (150-450); RBC Distribution Width CV 24.1 % (11.6-14.6); RBC Distribution Width SD 61.4 fl (35.1-43.9); Red Blood Count 3.92 M/mm3 (4.2-5.4); White Blood Count 7.2 K/mm3 (4.4-11.0)
[2019-03-27 23:35] VITALS: PULSE 96
[2019-03-27 23:40] LABS: International Normalized Ratio 1.2; Prothrombin Time (Protime)PT. 15.1 SECONDS (11.7-14.9)
[2019-03-27 23:41] LABS: Partial Thromboplast Time 35.4 Seconds (24.1-36.2)
[2019-03-27 23:48] LABS: Differential Indicated SCAN CRITERIA MET
[2019-03-28] VITALS (17 sets, daily range): BP systolic 110–145; BP diastolic 52–80; PULSE 81–96; RESP 16; TEMP 36.6–37.6; O2SAT 95–100; BMI 34.0
[2019-03-28 00:06] LABS: Lactic Acid 0.6 mmol/L (0.4-1.9)
[2019-03-28 00:46] LABS: Differential Comment SCANNED
[2019-03-28 00:47] LABS: Hypochromasia 2+; Macrocytosis 1+; Microcytosis 3+; Platelet Estimate MOD INC (ADEQ)
[2019-03-28] MEDS: HYDROmorphone 1 MG/ML Syringe IV ×5 (01:42→21:58)
[2019-03-28] MEDS: 0.9% Saline Lock 10 ML Syringe IV ×4 (01:45→22:14)
--- NOTE | 2019-03-28 01:51 | NURSING ---
Pt does not want SCDS on at this time until after she gets her CHG bath for surgery. Wants to wait until she need to get up to void before doing anything.
[2019-03-28 02:36] LABS: Internal QC Validated? YES +Cl - CLEAR BKGD; Pregnancy, Urine Negative Negative
--- NOTE | 2019-03-28 05:00 | EKG12_ITS ---
Test Reason : MORNING EKG Blood Pressure : / mmHG Vent. Rate : 089 BPM Atrial Rate : 089 BPM P-R Int : 128 ms QRS Dur : 094 ms QT Int : 366 ms P-R-T Axes : 000 030 -27 degrees QTc Int : 445 ms Normal sinus rhythm Inferior infarct , age undetermined , cannot be excluded Abnormal ECG Confirmed by PONCHO BROWN, BLANCA ([id number]), chemists CHE EVANS ([id number]) on 03/29/2019 11:54:21 AM Referred By: Gigi Mendieta Confirmed By:BLANCA ISAAC MD
[2019-03-28 06:21] LABS: Absolute Lymphocyte Count 1.03 X10^3/uL (0.83-4.51); Absolute Neutrophil Count 3.8 X10^3/uL (2.0-7.7); Basophil# 0.05 X10^3/uL; Basophil% 0.8 % (0-1); Eosinophil# 0.14 X10^3/uL; Eosinophils% 2.3 % (0-5); Hematocrit 25.9 % (37-47); Hemoglobin 7.7 g/dL (12.0-15.0); Lymphocyte # 1.03 X10^3/ul (4.0); Lymphocyte % 17.2 % (19-41); Mean Corp Hgb Conc 29.7 g/dL (32-36); Mean Corpuscular Hgb 21.9 pg (27.0-32.0); Mean Corpuscular Volume 73.6 fL (81-99); Monocyte# 0.96 X10^3/uL; NRBC Flagged by Analyzer 0 % (0-5); Neutrophil % 63.4 % (47-70); POSITIVE MORPHOLOGY YES; Platelet Count 601 K/mm3 (150-450); RBC Distribution Width CV 24.1 % (11.6-14.6); RBC Distribution Width SD 61.8 fl (35.1-43.9); Red Blood Count 3.52 M/mm3 (4.2-5.4)
[2019-03-28 06:41] LABS: ALB/GLOB Ratio 0.5 RATIO (0.9-2.4); AST(SGOT) 12 U/L (15-37); Alanine Aminotransfer ALT/SGPT 133 U/L (13-56); Alkaline Phosphatase 181 U/L (45-117); Anion Gap 6 (5-15); BUN 14 mg/dL (7-18); BUN/Creat Ratio 16.9 RATIO (10-20); Calcium,Total 8.1 mg/dL (8.5-10.1); Chloride 106 mmol/L (98-107); Creatinine, Serum 0.83 mg/dL (0.55-1.02); EST Glomerular Filtration Rate 84 mL/min (>60); Est Glom Filt Rate - Afr Amer 102 mL/min (>60); Estimated Creatinine Clearance 90.25 ml/min; Ferritin 142 ng/mL (8-252); Globulin 4.1 g/dL (2.2-4.2); Glucose 87 mg/dL (74-106); Iron 11 ug/dL (50-170); Iron Binding Capacity,Total 240 ug/dL (250-450); PERCENT IRON SATURATION 4.6 % (15.0-55.0); Potassium 3.9 mmol/L (3.5-5.1); Prealbumin 9.3 mg/dL (20.0-40.0); Protein, Total 6.1 g/dL (6.4-8.2); Sodium Level 136 mmol/L (136-145); Thyroid Stim Hormone (TSH) 1.12 uIU/mL (0.358-3.74)
[2019-03-28 06:50] LABS: Differential Indicated SCAN CRITERIA MET
[2019-03-28 07:04] LABS: Differential Comment SCANNED; Hypochromasia 3+
[2019-03-28 07:05] LABS: Microcytosis 2+; Platelet Estimate MOD INC (ADEQ)
--- NOTE | 2019-03-28 07:30 | TISS_PTH ---
PATIENT: ISIDORO PENG LOC: MS3 U#:[id number] AGE/SX: 34/F ROOM: MS314 RE03/27/[address]: Dr. Gigi Mendieta MD : 1985 BED: 1 DIS: 03/30/2019 SPEC #: [id number] RECD: 03/28/19 15:04 STATUS: RAFAELA CARMELA #: [id number] ANGELA: 03/28/19 07:[address]: Gigi Mendieta DEPT: SURGICAL PATHOLOGY RECD BY: Comfort Herrera ENTERED: 03/29/19 10:40 SP TYPE: Tissue Bx [facility] DR: MD Saeid Amezcua Dr., MD Dr. Frank A Cebul III, MD Dr. Nicholas F Kotsonis, MD Tissues: Abdominal wall, NOS Procedures: Surgery Specimen Level IV HEADER OPERATION: Incision, drainage necrotic soft tissue abdominal wall wound PRE-OP DIAGNOSIS: Infected abdominal wall and vulva wound involving mons pubis, necrotizing soft tissue infection TISSUE SUBMITTED: Soft tissue abdominal wall MICROSCOPIC DIAGNOSIS Soft tissue abdominal wall: Pieces of skin with underlying fibroadipose tissue with acute and chronic inflammation, granulation tissue reaction and fat necrosis. MORENA:lucinda 03/30/19 MICROSCOPIC DESCRIPTION Slides are reviewed. GROSS DESCRIPTION Received in fixative is one container labeled with the patient's name and designated soft tissue abdominal wall. The specimen consists of approximately eight pieces of motley fibrofatty tissue ranging in size from 1.5 to 28.5 cm. The larger fragments contain grossly unremarkable skin. The underlying soft tissue is rogel-dark motley in color. Serial sections do not reveal mass lesions. News Correspondent sections are submitted in two cassettes. / AM:lucinda 03/29/19 TC:2 CPT: 18731
--- NOTE | 2019-03-28 09:12 | PN_ITS ---
Patient Problems: Active and Suspected Problems (Last Reviewed 03/27/19 @ 19:57 by Salvatore Reyes DO) Nonhealing surgical wound (Acute) umbilical wound Subjective: Chief complaint: Follow-up after consultation for pre-and postoperative medical management. Patient seen and examined. No acute events overnight. She complained of low abdominal pain, increasing upon standing or coughing. She denied fever or chills. She denied chest pain or shortness of breath. She denies dizziness or lightheadedness. Her vital signs are stable. - Physical Exam Vitals/I&O's: Vital Signs Temp Pulse Resp BP Pulse Ox 98.5 F 85 16 114/58 L 100 03/28/19 08:09 03/28/19 08:09 03/28/19 08:09 03/28/19 08:09 03/28/19 08:09 Oxygen Delivery Method Room Air Weight: 212 lb 1.355 oz Body Mass Index (BMI) 34.2 Intake and Output for Last 24 Hours 03/26/19 03/27/19 03/28/19 23:59 23:59 23:59 Intake Total 1630 / 1630 912.5 / 912.5 Balance 1630 / 1630 912.5 / 912.5 General: Alert, Oriented x3, Cooperative, No apparent distress HEENT: Atraumatic, PERRLA, EOMI, Normocephalic Oral: Moist Mucosa, No Gingival or Mucosal Lesions/ Ulcerations Neck: Supple, No JVD, Negative Carotid Bruits, Trachea Midline, Thyroid Normal Size and Texture Lungs: Clear to auscultation, Normal air movement, No rhonchi, No wheeze, No rales Cardiovascular: Regular rate, Regular Rhythm, Normal S1, Normal S2, PMI Normal Abdomen: Bowel Sounds Present, Soft, Non-Distended, No Hepato-splenomegaly, Obese, - - Lower abdominal tenderness. Extremities: No clubbing, No cyanosis, No edema Skin: No rashes, Ulcer/ Wound - Lower abdominal wall wound, dressed. Lymphatic: No Cervical, Supraclavicular, or Inguinal Adenopathy Neurological: Cranial nerves II-XII grossly intact, Motor Exam 5/5 strength throughout Psych/Mental Status: Normal Affect, Appropriate, Alert and oriented to time, place, person, mood and affect Laboratory Results 03/27/19 14:53: Sodium 137, Potassium 4.8, Chloride 107, Carbon Dioxide 20.0 L, Anion Gap 10, BUN 24 H, Creatinine 1.10 H, Estim Creat Clear Calc 68.10, Est GFR (MDRD) Af Amer 74, Est GFR (MDRD) Non-Af 61, BUN/Creatinine Ratio 21.8 H, Glucose 83, Calcium 9.1, Total Bilirubin 0.30, AST 25, ALT 225 H, Alkaline Phosphatase 258 H, Total Protein 6.8, Albumin 2.6 L, Globulin 4.2, Albumin/Globulin Ratio 0.6 L 03/27/19 23:20: WBC 7.2, RBC 3.92 L, Hgb 8.6 L, Hct 28.6 L, MCV 73.0 L, MCH 21.9 L, MCHC 30.1 L, RDW Std Deviation 61.4 H, RDW Coeff of Andrez 24.1 H, Plt Count 596 H, MPV 9.9, Immature Gran % (Auto) 0.300, Neut % (Auto) 67.0, Lymph % (Auto) 16.3 L, Cannon % (Auto) 13.2 H, Eos % (Auto) 2.5, Baso % (Auto) 0.7, Absolute Neuts (auto) 4.8, Absolute Lymphs (auto) 1.17, Nucleated RBC % 0, Differential Comment SCANNED, Platelet Estimate MOD INC, Hypochromasia 2+, Microcytosis 3+, Macrocytosis 1+ 03/27/19 23:20: PT 15.1 H, INR 1.2, APTT 35.4 03/27/19 23:20: Lactic Acid 0.6 03/28/19 02:15: Urine Test Negative 03/28/19 05:24: WBC 6.0, RBC 3.52 L, Hgb 7.7 L, Hct 25.9 L, MCV 73.6 L, MCH 21.9 L, MCHC 29.7 L, RDW Std Deviation 61.8 H, RDW Coeff of Andrez 24.1 H, Plt Count 601 H, MPV 10.0, Immature Gran % (Auto) 0.300, Neut % (Auto) 63.4, Lymph % (Auto) 17.2 L, Cannon % (Auto) 16.0 H, Eos % (Auto) 2.3, Baso % (Auto) 0.8, Absolute Neuts (auto) 3.8, Absolute Lymphs (auto) 1.03, Nucleated RBC % 0, Differential Comment SCANNED, Platelet Estimate MOD INC, Hypochromasia 3+, Microcytosis 2+ 03/28/19 05:24: Sodium 136, Potassium 3.9, Chloride 106, Carbon Dioxide 24.0, Anion Gap 6, BUN 14, Creatinine 0.83, Estim Creat Clear Calc 90.25, Est GFR (MDRD) Af Amer 102, Est GFR (MDRD) Non-Af 84, BUN/Creatinine Ratio 16.9, Glucose 87, Calcium 8.1 L, Iron 11 L, TIBC 240 L, Iron Saturation 4.6 L, Ferritin 142, Total Bilirubin 0.40, AST 12 L, ALT 133 H, Alkaline Phosphatase 181 H, Total Protein 6.1 L, Albumin 2.0 L, Globulin 4.1, Albumin/Globulin Ratio 0.5 L, Prealbumin 9.3 L, Folate 13.60, TSH 1.12 03/28/19 05:24: Vitamin B12 Pending, Vitamin D 25-Hydroxy Pending Current Medications Amitriptyline HCl (Elavil) 50 mg PO QHS PRN PRN PRN Reason: SLEEP Cyanocobalamin (Vitamin B12) 1,000 mcg IM Q30D [facility] Diazepam (Valium) 5 mg PO 4X/DAY PRN PRN Reason: spasm Docusate Sodium (Colace) 100 mg PO BID [facility] Last Admin: 03/27/19 21:48 Dose: Not Given Documented by: Ergocalciferol (Vitamin D) 50,000 unit PO TuTh@1000 [facility] Fentanyl (Duragesic Patch) 25 mcg TRANSDERM. Q3D@1000 [facility] Hydromorphone HCl (Dilaudid Inj) 1 mg IV Q4H PRN PRN PRN Reason: Pain Score 6-10/10 Last Admin: 03/28/19 08:54 Dose: 1 mg Documented by: Hydromorphone HCl (Dilaudid Tablet) 4 mg PO Q4H PRN PRN PRN Reason: Pain Score 4-5/10 Piperacillin Sod/Tazobactam (Sod 3.375 gm/ Sodium Chloride) 50 mls @ 12.5 mls/hr IV Q8 [facility] Last Admin: 03/28/19 06:40 Dose: 12.5 mls/hr Documented by: Vancomycin IV Pharmacy to Dose (1 ea/ Sodium Chloride) 500 mls @ 250 mls/hr IV X1 PRN; Protocol PRN Reason: Rx to Dose Vancomycin HCl 750 mg/ Sodium (Chloride) 265 mls @ 250 mls/hr IV Q12H [facility] Last Infusion: 03/28/19 06:42 Dose: Infused Documented by: Sodium Chloride () 1,000 mls @ 75 mls/hr IV .[id number] [facility] Last Infusion: 03/28/19 06:43 Dose: 75 mls/hr Documented by: Sodium Chloride () 250 mls @ 15 mls/hr IV .[id number] PRN PRN Reason: Saline Flush Sodium Chloride () 250 mls @ 15 mls/hr IV .[id number] PRN PRN Reason: Additional IVPB Infusion Lisinopril (Zestril) 40 mg PO BID [facility] Last Admin: 03/27/19 21:47 Dose: 40 mg Documented by: Nutritional Formula (Collins - [place] Flavor) [facility] Last Admin: 03/28/19 08:18 Dose: Not Given Documented by: Nutritional Formula (Lactose Free) (Ensure Enlive) 120 ml PO 4X/DAY [facility] Last Admin: 03/27/19 21:48 Dose: Not Given Documented by: Ondansetron HCl (Zofran Odt) 4 mg PO 4X/DAY PRN PRN PRN Reason: NAUSEA Promethazine HCl (Phenergan Tablet) 25 mg PO Q4H PRN PRN PRN Reason: NAUSEA/VOMITING Sodium Chloride () 10 - 40 ml IV UD PRN PRN Reason: SALINE FLUSH Last Admin: 03/28/19 01:45 Dose: 10 ml Documented by: Sodium Hypochlorite (Dakins Solution 0.25% (1/2 Strength)) 1 applic TOPICAL BID [facility]; Protocol Last Admin: 03/27/19 23:15 Dose: 1 dose Documented by: Tamsulosin HCl (Flomax) 0.4 mg PO DAILY PRN PRN Reason: kidney stones Medical Necessity - Tobacco Use Smoking Status: Never smoker Tobacco Use: Non-smoker Assessment/Plan All Active Problems (Last Reviewed 03/27/19 @ 19:57 by Salvatore Reyes DO) Elevated LFTs (Acute) Abdominal wall abscess at site of surgical wound (Acute) Necrotizing soft tissue infection (Acute) Local infection of the skin and subcutaneous tissue, unspecified (Acute) Skin necrosis (Acute) Methicillin resistant Staphylococcus epidermidis infection (Acute) Nonhealing surgical wound (Acute) This is a 34 years old female patient admitted for recurrent lower abdominal wall wound infection/abscess/nonhealing wound/necrotizing soft tissue infection/skin necrosis and I am seeing this patient for preoperative and postoperative medical management. #1 recurrent lower abdominal wall surgical wound infection/abscess/nonhealing wound/necrotizing soft tissue infection/skin necrosis: She is on IV vancomycin and Zosyn. Her vital signs are stable, afebrile, no leukocytosis. In the past, wound culture revealed MRSA. Patient is having significant lower abdominal pain. She is on IV Dilaudid PRN as well as fentanyl patch. Plastic surgery is managing. Plan for surgery today. #2 acute on chronic iron deficiency anemia: Baseline hemoglobin is been around 8 to 10 g/dL. Patient denied any bleeding from body orifices. She is asymptomatic. Today's hemoglobin is 7.7 g/dL. Plan: Transfuse 1 unit of packed RBCs, will give 1 dose of IV iron sucrose, repeat CBC tomorrow morning. #3 elevated LFTs: Mainly ALT and alkaline phosphatase are elevated. AST and bilirubin are normal. Patient denied any right upper quadrant abdominal pain. She had a history of cholecystectomy. Liver enzymes and alkaline phosphatase are trending down. She has been on doxycycline which can cause hepatic toxicity. Plan to monitor. #4 hypertension: Blood pressure stable, continue lisinopril. #5 history of nephrolithiasis: Stable, kidney function is normal. #6 DVT prophylaxis: SCDs. This note was generated with [employer] dictation software. It may contain incorrect words, spelling, and punctuation that were not noted in checking the note before signing. Code Visit Inpatient E&M: 78014 Subs Hosp L2
[2019-03-28 09:15] LABS: Vitamin B12 296 pg/mL (211-911); Vitamin D,25 Hydroxy 23.8 ng/mL (29.95-100.01)
--- NOTE | 2019-03-28 09:51 | NURSING ---
wound photo: abdomen
[2019-03-28] MEDS: fentaNYL 25 MCG Patch TRANSDERM. (10:21)
--- NOTE | 2019-03-28 12:20 | CASEMGMT ---
RICARDO BECKFORD Readmission Note Previous Admission: 03/15/19-03/16/19 Diagnosis: infected seroma abd wall; I&D DC [facility]position[facility]. SEE RICARDO BECKFORD assessment for details. Current Admission Presentation: [facility]- called to agency to notify of patient's admission. They can resume care on dc. PH: [phone] FX: [phone] PCP: Dr. Bethel Jauregui [facility] Specialists: Dr. Gayatri OCASIO PLAN: home on dc with resumption of home health. Aye CANASN RN ACM
--- NOTE | 2019-03-28 13:03 | CASEMGMT ---
RN CM Readmission Note Previous Admission: 03/15/19-03/16/19 Diagnosis: infected seroma abd wall; I&D DC Disposition: home with [facility].SN for wound vac care SEE RN SHAKEEL assessment for details. Current Admission Presentation: Increased drainage odor from abd wound, L side area suspicious for abscess. Start Dakins dressing. Pt had wound vac Home Health: [facility]- called to agency to notify of patient's admission. They can resume care on dc. PH: [phone] FX: [phone] PCP: Dr. Bethel Jauregui [facility] Specialists: Dr. Gayatri OCASIO PLAN: home on dc with resumption of home health. Aye GIFFORD RN ACM
--- NOTE | 2019-03-28 14:36 | OP.PCM_ITS ---
Report of Operation Date of Procedure: 03/28/19 Pre-Operative Diagnosis: 1. Infected abdominal wall and vulval wound involving the mons pubis with foul smelling drainage suspicious of abscess. 2. Necrotizing soft tissue infection. 3. 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 4. 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 Post-Operative Diagnosis: Same. Surgery/Procedure Performed:: Surgical preparation lower anterior abdominal wall with incision and drainage and excisional debridement skin, subcutaneous tissue, and fascia necrotizing soft tissue infection abscess (660 cm2). Description of Surgical Findings:: Patient had surgery on 02/21/19 where she underwent surgical preparation vulva involving mons pubis with excisional debridement painful infected skin graft scar contour deformity and reconstruction with abdominal wall advancement skin flap (215 cm2) and complex secondary wound closure. Postoperatively she developed some necrosis in the umbilical area with subsequent drainage. Also a portion of the distal skin flap in the pubic area developed some compromise with skin necrosis. After local debridement in the office, wound care was started with Dakin's solution dressing changes. Wound cultures were done and she was started on Levaquin. The wound cultures were positive for MRSE and Staphylococcus aureus. There was persistent drainage from the wounds and wound care has been difficult at home. She was taken to surgery on 03/13/19 where she underwent surgical preparation abdominal wall area with incision and drainage and excisional debridement necrotic infected seroma including umbilicus (182 cm2) and surgical preparation vulva involving the mons pubis area with incision and drainage and excisional debridement necrotic infected seroma (52 cm). Postop op wound care was started with the VAC. Was treated perioperatively with Vancomycin. Operative cultures showed Staphylococcus simulans (Methicillin resistant), Actinomyces odontolyticus, and Prevotella melaninogenica. After discharge he was placed on Doxycycline and later on Flagyl. She was discharged from the hospital on 03/16/19. Over the ensuing 10 days, she developed increasing pain, and swelling, and redness, and surrounding fat necrosis with foul smelling drainage. She went to the ED. BUN/Creatinine were 24/1.10. Total Bilirubin was 0.30. AST was 25. ALT was 225. Alkaline Phosphatase was 258. CBC and Coags and Lactate are pending. She was started on Vancomycin and Zosyn. Will hold the VAC and start Dakin's dressing changes twice a day to help with the odor. Patient was informed of the risks and complications of the procedure including alternatives to surgery. These were discussed with the patient personally. Patient voices understanding and wishes to proceed. Size of defect lower anterior abdominal wall and vulval area involving mons pubis - 30 x 22 x 5 cm. horologist apprentice: None Type of Anesthesia:: General Drains: None. Estimated Blood Loss (mL): 550 ml. Description of Procedure: Patient was taken to OR in supine position and was placed under general anesthesia. The abdominal wall and vulva involving mons pubis areas were prepped and draped in the usual fashion. SCD's were placed for DVT prophylaxis. Perioperative antibiotics were given intravenously. Using xylocaine with epinephrine, the infected wounds and necrotic areas were infiltrated. After waiting 5 minutes for the anesthetic to take effect, I proceeded with incision a nd drainage in the abdominal wall area around the previous wound because of tissue necrosis and induration. Some pus was seen and drained. A lot of fat necrosis was seen that was starting to liquefy. The infected necrotic tissue extended to the abdominal wall fascia. The fascia appeared slightly swollen yet viable. The infected necrotic tissue that was excised and debrided involved skin, subcutaneous tissue, and fascia down to the abdominal wall fascia. On the right side there was a pocket of pus that was also drained. Superiorly there was an area of infection with thickened infected capsular scar tissue that was excised and debrided. The wound was irrigated with saline. Hemostasis was obtained with electrocautery. A large curette was also used to debride the abdominal wall fas judy as well. Tissue was sent to Microbiology for culture as well as to Pathology for analysis to rule out carcinoma. The size of the abdominal wall wound with involvement of the mons pubis after the excision and debridement necrotizing soft tissue infection was 30 x 22 x 5 cm or 660 cm2. The remaining tissue was viable with no further evidence of infection. The wound was dressed with Mepitel nonadherent dressing followed by Kerlix gauze and Betadine followed by dry Kerlix gauze and ABD pads compression dressing. An abdominal wall binder was then applied. Patient tolerated the procedure well and was sent to PACU in satisfactory condition. Patient will be sent upstairs for continued postop care. Due to the amount of operative blood loss, about 550 ml, will transfuse PRBC postop because of a preop Hgb of 7.7. She will continue Vancomycin and Zosyn postoperatively. A positive culture may necessitate antibiotic modification. After discharge will followup at the [facility]. Grafts/Implants Used: None. - Complications None. - Admit VTE Documentation VTE Present on Admission: No VTE Mechan Device Prophylaxis: SCD's VTE Pharm Prophylaxis ordered?: No Code Visit Surgery Charges CPT - 99949 ICD-10 - T81.49xA, L02.211, M79.89, R63.4, I89.0
[2019-03-28] MEDS: 0.9% Normal Saline 1,000 ML 75 ML IV (15:01)
[2019-03-28] MEDS: Lisinopril 40 MG Tablet PO (16:18)
[2019-03-28] MEDS: DAKIN'S SOL HALF STRENGTH (=0.25%) 1 APPLIC TOPICAL (16:18)
[2019-03-28] MEDS: Docusate Sodium 100 MG Capsule PO (16:18)
[2019-03-28] MEDS: oxyCODONE 5 MG Tablet 10 MG PO ×2 (16:33→20:10)
[2019-03-28] MEDS: diazePAM 5 MG Tablet PO (17:25)
--- NOTE | 2019-03-28 23:49 | NURSING ---
error when documenting vitals at initiating blood transfusion. vs times for 1850 were taken at 2343 and re documented at the correct time.
[2019-03-29] VITALS (8 sets, daily range): BP systolic 116–161; BP diastolic 56–87; PULSE 80–95; RESP 14–18; TEMP 36.8–37.6; O2SAT 93–100
[2019-03-29] MEDS: HYDROmorphone 1 MG/ML Syringe IV ×9 (01:06→21:45)
[2019-03-29] MEDS: 0.9% Saline Lock 10 ML Syringe IV ×7 (01:06→19:41)
[2019-03-29] MEDS: oxyCODONE 5 MG Tablet 10 MG PO ×3 (02:12→08:54)
[2019-03-29 06:12] LABS: Absolute Lymphocyte Count 0.93 X10^3/uL (0.83-4.51); Absolute Neutrophil Count 5.5 X10^3/uL (2.0-7.7); Basophil# 0.09 X10^3/uL; Basophil% 1.1 % (0-1); Eosinophil# 0.21 X10^3/uL; Eosinophils% 2.7 % (0-5); Hematocrit 33.6 % (37-47); Hemoglobin 10.4 g/dL (12.0-15.0); Lymphocyte # 0.93 X10^3/ul (4.0); Lymphocyte % 11.7 % (19-41); Mean Corpuscular Hgb 24.1 pg (27.0-32.0); Mean Platelet Vol. 9.8 fl (6.2-12.0); Monocyte# 1.11 X10^3/uL; NRBC Flagged by Analyzer 0 % (0-5); Neutrophil # 5.52 X10^3/uL (2.7-7.7); Neutrophil % 69.7 % (47-70); POSITIVE MORPHOLOGY YES; Platelet Count 532 K/mm3 (150-450); RBC Distribution Width CV 21.5 % (11.6-14.6); RBC Distribution Width SD 60.7 fl (35.1-43.9); Red Blood Count 4.31 M/mm3 (4.2-5.4); White Blood Count 7.9 K/mm3 (4.4-11.0)
[2019-03-29 06:39] LABS: Vancomycin, Trough Level 6.1 ug/mL (5.0-15.0)
[2019-03-29 06:42] LABS: ALB/GLOB Ratio 0.6 RATIO (0.9-2.4); AST(SGOT) 23 U/L (15-37); Alanine Aminotransfer ALT/SGPT 100 U/L (13-56); Albumin, Serum 2.1 g/dL (3.2-5.0); Alkaline Phosphatase 192 U/L (45-117); Anion Gap 6 (5-15); BUN 10 mg/dL (7-18); BUN/Creat Ratio 13.1 RATIO (10-20); Calcium,Total 8.3 mg/dL (8.5-10.1); Chloride 112 mmol/L (98-107); Creatinine, Serum 0.76 mg/dL (0.55-1.02); EST Glomerular Filtration Rate 93 mL/min (>60); Est Glom Filt Rate - Afr Amer 112 mL/min (>60); Estimated Creatinine Clearance 98.56 ml/min; Globulin 3.4 g/dL (2.2-4.2); Glucose 91 mg/dL (74-106); Potassium 4.5 mmol/L (3.5-5.1); Protein, Total 5.5 g/dL (6.4-8.2); Sodium Level 141 mmol/L (136-145)
[2019-03-29 07:10] LABS: Differential Indicated SCAN CRITERIA MET
[2019-03-29 07:26] LABS: Anisocytosis 2+; Hypochromasia 1+; Microcytosis 2+; Platelet Estimate ADEQUATE (ADEQ)
--- NOTE | 2019-03-29 07:42 | PCM.RX.CS ---
Consult Pharmacy has been consulted to manage selected antiobiotic: Vancomycin Type of Consult: Follow-up Suspected Infection: Skin/Soft tissue Prior Doses of Antibiotics Received/Current Regimen: 750mg iv q12h Labs: Sodium 141 mmol/L (136-145) 03/29/19 05:28 Potassium 4.5 mmol/L (3.5-5.1) 03/29/19 05:28 Chloride 112 mmol/L (98-107) H 03/29/19 05:28 Carbon Dioxide 23.0 mmol/L (21.0-32.0) 03/29/19 05:28 Anion Gap 6 (5-15) 03/29/19 05:28 BUN 10 mg/dL (7-18) 03/29/19 05:28 Creatinine 0.76 mg/dL (0.55-1.02) 03/29/19 05:28 Est GFR (MDRD) Af Amer 112 mL/min (>60) 03/29/19 05:28 Est GFR (MDRD) Non-Af 93 mL/min (>60) 03/29/19 05:28 BUN/Creatinine Ratio 13.1 RATIO (10-20) 03/29/19 05:28 Glucose 91 mg/dL (74-106) 03/29/19 05:28 Vancomycin Trough 6.1 ug/mL (5.0-15.0) 03/29/19 05:28 Microbiology: Microbiology 03/27/19 23:15 Wound - Abdominal Gram Stain - Final Weight used for dosin kg Estimated Creatinine Clearance: ~99ml/min Goal Trough: 10-15 mcg/mL Pharmacy Plan for Drug Dosing: Review of renal function shows improvement with Cr 0.76 and CrCl ~99 ml/min. Vancomycin trough level this AM was 6.1 with goal of 10-15 mcg/ml. Per pharmacokinetic policy will increase dose to 1250mg iv q12h. A repeat trough level has been ordered for before 4th dose of this new regimen. Pharmacy Service will continue to monitor and adjust dosing as required. Follow-Up Labs: Trough Vancomycin - 1.10.20 @0530 before 0600 dose
[2019-03-29] MEDS: 0.9% Normal Saline 1,000 ML 75 ML IV ×2 (07:47→21:51)
[2019-03-29] MEDS: DAKIN'S SOL HALF STRENGTH (=0.25%) 1 APPLIC TOPICAL (08:41)
[2019-03-29] MEDS: Lisinopril 40 MG Tablet PO ×2 (10:16→21:56)
--- NOTE | 2019-03-29 10:48 | PN_ITS ---
Patient Problems: Active and Suspected Problems (Last Reviewed 03/27/19 @ 19:57 by Salvatore Reyes DO) Nonhealing surgical wound (Acute) umbilical wound Subjective: Chief complaint: Follow-up after consultation for postoperative medical management. Patient seen and examined. No acute events overnight. Again, she complained of low abdominal pain after she took a walk around the floor. She denies fever chills. Denied chest pain or shortness of breath. Her vital signs are stable. - Physical Exam Vitals/I&O's: Vital Signs Temp Pulse Resp BP Pulse Ox 98.6 F 93 14 152/83 H 96 03/29/19 07:45 03/29/19 07:45 03/29/19 07:45 03/29/19 07:45 03/29/19 07:45 Oxygen Delivery Method Room Air Weight: 212 lb 1.355 oz Body Mass Index (BMI) 34.0 Intake and Output for Last 24 Hours 03/27/19 03/28/19 03/29/19 23:59 23:59 23:59 Intake Total 1630 / 1630 3040.0 / 3040.0 2270 / 2270 Output Total 300 / 300 Balance 1630 / 1630 3040.0 / 3040.0 1969 / 1969 General: Alert, Oriented x3, Cooperative, No apparent distress HEENT: Atraumatic, PERRLA, EOMI, Normocephalic Oral: Moist Mucosa, No Gingival or Mucosal Lesions/ Ulcerations Neck: Supple, No JVD, Negative Carotid Bruits, Trachea Midline, Thyroid Normal Size and Texture Lungs: Clear to auscultation, Normal air movement, No rhonchi, No wheeze, No rales Cardiovascular: Regular rate, Regular Rhythm, Normal S1, Normal S2, No murmurs Abdomen: Bowel Sounds Present, Soft, Non Tender, Non-Distended, No Hepato- splenomegaly Extremities: No clubbing, No cyanosis, No edema Skin: No rashes, Ulcer/ Wound Lymphatic: No Cervical, Supraclavicular, or Inguinal Adenopathy Neurological: Cranial nerves II-XII grossly intact, Neuro grossly intact Psych/Mental Status: Normal Affect, Appropriate, Alert and oriented to time, place, person, mood and affect Microbiology Past 72 Hours 03/27/19 23:15 Wound - Abdominal Gram Stain - Final 01/06/20 23:15 Wound - Abdominal Wound Culture - Preliminary GNR Poss Pseudomonas sp Gram positive organism 03/27/19 14:00 Blood Culture (Wb) - Right Hand Blood Culture - Preliminary No growth in 48 hours. Laboratory Results 03/28/19 09:32: Blood Type A NEGATIVE, Antibody Screen NEGATIVE, Crossmatch See Detail 03/28/19 09:32: Crossmatch See Detail 03/29/19 05:28: Vancomycin Trough 6.1 03/29/19 05:28: WBC 7.9, RBC 4.31, Hgb 10.4 L, Hct 33.6 L, MCV 78.0 L D, MCH 24.1 L, MCHC 31.0 L, RDW Std Deviation 60.7 H, RDW Coeff of Andrez 21.5 H, Plt Count 532 H, MPV 9.8, Immature Gran % (Auto) 0.800, Neut % (Auto) 69.7, Lymph % (Auto) 11.7 L, Harlan % (Auto) 14.0 H, Eos % (Auto) 2.7, Baso % (Auto) 1.1 H, Absolute Neuts (auto) 5.5, Absolute Lymphs (auto) 0.93, Nucleated RBC % 0, Platelet Estimate ADEQUATE, Hypochromasia 1+, Anisocytosis 2+, Microcytosis 2+ 03/29/19 05:28: Sodium 141, Potassium 4.5, Chloride 112 H, Carbon Dioxide 23.0, Anion Gap 6, BUN 10, Creatinine 0.76, Estim Creat Clear Calc 98.56, Est GFR (MDRD) Af Amer 112, Est GFR (MDRD) Non-Af 93, BUN/Creatinine Ratio 13.1, Glucose 91, Calcium 8.3 L, Total Bilirubin 0.30, AST 23, ALT 100 H, Alkaline Phosphatase 192 H, Total Protein 5.5 L, Albumin 2.1 L, Globulin 3.4, Albumin/Globulin Ratio 0.6 L Current Medications Amitriptyline HCl (Elavil) 50 mg PO QHS PRN PRN PRN Reason: SLEEP Cyanocobalamin (Vitamin B12) 1,000 mcg IM Q30D RAUL Diazepam (Valium) 5 mg PO 4X/DAY PRN PRN Reason: spasm Last Admin: 03/28/19 17:25 Dose: 5 mg Documented by: Docusate Sodium (Colace) 100 mg PO BID RAUL Last Admin: 03/29/19 07:48 Dose: Not Given Documented by: Ergocalciferol (Vitamin D) 50,000 unit PO TuTh@1000 [facility] Last Admin: 03/28/19 16:15 Dose: Not Given Documented by: Fentanyl (Duragesic Patch) 50 mcg TRANSDERM. Q3D [facility] Last Admin: 03/28/19 16:19 Dose: 50 mcg Documented by: Hydromorphone HCl (Dilaudid Inj) 1 mg IV Q3H PRN PRN PRN Reason: Pain Score 6-10/10 Last Admin: 03/29/19 07:47 Dose: 1 mg Documented by: Piperacillin Sod/Tazobactam (Sod 3.375 gm/ Sodium Chloride) 50 mls @ 12.5 mls/hr IV Q8 [facility] Last Infusion: 03/29/19 09:45 Dose: Infused Documented by: Vancomycin IV Pharmacy to Dose (1 ea/ Sodium Chloride) 500 mls @ 250 mls/hr IV X1 PRN; Protocol PRN Reason: Rx to Dose Sodium Chloride () 1,000 mls @ 75 mls/hr IV .[id number] [facility] Last Admin: 03/29/19 07:47 Dose: 75 mls/hr Documented by: Sodium Chloride () 250 mls @ 15 mls/hr IV .[id number] PRN PRN Reason: Saline Flush Sodium Chloride () 250 mls @ 15 mls/hr IV .[id number] PRN PRN Reason: Additional IVPB Infusion Vancomycin HCl 1,250 mg/ (Sodium Chloride) 275 mls @ 167 mls/hr IV Q12H [facility] Lisinopril (Zestril) 40 mg PO BID [facility] Last Admin: 03/29/19 10:16 Dose: 40 mg Documented by: Nutritional Formula ([place] - [place] Flavor) 1 packet PO BIDCM [facility] Last Admin: 03/29/19 07:46 Dose: Not Given Documented by: Ondansetron HCl (Zofran Odt) 4 mg PO 4X/DAY PRN PRN PRN Reason: NAUSEA Oxycodone HCl (Oxyir) 10 mg PO Q3H PRN PRN PRN Reason: Pain Score 6-10/10 Last Admin: 03/29/19 08:54 Dose: 10 mg Documented by: Promethazine HCl (Phenergan Tablet) 25 mg PO Q4H PRN PRN PRN Reason: NAUSEA/VOMITING Sodium Chloride () 10 - 40 ml IV UD PRN PRN Reason: SALINE FLUSH Last Admin: 03/29/19 04:07 Dose: 10 ml Documented by: Sodium Hypochlorite (Dakins Solution 0.25% (1/2 Strength)) 1 applic TOPICAL BID RAUL; Protocol Last Admin: 03/29/19 08:41 Dose: 1 dose Documented by: Tamsulosin HCl (Flomax) 0.4 mg PO DAILY PRN PRN Reason: kidney stones Medical Necessity - Tobacco Use Smoking Status: Never smoker Tobacco Use: Non-smoker Assessment/Plan All Active Problems (Last Reviewed 03/27/19 @ 19:57 by Salvatore Reyes DO) Elevated LFTs (Acute) Abdominal wall abscess at site of surgical wound (Acute) Necrotizing soft tissue infection (Acute) Local infection of the skin and subcutaneous tissue, unspecified (Acute) Skin necrosis (Acute) Methicillin resistant Staphylococcus epidermidis infection (Acute) Nonhealing surgical wound (Acute) This is a 34 years old female patient admitted for recurrent lower abdominal wall wound infection/abscess/nonhealing wound/necrotizing soft tissue infection/skin necrosis and I am seeing this patient for preoperative and postoperative medical management. #1 recurrent lower abdominal wall surgical wound infection/abscess/nonhealing wound/necrotizing soft tissue infection/skin necrosis: Status post incision, drainage and excisional debridement. Postoperative day 1. Remained on IV vancomycin and Zosyn. Her vital signs are stable, afebrile, no leukocytosis. In the past, wound culture revealed MRSA. Pain is not well controlled. She is on IV Dilaudid PRN as well as fentanyl patch. Plastic surgery is managing. Plan to continue same treatment. #2 acute on chronic iron deficiency anemia: Baseline hemoglobin is been around 8 to 10 g/dL. Patient denied any bleeding from body orifices. She is asymptomatic. She received a total of 3 units of packed RBCs. Today's hemoglobin is 10.4 g deciliter. Stabilized. Plan to repeat H&H tomorrow morning. #3 elevated LFTs: Mainly ALT and alkaline phosphatase are elevated. AST and bilirubin are normal. Patient denied any right upper quadrant abdominal pain. She had a history of cholecystectomy. Liver enzymes and alkaline phosphatase continued to trend down. Doxycycline discontinued. #4 hypertension: Blood pressure stable, continue lisinopril. #5 history of nephrolithiasis: Stable, kidney function is normal. #6 DVT prophylaxis: SCDs. This note was generated with HistoryFileation software. It may contain incorrect words, spelling, and punctuation that were not noted in checking the note before signing. Code Visit Inpatient E&M: 33345 Subs Hosp L2
--- NOTE | 2019-03-29 11:02 | CASEMGMT ---
Addendum entered by Lorin Reyna 03/29/19 11:19: Pt denied any substance abuse hx. Original Note: Social Work Note SW spoke with pt regarding multiple [facility] [place] visits, multiple surgeries, wounds, etc to provide support to pt. SW introduced self and role at [facility] [place]. Pt is alert and orientated x3 sitting up in chair. Pt states that she is handling things well. Pt state that she knows what to expect everytime she has surgery and knows how to do her own dressing changes and wound vac changes. SW spoke with pt regarding pt's long process with wounds, multiple surgeries, visits to [facility] [place] etc. Pt does confirm that it has been a long process and has been difficult but again states she is handling things well. Pt states that she has good support. Pt identifies her mother being good support for her as that who she lives with. Pt states she does have some sadness regarding surgeries and wounds but again states that she is dealing with it well. Pt does confirm that she prefers to do her own dressing changes and wound vac changes. Pt states It's just what I prefer to do. SW explored with pt why she chooses to do her own dressing changes and wound vac changes. Pt again states I just do, I know when it is painful and when it's not and just prefer to do it. Pt states that she keeps the wound clean while cleaning it but previous reports state pt doesn't like to wear gloves while changing dressing changes. Pt adamant that she is keeping her wounds clean and again states she prefers to change the dressings her self. Pt denied any depression. Pt denied additional mental health history. Pt did not mention to this worker if she is intentionally trying to infect her wounds to continue to have surgeries and wound care. Pt just stated I just prefer to do my own wound care as I know how to do it. SW spent time with pt offering support to pt. Pt then asked about FMLA paperwork. SW informed pt that she will need to speak with her employer regarding FMLA and then Dr. Mendieta will need to complete forms. Pt states understanding, denied any additional needs or concerns at this time. Lorin Reyna POULTRY PROCESSING SUPERVISOR, [employer]CR[employer]
--- NOTE | 2019-03-29 13:01 | PN.SURG_ITS ---
Patient Problems: Active and Suspected Problems (Last Reviewed 03/27/19 @ 19:57 by Salvatore Reyes DO) Nonhealing surgical wound (Acute) umbilical wound Subjective: Postop #1 Patient has increased wound pain. Needed IV analgesia for the Dakin's dressing change. - Physical Exam Vitals/I&O's: Vital Signs Temp Pulse Resp BP Pulse Ox 98.6 F 93 14 152/83 H 96 03/29/19 07:45 03/29/19 07:45 03/29/19 07:45 03/29/19 07:45 03/29/19 07:45 Oxygen Delivery Method Room Air Weight: 212 lb 1.355 oz Body Mass Index (BMI) 34.0 Intake and Output for Last 24 Hours 03/27/19 03/28/19 03/29/19 23:59 23:59 23:59 Intake Total 1630 / 1630 3040.0 / 3040.0 2270 / 2270 Output Total 300 / 300 Balance 1630 / 1630 3040.0 / 3040.0 1969 / 1969 General: Alert, Oriented x3 HEENT: PERRLA, EOMI Oral: Moist Mucosa Neck: Supple Abdomen: Soft, Non-Distended Skin: Ulcer/ Wound - Abdominal wall wound stable. No active bleeding. Redressed with Dakin's dressing. Had increased pain with the dressing change. Needed IV analgesia. Neurological: Cranial nerves II-XII grossly intact Psych/Mental Status: Normal Affect, Appropriate Microbiology Past 72 Hours 03/28/19 14:04 Tissue - Abdominal Wound Culture - Preliminary GNR Poss Pseudomonas sp 03/27/19 23:15 Wound - Abdominal Gram Stain - Final 03/27/19 23:15 Wound - Abdominal Wound Culture - Preliminary GNR Poss Pseudomonas sp Gram positive organism 03/27/19 14:00 Blood Culture (Wb) - Right Hand Blood Culture - Preliminary No growth in 48 hours. Laboratory Results 03/28/19 09:32: Crossmatch See Detail 03/28/19 09:32: Crossmatch See Detail 03/29/19 05:28: Vancomycin Trough 6.1 03/29/19 05:28: WBC 7.9, RBC 4.31, Hgb 10.4 L, Hct 33.6 L, MCV 78.0 L D, MCH 24.1 L, MCHC 31.0 L, RDW Std Deviation 60.7 H, RDW Coeff of Andrez 21.5 H, Plt Count 532 H, MPV 9.8, Immature Gran % (Auto) 0.800, Neut % (Auto) 69.7, Lymph % (Auto) 11.7 L, [place] % (Auto) 14.0 H, Eos % (Auto) 2.7, Baso % (Auto) 1.1 H, Absolute Neuts (auto) 5.5, Absolute Lymphs (auto) 0.93, Nucleated RBC % 0, Platelet Estimate ADEQUATE, Hypochromasia 1+, Anisocytosis 2+, Microcytosis 2+ 03/29/19 05:28: Sodium 141, Potassium 4.5, Chloride 112 H, Carbon Dioxide 23.0, Anion Gap 6, BUN 10, Creatinine 0.76, Estim Creat Clear Calc 98.56, Est GFR (MDRD) Af Amer 112, Est GFR (MDRD) Non-Af 93, BUN/Creatinine Ratio 13.1, Glucose 91, Calcium 8.3 L, Total Bilirubin 0.30, AST 23, ALT 100 H, Alkaline Phosphatase 192 H, Total Protein 5.5 L, Albumin 2.1 L, Globulin 3.4, Albumin/Globulin Ratio 0.6 L Current Medications Amitriptyline HCl (Elavil) 50 mg PO QHS PRN PRN PRN Reason: SLEEP Cyanocobalamin (Vitamin B12) 1,000 mcg IM Q30D [facility] Diazepam (Valium) 5 mg PO 4X/DAY PRN PRN Reason: spasm Last Admin: 03/28/19 17:25 Dose: 5 mg Documented by: Docusate Sodium (Colace) 100 mg PO BID [facility] Last Admin: 03/29/19 07:48 Dose: Not Given Documented by: Ergocalciferol (Vitamin D) 50,000 unit PO TuTh@1000 [facility] Last Admin: 03/28/19 16:15 Dose: Not Given Documented by: Fentanyl (Duragesic Patch) 50 mcg TRANSDERM. Q3D [facility] Last Admin: 03/28/19 16:19 Dose: 50 mcg Documented by: Hydromorphone HCl (Dilaudid Inj) 1 mg IV Q2H PRN PRN PRN Reason: Pain Score 6-10/10 Piperacillin Sod/Tazobactam (Sod 3.375 gm/ Sodium Chloride) 50 mls @ 12.5 mls/hr IV Q8 [facility] Last Infusion: 03/29/19 09:45 Dose: Infused Documented by: Vancomycin IV Pharmacy to Dose (1 ea/ Sodium Chloride) 500 mls @ 250 mls/hr IV X1 PRN; Protocol PRN Reason: Rx to Dose Sodium Chloride () 1,000 mls @ 75 mls/hr IV .[id number] [facility] Last Admin: 03/29/19 07:47 Dose: 75 mls/hr Documented by: Sodium Chloride () 250 mls @ 15 mls/hr IV .[id number] PRN PRN Reason: Saline Flush Sodium Chloride () 250 mls @ 15 mls/hr IV .[id number] PRN PRN Reason: Additional IVPB Infusion Vancomycin HCl 1,250 mg/ (Sodium Chloride) 275 mls @ 167 mls/hr IV Q12H [facility] Lisinopril (Zestril) 40 mg PO BID [facility] Last Admin: 03/29/19 10:16 Dose: 40 mg Documented by: Nutritional Formula ([place] [facility] Last Admin: 03/29/19 07:46 Dose: Not Given Documented by: Ondansetron HCl (Zofran Odt) 4 mg PO 4X/DAY PRN PRN PRN Reason: NAUSEA Oxycodone HCl (Oxyir) 10 mg PO Q3H PRN PRN PRN Reason: Pain Score 6-10/10 Last Admin: 03/29/19 08:54 Dose: 10 mg Documented by: Promethazine HCl (Phenergan Tablet) 25 mg PO Q4H PRN PRN PRN Reason: NAUSEA/VOMITING Sodium Chloride () 10 - 40 ml IV UD PRN PRN Reason: SALINE FLUSH Last Admin: 03/29/19 11:05 Dose: 20 ml Documented by: Sodium Hypochlorite (Dakins Solution 0.25% (1/2 Strength)) 1 applic TOPICAL BID [facility]; Protocol Last Admin: 03/29/19 08:41 Dose: 1 dose Documented by: Tamsulosin HCl (Flomax) 0.4 mg PO DAILY PRN PRN Reason: kidney stones Medical Necessity - Tobacco Use Smoking Status: Never smoker Tobacco Use: Non-smoker Assessment/Plan All Active Problems (Last Reviewed 03/27/19 @ 19:57 by Salvatore Jopperi, DO) Elevated LFTs (Acute) Abdominal wall abscess at site of surgical wound (Acute) Necrotizing soft tissue infection (Acute) Local infection of the skin and subcutaneous tissue, unspecified (Acute) Skin necrosis (Acute) Methicillin resistant Staphylococcus epidermidis infection (Acute) Nonhealing surgical wound (Acute) 1. Infected abdominal wall and vulval wound involving the mons pubis with foul smelling drainage suspicious of abscess. 2. Necrotizing soft tissue infection. 3. 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 4. 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 5. s/p surgical preparation lower anterior abdominal wall with incision and drainage and excisional debridement skin, subcutaneous tissue, and fascia necrotizing soft tissue infection abscess (660 cm2). 6. Elevated LFT's, slowly resolving. 7. Anemia of chronic disease, acute on chronic with acute blood loss anemia, stable after PRBC. Abdominal wall wound is stable. No active bleeding noted. Redressed with Dakin's dressing to be done twice daily. Had increased pain. Needed IV analgesia. Increased the Dilaudid IV to every 2 hours prn. Continue Vancomycin and Zosyn. Cultures show Gram positive organism and Gram negative rods possible Pseudomonas. The plan is to go home on po antibiotics unless there is a resistant organism that necessitates IV antibiotics. Prealbumin was 9.3. Encourage nutritional supplementation with protein to help the healing process. Will continue the Dakin's dressing changes at home after discharge and have a VAC holiday. Will make a decision at the [facility] on 04/10/19 regarding continuing the Dakin's or restarting the VAC. Elevated LFT's are slowly resolving. Probably related to recent usage of Doxycycline. Her Hgb improved to 10.4 from 7.7 preop. Had acute blood loss anemia with 550 ml of operative blood loss. Also received PRBC. Patient state she has been worked up in the past and has Vitamin B12 anemia.
[2019-03-30] MEDS: HYDROmorphone 1 MG/ML Syringe IV ×4 (00:04→06:23)
[2019-03-30 02:19] VITALS: BP 155/89; PULSE 78; RESP 16; TEMP 36.4; O2SAT 99
[2019-03-30] MEDS: 0.9% Saline Lock 10 ML Syringe IV (06:21)
[2019-03-30 06:49] LABS: Hematocrit 28.1 % (37-47); Hemoglobin 8.7 g/dL (12.0-15.0)
[2019-03-30] MEDS: diazePAM 5 MG Tablet PO (08:19)
[2019-03-30] MEDS: HYDROmorphone 2 MG TABLET PO ×2 (08:20→09:30)
[2019-03-30] MEDS: Docusate Sodium 100 MG Capsule PO (08:20)
[2019-03-30] MEDS: Acetaminophen 325 MG Tablet 650 MG PO (08:20)
[2019-03-30 09:28] VITALS: BP 129/68; PULSE 84; RESP 16; TEMP 36.8; O2SAT 97
[2019-03-30] MEDS: Lisinopril 40 MG Tablet PO (09:33)
[2019-03-30] MEDS: DAKIN'S SOL HALF STRENGTH (=0.25%) 1 APPLIC TOPICAL (09:35)
--- NOTE | 2019-03-30 09:59 | PCM.PN.SRG ---
Patient Problems: Active and Suspected Problems (Last Reviewed 03/27/19 @ 19:57 by Salvatore Reyes DO) Nonhealing surgical wound (Acute) umbilical wound Subjective: Postop #2 Patient has wound pain. Tolerated the Dakin's dressing change with some discomfort with po analgesia. - Physical Exam Vitals/I&O's: Vital Signs Temp Pulse Resp BP Pulse Ox 98.3 F 84 16 129/68 H 97 03/30/19 09:28 03/30/19 09:28 03/30/19 09:28 03/30/19 09:28 03/30/19 09:28 Oxygen Delivery Method Room Air Weight: 212 lb 1.355 oz Body Mass Index (BMI) 34.0 Intake and Output for Last 24 Hours 03/28/19 03/29/19 03/30/19 23:59 23:59 23:59 Intake Total 3040.0 / 3040.0 3736.00 / 3736.00 1553.75 / 1553.75 Output Total 300 / 300 Balance 3040.0 / 3040.0 3436.00 / 3436.00 1553.75 / 1553.75 General: Alert, Oriented x3 HEENT: PERRLA, EOMI Oral: Moist Mucosa Neck: Supple Abdomen: Soft, Non-Distended Skin: Ulcer/ Wound - abdominal wall and vulval wound is clean. No further evidence of infection at this time. Tolerated the Dakin's dressing change reasonably. Had pain but was able to proceed with po analgesia. Neurological: Cranial nerves II-XII grossly intact Psych/Mental Status: Normal Affect, Appropriate Microbiology Past 72 Hours 03/28/19 14:04 Tissue - Abdominal Gram Stain - Final 03/28/19 14:04 Tissue - Abdominal Wound Culture - Final Pseudomonas aeroginosa 03/28/19 14:04 Tissue - Abdominal Anaerobic Culture - Preliminary Checking for anaerobes, further studies to follow. 03/27/19 23:15 Wound - Abdominal Gram Stain - Final 03/27/19 23:15 Wound - Abdominal Wound Culture - Preliminary Pseudomonas aeroginosa Gram positive organism 03/27/19 23:20 Blood Culture (Wb) - Right Hand Blood Culture - Preliminary No growth in 48 hours. 03/27/19 14:00 Blood Culture (Wb) - Right Hand Blood Culture - Preliminary No growth in 48 hours. Laboratory Results 03/30/19 06:30: Hgb 8.7 L, Hct 28.1 L Current Medications Acetaminophen (Tylenol) 650 mg PO Q6H [facility] Last Admin: 03/30/19 08:20 Dose: 650 mg Documented by: Amitriptyline HCl (Elavil) 50 mg PO QHS PRN PRN PRN Reason: SLEEP Cyanocobalamin (Vitamin B12) 1,000 mcg IM Q30D [facility] Diazepam (Valium) 5 mg PO 4X/DAY PRN PRN Reason: spasm Last Admin: 03/30/19 08:19 Dose: 5 mg Documented by: Docusate Sodium (Colace) 100 mg PO BID [facility] Last Admin: 03/30/19 08:20 Dose: 100 mg Documented by: Ergocalciferol (Vitamin D) 50,000 unit PO TuTh@1000 [facility] Last Admin: 03/28/19 16:15 Dose: Not Given Documented by: Fentanyl (Duragesic Patch) 50 mcg TRANSDERM. Q3D [facility] Last Admin: 03/28/19 16:19 Dose: 50 mcg Documented by: Hydromorphone HCl (Dilaudid Inj) 1 mg IV Q2H PRN PRN PRN Reason: WOUND DEBRIDMENT Last Admin: 03/30/19 06:23 Dose: 1 mg Documented by: Hydromorphone HCl (Dilaudid Tablet) 2 - 4 mg PO Q3H PRN PRN PRN Reason: Pain Score 1-10/10 Last Admin: 03/30/19 09:30 Dose: 2 mg Documented by: Piperacillin Sod/Tazobactam (Sod 3.375 gm/ Sodium Chloride) 50 mls @ 12.5 mls/hr IV Q8 [facility] Last Admin: 03/30/19 06:13 Dose: 12.5 mls/hr Documented by: Vancomycin IV Pharmacy to Dose (1 ea/ Sodium Chloride) 500 mls @ 250 mls/hr IV X1 PRN; Protocol PRN Reason: Rx to Dose Sodium Chloride () 1,000 mls @ 75 mls/hr IV .[id number] [facility] Last Infusion: 03/30/19 08:24 Dose: 75 mls/hr Documented by: Sodium Chloride () 250 mls @ 15 mls/hr IV .[id number] PRN PRN Reason: Saline Flush Last Infusion: 03/29/19 22:33 Dose: 0 mls/hr Documented by: Sodium Chloride () 250 mls @ 15 mls/hr IV .[id number] PRN PRN Reason: Additional IVPB Infusion Vancomycin HCl 1,250 mg/ (Sodium Chloride) 275 mls @ 167 mls/hr IV Q12H [facility] Last Infusion: 03/30/19 08:25 Dose: Infused Documented by: Lisinopril (Zestril) 40 mg PO BID [facility] Last Admin: 03/30/19 09:33 Dose: 40 mg Documented by: Nutritional Formula ([place] [facility] [place] Flavor) [facility] Last Admin: 03/30/19 08:20 Dose: Not Given Documented by: Ondansetron HCl (Zofran Odt) 4 mg PO 4X/DAY PRN PRN PRN Reason: NAUSEA Promethazine HCl (Phenergan Tablet) 25 mg PO Q4H PRN PRN PRN Reason: NAUSEA/VOMITING Sodium Chloride () 10 - 40 ml IV UD PRN PRN Reason: SALINE FLUSH Last Admin: 03/30/19 06:21 Dose: 10 ml Documented by: Sodium Hypochlorite (Dakins Solution 0.25% (1/2 Strength)) 1 applic TOPICAL BID [facility]; Protocol Last Admin: 03/30/19 09:35 Dose: 1 dose Documented by: Tamsulosin HCl (Flomax) 0.4 mg PO DAILY PRN PRN Reason: kidney stones Medical Necessity - Tobacco Use Smoking Status: Never smoker Tobacco Use: Non-smoker Assessment/Plan All Active Problems (Last Reviewed 03/27/19 @ 19:57 by Salvatore Reyes DO) Abdominal wall abscess (Acute) Elevated LFTs (Acute) Abdominal wall abscess at site of surgical wound (Acute) Necrotizing soft tissue infection (Acute) Local infection of the skin and subcutaneous tissue, unspecified (Acute) Skin necrosis (Acute) Methicillin resistant Staphylococcus epidermidis infection (Acute) Nonhealing surgical wound (Acute) 1. Infected abdominal wall and vulval wound involving the mons pubis with foul smelling drainage suspicious of abscess. 2. Necrotizing soft tissue infection. 3. 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 4. 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 5. s/p surgical preparation lower anterior abdominal wall with incision and drainage and excisional debridement skin, subcutaneous tissue, and fascia necrotizing soft tissue infection abscess (660 cm2). 6. Elevated LFT's, slowly resolving. 7. Anemia of chronic disease, acute on chronic with acute blood loss anemia, stable after PRBC. Abdominal wall wound is stable. No active bleeding noted. Redressed with Dakin's dressing. Patient had pain with the dressing change but was able to tolerate it with po analgesia. Home Health will assist with the Dakin's dressing changes at home. Will also wear an abdominal binder as well. Operative culture showed Pseudomonas aeroginosa. Will discharge home on Levaquin. Prealbumin was 9.3. Encourage nutritional supplementation with protein to help the healing process. Will continue the Dakin's dressing changes at home after discharge and have a VAC holiday. Will make a decision at the Wound Center on 04/10/19 regarding continuing the Dakin's or restarting the VAC. Elevated LFT's are slowly resolving. Probably related to recent usage of Doxycycline. Her Hgb has stabilized at 8.7, down from 10.4. No active bleeding noted at this time. Had acute blood loss anemia with 550 ml of operative blood loss. Also received PRBC. Patient state she has been worked up in the past and has Vitamin B12 anemia. Discharge home today. Followup at [facility]ound Center 04/10/19. Wrote script for Levaquin for the Pseudomonas. Wrote scripts for Dilaudid for pain, 4 mg, (40 tabs) and for Valium for spasm (30 tabs).
--- NOTE | 2019-03-30 10:31 | NURSING ---
wound photo: abdomen
--- NOTE | 2019-03-30 10:35 | DCINST_ITS ---
- Discharge Diagnoses Current Active Problems: Current Active and Chronic Problems (Last Reviewed 03/27/19 @ 19:57 by Salvatore Reyes DO) Nonhealing surgical wound (Acute) umbilical wound You will use the following diet at home:: No restrictions, Other - encourage nutritional supplementation with protein to help the healing process. Discharge Activity: May Not Drive, May Shower - at the time of the Dakin's dressing changes., - - keep head elevated. no heavy lifting. wear abdominal binder. Weight Bearing Status: Weight bearing as tolerated Lifting Restrictions: 20 lbs. Keep extremity elevated above heart level: - - elevate head. Call your doctor if your incision/area has: Continuous Slow Oozing, Sudden Increased Bleeding, Increased Pain/ Swelling, Increased Redness, Foul Smelling Discharge, Swelling at the incision site Call your doctor if you observe: Fever of 101 or Higher, Coldness, Increased Pain, Shortness of breath, Chest pain, Calf discomfort, Uncontrolled pain Suture Line Care: - - daily Dakin's dressing changes with assist from Home Health Change Dressing in (Days):: 1 - Dakin's dressing changes daily. Cleanse incision/area with: Soap & Water - may cleanse the wound with soap and water at the time of the Dakin's dressing change. Allergies/Adverse Reactions: Allergies methocarbamol Allergy (Verified 03/27/19 12:33) Chest tightness gabapentin Adverse Reaction (Verified 03/27/19 14:39) abnormal gait ketorolac tromethamine [From Toradol] Adverse Reaction (Verified 03/27/19 12:33) Upset Stomach NSAIDS (Non-Steroidal Anti-Inflamma Adverse Reaction (Verified 03/27/19 12:33) gastric bipass not supposed to take tramadol Adverse Reaction (Verified 03/27/19 12:33) Upset Stomach Medications to take at Discharge Amitriptyline HCl [Elavil] 50 mg PO QHS PRN 04/30/17 Ergocalciferol [Vitamin D] 50,000 unit PO [facility] 04/30/17 Etonogestrel [Nexplanon] 68 mg SQ UD 04/30/17 Tamsulosin HCl [Flomax] 0.4 mg PO DAILY PRN 04/30/17 Lisinopril [Zestril] 40 mg PO BID 05/30/17 Cyanocobalamin [Vitamin B12] 1,000 mcg IM Q30D 07/06/17 Ondansetron [Zofran Odt] 4 mg PO 4X/DAY PRN PRN #30 tab 03/16/19 Metronidazole 500 mg PO TID 03/27/19 Diazepam [Valium] 5 mg PO 4X/DAY PRN #30 tab 03/30/19 Docusate Sodium [Colace] 100 mg PO BID cap 03/30/19 Gauze Bandage [Kerlix] 3 ea TP DAILY #90 bandage 03/30/19 Hydromorphone HCl 4 mg PO Q4H PRN 7 Days #40 tab 03/30/19 Sodium Hypochlorite [Dakins Solution 0.25% (1/2 Strength)] 1 applic TOPICAL DAILY #2 bottle 03/30/19 levoFLOXacin tablet [Levaquin tablet] 500 mg PO DAILY #21 tab 03/30/19 The following prescriptions were given: Sodium Hypochlorite [Dakins Solution 0.25% (1/2 Strength)] 1 applic TOPICAL DAILY #2 bottle Transmission Status: [facility] Hydromorphone HCl 4 mg PO Q4H PRN 7 Days #40 tab PRN Reason: Pain Score 4-5/10 Transmission Status: [facility] Gauze Bandage [Kerlix] 3 ea TP DAILY #90 bandage Transmission Status: Pending to [address] levoFLOXacin tablet [Levaquin tablet] 500 mg PO DAILY #21 tab Transmission Status: Pending to [address] Diazepam [Valium] 5 mg PO 4X/DAY PRN #30 tab PRN Reason: spasm Transmission Status: Received by [address] Primary Care Physician: Bethel Jauregui III, MD [Primary Care Provider] - Test Results: Test results from this visit will be discussed in further detail at your follow- up appointment, if applicable. Please Follow Up With: Gigi Mendieta MD When: wednesday04/10/19 at wound center. call [phone] for appt. Proposed Discharge Date: 03/30/19
--- NOTE | 2019-03-30 10:44 | PCM.DC.SUM ---
Discharge Date and Diagnosis Date of Admission: 03/27/19 Date of Discharge: 03/30/19 - Primary Discharge Diagnosis Infected abdominal wall and vulval wound involving the mons pubis with foul smelling drainage suspicious of abscess. Necrotizing soft tissue infection. Elevated LFT's, slowly resolving. Anemia of chronic disease, acute on chronic with acute blood loss anemia, stable after PRBC. - Secondary Discharge Diagnosis Recent excessive weight loss after gastric bypass procedure. Lymphedema genitalia involving genitocrural area extending up to labia Other complications of skin graft (allograft) (autograft) Vulvar ulceration abdominal wall skin crease intertrigo Localized adiposity with painful soft tissue mass pubic area HTN (hypertension) Nephrolithiasis Ovarian cyst Hospital Course and Treatment Imaging Results: Diagnostic Data Abdomen/Pelvis CT 03/27/19 17:28 IMPRESSION: Postsurgical changes status post debridement of lower anterior pelvic wall wound. In the right supraumbilical subcutaneous fat there is a small fluid collection measuring possibly 2.5 x 6.3 cm with air bubbles possibly representing residual abscess or infected hematoma. Clinical correlation recommended Other findings as above Electronically Signed: Cm Ivey MD at 19:43 EST , Service support , Consultations 03/28/19 06:40 Consult: Onc/Wound/optical mechanic Routine Comment: Reason for Consult:: wound abdomen Hospitalist Group - Dr. Reyes and Dr. Ruiz. Operations: - - 03/28/19 - Surgical preparation lower anterior abdominal wall with incision and drainage and excisional debridement skin, subcutaneous tissue, and fascia necrotizing soft tissue infection abscess (660 cm2). Procedures: Blood transfusion, PICC line placement Summary of Care Provided: Patient had surgery on 02/21/19 where she underwent surgical preparation vulva involving mons pubis with excisional debridement painful infected skin graft scar contour deformity and reconstruction with abdominal wall advancement skin flap (215 cm2) and complex secondary wound closure. Postoperatively she developed some necrosis in the umbilical area with subsequent drainage. Also a portion of the distal skin flap in the pubic area developed some compromise with skin necrosis. After local debridement in the office, wound care was started with Dakin's solution dressing changes. Wound cultures were done and she was started on Levaquin. The wound cultures were positive for MRSE and Staphylococcus aureus. There was persistent drainage from the wounds and wound care has been difficult at home. She was taken to surgery on 03/13/19 where she underwent surgical preparation abdominal wall area with incision and drainage and excisional debridement necrotic infected seroma including umbilicus (182 cm2) and surgical preparation vulva involving the mons pubis area with incision and drainage and excisional debridement necrotic infected seroma (52 cm). Postop op wound care was started with the VAC. Was treated perioperatively with Vancomycin. Operative cultures showed Staphylococcus simulans (Methicillin resistant), Actinomyces odontolyticus, and Prevotella melaninogenica. After discharge he was placed on Doxycycline and later on Flagyl. She was discharged from the hospital on 03/16/19. Over the ensuing 10 days, she developed increasing pain, and swelling, and redness, and surrounding fat necrosis with foul smelling drainage. She went to the ED. BUN/Creatinine were 24/1.10. Total Bilirubin was 0.30. AST was 25. ALT was 225. Alkaline Phosphatase was 258. CBC and Coags and Lactate are pending. She was started on Vancomycin and Zosyn. Will hold the VAC and start Dakin's dressing changes twice a day to help with the odor. She was taken to surgery on 03/28/19 where she underwent surgical preparation lower anterior abdominal wall with incision and drainage and excisional debridement skin, subcutaneous tissue, and fascia necrotizing soft tissue infection abscess (660 cm2). Postoperatively we continued Dakin's dressing changes and put the VAC on hold until her appointment at the [facility] on 04/10/19. She tolerated the procedure well. She had a large amount of blood loss during the surgery, 550 ml. Her admission Hgb was 8.6 which is her normal state of anemia. On the morning of surgery it was 7.7. With the increased blood loss at surgery, she was given PRBC. Postop it improved to 10.4. On the day of discharge, it had decreased back to 8.7. Her Prealbumin was 9.3. Encourage nutritional supplementation with protein to help the healing process. Her LFT's were elevated at admission and a CT was done which showed a normal liver, a normal pancreas, and the gall bladder absent. Hospitalist Group was consulted for medical management. Operative cultures showed Pseudomonas and Gram positive organism. She was treated perioperatively with Vancomycin and Zosyn. Will discharge her home on Levaquin. When the Gram positive organism is identified and when the Anaerobic culture becomes available, antibiotic modification may be necessary. On the 2nd postop day, she was able to tolerate the Dakin's dressing change with po analgesia. She was discharged home in satisfactory condition. Wrote script for Levaquin. Wrote scripts for Dilaudid for pain, 4 mg, (40 tabs) and for Valium for spasm (30 tabs). Continue abdominal binder. Followup at the Wound Center on 04/10/19. Will determine at that time about continuing Dakin's versus going back on the VAC. - Physical Exam Vitals/I&O's: Vital Signs Temp Pulse Resp BP Pulse Ox 98.3 F 84 16 129/68 H 97 03/30/19 09:28 03/30/19 09:28 03/30/19 09:28 03/30/19 09:28 03/30/19 09:28 Oxygen Delivery Method Room Air Weight: 212 lb 1.355 oz Body Mass Index (BMI) 34.0 Intake and Output for Last 24 Hours 03/28/19 03/29/19 03/30/19 23:59 23:59 23:59 Intake Total 3040.0 / 3040.0 3736.00 / 3736.00 1603.75 / 1603.75 Output Total 300 / 300 Balance 3040.0 / 3040.0 3436.00 / 3436.00 1603.75 / 1603.75 Microbiology Past 72 Hours 03/28/19 14:04 Tissue - Abdominal Gram Stain - Final 03/28/19 14:04 Tissue - Abdominal Wound Culture - Final Pseudomonas aeroginosa 03/28/19 14:04 Tissue - Abdominal Anaerobic Culture - Preliminary Checking for anaerobes, further studies to follow. 03/27/19 23:15 Wound - Abdominal Gram Stain - Final 03/27/19 23:15 Wound - Abdominal Wound Culture - Preliminary Pseudomonas aeroginosa Gram positive organism 03/27/19 23:20 Blood Culture (Wb) - Right Hand Blood Culture - Preliminary No growth in 48 hours. 03/27/19 14:00 Blood Culture (Wb) - Right Hand Blood Culture - Preliminary No growth in 48 hours. Laboratory Results 03/30/19 06:30: Hgb 8.7 L, Hct 28.1 L Current Medications Acetaminophen (Tylenol) 650 mg PO Q6H [facility] Last Admin: 03/30/19 08:20 Dose: 650 mg Documented by: Amitriptyline HCl (Elavil) 50 mg PO QHS PRN PRN PRN Reason: SLEEP Cyanocobalamin (Vitamin B12) 1,000 mcg IM Q30D [facility] Diazepam (Valium) 5 mg PO 4X/DAY PRN PRN Reason: spasm Last Admin: 03/30/19 08:19 Dose: 5 mg Documented by: Docusate Sodium (Colace) 100 mg PO BID [facility] Last Admin: 03/30/19 08:20 Dose: 100 mg Documented by: Ergocalciferol (Vitamin D) 50,000 unit PO TuTh@1000 [facility] Last Admin: 03/28/19 16:15 Dose: Not Given Documented by: Fentanyl (Duragesic Patch) 50 mcg TRANSDERM. Q3D [facility] Last Admin: 03/28/19 16:19 Dose: 50 mcg Documented by: Hydromorphone HCl (Dilaudid Inj) 1 mg IV Q2H PRN PRN PRN Reason: WOUND DEBRIDMENT Last Admin: 03/30/19 06:23 Dose: 1 mg Documented by: Hydromorphone HCl (Dilaudid Tablet) 2 - 4 mg PO Q3H PRN PRN PRN Reason: Pain Score 1-10/10 Last Admin: 03/30/19 09:30 Dose: 2 mg Documented by: Piperacillin Sod/Tazobactam (Sod 3.375 gm/ Sodium Chloride) 50 mls @ 12.5 mls/hr IV Q8 [facility] Last Infusion: 03/30/19 10:39 Dose: Infused Documented by: Vancomycin IV Pharmacy to Dose (1 ea/ Sodium Chloride) 500 mls @ 250 mls/hr IV X1 PRN; Protocol PRN Reason: Rx to Dose Sodium Chloride () 250 mls @ 15 mls/hr IV .[id number] PRN PRN Reason: Saline Flush Last Infusion: 03/30/19 10:40 Dose: 15 mls/hr Documented by: Sodium Chloride () 250 mls @ 15 mls/hr IV .[id number] PRN PRN Reason: Additional IVPB Infusion Vancomycin HCl 1,250 mg/ (Sodium Chloride) 275 mls @ 167 mls/hr IV Q12H [facility] Last Infusion: 03/30/19 08:25 Dose: Infused Documented by: Lisinopril (Zestril) 40 mg PO BID [facility] Last Admin: 03/30/19 09:33 Dose: 40 mg Documented by: Nutritional Formula ([facility] [place] Fl[facility]) [facility] Last Admin: 03/30/19 08:20 Dose: Not Given Documented by: Ondansetron HCl (Zofran Odt) 4 mg PO 4X/DAY PRN PRN PRN Reason: NAUSEA Promethazine HCl (Phenergan Tablet) 25 mg PO Q4H PRN PRN PRN Reason: NAUSEA/VOMITING Sodium Chloride () 10 - 40 ml IV UD PRN PRN Reason: SALINE FLUSH Last Admin: 03/30/19 06:21 Dose: 10 ml Documented by: Sodium Hypochlorite (Dakins Solution 0.25% (1/2 Strength)) 1 applic TOPICAL BID [facility]; Protocol Last Admin: 03/30/19 09:35 Dose: 1 dose Documented by: Tamsulosin HCl (Flomax) 0.4 mg PO DAILY PRN PRN Reason: kidney stones Discharge Diet: No Restrictions, - - encourage nutritional supplementation with protein to help the healing process. Discharge Activity: May Not Drive, May Shower - at the time of the Dakin's dressing changes., - - keep head elevated. no heavy lifting. wear abdominal binder. May shower in (days): 1 - at the time of the Dakin's dressing changes. Weight Bearing Status: Weight bearing as tolerated Keep extremity elevated above heart level: - - elevate head. Call your doctor if your incision/area has: Continuous Slow Oozing, Sudden Increased Bleeding, Increased Pain/ Swelling, Increased Redness, Foul Smelling Discharge, Swelling at the incision site Call your doctor if you observe: Fever of 101 or Higher, Coldness, Increased Pain, Shortness of breath, Chest pain, Calf discomfort, Uncontrolled pain Suture Line Care: - - daily Dakin's dressing changes with assist from Home Health Change Dressing in (Days):: 1 - Dakin's dressing changes daily. Cleanse incision/area with: Soap & Water - may cleanse the wound with soap and water at the time of the Dakin's dressing change. Home Medications: Medications to take at Discharge Amitriptyline HCl [Elavil] 50 mg PO QHS PRN 04/30/17 Ergocalciferol [Vitamin D] 50,000 unit PO TUTH 04/30/17 Etonogestrel [Nexplanon] 68 mg SQ UD 04/30/17 Tamsulosin HCl [Flomax] 0.4 mg PO DAILY PRN 04/30/17 Lisinopril [Zestril] 40 mg PO BID 05/30/17 Cyanocobalamin [Vitamin B12] 1,000 mcg IM Q30D 07/06/17 Ondansetron [Zofran Odt] 4 mg PO 4X/DAY PRN PRN #30 tab 03/16/19 Diazepam [Valium] 5 mg PO 4X/DAY PRN #30 tab 03/30/19 Docusate Sodium [Colace] 100 mg PO BID cap 03/30/19 Gauze Bandage [Kerlix] 3 ea TP DAILY #90 bandage 03/30/19 Sodium Hypochlorite [Dakins Solution 0.25% (1/2 Strength)] 1 applic TOPICAL DAILY #2 bottle 03/30/19 levoFLOXacin tablet [Levaquin tablet] 500 mg PO DAILY #21 tab 03/30/19 Metronidazole 500 mg PO TID #30 tab 04/01/19 Following Prescrptions Were Given to Patient: Sodium Hypochlorite [Dakins Solution 0.25% (1/2 Strength)] 1 applic TOPICAL DAILY #2 bottle Transmission Status: Received by [facility] Gauze Bandage [Kerlix] 3 ea TP DAILY #90 bandage Transmission Status: Received by [facility] levoFLOXacin tablet [Levaquin tablet] 500 mg PO DAILY #21 tab Transmission Status: Received by [facility] Metronidazole 500 mg PO TID #30 tab Transmission Status: Received by [facility] Diazepam [Valium] 5 mg PO 4X/DAY PRN #30 tab PRN Reason: spasm Transmission Status: [facility] Primary Care Physician: Bethel Jauregui III, MD [Primary Care Provider] - Please Follow Up With: Gigi Mendieta MD When: wednesday04/10/[address] [facility] center. call [phone] for appt. Disposition: Home with Home Health Minutes spent on discharge:: 35 Patient Condition:: Stable Medical Necessity - Tobacco Use Smoking Status: Never smoker Tobacco Use: Non-smoker Meaningful Use Info Meaningful Use Diagnoses (Choose all that apply): None applicable
--- NOTE | 2019-03-30 11:46 | CASEMGMT ---
RN SHAKEEL updated that patient will be discharging today. Discharge instructions and resumption of HHC faxed to [facility]. RICARDO BECKFORD called [facility] and updated regarding discharge today.
--- NOTE | 2019-03-31 13:55 | CASEMGMT ---
Case Management DC F/u Calls: DC Date: 03/30/2019 DC Diagnosis: Nonhealing surgical wound (Acute), umbilical wound DC Disposition: Home with resumption of [facility] for Wound Vac/Care Lace/Strata: 02/22 Called patient cell phone listed on demographics, patient answered, introduced self and role. Patient states that HHC nurse just left after doing dressing ,change and that she is having some pain. States that she just filled her Valium this morning because insurance would not pay for it to be filled earlier. States that she had taken one extra Dilaudid pill prior to that for the pain but is hoping the Valium will help her. Advised patient to call and discuss with her provider if the pain medication is not controlling her pain as she should only be taking her medication as prescribed as concern if she takes more than prescribed and running out sooner that they will not be able to fill/provider her with anymore pain medication. Patient states understanding. States that [facility] told her that they could not fill her Rx for Kerlix, but she had a couple and her C nurse had a couple, states that her [facility] nurse is trying to help her with the Rx and where she can get it filled, advised that they are OTC and if [facility] nurse not able to assist to try calling [facility] office and asking if there is a CM that can assist her. Denies any other questions, concerns, or issues with [facility], medications or f/u. Has a F/u with Dr Mendieta on 04/10/2019. Confirmed filled other DC medications. Thanked patient for choosing care at [facility], ended conversation. Michel Perez RNCM
== END 2019-03-30 12:34 | disposition home health service (06) | DRG 711 ==
LOC: ED 13:22 → MS3 15:16
PROVIDERS: Anesthesiology; Hospitalist; Admitting Provider Surgery; Emergency Provider Emergency Medicine; Family Provider Family Medicine; PCP Family Medicine; Referring Provider Surgery; Visit Provider Surgery
PROC: 0JB80ZZ Excision of Abdomen Subcutaneous Tissue and Fascia, Open Approach (ICD-10-PCS; principal; 2019-03-28 07:20)
DX: T81.41XA Infection following a procedure, superficial incisional surgical site, initial encounter (principal); L02.211 Cutaneous abscess of abdominal wall; D50.9 Iron deficiency anemia, unspecified; I96 Gangrene, not elsewhere classified; D62 Acute posthemorrhagic anemia; I89.0 Lymphedema, not elsewhere classified; I10 Essential (primary) hypertension; N20.0 Calculus of kidney; Z98.84 Bariatric surgery status; Z90.49 Acquired absence of other specified parts of digestive tract
CPT/HCPCS: 36415; 36569; 74177; 80053; 80202; 81025; 82306; 82607; 82728; 82746; 83540; 83550; 83605; 84134; 84443; 85014; 85018; 85025; 85610; 85730; 86850; 86900; 86901; 86920; 86922; 87040; 87070; 87075; 87077; 87102; 87176; 87184; 87186; 87205; 87206; 88305; 93005; 97802; 99213; 99284; J1756; J7030; J7040; J7050; P9016; Q9967; A4216; G0463; J2405

== ENCOUNTER 2019-04-03 10:17 | Emergency (ER) | payer MEDICAID, SELFPAY ==
[2019-03-28 11:33] VITALS: BMI 34.0
[2019-04-03 10:18] VITALS: BP 164/109; PULSE 86; RESP 16; TEMP 36.1; O2SAT 100; BMI 33.9
[2019-04-03 10:36] VITALS: BP 164/109; PULSE 86; RESP 16; TEMP 36.1; O2SAT 100
--- NOTE | 2019-04-03 11:11 | ED.VIS.GEN ---
History of Present Illness Chief Complaint: Wound Check Informant: Patient Quality: sore Location: lower abd wound Current Severity: Severe Maximum Severity: Severe Worsened by: moving it, palpation, dressing changes Relieved by: dilaudid when she takes it Associated Symptoms: smelling bad. no fevers, systemic sx. Narrative: Patient had a gastric bypass surgery remotely and had excess tissue removed by plastic surgery around 5-6 weeks ago. She had to have another surgery to remove some fat necrosis, according to the patient, around 2.5 weeks ago. She has been followed by wound care and home health nursing, applying Dakin's solution, and is on metronidazole now starting within the last couple days. She was seen here by wound care to have the wound evaluated because her pain continues to increase and she has a couple of areas that she is concerned about more fat necrosis in. 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 (2) Necrotizing soft tissue infection Status: Chronic (3) Nonhealing surgical wound Status: Chronic Comment: umbilical wound (4) Pseudomonas aeruginosa infection Status: Chronic (5) Acute on chronic blood loss anemia Status: Chronic (6) HTN (hypertension) Status: Chronic (7) Intertrigo Status: Chronic Comment: abdominal wall skin crease intertrigo (8) Localized adiposity Status: Chronic Comment: 8 cm painful soft tissue mass pubic area (9) Lymphedema of genitalia Status: Chronic (10) Nephrolithiasis Status: Chronic (11) 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 (12) Ovarian cyst Status: Chronic Past Medical History - Allergies and Home Meds Allergies/Adverse Reactions: Allergies methocarbamol Allergy (Verified 04/03/19 10:18) Chest tightness gabapentin Adverse Reaction (Verified 04/03/19 10:18) abnormal gait ketorolac tromethamine [From Toradol] Adverse Reaction (Verified 04/03/19 10:18) Upset Stomach NSAIDS (Non-Steroidal Anti-Inflamma Adverse Reaction (Verified 04/03/19 10:18) gastric bipass not supposed to take tramadol Adverse Reaction (Verified 04/03/19 10:18) Upset Stomach Primary Care Physician: Bethel Jauregui III, MD [Primary Care Provider] - Surgical History: cholecystectomy, gastric bypass, - - gastric bypass 04/18/15,thyroid nodular surgery, I+D abdominal wall and pelvic mass 05/03/17, Lives: Alone Smoking Status: Never smoker - Family History Maternal Family History: Family History (Last Reviewed 03/27/19 @ 19:57 by Salvatore Reyes DO) Mother Anxiety Bleeding disorder Depression Hypertension High cholesterol Cancer Father Diabetes Hypertension Grandfather Colon cancer Diabetes Heart disease Family History: Reports: Hypertension Paternal Family History: Family History (Last Reviewed 03/27/19 @ 19:57 by Salvatore Reyes DO) Mother Anxiety Bleeding disorder Depression Hypertension High cholesterol Cancer Father Diabetes Hypertension Grandfather Colon cancer Diabetes Heart disease Family History: Reports: Hypertension Review of Systems General: Denies: Chills, Fever, Sweats Cardiovascular: Denies: Chest pain, Palpitations Respiratory: Denies: Dyspnea, Cough Gastrointestinal: Reports: Abdominal pain. Denies: Nausea, Vomiting, Diarrhea, Hematochezia Genitourinary: Denies: Dysuria, Hematuria Musculoskeletal: Denies: Neck pain, Back pain, Swelling, Extremity Pain Skin: Reports: Wounds. Denies: Abscess Neurological: Denies: Headache, Weakness, Numbness Physical Exam Vital Signs/Narrative: Vital Signs Temp Pulse Resp BP Pulse Ox 04/03/19 10:36 97 F L 86 16 164/109 H 100 04/03/19 10:18 97 F L 86 16 164/109 H 100 Inital Vital Signs reviewed: Yes General: Well nourished, Well developed, Obese, No Acute Distress Head: Normocephalic, Atraumatic Eyes: Perrl, EOMI ENT: Moist mucous membranes, No rhinorrhea Neck: Supple, Nontender Abdomen: Soft, Nondistended, Normal bowel sounds, Tender - Throughout area of wound, lower abdomen, which is a large area, progressing into the area of the mons pubis. Extremities: Nontender, No edema Skin: Normal color, - - Large open wound lower abdomen/pelvis. Large areas of subcutaneous fat exposed, there are a couple of areas at the superior aspect of the wound edges that do have some areas of necrosis-appearance, but there is no friable tissue, just globules of fat with some black tissue around them in small amounts. Much of the wound is weeping blood but not actively bleeding. There is granulation tissue and many areas of it, nothing that clearly looks purulent. The wound edges do not appear cellulitic. Although it is quite painful to manipulate, there are no indurated areas around the wound edges. There are wound gutters that are difficult to evaluate due to this. Neurological: Alert, Oriented x3, Cranial nerves II-XII grossly intact, Normal Strength, Normal Sensation, Normal Gait Psychological: Normal affect, Normal Mood Diagnostic/Tx/Re-eval Laboratory Tests 04/03/19 04/03/19 Range/Units 12:15 12:15 WBC 10.9 (4.4-11.0) K/mm3 RBC 5.04 (4.2-5.4) M/mm3 Hgb 12.1 (12.0-15.0) g/dL Hct 39.3 (37-47) % MCV 78.0 L (81-99) fL MCH 24.0 L (27.0-32.0) pg MCHC 30.8 L (32-36) g/dL RDW Std Deviation 61.8 H (35.1-43.9) fl RDW Coeff of Andrez 22.7 H (11.6-14.6) % Plt Count 527 H (150-450) K/mm3 MPV 10.2 (6.2-12.0) fl Immature Gran % (Auto) 1.000 H (0.0-0.9) % Neut % (Auto) 79.7 H (47-70) % Lymph % (Auto) 10.8 L (19-41) % [place] % (Auto) 6.9 (0-10) % Eos % (Auto) 0.9 (0-5) % Baso % (Auto) 0.7 (0-1) % Absolute Neuts (auto) 8.6 H (2.0-7.7) X10^3/uL Absolute Lymphs (auto) 1.17 (0.83-4.51) X10^3/uL Nucleated RBC % 0 (0-5) % Sodium 142 (136-145) mmol/L Potassium 3.3 L (3.5-5.1) mmol/L Chloride 106 (98-107) mmol/L Carbon Dioxide 29.0 (21.0-32.0) mmol/L Anion Gap 7 (5-15) BUN 8 (7-18) mg/dL Creatinine 0.74 (0.55-1.02) mg/dL Estim Creat Clear Calc 101.23 ml/min Est GFR (MDRD) Af Amer 116 (>60) mL/min Est GFR (MDRD) Non-Af 96 (>60) mL/min BUN/Creatinine Ratio 10.8 (10-20) RATIO Glucose 89 (74-106) mg/dL Calcium 9.3 (8.5-10.1) mg/dL - Medical Decision Making I discussed with Dr. Mendieta who came and looked at the patient's wound. He reassured us, the black areas are from electrocautery intraoperatively last week. There are no new areas of fat necrosis. Patient will continue her metronidazole and analgesics as needed, she was treated here with analgesics, her blood tests are very reassuring, and she will follow-up and perform wound care as before. ED Disposition - Plan for ED Patient: Disposition: Home or Assisted Living Diagnosis: Postoperative pain, Encounter for postoperative wound check Instructions: POST OP WOUND CHECK, Pain Referrals: Gigi Mendieta MD [STAFF PHYSICIAN] - Keep Tamanna appointment
[2019-04-03 12:07] VITALS: BP 164/100; PULSE 79; RESP 16; TEMP 37.1; O2SAT 100
[2019-04-03] MEDS: HYDROmorphone 1 MG/ML Syringe 2 MG IV (12:09)
[2019-04-03 12:23] VITALS: RESP 16
[2019-04-03 12:25] LABS: Absolute Lymphocyte Count 1.17 X10^3/uL (0.83-4.51); Absolute Neutrophil Count 8.6 X10^3/uL (2.0-7.7); Basophil# 0.08 X10^3/uL; Basophil% 0.7 % (0-1); Eosinophils% 0.9 % (0-5); Hematocrit 39.3 % (37-47); Hemoglobin 12.1 g/dL (12.0-15.0); Lymphocyte # 1.17 X10^3/ul (4.0); Lymphocyte % 10.8 % (19-41); Mean Corp Hgb Conc 30.8 g/dL (32-36); Mean Platelet Vol. 10.2 fl (6.2-12.0); Monocyte# 0.75 X10^3/uL; Monocyte% 6.9 % (0-10); NRBC Flagged by Analyzer 0 % (0-5); Neutrophil # 8.64 X10^3/uL (2.7-7.7); Neutrophil % 79.7 % (47-70); POSITIVE COUNT YES; POSITIVE MORPHOLOGY YES; Platelet Count 527 K/mm3 (150-450); RBC Distribution Width CV 22.7 % (11.6-14.6); RBC Distribution Width SD 61.8 fl (35.1-43.9); Red Blood Count 5.04 M/mm3 (4.2-5.4); White Blood Count 10.9 K/mm3 (4.4-11.0)
[2019-04-03 12:27] LABS: Differential Indicated SCAN CRITERIA MET
[2019-04-03 12:50] LABS: Anion Gap 7 (5-15); BUN 8 mg/dL (7-18); BUN/Creat Ratio 10.8 RATIO (10-20); Calcium,Total 9.3 mg/dL (8.5-10.1); Chloride 106 mmol/L (98-107); Creatinine, Serum 0.74 mg/dL (0.55-1.02); EST Glomerular Filtration Rate 96 mL/min (>60); Est Glom Filt Rate - Afr Amer 116 mL/min (>60); Estimated Creatinine Clearance 101.23 ml/min; Glucose 89 mg/dL (74-106); Potassium 3.3 mmol/L (3.5-5.1); Sodium Level 142 mmol/L (136-145)
[2019-04-03 13:00] VITALS: TEMP 37
[2019-04-03 13:08] LABS: Anisocytosis 1+; Platelet Morphology LARGE
[2019-04-03] MEDS: HYDROmorphone 1 MG/ML Syringe IV (13:13)
[2019-04-03 13:41] VITALS: BP 151/91; PULSE 86; RESP 16; TEMP 37; O2SAT 94
--- NOTE | 2019-04-03 20:08 | PCM.PN.BLA ---
Progress Note Patient had surgery 03/28/19 where she underwent surgical preparation lower anterior abdominal wall with incision and drainage and excisional debridement skin, subcutaneous tissue, and fascia necrotizing soft tissue infection abscess (660 cm2). Postop wound was started with Dakin's dressing changes. Operative culture showed Pseudomonas aeroginosa and Anaerobic cocci. She is currently on Levaquin and Flagyl. She was discharged from the hospital on 03/30/19. She states that she fell over her cat yesterday which led to increased pain. Today the Home Health nurse was concerned about the wound and the patient came to the ED for evaluation. I came down and examined the wound. The wound is clean with beginnings of granulation tissue. Some black tissue present at the skin edges are from cautery from the surgery. The surrounding skin is soft. Minimal fat necrosis is present in different areas of the wound but there is no odor as compared to her situation last week at the time of surgery. That should improve with continued wound care and debridements at the Wound Center. WBC was normal at 10.9. Hgb was 12.1. Reassured the patient that there is no need for admission at this time. She should continue the wound care with Dakin's dressing changes with the assist of Home Health. She should continue her Levaquin and Flagyl. Continue the abdominal binder. She has appointment at the Wound Center next 04/10/19. Patient voiced understanding and is in agreement with this plan of treatment.
== END 2019-04-03 13:42 | disposition home or self-care (01) ==
PROVIDERS: Emergency Provider Emergency Medicine; Family Provider Family Medicine; PCP Family Medicine
DX: Z48.00 Encounter for change or removal of nonsurgical wound dressing (principal); G89.18 Other acute postprocedural pain; Z98.84 Bariatric surgery status; I10 Essential (primary) hypertension; Z82.49 Family history of ischemic heart disease and other diseases of the circulatory system; Z88.5 Allergy status to narcotic agent; Z88.6 Allergy status to analgesic agent; Z88.8 Allergy status to other drugs, medicaments and biological substances; Z90.49 Acquired absence of other specified parts of digestive tract; Z86.14 Personal history of Methicillin resistant Staphylococcus aureus infection
CPT/HCPCS: 36415; 80048; 85025; 96374; 96376; 99285; A4216

== ENCOUNTER 2019-04-10 09:15 | Outpatient (RCR) | payer MEDICAID, SELFPAY ==
[2019-03-13 11:59] VITALS: BMI 36.4
[2019-03-27 10:49] VITALS: BP 157/91; PULSE 109; RESP 18; TEMP 36.6
--- NOTE | 2019-03-27 14:47 | PCM.WC.PN ---
(1) Nonhealing surgical wound Status: Acute Current Visit: Yes Code(s): T81.89XA - Other complications of procedures, not elsewhere classified, initial encounter Comment: umbilical wound (2) Local infection of the skin and subcutaneous tissue, unspecified Status: Acute Current Visit: Yes Code(s): L08.9 - Local infection of the skin and subcutaneous tissue, unspecified (3) Open wound anterior abdominal wall Status: Acute Current Visit: Yes Code(s): S31.109A - Unspecified open wound of abdominal wall, unspecified quadrant without penetration into peritoneal cavity, initial encounter Type of Wound Date of Service: 03/27/19 Chief Complaint: Opened wound of lower abdomen after drainage of infected seroma History of Wound: Patient had surgery on 02/21/19 where she underwent surgical preparation vulva involving mons pubis with excisional debridement painful infected skin graft scar contour deformity and reconstruction with abdominal wall advancement skin flap (215 cm2) and complex secondary wound closure. Postoperatively she developed some necrosis in the umbilical area with subsequent drainage. Also a portion of the distal skin flap in the pubic area developed some compromise with skin necrosis. After local debridement in the office, wound care was started with Dakin's solution dressing changes. Wound cultures were done and she was started on Levaquin. The wound cultures were positive for MRSE and Staphylococcus aureus. There was persistent drainage from the wounds and wound care has been difficult at home. Recommend operative intervention with surgical preparation abdominal wall and vulva involving mons pubis with incision and drainage and excisional debridement necrotic infected abdominal wall seroma. Postop op wound care will be with the VAC. Will treat perioperatively with Vancomycin. She was taken to surgery today 03/13/19 and underwent surgical preparation abdominal wall area with incision and drainage and excisional debridement necrotic infected seroma including umbilicus (182 cm2) and surgical preparation vulva involving the mons pubis area with incision and drainage and excisional debridement necrotic infected seroma (52 cm). She tolerated the procedure well. The VAC was applied the next day. She had increased pain with the VAC. She was treated perioperatively with Vancomycin because of her preop cultures that showed MRSE and Staphylococcus aureus. Prealbumin was 11.1. Encourage nutritional supplementation with protein to help the healing process. Alkaline Phosphatase was 137. This is an improvement from 180 a couple of weeks ago. She will followup with her PCP for further evaluation if it stays elevated. Patient has anemia of chronic disease, acute on chronic. Her Hgb preop was 8.6 and decreased to 6.9 after the operative debridement. She received 2 units PRBC and her Hgb improved to 8.2 at discharge. There was minimal blood loss at surgery (50 ml) and there was no bleeding postop. The anemia is not due to acute blood loss. The anemia of chronic disease, acute on chronic, was due to IV dilution as her I's/O's were positive about 4 liters after the surgery. Her PCP has evaluated her anemia. He has her on Vitamin B12 injections. On the 3rd postop day, the VAC was changed and she was discharged home. Operative culture showed Actinomyces odontolyticus and Staphylococcus simulans (Methicillin resistant). Anaerobic cultures were Provetella melaninogenica and she was started on Flagyl. Today she comes in with a strong odor with the wound VAC on. After the wound VAC was removed she is having a significant amount of pain and has fat necrosis on the left side. She refuses to have any type of debridement done. Sent her to the ED after speaking to Dr. Mendieta. Progress of Wound: Strong odor and fat necrosis. - Physical Exam Vital Signs Temp Pulse Resp BP 97.9 F 109 H 18 157/91 H 03/27/19 10:49 03/27/19 10:49 03/27/19 10:49 03/27/19 10:49 General: Alert, Oriented x3 HEENT: Atraumatic Oral: Moist Mucosa Lungs: Normal air movement Cardiovascular: Regular rate Abdomen: Obese Extremities: Capillary Refill Less than 3 Seconds Skin: Ulcer/ Wound - Lower abdominal/pubic area Wound Measurements and Assessment WC - Nurse 1 - General Ulcer Measurement Start: 03/27/19 10:38 Freq: Status: Active Protocol: Activity Type Activity Date Activity User E-Sign Co-Sign Detail Recorded Client Recorded Date Recorded By Document 03/27/19 10:49 DV [id number] 03/27/19 11:14 DV 03/27/19 10:49 Wound Center Nurse 1 [Ulcer Assessment] #2 Lower Mid Abdomen -Combined with other wound No -Current Size (cm) - Length 12.0 -Current Size (cm) - Width 13.5 -Current Size (cm) - Depth 5.0 -Total Square Cm 162.00 -Photo Taken Yes -Epithelialization None Present -Tunneling No -Undermining/Tunneling No -Circular Undermining No -Exudate Amt Large -Exudate Type Serosanguineous -Wound Margin Indistinct, Non -Visible -Granulation Amt Large (67-100%) -Granulation Quality Red -Slough/Fibrin Yes -Necrosis Amt Large (67-100%) -Necrotic Tissue Type Adherent Slough -Structure Exposed Fascia,Fat Layer Exposed, None/Limited to Skin Breakdown -Texture ([place]-wound Skin Appearance) Assessed -Moisture ([place]-wound Skin Appearance Assessed ) -Color ([place]-wound Skin Appearance) Assessed -Temperature ([place]-wound Skin No Abnormality Appearance) (Pt Warm) -Tenderness on Palpation ([place]-wound Yes Skin Appearance) -Ulcer Cleansing Wound Cleanser -Foul Odor after Cleansing Yes -Anesthetic Used 4% Lidocaine Solution - Nurse 2 - General Ulcer Notes Start: 03/27/19 10:38 Freq: Status: Active Protocol: Activity Type Activity Date Activity User E-Sign Co-Sign Detail Recorded Client Recorded Date Recorded By Document 03/27/19 12:13 [id number] 03/27/19 12:13 03/27/19 12:13 Wound Center Nurse 2 [Procedure/Treatment] -Correct Patient No -Correct Side, Site, Position No -Correct Procedure No -Procedure Performed No -Wound/Ulcer Outcome Not Healed [See Physician Procedure note for Specifics] Pain Scale: 0-10 Numeric [Pain] -Is Patient Pain Free? Yes Musculoskeletal: No Tenderness to Palpation of Joints or Extremities Neurological: Neuro grossly intact Psych/Mental Status: Normal Affect Debridement Note Post-Debridement Measurements/Treatment - Nurse 2 - General Ulcer Notes Start: 03/27/19 10:38 Freq: Status: Active Protocol: Activity Type Activity Date Activity User E-Sign Co-Sign Detail Recorded Client Recorded Date Recorded By Document 03/27/19 12:13 [id number] [id number] 03/27/19 12:13 03/27/19 12:13 Wound Center Nurse 2 #2 Lower Mid Abdomen -Correct Patient No -Correct Side, Site, Position No -Correct Procedure No -Procedure Performed No -Wound/Ulcer Outcome Not Healed Pain Scale: 0-10 Numeric Is Patient Pain Free? Yes No debridement was completed today Assessment/Plan Active Problems (Last Reviewed 03/14/19 @ 18:02 by Gigi Mendieta MD) Local infection of the skin and subcutaneous tissue, unspecified (Acute) Skin necrosis (Acute) Nonhealing surgical wound (Acute) umbilical wound Open wound anterior abdominal wall (Acute) Assessment: 1. Nonhealing surgical wound. 2. Local infection of skin and subcutaneous tissue. 3. Opened wound anterior abdominal wall. 4. History of weight loss from gastric bypass. Plan: She comes in today with increased odor and pain of wound. She has significant amount of fat necrosis of her left side with tunneling. Unable to get an accurate depth and unable to debride because patient refused to allow to have wound debrided. Spoke with Dr. Mendieta and will send patient to the ED for further evaulation due to the increased pain and odor and drainage of her lower abdominal wound. Will hold wound VAC and do wet to dry dressing until after she is evaluated in the ED. Code Visit [id number]
[2019-04-10 09:18] VITALS: BP 166/86; PULSE 107; RESP 16; TEMP 36.3; BMI 36.4
--- NOTE | 2019-04-10 17:35 | PCM.WC.PN ---
Type of Wound Date of Service: 04/10/19 Chief Complaint: Open surgical wound anterior abdominal wall and vulva. History of Wound: Surgery 03/28/19 - Surgical preparation lower anterior abdominal wall with incision and drainage and excisional debridement skin, subcutaneous tissue, and fascia necrotizing soft tissue infection abscess (660 cm2). Surgery 03/13/19 - Surgical preparation abdominal wall area with incision and drainage and excisional debridement necrotic infected seroma including umbilicus (182 cm2) and surgical preparation vulva involving the mons pubis area with incision and drainage and excisional debridement necrotic infected seroma (52 cm). Surgery 02/21/19 - Surgical preparation vulva involving mons pubis with excisional debridement painful infected skin graft scar contour deformity and reconstruction with abdominal wall advancement skin flap (215 cm2) and complex secondary wound closure. Wound care - Dakin's. Operative culture - Pseudomonas aeroginosa, Methicillin resistant Staphylococcus haemolyticus, Staphylococcus hominis hominis, and Anaerobic cocci. She is currently on Levaquin and Flagyl and is finishing the Flagyl. Prealbumin from 03/28/19 was 9.3. Encourage nutritional supplementation with protein to help the healing process. 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 Today she denies fever. Her appetite is ok. Progress of Wound: Improved. - Physical Exam Vital Signs Temp Pulse Resp BP 97.3 F L 107 H 16 166/86 H 04/10/19 09:18 04/10/19 09:18 04/10/19 09:18 04/10/19 09:18 Wound Measurements and Assessment WC - Nurse 1 - General Ulcer Measurement Start: 03/27/19 10:38 Freq: Status: Active Protocol: Activity Type Activity Date Activity User E-Sign Co-Sign Detail Recorded Client Recorded Date Recorded By Document 04/10/19 09:18 [facility] [id number] 04/10/19 09:27 [facility] 04/10/19 09:18 Wound Center Nurse 1 [Ulcer Assessment] #2 Lower Mid Abdomen -Combined with other wound No -Current Size (cm) - Length 11.0 -Current Size (cm) - Width 30.4 -Current Size (cm) - Depth 3.7 -Total Square Cm 334.40 -Photo Taken No -Epithelialization None Present -Tunneling No -Undermining/Tunneling No -Circular Undermining No -Exudate Amt Large -Exudate Type Serosanguineous -Wound Margin Distinct, Outline Attached -Granulation Amt Large (67-100%) -Granulation Quality Red -Slough/Fibrin Yes -Necrosis Amt Small (1-33%) -Necrotic Tissue Type Adherent Slough -Structure Exposed N/A -Texture (Catrachita-wound Skin Appearance) Assessed, Scarring -Moisture (Catrachita-wound Skin Appearance No Abnormality, ) Assessed -Color (Catrachita-wound Skin Appearance) No Abnormality, Assessed -Temperature (Catrachita-wound Skin No Abnormality Appearance) (Pt Warm) -Tenderness on Palpation (Catrachita-wound Yes Skin Appearance) -Ulcer Cleansing soap and water -Foul Odor after Cleansing No -Anesthetic Used 4% Lidocaine Solution [Edema Assessment] -Lower Limb Edema Present No Debridement Note Post-Debridement Measurements/Treatment WC - Nurse 2 - General Ulcer CM Notes Start: 03/27/19 10:38 Freq: Status: Active Protocol: Activity Type Activity Date Activity User E-Sign Co-Sign Detail Recorded Client Recorded Date Recorded By Document 03/27/19 12:13 [id number] 03/27/19 12:13 [email or web address] 03/27/19 12:13 Wound Center Nurse 2 #2 Lower Mid Abdomen -Correct Patient No -Correct Side, Site, Position No -Correct Procedure No -Procedure Performed No -Wound/Ulcer Outcome Not Healed Pain Scale: 0-10 Numeric Is Patient Pain Free? Yes Wound debrided: #2 Lower anterior abdominal wall and vulva. Laterality: Not Applicable Wound Grade/Stage: 2. No debridement was completed today - she had recent surgery 03/28/19. Assessment/Plan Assessment: 1. Open surgical wound anterior abdominal wall and vulva. 2. Infected abdominal wall and vulval wound involving the mons pubis with foul smelling drainage suspicious of abscess. 3. Necrotizing soft tissue infection. 4. 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 5. 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 Plan: Continue Dakin's dressing changes daily. Continue Levaquin and Flagyl for Pseudomonas aeroginosa, Methicillin resistant Staphylococcus haemolyticus, Staphylococcus hominis hominis, and Anaerobic cocci. Her Prealbumin from 03/28/19 was 9.3. Encourage nutritional supplementation with protein to help the healing process. 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 Continue abdominal binder. Followup one week. Code Visit 111xxx-113xx: [id number] Global Visit - ICD-10 - V58.49, T81.49xA, L02.211, S31.109A, M79.89, A49.8, R63.4, I89.0
== END 2019-04-21 23:59 ==
LOC: WC 09:15
PROVIDERS: Family Provider Family Medicine; PCP Family Medicine; Visit Provider Nurse Practitioner Family
DX: T81.49XA Infection following a procedure, other surgical site, initial encounter (principal); L08.89 Other specified local infections of the skin and subcutaneous tissue; I89.0 Lymphedema, not elsewhere classified; Z98.84 Bariatric surgery status
CPT/HCPCS: 99213; G0463

== ENCOUNTER 2019-04-12 09:41 | Emergency (ER) | payer MEDICAID, SELFPAY ==
[2019-04-12 09:41] VITALS: BMI 33.9
[2019-04-12 09:44] VITALS: BP 152/100; PULSE 91; RESP 16; TEMP 36.7; O2SAT 100; BMI 34.0
--- NOTE | 2019-04-12 10:07 | RAD_ITS ---
STUDY: X-RAY - UNILATERAL RIBS ( RIGHT ) WITH CHEST REASON FOR EXAM: Female, 34 years old. FELL, PAIN IN LOWER FRONT RIGHT SIDE OF RIBS. TECHNIQUE - RIBS: 4 view(s) of the ribs. TECHNIQUE - CHEST: Single PA view of the chest. COMPARISON: Comparison is made with prior chest radiograph dated April 12, 2018. FINDINGS - RIBS: Normal visualized ribs without a demonstrated fracture. FINDINGS - CHEST: The lungs are clear and expanded. There is no demonstrated pleural abnormality. Normal size heart. Normal mediastinum and kuldeep. Normal visualized pulmonary arteries. Normal visualized aortic arch and descending thoracic aorta. Normal visualized thoracic spine. Normal visualized ribs, clavicles, and shoulders. There is no demonstrated abnormality of the visualized soft tissue structures of the upper abdomen. RAD/Ribs Uni Min 3V w/PA Chest IMPRESSION: RIBS: Normal x-ray examination of the ribs. CHEST: Normal x-ray examination of the chest. Electronically Signed: Demetrius Brandon, at 11:00 EST , Service support ,
--- NOTE | 2019-04-12 11:18 | ED.DCSUM_ITS ---
- ER Visit Summary Date of Service: 04/12/19 Chief Complaint: Fall History of Present Illness: The patient is a [address] Bethel Jauregui and Dr. Mendieta. She reports that she tripped over her cat yesterday and fell onto the right lower chest. States that she has a sharp pains 10-10 at worst 9-10 currently. Is worsened by movement and straightening out. She is taking Tylenol without relief. She reports that she threw away her Dilaudid, Valium, and [place]. Patient saw Dr. jeffrey 2 days ago in the wound clinic for follow-up regarding a prior surgery. She is currently on Levaquin and Flagyl. She reports that she has green drainage from the area. However, this is unchanged. States she is be en nauseated vomited once. No blood in her emesis. She also complains of subjective fever and chills. Physical Examination: Vitals: Stable. Afebrile. General: Well-nourished and well-developed. Head: Normocephalic atraumatic. Neck: Supple, no lymphadenopathy. No JVD. Nontender. Cardiovascular: Regular rate and rhythm. No murmurs. Respiratory: No respiratory distress. Clear to auscultation bilaterally. Moderate tenderness palpation of the lower ribs on the right. She has no pain with anterior posterior compression of her chest. Abdominal: Soft, large wound to the lower abdomen and mons pubis with granulation tissue present. There is purulent drainage on the dressing. However no surrounding erythema, induration, or fluctuance, nondistended, normal bowel sounds. No guarding, rebound, or peritoneal signs. Back: Nontender. Extremities: Nontender, no edema. Skin: Normal color, no rash. Neurologic: Alert and oriented ?3. Cranial nerves II through XII are intact. Normal strength and sensation. Psych: Normal affect. Test Results: Clinical Impression(s) from Imaging Studies Ribs w/Chest X-Ray 04/12/19 10:07 IMPRESSION: RIBS: Normal x-ray examination of the ribs. CHEST: Normal x-ray examination of the chest. Electronically Signed: Demetrius Brandon, at 11:00 EST , Service support , Emergency Department Course and Treatment: An [facility] report was obtained which shows the patient has had frequent prescriptions for opiate-based medications. Her most recent one was 9 days ago by her primary care physician Dr. Bethel Jauregui. She got a prescription for 240 [place]. Patient reports to me that she threw these away. I had a very blunt conversation with her about the fact that I do not believe this, and that I suspect any other emergency department physician who does not have a relationship with her would not either. I suggested that she follow-up with her primary care physician or her surgeon, whom she has a relationship with, and tell them that she threw her medications away and see if they are comfortable refilling them. She was discussed with Dr. Mendieta, who reports that she also told him that she had thrown away her Dilaudid and Valium. He does not want her given any opiate- based medications. Treatment Plan: Patient will be discharged with instructions use Tylenol for pain. Follow-up with Dr. Mendieta as previously scheduled. Follow-up with Dr. Bethel Jauregui in 3 to 5 days if not improving. I did speak with case management as the patient clearly needs a care plan in the emergency department. Disposition: To home in improved and stable condition. Impression: 1. Follow-up. 2. Rib contusion. 3. Open abdominal wound. 4. Opiate seeking behavior. This note was generated with [employer] dictation software. It may contain incorrect words, spelling, and punctuation that were not noted in review of the chart prior to signing ED Disposition - Plan for ED Patient: Disposition: Home or Assisted Living Instructions: Rib Contusion Referrals: Bethel Jauregui III, MD [Primary Care Provider] - 1 Week if not improving Gigi Mendieta MD [STAFF PHYSICIAN] - As soon as possible
--- NOTE | 2019-04-12 11:22 | ED.RN ---
DR FUENTES WENT IN AND DISCUSSED THE PTS PAIN MEDICATION REPORT. PT FILLED A SCRIPT FOR 240 TABS 9 DAYS AGO. PT STATES SHE THREW TEM AWAY. DR FUENTES STATED PT WOULD NOT BE RECEIVING ANY PAIN MEDS AND SHE COULD F/U WITH DR PAGE OR DR DIAZ. PT VERBALIZED NDERSTANDING.
[2019-04-12 11:25] VITALS: BP 126/84; PULSE 79; RESP 16; O2SAT 97
--- NOTE | 2019-04-12 11:30 | CM.ED ---
SOCIAL WORK INFORMANT: DR. FUENTES REASON FOR REFERRAL: ED CARE PLAN UPDATED BY DR. FUENTES AFTER PATIENT DISCHARGED FROM EMERGENCY DEPARTMENT THAT PATIENT NEEDING WORK UP FOR ED CARE PLAN. WILL REVIEW. Marlene TSE MSW, FLOORWORKER DISTRIBUTOR.
== END 2019-04-12 11:26 | disposition home or self-care (01) ==
LOC: ED 10:30
PROVIDERS: Emergency Provider Emergency Medicine; PCP Family Medicine
DX: S31.109A Unspecified open wound of abdominal wall, unspecified quadrant without penetration into peritoneal cavity, initial encounter (principal); W01.0XXA Fall on same level from slipping, tripping and stumbling without subsequent striking against object, initial encounter; S20.219A Contusion of unspecified front wall of thorax, initial encounter; Z76.5 Malingerer [conscious simulation]; I10 Essential (primary) hypertension; Z87.442 Personal history of urinary calculi
CPT/HCPCS: 71101; 99282

== ENCOUNTER 2019-05-15 08:30 | Outpatient (RCR) | payer MEDICAID, SELFPAY ==
[2019-04-22 01:04] VITALS: BP 166/86; PULSE 107; RESP 16; TEMP 36.3
[2019-04-24 08:39] VITALS: BP 161/97; PULSE 111; RESP 20; TEMP 36.7; BMI 34.0
--- NOTE | 2019-04-24 14:54 | PCM.WC.PN ---
(1) Open wound anterior abdominal wall Status: Chronic Code(s): S31.109A - Unspecified open wound of abdominal wall, unspecified quadrant without penetration into peritoneal cavity, initial encounter (2) Pseudomonas aeruginosa infection Status: Chronic Code(s): A49.8 - Other bacterial infections of unspecified site Type of Wound Date of Service: 04/24/19 Chief Complaint: Open surgical wound anterior abdominal wall and vulva. History of Wound: Surgery 03/28/19 - Surgical preparation lower anterior abdominal wall with incision and drainage and excisional debridement skin, subcutaneous tissue, and fascia necrotizing soft tissue infection abscess (660 cm2). Surgery 03/13/19 - Surgical preparation abdominal wall area with incision and drainage and excisional debridement necrotic infected seroma including umbilicus (182 cm2) and surgical preparation vulva involving the mons pubis area with incision and drainage and excisional debridement necrotic infected seroma (52 cm). Surgery 02/21/19 - Surgical preparation vulva involving mons pubis with excisional debridement painful infected skin graft scar contour deformity and reconstruction with abdominal wall advancement skin flap (215 cm2) and complex secondary wound closure. Wound care - Dakin's. Operative culture - Pseudomonas aeroginosa, Methicillin resistant Staphylococcus haemolyticus, Staphylococcus hominis hominis, and Anaerobic cocci. She is currently on Levaquin and Flagyl and is finishing the Flagyl. Prealbumin from 03/28/19 was 9.3. Encourage nutritional supplementation with protein to help the healing process. 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 Today she denies fever. Her appetite is ok. Progress of Wound: Stable. - Physical Exam Vital Signs Temp Pulse Resp BP 98.1 F 111 H 20 H 161/97 H 04/24/19 08:39 04/24/19 08:39 04/24/19 08:39 04/24/19 08:39 General: Alert, Oriented x3, Cooperative HEENT: Atraumatic Oral: Moist Mucosa Lungs: Normal air movement Cardiovascular: Regular rate Abdomen: Soft, Tender Extremities: Capillary Refill Less than 3 Seconds Skin: Ulcer/ Wound - Abdominal ulcer Wound Measurements and Assessment WC - Nurse 1 - General Ulcer Measurement Start: 04/24/19 08:20 Freq: Status: Active Protocol: Activity Type Activity Date Activity User E-Sign Co-Sign Detail Recorded Client Recorded Date Recorded By Document 04/24/19 08:39 DL [id number] 04/24/19 08:49 DL 04/24/19 08:39 Wound Center Nurse 1 [Ulcer Assessment] #2 Lower Mid Abdomen -Current Size (cm) - Length 9 -Current Size (cm) - Width 25.6 -Current Size (cm) - Depth 3.9 -Total Square Cm 230.4 -Undermining/Tunneling Starts (O' 10 clock) -Undermining/Tunneling Ends (O'clock) 2 -Maximum Distance (cm) 8 -Exudate Amt Medium -Exudate Type Serosanguineous -Wound Margin Distinct, Outline Attached -Granulation Amt Large (67-100%) -Granulation Quality Red -Necrosis Amt Small (1-33%) -Necrotic Tissue Type Adherent Slough -Structure Exposed N/A -Texture (Catrachita-wound Skin Appearance) Scarring -Moisture (Catrachita-wound Skin Appearance No Abnormality ) -Color (Catrachita-wound Skin Appearance) No Abnormality -Temperature (Catrachita-wound Skin No Abnormality Appearance) (Pt Warm) -Tenderness on Palpation (Catrachita-wound No Skin Appearance) -Ulcer Cleansing Wound Cleanser -Foul Odor after Cleansing No -Anesthetic Used 4% Lidocaine Solution WC - Nurse 2 - General Ulcer CM Notes Start: 04/24/19 08:20 Freq: Status: Active Protocol: Activity Type Activity Date Activity User E-Sign Co-Sign Detail Recorded Client Recorded Date Recorded By Document 04/24/19 09:09 [id number] 04/24/19 09:10 04/24/19 09:09 Wound Center Nurse 2 [Procedure/Treatment] -Time 09:09 -Correct Patient Yes -Correct Side, Site, Position Yes -Correct Procedure Yes -Procedure Performed Yes -Type of Procedure Debridement -Clinical Debridement Subcutaneous -Post Debridement Size (cm) - Length 9.1 -Post Debridement Size (cm) - Width 26 -Post Debridement Size (cm) - Depth 4.0 -Total Square Cm 236.6 -Wound/Ulcer Outcome Not Healed -Ulcer Cleansing Rinsed/ Irrigated with Saline -Foul Odor after Cleansing No -Bioengineered Tissue No -Bleeding Controlled with Pressure -Offloading No -Treatment Response Procedure Tolerated Well [See Physician Procedure note for Specifics] Pain Scale: 0-10 Numeric [Pain] -Is Patient Pain Free? Yes Musculoskeletal: No Tenderness to Palpation of Joints or Extremities Neurological: Neuro grossly intact Psych/Mental Status: Normal Affect, Appropriate Debridement Note Post-Debridement Measurements/Treatment WC - Nurse 2 - General Ulcer CM Notes Start: 04/24/19 08:20 Freq: Status: Active Protocol: Activity Type Activity Date Activity User E-Sign Co-Sign Detail Recorded Client Recorded Date Recorded By Document 04/24/19 09:09 [email or web address] [id number] 04/24/19 09:10 KULDEEP 04/24/19 09:09 Wound Center Nurse 2 #2 Lower Mid Abdomen -Time 09:09 -Correct Patient Yes -Correct Side, Site, Position Yes -Correct Procedure Yes -Procedure Performed Yes -Type of Procedure Debridement -Clinical Debridement Subcutaneous -Post Debridement Size (cm) - Length 9.1 -Post Debridement Size (cm) - Width 26 -Post Debridement Size (cm) - Depth 4.0 -Total Square Cm 236.6 -Wound/Ulcer Outcome Not Healed -Ulcer Cleansing Rinsed/ Irrigated with Saline -Foul Odor after Cleansing No -Bioengineered Tissue No -Bleeding Controlled with Pressure -Offloading No -Treatment Response Procedure Tolerated Well Pain Scale: 0-10 Numeric Is Patient Pain Free? Yes Wound debrided: lower abdominal ulcer Type of Debridement: Excisional debridement Anesthesia Used: 4% Lidocaine Solution Depth: Down to and including healthy tissue, in the subcutaneous layer Percentage of wound debrided: 100 Instrument Used: 7mm curette Tissue Removed: Subcutaneous tissue and slough. Severity: Fat Layer Exposed Amount of bleeding with debridement: Mild Bleeding Controlled with: Pressure Patient did not tolerate procedure well It was not an aggressive debridment because she was having difficulty with pain during deridement. Assessment/Plan Assessment: 1. Open surgical wound anterior abdominal wall and vulva. 2. Infected abdominal wall and vulval wound involving the mons pubis with foul smelling drainage suspicious of abscess. 3. Necrotizing soft tissue infection. 4. 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 5. 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 Plan: Continue Dakin's dressing changes daily. This is being done daily by her home health agency [facility]. Continue Levaquin and Flagyl for Pseudomonas aeroginosa, Methicillin resistant Staphylococcus haemolyticus, Staphylococcus hominis hominis, and Anaerobic cocci. Her Prealbumin from 03/28/19 was 9.3. Encourage nutritional supplementation with protein to help the healing process. She is tolerating work. Continue abdominal binder. Followup three weeks. Her PCP, Dr. Angelo Jauregui, phoned to discuss with us that she tells him she is having a lot of pain. He has been prescribing her pain medication and states she has told him there has been issues with diversion of her meds because someone in her family is taking them. She states she has gotten rid of her pain meds and is only taking tylenol for pain. I told him that she was in a good mood today, states she was not having pain and today she seemed the most like herself since her surgery. She states she was handling work well. He states he will most likely not be giving her any futher pain medication because she does not seem to be truthful with him. Code Visit 111xxx-113xx: [id number] Global Visit
[2019-05-15 08:39] VITALS: BP 153/89; PULSE 85; RESP 16; TEMP 36.6; BMI 34.0
--- NOTE | 2019-05-15 10:10 | PN.PCM_ITS ---
(1) Skin ulcer of abdominal wall with fat layer exposed Status: Chronic Current Visit: Yes Code(s): L98.492 - Non-pressure chronic ulcer of skin of other sites with fat layer exposed (2) Pseudomonas aeruginosa infection Status: Chronic Current Visit: Yes Code(s): A49.8 - Other bacterial infections of unspecified site (3) Lymphedema of genitalia Status: Chronic Current Visit: Yes Code(s): I89.0 - Lymphedema, not elsewhere classified Type of Wound Date of Service: 05/15/19 Chief Complaint: Open surgical wound anterior abdominal wall and vulva. History of Wound: Surgery 03/28/19 - Surgical preparation lower anterior abdominal wall with incision and drainage and excisional debridement skin, subcutaneous tissue, and fascia necrotizing soft tissue infection abscess (660 cm2). Surgery 03/13/19 - Surgical preparation abdominal wall area with incision and drainage and excisional debridement necrotic infected seroma including umbilicus (182 cm2) and surgical preparation vulva involving the mons pubis area with incision and drainage and excisional debridement necrotic infected seroma (52 cm). Surgery 02/21/19 - Surgical preparation vulva involving mons pubis with excisional debridement painful infected skin graft scar contour deformity and reconstruction with abdominal wall advancement skin flap (215 cm2) and complex secondary wound closure. Wound care - Dakjayce's. Operative culture - Pseudomonas aeroginosa, Methicillin resistant Staphylococcus haemolyticus, Staphylococcus hominis hominis, and Anaerobic cocci. She is currently on Levaquin and Flagyl and is finishing the Flagyl. Prealbumin from 03/28/19 was 9.3. Encourage nutritional supplementation with protein to help the healing process. 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 Today she denies fever. Her appetite is ok. Progress of Wound: Improved. - Physical Exam Vital Signs Temp Pulse Resp BP 97.8 F 85 16 153/89 H 05/15/19 08:39 05/15/19 08:39 05/15/19 08:39 05/15/19 08:39 General: Alert, Oriented x3, Cooperative HEENT: Atraumatic Oral: Moist Mucosa Lungs: Normal air movement Cardiovascular: Regular rate Abdomen: Soft, Obese Extremities: No edema, Capillary Refill Less than 3 Seconds Skin: Ulcer/ Wound - lower abdominal ulcer Wound Measurements and Assessment WC - Nurse 1 - General Ulcer Measurement Start: 04/24/19 08:20 Freq: Status: Active Protocol: Activity Type Activity Date Activity User E-Sign Co-Sign Detail Recorded Client Recorded Date Recorded By Document 05/15/19 08:39 MW [id number] 05/15/19 08:41 MW 05/15/19 08:39 Wound Center Nurse 1 [Ulcer Assessment] #2 Lower Mid Abdomen -Combined with other wound No -Current Size (cm) - Length 8.0 -Current Size (cm) - Width 19.0 -Current Size (cm) - Depth 1.0 -Total Square Cm 152.00 -Date of Last Picture (Recall this 05/15/19 field) -Photo Taken Yes -Epithelialization Small 1-33% -Tunneling No -Undermining/Tunneling No -Circular Undermining No -Exudate Amt Large -Exudate Type Yellow/Green -Wound Margin Flat & Intact -Granulation Amt Large (67-100%) -Granulation Quality Red -Slough/Fibrin Yes -Necrosis Amt None Present (0 %) -Necrotic Tissue Type Adherent Slough -Structure Exposed N/A -Texture (Catrachita-wound Skin Appearance) Assessed, Scarring -Moisture (Catrachita-wound Skin Appearance No Abnormality, ) Assessed -Color (Catrachita-wound Skin Appearance) No Abnormality, Assessed -Temperature (Catrachita-wound Skin No Abnormality Appearance) (Pt Warm) -Tenderness on Palpation (Catrachita-wound No Skin Appearance) -Ulcer Cleansing soap and water -Foul Odor after Cleansing No -Anesthetic Used 4% Lidocaine Solution [Edema Assessment] -Lower Limb Edema Present No WC - Nurse 2 - General Ulcer CM Notes Start: 04/24/19 08:20 Freq: Status: Active Protocol: Activity Type Activity Date Activity User E-Sign Co-Sign Detail Recorded Client Recorded Date Recorded By Document 05/15/19 09:16 [id number] 05/15/19 09:17 JF 05/15/19 09:16 Wound Center Nurse 2 [Procedure/Treatment] #2 Lower Mid Abdomen -Time 09:16 -Correct Patient No -Correct Side, Site, Position No -Correct Procedure No -Procedure Performed No -Post Debridement Size (cm) - Length 8 -Post Debridement Size (cm) - Width 19.5 -Post Debridement Size (cm) - Depth 0.2 -Total Square Cm 156.0 -Wound/Ulcer Outcome Not Healed -Ulcer Cleansing Rinsed/ Irrigated with Saline -Foul Odor after Cleansing No -Bioengineered Tissue No -Bleeding Controlled with Pressure -Other undermining at noon 3.2cm -Offloading No -Treatment Response Procedure Tolerated Well [See Physician Procedure note for Specifics] Pain Scale: 0-10 Numeric [Pain] -Is Patient Pain Free? Yes Musculoskeletal: Tenderness Neurological: Neuro grossly intact Psych/Mental Status: Normal Affect, Appropriate Debridement Note Post-Debridement Measurements/Treatment WC - Nurse 2 - General Ulcer CM Notes Start: 04/24/19 08:20 Freq: Status: Active Protocol: Activity Type Activity Date Activity User E-Sign Co-Sign Detail Recorded Client Recorded Date Recorded By Document 04/24/19 09:09 [id number] 04/24/19 09:10 Document 05/15/19 09:16 [id number] 05/15/19 09:17 04/24/19 05/15/19 09:09 09:16 Wound Center Nurse 2 #2 Lower Mid Abdomen -Time 09:09 09:16 -Correct Patient Yes No -Correct Side, Site, Position Yes No -Correct Procedure Yes No -Procedure Performed Yes No -Type of Procedure Debridement -Clinical Debridement Subcutaneous -Post Debridement Size (cm) - Length 9.1 8 -Post Debridement Size (cm) - Width 26 19.5 -Post Debridement Size (cm) - Depth 4.0 0.2 -Total Square Cm 236.6 156.0 -Wound/Ulcer Outcome Not Healed Not Healed -Ulcer Cleansing Rinsed/ Rinsed/ Irrigated with Irrigated with Saline Saline -Foul Odor after Cleansing No No -Bioengineered Tissue No No -Bleeding Controlled with Pressure Pressure -Other undermining at noon 3.2cm -Offloading No No -Treatment Response Procedure Procedure Tolerated Well Tolerated Well Pain Scale: 0-10 Numeric Is Patient Pain Free? Yes Yes Wound debrided: Lower abdominal/pubic ulcer Laterality: Not Applicable Type of Debridement: Selective debridement Anesthesia Used: 4% Lidocaine Solution Percentage of wound debrided: 100 Tissue Removed: biofilm Amount of bleeding with debridement: None Patient refused to have subcutaneous debridement. Did a selective debridement with moistened gauze to help remove some of the biofilm. Assessment/Plan Active Problems (Last Reviewed 03/27/19 @ 19:[address] Salvatore Reyes, DO) Skin ulcer of abdominal wall with fat layer exposed (Chronic) Open wound anterior abdominal wall (Chronic) Pseudomonas aeruginosa infection (Chronic) Abdominal wall abscess (Acute) Abdominal wall abscess at site of surgical wound (Acute) Lymphedema of genitalia (Chronic) Assessment: 1. Open surgical wound anterior abdominal wall and vulva. 2. Infected abdominal wall and vulval wound involving the mons pubis with foul smelling drainage suspicious of abscess. 3. Necrotizing soft tissue infection. 4. 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 5. 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 Plan: Continue Dakjayce's dressing changes daily. This is being done daily by her home health agency [facility]. She feels she is able to start doing some of her dressing changes. We will cut her home health back to 3 times a week. Continue Levaquin and Flagyl for Pseudomonas aeroginosa, Methicillin resistant Staphylococcus haemolyticus, Staphylococcus hominis hominis, and Anaerobic cocci. Her Prealbumin from 03/28/19 was 9.3. Encourage nutritional supplementation with protein to help the healing process. She is tolerating work. Continue abdominal binder. Followup two weeks. Code Visit [id number]: [id number] Global Visit
== END 2019-05-20 23:59 ==
LOC: WC 08:30
PROVIDERS: Family Provider Family Medicine; PCP Family Medicine; Visit Provider Nurse Practitioner Family
DX: T81.49XA Infection following a procedure, other surgical site, initial encounter (principal); L08.89 Other specified local infections of the skin and subcutaneous tissue; I89.0 Lymphedema, not elsewhere classified; Z98.84 Bariatric surgery status; B96.5 Pseudomonas (aeruginosa) (mallei) (pseudomallei) as the cause of diseases classified elsewhere
CPT/HCPCS: 11042; 11045; 99213; G0463

== ENCOUNTER 2019-05-31 18:03 | Emergency (ER) | payer MEDICAID, SELFPAY ==
[2019-05-29 08:26] VITALS: BMI 34.0
[2019-05-31 18:04] VITALS: BP 170/107; PULSE 107; RESP 20; TEMP 37.2; O2SAT 98; BMI 32.7
[2019-05-31 19:00] VITALS: BP 187/117
[2019-05-31 19:37] LABS: Absolute Lymphocyte Count 1.61 X10^3/uL (0.83-4.51); Absolute Neutrophil Count 2.8 X10^3/uL (2.0-7.7); Basophil# 0.03 X10^3/uL; Basophil% 0.6 % (0-1); Eosinophil# 0.07 X10^3/uL; Eosinophils% 1.4 % (0-5); Hematocrit 36.8 % (37-47); Hemoglobin 11.1 g/dL (12.0-15.0); Lymphocyte # 1.61 X10^3/ul (4.0); Lymphocyte % 32.5 % (19-41); Mean Corp Hgb Conc 30.2 g/dL (32-36); Mean Corpuscular Hgb 25.5 pg (27.0-32.0); Mean Corpuscular Volume 84.4 fL (81-99); Mean Platelet Vol. 10.6 fl (6.2-12.0); Monocyte# 0.47 X10^3/uL; Monocyte% 9.5 % (0-10); NRBC Flagged by Analyzer 0 % (0-5); Neutrophil # 2.75 X10^3/uL (2.7-7.7); Neutrophil % 55.6 % (47-70); Platelet Count 421 K/mm3 (150-450); RBC Distribution Width CV 17.5 % (11.6-14.6); RBC Distribution Width SD 53.9 fl (35.1-43.9); Red Blood Count 4.36 M/mm3 (4.2-5.4)
[2019-05-31 20:04] LABS: Anion Gap 8 (5-15); BUN 8 mg/dL (7-18); BUN/Creat Ratio 13.9 RATIO (10-20); Calcium,Total 8.9 mg/dL (8.5-10.1); Chloride 106 mmol/L (98-107); Creatinine, Serum 0.58 mg/dL (0.55-1.02); EST Glomerular Filtration Rate 128 mL/min (>60); Est Glom Filt Rate - Afr Amer 155 mL/min (>60); Estimated Creatinine Clearance 129.15 ml/min; Glucose 74 mg/dL (74-106); Potassium 3.8 mmol/L (3.5-5.1); Sodium Level 139 mmol/L (136-145)
--- NOTE | 2019-05-31 20:47 | CM.ED ---
Social Work Consult: ED Care Plan Informant: Dr. Winters Patient currently pending ED Care Plan approval. Met with patient in room. Introduced self as well as executive secretary social welfare role. Patient educated on ED Care Plan program and that patient is pending approval for a care plan. Patient voicing understanding to this. Patient stating that patient home health care nurse recommended for patient to come to the ED this evening. Patient stating to have half-way services daily through [facility] for wound care. Patient stating to also follow with the wound center bi-weekly on . Patient stating to currently live with patient mother, who also has health complications. Patient stating to be working full-time at [employer]. Completed CONSUELO-7 anxiety screening tool per pending ED Care Plan recommendations, patient scoring zero stating to have no anxiety. Patient stating to believe that patient has needed supports in the community. Patient stating to not need pain management services as patient is not in pain that much. Patient is reporting to take low level dose of [place] but only some days. Patient stating to not be able to take NSAID's due to medical history. Active listening and support provided. Patient voicing no needs or concerns. Patient updated that the ED executive secretary social welfare will be in contact with patient in regards to ED Care Plan. This executive secretary social welfare confirming patient address and phone number as listed on chart. Will continue to follow as needed. Danica AHUMADA, SHAHRIAR
--- NOTE | 2019-05-31 20:56 | ED.DCSUM_ITS ---
- ER Visit Summary Date of Service: 05/31/19 Chief Complaint: Wound infection History of Present Illness: The patient is a [address] Bethel Jauregui iii and Dr. Mendieta. She had surgery in February with a large debridement of her lower abdomen and mons pubis area. She has had difficult time with wound h ealing. She states that she was seen in the wound clinic 2 days ago. There were 2 spots that looks discolored that they debrided. She states that since that time she has developed an odor to the area and drainage of green slime. She states she had a fever to 100.3 degrees. She denies any nausea or vomiting. Physical Examination: Vitals: Stable. Afebrile. General: Well-nourished and well-developed. Head: Normocephalic atraumatic. Neck: Supple, no lymphadenopathy. No JVD. Nontender. Cardiovascular: Regular rate and rhythm. No murmurs. Respiratory: No respiratory distress. Clear to auscultation bilaterally. Abdominal: Soft, moderate tenderness to palpation surrounding her wound, nondistended, normal bowel sounds. No guarding, rebound, or peritoneal signs. Back: Nontender. Extremities: Nontender, no edema. Skin: Normal color, to the lower abdomen and mons pubis area there is a large wound with granulation tissue present. There is no necrotic tissue. There is no odor. There is a small amount of drainage.. Neurologic: Alert and oriented ?3. Cranial nerves II through XII are intact. Normal strength and sensation. Psych: Normal affect. Test Results: CBC shows an H&H of 11.1 36.8. Chem-7 is normal. Emergency Department Course and Treatment: I discussed the patient with Dr. Mendieta. He had placed her on Levaquin yesterday. He asked that she be given doxycycline for MRSA coverage. Wound cultures were obtained. The patient has had multiple different prescriptions for pain medications that she reports that she has thrown away. She is 2 months out from surgery. He does not think that she should be given opiate-based medications. I agree with this and do not feel comfortable giving them to her. Treatment Plan: Patient will be discharged instructions to follow-up the wound clinic in 2 days for another exam. Return to the emergency department for any worsening symptoms. Disposition: To home in improved and stable condition. Impression: 1. Lower abdominal wall wound. This note was generated with [employer] dictation software. It may contain incorrect words, spelling, and punctuation that were not noted in review of the chart prior to signing ED Disposition - Plan for ED Patient: Disposition: Home or Assisted Living Instructions: Caring for Your Wound Prescriptions: Doxycycline 100 mg PO BID #20 cap Prescription Printed Ondansetron [Zofran Odt] 4 mg PO Q8H PRN PRN #10 tab PRN Reason: Nausea Prescription Printed Referrals: Bethel Jauregui III, MD [Primary Care Provider] - Clinic,Wound [None] - 2 Days for wound check
[2019-05-31] MEDS: Doxycycline 100 MG CAPSULE PO (21:12)
[2019-05-31 21:15] VITALS: BP 167/87; PULSE 100; RESP 18; O2SAT 97
[2019-05-31 21:31] LABS: M R Staph aureus DNA By PCR Negative (Negative); Probe Check PASS; Specimen Processing Control PASS; Staph aureus DNA By PCR NEGATIVE (Negative)
--- NOTE | 2019-06-05 12:38 | CM.ED ---
SOCIAL WORK CALL TO PATIENT TO UPDATE ON ED CARE PLAN AND INFORMED COPY OF PLAN ALONG WITH RESOURCES TO BE MAILED OUT THIS DATE. PATIENT VERBALIZED UNDERSTANDING. CALL TO DR. DIAZ'S OFFICE TO UPDATE ON CARE PLAN. COPY OF CARE PLAN FAXED. Marlene TSE MSW, ADULT PROTECTIVE CASEWORKER.
== END 2019-05-31 21:16 | disposition home or self-care (01) ==
LOC: ED 19:25
PROVIDERS: Emergency Provider Emergency Medicine; PCP Family Medicine
DX: T81.49XA Infection following a procedure, other surgical site, initial encounter (principal); B99.9 Unspecified infectious disease; Y83.8 Other surgical procedures as the cause of abnormal reaction of the patient, or of later complication, without mention of misadventure at the time of the procedure; Y92.9 Unspecified place or not applicable; J02.9 Acute pharyngitis, unspecified; R05 Cough; I10 Essential (primary) hypertension; Z87.442 Personal history of urinary calculi; Z90.49 Acquired absence of other specified parts of digestive tract; Z98.84 Bariatric surgery status
CPT/HCPCS: 80048; 85025; 87070; 87077; 87184; 87186; 87205; 87640; 96374; 99285; J7040; A4216; J2405

== ENCOUNTER 2019-06-12 08:00 | Outpatient (RCR) | payer MEDICAID, SELFPAY ==
[2019-05-21 00:47] VITALS: BP 153/89; PULSE 85; RESP 16; TEMP 36.6
[2019-05-29 08:26] VITALS: BP 159/103; PULSE 96; RESP 18; TEMP 35.7; BMI 34.0
--- NOTE | 2019-05-29 10:03 | PN.PCM_ITS ---
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 History of Wound: Surgery 03/28/19 - Surgical preparation lower anterior abdominal wall with incision and drainage and excisional debridement skin, subcutaneous tissue, and fascia necrotizing soft tissue infection abscess (660 cm2). Surgery 03/13/19 - Surgical preparation abdominal wall area with incision and drainage and excisional debridement necrotic infected seroma including umbilicus (182 cm2) and surgical preparation vulva involving the mons pubis area with incision and drainage and excisional debridement necrotic infected seroma (52 cm). Surgery 02/21/19 - Surgical preparation vulva involving mons pubis with excisional debridement painful infected skin graft scar contour deformity and reconstruction with abdominal wall advancement skin flap (215 cm2) and complex secondary wound closure. Wound care - Dakin's. Operative culture - Pseudomonas aeroginosa, Methicillin resistant Staphylococcus haemolyticus, Staphylococcus hominis hominis, and Anaerobic cocci. She is currently on Levaquin and Flagyl and is finishing the Flagyl. Prealbumin from 03/28/19 was 9.3. Encourage nutritional supplementation with protein to help the healing process. She has started back to work and is doing ok. Today she denies fever. Her appetite is ok. Progress of Wound: Improved. She does have 2 new blistered areas on either side of the open ulcer, suspect they are from pressure possibly caused from her her skin touches her clothing. - Physical Exam Vital Signs Temp Pulse Resp BP 96.2 F L 96 18 159/103 H 05/29/19 08:26 05/29/19 08:26 05/29/19 08:26 05/29/19 08:26 General: Alert, Oriented x3, Cooperative HEENT: Atraumatic Oral: Moist Mucosa Lungs: Normal air movement Cardiovascular: Regular rate Abdomen: Soft Extremities: Capillary Refill Less than 3 Seconds Skin: Ulcer/ Wound - Mid lower abdominal ulcer with 2 new areas of breakdown on either side of the open area. Wound Measurements and Assessment - Nurse 1 - General Ulcer Measurement Start: 05/29/19 08:26 Freq: Status: Active Protocol: Activity Type Activity Date Activity User E-Sign Co-Sign Detail Recorded Client Recorded Date Recorded By Document 05/29/19 08:26 [id number] 05/29/19 08:28 05/29/19 08:26 Wound Center Nurse 1 [Ulcer Assessment] #2 Lower Mid Abdomen -Combined with other wound No -Current Size (cm) - Length 8.0 -Current Size (cm) - Width 21.0 -Current Size (cm) - Depth 0.1 -Total Square Cm 168.00 -Photo Taken No -Epithelialization Small 1-33% -Tunneling No -Undermining/Tunneling No -Circular Undermining No -Exudate Amt Large -Exudate Type Yellow/Green -Wound Margin Flat & Intact -Granulation Amt Large (67-100%) -Granulation Quality Red -Slough/Fibrin Yes -Necrosis Amt Small (1-33%) -Necrotic Tissue Type Adherent Slough -Structure Exposed N/A -Texture (Catrachita-wound Skin Appearance) Assessed -Moisture (Catrachita-wound Skin Appearance Assessed,Dry/ ) Scaly -Color (Catrachita-wound Skin Appearance) Assessed -Temperature (Catrachita-wound Skin No Abnormality Appearance) (Pt Warm) -Tenderness on Palpation (Catrachita-wound No Skin Appearance) -Ulcer Cleansing Wound Cleanser -Foul Odor after Cleansing No -Anesthetic Used 4% Lidocaine Solution [Edema Assessment] -Lower Limb Edema Present NA WC - Nurse 2 - General Ulcer CM Notes Start: 05/29/19 08:26 Freq: Status: Active Protocol: Activity Type Activity Date Activity User E-Sign Co-Sign Detail Recorded Client Recorded Date Recorded By Document 05/29/19 09:06 [id number] 05/29/19 09:08 05/29/19 09:06 Wound Center Nurse 2 [Procedure/Treatment] #2 Lower Mid Abdomen -Time 09:07 -Correct Patient Yes -Correct Side, Site, Position Yes -Correct Procedure Yes -Procedure Performed Yes -Type of Procedure Debridement -Clinical Debridement Subcutaneous -Post Debridement Size (cm) - Length 10.0 -Post Debridement Size (cm) - Width 19.3 -Post Debridement Size (cm) - Depth 0.2 -Total Square Cm 193.00 -Wound/Ulcer Outcome Not Healed -Ulcer Cleansing Rinsed/ Irrigated with Saline -Foul Odor after Cleansing No -Bioengineered Tissue No -Bleeding Controlled with Pressure -Offloading No -Treatment Response Procedure Tolerated Well [See Physician Procedure note for Specifics] Pain Scale: 0-10 Numeric [Pain] -Is Patient Pain Free? Yes Musculoskeletal: No Tenderness to Palpation of Joints or Extremities Neurological: Neuro grossly intact Psych/Mental Status: Normal Affect, Appropriate Debridement Note Post-Debridement Measurements/Treatment WC - Nurse 2 - General Ulcer CM Notes Start: 05/29/19 08:26 Freq: Status: Active Protocol: Activity Type Activity Date Activity User E-Sign Co-Sign Detail Recorded Client Recorded Date Recorded By Document 05/29/19 09:06 [email or web address] [id number] 05/29/19 09:08 [email or web address] 05/29/19 09:06 Wound Center Nurse 2 #2 Lower Mid Abdomen -Time 09:07 -Correct Patient Yes -Correct Side, Site, Position Yes -Correct Procedure Yes -Procedure Performed Yes -Type of Procedure Debridement -Clinical Debridement Subcutaneous -Post Debridement Size (cm) - Length 10.0 -Post Debridement Size (cm) - Width 19.3 -Post Debridement Size (cm) - Depth 0.2 -Total Square Cm 193.00 -Wound/Ulcer Outcome Not Healed -Ulcer Cleansing Rinsed/ Irrigated with Saline -Foul Odor after Cleansing No -Bioengineered Tissue No -Bleeding Controlled with Pressure -Offloading No -Treatment Response Procedure Tolerated Well Pain Scale: 0-10 Numeric Is Patient Pain Free? Yes Wound debrided: Lower mid abdominal ulcer Type of Debridement: Excisional debridement Anesthesia Used: 5% Lidocaine Gel Depth: Down to and including healthy tissue, in the subcutaneous layer Percentage of wound debrided: 100 Instrument Used: 7mm curette Tissue Removed: Subcutaneous tissue and slough Severity: Fat Layer Exposed Amount of bleeding with debridement: Mild Bleeding Controlled with: Pressure Patient did not tolerate procedure well To new areas of breakdown on either side of open abdominal ulcer, difficult to debride due to patient not tolerating debridement. Assessment/Plan Active Problems (Last Reviewed 03/27/19 @ 19:[address] 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 Open surgical wound anterior abdominal wall and vulva. 2. Infected abdominal wall and vulval wound involving the mons pubis with foul smelling drainage suspicious of abscess. 3. Necrotizing soft tissue infection. 4. 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 5. 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 Plan: Continue Dakin's dressing changes daily. This is being done 3 times a week by her home health agency [facility]. She is able to do her dressing changes on the days that home health is not there. She has 2 new areas one on either side of lower abdominal ulcer that are discolored. Attempted to debride them but patient did not tolerate debridement well. Will apply Aquasol silver dressing today since she did not bring her Dakin's. Completed Levaquin and Flagyl for Pseudomonas aeroginosa, Methicillin resistant Staphylococcus haemolyticus, Staphylococcus hominis hominis, and Anaerobic cocci. Her Prealbumin from 03/28/19 was 9.3. Encourage nutritional supplementation with protein to help the healing process. She is tolerating work. Continue abdominal binder. Followup two weeks. [id number]: [id number] Global Visit
[2019-06-05 13:03] VITALS: BP 187/114; PULSE 129; RESP 16; TEMP 37.1; BMI 34.0
--- NOTE | 2019-06-05 13:10 | WC ---
VITALS RECHK- BP 191/104, PULSE 119 PER MONITOR. PT W/ INCREASED WOUND PAIN AND ANXIETY R/T WOUND. WILL UPDATE CM.
--- NOTE | 2019-06-05 14:32 | PN.PCM_ITS ---
(1) Skin ulcer of abdominal wall with fat layer exposed Status: Chronic Current Visit: Yes Code(s): L98.492 - Non-pressure chronic ulcer of skin of other sites with fat layer exposed (2) Pseudomonas aeruginosa infection Status: Chronic Current Visit: Yes Code(s): A49.8 - Other bacterial infections of unspecified site (3) Local infection of the skin and subcutaneous tissue, unspecified Status: Chronic Current Visit: Yes Code(s): L08.9 - Local infection of the skin and subcutaneous tissue, unspecified (4) Methicillin resistant Staphylococcus epidermidis infection Status: Chronic Current Visit: Yes Code(s): A49.8 - Other bacterial infections of unspecified site; Z16.29 - Resistance to other single specified antibiotic Type of Wound Date of Service: 06/05/19 Chief Complaint: Open surgical wound anterior abdominal wall and vulva. History of Wound: Surgery 03/28/19 - Surgical preparation lower anterior abdominal wall with incision and drainage and excisional debridement skin, subcutaneous tissue, and fascia necrotizing soft tissue infection abscess (660 cm2). Surgery 03/13/19 - Surgical preparation abdominal wall area with incision and drainage and excisional debridement necrotic infected seroma including umbilicus (182 cm2) and surgical preparation vulva involving the mons pubis area with incision and drainage and excisional debridement necrotic infected seroma (52 cm). Surgery 02/21/19 - Surgical preparation vulva involving mons pubis with excisional debridement painful infected skin graft scar contour deformity and reconstruction with abdominal wall advancement skin flap (215 cm2) and complex secondary wound closure. Wound care - Dakin's. Operative culture - Pseudomonas aeroginosa, Methicillin resistant Staphylococcus haemolyticus, Staphylococcus hominis hominis, and Anaerobic cocci. She is currently on Levaquin and Flagyl and is finishing the Flagyl. Prealbumin from 03/28/19 was 9.3. Encourage nutritional supplementation with protein to help the healing process. She has started back to work and is doing ok. Today she denies fever. Her appetite is ok. Progress of Wound: Stable. The two new areas from last week are now beefy pink. She is experiencing a lot of pain, especially in the proximal crease. She can not tolerate it being touched. - Physical Exam Vital Signs Temp Pulse Resp BP 98.8 F 129 H 16 187/114 H 06/05/19 13:03 06/05/19 13:03 06/05/19 13:03 06/05/19 13:03 General: Alert, Oriented x3 HEENT: Atraumatic Oral: Moist Mucosa Lungs: Normal air movement Cardiovascular: Regular rate Abdomen: Tender - at the wound site Extremities: No edema Skin: Ulcer/ Wound - Lower abdominal ulcer that is beefy pink. Very tender to light palpation, especially in the anterior crease of the ulcer. She continues to have a large amount of drainage. Wound Measurements and Assessment - Nurse 1 - General Ulcer Measurement Start: 05/29/19 08:26 Freq: Status: Active Protocol: Activity Type Activity Date Activity User E-Sign Co-Sign Detail Recorded Client Recorded Date Recorded By Document 06/05/19 13:03 [facility] [id number] 06/05/19 13:08 [facility] 06/05/19 13:03 Wound Center Nurse 1 [Ulcer Assessment] #2 Lower Mid Abdomen -Combined with other wound No -Current Size (cm) - Length 8 -Current Size (cm) - Width 18 -Current Size (cm) - Depth 0.1 -Total Square Cm 144 -Photo Taken No -Epithelialization Small 1-33% -Tunneling No -Undermining/Tunneling No -Circular Undermining No -Exudate Amt Medium -Exudate Type Serosanguineous -Wound Margin Distinct, Outline Attached -Granulation Amt Large (67-100%) -Granulation Quality Red -Slough/Fibrin Yes -Necrosis Amt Small (1-33%) -Necrotic Tissue Type Adherent Slough -Texture (Catrachita-wound Skin Appearance) Assessed, Scarring -Moisture (Catrachita-wound Skin Appearance Assessed ) -Color (Catrachita-wound Skin Appearance) Assessed -Temperature (Catrachita-wound Skin No Abnormality Appearance) (Pt Warm) -Tenderness on Palpation (Catrachita-wound Yes Skin Appearance) -Ulcer Cleansing soapy water -Foul Odor after Cleansing No -Anesthetic Used 4% Lidocaine Solution - Nurse 2 - General Ulcer CM Notes Start: 05/29/19 08:26 Freq: Status: Active Protocol: Activity Type Activity Date Activity User E-Sign Co-Sign Detail Recorded Client Recorded Date Recorded By Document 06/05/19 13:22 [id number] 06/05/19 13:26 06/05/19 13:22 Wound Center Nurse 2 [Procedure/Treatment] -Correct Patient No -Correct Side, Site, Position No -Correct Procedure No -Procedure Performed No -Wound/Ulcer Outcome Not Healed -Ulcer Cleansing Rinsed/ Irrigated with Saline -Foul Odor after Cleansing No -Bioengineered Tissue No -Bleeding Controlled with Pressure -Offloading No -Treatment Response Procedure Tolerated Well [See Physician Procedure note for Specifics] Pain Scale: 0-10 Numeric [Pain] -Is Patient Pain Free? Yes Musculoskeletal: No Tenderness to Palpation of Joints or Extremities Neurological: Neuro grossly intact Psych/Mental Status: Normal Affect, Appropriate Debridement Note Post-Debridement Measurements/Treatment WC - Nurse 2 - General Ulcer CM Notes Start: 05/29/19 08:26 Freq: Status: Active Protocol: Activity Type Activity Date Activity User E-Sign Co-Sign Detail Recorded Client Recorded Date Recorded By Document 05/29/19 09:06 [id number] 05/29/19 09:08 Document 06/05/19 13:22 [id number] 06/05/19 13:26 05/29/19 06/05/19 09:06 13:22 Wound Center Nurse 2 #2 Lower Mid Abdomen -Time 09:07 -Correct Patient Yes No -Correct Side, Site, Position Yes No -Correct Procedure Yes No -Procedure Performed Yes No -Type of Procedure Debridement -Clinical Debridement Subcutaneous -Post Debridement Size (cm) - Length 10.0 -Post Debridement Size (cm) - Width 19.3 -Post Debridement Size (cm) - Depth 0.2 -Total Square Cm 193.00 -Wound/Ulcer Outcome Not Healed Not Healed -Ulcer Cleansing Rinsed/ Rinsed/ Irrigated with Irrigated with Saline Saline -Foul Odor after Cleansing No No -Bioengineered Tissue No No -Bleeding Controlled with Pressure Pressure -Offloading No No -Treatment Response Procedure Procedure Tolerated Well Tolerated Well Pain Scale: 0-10 Numeric Is Patient Pain Free? Yes Yes No debridement was completed today - Patient refused to have any debridement done today. Assessment/Plan Active Problems (Last Reviewed 03/27/19 @ 19:[address] 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 Open surgical wound anterior abdominal wall and vulva. 2. Infected abdominal wall and vulval wound involving the mons pubis with foul smelling drainage suspicious of abscess. 3. Necrotizing soft tissue infection. 4. 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 5. 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 Plan: Started Acetic Acid 1/4 strength moistened gauzedressing changes instead of Dakin's solution last week because of the pseudomonas in her wound. She is having a large amount of drainage and requireds her secondary dressing to be ABD pads and to secure with Medipore tape. She would benefit from Karamax dressings but her insurance most likely would not supply her with the amount she would need for her drainage volume. Her dressing change is being done 3 times a week by her home health agency [facility]. Wound culture from 05/31/2019 positive for Pseudomonas aeroginosa and Corynebacterium striatum. Will stop her Levaquin because it is resistant and start her on Cipro and Augmentin (since the ED did not do an anaerobic culture, the Augmentin will cover that and the Corynebacterium). She is still on Doxycycline from the ED which she will also finish up. Instructed her to eat yogurt daily since she states she can not afford a probiotic. Completed Levaquin and Flagyl for Pseudomonas aeroginosa, Methicillin resistant Staphylococcus haemolyticus, Staphylococcus hominis hominis, and Anaerobic cocci. Her Prealbumin from 03/28/19 was 9.3. Encourage nutritional supplementation with protein to help the healing process. She is not working because her employer states she has an infected wound and does not want her working at this time. Continue abdominal binder. Followup one week. Office Visits / Consults: [id number] OV L3 Est
[2019-06-12 08:20] VITALS: BP 170/118; PULSE 93; RESP 18; TEMP 36.8; BMI 34.0
--- NOTE | 2019-06-12 17:17 | PN.PCM_ITS ---
Type of Wound Date of Service: 06/12/19 Chief Complaint: Nonhealing ulcer anterior abdominal wall and vulva. History of Wound: Surgery 03/28/19 - Surgical preparation lower anterior abdominal wall with incision and drainage and excisional debridement skin, subcutaneous tissue, and fascia necrotizing soft tissue infection abscess (660 cm2). Surgery 03/13/19 - Surgical preparation abdominal wall area with incision and drainage and excisional debridement necrotic infected seroma including umbilicus (182 cm2) and surgical preparation vulva involving the mons pubis area with incision and drainage and excisional debridement necrotic infected seroma (52 cm). Surgery 02/21/19 - Surgical preparation vulva involving mons pubis with excisional debridement painful infected skin graft scar contour deformity and reconstruction with abdominal wall advancement skin flap (215 cm2) and complex secondary wound closure. Wound care - With the recent culture of Pseudomonas, the Dakin's was changed to Acetic acid. Wound culture from 05/31/19 showed Pseudomonas aeroginosa and Corynebacterium striatum. She was placed on Cipro and Augmentin. Operative culture from 03/28/19 showed Pseudomonas aeroginosa and Anaerobic cocci. Wound culture the day before the surgery on 03/27/19 showed Pseudomonas aeroginosa, Methicillin resistant Staphylococcus haemolyticus, and Staphylococcus hominis hominis. She was placed on Levaquin and Flagyl and finished them. Prealbumin from 03/28/19 was 9.3. Encourage nutritional supplementation with protein to help the healing process. She went back to work and was doing ok. She is temporarily laid off because of the Coronavirus until her ulcer has healed. Today she denies fever. Her appetite is ok. Progress of Wound: Improved. - Physical Exam Vital Signs Temp Pulse Resp BP 98.2 F 93 18 170/118 H 06/12/19 08:20 06/12/19 08:20 06/12/19 08:20 06/12/19 08:20 General: Alert, Oriented x3 HEENT: PERRLA, EOMI Oral: Moist Mucosa Neck: Supple Lungs: Clear to auscultation Cardiovascular: Regular rate, Regular Rhythm Abdomen: Soft, Non-Distended Skin: Ulcer/ Wound - abdominal wall ulcer and vulval ulcer is clean with good granulation tissue present. Some tenderness superiorly. No drainage noted. Wound Measurements and Assessment WC - Nurse 1 - General Ulcer Measurement Start: 05/29/19 08:26 Freq: Status: Active Protocol: Activity Type Activity Date Activity User E-Sign Co-Sign Detail Recorded Client Recorded Date Recorded By Document 06/12/19 08:20 [id number] 06/12/19 08:23 06/12/19 08:20 Wound Center Nurse 1 [Ulcer Assessment] #2 Lower Mid Abdomen -Combined with other wound No -Current Size (cm) - Length 8.5 -Current Size (cm) - Width 18.0 -Current Size (cm) - Depth 0.1 -Total Square Cm 153.00 -Photo Taken No -Epithelialization Small 1-33% -Tunneling No -Undermining/Tunneling No -Circular Undermining No -Classification - Thickness Full Thickness without Exposed Support Structure -Exudate Amt Large -Exudate Type Serosanguineous -Wound Margin Flat & Intact -Granulation Amt Large (67-100%) -Granulation Quality Red -Slough/Fibrin Yes -Necrosis Amt Medium (34-66%) -Necrotic Tissue Type Adherent Slough -Texture (Catrachita-wound Skin Appearance) Assessed, Scarring -Moisture (Catrachita-wound Skin Appearance Assessed, ) Weeping -Color (Catrachita-wound Skin Appearance) No Abnormality, Assessed -Temperature (Catrachita-wound Skin No Abnormality Appearance) (Pt Warm) -Foul Odor after Cleansing No -Anesthetic Used 4% Lidocaine Solution - Nurse 2 - General Ulcer CM Notes Start: 05/29/19 08:26 Freq: Status: Active Protocol: Activity Type Activity Date Activity User E-Sign Co-Sign Detail Recorded Client Recorded Date Recorded By Document 06/12/19 08:57 [id number] 06/12/19 08:58 06/12/19 08:57 Wound Center Nurse 2 [Procedure/Treatment] -Correct Patient No -Correct Side, Site, Position No -Correct Procedure No -Procedure Performed No -Wound/Ulcer Outcome Not Healed -Offloading No [See Physician Procedure note for Specifics] Pain Scale: 0-10 Numeric [Pain] -Is Patient Pain Free? Yes Neurological: Cranial nerves II-XII grossly intact Psych/Mental Status: Normal Affect, Appropriate Debridement Note Post-Debridement Measurements/Treatment - Nurse 2 - General Ulcer CM Notes Start: 05/29/19 08:26 Freq: Status: Active Protocol: Activity Type Activity Date Activity User E-Sign Co-Sign Detail Recorded Client Recorded Date Recorded By Document 05/29/19 09:06 [id number] 05/29/19 09:08 Document 06/05/19 13:22 [id number] 06/05/19 13:26 Document 06/12/19 08:57 [id number] 06/12/19 08:58 05/29/19 06/05/19 06/12/19 09:06 13:22 08:57 Wound Center Nurse 2 #2 Lower Mid Abdomen -Time 09:07 -Correct Patient Yes No No -Correct Side, Site, Position Yes No No -Correct Procedure Yes No No -Procedure Performed Yes No No -Type of Procedure Debridement -Clinical Debridement Subcutaneous -Post Debridement Size (cm) - Length 10.0 -Post Debridement Size (cm) - Width 19.3 -Post Debridement Size (cm) - Depth 0.2 -Total Square Cm 193.00 -Wound/Ulcer Outcome Not Healed Not Healed Not Healed -Ulcer Cleansing Rinsed/ Rinsed/ Irrigated with Irrigated with Saline Saline -Foul Odor after Cleansing No No -Bioengineered Tissue No No -Bleeding Controlled with Pressure Pressure -Offloading No No No -Treatment Response Procedure Procedure Tolerated Well Tolerated Well Pain Scale: 0-10 Numeric Is Patient Pain Free? Yes Yes Yes Wound debrided: #2 Lower anterior abdominal wall and vulva. Laterality: Not Applicable Wound Grade/Stage: 2. No debridement was completed today - Patient refused debridement today. Assessment/Plan Active Problems (Last Reviewed 03/27/19 @ 19:[address] 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 Nonhealing ulcer anterior abdominal wall and vulva. 2. 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 3. Pseudomonas infection. 4. 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 Plan: Continue Acetic Acid 1/4 strength moistened gauze dressing changes because of the Pseudomonas in the nonhealing ulcer. She is having a large amount of drainage and requires her secondary dressing to be ABD pads and to secure with Medipore tape. Her dressing change is being done 3 times a week by her home health agency [facility]. Wound culture from 05/31/2019 positive for Pseudomonas aeroginosa and Corynebacterium striatum. The Levaquin was stopped because it is resistant and she was placed on Cipro and Augmentin (since the ED did not do an anaerobic culture, the Augmentin will cover that and the Corynebacterium). She finished the Doxycycline from the ED. Instructed her to eat yogurt daily since she states she can not afford a probiotic. Her Prealbumin from 03/28/19 was 9.3. Encourage nutritional supplementation with protein to help the healing process. Continue abdominal binder. Followup one week. Office Visits / Consults: [id number] OV L3 Est - ICD-10 - L98.492, N76.6, A49.8, R63.4, I89.0
== END 2019-06-20 23:59 ==
LOC: WC 08:00
PROVIDERS: Family Provider Family Medicine; PCP Family Medicine; Visit Provider Nurse Practitioner Family
DX: T81.49XA Infection following a procedure, other surgical site, initial encounter (principal); Y83.8 Other surgical procedures as the cause of abnormal reaction of the patient, or of later complication, without mention of misadventure at the time of the procedure; L08.89 Other specified local infections of the skin and subcutaneous tissue; I89.0 Lymphedema, not elsewhere classified; Z98.84 Bariatric surgery status; B96.5 Pseudomonas (aeruginosa) (mallei) (pseudomallei) as the cause of diseases classified elsewhere; Z86.19 Personal history of other infectious and parasitic diseases
CPT/HCPCS: 11042; 11045; 99213; G0463

== ENCOUNTER 2019-07-17 14:00 | Outpatient (RCR) | payer MEDICAID, SELFPAY ==
[2019-06-21 00:37] VITALS: BP 170/118; PULSE 93; RESP 18; TEMP 36.8; BMI 32.7
--- NOTE | 2019-07-03 11:00 | PN.PCM_ITS ---
(1) Skin ulcer of abdominal wall with fat layer exposed Status: Chronic Current Visit: Yes Code(s): L98.492 - Non-pressure chronic ulcer of skin of other sites with fat layer exposed (2) Pseudomonas aeruginosa infection Status: Chronic Current Visit: Yes Code(s): A49.8 - Other bacterial infections of unspecified site Type of Wound Date of Service: 07/03/19 - Telehealth Visit Chief Complaint: Nonhealing ulcer anterior abdominal wall and vulva. History of Wound: Surgery 03/28/19 - Surgical preparation lower anterior abdominal wall with incision and drainage and excisional debridement skin, subcutaneous tissue, and fascia necrotizing soft tissue infection abscess (660 cm2). Surgery 03/13/19 - Surgical preparation abdominal wall area with incision and drainage and excisional debridement necrotic infected seroma including umbilicus (182 cm2) and surgical preparation vulva involving the mons pubis area with incision and drainage and excisional debridement necrotic infected seroma (52 cm). Surgery 02/21/19 - Surgical preparation vulva involving mons pubis with excisional debridement painful infected skin graft scar contour deformity and reconstruction with abdominal wall advancement skin flap (215 cm2) and complex secondary wound closure. Wound care - Start daily Silver dressing changes. Wou nd culture from 05/31/19 showed Pseudomonas aeroginosa and Corynebacterium striatum. She was placed on Cipro and Augmentin. Operative culture from 03/28/19 showed Pseudomonas aeroginosa and Anaerobic cocci. Wound culture the day before the surgery on 03/27/19 showed Pseudomonas aeroginosa, Methicillin resistant Staphylococcus haemolyticus, and Staphylococcus hominis hominis. She was placed on Levaquin and Flagyl and finished them. Prealbumin from 03/28/19 was 9.3. Encourage nutritional supplementation with protein to help the healing process. She went back to work and was doing ok. She is temporarily laid off because of the Coronavirus until her ulcer has healed. Today she denies fever. Her appetite is ok. Progress of Wound: Improved. - Physical Exam Vital Signs Temp Pulse Resp BP 98.2 F 93 18 170/118 H 06/21/19 00:37 06/21/19 00:37 06/21/19 00:37 06/21/19 00:37 General: Alert, Oriented x3, Cooperative HEENT: Atraumatic Lungs: Normal air movement Skin: Ulcer/ Wound - Lower abdomen/pubic area ulcer is pink with good granulation tissue Neurological: Neuro grossly intact Psych/Mental Status: Normal Affect, Appropriate Debridement Note No debridement was completed today - Telehealth visit Assessment/Plan Active Problems (Last Reviewed 03/27/19 @ 19:[address] Salvatore Reyes, DO) Skin ulcer of abdominal wall with fat layer exposed (Chronic) Pseudomonas aeruginosa infection (Chronic) Assessment: 1. Nonhealing ulcer anterior abdominal wall and vulva. 2. 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 3. Pseudomonas infection. 4. 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 Plan: This was a Telehealth evaluation during the Covid-19 National Emergency. Obtained verbal consent. The only changes in the medication is she has completed her Cipro and Augmentin. Will not refill those at this time. She had a home health visit yesterday and her home health nurse gave her the measurements of 6 x 14.5 x 1.9. She states she has been alternating between the Acetic acid moistened gauze and Silver dressing that she has at home. She states that her drainage has decreased. Will switch her wound care to strictly daily Silver dressing changes topped with ABD and secured with Medipore tape. Her dressing change is being done 3 times a week by her home health agency [facility]. Wound culture from 05/31/2019 positive for Pseudomonas aeroginosa and Corynebacterium striatum. The Levaquin was stopped because it is resistant and she was placed on Cipro and Augmentin (since the ED did not do an anaerobic culture, the Augmentin will cover that and the Corynebacterium). She has completed all her antibiotics. Instructed her to eat yogurt daily since she states she can not afford a probiotic. Her Prealbumin from 03/28/19 was 9.3. Encourage nutritional supplementation with protein to help the healing process. Continue abdominal binder. Followup two weeks. Would like her to to come in to be seen, but am willing to do another telehealth visit as needed. Time spent with patient was 12 minutes. Time spent charting and planning care 12 minutes for a total time of 24 minutes. - TeleMed TeleMed: TeleMed Modifer 95 Office Visits / Consults: [id number] OV L3 Est - Telemedicine visit of 24 minutes total
--- NOTE | 2019-07-17 15:45 | PCM.WC.PN ---
(1) Skin ulcer of abdominal wall with fat layer exposed Status: Chronic Code(s): L98.492 - Non-pressure chronic ulcer of skin of other sites with fat layer exposed (2) Pseudomonas aeruginosa infection Status: Chronic Code(s): A49.8 - Other bacterial infections of unspecified site Type of Wound Date of Service: 07/17/19 Chief Complaint: Nonhealing ulcer anterior abdominal wall and vulva. History of Wound: Surgery 03/28/19 - Surgical preparation lower anterior abdominal wall with incision and drainage and excisional debridement skin, subcutaneous tissue, and fascia necrotizing soft tissue infection abscess (660 cm2). Surgery 03/13/19 - Surgical preparation abdominal wall area with incision and drainage and excisional debridement necrotic infected seroma including umbilicus (182 cm2) and surgical preparation vulva involving the mons pubis area with incision and drainage and excisional debridement necrotic infected seroma (52 cm). Surgery 02/21/19 - Surgical preparation vulva involving mons pubis with excisional debridement painful infected skin graft scar contour deformity and reconstruction with abdominal wall advancement skin flap (215 cm2) and complex secondary wound closure. Wound care - Start daily Silver dressing changes. Wound culture from 05/31/19 showed Pseudomonas aeroginosa and Corynebacterium striatum. She was placed on Cipro and Augmentin. Operative culture from 03/28/19 showed Pseudomonas aeroginosa and Anaerobic cocci. Wound culture the day before the surgery on 03/27/19 showed Pseudomonas aeroginosa, Methicillin resistant Staphylococcus haemolyticus, and Staphylococcus hominis hominis. She was placed on Levaquin and Flagyl and finished them. Prealbumin from 03/28/19 was 9.3. Encourage nutritional supplementation with protein to help the healing process. She went back to work and was doing ok. She is temporarily laid off because of the Coronavirus until her ulcer has healed. Today she denies fever. Her appetite is ok. Progress of Wound: Wound appears improved as best able to visualized with the limitations of telemedicine quality. - Physical Exam Vital Signs Temp Pulse Resp BP 98.2 F 93 18 170/118 H 06/21/19 00:37 06/21/19 00:37 06/21/19 00:37 06/21/19 00:37 General: Alert, Oriented x3, Cooperative HEENT: Atraumatic Oral: Moist Mucosa Skin: Ulcer/ Wound - Lower abdomen/pubic ulcer Psych/Mental Status: Normal Affect, Appropriate Debridement Note No debridement was completed today Assessment/Plan Assessment: 1. Nonhealing ulcer anterior abdominal wall and vulva. 2. 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 3. Pseudomonas infection. 4. 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 Plan: This was a Telehealth evaluation during the Covid-19 National Emergency. Obtained verbal consent The wound appears stable in comparison with her fingers. She will wash daily with soap and water and to wipe daily with Dakin's solution moistended gauze. Top with daily Silver dressing changes topped with ABD and secured with Medipore tape. She feels she is able to do her own dressing without issue so will discontinue her home health. Wound culture from 05/31/2019 positive for Pseudomonas aeroginosa and Corynebacterium striatum. The Levaquin was stopped because it is resistant and she was placed on Cipro and Augmentin (since the ED did not do an anaerobic culture, the Augmentin will cover that and the Corynebacterium). She has completed all her antibiotics. Instructed her to eat yogurt daily since she states she can not afford a probiotic. Her Prealbumin from 03/28/19 was 9.3. Encourage nutritional supplementation with protein to help the healing process. Continue abdominal binder. Followup one week in the clinic for a subcutaneous debridement. Time spent with patient was 13 minutes. Time spent charting and planning care 12 minutes for a total time of 25 minutes. Office Visits / Consults: [id number] L3 Est
== END 2019-07-20 23:59 ==
LOC: WC 14:00
PROVIDERS: Family Provider Family Medicine; PCP Family Medicine; Visit Provider Nurse Practitioner Family
DX: T81.49XA Infection following a procedure, other surgical site, initial encounter (principal); B96.5 Pseudomonas (aeruginosa) (mallei) (pseudomallei) as the cause of diseases classified elsewhere; Y83.8 Other surgical procedures as the cause of abnormal reaction of the patient, or of later complication, without mention of misadventure at the time of the procedure; L98.492 Non-pressure chronic ulcer of skin of other sites with fat layer exposed; I89.0 Lymphedema, not elsewhere classified; Z98.84 Bariatric surgery status

== ENCOUNTER 2019-07-31 08:25 | Outpatient (RCR) | payer MEDICAID, SELFPAY ==
[2019-06-21 00:37] VITALS: BMI 32.7
[2019-07-21 00:13] VITALS: BP 170/118; PULSE 93; RESP 18; TEMP 36.8
--- NOTE | 2019-07-26 17:00 | WC ---
José from patient's home health called to update me about patient's drainage stating it's green in color. No other symptoms noted, did discuss to the nurse that she has had this kind of drainage in the past. Continue doing same treatment. Patient had asked to decrease home health visits to 2x/week. Due to change in drainage, HH would like to go out daily to monitor wound. I told her she cancelled her Wednesday appt on 07/24/2019 where she was planning on getting her wound debrided since it hasn[t been debrided in awhile. José said she will encourage her to make her next appt for next Wednesday.
[2019-07-31 08:26] VITALS: BP 193/103; PULSE 99; RESP 20; TEMP 36.8; BMI 32.7
--- NOTE | 2019-07-31 13:03 | PN.PCM_ITS ---
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 History of Wound: Surgery 03/28/19 - Surgical preparation lower anterior abdominal wall with incision and drainage and excisional debridement skin, subcutaneous tissue, and fascia necrotizing soft tissue infection abscess (660 cm2). Surgery 03/13/19 - Surgical preparation abdominal wall area with incision and drainage and excisional debridement necrotic infected seroma including umbilicus (182 cm2) and surgical preparation vulva involving the mons pubis area with incision and drainage and excisional debridement necrotic infected seroma (52 cm). Surgery 02/21/19 - Surgical preparation vulva involving mons pubis with excisional debridement painful infected skin graft scar contour deformity and reconstruction with abdominal wall advancement skin flap (215 cm2) and complex secondary wound closure. Wound care - Rinse ulcer daily with Dakin's moistened guaze and then dress with Silver dressing changes. Wound culture from 05/31/19 showed Pseudomonas aeroginosa and Corynebacterium striatum. She was placed on Cipro and Augmentin. Operative culture from 03/28/19 showed Pseudomonas aeroginosa and Anaerobic cocci. Wound culture the day before the surgery on 03/27/19 showed Pseudomonas aeroginosa, Methicillin resistant Staphylococcus haemolyticus, and Staphylococcus hominis hominis. She was placed on Levaquin and Flagyl and finished them. Prealbumin from 03/28/19 was 9.3. Encourage nutritional supplementation with protein to help the healing process. She went back to work and was doing ok. She is temporarily laid off because of the Coronavirus until her ulcer has healed. Today she denies fever. Her appetite is ok. Progress of Wound: Improved. - Physical Exam Vital Signs Temp Pulse Resp BP 98.3 F 99 20 H 193/103 H 07/31/19 08:26 07/31/19 08:26 07/31/19 08:26 07/31/19 08:26 General: Alert, Oriented x3 HEENT: Atraumatic Oral: Moist Mucosa Lungs: Normal air movement Cardiovascular: Regular rate Abdomen: Soft, Tender - She is having issues with an ulcer at this time and having abdominal tenderness Extremities: No edema Skin: Ulcer/ Wound - Lower abdominal/pubic area ulcer, beefy pink but has some hypergranulation present. Wound Measurements and Assessment WC - Nurse 1 - General Ulcer Measurement Start: 07/31/19 08:26 Freq: Status: Active Protocol: Activity Type Activity Date Activity User E-Sign Co-Sign Detail Recorded Client Recorded Date Recorded By Document 07/31/19 08:26 MW [id number] 07/31/19 08:29 MW 07/31/19 08:26 Wound Center Nurse 1 [Ulcer Assessment] #2 Lower Mid Abdomen -Combined with other wound No -Current Size (cm) - Length 4.5 -Current Size (cm) - Width 6.0 -Current Size (cm) - Depth 0.1 -Total Square Cm 27.00 -Date of Last Picture (Recall this 07/31/19 field) -Photo Taken Yes -Epithelialization Medium 34-66% -Tunneling No -Circular Undermining No -Exudate Amt Medium -Exudate Type Serosanguineous -Wound Margin Flat & Intact -Granulation Amt Large (67-100%) -Granulation Quality [place] -Slough/Fibrin Yes -Necrosis Amt Small (1-33%) -Necrotic Tissue Type Adherent Slough -Structure Exposed N/A -Texture (Catrachita-wound Skin Appearance) Assessed, Localized Edema ,Scarring -Moisture (Catrachita-wound Skin Appearance No Abnormality, ) Assessed -Color (Catrachita-wound Skin Appearance) No Abnormality, Assessed -Temperature (Catrachita-wound Skin No Abnormality Appearance) (Pt Warm) -Tenderness on Palpation (Catrachita-wound Yes Skin Appearance) -Ulcer Cleansing Wound Cleanser -Foul Odor after Cleansing No -Anesthetic Used 5% Lidocaine Gel [Edema Assessment] -Lower Limb Edema Present No WC - Nurse 2 - General Ulcer CM Notes Start: 07/31/19 08:26 Freq: Status: Active Protocol: Activity Type Activity Date Activity User E-Sign Co-Sign Detail Recorded Client Recorded Date Recorded By Document 07/31/19 08:41 [email or web address] 07/31/19 08:43 07/31/19 08:41 Wound Center Nurse 2 [Procedure/Treatment] #2 Lower Mid Abdomen -Time 08:42 -Correct Patient Yes -Correct Side, Site, Position Yes -Correct Procedure Yes -Procedure Performed Yes -Type of Procedure Debridement -Clinical Debridement Subcutaneous -Post Debridement Size (cm) - Length 4.5 -Post Debridement Size (cm) - Width 4.0 -Post Debridement Size (cm) - Depth 0.2 -Total Square Cm 18.00 -Wound/Ulcer Outcome Not Healed -Ulcer Cleansing Rinsed/ Irrigated with Saline -Foul Odor after Cleansing No -Bioengineered Tissue No -Bleeding Controlled with Pressure -Offloading No -Treatment Response Procedure Tolerated Well [See Physician Procedure note for Specifics] Pain Scale: 0-10 Numeric [Pain] -Is Patient Pain Free? Yes Musculoskeletal: No Tenderness to Palpation of Joints or Extremities Neurological: Neuro grossly intact Psych/Mental Status: Normal Affect, Anxious Debridement Note Post-Debridement Measurements/Treatment WC - Nurse 2 - General Ulcer CM Notes Start: 07/31/19 08:26 Freq: Status: Active Protocol: Activity Type Activity Date Activity User E-Sign Co-Sign Detail Recorded Client Recorded Date Recorded By Document 07/31/19 08:41 [email or web address] 07/31/19 08:43 07/31/19 08:41 Wound Center Nurse 2 #2 Lower Mid Abdomen -Time 08:42 -Correct Patient Yes -Correct Side, Site, Position Yes -Correct Procedure Yes -Procedure Performed Yes -Type of Procedure Debridement -Clinical Debridement Subcutaneous -Post Debridement Size (cm) - Length 4.5 -Post Debridement Size (cm) - Width 4.0 -Post Debridement Size (cm) - Depth 0.2 -Total Square Cm 18.00 -Wound/Ulcer Outcome Not Healed -Ulcer Cleansing Rinsed/ Irrigated with Saline -Foul Odor after Cleansing No -Bioengineered Tissue No -Bleeding Controlled with Pressure -Offloading No -Treatment Response Procedure Tolerated Well Pain Scale: 0-10 Numeric Is Patient Pain Free? Yes Wound debrided: Lower mid abdomen/pubic area ulcer Type of Debridement: Excisional debridement Anesthesia Used: 5% Lidocaine Gel Depth: Down to and including healthy tissue, in the subcutaneous layer Percentage of wound debrided: 100 Instrument Used: 5mm curette Tissue Removed: Subcutaneous tissue and slough Severity: Fat Layer Exposed Amount of bleeding with debridement: Mild Bleeding Controlled with: Pressure Patient tolerated procedure well Assessment/Plan Assessment: 1. Nonhealing ulcer anterior abdominal wall and vulva. 2. 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 3. Pseudomonas infection. 4. 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 Plan: Patient was [facility] and [facility]. A subcutaneous debridement was performed, she had some difficulty with pain during the debridement. SHe had hypergranulation tissue present. Wound care: She will wash daily with soap and water and to wipe daily with Dakin's solution moistended gauze then apply Silver dressing to the ulcer, top with ABD or guaze and secured with Medipore tape. She feels she is able to do her own dressing without issue so will decrease her home health to once a week and prn. Today she is having abdominal pain from an ulcer that is being managed by Dr. Amaury Jauregui. He started her on Protonix and Carafate over the past couple days. Wound culture from 05/31/2019 positive for Pseudomonas aeroginosa and Corynebacterium striatum. The Levaquin was stopped because it is resistant and she was placed on Cipro and Augmentin (since the ED did not do an anaerobic culture, the Augmentin will cover that and the Corynebacterium). She has completed all her antibiotics. Instructed her to eat yogurt daily since she states she can not afford a probiotic. Her Prealbumin from 03/28/19 was 9.3. Encourage nutritional supplementation with protein to help the healing process. Continue abdominal binder. Followup 3 weeks. [id number]: [id number] Fay subq tissue 20 sq cm/<
== END 2019-08-20 23:59 ==
LOC: WC 08:25
PROVIDERS: Family Provider Family Medicine; PCP Family Medicine; Visit Provider Nurse Practitioner Family
DX: T81.49XA Infection following a procedure, other surgical site, initial encounter (principal); B96.5 Pseudomonas (aeruginosa) (mallei) (pseudomallei) as the cause of diseases classified elsewhere; Y83.8 Other surgical procedures as the cause of abnormal reaction of the patient, or of later complication, without mention of misadventure at the time of the procedure; L98.492 Non-pressure chronic ulcer of skin of other sites with fat layer exposed; L08.9 Local infection of the skin and subcutaneous tissue, unspecified; B95.7 Other staphylococcus as the cause of diseases classified elsewhere; Z16.11 Resistance to penicillins; I89.0 Lymphedema, not elsewhere classified; Z98.84 Bariatric surgery status
CPT/HCPCS: 11042

== ENCOUNTER 2019-08-03 09:35 | Emergency (ER) | payer MEDICAID, SELFPAY ==
[2019-08-03 09:36] VITALS: BP 177/135; PULSE 112; RESP 18; TEMP 36.2; O2SAT 100; BMI 32.3
--- NOTE | 2019-08-03 09:58 | ED.DCSUM_ITS ---
- ER Visit Summary Date of Service: 08/03/19 Chief Complaint: Abdominal pain History of Present Illness: The patient is a 34 F who presents with abdominal pain. She has had this pain for 8 days. She has a burning and sharp pain in her epigastric region. It does not radiate. Nothing makes it better or worse. She states that this morning she had vomiting with some blood streaks in it. She has had some dark stools as well. No urinary symptoms. She admits to having a history of gastric bypass surgery. She also has a history of stomach ulcers. She saw her PCP last week who gave her D Lo for her pain. She then followed up with surgery yesterday who recommended an EGD and colonoscopy. They put her on Carafate and Protonix. Physical Examination: Vital signs reviewed. HEENT exam unremarkable. Heart is tachycardic and regular rhythm without murmurs. Lungs are clear to auscultation. Abdomen is soft with epigastric tenderness. There is no guarding or rebound tenderness. Extremities reveal no edema. Skin exam normal. Neurologic exam normal. Test Results: Hemoglobin 11 which is above her baseline. Chemistries normal. Alkaline phosphatase 126, ALT 91. She has blood in her urine but she is on her menses currently. Emergency Department Course and Treatment: Patient was given a GI cocktail which she had no relief from. An NG tube was attempted to be placed to verify the hematemesis. She was unable to tolerate this. I doubt that there is significant bleeding as she has had no nausea or vomiting here in the last 3-1/2 hours. I then gave her Carafate and Protonix. I feel this is likely either an ulcer or gastritis. She needs to follow-up with surgery to get the outpatient EGD and colonoscopy that was already recommended. I see that she is on pantoprazole and Carafate at home. I will add Pepcid to see if this will help. She will need to be in contact with surgery for follow-up Treatment Plan: [] Disposition: Discharge Impression: Epigastric abdominal pain This note was generated with [employer] dictation software. It may contain incorrect words, spelling, and punctuation that were not noted in review of the chart prior to signing ED Disposition - Plan for ED Patient: Disposition: Home or Assisted Living Instructions: ED Abdominal Pain Unkn Cause Fem Prescriptions: Famotidine [Pepcid] 20 mg PO BID #28 tab Transmission Status: Pending to [facility] Referrals: Bethel Jauregui III, MD [Primary Care Provider] -
[2019-08-03] MEDS: Mag Hydrox/Al Hydrox/Simeth 30 ML UDC PO (10:09)
[2019-08-03 10:59] LABS: Absolute Lymphocyte Count 0.85 X10^3/uL (0.83-4.51); Absolute Neutrophil Count 3.1 X10^3/uL (2.0-7.7); Basophil# 0.05 X10^3/uL; Basophil% 1.1 % (0-1); Eosinophil# 0.12 X10^3/uL; Eosinophils% 2.6 % (0-5); Hematocrit 35.8 % (37-47); Lymphocyte # 0.85 X10^3/ul (4.0); Lymphocyte % 18.6 % (19-41); Mean Corp Hgb Conc 30.7 g/dL (32-36); Mean Corpuscular Hgb 23.8 pg (27.0-32.0); Mean Corpuscular Volume 77.3 fL (81-99); Mean Platelet Vol. 10.6 fl (6.2-12.0); Monocyte# 0.39 X10^3/uL; Monocyte% 8.6 % (0-10); NRBC Flagged by Analyzer 0 % (0-5); Neutrophil # 3.14 X10^3/uL (2.7-7.7); Neutrophil % 68.9 % (47-70); Platelet Count 368 K/mm3 (150-450); RBC Distribution Width SD 45.8 fl (35.1-43.9); Red Blood Count 4.63 M/mm3 (4.2-5.4); White Blood Count 4.6 K/mm3 (4.4-11.0)
[2019-08-03] MEDS: LORazepam 2 MG/ML Syringe 0.5 MG IV (11:02)
[2019-08-03] MEDS: Lidocaine 2% Jelly 1 APPLIC Tube TOPICAL (11:03)
[2019-08-03 11:05] LABS: AST(SGOT) 34 U/L (15-37); Alanine Aminotransfer ALT/SGPT 91 U/L (13-56); Albumin, Serum 3.7 g/dL (3.2-5.0); Alkaline Phosphatase 126 U/L (45-117); Anion Gap 5 (5-15); BUN 10 mg/dL (7-18); BUN/Creat Ratio 17.2 RATIO (10-20); Bilirubin, Direct 0.15 mg/dL (0.00-0.30); Chloride 107 mmol/L (98-107); Creatinine, Serum 0.58 mg/dL (0.55-1.02); EST Glomerular Filtration Rate 126 mL/min (>60); Est Glom Filt Rate - Afr Amer 153 mL/min (>60); Estimated Creatinine Clearance 129.15 ml/min; Globulin 3.6 g/dL (2.2-4.2); Glucose 90 mg/dL (74-106); Lipase 82 U/L (73-393); Potassium 3.6 mmol/L (3.5-5.1); Protein, Total 7.3 g/dL (6.4-8.2); Sodium Level 140 mmol/L (136-145)
[2019-08-03] MEDS: Oxymetazoline 0.05% 1 SPRAY SPRAY.BTL 2 SPRAY NASAL (11:54)
--- NOTE | 2019-08-03 12:26 | ED.RN ---
1130-unable to pass ng thru rt nor lt nares. dr. lam aware and will let rn transfer aware.
[2019-08-03 12:35] VITALS: BP 188/101; PULSE 79; RESP 16; O2SAT 97
[2019-08-03 12:41] LABS: Bacteria 0 SEEN /hpf (None Seen); Mucous, Urine 0 SEEN /hpf (<or=2+); Squamous Epithelial Cells - UA 0 SEEN /hpf (5-10); White Blood Cells 0 SEEN /hpf (0-5)
[2019-08-03 12:50] LABS: Color, Urine Red (Yellow); Glucose, Dipstick Normal (Normal); Ketone-Dipstick 5 mg/dl (Negative); Leukocyte Esterase-Dipstick Negative /ul (Negative); Nitrite-Dipstick Negative (Negative); Occult Blood-Urine 150 /ul (Negative); Protein-Dipstick 500 mg/dl (Negative); Urine Bilirubin Dipstick Negative (Negative); Urine Clarity Turbid (Clear); Urine Urobilinogen Normal (Normal); Urine pH 6.5 (5.0 - 8.0)
[2019-08-03] MEDS: Sucralfate 1 GM Tablet PO (13:00)
[2019-08-03 13:05] LABS: Red Blood Cells-Urine > 100 SEEN /hpf (0-5)
[2019-08-03 13:33] VITALS: BP 173/98; PULSE 99; RESP 16; O2SAT 99
== END 2019-08-03 13:34 | disposition home or self-care (01) ==
PROVIDERS: Emergency Provider Emergency Medicine; PCP Family Medicine
DX: R10.13 Epigastric pain (principal); R11.2 Nausea with vomiting, unspecified; Z98.84 Bariatric surgery status; Z72.0 Tobacco use
CPT/HCPCS: 74018; 80048; 80076; 81001; 83690; 85025; 96365; 96375; 99285; J7050; A4216

== ENCOUNTER → 2019-08-21 13:51 | Outpatient (CLI) | payer MEDICAID, SELFPAY ==
[2019-08-03 09:36] VITALS: BMI 32.3
== END ==
PROVIDERS: PCP Family Medicine; Referring Provider Surgery; Visit Provider Surgery
DX: Z11.59 Encounter for screening for other viral diseases (principal)
CPT/HCPCS: 87635; G2023; U0003

== ENCOUNTER 2019-08-28 08:22 | Outpatient (RCR) | payer MEDICAID, SELFPAY ==
[2019-08-21 00:25] VITALS: BP 193/103; PULSE 99; RESP 20; TEMP 36.8
[2019-08-28 08:20] VITALS: BP 192/96; PULSE 93; RESP 16; TEMP 36.5; BMI 32.3
--- NOTE | 2019-08-28 09:18 | PN.PCM_ITS ---
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 History of Wound: Surgery 03/28/19 - Surgical preparation lower anterior abdominal wall with incision and drainage and excisional debridement skin, subcutaneous tissue, and fascia necrotizing soft tissue infection abscess (660 cm2). Surgery 03/13/19 - Surgical preparation abdominal wall area with incision and drainage and excisional debridement necrotic infected seroma including umbilicus (182 cm2) and surgical preparation vulva involving the mons pubis area with incision and drainage and excisional debridement necrotic infected seroma (52 cm). Surgery 02/21/19 - Surgical preparation vulva involving mons pubis with excisional debridement painful infected skin graft scar contour deformity and reconstruction with abdominal wall advancement skin flap (215 cm2) and complex secondary wound closure. Wound care -Start collagen hydrogel covered by Adaptic and then topped with gauze daily. Wound culture from 05/31/19 showed Pseudomonas aeroginosa and Corynebacterium striatum. She was placed on Cipro and Augmentin. Operative culture from 03/28/19 showed Pseudomonas aeroginosa and Anaerobic cocci. Wound culture the day before the surgery on 03/27/19 showed Pseudomonas aeroginosa, Methicillin resistant Staphylococcus haemolyticus, and Staphylococcus hominis hominis. She was placed on Levaquin and Flagyl and finished them. Prealbumin from 03/28/19 was 9.3. Encourage nutritional supplementation with protein to help the healing process. She went back to work and was doing ok. She is temporarily laid off because of the Coronavirus until her ulcer has healed. Today she denies fever. Her appetite is ok. Progress of Wound: Improved. - Physical Exam Vital Signs Temp Pulse Resp BP 97.7 F L 93 16 192/96 H 08/28/19 08:20 08/28/19 08:20 08/28/19 08:20 08/28/19 08:20 General: Alert, Oriented x3, Cooperative HEENT: Atraumatic Oral: Moist Mucosa Lungs: Normal air movement Cardiovascular: Regular rate Abdomen: Soft Extremities: Capillary Refill Less than 3 Seconds Skin: Ulcer/ Wound - Lower abdominal/suprapubic ulcer. Ulcer is improving. Wound Measurements and Assessment - Nurse 1 - General Ulcer Measurement Start: 08/28/19 08:20 Freq: Status: Active Protocol: Activity Type Activity Date Activity User E-Sign Co-Sign Detail Recorded Client Recorded Date Recorded By Document 08/28/19 08:20 [id number] 08/28/19 08:25 [facility] 08/28/19 08:20 Wound Center Nurse 1 [Ulcer Assessment] #2 Lower Mid Abdomen -Combined with other wound No -Current Size (cm) - Length 3 -Current Size (cm) - Width 1.5 -Current Size (cm) - Depth 0.1 -Total Square Cm 4.5 -Date of Last Picture (Recall this 08/28/19 field) -Photo Taken Yes -Epithelialization Medium 34-66% -Tunneling No -Undermining/Tunneling No -Circular Undermining No -Exudate Amt Small -Exudate Type Serosanguineous -Wound Margin Distinct, Outline Attached -Granulation Amt Small (1-33%) -Granulation Quality Red -Slough/Fibrin Yes -Necrosis Amt Large (67-100%) -Necrotic Tissue Type Adherent Slough -Texture (Catrachita-wound Skin Appearance) Assessed, Scarring -Moisture (Catrachita-wound Skin Appearance Assessed,Dry/ ) Scaly -Color (Catrachita-wound Skin Appearance) Assessed -Temperature (Catrachita-wound Skin No Abnormality Appearance) (Pt Warm) -Tenderness on Palpation (Catrachita-wound No Skin Appearance) -Ulcer Cleansing Rinsed/ Irrigated with Saline -Foul Odor after Cleansing No -Anesthetic Used 4% Lidocaine Solution - Nurse 2 - General Ulcer CM Notes Start: 08/28/19 08:20 Freq: Status: Active Protocol: Activity Type Activity Date Activity User E-Sign Co-Sign Detail Recorded Client Recorded Date Recorded By Document 08/28/19 08:45 [email or web address] 08/28/19 08:47 [email or web address] 08/28/19 08:45 Wound Center Nurse 2 [Procedure/Treatment] -Time 08:46 -Correct Patient Yes -Correct Side, Site, Position Yes -Correct Procedure Yes -Procedure Performed Yes -Type of Procedure Debridement -Clinical Debridement Selective -Post Debridement Size (cm) - Length 3.5 -Post Debridement Size (cm) - Width 2.0 -Post Debridement Size (cm) - Depth 0.1 -Total Square Cm 7.00 -Wound/Ulcer Outcome Not Healed -Ulcer Cleansing Rinsed/ Irrigated with Saline -Foul Odor after Cleansing No -Bioengineered Tissue No -Bleeding Controlled with Pressure -Offloading No -Treatment Response Procedure Tolerated Well [See Physician Procedure note for Specifics] Pain Scale: 0-10 Numeric [Pain] -Is Patient Pain Free? Yes Musculoskeletal: No Tenderness to Palpation of Joints or Extremities Neurological: Neuro grossly intact Psych/Mental Status: Normal Affect, Appropriate Debridement Note Post-Debridement Measurements/Treatment WC - Nurse 2 - General Ulcer CM Notes Start: 08/28/19 08:20 Freq: Status: Active Protocol: Activity Type Activity Date Activity User E-Sign Co-Sign Detail Recorded Client Recorded Date Recorded By Document 08/28/19 08:45 [email or web address] [id number] 08/28/19 08:47 [email or web address] 08/28/19 08:45 Wound Center Nurse 2 #2 Lower Mid Abdomen -Time 08:46 -Correct Patient Yes -Correct Side, Site, Position Yes -Correct Procedure Yes -Procedure Performed Yes -Type of Procedure Debridement -Clinical Debridement Selective -Post Debridement Size (cm) - Length 3.5 -Post Debridement Size (cm) - Width 2.0 -Post Debridement Size (cm) - Depth 0.1 -Total Square Cm 7.00 -Wound/Ulcer Outcome Not Healed -Ulcer Cleansing Rinsed/ Irrigated with Saline -Foul Odor after Cleansing No -Bioengineered Tissue No -Bleeding Controlled with Pressure -Offloading No -Treatment Response Procedure Tolerated Well Pain Scale: 0-10 Numeric Is Patient Pain Free? Yes Wound debrided: lower abdomen/suprapubic ulcer Type of Debridement: Selective debridement - Patient refused an excisional debridement. She did allow a moistened gauze to remove the slough from around the ulcer. Anesthesia Used: 5% Lidocaine Gel Depth: Down to and including healthy tissue Percentage of wound debrided: 100 Tissue Removed: Dry slough from around the ulcer Severity: Limited To Skin Breakdown Amount of bleeding with debridement: None Assessment/Plan Active Problems (Last Reviewed 03/27/19 @ 19:[address] Salvatore Reyes, DO) Skin ulcer of abdominal wall with fat layer exposed (Chronic) Lymphedema of genitalia (Chronic) Assessment: 1. Nonhealing ulcer anterior abdominal wall and vulva. 2. 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 3. Pseudomonas infection. 4. 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 Plan: Patient was seen and evaluated in the [facility] today. She refused a subcutaneous debridement, but she allowed a selective debridement with moistened gauze to remove the dry slough/biofilm from around the ulcer site. The ulcer is improving. Wound care: She will wash daily with soap and water. Will start her on Collagen Hydrogel covered by adaptic daily topped with dry gauze. She has been doing her own dressing changes at home. She had an EGD last and she has multiple ulcers which were causing her gastric pain. She has been on Protonix and Carafate over the past couple days. Wound culture from 05/31/2019 positive for Pseudomonas aeroginosa and Corynebacterium striatum. The Levaquin was stopped because it is resistant and she was placed on Cipro and Augmentin (since the ED did not do an anaerobic culture, the Augmentin will cover that and the Corynebacterium). She has completed all her antibiotics. Instructed her to eat yogurt daily since she states she can not afford a probiotic. Her Prealbumin from 03/28/19 was 9.3. Encourage nutritional supplementation with protein to help the healing process. Continue abdominal binder. Followup 3 weeks. Selective debridement [id number]
== END 2019-09-19 23:59 ==
LOC: WC 08:22
PROVIDERS: Family Provider Family Medicine; PCP Family Medicine; Visit Provider Nurse Practitioner Family
DX: L98.492 Non-pressure chronic ulcer of skin of other sites with fat layer exposed (principal); I89.0 Lymphedema, not elsewhere classified; Z98.84 Bariatric surgery status; B96.5 Pseudomonas (aeruginosa) (mallei) (pseudomallei) as the cause of diseases classified elsewhere
CPT/HCPCS: 97597

== ENCOUNTER 2019-09-25 08:35 | Outpatient (RCR) | payer MEDICAID, SELFPAY ==
[2019-09-20 00:24] VITALS: BP 192/96; PULSE 93; RESP 16; TEMP 36.5
== END 2019-10-20 23:59 ==
LOC: WC 08:35
PROVIDERS: Family Provider Family Medicine; PCP Family Medicine; Visit Provider Nurse Practitioner Family
DX: Z00.00 Encounter for general adult medical examination without abnormal findings (principal)

== ENCOUNTER → 2019-10-23 10:16 | Outpatient (CLI) | payer MEDICAID, SELFPAY | PROVIDERS: PCP Family Medicine; Visit Provider Family Medicine | DX: B34.9 Viral infection, unspecified (principal) | CPT/HCPCS: 87635; 94799; U0003 ==

== ENCOUNTER 2019-10-24 06:43 | Inpatient (IN) | payer MEDICAID, SELFPAY ==
[2019-10-24] VITALS (17 sets, daily range): BP systolic 123–160; BP diastolic 66–105; PULSE 109–132; RESP 16–23; TEMP 37.1–39.2; O2SAT 95–100; BMI 35.4
--- NOTE | 2019-10-24 06:59 | EKG12_ITS ---
Test Reason : WOUND Blood Pressure : / mmHG Vent. Rate : 119 BPM Atrial Rate : 119 BPM P-R Int : 140 ms QRS Dur : 086 ms QT Int : 320 ms P-R-T Axes : 067 042 -06 degrees QTc Int : 450 ms Sinus tachycardia Nonspecific T wave abnormality Abnormal ECG Confirmed by PONCHO BROWN, BLANCA ([id number]), slot editor DANIEL HAIDER ([id number]) on 10/30/2019 9:12:38 AM Referred By: NINFA Confirmed By:BLANCA ISAAC MD
--- NOTE | 2019-10-24 06:59 | CT_ITS ---
STUDY: CT ABDOMEN AND PELVIS WITH CONTRAST REASON FOR EXAM: Female, 34 years old. CUTANEOUS ABD/PELVIC WALL INFECTION, INFECTION FOLLOWING PANNICULECTOMY IN FEBRUARY, WOUND HAD HEALED UNTIL LAST WEDNESDAY, NOW HAS FEVER, REDNESS, SURG-lithotripsy, cholecystectomy, bariatric surgery 04/18/15,panniculectomy,thyroidectomy, skin grafts -- 02-21 vulva mons pubis debridement -- 03-13 incision and drainage necrotic seroma umbilical now has increased pain and redness with edema RADIATION DOSAGE (If Supplied By Facility): CTDIvol = ( 16.33 ) mGy, DLP = ( 1614.65 ) mGycm TECHNIQUE: Transaxial images were obtained from the dome of the diaphragm to the symphysis pubis without oral contrast. IV 100mL Isovue-300 was administered. Sagittal and coronal images were reconstructed. Individualized dose optimization techniques were used for this CT. COMPARISON: Comparison is made with prior study dated 03/27/2019. FINDINGS: The visualized lung bases are unremarkable. The visualized portions of the heart are within normal limits. Normal liver. There are surgical clips in the gallbladder fossa consistent with a prior cholecystectomy. Normal spleen. Normal pancreas. Normal bilateral adrenal glands. Normal right kidney. Punctate nonobstructive calculus in the upper pole calyx of the left kidney. The patient is status post subtotal gastrectomy and bariatric surgery. Normal small intestine. Normal colon. The appendix is visualized and appears normal. Normal abdominal aorta. Normal inferior vena cava. Normal retroperitoneum. Normal urinary bladder. There is a 2.9 cm x 3.8 cm cyst in the right ovary. There is a 2.2 cm cyst in the left ovary. In the lower anterior abdominal wall, there is evidence of a 9.3 cm tissue defect with the underlying thickening adjacent to the anterior abdominal wall. There is no evidence of the abnormal fluid collection or abscess collection. There is a mild degree of increased markings in the surrounding subcutaneous fat. The edematous changes extend inferiorly to the mons pubis worse on the left side. Normal osseous structures. CT/Abdomen/Pelvis W IV Cont ONLY IMPRESSION: Status post subtotal gastrectomy. Tissue defect in the anterior lower left abdominal wall described with edematous changes which progress E into the mons pubis worse on the left side. Bilateral ovarian cysts. Electronically Signed: Demetrius Brandon, at 9:49 EDT , Service support ,
[2019-10-24] MEDS: Ondansetron 4 MG/2 ML Vial IV (07:10)
[2019-10-24] MEDS: 0.9% Normal Saline 1,000 ML 999 ML IV (07:10)
[2019-10-24] MEDS: Morphine 4 MG/ML Syringe IV ×2 (07:10→10:06)
[2019-10-24 07:21] LABS: Absolute Lymphocyte Count 0.38 X10^3/uL (0.83-4.51); Basophil# 0.05 X10^3/uL; Basophil% 0.4 % (0-1); Eosinophil# 0.29 X10^3/uL; Eosinophils% 2.1 % (0-5); Hematocrit 30.9 % (37-47); Hemoglobin 9.9 g/dL (12.0-15.0); Lymphocyte # 0.38 X10^3/ul (4.0); Lymphocyte % 2.8 % (19-41); Mean Corpuscular Hgb 23.3 pg (27.0-32.0); Mean Corpuscular Volume 72.7 fL (81-99); Mean Platelet Vol. 11.1 fl (6.2-12.0); Monocyte# 0.78 X10^3/uL; Monocyte% 5.7 % (0-10); NRBC Flagged by Analyzer 0 % (0-5); Neutrophil # 11.99 X10^3/uL (2.7-7.7); Neutrophil % 87.1 % (47-70); POSITIVE DIFFERENTIAL YES; Platelet Count 440 K/mm3 (150-450); RBC Distribution Width CV 16.4 % (11.6-14.6); RBC Distribution Width SD 42.4 fl (35.1-43.9); Red Blood Count 4.25 M/mm3 (4.2-5.4); White Blood Count 13.8 K/mm3 (4.4-11.0)
[2019-10-24 07:22] LABS: Differential Indicated SCAN CRITERIA MET
[2019-10-24 07:27] LABS: International Normalized Ratio 1.1; Prothrombin Time (Protime)PT. 13.9 SECONDS (11.7-14.9)
[2019-10-24 07:28] LABS: Partial Thromboplast Time 34.8 Seconds (24.1-36.2)
[2019-10-24 07:36] LABS: ALB/GLOB Ratio 0.6 RATIO (0.9-2.4); AST(SGOT) 37 U/L (15-37); Alanine Aminotransfer ALT/SGPT 72 U/L (13-56); Albumin, Serum 2.6 g/dL (3.2-5.0); Alkaline Phosphatase 259 U/L (45-117); Anion Gap 6 (5-15); BUN 9 mg/dL (7-18); BUN/Creat Ratio 12.8 RATIO (10-20); Calcium,Total 8.5 mg/dL (8.5-10.1); Chloride 102 mmol/L (98-107); EST Glomerular Filtration Rate 101 mL/min (>60); Est Glom Filt Rate - Afr Amer 123 mL/min (>60); Estimated Creatinine Clearance 107.01 ml/min; Globulin 4.6 g/dL (2.2-4.2); Glucose 92 mg/dL (74-106); Potassium 3.9 mmol/L (3.5-5.1); Protein, Total 7.2 g/dL (6.4-8.2); Sodium Level 132 mmol/L (136-145)
[2019-10-24 07:53] LABS: Lactic Acid 1.6 mmol/L (0.4-1.9)
[2019-10-24 08:21] LABS: Internal QC Validated? YES +Cl - CLEAR BKGD; Pregnancy, Serum, hCG Quali. NEGATIVE Negative
[2019-10-24 09:58] LABS: Mucous, Urine 0 SEEN /hpf (<or=2+); Red Blood Cells-Urine 0 SEEN /hpf (0-5)
[2019-10-24 09:59] LABS: Color, Urine Yellow (Yellow); Glucose, Dipstick Normal (Normal); Ketone-Dipstick 5 mg/dl (Negative); Leukocyte Esterase-Dipstick 500 /ul (Negative); Nitrite-Dipstick Negative (Negative); Occult Blood-Urine 10 /ul (Negative); Protein-Dipstick 15 mg/dl (Negative); Specific Gravity, Urine 1.005 (1.002-1.030); Urine Bilirubin Dipstick Negative (Negative); Urine Clarity Sl. Cloudy (Clear); Urine Urobilinogen Normal (Normal)
[2019-10-24 10:06] LABS: Bacteria 1+ /hpf (None Seen); Squamous Epithelial Cells - UA 10-25 SEEN /hpf (5-10); White Blood Cells 0-5 SEEN /hpf (0-5)
--- NOTE | 2019-10-24 10:55 | NURSING ---
[address] GODINEZ PHONE [phone] CALLED OFFICE, TALKED TO DANIELLE. DR PAGE IS IN A 5 HR SURGERY. SHE WILL TEXT HIM.
--- NOTE | 2019-10-24 11:17 | NURSING ---
DR HAILEY CASTELLANO
--- NOTE | 2019-10-24 11:20 | ED.VISSUMM ---
- ER Visit Summary Date of Service: 10/24/19 Chief Complaint: Abdominal infection History of Present Illness: The patient is a 34 F who presents with fevers and lower abdominal pain and infection. She has a history of gastric bypass with panniculectomy. She has had a long complicated course and trouble with wound healing. Over the last few months, the wound had closed, but it reopened. She has an ulcer and a lot of surrounding redness. The patient also reports swelling down into her labia bilaterally. Physical Examination: Febrile and tachycardic. Alert and oriented. Lower abdominal wall is erythematous and edematous and tender. There is an area just larger than a silver dollar to her suprapubic area that appears to be a superficial ulcer. The edema extends down into her bilateral labia. Exam was chaperoned by Ayana SILVA. Test Results: EKG showed sinus rhythm at a rate of 119 with nonspecific T wave changes. CT showed postoperative changes, bilateral ovarian cysts, and abdominal wall edema with soft tissue defect. White count 13.8 and hemoglobin 9.9. Metabolic panel unremarkable. Urinalysis pending. Troponin and lactate normal. test negative. Cultures pending. Emergency Department Course and Treatment: Patient has what appears to be cellulitis and a dehiscence of her wound. She meets criteria for sepsis. Cultures are sent. She is not in shock. Lactate is normal. Zosyn and vancomycin were started. I spoke with Dr. Mendieta's nurse practitioner who advised admission to medicine. Dr. Ruiz accepted the patient. Treatment Plan: As above Disposition: [facility] Impression: Abdominal wall cellulitis, sepsis This note was generated with [employer] dictation software. It may contain incorrect words, spelling, and punctuation that were not noted in review of the chart prior to signing ED Disposition - Plan for ED Patient: Referrals: Bethel Jauregui III, MD [Primary Care Provider] -
--- NOTE | 2019-10-24 11:27 | NURSING ---
MED SURG OBS CELLULITIS, SEPSIS ASHELFAH
--- NOTE | 2019-10-24 11:41 | HP.PCM_ITS ---
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 The patient is a 34 year old F with past medical history as mentioned above presented to the emergency room of fever, lower abdominal pain, swelling and redness that started Wednesday. Her symptoms started on this past Wednesday with fever of up to 104 Fahrenheit, with persistent fever and next day, she started having lower abdominal pain, swelling and redness. This patient had a history of recurrent lower abdominal wall surgical wound infection/abscesses/nonhealing wound with necrotizing soft tissue infections, underwent multiple surgeries and she is stated that here lower abdominal wounds was healed since April,. She started noticing increasing redness and erythema on the lower abdomen extending to both sides of her abdomen and down to the both labia with excruciating pain, dull aching pain, 9 out of 10 in severity, aggravated by any type of movement, no relieving factor and she continued to have high-grade fevers. 1 day later, she noticed an opening ulcer with serous drainage on the lower mid abdomen. In the emergency department, patient was febrile, tachycardic, blood pressure was stable, pulse ox was 97% on room air. Routine blood work was remarkable for leukocytosis, hemoglobin of 9.9 g/dL, sodium of 132, otherwise normal. Lactic acid was normal. LFT revealed slightly repeated alkaline phosphatase which is chronic. Troponin was negative. Serum venous test was negative. Urinalysis revealed cloudy urine, negative for nitrite, there was 10-25 WBCs and 1+ bacteria. CT scan abdomen and pelvis with IV contrast revealed tissue defect in the anterior lower abdominal wall with edematous changes extending down to the mons pubis more on the left side. No evidence of intra-abdominal abscesses. She is being admitted for sepsis secondary to acute cellulitis of the lower abdominal wall extending down to labia majora with new infected ulcer. Past Medical History Past Medical History (Chronic Problems): Chronic Problems (Last Reviewed 03/27/19 @ 19:[address] 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 Salvatore Reyes DO) Back problem M53.9 Bladder infection N30.90 Excessive weight loss R63.4 EXCESSIVE WEIGHT LOSS AFTER GASTRIC BYPASS PROCEDURE Gallstones K80.20 Intertrigo L30.4 ABDOMINAL WALL SKIN CREASE INTERTRIGO Kidney stones N20.0 Soft tissue mass M79.9 PAINFUL SOFT TISSUE MASS PUBIC AREA Stomach ulcer K25.9 Vitamin deficiency E56.9 High blood pressure I10 Allergies methocarbamol Allergy (Verified 10/24/19 07:23) Chest tightness gabapentin Adverse Reaction (Verified 10/24/19 07:23) abnormal gait ketorolac tromethamine [From Toradol] Adverse Reaction (Verified 10/24/19 07:23) Upset Stomach NSAIDS (Non-Steroidal Anti-Inflamma Adverse Reaction (Verified 10/24/19 07:23) gastric bipass not supposed to take tramadol Adverse Reaction (Verified 10/24/19 07:23) Upset Stomach Home Medications: Ambulatory Orders Medication Instructions Recorded Amitriptyline HCl [Elavil] 50 mg PO QHS PRN 04/30/17 Ergocalciferol [Vitamin D] 50,000 unit PO TUTH 04/30/17 Etonogestrel [Nexplanon (Bkc)] 68 mg SQ UD 04/30/17 Tamsulosin HCl [Flomax] 0.4 mg PO DAILY PRN 04/30/17 Lisinopril [Zestril] 40 mg PO BID 05/30/17 Cyanocobalamin [Vitamin B12] 1,000 mcg IM Q30D 07/06/17 Ondansetron [Zofran Odt] 4 mg PO 4X/DAY PRN PRN #30 tab 03/16/19 Hydrocodone/Acetaminophen [[place] 1 ea PO 4X/DAY PRN PRN 08/03/19 5-325 Tablet] Surgical History: Surgical History (Last Reviewed 03/27/19 @ 19:[address] Salvatore Reyes, DO) History of cholecystectomy Z98.890, Z90.49 History of gastric bypass Z98.84 LAPAROSCOPIC MARY-EN-Y PROCEDURE AT [facility] 2016 History of incision and drainage Z98.890 INCISION AND DRAINAGE POST OP HEMATOMA ABDOMINAL WALL 09/17/16 History of incision and drainage Z98.890 INCISION AND DRAINAGE INFECTED POST OP ABDOMINAL WALL SEROMA 10/20/2016 History of nephrolithotomy with removal of calculi Z98.890, Z87.442 2 STONES REMOVED History of thyroidectomy E89.0 LEFT THYROID REMOVED Status post panniculectomy Onset Date: ~09/17/16 Z98.890 Surgical History: cholecystectomy, gastric bypass, - - gastric bypass 04/18/15,thyroid nodular surgery, I+D abdominal wall and pelvic mass 05/03/17, Psychiatric History: No pertinent psych hx 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 Martin Ruiz MD) Mother Anxiety Bleeding disorder Depression Hypertension High cholesterol Cancer Father Diabetes Hypertension Grandfather Colon cancer Diabetes Heart disease Paternal Family History: Family History (Last Reviewed 10/24/19 @ 11:[address] Martin Ruiz MD) Mother Anxiety Bleeding disorder Depression Hypertension High cholesterol Cancer Father Diabetes Hypertension Grandfather Colon cancer Diabetes Heart disease Review of Systems Constitutional: Reports: Fever. Denies: Anorexia, Chills, Weakness Eyes: Denies: Blurred vision, Double vision, Drainage, Redness HEENT: Denies: Difficulty Hearing, Ear Pain, Eye Pain, Nasal Congestion, Sore Throat Cardiovascular: Denies: Chest Pain, Chest Pressure, Chest Tightness, Heaviness, Palpitations, Syncope Respiratory: Denies: Cough, Pleuritic Pain, Shortness of Breath, Sputum production, Wheezing Gastrointestinal: Reports: Abdominal Pain. Denies: Constipation, Diarrhea, Nausea, Vomiting Genitourinary: Denies: Dysuria, Frequency, Hematuria Musculoskeletal: Denies: Arm Pain, Back Pain, Foot Pain Neurological: Denies: Balance problems, Double vision, Change in Speech, Slurred speech, Confusion, Focal weakness, Incoordination, Numbness Psychiatric: Denies: Anxiety, Depression Endocrine: Denies: Change in Body Habitus, Polydipsia, Polyuria VTE Information - Inpt Only VTE Present on Admission: No VTE Mechan Device Prophylaxis: None VTE Pharm Prophylaxis ordered?: No - Physical Exam Vitals/I&O's: Vital Signs Temp Pulse Resp BP Pulse Ox 100.7 F H 126 H 23 H 155/86 H 97 10/24/19 10:00 10/24/19 07:36 10/24/19 07:36 10/24/19 07:36 10/24/19 07:36 Oxygen Delivery Method Room Air Weight: 219 lb 9.286 oz Body Mass Index (BMI) 35.4 Intake and Output for Last 24 Hours 10/22/19 10/23/19 10/24/19 23:59 23:59 23:59 Intake Total 100 / 100 Balance 100 / 100 General: Alert, Oriented x3, Cooperative, No apparent distress HEENT: Atraumatic, PERRLA, EOMI, Normocephalic Oral: Moist Mucosa, No Gingival or Mucosal Lesions/ Ulcerations Neck: Supple, No JVD, Negative Carotid Bruits, Trachea Midline, Thyroid Normal Size and Texture Lungs: Clear to auscultation, Normal air movement, No rhonchi, No wheeze, No rales Cardiovascular: Regular rate, Regular Rhythm, Normal S1, Normal S2, PMI Normal, Tachycardic Abdomen: Bowel Sounds Present, Soft, Non-Distended, No Hepato-splenomegaly, Tender, - - Lower abdominal tenderness due to extensive cellulitis. Extremities: No clubbing, No cyanosis, Edema - Trace edema. Skin: No rashes, Ulcer/ Wound, - - Lower abdomen: Extensive erythema and swelling along the lower abdomen and on both sides to the flanks, open superficial ulcer in the suprapubic region, erythema and swelling extending down massively to the labia majora. Lymphatic: No Cervical, Supraclavicular, or Inguinal Adenopathy Neurological: Cranial nerves II-XII grossly intact, Motor Exam 5/5 strength throughout Psych/Mental Status: Normal Affect, Appropriate, Alert and oriented to time, place, person, mood and affect Laboratory Results 10/24/19 07:06: WBC 13.8 H, RBC 4.25, Hgb 9.9 L, Hct 30.9 L, MCV 72.7 L, MCH 23.3 L, MCHC 32.0, RDW Std Deviation 42.4, RDW Coeff of Andrez 16.4 H, Plt Count 440, MPV 11.1, Immature Gran % (Auto) 1.900 H, Neut % (Auto) 87.1 H, Lymph % (Auto) 2.8 L, [place] % (Auto) 5.7, Eos % (Auto) 2.1, Baso % (Auto) 0.4, Absolute Neuts (auto) 12.0 H, Absolute Lymphs (auto) 0.38 L, Nucleated RBC % 0 10/24/19 07:06: PT 13.9, INR 1.1, APTT 34.8 10/24/19 07:06: Sodium 132 L, Potassium 3.9, Chloride 102, Carbon Dioxide 24.0, Anion Gap 6, BUN 9, Creatinine 0.70, Estim Creat Clear Calc 107.01, Est GFR (MDRD) Af Amer 123, Est GFR (MDRD) Non-Af 101, BUN/Creatinine Ratio 12.8, Glucose 92, Calcium 8.5, Total Bilirubin 0.60, AST 37, ALT 72 H, Alkaline Phosphatase 259 H, Troponin I < 0.015, Total Protein 7.2, Albumin 2.6 L, Globulin 4.6 H, Albumin/Globulin Ratio 0.6 L 10/24/19 07:06: Lactic Acid 1.6 10/24/19 07:06: Serum , Qual NEGATIVE 10/24/19 09:50: Urine Color Yellow, Urine Clarity Sl. Cloudy, Urine pH 7.0, Ur Specific [place] 1.005, Urine Protein 15 H, Urine Glucose (UA) Normal, Urine Ketones 5 H, Urine Occult Blood 10 H, Urine Nitrite Negative, Urine Bilirubin Negative, Urine Urobilinogen Normal, Ur Leukocyte Esterase 500 H, Urine RBC 0 SEEN, Urine WBC 0-5 SEEN, Ur Squamous Epith Cells 10-25 SEEN, Urine Bacteria 1+, Urine Mucus 0 SEEN Clinical Impression(s) from Imaging Studies Abdomen/Pelvis CT 10/24/19 06:59 IMPRESSION: Status post subtotal gastrectomy. Tissue defect in the anterior lower left abdominal wall described with edematous changes which progress E into the mons pubis worse on the left side. Bilateral ovarian cysts. Electronically Signed: Demetrius Brandon, at 9:49 EDT , Service support , Current Medications Vancomycin HCl 1,500 mg/ (Sodium Chloride) 530 mls @ 250 mls/hr IV X1 ONE Stop: 10/24/19 12:37 Last Admin: 10/24/19 11:23 Dose: 250 mls/hr Documented by: Assessment/Plan This is a 34 years old female patient presented to the emergency room because of lower abdominal pain, swelling, redness and fever, found to have sepsis secondary to acute cellulitis of the lower abdominal wall with newly opened infected ulcer and cellulitis is extending down to the labia majora. #1 acute cellulitis of the lower abdominal wall with extension down to the labia majora/lower abdominal wall infected ulcer/sepsis: In context of history of polymicrobial recurrent lower abdominal wall surgical wound infections/abscesses/nonhealing wounds/necrotizing soft tissue infections and that was healed since April 2019. In the past, she had multiple wound cultures that revealed pseudomonas aeruginosa, MSSA, Staphylococcus hemolytic S, Staphylococcus hominis and corynebacterium. In the emergency department, patient was febrile, tachycardic, tachypneic. Lactic acid was normal. She does have sepsis. Blood pressure is maintained. CT scan abdomen and pelvis reviewed as above. Plan: Admit to MedSurg floor, telemetry, blood culture, urine culture, wound culture, MRSA wound by PCR, start IV Zosyn and clindamycin, will avoid vancomycin as patient developed acute kidney injury on April, due to of the vancomycin, IV fluids, Tylenol PRN, IV Dilaudid PRN, OxyIR PRN, pl astic surgery consult, repeat CBC and BMP tomorrow morning, PT OT evaluation and treatment. #2 chronic anemia: Baseline hemoglobin has been around 8 to 11 g/dL. Admission hemoglobin is 9.9 g/dL, stable at baseline. Plan to monitor. #3 hypertension: Blood pressure stable, continue lisinopril. #4 history of nephrolithiasis: Stable, kidney function is normal. #5 DVT prophylaxis: Low risk patient, no prophylaxis indicated. This note was generated with [employer] dictation software. It may contain incorrect words, spelling, and punctuation that were not noted in checking the note before signing. Inpatient E&M: [id number] Init Hosp L3
--- NOTE | 2019-10-24 12:09 | NURSING ---
tested Sunday 10/22 for covid- done at [facility] drive thru testing.
--- NOTE | 2019-10-24 12:30 | NURSING ---
wound photo: lower abdomen
[2019-10-24] MEDS: HYDROmorphone 1 MG/ML Syringe IV ×3 (12:35→21:24)
[2019-10-24] MEDS: Acetaminophen 325 MG Tablet 650 MG PO (12:36)
[2019-10-24] MEDS: 0.9% Normal Saline 1,000 ML 100 ML IV (12:39)
--- NOTE | 2019-10-24 15:00 | CASEMGMT ---
RICARDO BECKFORD TAVERN CAR ATTENDANT SHAKEEL to room to meet with patient for initial transition planning/care coordination assessment. RICARDO BECKFORD introduced self and role at [facility]. Pt voices understanding and consents to assessment at this time. Pt resting in bed in no distress at this time. Pt is A/O at this time and answers all questions appropriately. Care providers, pharmacy, and demographics verified/updated at this time. PCP: Dr Amaury Jauregui Specialists: Dr Gayatri Barrios [facility]: [facility] Insurance: [facility] Community Plan Prescription Benefit: Yes Living Will/HPOA: States has been given information on this before but is not certain if she completed this. RICARDO BECKFORD checked [facility] e-chart and no records of completed paperwork found. Pt made aware and states she would like to talk w/SW to complete. MANA Cohn, made aware. LNOK: Mother, Faith. Sister. Living Arrangements: Lives with her mother in 2-story home w/finished basement. Mother lives upstairs and pt lives downstairs. Mother has some physical disabilities and pt does most of the household mgmt tasks. Pt independent with ADL's and works full-time. Transportation: Pt states drives self and states no transportation concerns at this time. Friend or mother will take her home @ d/c DME: Denies using any DME and denies needs. HHC/SNF: No history of SNF. [facility] had [facility] the [facility]. States if she does need to have surgery this admission and if she needs HHC for wound care, she is not sure what HHC agency she would like. Pt wishes to return home and states has no concerns with going home at time of discharge. CM to follow for any discharge planning/needs. Pt voices no further concerns/needs at this time. Advised pt to ask for CM if any further questions/concerns/needs arise. Voices understanding. PLAN: Home. Unknown at this time if pt will need surgery or any wound care @ d/c. Follow for any wound care/HHC needs Arabella GIFFORD RN, CM
[2019-10-24 15:58] LABS: M R Staph aureus DNA By PCR Negative (Negative); Probe Check PASS; Specimen Processing Control PASS; Staph aureus DNA By PCR POSITIVE (Negative)
--- NOTE | 2019-10-24 17:48 | CON.PCM_ITS ---
Reason for Consult Date of Consultation: 10/24/19 Reason for Consultation: Nonhealing ulcer abdominal wall and vulva involving the mons pubis with surrounding cellulitis. REFERRING PHYSICIAN: Dr. Ruiz. ALARM SIGNALER: Dr. Mendieta. History of Present Illness: The patient is a 34 year old F presented to the ED with fever, and lower abdominal pain, and increasing redness that has worsened since Wednesday. This patient had a history of recurrent lower abdominal wall surgical wound infection/abscesses/nonhealing wound with necrotizing soft tissue infections, underwent multiple surgeries with the last surgery being in March,. She states the abdominal wall ulcer had healed 2 months ago and has recently re- ulcerated. In the ED, her WBC was 13.8. Her Temp was 102. She was started on IV Cleocin and Zosyn. She has had problems with ERIKA with Vancomycin in the past. Initial wound culture shows MSSA. CT scan abdomen and pelvis with IV contrast revealed tissue defect in the anterior lower abdominal wall with edematous changes extending down to the mons pubis more on the left side. No evidence of intra-abdominal abscesses. I was asked to evaluate this patient for surgical options for treatment. Past Medical History Past Medical History (Chronic Problems): Chronic Problems (Last Reviewed 10/25/19 @ 11:[address] 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 Lissette Nolasco MD) Back problem M53.9 Bladder infection N30.90 Excessive weight loss R63.4 EXCESSIVE WEIGHT LOSS AFTER GASTRIC BYPASS PROCEDURE Gallstones K80.20 Intertrigo L30.4 ABDOMINAL WALL SKIN CREASE INTERTRIGO Kidney stones N20.0 Soft tissue mass M79.9 PAINFUL SOFT TISSUE MASS PUBIC AREA Stomach ulcer K25.9 Vitamin deficiency E56.9 High blood pressure I10 Allergies methocarbamol Allergy (Verified 10/24/19 07:23) Chest tightness gabapentin Adverse Reaction (Verified 10/24/19 07:23) abnormal gait ketorolac tromethamine [From Toradol] Adverse Reaction (Verified 10/24/19 07:23) Upset Stomach NSAIDS (Non-Steroidal Anti-Inflamma Adverse Reaction (Verified 10/24/19 07:23) gastric bipass not supposed to take tramadol Adverse Reaction (Verified 10/24/19 07:23) Upset Stomach Home Medications: Ambulatory Orders Medication Instructions Recorded Amitriptyline HCl [Elavil] 50 mg PO QHS PRN 04/30/17 Ergocalciferol [Vitamin D] 50,000 unit PO TUTH 04/30/17 Etonogestrel [Nexplanon (Bkc)] 68 mg SQ UD 04/30/17 Tamsulosin HCl [Flomax] 0.4 mg PO DAILY PRN 04/30/17 Lisinopril [Zestril] 40 mg PO BID 05/30/17 Cyanocobalamin [Vitamin B12] 1,000 mcg IM Q30D 07/06/17 Ondansetron [Zofran Odt] 4 mg PO 4X/DAY PRN PRN #30 tab 03/16/19 Hydrocodone/Acetaminophen [[place] 1 ea PO 4X/DAY PRN PRN 08/03/19 5-325 Tablet] Surgical History: Surgical History (Last Reviewed 10/25/19 @ 11:[address] Lissette Nolasco MD) History of cholecystectomy Z98.890, Z90.49 History of gastric bypass Z98.84 LAPAROSCOPIC MARY-EN-Y PROCEDURE AT [facility] 2016 History of incision and drainage Z98.890 INCISION AND DRAINAGE POST OP HEMATOMA ABDOMINAL WALL 09/17/16 History of incision and drainage Z98.890 INCISION AND DRAINAGE INFECTED POST OP ABDOMINAL WALL SEROMA 10/20/2016 History of nephrolithotomy with removal of calculi Z98.890, Z87.442 2 STONES REMOVED History of thyroidectomy E89.0 LEFT THYROID REMOVED Status post panniculectomy Onset Date: ~09/17/16 Z98.890 Surgical History: cholecystectomy, gastric bypass, - - gastric bypass 04/18/15,thyroid nodular surgery. Excision 8 cm painful soft tissue mass pubic area with 20 cm complex closure 04/20/17. Surgical preparation lower anterior abdominal wall and pubic area with incision and drainage and excisional debridement infected seroma/hematoma (250 cm2) 05/03/17. Surgical preparation vulva involving mons pubis with excision painful infected ulcer and excision associated painful lymphedema with partial vulvectomy (120 cm2) 07/20/17. Surgical preparation vuvla involving the mons pubis area with excisional debridement nonhealing ulcer with STSG reconstruction from the right lateral abdominal wall (15 cm2) and placement of ANGIE NPWT 10/19/17. 1. Surgical preparation vulva involving mons pubis with excisional debridement painful infected skin graft scar contour deformity. 2. Reconstruction with abdominal wall advancement skin flap (215 cm2) and complex secondary wound closure 02/21/19. 1. Surgical preparation abdominal wall area with incision and drainage and excisional debridement necrotic infected seroma including umbilicus (182 cm2). 2. Surgical preparation vulva involving the mons pubis area with incision and drainage and excisional debridement necrotic infected seroma (52 cm) 03/13/19. Surgical preparation lower anterior abdominal wall with incision and drainage and excisional debridement skin, subcutaneous tissue, and fascia necrotizing soft tissue infection abscess (660 cm2) 03/28/19. Psychiatric History: No pertinent psych hx [employer] History: No pertinent [employer] history Lives: Spouse/ Significant Other Smoking Status: Never smoker Alcohol: None Drugs: None - *Family History Maternal Family History: Family History (Last Reviewed 10/25/19 @ 11:[address] Lissette Nolasco MD) Mother Anxiety Bleeding disorder Depression Hypertension High cholesterol Cancer Father Diabetes Hypertension Grandfather Colon cancer Diabetes Heart disease History Items: Hypertension Paternal Family History: Family History (Last Reviewed 10/25/19 @ 11:[address] Lissette Nolasco MD) Mother Anxiety Bleeding disorder Depression Hypertension High cholesterol Cancer Father Diabetes Hypertension Grandfather Colon cancer Diabetes Heart disease History Items: Hypertension Review of Systems Comment: Constitutional: Reports: Fever. Denies: Anorexia, Chills, Weakness. Eyes: Denies: Blurred vision, Double vision, Drainage, Redness. HEENT: Denies: Difficulty Hearing, Ear Pain, Eye Pain, Nasal Congestion, Sore Throat. Cardiovascular: Denies: Chest Pain, Chest Pressure, Chest Tightness, Heaviness, Palpitations, Syncope. Respiratory: Denies: Cough, Pleuritic Pain, Shortness of Breath, Sputum production, Wheezing. Gastrointestinal: Reports: Abdominal Pain. Denies: Constipation, Diarrhea, Nausea, Vomiting. Genitourinary: Denies: Dysuria, Frequency, Hematuria. Musculoskeletal: Denies: Arm Pain, Back Pain, Foot Pain. Neurological: Denies: Balance problems, Double vision, Change in Speech, Slurred speech, Confusion, Focal weakness, Incoordination, Numbness. Psychiatric: Denies: Anxiety, Depression. Endocrine: Denies: Change in Body Habitus, Polydipsia, Polyuria - Physical Exam Vitals/I&O's: General: Alert, Oriented x3, Cooperative, No apparent distress HEENT: Atraumatic, PERRLA, EOMI, Normocephalic Oral: Moist Mucosa, No Gingival or Mucosal Lesions/ Ulcerations Neck: Supple, Nontender, No cervical adenopathy. Lungs: Clear to auscultation. Cardiovascular: Regular rate, Regular Rhythm. Abdomen: Soft, Non-Distended, No Hepato-splenomegaly, Lower abdominal tenderness due to extensive cellulitis. In the lower midline of the abdominal wall and extending into the vulva involving the mons pubis is a nonhealing ulcer. Exudate present. Measures 4 x 7 cm. Extremities: No clubbing, No cyanosis, Edema - Trace edema. Genitalia: Has lymphedema genitalia involving genitocrural crease extending up to labia. Lymphatic: No Cervical, Supraclavicular, or Inguinal Adenopathy Neurological: Cranial nerves II-XII grossly intact. Psych/Mental Status: Normal Affect, Appropriate, Alert and oriented to time, place, person, mood and affect. Vital Signs Temp Pulse Resp BP Pulse Ox 99.0 F 111 H 18 123/75 H 95 10/24/19 15:00 10/24/19 15:00 10/24/19 15:00 10/24/19 15:00 10/24/19 15:25 Oxygen Delivery Method Room Air Weight: 219 lb 5.759 oz Body Mass Index (BMI) 35.4 Intake and Output for Last 24 Hours 10/22/19 10/23/19 10/24/19 23:59 23:59 23:59 Intake Total 1736 / 1736 Balance 1736 / 1736 Laboratory Results 10/24/19 07:06: WBC 13.8 H, RBC 4.25, Hgb 9.9 L, Hct 30.9 L, MCV 72.7 L, MCH 23.3 L, MCHC 32.0, RDW Std Deviation 42.4, RDW Coeff of Andrez 16.4 H, Plt Count 440, MPV 11.1, Immature Gran % (Auto) 1.900 H, Neut % (Auto) 87.1 H, Lymph % (Auto) 2.8 L, [place] % (Auto) 5.7, Eos % (Auto) 2.1, Baso % (Auto) 0.4, Absolute Neuts (auto) 12.0 H, Absolute Lymphs (auto) 0.38 L, Nucleated RBC % 0 10/24/19 07:06: PT 13.9, INR 1.1, APTT 34.8 10/24/19 07:06: Sodium 132 L, Potassium 3.9, Chloride 102, Carbon Dioxide 24.0, Anion Gap 6, BUN 9, Creatinine 0.70, Estim Creat Clear Calc 107.01, Est GFR (MDRD) Af Amer 123, Est GFR (MDRD) Non-Af 101, BUN/Creatinine Ratio 12.8, Glucose 92, Calcium 8.5, Total Bilirubin 0.60, AST 37, ALT 72 H, Alkaline Phosphatase 259 H, Troponin I < 0.015, Total Protein 7.2, Albumin 2.6 L, Globulin 4.6 H, Albumin/Globulin Ratio 0.6 L 10/24/19 07:06: Lactic Acid 1.6 10/24/19 07:06: Serum , Qual NEGATIVE 10/24/19 09:50: Urine Color Yellow, Urine Clarity Sl. Cloudy, Urine pH 7.0, Ur Specific [place] 1.005, Urine Protein 15 H, Urine Glucose (UA) Normal, Urine Ketones 5 H, Urine Occult Blood 10 H, Urine Nitrite Negative, Urine Bilirubin Negative, Urine Urobilinogen Normal, Ur Leukocyte Esterase 500 H, Urine RBC 0 SEEN, Urine WBC 0-5 SEEN, Ur Squamous Epith Cells 10-25 SEEN, Urine Bacteria 1+, Urine Mucus 0 SEEN 10/24/19 12:30: S.aureus Protein A PCR POSITIVE H, MRSA (PCR) Negative Diagnostic Data Abdomen/Pelvis CT 10/24/19 06:59 IMPRESSION: Status post subtotal gastrectomy. Tissue defect in the anterior lower left abdominal wall described with edematous changes which progress E into the mons pubis worse on the left side. Bilateral ovarian cysts. Electronically Signed: Demetrius Brandon, at 9:49 EDT , Service support , Current Medications Acetaminophen (Tylenol) 650 mg PO Q6H PRN PRN PRN Reason: Pain Score 1-10/Temp > 100.7 F Last Admin: 10/24/19 12:36 Dose: 650 mg Documented by: Amitriptyline HCl (Elavil) 50 mg PO QHS PRN PRN Reason: SLEEP Hydromorphone HCl (Dilaudid Inj) 1 mg IV Q4H PRN PRN PRN Reason: Pain Score 6-10/10 Last Admin: 10/24/19 17:08 Dose: 1 mg Documented by: Sodium Chloride () 1,000 mls @ 100 mls/hr IV .Q10H [facility] Last Admin: 10/24/19 12:39 Dose: 100 mls/hr Documented by: Piperacillin Sod/Tazobactam (Sod 3.375 gm/ Sodium Chloride) 50 mls @ 12.5 mls/hr IV Q8 [facility] Clindamycin Phosphate 900 mg/ (Dextrose) 106 mls @ 150 mls/hr IV Q8 [facility] Last Infusion: 10/24/19 15:53 Dose: Infused Documented by: Sodium Chloride () 250 mls @ 15 mls/hr IV .[id number] PRN PRN Reason: Saline Flush Sodium Chloride () 250 mls @ 15 mls/hr IV .[id number] PRN PRN Reason: Additional IVPB Infusion Lactobacillus Acidophilus (Acidophilus) 1 tablet PO TID [facility] Last Admin: 10/24/19 12:42 Dose: 1 tablet Documented by: Lisinopril (Zestril) 40 mg PO BID [facility] Nutritional Formula (Lactose Free) (Ensure Enlive) 120 ml PO 4X/DAY [facility] Last Admin: 10/24/19 17:19 Dose: Not Given Documented by: Ondansetron HCl (Zofran) 4 mg IV Q8H PRN PRN PRN Reason: NAUSEA/VOMITING Oxycodone HCl (Oxyir) 5 mg PO Q4H PRN PRN PRN Reason: Pain Score 4-5/10 Senna/Docusate Sodium (Senokot-S, Catrachita-Colace) 2 tablet PO BID PRN PRN PRN Reason: Constipation Sodium Chloride () 10 - 40 ml IV UD PRN PRN Reason: SALINE FLUSH Tamsulosin HCl (Flomax) 0.4 mg PO DAILY PRN PRN Reason: kidney stones Assessment/Plan All Active Problems (Last Reviewed 10/25/19 @ 11:[address] Lissette Nolasco MD) Cellulitis of abdominal wall (Acute) 1. Nonhealing ulcer abdominal wall and vulva involving the mons pubis with surrounding cellulitis. 2. 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 3. 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 CT reviewed. Continue Cleocin and Zosyn. Wound culture shows preliminary MSSA. Continue Silver dressing changes to the nonhealing ulcer abdominal wall and vulva involving the mons pubis. Patient should respond to the IV antibiotics. If so can then discharge home on po antibiotics. If the cellulitis persists despite IV antibiotics or if the fever persists, then she will need operative intervention with incision and drainage and excisional debridement abdominal wall tissue. She has had necrotizing soft tissue infections in the past. If surgery is done, the wound will be left open and postop wound care started with Dakin's dressing changes. She has tried the VAC in the past and had trouble tolerating it. Anticipate increased metabolic demands from the ulcer and the infection. Will check a Prealbumin and encourage nutritional supplementation with protein to help the healing process. Patient was informed of the risks and complications of the procedure including alternatives to surgery. These were discussed with the patient personally. Joaquin torres voices understanding and wishes to proceed with the current plan of IV antibiotics and close observation. Patient understands that surgery may be necessary. After discharge, [facility]. Inpatient E&M: 37704 Init Hosp L2 - ICD-10 - L98.492, N76.6, L03.311, R63.4, I89.0
[2019-10-24] MEDS: oxyCODONE 5 MG Tablet PO (18:59)
[2019-10-24] MEDS: 0.9% Saline Lock 10 ML Syringe IV (21:26)
[2019-10-24] MEDS: Lisinopril 40 MG Tablet PO (21:29)
[2019-10-24] MEDS: Amitriptyline 25 MG Tablet 50 MG PO (22:49)
[2019-10-25] VITALS (12 sets, daily range): BP systolic 99–128; BP diastolic 53–74; PULSE 92–115; RESP 16–18; TEMP 36.6–37.2; O2SAT 94–100
[2019-10-25] MEDS: HYDROmorphone 1 MG/ML Syringe IV ×3 (01:28→11:12)
[2019-10-25] MEDS: 0.9% Saline Lock 10 ML Syringe IV ×3 (01:34→11:12)
[2019-10-25 06:16] LABS: Absolute Lymphocyte Count 0.76 X10^3/uL (0.83-4.51); Basophil# 0.09 X10^3/uL; Basophil% 0.6 % (0-1); Eosinophil# 0.65 X10^3/uL; Eosinophils% 4.2 % (0-5); Hematocrit 26.3 % (37-47); Hemoglobin 8.2 g/dL (12.0-15.0); Lymphocyte # 0.76 X10^3/ul (4.0); Lymphocyte % 4.9 % (19-41); Mean Corp Hgb Conc 31.2 g/dL (32-36); Mean Corpuscular Hgb 23.3 pg (27.0-32.0); Mean Corpuscular Volume 74.7 fL (81-99); Mean Platelet Vol. 10.4 fl (6.2-12.0); Monocyte# 0.95 X10^3/uL; Monocyte% 6.1 % (0-10); NRBC Flagged by Analyzer 0 % (0-5); Neutrophil # 12.98 X10^3/uL (2.7-7.7); Neutrophil % 83.4 % (47-70); POSITIVE MORPHOLOGY YES; Platelet Count 366 K/mm3 (150-450); RBC Distribution Width CV 16.9 % (11.6-14.6); RBC Distribution Width SD 44.9 fl (35.1-43.9); Red Blood Count 3.52 M/mm3 (4.2-5.4); White Blood Count 15.6 K/mm3 (4.4-11.0)
[2019-10-25 06:25] LABS: Differential Indicated SCAN CRITERIA MET
[2019-10-25 06:46] LABS: Anion Gap 7 (5-15); BUN 11 mg/dL (7-18); BUN/Creat Ratio 13.7 RATIO (10-20); Calcium,Total 8.1 mg/dL (8.5-10.1); Chloride 104 mmol/L (98-107); EST Glomerular Filtration Rate 87 mL/min (>60); Est Glom Filt Rate - Afr Amer 105 mL/min (>60); Estimated Creatinine Clearance 93.63 ml/min; Glucose 98 mg/dL (74-106); Potassium 3.3 mmol/L (3.5-5.1); Sodium Level 134 mmol/L (136-145)
[2019-10-25 06:48] LABS: Differential Comment SCANNED; Hypochromasia 2+; Microcytosis 3+
[2019-10-25 06:49] LABS: Toxic Granulation 2+
--- NOTE | 2019-10-25 08:06 | PN_ITS ---
Subjective: Chief complaint: Follow-up after admission for acute cellulitis of the lower abdominal wall/lower abdominal wall infected ulcer/sepsis. Patient seen and examined. No acute events overnight. Today, she complained of itching at the cellulitis site after she took OxyIR. Lower abdominal pain is getting better. She thinks the swelling of labia majora is getting worse and more firm. She was afebrile overnight, heart rate is down, blood pressure is stable. - Physical Exam Vitals/I&O's: Vital Signs Temp Pulse Resp BP Pulse Ox 98.0 F 115 H 18 114/57 L 94 10/25/19 05:15 10/25/19 06:00 10/25/19 05:15 10/25/19 05:15 10/25/19 07:24 Oxygen Delivery Method Room Air Weight: 219 lb 5.759 oz Body Mass Index (BMI) 35.4 Intake and Output for Last 24 Hours 10/23/19 10/24/19 10/25/19 23:59 23:59 23:59 Intake Total 2852 / 3652 1496 / 1496 Balance 2852 / 3652 1496 / 1496 General: Alert, Oriented x3, Cooperative, No apparent distress HEENT: Atraumatic, PERRLA, EOMI, Normocephalic Oral: Moist Mucosa, No Gingival or Mucosal Lesions/ Ulcerations Neck: Supple, No JVD, Negative Carotid Bruits, Trachea Midline, Thyroid Normal Size and Texture Lungs: Clear to auscultation, Normal air movement, No rhonchi, No wheeze, No rales Cardiovascular: Regular rate, Regular Rhythm, Normal S1, Normal S2, PMI Normal, Tachycardic Abdomen: Bowel Sounds Present, Soft, Non-Distended, No Hepato-splenomegaly, Tender - Lower abdominal tenderness. Extremities: No clubbing, No cyanosis, No edema Skin: No rashes, Ulcer/ Wound, - - Lower abdominal midline ulcer measuring about 5 x 5 cm, minimal serous drainage, surrounded by significant erythema extending on both sides of the lower abdomen as well as down to the labia majora, huge swelling of both labia majora. Lymphatic: No Cervical, Supraclavicular, or Inguinal Adenopathy Neurological: Cranial nerves II-XII grossly intact, Neuro grossly intact Psych/Mental Status: Normal Affect, Appropriate, Alert and oriented to time, place, person, mood and affect Laboratory Results 10/24/19 07:06: Serum , Qual NEGATIVE 10/24/19 09:50: Urine Color Yellow, Urine Clarity Sl. Cloudy, Urine pH 7.0, Ur Specific [place] 1.005, Urine Protein 15 H, Urine Glucose (UA) Normal, Urine Ketones 5 H, Urine Occult Blood 10 H, Urine Nitrite Negative, Urine Bilirubin Negative, Urine Urobilinogen Normal, Ur Leukocyte Esterase 500 H, Urine RBC 0 SEEN, Urine WBC 0-5 SEEN, Ur Squamous Epith Cells 10-25 SEEN, Urine Bacteria 1+, Urine Mucus 0 SEEN 10/24/19 12:30: S.aureus Protein A PCR POSITIVE H, MRSA (PCR) Negative 10/25/19 05:44: WBC 15.6 H, RBC 3.52 L, Hgb 8.2 L, Hct 26.3 L, MCV 74.7 L, MCH 23.3 L, MCHC 31.2 L, RDW Std Deviation 44.9 H, RDW Coeff of Andrez 16.9 H, Plt Count 366, MPV 10.4, Immature Gran % (Auto) 0.800, Neut % (Auto) 83.4 H, Lymph % (Auto) 4.9 L, [place] % (Auto) 6.1, Eos % (Auto) 4.2, Baso % (Auto) 0.6, Absolute Neuts (auto) 13.0 H, Absolute Lymphs (auto) 0.76 L, Nucleated RBC % 0, Differential Comment SCANNED, Toxic Granulation 2+, Hypochromasia 2+, Microcytosis 3+ 10/25/19 05:44: Sodium 134 L, Potassium 3.3 L, Chloride 104, Carbon Dioxide 23.0, Anion Gap 7, BUN 11, Creatinine 0.80, Estim Creat Clear Calc 93.63, Est GFR (MDRD) Af Amer 105, Est GFR (MDRD) Non-Af 87, BUN/Creatinine Ratio 13.7, Glucose 98, Calcium 8.1 L Current Medications Acetaminophen (Tylenol) 650 mg PO Q6H PRN PRN PRN Reason: Pain Score 1-10/Temp > 100.7 F Last Admin: 10/24/19 12:36 Dose: 650 mg Documented by: Amitriptyline HCl (Elavil) 50 mg PO QHS PRN PRN Reason: SLEEP Last Admin: 10/24/19 22:49 Dose: 50 mg Documented by: Hydromorphone HCl (Dilaudid Inj) 1 mg IV Q4H PRN PRN PRN Reason: Pain Score 6-10/10 Last Admin: 10/25/19 05:29 Dose: 1 mg Documented by: Sodium Chloride () 1,000 mls @ 100 mls/hr IV .Q10H [facility] Last Infusion: 10/25/19 05:00 Dose: Infused Documented by: Piperacillin Sod/Tazobactam (Sod 3.375 gm/ Sodium Chloride) 50 mls @ 12.5 mls/hr IV Q8 [facility] Last Admin: 10/25/19 06:45 Dose: 12.5 mls/hr Documented by: Clindamycin Phosphate 900 mg/ (Dextrose) 106 mls @ 150 mls/hr IV Q8 [facility] Last Infusion: 10/25/19 06:00 Dose: Infused Documented by: Sodium Chloride () 250 mls @ 15 mls/hr IV .[id number] PRN PRN Reason: Saline Flush Sodium Chloride () 250 mls @ 15 mls/hr IV .[id number] PRN PRN Reason: Additional IVPB Infusion Lactobacillus Acidophilus (Acidophilus) 1 tablet PO TID [facility] Last Admin: 10/25/19 05:12 Dose: 1 tablet Documented by: Lisinopril (Zestril) 40 mg PO BID [facility] Last Admin: 10/24/19 21:29 Dose: 40 mg Documented by: Nutritional Formula (Lactose Free) (Ensure Enlive) 120 ml PO 4X/DAY [facility] Last Admin: 10/24/19 21:17 Dose: Not Given Documented by: Ondansetron HCl (Zofran) 4 mg IV Q8H PRN PRN PRN Reason: NAUSEA/VOMITING Oxycodone HCl (Oxyir) 5 mg PO Q4H PRN PRN PRN Reason: Pain Score 4-5/10 Last Admin: 10/24/19 18:59 Dose: 5 mg Documented by: Senna/Docusate Sodium (Senokot-S, Catrachita-Colace) 2 tablet PO BID PRN PRN PRN Reason: Constipation Sodium Chloride () 10 - 40 ml IV UD PRN PRN Reason: SALINE FLUSH Last Admin: 10/25/19 05:35 Dose: 10 ml Documented by: Tamsulosin HCl (Flomax) 0.4 mg PO DAILY PRN PRN Reason: kidney stones Medical Necessity - Tobacco Use Smoking Status: Never smoker Assessment/Plan This is a 34 years old female patient presented to the emergency room because of lower abdominal pain, swelling, redness and fever, found to have sepsis secondary to acute cellulitis of the lower abdominal wall with newly opened infected ulcer and cellulitis is extending down to the labia majora. #1 acute cellulitis of the lower abdominal wall with extension down to the labia majora/lower abdominal wall infected ulcer/sepsis: She is on IV Zosyn and clindamycin. She has been afebrile overnight, heart rate is trending down but still around 100, blood pressure stable. WBC is trending up. There is mild improvement of the lower abdominal erythema and swelling. Patient had history of polymicrobial recurrent lower abdominal wall surgical wound infections/abscesses/nonhealing wounds/necrotizing soft tissue infections and that was healed since April 2019. In the past, she had multiple wound cultures that revealed pseudomonas aeruginosa, MSSA, Staphylococcus hemolytic S, Staphylococcus hominis and corynebacterium. At this time, blood, urine and wound cultures are pending. MRSA wound screen was negative. Plastic surgery consulted. Plan to continue same treatment, consult [facility] regarding the significant swelling of both labia majora. #2 chronic anemia: Baseline hemoglobin has been around 8 to 11 g/dL. Admission hemoglobin is 9.9 g/dL, today's hemoglobin is 8.2 g/dL, stable at baseline. No evidence of active bleeding. Plan to monitor. #3 hypertension: Blood pressure stable, continue lisinopril. #4 history of nephrolithiasis: Stable, kidney function is normal. #5 DVT prophylaxis: Low risk patient, no prophylaxis indicated. This note was generated with [employer] dictation software. It may contain incorrect words, spelling, and punctuation that were not noted in checking the note before signing. Inpatient E&M: 33296 Subs Hosp L2
--- NOTE | 2019-10-25 08:53 | PCM.CONS.GEN ---
Problem List (1) Skin ulcer of abdominal wall with fat layer exposed Status: Chronic (2) Open wound anterior abdominal wall Status: Chronic Reason for Consult Date of Consultation: 10/25/19 Reason for Consultation: Labial Swelling. Abdominal wall cellulitis History of Present Illness: The patient is a 34 year old F G0 who was admitted with abdominal wall cellulitis. I am seeing the patient today to evaluate labial swelling that appears to be worsening. Patient reports history of many prior infections of lower abdominal wall requiring too many surgeries to count. States that she has experienced swelling of her labia with these infections, but that this is worse than what she has experienced in the past. States that her current infection started on Wednesday. She came to the ER yesterday after having fevers up to 104F at home. She states that she feels that her edema has worsened since this time. Reports pain is stable. Does state that swelling causes discomfort with ambulation. Denies vaginal bleeding, discharge, and drainage. [] Past Medical History Past Medical History (Chronic Problems): Chronic Problems (Last Reviewed 10/25/19 @ 11:[address] 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 Lissette Nolasco MD) Back problem M53.9 Bladder infection N30.90 Excessive weight loss R63.4 EXCESSIVE WEIGHT LOSS AFTER GASTRIC BYPASS PROCEDURE Gallstones K80.20 Intertrigo L30.4 ABDOMINAL WALL SKIN CREASE INTERTRIGO Kidney stones N20.0 Soft tissue mass M79.9 PAINFUL SOFT TISSUE MASS PUBIC AREA Stomach ulcer K25.9 Vitamin deficiency E56.9 High blood pressure I10 Allergies methocarbamol Allergy (Verified 10/24/19 07:23) Chest tightness gabapentin Adverse Reaction (Verified 10/24/19 07:23) abnormal gait ketorolac tromethamine [From Toradol] Adverse Reaction (Verified 10/24/19 07:23) Upset Stomach NSAIDS (Non-Steroidal Anti-Inflamma Adverse Reaction (Verified 10/24/19 07:23) gastric bipass not supposed to take tramadol Adverse Reaction (Verified 10/24/19 07:23) Upset Stomach Home Medications: Ambulatory Orders Medication Instructions Recorded Amitriptyline HCl [Elavil] 50 mg PO QHS PRN 04/30/17 Ergocalciferol [Vitamin D] 50,000 unit PO TUTH 04/30/17 Etonogestrel [Nexplanon (Bkc)] 68 mg SQ UD 04/30/17 Tamsulosin HCl [Flomax] 0.4 mg PO DAILY PRN 04/30/17 Lisinopril [Zestril] 40 mg PO BID 05/30/17 Cyanocobalamin [Vitamin B12] 1,000 mcg IM Q30D 07/06/17 Ondansetron [Zofran Odt] 4 mg PO 4X/DAY PRN PRN #30 tab 03/16/19 Hydrocodone/Acetaminophen [Snyder 1 ea PO 4X/DAY PRN PRN 08/03/19 5-325 Tablet] Surgical History: Surgical History (Last Reviewed 10/25/19 @ 11:[address] Lissette Nolasco MD) History of cholecystectomy Z98.890, Z90.49 History of gastric bypass Z98.84 LAPAROSCOPIC MARY-EN-Y PROCEDURE AT [facility] 2016 History of incision and drainage Z98.890 INCISION AND DRAINAGE POST OP HEMATOMA ABDOMINAL WALL 09/17/16 History of incision and drainage Z98.890 INCISION AND DRAINAGE INFECTED POST OP ABDOMINAL WALL SEROMA 10/20/2016 History of nephrolithotomy with removal of calculi Z98.890, Z87.442 2 STONES REMOVED History of thyroidectomy E89.0 LEFT THYROID REMOVED Status post panniculectomy Onset Date: ~09/17/16 Z98.890 Surgical History: cholecystectomy, gastric bypass, - - gastric bypass 04/18/15,thyroid nodular surgery, I+D abdominal wall and pelvic mass 05/03/17, Psychiatric History: No pertinent psych hx 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 Lissette Nolasco MD) Mother Anxiety Bleeding disorder Depression Hypertension High cholesterol Cancer Father Diabetes Hypertension Grandfather Colon cancer Diabetes Heart disease History Items: Hypertension Paternal Family History: Family History (Last Reviewed 10/25/19 @ 11:[address] Lissette Nolasco MD) Mother Anxiety Bleeding disorder Depression Hypertension High cholesterol Cancer Father Diabetes Hypertension Grandfather Colon cancer Diabetes Heart disease History Items: Hypertension Review of Systems Cardiovascular: Denies: Chest Pain, Chest Tightness Respiratory: Denies: Shortness of Breath Gastrointestinal: Reports: Abdominal Pain, Vomiting. Denies: Constipation, Diarrhea, Nausea Genitourinary: Reports: Dysuria - discomfort with urination due to degree of swelling. Denies: Incontinence, Retention Gynecological: Denies: Excessively long or heavy periods, Sexual concerns, Vaginal bleeding, Vaginal discharge, Vaginal itching Patient Problems: Active and Suspected Problems (Last Reviewed 10/25/19 @ 11:[address] Lissette Nolasco MD) Cellulitis of abdominal wall (Acute) - Physical Exam Vitals/I&O's: Vital Signs Temp Pulse Resp BP Pulse Ox 98.0 F 115 H 18 114/57 L 94 10/25/19 05:15 10/25/19 06:00 10/25/19 05:15 10/25/19 05:15 10/25/19 07:24 Oxygen Delivery Method Room Air Weight: 219 lb 5.759 oz Body Mass Index (BMI) 35.4 Intake and Output for Last 24 Hours 10/23/19 10/24/19 10/25/19 23:59 23:59 23:59 Intake Total 2852 / 3652 1496 / 1496 Balance 2852 / 3652 1496 / 1496 General: Alert, Oriented x3, Cooperative, No apparent distress, Well developed, Well nourished HEENT: Atraumatic, PERRLA, EOMI, Normocephalic Oral: Moist Mucosa Neck: Supple, No JVD, No Nuchal Rigidity Lungs: Normal air movement Abdomen: Soft, Obese, - - Area of ulceration unchanged from those marked. Large ulcerated lesion with evidence of prior incisions present. Extremities: No clubbing, No cyanosis, No edema Skin: Ulcer/ Wound Neurological: Cranial nerves II-XII grossly intact, Neuro grossly intact Psych/Mental Status: Alert and oriented to time, place, person, mood and affect Comment: Edema of B/L labia L>R, no area of fluctuance, no evidence of abscess Laboratory Results 10/24/19 09:50: Urine Color Yellow, Urine Clarity Sl. Cloudy, Urine pH 7.0, Ur Specific [place] 1.005, Urine Protein 15 H, Urine Glucose (UA) Normal, Urine Ketones 5 H, Urine Occult Blood 10 H, Urine Nitrite Negative, Urine Bilirubin Negative, Urine Urobilinogen Normal, Ur Leukocyte Esterase 500 H, Urine RBC 0 SEEN, Urine WBC 0-5 SEEN, Ur Squamous Epith Cells 10-25 SEEN, Urine Bacteria 1+, Urine Mucus 0 SEEN 10/24/19 12:30: S.aureus Protein A PCR POSITIVE H, MRSA (PCR) Negative 10/25/19 05:44: WBC 15.6 H, RBC 3.52 L, Hgb 8.2 L, Hct 26.3 L, MCV 74.7 L, MCH 23.3 L, MCHC 31.2 L, RDW Std Deviation 44.9 H, RDW Coeff of Andrez 16.9 H, Plt Count 366, MPV 10.4, Immature Gran % (Auto) 0.800, Neut % (Auto) 83.4 H, Lymph % (Auto) 4.9 L, [place] % (Auto) 6.1, Eos % (Auto) 4.2, Baso % (Auto) 0.6, Absolute Neuts (auto) 13.0 H, Absolute Lymphs (auto) 0.76 L, Nucleated RBC % 0, Differential Comment SCANNED, Toxic Granulation 2+, Hypochromasia 2+, Microcytosis 3+ 10/25/19 05:44: Sodium 134 L, Potassium 3.3 L, Chloride 104, Carbon Dioxide 23.0, Anion Gap 7, BUN 11, Creatinine 0.80, Estim Creat Clear Calc 93.63, Est GFR (MDRD) Af Amer 105, Est GFR (MDRD) Non-Af 87, BUN/Creatinine Ratio 13.7, Glucose 98, Calcium 8.1 L Current Medications Acetaminophen (Tylenol) 650 mg PO Q6H PRN PRN PRN Reason: Pain Score 1-10/Temp > 100.7 F Last Admin: 10/24/19 12:36 Dose: 650 mg Documented by: Amitriptyline HCl (Elavil) 50 mg PO QHS PRN PRN Reason: SLEEP Last Admin: 10/24/19 22:49 Dose: 50 mg Documented by: Hydromorphone HCl (Dilaudid Inj) 1 mg IV Q4H PRN PRN PRN Reason: Pain Score 6-10/10 Last Admin: 10/25/19 05:29 Dose: 1 mg Documented by: Piperacillin Sod/Tazobactam (Sod 3.375 gm/ Sodium Chloride) 50 mls @ 12.5 mls/hr IV Q8 [facility] Last Admin: 10/25/19 06:45 Dose: 12.5 mls/hr Documented by: Clindamycin Phosphate 900 mg/ (Dextrose) 106 mls @ 150 mls/hr IV Q8 [facility] Last Infusion: 10/25/19 06:00 Dose: Infused Documented by: Sodium Chloride () 250 mls @ 15 mls/hr IV .[id number] PRN PRN Reason: Saline Flush Sodium Chloride () 250 mls @ 15 mls/hr IV .[id number] PRN PRN Reason: Additional IVPB Infusion Lactobacillus Acidophilus (Acidophilus) 1 tablet PO TID [facility] Last Admin: 10/25/19 05:12 Dose: 1 tablet Documented by: Lisinopril (Zestril) 40 mg PO BID [facility] Last Admin: 10/24/19 21:29 Dose: 40 mg Documented by: Nutritional Formula (Lactose Free) (Ensure Enlive) 120 ml PO 4X/DAY [facility] Last Admin: 10/24/19 21:17 Dose: Not Given Documented by: Ondansetron HCl (Zofran) 4 mg IV Q8H PRN PRN PRN Reason: NAUSEA/VOMITING Oxycodone HCl (Oxyir) 5 mg PO Q4H PRN PRN PRN Reason: Pain Score 4-5/10 Last Admin: 10/24/19 18:59 Dose: 5 mg Documented by: Senna/Docusate Sodium (Senokot-S, Catrachita-Colace) 2 tablet PO BID PRN PRN PRN Reason: Constipation Sodium Chloride () 10 - 40 ml IV UD PRN PRN Reason: SALINE FLUSH Last Admin: 10/25/19 05:35 Dose: 10 ml Documented by: Tamsulosin HCl (Flomax) 0.4 mg PO DAILY PRN PRN Reason: kidney stones Assessment/Plan All Active Problems (Last Reviewed 10/25/19 @ 11:[address] Lissette Nolasco MD) Cellulitis of abdominal wall (Acute) 1. Labial swelling - exam consistent with dependent edema likely related to infection - no evidence of labial abscess. No vaginal bleeding/discharge - CT A/P on admit showed evidence of labial edema, but no discrete abscess - recommended ice packs to labia to help with discomfort - no indication for gynecologic intervention at this time - will follow peripherally. If additional input needed, please feel free to contact me. 2. Abdominal wall cellulitis - Defer management to primary Multi Select Codes - Visit Charges Office Visit/Consults: 41144 IP Consult L3 Physical Exam - Physical Exam Vital Signs Temp 98.5 F 10/25/19 09:03 Pulse 100 10/25/19 09:03 Resp 18 10/25/19 09:03 BP 110/64 10/25/19 09:03 Pulse Ox 97 10/25/19 09:03 Intake & Output 10/23/19 10/24/19 10/25/19 23:59 23:59 23:59 Intake Total 2852 / 3652 1546 / 1546 Balance 2852 / 3652 1546 / 1546 Weight: 219 lb 5.759 oz 219 lb 5.759 oz Intake: Oral 1300 / 1300 Intake, IV Amount 2852 / 2852 246 / 246 0.9% Normal Saline 1,000 ML @ 960 / 960 40 / 40 100 mls/hr IV .Q10H RAUL Rx#: [id number] 0.9% Normal Saline 1,000 ML @ 1000 / 1000 999 mls/hr IV .Q1H1M ONE Rx#: [id number] Cleocin 900 MG In Dextrose 5%- 212 / 212 106 / 106 Water 100 ML @ 150 mls/hr IV Q8 [facility] Rx#:[id number] Vancomycin IV 1,000 MG/20 ML In 530 / 530 0.9% Normal Saline 500 ML @ 250 mls/hr IV X1 ONE Rx#: [id number] Zosyn 3.375 GM In 0.9% Normal 50 / 50 Saline 50 ML @ 100 mls/hr IV X1 ONE Rx#:[id number] Zosyn 3.375 GM In 0.9% Normal 100 / 100 Saline 50 ML @ 12.5 mls/hr IV Q8 RAUL Rx#:[id number] Zosyn 4.5 GM In 0.9% Normal 100 / 100 Saline 100 ML @ 200 mls/hr IV X1 ONE Rx#:[id number] Microbiology Past 72 Hours 10/24/19 12:30 Wound Culture - Preliminary Wound - Abdominal Staphylococcus aureus Gram positive organism 10/24/19 09:50 Urine Culture - Final Urine, Clean Catch Mixed Gram Pos & Gram Neg Org Laboratory Tests Past 24 Hrs 10/24/19 10/25/19 10/25/19 12:30 05:44 05:44 WBC 15.6 H RBC 3.52 L Hgb 8.2 L Hct 26.3 L MCV 74.7 L MCH 23.3 L MCHC 31.2 L RDW Std Deviation 44.9 H RDW Coeff of Andrez 16.9 H Plt Count 366 MPV 10.4 Immature Gran % (Auto) 0.800 Neut % (Auto) 83.4 H Lymph % (Auto) 4.9 L [place] % (Auto) 6.1 Eos % (Auto) 4.2 Baso % (Auto) 0.6 Absolute Neuts (auto) 13.0 H Absolute Lymphs (auto) 0.76 L Nucleated RBC % 0 Differential Comment SCANNED Toxic Granulation 2+ Hypochromasia 2+ Microcytosis 3+ Sodium 134 L Potassium 3.3 L Chloride 104 Carbon Dioxide 23.0 Anion Gap 7 BUN 11 Creatinine 0.80 Estim Creat Clear Calc 93.63 Est GFR (MDRD) Af Amer 105 Est GFR (MDRD) Non-Af 87 BUN/Creatinine Ratio 13.7 Glucose 98 Calcium 8.1 L S.aureus Protein A PCR POSITIVE H MRSA (PCR) Negative
[2019-10-25] MEDS: Acetaminophen 325 MG Tablet 650 MG PO ×2 (09:08→15:55)
[2019-10-25] MEDS: oxyCODONE 5 MG Tablet PO (09:08)
[2019-10-25] MEDS: Lisinopril 40 MG Tablet PO ×2 (09:09→22:32)
--- NOTE | 2019-10-25 12:10 | CASEMGMT ---
SW completed a Healthcare Power of Design Drafter and a Healthcare Living Will with patient. Copies were made and given to patient along with originals. A copy of each was also placed in patient's chart. Toshia AHUMADA
--- NOTE | 2019-10-25 13:21 | PCM.PN.SRG ---
Patient Problems: Active and Suspected Problems (Last Reviewed 10/25/19 @ 11:[address] Lissette Nolasco MD) Cellulitis of abdominal wall (Acute) Subjective: Patient states she is feeling better with less pain. Objective: Sitting up in bed. - Physical Exam Vitals/I&O's: Vital Signs Temp Pulse Resp BP Pulse Ox 98.1 F 92 18 142/79 H 100 10/26/19 09:10 10/26/19 09:10 10/26/19 09:10 10/26/19 09:10 10/26/19 09:10 Oxygen Delivery Method Room Air Weight: 219 lb 5.759 oz Body Mass Index (BMI) 35.4 Intake and Output for Last 24 Hours 10/24/19 10/25/19 10/26/19 23:59 23:59 23:59 Intake Total 2852 / 3652 2708 / 2708 161.0 / 161.0 Balance 2852 / 3652 2708 / 2708 161.0 / 161.0 General: Alert, Oriented x3 HEENT: Atraumatic Oral: Moist Mucosa Lungs: Normal air movement Cardiovascular: Regular rate Abdomen: Obese, Tender Extremities: Capillary Refill Less than 3 Seconds Skin: Ulcer/ Wound - Lower mid abdomen ulcer that is approx. 2.5 cm diameter. Errythema present across width of pannus. Vulva and mons pubis are more swollen than usual and firm and tender to palpation. Musculoskeletal: No Tenderness to Palpation of Joints or Extremities Neurological: Cranial nerves II-XII grossly intact Psych/Mental Status: Normal Affect, Appropriate Microbiology Past 72 Hours 10/24/19 12:30 Wound - Abdominal Gram Stain - Final 10/24/19 12:30 Wound - Abdominal Wound Culture - Preliminary Staphylococcus aureus Gram positive roni 10/24/19 07:22 Blood Culture (Wb) - Left Hand Blood Culture - Preliminary No growth in 48 hours. 10/24/19 07:06 Blood Culture (Wb) - Right Forearm Blood Culture - Preliminary No growth in 48 hours. 10/24/19 09:50 Urine, Clean Catch Urine Culture - Final Mixed Gram Pos & Gram Neg Org Laboratory Results 10/26/19 05:35: WBC 13.8 H, RBC 3.50 L, Hgb 8.1 L, Hct 25.7 L, MCV 73.4 L, MCH 23.1 L, MCHC 31.5 L, RDW Std Deviation 43.8, RDW Coeff of Andrez 16.4 H, Plt Count 461 H, MPV 11.8, Immature Gran % (Auto) 1.200 H, Neut % (Auto) 83.0 H, Lymph % (Auto) 5.9 L, [place] % (Auto) 5.1, Eos % (Auto) 4.4, Baso % (Auto) 0.4, Absolute Neuts (auto) 11.5 H, Absolute Lymphs (auto) 0.81 L, Nucleated RBC % 0 10/26/19 05:35: Prealbumin 6.3 L Current Medications Acetaminophen (Tylenol) 650 mg PO Q6H PRN PRN PRN Reason: Pain Score 1-10/Temp > 100.7 F Last Admin: 10/25/19 15:55 Dose: 650 mg Documented by: Amitriptyline HCl (Elavil) 50 mg PO QHS PRN PRN Reason: SLEEP Last Admin: 10/24/19 22:49 Dose: 50 mg Documented by: Hydromorphone HCl (Dilaudid Tablet) 2 - 4 mg PO Q4H PRN PRN PRN Reason: Pain Score 6-10/10 Last Admin: 10/26/19 09:07 Dose: 4 mg Documented by: Piperacillin Sod/Tazobactam (Sod 3.375 gm/ Sodium Chloride) 50 mls @ 12.5 mls/hr IV Q8 [facility] Last Admin: 10/26/19 06:23 Dose: 12.5 mls/hr Documented by: Clindamycin Phosphate 900 mg/ (Dextrose) 106 mls @ 150 mls/hr IV Q8 [facility] Last Infusion: 10/26/19 06:05 Dose: Infused Documented by: Sodium Chloride () 250 mls @ 15 mls/hr IV .[id number] PRN PRN Reason: Saline Flush Last Infusion: 10/26/19 06:23 Dose: 0 mls/hr Documented by: Sodium Chloride () 250 mls @ 15 mls/hr IV .[id number] PRN PRN Reason: Additional IVPB Infusion Lactobacillus Acidophilus (Acidophilus) 1 tablet PO TID [facility] Last Admin: 10/26/19 05:25 Dose: 1 tablet Documented by: Lisinopril (Zestril) 40 mg PO BID [facility] Last Admin: 10/26/19 08:59 Dose: 40 mg Documented by: Ondansetron HCl (Zofran) 4 mg IV Q8H PRN PRN PRN Reason: NAUSEA/VOMITING Oxycodone HCl (Oxyir) 5 mg PO Q4H PRN PRN PRN Reason: Pain Score 6-10/10 Last Admin: 10/25/19 09:08 Dose: 5 mg Documented by: Senna/Docusate Sodium (Senokot-S, Catrachita-Colace) 2 tablet PO BID PRN PRN PRN Reason: Constipation Sodium Chloride () 10 - 40 ml IV UD PRN PRN Reason: SALINE FLUSH Last Admin: 10/25/19 11:12 Dose: 10 ml Documented by: Tamsulosin HCl (Flomax) 0.4 mg PO DAILY PRN PRN Reason: kidney stones Medical Necessity - Tobacco Use Smoking Status: Never smoker Assessment/Plan All Active Problems (Last Reviewed 10/25/19 @ 11:[address] Lissette Nolasco MD) Cellulitis of abdominal wall (Acute) Cellulitis of abdominal wall (Acute) 1. Nonhealing ulcer abdominal wall and vulva involving the mons pubis with surrounding cellulitis. 2. 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 3. 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 Continue Cleocin and Zosyn. Wound culture shows preliminary MSSA. Continue Silver dressing changes to the nonhealing ulcer abdominal wall and vulva involving the mons pubis. If the cellulitis persists despite IV antibiotics or if the fever persists, then she will need operative intervention with incision and drainage and excisional debridement abdominal wall tissue. She has had necrotizing soft tissue infections in the past. Will check a Prealbumin and encourage nutritional supplementation with protein to help the healing process. Patient was informed of the risks and complications of the procedure including alternatives to surgery. These were discussed with the patient personally. Patient voices understanding and wishes to proceed with the current plan of IV antibiotics and close observation. Patient understands that surgery may be necessary. After discharge, [facility] at [facility]. Inpatient E&M: 04108 Subs Hosp L1 - ICD-10 - L98.492, N76.6, L03.311, R63.4, I89.0
--- NOTE | 2019-10-25 13:22 | PCM.WC.PN ---
(1) Cellulitis of abdominal wall Status: Acute Current Visit: Yes Code(s): L03.311 - Cellulitis of abdominal wall (2) Skin ulcer of abdominal wall with fat layer exposed Status: Chronic Current Visit: Yes Code(s): L98.492 - Non-pressure chronic ulcer of skin of other sites with fat layer exposed (3) Local infection of the skin and subcutaneous tissue, unspecified Status: Chronic Current Visit: Yes Code(s): L08.9 - Local infection of the skin and subcutaneous tissue, unspecified (4) Lymphedema of genitalia Status: Chronic Current Visit: Yes Code(s): I89.0 - Lymphedema, not elsewhere classified Type of Wound Date of Service: 10/25/19 Chief Complaint: Nonhealing ulcer anterior abdominal wall and vulva. History of Wound: Surgery 03/28/19 - Surgical preparation lower anterior abdominal wall with incision and drainage and excisional debridement skin, subcutaneous tissue, and fascia necrotizing soft tissue infection abscess (660 cm2). Surgery 03/13/19 - Surgical preparation abdominal wall area with incision and drainage and excisional debridement necrotic infected seroma including umbilicus (182 cm2) and surgical preparation vulva involving the mons pubis area with incision and drainage and excisional debridement necrotic infected seroma (52 cm). Surgery 02/21/19 - Surgical preparation vulva involving mons pubis with excisional debridement painful infected skin graft scar contour deformity and reconstruction with abdominal wall advancement skin flap (215 cm2) and complex secondary wound closure. Wound care -Start collagen hydrogel covered by Adaptic and then topped with gauze daily. Wound culture from 05/31/19 showed Pseudomonas aeroginosa and Corynebacterium striatum. She was placed on Cipro and Augmentin. Operative culture from 03/28/19 showed Pseudomonas aeroginosa and Anaerobic cocci. Wound culture the day before the surgery on 03/27/19 showed Pseudomonas aeroginosa, Methicillin resistant Staphylococcus haemolyticus, and Staphylococcus hominis hominis. She was placed on Levaquin and Flagyl and finished them. Prealbumin from 03/28/19 was 9.3. Encourage nutritional supplementation with protein to help the healing process. She went back to work and was doing ok. She is temporarily laid off because of the Coronavirus until her ulcer has healed. Today she denies fever. Her appetite is ok. - Physical Exam Vital Signs Temp Pulse Resp BP Pulse Ox 98.4 F 92 18 121/63 H 100 10/25/19 11:59 10/25/19 11:59 10/25/19 11:59 10/25/19 11:59 10/25/19 11:59 Assessment/Plan Clinical Impression(s) from Imaging Studies Abdomen/Pelvis CT 10/24/19 06:59 IMPRESSION: Status post subtotal gastrectomy. Tissue defect in the anterior lower left abdominal wall described with edematous changes which progress E into the mons pubis worse on the left side. Bilateral ovarian cysts. Electronically Signed: Demetrius Roma, at 9:49 EDT , Service support , Active Problems (Last Reviewed 10/25/19 @ 11:[address] 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) Local infection of the skin and subcutaneous tissue, unspecified (Chronic) Lymphedema of genitalia (Chronic) Assessment: 1. Nonhealing ulcer anterior abdominal wall and vulva. 2. 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 3. Pseudomonas infection. 4. 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 Plan: Patient was [facility] and [facility]. She refused a subcutaneous debridement, but she allowed a selective debridement with moistened gauze to remove the dry slough/biofilm from around the ulcer site. The ulcer is improving. Wound care: She will wash daily with soap and water. Will start her on Collagen Hydrogel covered by adaptic daily topped with dry gauze. She has been doing her own dressing changes at home. She had an EGD last and she has multiple ulcers which were causing her gastric pain. She has been on Protonix and Carafate over the past couple days. Wound culture from 05/31/2019 positive for Pseudomonas aeroginosa and Corynebacterium striatum. The Levaquin was stopped because it is resistant and she was placed on Cipro and Augmentin (since the ED did not do an anaerobic culture, the Augmentin will cover that and the Corynebacterium). She has completed all her antibiotics. Instructed her to eat yogurt daily since she states she can not afford a probiotic. Her Prealbumin from 03/28/19 was 9.3. Encourage nutritional supplementation with protein to help the healing process. Continue abdominal binder. Followup 3 weeks.
[2019-10-25] MEDS: HYDROmorphone 2 MG TABLET PO ×2 (15:55→19:59)
[2019-10-26 03:10] VITALS: BP 113/66; PULSE 94; RESP 16; TEMP 37; O2SAT 99
[2019-10-26] MEDS: HYDROmorphone 2 MG TABLET PO ×3 (03:13→18:15)
[2019-10-26 06:15] LABS: Absolute Lymphocyte Count 0.81 X10^3/uL (0.83-4.51); Absolute Neutrophil Count 11.5 X10^3/uL (2.0-7.7); Basophil# 0.06 X10^3/uL; Basophil% 0.4 % (0-1); Eosinophil# 0.61 X10^3/uL; Eosinophils% 4.4 % (0-5); Hematocrit 25.7 % (37-47); Hemoglobin 8.1 g/dL (12.0-15.0); Lymphocyte # 0.81 X10^3/ul (4.0); Lymphocyte % 5.9 % (19-41); Mean Corp Hgb Conc 31.5 g/dL (32-36); Mean Corpuscular Hgb 23.1 pg (27.0-32.0); Mean Corpuscular Volume 73.4 fL (81-99); Mean Platelet Vol. 11.8 fl (6.2-12.0); Monocyte% 5.1 % (0-10); NRBC Flagged by Analyzer 0 % (0-5); Neutrophil # 11.48 X10^3/uL (2.7-7.7); Platelet Count 461 K/mm3 (150-450); RBC Distribution Width CV 16.4 % (11.6-14.6); RBC Distribution Width SD 43.8 fl (35.1-43.9); White Blood Count 13.8 K/mm3 (4.4-11.0)
[2019-10-26 06:42] LABS: Prealbumin 6.3 mg/dL (20.0-40.0)
--- NOTE | 2019-10-26 08:08 | PN_ITS ---
Patient Problems: Active and Suspected Problems (Last Reviewed 10/25/19 @ 11:[address] Lissette Nolasco MD) Cellulitis of abdominal wall (Acute) Subjective: Chief complaint: Follow-up after admission for acute cellulitis of the lower abdominal wall/lower abdominal wall infected ulcer/sepsis. Patient seen and examined. No acute events overnight. She is feeling better. Lower abdominal pain is getting better as well as the erythema. Denied fever or chills. Other vital signs are stable. - Physical Exam Vitals/I&O's: Vital Signs Temp Pulse Resp BP Pulse Ox 98.6 F 94 16 113/66 99 10/26/19 03:10 10/26/19 03:10 10/26/19 03:10 10/26/19 03:10 10/26/19 03:10 Oxygen Delivery Method Room Air Weight: 219 lb 5.759 oz Body Mass Index (BMI) 35.4 Intake and Output for Last 24 Hours 10/24/19 10/25/19 10/26/19 23:59 23:59 23:59 Intake Total 2852 / 3652 2708 / 2708 161.0 / 161.0 Balance 2852 / 3652 2708 / 2708 161.0 / 161.0 General: Alert, Oriented x3, Cooperative, No apparent distress HEENT: Atraumatic, PERRLA, EOMI, Normocephalic Oral: Moist Mucosa, No Gingival or Mucosal Lesions/ Ulcerations Neck: Supple, No JVD, Negative Carotid Bruits, Trachea Midline, Thyroid Normal Size and Texture Lungs: Clear to auscultation, Normal air movement, No rhonchi, No wheeze, No rales Cardiovascular: Regular rate, Regular Rhythm, Normal S1, Normal S2, PMI Normal Abdomen: Bowel Sounds Present, Soft, Non Tender, Non-Distended, No Hepato- splenomegaly, Obese Extremities: No clubbing, No cyanosis, No edema Skin: No rashes, Ulcer/ Wound, - - Lower abdomen: Erythema and swelling of the lower abdomen is improving. Midline nonhealing ulcer measuring about 5 x 5 cm with minimal serous drainage, no pus, no foul-smelling. Lymphatic: No Cervical, Supraclavicular, or Inguinal Adenopathy Neurological: Cranial nerves II-XII grossly intact, Neuro grossly intact Psych/Mental Status: Normal Affect, Appropriate, Alert and oriented to time, place, person, mood and affect Microbiology Past 72 Hours 10/24/19 12:30 Wound - Abdominal Gram Stain - Final 10/24/19 12:30 Wound - Abdominal Wound Culture - Preliminary Staphylococcus aureus Gram positive organism 10/24/19 09:50 Urine, Clean Catch Urine Culture - Final Mixed Gram Pos & Gram Neg Org Laboratory Results 10/26/19 05:35: WBC 13.8 H, RBC 3.50 L, Hgb 8.1 L, Hct 25.7 L, MCV 73.4 L, MCH 23.1 L, MCHC 31.5 L, RDW Std Deviation 43.8, RDW Coeff of Andrez 16.4 H, Plt Count 461 H, MPV 11.8, Immature Gran % (Auto) 1.200 H, Neut % (Auto) 83.0 H, Lymph % (Auto) 5.9 L, [place] % (Auto) 5.1, Eos % (Auto) 4.4, Baso % (Auto) 0.4, Absolute Neuts (auto) 11.5 H, Absolute Lymphs (auto) 0.81 L, Nucleated RBC % 0 10/26/19 05:35: Prealbumin 6.3 L Current Medications Acetaminophen (Tylenol) 650 mg PO Q6H PRN PRN PRN Reason: Pain Score 1-10/Temp > 100.7 F Last Admin: 10/25/19 15:55 Dose: 650 mg Documented by: Amitriptyline HCl (Elavil) 50 mg PO QHS PRN PRN Reason: SLEEP Last Admin: 10/24/19 22:49 Dose: 50 mg Documented by: Hydromorphone HCl (Dilaudid Tablet) 2 - 4 mg PO Q4H PRN PRN PRN Reason: Pain Score 6-10/10 Last Admin: 10/26/19 03:13 Dose: 2 mg Documented by: Piperacillin Sod/Tazobactam (Sod 3.375 gm/ Sodium Chloride) 50 mls @ 12.5 mls/hr IV Q8 [facility] Last Admin: 10/26/19 06:23 Dose: 12.5 mls/hr Documented by: Clindamycin Phosphate 900 mg/ (Dextrose) 106 mls @ 150 mls/hr IV Q8 [facility] Last Infusion: 10/26/19 06:05 Dose: Infused Documented by: Sodium Chloride () 250 mls @ 15 mls/hr IV .[id number] PRN PRN Reason: Saline Flush Last Infusion: 10/26/19 06:23 Dose: 0 mls/hr Documented by: Sodium Chloride () 250 mls @ 15 mls/hr IV .[id number] PRN PRN Reason: Additional IVPB Infusion Lactobacillus Acidophilus (Acidophilus) 1 tablet PO TID [facility] Last Admin: 10/26/19 05:25 Dose: 1 tablet Documented by: Lisinopril (Zestril) 40 mg PO BID [facility] Last Admin: 10/25/19 22:32 Dose: 40 mg Documented by: Ondansetron HCl (Zofran) 4 mg IV Q8H PRN PRN PRN Reason: NAUSEA/VOMITING Oxycodone HCl (Oxyir) 5 mg PO Q4H PRN PRN PRN Reason: Pain Score 6-10/10 Last Admin: 10/25/19 09:08 Dose: 5 mg Documented by: Senna/Docusate Sodium (Senokot-S, Catrachita-Colace) 2 tablet PO BID PRN PRN PRN Reason: Constipation Sodium Chloride () 10 - 40 ml IV UD PRN PRN Reason: SALINE FLUSH Last Admin: 10/25/19 11:12 Dose: 10 ml Documented by: Tamsulosin HCl (Flomax) 0.4 mg PO DAILY PRN PRN Reason: kidney stones Medical Necessity - Tobacco Use Smoking Status: Never smoker Assessment/Plan All Active Problems (Last Reviewed 10/25/19 @ 11:[address] Lissette Nolasco MD) Cellulitis of abdominal wall (Acute) This is a 34 years old female patient presented to the emergency room because of lower abdominal pain, swelling, redness and fever, found to have sepsis secondary to acute cellulitis of the lower abdominal wall with newly opened infected ulcer and cellulitis is extending down to the labia majora. #1 acute cellulitis of the lower abdominal wall with extension down to the labia majora/lower abdominal wall infected ulcer/sepsis: Remains on IV Zosyn and clindamycin. She has been afebrile for more than 24 hours, leukocytosis is trending down. Other vital signs are stable, no more tachycardia. Blood cultures pending. Urine culture revealed mixed growth. Wound culture revealed staph aureus and gram-positive organism, final is pending. [employer] consulted for extensive swelling and erythema of labia majora and stated due to extension of the lower abdominal cellulitis, no localized abscess to the labia majora. Dr. Mendieta on the case. Plan to continue same treatment, awaiting final culture results. #2 chronic anemia: Baseline hemoglobin has been around 8 to 11 g/dL. Admission hemoglobin is 9.9 g/dL, today's hemoglobin is 8.1 g/dL, stable at baseline. No evidence of active bleeding. Plan to monitor. #3 hypertension: Blood pressure stable, continue lisinopril. #4 history of nephrolithiasis: Stable, kidney function is normal. #5 DVT prophylaxis: Low risk patient, no prophylaxis indicated. This note was generated with [employer] dictation software. It may contain incorrect words, spelling, and punctuation that were not noted in checking the note before signing. Inpatient E&M: 79464 Subs Hosp L2
[2019-10-26] MEDS: Lisinopril 40 MG Tablet PO ×2 (08:59→21:34)
[2019-10-26 09:10] VITALS: BP 142/79; PULSE 92; RESP 18; TEMP 36.7; O2SAT 100
--- NOTE | 2019-10-26 09:22 | NURSING ---
wound photo: abdomen
[2019-10-26] MEDS: oxyCODONE 5 MG Tablet PO ×2 (12:33→23:58)
[2019-10-26] MEDS: Acetaminophen 325 MG Tablet 650 MG PO (12:33)
[2019-10-26 12:54] VITALS: O2SAT 98
--- NOTE | 2019-10-26 13:39 | PN.SURG_ITS ---
Patient Problems: Active and Suspected Problems (Last Reviewed 10/25/19 @ 11:[address] Lissette Nolasco MD) Cellulitis of abdominal wall (Acute) Subjective: Patient states she is feeling better with less pain. - Physical Exam Vitals/I&O's: Vital Signs Temp Pulse Resp BP Pulse Ox 98.1 F 92 18 142/79 H 98 10/26/19 09:10 10/26/19 09:10 10/26/19 09:10 10/26/19 09:10 10/26/19 12:54 Oxygen Delivery Method Room Air Weight: 219 lb 5.759 oz Body Mass Index (BMI) 35.4 Intake and Output for Last 24 Hours 10/24/19 10/25/19 10/26/19 23:59 23:59 23:59 Intake Total 2852 / 3652 2708 / 2708 161.0 / 161.0 Balance 2852 / 3652 2708 / 2708 161.0 / 161.0 General: Alert, Oriented x3, Cooperative HEENT: Atraumatic Oral: Moist Mucosa Lungs: Normal air movement Cardiovascular: Regular rate Abdomen: Soft, Tender Extremities: Capillary Refill Less than 3 Seconds Skin: Ulcer/ Wound - Lower mid abdomen ulcer. Errythema present across width of pannus is decreasing. Vulva and mons pubis are more swelling are stable but continues to be more swollen than usual. Musculoskeletal: No Tenderness to Palpation of Joints or Extremities Neurological: Cranial nerves II-XII grossly intact Psych/Mental Status: Normal Affect, Appropriate Microbiology Past 72 Hours 10/24/19 12:30 Wound - Abdominal Gram Stain - Final 10/24/19 12:30 Wound - Abdominal Wound Culture - Preliminary Staphylococcus aureus Gram positive roni 10/24/19 07:22 Blood Culture (Wb) - Left Hand Blood Culture - Preliminary No growth in 48 hours. 10/24/19 07:06 Blood Culture (Wb) - Right Forearm Blood Culture - Preliminary No growth in 48 hours. 10/24/19 09:50 Urine, Clean Catch Urine Culture - Final Mixed Gram Pos & Gram Neg Org Laboratory Results 10/26/19 05:35: WBC 13.8 H, RBC 3.50 L, Hgb 8.1 L, Hct 25.7 L, MCV 73.4 L, MCH 23.1 L, MCHC 31.5 L, RDW Std Deviation 43.8, RDW Coeff of Andrez 16.4 H, Plt Count 461 H, MPV 11.8, Immature Gran % (Auto) 1.200 H, Neut % (Auto) 83.0 H, Lymph % (Auto) 5.9 L, [place] % (Auto) 5.1, Eos % (Auto) 4.4, Baso % (Auto) 0.4, Absolute Neuts (auto) 11.5 H, Absolute Lymphs (auto) 0.81 L, Nucleated RBC % 0 10/26/19 05:35: Prealbumin 6.3 L Current Medications Acetaminophen (Tylenol) 650 mg PO Q6H PRN PRN PRN Reason: Pain Score 1-10/Temp > 100.7 F Last Admin: 10/26/19 12:33 Dose: 650 mg Documented by: Amitriptyline HCl (Elavil) 50 mg PO QHS PRN PRN Reason: SLEEP Last Admin: 10/24/19 22:49 Dose: 50 mg Documented by: Hydromorphone HCl (Dilaudid Tablet) 2 - 4 mg PO Q4H PRN PRN PRN Reason: Pain Score 6-10/10 Last Admin: 10/26/19 09:07 Dose: 4 mg Documented by: Piperacillin Sod/Tazobactam (Sod 3.375 gm/ Sodium Chloride) 50 mls @ 12.5 mls/hr IV Q8 [facility] Last Admin: 10/26/19 06:23 Dose: 12.5 mls/hr Documented by: Clindamycin Phosphate 900 mg/ (Dextrose) 106 mls @ 150 mls/hr IV Q8 [facility] Last Infusion: 10/26/19 06:05 Dose: Infused Documented by: Sodium Chloride () 250 mls @ 15 mls/hr IV .[id number] PRN PRN Reason: Saline Flush Last Infusion: 10/26/19 06:23 Dose: 0 mls/hr Documented by: Sodium Chloride () 250 mls @ 15 mls/hr IV .[id number] PRN PRN Reason: Additional IVPB Infusion Lactobacillus Acidophilus (Acidophilus) 1 tablet PO TID [facility] Last Admin: 10/26/19 05:25 Dose: 1 tablet Documented by: Lisinopril (Zestril) 40 mg PO BID [facility] Last Admin: 10/26/19 08:59 Dose: 40 mg Documented by: Ondansetron HCl (Zofran) 4 mg IV Q8H PRN PRN PRN Reason: NAUSEA/VOMITING Oxycodone HCl (Oxyir) 5 mg PO Q4H PRN PRN PRN Reason: Pain Score 6-10/10 Last Admin: 10/26/19 12:33 Dose: 5 mg Documented by: Senna/Docusate Sodium (Senokot-S, Catrachita-Colace) 2 tablet PO BID PRN PRN PRN Reason: Constipation Sodium Chloride () 10 - 40 ml IV UD PRN PRN Reason: SALINE FLUSH Last Admin: 10/25/19 11:12 Dose: 10 ml Documented by: Tamsulosin HCl (Flomax) 0.4 mg PO DAILY PRN PRN Reason: kidney stones Medical Necessity - Tobacco Use Smoking Status: Never smoker Assessment/Plan All Active Problems (Last Reviewed 10/25/19 @ 11:[address] Lissette Nolasco MD) Cellulitis of abdominal wall (Acute) Cellulitis of abdominal wall (Acute) 1. Nonhealing ulcer abdominal wall and vulva involving the mons pubis with surrounding cellulitis. 2. 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 3. 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 Continue Cleocin and Zosyn. Preliminary culture shows Staphylococcus aureus and Gram positive, anaerobic still pending. Continue Silver dressing changes to the nonhealing ulcer abdominal wall and vulva involving the mons pubis. The redness on her lower abdomen area is improving. Swelling of mons pubis is stable. If the cellulitis persists despite IV antibiotics or if the fever persists, then she will need operative intervention with incision and drainage and excisional debridement abdominal wall tissue. She has had necrotizing soft tissue infections in the past. Prealbumin 6.3. Encouraged nutritional supplementation with protein to help the healing process. Because of her gastric bypass she states she has a hard time drinking large volumes of fluid. Discussed sources of protein such as meat, dairy, nuts and legumes. Patient was informed of the risks and complications of the procedure including alternatives to surgery. These were discussed with the patient personally. Patient voices understanding and wishes to proceed with the current plan of IV antibiotics and close observation. Patient understands that surgery may be necessary. After discharge, followup at the [facility]. Inpatient E&M: [id number] Subs Hosp L1
[2019-10-26 20:56] VITALS: BP 138/73; PULSE 91; RESP 16; TEMP 37; O2SAT 99
[2019-10-26] MEDS: 0.9% Saline Lock 10 ML Syringe IV (21:29)
[2019-10-26] MEDS: Amitriptyline 25 MG Tablet 50 MG PO (22:29)
[2019-10-27 05:02] VITALS: BP 132/76; PULSE 87; RESP 16; TEMP 36.6; O2SAT 98
[2019-10-27 06:14] LABS: Absolute Lymphocyte Count 1.17 X10^3/uL (0.83-4.51); Absolute Neutrophil Count 5.8 X10^3/uL (2.0-7.7); Basophil# 0.07 X10^3/uL; Basophil% 0.9 % (0-1); Eosinophil# 0.48 X10^3/uL; Eosinophils% 5.9 % (0-5); Hematocrit 24.9 % (37-47); Hemoglobin 7.5 g/dL (12.0-15.0); Lymphocyte # 1.17 X10^3/ul (4.0); Lymphocyte % 14.3 % (19-41); Mean Corp Hgb Conc 30.1 g/dL (32-36); Mean Corpuscular Hgb 22.3 pg (27.0-32.0); Mean Corpuscular Volume 73.9 fL (81-99); Mean Platelet Vol. 11.3 fl (6.2-12.0); Monocyte# 0.55 X10^3/uL; Monocyte% 6.7 % (0-10); NRBC Flagged by Analyzer 0 % (0-5); Neutrophil # 5.75 X10^3/uL (2.7-7.7); Neutrophil % 70.2 % (47-70); Platelet Count 466 K/mm3 (150-450); RBC Distribution Width CV 16.9 % (11.6-14.6); RBC Distribution Width SD 44.3 fl (35.1-43.9); Red Blood Count 3.37 M/mm3 (4.2-5.4); White Blood Count 8.2 K/mm3 (4.4-11.0)
[2019-10-27 06:29] LABS: Anion Gap 7 (5-15); BUN 7 mg/dL (7-18); BUN/Creat Ratio 12.7 RATIO (10-20); Calcium,Total 8.3 mg/dL (8.5-10.1); Chloride 107 mmol/L (98-107); Creatinine, Serum 0.55 mg/dL (0.55-1.02); EST Glomerular Filtration Rate 134 mL/min (>60); Est Glom Filt Rate - Afr Amer 162 mL/min (>60); Glucose 83 mg/dL (74-106); Potassium 3.3 mmol/L (3.5-5.1); Sodium Level 137 mmol/L (136-145)
[2019-10-27] MEDS: oxyCODONE 5 MG Tablet PO ×2 (06:42→10:13)
[2019-10-27 07:58] VITALS: O2SAT 98
--- NOTE | 2019-10-27 09:42 | DCINST_ITS ---
- Discharge Diagnoses Current Active Problems: Current Active and Chronic Problems (Last Reviewed 10/25/19 @ 11:[address] 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) Local infection of the skin and subcutaneous tissue, unspecified (Chronic) Lymphedema of genitalia (Chronic) You will use the following diet at home:: Cardiac Your food should be the consistency of: Regular Discharge Activity: Return to Normal Activity Return to work on:: 10/30/19 Weight Bearing Status: Weight bearing as tolerated Call your doctor if your incision/area has: Continuous Slow Oozing, Increased Pain/ Swelling, Increased Redness, Foul Smelling Discharge, Swelling at the incision site Call your doctor if you observe: Fever of 101 or Higher, Shortness of breath, Dizziness, Fainting spells, Chest pain, Increased palpitations (irregular heartbeat), Uncontrolled pain Additional Instructions: Follow-up with the wound care center. Allergies/Adverse Reactions: Allergies methocarbamol Allergy (Verified 10/24/19 07:23) Chest tightness gabapentin Adverse Reaction (Verified 10/24/19 07:23) abnormal gait ketorolac tromethamine [From Toradol] Adverse Reaction (Verified 10/24/19 07:23) Upset Stomach NSAIDS (Non-Steroidal Anti-Inflamma Adverse Reaction (Verified 10/24/19 07:23) gastric bipass not supposed to take tramadol Adverse Reaction (Verified 10/24/19 07:23) Upset Stomach Medications to take at Discharge Amitriptyline HCl [Elavil] 50 mg PO QHS PRN 04/30/17 Ergocalciferol [Vitamin D] 50,000 unit PO TUTH 04/30/17 Etonogestrel [Nexplanon (Bkc)] 68 mg SQ UD 04/30/17 Tamsulosin HCl [Flomax] 0.4 mg PO DAILY PRN 04/30/17 Lisinopril [Zestril] 40 mg PO BID 05/30/17 Cyanocobalamin [Vitamin B12] 1,000 mcg IM Q30D 07/06/17 Ondansetron [Zofran Odt] 4 mg PO 4X/DAY PRN PRN #30 tab 03/16/19 Hydrocodone/Acetaminophen [Calvin 5-325 Tablet] 1 ea PO 4X/DAY PRN PRN 08/03/19 Clindamycin [Cleocin] 450 mg PO TID #54 cap 10/27/19 Lactobacillus Acidophilus [Acidophilus] 1 tab PO BID #12 tab 10/27/19 Oxycodone [Oxyir] 5 mg PO Q8H PRN PRN 3 Days #10 tablet 10/27/19 The following prescriptions were given: Lactobacillus Acidophilus [Acidophilus] 1 tab PO BID #12 tab Transmission Status: Pending to [address] Clindamycin [Cleocin] 450 mg PO TID #54 cap Transmission Status: Pending to [address] Oxycodone [Oxyir] 5 mg PO Q8H PRN PRN 3 Days #10 tablet PRN Reason: Pain Score 6-10/10 Transmission Status: Received by [address] Primary Care Physician: Bethel Jauregui III, MD [Primary Care Provider] - Please follow up with your Primary Care Physician in: 2-3 weeks. Test Results: Test results from this visit will be discussed in further detail at your follow- up appointment, if applicable. Please Follow Up With: Gigi Mendieta MD When: 1 week.
[2019-10-27 09:43] VITALS: BP 154/94; PULSE 92; RESP 18; TEMP 36.7; O2SAT 99
[2019-10-27] MEDS: Acetaminophen 325 MG Tablet 650 MG PO (10:13)
[2019-10-27] MEDS: Lisinopril 40 MG Tablet PO (10:13)
--- NOTE | 2019-10-27 11:00 | DS.PCM_ITS ---
Discharge Date and Diagnosis - Problem List Patient Problems: Active and Suspected Problems (Last Reviewed 10/25/19 @ 11:[address] Lissette Nolasco MD) Cellulitis of abdominal wall (Acute) Date of Admission: 10/24/19 Date of Discharge: 10/27/19 - Primary Discharge Diagnosis Acute Problems: Active Problems (Last Reviewed 10/25/19 @ 11:[address] Lissette Nolasco MD) #1 MSSA/Corynebacterium stratum acute lower abdominal wound cellulitis/infected midline lower abdominal wall ulcer with extension down to the labia majora. #2 sepsis. #3 chronic anemia. - Secondary Discharge Diagnosis Chronic Problems: Chronic Problems (Last Reviewed 10/25/19 @ 11:[address] 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 Tissue defect in the anterior lower left abdominal wall described with edematous changes which progress E into the mons pubis worse on the left side. Bilateral ovarian cysts. Electronically Signed: Demetrius Brandon, at 9:49 EDT , Service support , Consultations 10/24/19 11:56 Consult: Onc/Wound/plate cleaner Routine Comment: Dr. nayak, plastic surgery. Operations: None, - - 03/28/19 - Surgical preparation lower anterior abdominal wall with incision and drainage and excisional debridement skin, subcutaneous tissue, and fascia necrotizing soft tissue infection abscess (660 cm2). Procedures: None Summary of Care Provided: Patient seen and examined on the day of discharge and appeared to be stable to be discharged home. Lower abdominal pain and discomfort has been improving. Local erythema and swelling of the lower abdomen also improving. Patient has been afebrile for more than 48 hours. Other vital signs are stable. The patient is a 34 year old F presented to the emergency room because of lower abdominal pain, swelling, redness and fever and she was found to have sepsis secondary to acute cellulitis of the lower abdominal wall with newly opened infected ulcer with surrounding cellulitis which was extending down to the labia majora. 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 In the past, she had multiple wound cultures that revealed pseudomonas aeruginosa, MSSA, Staphylococcus hemolyticus, Staphylococcus hominis and corynebacterium. On admission, patient did have sepsis. She was tachycardic, febrile, leukocytosis with evidence of infection. She was treated with IV Zosyn and clindamycin. Dr. Ambrose consulted and recommended medical treatment with IV antibiotics for now. There was no indication for surgical intervention. Wound culture revealed MSSA and corynebacterium stratum. Blood culture showed no growth in 48 hours. Because of the significant swelling and erythema of both labia majora, [employer] consulted and stated that there is no evidence of localized abscesses down in the labia majora or ligament and this swelling is likely due to extension of the lower abdominal wall cellulitis. With above-mentioned treatment, patient symptoms improved, WBC went back to normal and patient remained afebrile for more than 48 hours. Local erythema and swelling of the lower abdomen improved. Patient discharged home in a stable medical condition, discharged on clindamycin 450 mg p.o. 3 times daily for more 6 days of treatment to complete total of 10 days of treatment, discharged on OxyIR PRN for pain, plan to follow-up with the wound care center in 1 week, recommended follow-up with Dr. henderson in 1 week as well, follow-up with PCP in 2 to 3 weeks. Patient Problems: Active and Suspected Problems (Last Reviewed 10/25/19 @ 11:[address] Lissette Nolasco MD) Cellulitis of abdominal wall (Acute) - Physical Exam Vitals/I&O's: Vital Signs Temp Pulse Resp BP Pulse Ox 98.1 F 92 18 154/94 H 99 10/27/19 09:43 10/27/19 09:43 10/27/19 09:43 10/27/19 09:43 10/27/19 09:43 Oxygen Delivery Method Room Air Weight: 219 lb 5.759 oz Body Mass Index (BMI) 35.4 Intake and Output for Last 24 Hours 10/25/19 10/26/19 10/27/19 23:59 23:59 23:59 Intake Total 2708 / 2708 1177.75 / 1177.75 207.25 / 207.25 Output Total 100 / 100 Balance 2708 / 2708 1077.75 / 1077.75 207.25 / 207.25 General: Alert, Oriented x3, Cooperative, No apparent distress HEENT: Atraumatic, PERRLA, EOMI, Normocephalic Oral: Moist Mucosa, No Gingival or Mucosal Lesions/ Ulcerations Neck: Supple, No JVD, Negative Carotid Bruits, Trachea Midline, Thyroid Normal Size and Texture Lungs: Clear to auscultation, Normal air movement, No rhonchi, No wheeze, No rales Cardiovascular: Regular rate, Regular Rhythm, Normal S1, Normal S2, PMI Normal Abdomen: Bowel Sounds Present, Soft, Non Tender, Non-Distended, No Hepato- splenomegaly, Obese Extremities: No clubbing, No cyanosis, No edema Skin: No rashes, Ulcer/ Wound - Lower abdomen: Also measuring about 4 x 4 cm, superficial ulcer, dry, no pus or drainage, surrounded by mild erythema. Swelling and erythema of the lower abdomen significantly improved, still having swelling of both labia majora but improved. Lymphatic: No Cervical, Supraclavicular, or Inguinal Adenopathy Neurological: Cranial nerves II-XII grossly intact, Neuro grossly intact Psych/Mental Status: Normal Affect, Appropriate Microbiology Past 72 Hours 10/24/19 12:30 Wound - Abdominal Gram Stain - Final 10/24/19 12:30 Wound - Abdominal Wound Culture - Final Staphylococcus aureus Corynebacterium striatum 10/24/19 12:30 Wound - Abdominal Anaerobic Culture - Preliminary Checking for anaerobes, further studies to follow. 10/24/19 07:22 Blood Culture (Wb) - Left Hand Blood Culture - Preliminary No growth in 48 hours. 10/24/19 07:06 Blood Culture (Wb) - Right Forearm Blood Culture - Preliminary No growth in 48 hours. 10/24/19 09:50 Urine, Clean Catch Urine Culture - Final Mixed Gram Pos & Gram Neg Org Laboratory Results 10/27/19 05:40: WBC 8.2, RBC 3.37 L, Hgb 7.5 L, Hct 24.9 L, MCV 73.9 L, MCH 22.3 L, MCHC 30.1 L, RDW Std Deviation 44.3 H, RDW Coeff of Andrez 16.9 H, Plt Count 466 H, MPV 11.3, Immature Gran % (Auto) 2.000 H, Neut % (Auto) 70.2 H, Lymph % (Auto) 14.3 L, [place] % (Auto) 6.7, Eos % (Auto) 5.9 H, Baso % (Auto) 0.9, Absolute Neuts (auto) 5.8, Absolute Lymphs (auto) 1.17, Nucleated RBC % 0 10/27/19 05:40: Sodium 137, Potassium 3.3 L, Chloride 107, Carbon Dioxide 23.0, Anion Gap 7, BUN 7, Creatinine 0.55, Estim Creat Clear Calc 136.20, Est GFR (MDRD) Af Amer 162, Est GFR (MDRD) Non-Af 134, BUN/Creatinine Ratio 12.7, Glucose 83, Calcium 8.3 L Current Medications Acetaminophen (Tylenol) 650 mg PO Q6H PRN PRN PRN Reason: Pain Score 1-10/Temp > 100.7 F Last Admin: 10/27/19 10:13 Dose: 650 mg Documented by: Amitriptyline HCl (Elavil) 50 mg PO QHS PRN PRN Reason: SLEEP Last Admin: 10/26/19 22:29 Dose: 50 mg Documented by: Hydromorphone HCl (Dilaudid Tablet) 2 - 4 mg PO Q4H PRN PRN PRN Reason: Pain Score 6-10/10 Last Admin: 10/26/19 18:15 Dose: 4 mg Documented by: Piperacillin Sod/Tazobactam (Sod 3.375 gm/ Sodium Chloride) 50 mls @ 12.5 mls/hr IV Q8 [facility] Last Admin: 10/27/19 06:38 Dose: 12.5 mls/hr Documented by: Clindamycin Phosphate 900 mg/ (Dextrose) 106 mls @ 150 mls/hr IV Q8 [facility] Last Infusion: 10/27/19 05:49 Dose: Infused Documented by: Sodium Chloride () 250 mls @ 15 mls/hr IV .[id number] PRN PRN Reason: Saline Flush Last Infusion: 10/27/19 06:38 Dose: 0 mls/hr Documented by: Sodium Chloride () 250 mls @ 15 mls/hr IV .[id number] PRN PRN Reason: Additional IVPB Infusion Lactobacillus Acidophilus (Acidophilus) 1 tablet PO TID [facility] Last Admin: 10/27/19 05:08 Dose: 1 tablet Documented by: Lisinopril (Zestril) 40 mg PO BID [facility] Last Admin: 10/27/19 10:13 Dose: 40 mg Documented by: Ondansetron HCl (Zofran) 4 mg IV Q8H PRN PRN PRN Reason: NAUSEA/VOMITING Oxycodone HCl (Oxyir) 5 mg PO Q4H PRN PRN PRN Reason: Pain Score 6-10/10 Last Admin: 10/27/19 10:13 Dose: 5 mg Documented by: Senna/Docusate Sodium (Senokot-S, [place]-Colace) 2 tablet PO BID PRN PRN PRN Reason: Constipation Sodium Chloride () 10 - 40 ml IV UD PRN PRN Reason: SALINE FLUSH Last Admin: 10/26/19 21:29 Dose: 10 ml Documented by: Tamsulosin HCl (Flomax) 0.4 mg PO DAILY PRN PRN Reason: kidney stones Discharge Activity: Return to Normal Activity Return to work on:: 10/30/19 Weight Bearing Status: Weight bearing as tolerated Call your doctor if your incision/area has: Continuous Slow Oozing, Increased Pain/ Swelling, Increased Redness, Foul Smelling Discharge, Swelling at the incision site Call your doctor if you observe: Fever of 101 or Higher, Shortness of breath, Dizziness, Fainting spells, Chest pain, Increased palpitations (irregular heartbeat), Uncontrolled pain Home Medications: Medications to take at Discharge Amitriptyline HCl [Elavil] 50 mg PO QHS PRN 04/30/17 Ergocalciferol [Vitamin D] 50,000 unit PO TUTH 04/30/17 Etonogestrel [Nexplanon (Bkc)] 68 mg SQ UD 04/30/17 Tamsulosin HCl [Flomax] 0.4 mg PO DAILY PRN 04/30/17 Lisinopril [Zestril] 40 mg PO BID 05/30/17 Cyanocobalamin [Vitamin B12] 1,000 mcg IM Q30D 07/06/17 Ondansetron [Zofran Odt] 4 mg PO 4X/DAY PRN PRN #30 tab 03/16/19 Hydrocodone/Acetaminophen [[place] 5-325 Tablet] 1 ea PO 4X/DAY PRN PRN 08/03/19 Clindamycin [Cleocin] 450 mg PO TID #54 cap 10/27/19 Lactobacillus Acidophilus [Acidophilus] 1 tab PO BID #12 tab 10/27/19 Oxycodone [Oxyir] 5 mg PO Q8H PRN PRN 3 Days #10 tab 10/27/19 Following Prescriptions Were Given to Patient: Lactobacillus Acidophilus [Acidophilus] 1 tab PO BID #12 tab Transmission Status: Received by [address] Clindamycin [Cleocin] 450 mg PO TID #54 cap Transmission Status: Received by [address] Oxycodone [Oxyir] 5 mg PO Q8H PRN PRN 3 Days #10 tab PRN Reason: Pain Score 6-10/10 Transmission Status: Received by [address] Primary Care Physician: Bethel Jauregui III, MD [Primary Care Provider] - Please follow up with your Primary Care Physician in: 2-3 weeks. Please Follow Up With: Gigi Mendieta MD When: 1 week. Please Follow Up With: Bethel Jauregui III, MD Disposition: Home Minutes spent on discharge:: 33 Patient Condition:: Stable Medical Necessity - Tobacco Use Smoking Status: Never smoker Meaningful Use Info Meaningful Use Diagnoses (Choose all that apply): None applicable Inpatient E&M: [id number] [facility]
--- NOTE | 2019-10-31 13:37 | CASEMGMT ---
RICARDO BECKFORD DC PHONE CALL DC DATE: 10/27/2019 DC DISPOSITION: Home DC DIAGNOSIS: cellulitis of abdominal wall LACE/STRATA: 01/22 F/U APPTS MADE PRIOR TO DC: yes PRESCRIPTIONS ACQUIRED BY PT: yes Intro role of CM to patient via phone. Patient states she is doing well and is back to work. She has no questions re: f/u or prescriptions. She states she is still sore with activiry, but no concerns or questions at this time. Aye CANASN RN ACM
== END 2019-10-27 11:02 | disposition home or self-care (01) | DRG 383 ==
LOC: ED 08:03 → MS3 11:48
PROVIDERS: Surgery; Admitting Provider Hospitalist; Emergency Provider Emergency Medicine; PCP Family Medicine; Visit Provider Hospitalist
DX: L03.311 Cellulitis of abdominal wall (principal); N83.202 Unspecified ovarian cyst, left side; N83.201 Unspecified ovarian cyst, right side; I10 Essential (primary) hypertension; D64.9 Anemia, unspecified; A49.01 Methicillin susceptible Staphylococcus aureus infection, unspecified site; I89.0 Lymphedema, not elsewhere classified; Z87.11 Personal history of peptic ulcer disease; Z90.49 Acquired absence of other specified parts of digestive tract; Z87.442 Personal history of urinary calculi; Z98.84 Bariatric surgery status; L98.492 Non-pressure chronic ulcer of skin of other sites with fat layer exposed; L29.9 Pruritus, unspecified
CPT/HCPCS: 36415; 74177; 80048; 80053; 81001; 83605; 84134; 84484; 84703; 85025; 85610; 85730; 87040; 87070; 87075; 87077; 87086; 87088; 87186; 87205; 87635; 87640; 93005; 94799; 97802; 99251; 99285; J7030; J7040; J7050; Q9967; A4216; G0463; J2405; U0003

== ENCOUNTER 2019-11-13 10:15 | Outpatient (RCR) | payer MEDICAID, SELFPAY ==
[2019-10-21 00:25] VITALS: BP 192/96; PULSE 93; RESP 16; TEMP 36.5
[2019-10-24 11:57] VITALS: BMI 35.4
[2019-11-06 09:59] VITALS: BP 162/95; PULSE 85; RESP 16; TEMP 36.1; BMI 35.4
--- NOTE | 2019-11-06 16:43 | PCM.WC.PN ---
Type of Wound Date of Service: 11/06/19 Chief Complaint: Nonhealing ulcer anterior abdominal wall and vulva. History of Wound: The patient is a 34 year old F was recently admitted on 10/24/19 for sepsis and cellulitis involving a nonhealing ulcer abdominal wall and vulva involving the mons pubis. She was placed on Zosyn and Clindamycin. Wound culture showed Staphylococcus aureus and Corynebacterium striatum. Wound care - Silver. The cellulitis improved and she was discharged home on 10/27/19 on Clindamycin and has finished them. Prealbumin from 10/26/19 was 6.3. Encourage nutritional supplementation with protein to help the healing process. CT scan abdomen and pelvis from 10/24/19 showed tissue defect in the anterior lower abdominal wall with edematous changes extending down to the mons pubis more on the left side. No evidence of intra-abdominal abscesses.. Today she denies fever. Her appetite is good. Progress of Wound: Improved. - Physical Exam Vital Signs Temp Pulse Resp BP 97 F L 85 16 162/95 H 11/06/19 09:59 11/06/19 09:59 11/06/19 09:59 11/06/19 09:59 General: Alert, Oriented x3 HEENT: PERRLA, EOMI Oral: Moist Mucosa Neck: Supple Lungs: Clear to auscultation Cardiovascular: Regular rate, Regular Rhythm Abdomen: Soft, Non-Distended Skin: Ulcer/ Wound - nonhealing ulcer anterior abdominal wall and vulva - Some granulation tissue and exudate present. She doesn't want debridement today because she is going back to work and she doesn't want to bleed. Measures 4 x 6 cm. Wound Measurements and Assessment WC - Nurse 1 - General Ulcer Measurement Start: 11/06/19 09:58 Freq: Status: Active Protocol: Activity Type Activity Date Activity User E-Sign Co-Sign Detail Recorded Client Recorded Date Recorded By Document 11/06/19 09:59 [facility] [id number] 11/06/19 10:08 [facility] 11/06/19 09:59 Wound Center Nurse 1 [Ulcer Assessment] #3- LOWER MID ABDOMEN -Combined with other wound No -Current Size (cm) - Length 3.9 -Current Size (cm) - Width 5.8 -Current Size (cm) - Depth 0.2 -Total Square Cm 22.62 -Date of Last Picture (Recall this 11/06/19 field) -Photo Taken Yes -Epithelialization None Present -Tunneling No -Undermining/Tunneling No -Circular Undermining No -Exudate Amt None Present -Wound Margin Flat & Intact -Granulation Amt Medium (34-66%) -Granulation Quality [place] -Slough/Fibrin Yes -Necrosis Amt Medium (34-66%) -Necrotic Tissue Type Adherent Slough -Texture ([place]-wound Skin Appearance) Assessed, Scarring -Moisture ([place]-wound Skin Appearance Assessed,Dry/ ) Scaly -Color ([place]-wound Skin Appearance) Assessed -Temperature ([place]-wound Skin No Abnormality Appearance) (Pt Warm) -Tenderness on Palpation ([place]-wound No Skin Appearance) -Ulcer Cleansing Rinsed/ Irrigated with Saline -Foul Odor after Cleansing No WC - Nurse 2 - General Ulcer CM Notes Start: 11/06/19 09:58 Freq: Status: Active Protocol: Activity Type Activity Date Activity User E-Sign Co-Sign Detail Recorded Client Recorded Date Recorded By Document 11/06/19 10:38 KULDEEP [id number] 11/06/19 10:40 KULDEEP 11/06/19 10:38 Wound Center Nurse 2 [Procedure/Treatment] -Correct Patient No -Correct Side, Site, Position No -Correct Procedure No -Procedure Performed No -Tunneling No -Undermining/Tunneling No -Circular Undermining No -Wound/Ulcer Outcome Not Healed -Ulcer Cleansing Rinsed/ Irrigated with Saline -Foul Odor after Cleansing No -Bioengineered Tissue No -Bleeding Controlled with Pressure -Offloading No -Debridement - Open, 1st 20sq cm No -Debridement - Subq, 1st 20sq cm No -Debridement - Muscle / Fascia, 1st No 20sq cm -Debridement - Bone, 1st 20sq cm No [See Physician Procedure note for Specifics] Pain Scale: 0-10 Numeric [Pain] -Is Patient Pain Free? Yes Neurological: Cranial nerves II-XII grossly intact Psych/Mental Status: Normal Affect, Appropriate Debridement Note Post-Debridement Measurements/Treatment WC - Nurse 2 - General Ulcer CM Notes Start: 11/06/19 09:58 Freq: Status: Active Protocol: Activity Type Activity Date Activity User E-Sign Co-Sign Detail Recorded Client Recorded Date Recorded By Document 11/06/19 10:38 KULDEEP [id number] 11/06/19 10:40 JF 11/06/19 10:38 Wound Center Nurse 2 #3- LOWER MID ABDOMEN -Correct Patient No -Correct Side, Site, Position No -Correct Procedure No -Procedure Performed No -Tunneling No -Undermining/Tunneling No -Circular Undermining No -Wound/Ulcer Outcome Not Healed -Ulcer Cleansing Rinsed/ Irrigated with Saline -Foul Odor after Cleansing No -Bioengineered Tissue No -Bleeding Controlled with Pressure -Offloading No -Debridement - Open, 1st 20sq cm No -Debridement - Subq, 1st 20sq cm No -Debridement - Muscle / Fascia, 1st No 20sq cm -Debridement - Bone, 1st 20sq cm No Pain Scale: 0-10 Numeric Is Patient Pain Free? Yes Wound debrided: #3 Anterior abdominal wall and vulva. Laterality: Not Applicable Wound Grade/Stage: 2. - - no debridement was done today because she is going back to work and doesn't want to ulcer to bleed. Assessment/Plan Assessment: 1. Nonhealing ulcer anterior abdominal wall and vulva. 2. 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 3. 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 Plan: Continue Silver dressing changes daily. She has exudate that needs debridement. She refused debridement today because she is going back to work and doesn't want to ulcer to bleed. On a day she doesn't have to work, she will allow debridement. She has finished the Clindamycin for the Staphylococcus aureus and Corynebacterium striatum from her recent hospitalization on 10/24/19. Prealbumin from 10/26/19 was 6.3. Encourage nutritional supplementation with protein to help the healing process. At work she has trouble with heavy lifting since it causes pain and sometimes increased drainage in the ulcer. Wrote a letter restricting her to 10 lb lifting until 01/21/20 (tentative). Followup 2 weeks. Office Visits / Consults: 19392 OV L3 Est - ICD-10 - L98.492, N76.6, R63.4, I89.0
[2019-11-13 10:01] VITALS: BP 142/78; PULSE 115; RESP 16; TEMP 37.5; BMI 35.4
--- NOTE | 2019-11-13 11:12 | PN.PCM_ITS ---
(1) Fever Status: Acute Current Visit: Yes Code(s): R50.9 - Fever, unspecified (2) Obesity (BMI 30.0-34.9) Status: Chronic Current Visit: Yes Code(s): E66.9 - Obesity, unspecified (3) Cellulitis of labia majora Status: Acute Current Visit: Yes Code(s): N76.2 - Acute vulvitis (4) Cellulitis of abdominal wall Status: Acute Current Visit: Yes Code(s): L03.311 - Cellulitis of abdominal wall (5) Skin ulcer of abdominal wall with fat layer exposed Status: Chronic Current Visit: Yes Code(s): L98.492 - Non-pressure chronic ulcer of skin of other sites with fat layer exposed (6) Lymphedema of genitalia Status: Chronic Current Visit: Yes Code(s): I89.0 - Lymphedema, not elsewhere classified Type of Wound Date of Service: 11/13/19 Chief Complaint: Nonhealing ulcer anterior abdominal wall and vulva. History of Wound: The patient is a 34 year old F was recently admitted on 10/24/19 for sepsis and cellulitis involving a nonhealing ulcer abdominal wall and vulva involving the mons pubis. She was placed on Zosyn and Clindamycin. Wound culture showed Staphylococcus aureus and Corynebacterium striatum. Wound care - Silver. The cellulitis improved and she was discharged home on 10/27/19 on Clindamycin and has finished them. Prealbumin from 10/26/19 was 6.3. Encourage nutritional supplementation with protein to help the healing process. CT scan abdomen and pelvis from 10/24/19 showed tissue defect in the anterior lower abdominal wall with edematous changes extending down to the mons pubis more on the left side. No evidence of intra-abdominal abscesses.. Today she complains of fever and increased pain and redness of her lower abdomen and labia area. Her appetite is good. Progress of Wound: Redness of pannus and labia has increased swelling, firmness and redness. She has has been running fevers on and off since last . - Physical Exam Vital Signs Temp Pulse Resp BP 99.5 F H 115 H 16 142/78 H 11/13/19 10:11/13/19 10:01 11/13/19 10:11/13/19 10:01 General: Alert, Oriented x3, Cooperative HEENT: Atraumatic Oral: Moist Mucosa Lungs: Normal air movement Cardiovascular: Regular rate Abdomen: Soft, Obese, Tender Extremities: Capillary Refill Less than 3 Seconds Skin: Ulcer/ Wound - Lower abdomen/pubic area ulcer that has increased biofilm. There are new opened areas in the skin fold of her pannus. Her pannus is errythematous and her labia is more swollen than normal and is now red and firm to palpation. Wound Measurements and Assessment - Nurse 1 - General Ulcer Measurement Start: 11/06/19 09:58 Freq: Status: Active Protocol: Activity Type Activity Date Activity User E-Sign Co-Sign Detail Recorded Client Recorded Date Recorded By Document 11/13/19 10:01 [facility] [id number] 11/13/19 10:07 [facility] 11/13/19 10:01 Wound Center Nurse 1 [Ulcer Assessment] #3- LOWER MID ABDOMEN -Combined with other wound No -Current Size (cm) - Length 4.1 -Current Size (cm) - Width 13.2 -Current Size (cm) - Depth 0.1 -Total Square Cm 54.12 -Photo Taken No -Epithelialization None Present -Tunneling No -Undermining/Tunneling No -Circular Undermining No -Wound Margin Distinct, Outline Attached -Granulation Amt Medium (34-66%) -Granulation Quality Red -Slough/Fibrin Yes -Necrosis Amt Medium (34-66%) -Necrotic Tissue Type Adherent Slough -Texture (Catrachita-wound Skin Appearance) Assessed, Scarring -Moisture ([place]rachita-wound Skin Appearance Assessed ) -Color ([place]ita-wound Skin Appearance) Assessed, Erythema -Temperature ([place]ita-wound Skin No Abnormality Appearance) (Pt Warm) -Tenderness on Palpation ([place]ita-wound Yes Skin Appearance) -Ulcer Cleansing Rinsed/ Irrigated with Saline -Foul Odor after Cleansing No -Anesthetic Used 4% Lidocaine Solution - Nurse 2 - General Ulcer CM Notes Start: 11/06/19 09:58 Freq: Status: Active Protocol: Activity Type Activity Date Activity User E-Sign Co-Sign Detail Recorded Client Recorded Date Recorded By Document 11/13/19 11:05 [id number] 11/13/19 11:06 11/13/19 11:05 Wound Center Nurse 2 [Procedure/Treatment] -Correct Patient No -Correct Side, Site, Position No -Correct Procedure No -Procedure Performed No -Ulcer Cleansing Rinsed/ Irrigated with Saline -Foul Odor after Cleansing No [See Physician Procedure note for Specifics] Pain Scale: 0-10 Numeric [Pain] -Is Patient Pain Free? Yes - Nurse 3 - General Ulcer D/C NN Start: 11/06/19 23:16 Freq: Status: Active Protocol: Activity Type Activity Date Activity User E-Sign Co-Sign Detail Recorded Client Recorded Date Recorded By Document 11/13/19 11:10 [id number] 11/13/19 11:11 11/13/19 11:10 Wound Care Nurse 3 [Wound Dressing] #3- LOWER MID ABDOMEN -Ulcer Cleansing Rinsed/ Irrigated with Saline -Foul Odor after Cleansing No -Primary Dressing Covered/Secured Dry Gauze, with Secured with Tape Pain Scale: 0-10 Numeric [Pain] -Is Patient Pain Free? Yes - Visit Discharge [Visit Discharge Information] -Discharge Condition Stable -Ambulatory Status Ambulatory -Transportation Private Auto -Medication Reconcilliation completed Yes & provided to patient/care provider -Clinical Summary of Care Provided Yes Musculoskeletal: No Tenderness to Palpation of Joints or Extremities Neurological: Cranial nerves II-XII grossly intact Psych/Mental Status: Normal Affect, Appropriate Debridement Note Post-Debridement Measurements/Treatment - Nurse 2 - General Ulcer CM Notes Start: 11/06/19 09:58 Freq: Status: Active Protocol: Activity Type Activity Date Activity User E-Sign Co-Sign Detail Recorded Client Recorded Date Recorded By Document 11/06/19 10:38 [id number] 11/06/19 10:40 Document 11/13/19 11:05 [id number] 11/13/19 11:06 11/06/19 11/13/19 10:38 11:05 Wound Center Nurse 2 #3- LOWER MID ABDOMEN -Correct Patient No No -Correct Side, Site, Position No No -Correct Procedure No No -Procedure Performed No No -Tunneling No -Undermining/Tunneling No -Circular Undermining No -Wound/Ulcer Outcome Not Healed -Ulcer Cleansing Rinsed/ Rinsed/ Irrigated with Irrigated with Saline Saline -Foul Odor after Cleansing No No -Bioengineered Tissue No -Bleeding Controlled with Pressure -Offloading No -Debridement - Open, 1st 20sq cm No -Debridement - Subq, 1st 20sq cm No -Debridement - Muscle / Fascia, 1st No 20sq cm -Debridement - Bone, 1st 20sq cm No Pain Scale: 0-10 Numeric Is Patient Pain Free? Yes Yes - Nurse 3 - General Ulcer D/C NN Start: 11/06/19 23:16 Freq: Status: Active Protocol: Activity Type Activity Date Activity User E-Sign Co-Sign Detail Recorded Client Recorded Date Recorded By Document 11/13/19 11:10 [email or web address] [id number] 11/13/19 11:11 [email or web address] 11/13/19 11:10 Wound Care Nurse 3 #3- LOWER MID ABDOMEN -Ulcer Cleansing Rinsed/ Irrigated with Saline -Foul Odor after Cleansing No -Primary Dressing Covered/Secured with Dry Gauze, Secured with Tape Pain Scale: 0-10 Numeric Is Patient Pain Free? Yes WC - Visit Discharge Discharge Condition Stable Ambulatory Status Ambulatory Transportation Private Auto Medication Reconcilliation completed & Yes provided to patient/care provider Clinical Summary of Care Provided Yes No debridement was completed today Assessment/Plan Active Problems (Last Reviewed 10/25/19 @ 11:[address] Lissette Nolasco MD) Sepsis (Acute) Anemia (Chronic) Obesity (BMI 30.0-34.9) (Chronic) GERD (gastroesophageal reflux disease) (Chronic) History of gastric ulcer (Chronic) HLD (hyperlipidemia) (Chronic) Cellulitis of labia majora (Acute) Fever (Acute) Cellulitis of abdominal wall (Acute) Skin ulcer of abdominal wall with fat layer exposed (Chronic) Lymphedema of genitalia (Chronic) Assessment: 1. Nonhealing ulcer anterior abdominal wall and vulva. 2. 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 3. 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 Plan: Continue Silver dressing changes daily. She has exudate that needs debridement. She refused debridement today. Today she is complaining of fevers as high as 101.9 since last . She also has redness of her lower abdomen/pannus area extending down to her labia which is also swollen and firm to palpation. Recommend that she go to the ED for further evaluation because she may need IV antibiotics. She does not want to go to the hospital to get admitted because she has started a new job recently. Discussed with the patient the importance of getting this looked at so she doesn't become more compromised. She agreed to go to ED. Phoned the ED to let them know that she was coming over and updated them on her condition. She has finished the Clindamycin for the Staphylococcus aureus and Corynebacterium striatum from her recent hospitalization on 10/24/19. Prealbumin from 10/26/19 was 6.3. Encourage nutritional supplementation with protein to help the healing process. At work she has trouble with heavy lifting since it causes pain and sometimes increased drainage in the ulcer. Wrote a letter restricting her to 10 lb lifting until 01/21/20 (tentative). Office Visits / Consults: [id number] OV L3 Est
== END 2019-11-20 23:59 ==
LOC: WC 10:15
PROVIDERS: Family Provider Family Medicine; PCP Family Medicine; Visit Provider Nurse Practitioner Family
DX: L98.492 Non-pressure chronic ulcer of skin of other sites with fat layer exposed (principal); I89.0 Lymphedema, not elsewhere classified; L03.311 Cellulitis of abdominal wall; Z98.84 Bariatric surgery status; E66.9 Obesity, unspecified; Z68.34 Body mass index [BMI] 34.0-34.9, adult; R63.4 Abnormal weight loss; E78.5 Hyperlipidemia, unspecified; K21.9 Gastro-esophageal reflux disease without esophagitis; D64.9 Anemia, unspecified; Z87.11 Personal history of peptic ulcer disease
CPT/HCPCS: 99213; 99214; G0463

== ENCOUNTER 2019-11-13 11:22 | Inpatient (IN) | payer MEDICAID, SELFPAY ==
[2019-11-13 10:01] VITALS: BMI 35.4
[2019-11-13 11:23] VITALS: BP 150/79; PULSE 108; RESP 18; TEMP 36.1; O2SAT 100; BMI 33.9
[2019-11-13 11:34] VITALS: RESP 18
--- NOTE | 2019-11-13 11:52 | CT_ITS ---
STUDY: CT ABDOMEN AND PELVIS WITHOUT CONTRAST REASON FOR EXAM: Female, 34 years old. LABIAL ABSCESS RADIATION DOSAGE (If Supplied By Facility): CTDIvol = ( 17.54 ) mGy, DLP = ( 1342.43 ) mGycm TECHNIQUE: Transaxial images were obtained from the dome of the diaphragm to the symphysis pubis without oral contrast, and without intravenous contrast. Sagittal and coronal images were reconstructed. Individualized dose optimization techniques were used for this CT. COMPARISON: Comparison is made with prior study dated 10/24/2019. FINDINGS: The visualized lung bases are unremarkable. The visualized portions of the heart are within normal limits. There is decreased attenuation of the liver consistent with steatosis. There are surgical clips in the gallbladder fossa consistent with a prior cholecystectomy. Normal spleen. Normal pancreas. Normal bilateral adrenal glands. Normal right kidney. 2 mm nonobstructive calculus in the upper pole calyx of the left kidney. This is unchanged. Status post subtotal gastrectomy for bariatric surgery. Normal small intestine. Normal colon. The appendix is visualized and appears normal. Normal abdominal aorta. Normal inferior vena cava. Normal retroperitoneum. Normal urinary bladder. There is evidence of the subcutaneous soft tissue prominence in the anterior abdominal wall more prominent on the left side with a tissue defect measuring 9.3 cm. This is unchanged. The soft tissue changes extend into the mons pubis with thickening of both labia majora more prominent on the left side. There is evidence of small bilateral ovarian cysts. Normal osseous structures. CT/Abdomen/Pelvis W IV Cont ONLY IMPRESSION: Stable examination. Electronically Signed: Demetrius Brandon, at 13:20 EDT , Service support ,
--- NOTE | 2019-11-13 11:55 | ED.DCSUM_ITS ---
- ER Visit Summary Date of Service: 11/13/19 Chief Complaint: Labial swelling History of Present Illness: The patient is a [address] Bethel Jauregui and Dr. Mendieta. She has a history of a gastric bypass and had a penectomy last winter. She is had problems with recurrent infection since that time. She states that she was admitted October 23 October 26 and was discharged on a week's worth of clindamycin. Patient reports she had a fever to 103 degrees for the past 2 days. She has right labial inflammation and swelling that began overnight. She complains of a dull constant pain and stated 10 and sharp with sitting up. Is 6 out of 10 when she is laying down. Patient ports she had one episode of diarrhea yesterday. No blood in her stools or black tarry stools. She denies any other complaints. Physical Examination: Vitals: Stable. Afebrile. General: Well-nourished and well-developed. Head: Normocephalic atraumatic. Neck: Supple, no lymphadenopathy. No JVD. Nontender. Cardiovascular: Regular rate and rhythm. No murmurs. Respiratory: No respiratory distress. Clear to auscultation bilaterally. Abdominal: Soft, mild tenderness palpation over her lower abdomen, nondistended, normal bowel sounds. No guarding, rebound, or peritoneal signs. Chronic wound to her lower abdomen. There is a 2 x 3 cm ulcer in the suprapubic area. There is surrounding erythema. There is no induration. However, this is difficult to tell as there is significant amount of scar tissue. : Severely swollen labia majora bilaterally. They are erythematous. The left one is indurated. Back: Nontender. Extremities: Nontender, no edema. Skin: Normal color, no rash. Neurologic: Alert and oriented ?3. Cranial nerves II through XII are intact. Normal strength and sensation. Psych: Normal affect. Test Results: CBC shows a white count of 14.0 with 917 neutrophils and 3 lymphocytes. H&H is 9.3 and 29.7. Chem-7 is normal. LFTs show an albumin of 2.8, alk phos of 271, ALT of 135. INR is 1.2. PTT is 32.9. Lactic acid is normal. Clinical Impression(s) from Imaging Studies Abdomen/Pelvis CT 11/13/19 11:52 IMPRESSION: Stable examination. Electronically Signed: Demetrius Brandon, at 13:20 EDT , Service support , Emergency Department Course and Treatment: Patient had an IV placed. She was gi caprice liter normal saline. She was given morphine for pain. She was given Zosyn IV after reviewing her prior cultures. She is resting more comfortably. Treatment Plan: The patient was discussed with Dr. Mendieta. He has that she be admitted for IV antibiotics. She was given a dose of vancomycin in the emergency department. She was discussed with Dr. Eli and will be admitted for further evaluation and treatment. Disposition: Admitted in improved condition. Impression: 1. Chronic abdominal wall ulcer. 2. Abdominal wall cellulitis. This note was generated with [employer] dictation software. It may contain incorrect words, spelling, and punctuation that were not noted in review of the chart prior to signing ED Disposition - Plan for ED Patient: Referrals: Bethel Jauregui III, MD [Primary Care Provider] -
[2019-11-13] MEDS: 0.9% Normal Saline 1,000 ML 999 ML IV (12:23)
[2019-11-13] MEDS: Morphine 4 MG/ML Syringe IV ×2 (12:25→14:10)
[2019-11-13 12:34] LABS: Absolute Lymphocyte Count 0.44 X10^3/uL (0.83-4.51); Absolute Neutrophil Count 12.7 X10^3/uL (2.0-7.7); Basophil# 0.05 X10^3/uL; Basophil% 0.4 % (0-1); Eosinophil# 0.08 X10^3/uL; Eosinophils% 0.6 % (0-5); Hematocrit 29.7 % (37-47); Hemoglobin 9.3 g/dL (12.0-15.0); Lymphocyte # 0.44 X10^3/ul (4.0); Lymphocyte % 3.1 % (19-41); Mean Corp Hgb Conc 31.3 g/dL (32-36); Mean Corpuscular Hgb 23.9 pg (27.0-32.0); Mean Corpuscular Volume 76.3 fL (81-99); Mean Platelet Vol. 10.7 fl (6.2-12.0); Monocyte# 0.66 X10^3/uL; Monocyte% 4.7 % (0-10); NRBC Flagged by Analyzer 0 % (0-5); Neutrophil # 12.71 X10^3/uL (2.7-7.7); Neutrophil % 90.7 % (47-70); POSITIVE DIFFERENTIAL YES; Platelet Count 440 K/mm3 (150-450); RBC Distribution Width CV 18.9 % (11.6-14.6); RBC Distribution Width SD 50.6 fl (35.1-43.9); Red Blood Count 3.89 M/mm3 (4.2-5.4)
[2019-11-13 12:35] VITALS: BP 125/68; PULSE 99; RESP 17; O2SAT 98
[2019-11-13 12:38] LABS: Differential Indicated SCAN CRITERIA MET; International Normalized Ratio 1.2; Prothrombin Time (Protime)PT. 14.5 SECONDS (11.7-14.9)
[2019-11-13 12:39] LABS: Partial Thromboplast Time 32.9 Seconds (24.1-36.2)
[2019-11-13 12:46] LABS: ALB/GLOB Ratio 0.7 RATIO (0.9-2.4); AST(SGOT) 27 U/L (15-37); Alanine Aminotransfer ALT/SGPT 135 U/L (13-56); Albumin, Serum 2.8 g/dL (3.2-5.0); Alkaline Phosphatase 271 U/L (45-117); Anion Gap 8 (5-15); BUN 12 mg/dL (7-18); Calcium,Total 8.9 mg/dL (8.5-10.1); Chloride 103 mmol/L (98-107); Creatinine, Serum 0.71 mg/dL (0.55-1.02); EST Glomerular Filtration Rate 101 mL/min (>60); Est Glom Filt Rate - Afr Amer 122 mL/min (>60); Globulin 4.2 g/dL (2.2-4.2); Glucose 95 mg/dL (74-106); Potassium 3.6 mmol/L (3.5-5.1); Sodium Level 136 mmol/L (136-145)
[2019-11-13 12:48] LABS: Lactic Acid 0.9 mmol/L (0.4-1.9)
--- NOTE | 2019-11-13 13:52 | PCM.HP.STD ---
Problem List (1) Cellulitis of labia majora Status: Acute (2) Cellulitis of abdominal wall Status: Acute (3) Sepsis Status: Acute Qualifiers: Sepsis type: sepsis due to unspecified organism Sepsis acute organ dysfunction status: unspecified Qualified Code(s): A41.9 - Sepsis, unspecified organism (4) Anemia Status: Chronic Qualifiers: Anemia type: unspecified type Qualified Code(s): D64.9 - Anemia, unspecified (5) Obesity (BMI 30.0-34.9) Status: Chronic (6) GERD (gastroesophageal reflux disease) Status: Chronic Qualifiers: Esophagitis presence: esophagitis presence not specified Qualified Code(s): K21.9 - Gastro-esophageal reflux disease without esophagitis (7) History of gastric ulcer Status: Chronic (8) Lymphedema of genitalia Status: Chronic (9) HTN (hypertension) Status: Chronic Qualifiers: Hypertension type: essential hypertension Qualified Code(s): I10 - Essential (primary) hypertension (10) HLD (hyperlipidemia) Status: Chronic Qualifiers: Hyperlipidemia type: unspecified Qualified Code(s): E78.5 - Hyperlipidemia, unspecified History of Present Illness Date of Admission: 11/13/19 Chief Complaint: Perisuprapubic wound erythema, acute on chronic labial edema, redness, fever, chills The patient is a 34 y/o F w/ PMHx: Chronic LFT elevations, Chronic anemia, Chronic pain syndrome with notable concerns for Opiate abuse, HTN, HLD, GERD with hx gastric ulcer, following w/ Dr. Mendieta with Panniculectomy 1 year prior with chronic suprapubic ulcer following with [facility], Chronic BL Labial swelling/lymphedema, Obesity recently discharged on 10/27/19 following treatment of sepsis and acute lower abdominal wall cellulitis and infected midline abdominal wall ulcer with extension to the labia majora treated with clindamycin 450 mg p.o. 3 times daily with close follow-up with Dr. Mendieta however patient now returns to the [facility] ED on 11/13/19, referred from the [facility] with 2 days of fever including up to 103 on day of presentation however administered Tylenol at the wound care center prior to transition to the ED, chills, worsening lower periwound erythema, tenderness to palpation, increased warmth as well as increased labial bilateral size above baseline and more firm than usual as well as more tender with pain described per patient is constant, sharp, 10 out of 10 in severity, worse with any movement attempts or palpation of the region with chronic discharge to the region but not significantly increased prompting ED return. Most recent 10/24/19 Wound Culture Staph and Corynbacterium. Patient denies any recent cough, congestion, sore throat, dyspnea, diarrhea or abdominal pain. She does admit to significant picking with wounds to the right upper extremity, left lower extremity as well as along the hairline. Work-up in the ED included T 97, heart rate 108, BP 150/79, respiratory rate 18, 100% room air, CBC with WBC 14, hemoglobin 9.3, platelet 440 with significant left shift as well as noted lymphopenia, unremarkable coags, CMP with ALT 135, alk phos 271 otherwise not marked appearing, blood culture x2 pending per ED, CT abdomen and pelvis with no acute concerning findings including the labial region. In the ED patient ministered normal saline, Zosyn, vancomycin as well as morphine 4 mg IV x2. Past Medical History Past Medical History (Chronic Problems): Chronic Problems (Last Reviewed 10/25/19 @ 11:[address] 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 Lissette Nolasco MD) Back problem M53.9 Bladder infection N30.90 Excessive weight loss R63.4 EXCESSIVE WEIGHT LOSS AFTER GASTRIC BYPASS PROCEDURE Gallstones K80.20 Intertrigo L30.4 ABDOMINAL WALL SKIN CREASE INTERTRIGO Kidney stones N20.0 Soft tissue mass M79.9 PAINFUL SOFT TISSUE MASS PUBIC AREA Stomach ulcer K25.9 Vitamin deficiency E56.9 High blood pressure I10 Allergies methocarbamol Allergy (Verified 11/13/19 11:23) Chest tightness gabapentin Adverse Reaction (Verified 11/13/19 11:23) abnormal gait ketorolac tromethamine [From Toradol] Adverse Reaction (Verified 11/13/19 11:23) Upset Stomach NSAIDS (Non-Steroidal Anti-Inflamma Adverse Reaction (Verified 11/13/19 11:23) gastric bipass not supposed to take tramadol Adverse Reaction (Verified 11/13/19 11:23) Upset Stomach Home Medications: Ambulatory Orders Medication Instructions Recorded Amitriptyline HCl [Elavil] 50 mg PO QHS PRN 04/30/17 Ergocalciferol [Vitamin D] 50,000 unit PO TUTH 04/30/17 Etonogestrel [Nexplanon (Bkc)] 68 mg SQ UD 04/30/17 Tamsulosin HCl [Flomax] 0.4 mg PO DAILY PRN 04/30/17 Lisinopril [Zestril] 40 mg PO BID 05/30/17 Cyanocobalamin [Vitamin B12] 1,000 mcg IM Q30D 07/06/17 Ondansetron [Zofran Odt] 4 mg PO 4X/DAY PRN PRN #30 tab 03/16/19 Hydrocodone/Acetaminophen [[place] 1 ea PO 4X/DAY PRN PRN 08/03/19 5-325 Tablet] Lactobacillus Acidophilus 1 tab PO BID #12 tab 10/27/19 [Acidophilus] Surgical History: Surgical History (Last Reviewed 10/25/19 @ 11:[address] Lissette Nolasco MD) History of cholecystectomy Z98.890, Z90.49 History of gastric bypass Z98.84 LAPAROSCOPIC MARY-EN-Y PROCEDURE AT [facility] 2016 History of incision and drainage Z98.890 INCISION AND DRAINAGE POST OP HEMATOMA ABDOMINAL WALL 09/17/16 History of incision and drainage Z98.890 INCISION AND DRAINAGE INFECTED POST OP ABDOMINAL WALL SEROMA 10/20/2016 History of nephrolithotomy with removal of calculi Z98.890, Z87.442 2 STONES REMOVED History of thyroidectomy E89.0 LEFT THYROID REMOVED Status post panniculectomy Onset Date: ~09/17/16 Z98.890 Surgical History: cholecystectomy, gastric bypass, - - Gastric bypass 04/18/15, thyroid nodular surgery, excision 8 cm painful soft tissue mass pubic area with 20 cm complex closure 04/20/17, I+D abdominal wall and pubic area with incision and drainage and excisional debridement infected seroma/hematoma (250 cm2) 05/03/17, I+D vulva involving mons pubis with excision painful infected ulcer and excision associated painful lymphedema with partial vulvectomy (120 cm2) 07/20/17, I+D vuvla involving the mons pubis area with excisional debridement nonhealing ulcer with STSG reconstruction from the right lateral abdominal wall (15 cm2) and placement of ANGIE NPWT 10/19/17, I+D vulva involving mons pubis with excisional debridement painful infected skin graft scar contour deformity, Reconstruction with abdominal wall advancement skin flap (215 cm2) and complex secondary wound closure 02/21/19, I+D abdominal wall area with incision and drainage and excisional debridement necrotic infected seroma including umbilicus (182 cm2), I+D vulva involving the mons pubis area with incision and drainage and excisional debridement necrotic infected seroma (52 cm) 03/13/19. Surgical preparation lower anterior abdominal wall with incision and drainage and excisional debridement skin, subcutaneous tissue, and fascia necrotizing soft tissue infection abscess (660 cm2) 03/28/19, partial thyroidectomy. 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 Smoking Status: Never smoker Tobacco Use: Non-smoker Alcohol: Occasional Drugs: None - *Family History Maternal Family History: Family History (Last Reviewed 10/25/19 @ 11:[address] Lissette Nolasco MD) Mother Anxiety Bleeding disorder Depression Hypertension High cholesterol Cancer Father Diabetes Hypertension Grandfather Colon cancer Diabetes Heart disease History Items: Hypertension, - - Patient notes a maternal family history of heart disease status post CABG status, history of stroke, hypertension, hyperlipidemia. Paternal Family History: Family History (Last Reviewed 10/25/19 @ 11:[address] Lissette Nolasco MD) Mother Anxiety Bleeding disorder Depression Hypertension High cholesterol Cancer Father Diabetes Hypertension Grandfather Colon cancer Diabetes Heart disease History Items: Diabetes, Hypertension Review of Systems Constitutional: Reports: Anorexia, Chills, Fever, Malaise, Weakness, Fatigue. Denies: Weight Change HEENT: Denies: Head Aches, Sinus Congestion, Sinus Drainage Cardiovascular: Denies: Chest Pain, Palpitations Respiratory: Denies: Cough, Shortness of breath at rest, Sputum production Gastrointestinal: Reports: Nausea, Vomiting. Denies: Abdominal Pain, Constipation, Diarrhea Genitourinary: Denies: Dysuria Gynecological: Reports: - - Bilateral acute on chronic labial edema, firmness, redness, tenderness. Musculoskeletal: Reports: Back Pain. Denies: Joint Pain, Joint Tenderness Skin: Reports: Skin Changes, Wounds. Denies: Rash Neurological: Denies: Numbness, Tingling, Focal weakness Psychiatric: Denies: Anxiety, Depression, Homicidal Ideations, Suicidal Ideations Hematologic/ Lymphatic: Denies: Easy Bruising, Easy Bleeding VTE Information - Inpt Only VTE Present on Admission: No VTE Mechan Device Prophylaxis: SCD's VTE Pharm Prophylaxis ordered?: Yes Patient Problems: Active and Suspected Problems (Last Reviewed 10/25/19 @ 11:[address] Lissette Nolasco MD) Sepsis (Acute) Cellulitis of labia majora (Acute) Subjective: Seated upright in the bed, fatigued and ill-appearing, notes ongoing pain. Objective: Physical Examination: General: awake, alert, oriented x 3 and cooperative, seated upright in the ED bed, fatigued and ill-appearing. Skin: normal color, turgor, no icterus, cyanosis significantly noted bilateral labial acute on chronic edema, tenderness palpation, more firm indurated regions more distally, no specific fluctuance noted, ismael-suprapubic wound erythema and tenderness palpation as well as warmth. HEENT: AT/NC, EOMI, PERRLA, dry MM, no carotid bruits or JVD noted. Lungs: CTA bilaterally, moderate effort, mild decrease BL bases, no rales, ronchi or wheezing. Heart: Regular rate and rhythm; no gallop, rub audible. Abdomen: soft, NTTP, ND, normal BS, no HSM. Extremities: no cyanosis, clubbing, or edema, see skin. Neurological: patient awake, alert, oriented x 3; cognitive function intact; pupils equally reactive to light and accomodation; cranial nerves II-XII grossly normal, moving all 4 extremities, no focal deficits, strength moderately to severely global decrease secondary to acute presentation. Psychiatric: affect appears fatigued and uncomfortable, no acute evidence of depressive or anxiety feelings. - Physical Exam Vitals/I&O's: Vital Signs Temp Pulse Resp BP Pulse Ox 97 F L 99 17 125/68 H 98 11/13/19 11:23 11/13/19 12:35 11/13/19 12:35 11/13/19 12:35 11/13/19 12:35 Oxygen Delivery Method Room Air Weight: 210 lb Body Mass Index (BMI) 33.9 Laboratory Results 11/13/19 12:20: WBC 14.0 H, RBC 3.89 L, Hgb 9.3 L, Hct 29.7 L, MCV 76.3 L, MCH 23.9 L, MCHC 31.3 L, RDW Std Deviation 50.6 H, RDW Coeff of Andrez 18.9 H, Plt Count 440, MPV 10.7, Immature Gran % (Auto) 0.500, Neut % (Auto) 90.7 H, Lymph % (Auto) 3.1 L, [place] % (Auto) 4.7, Eos % (Auto) 0.6, Baso % (Auto) 0.4, Absolute Neuts (auto) 12.7 H, Absolute Lymphs (auto) 0.44 L, Nucleated RBC % 0, Differential Comment COMMENT 11/13/19 12:20: PT 14.5, INR 1.2, APTT 32.9 11/13/19 12:20: Sodium 136, Potassium 3.6, Chloride 103, Carbon Dioxide 25.0, Anion Gap 8, BUN 12, Creatinine 0.71, Estim Creat Clear Calc 105.50, Est GFR (MDRD) Af Amer 122, Est GFR (MDRD) Non-Af 101, BUN/Creatinine Ratio 17.0, Glucose 95, Calcium 8.9, Total Bilirubin 0.90, AST 27, ALT 135 H, Alkaline Phosphatase 271 H, Total Protein 7.0, Albumin 2.8 L, Globulin 4.2, Albumin/Globulin Ratio 0.7 L 11/13/19 12:20: Lactic Acid 0.9 Current Medications Piperacillin Sod/Tazobactam (Sod 4.5 gm/ Sodium Chloride) 100 mls @ 200 mls/hr IV X1 ONE Stop: 11/13/19 13:54 Assessment/Plan All Active Problems (Last Reviewed 10/25/19 @ 11:[address] Lissette Nolasco MD) Sepsis (Acute) Cellulitis of labia majora (Acute) Cellulitis of abdominal wall (Acute) The patient is a 34 y/o F w/ PMHx: Chronic LFT elevations, Chronic anemia, Chronic pain syndrome with notable concerns for Opiate abuse, HTN, HLD, GERD with hx gastric ulcer, following w/ Dr. Mendieta with Panniculectomy 1 year prior with chronic suprapubic ulcer following with [facility], Chronic BL Labial swelling/lymphedema, Obesity who presents to the [facility] ED on 11/13/19, referred from the [facility] with 2 days of fever, chills, worsening lower periwound erythema, tenderness to palpation, increased warmth as well as increased labial bilateral size. 1. Acute Sepsis secondary to Acutely Infected Chronic Wound and BL Labia Majora Cellulitis: Will admit to [facility], maintain on IV vanc and zosyn, will obtain Wound Cx, will obtain Wound MRSA PCR, plan repeat CBC in AM, monitor erythema outline with VS checks, actually be consulted per ED and would continue evaluation, PRN oral and IV pain regimen, if able encourage elevation of the labia from beneath given significant edema acute on chronically. Patient does have acute pain but given chronic narcotic seeking behavior will need to be cautious once clinically improved and upon discharge. De-escalate off vancomycin if MRSA wound negative. 2. Chronic liver function elevations: Admission AST/ALT 27/135, alk phos 271, chronically elevated in the past, continue to trend as needed. 3. Chronic microcytic anemia: Admission hemoglobin 9.3, MCV 76.3, iron panel, ferritin pending. 4. Hypertension: Continue home regimen including lisinopril although significantly elevated dose, may necessitate alteration of regimen, PRN hydralazine. 5. Hyperlipidemia: Not on regimen, defer to outpatient. 6. Obesity: Weight loss and lifestyle changes encouraged. 7. GERD with history of gastric ulcer: We will maintain on famotidine. 8. DVT prophylaxis: SCDs, Lovenox. Inpatient E&M: [id number] Init Hosp L3
--- NOTE | 2019-11-13 14:01 | NURSING ---
MED SURG WHITE CELLULITIS
--- NOTE | 2019-11-13 14:06 | NURSING ---
323 WHITE ALCOHOL/OPIATE WITHDRAWAL
[2019-11-13 14:34] VITALS: BP 135/89; PULSE 99; RESP 16; TEMP 37.3; O2SAT 97; O2SAT 98
[2019-11-13 15:47] VITALS: BMI 34.4
[2019-11-13 15:50] VITALS: BP 144/83; PULSE 103; RESP 18; TEMP 37.5; O2SAT 95
[2019-11-13 15:54] VITALS: BMI 34.5
[2019-11-13] MEDS: HYDROmorphone 0.5 MG/0.5 ML SYRINGE IV ×2 (16:06→20:05)
--- NOTE | 2019-11-13 16:06 | NURSING ---
wound photo: mid lower abdomen
[2019-11-13] MEDS: 0.9% Normal Saline 1,000 ML 100 ML IV (16:07)
--- NOTE | 2019-11-13 16:07 | NURSING ---
wound photo: right forearm
--- NOTE | 2019-11-13 16:29 | PCM.RX.CS ---
Consult Pharmacy has been consulted to manage selected antiobiotic: Vancomycin Type of Consult: New start Suspected Infection: Skin/Soft tissue Prior Doses of Antibiotics Received/Current Regimen: Vancomycin 1500mg iv x1 in the ER on 11/13/19 Labs: Sodium 136 mmol/L (136-145) 11/13/19 12:20 Potassium 3.6 mmol/L (3.5-5.1) 11/13/19 12:20 Chloride 103 mmol/L (98-107) 11/13/19 12:20 Carbon Dioxide 25.0 mmol/L (21.0-32.0) 11/13/19 12:20 Anion Gap 8 (5-15) 11/13/19 12:20 BUN 12 mg/dL (7-18) 11/13/19 12:20 Creatinine 0.71 mg/dL (0.55-1.02) 11/13/19 12:20 Est GFR (MDRD) Af Amer 122 mL/min (>60) 11/13/19 12:20 Est GFR (MDRD) Non-Af 101 mL/min (>60) 11/13/19 12:20 BUN/Creatinine Ratio 17.0 RATIO (10-20) 11/13/19 12:20 Glucose 95 mg/dL (74-106) 11/13/19 12:20 Weight used for dosin.9 kg Estimated Creatinine Clearance: 132ml/min Goal Trough: 15-20 mcg/mL Pharmacy Plan for Drug Dosing: NEW START IV VANCOMYCIN Consulting Physician: Alcira Indication: Cellulitis Goal Trough: 15-20 SrCr: 0.7 CrCl: 132ml/min (calculated using an adjusted body weight of 74kg) Comments: pt received a x1 dose in the ER 11/12 of 1500mg Vancomycin IV Vancomcyin Dose: 1250mg IV q8h starting 11/13/19 at 2300 Pending Level: 11/13 @ 1430 Pharmacy Service will continue to monitor and adjust dosing as required. Follow-Up Labs: Trough Vancomycin - 11/13 @ 1430
[2019-11-13 16:36] LABS: Magnesium 1.8 mg/dL (1.6-2.6)
[2019-11-13 16:45] LABS: Ferritin 48 ng/mL (8-252); Iron 6 ug/dL (50-170); Iron Binding Capacity,Total 335 ug/dL (250-450); PERCENT IRON SATURATION 1.8 % (15.0-55.0)
--- NOTE | 2019-11-13 17:25 | CON.PCM_ITS ---
- Consult Date of Consult: 11/13/19 - Reason for Consult Reason for Consult Date of Consultation: 10/24/19 Reason for Consultation: Nonhealing ulcer abdominal wall and vulva involving the mons pubis with surrounding cellulitis. REFERRING PHYSICIAN: Dr. Ruiz. REPLANTING MACHINE OPERATOR: Dr. Mendieta. History of Present Illness: The patient is a 34 year old F presented to the ED with fever, and lower abdominal pain, and increasing redness that has worsened since Wednesday. This patient had a history of recurrent lower abdominal wall surgical wound infection/abscesses/nonhealing wound with necrotizing soft tissue infections, underwent multiple surgeries with the last surgery being in March,. She states the abdominal wall ulcer had healed 2 months ago and has recently re- ulcerated. In the ED, her WBC was 13.8. Her Temp was 102. She was started on IV Cleocin and Zosyn. She has had problems with ERIKA with Vancomycin in the past. Initial wound culture shows MSSA. CT scan abdomen and pelvis with IV contrast revealed tissue defect in the anterior lower abdominal wall with edematous changes extending down to the mons pubis more on the left side. No evidence of intra-abdominal abscesses. I was asked to evaluate this patient for surgical options for treatment. Past Medical History Past Medical History (Chronic Problems): Chronic Problems (Last Reviewed 10/25/19 @ 11:[address] 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 Lissette Nolasco MD) Back problem M53.9 Bladder infection N30.90 Excessive weight loss R63.4 EXCESSIVE WEIGHT LOSS AFTER GASTRIC BYPASS PROCEDURE Gallstones K80.20 Intertrigo L30.4 ABDOMINAL WALL SKIN CREASE INTERTRIGO Kidney stones N20.0 Soft tissue mass M79.9 PAINFUL SOFT TISSUE MASS PUBIC AREA Stomach ulcer K25.9 Vitamin deficiency E56.9 High blood pressure I10 Allergies methocarbamol Allergy (Verified 10/24/19 07:23) Chest tightness gabapentin Adverse Reaction (Verified 10/24/19 07:23) abnormal gait ketorolac tromethamine [From Toradol] Adverse Reaction (Verified 10/24/19 07:23) Upset Stomach NSAIDS (Non-Steroidal Anti-Inflamma Adverse Reaction (Verified 10/24/19 07:23) gastric bipass not supposed to take tramadol Adverse Reaction (Verified 10/24/19 07:23) Upset Stomach Home Medications: Ambulatory Orders Medication Instructions Recorded Amitriptyline HCl [Elavil] 50 mg PO QHS PRN 04/30/17 Ergocalciferol [Vitamin D] 50,000 unit PO TUTH 04/30/17 Etonogestrel [Nexplanon (Bkc)] 68 mg SQ UD 04/30/17 Tamsulosin HCl [Flomax] 0.4 mg PO DAILY PRN 04/30/17 Lisinopril [Zestril] 40 mg PO BID 05/30/17 Cyanocobalamin [Vitamin B12] 1,000 mcg IM Q30D 07/06/17 Ondansetron [Zofran Odt] 4 mg PO 4X/DAY PRN PRN #30 tab 03/16/19 Hydrocodone/Acetaminophen [[place]way 1 ea PO 4X/DAY PRN PRN 08/03/19 5-325 Tablet] Surgical History: Surgical History (Last Reviewed 10/25/19 @ 11:[address] Lissette Nolasco MD) History of cholecystectomy Z98.890, Z90.49 History of gastric bypass Z98.84 LAPAROSCOPIC MARY-EN-Y PROCEDURE AT [facility] 2016 History of incision and drainage Z98.890 INCISION AND DRAINAGE POST OP HEMATOMA ABDOMINAL WALL 09/17/16 History of incision and drainage Z98.890 INCISION AND DRAINAGE INFECTED POST OP ABDOMINAL WALL SEROMA 10/20/2016 History of nephrolithotomy with removal of calculi Z98.890, Z87.442 2 STONES REMOVED History of thyroidectomy E89.0 LEFT THYROID REMOVED Status post panniculectomy Onset Date: ~09/17/16 Z98.890 Surgical History: cholecystectomy, gastric bypass, - - gastric bypass 04/18/15,thyroid nodular surgery. Excision 8 cm painful soft tissue mass pubic area with 20 cm complex closure 04/20/17. Surgical preparation lower anterior abdominal wall and pubic area with incision and drainage and excisional debridement infected seroma/hematoma (250 cm2) 05/03/17. Surgical preparation vulva involving mons pubis with excision painful infected ulcer and excision associated painful lymphedema with partial vulvectomy (120 cm2) 07/20/17. Surgical preparation vuvla involving the mons pubis area with excisional debridement nonhealing ulcer with STSG reconstruction from the right lateral abdominal wall (15 cm2) and placement of ANGIE NPWT 10/19/17. 1. Surgical preparation vulva involving mons pubis with excisional debridement painful infected skin graft scar contour deformity. 2. Reconstruction with abdominal wall advancement skin flap (215 cm2) and complex secondary wound closure 02/21/19. 1. Surgical preparation abdominal wall area with incision and drainage and excisional debridement necrotic infected seroma including umbilicus (182 cm2). 2. Surgical preparation vulva involving the mons pubis area with incision and drainage and excisional debridement necrotic infected seroma (52 cm) 03/13/19. Surgical preparation lower anterior abdominal wall with incision and drainage and excisional debridement skin, subcutaneous tissue, and fascia necrotizing soft tissue infection abscess (660 cm2) 03/28/19. Psychiatric History: No pertinent psych hx PRACTICING UROLOGIST History: No pertinent PRACTICING UROLOGIST history Lives: Spouse/ Significant Other Smoking Status: Never smoker Alcohol: None Drugs: None - *Family History Maternal Family History: Family History (Last Reviewed 10/25/19 @ 11:[address] Lissette Nolasco MD) Mother Anxiety Bleeding disorder Depression Hypertension High cholesterol Cancer Father Diabetes Hypertension Grandfather Colon cancer Diabetes Heart disease History Items: Hypertension Paternal Family History: Family History (Last Reviewed 10/25/19 @ 11:[address] Lissette Nolasco MD) Mother Anxiety Bleeding disorder Depression Hypertension High cholesterol Cancer Father Diabetes Hypertension Grandfather Colon cancer Diabetes Heart disease History Items: Hypertension Review of Systems Comment: Constitutional: Reports: Fever. Denies: Anorexia, Chills, Weakness. Eyes: Denies: Blurred vision, Double vision, Drainage, Redness. HEENT: Denies: Difficulty Hearing, Ear Pain, Eye Pain, Nasal Congestion, Sore Throat. Cardiovascular: Denies: Chest Pain, Chest Pressure, Chest Tightness, Heaviness, Palpitations, Syncope. Respiratory: Denies: Cough, Pleuritic Pain, Shortness of Breath, Sputum production, Wheezing. Gastrointestinal: Reports: Abdominal Pain. Denies: Constipation, Diarrhea, Nausea, Vomiting. Genitourinary: Denies: Dysuria, Frequency, Hematuria. Musculoskeletal: Denies: Arm Pain, Back Pain, Foot Pain. Neurological: Denies: Balance problems, Double vision, Change in Speech, Slurred speech, Confusion, Focal weakness, Incoordination, Numbness. Psychiatric: Denies: Anxiety, Depression. Endocrine: Denies: Change in Body Habitus, Polydipsia, Polyuria - Physical Exam Vitals/I&O's: General: Alert, Oriented x3, Cooperative, No apparent distress HEENT: Atraumatic, PERRLA, EOMI, Normocephalic Oral: Moist Mucosa, No Gingival or Mucosal Lesions/ Ulcerations Neck: Supple, Nontender, No cervical adenopathy. Lungs: Clear to auscultation. Cardiovascular: Regular rate, Regular Rhythm. Abdomen: Soft, Non-Distended, No Hepato-splenomegaly, Lower abdominal tenderness due to extensive cellulitis. In the lower midline of the abdominal wall and extending into the vulva involving the mons pubis is a nonhealing ulcer. Exudate present. Measures 4 x 7 cm. Extremities: No clubbing, No cyanosis, Edema - Trace edema. Genitalia: Has lymphedema genitalia involving genitocrural crease extending up to labia. Lymphatic: No Cervical, Supraclavicular, or Inguinal Adenopathy Neurological: Cranial nerves II-XII grossly intact. Psych/Mental Status: Normal Affect, Appropriate, Alert and oriented to time, place, person, mood and affect. Vital Signs Temp Pulse Resp BP Pulse Ox 99.0 F 111 H 18 123/75 H 95 10/24/19 15:00 10/24/19 15:00 10/24/19 15:00 10/24/19 15:10/24/19 15:25 Oxygen Delivery Method Room Air Weight: 219 lb 5.759 oz Body Mass Index (BMI) 35.4 Intake and Output for Last 24 Hours 10/22/19 10/23/19 10/24/19 23:59 23:59 23:59 Intake Total 1736 / 1736 Balance 1736 / 1736 Laboratory Results 10/24/19 07:06: WBC 13.8 H, RBC 4.25, Hgb 9.9 L, Hct 30.9 L, MCV 72.7 L, MCH 23.3 L, MCHC 32.0, RDW Std Deviation 42.4, RDW Coeff of Andrez 16.4 H, Plt Count 440, MPV 11.1, Immature Gran % (Auto) 1.900 H, Neut % (Auto) 87.1 H, Lymph % ( Auto) 2.8 L, [place] % (Auto) 5.7, Eos % (Auto) 2.1, Baso % (Auto) 0.4, Absolute Neuts (auto) 12.0 H, Absolute Lymphs (auto) 0.38 L, Nucleated RBC % 0 10/24/19 07:06: PT 13.9, INR 1.1, APTT 34.8 10/24/19 07:06: Sodium 132 L, Potassium 3.9, Chloride 102, Carbon Dioxide 24.0, Anion Gap 6, BUN 9, Creatinine 0.70, Estim Creat Clear Calc 107.01, Est GFR (MDRD) Af Amer 123, Est GFR (MDRD) Non-Af 101, BUN/Creatinine Ratio 12.8, Glucose 92, Calcium 8.5, Total Bilirubin 0.60, AST 37, ALT 72 H, Alkaline Phosphatase 259 H, Troponin I < 0.015, Total Protein 7.2, Albumin 2.6 L, Globulin 4.6 H, Albumin/Globulin Ratio 0.6 L 10/24/19 07:06: Lactic Acid 1.6 10/24/19 07:06: Serum , Qual NEGATIVE 10/24/19 09:50: Urine Color Yellow, Urine Clarity Sl. Cloudy, Urine pH 7.0, Ur Specific [place] 1.005, Urine Protein 15 H, Urine Glucose (UA) Normal, Urine Ketones 5 H, Urine Occult Blood 10 H, Urine Nitrite Negative, Urine Bilirubin Negative, Urine Urobilinogen Normal, Ur Leukocyte Esterase 500 H, Urine RBC 0 SEEN, Urine WBC 0-5 SEEN, Ur Squamous Epith Cells 10-25 SEEN, Urine Bacteria 1+, Urine Mucus 0 SEEN 10/24/19 12:30: S.aureus Protein A PCR POSITIVE H, MRSA (PCR) Negative Diagnostic Data Abdomen/Pelvis CT 10/24/19 06:59 IMPRESSION: Status post subtotal gastrectomy. Tissue defect in the anterior lower left abdominal wall described with edematous changes which progress E into the mons pubis worse on the left side. Bilateral ovarian cysts. Electronically Signed: Demetrius Roma, at 9:49 EDT , Service support , Current Medications Acetaminophen (Tylenol) 650 mg PO Q6H PRN PRN PRN Reason: Pain Score 1-10/Temp > 100.7 F Last Admin: 10/24/19 12:36 Dose: 650 mg Documented by: Amitriptyline HCl (Elavil) 50 mg PO QHS PRN PRN Reason: SLEEP Hydromorphone HCl (Dilaudid Inj) 1 mg IV Q4H PRN PRN PRN Reason: Pain Score 6-10/10 Last Admin: 10/24/19 17:08 Dose: 1 mg Documented by: Sodium Chloride () 1,000 mls @ 100 mls/hr IV .Q10H [facility] Last Admin: 10/24/19 12:39 Dose: 100 mls/hr Documented by: Piperacillin Sod/Tazobactam (Sod 3.375 gm/ Sodium Chloride) 50 mls @ 12.5 mls/hr IV Q8 [facility] Clindamycin Phosphate 900 mg/ (Dextrose) 106 mls @ 150 mls/hr IV Q8 [facility] Last Infusion: 10/24/19 15:53 Dose: Infused Documented by: Sodium Chloride () 250 mls @ 15 mls/hr IV .[id number] PRN PRN Reason: Saline Flush Sodium Chloride () 250 mls @ 15 mls/hr IV .[id number] PRN PRN Reason: Additional IVPB Infusion Lactobacillus Acidophilus (Acidophilus) 1 tablet PO TID [facility] Last Admin: 10/24/19 12:42 Dose: 1 tablet Documented by: Lisinopril (Zestril) 40 mg PO BID [facility] Nutritional Formula (Lactose Free) (Ensure Enlive) 120 ml PO 4X/DAY [facility] Last Admin: 10/24/19 17:19 Dose: Not Given Documented by: Ondansetron HCl (Zofran) 4 mg IV Q8H PRN PRN PRN Reason: NAUSEA/VOMITING Oxycodone HCl (Oxyir) 5 mg PO Q4H PRN PRN PRN Reason: Pain Score 4-5/10 Senna/Docusate Sodium (Senokot-S, Catrachita-Colace) 2 tablet PO BID PRN PRN PRN Reason: Constipation Sodium Chloride () 10 - 40 ml IV UD PRN PRN Reason: SALINE FLUSH Tamsulosin HCl (Flomax) 0.4 mg PO DAILY PRN PRN Reason: kidney stones Assessment/Plan All Active Problems (Last Reviewed 10/25/19 @ 11:[address] Lissette Nolasco MD) Cellulitis of abdominal wall (Acute) 1. Nonhealing ulcer abdominal wall and vulva involving the mons pubis with surrounding cellulitis. 2. 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 3. 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 CT reviewed. Continue Cleocin and Zosyn. Wound culture shows preliminary MSSA. Continue Silver dressing changes to the nonhealing ulcer abdominal wall and vulva involving the mons pubis. Patient should respond to the IV antibiotics. If so can then discharge home on po antibiotics. If the cellulitis persists despite IV antibiotics or if the fever persists, then she will need operative intervention with incision and drainage and excisional debridement abdominal wall tissue. She has had necrotizing soft tissue infections in the past. If surgery is done, the wound will be left open and postop wound care started with Dakin's dressing changes. She has tried the VAC in the past and had trouble tolerating it. Anticipate increased metabolic demands from the ulcer and the infection. Will check a Prealbumin and encourage nutritional supplementation with protein to help the healing process. Patient was informed of the risks and complications of the procedure including alternatives to surgery. These were discussed with the patient personally. Patient voices understanding and wishes to proceed with the current plan of IV antibiotics and close observation. Patient understands that surgery may be necessary. After discharge, [facility]up [facility].
[2019-11-13] MEDS: oxyCODONE 5 MG Tablet 10 MG PO ×2 (17:55→21:53)
[2019-11-13 18:11] LABS: M R Staph aureus DNA By PCR Negative (Negative); Probe Check PASS; Specimen Processing Control PASS; Staph aureus DNA By PCR POSITIVE (Negative)
[2019-11-13 20:07] VITALS: BP 139/81; PULSE 103; RESP 16; TEMP 37; O2SAT 100
[2019-11-13] MEDS: Lisinopril 40 MG Tablet PO (21:08)
[2019-11-13] MEDS: Famotidine 20 MG Tablet PO (21:08)
[2019-11-14] MEDS: HYDROmorphone 0.5 MG/0.5 ML SYRINGE IV ×3 (00:49→08:40)
[2019-11-14 02:09] VITALS: BP 140/69; PULSE 89; RESP 18; TEMP 37.1; O2SAT 99
[2019-11-14] MEDS: oxyCODONE 5 MG Tablet 10 MG PO ×5 (02:23→18:38)
[2019-11-14] MEDS: 0.9% Normal Saline 1,000 ML 100 ML IV (04:37)
[2019-11-14 06:51] LABS: ALB/GLOB Ratio 0.6 RATIO (0.9-2.4); AST(SGOT) 13 U/L (15-37); Alanine Aminotransfer ALT/SGPT 84 U/L (13-56); Albumin, Serum 2.1 g/dL (3.2-5.0); Alkaline Phosphatase 212 U/L (45-117); Anion Gap 4 (5-15); BUN 7 mg/dL (7-18); BUN/Creat Ratio 13.4 RATIO (10-20); Calcium,Total 7.9 mg/dL (8.5-10.1); Chloride 105 mmol/L (98-107); Creatinine, Serum 0.52 mg/dL (0.55-1.02); EST Glomerular Filtration Rate 143 mL/min (>60); Est Glom Filt Rate - Afr Amer 173 mL/min (>60); Estimated Creatinine Clearance 144.05 ml/min; Globulin 3.7 g/dL (2.2-4.2); Glucose 101 mg/dL (74-106); Potassium 3.3 mmol/L (3.5-5.1); Protein, Total 5.8 g/dL (6.4-8.2); Sodium Level 137 mmol/L (136-145)
[2019-11-14 07:14] LABS: Differential Comment MANUAL DIFF; Lymphocyte 22 % (19-41); Monocyte 1 % (0-10); Neutrophil-Segmented 77 % (47-70); Platelet Estimate ADEQUATE (ADEQ); Red Cell Morphology NORM C+C NORMAL (NORM C&C); Total Cells Counted 100 (MANUAL DIFF)
[2019-11-14 08:15] VITALS: O2SAT 100
[2019-11-14 08:27] LABS: Absolute Lymphocyte Count 0.66 X10^3/uL (0.83-4.51); Basophil# 0.02 X10^3/uL; Basophil% 0.3 % (0-1); Eosinophil# 0.28 X10^3/uL; Eosinophils% 3.7 % (0-5); Hematocrit 25.1 % (37-47); Hemoglobin 7.6 g/dL (12.0-15.0); Lymphocyte # 0.66 X10^3/ul (4.0); Lymphocyte % 8.8 % (19-41); Mean Corp Hgb Conc 30.3 g/dL (32-36); Mean Corpuscular Hgb 23.4 pg (27.0-32.0); Mean Corpuscular Volume 77.2 fL (81-99); Mean Platelet Vol. 11.2 fl (6.2-12.0); Monocyte# 0.48 X10^3/uL; Monocyte% 6.4 % (0-10); NRBC Flagged by Analyzer 0 % (0-5); Neutrophil % 80.4 % (47-70); Platelet Count 353 K/mm3 (150-450); RBC Distribution Width CV 18.8 % (11.6-14.6); RBC Distribution Width SD 51.6 fl (35.1-43.9); Red Blood Count 3.25 M/mm3 (4.2-5.4); White Blood Count 7.5 K/mm3 (4.4-11.0)
[2019-11-14 08:35] VITALS: BP 121/68; PULSE 85; RESP 18; TEMP 37; O2SAT 100
[2019-11-14] MEDS: Famotidine 20 MG Tablet PO ×2 (08:38→21:30)
[2019-11-14] MEDS: Lisinopril 40 MG Tablet PO ×2 (08:38→21:30)
--- NOTE | 2019-11-14 10:49 | PN_ITS ---
Patient Problems: Active and Suspected Problems (Last Reviewed 10/25/19 @ 11:[address] Lissette Nolasco MD) Sepsis (Acute) Cellulitis of labia majora (Acute) Fever (Acute) Cellulitis of abdominal wall (Acute) Subjective: Patient seen and examined. She complains of severe pain in the lower abdomen and pubic area from the cellulitis. She denies fever or chills, nausea or vomiting or any increasing discharge from the cellulitic area. Review of systems otherwise negative. WBC is down to 7.5 today. Potassium is 3.3 today. Hb is down to 7.6 today. Vitals/I&O's: Vital Signs Temp Pulse Resp BP Pulse Ox 98.6 F 85 18 121/68 H 100 11/14/19 08:35 11/14/19 08:35 11/14/19 08:35 11/14/19 08:35 11/14/19 08:35 Oxygen Delivery Method Room Air Weight: 213 lb 10.047 oz Body Mass Index (BMI) 34.4 Intake and Output for Last 24 Hours 11/12/19 11/13/19 11/14/19 23:59 23:59 23:59 Intake Total 2655.00 / 2655.00 1071.67 / 1071.67 Balance 2655.00 / 2655.00 1071.67 / 1071.67 General: Alert, Oriented x3, Cooperative, No apparent distress HEENT: Atraumatic, PERRLA, EOMI, Normocephalic Oral: Moist Mucosa Neck: Supple, No JVD, Negative Carotid Bruits Lungs: Clear to auscultation, Normal air movement, No rhonchi, No wheeze Cardiovascular: Regular rate, Regular Rhythm, Normal S1, Normal S2, No murmurs Abdomen: Bowel Sounds Present, Soft, Non Tender Extremities: No edema, Capillary Refill Less than 3 Seconds Skin: - - has ulceration in the pannus of the abdomen, with severely swollen and erythematous labia majora, tender to touch, with differential warmth Musculoskeletal: No Tenderness to Palpation of Joints or Extremities Lymphatic: No Cervical, Supraclavicular, or Inguinal Adenopathy Neurological: Cranial nerves II-XII grossly intact, Neuro grossly intact, Motor Exam 5/5 strength throughout Psych/Mental Status: Normal Affect, Appropriate, Alert and oriented to time, place, person, mood and affect Microbiology Past 72 Hours 11/13/19 14:20 Wound - Abdominal Gram Stain - Final 11/13/19 14:20 Wound - Abdominal Wound Culture - Preliminary Staphylococcus aureus Beta streptococcus Laboratory Results 11/13/19 12:20: WBC 14.0 H, RBC 3.89 L, Hgb 9.3 L, Hct 29.7 L, MCV 76.3 L, MCH 23.9 L, MCHC 31.3 L, RDW Std Deviation 50.6 H, RDW Coeff of Andrez 18.9 H, Plt Count 440, MPV 10.7, Immature Gran % (Auto) 0.500, Neut % (Auto) 90.7 H, Lymph % (Auto) 3.1 L, [place] % (Auto) 4.7, Eos % (Auto) 0.6, Baso % (Auto) 0.4, Absolute Neuts (auto) 12.7 H, Absolute Lymphs (auto) 0.44 L, Nucleated RBC % 0, Differential Comment COMMENT 11/13/19 12:20: PT 14.5, INR 1.2, APTT 32.9 11/13/19 12:20: Sodium 136, Potassium 3.6, Chloride 103, Carbon Dioxide 25.0, Anion Gap 8, BUN 12, Creatinine 0.71, Estim Creat Clear Calc 105.50, Est GFR (MDRD) Af Amer 122, Est GFR (MDRD) Non-Af 101, BUN/Creatinine Ratio 17.0, Glucose 95, Calcium 8.9, Total Bilirubin 0.90, AST 27, ALT 135 H, Alkaline Phosphatase 271 H, Total Protein 7.0, Albumin 2.8 L, Globulin 4.2, Albumin/Globulin Ratio 0.7 L 11/13/19 12:20: Lactic Acid 0.9 11/13/19 12:20: Iron 6 L, TIBC 335, Iron Saturation 1.8 L, Ferritin 48 11/13/19 12:20: Magnesium 1.8 11/13/19 16:00: S.aureus Protein A PCR POSITIVE H, MRSA (PCR) Negative 11/14/19 06:16: WBC 7.5, RBC 3.25 L, Hgb 7.6 L, Hct 25.1 L, MCV 77.2 L, MCH 23.4 L, MCHC 30.3 L, RDW Std Deviation 51.6 H, RDW Coeff of Andrez 18.8 H, Plt Count 353, MPV 11.2, Immature Gran % (Auto) 0.400, Neut % (Auto) 80.4 H, Lymph % (Auto) 8.8 L, [place] % (Auto) 6.4, Eos % (Auto) 3.7, Baso % (Auto) 0.3, Absolute Neuts (auto) 6.0, Absolute Lymphs (auto) 0.66 L, Total Counted 100, Neutrophils % (Manual) 77 H, Lymphocytes % (Manual) 22, Monocytes % (Manual) 1, Nucleated RBC % 0, Differential Comment MANUAL DIFF, Platelet Estimate ADEQUATE, RBC Morphology NORM C+C 11/14/19 06:16: Sodium 137, Potassium 3.3 L, Chloride 105, Carbon Dioxide 28.0, Anion Gap 4 L, BUN 7, Creatinine 0.52 L, Estim Creat Clear Calc 144.05, Est GFR (MDRD) Af Amer 173, Est GFR (MDRD) Non-Af 143, BUN/Creatinine Ratio 13.4, Glucose 101, Calcium 7.9 L, Total Bilirubin 0.50, AST 13 L, ALT 84 H, Alkaline Phosphatase 212 H, Total Protein 5.8 L, Albumin 2.1 L, Globulin 3.7, Albumin/Globulin Ratio 0.6 L Current Medications Acetaminophen (Tylenol) 650 mg PO Q6H PRN PRN PRN Reason: Pain Score 1-10/Temp > 100.7 F Al Hydroxide/Mg Hydroxide (Mylanta Ii) 30 ml PO Q6H PRN PRN PRN Reason: Gastric Burning Amitriptyline HCl (Elavil) 50 mg PO QHS PRN PRN PRN Reason: SLEEP Enoxaparin Sodium (Lovenox) 40 mg SC DAILY [facility] Last Admin: 11/14/19 08:40 Dose: Not Given Documented by: Famotidine (Pepcid) 20 mg PO BID [facility] Last Admin: 11/14/19 08:38 Dose: 20 mg Documented by: Guaifenesin (Robitussin) 20 ml PO Q4H PRN PRN PRN Reason: COUGH Hydralazine HCl (Apresoline Iv) 10 mg IV Q4H PRN PRN PRN Reason: SBP > 160 Hydromorphone HCl (Dilaudid Inj) 0.5 mg IV Q4H PRN PRN PRN Reason: Pain Score 6-10/10 Last Admin: 11/14/19 08:40 Dose: 0.5 mg Documented by: Sodium Chloride () 1,000 mls @ 100 mls/hr IV .Q10H [facility] Last Infusion: 11/14/19 08:14 Dose: 100 mls/hr Documented by: Piperacillin Sod/Tazobactam (Sod 3.375 gm/ Sodium Chloride) 50 mls @ 12.5 mls/hr IV Q8 [facility] Last Infusion: 11/14/19 08:58 Dose: Infused Documented by: Vancomycin IV Pharmacy to Dose (1 ea/ Sodium Chloride) 500 mls @ 250 mls/hr IV X1 PRN; Protocol PRN Reason: Rx to Dose Sodium Chloride () 250 mls @ 15 mls/hr IV .[id number] PRN PRN Reason: Saline Flush Sodium Chloride () 250 mls @ 15 mls/hr IV .[id number] PRN PRN Reason: Additional IVPB Infusion Vancomycin HCl 1,250 mg/ (Sodium Chloride) 275 mls @ 167 mls/hr IV Q8H [facility] Last Infusion: 11/14/19 08:14 Dose: Infused Documented by: Lactobacillus Acidophilus (Acidophilus) 1 tablet PO BID [facility] Last Admin: 11/14/19 08:38 Dose: 1 tablet Documented by: Lisinopril (Zestril) 40 mg PO BID [facility] Last Admin: 11/14/19 08:38 Dose: 40 mg Documented by: Magnesium Hydroxide (Milk Of Magnesia) 30 ml PO DAILY PRN PRN PRN Reason: Constipation Ondansetron HCl (Zofran) 4 mg IV Q8H PRN PRN PRN Reason: NAUSEA/VOMITING Oxycodone HCl (Oxyir) 10 mg PO Q4H PRN PRN PRN Reason: Pain Score 4-5/10 Last Admin: 11/14/19 10:20 Dose: 10 mg Documented by: Prochlorperazine Edisylate (Compazine Iv) 5 mg IV Q4H PRN PRN PRN Reason: Breakthrough nausea/vomiting Psyllium Hydrophilic Mucilloid (Metamucil) 1 packet PO DAILY PRN PRN PRN Reason: Constipation Senna/Docusate Sodium (Senokot-S, Catrachita-Colace) 2 tablet PO BID PRN PRN PRN Reason: Constipation Sodium Chloride () 10 - 40 ml IV UD PRN PRN Reason: SALINE FLUSH Tamsulosin HCl (Flomax) 0.4 mg PO DAILY PRN PRN Reason: kidney stones Temazepam (Restoril) 15 mg PO QHS PRN PRN PRN Reason: INSOMNIA Throat Lozenges (Cepacol Sore Throat Lozenge) 1 lozenge MUCOUS MEM Q2H PRN PRN PRN Reason: SORE THROAT STROKE Vital Signs/Narrative: Vital Signs Temp Pulse Resp BP Pulse Ox 11/14/19 08:35 98.6 F 85 18 121/68 H 100 Medical Necessity - Tobacco Use Smoking Status: Never smoker Tobacco Use: Non-smoker Assessment/Plan All Active Problems (Last Reviewed 10/25/19 @ 11:[address] Lissette Nolasco MD) Sepsis (Acute) Cellulitis of labia majora (Acute) Fever (Acute) Cellulitis of abdominal wall (Acute) 1. Sepsis due to cellulitis of the labia majora and abdominal panniculitis * On IV vancomycin and Zosyn. Complains of uncontrolled pain in the wound area today. * BC has trended down to 7.5 from 14 on admission. * Blood cultures pending. On IV vancomycin and Zosyn. * Per plastic surgery on board, plan is for conservative management for now to see if she responds to IV antibiotics. If she does not, then she may need surgical intervention. * On Dilaudid and Tylenol plus oxycodone for pain. * 2. Anemia: * Hemoglobin is 7.6 today. Is a microcytic hypochromic anemia. Was 9.3 on admission. * Iron panel showed iron saturation of 1.8 with iron of 6 and TIBC of 335 as well as ferritin of 48. * Will start on iron replacements therapy orally and also check stool for occult blood. * Transfuse if hemoglobin drops to less than 7. * 3. Hypertension: On lisinopril. IV hydralazine PRN. 4. Hypokalemia: Potassium is 3.3 today. Will replace. 4. Elevated liver enzymes: AST and ALT as well as ALP were elevated on admission but have started trending down. Will monitor. 6. Obesity: Status post gastric bypass surgery. Stable. Diet and lifestyle changes encouraged. DVT Prophylaxis: SCDs. Hold Lovenox for now due to drop in hemoglobin. Inpatient E&M: 00567 Subs Hosp L3
--- NOTE | 2019-11-14 11:30 | NURSING ---
wound photo: lower abdomen
[2019-11-14] MEDS: HYDROmorphone 1 MG/ML Syringe IV ×3 (12:37→20:48)
--- NOTE | 2019-11-14 15:18 | PN.SURG_ITS ---
Patient Problems: Active and Suspected Problems (Last Reviewed 10/25/19 @ 11:[address] Lissette Nolasco MD) Sepsis (Acute) Cellulitis of labia majora (Acute) Fever (Acute) Cellulitis of abdominal wall (Acute) Subjective: Patient has complaints of increased pain, especially on her right lower abdomen by her ulcer. - Physical Exam Vitals/I&O's: Vital Signs Temp Pulse Resp BP Pulse Ox 98.6 F 85 18 121/68 H 100 11/14/19 08:35 11/14/19 08:35 11/14/19 08:35 11/14/19 08:35 11/14/19 08:35 Oxygen Delivery Method Room Air Weight: 213 lb 10.047 oz Body Mass Index (BMI) 34.4 Intake and Output for Last 24 Hours 11/12/19 11/13/19 11/14/19 23:59 23:59 23:59 Intake Total 2655.00 / 2655.00 1843.34 / 1843.34 Balance 2655.00 / 2655.00 1843.34 / 1843.34 General: Alert, Oriented x3, Cooperative HEENT: Atraumatic Oral: Moist Mucosa Lungs: Normal air movement Cardiovascular: Regular rate Abdomen: Soft, Obese, Tender Skin: Ulcer/ Wound - Lower abdomen/pubic area ulcer with dressing intact. Ulcer is starting to extend in the lower abdominal crease under her pannus. Pannus redness has decreased compared to yesterday. Vulva redness has decreased but it is more firm compared to yesterday. Musculoskeletal: No Tenderness to Palpation of Joints or Extremities Neurological: Cranial nerves II-XII grossly intact Psych/Mental Status: Normal Affect, Appropriate Microbiology Past 72 Hours 11/13/19 14:20 Wound - Abdominal Gram Stain - Final 11/13/19 14:20 Wound - Abdominal Wound Culture - Preliminary Staphylococcus aureus Beta streptococcus Laboratory Results 11/13/19 12:20: Iron 6 L, TIBC 335, Iron Saturation 1.8 L, Ferritin 48 11/13/19 12:20: Magnesium 1.8 11/13/19 16:00: S.aureus Protein A PCR POSITIVE H, MRSA (PCR) Negative 11/14/19 06:16: WBC 7.5, RBC 3.25 L, Hgb 7.6 L, Hct 25.1 L, MCV 77.2 L, MCH 23.4 L, MCHC 30.3 L, RDW Std Deviation 51.6 H, RDW Coeff of Andrez 18.8 H, Plt Count 353, MPV 11.2, Immature Gran % (Auto) 0.400, Neut % (Auto) 80.4 H, Lymph % (Auto) 8.8 L, [place] % (Auto) 6.4, Eos % (Auto) 3.7, Baso % (Auto) 0.3, Absolute Neuts (auto) 6.0, Absolute Lymphs (auto) 0.66 L, Total Counted 100, Neutrophils % (Manual) 77 H, Lymphocytes % (Manual) 22, Monocytes % (Manual) 1, Nucleated RBC % 0, Differential Comment MANUAL DIFF, Platelet Estimate ADEQUATE, RBC Morphology NORM C+C 11/14/19 06:16: Sodium 137, Potassium 3.3 L, Chloride 105, Carbon Dioxide 28.0, Anion Gap 4 L, BUN 7, Creatinine 0.52 L, Estim Creat Clear Calc 144.05, Est GFR (MDRD) Af Amer 173, Est GFR (MDRD) Non-Af 143, BUN/Creatinine Ratio 13.4, Glucose 101, Calcium 7.9 L, Total Bilirubin 0.50, AST 13 L, ALT 84 H, Alkaline Phosphatase 212 H, Total Protein 5.8 L, Albumin 2.1 L, Globulin 3.7, Albumin/Globulin Ratio 0.6 L 11/14/19 15:00: Vancomycin Trough Pending Current Medications Acetaminophen (Tylenol) 650 mg PO Q6H PRN PRN PRN Reason: Pain Score 1-10/Temp > 100.7 F Al Hydroxide/Mg Hydroxide (Mylanta Ii) 30 ml PO Q6H PRN PRN PRN Reason: Gastric Burning Amitriptyline HCl (Elavil) 50 mg PO QHS PRN PRN PRN Reason: SLEEP Famotidine (Pepcid) 20 mg PO BID [facility] Last Admin: 11/14/19 08:38 Dose: 20 mg Documented by: Guaifenesin (Robitussin) 20 ml PO Q4H PRN PRN PRN Reason: COUGH Hydralazine HCl (Apresoline Iv) 10 mg IV Q4H PRN PRN PRN Reason: SBP > 160 Hydromorphone HCl (Dilaudid Inj) 1 mg IV Q4H PRN PRN PRN Reason: Pain Score 6-10/10 Last Admin: 11/14/19 12:37 Dose: 1 mg Documented by: Piperacillin Sod/Tazobactam (Sod 3.375 gm/ Sodium Chloride) 50 mls @ 12.5 mls/hr IV Q8 [facility] Last Admin: 11/14/19 14:50 Dose: 12.5 mls/hr Documented by: Vancomycin IV Pharmacy to Dose (1 ea/ Sodium Chloride) 500 mls @ 250 mls/hr IV X1 PRN; Protocol PRN Reason: Rx to Dose Sodium Chloride () 250 mls @ 15 mls/hr IV .[id number] PRN PRN Reason: Saline Flush Sodium Chloride () 250 mls @ 15 mls/hr IV .[id number] PRN PRN Reason: Additional IVPB Infusion Vancomycin HCl 1,250 mg/ (Sodium Chloride) 275 mls @ 167 mls/hr IV Q8H [facility] Last Infusion: 11/14/19 08:14 Dose: Infused Documented by: Lactobacillus Acidophilus (Acidophilus) 1 tablet PO BID [facility] Last Admin: 11/14/19 08:38 Dose: 1 tablet Documented by: Lisinopril (Zestril) 40 mg PO BID [facility] Last Admin: 11/14/19 08:38 Dose: 40 mg Documented by: Magnesium Hydroxide (Milk Of Magnesia) 30 ml PO DAILY PRN PRN PRN Reason: Constipation Ondansetron HCl (Zofran) 4 mg IV Q8H PRN PRN PRN Reason: NAUSEA/VOMITING Oxycodone HCl (Oxyir) 10 mg PO Q4H PRN PRN PRN Reason: Pain Score 4-5/10 Last Admin: 11/14/19 14:52 Dose: 10 mg Documented by: Prochlorperazine Edisylate (Compazine Iv) 5 mg IV Q4H PRN PRN PRN Reason: Breakthrough nausea/vomiting Psyllium Hydrophilic Mucilloid (Metamucil) 1 packet PO DAILY PRN PRN PRN Reason: Constipation Senna/Docusate Sodium (Senokot-S, Catrachita-Colace) 2 tablet PO BID PRN PRN PRN Reason: Constipation Sodium Chloride () 10 - 40 ml IV UD PRN PRN Reason: SALINE FLUSH Tamsulosin HCl (Flomax) 0.4 mg PO DAILY PRN PRN Reason: kidney stones Temazepam (Restoril) 15 mg PO QHS PRN PRN PRN Reason: INSOMNIA Throat Lozenges (Cepacol Sore Throat Lozenge) 1 lozenge MUCOUS MEM Q2H PRN PRN PRN Reason: SORE THROAT Medical Necessity - Tobacco Use Smoking Status: Never smoker Tobacco Use: Non-smoker Assessment/Plan All Active Problems (Last Reviewed 10/25/19 @ 11:[address] Lissette Nolasco MD) Sepsis (Acute) Cellulitis of labia majora (Acute) Fever (Acute) Cellulitis of abdominal wall (Acute) Cellulitis of abdominal wall (Acute) 1. Nonhealing ulcer abdominal wall and vulva involving the mons pubis with surrounding cellulitis. 2. 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 3. 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 Continue Zosyn and Vancomycin. Wound culture shows preliminary MSSA. Continue Silver dressing changes to the nonhealing ulcer abdominal wall and vulva involving the mons pubis. Patient should respond to the IV antibiotics. If so can then discharge home on po antibiotics. If the cellulitis persists despite IV antibiotics or if the fever persists, then she will need operative intervention with incision and drainage and excisional debridement abdominal wall tissue. She has had necrotizing soft tissue infections in the past. If surgery is done, the wound will be left open and postop wound care started with Dakin's dressing changes. She has tried the VAC in the past and had trouble tolerating it. Anticipate increased metabolic demands from the ulcer and the infection. Will check a Prealbumin and encourage nutritional supplementation with protein to help the healing process. Patient was informed of the risks and complications of the procedure including alternatives to surgery. These were discussed with the patient personally. Patient voices understanding and wishes to proceed with the current plan of IV antibiotics and close observation. Patient understands that surgery may be necessary. After discharge, followup at the [facility]. Inpatient E&M: [id number] [facility] L1
[2019-11-14 15:27] VITALS: BP 124/70; PULSE 92; RESP 18; TEMP 36.8; O2SAT 98
[2019-11-14] MEDS: 0.9% Saline Lock 10 ML Syringe IV ×2 (15:31→20:48)
--- NOTE | 2019-11-14 15:37 | CASEMGMT ---
RICARDO CM Readmission Note Previous Admission: 10/24/19-10/27/19 Diagnosis: Cellulitis, Sepsis DC Disposition: Home Current Admission Presentation: Pt referred from [facility] with 2 days of fever up to 103 on day of presentation. Increased, worsening lower periwound erythema, tenderness. Diagnosis: Sepsis secondary to infected chronic wound.IV Zosyn ordered Q8 hours, Oxyir. -
[2019-11-14 15:51] LABS: Vancomycin, Trough Level 10.1 ug/mL (5.0-15.0)
--- NOTE | 2019-11-14 17:25 | PCM.RX.CS ---
Consult Pharmacy has been consulted to manage selected antiobiotic: Vancomycin Type of Consult: Follow-up Suspected Infection: Sepsis, Skin/Soft tissue Prior Doses of Antibiotics Received/Current Regimen: current regimen is 1250mg IV q8h Labs: Sodium 137 mmol/L (136-145) 11/14/19 06:16 Potassium 3.3 mmol/L (3.5-5.1) L 11/14/19 06:16 Chloride 105 mmol/L (98-107) 11/14/19 06:16 Carbon Dioxide 28.0 mmol/L (21.0-32.0) 11/14/19 06:16 Anion Gap 4 (5-15) L 11/14/19 06:16 BUN 7 mg/dL (7-18) 11/14/19 06:16 Creatinine 0.52 mg/dL (0.55-1.02) L 11/14/19 06:16 Est GFR (MDRD) Af Amer 173 mL/min (>60) 11/14/19 06:16 Est GFR (MDRD) Non-Af 143 mL/min (>60) 11/14/19 06:16 BUN/Creatinine Ratio 13.4 RATIO (10-20) 11/14/19 06:16 Glucose 101 mg/dL (74-106) 11/14/19 06:16 Vancomycin Trough 10.1 ug/mL (5.0-15.0) 11/14/19 15:00 Microbiology: Microbiology 11/13/19 14:20 Wound - Abdominal Gram Stain - Final 11/13/19 14:20 Wound - Abdominal Wound Culture - Preliminary Staphylococcus aureus Beta streptococcus Weight used for dosin.9 kg Estimated Creatinine Clearance: 144 ml/min Goal Trough: 15-20 mcg/mL Pharmacy Plan for Drug Dosing: Vancomycin trough obtained before this afternoon's dose came back as 10.1. This is below goal range of 15-20 but the patient has only received 3 doses so far at the 8-hour frequency so it is anticipated that the trough will keep rising. However, we will still increase the dose slightly to 1500mg IV q8h and recheck the trough again before the 4th new dose. Pharmacy Service will continue to monitor and adjust dosing as required. Follow-Up Labs: Trough Vancomycin Labs to be done on [date and time ordered]: 11/15/19 23:30
[2019-11-14 20:20] VITALS: BP 139/87; PULSE 100; RESP 18; TEMP 37.3; O2SAT 100
[2019-11-15] VITALS (7 sets, daily range): BP systolic 120–143; BP diastolic 64–83; PULSE 70–98; RESP 16–18; TEMP 36.8–37.2; O2SAT 96–100
[2019-11-15] MEDS: HYDROmorphone 1 MG/ML Syringe IV ×6 (00:48→23:06)
[2019-11-15] MEDS: oxyCODONE 5 MG Tablet 10 MG PO ×5 (02:37→20:39)
[2019-11-15 07:19] LABS: Absolute Lymphocyte Count 1.05 X10^3/uL (0.83-4.51); Absolute Neutrophil Count 4.7 X10^3/uL (2.0-7.7); Basophil# 0.04 X10^3/uL; Basophil% 0.6 % (0-1); Eosinophil# 0.35 X10^3/uL; Eosinophils% 5.3 % (0-5); Hematocrit 23.8 % (37-47); Lymphocyte # 1.05 X10^3/ul (4.0); Lymphocyte % 15.9 % (19-41); Mean Corp Hgb Conc 29.4 g/dL (32-36); Mean Corpuscular Hgb 22.9 pg (27.0-32.0); Mean Corpuscular Volume 77.8 fL (81-99); Mean Platelet Vol. 10.5 fl (6.2-12.0); Monocyte# 0.49 X10^3/uL; Monocyte% 7.4 % (0-10); NRBC Flagged by Analyzer 0 % (0-5); Neutrophil # 4.66 X10^3/uL (2.7-7.7); Neutrophil % 70.5 % (47-70); Platelet Count 331 K/mm3 (150-450); RBC Distribution Width CV 19.5 % (11.6-14.6); RBC Distribution Width SD 53.7 fl (35.1-43.9); Red Blood Count 3.06 M/mm3 (4.2-5.4); White Blood Count 6.6 K/mm3 (4.4-11.0)
[2019-11-15 08:04] LABS: Anion Gap 5 (5-15); BUN 7 mg/dL (7-18); BUN/Creat Ratio 18.8 RATIO (10-20); Chloride 109 mmol/L (98-107); Creatinine, Serum 0.37 mg/dL (0.55-1.02); EST Glomerular Filtration Rate 211 mL/min (>60); Est Glom Filt Rate - Afr Amer 256 mL/min (>60); Estimated Creatinine Clearance 202.45 ml/min; Glucose 83 mg/dL (74-106); Potassium 3.5 mmol/L (3.5-5.1); Prealbumin 7.4 mg/dL (20.0-40.0); Sodium Level 140 mmol/L (136-145)
[2019-11-15] MEDS: Lisinopril 40 MG Tablet PO ×2 (09:25→22:07)
[2019-11-15] MEDS: Famotidine 20 MG Tablet PO ×2 (09:26→22:07)
[2019-11-15] MEDS: 0.9% Saline Lock 10 ML Syringe IV ×2 (13:33→18:54)
--- NOTE | 2019-11-15 14:03 | PN_ITS ---
Patient Problems: Active and Suspected Problems (Last Reviewed 10/25/19 @ 11:[address] Lissette Nolasco MD) Sepsis (Acute) Cellulitis of labia majora (Acute) Fever (Acute) Cellulitis of abdominal wall (Acute) Subjective: Patient seen and examined. She still complained of pain though, she was sitting comfortably in bed. She denied any fever, chills, nausea or vomiting. Review of systems is otherwise negative. She has remained hemodynamically stable. Vitals/I&O's: Vital Signs Temp Pulse Resp BP Pulse Ox 98.5 F 87 18 126/71 H 96 11/15/19 02:15 11/15/19 02:15 11/15/19 02:15 11/15/19 02:15 11/15/19 07:18 Oxygen Delivery Method Room Air Weight: 213 lb 10.047 oz Body Mass Index (BMI) 34.4 Intake and Output for Last 24 Hours 11/13/19 11/14/19 11/15/19 23:59 23:59 23:59 Intake Total 2655.00 / 2655.00 2711.59 / 2711.59 2214.5 / 2214.5 Balance 2655.00 / 2655.00 2711.59 / 2711.59 2214.5 / 2214.5 General: Alert, Oriented x3, Cooperative, No apparent distress HEENT: Atraumatic, PERRLA, EOMI, Normocephalic Oral: Moist Mucosa Neck: Supple, No JVD, Negative Carotid Bruits Lungs: Clear to auscultation, Normal air movement, No rhonchi, No wheeze Cardiovascular: Regular rate, Regular Rhythm, Normal S1, Normal S2, No murmurs Abdomen: Bowel Sounds Present, Soft, Non Tender Extremities: No edema, Capillary Refill Less than 3 Seconds Skin: - - has ulceration in the pannus of the abdomen, with swollen and erythematous labia majora, minimal tenderness or differential warmth Musculoskeletal: No Tenderness to Palpation of Joints or Extremities Lymphatic: No Cervical, Supraclavicular, or Inguinal Adenopathy Neurological: Cranial nerves II-XII grossly intact, Neuro grossly intact, Motor Exam 5/5 strength throughout Psych/Mental Status: Normal Affect, Appropriate, Alert and oriented to time, place, person, mood and affect Microbiology Past 72 Hours 11/13/19 12:35 Blood Culture (Wb) - Anticubital Left Blood Culture - Preliminary No growth in 48 hours. 11/13/19 12:20 Blood Culture (Wb) - Right Wrist Blood Culture - Preliminary No growth in 48 hours. 11/13/19 14:20 Wound - Abdominal Gram Stain - Final 11/13/19 14:20 Wound - Abdominal Wound Culture - Preliminary Staphylococcus aureus Streptococcus group A Gram positive roni 11/13/19 14:20 Wound - Abdominal Anaerobic Culture - Preliminary Checking for anaerobes, further studies to follow. Laboratory Results 11/14/19 15:00: Vancomycin Trough 10.1 11/15/19 06:22: WBC 6.6, RBC 3.06 L, Hgb 7.0 L, Hct 23.8 L, MCV 77.8 L, MCH 22.9 L, MCHC 29.4 L, RDW Std Deviation 53.7 H, RDW Coeff of Andrez 19.5 H, Plt Count 331, MPV 10.5, Immature Gran % (Auto) 0.300, Neut % (Auto) 70.5 H, Lymph % (Auto) 15.9 L, [place] % (Auto) 7.4, Eos % (Auto) 5.3 H, Baso % (Auto) 0.6, Absolute Neuts (auto) 4.7, Absolute Lymphs (auto) 1.05, Nucleated RBC % 0 11/15/19 06:22: Sodium 140, Potassium 3.5, Chloride 109 H, Carbon Dioxide 26.0, Anion Gap 5, BUN 7, Creatinine 0.37 L, Estim Creat Clear Calc 202.45, Est GFR (MDRD) Af Amer 256, Est GFR (MDRD) Non-Af 211, BUN/Creatinine Ratio 18.8, Glucose 83, Calcium 8.0 L, Prealbumin 7.4 L Diagnostic Data Abdomen/Pelvis CT 11/13/19 11:52 IMPRESSION: Stable examination. Electronically Signed: Demetrius rBandon, at 13:20 EDT , Service support , Current Medications Acetaminophen (Tylenol) 650 mg PO Q6H PRN PRN PRN Reason: Pain Score 1-10/Temp > 100.7 F Al Hydroxide/Mg Hydroxide (Mylanta Ii) 30 ml PO Q6H PRN PRN PRN Reason: Gastric Burning Amitriptyline HCl (Elavil) 50 mg PO QHS PRN PRN PRN Reason: SLEEP Famotidine (Pepcid) 20 mg PO BID [facility] Last Admin: 11/15/19 09:26 Dose: 20 mg Documented by: Guaifenesin (Robitussin) 20 ml PO Q4H PRN PRN PRN Reason: COUGH Hydralazine HCl (Apresoline Iv) 10 mg IV Q4H PRN PRN PRN Reason: SBP > 160 Hydromorphone HCl (Dilaudid Inj) 1 mg IV Q4H PRN PRN PRN Reason: Pain Score 6-10/10 Last Admin: 11/15/19 13:32 Dose: 1 mg Documented by: Piperacillin Sod/Tazobactam (Sod 3.375 gm/ Sodium Chloride) 50 mls @ 12.5 mls/hr IV Q8 [facility] Last Admin: 11/15/19 13:41 Dose: 12.5 mls/hr Documented by: Vancomycin IV Pharmacy to Dose (1 ea/ Sodium Chloride) 500 mls @ 250 mls/hr IV X1 PRN; Protocol PRN Reason: Rx to Dose Sodium Chloride () 250 mls @ 15 mls/hr IV .[id number] PRN PRN Reason: Saline Flush Sodium Chloride () 250 mls @ 15 mls/hr IV .[id number] PRN PRN Reason: Additional IVPB Infusion Vancomycin HCl 1,500 mg/ (Sodium Chloride) 530 mls @ 250 mls/hr IV Q8H [facility] Last Infusion: 11/15/19 11:30 Dose: Infused Documented by: Lactobacillus Acidophilus (Acidophilus) 1 tablet PO BID [facility] Last Admin: 11/15/19 09:25 Dose: 1 tablet Documented by: Lisinopril (Zestril) 40 mg PO BID [facility] Last Admin: 11/15/19 09:25 Dose: 40 mg Documented by: Magnesium Hydroxide (Milk Of Magnesia) 30 ml PO DAILY PRN PRN PRN Reason: Constipation Ondansetron HCl (Zofran) 4 mg IV Q8H PRN PRN PRN Reason: NAUSEA/VOMITING Oxycodone HCl (Oxyir) 10 mg PO Q4H PRN PRN PRN Reason: Pain Score 4-5/10 Last Admin: 11/15/19 12:23 Dose: 10 mg Documented by: Prochlorperazine Edisylate (Compazine Iv) 5 mg IV Q4H PRN PRN PRN Reason: Breakthrough nausea/vomiting Psyllium Hydrophilic Mucilloid (Metamucil) 1 packet PO DAILY PRN PRN PRN Reason: Constipation Senna/Docusate Sodium (Senokot-S, Catrachita-Colace) 2 tablet PO BID PRN PRN PRN Reason: Constipation Sodium Chloride () 10 - 40 ml IV UD PRN PRN Reason: SALINE FLUSH Last Admin: 11/15/19 13:33 Dose: 10 ml Documented by: Tamsulosin HCl (Flomax) 0.4 mg PO DAILY PRN PRN Reason: kidney stones Temazepam (Restoril) 15 mg PO QHS PRN PRN PRN Reason: INSOMNIA Throat Lozenges (Cepacol Sore Throat Lozenge) 1 lozenge MUCOUS MEM Q2H PRN PRN PRN Reason: SORE THROAT Medical Necessity - Tobacco Use Smoking Status: Never smoker Tobacco Use: Non-smoker Assessment/Plan All Active Problems (Last Reviewed 10/25/19 @ 11:[address] Lissette Nolasco MD) Sepsis (Acute) Cellulitis of labia majora (Acute) Fever (Acute) Cellulitis of abdominal wall (Acute) 1. Sepsis due to cellulitis of the labia majora and abdominal panniculitis * On IV vancomycin and Zosyn. * BC has trended down to 7.5 from 14 on admission. * wound cultures grew Staph aureus, Strep grp A and gram positive roni. anaerobic culture pending. blood cultures negative after 48 hours. * on IV vancomycin and zosyn * plastic surgery on board * * * 2. Iron deficiency anemia: * hb is down to 7 today. wbc is 6.6, and platelets are 331 * has iron deficiency anemia * will transfuse one unit of PRBC * Iron panel showed iron saturation of 1.8 with iron of 6 and TIBC of 335 as well as ferritin of 48. * start on oral iron supplements; check stool for occult blood * * 3. Hypertension: On lisinopril. IV hydralazine PRN. 4. Hypokalemia: resolved 4. Elevated liver enzymes: AST and ALT as well as ALP were elevated on admission but are trending down. Will monitor. 6. Obesity: Status post gastric bypass surgery. Stable. Diet and lifestyle changes encouraged. DVT Prophylaxis: SCDs. no anticoagulation due to anemia Inpatient E&M: [id number] [facility] L3
[2019-11-15] MEDS: Ferrous Sulfate 325 MG Tablet PO (16:26)
--- NOTE | 2019-11-15 16:54 | PCM.PN.SRG ---
Patient Problems: Active and Suspected Problems (Last Reviewed 10/25/19 @ 11:[address] Lissette Nolasco MD) Sepsis (Acute) Subjective: Patient is upset because she is not going home today. She is very emotional. - Physical Exam Vitals/I&O's: Vital Signs Temp Pulse Resp BP Pulse Ox 98.9 F 70 18 138/70 H 100 11/15/19 16:39 11/15/19 16:39 11/15/19 16:39 11/15/19 16:39 11/15/19 16:39 Oxygen Delivery Method Room Air Weight: 213 lb 10.047 oz Body Mass Index (BMI) 34.4 Intake and Output for Last 24 Hours 11/13/19 11/14/19 11/15/19 23:59 23:59 23:59 Intake Total 2655.00 / 2655.00 2711.59 / 2711.59 2248.88 / 2248.88 Balance 2655.00 / 2655.00 2711.59 / 2711.59 2248.88 / 2248.88 General: Alert, Oriented x3 HEENT: Atraumatic Oral: Moist Mucosa Lungs: Normal air movement Cardiovascular: Regular rate Abdomen: Soft, Obese, Tender - Lower abdominal pannus is tender to palpation. Extremities: Capillary Refill Less than 3 Seconds Skin: Ulcer/ Wound - Lower abdomen/pubic area ulcer is covered with dressing. Skin redness of pannus has resolved. Vulva remains tender and swollen, redness is starting to resolve. Musculoskeletal: No Tenderness to Palpation of Joints or Extremities Neurological: Cranial nerves II-XII grossly intact Psych/Mental Status: Normal Affect - She is very tearful today because she wants to go home so she can go back to work. Microbiology Past 72 Hours 11/13/19 12:35 Blood Culture (Wb) - Anticubital Left Blood Culture - Preliminary No growth in 48 hours. 11/13/19 12:20 Blood Culture (Wb) - Right Wrist Blood Culture - Preliminary No growth in 48 hours. 11/13/19 14:20 Wound - Abdominal Gram Stain - Final 11/13/19 14:20 Wound - Abdominal Wound Culture - Preliminary Staphylococcus aureus Streptococcus group A Gram positive roni 11/13/19 14:20 Wound - Abdominal Anaerobic Culture - Preliminary Checking for anaerobes, further studies to follow. Laboratory Results 11/15/19 06:22: WBC 6.6, RBC 3.06 L, Hgb 7.0 L, Hct 23.8 L, MCV 77.8 L, MCH 22.9 L, MCHC 29.4 L, RDW Std Deviation 53.7 H, RDW Coeff of Andrez 19.5 H, Plt Count 331, MPV 10.5, Immature Gran % (Auto) 0.300, Neut % (Auto) 70.5 H, Lymph % (Auto) 15.9 L, [place] % (Auto) 7.4, Eos % (Auto) 5.3 H, Baso % (Auto) 0.6, Absolute Neuts (auto) 4.7, Absolute Lymphs (auto) 1.05, Nucleated RBC % 0 11/15/19 06:22: Sodium 140, Potassium 3.5, Chloride 109 H, Carbon Dioxide 26.0, Anion Gap 5, BUN 7, Creatinine 0.37 L, Estim Creat Clear Calc 202.45, Est GFR (MDRD) Af Amer 256, Est GFR (MDRD) Non-Af 211, BUN/Creatinine Ratio 18.8, Glucose 83, Calcium 8.0 L, Prealbumin 7.4 L 11/15/19 15:35: Blood Type Pending, Antibody Screen Pending, Crossmatch See Detail Current Medications Acetaminophen (Tylenol) 650 mg PO Q6H PRN PRN PRN Reason: Pain Score 1-10/Temp > 100.7 F Al Hydroxide/Mg Hydroxide (Mylanta Ii) 30 ml PO Q6H PRN PRN PRN Reason: Gastric Burning Amitriptyline HCl (Elavil) 50 mg PO QHS PRN PRN PRN Reason: SLEEP Famotidine (Pepcid) 20 mg PO BID [facility] Last Admin: 11/15/19 09:26 Dose: 20 mg Documented by: Ferrous Sulfate (Ferrous Sulfate) 325 mg PO TIDCM [facility] Last Admin: 11/15/19 16:26 Dose: 325 mg Documented by: Guaifenesin (Robitussin) 20 ml PO Q4H PRN PRN PRN Reason: COUGH Hydralazine HCl (Apresoline Iv) 10 mg IV Q4H PRN PRN PRN Reason: SBP > 160 Hydromorphone HCl (Dilaudid Inj) 1 mg IV Q4H PRN PRN PRN Reason: Pain Score 6-10/10 Last Admin: 11/15/19 13:32 Dose: 1 mg Documented by: Piperacillin Sod/Tazobactam (Sod 3.375 gm/ Sodium Chloride) 50 mls @ 12.5 mls/hr IV Q8 [facility] Last Infusion: 11/15/19 16:26 Dose: 0 mls/hr Documented by: Vancomycin IV Pharmacy to Dose (1 ea/ Sodium Chloride) 500 mls @ 250 mls/hr IV X1 PRN; Protocol PRN Reason: Rx to Dose Sodium Chloride () 250 mls @ 15 mls/hr IV .[id number] PRN PRN Reason: Saline Flush Sodium Chloride () 250 mls @ 15 mls/hr IV .[id number] PRN PRN Reason: Additional IVPB Infusion Vancomycin HCl 1,500 mg/ (Sodium Chloride) 530 mls @ 250 mls/hr IV Q8H [facility] Last Admin: 11/15/19 16:22 Dose: 250 mls/hr Documented by: Lactobacillus Acidophilus (Acidophilus) 1 tablet PO BID [facility] Last Admin: 11/15/19 09:25 Dose: 1 tablet Documented by: Lisinopril (Zestril) 40 mg PO BID [facility] Last Admin: 11/15/19 09:25 Dose: 40 mg Documented by: Magnesium Hydroxide (Milk Of Magnesia) 30 ml PO DAILY PRN PRN PRN Reason: Constipation Ondansetron HCl (Zofran) 4 mg IV Q8H PRN PRN PRN Reason: NAUSEA/VOMITING Oxycodone HCl (Oxyir) 10 mg PO Q4H PRN PRN PRN Reason: Pain Score 4-5/10 Last Admin: 11/15/19 16:34 Dose: 10 mg Documented by: Prochlorperazine Edisylate (Compazine Iv) 5 mg IV Q4H PRN PRN PRN Reason: Breakthrough nausea/vomiting Psyllium Hydrophilic Mucilloid (Metamucil) 1 packet PO DAILY PRN PRN PRN Reason: Constipation Senna/Docusate Sodium (Senokot-S, Catrachita-Colace) 2 tablet PO BID PRN PRN PRN Reason: Constipation Sodium Chloride () 10 - 40 ml IV UD PRN PRN Reason: SALINE FLUSH Last Admin: 11/15/19 13:33 Dose: 10 ml Documented by: Tamsulosin HCl (Flomax) 0.4 mg PO DAILY PRN PRN Reason: kidney stones Temazepam (Restoril) 15 mg PO QHS PRN PRN PRN Reason: INSOMNIA Throat Lozenges (Cepacol Sore Throat Lozenge) 1 lozenge MUCOUS MEM Q2H PRN PRN PRN Reason: SORE THROAT Medical Necessity - Tobacco Use Smoking Status: Never smoker Tobacco Use: Non-smoker Assessment/Plan All Active Problems (Last Reviewed 10/25/19 @ 11:[address] Lissette Nolasco MD) Sepsis (Acute) Cellulitis of labia majora (Acute) Fever (Acute) Cellulitis of abdominal wall (Acute) 1. Nonhealing ulcer abdominal wall and vulva involving the mons pubis with surrounding cellulitis. 2. 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 3. 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 Continue Zosyn and Vancomycin. Will order PICC line placement. The have been issues maintaining good IV access. Discussion with sending her home on IV antibiotics. Wound culture shows preliminary MSSA. Continue Silver dressing changes to the nonhealing ulcer abdominal wall and vulva involving the mons pubis. Cellulitis is starting to resolve. The vulva area remains swollen, firm and tender to palpation. Will continue to observe closely. If the cellulitis persists despite IV antibiotics or if the fever persists, then she will need operative intervention with incision and drainage and excisional debridement abdominal wall tissue. She has had necrotizing soft tissue infections in the past. If surgery is done, the wound will be left open and postop wound care started with Dakin's dressing changes. She has tried the VAC in the past and had trouble tolerating it. Anticipate increased metabolic demands from the ulcer and the infection. Prealbumin 7.4 today. Encourage nutritional supplementation with protein to help the healing process. Patient was informed of the risks and complications of the procedure including alternatives to surgery. These were discussed with the patient personally. Patient voices understanding and wishes to proceed with the current plan of IV antibiotics and close observation. Patient understands that surgery may be necessary. Hgb 7.0, she is going to receive a unit of blood today, medicine is managing. After discharge, followup at the [facility] Center. Inpatient E&M: [id number] [facility] L1
[2019-11-16 00:27] VITALS: BP 138/73; PULSE 80; RESP 16; TEMP 36.8; O2SAT 98
[2019-11-16] MEDS: oxyCODONE 5 MG Tablet 10 MG PO ×2 (00:35→08:20)
[2019-11-16 01:26] LABS: Vancomycin, Trough Level 13.6 ug/mL (5.0-15.0)
[2019-11-16 02:20] VITALS: BP 151/72; PULSE 81; RESP 16; TEMP 36.7; O2SAT 99
--- NOTE | 2019-11-16 03:50 | PCM.RX.CS ---
Consult Pharmacy has been consulted to manage selected antiobiotic: Vancomycin Type of Consult: Follow-up Suspected Infection: Sepsis Labs: Sodium 140 mmol/L (136-145) 11/15/19 06:22 Potassium 3.5 mmol/L (3.5-5.1) 11/15/19 06:22 Chloride 109 mmol/L (98-107) H 11/15/19 06:22 Carbon Dioxide 26.0 mmol/L (21.0-32.0) 11/15/19 06:22 Anion Gap 5 (5-15) 11/15/19 06:22 BUN 7 mg/dL (7-18) 11/15/19 06:22 Creatinine 0.37 mg/dL (0.55-1.02) L 11/15/19 06:22 Est GFR (MDRD) Af Amer 256 mL/min (>60) 11/15/19 06:22 Est GFR (MDRD) Non-Af 211 mL/min (>60) 11/15/19 06:22 BUN/Creatinine Ratio 18.8 RATIO (10-20) 11/15/19 06:22 Glucose 83 mg/dL (74-106) 11/15/19 06:22 Vancomycin Trough 13.6 ug/mL (5.0-15.0) 11/16/19 01:00 Microbiology: Microbiology 11/13/19 12:35 Blood Culture (Wb) - Anticubital Left Blood Culture - Preliminary No growth in 48 hours. 11/13/19 12:20 Blood Culture (Wb) - Right Wrist Blood Culture - Preliminary No growth in 48 hours. 11/13/19 14:20 Wound - Abdominal Gram Stain - Final 11/13/19 14:20 Wound - Abdominal Wound Culture - Preliminary Staphylococcus aureus Streptococcus group A Gram positive roni 11/13/19 14:20 Wound - Abdominal Anaerobic Culture - Preliminary Checking for anaerobes, further studies to follow. Goal Trough: 15-20 mcg/mL Pharmacy Plan for Drug Dosing: Pharmacy Service will continue to monitor and adjust dosing as required. TROUGH 13.6 INCREASE TO 1750 Q8H Follow-Up Labs: Trough Vancomycin Labs to be done on [date and time ordered]: 11/15 @ 3423
[2019-11-16] MEDS: HYDROmorphone 1 MG/ML Syringe IV ×2 (06:14→10:14)
[2019-11-16 06:41] LABS: Absolute Lymphocyte Count 1.22 X10^3/uL (0.83-4.51); Absolute Neutrophil Count 3.1 X10^3/uL (2.0-7.7); Basophil# 0.03 X10^3/uL; Basophil% 0.6 % (0-1); Eosinophil# 0.34 X10^3/uL; Eosinophils% 6.7 % (0-5); Hematocrit 25.8 % (37-47); Hemoglobin 8.1 g/dL (12.0-15.0); Lymphocyte # 1.22 X10^3/ul (4.0); Lymphocyte % 23.9 % (19-41); Mean Corp Hgb Conc 31.4 g/dL (32-36); Mean Corpuscular Volume 76.3 fL (81-99); Mean Platelet Vol. 10.6 fl (6.2-12.0); Monocyte# 0.43 X10^3/uL; Monocyte% 8.4 % (0-10); NRBC Flagged by Analyzer 0 % (0-5); Neutrophil # 3.07 X10^3/uL (2.7-7.7); POSITIVE COUNT YES; Platelet Count 222 K/mm3 (150-450); RBC Distribution Width CV 19.2 % (11.6-14.6); RBC Distribution Width SD 51.6 fl (35.1-43.9); Red Blood Count 3.38 M/mm3 (4.2-5.4); White Blood Count 5.1 K/mm3 (4.4-11.0)
[2019-11-16 07:07] LABS: ALB/GLOB Ratio 0.5 RATIO (0.9-2.4); AST(SGOT) 15 U/L (15-37); Alanine Aminotransfer ALT/SGPT 44 U/L (13-56); Albumin, Serum 1.9 g/dL (3.2-5.0); Alkaline Phosphatase 189 U/L (45-117); Anion Gap 7 (5-15); BUN 6 mg/dL (7-18); BUN/Creat Ratio 15.3 RATIO (10-20); Calcium,Total 7.8 mg/dL (8.5-10.1); Chloride 109 mmol/L (98-107); Creatinine, Serum 0.39 mg/dL (0.55-1.02); EST Glomerular Filtration Rate 198 mL/min (>60); Est Glom Filt Rate - Afr Amer 240 mL/min (>60); Estimated Creatinine Clearance 192.07 ml/min; Glucose 78 mg/dL (74-106); Potassium 3.6 mmol/L (3.5-5.1); Protein, Total 5.9 g/dL (6.4-8.2); Sodium Level 139 mmol/L (136-145)
[2019-11-16] MEDS: Ferrous Sulfate 325 MG Tablet PO (08:13)
[2019-11-16] MEDS: Famotidine 20 MG Tablet PO (08:13)
[2019-11-16] MEDS: Lisinopril 40 MG Tablet PO (08:14)
[2019-11-16 08:15] VITALS: BP 156/88; PULSE 86; RESP 16; TEMP 36.7; O2SAT 100
[2019-11-16] MEDS: Acetaminophen 325 MG Tablet 650 MG PO (08:20)
--- NOTE | 2019-11-16 11:14 | PCM.DC ---
- Discharge Diagnoses Current Active Problems: Current Active and Chronic Problems (Last Reviewed 10/25/19 @ 11:[address] Lissette Nolasco MD) Sepsis (Acute) Anemia (Chronic) GERD (gastroesophageal reflux disease) (Chronic) History of gastric ulcer (Chronic) HLD (hyperlipidemia) (Chronic) You will use the following diet at home:: Cardiac Your food should be the consistency of: Regular Your liquids should be the consistency of: Regular/Thin Discharge Activity: Return to Normal Activity Weight Bearing Status: Weight bearing as tolerated Call your doctor if you observe: Fever of 101 or Higher, Coldness, Increased Pain Instructions: ED Cellulitis, Anemia Additional Instructions: follow up at Wound care center Allergies/Adverse Reactions: Allergies methocarbamol Allergy (Verified 11/13/19 11:23) Chest tightness gabapentin Adverse Reaction (Verified 11/13/19 11:23) abnormal gait ketorolac tromethamine [From Toradol] Adverse Reaction (Verified 11/13/19 11:23) Upset Stomach NSAIDS (Non-Steroidal Anti-Inflamma Adverse Reaction (Verified 11/13/19 11:23) gastric bipass not supposed to take tramadol Adverse Reaction (Verified 11/13/19 11:23) Upset Stomach Medications to take at Discharge Amitriptyline HCl [Elavil] 50 mg PO QHS PRN 04/30/17 Ergocalciferol [Vitamin D] 50,000 unit PO TUTH 04/30/17 Etonogestrel [Nexplanon (Bkc)] 68 mg SQ UD 04/30/17 Tamsulosin HCl [Flomax] 0.4 mg PO DAILY PRN 04/30/17 Lisinopril [Zestril] 40 mg PO BID 05/30/17 Cyanocobalamin [Vitamin B12] 1,000 mcg IM Q30D 07/06/17 Ondansetron [Zofran Odt] 4 mg PO 4X/DAY PRN PRN #30 tab 03/16/19 Lactobacillus Acidophilus [Acidophilus] 1 tab PO BID #12 tab 10/27/19 Clindamycin HCl 300 mg PO 4X/DAY 20 Days #80 capsule 11/16/19 Ferrous Sulfate 325 mg PO TIDCM #90 tablet 11/16/19 Hydrocodone/Acetaminophen [[place] 5-325 Tablet] 1 ea PO 4X/DAY PRN PRN 2 Days #12 tablet 11/16/19 The following prescriptions were given: Clindamycin HCl 300 mg PO 4X/DAY 20 Days #80 capsule Ferrous Sulfate 325 mg PO TIDCM #90 tablet Hydrocodone/Acetaminophen [[place] 5-325 Tablet] 1 ea PO 4X/DAY PRN PRN 2 Days #12 tablet PRN Reason: Pain Or Fever Primary Care Physician: Bethel Jauregui III, MD [Primary Care Provider] - Please follow up with your Primary Care Physician in: 1-2 weeks Test Results: Test results from this visit will be discussed in further detail at your follow-up appointment, if applicable. Please Follow Up With: Gigi Mendieta MD When: 2-3 weeks Proposed Discharge Date: 11/16/19
--- NOTE | 2019-11-16 11:17 | PCM.DC.SUM ---
Discharge Date and Diagnosis Date of Admission: 11/13/19 Date of Discharge: 11/16/19 - Primary Discharge Diagnosis Acute Problems: Active Problems (Last Reviewed 10/25/19 @ 11:[address] Lissette Nolasco MD) Sepsis (Acute) cellulitis of the abdominal wall and labia majora - Secondary Discharge Diagnosis Chronic Problems: Chronic Problems (Last Reviewed 10/25/19 @ 11:[address] 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 Electronically Signed: Demetrius Brandon, at 13:20 EDT , Service support , Consultations 11/13/19 15:46 Consult: Onc/Wound/senior digital designer Routine Comment: Plastic surgery- Dr Mendieta Operations: None, - - 03/28/19 - Surgical preparation lower anterior abdominal wall with incision and drainage and excisional debridement skin, subcutaneous tissue, and fascia necrotizing soft tissue infection abscess (660 cm2). Procedures: None Summary of Care Provided: Patient is a 34-year-old female with an extensive past medical history as outlined who was admitted through the ED on 11/13/2019 with a complaint of edema in the lower abdominal wall area as well as labial edema, redness, fever and chills. Patient had had a panniculectomy after she had gastric bypass surgery about a year ago. She had a chronic suprapubic ulcer and had been following up with the wound care center as well as chronic bilateral labial edema. She had been admitted and discharged on 11/16/2019 for sepsis due to acute lower abdominal wall cellulitis she was discharged with 10 days of oral clindamycin. She completed course and subsequently started having fever and chills and worsening lower periwound redness as well as increased tenderness to palpation and increased warmth. Her labial sites are also increased so she came into the ED. In the ED, she was vitally stable and WBC was 14. CT of the abdomen and pelvis showed no acute findings. She was admitted and managed for sepsis due to cellulitis of the lower abdomen and labia majora and started on IV vancomycin and Zosyn. Plastic surgery and wound care were also consulted. Blood cultures were negative after 48 hours and wound cultures grew Staphylococcus aureus with Streptococcus group A and corynebacterium striated. Anaerobic cultures were negative. Patient responded to IV antibiotics and swelling and redness as well as tenderness improved. She had a PICC line inserted due to difficulty getting IV access. She was transfused with 1 unit of packed red blood cells as hemoglobin dropped significantly to 7. Iron panel showed iron deficiency anemia so she was started on oral iron supplementation. Patient was discharged home on 11/16/2019 with a prescription for p.o. clindamycin 300 mg every 6 hours for 20 days. She is to follow-up with plastic surgery and wound care and her primary care doctor. Per discussion with plastic surgery, patient is going to need a prolonged course of antibiotics and plastic surgery will review her after she completes the 20 days of oral antibiotics and she follows up with Dr. Mendieta on December 04, 2019. Decision will then be made as to how long she should continue having antibiotics for. Patient seen and examined. She had no complaints. Pain was well controlled. She was emotionally upset because she was going to have the PICC line pulled out after it had just been placed the day before. She was however understanding about the need to have it removed and she would do well on oral antibiotics. Review of symptoms otherwise negative. Labs and vitals reviewed. Home medication reviewed and reconciled. O/E: Vital Signs Temp Pulse Resp BP Pulse Ox 98.1 F 88 16 160/95 H 100 11/16/19 12:15 11/16/19 12:15 11/16/19 12:15 11/16/19 12:15 11/16/19 12:15 General: Alert, Oriented x3, Cooperative, No apparent distress HEENT: Atraumatic, PERRLA, EOMI, Normocephalic Oral: Moist Mucosa Neck: Supple, No JVD, Negative Carotid Bruits Lungs: Clear to auscultation, Normal air movement, No rhonchi, No wheeze Cardiovascular: Regular rate, Regular Rhythm, Normal S1, Normal S2, No murmurs Abdomen: Bowel Sounds Present, Soft, Non Tender Extremities: No edema, Capillary Refill Less than 3 Seconds Skin: - - has ulceration in the pannus of the abdomen, with swollen and erythematous labia majora, minimal tenderness or differential warmth Musculoskeletal: No Tenderness to Palpation of Joints or Extremities Lymphatic: No Cervical, Supraclavicular, or Inguinal Adenopathy Neurological: Cranial nerves II-XII grossly intact, Neuro grossly intact, Motor Exam 5/5 strength throughout Psych/Mental Status: Normal Affect, Appropriate, Alert and oriented to time, place, person, mood and affect Plan is for discharge home on p.o. clindamycin x20 days. Patient requested for pain medication but was not given because per [place] check, she had just gotten a prescription from her PCP on 11/10/2023 120 tablets of [place] 5 325 mg. She is follow-up with primary care doctor and plastic surgery. Was also discharged home with a prescription for p.o. oral iron supplementation. - Physical Exam Vitals/I&O's: Vital Signs Temp Pulse Resp BP Pulse Ox 98.1 F 86 16 156/88 H 100 11/16/19 08:15 11/16/19 08:15 11/16/19 08:15 11/16/19 08:15 11/16/19 08:15 Oxygen Delivery Method Room Air Weight: 213 lb 10.047 oz Body Mass Index (BMI) 34.4 Intake and Output for Last 24 Hours 11/14/19 11/15/19 11/16/19 23:59 23:59 23:59 Intake Total 2711.59 / 2711.59 3644.50 / 4044.50 2365 / 2365 Balance 2711.59 / 2711.59 3644.50 / 4044.50 2365 / 2365 Microbiology Past 72 Hours 11/13/19 14:20 Wound - Abdominal Gram Stain - Final 11/13/19 14:20 Wound - Abdominal Wound Culture - Final Staphylococcus aureus Streptococcus group A Corynebacterium striatum 11/13/19 14:20 Wound - Abdominal Anaerobic Culture - Final No anaerobic bacteria isolated. 11/13/19 12:35 Blood Culture (Wb) - Anticubital Left Blood Culture - Preliminary No growth in 48 hours. 11/13/19 12:20 Blood Culture (Wb) - Right Wrist Blood Culture - Preliminary No growth in 48 hours. Laboratory Results 11/15/19 15:35: Blood Type A NEGATIVE, Antibody Screen NEGATIVE, Crossmatch See Detail 11/16/19 01:00: Vancomycin Trough 13.6 11/16/19 06:00: WBC 5.1, RBC 3.38 L, Hgb 8.1 L, Hct 25.8 L, MCV 76.3 L, MCH 24.0 L, MCHC 31.4 L D, RDW Std Deviation 51.6 H, RDW Coeff of Andrez 19.2 H, Plt Count 222, MPV 10.6, Immature Gran % (Auto) 0.400, Neut % (Auto) 60.0, Lymph % (Auto) 23.9, [place] % (Auto) 8.4, Eos % (Auto) 6.7 H, Baso % (Auto) 0.6, Absolute Neuts (auto) 3.1, Absolute Lymphs (auto) 1.22, Nucleated RBC % 0 11/16/19 06:00: Sodium 139, Potassium 3.6, Chloride 109 H, Carbon Dioxide 23.0, Anion Gap 7, BUN 6 L, Creatinine 0.39 L, Estim Creat Clear Calc 192.07, Est GFR (MDRD) Af Amer 240, Est GFR (MDRD) Non-Af 198, BUN/Creatinine Ratio 15.3, Glucose 78, Calcium 7.8 L, Total Bilirubin 0.20, AST 15, ALT 44, Alkaline Phosphatase 189 H, Total Protein 5.9 L, Albumin 1.9 L, Globulin 4.0, Albumin/Globulin Ratio 0.5 L Current Medications Acetaminophen (Tylenol) 650 mg PO Q6H PRN PRN PRN Reason: Pain Score 1-10/Temp > 100.7 F Last Admin: 11/16/19 08:20 Dose: 650 mg Documented by: Al Hydroxide/Mg Hydroxide (Mylanta Ii) 30 ml PO Q6H PRN PRN PRN Reason: Gastric Burning Amitriptyline HCl (Elavil) 50 mg PO QHS PRN PRN PRN Reason: SLEEP Famotidine (Pepcid) 20 mg PO BID [facility] Last Admin: 11/16/19 08:13 Dose: 20 mg Documented by: Ferrous Sulfate (Ferrous Sulfate) 325 mg PO TIDCM [facility] Last Admin: 11/16/19 08:13 Dose: 325 mg Documented by: Guaifenesin (Robitussin) 20 ml PO Q4H PRN PRN PRN Reason: COUGH Hydralazine HCl (Apresoline Iv) 10 mg IV Q4H PRN PRN PRN Reason: SBP > 160 Hydromorphone HCl (Dilaudid Inj) 1 mg IV Q4H PRN PRN PRN Reason: Pain Score 6-10/10 Last Admin: 11/16/19 10:14 Dose: 1 mg Documented by: Piperacillin Sod/Tazobactam (Sod 3.375 gm/ Sodium Chloride) 50 mls @ 12.5 mls/hr IV Q8 [facility] Last Infusion: 11/16/19 10:14 Dose: Infused Documented by: Vancomycin IV Pharmacy to Dose (1 ea/ Sodium Chloride) 500 mls @ 250 mls/hr IV X1 PRN; Protocol PRN Reason: Rx to Dose Sodium Chloride () 250 mls @ 15 mls/hr IV .[id number] PRN PRN Reason: Saline Flush Sodium Chloride () 250 mls @ 15 mls/hr IV .[id number] PRN PRN Reason: Additional IVPB Infusion Vancomycin HCl 1,750 mg/ (Sodium Chloride) 535 mls @ 250 mls/hr IV Q8H [facility] Last Infusion: 11/16/19 10:29 Dose: Infused Documented by: Lactobacillus Acidophilus (Acidophilus) 1 tablet PO BID [facility] Last Admin: 11/16/19 08:12 Dose: 1 tablet Documented by: Lisinopril (Zestril) 40 mg PO BID [facility] Last Admin: 11/16/19 08:14 Dose: 40 mg Documented by: Magnesium Hydroxide (Milk Of Magnesia) 30 ml PO DAILY PRN PRN PRN Reason: Constipation Ondansetron HCl (Zofran) 4 mg IV Q8H PRN PRN PRN Reason: NAUSEA/VOMITING Oxycodone HCl (Oxyir) 10 mg PO Q4H PRN PRN PRN Reason: Pain Score 4-5/10 Last Admin: 11/16/19 08:20 Dose: 10 mg Documented by: Prochlorperazine Edisylate (Compazine Iv) 5 mg IV Q4H PRN PRN PRN Reason: Breakthrough nausea/vomiting Psyllium Hydrophilic Mucilloid (Metamucil) 1 packet PO DAILY PRN PRN PRN Reason: Constipation Senna/Docusate Sodium (Senokot-S, Catrachita-Colace) 2 tablet PO BID PRN PRN PRN Reason: Constipation Sodium Chloride () 10 - 40 ml IV UD PRN PRN Reason: SALINE FLUSH Last Admin: 11/15/19 18:54 Dose: 10 ml Documented by: Tamsulosin HCl (Flomax) 0.4 mg PO DAILY PRN PRN Reason: kidney stones Temazepam (Restoril) 15 mg PO QHS PRN PRN PRN Reason: INSOMNIA Throat Lozenges (Cepacol Sore Throat Lozenge) 1 lozenge MUCOUS MEM Q2H PRN PRN PRN Reason: SORE THROAT Discharge Diet: Low fat/ Low Cholesterol Discharge Activity: Return to Normal Activity Weight Bearing Status: Weight bearing as tolerated Call your doctor if you observe: Fever of 101 or Higher, Coldness, Increased Pain Home Medications: Medications to take at Discharge Amitriptyline HCl [Elavil] 50 mg PO QHS PRN 04/30/17 Ergocalciferol [Vitamin D] 50,000 unit PO TUTH 04/30/17 Etonogestrel [Nexplanon (Bkc)] 68 mg SQ UD 04/30/17 Tamsulosin HCl [Flomax] 0.4 mg PO DAILY PRN 04/30/17 Lisinopril [Zestril] 40 mg PO BID 05/30/17 Cyanocobalamin [Vitamin B12] 1,000 mcg IM Q30D 07/06/17 Ondansetron [Zofran Odt] 4 mg PO 4X/DAY PRN PRN #30 tab 03/16/19 Lactobacillus Acidophilus [Acidophilus] 1 tab PO BID #12 tab 10/27/19 Clindamycin HCl 300 mg PO 4X/DAY 20 Days #80 cap 11/16/19 Ferrous Sulfate 325 mg PO TIDCM #90 tab 11/16/19 Following Prescriptions Were Given to Patient: Clindamycin HCl 300 mg PO 4X/DAY 20 Days #80 cap Transmission Status: Received by [facility] Ferrous Sulfate 325 mg PO TIDCM #90 tab Transmission Status: Received by [facility] Primary Care Physician: Bethel Jauregui III, MD [Primary Care Provider] - Please follow up with your Primary Care Physician in: 1-2 weeks Please Follow Up With: Gigi Mendieta MD When: 2-3 weeks Patient Instructions: Anemia, ED Cellulitis Disposition: Home Minutes spent on discharge:: 40 Patient Condition:: Stable Medical Necessity - Tobacco Use Smoking Status: Never smoker Tobacco Use: Non-smoker Meaningful Use Info Meaningful Use Diagnoses (Choose all that apply): None applicable Inpatient E&M: 62779 Disch Hosp
--- NOTE | 2019-11-16 12:00 | PCM.PN.SRG ---
Patient Problems: Active and Suspected Problems (Last Reviewed 10/25/19 @ 11:[address] Lissette Nolasco MD) Sepsis (Acute) Subjective: Patient doing well. She is ready to go home. - Physical Exam Vitals/I&O's: Vital Signs Temp Pulse Resp BP Pulse Ox 98.1 F 86 16 156/88 H 100 11/16/19 08:15 11/16/19 08:15 11/16/19 08:15 11/16/19 08:15 11/16/19 08:15 Oxygen Delivery Method Room Air Weight: 213 lb 10.047 oz Body Mass Index (BMI) 34.4 Intake and Output for Last 24 Hours 11/14/19 11/15/19 11/16/19 23:59 23:59 23:59 Intake Total 2711.59 / 2711.59 3644.50 / 4044.50 2365 / 2365 Balance 2711.59 / 2711.59 3644.50 / 4044.50 2365 / 2365 General: Alert, Oriented x3, Cooperative HEENT: Atraumatic Oral: Moist Mucosa Lungs: Normal air movement Cardiovascular: Regular rate Abdomen: Soft, Non Tender Extremities: Capillary Refill Less than 3 Seconds Skin: Ulcer/ Wound - Lower mid abdominal/pubic area ulcer. Redness has resolved. Vulva swelling mildly improved. Musculoskeletal: No Tenderness to Palpation of Joints or Extremities Neurological: Cranial nerves II-XII grossly intact Psych/Mental Status: Normal Affect Microbiology Past 72 Hours 11/13/19 14:20 Wound - Abdominal Gram Stain - Final 11/13/19 14:20 Wound - Abdominal Wound Culture - Final Staphylococcus aureus Streptococcus group A Corynebacterium striatum 11/13/19 14:20 Wound - Abdominal Anaerobic Culture - Final No anaerobic bacteria isolated. 11/13/19 12:35 Blood Culture (Wb) - Anticubital Left Blood Culture - Preliminary No growth in 48 hours. 11/13/19 12:20 Blood Culture (Wb) - Right Wrist Blood Culture - Preliminary No growth in 48 hours. Laboratory Results 11/15/19 15:35: Blood Type A NEGATIVE, Antibody Screen NEGATIVE, Crossmatch See Detail 11/16/19 01:00: Vancomycin Trough 13.6 11/16/19 06:00: WBC 5.1, RBC 3.38 L, Hgb 8.1 L, Hct 25.8 L, MCV 76.3 L, MCH 24.0 L, MCHC 31.4 L D, RDW Std Deviation 51.6 H, RDW Coeff of Andrez 19.2 H, Plt Count 222, MPV 10.6, Immature Gran % (Auto) 0.400, Neut % (Auto) 60.0, Lymph % (Auto) 23.9, [place] % (Auto) 8.4, Eos % (Auto) 6.7 H, Baso % (Auto) 0.6, Absolute Neuts (auto) 3.1, Absolute Lymphs (auto) 1.22, Nucleated RBC % 0 11/16/19 06:00: Sodium 139, Potassium 3.6, Chloride 109 H, Carbon Dioxide 23.0, Anion Gap 7, BUN 6 L, Creatinine 0.39 L, Estim Creat Clear Calc 192.07, Est GFR (MDRD) Af Amer 240, Est GFR (MDRD) Non-Af 198, BUN/Creatinine Ratio 15.3, Glucose 78, Calcium 7.8 L, Total Bilirubin 0.20, AST 15, ALT 44, Alkaline Phosphatase 189 H, Total Protein 5.9 L, Albumin 1.9 L, Globulin 4.0, Albumin/Globulin Ratio 0.5 L Current Medications Acetaminophen (Tylenol) 650 mg PO Q6H PRN PRN PRN Reason: Pain Score 1-10/Temp > 100.7 F Last Admin: 11/16/19 08:20 Dose: 650 mg Documented by: Al Hydroxide/Mg Hydroxide (Mylanta Ii) 30 ml PO Q6H PRN PRN PRN Reason: Gastric Burning Amitriptyline HCl (Elavil) 50 mg PO QHS PRN PRN PRN Reason: SLEEP Famotidine (Pepcid) 20 mg PO BID [facility] Last Admin: 11/16/19 08:13 Dose: 20 mg Documented by: Ferrous Sulfate (Ferrous Sulfate) 325 mg PO TIDCM [facility] Last Admin: 11/16/19 08:13 Dose: 325 mg Documented by: Guaifenesin (Robitussin) 20 ml PO Q4H PRN PRN PRN Reason: COUGH Hydralazine HCl (Apresoline Iv) 10 mg IV Q4H PRN PRN PRN Reason: SBP > 160 Hydromorphone HCl (Dilaudid Inj) 1 mg IV Q4H PRN PRN PRN Reason: Pain Score 6-10/10 Last Admin: 11/16/19 10:14 Dose: 1 mg Documented by: Piperacillin Sod/Tazobactam (Sod 3.375 gm/ Sodium Chloride) 50 mls @ 12.5 mls/hr IV Q8 [facility] Last Infusion: 11/16/19 10:14 Dose: Infused Documented by: Vancomycin IV Pharmacy to Dose (1 ea/ Sodium Chloride) 500 mls @ 250 mls/hr IV X1 PRN; Protocol PRN Reason: Rx to Dose Sodium Chloride () 250 mls @ 15 mls/hr IV .[id number] PRN PRN Reason: Saline Flush Sodium Chloride () 250 mls @ 15 mls/hr IV .[id number] PRN PRN Reason: Additional IVPB Infusion Vancomycin HCl 1,750 mg/ (Sodium Chloride) 535 mls @ 250 mls/hr IV Q8H [facility] Last Infusion: 11/16/19 10:29 Dose: Infused Documented by: Lactobacillus Acidophilus (Acidophilus) 1 tablet PO BID [facility] Last Admin: 11/16/19 08:12 Dose: 1 tablet Documented by: Lisinopril (Zestril) 40 mg PO BID [facility] Last Admin: 11/16/19 08:14 Dose: 40 mg Documented by: Magnesium Hydroxide (Milk Of Magnesia) 30 ml PO DAILY PRN PRN PRN Reason: Constipation Ondansetron HCl (Zofran) 4 mg IV Q8H PRN PRN PRN Reason: NAUSEA/VOMITING Oxycodone HCl (Oxyir) 10 mg PO Q4H PRN PRN PRN Reason: Pain Score 4-5/10 Last Admin: 11/16/19 08:20 Dose: 10 mg Documented by: Prochlorperazine Edisylate (Compazine Iv) 5 mg IV Q4H PRN PRN PRN Reason: Breakthrough nausea/vomiting Psyllium Hydrophilic Mucilloid (Metamucil) 1 packet PO DAILY PRN PRN PRN Reason: Constipation Senna/Docusate Sodium (Senokot-S, Catrachita-Colace) 2 tablet PO BID PRN PRN PRN Reason: Constipation Sodium Chloride () 10 - 40 ml IV UD PRN PRN Reason: SALINE FLUSH Last Admin: 11/15/19 18:54 Dose: 10 ml Documented by: Tamsulosin HCl (Flomax) 0.4 mg PO DAILY PRN PRN Reason: kidney stones Temazepam (Restoril) 15 mg PO QHS PRN PRN PRN Reason: INSOMNIA Throat Lozenges (Cepacol Sore Throat Lozenge) 1 lozenge MUCOUS MEM Q2H PRN PRN PRN Reason: SORE THROAT Medical Necessity - Tobacco Use Smoking Status: Never smoker Tobacco Use: Non-smoker Assessment/Plan All Active Problems (Last Reviewed 10/25/19 @ 11:[address] Lissette Nolasco MD) Sepsis (Acute) Cellulitis of labia majora (Acute) Fever (Acute) Cellulitis of abdominal wall (Acute) 1. Nonhealing ulcer abdominal wall and vulva involving the mons pubis with surrounding cellulitis. 2. 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 3. 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 Plan is she is going home today. Wound culture shows Staphylococcus aureus, Streptococcus group A, Corynebacterium striatum. Medicine has decided to send her home on po Clindamycin. Encouraged her to take probiotic while on antibiotic. PICC line discontinued. Continue Silver dressing changes to the nonhealing ulcer abdominal wall and vulva involving the mons pubis. The vulva area remains swollen, firm and tender to palpation. Prealbumin 7.4 yesterday. Encourage nutritional supplementation with protein to help the healing process. Instructed patient to follow up with PCP for further evaluation and possible dietary consult. With patient's gastric bypass history, she has issues drinking large volumes and can not tolerate protein shakes. Patient was informed of the risks and complications of the procedure including alternatives to surgery. These were discussed with the patient personally. Hgb 8.1 today after she received a unit of blood yesterday. After discharge, followup [facility] on 12/04/19. Inpatient E&M: [id number] [facility] Hosp L1
[2019-11-16 12:15] VITALS: BP 160/95; PULSE 88; RESP 16; TEMP 36.7; O2SAT 100
--- NOTE | 2019-11-17 12:29 | CASEMGMT ---
RICARDO BECKFORD DC PHONE CALL DC DATE: 11/16/2019 DC DISPOSITION: Home DC DIAGNOSIS: Sepsis, Cellulitis of abd wall and labia majora LACE/STRATA: 02/21 F/U APPTS MADE PRIOR TO DC: yes PRESCRIPTIONS ACQUIRED BY PT: yes Intro role of CM to patient via phone. Patient called Dr. Mendieta's office to get work excuse faxed to her work. She has prescriptions, reviewed f/u appointments and no further questions. No care improvement suggestions were given. Aye GIFFORD RN ACM
== END 2019-11-16 12:22 | disposition home or self-care (01) | DRG 383 ==
LOC: ED 12:11 → MS3 14:05
PROVIDERS: Admitting Provider Family Medicine; Emergency Provider Emergency Medicine; PCP Family Medicine; Visit Provider Student in an Organized Health Care Education/Training Program
DX: L03.311 Cellulitis of abdominal wall (principal); M79.3 Panniculitis, unspecified; K21.9 Gastro-esophageal reflux disease without esophagitis; E78.5 Hyperlipidemia, unspecified; I89.0 Lymphedema, not elsewhere classified; G89.4 Chronic pain syndrome; E87.6 Hypokalemia; D50.9 Iron deficiency anemia, unspecified; E66.9 Obesity, unspecified; I10 Essential (primary) hypertension; L98.492 Non-pressure chronic ulcer of skin of other sites with fat layer exposed; Z87.11 Personal history of peptic ulcer disease; Z76.5 Malingerer [conscious simulation]; Z79.899 Other long term (current) drug therapy; Z68.35 Body mass index [BMI] 35.0-35.9, adult; Z80.0 Family history of malignant neoplasm of digestive organs; Z81.8 Family history of other mental and behavioral disorders; Z82.49 Family history of ischemic heart disease and other diseases of the circulatory system; Z83.2 Family history of diseases of the blood and blood-forming organs and certain disorders involving the immune mechanism; Z83.3 Family history of diabetes mellitus; Z87.442 Personal history of urinary calculi; Z90.49 Acquired absence of other specified parts of digestive tract; Z98.84 Bariatric surgery status; B96.5 Pseudomonas (aeruginosa) (mallei) (pseudomallei) as the cause of diseases classified elsewhere
CPT/HCPCS: 36415; 36569; 74177; 80048; 80053; 80202; 82728; 83540; 83550; 83605; 83735; 84134; 85025; 85610; 85730; 86850; 86900; 86901; 86920; 86922; 87040; 87070; 87075; 87077; 87186; 87205; 87640; 97802; 99213; 99251; 99285; J7030; J7040; J7050; P9016; Q9967; A4216; G0463

== ENCOUNTER 2019-11-29 17:02 | Inpatient (IN) | payer MEDICAID, SELFPAY ==
[2019-11-29] VITALS (10 sets, daily range): BP systolic 165–202; BP diastolic 74–121; PULSE 88–111; RESP 16–19; TEMP 37.1–37.7; O2SAT 97–100; BMI 33.9; BMI 33.0
[2019-11-29] MEDS: 0.9% Normal Saline 1,000 ML 1000 ML IV (17:30)
--- NOTE | 2019-11-29 17:31 | CT_ITS ---
STUDY: CT ABDOMEN AND PELVIS WITHOUT CONTRAST REASON FOR EXAM: Female, 34 years old. POST SURGICAL ABD WOUND W/ MULTIPLE INFECTIONS. FEVER. RADIATION DOSAGE (If Supplied By Facility): CTDIvol = ( 15.44 ) mGy, DLP = ( 1405.47 ) mGycm TECHNIQUE: Transaxial images were obtained from the dome of the diaphragm to the symphysis pubis without oral contrast, and without intravenous contrast. Sagittal and coronal images were reconstructed. Individualized dose optimization techniques were used for this CT. COMPARISON: CT of abdomen and pelvis dated November 13 2019 FINDINGS: The visualized lung bases are unremarkable. Normal liver. There are surgical clips in the gallbladder fossa consistent with a prior cholecystectomy. Normal spleen. Normal pancreas. Normal bilateral adrenal glands. Normal right kidney. Normal left kidney. No hydronephrosis. Stable gastric bypass related changes. Mild subcutaneous edema of the anterior abdominal wall down to the pelvic region unchanged from the prior study. No discrete circumscribed fluid collection is seen within the abdominal wall. No intra-abdominal free air or free fluid. No bowel obstruction. Normal small intestine. Minor diverticulosis of the distal transverse colon noted. The remaining colonic loops are unremarkable. The appendix is visualized and appears normal. Normal abdominal aorta. Normal inferior vena cava. Normal retroperitoneum. Normal urinary bladder. Unremarkable uterus and ovaries. Left ovarian dominant follicle reidentified of no clinical significance. No visualized hernias. There are diffuse degenerative changes of the visualized lumbar spine. CT/Abdomen/Pelvis W IV Cont ONLY IMPRESSION: 1. No demonstrated acute process of the abdomen and pelvis. No significant change from the prior study dated November 13, 2019. Electronically Signed: Vincenzo Mcguire MD at 19:11 EDT , Service support ,
--- NOTE | 2019-11-29 17:47 | ED.VISSUMM ---
- ER Visit Summary Date of Service: 11/29/19 Chief Complaint: Abdominal wall wound History of Present Illness: The patient is a 34 F with wound to her abdominal wall. She has had a previous panniculectomy per Dr. Mendieta complicated by wound infection. She was admitted to the hospital and discharged on November 14. States her symptoms are starting to return and worsen. She has increasing pain in her lower abdomen with redness. She is currently on clindamycin. She has been tested for COVID twice and has been negative. She had a temperature up to 101.7 at home. She took Tylenol prior to arrival. She complains of abdominal pain, nausea, vomiting. She states she called Dr. Mendieta's office and was advised to come to the ED for admission. Physical Examination: Vitals are stable. Temperature 99.1. Alert no acute distress. HEENT exam is unremarkable. Neck is supple. Lungs are clear and equal bilaterally. Heart is regular and tachycardic Abdomen is soft suprapubic abdominal wound, no drainage : Labial swelling without wound or erythema Extremities are unremarkable. Skin is warm and dry. No focal neurologic deficit. Remainder of exam is unremarkable. Emergency Department Course and Treatment: Blood cultures were sent. CBC shows white count 13.2, hemoglobin 10.5. Chemistries unremarkable other than creatinine 1.28. Urinalysis unremarkable. Lactic acid is normal. CT abdomen pelvis shows no demonstrated acute process of the abdomen and pelvis. No significant change from the prior study dated November 13, 2019. Discussed with Dr. Mendieta and the hospitalist. Patient will be admitted. She was given Levaquin IV. Disposition: Admission Impression: Abdominal wall wound This note was generated with [employer] dictation software. It may contain incorrect words, spelling, and punctuation that were not noted in review of the chart prior to signing ED Disposition - Plan for ED Patient: Referrals: Bethel Jauregui III, MD [Primary Care Provider] -
[2019-11-29 17:51] LABS: Absolute Lymphocyte Count 1.13 X10^3/uL (0.83-4.51); Basophil% 0.8 % (0-1); Eosinophil# 0.13 X10^3/uL; Hemoglobin 10.5 g/dL (12.0-15.0); Lymphocyte # 1.13 X10^3/ul (4.0); Lymphocyte % 8.6 % (19-41); Mean Corp Hgb Conc 30.9 g/dL (32-36); Mean Corpuscular Volume 77.6 fL (81-99); Mean Platelet Vol. 10.5 fl (6.2-12.0); Monocyte# 0.82 X10^3/uL; Monocyte% 6.2 % (0-10); NRBC Flagged by Analyzer 0 % (0-5); Neutrophil # 10.98 X10^3/uL (2.7-7.7); Neutrophil % 83.1 % (47-70); POSITIVE MORPHOLOGY YES; Platelet Count 683 K/mm3 (150-450); RBC Distribution Width SD 57.6 fl (35.1-43.9); Red Blood Count 4.38 M/mm3 (4.2-5.4); White Blood Count 13.2 K/mm3 (4.4-11.0)
[2019-11-29 18:00] LABS: Differential Indicated SCAN CRITERIA MET
[2019-11-29 18:19] LABS: Anion Gap 11 (5-15); BUN 12 mg/dL (7-18); BUN/Creat Ratio 9.4 RATIO (10-20); Calcium,Total 9.5 mg/dL (8.5-10.1); Chloride 98 mmol/L (98-107); Creatinine, Serum 1.28 mg/dL (0.55-1.02); EST Glomerular Filtration Rate 51 mL/min (>60); Est Glom Filt Rate - Afr Amer 61 mL/min (>60); Estimated Creatinine Clearance 58.52 ml/min; Glucose 108 mg/dL (74-106); Lactic Acid 1.8 mmol/L (0.4-1.9); Potassium 3.7 mmol/L (3.5-5.1); Sodium Level 133 mmol/L (136-145)
[2019-11-29 18:32] LABS: Anisocytosis 2+; Hypochromasia 2+; Microcytosis 1+; Platelet Estimate MOD INC (ADEQ)
[2019-11-29 18:59] LABS: Mucous, Urine 0 SEEN /hpf (<or=2+); Red Blood Cells-Urine 0 SEEN /hpf (0-5)
[2019-11-29 19:01] LABS: Color, Urine Yellow (Yellow); Glucose, Dipstick Normal (Normal); Ketone-Dipstick 5 mg/dl (Negative); Leukocyte Esterase-Dipstick 500 /ul (Negative); Nitrite-Dipstick Negative (Negative); Occult Blood-Urine Negative /ul (Negative); Protein-Dipstick Negative (Negative); Specific Gravity, Urine 1.005 (1.002-1.030); Urine Bilirubin Dipstick Negative (Negative); Urine Clarity Sl. Cloudy (Clear); Urine Urobilinogen Normal (Normal)
[2019-11-29 19:08] LABS: Bacteria RARE /hpf (None Seen); Squamous Epithelial Cells - UA 5-10 SEEN /hpf (5-10); White Blood Cells 0-5 SEEN /hpf (0-5)
[2019-11-29] MEDS: Ondansetron 4 MG/2 ML Vial IV (19:59)
[2019-11-29] MEDS: Morphine 4 MG/ML Syringe IV ×2 (20:19→23:10)
--- NOTE | 2019-11-29 20:26 | HP.PCM_ITS ---
Problem List (1) Sepsis Status: Acute Qualifiers: Sepsis type: sepsis due to unspecified organism Sepsis acute organ dysfunction status: unspecified Qualified Code(s): A41.9 - Sepsis, unspecified organism (2) Cellulitis of abdominal wall Status: Acute (3) ERIKA (acute kidney injury) Status: Acute (4) Anemia Status: Chronic Qualifiers: Anemia type: unspecified type Qualified Code(s): D64.9 - Anemia, unspecified (5) Obesity (BMI 30.0-34.9) Status: Chronic (6) GERD (gastroesophageal reflux disease) Status: Chronic Qualifiers: Esophagitis presence: esophagitis presence not specified Qualified Code(s): K21.9 - Gastro-esophageal reflux disease without esophagitis (7) History of gastric ulcer Status: Chronic (8) HLD (hyperlipidemia) Status: Chronic Qualifiers: Hyperlipidemia type: unspecified Qualified Code(s): E78.5 - Hyperlipidemia, unspecified (9) Nonhealing surgical wound Status: Chronic Qualifiers: Encounter type: sequela Qualified Code(s): T81.89XS - Other complications of procedures, not elsewhere classified, sequela Comment: umbilical wound (10) Lymphedema of genitalia Status: Chronic (11) HTN (hypertension) Status: Chronic Qualifiers: Hypertension type: essential hypertension Qualified Code(s): I10 - Essential (primary) hypertension History of Present Illness Date of Admission: 11/29/19 Chief Complaint: Recurrent pannicular redness, pain, discharge, fever The patient is a 34 y/o F w/ PMHx: Chronic LFT elevations, Chronic anemia, Chronic pain syndrome with notable concerns for Opiate abuse, HTN, HLD, GERD with hx gastric ulcer, following w/ Dr. Mendieta with Panniculectomy 1 year prior with chronic suprapubic ulcer following with [facility], Chronic BL Labial swelling/lymphedema, Obesity with recent serial admissions on 8719 and again on 11/12/29 secondary to cellulitis of the postoperative region as well as recent ac kotlik labial cellulitis complicated by patient's lymphedema started on clindamycin 3 mg p.o. 4 times daily with completion timeline noted 11/16/2019 but notes she is still taking the abx therapy who now represents to the [facility] ED on 11/29/19 with history of recurrent pannicular wound erythema, primarily superior to her wound in the upper pannus region with severe sharp constant 7-10/10 pain with fevers u p to 101.7 at home with associated nausea and emesis starting on day of ED presentation at ~ 4-4:30 pm with referral the ED per Dr. Mendieta's office given recurrent symptoms. Patient has been tested for COVID recently x2 and both times were negative. Work-up in the ED included T 99.8, heart rate 111, BP 202/121, respiratory rate 18, on a percent room air, CBC with WBC 13.2, hemoglobin 10.5, platelets 683 with left shift, BMP with sodium 133, BUN/creatinine 12/1.28, glucose 108, lactic acid 1.8, urinalysis not marked appearing, blood culture x2 pending per ED, CT abdomen and pelvis with no demon strated acute process of the abdomen or pelvis with no significant change from prior CT on 11/13/2019. In the ED patient ministered normal saline, Zofran, morphine. Patient most recent wound culture from prior admission on 11/13/2019 with noted staph aureus, strep group A, Corynebacterium stratum and a negative anaerobic culture with swan sensitivity. Past Medical History Past Medical History (Chronic Problems): Chronic Problems (Last Reviewed 10/25/19 @ 11:[address] 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 Lissette Nolasco MD) Back problem M53.9 Bladder infection N30.90 Excessive weight loss R63.4 EXCESSIVE WEIGHT LOSS AFTER GASTRIC BYPASS PROCEDURE Gallstones K80.20 Intertrigo L30.4 ABDOMINAL WALL SKIN CREASE INTERTRIGO Kidney stones N20.0 Soft tissue mass M79.9 PAINFUL SOFT TISSUE MASS PUBIC AREA Stomach ulcer K25.9 Vitamin deficiency E56.9 High blood pressure I10 Allergies methocarbamol Allergy (Verified 11/29/19 17:08) Chest tightness gabapentin Adverse Reaction (Verified 11/29/19 17:08) abnormal gait ketorolac tromethamine [From Toradol] Adverse Reaction (Verified 11/29/19 17:08) Upset Stomach NSAIDS (Non-Steroidal Anti-Inflamma Adverse Reaction (Verified 11/29/19 17:08) gastric bipass not supposed to take tramadol Adverse Reaction (Verified 11/29/19 17:08) Upset Stomach Home Medications: Ambulatory Orders Medication Instructions Recorded RX: Ergocalciferol [Vitamin D] 50,000 unit PO TH 04/30/17 RX: Tamsulosin HCl [Flomax] 0.4 mg PO DAILY PRN 04/30/17 RX: Lisinopril [Zestril] 40 mg PO BID 05/30/17 RX: Cyanocobalamin [Vitamin B12] 1,000 mcg IM Q30D 07/06/17 RX: Ondansetron [Zofran Odt] 4 mg PO 4X/DAY PRN PRN #30 tab 03/16/19 Hydrocodone/Acetaminophen 1 tab PO Q6H PRN PRN 11/29/19 [Hydrocodone-Acetamin 5-325 mg] RX: Amitriptyline HCl 50 mg PO QHS PRN PRN 11/29/19 RX: Clindamycin HCl 300 mg PO 4X/DAY 11/29/19 RX: Ferrous Sulfate 325 mg PO TIDCM 11/29/19 RX: Lactobacillus Acidophilus 1 tab PO BID 11/29/19 [Acidophilus] Surgical History: Surgical History (Last Reviewed 10/25/19 @ 11:[address] Lissette Nolasco MD) History of cholecystectomy Z98.890, Z90.49 History of gastric bypass Z98.84 LAPAROSCOPIC MARY-EN-Y PROCEDURE AT [facility] 2016 History of incision and drainage Z98.890 INCISION AND DRAINAGE POST OP HEMATOMA ABDOMINAL WALL 09/17/16 History of incision and drainage Z98.890 INCISION AND DRAINAGE INFECTED POST OP ABDOMINAL WALL SEROMA 10/20/2016 History of nephrolithotomy with removal of calculi Z98.890, Z87.442 2 STONES REMOVED History of thyroidectomy E89.0 LEFT THYROID REMOVED Status post panniculectomy Onset Date: ~09/17/16 Z98.890 Surgical History: cholecystectomy, gastric bypass, - - Gastric bypass 04/18/15, thyroid nodular surgery, excision 8 cm painful soft tissue mass pubic area with 20 cm complex closure 04/20/17, I+D abdominal wall and pubic area with incision and drainage and excisional debridement infected seroma/hematoma (250 cm2) 05/03/17, I+D vulva involving mons pubis with excision painful infected ulcer and excision associated painful lymphedema with partial vulvectomy (120 cm2) 07/20/17, I+D vuvla involving the mons pubis area with excisional debridement nonhealing ulcer with STSG reconstruction from the right lateral abdominal wall (15 cm2) and placement of ANGIE NPWT 10/19/17, I+D vulva involving mons pubis with excisional debridement painful infected skin graft scar contour deformity, Reconstruction with abdominal wall advancement skin flap (215 cm2) and complex secondary wound closure 02/21/19, I+D abdominal wall area with incision and drainage and excisional debridement necrotic infected seroma including umbilicus (182 cm2), I+D vulva involving the mons pubis area with incision and drainage and excisional debridement necrotic infected seroma (52 cm) 03/13/19. Surgical preparation lower anterior abdominal wall with incision and drainage and excisional debridement skin, subcutaneous tissue, and fascia necrotizing soft tissue infection abscess (660 cm2) 03/28/19, partial thyroidectomy. Psychiatric History: No pertinent psych hx [employer] History: No pertinent [employer] history Lives: With Family - Patient notes living with her mother with whom she takes care of secondary to her mother's health. Smoking Status: Never smoker Tobacco Use: Non-smoker, Secondhand Alcohol: Occasional Drugs: None - *Family History Maternal Family History: Family History (Last Reviewed 10/25/19 @ 11:[address] Lissette Nolasco MD) Mother Anxiety Bleeding disorder Depression Hypertension High cholesterol Cancer Father Diabetes Hypertension Grandfather Colon cancer Diabetes Heart disease History Items: Hypertension, - - Patient notes a maternal family history of heart disease status post CABG status, history of stroke, hypertension, hyperlipidemia. Paternal Family History: Family History (Last Reviewed 10/25/19 @ 11:[address] Lissette Nolasco MD) Mother Anxiety Bleeding disorder Depression Hypertension High cholesterol Cancer Father Diabetes Hypertension Grandfather Colon cancer Diabetes Heart disease History Items: Diabetes, Hypertension Review of Systems Constitutional: Reports: Anorexia, Fever, Malaise, Weakness, Fatigue. Denies: Chills, Weight Change HEENT: Denies: Head Aches, Sinus Congestion, Sinus Drainage Cardiovascular: Denies: Chest Pain, Palpitations Respiratory: Denies: Cough, Shortness of breath at rest, Sputum production Gastrointestinal: Reports: Abdominal Pain, Nausea, Vomiting. Denies: Constip ation, Diarrhea Genitourinary: Denies: Dysuria Musculoskeletal: Denies: Joint Pain, Joint Tenderness Skin: Reports: Skin Changes, Wounds. Denies: Rash Neurological: Denies: Numbness, Tingling, Focal weakness Psychiatric: Denies: Anxiety, Depression, Homicidal Ideations, Suicidal Ideations Hematologic/ Lymphatic: Reports: Anemia. Denies: Easy Bruising, Easy Bleeding VTE Information - Inpt Only VTE Present on Admission: No VTE Mechan Device Prophylaxis: SCD's VTE Pharm Prophylaxis ordered?: Yes Patient Problems: Active and Suspected Problems (Last Reviewed 10/25/19 @ 11:[address] Lissette Nolasco MD) ERIKA (acute kidney injury) (Acute) Subjective: Seated upright in the ED bed, acute distress, notes recent morphine is improved pain, currently 5 out of 10 in severity. Objective: Physical Examination: General: awake, alert, oriented x 3 and cooperative, seated upright in the ED bed, no obvious distress, notes pain improved to 5 out of 10 currently. Skin: normal color, turgor, no icterus, cyanosis except notable mid abdominal pannicular chronic wound with mild serosanguineous discharge, no specific periwound erythema but erythema superior to the wound on the pannus worse on the right side extending up the abdomen with no firmness or induration noted and no recurrent induration or significant edema to the labial region. HEENT: AT/NC, EOMI, PERRLA, dry MM, no carotid bruits or JVD noted. Lungs: CTA bilaterally, moderate effort, mild decrease BL bases, no rales, ronchi or wheezing. Heart: Mildly tachycardic with regular rhythm; no gallop, rub audible. Abdomen: soft, obese, tenderness palpation near chronic wound and at region of erythema however no induration or firmness, no obvious distention but difficult given chronic wound and several operations with scarring, normal distant bowel sounds, difficult to assess HSM secondary to discomfort and habitus. Extremities: no cyanosis, clubbing, or edema. Neurological: patient awake, alert, oriented x 3; cognitive function intact; pupils equally reactive to light and accomodation; cranial nerves II-XII grossly normal, moving all 4 extremities, no focal deficits, strength mildly global decrease secondary to acute presentation. Psychiatric: affect appears normal but notes uncomfortable, no acute evidence of depressive or anxiety feelings. - Physical Exam Vitals/I&O's: Vital Signs Temp Pulse Resp BP Pulse Ox 99.2 F H 90 19 H 176/88 H 99 11/29/19 19:00 11/29/19 19:17 11/29/19 19:17 11/29/19 19:17 11/29/19 19:17 Oxygen Delivery Method Room Air Weight: 210 lb 1.608 oz Body Mass Index (BMI) 33.9 Laboratory Results 11/29/19 17:30: WBC 13.2 H, RBC 4.38, Hgb 10.5 L, Hct 34.0 L, MCV 77.6 L, MCH 24.0 L, MCHC 30.9 L, RDW Std Deviation 57.6 H, RDW Coeff of Andrez 21.0 H, Plt Count 683 H, MPV 10.5, Immature Gran % (Auto) 0.300, Neut % (Auto) 83.1 H, Lymph % (Auto) 8.6 L, [place] % (Auto) 6.2, Eos % (Auto) 1.0, Baso % (Auto) 0.8, Absolute Neuts (auto) 11.0 H, Absolute Lymphs (auto) 1.13, Nucleated RBC % 0, Platelet Estimate MOD INC, Hypochromasia 2+, Anisocytosis 2+, Microcytosis 1+ 11/29/19 17:30: Sodium 133 L, Potassium 3.7, Chloride 98, Carbon Dioxide 24.0, Anion Gap 11, BUN 12, Creatinine 1.28 H, Estim Creat Clear Calc 58.52, Est GFR (MDRD) Af Amer 61, Est GFR (MDRD) Non-Af 51 L, BUN/Creatinine Ratio 9.4 L, Glucose 108 H, Calcium 9.5 11/29/19 17:30: Lactic Acid 1.8 11/29/19 18:55: Urine Color Yellow, Urine Clarity Sl. Cloudy, Urine pH 7.0, Ur Specific [place] 1.005, Urine Protein Negative, Urine Glucose (UA) Normal, Urine Ketones 5 H, Urine Occult Blood Negative, Urine Nitrite Negative, Urine Bilirubin Negative, Urine Urobilinogen Normal, Ur Leukocyte Esterase 500 H, Urine RBC 0 SEEN, Urine WBC 0-5 SEEN, Ur Squamous Epith Cells 5-10 SEEN, Urine Bacteria RARE, Urine Mucus 0 SEEN Assessment/Plan All Active Problems (Last Reviewed 10/25/19 @ 11:[address] Lissette Nolasco MD) Sepsis (Acute) Cellulitis of labia majora (Acute) Fever (Acute) ERIKA (acute kidney injury) (Acute) Cellulitis of abdominal wall (Acute) The patient is a 34 y/o F w/ PMHx: Chronic LFT elevations, Chronic anemia, Chronic pain syndrome with notable concerns for Opiate abuse, HTN, HLD, GERD with hx gastric ulcer, following w/ Dr. Mendieta with Panniculectomy >1 year prior with chronic suprapubic ulcer following with [facility], Chronic BL Labial swelling/lymphedema, Obesity with recent serial admissions w/ recent completion course clindamycin who now represents to the [facility] ED on 11/29/19 with history of recurrent pannicular wound erythema, pain with fevers up to 101.7 at home with associated nausea and emesis. 1. Acute Sepsis secondary to Recurrent Acutely Infected Chronic Pannicular Wound (Recent Cx w/ staph aureus, strep group A, Corynebacterium stratum): Will admit to [facility] given fever, tachycardia, leukocytosis, maintain on IV Levaquin with renal dosing as needed given apparent recurrent issues following recent completion of Clindamycin per discussion with Dr. Vaughn. Will request PICC in AM. Will plan continued consultation with Dr. Ballard. Will obtain Wound Cx and Wound MRSA PCR if discharge more notable, plan repeat CBC in AM, monitor erythema outline with VS checks, PRN oral and IV pain regimen; however, some concern re-presentations given sensitivities may be seeking component. From discussions with Dr. Mendieta would plan discharge on prolonged abx regimen given serial presentation despite sensitive agents. May consider ID involvement. 2. Acute kidney injury: Secondary to acute presentation as noted. Admission BUN/Cr 12/.28 with creatinine clearance 58, prior baseline creatinine noted to be 0.5 with normal creatinine clearance previously. Will hydrate, hold nephrotoxic medications and repeat chemistry in AM. 3. Hyponatremia, suspected hypovolemic secondary to #1: Admission sodium 133, normal sodium baseline, will judiciously hydrate, repeat BMP in AM. 4. Chronic liver function elevations: No LFTs during current admission previously mildly elevated, encourage continued outpatient follow-up. 5. Chronic microcytic anemia: Admission globin 10.5, baseline 8-10, stable, trend and continue iron supplementation. 6. Hypertension: We will temporarily hold patient lisinopril given renal function mild increase, resume once appropriate and in interim, PRN hydralazine. 7. Hyperlipidemia: Not on regimen, encourage outpatient follow-up. 8. Obesity: Weight loss and lifestyle changes encouraged. 9. GERD with history of gastric ulcer: We will maintain on famotidine. 10. DVT prophylaxis: SCDs, Lovenox. Inpatient E&M: 69692 In Hosp L3
[2019-11-29] MEDS: levoFLOXacin IV 750 MG/150 ML BAG 100 MG IV (20:51)
--- NOTE | 2019-11-29 21:17 | NURSING ---
triggered to order Ensure on admit (answered yes to wound). Patient states that she wants no Ensure while here.
[2019-11-29 21:52] LABS: Magnesium 1.9 mg/dL (1.6-2.6)
[2019-11-29] MEDS: 0.9% Normal Saline 1,000 ML 125 ML IV (22:18)
[2019-11-29] MEDS: oxyCODONE 5 MG Tablet 10 MG PO (22:19)
[2019-11-29] MEDS: hydrALAZINE 20 MG/ML Vial 10 MG IV (22:19)
[2019-11-29] MEDS: Famotidine 20 MG Tablet PO (22:19)
[2019-11-29] MEDS: proCHLORPERazine 10 MG/2 ML Vial 5 MG IV (23:10)
[2019-11-30 01:08] LABS: M R Staph aureus DNA By PCR Negative (Negative); Probe Check PASS; Specimen Processing Control PASS; Staph aureus DNA By PCR NEGATIVE (Negative)
[2019-11-30 02:10] VITALS: BP 140/79; PULSE 98; RESP 16; TEMP 36.9; O2SAT 98
[2019-11-30] MEDS: 0.9% Saline Lock 10 ML Syringe IV ×4 (02:11→15:30)
[2019-11-30] MEDS: Morphine 4 MG/ML Syringe IV ×5 (02:12→20:30)
[2019-11-30 05:24] LABS: Absolute Lymphocyte Count 0.66 X10^3/uL (0.83-4.51); Absolute Neutrophil Count 3.6 X10^3/uL (2.0-7.7); Basophil# 0.05 X10^3/uL; Eosinophil# 0.14 X10^3/uL; Eosinophils% 2.9 % (0-5); Hematocrit 31.8 % (37-47); Hemoglobin 9.6 g/dL (12.0-15.0); Lymphocyte # 0.66 X10^3/ul (4.0); Lymphocyte % 13.7 % (19-41); Mean Corp Hgb Conc 30.2 g/dL (32-36); Mean Corpuscular Hgb 24.4 pg (27.0-32.0); Mean Corpuscular Volume 80.7 fL (81-99); Mean Platelet Vol. 10.3 fl (6.2-12.0); Monocyte# 0.32 X10^3/uL; Monocyte% 6.6 % (0-10); NRBC Flagged by Analyzer 0 % (0-5); Neutrophil # 3.64 X10^3/uL (2.7-7.7); Neutrophil % 75.4 % (47-70); POSITIVE MORPHOLOGY YES; Platelet Count 369 K/mm3 (150-450); RBC Distribution Width CV 21.1 % (11.6-14.6); RBC Distribution Width SD 59.7 fl (35.1-43.9); Red Blood Count 3.94 M/mm3 (4.2-5.4); White Blood Count 4.8 K/mm3 (4.4-11.0)
[2019-11-30 05:26] LABS: Differential Indicated SCAN CRITERIA MET
[2019-11-30 05:49] LABS: Differential Comment SCANNED; Hypochromasia RARE
[2019-11-30 05:50] LABS: ALB/GLOB Ratio 0.7 RATIO (0.9-2.4); AST(SGOT) 191 U/L (15-37); Alanine Aminotransfer ALT/SGPT 72 U/L (13-56); Albumin, Serum 2.9 g/dL (3.2-5.0); Alkaline Phosphatase 222 U/L (45-117); Anion Gap 7 (5-15); BUN 6 mg/dL (7-18); BUN/Creat Ratio 10.2 RATIO (10-20); Calcium,Total 8.5 mg/dL (8.5-10.1); Chloride 105 mmol/L (98-107); Creatinine, Serum 0.59 mg/dL (0.55-1.02); EST Glomerular Filtration Rate 124 mL/min (>60); Est Glom Filt Rate - Afr Amer 150 mL/min (>60); Estimated Creatinine Clearance 126.96 ml/min; Globulin 4.1 g/dL (2.2-4.2); Glucose 82 mg/dL (74-106); Potassium 3.5 mmol/L (3.5-5.1); Sodium Level 136 mmol/L (136-145)
[2019-11-30] MEDS: 0.9% Normal Saline 1,000 ML 125 ML IV ×3 (06:14→22:48)
[2019-11-30] MEDS: oxyCODONE 5 MG Tablet 10 MG PO ×2 (06:20→22:53)
[2019-11-30] MEDS: Acetaminophen 325 MG Tablet 650 MG PO ×2 (06:21→22:52)
--- NOTE | 2019-11-30 07:17 | PN_ITS ---
Patient Problems: Active and Suspected Problems (Last Reviewed 10/25/19 @ 11:[address] Lissette Nolasco MD) ERIKA (acute kidney injury) (Acute) Reason for Visit: Panniculitis Subjective: Patient is a 34-year-old lady with history of recurrent admissions for abdominal wall cellulitis and wound infection presented with fever with temperature of 101.7 and redness and warmth around her anterior abdominal wound Objective: GENERAL: cooperative HEENT: Atraumatic; EYES; Anicteric, Normal Conjunctiva NECK; supple, normal thyroid, RESPIRATORY: Diminished to auscultation CARDIOVASCULAR: Regular S1 S2, GI: Anterior lower abdominal wound with surrounding areas of erythema and warmth : No Renal angle tenderness; EXTREMITIES: No edema, no clubbing, MUSCULOSKELETAL: no muscle waisting NEURO: Awake; no lateralizing signs. SKIN: No Rash PSYCH; Flat affect Vitals/I&O's: Vital Signs Temp Pulse Resp BP Pulse Ox 98.4 F 98 16 140/79 H 98 11/30/19 02:10 11/30/19 02:10 11/30/19 02:10 11/30/19 02:10 11/30/19 02:10 Oxygen Delivery Method Room Air Weight: 92.986 kg Body Mass Index (BMI) 33.0 Intake and Output for Last 24 Hours 11/28/19 11/29/19 11/30/19 23:59 23:59 23:59 Intake Total 1240 / 1240 1491.67 / 1491.67 Balance 1240 / 1240 1491.67 / 1491.67 Laboratory Results 11/29/19 17:30: WBC 13.2 H, RBC 4.38, Hgb 10.5 L, Hct 34.0 L, MCV 77.6 L, MCH 24.0 L, MCHC 30.9 L, RDW Std Deviation 57.6 H, RDW Coeff of Andrez 21.0 H, Plt Count 683 H, MPV 10.5, Immature Gran % (Auto) 0.300, Neut % (Auto) 83.1 H, Lymph % (Auto) 8.6 L, Dundy % (Auto) 6.2, Eos % (Auto) 1.0, Baso % (Auto) 0.8, Absolute Neuts (auto) 11.0 H, Absolute Lymphs (auto) 1.13, Nucleated RBC % 0, Platelet Estimate MOD INC, Hypochromasia 2+, Anisocytosis 2+, Microcytosis 1+ 11/29/19 17:30: Sodium 133 L, Potassium 3.7, Chloride 98, Carbon Dioxide 24.0, Anion Gap 11, BUN 12, Creatinine 1.28 H, Estim Creat Clear Calc 58.52, Est GFR (MDRD) Af Amer 61, Est GFR (MDRD) Non-Af 51 L, BUN/Creatinine Ratio 9.4 L, Glucose 108 H, Calcium 9.5 11/29/19 17:30: Lactic Acid 1.8 11/29/19 17:30: Magnesium 1.9 11/29/19 18:55: Urine Color Yellow, Urine Clarity Sl. Cloudy, Urine pH 7.0, Ur Specific Cla[place] 1.005, Urine Protein Negative, Urine Glucose (UA) Normal, Urine Ketones 5 H, Urine Occult Blood Negative, Urine Nitrite Negative, Urine Bilirubin Negative, Urine Urobilinogen Normal, Ur Leukocyte Esterase 500 H, Urine RBC 0 SEEN, Urine WBC 0-5 SEEN, Ur Squamous Epith Cells 5-10 SEEN, Urine Bacteria RARE, Urine Mucus 0 SEEN 11/29/19 22:40: S.aureus Protein A PCR NEGATIVE, MRSA (PCR) Negative 11/30/19 05:05: WBC 4.8, RBC 3.94 L, Hgb 9.6 L, Hct 31.8 L, MCV 80.7 L, MCH 24.4 L, MCHC 30.2 L, RDW Std Deviation 59.7 H, RDW Coeff of Andrez 21.1 H, Plt Count 369, MPV 10.3, Immature Gran % (Auto) 0.400, Neut % (Auto) 75.4 H, Lymph % (Auto) 13.7 L, Dundy % (Auto) 6.6, Eos % (Auto) 2.9, Baso % (Auto) 1.0, Absolute Neuts (auto) 3.6, Absolute Lymphs (auto) 0.66 L, Nucleated RBC % 0, Differential Comment SCANNED, Hypochromasia RARE 11/30/19 05:05: Sodium 136, Potassium 3.5, Chloride 105, Carbon Dioxide 24.0, Anion Gap 7, BUN 6 L, Creatinine 0.59, Estim Creat Clear Calc 126.96, Est GFR (MDRD) Af Amer 150, Est GFR (MDRD) Non-Af 124, BUN/Creatinine Ratio 10.2, Glucose 82, Calcium 8.5, Total Bilirubin 0.90, AST 191 H, ALT 72 H, Alkaline Phosphatase 222 H, Total Protein 7.0, Albumin 2.9 L, Globulin 4.1, Albumin/Globulin Ratio 0.7 L Current Medications Acetaminophen (Tylenol) 650 mg PO Q6H PRN PRN PRN Reason: Pain Score 1-10/Temp > 100.7 F Last Admin: 11/30/19 06:21 Dose: 650 mg Documented by: Al Hydroxide/Mg Hydroxide (Mylanta Ii) 30 ml PO Q6H PRN PRN PRN Reason: Gastric Burning Albuterol Sulfate (Ventolin Aerosols) 2.5 mg INHALATION Q2H PRN PRN PRN Reason: Dyspnea, wheezing Amitriptyline HCl (Elavil) 50 mg PO QHS PRN PRN PRN Reason: SLEEP Enoxaparin Sodium (Lovenox) 40 mg SC DAILY [facility] Famotidine (Pepcid) 20 mg PO BID [facility] Last Admin: 11/29/19 22:19 Dose: 20 mg Documented by: Ferrous Sulfate (Ferrous Sulfate) 325 mg PO TIDCM [facility] Guaifenesin (Robitussin) 20 ml PO Q4H PRN PRN PRN Reason: COUGH Hydralazine HCl (Apresoline Iv) 10 mg IV Q4H PRN PRN PRN Reason: SBP > 160 Last Admin: 11/29/19 22:19 Dose: 10 mg Documented by: Sodium Chloride () 1,000 mls @ 125 mls/hr IV .Q8H [facility] Last Admin: 11/30/19 06:14 Dose: 125 mls/hr Documented by: Levofloxacin (Levaquin Iv) 750 mg in 150 mls @ 100 mls/hr IV Q24H [facility] Sodium Chloride () 250 mls @ 15 mls/hr IV .[id number] PRN PRN Reason: Saline Flush Sodium Chloride () 250 mls @ 15 mls/hr IV .[id number] PRN PRN Reason: Additional IVPB Infusion Lactobacillus Acidophilus (Acidophilus) 1 tablet PO BID [facility] Last Admin: 11/29/19 22:19 Dose: 1 tablet Documented by: Magnesium Hydroxide (Milk Of Magnesia) 30 ml PO DAILY PRN PRN PRN Reason: Constipation Morphine Sulfate () 4 mg IV Q3H PRN PRN PRN Reason: Pain Score 6-10/10 Last Admin: 11/30/19 02:12 Dose: 4 mg Documented by: Ondansetron HCl (Zofran) 4 mg IV Q6H PRN PRN PRN Reason: NAUSEA/VOMITING Oxycodone HCl (Oxyir) 10 mg PO Q4H PRN PRN PRN Reason: Pain Score 4-5/10 Last Admin: 11/30/19 06:20 Dose: 10 mg Documented by: Prochlorperazine Edisylate (Compazine Iv) 5 mg IV Q4H PRN PRN PRN Reason: Breakthrough nausea/vomiting Last Admin: 11/29/19 23:10 Dose: 5 mg Documented by: Psyllium Hydrophilic Mucilloid (Metamucil) 1 packet PO DAILY PRN PRN PRN Reason: Constipation Senna/Docusate Sodium (Senokot-S, Catrachita-Colace) 2 tablet PO BID PRN PRN PRN Reason: Constipation Sodium Chloride () 10 - 40 ml IV UD PRN PRN Reason: SALINE FLUSH Last Admin: 11/30/19 02:11 Dose: 10 ml Documented by: Tamsulosin HCl (Flomax) 0.4 mg PO DAILY PRN PRN PRN Reason: kidney stones Temazepam (Restoril) 15 mg PO QHS PRN PRN PRN Reason: INSOMNIA Throat Lozenges (Cepacol Sore Throat Lozenge) 1 lozenge MUCOUS MEM Q2H PRN PRN PRN Reason: SORE THROAT Medical Necessity - Tobacco Use Smoking Status: Never smoker Tobacco Use: Non-smoker, Secondhand Assessment/Plan All Active Problems (Last Reviewed 10/25/19 @ 11:[address] Lissette Nolasco MD) Sepsis (Acute) Cellulitis of labia majora (Acute) Fever (Acute) ERIKA (acute kidney injury) (Acute) Cellulitis of abdominal wall (Acute) Patient is a 34-year-old lady with history of recurrent admissions for abdominal wall cellulitis and wound infection presented with fever with temperature of 101.7 and redness and warmth around her anterior abdominal wound 1. Acute recurrent Infected Chronic Pannicular Wound -Cultures drawn on 11/13/2019 grew staph aureus Streptococcus group B and corynebacterium. Admitted to regular nursing floor started on broad-spectrum antibiotic therapy with consultation placed to plastic surgery as well as infectious disease 2. Acute kidney injury ?Baseline creatinine on 11/16/2019 was 0.39 creatinine on admission was 1.28 resuscitated with IV fluids 3. Mild hyponatremia Secondary to hypovolemic hyponatremia resuscitated with IV fluids 4. Acute transaminitis ?Patient liver function test on 11/16/2019 was normal with AST of 15 and ALT of 44. Liver function test on admission demonstrated AST of 191 and ALT of 72. Ordered ultrasound of the right upper quadrant for further evaluation 3. Obesity with BMI of 33.1 ?Patient has undergone gastric bypass losing over 200 pounds patient is on B12 supplementation 6. History of gastric ulcers ?Patient had a recent EGD performed by Dr. Borjas was treated numerous gastric ulcers patient is on PPI 7. Hypertension -Hypertension - Blood pressure controlled, home medications continued with dose adjustment as needed 8. DVT prophylaxis - On enoxaparin Clinical Impression(s) from Imaging Studies Abdomen/Pelvis CT 11/29/19 17:31 IMPRESSION: 1. No demonstrated acute process of the abdomen and pelvis. No significant change from the prior study dated November 13, 2019. Electronically Signed: Vincenzo Mcguire MD at 19:11 EDT , Service support , Active Medications Acetaminophen (Tylenol) 650 mg PO Q6H PRN PRN PRN Reason: Pain Score 1-10/Temp > 100.7 F Last Admin: 11/30/19 06:21 Dose: 650 mg Documented by: Al Hydroxide/Mg Hydroxide (Mylanta Ii) 30 ml PO Q6H PRN PRN PRN Reason: Gastric Burning Albuterol Sulfate (Ventolin Aerosols) 2.5 mg INHALATION Q2H PRN PRN PRN Reason: Dyspnea, wheezing Amitriptyline HCl (Elavil) 50 mg PO QHS PRN PRN PRN Reason: SLEEP Enoxaparin Sodium (Lovenox) 40 mg SC DAILY [facility] Famotidine (Pepcid) 20 mg PO BID [facility] Last Admin: 11/29/19 22:19 Dose: 20 mg Documented by: Ferrous Sulfate (Ferrous Sulfate) 325 mg PO TIDCM [facility] Last Admin: 11/30/19 08:34 Dose: 325 mg Documented by: Guaifenesin (Robitussin) 20 ml PO Q4H PRN PRN PRN Reason: COUGH Hydralazine HCl (Apresoline Iv) 10 mg IV Q4H PRN PRN PRN Reason: SBP > 160 Last Admin: 11/29/19 22:19 Dose: 10 mg Documented by: Sodium Chloride () 1,000 mls @ 125 mls/hr IV .Q8H [facility] Last Admin: 11/30/19 06:14 Dose: 125 mls/hr Documented by: Levofloxacin (Levaquin Iv) 750 mg in 150 mls @ 100 mls/hr IV Q24H [facility] Sodium Chloride () 250 mls @ 15 mls/hr IV .[id number] PRN PRN Reason: Saline Flush Sodium Chloride () 250 mls @ 15 mls/hr IV .[id number] PRN PRN Reason: Additional IVPB Infusion Lactobacillus Acidophilus (Acidophilus) 1 tablet PO BID [facility] Last Admin: 11/29/19 22:19 Dose: 1 tablet Documented by: Magnesium Hydroxide (Milk Of Magnesia) 30 ml PO DAILY PRN PRN PRN Reason: Constipation Morphine Sulfate () 4 mg IV Q3H PRN PRN PRN Reason: Pain Score 6-10/10 Last Admin: 11/30/19 08:28 Dose: 4 mg Documented by: Ondansetron HCl (Zofran) 4 mg IV Q6H PRN PRN PRN Reason: NAUSEA/VOMITING Oxycodone HCl (Oxyir) 10 mg PO Q4H PRN PRN PRN Reason: Pain Score 4-5/10 Last Admin: 11/30/19 06:20 Dose: 10 mg Documented by: Prochlorperazine Edisylate (Compazine Iv) 5 mg IV Q4H PRN PRN PRN Reason: Breakthrough nausea/vomiting Last Admin: 11/29/19 23:10 Dose: 5 mg Documented by: Psyllium Hydrophilic Mucilloid (Metamucil) 1 packet PO DAILY PRN PRN PRN Reason: Constipation Senna/Docusate Sodium (Senokot-S, Catrachita-Colace) 2 tablet PO BID PRN PRN PRN Reason: Constipation Sodium Chloride () 10 - 40 ml IV UD PRN PRN Reason: SALINE FLUSH Last Admin: 11/30/19 08:28 Dose: 10 ml Documented by: Tamsulosin HCl (Flomax) 0.4 mg PO DAILY PRN PRN PRN Reason: kidney stones Temazepam (Restoril) 15 mg PO QHS PRN PRN PRN Reason: INSOMNIA Throat Lozenges (Cepacol Sore Throat Lozenge) 1 lozenge MUCOUS MEM Q2H PRN PRN PRN Reason: SORE THROAT Inpatient E&M: 73428 Subs Hosp L3
[2019-11-30 07:34] VITALS: O2SAT 97
[2019-11-30 08:32] VITALS: BP 162/93; PULSE 98; RESP 16; TEMP 36.8; O2SAT 98
[2019-11-30] MEDS: Ferrous Sulfate 325 MG Tablet PO ×3 (08:34→17:36)
--- NOTE | 2019-11-30 08:39 | NURSING ---
wound photo: abdomen
--- NOTE | 2019-11-30 09:46 | CASEMGMT ---
Readmission Review: Patient hx: Obesity, lymphedema genitalia, gastric bypass, multiple operative interventions for seroma/lymphedema of abd wall/mons pubis Previous admissions: 10/23-10/27/2019 Sepsis/cellulitis/nonhealing abd wall ulcer; 11/12-11/16/2019 Sepsis/abd wall ulcer w/cellulitis, Fe def anemia Pt discharged on 11/15 with po antibiotic and follow-up plans including appointments with PCP on 11/20, wound center on 11/19, and Dr. Mendieta on 12/03 for further antibiotic need determination. Pt was a no show for the wound center appointment and was readmitted prior to her scheduled follow-up appointment with Dr. Mendieta. Discharge follow-up call to pt on 11/16 notes pt did obtain her prescriptions including the antibiotic. Current plan: Dr. Mendieta and Dr. Renee consulted. Expect discharge disposition to home. Will continue to monitor for further discharge needs including route of antibiotics at discharge. Terri Jiménez RN CM
--- NOTE | 2019-11-30 10:01 | US_ITS ---
STUDY: ABDOMINAL ULTRASOUND - RIGHT UPPER QUADRANT REASON FOR VISIT: Female, 34 years old ELEVATED LIVER ENZYMES TECHNIQUE: Ultrasound evaluation of the right upper quadrant was performed with real-time and static rogel-scale imaging. TECHNICAL QUALITY: Adequate. COMPARISON: CT of the abdomen and pelvis dated November 29, 2019 FINDINGS: Liver: The liver measures 17.7 cm. There is normal echogenicity of the liver. The bile ducts are within normal limits. There is hepatic color flow. The direction of portal flow is hepatopetal. There is no demonstrated mass lesion. Gallbladder: The patient is status post cholecystectomy. Common Bile Duct (C.B.D.): The common bile duct measures 6.7 mm. Pancreas: Only a portion of the head of the pancreas is seen, without an obvious or significant abnormality. The remaining aspects of the pancreas are obscured by bowel gas. On the recent CT of abdomen and pelvis the pancreas is normal. Right Kidney: Normal size of the right kidney. The right kidney measures 11.9 x 5.4 x 5.4 cm. Normal renal cortex. The right cortex measures 1.6 cm. There is no demonstrated renal mass or cyst. There is no right hydronephrosis. US/Liver IMPRESSION: 1. No demonstrated abnormality in the visualized structures. Electronically Signed: Vincezno Mcguire MD at 17:48 EDT , Service support ,
--- NOTE | 2019-11-30 10:48 | PCM.HP.ID ---
Problem List (1) Local infection of the skin and subcutaneous tissue, unspecified Status: Chronic Reason for Consult: cellulitis Consulted by: Dr. Shipman History of Present Illness: The patient is a 34 year old F with recurrent cellulitis/panniculitis. Admitted 10/23 and 11/12 here, wound cxs with MSSA, strep, and diphtheroids. Both times discharged on po clinda, 6 day course initially, then about 2 week course last admit. Re-admitted last night due to 2-3 days of progressive lower abd/suprapubic pain, tenderness, induration, mild chills. Came back to hospital, started on iv levaquin, picc ordered, feeling not much better today. Full ROS performed and neg except as noted above. - Medical History Past Medical History (Chronic Problems): Chronic Problems (Last Reviewed 10/25/19 @ 11:[address] 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) Nonhealing surgical wound (Chronic) umbilical wound Other complications of skin graft (allograft) (autograft) (Chronic) Vulvar ulceration (Chronic) Lymphedema of genitalia (Chronic) Intertrigo (Chronic) abdominal wall skin crease intertrigo Localized adiposity (Chronic) 8 cm painful soft tissue mass pubic area Excessive body weight loss (Chronic) after gastric bypass procedure HTN (hypertension) (Chronic) Nephrolithiasis (Chronic) Ovarian cyst (Chronic) Allergies/Adverse Reactions: Allergies methocarbamol Allergy (Verified 11/29/19 17:08) Chest tightness gabapentin Adverse Reaction (Verified 11/29/19 17:08) abnormal gait ketorolac tromethamine [From Toradol] Adverse Reaction (Verified 11/29/19 17:08) Upset Stomach NSAIDS (Non-Steroidal Anti-Inflamma Adverse Reaction (Verified 11/29/19 17:08) gastric bipass not supposed to take tramadol Adverse Reaction (Verified 11/29/19 17:08) Upset Stomach Home Medications: Ambulatory Orders Medication Instructions Recorded Ergocalciferol [Vitamin D] 50,000 unit PO TH 04/30/17 Tamsulosin HCl [Flomax] 0.4 mg PO DAILY PRN 04/30/17 Lisinopril [Zestril] 40 mg PO BID 05/30/17 Cyanocobalamin [Vitamin B12] 1,000 mcg IM Q30D 07/06/17 Ondansetron [Zofran Odt] 4 mg PO 4X/DAY PRN PRN #30 tab 03/16/19 Amitriptyline HCl 50 mg PO QHS PRN PRN 11/29/19 Clindamycin HCl 300 mg PO 4X/DAY 11/29/19 Ferrous Sulfate 325 mg PO TIDCM 11/29/19 Hydrocodone/Acetaminophen 1 tab PO Q6H PRN PRN 11/29/19 [Hydrocodone-Acetamin 5-325 mg] Lactobacillus Acidophilus 1 tab PO BID 11/29/19 [Acidophilus] - Social History Tobacco Use: non-smoker Vital Signs Temp Pulse Resp BP Pulse Ox 98.3 F 98 16 162/93 H 98 11/30/19 08:32 11/30/19 08:32 11/30/19 08:32 11/30/19 08:32 11/30/19 08:32 Oxygen Delivery Method Room Air Weight: 92.986 kg Body Mass Index (BMI) 33.0 Laboratory Tests Past 24 Hrs 11/29/19 11/29/19 11/29/19 17:30 17:30 17:30 WBC 13.2 H RBC 4.38 Hgb 10.5 L Hct 34.0 L MCV 77.6 L MCH 24.0 L MCHC 30.9 L RDW Std Deviation 57.6 H RDW Coeff of Andrez 21.0 H Plt Count 683 H MPV 10.5 Immature Gran % (Auto) 0.300 Neut % (Auto) 83.1 H Lymph % (Auto) 8.6 L Dare % (Auto) 6.2 Eos % (Auto) 1.0 Baso % (Auto) 0.8 Absolute Neuts (auto) 11.0 H Absolute Lymphs (auto) 1.13 Nucleated RBC % 0 Differential Comment Platelet Estimate MOD INC Hypochromasia 2+ Anisocytosis 2+ Microcytosis 1+ Sodium 133 L Potassium 3.7 Chloride 98 Carbon Dioxide 24.0 Anion Gap 11 BUN 12 Creatinine 1.28 H Estim Creat Clear Calc 58.52 Est GFR (MDRD) Af Amer 61 Est GFR (MDRD) Non-Af 51 L BUN/Creatinine Ratio 9.4 L Glucose 108 H Lactic Acid 1.8 Calcium 9.5 Magnesium Total Bilirubin AST ALT Alkaline Phosphatase Total Protein Albumin Globulin Albumin/Globulin Ratio Urine Color Urine Clarity Urine pH Ur Specific [place] Urine Protein Urine Glucose (UA) Urine Ketones Urine Occult Blood Urine Nitrite Urine Bilirubin Urine Urobilinogen Ur Leukocyte Esterase Urine RBC Urine WBC Ur Squamous Epith Cells Urine Bacteria Urine Mucus S.aureus Protein A PCR MRSA (PCR) 11/29/19 11/29/19 11/29/19 17:30 18:55 22:40 WBC RBC Hgb Hct MCV MCH MCHC RDW Std Deviation RDW Coeff of Andrez Plt Count MPV Immature Gran % (Auto) Neut % (Auto) Lymph % (Auto) Dare % (Auto) Eos % (Auto) Baso % (Auto) Absolute Neuts (auto) Absolute Lymphs (auto) Nucleated RBC % Differential Comment Platelet Estimate Hypochromasia Anisocytosis Microcytosis Sodium Potassium Chloride Carbon Dioxide Anion Gap BUN Creatinine Estim Creat Clear Calc Est GFR (MDRD) Af Amer Est GFR (MDRD) Non-Af BUN/Creatinine Ratio Glucose Lactic Acid Calcium Magnesium 1.9 Total Bilirubin AST ALT Alkaline Phosphatase Total Protein Albumin Globulin Albumin/Globulin Ratio Urine Color Yellow Urine Clarity Sl. Cloudy Urine pH 7.0 Ur Specific [place] 1.005 Urine Protein Negative Urine Glucose (UA) Normal Urine Ketones 5 H Urine Occult Blood Negative Urine Nitrite Negative Urine Bilirubin Negative Urine Urobilinogen Normal Ur Leukocyte Esterase 500 H Urine RBC 0 SEEN Urine WBC 0-5 SEEN Ur Squamous Epith Cells 5-10 SEEN Urine Bacteria RARE Urine Mucus 0 SEEN S.aureus Protein A PCR NEGATIVE MRSA (PCR) Negative 11/30/19 11/30/19 05:05 05:05 WBC 4.8 RBC 3.94 L Hgb 9.6 L Hct 31.8 L MCV 80.7 L MCH 24.4 L MCHC 30.2 L RDW Std Deviation 59.7 H RDW Coeff of Andrez 21.1 H Plt Count 369 MPV 10.3 Immature Gran % (Auto) 0.400 Neut % (Auto) 75.4 H Lymph % (Auto) 13.7 L Dare % (Auto) 6.6 Eos % (Auto) 2.9 Baso % (Auto) 1.0 Absolute Neuts (auto) 3.6 Absolute Lymphs (auto) 0.66 L Nucleated RBC % 0 Differential Comment SCANNED Platelet Estimate Hypochromasia RARE Anisocytosis Microcytosis Sodium 136 Potassium 3.5 Chloride 105 Carbon Dioxide 24.0 Anion Gap 7 BUN 6 L Creatinine 0.59 Estim Creat Clear Calc 126.96 Est GFR (MDRD) Af Amer 150 Est GFR (MDRD) Non-Af 124 BUN/Creatinine Ratio 10.2 Glucose 82 Lactic Acid Calcium 8.5 Magnesium Total Bilirubin 0.90 AST 191 H ALT 72 H Alkaline Phosphatase 222 H Total Protein 7.0 Albumin 2.9 L Globulin 4.1 Albumin/Globulin Ratio 0.7 L Urine Color Urine Clarity Urine pH Ur Specific [place] Urine Protein Urine Glucose (UA) Urine Ketones Urine Occult Blood Urine Nitrite Urine Bilirubin Urine Urobilinogen Ur Leukocyte Esterase Urine RBC Urine WBC Ur Squamous Epith Cells Urine Bacteria Urine Mucus S.aureus Protein A PCR MRSA (PCR) - Other Studies Radiology: [] reviewed Other Studies: [] Route of nutrition/ use of supplements: [] Nutritional Intake: [] IV Site: [] Adhikari Catheter: [] - Physical Exam General: Alert, Oriented x3, Cooperative, No apparent distress HEENT: Atraumatic, PERRLA, EOMI Neck: Supple, No Nodes Lungs: Clear to auscultation, Normal air movement Cardiovascular: Regular rate, Regular Rhythm Abdomen: Soft, Obese, - - mild lower abd soreness and induration and erythema Extremities: No edema Skin: Ulcer/ Wound - reviewed photo IV Site: Peripheral, without redness Musculoskeletal: No Tenderness to Palpation of Joints or Extremities Neurological: Cranial nerves II-XII grossly intact - Assessment/Plan Antibiotics: [] Assessment/Plan: [] Active and Suspected Problems (Last Reviewed 10/25/19 @ 11:[address] Lissette Nolasco MD) ERIKA (acute kidney injury) (Acute) Recurrent lower abd cellulitis/wound infection/panniculitis - recurrent cxs with mssa, strep, and diphtheroids. Not responding to multiple courses of clinda. Has also grown PsA in the past. Staph aureus pcr neg here. Wound cx pending. I think recurrent failure with clinda is likely related to reported susceptibility of corynebacterium striatum is around 5-10% for clinda. Levaquin is not much better. Will add linezolid which has 100% reported susceptibility for all corynebacteria and has 1:1 oral to iv bioavailability. Ok to keep levaquin for now while cx pending in case she has new GNR involvement. Would not place picc at this time. Will hold elavil while on linezolid. Will follow, thank you, d/w Dr. Shipman, keycase assembler and nursing. Left messages for Dr. Mendieta via phone and [employer].
[2019-11-30] MEDS: Famotidine 20 MG Tablet PO ×2 (10:49→22:48)
[2019-11-30] MEDS: Enoxaparin 40 MG/0.4 ML Syringe SC (10:49)
[2019-11-30] MEDS: Linezolid 600 MG Tablet PO ×2 (11:48→20:47)
--- NOTE | 2019-11-30 14:29 | CON.PCM_ITS ---
- Consult DATE OF CONSULT: 11/30/19 REFERRING PHYSICIAN: Dr. Eli. ALLERGIST/IMMUNOLOGIST: Dr. Mendieta. - Reason for Consult REASON FOR CONSULTATION: \Nonhealing ulcer abdominal wall and vulva involving the mons pubis with surrounding cellulitis. HISTORY OF PRESENT ILLNESS Patient has been hospitalized recently for her recurrent cellulitis on 10/24/19 and 11/13/19. She was treated with IV antibiotics each time with resolution of the cellulitis. Wound culture from 10/24/19 showed Staphylococcus aureus and Corynebacterium striatum and was discharged on Clindamycin for a week. Cellulitis recurred after stopping the Clindamycin which led to readmission on 11/13/19. Wound culture from 11/13/19 showed Staphylococcus aureus, Streptococcus Group A, and Corynebacterium striatum and was discharged on Clindamycin for 3 weeks. This time while still on Clindamycin, she developed recurrent cellulitis which led to the current admission. CT was done for each admission which showed no fluid collection or abscess. For this admission she was started on Levaquin and it has been changed to Zyvox. Wound care started with Aquacel Silver. She had been doing Dakin's dressing changes at home. Another wound culture was obtained. I was asked to evaluate this patient for surgical options for treatment. She has a [facility] on 12[facility]04/19. PAST MEDICAL HISTORY Skin ulcer of abdominal wall with fat layer exposed Pseudomonas aeruginosa infection Acute on chronic blood loss anemia Necrotizing soft tissue infection Methicillin resistant Staphylococcus epidermidis infection Vulvar ulceration Lymphedema of genitalia abdominal wall skin crease intertrigo Localized adiposity painful soft tissue mass pubic area Excessive body weight loss after gastric bypass procedure HTN (hypertension) Nephrolithiasis Ovarian cyst Vitamin deficiency Stomach ulcer with esophagitis Gallstones Back pain Bladder infection ALLERGIES methocarbamol gabapentin ketorolac tromethamine [From Toradol] NSAIDS MEDICATIONS Amitriptyline Clindamycin Vitamin B12 Vitamin D Ferrous Sulfate Vicodin Acidophilus Zestril Zofran Flomax PAST SURGICAL HISTORY History of incision and drainage postop hematoma abdominal wall History of incision and drainage postop abdominal wall seroma History of nephrolithotomy with removal of calculi Status post panniculectomy cholecystectomy, gastric bypass (laparoscopic kacie-en-Y procedure at [facility] 04/18/15) thyroid nodular surgery. Excision 8 cm painful soft tissue mass pubic area with 20 cm complex closure 04/20/17. Surgical preparation lower anterior abdominal wall and pubic area with incision and drainage and excisional debridement infected seroma/hematoma (250 cm2) 05/03/17. Surgical preparation vulva involving mons pubis with excision painful infected ulcer and excision associated painful lymphedema with partial vulvectomy (120 cm2) 07/20/17. Surgical preparation vuvla involving the mons pubis area with excisional debridement nonhealing ulcer with STSG reconstruction from the right lateral abdominal wall (15 cm2) and placement of ANGIE NPWT 10/19/17. 1. Surgical preparation vulva involving mons pubis with excisional debridement painful infected skin graft scar contour deformity. 2. Reconstruction with abdominal wall advancement skin flap (215 cm2) and complex secondary wound closure 02/21/19. 1. Surgical preparation abdominal wall area with incision and drainage and excisional debridement necrotic infected seroma including umbilicus (182 cm2). 2. Surgical preparation vulva involving the mons pubis area with incision and drainage and excisional debridement necrotic infected seroma (52 cm) 03/13/19. Surgical preparation lower anterior abdominal wall with incision and drainage and excisional debridement skin, subcutaneous tissue, and fascia necrotizing soft tissue infection abscess (660 cm2) 03/28/19. SOCIAL HISTORY Smoking Status: Never smoker Alcohol: None Drugs: None FAMILY HISTORY Mother - Anxiety, Bleeding disorder, Depression, Hypertension, High cholesterol, Cancer Father - Diabetes, Hypertension Grandfather - Colon cancer, Diabetes, Heart disease REVIEW OF SYSTEMS Comment: Constitutional: Reports: Fever. Denies: Anorexia, Chills, Weakness. Eyes: Denies: Blurred vision, Double vision, Drainage, Redness. HEENT: Denies: Difficulty Hearing, Ear Pain, Eye Pain, Nasal Congestion, Sore Throat. Cardiovascular: Denies: Chest Pain, Chest Pressure, Chest Tightness, Heaviness, Palpitations, Syncope. Respiratory: Denies: Cough, Pleuritic Pain, Shortness of Breath, Sputum production, Wheezing. Gastrointestinal: Reports: Abdominal Pain. Denies: Constipation, Diarrhea, Nausea, Vomiting. Genitourinary: Denies: Dysuria, Frequency, Hematuria. Musculoskeletal: Denies: Arm Pain, Back Pain, Foot Pain. Neurological: Denies: Balance problems, Double vision, Change in Speech, Slurred speech, Confusion, Focal weakness, Incoordination, Numbness. Psychiatric: Denies: Anxiety, Depression. Endocrine: Denies: Change in Body Habitus, Polydipsia, Polyuria PHYSICAL EXAMINATION General: Alert, Oriented x3, Cooperative, No apparent distress HEENT: Atraumatic, PERRLA, EOMI, Normocephalic Oral: Moist Mucosa, No Gingival or Mucosal Lesions/ Ulcerations Neck: Supple, Nontender, No cervical adenopathy. Lungs: Clear to auscultation. Cardiovascular: Regular rate, Regular Rhythm. Abdomen: Soft, Non-Distended, No Hepato-splenomegaly, Lower abdominal tenderness with surrounding cellulitis. In the lower midline of the abdominal wall and extending into the vulva involving the mons pubis is a nonhealing ulcer. Exudate present. Measures 2.5 x 5.5 cm. Extremities: No clubbing, No cyanosis, Edema - Trace edema. Genitalia: Has lymphedema genitalia involving genitocrural crease extending up to labia. Lymphatic: No Cervical, Supraclavicular, or Inguinal Adenopathy Neurological: Cranial nerves II-XII grossly intact. Psych/Mental Status: Normal Affect, Appropriate, Alert and oriented to time, place, person, mood and affect. CURRENT MEDICATIONS Acetaminophen (Tylenol) 650 mg PO Q6H PRN PRN PRN Reason: Pain Score 1-10/Temp > 100.7 F Last Admin: 11/30/19 06:21 Dose: 650 mg Documented by: Al Hydroxide/Mg Hydroxide (Mylanta Ii) 30 ml PO Q6H PRN PRN PRN Reason: Gastric Burning Albuterol Sulfate (Ventolin Aerosols) 2.5 mg INHALATION Q2H PRN PRN PRN Reason: Dyspnea, wheezing Enoxaparin Sodium (Lovenox) 40 mg SC DAILY [facility] Last Admin: 11/30/19 10:49 Dose: 40 mg Documented by: Famotidine (Pepcid) 20 mg PO BID [facility] Last Admin: 11/30/19 10:49 Dose: 20 mg Documented by: Ferrous Sulfate (Ferrous Sulfate) 325 mg PO TIDCM [facility] Last Admin: 11/30/19 13:31 Dose: 325 mg Documented by: Guaifenesin (Robitussin) 20 ml PO Q4H PRN PRN PRN Reason: COUGH Hydralazine HCl (Apresoline Iv) 10 mg IV Q4H PRN PRN PRN Reason: SBP > 160 Last Admin: 11/29/19 22:19 Dose: 10 mg Documented by: Sodium Chloride () 1,000 mls @ 125 mls/hr IV .Q8H [facility] Last Admin: 11/30/19 14:13 Dose: 125 mls/hr Documented by: Sodium Chloride () 250 mls @ 15 mls/hr IV .[id number] PRN PRN Reason: Saline Flush Sodium Chloride () 250 mls @ 15 mls/hr IV .[id number] PRN PRN Reason: Additional IVPB Infusion Lactobacillus Acidophilus (Acidophilus) 1 tablet PO BID [facility] Last Admin: 11/30/19 10:49 Dose: 1 tablet Documented by: Linezolid (Zyvox) 600 mg PO BID [facility] Last Admin: 11/30/19 11:48 Dose: 600 mg Documented by: Magnesium Hydroxide (Milk Of Magnesia) 30 ml PO DAILY PRN PRN PRN Reason: Constipation Morphine Sulfate () 4 mg IV Q3H PRN PRN PRN Reason: Pain Score 6-10/10 Last Admin: 11/30/19 11:48 Dose: 4 mg Documented by: Ondansetron HCl (Zofran) 4 mg IV Q6H PRN PRN PRN Reason: NAUSEA/VOMITING Oxycodone HCl (Oxyir) 10 mg PO Q4H PRN PRN PRN Reason: Pain Score 4-5/10 Last Admin: 11/30/19 06:20 Dose: 10 mg Documented by: Prochlorperazine Edisylate (Compazine Iv) 5 mg IV Q4H PRN PRN PRN Reason: Breakthrough nausea/vomiting Last Admin: 11/29/19 23:10 Dose: 5 mg Documented by: Psyllium Hydrophilic Mucilloid (Metamucil) 1 packet PO DAILY PRN PRN PRN Reason: Constipation Senna/Docusate Sodium (Senokot-S, Catrachita-Colace) 2 tablet PO BID PRN PRN PRN Reason: Constipation Sodium Chloride () 10 - 40 ml IV UD PRN PRN Reason: SALINE FLUSH Last Admin: 11/30/19 11:49 Dose: 10 ml Documented by: Tamsulosin HCl (Flomax) 0.4 mg PO DAILY PRN PRN PRN Reason: kidney stones Temazepam (Restoril) 15 mg PO QHS PRN PRN PRN Reason: INSOMNIA Throat Lozenges (Cepacol Sore Throat Lozenge) 1 lozenge MUCOUS MEM Q2H PRN PRN PRN Reason: SORE THROAT DIAGNOSTIC DATA Abdomen/Pelvis CT 11/29/19 17:31 IMPRESSION: 1. No demonstrated acute process of the abdomen and pelvis. No significant change from the prior study dated November 13, 2019. Electronically Signed: Vincenzo Mcguire MD at 19:11 EDT , Service support , ASSESSMENT 1. Nonhealing ulcer abdominal wall and vulva involving the mons pubis with surrounding cellulitis. 2. 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 3. 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 PLAN CT reviewed. Continue Zyvox. Wound culture pending thus far. A positive culture may necessitate antibiotic modification. Talked to Dr. Renee from Infectious Diseases. He states the Clindamycin is usually not very effective against Corynebacterium striatum from her last admission culture. Whereas Zyvox has 100% coverage. So will proceed with po antibiotics at this time with Zyvox for a couple of weeks. Then reassess at the [facility]ound Center. Continue Silver dressing changes to the nonhealing ulcer abdominal wall and vulva involving the mons pubis. If the cellulitis were to worsen and an abscess develops, then she will need operative intervention with incision and drainage and excisional debridement abdominal wall tissue. She has had necrotizing soft tissue infections in the past. If surgery is done, the wound will be left open and postop wound care started with Dakin's dressing changes. She has tried the VAC in the past and had tro uble tolerating it. Anticipate increased metabolic demands from the ulcer and the infection. Prealbumin from 11/15/19 was 7.4. Encourage nutritional supplementation with protein to help the healing process. Patient was informed of the risks and complications of the procedure including alternatives to surgery. These were discussed with the patient personally. Patient voices understanding and wishes to proceed with the current plan of Zyvox antibiotics and close observation. Patient understands that surgery may be necessary. After discharge, followup at the [facility]ound Center. Inpatient E&M: [id number] Init Hosp L2 - ICD-10 - L98.492, N76.6, L03.311, R63.4, I89.0
[2019-11-30 21:45] VITALS: BP 157/100; PULSE 94; RESP 16; TEMP 36.8; O2SAT 99
[2019-11-30 22:00] VITALS: PULSE 94
[2019-12-01] VITALS (8 sets, daily range): BP systolic 157–170; BP diastolic 86–110; PULSE 71–88; RESP 16–20; TEMP 36.6–36.9; O2SAT 96–100
[2019-12-01] MEDS: Morphine 4 MG/ML Syringe IV ×3 (00:05→07:14)
[2019-12-01] MEDS: Mag Hydrox/Al Hydrox/Simeth 30 ML UDC PO (00:05)
[2019-12-01] MEDS: oxyCODONE 5 MG Tablet 10 MG PO (04:40)
[2019-12-01] MEDS: hydrALAZINE 20 MG/ML Vial 10 MG IV ×2 (04:45→19:53)
[2019-12-01] MEDS: 0.9% Normal Saline 1,000 ML 125 ML IV ×3 (06:57→22:41)
--- NOTE | 2019-12-01 07:18 | PCM.PN.HOSP ---
Patient Problems: Active and Suspected Problems (Last Reviewed 10/25/19 @ 11:[address] Lissette Nolasco MD) ERIKA (acute kidney injury) (Acute) Reason for Visit: Anterior abdominal wall cellulitis Subjective: Patient was seen in consultation by both infectious disease as well as plastic surgery. Notes and recommendations from both consult signs reviewed. Patient reports significant pain. Was on morphine switched to Dilaudid Objective: GENERAL: cooperative HEENT: Atraumatic; EYES; Anicteric, Normal Conjunctiva NECK; supple, normal thyroid, RESPIRATORY: Diminished to auscultation CARDIOVASCULAR: Regular S1 S2, GI: Anterior lower abdominal wound with surrounding areas of erythema and warmth : No Renal angle tenderness; EXTREMITIES: No edema, no clubbing, MUSCULOSKELETAL: no muscle waisting NEURO: Awake; no lateralizing signs. SKIN: No Rash PSYCH; Flat affect Vitals/I&O's: Vital Signs Temp Pulse Resp BP Pulse Ox 97.8 F 86 16 170/100 H 100 12/01/19 04:33 12/01/19 04:45 12/01/19 04:33 12/01/19 04:45 12/01/19 04:33 Oxygen Delivery Method Room Air Weight: 92.986 kg Body Mass Index (BMI) 33.0 Intake and Output for Last 24 Hours 11/29/19 11/30/19 12/01/19 23:59 23:59 23:59 Intake Total 1240 / 1240 5292.51 / 5532.51 1240 / 1240 Balance 1240 / 1240 5292.51 / 5532.51 1240 / 1240 Microbiology Past 72 Hours 11/29/19 22:40 Wound - Abdominal Gram Stain - Final 11/29/19 22:40 Wound - Abdominal Wound Culture - Preliminary No growth-Final to follow Current Medications Acetaminophen (Tylenol) 650 mg PO Q6H PRN PRN PRN Reason: Pain Score 1-10/Temp > 100.7 F Last Admin: 11/30/19 22:52 Dose: 650 mg Documented by: Al Hydroxide/Mg Hydroxide (Mylanta Ii) 30 ml PO Q6H PRN PRN PRN Reason: Gastric Burning Last Admin: 12/01/19 00:05 Dose: 30 ml Documented by: Albuterol Sulfate (Ventolin Aerosols) 2.5 mg INHALATION Q2H PRN PRN PRN Reason: Dyspnea, wheezing Enoxaparin Sodium (Lovenox) 40 mg SC DAILY [facility] Last Admin: 11/30/19 10:49 Dose: 40 mg Documented by: Famotidine (Pepcid) 20 mg PO BID [facility] Last Admin: 11/30/19 22:48 Dose: 20 mg Documented by: Ferrous Sulfate (Ferrous Sulfate) 325 mg PO TIDCM [facility] Last Admin: 11/30/19 17:36 Dose: 325 mg Documented by: Guaifenesin (Robitussin) 20 ml PO Q4H PRN PRN PRN Reason: COUGH Hydralazine HCl (Apresoline Iv) 10 mg IV Q4H PRN PRN PRN Reason: SBP > 160 Last Admin: 12/01/19 04:45 Dose: 10 mg Documented by: Sodium Chloride () 1,000 mls @ 125 mls/hr IV .Q8H [facility] Last Admin: 12/01/19 06:57 Dose: 125 mls/hr Documented by: Sodium Chloride () 250 mls @ 15 mls/hr IV .[id number] PRN PRN Reason: Saline Flush Sodium Chloride () 250 mls @ 15 mls/hr IV .[id number] PRN PRN Reason: Additional IVPB Infusion Lactobacillus Acidophilus (Acidophilus) 1 tablet PO BID [facility] Last Admin: 11/30/19 22:48 Dose: 1 tablet Documented by: Linezolid (Zyvox) 600 mg PO BID [facility] Last Admin: 11/30/19 20:47 Dose: 600 mg Documented by: Magnesium Hydroxide (Milk Of Magnesia) 30 ml PO DAILY PRN PRN PRN Reason: Constipation Morphine Sulfate () 4 mg IV Q3H PRN PRN PRN Reason: Pain Score 6-10/10 Last Admin: 12/01/19 07:14 Dose: 4 mg Documented by: Ondansetron HCl (Zofran) 4 mg IV Q6H PRN PRN PRN Reason: NAUSEA/VOMITING Oxycodone HCl (Oxyir) 10 mg PO Q4H PRN PRN PRN Reason: Pain Score 4-5/10 Last Admin: 12/01/19 04:40 Dose: 10 mg Documented by: Prochlorperazine Edisylate (Compazine Iv) 5 mg IV Q4H PRN PRN PRN Reason: Breakthrough nausea/vomiting Last Admin: 11/29/19 23:10 Dose: 5 mg Documented by: Psyllium Hydrophilic Mucilloid (Metamucil) 1 packet PO DAILY PRN PRN PRN Reason: Constipation Senna/Docusate Sodium (Senokot-S, Catrachita-Colace) 2 tablet PO BID PRN PRN PRN Reason: Constipation Sodium Chloride () 10 - 40 ml IV UD PRN PRN Reason: SALINE FLUSH Last Admin: 11/30/19 15:30 Dose: 10 ml Documented by: Tamsulosin HCl (Flomax) 0.4 mg PO DAILY PRN PRN PRN Reason: kidney stones Temazepam (Restoril) 15 mg PO QHS PRN PRN PRN Reason: INSOMNIA Throat Lozenges (Cepacol Sore Throat Lozenge) 1 lozenge MUCOUS MEM Q2H PRN PRN PRN Reason: SORE THROAT STROKE Vital Signs/Narrative: Vital Signs Temp Pulse Resp BP Pulse Ox 12/01/19 04:45 86 170/100 H 12/01/19 04:33 97.8 F 71 16 170/100 H 100 12/01/19 04:00 16 Medical Necessity - Tobacco Use Smoking Status: Never smoker Tobacco Use: Non-smoker, Secondhand Assessment/Plan All Active Problems (Last Reviewed 10/25/19 @ 11:[address] Lissette Nolasco MD) Sepsis (Acute) Cellulitis of labia majora (Acute) Fever (Acute) ERIKA (acute kidney injury) (Acute) Cellulitis of abdominal wall (Acute) Patient is a 34-year-old lady with history of recurrent admissions for abdominal wall cellulitis and wound infection presented with fever with temperature of 101.7 and redness and warmth around her anterior abdominal wound 1. Acute recurrent Infected Chronic Pannicular Wound -Cultures drawn on 11/13/2019 grew staph aureus Streptococcus group B and corynebacterium. Admitted to regular nursing floor started on broad-spectrum antibiotic therapy with consultation placed to plastic surgery as well as infectious disease -12/01/2019 patient was seen in consultation by both infectious disease as well as plastic surgery. Notes and recommendations from both consult signs reviewed.. Patient antibiotics adjusted by infectious disease. Currently on Zyvox based on previous culture. Repeat cultures drawn on admission still pending. Patient reports significant pain. Was on morphine switched to Dilaudid 2. Acute kidney injury ?Baseline creatinine on 11/16/2019 was 0.39 creatinine on admission was 1.28 resuscitated with IV fluids 3. Mild hyponatremia Secondary to hypovolemic hyponatremia resuscitated with IV fluids 4. Acute transaminitis ?Patient liver function test on 11/16/2019 was normal with AST of 15 and ALT of 44. Liver function test on admission demonstrated AST of 191 and ALT of 72. Ordered ultrasound of the right upper quadrant for further evaluation ?12/01/2019. Liver ultrasound did not demonstrate any abnormalities in the visualized structures. Repeat LFTs ordered for a.m. 3. Obesity with BMI of 33.1 ?Patient has undergone gastric bypass losing over 200 pounds patient is on B12 supplementation 6. History of gastric ulcers ?Patient had a recent EGD performed by Dr. Borjas was treated numerous gastric ulcers patient is on PPI 7. Hypertension -Hypertension - Blood pressure controlled, home medications continued with dose adjustment as needed 8. DVT prophylaxis - On enoxaparin Inpatient E&M: [id number] [facility] Hosp L2
[2019-12-01 07:55] LABS: Hematocrit 29.6 % (37-47); Hemoglobin 8.8 g/dL (12.0-15.0); Mean Corp Hgb Conc 29.7 g/dL (32-36); Mean Corpuscular Volume 80.7 fL (81-99); Mean Platelet Vol. 10.3 fl (6.2-12.0); POSITIVE MORPHOLOGY YES; Platelet Count 443 K/mm3 (150-450); RBC Distribution Width SD 60.5 fl (35.1-43.9); Red Blood Count 3.67 M/mm3 (4.2-5.4); White Blood Count 3.5 K/mm3 (4.4-11.0)
[2019-12-01 08:04] LABS: Scan Indicated on CBC? Y/N YES- FLAGS NOTED
[2019-12-01 08:12] LABS: Anion Gap 6 (5-15); BUN 5 mg/dL (7-18); BUN/Creat Ratio 9.7 RATIO (10-20); Calcium,Total 8.4 mg/dL (8.5-10.1); Chloride 109 mmol/L (98-107); Creatinine, Serum 0.52 mg/dL (0.55-1.02); EST Glomerular Filtration Rate 145 mL/min (>60); Est Glom Filt Rate - Afr Amer 175 mL/min (>60); Estimated Creatinine Clearance 144.05 ml/min; Glucose 89 mg/dL (74-106); Magnesium 2.1 mg/dL (1.6-2.6); Potassium 3.5 mmol/L (3.5-5.1); Sodium Level 140 mmol/L (136-145)
[2019-12-01 08:35] LABS: Differential Comment SCANNED
--- NOTE | 2019-12-01 09:07 | PCM.PN.SRG ---
Patient Problems: Active and Suspected Problems (Last Reviewed 10/25/19 @ 11:[address] Lissette Nolasco MD) Cellulitis of abdominal wall (Acute) Subjective: Patient is sitting up in bed. She states she having pain along her lower abdomen where the cellulitis is located. - Physical Exam Vitals/I&O's: Vital Signs Temp Pulse Resp BP Pulse Ox 97.8 F 86 16 170/100 H 96 12/01/19 04:33 12/01/19 04:45 12/01/19 04:33 12/01/19 04:45 12/01/19 07:04 Oxygen Delivery Method Room Air Weight: 204 lb 15.984 oz Body Mass Index (BMI) 33.0 Intake and Output for Last 24 Hours 11/29/19 11/30/19 12/01/19 23:59 23:59 23:59 Intake Total 1240 / 1240 5292.51 / 5532.51 1240 / 1240 Balance 1240 / 1240 5292.51 / 5532.51 1240 / 1240 General: Alert, Oriented x3, Cooperative HEENT: Atraumatic Oral: Moist Mucosa Lungs: Normal air movement Cardiovascular: Regular rate Abdomen: Tender - Tenderness is located on the skin where the redness is Extremities: No edema Skin: - - Lower right and mid abomen with fading redness. It is marked with a pen and there is less redness than when previously marked. Are is tender to light palpation. Musculoskeletal: Tenderness Neurological: Cranial nerves II-XII grossly intact Psych/Mental Status: Normal Affect, Appropriate Microbiology Past 72 Hours 11/29/19 22:40 Wound - Abdominal Gram Stain - Final 11/29/19 22:40 Wound - Abdominal Wound Culture - Preliminary No growth-Final to follow Laboratory Results 12/01/19 07:40: WBC 3.5 L, RBC 3.67 L, Hgb 8.8 L, Hct 29.6 L, MCV 80.7 L, MCH 24.0 L, MCHC 29.7 L, RDW Std Deviation 60.5 H, RDW Coeff of Andrez 21.0 H, Plt Count 443, MPV 10.3, Differential Comment SCANNED 12/01/19 07:40: Sodium 140, Potassium 3.5, Chloride 109 H, Carbon Dioxide 25.0, Anion Gap 6, BUN 5 L, Creatinine 0.52 L, Estim Creat Clear Calc 144.05, Est GFR (MDRD) Af Amer 175, Est GFR (MDRD) Non-Af 145, BUN/Creatinine Ratio 9.7 L, Glucose 89, Calcium 8.4 L, Magnesium 2.1 Current Medications Acetaminophen (Tylenol) 650 mg PO Q6H PRN PRN PRN Reason: Pain Score 1-10/Temp > 100.7 F Last Admin: 11/30/19 22:52 Dose: 650 mg Documented by: Al Hydroxide/Mg Hydroxide (Mylanta Ii) 30 ml PO Q6H PRN PRN PRN Reason: Gastric Burning Last Admin: 12/01/19 00:05 Dose: 30 ml Documented by: Albuterol Sulfate (Ventolin Aerosols) 2.5 mg INHALATION Q2H PRN PRN PRN Reason: Dyspnea, wheezing Enoxaparin Sodium (Lovenox) 40 mg SC DAILY [facility] Last Admin: 11/30/19 10:49 Dose: 40 mg Documented by: Famotidine (Pepcid) 20 mg PO BID [facility] Last Admin: 11/30/19 22:48 Dose: 20 mg Documented by: Ferrous Sulfate (Ferrous Sulfate) 325 mg PO TIDCM [facility] Last Admin: 11/30/19 17:36 Dose: 325 mg Documented by: Guaifenesin (Robitussin) 20 ml PO Q4H PRN PRN PRN Reason: COUGH Hydralazine HCl (Apresoline Iv) 10 mg IV Q4H PRN PRN PRN Reason: SBP > 160 Last Admin: 12/01/19 04:45 Dose: 10 mg Documented by: Hydromorphone HCl (Dilaudid Inj) 1 mg IV Q3H PRN PRN PRN Reason: Pain Score 6-10/10 Sodium Chloride () 1,000 mls @ 125 mls/hr IV .Q8H [facility] Last Admin: 12/01/19 06:57 Dose: 125 mls/hr Documented by: Sodium Chloride () 250 mls @ 15 mls/hr IV .[id number] PRN PRN Reason: Saline Flush Sodium Chloride () 250 mls @ 15 mls/hr IV .[id number] PRN PRN Reason: Additional IVPB Infusion Lactobacillus Acidophilus (Acidophilus) 1 tablet PO BID [facility] Last Admin: 11/30/19 22:48 Dose: 1 tablet Documented by: Linezolid (Zyvox) 600 mg PO BID [facility] Last Admin: 11/30/19 20:47 Dose: 600 mg Documented by: Magnesium Hydroxide (Milk Of Magnesia) 30 ml PO DAILY PRN PRN PRN Reason: Constipation Ondansetron HCl (Zofran) 4 mg IV Q6H PRN PRN PRN Reason: NAUSEA/VOMITING Oxycodone HCl (Oxyir) 10 mg PO Q4H PRN PRN PRN Reason: Pain Score 4-5/10 Last Admin: 12/01/19 04:40 Dose: 10 mg Documented by: Prochlorperazine Edisylate (Compazine Iv) 5 mg IV Q4H PRN PRN PRN Reason: Breakthrough nausea/vomiting Last Admin: 11/29/19 23:10 Dose: 5 mg Documented by: Psyllium Hydrophilic Mucilloid (Metamucil) 1 packet PO DAILY PRN PRN PRN Reason: Constipation Senna/Docusate Sodium (Senokot-S, Catrachita-Colace) 2 tablet PO BID PRN PRN PRN Reason: Constipation Sodium Chloride () 10 - 40 ml IV UD PRN PRN Reason: SALINE FLUSH Last Admin: 11/30/19 15:30 Dose: 10 ml Documented by: Tamsulosin HCl (Flomax) 0.4 mg PO DAILY PRN PRN PRN Reason: kidney stones Temazepam (Restoril) 15 mg PO QHS PRN PRN PRN Reason: INSOMNIA Throat Lozenges (Cepacol Sore Throat Lozenge) 1 lozenge MUCOUS MEM Q2H PRN PRN PRN Reason: SORE THROAT Medical Necessity - Tobacco Use Smoking Status: Never smoker Tobacco Use: Non-smoker, Secondhand Assessment/Plan All Active Problems (Last Reviewed 10/25/19 @ 11:[address] Lissette Nolasco MD) Sepsis (Acute) Cellulitis of labia majora (Acute) Fever (Acute) ERIKA (acute kidney injury) (Acute) Cellulitis of abdominal wall (Acute) 1. Nonhealing ulcer abdominal wall and vulva involving the mons pubis with surrounding cellulitis. 2. 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 3. 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 PLAN Continue Zyvox. The preliminary wound culture is Gram positive organism. Will wait for the final culture which may necessitate antibiotic modification. Continue Silver dressing changes to the nonhealing ulcer abdominal wall and vulva involving the mons pubis. If the cellulitis were to worsen and an abscess develops, then she will need operative intervention with incision and drainage and excisional debridement abdominal wall tissue. She has had necrotizing soft tissue infections in the past. Will continue to monitor closely. Prealbumin 7.4 from 11/15/19. Recommend nutritional supplementation and increase protein. She may need a nutritional consult to help her find ways to increase her protein intake due to her previous gastric bypass and she is not able to drink large volumes of fluid. After discharge, followup at the [facility]ound Center on December 11, 2019. She will need to make an appointment for that day. Inpatient E&M: [id number] [facility] Hosp L1
[2019-12-01] MEDS: 0.9% Saline Lock 10 ML Syringe IV ×2 (09:49→16:18)
[2019-12-01] MEDS: Ferrous Sulfate 325 MG Tablet PO ×3 (09:50→16:22)
[2019-12-01] MEDS: HYDROmorphone 1 MG/ML Syringe IV ×5 (09:50→22:41)
[2019-12-01] MEDS: Enoxaparin 40 MG/0.4 ML Syringe SC (09:50)
[2019-12-01] MEDS: Famotidine 20 MG Tablet PO ×2 (09:51→21:28)
[2019-12-01] MEDS: Linezolid 600 MG Tablet PO ×2 (09:51→21:28)
[2019-12-01] MEDS: Lisinopril 40 MG Tablet PO ×2 (09:56→21:28)
--- NOTE | 2019-12-01 13:14 | PN.ID_ITS ---
Patient Problems: Active and Suspected Problems (Last Reviewed 10/25/19 @ 11:[address] Lissette Nolasco MD) ERIKA (acute kidney injury) (Acute) Subjective: Still having pain, no fever, redness improved - Physical Exam Vitals/I&O's: Vital Signs Temp Pulse Resp BP Pulse Ox 98.4 F 82 20 H 166/86 H 100 12/01/19 09:33 12/01/19 09:33 12/01/19 09:33 12/01/19 09:33 12/01/19 09:33 Oxygen Delivery Method Room Air Weight: 92.986 kg Body Mass Index (BMI) 33.0 Intake and Output for Last 24 Hours 11/29/19 11/30/19 12/01/19 23:59 23:59 23:59 Intake Total 1240 / 1240 5292.51 / 5532.51 1740 / 1740 Balance 1240 / 1240 5292.51 / 5532.51 1740 / 1740 General: Alert, Cooperative, No apparent distress Cardiovascular: Regular rate, Regular Rhythm Abdomen: Soft, Non Tender, Non-Distended Skin: Ulcer/ Wound - surrounding redness better Microbiology Past 72 Hours 11/29/19 22:40 Wound - Abdominal Gram Stain - Final 11/29/19 22:40 Wound - Abdominal Wound Culture - Preliminary Gram positive organism Laboratory Results 12/01/19 07:40: WBC 3.5 L, RBC 3.67 L, Hgb 8.8 L, Hct 29.6 L, MCV 80.7 L, MCH 24.0 L, MCHC 29.7 L, RDW Std Deviation 60.5 H, RDW Coeff of Andrez 21.0 H, Plt Count 443, MPV 10.3, Differential Comment SCANNED 12/01/19 07:40: Sodium 140, Potassium 3.5, Chloride 109 H, Carbon Dioxide 25.0, Anion Gap 6, BUN 5 L, Creatinine 0.52 L, Estim Creat Clear Calc 144.05, Est GFR (MDRD) Af Amer 175, Est GFR (MDRD) Non-Af 145, BUN/Creatinine Ratio 9.7 L, Glucose 89, Calcium 8.4 L, Magnesium 2.1 Current Medications Acetaminophen (Tylenol) 650 mg PO Q6H PRN PRN PRN Reason: Pain Score 1-10/Temp > 100.7 F Last Admin: 11/30/19 22:52 Dose: 650 mg Documented by: Al Hydroxide/Mg Hydroxide (Mylanta Ii) 30 ml PO Q6H PRN PRN PRN Reason: Gastric Burning Last Admin: 12/01/19 00:05 Dose: 30 ml Documented by: Albuterol Sulfate (Ventolin Aerosols) 2.5 mg INHALATION Q2H PRN PRN PRN Reason: Dyspnea, wheezing Enoxaparin Sodium (Lovenox) 40 mg SC DAILY [facility] Last Admin: 12/01/19 09:50 Dose: 40 mg Documented by: Famotidine (Pepcid) 20 mg PO BID [facility] Last Admin: 12/01/19 09:51 Dose: 20 mg Documented by: Ferrous Sulfate (Ferrous Sulfate) 325 mg PO TIDCM [facility] Last Admin: 12/01/19 13:05 Dose: 325 mg Documented by: Guaifenesin (Robitussin) 20 ml PO Q4H PRN PRN PRN Reason: COUGH Hydralazine HCl (Apresoline Iv) 10 mg IV Q4H PRN PRN PRN Reason: SBP > 160 Last Admin: 12/01/19 04:45 Dose: 10 mg Documented by: Hydromorphone HCl (Dilaudid Inj) 1 mg IV Q3H PRN PRN PRN Reason: Pain Score 6-10/10 Last Admin: 12/01/19 13:03 Dose: 1 mg Documented by: Sodium Chloride () 1,000 mls @ 125 mls/hr IV .Q8H [facility] Last Admin: 12/01/19 06:57 Dose: 125 mls/hr Documented by: Sodium Chloride () 250 mls @ 15 mls/hr IV .[id number] PRN PRN Reason: Saline Flush Sodium Chloride () 250 mls @ 15 mls/hr IV .[id number] PRN PRN Reason: Additional IVPB Infusion Lactobacillus Acidophilus (Acidophilus) 1 tablet PO BID [facility] Last Admin: 12/01/19 09:50 Dose: 1 tablet Documented by: Linezolid (Zyvox) 600 mg PO BID [facility] Last Admin: 12/01/19 09:51 Dose: 600 mg Documented by: Lisinopril (Zestril) 40 mg PO BID [facility] Last Admin: 09/11/20 09:56 Dose: 40 mg Documented by: Magnesium Hydroxide (Milk Of Magnesia) 30 ml PO DAILY PRN PRN PRN Reason: Constipation Ondansetron HCl (Zofran) 4 mg IV Q6H PRN PRN PRN Reason: NAUSEA/VOMITING Oxycodone HCl (Oxyir) 10 mg PO Q4H PRN PRN PRN Reason: Pain Score 4-5/10 Last Admin: 12/01/19 04:40 Dose: 10 mg Documented by: Prochlorperazine Edisylate (Compazine Iv) 5 mg IV Q4H PRN PRN PRN Reason: Breakthrough nausea/vomiting Last Admin: 11/29/19 23:10 Dose: 5 mg Documented by: Psyllium Hydrophilic Mucilloid (Metamucil) 1 packet PO DAILY PRN PRN PRN Reason: Constipation Senna/Docusate Sodium (Senokot-S, Catrachita-Colace) 2 tablet PO BID PRN PRN PRN Reason: Constipation Sodium Chloride () 10 - 40 ml IV UD PRN PRN Reason: SALINE FLUSH Last Admin: 12/01/19 09:49 Dose: 10 ml Documented by: Tamsulosin HCl (Flomax) 0.4 mg PO DAILY PRN PRN PRN Reason: kidney stones Temazepam (Restoril) 15 mg PO QHS PRN PRN PRN Reason: INSOMNIA Throat Lozenges (Cepacol Sore Throat Lozenge) 1 lozenge MUCOUS MEM Q2H PRN PRN PRN Reason: SORE THROAT Medical Necessity - Tobacco Use Smoking Status: Never smoker Tobacco Use: Non-smoker, Secondhand Route of nutrition/ use of supplements: [] Nutritional Intake: [] IV Site: [] Adhikari Catheter: [] - Assessment/Plan Antibiotics: [] Assessment/Plan: [] Active and Suspected Problems (Last Reviewed 10/25/19 @ 11:[address] Lissette Nolasco MD) ERIKA (acute kidney injury) (Acute) Recurrent lower abd cellulitis/wound infection/panniculitis - recurrent cxs with mssa, strep, and diphtheroids. Not responding to multiple courses of clinda. Has also grown PsA in the past. Staph aureus pcr neg here. Wound cx with gram pos. Redness improved. Plan on 2 week total course of po linezolid; wrote rx, ok for d/c home once pain is able to be controlled. Will hold elavil while on linezolid. Will follow
--- NOTE | 2019-12-01 13:55 | CASEMGMT ---
Addendum entered by Raman Garnica 12/01/19 15:02: Call placed back to [facility] Prior auth dept and spoke w/Arpita. Per Arpita, Linezolid has been approved. Call placed to [facility] and spoke w/Yodit. She was made aware prior auth for Linezolid has been obtained and hernández check completed at this time. Per Yodit, there is a $0 co-pay. Pt made aware and voices appreciation. She denies having other discharge needs or concerns. Arabella GIFFORD RN, CM Original Note: RICARDO BECKFORD NOTE: Plan is for pt to discharge home on Linezolid and Dr Renee has e-scribed this to [facility]. Call placed to [facility] and spoke w/Bertrand. Per Bertrand, prior-auth is required. Call placed to prior auth # @ and spoke with Priti. Prior Authorization initiated. Prior auth #: [id number]. Awaiting approval. Arabella GIFFORD RN CM
--- NOTE | 2019-12-01 17:05 | NURSING ---
Walking in justice at this time.
[2019-12-02 01:48] VITALS: BP 160/96; PULSE 86; RESP 18; TEMP 36.8; O2SAT 99
[2019-12-02 02:00] VITALS: PULSE 88
[2019-12-02] MEDS: hydrALAZINE 20 MG/ML Vial 10 MG IV ×2 (02:00→05:56)
[2019-12-02] MEDS: HYDROmorphone 1 MG/ML Syringe IV ×2 (02:00→05:42)
[2019-12-02] MEDS: Acetaminophen 325 MG Tablet 650 MG PO (03:32)
[2019-12-02 05:35] LABS: Hematocrit 28.9 % (37-47); Hemoglobin 8.8 g/dL (12.0-15.0); Mean Corp Hgb Conc 30.4 g/dL (32-36); Mean Corpuscular Hgb 23.7 pg (27.0-32.0); Mean Corpuscular Volume 77.9 fL (81-99); Mean Platelet Vol. 10.3 fl (6.2-12.0); POSITIVE MORPHOLOGY YES; Platelet Count 476 K/mm3 (150-450); RBC Distribution Width SD 58.9 fl (35.1-43.9); Red Blood Count 3.71 M/mm3 (4.2-5.4); White Blood Count 4.4 K/mm3 (4.4-11.0)
[2019-12-02] MEDS: 0.9% Normal Saline 1,000 ML 125 ML IV (05:43)
[2019-12-02 05:47] LABS: Scan Indicated on CBC? Y/N YES- FLAGS NOTED
[2019-12-02 05:56] VITALS: PULSE 89
[2019-12-02 06:51] LABS: Anion Gap 5 (5-15); BUN 6 mg/dL (7-18); BUN/Creat Ratio 10.2 RATIO (10-20); Calcium,Total 8.1 mg/dL (8.5-10.1); Chloride 111 mmol/L (98-107); Creatinine, Serum 0.59 mg/dL (0.55-1.02); EST Glomerular Filtration Rate 125 mL/min (>60); Est Glom Filt Rate - Afr Amer 151 mL/min (>60); Estimated Creatinine Clearance 126.96 ml/min; Glucose 81 mg/dL (74-106); Sodium Level 140 mmol/L (136-145)
[2019-12-02 07:20] VITALS: O2SAT 98
--- NOTE | 2019-12-02 09:31 | PCM.DC ---
- Discharge Diagnoses Current Active Problems: Current Active and Chronic Problems (Last Reviewed 10/25/19 @ 11:[address] Lissette Nolasco MD) Cellulitis of abdominal wall (Acute) You will use the following diet at home:: No restrictions Your food should be the consistency of: Regular Discharge Activity: Return to Normal Activity, May not drive while taking narcotic pain medications. Allergies/Adverse Reactions: Allergies methocarbamol Allergy (Verified 11/29/19 17:08) Chest tightness gabapentin Adverse Reaction (Verified 11/29/19 17:08) abnormal gait ketorolac tromethamine [From Toradol] Adverse Reaction (Verified 11/29/19 17:08) Upset Stomach NSAIDS (Non-Steroidal Anti-Inflamma Adverse Reaction (Verified 11/29/19 17:08) gastric bipass not supposed to take tramadol Adverse Reaction (Verified 11/29/19 17:08) Upset Stomach Medications to take at Discharge Ergocalciferol [Vitamin D] 50,000 unit PO TH 04/30/17 Tamsulosin HCl [Flomax] 0.4 mg PO DAILY PRN 04/30/17 Lisinopril [Zestril] 40 mg PO BID 05/30/17 Cyanocobalamin [Vitamin B12] 1,000 mcg IM Q30D 07/06/17 Ondansetron [Zofran Odt] 4 mg PO 4X/DAY PRN PRN #30 tab 03/16/19 Amitriptyline HCl 50 mg PO QHS PRN PRN 11/29/19 Ferrous Sulfate 325 mg PO TIDCM 11/29/19 Hydrocodone/Acetaminophen [Hydrocodone-Acetamin 5-325 mg] 1 tab PO Q6H PRN PRN 11/29/19 Lactobacillus Acidophilus [Acidophilus] 1 tab PO BID 11/29/19 Linezolid [Zyvox] 600 mg PO BID #26 tab 12/01/19 The following prescriptions were given: Linezolid [Zyvox] 600 mg PO BID #26 tab Transmission Status: Received by DANISH ALCARAZ-1953 [facility] Primary Care Physician: Bethel Jauregui III, MD [Primary Care Provider] - Please follow up with your Primary Care Physician in: 1 to 2 weeks Test Results: Test results from this visit will be discussed in further detail at your follow-up appointment, if applicable. Please Follow Up With: Gigi Mendieta MD When: in 1-2 weeks Proposed Discharge Date: 12/02/19
--- NOTE | 2019-12-02 09:34 | DS.PCM_ITS ---
Discharge Date and Diagnosis - Problem List Patient Problems: Active and Suspected Problems (Last Reviewed 10/25/19 @ 11:[address] Lissette Nolasco MD) Cellulitis of abdominal wall (Acute) Date of Admission: 11/29/19 Date of Discharge: 12/02/19 - Primary Discharge Diagnosis Acute Problems: Active Problems (Last Reviewed 10/25/19 @ 11:[address] Lissette Nolasco MD) Cellulitis of abdominal wall (Acute) - Secondary Discharge Diagnosis Chronic Problems: Chronic Problems (Last Reviewed 10/25/19 @ 11:[address] 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) Nonhealing surgical wound (Chronic) umbilical wound Other complications of skin graft (allograft) (autograft) (Chronic) Vulvar ulceration (Chronic) Lymphedema of genitalia (Chronic) Intertrigo (Chronic) abdominal wall skin crease intertrigo Localized adiposity (Chronic) 8 cm painful soft tissue mass pubic area Excessive body weight loss (Chronic) 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 Summary of Care Provided: The patient is a 34-year-old lady with history of recurrent admissions for abdominal wall cellulitis and wound infection presented with fever with temperature of 101.7 and redness and warmth around her anterior abdominal wound 1. Acute recurrent Infected Chronic Pannicular Wound -Cultures drawn on 11/13/2019 grew staph aureus Streptococcus group B and corynebacterium. Admitted to regular nursing floor started on broad-spectrum antibiotic therapy with consultation placed to plastic surgery as well as infectious disease -12/01/2019 patient was seen in consultation by both infectious disease as well as plastic surgery. Notes and recommendations from both consult signs reviewed.. Patient antibiotics adjusted by infectious disease. Currently on Zyvox based on previous culture. Repeat cultures drawn on admission still pending. Patient reports significant pain. Was on morphine switched to Dilaudid -Patient was discharged home on Zyvox total of 2 weeks. She was instructed not to take her amitriptyline while on Zyvox 2. Acute kidney injury ?Baseline creatinine on 11/16/2019 was 0.39 creatinine on admission was 1.28 resuscitated with IV fluids 3. Mild hyponatremia Secondary to hypovolemic hyponatremia resuscitated with IV fluids 4. Acute transaminitis ?Patient liver function test on 11/16/2019 was normal with AST of 15 and ALT of 44. Liver function test on admission demonstrated AST of 191 and ALT of 72. Ordered ultrasound of the right upper quadrant for further evaluation ?12/01/2019. Liver ultrasound did not demonstrate any abnormalities in the vi sualized structures. 3. Obesity with BMI of 33.1 ?Patient has undergone gastric bypass losing over 200 pounds patient is on B12 supplementation 6. History of gastric ulcers ?Patient had a recent EGD performed by Dr. Borjas was treated numerous gastric ulcers patient is on PPI 7. Hypertension -Hypertension - Blood pressure controlled, home medications continued with dose adjustment as needed 8. DVT prophylaxis - On enoxaparin Patient Problems: Active and Suspected Problems (Last Reviewed 10/25/19 @ 11:[address] Lissette Nolasco MD) Cellulitis of abdominal wall (Acute) - Physical Exam Vitals/I&O's: Vital Signs Temp Pulse Resp BP Pulse Ox 98.3 F 89 18 160/96 H 98 12/02/19 01:48 12/02/19 05:56 12/02/19 01:48 12/02/19 01:48 12/02/19 07:20 Oxygen Delivery Method Room Air Weight: 92.986 kg Body Mass Index (BMI) 33.0 Intake and Output for Last 24 Hours 11/30/19 12/01/19 12/02/19 23:59 23:59 23:59 Intake Total 5292.51 / 5532.51 3893.75 / 3893.75 879.17 / 879.17 Balance 5292.51 / 5532.51 3893.75 / 3893.75 879.17 / 879.17 General: Alert HEENT: Atraumatic Neck: Supple Neurological: Neuro grossly intact Psych/Mental Status: Normal Affect Microbiology Past 72 Hours 11/29/19 22:40 Wound - Abdominal Gram Stain - Final 11/29/19 22:40 Wound - Abdominal Wound Culture - Preliminary Gram positive organism Laboratory Results 12/02/19 05:05: WBC 4.4, RBC 3.71 L, Hgb 8.8 L, Hct 28.9 L, MCV 77.9 L, MCH 23.7 L, MCHC 30.4 L, RDW Std Deviation 58.9 H, RDW Coeff of Andrez 21.0 H, Plt Count 476 H, MPV 10.3, Differential Comment COMMENT 12/02/19 05:05: Sodium 140, Potassium TNP, Chloride 111 H, Carbon Dioxide 24.0, Anion Gap 5, BUN 6 L, Creatinine 0.59, Estim Creat Clear Calc 126.96, Est GFR (MDRD) Af Amer 151, Est GFR (MDRD) Non-Af 125, BUN/Creatinine Ratio 10.2, Glucose 81, Calcium 8.1 L, Total Bilirubin Cancelled, Direct Bilirubin Cancelled, AST Cancelled, ALT Cancelled, Alkaline Phosphatase Cancelled, Total Protein Cancelled, Albumin Cancelled, Globulin Cancelled 12/02/19 09:10: Total Bilirubin Pending, Direct Bilirubin Pending, AST Pending, ALT Pending, Alkaline Phosphatase Pending, Total Protein Pending, Albumin Pendin g Current Medications Acetaminophen (Tylenol) 650 mg PO Q6H PRN PRN PRN Reason: Pain Score 1-10/Temp > 100.7 F Last Admin: 12/02/19 03:32 Dose: 650 mg Documented by: Al Hydroxide/Mg Hydroxide (Mylanta Ii) 30 ml PO Q6H PRN PRN PRN Reason: Gastric Burning Last Admin: 12/01/19 00:05 Dose: 30 ml Documented by: Albuterol Sulfate (Ventolin Aerosols) 2.5 mg INHALATION Q2H PRN PRN PRN Reason: Dyspnea, wheezing Enoxaparin Sodium (Lovenox) 40 mg SC DAILY [facility] Last Admin: 12/01/19 09:50 Dose: 40 mg Documented by: Famotidine (Pepcid) 20 mg PO BID [facility] Last Admin: 12/01/19 21:28 Dose: 20 mg Documented by: Ferrous Sulfate (Ferrous Sulfate) 325 mg PO TIDCM [facility] Last Admin: 12/01/19 16:22 Dose: 325 mg Documented by: Guaifenesin (Robitussin) 20 ml PO Q4H PRN PRN PRN Reason: COUGH Hydralazine HCl (Apresoline Iv) 10 mg IV Q4H PRN PRN PRN Reason: SBP > 160 Last Admin: 12/02/19 05:56 Dose: 10 mg Documented by: Hydromorphone HCl (Dilaudid Inj) 1 mg IV Q3H PRN PRN PRN Reason: Pain Score 6-10/10 Last Admin: 12/02/19 05:42 Dose: 1 mg Documented by: Sodium Chloride () 1,000 mls @ 125 mls/hr IV .Q8H [facility] Last Admin: 12/02/19 05:43 Dose: 125 mls/hr Documented by: Sodium Chloride () 250 mls @ 15 mls/hr IV .[id number] PRN PRN Reason: Saline Flush Sodium Chloride () 250 mls @ 15 mls/hr IV .[id number] PRN PRN Reason: Additional IVPB Infusion Lactobacillus Acidophilus (Acidophilus) 1 tablet PO BID [facility] Last Admin: 12/01/19 21:28 Dose: 1 tablet Documented by: Linezolid (Zyvox) 600 mg PO BID [facility] Last Admin: 12/01/19 21:28 Dose: 600 mg Documented by: Lisinopril (Zestril) 40 mg PO BID [facility] Last Admin: 12/01/19 21:28 Dose: 40 mg Documented by: Magnesium Hydroxide (Milk Of Magnesia) 30 ml PO DAILY PRN PRN PRN Reason: Constipation Ondansetron HCl (Zofran) 4 mg IV Q6H PRN PRN PRN Reason: NAUSEA/VOMITING Oxycodone HCl (Oxyir) 10 mg PO Q4H PRN PRN PRN Reason: Pain Score 4-5/10 Last Admin: 12/01/19 04:40 Dose: 10 mg Documented by: Prochlorperazine Edisylate (Compazine Iv) 5 mg IV Q4H PRN PRN PRN Reason: Breakthrough nausea/vomiting Last Admin: 11/29/19 23:10 Dose: 5 mg Documented by: Psyllium Hydrophilic Mucilloid (Metamucil) 1 packet PO DAILY PRN PRN PRN Reason: Constipation Senna/Docusate Sodium (Senokot-S, Catrachita-Colace) 2 tablet PO BID PRN PRN PRN Reason: Constipation Sodium Chloride () 10 - 40 ml IV UD PRN PRN Reason: SALINE FLUSH Last Admin: 12/01/19 16:18 Dose: 10 ml Documented by: Tamsulosin HCl (Flomax) 0.4 mg PO DAILY PRN PRN PRN Reason: kidney stones Temazepam (Restoril) 15 mg PO QHS PRN PRN PRN Reason: INSOMNIA Throat Lozenges (Cepacol Sore Throat Lozenge) 1 lozenge MUCOUS MEM Q2H PRN PRN PRN Reason: SORE THROAT Discharge Diet: No Restrictions Discharge Activity: Return to Normal Activity, May not drive while taking narcotic pain medications. Home Medications: Medications to take at Discharge Ergocalciferol [Vitamin D] 50,000 unit PO TH 04/30/17 Tamsulosin HCl [Flomax] 0.4 mg PO DAILY PRN 04/30/17 Lisinopril [Zestril] 40 mg PO BID 05/30/17 Cyanocobalamin [Vitamin B12] 1,000 mcg IM Q30D 07/06/17 Ondansetron [Zofran Odt] 4 mg PO 4X/DAY PRN PRN #30 tab 03/16/19 Amitriptyline HCl 50 mg PO QHS PRN PRN 11/29/19 Ferrous Sulfate 325 mg PO TIDCM 11/29/19 Hydrocodone/Acetaminophen [Hydrocodone-Acetamin 5-325 mg] 1 tab PO Q6H PRN PRN 11/29/19 Lactobacillus Acidophilus [Acidophilus] 1 tab PO BID 11/29/19 Linezolid [Zyvox] 600 mg PO BID #26 tab 12/01/19 Following Prescriptions Were Given to Patient: Linezolid [Zyvox] 600 mg PO BID #26 tab Transmission Status: Received by DANISH ALCARAZ-1953 [facility] Primary Care Physician: Bethel Jauregui III, MD [Primary Care Provider] - Please follow up with your Primary Care Physician in: 1 to 2 weeks Please Follow Up With: Gigi Mendieta MD When: in 1-2 weeks Disposition: Home Minutes spent on discharge:: 35 Patient Condition:: Stable Medical Necessity - Tobacco Use Smoking Status: Never smoker Tobacco Use: Non-smoker, Secondhand Meaningful Use Info Meaningful Use Diagnoses (Choose all that apply): None applicable Inpatient E&M: 82887 Disch Hosp
[2019-12-02 09:45] VITALS: PULSE 110; RESP 20; TEMP 36.8; O2SAT 99
[2019-12-02] MEDS: Lisinopril 40 MG Tablet PO (09:48)
[2019-12-02] MEDS: Linezolid 600 MG Tablet PO (09:48)
[2019-12-02] MEDS: Famotidine 20 MG Tablet PO (09:48)
[2019-12-02] MEDS: Ferrous Sulfate 325 MG Tablet PO (09:48)
--- NOTE | 2019-12-02 10:01 | NURSING ---
Scheduled Lisinopril given but with BP being so high, This nurse informed pt to stay for an hour so that this nurse can recheck bp and make sure it goes down. Pt got agitated, raised voice and stated she was refusing to stay. Pt already called her ride and told her mom to come pick her up. this nurse attempted to explain importance of staying to monitor BP to make sure it goes down. Pt continues to be agitated and refusing. Also refusing Apresoline. I just want to go home. Dr. Shipman aware of the above mentioned.
[2019-12-02 10:04] LABS: AST(SGOT) 41 U/L (15-37); Alanine Aminotransfer ALT/SGPT 41 U/L (13-56); Albumin, Serum 2.7 g/dL (3.2-5.0); Alkaline Phosphatase 161 U/L (45-117); Bilirubin, Direct < 0.05 mg/dL (0.00-0.30); Globulin 3.8 g/dL (2.2-4.2); Protein, Total 6.5 g/dL (6.4-8.2)
--- NOTE | 2019-12-05 12:01 | CASEMGMT ---
RICARDO BECKFORD Discharge Follow-up Phone Call: MELBA: 13 Strata: 3 Call Date: 12/05/19 Discharge Date: 12/02/19 Time of Call: 1200 Duration: 3 min Admitting Diagnosis: Lower abdominal wall cellulitis, infected ulcer RICARDO BECKFORD completed follow-up phone call after recent hospitalization. Patient states that she is still sore but over all doing ok. Patient had no questions or concerns regarding discharge instructions. Patient inquired about work excuse and instructed to follow-up with Dr. Mendieta's office. Patient states that she was able to fill prescriptions without any issues. Patient has virtual visit to be rescheduled with PCP and will be calling the wound center to schedule appointment. Patient had no further questions or concerns at this time.
== END 2019-12-02 10:24 | disposition home or self-care (01) | DRG 383 ==
LOC: ED 17:42 → MS3 20:41
PROVIDERS: Admitting Provider Family Medicine; Emergency Provider Emergency Medicine; PCP Family Medicine; Visit Provider Internal Medicine
DX: L03.311 Cellulitis of abdominal wall (principal); N17.9 Acute kidney failure, unspecified; R74.0 Nonspecific elevation of levels of transaminase and lactic acid dehydrogenase [LDH]; E87.1 Hypo-osmolality and hyponatremia; D50.9 Iron deficiency anemia, unspecified; M79.3 Panniculitis, unspecified; I10 Essential (primary) hypertension; A49.01 Methicillin susceptible Staphylococcus aureus infection, unspecified site; E78.5 Hyperlipidemia, unspecified; E66.9 Obesity, unspecified; I89.0 Lymphedema, not elsewhere classified; K21.9 Gastro-esophageal reflux disease without esophagitis; E86.1 Hypovolemia; Z87.11 Personal history of peptic ulcer disease; Z68.33 Body mass index [BMI] 33.0-33.9, adult; Z80.0 Family history of malignant neoplasm of digestive organs; Z81.8 Family history of other mental and behavioral disorders; Z82.49 Family history of ischemic heart disease and other diseases of the circulatory system; Z83.2 Family history of diseases of the blood and blood-forming organs and certain disorders involving the immune mechanism; Z83.3 Family history of diabetes mellitus; Z87.442 Personal history of urinary calculi; Z90.49 Acquired absence of other specified parts of digestive tract; Z98.84 Bariatric surgery status
CPT/HCPCS: 36415; 74177; 76705; 80048; 80053; 80076; 81001; 83605; 83735; 85025; 85027; 87040; 87070; 87205; 87640; 97802; 99251; 99285; J7030; Q9967; A4216; G0463; J2405

== ENCOUNTER 2020-01-23 06:26 | Emergency (ER) | payer MEDICAID, SELFPAY ==
[2019-11-29 21:14] VITALS: BMI 33.0
[2020-01-23 06:27] VITALS: BP 183/106; PULSE 124; RESP 18; TEMP 36.9; O2SAT 99; BMI 31.4
[2020-01-23 06:46] VITALS: BP 150/108; PULSE 109; RESP 18; O2SAT 99
--- NOTE | 2020-01-23 07:19 | ED.VISSUMM ---
- ER Visit Summary Date of Service: 01/23/20 Chief Complaint: Abdominal pain, nausea, vomiting History of Present Illness: The patient is a 35 F who presents with abdominal pain, nausea, and vomiting that is been getting worse over the past 2 days. Patient states she has been taking Zofran at home which only helps somewhat. Patient states she is unable to keep anything down. Patient states her pain is over the epigastric area. Patient states she has a history of peptic ulcer disease and states this feels similar to that. Patient is on Carafate and Protonix. Patient states she is unable to keep any of this down. Patient denies any radiation of the pain to her back. Patient also admits to an open wound over her lower abdomen. Patient had states she is having some discharge and drainage from the wound. Patient states she has noticed increased erythema. Patient states her temperature at home was 100.1. Physical Examination: All signs are stable. Patient is afebrile. Patient is in no acute distress. Oral mucosa is pink and moist. Neck is supple. Trachea is midline. There is no JVD. Heart was regular rate and rhythm. Lungs are clear and equal bilaterally. Abdomen is soft. There is tenderness over the epigastric area. There is an open wound over the lower abdomen. There is some healing erythema. There is no active discharge or drainage. Cranial nerves II through XII are intact. There are no focal motor or sensory deficits noted. Test Results: CBC shows a mild anemia with a hemoglobin of 9.7 and hematocrit 31.8. This is consistent with prior values. Comprehensive metabolic profile and urinalysis were obtained were all within normal limits. Emergency Department Course and Treatment: Patient was given a dose of Unasyn here. Patient was given morphine and Zofran here. Patient was advised of her findings. Patient was instructed to follow-up with her primary care physician and wound care physician in 5 to 7 days. Patient was given a prescription for Bactrim. Patient was instructed to return if worse in any way. Patient understood and was agreeable with the plan. All questions were answered. Disposition: Discharge home Impression: 1. Epigastric abdominal pain 2. Infected abdominal wound This note was generated with authorGENation software. It may contain incorrect words, spelling, and punctuation that were not noted in review of the chart prior to signing ED Disposition - Plan for ED Patient: Disposition: Home or Assisted Living Diagnosis: Epigastric abdominal pain, Chronic abdominal wound infection Instructions: ED Abdominal Pain Unkn Cause Fem, ED Wound Care Prescriptions: Smz/Tmp Ds [Bactrim Ds] 1 tab PO BID #14 tab Prescription Printed Referrals: Bethel Jauregui III, MD [Primary Care Provider] - 3-5 Days Gigi Mendieta MD [STAFF PHYSICIAN] - 3-5 Days
[2020-01-23] MEDS: Morphine 4 MG/ML Syringe IV (07:30)
[2020-01-23] MEDS: Ondansetron 4 MG/2 ML Vial IV (07:30)
[2020-01-23] MEDS: 0.9% Normal Saline 1,000 ML 1000 ML IV (07:31)
[2020-01-23 07:42] LABS: Absolute Lymphocyte Count 0.93 X10^3/uL (0.83-4.51); Absolute Neutrophil Count 5.3 X10^3/uL (2.0-7.7); Basophil% 1.5 % (0-1); Eosinophil# 0.03 X10^3/uL; Eosinophils% 0.4 % (0-5); Hematocrit 31.8 % (37-47); Hemoglobin 9.7 g/dL (12.0-15.0); Lymphocyte # 0.93 X10^3/ul (4.0); Lymphocyte % 13.5 % (19-41); Mean Corp Hgb Conc 30.5 g/dL (32-36); Mean Corpuscular Volume 78.5 fL (81-99); Mean Platelet Vol. 10.8 fl (6.2-12.0); Monocyte# 0.49 X10^3/uL; Monocyte% 7.1 % (0-10); NRBC Flagged by Analyzer 0 % (0-5); Neutrophil # 5.31 X10^3/uL (2.7-7.7); Neutrophil % 77.4 % (47-70); Platelet Count 586 K/mm3 (150-450); RBC Distribution Width SD 47.7 fl (35.1-43.9); Red Blood Count 4.05 M/mm3 (4.2-5.4); White Blood Count 6.9 K/mm3 (4.4-11.0)
[2020-01-23 07:53] LABS: ALB/GLOB Ratio 0.9 RATIO (0.9-2.4); AST(SGOT) 16 U/L (15-37); Alanine Aminotransfer ALT/SGPT 59 U/L (13-56); Albumin, Serum 3.6 g/dL (3.2-5.0); Alkaline Phosphatase 88 U/L (45-117); Anion Gap 9 (5-15); BUN 12 mg/dL (7-18); BUN/Creat Ratio 14.7 RATIO (10-20); Chloride 105 mmol/L (98-107); Creatinine, Serum 0.82 mg/dL (0.55-1.02); EST Glomerular Filtration Rate 85 mL/min (>60); Est Glom Filt Rate - Afr Amer 103 mL/min (>60); Glucose 98 mg/dL (74-106); Lipase 165 U/L (73-393); Potassium 3.5 mmol/L (3.5-5.1); Protein, Total 7.6 g/dL (6.4-8.2); Sodium Level 136 mmol/L (136-145)
--- NOTE | 2020-01-23 08:27 | ED.RN ---
PT REPORTS NO RELIEF OF PAIN WITH MORPHINE, DR. MOISE MADE AWARE.
[2020-01-23 08:51] LABS: Bacteria 0 SEEN /hpf (None Seen); Red Blood Cells-Urine 0 SEEN /hpf (0-5); Squamous Epithelial Cells - UA 0 SEEN /hpf (5-10); White Blood Cells 0 SEEN /hpf (0-5)
[2020-01-23 08:55] LABS: Color, Urine Amber (Yellow); Glucose, Dipstick Normal (Normal); Ketone-Dipstick 15 mg/dl (Negative); Leukocyte Esterase-Dipstick 25 /ul (Negative); Nitrite-Dipstick Negative (Negative); Occult Blood-Urine Negative /ul (Negative); Protein-Dipstick 30 mg/dl (Negative); Specific Gravity, Urine 1.015 (1.002-1.030); Urine Clarity Sl. Cloudy (Clear); Urine Urobilinogen 1 mg/dl (Normal); Urine pH 6.5 (5.0 - 8.0)
[2020-01-23 08:56] LABS: Urine Bilirubin Dipstick 1 mg/dL (Negative)
[2020-01-23 09:01] LABS: Hyaline Cast 0-5 SEEN /lpf (0-5); Mucous, Urine 2+ /hpf (<or=2+)
[2020-01-23] MEDS: Morphine 2 MG/ML Syringe IV (09:53)
[2020-01-23] MEDS: proMETHazine 25 MG/ML Syringe 6.25 MG IM (09:54)
[2020-01-23 10:09] VITALS: BP 183/104; PULSE 97; RESP 17; O2SAT 100
--- NOTE | 2020-01-23 10:10 | ED.RN ---
IV DC'ED, CATHETER INTACT, SMALL GAUZE DRESSING PLACED. DISCHARGE INSTRUCTIONS GIVEN TO AND REVIEWED WITH PATIENT, PATIENT DENIES QUESTIONS OR CONCERNS AND VOICES UNDERSTANDING OF DISCHARGE INSTRUCTIONS. PT AMBULATES OUT OF ROOM WITHOUT DIFFICULTY.
--- NOTE | 2020-01-23 10:12 | ED.RN ---
BP NOTED TO BE ELEVATED UPON DISCHARGE, PATIENT REPORTS THAT SHE HAS NOT TAKEN HER HOME MEDICATIONS FOR THE LAST 2-3 DAYS.
== END 2020-01-23 10:11 | disposition home or self-care (01) ==
PROVIDERS: Emergency Provider Emergency Medicine; PCP Family Medicine
DX: R10.13 Epigastric pain (principal); S31.109A Unspecified open wound of abdominal wall, unspecified quadrant without penetration into peritoneal cavity, initial encounter; L08.9 Local infection of the skin and subcutaneous tissue, unspecified; X58.XXXA Exposure to other specified factors, initial encounter; Y93.9 Activity, unspecified; Y92.89 Other specified places as the place of occurrence of the external cause; Y99.9 Unspecified external cause status; G89.29 Other chronic pain; Z87.11 Personal history of peptic ulcer disease
CPT/HCPCS: 80053; 81001; 83690; 85025; 87070; 87077; 87186; 87205; 96365; 96372; 96375; 96376; 99284; J7030; P9612; A4216; J0295; J2405

== ENCOUNTER → 2020-01-24 08:35 | Outpatient (CLI) | payer MEDICAID, SELFPAY ==
[2020-01-23 06:27] VITALS: BMI 31.4
[2020-01-24 09:24] LABS: Hematocrit 33.2 % (37-47); Hemoglobin 9.7 g/dL (12.0-15.0); Mean Corp Hgb Conc 29.2 g/dL (32-36); Mean Corpuscular Hgb 23.7 pg (27.0-32.0); Mean Corpuscular Volume 81.2 fL (81-99); Mean Platelet Vol. 9.9 fl (6.2-12.0); Platelet Count 483 K/mm3 (150-450); RBC Distribution Width SD 50.5 fl (35.1-43.9); Red Blood Count 4.09 M/mm3 (4.2-5.4); White Blood Count 5.5 K/mm3 (4.4-11.0)
== END ==
PROVIDERS: PCP Family Medicine; Visit Provider Family Medicine
DX: D64.9 Anemia, unspecified (principal); K27.9 Peptic ulcer, site unspecified, unspecified as acute or chronic, without hemorrhage or perforation
CPT/HCPCS: 36415; 85027

== ENCOUNTER → 2020-02-01 09:10 | Outpatient (CLI) | payer MEDICAID, SELFPAY ==
[2020-01-23 06:27] VITALS: BMI 31.4
== END ==
PROVIDERS: PCP Family Medicine; Referring Provider Family Medicine; Visit Provider Family Medicine
DX: Z11.59 Encounter for screening for other viral diseases (principal)
CPT/HCPCS: 87635; C9803; U0003

== ENCOUNTER 2020-03-15 14:02 | Inpatient (IN) | payer MEDICAID, SELFPAY ==
[2020-03-15] VITALS (8 sets, daily range): BP systolic 124–198; BP diastolic 61–124; PULSE 91–111; RESP 18–20; TEMP 37.1–38.1; O2SAT 98–100; BMI 32.3; BMI 33.1
--- NOTE | 2020-03-15 14:15 | ED.DCSUM_ITS ---
- ER Visit Summary Date of Service: 03/15/20 Chief Complaint: [Wound infection] History of Present Illness: The patient is a 35 F [presents to the emergency department with a wound infection that started about a day and a half ago. Patient states that she has history of chronic infections to the abdominal wall from prior panniculectomy. Patient's had fever at home up to 102.1. Patient has had multiple admissions for this for IV antibiotics. Patient has history of hypertension, high cholesterol, obesity, history of GERD, and history of necrotizing fasciitis. Patient has had history of MRSA.] Physical Examination: [HEENT-PERRLA, EOMI. Cranial nerves II through XII grossly intact. TMs clear. Mucous membranes moist. No adenopathy. Cardiovascular-regular rate and rhythm without murmur or ectopy Lungs-clear to auscultation, chest wall stable without crepitus or subcu e mphysema Abdomen-normoactive bowel sounds, soft, nontender, no rebound or rigidity, no peritoneal signs. Patient does have diffuse erythema to the lower abdomen with a area of skin abrasion noted in the suprapubic region. No fluctuance or discrete abscess noted. Extremities-intact ?4, normal range of motion, normal pulses, atraumatic] Test Results: [CBC with differential obtained showed a white count of 8.8, hemoglobin 8.4, hematocrit 29, placed 369. Chemistries unremarkable. Blood cultures ordered and pending. Lactate ordered and pending.] Emergency Department Course and Treatment: [IV line established on arrival. Patient was started on Unasyn and vancomycin IV. Areas of erythema outlined in permanent marker onto the abdominal wall.] Treatment Plan: [Admit] Disposition: [Admit] Impression: [Abdominal wall cellulitis] This note was generated with [employer] dictation software. It may contain incorrect words, spelling, and punctuation that were not noted in review of the chart prior to signing ED Disposition - Plan for ED Patient: Referrals: Bethel Jauregui III, MD [Primary Care Provider] -
[2020-03-15 14:51] LABS: Absolute Lymphocyte Count 0.57 X10^3/uL (0.83-4.51); Absolute Neutrophil Count 7.5 X10^3/uL (2.0-7.7); Basophil# 0.04 X10^3/uL; Basophil% 0.5 % (0-1); Eosinophil# 0.03 X10^3/uL; Eosinophils% 0.3 % (0-5); Hematocrit 28.7 % (37-47); Hemoglobin 8.4 g/dL (12.0-15.0); Lymphocyte # 0.57 X10^3/ul (4.0); Lymphocyte % 6.5 % (19-41); Mean Corp Hgb Conc 29.3 g/dL (32-36); Mean Corpuscular Hgb 21.7 pg (27.0-32.0); Mean Corpuscular Volume 74.2 fL (81-99); Mean Platelet Vol. 11.9 fl (6.2-12.0); Monocyte# 0.57 X10^3/uL; Monocyte% 6.5 % (0-10); NRBC Flagged by Analyzer 0 % (0-5); Neutrophil # 7.51 X10^3/uL (2.7-7.7); Neutrophil % 85.9 % (47-70); POSITIVE DIFFERENTIAL YES; Platelet Count 369 K/mm3 (150-450); RBC Distribution Width CV 16.2 % (11.6-14.6); RBC Distribution Width SD 43.8 fl (35.1-43.9); Red Blood Count 3.87 M/mm3 (4.2-5.4); White Blood Count 8.8 K/mm3 (4.4-11.0)
[2020-03-15 14:53] LABS: Anion Gap 5 (5-15); BUN 13 mg/dL (7-18); BUN/Creat Ratio 14.8 RATIO (10-20); Calcium,Total 8.4 mg/dL (8.5-10.1); Chloride 107 mmol/L (98-107); Creatinine, Serum 0.88 mg/dL (0.55-1.02); EST Glomerular Filtration Rate 78 mL/min (>60); Est Glom Filt Rate - Afr Amer 95 mL/min (>60); Estimated Creatinine Clearance 84.33 ml/min; Glucose 100 mg/dL (74-106); Potassium 3.9 mmol/L (3.5-5.1); Sodium Level 133 mmol/L (136-145)
[2020-03-15 14:54] LABS: Differential Indicated SCAN CRITERIA MET
[2020-03-15] MEDS: 0.9% Normal Saline 1,000 ML 150 ML IV (14:59)
--- NOTE | 2020-03-15 15:04 | ED.RN ---
UNABLE TO OBTAIN BOTH BLOOD CULTURES AT THIS TIME THEREFORE CANNOT HANG ANTIBIOTIC. WILL CALL LAB TO OBTAIN CULUTRES AND LACTIC.
[2020-03-15 15:14] LABS: Differential Comment SCANNED
--- NOTE | 2020-03-15 15:15 | NURSING ---
DR ZEPEDA FOR DR OBRIEN
--- NOTE | 2020-03-15 15:34 | NURSING ---
MED SURG ABD WALL CELLULITIS KATELYN
[2020-03-15] MEDS: Ondansetron 4 MG/2 ML Vial IV (15:59)
[2020-03-15] MEDS: Morphine 4 MG/ML Syringe IV (16:00)
--- NOTE | 2020-03-15 16:10 | ED.RN ---
[employer] WAS MAGED TO OBTAIN SECOND SET OF CULTURES AND LACTIC ACID. DR OBRIEN NOTIFIED. DR WILL DO A FEMORAL DRAW AT THIS TIME
--- NOTE | 2020-03-15 16:29 | PCM.HP.STD ---
History of Present Illness Date of Admission: 03/15/20 Chief Complaint: Abdominal wall cellulitis The patient is a 35 year old F with PMH as below presents without sepsis with an abdominal wall cellulitis. She has a chronic wound from previous panniculectomy which she has had multiple surgeries for, she has noticed that she had some redness for the last day or so and then it extended significantly from this morning at 2 AM until now she presented to the ER. She is had to go through this several times before has had multiple corrective surgeries. She had some fevers at home though nothing here, and has tenderness where the cellulitis is on her right lower quadrant. She does have a wound on her mons which does not have any drainage currently though she said it was bleeding yesterday. Will try to get a culture but unsure as it has scabbed over and there is currently no drainage. In the ER she was initially slightly tachycardic though she is much better now and afebrile. White blood cell count is 8.8 and she is chronically microcytic anemic secondary to her gastric bypass surgery. Past Medical History Past Medical History (Chronic Problems): Chronic Problems (Last Reviewed 10/25/19 @ 11:[address] 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 Lissette Nolasco MD) Back problem M53.9 Bladder infection N30.90 Excessive weight loss R63.4 EXCESSIVE WEIGHT LOSS AFTER GASTRIC BYPASS PROCEDURE Gallstones K80.20 Intertrigo L30.4 ABDOMINAL WALL SKIN CREASE INTERTRIGO Kidney stones N20.0 Soft tissue mass M79.9 PAINFUL SOFT TISSUE MASS PUBIC AREA Stomach ulcer K25.9 Vitamin deficiency E56.9 High blood pressure I10 Allergies methocarbamol Allergy (Verified 03/15/20 14:05) Chest tightness gabapentin Adverse Reaction (Verified 03/15/20 14:05) abnormal gait ketorolac tromethamine [From Toradol] Adverse Reaction (Verified 03/15/20 14:05) Upset Stomach NSAIDS (Non-Steroidal Anti-Inflamma Adverse Reaction (Verified 03/15/20 14:05) gastric bipass not supposed to take tramadol Adverse Reaction (Verified 03/15/20 14:05) Upset Stomach Home Medications: Ambulatory Orders Medication Instructions Recorded Ergocalciferol [Vitamin D] 50,000 unit PO TH 04/30/17 Tamsulosin HCl [Flomax] 0.4 mg PO DAILY PRN PRN 04/30/17 Lisinopril [Zestril] 40 mg PO BID 05/30/17 Cyanocobalamin [Vitamin B12] 1,000 mcg IM Q30D 07/06/17 Ondansetron [Zofran Odt] 4 mg PO 4X/DAY PRN PRN #30 tab 03/16/19 Amitriptyline HCl 50 mg PO QHS PRN PRN 11/29/19 Ferrous Sulfate 325 mg PO TIDCM 11/29/19 Hydrocodone/Acetaminophen 1 tab PO Q6H PRN PRN 11/29/19 [Hydrocodone-Acetamin 5-325 mg] Lactobacillus Acidophilus 1 tab PO BID 11/29/19 [Acidophilus] Pantoprazole Sodium [Protonix] 40 mg PO BID 03/15/20 Sucralfate [Carafate] 1 gm PO 4X/DAY 03/15/20 Surgical History: Surgical History (Last Reviewed 10/25/19 @ 11:[address] Lissette Nolasco MD) History of cholecystectomy Z98.890, Z90.49 History of gastric bypass Z98.84 LAPAROSCOPIC MARY-EN-Y PROCEDURE AT [facility] 2016 History of incision and drainage Z98.890 INCISION AND DRAINAGE POST OP HEMATOMA ABDOMINAL WALL 09/17/16 History of incision and drainage Z98.890 INCISION AND DRAINAGE INFECTED POST OP ABDOMINAL WALL SEROMA 10/20/2016 History of nephrolithotomy with removal of calculi Z98.890, Z87.442 2 STONES REMOVED History of thyroidectomy E89.0 LEFT THYROID REMOVED Status post panniculectomy Onset Date: ~09/17/16 Z98.890 Surgical History: cholecystectomy, gastric bypass, - - Gastric bypass 04/18/15, thyroid nodular surgery, excision 8 cm painful soft tissue mass pubic area with 20 cm complex closure 04/20/17, I+D abdominal wall and pubic area with incision and drainage and excisional debridement infected seroma/hematoma (250 cm2) 05/03/17, I+D vulva involving mons pubis with excision painful infected ulcer and excision associated painful lymphedema with partial vulvectomy (120 cm2) 07/20/17, I+D vuvla involving the mons pubis area with excisional debridement nonhealing ulcer with STSG reconstruction from the right lateral abdominal wall (15 cm2) and placement of ANGIE NPWT 10/19/17, I+D vulva involving mons pubis with excisional debridement painful infected skin graft scar contour deformity, Reconstruction with abdominal wall advancement skin flap (215 cm2) and complex secondary wound closure 02/21/19, I+D abdominal wall area with incision and drainage and excisional debridement necrotic infected seroma including umbilicus (182 cm2), I+D vulva involving the mons pubis area with incision and drainage and excisional debridement necrotic infected seroma (52 cm) 03/13/19. Surgical preparation lower anterior abdominal wall with incision and drainage and excisional debridement skin, subcutaneous tissue, and fascia necrotizing soft tissue infection abscess (660 cm2) 03/28/19, partial thyroidectomy. Psychiatric History: No pertinent psych hx SPOOL SALVAGER History: No pertinent SPOOL SALVAGER history Smoking Status: Never smoker Alcohol: None Drugs: None - *Family History Maternal Family History: Family History (Last Reviewed 10/25/19 @ 11:[address] Lissette Nolasco MD) Mother Anxiety Bleeding disorder Depression Hypertension High cholesterol Cancer Father Diabetes Hypertension Grandfather Colon cancer Diabetes Heart disease History Items: Hypertension, - - Patient notes a maternal family history of heart disease status post CABG status, history of stroke, hypertension, hyperlipidemia. Paternal Family History: Family History (Last Reviewed 10/25/19 @ 11:[address] Lissette Nolasco MD) Mother Anxiety Bleeding disorder Depression Hypertension High cholesterol Cancer Father Diabetes Hypertension Grandfather Colon cancer Diabetes Heart disease History Items: Diabetes, Hypertension Review of Systems Constitutional: Reports: Fever. Denies: Chills, Weight Change HEENT: Denies: Head Aches, Sinus Congestion, Sinus Drainage Cardiovascular: Denies: Chest Pain, Palpitations Respiratory: Denies: Cough, Shortness of breath at rest, Sputum production Gastrointestinal: Denies: Abdominal Pain, Nausea, Vomiting Genitourinary: Denies: Dysuria Musculoskeletal: Denies: Joint Pain, Joint Tenderness Skin: Reports: Rash, Wounds Neurological: Denies: Numbness, Tingling, Focal weakness Psychiatric: Denies: Anxiety, Depression, Homicidal Ideations, Suicidal Ideations Hematologic/ Lymphatic: Denies: Easy Bruising, Easy Bleeding VTE Information - Inpt Only VTE Present on Admission: No - Physical Exam Vitals/I&O's: Vital Signs Temp Pulse Resp BP Pulse Ox 99.4 F H 94 18 181/110 H 98 03/15/20 16:25 03/15/20 16:25 03/15/20 16:25 03/15/20 16:25 03/15/20 16:25 Oxygen Delivery Method Room Air Weight: 200 lb Body Mass Index (BMI) 32.3 General: Alert, Oriented x3, Cooperative, No apparent distress HEENT: Atraumatic, PERRLA, EOMI, Normocephalic Oral: Moist Mucosa Neck: Supple, No JVD Lungs: Clear to auscultation, Normal air movement, No rhonchi, No wheeze, No rales Cardiovascular: Regular rate, Regular Rhythm, Normal S1, Normal S2, No murmurs Abdomen: Soft, Non Tender, Non-Distended, No Hepato-splenomegaly Extremities: No edema, Capillary Refill Less than 3 Seconds Skin: - - She has a 3 cm linear wound that appears to have been closed and then reopened on her mons. No drainage and looks scabbed. She has cellulitis extending around that area and tracking up her right lower quadrant Neurological: Neuro grossly intact, Sensory exam intact to light touch and pain Psych/Mental Status: Normal Affect, Appropriate Laboratory Results 03/15/20 14:30: WBC 8.8, RBC 3.87 L, Hgb 8.4 L, Hct 28.7 L, MCV 74.2 L, MCH 21.7 L, MCHC 29.3 L, RDW Std Deviation 43.8, RDW Coeff of Andrez 16.2 H, Plt Count 369, MPV 11.9, Immature Gran % (Auto) 0.300, Neut % (Auto) 85.9 H, Lymph % (Auto) 6.5 L, [place] % (Auto) 6.5, Eos % (Auto) 0.3, Baso % (Auto) 0.5, Absolute Neuts (auto) 7.5, Absolute Lymphs (auto) 0.57 L, Nucleated RBC % 0, Differential Comment SCANNED 03/15/20 14:30: Sodium 133 L, Potassium 3.9, Chloride 107, Carbon Dioxide 21.0, Anion Gap 5, BUN 13, Creatinine 0.88, Estim Creat Clear Calc 84.33, Est GFR (MDRD) Af Amer 95, Est GFR (MDRD) Non-Af 78, BUN/Creatinine Ratio 14.8, Glucose 100, Calcium 8.4 L Current Medications Sodium Chloride () 1,000 mls @ 150 mls/hr IV .Q6H40M RAUL Last Admin: 03/15/20 14:59 Dose: 150 mls/hr Documented by: Assessment/Plan All Active Problems (Last Reviewed 10/25/19 @ 11:[address] Lissette Nolasco MD) Sepsis (Acute) Cellulitis of labia majora (Acute) Fever (Acute) ERIKA (acute kidney injury) (Acute) Cellulitis of abdominal wall (Acute) 1. Abdominal wall cellulitis status post panniculectomy with chronic wound -We will attempt to get a culture from the chronic wound though given that there is no drainage or abscess may not be successful -Blood cultures pending -She is tachycardic but afebrile and no white count or tachypnea therefore no sepsis -She has had multiple organisms grown in the past, most commonly MSSA and she did have a little bit more resistant Pseudomonas fairly recently -We will continue with vancomycin and Zosyn, will obtain MRSA PCR and if that is negative can discontinue the vancomycin 2. Morbid obesity status post gastric bypass surgery with chronic microcytic anemia -Her chronic iron deficiency anemia is stable at 8.4 -She is on iron replacement as well as both PPI and Carafate. Will need to add vitamin C so she might be able to absorb more of her iron -Can continue with her home meds at this time 3. Hypertension -Blood pressure on admission was elevated however once her pain was controlled it seems like it is improved from ALT 198 systolic to 124 systolic -Continue with her lisinopril DVT: Lovenox Inpatient E&M: 87000 Init Hosp L3
[2020-03-15 17:09] LABS: Lactic Acid 0.8 mmol/L (0.4-1.9)
[2020-03-15] MEDS: Morphine 2 MG/ML Syringe IV ×3 (17:30→23:50)
[2020-03-15] MEDS: Lisinopril 40 MG Tablet PO (17:51)
[2020-03-15] MEDS: Ferrous Sulfate 325 MG Tablet PO (17:51)
[2020-03-15] MEDS: Ascorbic Acid 500 MG Tablet PO (17:52)
[2020-03-15] MEDS: 0.9% Saline Lock 10 ML Syringe IV ×2 (20:50→23:50)
[2020-03-15] MEDS: Pantoprazole Sodium 40 MG Tablet PO (22:28)
[2020-03-15] MEDS: Sucralfate 1 GM Tablet PO (22:28)
[2020-03-16 02:36] VITALS: BP 128/64; PULSE 93; RESP 16; TEMP 36.8; O2SAT 99
[2020-03-16] MEDS: 0.9% Saline Lock 10 ML Syringe IV (04:43)
[2020-03-16] MEDS: Morphine 2 MG/ML Syringe IV ×3 (04:43→12:18)
[2020-03-16 05:45] LABS: Absolute Lymphocyte Count 0.61 X10^3/uL (0.83-4.51); Absolute Neutrophil Count 4.4 X10^3/uL (2.0-7.7); Basophil# 0.04 X10^3/uL; Basophil% 0.7 % (0-1); Eosinophil# 0.09 X10^3/uL; Eosinophils% 1.6 % (0-5); Hematocrit 28.1 % (37-47); Hemoglobin 8.1 g/dL (12.0-15.0); Lymphocyte # 0.61 X10^3/ul (4.0); Lymphocyte % 11.1 % (19-41); Mean Corp Hgb Conc 28.8 g/dL (32-36); Mean Corpuscular Hgb 21.8 pg (27.0-32.0); Mean Corpuscular Volume 75.5 fL (81-99); Mean Platelet Vol. 12.3 fl (6.2-12.0); Monocyte# 0.29 X10^3/uL; Monocyte% 5.3 % (0-10); NRBC Flagged by Analyzer 0 % (0-5); Neutrophil # 4.43 X10^3/uL (2.7-7.7); Neutrophil % 80.9 % (47-70); Platelet Count 360 K/mm3 (150-450); RBC Distribution Width CV 16.3 % (11.6-14.6); RBC Distribution Width SD 44.1 fl (35.1-43.9); Red Blood Count 3.72 M/mm3 (4.2-5.4); White Blood Count 5.5 K/mm3 (4.4-11.0)
[2020-03-16 06:02] LABS: Anion Gap 5 (5-15); BUN 9 mg/dL (7-18); BUN/Creat Ratio 17.3 RATIO (10-20); Calcium,Total 8.2 mg/dL (8.5-10.1); Chloride 104 mmol/L (98-107); Creatinine, Serum 0.52 mg/dL (0.55-1.02); EST Glomerular Filtration Rate 143 mL/min (>60); Est Glom Filt Rate - Afr Amer 173 mL/min (>60); Estimated Creatinine Clearance 142.71 ml/min; Glucose 84 mg/dL (74-106); Potassium 3.6 mmol/L (3.5-5.1); Sodium Level 135 mmol/L (136-145)
[2020-03-16] MEDS: Sucralfate 1 GM Tablet PO ×3 (07:06→15:41)
--- NOTE | 2020-03-16 07:44 | PCM.PN.HOSP ---
Reason for Visit: Follow-up for abdominal wall cellulitis. Objective: Patient complains of shivering and sweating. T-max 100.5 Fahrenheit with reflex tachycardia 111/min. Patient has history of multiple hospitalization here and [facility] for abdominal wall cellulitis. Physical exam General: Alert, Oriented x3, Cooperative HEENT: Atraumatic, PERRLA, EOMI, Normocephalic Oral: No Gingival or Mucosal Lesions/ Ulcerations Neck: Supple, No JVD, Negative Carotid Bruits Lungs: Air entry equal in bilateral lung bases. No crepitation/rhonchi Cardiovascular: Regular rate, Regular Rhythm, Normal S1, Normal S2, No murmurs Abdomen: Bowel Sounds Present, Soft, Non Tender, Non-Distended : No renal angle tenderness. No suprapubic tenderness. Extremities: No edema, Capillary Refill Less than 3 Seconds Skin: Surgical scar of previous abdominal panniculectomy healed except a small scab in the middle. Mild tenderness, and induration over abdominal wall. No open wound or ulcer Musculoskeletal: No Tenderness to Palpation of Joints or Extremities Neurological: Cranial nerves II-XII grossly intact, Deep Tendon Reflexes 2+/4 and Symmetrical, Neuro grossly intact Psych/Mental Status: Normal Affect, Appropriate. Vitals/I&O's: Vital Signs Temp Pulse Resp BP Pulse Ox 98.2 F 93 16 128/64 H 99 03/16/20 02:36 03/16/20 02:36 03/16/20 02:36 03/16/20 02:36 03/16/20 02:36 Oxygen Delivery Method Room Air Weight: 205 lb 4.006 oz Body Mass Index (BMI) 33.1 Intake and Output for Last 24 Hours 03/14/20 03/15/20 03/16/20 23:59 23:59 23:59 Intake Total 1832.25 / 1832.25 350 / 350 Output Total 200 / 200 Balance 1632.25 / 1632.25 350 / 350 Laboratory Results 03/15/20 14:30: WBC 8.8, RBC 3.87 L, Hgb 8.4 L, Hct 28.7 L, MCV 74.2 L, MCH 21.7 L, MCHC 29.3 L, RDW Std Deviation 43.8, RDW Coeff of Andrez 16.2 H, Plt Count 369, MPV 11.9, Immature Gran % (Auto) 0.300, Neut % (Auto) 85.9 H, Lymph % (Auto) 6.5 L, [place] % (Auto) 6.5, Eos % (Auto) 0.3, Baso % (Auto) 0.5, Absolute Neuts (auto) 7.5, Absolute Lymphs (auto) 0.57 L, Nucleated RBC % 0, Differential Comment SCANNED 03/15/20 14:30: Sodium 133 L, Potassium 3.9, Chloride 107, Carbon Dioxide 21.0, Anion Gap 5, BUN 13, Creatinine 0.88, Estim Creat Clear Calc 84.33, Est GFR (MDRD) Af Amer 95, Est GFR (MDRD) Non-Af 78, BUN/Creatinine Ratio 14.8, Glucose 100, Calcium 8.4 L 03/15/20 16:20: Lactic Acid 0.8 03/16/20 05:30: WBC 5.5, RBC 3.72 L, Hgb 8.1 L, Hct 28.1 L, MCV 75.5 L, MCH 21.8 L, MCHC 28.8 L, RDW Std Deviation 44.1 H, RDW Coeff of Andrez 16.3 H, Plt Count 360, MPV 12.3 H, Immature Gran % (Auto) 0.400, Neut % (Auto) 80.9 H, Lymph % (Auto) 11.[address] L, [place] % (Auto) 5.3, Eos % (Auto) 1.6, Baso % (Auto) 0.7, Absolute Neuts (auto) 4.4, Absolute Lymphs (auto) 0.61 L, Nucleated RBC % 0 03/16/20 05:30: Sodium 135 L, Potassium 3.6, Chloride 104, Carbon Dioxide 26.0, Anion Gap 5, BUN 9, Creatinine 0.52 L, Estim Creat Clear Calc 142.71, Est GFR (MDRD) Af Amer 173, Est GFR (MDRD) Non-Af 143, BUN/Creatinine Ratio 17.3, Glucose 84, Calcium 8.2 L Current Medications Acetaminophen (Acetaminophen 325 Mg Tablet) 650 mg PO Q6H PRN PRN PRN Reason: Pain Score 1-10/Temp > 100.7 F Amitriptyline HCl (Amitriptyline 25 Mg Tablet) 50 mg PO QHS PRN PRN PRN Reason: SLEEP Ascorbic Acid (Ascorbic Acid 500 Mg Tablet) 500 mg PO TIDCM [facility] Last Admin: 03/15/20 17:52 Dose: 500 mg Documented by: Enoxaparin Sodium (Enoxaparin 40 Mg/0.4 Ml Syringe) 40 mg SC DAILY [facility] Ferrous Sulfate (Ferrous Sulfate 325 Mg Tablet) 325 mg PO TIDCM [facility] Last Admin: 03/15/20 17:51 Dose: 325 mg Documented by: Vancomycin IV Pharmacy to Dose (1 ea/ Sodium Chloride) 500 mls @ 250 mls/hr IV PRN PRN; Protocol PRN Reason: Rx to Dose Sodium Chloride () 250 mls @ 15 mls/hr IV .[id number] PRN PRN Reason: Saline Flush Last Infusion: 03/16/20 02:25 Dose: 15 mls/hr Documented by: Sodium Chloride () 250 mls @ 15 mls/hr IV .[id number] PRN PRN Reason: Additional IVPB Infusion Vancomycin HCl 1,500 mg/ (Sodium Chloride) 530 mls @ 250 mls/hr IV Q12H [facility] Last Admin: 03/16/20 07:03 Dose: 250 mls/hr Documented by: Piperacillin Sod/Tazobactam (Sod 3.375 gm/ Sodium Chloride) 50 mls @ 12.5 mls/hr IV Q8H [facility] Lisinopril (Lisinopril 40 Mg Tablet) 40 mg PO BID [facility] Last Admin: 03/15/20 17:51 Dose: 40 mg Documented by: Morphine Sulfate (Morphine 2 Mg/Ml Syringe) 2 mg IV Q3H PRN PRN PRN Reason: Pain Score 6-10 Last Admin: 03/16/20 04:43 Dose: 2 mg Documented by: Ondansetron HCl (Ondansetron 4 Mg/2 Ml Vial) 4 mg IV Q8H PRN PRN PRN Reason: NAUSEA/VOMITING Pantoprazole Sodium (Pantoprazole Sodium 40 Mg Tablet) 40 mg PO BID [facility] Last Admin: 03/15/20 22:28 Dose: 40 mg Documented by: Sodium Chloride (0.9% Saline Lock 10 Ml Syringe) 10 - 40 ml IV UD PRN PRN Reason: SALINE FLUSH Last Admin: 03/16/20 04:43 Dose: 10 ml Documented by: Sucralfate (Sucralfate 1 Gm Tablet) 1 gm PO 1HR_ACHS RAUL Last Admin: 03/16/20 07:06 Dose: 1 gm Documented by: Tamsulosin HCl (Tamsulosin Hcl 0.4 Mg Capsule) 0.4 mg PO DAILY PRN PRN PRN Reason: kidney stones Medical Necessity - Tobacco Use Smoking Status: Never smoker Assessment/Plan All Active Problems (Last Reviewed 10/25/19 @ 11:[address] Lissette Nolasco MD) Sepsis (Acute) Cellulitis of labia majora (Acute) Fever (Acute) ERIKA (acute kidney injury) (Acute) Cellulitis of abdominal wall (Acute) This 35-year-old female with history of chronic wound after multiple abdominal surgery, panniculectomy admitted with mild fever, redness of abdominal wall for 2 days which has extended in the last 1 day, mild bleeding from the mons and drainage admitted to the [facility] floor. 1. Abdominal wall cellulitis status post panniculectomy with chronic wound scab: There is no open ulcer or drainable abscess. Blood cultures x2 are pending. She still gets intermittent fever. Continue vancomycin and Unasyn. Wound culture from previous hospitalization shows MSSA and gram-positive roni, coagulase-negative staph, Pseudomonas, Streptococcus group A, corynebacterium and Morganella morganii 2. Morbid obesity status post gastric bypass surgery with chronic microcytic anemia: She states she had EGD and [facility] which shows multiple ulcer in the stomach exact anatomical location unclear from the history. -Her chronic iron deficiency anemia is stable at 8.4. On iron replacement, PPI, Carafate and vitamin C. 3. Hypertension -Blood pressure on admission was elevated. Hydralazine 10 mg IV every 4 hourly as needed for systolic blood pressure more than 180 mmHg. -Continue with her lisinopril DVT: Lovenox Inpatient E&M: 09934 Subs Hosp L2
[2020-03-16 08:00] VITALS: PULSE 91
[2020-03-16] MEDS: Enoxaparin 40 MG/0.4 ML Syringe SC (08:30)
[2020-03-16] MEDS: Ascorbic Acid 500 MG Tablet PO ×3 (08:30→15:41)
[2020-03-16] MEDS: Ferrous Sulfate 325 MG Tablet PO ×3 (08:30→15:41)
[2020-03-16 08:40] VITALS: BP 156/89; PULSE 91; RESP 18; TEMP 36.8; O2SAT 100
[2020-03-16] MEDS: Pantoprazole Sodium 40 MG Tablet PO ×2 (09:43→20:58)
[2020-03-16] MEDS: Lisinopril 40 MG Tablet PO ×2 (09:43→20:57)
--- NOTE | 2020-03-16 10:00 | CASEMGMT ---
RICARDO BECKFORD assessment: RICARDO BECKFORD to room to meet with patient for initial transition planning/care coordination assessment. RICARDO BECKFORD introduced self and role at [facility], pt voices understanding and consents to assessment at this time. Pt sitting up in bed in no distress at this time. Pt is A/O x4 at this time and answers all questions appropriately. Care providers, pharmacy, and demographics verified/updated at this time. Presentation: Infected abd wound, n/v, fever Admitting dx: Abd wall cellulitis PCP: Dr Amaury Jauregui Specialists: None currently, pt refuses to see Gayatri again [facility]erred [facility]acy: [facility] Insurance: [facility] Community Plan Prescription Benefit: Yes Living Will/HPOA: Pt has LW/HPOA and they are on file at [facility] at this time. Pt's sister, Arleen Salazar, is HPOA. LNOK: Faith Salazar, mother; Arleen Salazar, sister/HPOA Living Arrangements: Lives with her mother in 2-story home w/finished basement. Mother lives upstairs and pt lives downstairs. Mother has some physical disabilities and pt does most of the household mgmt tasks. Pt independent with ADL's and works full-time. Transportation: Pt states drives self and states no transportation concerns at this time. DME: Denies using any DME and denies needs. HHC/SNF: No history of SNF. Has had [facility] and [facility] in the past. Pt declines need for any HHC at this time. Pt states no concerns with going home at time of discharge. Pt is currently unemployed to COVID. Pt states does not smoke cigarettes and rarely drinks ETOH. Pt voices no further concerns/needs at this time. CM to follow for any discharge planning/needs. Advised pt to ask for CM if any further questions/concerns/needs arise. Voices understanding. Pt Goal: Home Plan: [place] RICARDO BECKFORD
[2020-03-16 14:00] VITALS: PULSE 78
[2020-03-16 15:00] VITALS: BP 150/78; PULSE 88; RESP 18; TEMP 36.7; O2SAT 100
[2020-03-16] MEDS: oxyCODONE 5 MG Tablet PO ×2 (15:41→20:07)
[2020-03-16 20:50] VITALS: BP 138/75; PULSE 83; RESP 16; TEMP 36.6; O2SAT 100
[2020-03-16 23:38] LABS: M R Staph aureus DNA By PCR Negative (Negative); Probe Check PASS; Specimen Processing Control PASS
[2020-03-17 01:07] VITALS: BP 140/71; PULSE 70; RESP 16; TEMP 36.6; O2SAT 100
[2020-03-17 05:44] VITALS: BP 138/81; PULSE 84; RESP 16; TEMP 36.5; O2SAT 99
[2020-03-17] MEDS: Acetaminophen 325 MG Tablet 650 MG PO (05:50)
[2020-03-17] MEDS: oxyCODONE 5 MG Tablet PO ×2 (05:50→09:49)
[2020-03-17] MEDS: Sucralfate 1 GM Tablet PO (06:45)
[2020-03-17 07:43] LABS: Vancomycin, Trough Level 8.7 ug/mL (5.0-15.0)
--- NOTE | 2020-03-17 07:55 | PCM.RX.CS ---
Consult Pharmacy has been consulted to manage selected antiobiotic: Vancomycin Type of Consult: Follow-up Suspected Infection: Skin/Soft tissue Labs: Sodium 135 mmol/L (136-145) L 03/16/20 05:30 Potassium 3.6 mmol/L (3.5-5.1) 03/16/20 05:30 Chloride 104 mmol/L (98-107) 03/16/20 05:30 Carbon Dioxide 26.0 mmol/L (21.0-32.0) 03/16/20 05:30 Anion Gap 5 (5-15) 03/16/20 05:30 BUN 9 mg/dL (7-18) 03/16/20 05:30 Creatinine 0.52 mg/dL (0.55-1.02) L 03/16/20 05:30 Est GFR (MDRD) Af Amer 173 mL/min (>60) 03/16/20 05:30 Est GFR (MDRD) Non-Af 143 mL/min (>60) 03/16/20 05:30 BUN/Creatinine Ratio 17.3 RATIO (10-20) 03/16/20 05:30 Glucose 84 mg/dL (74-106) 03/16/20 05:30 Vancomycin Trough 8.7 ug/mL (5.0-15.0) 03/17/20 07:10 Microbiology: Microbiology 03/15/20 14:55 Blood Culture (Wb) - Anticubital Left Blood Culture - Preliminary No growth in 48 hours. Goal Trough: 15-20 mcg/mL Pharmacy Plan for Drug Dosing: VANCOMYCIN LEVEL RECEIVED Current Vancomycin Dose: 1500MG Q12H Number of Doses Received: 1 - 2000MG DOSE, 2 - 1500MG DOSES Vancomycin Level: 8.7 MG/DL Hours Since Last Dose: 12 Renal Function: SCR 0.53 FROM 03/16 Renal Function Trend: NO NEW LEVEL Lab/Micro: PENDING Vancomycin Plan/Comments: INCREASE DOSE TO 2000MG Q12H STARTING AT 0800 Pharmacy Service will continue to monitor and adjust dosing as required. Labs to be done on [date and time ordered]: 03/18/20 @ 5924
[2020-03-17] MEDS: Ascorbic Acid 500 MG Tablet PO (08:02)
[2020-03-17] MEDS: Ferrous Sulfate 325 MG Tablet PO (08:02)
[2020-03-17] MEDS: Enoxaparin 40 MG/0.4 ML Syringe SC (08:03)
[2020-03-17] MEDS: Pantoprazole Sodium 40 MG Tablet PO (08:03)
[2020-03-17] MEDS: Lisinopril 40 MG Tablet PO (08:03)
--- NOTE | 2020-03-17 10:12 | DCINST_ITS ---
You will use the following diet at home:: Cardiac Your food should be the consistency of: Regular Discharge Activity: May Not Drive - Until see his PCP Weight Bearing Status: Weight bearing as tolerated Call your doctor if you observe: Fever of 101 or Higher, Coldness, Increased Pain, Numbness or Tingling, Change in Color, Inability to urinate, Inability to have a bowel movement, Shortness of breath, Dizziness, Fainting spells, Swelling in the ankles, Chest pain, Prolonged hiccoughing, Increased palpitations (irregular heartbeat), Calf discomfort, Uncontrolled pain Allergies/Adverse Reactions: Allergies methocarbamol Allergy (Verified 03/15/20 14:05) Chest tightness gabapentin Adverse Reaction (Verified 03/15/20 14:05) abnormal gait ketorolac tromethamine [From Toradol] Adverse Reaction (Verified 03/15/20 14:05) Upset Stomach NSAIDS (Non-Steroidal Anti-Inflamma Adverse Reaction (Verified 03/15/20 14:05) gastric bipass not supposed to take tramadol Adverse Reaction (Verified 03/15/20 14:05) Upset Stomach Medications to take at Discharge Ergocalciferol [Vitamin D] 50,000 unit PO TH 04/30/17 Tamsulosin HCl [Flomax] 0.4 mg PO DAILY PRN PRN 04/30/17 Lisinopril [Zestril] 40 mg PO BID 05/30/17 Cyanocobalamin [Vitamin B12] 1,000 mcg IM Q30D 07/06/17 Ondansetron [Zofran Odt] 4 mg PO 4X/DAY PRN PRN #30 tab 03/16/19 Amitriptyline HCl 50 mg PO QHS PRN PRN 11/29/19 Hydrocodone/Acetaminophen [Hydrocodone-Acetamin 5-325 mg] 1 tab PO Q6H PRN PRN 11/29/19 Lactobacillus Acidophilus [Acidophilus] 1 tab PO BID 11/29/19 Pantoprazole Sodium [Protonix] 40 mg PO BID 03/15/20 Sucralfate [Carafate] 1 gm PO 4X/DAY 03/15/20 Ascorbic Acid [Vitamin C] 500 mg PO DAILY tablet 03/17/20 Ciprofloxacin [Cipro] 500 mg PO BID #10 tab 03/17/20 Ferrous Sulfate 325 mg PO DAILY #0 03/17/20 The following prescriptions were given: Ciprofloxacin [Cipro] 500 mg PO BID #10 tab Transmission Status: Pending to [facility] Primary Care Physician: Bethel Jauregui III, MD [Primary Care Provider] - Please follow up with your Primary Care Physician in: In 1 to 2 weeks Test Results: Test results from this visit will be discussed in further detail at your follow- up appointment, if applicable.
--- NOTE | 2020-03-17 10:17 | DS.PCM_ITS ---
Discharge Date and Diagnosis Date of Admission: 03/15/20 Date of Discharge: 03/17/20 - Primary Discharge Diagnosis Acute Problems: Abdominal wall cellulitis status post panniculectomy with chronic wound scab - Secondary Discharge Diagnosis Chronic Problems: Chronic Problems (Last Reviewed 10/25/19 @ 11:[address] 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) Nonhealing surgical wound (Chronic) umbilical wound Other complications of skin graft (allograft) (autograft) (Chronic) Vulvar ulceration (Chronic) Lymphedema of genitalia (Chronic) Intertrigo (Chronic) abdominal wall skin crease intertrigo Localized adiposity (Chronic) 8 cm painful soft tissue mass pubic area Excessive body weight loss (Chronic) after gastric bypass procedure HTN (hypertension) (Chronic) Nephrolithiasis (Chronic) Ovarian cyst (Chronic) Hospital Course and Treatment Consultations 03/15/20 16:42 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 Summary of Care Provided: [] This 35-year-old female with history of chronic wound after multiple abdominal surgery, panniculectomy admitted with mild fever, redness of abdominal wall for 2 days which has extended in the last 1 day, mild bleeding from the mons and drainage [facility] 1. Abdominal wall cellulitis status post panniculectomy with chronic wound scab: There is no open ulcer or drainable abscess. Blood cultures x2 are pending. She still gets intermittent fever. Continue vancomycin and Unasyn. Wound culture from previous hospitalization shows MSSA and gram-positive roni, coagulase-negative staph, Pseudomonas, Streptococcus group A, corynebacterium and Morganella morganii. MRSA nasal screen is negative. Blood cultures x2 are negative for more than 48 hours. Patient is empirically discharged on Cipro to complete a total of 7 days of antibiotic. Patient has prescription of [place] from her PCP and advised to take it as needed for severe pain. Patient is also on lactobacillus. Avoid Zofran along with Cipro for interaction of QT prolongation. 2. Morbid obesity status post gastric bypass surgery with chronic microcytic anemia: She states she had EGD and [facility] which shows multiple ulcer in the stomach exact anatomical location unclear from the history. -Her chronic iron deficiency anemia is stable at 8.4. On iron replacement, PPI, Carafate and vitamin C. patient on ferrous sulfate 325 mg 3 times daily with decreased to once daily for better absorption along with vitamin C. 3. Hypertension -Blood pressure on admission was elevated. Hydralazine 10 mg IV every 4 hourly as needed for systolic blood pressure more than 180 mmHg. -Continue with her lisinopril DVT: Lovenox Discharge medication reconciliation done. Discharge follow-up instructions completed. Discharge process discussed with the patient and all questions were answered to patient's satisfaction. Follow-up PCP in 1 to 2 weeks Total time spent, exact 35 minutes on discharge meds reconciliation, examination, coordination of care with nurses and ancillary staff, review of imaging and blood test and discussion with the patient on follow-up instructions Objective: Seen and examined. No fever or chills. Blood cultures x2 is negative for more than 48 hours. Patient complains of pain and lower abdominal cellulitis. Pain is controlled on oxycodone. Her PCP refills for [place] and she has sufficient supplies at home. Physical exam General: Alert, Oriented x3, Cooperative HEENT: Atraumatic, PERRLA, EOMI, Normocephalic Oral: No Gingival or Mucosal Lesions/ Ulcerations Neck: Supple, No JVD, Negative Carotid Bruits Lungs: Air entry diminished in bilateral lung bases. No crepitation/rhonchi Cardiovascular: Regular rate, Regular Rhythm, Normal S1, Normal S2, No murmurs Abdomen: Bowel Sounds Present, Soft, Non Tender, Non-Distended : No renal angle tenderness. No suprapubic tenderness. Extremities: No edema, Capillary Refill Less than 3 Seconds Skin: Erythema, tenderness and induration has much improved. Scab on the mid abdomen. Musculoskeletal: No Tenderness to Palpation of Joints or Extremities Neurological: Cranial nerves II-XII grossly intact, Deep Tendon Reflexes 2+/4 and Symmetrical, Neuro grossly intact Psych/Mental Status: Normal Affect, Appropriate. - Physical Exam Vitals/I&O's: Vital Signs Temp Pulse Resp BP Pulse Ox 97.7 F L 84 16 138/81 H 99 03/17/20 05:44 03/17/20 05:44 03/17/20 05:44 03/17/20 05:44 03/17/20 05:44 Oxygen Delivery Method Room Air Weight: 205 lb 4.006 oz Body Mass Index (BMI) 33.1 Intake and Output for Last 24 Hours 03/15/20 03/16/20 03/17/20 23:59 23:59 23:59 Intake Total 1832.25 / 1832.25 2759.75 / 2759.75 550 / 550 Output Total 200 / 200 Balance 1632.25 / 1632.25 2759.75 / 2759.75 550 / 550 Microbiology Past 72 Hours 03/15/20 14:55 Blood Culture (Wb) - Anticubital Left Blood Culture - Preliminary No growth in 48 hours. Laboratory Results 03/16/20 21:00: MRSA (PCR) Negative 03/17/20 07:10: Vancomycin Trough 8.7 Current Medications Acetaminophen (Acetaminophen 325 Mg Tablet) 650 mg PO Q6H PRN PRN PRN Reason: Pain Score 1-10/Temp > 100.7 F Last Admin: 03/17/20 05:50 Dose: 650 mg Documented by: Amitriptyline HCl (Amitriptyline 25 Mg Tablet) 50 mg PO QHS PRN PRN PRN Reason: SLEEP Ascorbic Acid (Ascorbic Acid 500 Mg Tablet) 500 mg PO TIDCM [facility] Last Admin: 03/17/20 08:02 Dose: 500 mg Documented by: Enoxaparin Sodium (Enoxaparin 40 Mg/0.4 Ml Syringe) 40 mg SC DAILY [facility] Last Admin: 03/17/20 08:03 Dose: 40 mg Documented by: Ergocalciferol (Ergocalciferol 50,000 Unit Capsule) 50,000 unit PO Th@1000 [facility] Ferrous Sulfate (Ferrous Sulfate 325 Mg Tablet) 325 mg PO TIDCM [facility] Last Admin: 03/17/20 08:02 Dose: 325 mg Documented by: Hydralazine HCl (Hydralazine 20 Mg/Ml Vial) 10 mg IV Q4H PRN PRN PRN Reason: SBP more than 180 mmHg Vancomycin IV Pharmacy to Dose (1 ea/ Sodium Chloride) 500 mls @ 250 mls/hr IV PRN PRN; Protocol PRN Reason: Rx to Dose Sodium Chloride () 250 mls @ 15 mls/hr IV .[id number] PRN PRN Reason: Saline Flush Last Infusion: 03/16/20 19:30 Dose: Infused Documented by: Sodium Chloride () 250 mls @ 15 mls/hr IV .[id number] PRN PRN Reason: Additional IVPB Infusion Piperacillin Sod/Tazobactam (Sod 3.375 gm/ Sodium Chloride) 50 mls @ 12.5 mls/hr IV Q8H [facility] Last Admin: 03/17/20 09:51 Dose: 12.5 mls/hr Documented by: Vancomycin HCl 2,000 mg/ (Sodium Chloride) 540 mls @ 250 mls/hr IV Q12H [facility] Last Admin: 03/17/20 08:07 Dose: 250 mls/hr Documented by: Lactobacillus Acidophilus (Lactobacillus Acidophilus) 1 tablet PO BID [facility] Last Admin: 03/17/20 08:03 Dose: 1 tablet Documented by: Lisinopril (Lisinopril 40 Mg Tablet) 40 mg PO BID [facility] Last Admin: 03/17/20 08:03 Dose: 40 mg Documented by: Ondansetron HCl (Ondansetron 4 Mg/2 Ml Vial) 4 mg IV Q8H PRN PRN PRN Reason: NAUSEA/VOMITING Oxycodone HCl (Oxycodone 5 Mg Tablet) 5 - 10 mg PO Q4H PRN PRN PRN Reason: Pain Score 1-10 Last Admin: 03/17/20 09:49 Dose: 10 mg Documented by: Pantoprazole Sodium (Pantoprazole Sodium 40 Mg Tablet) 40 mg PO BID [facility] Last Admin: 03/17/20 08:03 Dose: 40 mg Documented by: Sodium Chloride (0.9% Saline Lock 10 Ml Syringe) 10 - 40 ml IV UD PRN PRN Reason: SALINE FLUSH Last Admin: 03/16/20 04:43 Dose: 10 ml Documented by: Sucralfate (Sucralfate 1 Gm Tablet) 1 gm PO 1HR_ACHS [facility] Last Admin: 03/17/20 06:45 Dose: 1 gm Documented by: Tamsulosin HCl (Tamsulosin Hcl 0.4 Mg Capsule) 0.4 mg PO DAILY PRN PRN PRN Reason: kidney stones Discharge Activity: May Not Drive - Until see his PCP Weight Bearing Status: Weight bearing as tolerated Call your doctor if you observe: Fever of 101 or Higher, Coldness, Increased Pain, Numbness or Tingling, Change in Color, Inability to urinate, Inability to have a bowel movement, Shortness of breath, Dizziness, Fainting spells, Swelling in the ankles, Chest pain, Prolonged hiccoughing, Increased palpitations (irregular heartbeat), Calf discomfort, Uncontrolled pain Home Medications: Medications to take at Discharge Ergocalciferol [Vitamin D] 50,000 unit PO TH 04/30/17 Tamsulosin HCl [Flomax] 0.4 mg PO DAILY PRN PRN 04/30/17 Lisinopril [Zestril] 40 mg PO BID 05/30/17 Cyanocobalamin [Vitamin B12] 1,000 mcg IM Q30D 07/06/17 Ondansetron [Zofran Odt] 4 mg PO 4X/DAY PRN PRN #30 tab 03/16/19 Amitriptyline HCl 50 mg PO QHS PRN PRN 11/29/19 Hydrocodone/Acetaminophen [Hydrocodone-Acetamin 5-325 mg] 1 tab PO Q6H PRN PRN 11/29/19 Lactobacillus Acidophilus [Acidophilus] 1 tab PO BID 11/29/19 Pantoprazole Sodium [Protonix] 40 mg PO BID 03/15/20 Sucralfate [Carafate] 1 gm PO 4X/DAY 03/15/20 Ascorbic Acid [Vitamin C] 500 mg PO DAILY tab 03/17/20 Ciprofloxacin [Cipro] 500 mg PO BID #10 tab 03/17/20 Ferrous Sulfate 325 mg PO DAILY #0 03/17/20 Following Prescriptions Were Given to Patient: Ciprofloxacin [Cipro] 500 mg PO BID #10 tab Transmission Status: Received by [facility] Primary Care Physician: Bethel Jauregui III, MD [Primary Care Provider] - Please follow up with your Primary Care Physician in: In 1 to 2 weeks Medical Necessity - Tobacco Use Smoking Status: Never smoker Meaningful Use Info Meaningful Use Diagnoses (Choose all that apply): None applicable Inpatient E&M: 45394 Disch Hosp
--- NOTE | 2020-03-20 14:20 | CASEMGMT ---
RICARDO CM Discharge Follow-Up Phone Call. Lace: 12 Strata: 3 Discharge Date: 03/17/20 Adm Dx: Cellulitis Attempted d/c f/u phone call. No answer. VM left for pt to return call if she has any questions/concerns/needs. Phone number provided. Arabella CANASN RN CM
== END 2020-03-17 11:30 | disposition home or self-care (01) | DRG 383 ==
LOC: ED 14:42 → MS3 21:51
PROVIDERS: Admitting Provider Family Medicine; Emergency Provider Emergency Medicine; PCP Family Medicine; Visit Provider Internal Medicine
DX: L03.311 Cellulitis of abdominal wall (principal); K21.9 Gastro-esophageal reflux disease without esophagitis; E78.5 Hyperlipidemia, unspecified; E66.01 Morbid (severe) obesity due to excess calories; E78.00 Pure hypercholesterolemia, unspecified; I10 Essential (primary) hypertension; D50.9 Iron deficiency anemia, unspecified; Z98.84 Bariatric surgery status; B96.5 Pseudomonas (aeruginosa) (mallei) (pseudomallei) as the cause of diseases classified elsewhere; Z87.11 Personal history of peptic ulcer disease; Z80.0 Family history of malignant neoplasm of digestive organs; Z81.8 Family history of other mental and behavioral disorders; Z82.49 Family history of ischemic heart disease and other diseases of the circulatory system; Z83.2 Family history of diseases of the blood and blood-forming organs and certain disorders involving the immune mechanism; Z83.3 Family history of diabetes mellitus; Z86.14 Personal history of Methicillin resistant Staphylococcus aureus infection; Z87.39 Personal history of other diseases of the musculoskeletal system and connective tissue; Z87.442 Personal history of urinary calculi; Z90.49 Acquired absence of other specified parts of digestive tract; Z68.33 Body mass index [BMI] 33.0-33.9, adult
CPT/HCPCS: 36415; 80048; 80202; 83605; 85025; 87040; 87641; 99285; J7030; J7040; J7050; A4216; J0295; J2405

== ENCOUNTER 2021-06-13 08:36 | Emergency (ER) | payer MEDICAID, SELFPAY ==
[2021-06-13 08:38] VITALS: BP 189/104; PULSE 96; RESP 17; TEMP 36.1; O2SAT 100; BMI 36.6
--- NOTE | 2021-06-13 09:20 | EKG12_ITS ---
Test Reason : HYPERTENSION Blood Pressure : / mmHG Vent. Rate : 082 BPM Atrial Rate : 082 BPM P-R Int : 142 ms QRS Dur : 086 ms QT Int : 386 ms P-R-T Axes : 041 024 010 degrees QTc Int : 450 ms Normal sinus rhythm Normal ECG Confirmed by THOMAS BROWN, STEPHANE ([id number]), publication editor DANIEL HAIDER ([id number]) on 06/17/2021 10:59:08 AM Referred By: KATHELEN Confirmed By:STEPHANE GUZMAN MD
--- NOTE | 2021-06-13 09:22 | EX.ED.DYSGE1 ---
HPI History of Present Illness Chief Complaint: Hypertension Narrative Narrative: 36-year-old female presenting with abdominal pain and hypertension. Patient states he is in between primary care physicians and ran out of her blood pressure medicine about 2 days ago. She states she is on lisinopril 40 mg, and cannot recall her second blood pressure medicine. Patient states that she has a sensation in her chest of feeling her blood pressure/heart pounding. She also has abdominal pain just above the umbilicus region which she feels is heavy and is radiating to the left. She states it feels better when she puts pressure on it and massages it. Patient states she also has an ecchymosis on her abdomen just above her previous surgical scar which she does not know the source of. She denies any trauma. She is not having any lower extremity paresthesias. She denies a ripping tearing sensation. [facility] Medical History Back problem Bladder infection Excessive weight loss Gallstones High blood pressure Intertrigo Kidney stones Soft tissue mass Stomach ulcer Vitamin deficiency Home Medications ergocalciferol (vitamin D2) 50,000 unit PO TH 04/30/17 [History Last Taken 11/23/19] tamsulosin 0.4 mg PO DAILY PRN PRN 04/30/17 [History Last Taken 2 Weeks Ago ~09/07/17] lisinopril 40 mg PO BID 05/30/17 [History Last Taken 11/29/19] cyanocobalamin (vitamin B-12) 1,000 mcg IM Q30D 07/06/17 [History Last Taken 1 Month Ago ~10/29/19] ondansetron 4 mg PO 4X/DAY PRN PRN #30 tab 03/16/19 [Rx Last Taken Unknown] acidophilus-pectin, citrus 1 tab PO BID 11/29/19 [History Last Taken 11/29/19] amitriptyline 50 mg PO QHS PRN PRN 11/29/19 [History Last Taken 4 Days Ago ~11/25/19] hydrocodone-acetaminophen 1 tab PO Q6H PRN PRN 11/29/19 [History Last Taken Unknown] pantoprazole 40 mg PO BID 03/15/20 [History Last Taken Unknown] sucralfate 1 gm PO 4X/DAY 03/15/20 [History Last Taken Unknown] ascorbic acid (vitamin C) 500 mg PO DAILY tab 03/17/20 [Rx Last Taken Unknown] ciprofloxacin HCl 500 mg PO BID #10 tab 03/17/20 [Rx Last Taken Unknown] ferrous sulfate 325 mg PO DAILY #0 03/17/20 [Rx Last Taken 11/29/19] amlodipine 10 mg PO DAILY #30 tab 06/13/21 [Rx Last Taken Unknown] lisinopril 40 mg PO DAILY #30 tab 06/13/21 [Rx Last Taken Unknown] Allergy/AdvReac Type Severity Reaction Status Date / Time methocarbamol Allergy Chest Verified 06/13/21 08:37 tightness gabapentin AdvReac abnormal Verified 06/13/21 08:37 gait ketorolac tromethamine AdvReac Upset Verified 06/13/21 08:37 [From Toradol] Stomach NSAIDS (Non-Steroidal AdvReac gastric Verified 06/13/21 08:37 Anti-Inflamma bipass not supposed to take tramadol AdvReac Upset Verified 06/13/21 08:37 Stomach Family History Mother Anxiety Bleeding disorder Depression Hypertension High cholesterol Cancer Father Diabetes Hypertension Grandfather Colon cancer Diabetes Heart disease Surgical History History of cholecystectomy History of gastric bypass History of incision and drainage History of incision and drainage History of nephrolithotomy with removal of calculi History of thyroidectomy Status post panniculectomy (~09/17/16) Social History Smoking Status: Never smoker second hand exposure: Yes alcohol intake: current substance use type: does not use what type of physical activity do you participate in: other seatbelt use: always do you feel safe at home: Yes additional social history: SUN EXPOSURE: OCCASIONALLY ROS ROS ED Constitutional Constitutional ED: Denies chills or fever(s) Eyes Eyes: Denies blurry vision or diplopia ENT ENT ED: Denies rhinorrhea or sore throat Cardiovascular Cardiovascular: Reports chest pain; Denies palpitations Respiratory/Chest Respiratory/Chest: Denies cough or dyspnea Gastrointestinal Gastrointestinal: Reports abdominal pain; Denies diarrhea, nausea or vomiting Genitourinary Genitourinary ED: Denies dysuria or hematuria Integumentary Reports other Details: Bruising over the mid abdomen ; Denies rash Neurologic Neurologic: Denies headache(s) or paresthesias Psychiatric Psychiatric: Denies anxiety or depression EXAM Physical Exam Const Vital Signs: 06/13/21 08:38 06/13/21 10:37 06/13/21 13:47 Temperature 97.0 F L Temperature Source Temporal Pulse Rate 96 96 Respiratory Rate 17 18 18 Blood Pressure 189/104 H 167/89 H 164/63 H Blood Pressure Mean 132 115 96 Pulse Ox 100 100 98 Oxygen Delivery Method Room Air Room Air Room Air Positive well nourished General Appearance ED: NAD HEENT Reports moist mucous membranes Negative for trauma Eyes PERRL and EOMs intact bilaterally Neck no lymphadenopathy and supple Chest Wall inspection of chest normal and palpation of chest normal Resp normal respiratory effort and clear to auscultation bilaterally Cardio regular rate and regular rhythm GI Palpation: tender LLQ, LUQ and periumbilical Back/Spine no CVA tenderness Extremity normal to inspection General Extremety ED: Negative for edema or tenderness General Extremity: Negative for edema Neuro oriented x3, CN's II-XII intact bilaterally and no sensory deficits noted Sensorium / Orientation: alert Motor Exam: strength 5/5 throughout Psych mental status grossly normal Skin Skin Narrative: 5 cm circular area of ecchymosis over the mid abdomen above surgical scarring. MDM MDM MDM Narrative Medical decision making narrative: 36-year-old female with elevated blood pressure complaining of abdominal pain that is lateralizing to the left. She feels like pressure and feels better when she puts her own hand on it and applies pressure. Patient is having some chest pressure as well that her blood pressure is elevated. I obtained an EKG and on my interpretation this is a sinus rhythm with a ventricular rate of 82 bpm without sign of ischemic change. CBC shows chronic anemia. No leukocytosis. Renal function and electrolytes are normal. High-sensitivity troponin is less than 3. Obtain a CTA of the chest abdomen was initially due to elevated blood pressure in the chest and abdominal pain. This is negative for dissection but does show a left ovarian cyst. Serum hCG negative. Patient sent to ultrasound to rule out torsion due to her pain. Patient does have a care plan but does appear to be in pain and has a verifiable sore so she was given 4 mg of morphine. Transvaginal ultrasound does identify an ovarian cyst 2.5 x 4.9. There is no ovarian torsion. Findings and She Is Comfortable Being Discharged Home at This Point. Patient's Blood Pressure Is Improved with Hydralazine. I Will Refill Her Blood Pressure Medicines That She Is out. She Will Pick These up Tonight. She Will Follow-Up Next Month with Her New Primary Impression: 1. Elevated Blood Pressure 2. Chest Pain Noncardiac 3. Abdominal Pain 4. Left Ovarian Cyst 5. Chronic Anemia Lab Data Attestation: I reviewed the patient's lab results. Labs: Laboratory Results - last 24 hr 06/13/21 06/13/21 06/13/21 09:42 09:42 09:42 WBC Cancelled Corrected WBC Cancelled RBC Cancelled Hgb Cancelled Hct Cancelled MCV Cancelled MCH Cancelled MCHC Cancelled RDW Std Deviation Cancelled RDW Coeff of Andrez Cancelled Plt Count Cancelled MPV Cancelled Immature Gran % (Auto) Cancelled Neut % (Auto) Cancelled Lymph % (Auto) Cancelled Ferry % (Auto) Cancelled Eos % (Auto) Cancelled Baso % (Auto) Cancelled Absolute Neuts (auto) Cancelled Absolute Lymphs (auto) Cancelled Total Counted Cancelled Neutrophils % (Manual) Cancelled Band Neutrophils % Cancelled Lymphocytes % (Manual) Cancelled Monocytes % (Manual) Cancelled Eosinophils % (Manual) Cancelled Basophils % (Manual) Cancelled Metamyelocytes % Cancelled Myelocytes % Cancelled Promyelocytes % Cancelled Blast Cells % Cancelled Plasma Cell % (Manual) Cancelled Other Cells % Cancelled Nucleated RBC % Cancelled Nucleated RBCs/100 WBC Cancelled Differential Comment Cancelled Diff Path Review Cancelled Hypersegmented Neuts Cancelled Atypical Lymphocytes Cancelled Reactive Lymphocytes Cancelled Smudge Cells Cancelled Toxic Granulation Cancelled Toxic Vacuolation Cancelled Dohle Bodies Cancelled Karissa Rods Cancelled Platelet Estimate Cancelled Plt Morphology Comment Cancelled RBC Morphology Cancelled Polychromasia Cancelled Hypochromasia Cancelled Poikilocytosis Cancelled Basophilic Stippling Cancelled Anisocytosis Cancelled Microcytosis Cancelled Macrocytosis Cancelled Spherocytes Cancelled Sickle Cells Cancelled Target Cells Cancelled Tear Drop Cells Cancelled Ovalocytes Cancelled Stomatocytes Cancelled Ramirez-Grenloch Bodies Cancelled Ford Cells Cancelled Bite Cells Cancelled Crenated Cell Cancelled Acanthocytes (Spur) Cancelled Rouleaux Cancelled Schistocytes Cancelled Sodium Cancelled Potassium Cancelled Chloride Cancelled Carbon Dioxide Cancelled Anion Gap Cancelled BUN Cancelled Creatinine Cancelled Estim Creat Clear Calc Cancelled Est GFR (MDRD) Af Amer Cancelled Est GFR (MDRD) Non-Af Cancelled BUN/Creatinine Ratio Cancelled Glucose Cancelled Calcium Cancelled Total Bilirubin Cancelled AST Cancelled ALT Cancelled Alkaline Phosphatase Cancelled Troponin I High Sens Cancelled Total Protein Cancelled Albumin Cancelled Globulin Cancelled Albumin/Globulin Ratio Cancelled Lipase Cancelled Serum , Qual NEGATIVE Urine Color Urine Clarity Urine pH Ur Specific [place] Urine Protein Urine Glucose (UA) Urine Ketones Urine Occult Blood Urine Nitrite Urine Bilirubin Urine Urobilinogen Ur Leukocyte Esterase Urine RBC Urine WBC Ur Squamous Epith Cells Urine Bacteria Urine Mucus 06/13/21 06/13/21 06/13/21 09:50 10:09 10:09 WBC 3.5 L Corrected WBC RBC 3.72 L Hgb 7.3 L Hct 26.1 L MCV 70.2 L MCH 19.6 L MCHC 28.0 L RDW Std Deviation 46.0 H RDW Coeff of Andrez 19.7 H Plt Count 225 MPV 11.1 Immature Gran % (Auto) 0.600 Neut % (Auto) 67.6 Lymph % (Auto) 16.8 L Ferry % (Auto) 11.6 H Eos % (Auto) 2.0 Baso % (Auto) 1.4 H Absolute Neuts (auto) 2.3 Absolute Lymphs (auto) 0.58 L Total Counted Neutrophils % (Manual) Band Neutrophils % Lymphocytes % (Manual) Monocytes % (Manual) Eosinophils % (Manual) Basophils % (Manual) Metamyelocytes % Myelocytes % Promyelocytes % Blast Cells % Plasma Cell % (Manual) Other Cells % Nucleated RBC % 0 Nucleated RBCs/100 WBC Differential Comment Diff Path Review Reviewed Hypersegmented Neuts Atypical Lymphocytes Reactive Lymphocytes Smudge Cells Toxic Granulation Toxic Vacuolation Dohle Bodies Karissa Rods Platelet Estimate ADEQUATE Plt Morphology Comment RBC Morphology Polychromasia Hypochromasia 1+ Poikilocytosis RARE Basophilic Stippling Anisocytosis 1+ Microcytosis 1+ Macrocytosis Spherocytes Sickle Cells Target Cells Tear Drop Cells Ovalocytes 1+ Stomatocytes Ramirez-Grenloch Bodies Ford Cells Bite Cells Crenated Cell Acanthocytes (Spur) Rouleaux Schistocytes Sodium 135 L Potassium 4.4 Chloride 108 H Carbon Dioxide 23.0 Anion Gap 4 L BUN 10 Creatinine 0.61 Estim Creat Clear Calc 120.50 Est GFR (MDRD) Af Amer 142 Est GFR (MDRD) Non-Af 118 BUN/Creatinine Ratio 16.3 Glucose 89 Calcium 8.3 L Total Bilirubin 0.50 AST 44 H ALT 28 Alkaline Phosphatase 70 Troponin I High Sens < 3 L Total Protein 6.9 Albumin 3.3 Globulin 3.6 Albumin/Globulin Ratio 0.9 Lipase 79 Serum , Qual Urine Color Yellow Urine Clarity Clear Urine pH 6.5 Ur Specific [place] 1.015 Urine Protein 15 H Urine Glucose (UA) Normal Urine Ketones Negative Urine Occult Blood Negative Urine Nitrite Negative Urine Bilirubin Negative Urine Urobilinogen 4 H Ur Leukocyte Esterase 25 H Urine RBC 0 SEEN Urine WBC 5-10 SEEN Ur Squamous Epith Cells 5-10 SEEN Urine Bacteria 1+ Urine Mucus 0 SEEN Radiography Diagnostic Testing: Clinical Impression(s) from Imaging Studies Chest/Abdomen/Pelvis CTA 06/13/21 10:48 IMPRESSION: No evidence of aortic dissection. No significant aortic pathology is seen. 2.5 cm x 4.9 cm septated cyst in the left ovary. Dominant follicle in the right ovary. Findings suggestive of a heterogeneous uterus suggestive of fibroid change. Electronically Signed: Demetrius Brandon MD at 11:25 EDT , Transvaginal US 06/13/21 11:34 IMPRESSION: 1.5 cm x 1.1 cm x 0.8 cm right fibroid. 2.6 cm x 2.7 cm x 2.5 cm septated left ovarian cyst. Minimal amount of free fluid in the cul-de-sac. Electronically Signed: Demetrius Brandon MD at 13:40 EDT , Discharge Plan Triage Chief Complaint: Hypertension ED Provider: Eugenio Calderon Dx/Rx/DC Orders Instructions: ED Hypertension, Established, ED Ovarian Cyst Prescriptions: New lisinopril 40 mg tablet 40 mg PO DAILY Qty: 30 RF: 0 amlodipine 10 mg tablet 10 mg PO DAILY Qty: 30 RF: 0 No Action tamsulosin 0.4 MG capsule 0.4 mg PO DAILY PRN PRN (Reason: kidney stones) RF: 0 ergocalciferol (vitamin D2) 50,000 UNIT capsule 50,000 unit PO TH RF: 0 lisinopril 40 MG tablet 40 mg PO BID RF: 0 cyanocobalamin (vitamin B-12) 1,000 MCG/ML solution 1,000 mcg IM Q30D RF: 0 ondansetron 4 MG tablet 4 mg PO 4X/DAY PRN PRN (Reason: Nausea) Qty: 30 RF: 1 hydrocodone-acetaminophen 1 EACH tablet 1 tab PO Q6H PRN PRN (Reason: Pain Or Fever) RF: 0 amitriptyline 50 MG tablet 50 mg PO QHS PRN PRN (Reason: Sleep) RF: 0 acidophilus-pectin, citrus 1 TABLET tablet 1 tab PO BID RF: 0 sucralfate 1 GM tablet 1 gm PO 4X/DAY RF: 0 pantoprazole 40 MG tablet 40 mg PO BID RF: 0 ciprofloxacin HCl 500 MG tablet 500 mg PO BID Qty: 10 RF: 0 ascorbic acid (vitamin C) 500 MG tablet 500 mg PO DAILY RF: 0 ferrous sulfate 325 MG tablet 325 mg PO DAILY Qty: 0 RF: 0 Primary Care Provider: Patricio Murguia Referrals: Patricio Murguia MD [Primary Care Provider] - Disposition Disposition: Home, Self Care
[2021-06-13] MEDS: Ondansetron 4 MG/2 ML Vial IV (09:59)
[2021-06-13] MEDS: hydrALAZINE 20 MG/ML Vial 10 MG IV (09:59)
[2021-06-13 10:02] LABS: Internal QC Validated? YES +Cl - CLEAR BKGD; Pregnancy, Serum, hCG Quali. NEGATIVE Negative
[2021-06-13 10:07] LABS: Mucous, Urine 0 SEEN /hpf (<or=2+); Red Blood Cells-Urine 0 SEEN /hpf (0-5)
[2021-06-13 10:11] LABS: Color, Urine Yellow (Yellow); Glucose, Dipstick Normal (Normal); Ketone-Dipstick Negative (Negative); Leukocyte Esterase-Dipstick 25 /ul (Negative); Nitrite-Dipstick Negative (Negative); Occult Blood-Urine Negative /ul (Negative); Protein-Dipstick 15 mg/dl (Negative); Specific Gravity, Urine 1.015 (1.002-1.030); Urine Bilirubin Dipstick Negative (Negative); Urine Clarity Clear (Clear); Urine Urobilinogen 4 mg/dl (Normal); Urine pH 6.5 (5.0 - 8.0)
[2021-06-13 10:18] LABS: Absolute Lymphocyte Count 0.58 X10^3/uL (0.83-4.51); Absolute Neutrophil Count 2.3 X10^3/uL (2.0-7.7); Basophil# 0.05 X10^3/uL; Basophil% 1.4 % (0-1); Eosinophil# 0.07 X10^3/uL; Hematocrit 26.1 % (37-47); Hemoglobin 7.3 g/dL (12.0-15.0); Lymphocyte # 0.58 X10^3/ul (0.83-4.51); Lymphocyte % 16.8 % (19-41); Mean Corpuscular Hgb 19.6 pg (27.0-32.0); Mean Corpuscular Volume 70.2 fL (81-99); Mean Platelet Vol. 11.1 fl (6.2-12.0); Monocyte% 11.6 % (0-10); NRBC Flagged by Analyzer 0 % (0-5); Neutrophil # 2.33 X10^3/uL (2.7-7.7); Neutrophil % 67.6 % (47-70); POSITIVE DIFFERENTIAL YES; Platelet Count 225 K/mm3 (150-450); RBC Distribution Width CV 19.7 % (11.6-14.6); Red Blood Count 3.72 M/mm3 (4.2-5.4); White Blood Count 3.5 K/mm3 (4.4-11.0)
[2021-06-13 10:19] LABS: Differential Indicated SCAN CRITERIA MET
[2021-06-13 10:25] LABS: Bacteria 1+ /hpf (None Seen); Squamous Epithelial Cells - UA 5-10 SEEN /hpf (5-10); White Blood Cells 5-10 SEEN /hpf (0-5)
[2021-06-13 10:37] VITALS: BP 167/89; RESP 18; O2SAT 100
[2021-06-13 10:45] LABS: ALB/GLOB Ratio 0.9 RATIO (0.9-2.4); AST(SGOT) 44 U/L (15-37); Alanine Aminotransfer ALT/SGPT 28 U/L (13-56); Albumin, Serum 3.3 g/dL (3.2-5.0); Alkaline Phosphatase 70 U/L (45-117); Anion Gap 4 (5-15); BUN 10 mg/dL (7-18); BUN/Creat Ratio 16.3 RATIO (10-20); Calcium,Total 8.3 mg/dL (8.5-10.1); Chloride 108 mmol/L (98-107); Creatinine, Serum 0.61 mg/dL (0.55-1.02); EST Glomerular Filtration Rate 118 mL/min (>60); Est Glom Filt Rate - Afr Amer 142 mL/min (>60); Globulin 3.6 g/dL (2.2-4.2); Glucose 89 mg/dL (74-106); Lipase 79 U/L (73-393); Potassium 4.4 mmol/L (3.5-5.1); Protein, Total 6.9 g/dL (6.4-8.2); Sodium Level 135 mmol/L (136-145); Troponin-I HS < 3 pg/mL (3.0-54.0)
--- NOTE | 2021-06-13 10:48 | CT_ITS ---
STUDY: CTA CHEST AND CT ABDOMEN/PELVIS WITH CONTRAST REASON FOR EXAM: Female, 36 years old. Dissection study RADIATION DOSAGE (If Supplied By Facility): CTDIvol = ( 15.90 ) mGy, DLP = ( 1387.88 ) mGycm TECHNIQUE: The examination was performed with the intravenous administration of IV 100mL Isovue-370. Post-processing of the angiographic images was performed, with multiplanar reformation and 3D reconstruction. Individualized dose optimization techniques were used for this CT. COMPARISON: No relevant priors. FINDINGS: CTA Chest Normal enhancement of the main pulmonary artery and right and left pulmonary arteries. Normal enhancement of the bilateral peripheral pulmonary arteries. There is no demonstrated pulmonary embolism. Normal thoracic aorta and visualized great vessels. There is no demonstrated aortic dissection. Normal heart and pericardium. Normal mediastinum. Normal hilar regions. Normal visualized trachea and bronchi. The lungs are well expanded. Normal pulmonary parenchyma. Normal pleura. Normal chest wall structures. Normal osseous structures. Normal visualized upper abdomen. CTA Abdomen T Pelvis The visualized lung bases are unremarkable. The visualized portions of the heart are within normal limits. There is decreased attenuation of the liver consistent with steatosis. There are surgical clips in the gallbladder fossa consistent with a prior cholecystectomy. Normal spleen. Normal pancreas. Normal bilateral adrenal glands. Tiny nonobstructive calculus in the mid anterior pole calyx of the right kidney. Normal left kidney. Status post gastric bypass surgery. Normal small intestine. Normal colon. The appendix is visualized and appears normal. Normal abdominal aorta. Normal inferior vena cava. Normal retroperitoneum. Normal urinary bladder. There is a 2.5 cm x 4.9 cm septated cyst in the left ovary. Correlation with ultrasound is recommended. Dominant follicles are seen in the right ovary. Heterogeneous appearance of the uterus suggestive of possible fibroid change. Normal abdominal wall. There are diffuse degenerative changes of the visualized lumbar spine. CT/CTA Chst, Abd, Pel W and/or WO IMPRESSION: No evidence of aortic dissection. No significant aortic pathology is seen. 2.5 cm x 4.9 cm septated cyst in the left ovary. Dominant follicle in the right ovary. Findings suggestive of a heterogeneous uterus suggestive of fibroid change. Electronically Signed: Demetrius Brandon MD at 11:25 EDT ,
[2021-06-13 10:52] LABS: Anisocytosis 1+; Hypochromasia 1+; Microcytosis 1+; Platelet Estimate ADEQUATE (ADEQ); Poikilocytosis RARE
[2021-06-13 10:53] LABS: Ovalocyte 1+
--- NOTE | 2021-06-13 11:25 | ED.RN ---
PER DR JONES AND [employer]ING [employer]CH[employer]IC NIURKA STOREY TO GIVE MORPHINE AT THIS TIME.
[2021-06-13] MEDS: Morphine 4 MG/ML Syringe IV (11:28)
--- NOTE | 2021-06-13 11:34 | US_ITS ---
STUDY: ULTRASOUND OF THE FEMALE PELVIS - COMPLETE REASON FOR EXAM: Female, 36 years old. PAIN, Rule out torsion LMP: 05/20/2021. TECHNIQUE: Transvaginal TECHNICAL QUALITY: Adequate. COMPARISON: None. FINDINGS: The uterus is anteverted and is in a midline position. The uterus measures 6.7 cm x 4.1 cm x 3.1 cm. Normal uterine cervix. The endometrium measures 4.6 mm in thickness, and is hyperechoic. There is no demonstrated endometrial mass. There is a 1.5 cm x 1.1 cm x 0.8 cm uterine fibroid. I.U.D. - The patient does not have an I.U.D. The right ovary is visualized. The right ovary measures 3.2 cm x 2.8 cm x 1.9 cm. There is no right ovarian cyst or ovarian mass. There is no visualized right adnexal mass or complex lesion. There is normal arterial and normal venous vascularity. The left ovary is visualized. The left ovary measures 3.8 cm x 3.4 cm x 3 cm. There is a 2.6 cm x 2.7 cm x 2.5 cm left ovarian septated cyst. Follow-up is recommended. There is no visualized left adnexal mass or complex lesion. There is normal arterial and normal venous vascularity. There is minimal fluid in the cul-de-sac. US/Transvaginal Non- IMPRESSION: 1.5 cm x 1.1 cm x 0.8 cm right fibroid. 2.6 cm x 2.7 cm x 2.5 cm septated left ovarian cyst. Minimal amount of free fluid in the cul-de-sac. Electronically Signed: Demetrius Brandon MD at 13:40 EDT ,
[2021-06-13 12:24] LABS: Pathologist Review Reviewed
[2021-06-13 13:47] VITALS: BP 164/63; PULSE 96; RESP 18; O2SAT 98
--- NOTE | 2021-06-13 13:49 | CM.ED ---
SW Note SW met with patient as patient reports no knowledge of a care plan. SW brought hard copy of care plan and advised that patient had been mailed care plan in 05/2019. Patient said that she had bariatric surgery and can't take medication like advil and then following the bariatric surgery then had a botched plastic surgery. Patient said that in 2019 she was in the hospital alot so does not recall getting the care plan. SW advised that the care plan was sent to her MD, Bethel Jauregui. Patient said that she misses her MD Jauregui but has a new PCP. SW explained that due to concerns about addiction with prescription medication we develop a care plan for patient and only give pain medication for verifiable and acute pain and patient said that makes sense. SW will remain available if needs arise. Izabel MCHUGH
[2021-06-13 14:14] VITALS: PULSE 96; RESP 18; O2SAT 98
--- NOTE | 2021-06-18 17:29 | CM.ED ---
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 Patient states that she works for [employer] and states that she is doing pretty good, confirmed picked up Rx for BP that was prescribed from ER MD. Denies any other issues or complaints at this time. Michel Perez RNCM
== END 2021-06-13 14:15 | disposition home or self-care (01) ==
PROVIDERS: Emergency Provider Student in an Organized Health Care Education/Training Program; PCP Family Medicine; Visit Provider Student in an Organized Health Care Education/Training Program
DX: N83.202 Unspecified ovarian cyst, left side (principal); R07.89 Other chest pain; R03.0 Elevated blood-pressure reading, without diagnosis of hypertension; D64.9 Anemia, unspecified; R10.9 Unspecified abdominal pain; I10 Essential (primary) hypertension; Z87.442 Personal history of urinary calculi
CPT/HCPCS: 71275; 74174; 76830; 80053; 81001; 83690; 84484; 84703; 85025; 93005; 93976; 96374; 96375; 99285; Q9967; A4216; J2405

== ENCOUNTER 2021-07-16 13:13 | Inpatient (IN) | payer MEDICAID, SELFPAY ==
[2021-07-16 13:14] VITALS: BP 153/81; PULSE 103; RESP 16; TEMP 36.1; O2SAT 99; BMI 34.7
--- NOTE | 2021-07-16 16:01 | EDS_ITS ---
HPI HPI - GI History of Present Illness Chief Complaint: Abd Pain Informant: patient Abdominal Pain/Flank Pain Onset: Days Context: Gradual Onset Timing: Intermittent Quality: Aching Location: Epigastric Current Severity: Mild Maximum Severity: Mild Worsened by: Nothing Relieved by: Nothing Nausea/Vomiting/Emesis GI Symptom: Negative for Vomiting Diarrhea/Melena/Hematochezia GI Symptom: Positive for Melena; Negative for Diarrhea and Hematochezia Onset: Days Severity: Mild Associated Symptoms Associated Symptoms: Negative for Dysuria, Frequency and Hematuria Narrative Narrative: 36-year-old female history of gastric bypass with gastric ulcer. She has needed transfusions before. States she has been having epigastric abdominal pain. Primary care physician did labs and thought she was anemic with a hemoglobin around 7.6. She is also had blood in her stools recently. And wanted to come in the hospital. Currently she is on Protonix, Carafate and other GI meds. She denies any hematemesis. She is on no blood thinners. Prior similar symptoms: Yes Recent Illness/Hospitalization: No PFSH PFSH Medical History (Updated 07/16/21 @ 17:[address] Go Leyva MD) Back problem Bladder infection Excessive weight loss Gallstones High blood pressure Intertrigo Kidney stones Soft tissue mass Stomach ulcer Vitamin deficiency Home Medications ergocalciferol (vitamin D2) 50,000 unit PO TH 04/30/17 [History Last Taken 11/23/19] tamsulosin 0.4 mg PO DAILY PRN PRN 04/30/17 [History Last Taken 2 Weeks Ago ~09/07/17] lisinopril 40 mg PO BID 05/30/17 [History Last Taken 11/29/19] cyanocobalamin (vitamin B-12) 1,000 mcg IM Q30D 07/06/17 [History Last Taken 1 Month Ago ~10/29/19] ondansetron 4 mg PO 4X/DAY PRN PRN #30 tab 03/16/19 [Rx Last Taken Unknown] acidophilus-pectin, citrus 1 tab PO BID 11/29/19 [History Last Taken 11/29/19] amitriptyline 50 mg PO QHS PRN PRN 11/29/19 [History Last Taken 4 Days Ago ~11/25/19] hydrocodone-acetaminophen 1 tab PO Q6H PRN PRN 11/29/19 [History Last Taken Unknown] pantoprazole 40 mg PO BID 03/15/20 [History Last Taken Unknown] sucralfate 1 gm PO 4X/DAY 03/15/20 [History Last Taken Unknown] ascorbic acid (vitamin C) 500 mg PO DAILY tab 03/17/20 [Rx Last Taken Unknown] ciprofloxacin HCl 500 mg PO BID #10 tab 03/17/20 [Rx Last Taken Unknown] ferrous sulfate 325 mg PO DAILY #0 03/17/20 [Rx Last Taken 11/29/19] amlodipine 10 mg PO DAILY #30 tab 06/13/21 [Rx Last Taken Unknown] lisinopril 40 mg PO DAILY #30 tab 06/13/21 [Rx Last Taken Unknown] Allergy/AdvReac Type Severity Reaction Status Date / Time methocarbamol Allergy Chest Verified 07/16/21 13:16 tightness gabapentin AdvReac abnormal Verified 07/16/21 13:16 gait ketorolac tromethamine AdvReac Upset Verified 07/16/21 13:16 [From Toradol] Stomach NSAIDS (Non-Steroidal AdvReac gastric Verified 07/16/21 13:16 Anti-Inflamma bipass not supposed to take tramadol AdvReac Upset Verified 07/16/21 13:16 Stomach Family History Mother Anxiety Bleeding disorder Depression Hypertension High cholesterol Cancer Father Diabetes Hypertension Grandfather Colon cancer Diabetes Heart disease Surgical History History of cholecystectomy History of gastric bypass History of incision and drainage History of incision and drainage History of nephrolithotomy with removal of calculi History of thyroidectomy Status post panniculectomy (~09/17/16) Social History Smoking Status: Never smoker second hand exposure: Yes alcohol intake: current substance use type: does not use what type of physical activity do you participate in: other seatbelt use: always do you feel safe at home: Yes additional social history: SUN EXPOSURE: OCCASIONALLY ROS ROS ED ROS Narrative Melena. Epigastric abdominal pain. Review of Systems ROS Unobtainable: Denies due to encephalopathy Constitutional Constitutional ED: Denies fever(s) ENT ENT ED: Denies ear pain Cardiovascular Cardiovascular: Denies chest pain Respiratory/Chest Respiratory/Chest: Denies cough or dyspnea Gastrointestinal Gastrointestinal: Reports abdominal pain and melena; Denies constipation, diarrhea, nausea or vomiting Genitourinary Genitourinary ED: Denies dysuria Musculoskeletal Musculoskeletal: Denies myalgias Integumentary Denies rash Neurologic Neurologic: Denies headache(s) Psychiatric Psychiatric: Denies depression Endocrine Endocrinology: Denies polyuria Hematologic/Lymphatic Hematologic/Lymphatic: Denies easy bruising Allergic/Immunologic Allergic/Immunologic ED: Denies urticaria EXAM Physical Exam Narrative Exam Narrative: 36 female no acute distress vital signs stable afebrile. Initial blood pressure 153/81. Heart rate 103. H EENT exam unremarkable. Neck nontender. Lungs clear to auscultation. Heart regular rhythm rate about 100 no murmur. Abdomen soft. Obese. Mild epigastric tenderness. No rebound guarding or rigidity. Moving all 4 extremities. Calves nontender. Neurologically she is awake and alert. Const Vital Signs: 07/16/21 13:14 Temperature 97 F L Temperature Source Temporal Pulse Rate 103 H Respiratory Rate 16 Blood Pressure 153/81 H Blood Pressure Mean 105 Pulse Ox 99 Oxygen Delivery Method Room Air Positive well nourished, well developed and obese; Negative for cachectic, contractures or unkempt General Appearance ED: well developed and NAD; Negative for unkempt, cachectic, contractures or pallor Nutritional Appearance: obese; Negative for cachectic HEENT Reports moist mucous membranes normocephalic and atraumatic Eyes PERRL and EOMs intact bilaterally General Eye ED: Negative for pale conjunctiva or scleral icterus Neck no lymphadenopathy, supple and no JVD General: Negative for tenderness Resp normal respiratory effort and clear to auscultation bilaterally Auscultation: Negative for rales, rhonchi or wheezes Cardio regular rate, regular rhythm, S1 normal heart sound, S2 normal heart sound and no murmurs GI non-distended and no masses; Negative for non-tender Auscultation: normoactive bowel sounds Palpation: soft and tender; Negative for guarding, rigid or rebound tenderness present Back/Spine no CVA tenderness General Back: Negative for CVA tenderness Extremity full ROM General Extremety ED: Negative for edema or tenderness General Extremity: Negative for edema Neuro moves all extremities Sensorium / Orientation: alert, oriented to person, oriented to place and oriented to time; Negative for orientation impaired, confused, lethargic or stuporous Motor Exam: strength 5/5 throughout; Negative for general weakness Psych mental status grossly normal and thought process normal Appearance: Negative for unkempt Attitude: No agitated Mood & Affect: Negative for depressed or tearful Skin no wounds General Skin Exam: Negative for jaundice or pallor Lesions: no lesions Rashes: no rashes MDM MDM MDM Narrative Medical decision making narrative: 36-year-old female reportedly anemic with a known history of a gastric ulcer. Screening labs are being obtained. She will be started on Protonix. She may need to be admitted for transfusion and GI evaluation. Repeat exam patient is doing well at 5:30 PM. Hospitalist on page. Lab Data Attestation: I reviewed the patient's lab results. Lab results narrative: CBC shows a white count of 4. H&H of 8 and 27.9 which is along where she normally runs are at times she is 10 or higher. Her most recent hemoglobin was 7.3. Platelet count 592. Electrolytes potassium 3.2 gap of 10 normal BUN and creatinine. Leukos 99. She has been typed and crossed for has not been transfused any blood. Labs: Laboratory Results - last 24 hr 07/16/21 07/16/21 07/16/21 15:40 15:40 15:40 WBC 4.6 RBC 4.18 L Hgb 8.0 L Hct 27.9 L MCV 66.7 L MCH 19.1 L MCHC 28.7 L RDW Std Deviation 50.4 H RDW Coeff of Andrez 22.2 H Plt Count 592 H MPV 10.5 Sodium 137 Potassium 3.2 L Chloride 104 Carbon Dioxide 23.0 Anion Gap 10 BUN 10 Creatinine 0.68 Estim Creat Clear Calc 108.10 Est GFR (MDRD) Af Amer 125 Est GFR (MDRD) Non-Af 104 BUN/Creatinine Ratio 14.6 Glucose 99 Calcium 9.0 Crossmatch See Detail Discharge Plan Triage Chief Complaint: Abd Pain ED Provider: Go Leyva Dx/Rx/DC Orders Clinical Impression: Anemia, Hx of gastric ulcer, Abdominal pain, Acute GI bleeding Prescriptions: No Action tamsulosin 0.4 MG capsule 0.4 mg PO DAILY PRN PRN (Reason: kidney stones) RF: 0 ergocalciferol (vitamin D2) 50,000 UNIT capsule 50,000 unit PO TH RF: 0 lisinopril 40 MG tablet 40 mg PO BID RF: 0 cyanocobalamin (vitamin B-12) 1,000 MCG/ML solution 1,000 mcg IM Q30D RF: 0 ondansetron 4 MG tablet 4 mg PO 4X/DAY PRN PRN (Reason: Nausea) Qty: 30 RF: 1 hydrocodone-acetaminophen 1 EACH tablet 1 tab PO Q6H PRN PRN (Reason: Pain Or Fever) RF: 0 amitriptyline 50 MG tablet 50 mg PO QHS PRN PRN (Reason: Sleep) RF: 0 acidophilus-pectin, citrus 1 TABLET tablet 1 tab PO BID RF: 0 sucralfate 1 GM tablet 1 gm PO 4X/DAY RF: 0 pantoprazole 40 MG tablet 40 mg PO BID RF: 0 ciprofloxacin HCl 500 MG tablet 500 mg PO BID Qty: 10 RF: 0 ascorbic acid (vitamin C) 500 MG tablet 500 mg PO DAILY RF: 0 ferrous sulfate 325 MG tablet 325 mg PO DAILY Qty: 0 RF: 0 lisinopril 40 mg tablet 40 mg PO DAILY Qty: 30 RF: 0 amlodipine 10 mg tablet 10 mg PO DAILY Qty: 30 RF: 0 Primary Care Provider: Patricio Murguia Referrals: Patricio Murguia MD [Primary Care Provider] - Disposition Disposition: Acute Care [facility]
[2021-07-16 16:24] LABS: Hematocrit 27.9 % (37-47); Mean Corp Hgb Conc 28.7 g/dL (32-36); Mean Corpuscular Hgb 19.1 pg (27.0-32.0); Mean Corpuscular Volume 66.7 fL (81-99); Mean Platelet Vol. 10.5 fl (6.2-12.0); POSITIVE MORPHOLOGY YES; Platelet Count 592 K/mm3 (150-450); RBC Distribution Width CV 22.2 % (11.6-14.6); RBC Distribution Width SD 50.4 fl (35.1-43.9); Red Blood Count 4.18 M/mm3 (4.2-5.4); White Blood Count 4.6 K/mm3 (4.4-11.0)
[2021-07-16 16:34] LABS: Anion Gap 10 (5-15); BUN 10 mg/dL (7-18); BUN/Creat Ratio 14.6 RATIO (10-20); Chloride 104 mmol/L (98-107); Creatinine, Serum 0.68 mg/dL (0.55-1.02); EST Glomerular Filtration Rate 104 mL/min (>60); Est Glom Filt Rate - Afr Amer 125 mL/min (>60); Glucose 99 mg/dL (74-106); Potassium 3.2 mmol/L (3.5-5.1); Sodium Level 137 mmol/L (136-145)
[2021-07-16 17:11] LABS: Scan Indicated on CBC? Y/N YES- FLAGS NOTED
--- NOTE | 2021-07-16 17:40 | HP.PCM.HOS_ITS ---
HPI - General General Date of Admission: 07/16/21 Date of Service: 07/16/21 Chief Complaint: Melanotic stools, anemia. HPI Narrative The patient is a 36 y/o F w/ PMHx: HTN, Hx Gastric versus duodenal ulcer, Chronic anemia/Fe deficiency anemia (baseline Hgb 7-8), Obesity, Hx Gastric bypass who presents to the [facility] ED on 07/16/21 with history of aching abdominal discomfort, intermittent, gradually worsening over the last several weeks with planned upcoming evaluation per Dr. Roberson; however, she notes worsening discomfort described as a constant aching, 5 out of 10 in severity, worse with any oral intake attempts with decreased intake as a result over the last several days with worsening per patient melanotic stools. She is already baseline on protonix, carafate regimen. She denies any hematemsis, lightheadedness, dizziness. She notes recent PCP evaluation with Hgb 7.6. She has had prior PRBC administrations. Work-up in the ED included T98.1, heart rate 97, BP 160/80, respiratory rate 18, 100% on room air, CBC with WC six 4.6, hemoglobin 8, platelet 592 with no differential performed, BMP with potassium 3.2 otherwise not marked appearing, type and screen initiated per ED physician. [facility] Medical History (Updated 07/16/21 @ 17:[address] Go Leyva MD) Back problem Bladder infection Excessive weight loss Gallstones High blood pressure Intertrigo Kidney stones Soft tissue mass Stomach ulcer Vitamin deficiency Home Medications ergocalciferol (vitamin D2) 50,000 unit PO TH 04/30/17 [History Last Taken 11/23/19] tamsulosin 0.4 mg PO DAILY PRN PRN 04/30/17 [History Last Taken 2 Weeks Ago ~09/07/17] lisinopril 40 mg PO BID 05/30/17 [History Last Taken 11/29/19] cyanocobalamin (vitamin B-12) 1,000 mcg IM Q30D 07/06/17 [History Last Taken 1 Month Ago ~10/29/19] ondansetron 4 mg PO 4X/DAY PRN PRN #30 tab 03/16/19 [Rx Last Taken Unknown] acidophilus-pectin, citrus 1 tab PO BID 11/29/19 [History Last Taken 11/29/19] amitriptyline 50 mg PO QHS PRN PRN 11/29/19 [History Last Taken 4 Days Ago ~11/25/19] hydrocodone-acetaminophen 1 tab PO Q6H PRN PRN 11/29/19 [History Last Taken Unknown] pantoprazole 40 mg PO BID 03/15/20 [History Last Taken Unknown] sucralfate 1 gm PO 4X/DAY 03/15/20 [History Last Taken Unknown] ascorbic acid (vitamin C) 500 mg PO DAILY tab 03/17/20 [Rx Last Taken Unknown] ciprofloxacin HCl 500 mg PO BID #10 tab 03/17/20 [Rx Last Taken Unknown] ferrous sulfate 325 mg PO DAILY #0 03/17/20 [Rx Last Taken 11/29/19] amlodipine 10 mg PO DAILY #30 tab 06/13/21 [Rx Last Taken Unknown] lisinopril 40 mg PO DAILY #30 tab 06/13/21 [Rx Last Taken Unknown] Allergy/AdvReac Type Severity Reaction Status Date / Time methocarbamol Allergy Chest Verified 07/16/21 13:16 tightness gabapentin AdvReac abnormal Verified 07/16/21 13:16 gait ketorolac tromethamine AdvReac Upset Verified 07/16/21 13:16 [From Toradol] Stomach NSAIDS (Non-Steroidal AdvReac gastric Verified 07/16/21 13:16 Anti-Inflamma bipass not supposed to take tramadol AdvReac Upset Verified 07/16/21 13:16 Stomach Family History Mother Anxiety Bleeding disorder Depression Hypertension High cholesterol Cancer Father Diabetes Hypertension Grandfather Colon cancer Diabetes Heart disease Surgical History History of cholecystectomy History of gastric bypass History of incision and drainage History of incision and drainage History of nephrolithotomy with removal of calculi History of thyroidectomy Status post panniculectomy (~09/17/16) Social History Smoking Status: Never smoker second hand exposure: Yes alcohol intake: current substance use type: does not use what type of physical activity do you participate in: other seatbelt use: always do you feel safe at home: Yes additional social history: SUN EXPOSURE: OCCASIONALLY ROS ROS Narrative Admission Review of Systems: CONSTITUTIONAL: No weight loss, fever, chills, + weakness or fatigue. HEENT: Eyes: No visual loss, blurred vision, double vision or yellow sclerae. Ears, Nose, Throat: No hearing loss, sneezing, congestion, runny nose or sore throat. SKIN: No rash or itching, lesions, wounds. CARDIOVASCULAR: No chest pain, chest pressure or chest discomfort, palpitations, edema, orthopnea, syncopal events. RESPIRATORY: No shortness of breath, cough or sputum, wheezing, hemoptysis. GASTROINTESTINAL: + Anorexia, abdominal discomfort, melena, loose stools, No nausea, vomiting, BRBPR. GENITOURINARY: No dysuria, frequency, urgency or retention. NEUROLOGICAL: No headache, dizziness, syncope, paralysis, ataxia, numbness or tingling in the extremities, focal weakness, change in bowel or bladder control, seizure. MUSCULOSKELETAL: + muscle, back pain, joint pain or stiffness. HEMATOLOGIC: + anemia, bleeding or bruising. LYMPHATICS: No enlarged nodes. No history of splenectomy. PSYCHIATRIC: No history of depression or anxiety. ENDOCRINOLOGIC: No reports of sweating, cold or heat intolerance. No polyuria or polydipsia. ALLERGIES: No history of asthma, hives, eczema or rhinitis. Vital Signs Vital Signs Vital Signs: 07/16/21 13:14 Temperature 97 F L Temperature Source Temporal Pulse Rate 103 H Respiratory Rate 16 Blood Pressure 153/81 H Blood Pressure Mean 105 Pulse Ox 99 Oxygen Delivery Method Room Air Weight Weight: 215 lb Body Mass Index (BMI) 34.7 Physical Exam Narrative Physical Examination: General: Awake, alert, oriented x 3 and cooperative, seated upright in the ED bed in no apparent distress although reporting discomfort. Skin: Normal color, normal turgor, no icterus, no cyanosis. HEENT: AT/NC, EOMI, PERRLA, MMM, no carotid bruits or JVD noted. Lungs: Mildly diminished, > BL bases, appropriate effort, no rales, ronchi or wheezing. Heart: Currently regular rate and rhythm; no gallop, rub audible. Abdomen: Soft, NTTP even with deep palpation with no rebound or guarding, ND, distant normal BS, no HSM. Extremities: No cyanosis, clubbing, or edema. Neurological: Patient awake, alert, oriented x 3, cognitive function intact; pupils equally reactive to light and accommodation, cranial nerves II-XII grossly normal, moving all 4 extremities, no focal deficits, strength appears preserved. Psychiatric: Affect appears normal, despite descriptions of pain ongoing no acute evidence of depressive or anxiety feelings. Results Lab / Micro Data Result Diagrams: 07/16/21 15:40 07/16/21 15:40 Labs: Laboratory Results - last 24 hr 07/16/21 15:40: WBC 4.6, RBC 4.18 L, Hgb 8.0 L, Hct 27.9 L, MCV 66.7 L, MCH 19.1 L, MCHC 28.7 L, RDW Std Deviation 50.4 H, RDW Coeff of Andrez 22.2 H, Plt Count 592 H, MPV 10.5 07/16/21 15:40: Sodium 137, Potassium 3.2 L, Chloride 104, Carbon Dioxide 23.0, Anion Gap 10, BUN 10, Creatinine 0.68, Estim Creat Clear Calc 108.10, Est GFR (MDRD) Af Amer 125, Est GFR (MDRD) Non-Af 104, BUN/Creatinine Ratio 14.6, Glucose 99, Calcium 9.0 07/16/21 15:40: Blood Type A NEGATIVE, Antibody Screen NEGATIVE, Crossmatch See Detail Assessment & Plan Assessment/Plan (1) Acute GI bleeding: (2) Anemia: QUALIFIERS: Anemia type: unspecified type Qualified Code(s): D64.9 - Anemia, unspecified PLAN: The patient is a 36 y/o F w/ PMHx: HTN, Hx Gastric versus duodenal ulcer, Chronic anemia/Fe deficiency anemia (baseline Hgb 7-8), Obesity, Hx Gastric bypass who presents to the [facility] ED on 07/16/21 with history of aching abdominal discomfort, intermittent, gradually worsening over the last several days with worsening per patient melanotic stools. #1. Acute on Suspected Chronic GI Bleed w/ Chronic Anemia/Fe Deficiency: Will admit to [facility] given stable VS, Hgb stable from prior, guiac requested, maintain on IVFs, obtain serial H+H, maintain on IV PPI, maintain clears until midnight then NPO status, GI consulted and pending. #2. Hypokalemia: Admission K+ 3.2, magnesium level requested, supplementation given, repeat level in AM. #3. Hypertension: Continue home regimen including amlodipine, lisinopril with hold parameters as needed, PRN hydralazine. #4. Obesity: Weight loss and lifestyle changes encouraged. #5. History gastric bypass: Encourage continued outpatient diet as well as lifestyle interventions and continue IM monthly B12 injections. #6. DVT prophylaxis: Low risk, encourage ambulation, no chemoprophylaxis especially given #1. Charges/Coding Visit Charges OBSV E&M: 29913 Initial observation care L3
[2021-07-16 17:49] VITALS: BP 162/80; PULSE 97; RESP 18; TEMP 36.7; O2SAT 100
[2021-07-16 18:39] LABS: Magnesium 1.9 mg/dL (1.6-2.6)
[2021-07-16 18:41] VITALS: BMI 36.1
[2021-07-16 18:45] VITALS: BP 142/75; PULSE 90; RESP 18; TEMP 36.2; O2SAT 100
--- NOTE | 2021-07-16 19:17 | CON.PCM_ITS ---
Assessment & Plan Assessment/Plan (1) Anemia: PLAN: Severe microcytic anemia possibly secondary to iron deficiency anem ia from previous gastric bypass. However she does have a reactive thrombocytosis which could be consistent with recurrent upper GI bleed. Her BUN and creatinine ratio normal which I would suspect that she does not likely have ulcers in her upper GI tract. The differential diagnosis for severe microcytic anemia would be thalassemia, celiac disease, iron deficiency anemia from lack of absorption and acute blood loss anemia in the setting of anemia chronic disease. (2) Abdominal pain: PLAN: Abdominal pain possibly secondary to ulcer disease of the GI tract. (3) Acute GI bleeding: PLAN: She should undergo an upper endoscopy and colonoscopy for evaluation upper and lower GI tract. If that is normal then she should have a capsule endoscopy. She was explained alternatives, risk, benefits including underst anding bleeding, infection, sepsis, perforation, need for emergent . She should have an ASA 1. Would recommend iron transfusions as she cannot tolerate oral iron as an outpatient. HPI Consult Data Date of Consult: 07/16/21 HPI Narrative HPI Narrative: ISIDORO PENG, is a 36 F who presentsFrom home after being told to come to the ED for worsening anemia. She has a past medical history of chronic cholecystitis Status post cholecystectomy, chronic kidney stones status post lithotripsy and stent placement. She also has a past medical history of obesity status post gastric bypass. She says that after her bypass in 2016 she developed worsening anemia started in 2017. She said that her menstrual cycle was heavy but it is not heavy at this time. She says that she has had multiple ulcers in her small bowel of unknown etiology. She does not know if she had ulcers at the gastrojejunal jejunal anastomosis or the jejunal jejunal anastomo sis or the duodenal jejunal anastomosis. She does not not complain of any diarrhea but does have midepigastric pain and intermittent right lower quadrant pain. [facility] Medical History Back problem Bladder infection Excessive weight loss Gallstones High blood pressure Intertrigo Kidney stones Soft tissue mass Stomach ulcer Vitamin deficiency Home Medications ergocalciferol (vitamin D2) 50,000 unit PO TH 04/30/17 [History Last Taken 07/10/21] tamsulosin 0.4 mg PO DAILY PRN PRN 04/30/17 [History Last Taken 3 Weeks Ago ~06/25/21] lisinopril 40 mg PO BID 05/30/17 [History Last Taken 07/16/21] cyanocobalamin (vitamin B-12) 1,000 mcg IM Q30D 07/06/17 [History Last Taken 07/15/21] ondansetron 4 mg PO 4X/DAY PRN PRN #30 tab 03/16/19 [Rx Last Taken Unknown] amitriptyline 50 mg PO QHS PRN PRN 11/29/19 [History Last Taken 07/09/21] pantoprazole 40 mg PO BID PRN 03/15/20 [History Last Taken 07/16/21] sucralfate 1 gm PO 4X/DAY 03/15/20 [History Last Taken 07/14/21] amlodipine 10 mg PO DAILY 07/16/21 [History Last Taken 07/16/21] Allergy/AdvReac Type Severity Reaction Status Date / Time methocarbamol Allergy Chest Verified 07/16/21 13:16 tightness gabapentin AdvReac abnormal Verified 07/16/21 13:16 gait ketorolac tromethamine AdvReac Upset Verified 07/16/21 13:16 [From Toradol] Stomach NSAIDS (Non-Steroidal AdvReac gastric Verified 07/16/21 13:16 Anti-Inflamma bipass not supposed to take tramadol AdvReac Upset Verified 07/16/21 13:16 Stomach Family History Mother Anxiety Bleeding disorder Depression Hypertension High cholesterol Cancer Father Diabetes Hypertension Grandfather Colon cancer Diabetes Heart disease Surgical History History of cholecystectomy History of gastric bypass History of incision and drainage History of incision and drainage History of nephrolithotomy with removal of calculi History of thyroidectomy Status post panniculectomy (~09/17/16) Social History Smoking Status: Never smoker second hand exposure: Yes alcohol intake: current substance use type: does not use what type of physical activity do you participate in: other seatbelt use: always do you feel safe at home: Yes additional social history: SUN EXPOSURE: OCCASIONALLY ROS Gastrointestinal Gastrointestinal: Reports abdominal pain Physical Exam Const alert General Appearance: cooperative Orientation / Consciousness: oriented to person HEENT hearing grossly normal bilaterally Head and Scalp: normal to inspection Face and Sinus: face symmetric Nose: external nose normal Mouth: oral and palatal mucosa normal Eyes conjunctivae normal General Eye: normal appearance of both eyes Neck full ROM General: normal visual inspection Lymph Lymphatic: no lymphadenopathy noted Chest inspection of chest normal and palpation of chest normal Chest: symmetrical chest wall rise Resp normal respiratory effort Effort and Inspection: able to speak in complete sentences Cardio regular rate GI non-distended Percussion: normal to percussion Rectal Exam: deferred Neuro Speech: speech normal Gait (Neuro): normal gait Lab / Micro Data Result Diagrams: 07/16/21 15:40 07/16/21 15:40 Labs: Laboratory Results - last 24 hr 07/16/21 15:40: WBC 4.6, RBC 4.18 L, Hgb 8.0 L, Hct 27.9 L, MCV 66.7 L, MCH 19.1 L, MCHC 28.7 L, RDW Std Deviation 50.4 H, RDW Coeff of Andrez 22.2 H, Plt Count 592 H, MPV 10.5 07/16/21 15:40: Sodium 137, Potassium 3.2 L, Chloride 104, Carbon Dioxide 23.0, Anion Gap 10, BUN 10, Creatinine 0.68, Estim Creat Clear Calc 108.10, Est GFR (MDRD) Af Amer 125, Est GFR (MDRD) Non-Af 104, BUN/Creatinine Ratio 14.6, Glucose 99, Calcium 9.0 07/16/21 15:40: Blood Type A NEGATIVE, Antibody Screen NEGATIVE, Crossmatch See Detail 07/16/21 15:40: Magnesium 1.9 Charges/Coding Visit Charges Inpatient E&M: 22535 Init Hosp L3
[2021-07-16 20:57] LABS: Hematocrit 25.5 % (37-47); Hemoglobin 7.1 g/dL (12.0-15.0); POSITIVE MORPHOLOGY YES
[2021-07-16] MEDS: Electrolyte Solution/Peg's 4000 ML PO (21:43)
[2021-07-16] MEDS: 0.9% Normal Saline 1,000 ML 100 ML IV (21:43)
[2021-07-16] MEDS: Sucralfate 1 GM Tablet PO (21:44)
[2021-07-16] MEDS: Potassium Chloride Oral Tablet 20 MEQ 40 MEQ PO (21:55)
[2021-07-16] MEDS: Bisacodyl 5 MG Tablet 20 MG PO (21:55)
[2021-07-16] MEDS: Morphine 4 MG/ML Syringe IV (21:56)
[2021-07-16] MEDS: Metoclopramide 10 MG/2 ML Vial 5 MG IV (23:38)
[2021-07-17] VITALS (16 sets, daily range): BP systolic 112–149; BP diastolic 67–87; PULSE 76–93; RESP 16–18; TEMP 36.3–37.3; O2SAT 98–100; BMI 36.8
[2021-07-17] MEDS: Morphine 4 MG/ML Syringe IV ×4 (04:05→16:55)
[2021-07-17 05:16] LABS: Absolute Lymphocyte Count 0.56 X10^3/uL (0.83-4.51); Absolute Neutrophil Count 2.3 X10^3/uL (2.0-7.7); Basophil# 0.02 X10^3/uL; Basophil% 0.6 % (0-1); Eosinophil# 0.16 X10^3/uL; Eosinophils% 4.6 % (0-5); Hematocrit 27.9 % (37-47); Hemoglobin 7.7 g/dL (12.0-15.0); Lymphocyte # 0.56 X10^3/ul (0.83-4.51); Lymphocyte % 16.2 % (19-41); Mean Corp Hgb Conc 27.6 g/dL (32-36); Mean Corpuscular Hgb 19.5 pg (27.0-32.0); Mean Corpuscular Volume 70.6 fL (81-99); Mean Platelet Vol. 10.2 fl (6.2-12.0); Monocyte# 0.41 X10^3/uL; Monocyte% 11.8 % (0-10); NRBC Flagged by Analyzer 0 % (0-5); Neutrophil % 66.5 % (47-70); POSITIVE DIFFERENTIAL YES; POSITIVE MORPHOLOGY YES; Platelet Count 430 K/mm3 (150-450); RBC Distribution Width CV 21.9 % (11.6-14.6); RBC Distribution Width SD 54.7 fl (35.1-43.9); Red Blood Count 3.95 M/mm3 (4.2-5.4); White Blood Count 3.5 K/mm3 (4.4-11.0)
[2021-07-17 05:21] LABS: Differential Indicated SCAN CRITERIA MET
[2021-07-17] MEDS: Metoclopramide 10 MG/2 ML Vial 5 MG IV ×2 (05:50→11:40)
[2021-07-17 06:01] LABS: AST(SGOT) 386 U/L (15-37); Alanine Aminotransfer ALT/SGPT 130 U/L (13-56); Albumin, Serum 3.2 g/dL (3.2-5.0); Alkaline Phosphatase 152 U/L (45-117); Anion Gap 5 (5-15); BUN 8 mg/dL (7-18); BUN/Creat Ratio 14.3 RATIO (10-20); Calcium,Total 8.1 mg/dL (8.5-10.1); Chloride 108 mmol/L (98-107); Creatinine, Serum 0.56 mg/dL (0.55-1.02); EST Glomerular Filtration Rate 130 mL/min (>60); Est Glom Filt Rate - Afr Amer 158 mL/min (>60); Estimated Creatinine Clearance 131.26 ml/min; Globulin 3.2 g/dL (2.2-4.2); Glucose 91 mg/dL (74-106); Potassium 3.6 mmol/L (3.5-5.1); Protein, Total 6.4 g/dL (6.4-8.2); Sodium Level 137 mmol/L (136-145)
[2021-07-17 06:22] LABS: Anisocytosis 2+; Differential Comment SCANNED; Hypochromasia 2+; Microcytosis 2+
[2021-07-17] MEDS: Lisinopril 40 MG Tablet PO (08:57)
[2021-07-17] MEDS: amLODIPine 10 MG Tablet PO (08:57)
[2021-07-17] MEDS: 0.9% Normal Saline 1,000 ML 100 ML IV (09:17)
[2021-07-17 09:46] LABS: Internal QC Validated? YES +Cl - CLEAR BKGD; Pregnancy, Urine Negative Negative
--- NOTE | 2021-07-17 10:30 | CASEMGMT ---
RN CM SED SPECIAL EDUCATION TEACHER CM to room to meet with patient for initial transition planning/care coordination assessment. RN SHAKEEL introduced self and role at [facility].? Pt voices understanding and consents to assessment at this time.? Pt resting in bed in no distress at this time.? Pt is A/O at this time and answers all questions appropriately.?? Care providers, pharmacy, and demographics verified/updated at this time. PCP: Dr Murguia Specialists: none. Plans to f/u w/Dr Friend after d/c Preferred Pharmacy: [facility] Insurance: [facility] [employer] Plan [employer] Prescription Benefit:? Yes Living Will/HPOA:? Has HPOA, who is her sister, Arleen LNOK: Sister/POArAleen. Mother, Faith Living Arrangements: Lives w/mother in one-story home w/basement. Independent. Transportation: Pt states drives self. Mom will take her home @ d/c. DME: ? Denies using any DME and denies needs.? Used to wear a PAP, but has not needed it since Gastric Bypass in 2016. HHC/SNF: No hx of SNF. Has had HHC in the past when had wound vac. No needs identified at this time. Pt wishes to return home and states has no concerns with going home at time of discharge.? CM to follow for any discharge planning/needs.? Pt voices no concerns/needs at this time.? Advised pt to ask for CM if any questions/concerns/needs arise.? Voices understanding. PLAN: ?Home w/family support and discharge plans in place. Arabella GIFFORD RN, CM
--- NOTE | 2021-07-17 10:45 | PCM.PN.HOSP ---
Subjective Subjective Follow-up on severe anemia/suspected acute GI bleed/hypokalemia: Patient was seen and examined. She will be undergoing EGD/colonoscopy today. She was transfused 1 unit of packed RBC. Denies any dizziness or palpitation. She admits to some epigastric discomfort. Objective Data Objective Data Vital Signs: Vital Signs Temp Pulse Resp BP Pulse Ox 98.5 F 76 18 140/73 H 100 07/17/21 08:52 07/17/21 08:52 07/17/21 08:52 07/17/21 08:52 07/17/21 08:52 Oxygen Delivery Method Room Air Weight: 103.4 kg Body Mass Index (BMI) 36.1 Intake & Output: Intake and Output for Last 24 Hours 07/15/21 07/16/21 07/17/21 23:59 23:59 23:59 Intake Total 220 / 220 1515 / 1515 Balance 220 / 220 1515 / 1515 Lab / Micro Data Result Diagrams: 07/17/21 04:35 07/17/21 04:35 Labs: Laboratory Results - last 24 hr 07/16/21 15:40: WBC 4.6, RBC 4.18 L, Hgb 8.0 L, Hct 27.9 L, MCV 66.7 L, MCH 19.1 L, MCHC 28.7 L, RDW Std Deviation 50.4 H, RDW Coeff of Andrez 22.2 H, Plt Count 592 H, MPV 10.5 07/16/21 15:40: Sodium 137, Potassium 3.2 L, Chloride 104, Carbon Dioxide 23.0, Anion Gap 10, BUN 10, Creatinine 0.68, Estim Creat Clear Calc 108.10, Est GFR (MDRD) Af Amer 125, Est GFR (MDRD) Non-Af 104, BUN/Creatinine Ratio 14.6, Glucose 99, Calcium 9.0 07/16/21 15:40: Blood Type A NEGATIVE, Antibody Screen NEGATIVE, Crossmatch See Detail 07/16/21 15:40: Magnesium 1.9 07/16/21 20:25: Hgb 7.1 L, Hct 25.5 L 07/17/21 04:35: WBC 3.5 L, RBC 3.95 L, Hgb 7.7 L, Hct 27.9 L, MCV 70.6 L D, MCH 19.5 L, MCHC 27.6 L, RDW Std Deviation 54.7 H, RDW Coeff of Andrez 21.9 H, Plt Count 430, MPV 10.2, Immature Gran % (Auto) 0.300, Neut % (Auto) 66.5, Lymph % (Auto) 16.2 L, Chambers % (Auto) 11.8 H, Eos % (Auto) 4.6, Baso % (Auto) 0.6, Absolute Neuts (auto) 2.3, Absolute Lymphs (auto) 0.56 L, Nucleated RBC % 0, Differential Comment SCANNED, Diff Path Review May foll, Hypochromasia 2+, Anisocytosis 2+, Microcytosis 2+ 07/17/21 04:35: Sodium 137, Potassium 3.6, Chloride 108 H, Carbon Dioxide 24.0, Anion Gap 5, BUN 8, Creatinine 0.56, Estim Creat Clear Calc 131.26, Est GFR (MDRD) Af Amer 158, Est GFR (MDRD) Non-Af 130, BUN/Creatinine Ratio 14.3, Glucose 91, Calcium 8.1 L, Total Bilirubin 1.80 H, AST 386 H, ALT 130 H, Alkaline Phosphatase 152 H, Total Protein 6.4, Albumin 3.2, Globulin 3.2, Albumin/Globulin Ratio 1.0 07/17/21 08:41: Urine Test Negative Physical Exam Narrative Physical exam: General: Alert, Oriented x3, Cooperative, No apparent distress, Well developed HEENT: Atraumatic Oral: Moist Mucosa Neck: Supple Lungs: Clear to auscultation Cardiovascular: HS I+II, regular, no murmurs Abdomen: Bowel Sounds Present, Soft, Non Tender Extremities: No edema Skin: No rashes, No breakdown Neurological: Grossly intact Psych/Mental Status: Appropriate Assessment & Plan Assessment/Plan (1) Acute GI bleeding: (2) Anemia: QUALIFIERS: Anemia type: unspecified type Qualified Code(s): D64.9 - Anemia, unspecified PLAN: 1. Acute on chronic iron deficiency anemia, status post 1 unit of packed RBC, hemoglobin this morning is 7.7 We will continue to trend, will transfuse less than 7 2. Acute on chronic hospital GI bleed, history of gastric bypass Patient is going for EGD/colonoscopy 3. Hypokalemia, replaced, recheck in a.m. 4. Hypertension, controlled, continue amlodipine, lisinopril 5. Obesity, BMI 36.8, lifestyle modification recommended 6. DVT prophylaxis?low risk, early ambulation recommended Charges/Coding Visit Charges Inpatient E&M: 49066 Subs Hosp L2
[2021-07-17] MEDS: 0.9% Saline Lock 10 ML Syringe IV ×2 (11:43→22:34)
--- NOTE | 2021-07-17 16:09 | NURSING ---
Stool still not clear. This nurse attempted to get a hold of Dr. Roberson via Cortext to inform before [address] Roberson did not call back. At 1530, this nurse called Dr. Roberson via machine feed operator and he called back and was aware. Tap Water Enema ordered and given. Stool was a light green with flecks but clear. Surgery took pt down via bed. Pt is out of the room/off of floor at this time.
--- NOTE | 2021-07-17 19:22 | PCM.PROGNOTE ---
Subjective Subjective Attempted to sedate the patient for an EGD and colonoscopy to look for signs of GI bleeding. However she was not able to be sedated with medicines that were given. She received maximal dosage of propofol and etomidate and she still remained awake the entire time. Objective Data Objective Data Vital Signs: Vital Signs Temp Pulse Resp BP Pulse Ox 97.4 F L 84 16 145/87 H 100 07/17/21 13:48 07/17/21 13:48 07/17/21 13:48 07/17/21 13:48 07/17/21 13:48 Oxygen Delivery Method Room Air Weight: 227 lb 15.327 oz Body Mass Index (BMI) 36.8 Intake & Output: Intake and Output for Last 24 Hours 07/15/21 07/16/21 07/17/21 23:59 23:59 23:59 Intake Total 220 / 220 1515 / 1515 Output Total 400 / 400 Balance 220 / 220 1115 / 1115 Lab / Micro Data Result Diagrams: 07/17/21 04:35 07/17/21 04:35 Labs: Laboratory Results - last 24 hr 07/16/21 15:40: Blood Type A NEGATIVE, Antibody Screen NEGATIVE, Crossmatch See Detail 07/16/21 20:25: Hgb 7.1 L, Hct 25.5 L 07/17/21 04:35: WBC 3.5 L, RBC 3.95 L, Hgb 7.7 L, Hct 27.9 L, MCV 70.6 L D, MCH 19.5 L, MCHC 27.6 L, RDW Std Deviation 54.7 H, RDW Coeff of Andrez 21.9 H, Plt Count 430, MPV 10.2, Immature Gran % (Auto) 0.300, Neut % (Auto) 66.5, Lymph % (Auto) 16.2 L, Jerome % (Auto) 11.8 H, Eos % (Auto) 4.6, Baso % (Auto) 0.6, Absolute Neuts (auto) 2.3, Absolute Lymphs (auto) 0.56 L, Nucleated RBC % 0, Differential Comment SCANNED, Diff Path Review May foll, Hypochromasia 2+, Anisocytosis 2+, Microcytosis 2+ 07/17/21 04:35: Sodium 137, Potassium 3.6, Chloride 108 H, Carbon Dioxide 24.0, Anion Gap 5, BUN 8, Creatinine 0.56, Estim Creat Clear Calc 131.26, Est GFR (MDRD) Af Amer 158, Est GFR (MDRD) Non-Af 130, BUN/Creatinine Ratio 14.3, Glucose 91, Calcium 8.1 L, Total Bilirubin 1.80 H, AST 386 H, ALT 130 H, Alkaline Phosphatase 152 H, Total Protein 6.4, Albumin 3.2, Globulin 3.2, Albumin/Globulin Ratio 1.0 07/17/21 08:41: Urine Test Negative Physical Exam Const alert General Appearance: cooperative Orientation / Consciousness: oriented to person HEENT hearing grossly normal bilaterally Head and Scalp: normal to inspection Face and Sinus: face symmetric Nose: external nose normal Mouth: oral and palatal mucosa normal Eyes conjunctivae normal General Eye: normal appearance of both eyes Neck full ROM General: normal visual inspection Lymph Lymphatic: no lymphadenopathy noted Chest inspection of chest normal and palpation of chest normal Chest: symmetrical chest wall rise Resp normal respiratory effort Effort and Inspection: able to speak in complete sentences Cardio regular rate GI non-distended Percussion: normal to percussion Rectal Exam: deferred Neuro Speech: speech normal Gait (Neuro): normal gait Assessment & Plan Assessment/Plan (1) Acute on chronic blood loss anemia: PLAN: She will undergo EGD and colonoscopy tomorrow for evaluation of her upper and lower GI tract and her gastric bypass. She can have clear liquids tonight and she can have crackers as the only solid food she can eat tonight. Charges/Coding Visit Charges Inpatient E&M: 79238 Subs Hosp L2
[2021-07-17] MEDS: Sucralfate 1 GM Tablet PO (22:31)
[2021-07-17] MEDS: Morphine 2 MG/ML Syringe IV (22:35)
[2021-07-18] VITALS (13 sets, daily range): BP systolic 138–170; BP diastolic 72–105; PULSE 65–126; RESP 16–18; TEMP 36.4–37.2; O2SAT 97–100; BMI 36.8
[2021-07-18 06:30] LABS: Absolute Lymphocyte Count 0.56 X10^3/uL (0.83-4.51); Absolute Neutrophil Count 1.2 X10^3/uL (2.0-7.7); Basophil# 0.04 X10^3/uL; Basophil% 1.7 % (0-1); Eosinophil# 0.16 X10^3/uL; Hematocrit 26.1 % (37-47); Hemoglobin 7.5 g/dL (12.0-15.0); Lymphocyte # 0.56 X10^3/ul (0.83-4.51); Lymphocyte % 24.5 % (19-41); Mean Corp Hgb Conc 28.7 g/dL (32-36); Mean Corpuscular Hgb 20.1 pg (27.0-32.0); Mean Platelet Vol. 10.9 fl (6.2-12.0); Monocyte# 0.33 X10^3/uL; Monocyte% 14.4 % (0-10); NRBC Flagged by Analyzer 0 % (0-5); Neutrophil % 52.4 % (47-70); POSITIVE DIFFERENTIAL YES; POSITIVE MORPHOLOGY YES; Platelet Count 397 K/mm3 (150-450); RBC Distribution Width CV 21.7 % (11.6-14.6); RBC Distribution Width SD 53.9 fl (35.1-43.9); Red Blood Count 3.73 M/mm3 (4.2-5.4); White Blood Count 2.3 K/mm3 (4.4-11.0)
[2021-07-18] MEDS: Sucralfate 1 GM Tablet PO ×3 (06:30→22:48)
[2021-07-18] MEDS: Metoclopramide 10 MG/2 ML Vial 5 MG IV ×3 (06:30→18:04)
[2021-07-18] MEDS: Morphine 2 MG/ML Syringe IV ×2 (06:30→09:34)
[2021-07-18] MEDS: 0.9% Saline Lock 10 ML Syringe IV ×3 (06:31→09:35)
[2021-07-18 06:36] LABS: Differential Indicated SCAN CRITERIA MET
[2021-07-18 06:46] LABS: Anisocytosis 2+; Differential Comment SCANNED; Hypochromasia 1+; Microcytosis 2+
[2021-07-18 07:11] LABS: ALB/GLOB Ratio 0.8 RATIO (0.9-2.4); AST(SGOT) 161 U/L (15-37); Alanine Aminotransfer ALT/SGPT 137 U/L (13-56); Albumin, Serum 2.7 g/dL (3.2-5.0); Alkaline Phosphatase 191 U/L (45-117); Anion Gap 6 (5-15); BUN 6 mg/dL (7-18); BUN/Creat Ratio 12.6 RATIO (10-20); Calcium,Total 8.3 mg/dL (8.5-10.1); Chloride 111 mmol/L (98-107); Creatinine, Serum 0.48 mg/dL (0.55-1.02); EST Glomerular Filtration Rate 157 mL/min (>60); Est Glom Filt Rate - Afr Amer 190 mL/min (>60); Estimated Creatinine Clearance 153.14 ml/min; Globulin 3.3 g/dL (2.2-4.2); Glucose 81 mg/dL (74-106); Potassium 3.6 mmol/L (3.5-5.1); Sodium Level 139 mmol/L (136-145)
[2021-07-18] MEDS: Lisinopril 40 MG Tablet PO (08:36)
[2021-07-18] MEDS: amLODIPine 10 MG Tablet PO (08:38)
[2021-07-18] MEDS: 0.9% Normal Saline 1,000 ML 100 ML IV ×2 (09:36)
--- NOTE | 2021-07-18 15:00 | EGD_PTH ---
PATIENT: ISIDORO PENG LOC: MS3 U#:[id number] AGE/SX: 36/F ROOM: ME318 RE07/16/[address]: Dr. Emperatriz Noel MD : 1985 BED: 1 DIS: 07/19/2021 SPEC #: [id number] RECD: 07/18/21 16:38 STATUS: RAFAELA CASEY #: [id number] ANGELA: 07/18/21 15:[address]: Emperatriz Noel DEPT: SURGICAL PATHOLOGY RECD BY: Lucinda Jackson ENTERED: 07/21/21 08:24 SP TYPE: EGD BIOPSY [facility] DR: MD Dr. Patricio Hood MD Tissues: Gastric mucous membrane Procedures: Surgery Specimen Level IV HEADER OPERATION: [place]oscopy, [place] DIAGNOSIS: Anemia TISSUE SUBMITTED: Gastric jejunal anastomosis biopsy MICROSCOPIC DIAGNOSIS Gastric jejunal anastomosis, biopsy: Fragments of gastric and small intestinal mucosa with congestion and hemorrhage. Multiple detached fragments of fibrinopurulent exudate. See comment. MORENA:lucinda 07/22/2021 COMMENT Clinical correlation and appropriate follow up are necessary. MICROSCOPIC DESCRIPTION Slides are reviewed. GROSS DESCRIPTION Received in fixative is one container labeled with the patient's name and designated gastric jejunal anastomosis. The specimen consists of multiple irregular fragments of light motley soft tissue that in aggregate measure 1 x 0.5 x 0.1 cm. The specimen is totally submitted in one cassette. / MORENA:lucinda 07/21/2021 TC:2 CPT: 28613
--- NOTE | 2021-07-18 15:27 | PCM.PN.HOSP ---
Subjective Subjective Follow-up on severe anemia/suspected acute GI bleed/hypokalemia: Patient was seen and examined. She is going to have EGD/colonoscopy today. She could not be sedated yesterday. No other events overnight. Objective Data Objective Data Vital Signs: Vital Signs Temp Pulse Resp BP Pulse Ox 98.6 F 90 18 157/80 H 98 07/18/21 13:19 07/18/21 13:19 07/18/21 13:19 07/18/21 13:19 07/18/21 13:19 Oxygen Delivery Method Room Air Weight: 103.4 kg Body Mass Index (BMI) 36.8 Intake & Output: Intake and Output for Last 24 Hours 07/16/21 07/17/21 07/18/21 23:59 23:59 23:59 Intake Total 220 / 220 2620 / 2620 1128.33 / 1128.33 Output Total 400 / 400 Balance 220 / 220 2220 / 2220 1128.33 / 1128.33 Lab / Micro Data Result Diagrams: 07/18/21 05:40 07/18/21 05:40 Labs: Laboratory Results - last 24 hr 07/18/21 05:40: WBC 2.3 L, RBC 3.73 L, Hgb 7.5 L, Hct 26.1 L, MCV 70.0 L, MCH 20.1 L, MCHC 28.7 L, RDW Std Deviation 53.9 H, RDW Coeff of Andrez 21.7 H, Plt Count 397, MPV 10.9, Immature Gran % (Auto) 0.000, Neut % (Auto) 52.4, Lymph % (Auto) 24.5, Mcdonald % (Auto) 14.4 H, Eos % (Auto) 7.0 H, Baso % (Auto) 1.7 H, Absolute Neuts (auto) 1.2 L, Absolute Lymphs (auto) 0.56 L, Nucleated RBC % 0, Differential Comment SCANNED, Diff Path Review May foll, Hypochromasia 1+, Anisocytosis 2+, Microcytosis 2+ 07/18/21 05:40: Sodium 139, Potassium 3.6, Chloride 111 H, Carbon Dioxide 22.0, Anion Gap 6, BUN 6 L, Creatinine 0.48 L, Estim Creat Clear Calc 153.14, Est GFR (MDRD) Af Amer 190, Est GFR (MDRD) Non-Af 157, BUN/Creatinine Ratio 12.6, Glucose 81, Calcium 8.3 L, Total Bilirubin 0.70, AST 161 H, ALT 137 H, Alkaline Phosphatase 191 H, Total Protein 6.0 L, Albumin 2.7 L, Globulin 3.3, Albumin/Globulin Ratio 0.8 L Physical Exam Narrative Physical exam: General: Alert, Oriented x3, Cooperative, No apparent distress, Well developed HEENT: Atraumatic Oral: Moist Mucosa Neck: Supple Lungs: Clear to auscultation Cardiovascular: HS I+II, regular, no murmurs Abdomen: Bowel Sounds Present, Soft, Non Tender Extremities: No edema Skin: No rashes, No breakdown Neurological: Grossly intact Psych/Mental Status: Appropriate Assessment & Plan Assessment/Plan (1) Acute GI bleeding: (2) Anemia: QUALIFIERS: Anemia type: unspecified type Qualified Code(s): D64.9 - Anemia, unspecified PLAN: 1. Acute on chronic iron deficiency anemia, status post 1 unit of packed RBC, hemoglobin this morning is 7.5 We will continue to trend, will transfuse less than 7 2. Acute on chronic hospital GI bleed, history of gastric bypass Patient is going for EGD/colonoscopy 3. Hypokalemia, replaced 4. Hypertension, controlled, continue amlodipine, lisinopril 5. Elevated liver enzymes, improving 6. Obesity, BMI 36.8, lifestyle modification recommended 7. DVT prophylaxis?low risk, early ambulation recommended Charges/Coding Visit Charges Inpatient E&M: 31175 Subs Hosp L2
--- NOTE | 2021-07-18 15:59 | OP.CCLET_ITS ---
12/18/2021 Patricio Murguia Re : Upper GI endoscopy procedure for Tramaine Donahue Blade This procedure was performed on Sunday, July 18, 2021. My impressions and recommendations are as follows: Impressions : - LA Grade A reflux esophagitis. Biopsied. - Og-en-Y gastrojejunostomy with gastrojejunal anastomosis characterized by congestion, edema, erosion, erythema, a hemorrhagic appearance, ulceration and moderate stenosis. Biopsied. Treated with a heater probe. Dilated. - Normal examined jejunum. Recommendations : - Discharge patient to home. - Full liquid diet today. - Use Protonix (pantoprazole) 40 mg PO BID for 8 weeks. - Use misoprostol 200 micrograms PO QID for 4 weeks. - Continue present medications. My findings are described in the full procedure note, which is enclosed. If I can be of further assistance, please feel free to contact me at . Sincerely, Heath Friend, 07/18/2021 3:58:57 PM This report has been signed electronically.
--- NOTE | 2021-07-18 15:59 | OP.EGD_ITS ---
Patient Name: Tramaine Salazar Procedure Date: 07/18/2021 1:00 PM Date of : 1985 Age: 36 Procedure: Upper GI endoscopy Indications: Epigastric abdominal pain, Melena Providers: Heath Roberson DO Medicines: Monitored Anesthesia Care Patient Profile: This is a 36 year old female. Refer to note in patient chart for documentation of history and physical. Patient has symptoms of chronic epigastric abdominal pain. Complications: No immediate complications. Procedure: Pre-Anesthesia Assessment: - Prior to the procedure, a History and Physical was performed, and patient medications and allergies were reviewed. The risks and benefits of the procedure and the sedation options and risks were discussed with the patient. All questions were answered and informed consent was obtained. Patient identification and proposed procedure were verified by the physician in the pre-procedure area. Mental Status Examination: alert and oriented. Airway Examination: normal oropharyngeal airway and neck mobility. Respiratory Examination: clear to auscultation. CV Examination: normal. Prophylactic Antibiotics: The patient does not require prophylactic antibiotics. Prior Anticoagulants: The patient has taken no previous anticoagulant or antiplatelet agents. ASA Grade Assessment: II - A patient with mild systemic disease. After reviewing the risks and benefits, the patient was deemed in satisfactory condition to undergo the procedure. The anesthesia plan was to use moderate sedation / analgesia (conscious sedation). Immediately prior to administration of medications, the patient was re-assessed for adequacy to receive sedatives. The heart rate, respiratory rate, oxygen saturations, blood pressure, adequacy of pulmonary ventilation, and response to care were monitored throughout the procedure. The physical status of the patient was re-assessed after the procedure. After obtaining informed consent, the endoscope was passed under direct vision. Throughout the procedure, the patient's blood pressure, pulse, and oxygen saturations were monitored continuously. The Colonoscope was introduced through the mouth, and advanced to the jejunum. The upper GI endoscopy was accomplished without difficulty. The patient tolerated the procedure well. Scope In: 3:14:34 PM Scope Out: 3:25:37 PM Total Procedure Duration Time 0 hours 11 minutes 3 seconds Findings: LA Grade A (one or more mucosal breaks less than 5 mm, not extending between tops of 2 mucosal folds) esophagitis with no bleeding was found 37 to 40 cm from the incisors. Biopsies were taken with a cold forceps for histology. Evidence of a Og-en-Y gastrojejunostomy was found. The gastrojejunal anastomosis was characterized by congestion, edema, erosion, erythema, a hemorrhagic appearance, moderate stenosis and ulceration. This was traversed after dilation. The gcpov-ql-[id number] limb was characterized by edema and erythema. The jejunojejunal anastomosis was characterized by healthy appearing mucosa. The aqfawvhi-kh-etjvqsj limb was not examined as it could not be found. Biopsies were taken with a cold forceps for histology. Verification of patient identification for the specimen was done. Coagulation for hemostasis using heater probe was successful. A TTS dilator was passed through the scope. Dilation with a 15 mm anastomotic balloon dilator was performed. The dilation site was examined and showed mild improvement in luminal narrowing. Estimated blood loss was minimal. The examined jejunum was normal. Impression: - LA Grade A reflux esophagitis. Biopsied. - Og-en-Y gastrojejunostomy with gastrojejunal anastomosis characterized by congestion, edema, erosion, erythema, a hemorrhagic appearance, ulceration and moderate stenosis. Biopsied. Treated with a heater probe. Dilated. - Normal examined jejunum. Recommendation: - Discharge patient to home. - Full liquid diet today. - Use Protonix (pantoprazole) 40 mg PO BID for 8 weeks. - Use misoprostol 200 micrograms PO QID for 4 weeks. - Continue present medications. Procedure Code(s): --- Professional --- 12834, 59, Esophagogastroduodenoscopy, flexible, transoral; with control of bleeding, any method 57670, Esophagogastroduodenoscopy, flexible, transoral; with dilation of gastric/duodenal stricture(s) (eg, balloon, bougie) 75549, 59, Esophagogastroduodenoscopy, flexible, transoral; with biopsy, single or multiple CPT copyright 2017 [employer]. All rights reserved. The codes documented in this report are preliminary and upon medical doctor md review may be revised to meet current compliance requirements. Heath Roberson DO 07/18/2021 3:58:57 PM This report has been signed electronically. Number of Addenda: 1 Note Initiated On: 07/18/2021 1:00 PM Addendum Number: 1 Addendum Date: 12/18/2021 6:21:46 AM MAC was used as sedation for this procedure. Heath Roberson DO 12/18/2021 6:22:02 AM This report has been signed electronically.
--- NOTE | 2021-07-18 16:03 | OP.CCLET_ITS ---
12/18/2021 Patricio Murguia Re : Colonoscopy procedure for Tramaine Diazr Blade This procedure was performed on Sunday, July 18, 2021. My impressions and recommendations are as follows: Impressions : - Preparation of the colon was fair. - The entire examined colon is normal. - Stool in the recto-sigmoid colon, in the sigmoid colon, in the descending colon, at the splenic flexure and in the cecum. - The examined portion of the ileum was normal. - No specimens collected. Recommendations : - [facility]. - Full liquid diet. - Continue present medications. - Repeat colonoscopy in 5 years for surveillance. - No repeat colonoscopy [Reason]. My findings are described in the full procedure note, which is enclosed. If I can be of further assistance, please feel free to contact me at . Sincerely, Heath Roberson, 07/18/2021 4:02:19 PM This report has been signed electronically.
--- NOTE | 2021-07-18 16:03 | OP.COLON_ITS ---
Patient Name: Tramaine Salazar Procedure Date: 07/18/2021 3:25 PM Date of : 1985 Age: 36 Procedure: Colonoscopy Indications: Melena, Iron deficiency anemia Providers: Heath Roberson DO Medicines: Monitored Anesthesia Care Patient Profile: This is a 36 year old female. Refer to note in patient chart for documentation of history and physical. Patient has symptoms of chronic epigastric abdominal pain. Last Colonoscopy: none. The patient's first colonoscopy is today. Complications: No immediate complications. Procedure: Pre-Anesthesia Assessment: - Prior to the procedure, a History and Physical was performed, and patient medications and allergies were reviewed. The risks and benefits of the procedure and the sedation options and risks were discussed with the patient. All questions were answered and informed consent was obtained. Patient identification and proposed procedure were verified by the physician in the pre-procedure area. Mental Status Examination: alert and oriented. Airway Examination: normal oropharyngeal airway and neck mobility. Respiratory Examination: clear to auscultation. CV Examination: normal. Prophylactic Antibiotics: The patient does not require prophylactic antibiotics. Prior Anticoagulants: The patient has taken no previous anticoagulant or antiplatelet agents. ASA Grade Assessment: II - A patient with mild systemic disease. After reviewing the risks and benefits, the patient was deemed in satisfactory condition to undergo the procedure. The anesthesia plan was to use moderate sedation / analgesia (conscious sedation). Immediately prior to administration of medications, the patient was re-assessed for adequacy to receive sedatives. The heart rate, respiratory rate, oxygen saturations, blood pressure, adequacy of pulmonary ventilation, and response to care were monitored throughout the procedure. The physical status of the patient was re-assessed after the procedure. After I obtained informed consent, the scope was passed under direct vision. Throughout the procedure, the patient's blood pressure, pulse, and oxygen saturations were monitored continuously. The Colonoscope was introduced through the anus and advanced to the terminal ileum. The colonoscopy was performed without difficulty. The patient tolerated the procedure well. The quality of the bowel preparation was fair. Scope In: 3:30:12 PM Scope Withdrawal Time 0 hours 8 minutes 27 seconds Scope Out: 3:43:00 PM Total Procedure Duration Time 0 hours 12 minutes 48 seconds Findings: The colon (entire examined portion) appeared normal. Estimated blood loss: none. A moderate amount of stool was found in the recto-sigmoid colon, in the sigmoid colon, in the descending colon, at the splenic flexure and in the cecum, making visualization difficult. Lavage of the area was performed using 50 - 200 mL of sterile water, resulting in clearance with fair visualization. The terminal ileum appeared normal. Impression: - Preparation of the colon was fair. - The entire examined colon is normal. - Stool in the recto-sigmoid colon, in the sigmoid colon, in the descending colon, at the splenic flexure and in the cecum. - The examined portion of the ileum was normal. - No specimens collected. Recommendation: - [facility]. - Full liquid diet. - Continue present medications. - Repeat colonoscopy in 5 years for surveillance. - No repeat colonoscopy [Reason]. Procedure Code(s): --- Professional --- 89013, Colonoscopy, flexible; diagnostic, including collection of specimen(s) by brushing or washing, when performed (separate procedure) CPT copyright 2017 [employer]. All rights reserved. The codes documented in this report are preliminary and upon customs director review may be revised to meet current compliance requirements. Heath Roberson DO 07/18/2021 4:02:19 PM This report has been signed electronically. Number of Addenda: 1 Note Initiated On: 07/18/2021 3:25 PM Addendum Number: 1 Addendum Date: 12/18/2021 6:22:13 AM MAC was used as sedation for this procedure. Heath Roberson DO 12/18/2021 6:22:17 AM This report has been signed electronically.
[2021-07-18] MEDS: Mag Hydrox/Al Hydrox/Simeth 30 ML UDC PO (18:53)
[2021-07-18] MEDS: oxyCODONE 5 MG Tablet PO (18:53)
[2021-07-19] MEDS: Metoclopramide 10 MG/2 ML Vial 5 MG IV ×2 (00:12→05:38)
[2021-07-19] MEDS: 0.9% Saline Lock 10 ML Syringe IV ×2 (00:12→05:38)
[2021-07-19] MEDS: 0.9% Normal Saline 1,000 ML 15 ML IV (00:16)
[2021-07-19 05:00] VITALS: BP 133/79; PULSE 96; RESP 16; TEMP 37.1; O2SAT 98
[2021-07-19] MEDS: Sucralfate 1 GM Tablet PO (05:38)
[2021-07-19 07:16] LABS: Absolute Lymphocyte Count 0.54 X10^3/uL (0.83-4.51); Absolute Neutrophil Count 2.3 X10^3/uL (2.0-7.7); Basophil# 0.03 X10^3/uL; Basophil% 0.9 % (0-1); Eosinophil# 0.12 X10^3/uL; Eosinophils% 3.6 % (0-5); Hematocrit 27.9 % (37-47); Hemoglobin 7.9 g/dL (12.0-15.0); Lymphocyte # 0.54 X10^3/ul (0.83-4.51); Lymphocyte % 16.1 % (19-41); Mean Corp Hgb Conc 28.3 g/dL (32-36); Mean Corpuscular Hgb 19.9 pg (27.0-32.0); Mean Corpuscular Volume 70.5 fL (81-99); Mean Platelet Vol. 10.2 fl (6.2-12.0); Monocyte# 0.35 X10^3/uL; Monocyte% 10.4 % (0-10); NRBC Flagged by Analyzer 0 % (0-5); Neutrophil # 2.31 X10^3/uL (2.7-7.7); Neutrophil % 68.7 % (47-70); POSITIVE DIFFERENTIAL YES; POSITIVE MORPHOLOGY YES; Platelet Count 437 K/mm3 (150-450); RBC Distribution Width CV 22.5 % (11.6-14.6); RBC Distribution Width SD 55.4 fl (35.1-43.9); Red Blood Count 3.96 M/mm3 (4.2-5.4); White Blood Count 3.4 K/mm3 (4.4-11.0)
[2021-07-19 07:27] LABS: Differential Indicated SCAN CRITERIA MET
[2021-07-19 07:40] LABS: ALB/GLOB Ratio 0.8 RATIO (0.9-2.4); AST(SGOT) 52 U/L (15-37); Alanine Aminotransfer ALT/SGPT 100 U/L (13-56); Albumin, Serum 2.9 g/dL (3.2-5.0); Alkaline Phosphatase 184 U/L (45-117); Anion Gap 6 (5-15); BUN 4 mg/dL (7-18); BUN/Creat Ratio 7.7 RATIO (10-20); Calcium,Total 8.4 mg/dL (8.5-10.1); Chloride 107 mmol/L (98-107); Creatinine, Serum 0.52 mg/dL (0.55-1.02); EST Glomerular Filtration Rate 143 mL/min (>60); Est Glom Filt Rate - Afr Amer 173 mL/min (>60); Estimated Creatinine Clearance 141.36 ml/min; Globulin 3.5 g/dL (2.2-4.2); Glucose 107 mg/dL (74-106); Potassium 3.6 mmol/L (3.5-5.1); Protein, Total 6.4 g/dL (6.4-8.2); Sodium Level 139 mmol/L (136-145)
[2021-07-19 07:47] LABS: Differential Comment SCANNED
[2021-07-19 07:48] LABS: Anisocytosis 2+; Hypochromasia 1+; Macrocytosis 1+; Microcytosis 1+
[2021-07-19 08:19] VITALS: BP 142/71; PULSE 92; RESP 16; TEMP 36.9; O2SAT 100
--- NOTE | 2021-07-19 08:19 | DCINST_ITS ---
Discharge Instructions Diet Discharge Diet: 2000 mg Sodium Diet Activity Discharge Activity: Return to Normal Activity Follow Up Care Test Results: Test results from this visit will be discussed in further detail at your follow-up appointment, if applicable. Discharge Plan Admission Admit Date/Time: 07/16/21 17:43 Primary Reason for Your Visit: Anemia, abdominal discomfort, black stools Attending Provider: Emperatriz Noel Primary Care Provider: Patricio Murguia Instructions Additional Instructions / Restrictions: Take note of your new medications. Continue to keep yourself hydrated. Follow- up with GI in the outpatient. Discharge Orders/Prescriptions Prescriptions: New ferrous sulfate [FeroSul] 325 mg (65 mg iron) Tablet 325 mg PO DAILYCM 30 Days Qty: 30 RF: 0 acidophilus-pectin, citrus 25 million cell -100 mg Tablet 1 tab PO BID 30 Days Qty: 60 RF: 0 misoprostol 200 mcg tablet 200 mcg PO .qid 30 Days Qty: 120 RF: 0 Continued tamsulosin 0.4 MG capsule 0.4 mg PO DAILY PRN PRN (Reason: kidney stones) RF: 0 ergocalciferol (vitamin D2) 50,000 UNIT capsule 50,000 unit PO TH RF: 0 lisinopril 40 MG tablet 40 mg PO BID RF: 0 cyanocobalamin (vitamin B-12) 1,000 MCG/ML solution 1,000 mcg IM Q30D RF: 0 ondansetron 4 MG tablet 4 mg PO 4X/DAY PRN PRN (Reason: Nausea) Qty: 30 RF: 1 amitriptyline 50 MG tablet 50 mg PO QHS PRN PRN (Reason: Sleep) RF: 0 sucralfate 1 GM tablet 1 gm PO 4X/DAY RF: 0 amlodipine 10 mg tablet 10 mg PO DAILY RF: 0 Changed pantoprazole 40 MG tablet 40 mg PO BID 30 Days Qty: 0 RF: 0 Referrals / Follow Up: Heath Roberson DO [STAFF PHYSICIAN] - Within 2 Weeks Patricio Murguia MD [Primary Care Provider] - In 1 Week Disposition Disposition (needs filled in before D/C Order can be placed): Home, Self Care
[2021-07-19] MEDS: Lisinopril 40 MG Tablet PO (08:28)
[2021-07-19] MEDS: amLODIPine 10 MG Tablet PO (08:29)
[2021-07-19] MEDS: Ferrous Sulfate 325 MG Tablet PO (08:29)
[2021-07-19 08:41] LABS: Platelet Count 437 K/mm3 (150-450); RET-HE 21.3 pg (30-35); Reticulocyte Count 1.59 % (0.5-1.5)
[2021-07-19 08:44] LABS: Ferritin 12 ng/mL (8-252); Iron 12 ug/dL (50-170); Iron Binding Capacity,Total 471 ug/dL (250-450); PERCENT IRON SATURATION 2.5 % (15.0-55.0)
--- NOTE | 2021-07-19 09:00 | DS.PCM_ITS ---
Providers Date of Admission: 07/16/21 Date of Discharge: 07/19/21 Primary Care Physician: Dr. Patricio Murguia MD Consultations 07/16/21 18:52 Consult: Gastroenterology Routine Consulting Provider: Jesus Alberto Gastroenterology Reason for Consult: GI bleed, hx gastric vs duodenal ulcer, anemia EMERGENT Consult: No MD Notified: Yes Date Notified: 07/16/21 Time Notified: 17:45 Method of Notification: Text Reason For Visit: GI BLEED, ANEMIA Diagnosis Discharge Diagnosis (1) Acute GI bleeding: Status: Resolved Code(s): K92.2 - Gastrointestinal hemorrhage, unspecified (2) Anemia: Status: Chronic Code(s): D64.9 - Anemia, unspecified Qualifiers: Anemia type: unspecified type Qualified Code(s): D64.9 - Anemia, unspecified Medications at Discharge Home Medications ergocalciferol (vitamin D2) 50,000 unit PO TH 04/30/17 tamsulosin 0.4 mg PO DAILY PRN PRN 04/30/17 lisinopril 40 mg PO BID 05/30/17 cyanocobalamin (vitamin B-12) 1,000 mcg IM Q30D 07/06/17 ondansetron 4 mg PO 4X/DAY PRN PRN #30 tab 03/16/19 amitriptyline 50 mg PO QHS PRN PRN 11/29/19 sucralfate 1 gm PO 4X/DAY 03/15/20 amlodipine 10 mg PO DAILY 07/16/21 acidophilus-pectin, citrus 1 tab PO BID 30 Days #60 tab 07/19/21 ferrous sulfate [FeroSul] 325 mg PO DAILYCM 30 Days #30 tab 07/19/21 misoprostol 200 mcg PO .qid 30 Days #120 tab 07/19/21 pantoprazole 40 mg PO BID 30 Days #0 tab 07/19/21 Hospital Course Operations None Procedures Colonoscopy (07/19/21) and EGD (07/19/21) Summary of Care Provided Minutes Spent on Discharge: 35 Hospital Course: 36 y/o female with past medical history of bariatric surgery, history of gastric versus duodenal ulcer chronic anemia who comes in with abdominal discomfort that has been intermittent, worsening the last couple of weeks. Patient also noted melanotic stools. She has previously been transfused. Her BMP showed potassium of 3.2. Patient's admitting hemoglobin was 7.1 and she was transfused 1 unit of packed RBC. Patient underwent EGD and colonoscopy on 07/18/21. EGD showed LA Grade A reflux esophagitis that was biopsied, Og-en-Y gastrojejunostomy with gastrojejunal anastomosis characterized by congestion, edema, erosion, erythema and hemorrhagic appearance with ulceration and moderate stenosis. There was biopsied and treated with heater probe and dilated. Patient generally did well. She was found to be iron deficient and was discharged on oral iron. She was continued on her multivitamins. b she was also discharged on PPI twice daily as well as misprostol 200 mcg 4 times daily for 4 weeks. She will follow-up with her primary care doctor as well as GI within 1 to 2 weeks. Physical Exam Narrative Physical exam: General: Alert, Oriented x3, Cooperative, No apparent distress, obese HEENT: Atraumatic Oral: Moist Mucosa Neck: Supple Lungs: Clear to auscultation Cardiovascular: HS I+II, regular, no murmurs Abdomen: Bowel Sounds Present, Soft, Non Tender Extremities: No edema Skin: No rashes, No breakdown Neurological: Grossly intact Psych/Mental Status: Appropriate Weight / BMI Weight Weight: 103.5 kg Body Mass Index (BMI) 36.8 ABG / Lab / Microbiology Data Result Diagrams: 07/19/21 07:05 07/19/21 07:05 Laboratory: Laboratory Results - last 24 hr 07/19/21 07:05: WBC 3.4 L, RBC 3.96 L, Hgb 7.9 L, Hct 27.9 L, MCV 70.5 L, MCH 19.9 L, MCHC 28.3 L, RDW Std Deviation 55.4 H, RDW Coeff of Andrez 22.5 H, Plt Count 437, MPV 10.2, Immature Gran % (Auto) 0.300, Neut % (Auto) 68.7, Lymph % (Auto) 16.1 L, [place] % (Auto) 10.4 H, Eos % (Auto) 3.6, Baso % (Auto) 0.9, Absolute Neuts (auto) 2.3, Absolute Lymphs (auto) 0.54 L, Nucleated RBC % 0, Differential Comment SCANNED, Hypochromasia 1+, Anisocytosis 2+, Microcytosis 1+, Macrocytosis 1+ 07/19/21 07:05: Sodium 139, Potassium 3.6, Chloride 107, Carbon Dioxide 26.0, Anion Gap 6, BUN 4 L, Creatinine 0.52 L, Estim Creat Clear Calc 141.36, Est GFR (MDRD) Af Amer 173, Est GFR (MDRD) Non-Af 143, BUN/Creatinine Ratio 7.7 L, Glucose 107 H, Calcium 8.4 L, Total Bilirubin 0.30, AST 52 H, ALT 100 H, Alkaline Phosphatase 184 H, Total Protein 6.4, Albumin 2.9 L, Globulin 3.5, Albumin/Globulin Ratio 0.8 L 07/19/21 07:05: Retic Count 1.59 H, Immature Retic Fraction 36.60 H, Retic Hgb Equivalent 21.3 L 07/19/21 07:05: Iron 12 L, TIBC 471 H, Iron Saturation 2.5 L, Ferritin 12 Microbiology: Microbiology 07/18/21 21:49 Stool Stool Occult Blood (SUNDEEP) - Final Occult Blood Positive D/C Instructions Discharge Diet: 2000 mg Sodium Diet Meaningful Use Info Meaningful Use Diagnoses (Choose all that apply): None applicable Discharge Plan Admission Admit Date/Time: 07/16/21 17:43 Primary Reason for Your Visit: Anemia, abdominal discomfort, black stools Attending Provider: Emperatriz Noel Primary Care Provider: Patricio Murguia Instructions Forms: Work / School Excuse Additional Instructions / Restrictions: Take note of your new medications. Continue to keep yourself hydrated. Follow-up with GI in the outpatient. Discharge Orders/Prescriptions Prescriptions: New ferrous sulfate [FeroSul] 325 mg (65 mg iron) Tablet 325 mg PO DAILYCM 30 Days Qty: 30 RF: 0 acidophilus-pectin, citrus 25 million cell -100 mg Tablet 1 tab PO BID 30 Days Qty: 60 RF: 0 misoprostol 200 mcg tablet 200 mcg PO .qid 30 Days Qty: 120 RF: 0 Continued tamsulosin 0.4 MG capsule 0.4 mg PO DAILY PRN PRN (Reason: kidney stones) RF: 0 ergocalciferol (vitamin D2) 50,000 UNIT capsule 50,000 unit PO TH RF: 0 lisinopril 40 MG tablet 40 mg PO BID RF: 0 cyanocobalamin (vitamin B-12) 1,000 MCG/ML solution 1,000 mcg IM Q30D RF: 0 ondansetron 4 MG tablet 4 mg PO 4X/DAY PRN PRN (Reason: Nausea) Qty: 30 RF: 1 amitriptyline 50 MG tablet 50 mg PO QHS PRN PRN (Reason: Sleep) RF: 0 sucralfate 1 GM tablet 1 gm PO 4X/DAY RF: 0 amlodipine 10 mg tablet 10 mg PO DAILY RF: 0 Changed pantoprazole 40 MG tablet 40 mg PO BID 30 Days Qty: 0 RF: 0 Referrals / Follow Up: Heath Roberson DO [STAFF PHYSICIAN] - Within 2 Weeks Patricio Murguia MD [Primary Care Provider] - In 1 Week Disposition Disposition (needs filled in before D/C Order can be placed): Home, Self Care Charges/Coding Visit Charges Inpatient E&M: 62839 Disch Hosp
[2021-07-19] MEDS: Pantoprazole Sodium 40 MG Tablet PO (10:15)
[2021-07-20 20:54] LABS: Pathologist Review Reviewed
[2021-07-20 21:12] LABS: Pathologist Review Reviewed
[2021-07-23 12:46] LABS: Pathologist Review Reviewed
== END 2021-07-19 10:20 | disposition home or self-care (01) | DRG 241 ==
LOC: ED 17:40 → MS3 07-17 06:34
PROVIDERS: Anesthesiology; Internal Medicine Gastroenterology; Admitting Provider Family Medicine; Emergency Provider Emergency Medicine; PCP Family Medicine; Visit Provider Internal Medicine
PROC: 0DJD8ZZ Inspection of Lower Intestinal Tract, Via Natural or Artificial Opening Endoscopic (ICD-10-PCS; CPT 45378; principal; 2021-07-17 16:40)
DX: K25.4 Chronic or unspecified gastric ulcer with hemorrhage (principal); D63.8 Anemia in other chronic diseases classified elsewhere; K20.81 Other esophagitis with bleeding; D62 Acute posthemorrhagic anemia; D50.0 Iron deficiency anemia secondary to blood loss (chronic); E87.6 Hypokalemia; I10 Essential (primary) hypertension; D50.9 Iron deficiency anemia, unspecified; E66.9 Obesity, unspecified; K21.00 Gastro-esophageal reflux disease with esophagitis, without bleeding; Z80.0 Family history of malignant neoplasm of digestive organs; Z68.36 Body mass index [BMI] 36.0-36.9, adult
CPT/HCPCS: 36415; 80048; 80053; 81025; 82274; 82728; 83540; 83550; 83735; 85014; 85018; 85025; 85027; 85045; 86850; 86900; 86901; 86920; 86922; 88305; 99284; J7030; J7120; P9016; A4216

== ENCOUNTER 2021-07-25 11:32 | Emergency (ER) | payer MEDICAID, SELFPAY ==
[2021-07-25 11:33] VITALS: BP 187/109; PULSE 107; RESP 18; TEMP 36.5; O2SAT 98; BMI 74.7
--- NOTE | 2021-07-25 12:20 | ED.VIS.GI ---
HPI HPI - GI History of Present Illness Chief Complaint: Abd Pain Abdominal Pain/Flank Pain Timing: Continuous Quality: Aching Location: Epigastric Current Severity: Mild Maximum Severity: Mild Worsened by: Food Relieved by: Nothing Nausea/Vomiting/Emesis GI Symptom: Positive for Nausea and Vomiting Onset: Weeks (1) Quality: Positive for Blood streaks Diarrhea/Melena/Hematochezia GI Symptom: Positive for Hematochezia; Negative for Diarrhea and Melena Severity: Mild Associated Symptoms Associated Symptoms: Negative for Dysuria, Frequency and Hematuria Narrative Narrative: Patient persistent epigastric pain, nausea, vomiting, with mild hematemesis and small amounts of maroon stool in dark stools for the past week since she has been discharged from the hospital, she was admitted for similar symptoms and diagnosed with bleeding ulcers. Since then she has been on Protonix, she takes Carafate as needed, and she takes a probiotic 4 times a day. Symptoms have been persistent and she was concerned. She has not yet followed up with GI as an outpatient. She denies any syncope or near syncope. No trouble breathing or chest discomfort. [facility] Medical History Back problem Bladder infection Excessive weight loss Gallstones High blood pressure Intertrigo Kidney stones Soft tissue mass Stomach ulcer Ulcer Vitamin deficiency Home Medications ergocalciferol (vitamin D2) 50,000 unit PO TH 04/30/17 [History Last Taken 07/10/21] tamsulosin 0.4 mg PO DAILY PRN PRN 04/30/17 [History Last Taken 3 Weeks Ago ~06/25/21] lisinopril 40 mg PO BID 05/30/17 [History Last Taken 07/16/21] cyanocobalamin (vitamin B-12) 1,000 mcg IM Q30D 07/06/17 [History Last Taken 07/15/21] ondansetron 4 mg PO 4X/DAY PRN PRN #30 tab 03/16/19 [Rx Last Taken Unknown] amitriptyline 50 mg PO QHS PRN PRN 11/29/19 [History Last Taken 07/09/21] amlodipine 10 mg PO DAILY 07/16/21 [History Last Taken 07/16/21] acidophilus-pectin, citrus 1 tab PO BID 30 Days #60 tab 07/19/21 [Rx Last Taken Unknown] ferrous sulfate [FeroSul] 325 mg PO DAILYCM 30 Days #30 tab 07/19/21 [Rx Last Taken Unknown] misoprostol 200 mcg PO .qid 30 Days #120 tab 07/19/21 [Rx Last Taken Unknown] pantoprazole 40 mg PO BID 30 Days #0 tab 07/19/21 [Rx Last Taken 07/16/21] sucralfate [Carafate] 10 ml PO 4X/DAY #414 ml 07/25/21 [Rx Last Taken Unknown] Allergy/AdvReac Type Severity Reaction Status Date / Time methocarbamol Allergy Chest Verified 07/25/21 11:35 tightness gabapentin AdvReac abnormal Verified 07/25/21 11:35 gait ketorolac tromethamine AdvReac Upset Verified 07/25/21 11:35 [From Toradol] Stomach NSAIDS (Non-Steroidal AdvReac gastric Verified 07/25/21 11:35 Anti-Inflamma bipass not supposed to take tramadol AdvReac Upset Verified 07/25/21 11:35 Stomach Family History Mother Anxiety Bleeding disorder Depression Hypertension High cholesterol Cancer Father Diabetes Hypertension Grandfather Colon cancer Diabetes Heart disease Surgical History History of cholecystectomy History of gastric bypass History of incision and drainage History of incision and drainage History of nephrolithotomy with removal of calculi History of thyroidectomy Status post panniculectomy (~09/17/16) Social History Smoking Status: Never smoker second hand exposure: Yes alcohol intake: current substance use type: does not use what type of physical activity do you participate in: other seatbelt use: always do you feel safe at home: Yes additional social history: SUN EXPOSURE: OCCASIONALLY ROS ROS ED Constitutional Constitutional ED: Denies chills or fever(s) Eyes Eyes: Denies change in vision or diplopia ENT ENT ED: Denies rhinorrhea or sore throat Cardiovascular Cardiovascular: Denies chest pain or palpitations Respiratory/Chest Respiratory/Chest: Denies cough or dyspnea Gastrointestinal Gastrointestinal: Reports as per HPI, abdominal pain, hematochezia, nausea and vomiting; Denies diarrhea Genitourinary Genitourinary ED: Denies dysuria or hematuria Musculoskeletal Musculoskeletal: Denies back pain or neck pain Integumentary Denies abscess or rash Neurologic Neurologic: Denies headache(s), paresthesias or weakness Psychiatric Psychiatric: Denies anxiety or suicidal thoughts EXAM Physical Exam Const Vital Signs: 07/25/21 11:33 07/25/21 12:42 07/25/21 13:08 Temperature 97.7 F L 97.7 F L 97 F L Temperature Source Temporal Temporal Oral Pulse Rate 107 H 88 67 Respiratory Rate 18 16 15 Blood Pressure 187/109 H 138/79 H 129/87 H Blood Pressure Mean 135 98 101 Pulse Ox 98 95 98 Oxygen Delivery Method Room Air Room Air Room Air 07/25/21 15:08 Temperature 98.3 F Temperature Source Oral Pulse Rate 104 H Respiratory Rate 17 Blood Pressure 182/102 H Blood Pressure Mean 128 Pulse Ox 97 Oxygen Delivery Method Room Air Positive well nourished, well developed and obese Constitutional Narrative: Well-appearing, conversive in full sentences General Appearance ED: well developed and NAD Nutritional Appearance: obese HEENT Reports moist mucous membranes normocephalic and atraumatic Eyes PERRL and EOMs intact bilaterally Neck full ROM and supple Resp normal respiratory effort and clear to auscultation bilaterally Cardio regular rate, regular rhythm and no murmurs GI non-tender and non-distended Auscultation: normoactive bowel sounds Palpation: soft Back/Spine no CVA tenderness General Back: other FROM Extremity normal to inspection General Extremety ED: Negative for edema, pulses abnormal or tenderness General Extremity: Negative for edema or pulses abnormal Neuro oriented x3, CN's II-XII intact bilaterally and no sensory deficits noted Sensorium / Orientation: awake and alert Motor Exam: strength 5/5 throughout Skin no rashes or lesions noted and no wounds MDM MDM MDM Narrative Medical decision making narrative: Patient was given a GI cocktail, she did not have major change in her symptoms from this. She remained clinically and hemodynamically stable with a very mild resting tachycardia. Her blood counts are reassuring, her hemoglobin is higher than it was a week ago, and she does not have an elevated BUN to suggest a hemodynamically significant GI bleed. I discussed her symptoms with GI Dr. Friend, he recommended changing her Carafate tablets to liquid, ensuring she is on misoprolol which she is, ensuring she is on twice daily PPI which she is, and changing her diet to full liquid only at least through the weekend to allow these ulcers to heal, and follow-up next week as able. She has an appointment for August 22. She is also wanting to the for pain I will prescribe her a short course of [place] she wants them to sleep so half-1 tablet as needed. She is comfortable with this plan. Lab Data Attestation: I reviewed the patient's lab results. Labs: Laboratory Results - last 24 hr 07/25/21 07/25/21 12:05 12:05 WBC 8.1 RBC 4.45 Hgb 8.9 L Hct 30.9 L MCV 69.4 L MCH 20.0 L MCHC 28.8 L RDW Std Deviation 55.8 H RDW Coeff of Andrez 23.1 H Plt Count 297 MPV 11.1 Immature Gran % (Auto) 0.400 Neut % (Auto) 80.0 H Lymph % (Auto) 8.2 L [place] % (Auto) 10.4 H Eos % (Auto) 0.4 Baso % (Auto) 0.6 Absolute Neuts (auto) 6.5 Absolute Lymphs (auto) 0.66 L Nucleated RBC % 0 Anisocytosis 2+ Sodium 136 Potassium 3.4 L Chloride 101 Carbon Dioxide 24.0 Anion Gap 11 BUN 13 Creatinine 0.85 Estim Creat Clear Calc 86.48 Est GFR (MDRD) Af Amer 97 Est GFR (MDRD) Non-Af 80 BUN/Creatinine Ratio 15.2 Glucose 99 Calcium 8.9 Lipase 58 L Radiography Diagnostic Testing: Clinical Impression(s) from Imaging Studies Chest X-Ray 07/25/21 12:50 IMPRESSION: Normal x-ray examination of the chest. Electronically Signed: Demetrius Brandon MD at 13:10 EDT , Discharge Plan Triage Chief Complaint: Abd Pain ED Provider: oSto Mak Dx/Rx/DC Orders Clinical Impression: Epigastric pain, Bleeding stomach ulcer Instructions: ED Upper GI Bleeding (Stable), ED Full Liquid Diet Prescriptions: New sucralfate [Carafate] 100 mg/mL suspension 10 ml PO 4X/DAY Qty: 414 RF: 0 Continued tamsulosin 0.4 MG capsule 0.4 mg PO DAILY PRN PRN (Reason: kidney stones) RF: 0 ergocalciferol (vitamin D2) 50,000 UNIT capsule 50,000 unit PO TH RF: 0 lisinopril 40 MG tablet 40 mg PO BID RF: 0 cyanocobalamin (vitamin B-12) 1,000 MCG/ML solution 1,000 mcg IM Q30D RF: 0 ondansetron 4 MG tablet 4 mg PO 4X/DAY PRN PRN (Reason: Nausea) Qty: 30 RF: 1 amitriptyline 50 MG tablet 50 mg PO QHS PRN PRN (Reason: Sleep) RF: 0 amlodipine 10 mg tablet 10 mg PO DAILY RF: 0 ferrous sulfate [FeroSul] 325 mg (65 mg iron) Tablet 325 mg PO DAILYCM 30 Days Qty: 30 RF: 0 acidophilus-pectin, citrus 25 million cell -100 mg Tablet 1 tab PO BID 30 Days Qty: 60 RF: 0 misoprostol 200 mcg tablet 200 mcg PO .qid 30 Days Qty: 120 RF: 0 pantoprazole 40 MG tablet 40 mg PO BID 30 Days Qty: 0 RF: 0 Discontinued sucralfate 1 GM tablet 1 gm PO 4X/DAY RF: 0 Stand Alone Forms: ED Work / School Excuse Primary Care Provider: Patricio Murguia Referrals: Friend,DO Heath [STAFF PHYSICIAN] - (next week) Patricio Murguia MD [Primary Care Provider] - Disposition Disposition: Home, Self Care
[2021-07-25 12:42] VITALS: BP 138/79; PULSE 88; RESP 16; TEMP 36.5; O2SAT 95
[2021-07-25] MEDS: Ondansetron 4 MG/2 ML Vial IV (12:47)
[2021-07-25] MEDS: 0.9% Normal Saline 1,000 ML 999 ML IV (12:48)
[2021-07-25] MEDS: Mag Hydrox/Al Hydrox/Simeth 30 ML UDC PO (12:49)
--- NOTE | 2021-07-25 12:50 | RAD_ITS ---
STUDY: X-RAY CHEST REASON FOR EXAM: Female, 36 years old. Hematemesis TECHNIQUE: Single AP portable view of the chest. COMPARISON: Comparison is made with prior study dated 04/12/2019. FINDINGS: The lungs are clear and expanded. There is no demonstrated pleural abnormality. Normal size heart. Normal mediastinum and kuldeep. Normal visualized pulmonary arteries. Normal visualized aortic arch and descending thoracic aorta. Normal visualized thoracic spine. Normal visualized ribs, clavicles, and shoulders. There is no demonstrated abnormality of the visualized soft tissue structures of the upper abdomen. RAD/Chest 1 View (Portable) IMPRESSION: Normal x-ray examination of the chest. Electronically Signed: Demetrius Brandon MD at 13:10 EDT ,
[2021-07-25 12:55] LABS: Absolute Lymphocyte Count 0.66 X10^3/uL (0.83-4.51); Absolute Neutrophil Count 6.5 X10^3/uL (2.0-7.7); Basophil# 0.05 X10^3/uL; Basophil% 0.6 % (0-1); Eosinophil# 0.03 X10^3/uL; Eosinophils% 0.4 % (0-5); Hematocrit 30.9 % (37-47); Hemoglobin 8.9 g/dL (12.0-15.0); Lymphocyte # 0.66 X10^3/ul (0.83-4.51); Lymphocyte % 8.2 % (19-41); Mean Corp Hgb Conc 28.8 g/dL (32-36); Mean Corpuscular Volume 69.4 fL (81-99); Mean Platelet Vol. 11.1 fl (6.2-12.0); Monocyte# 0.84 X10^3/uL; Monocyte% 10.4 % (0-10); NRBC Flagged by Analyzer 0 % (0-5); Neutrophil # 6.48 X10^3/uL (2.7-7.7); POSITIVE MORPHOLOGY YES; Platelet Count 297 K/mm3 (150-450); RBC Distribution Width CV 23.1 % (11.6-14.6); RBC Distribution Width SD 55.8 fl (35.1-43.9); Red Blood Count 4.45 M/mm3 (4.2-5.4); White Blood Count 8.1 K/mm3 (4.4-11.0)
[2021-07-25 12:59] LABS: Differential Indicated SCAN CRITERIA MET
[2021-07-25 13:06] LABS: Anion Gap 11 (5-15); BUN 13 mg/dL (7-18); BUN/Creat Ratio 15.2 RATIO (10-20); Calcium,Total 8.9 mg/dL (8.5-10.1); Chloride 101 mmol/L (98-107); Creatinine, Serum 0.85 mg/dL (0.55-1.02); EST Glomerular Filtration Rate 80 mL/min (>60); Est Glom Filt Rate - Afr Amer 97 mL/min (>60); Estimated Creatinine Clearance 86.48 ml/min; Glucose 99 mg/dL (74-106); Lipase 58 U/L (73-393); Potassium 3.4 mmol/L (3.5-5.1); Sodium Level 136 mmol/L (136-145)
[2021-07-25 13:08] VITALS: BP 129/87; PULSE 67; RESP 15; TEMP 36.1; O2SAT 98
[2021-07-25] MEDS: Sucralfate 1 GM Tablet PO (13:08)
[2021-07-25 13:31] LABS: Anisocytosis 2+
[2021-07-25 15:08] VITALS: BP 182/102; PULSE 104; RESP 17; TEMP 36.8; O2SAT 97
[2021-07-25 16:24] VITALS: BP 185/85; PULSE 102; PULSE 103; RESP 17; TEMP 36.6
== END 2021-07-25 16:25 | disposition home or self-care (01) ==
PROVIDERS: Emergency Provider Emergency Medicine; PCP Family Medicine; Visit Provider Emergency Medicine
DX: R10.13 Epigastric pain (principal); K25.4 Chronic or unspecified gastric ulcer with hemorrhage; Z80.0 Family history of malignant neoplasm of digestive organs; Z87.442 Personal history of urinary calculi
CPT/HCPCS: 71045; 80048; 83690; 85025; 96361; 96374; 99282; J7030; A4216; J2405

== ENCOUNTER → 2021-08-07 | Outpatient (CLI) | payer MEDICAID, SELFPAY ==
[2021-08-07 10:01] VITALS: BP 162/84; PULSE 96; RESP 14; TEMP 37.1; O2SAT 100; BMI 32.3
== END | disposition home or self-care (01) ==
PROVIDERS: PCP Family Medicine; Referring Provider Internal Medicine Hematology & Oncology; Visit Provider Internal Medicine Hematology & Oncology
DX: Z45.2 Encounter for adjustment and management of vascular access device (principal); D50.9 Iron deficiency anemia, unspecified
CPT/HCPCS: 36569

== ENCOUNTER → 2021-08-09 | Outpatient (CLI) | payer MEDICAID, SELFPAY ==
[2021-08-09 09:46] LABS: Absolute Lymphocyte Count 0.34 X10^3/uL (0.83-4.51); Absolute Neutrophil Count 4.7 X10^3/uL (2.0-7.7); Basophil# 0.06 X10^3/uL; Basophil% 1.1 % (0-1); Eosinophils% 1.8 % (0-5); Hematocrit 31.1 % (37-47); Lymphocyte # 0.34 X10^3/ul (0.83-4.51); Lymphocyte % 6.1 % (19-41); Mean Corp Hgb Conc 28.9 g/dL (32-36); Mean Corpuscular Volume 72.5 fL (81-99); Mean Platelet Vol. 9.9 fl (6.2-12.0); Monocyte# 0.37 X10^3/uL; Monocyte% 6.7 % (0-10); NRBC Flagged by Analyzer 0 % (0-5); Neutrophil # 4.65 X10^3/uL (2.7-7.7); Neutrophil % 83.8 % (47-70); POSITIVE DIFFERENTIAL YES; POSITIVE MORPHOLOGY YES; Platelet Count 448 K/mm3 (150-450); RBC Distribution Width CV 23.1 % (11.6-14.6); RBC Distribution Width SD 59.2 fl (35.1-43.9); Red Blood Count 4.29 M/mm3 (4.2-5.4); White Blood Count 5.6 K/mm3 (4.4-11.0)
[2021-08-09 10:02] LABS: Differential Indicated SCAN CRITERIA MET; Erythrocyte Sedimentation Rate 17 mm/hr (0-30)
[2021-08-09 10:07] LABS: ALB/GLOB Ratio 0.8 RATIO (0.9-2.4); AST(SGOT) 522 U/L (15-37); Alanine Aminotransfer ALT/SGPT 163 U/L (13-56); Alkaline Phosphatase 136 U/L (45-117); Anion Gap 6 (5-15); BUN 7 mg/dL (7-18); BUN/Creat Ratio 10.2 RATIO (10-20); Calcium,Total 8.5 mg/dL (8.5-10.1); Chloride 106 mmol/L (98-107); Creatinine, Serum 0.69 mg/dL (0.55-1.02); EST Glomerular Filtration Rate 103 mL/min (>60); Est Glom Filt Rate - Afr Amer 125 mL/min (>60); Ferritin 578 ng/mL (8-252); Globulin 3.8 g/dL (2.2-4.2); Glucose 108 mg/dL (74-106); International Normalized Ratio 1.1; LDH 550 U/L (84-246); Potassium 3.2 mmol/L (3.5-5.1); Protein, Total 6.8 g/dL (6.4-8.2); Prothrombin Time (Protime)PT. 14.1 SECONDS (11.7-14.9); Sodium Level 137 mmol/L (136-145)
[2021-08-09 10:39] LABS: Hemoglobin A1c < 3.8 % (3.8-5.6)
[2021-08-09 10:40] LABS: Differential Comment SCANNED
[2021-08-09 10:41] LABS: Anisocytosis 2+; Microcytosis 2+
[2021-08-11 10:41] LABS: HIV - WCH Non-Reactive (Nonreactive)
[2021-08-12 14:10] LABS: Angiotensin Convert Enzyme 38 U/L (14-82); Ceruloplasmin 32.5 mg/dL (19.0-39.0); Cytoplasmic Ab (C-ANCA) <1:20 titer (Neg:<1:20); HEPATITIS B SURFACE AG Negative (Negative); Hep C Antibodies <0.1 s/co ratio (0.0-0.9); Hepatitis A IgM Antibody Negative (Negative); Hepatitis B Core AB IgM Negative (Negative)
[2021-08-12 14:53] LABS: AFP, Tumor Marker 1.9 ng/mL (0.0-6.4); Anti-Smooth Muscle ABS 6 Units (0-19); Copper, Serum or Plasma 129 ug/dL (80-158); Haptoglobin 222 mg/dL (33-278); Perinuclear Ab (P-ANCA) <1:20 titer (Neg:<1:20)
[2021-08-22 13:08] LABS: Anti-Centromere B Ab <0.2 AI (0.0-0.9); Anti-Chromatin <0.2 AI (0.0-0.9); Anti-Jo <0.2 AI (0.0-0.9); Anti-Scleroderma-70 AB <0.2 AI (0.0-0.9); RNP Ab <0.2 AI (0.0-0.9); SJOGREN'S Anti-SS-A test < 0.2 AI (0.0-0.9); SJOGREN'S Anti-SS-B test < 0.2 AI (0.0-0.9); Smith Ab <0.2 AI (0.0-0.9)
[2021-08-22 16:42] LABS: Anti-Mitochondrial AB <20.0 Units (0.0-20.0); Anti-dsDNA Ab <1 IU/mL (0-9)
== END | disposition home or self-care (01) ==
LOC: LAB 08:48
PROVIDERS: PCP Family Medicine; Referring Provider Internal Medicine Gastroenterology; Visit Provider Internal Medicine Gastroenterology
DX: K76.0 Fatty (change of) liver, not elsewhere classified (principal); Z98.84 Bariatric surgery status
CPT/HCPCS: 36415; 80053; 80074; 82105; 82140; 82164; 82390; 82525; 82728; 83010; 83036; 83516; 83615; 85025; 85610; 85652; 86140; 86225; 86235; 86256; 86703

== ENCOUNTER 2021-10-29 08:36 | Emergency (ER) | payer MEDICAID, SELFPAY ==
[2021-10-29 08:37] VITALS: BP 191/116; PULSE 124; RESP 18; TEMP 36.9; O2SAT 98; BMI 33.9
--- NOTE | 2021-10-29 09:20 | ED.VIS.GI ---
HPI HPI - GI History of Present Illness Chief Complaint: GI Bleed Informant: patient Abdominal Pain/Flank Pain Onset: Weeks (2-3) Context: Gradual Onset Timing: Continuous Quality: Aching Location: Epigastric Current Severity: Mild Maximum Severity: Severe Worsened by: - (vomiting) Relieved by: Nothing Nausea/Vomiting/Emesis GI Symptom: Positive for Nausea and Vomiting Onset: Yesterday Quality: Positive for Blood streaks (once) Diarrhea/Melena/Hematochezia GI Symptom: Positive for Melena; Negative for Diarrhea or Hematochezia Onset: Yesterday Associated Symptoms Associated Symptoms: Negative for Dysuria, Frequency, Hematuria or Urgency Narrative Narrative: 36-year-old female who was seen at [facility] several weeks ago where she was diagnosed with acute pancreatitis then transferred to [facility], where she was an inpatient. Discharged about 2 weeks ago, she had already had a cholecystectomy and she was told that the etiology of her pancreatitis was unknown and she should follow-up with her lorry weigher who is Dr. Roberson. She followed up with them this morning in the office and was transferred here to the ED for further evaluation and work-up because she has been having the pancreatitis pain ever since she was discharged, has a history of an anastomotic ulcer in what is left of her stomach, and symptoms of upper GI bleeding that started yesterday with the patient complaining of melena and vomiting with 1 episode of emesis that was streaked with blood. She states she has felt lightheaded this morning but has had no syncopal or presyncopal episodes. She has drank no alcohol before her episode of pancreatitis nor since. [facility] Medical History Back problem Bladder infection Excessive weight loss Gallstones High blood pressure Intertrigo Kidney stones Soft tissue mass Stomach ulcer Ulcer Vitamin deficiency Home Medications ergocalciferol (vitamin D2) 1,250 mcg (50,000 unit) capsule 50,000 unit PO TH SUPPLEMENT 04/30/17 [History Last Taken 07/10/21] tamsulosin 0.4 mg capsule 0.4 mg PO DAILY PRN PRN kidney stones 04/30/17 [History Last Taken 3 Weeks Ago ~06/25/21] lisinopril 40 mg tablet 40 mg PO BID BP 05/30/17 [History Last Taken 07/16/21] cyanocobalamin (vitamin B-12) 1,000 mcg/mL injection solution 1,000 mcg IM Q30D VITAMIN 07/06/17 [History Last Taken 07/15/21] ondansetron 4 mg disintegrating tablet 4 mg PO 4X/DAY PRN PRN Nausea #30 tabs 03/16/19 [Rx Last Taken Unknown] amitriptyline 50 mg tablet 50 mg PO QHS PRN PRN Sleep 11/29/19 [History Last Taken 07/09/21] amlodipine 10 mg tablet 10 mg PO DAILY bp 07/16/21 [History Last Taken 07/16/21] acidophilus 25 million cell-pectin, citrus 100 mg tablet 1 tab PO BID 30 days #60 tabs 07/19/21 [Rx Last Taken Unknown] ferrous sulfate 325 mg (65 mg iron) tablet (FeroSul) 325 mg PO DAILYCM 30 days #30 tabs 07/19/21 [Rx Last Taken Unknown] misoprostol 200 mcg tablet 200 mcg PO .qid 30 days #120 tabs 07/19/21 [Rx Last Taken Unknown] pantoprazole 40 mg tablet,delayed release 40 mg PO BID 30 days #0 tabs 07/19/21 [Rx Last Taken 07/16/21] hydrocodone-acetaminophen 5-325mg 5mg-325mg 0.5 - 1 tab PO Q6H PRN pain 2 days #8 TABLETS 07/25/21 [Rx Last Taken Unknown] sucralfate 100 mg/mL oral suspension (Carafate) 10 ml PO 4X/DAY #414 mL 07/25/21 [Rx Last Taken Unknown] lidocaine HCl 2 % mucosal solution (Lidocaine Viscous) 1 applic mucous membrane TID PRN pain #100 mL 08/08/21 [Rx Last Taken Unknown] sucralfate 100 mg/mL oral suspension 10 ml PO TID #1,000 mL 08/08/21 [Rx Last Taken Unknown] metoclopramide HCl 10 mg tablet 10 mg PO Q6H PRN Nausea And Vomiting #20 tabs 10/29/21 [Rx Last Taken Unknown] ondansetron 4 mg disintegrating tablet 8 mg PO Q8H PRN PRN Nausea #20 tabs 10/29/21 [Rx Last Taken Unknown] Allergy/AdvReac Type Severity Reaction Status Date / Time methocarbamol Allergy Chest Verified 10/29/21 08:40 tightness gabapentin AdvReac abnormal Verified 10/29/21 08:40 gait ketorolac tromethamine AdvReac Upset Verified 10/29/21 08:40 [From Toradol] Stomach NSAIDS (Non-Steroidal AdvReac gastric Verified 10/29/21 08:40 Anti-Inflamma bipass not supposed to take tramadol AdvReac Upset Verified 10/29/21 08:40 Stomach Family History Mother Anxiety Bleeding disorder Depression Hypertension High cholesterol Cancer Father Diabetes Hypertension Grandfather Colon cancer Diabetes Heart disease Surgical History (Updated 08/08/21 @ 09:36 by Arpita Tolbert) History of cholecystectomy History of gastric bypass History of incision and drainage History of incision and drainage History of nephrolithotomy with removal of calculi History of thyroidectomy Status post panniculectomy (~09/17/16) Social History Smoking Status: Never smoker second hand exposure: Yes alcohol intake: current substance use type: does not use what type of physical activity do you participate in: other seatbelt use: always do you feel safe at home: Yes additional social history: SUN EXPOSURE: OCCASIONALLY ROS ROS ED Constitutional Constitutional ED: Reports malaise; Denies chills or fever(s) Eyes Eyes: Denies change in vision or diplopia ENT ENT ED: Denies rhinorrhea or sore throat Cardiovascular Cardiovascular: Reports lightheadedness; Denies chest pain or palpitations Respiratory/Chest Respiratory/Chest: Denies cough or dyspnea Gastrointestinal Gastrointestinal: Reports abdominal pain, hematemesis, melena, nausea and vomiting; Denies hematochezia Genitourinary Genitourinary ED: Denies dysuria or hematuria Musculoskeletal Musculoskeletal: Denies back pain or neck pain Integumentary Denies abscess or rash Neurologic Neurologic: Denies headache(s), paresthesias or weakness Psychiatric Psychiatric: Denies anxiety or suicidal thoughts EXAM Physical Exam Const Vital Signs: 10/29/21 08:37 10/29/21 09:35 Temperature 98.5 F Temperature Source Temporal Pulse Rate 124 H Respiratory Rate 18 Blood Pressure 191/116 H 165/103 H Blood Pressure Mean 141 123 Pulse Ox 98 Oxygen Delivery Method Room Air Positive well nourished, well developed and obese General Appearance ED: well developed and NAD Nutritional Appearance: obese HEENT Reports moist mucous membranes normocephalic and atraumatic Eyes PERRL and EOMs intact bilaterally Neck full ROM and supple Resp normal respiratory effort and clear to auscultation bilaterally Cardio regular rate, regular rhythm and no murmurs Rate: tachycardic GI non-tender and non-distended Auscultation: hyperactive bowel sounds Palpation: soft Back/Spine no CVA tenderness General Back: other FROM Extremity normal to inspection General Extremety ED: Negative for edema, pulses abnormal or tenderness General Extremity: Negative for edema or pulses abnormal Neuro oriented x3, CN's II-XII intact bilaterally and no sensory deficits noted Sensorium / Orientation: awake and alert Motor Exam: strength 5/5 throughout Skin no rashes or lesions noted and no wounds MDM MDM MDM Narrative Medical decision making narrative: Patient's dark stool is Hemoccult positive, she is not anemic with a hemoglobin at 13. Liver enzymes slightly elevated, as they have been trending down. No significant elevation of BUN to suggest a hemodynamically significant upper GI bleed. She is already taking pantoprazole at home, gave her a dose of 80 mg IV in addition to Zofran, she has a care plan here preventing me from treating her with narcotics for nonacute pain, she does not have an elevated lipase to suggest acute pancreatitis. She has GI bleeding and gastric bypass, limiting my ability to give NSAIDs, and her liver enzymes are elevated, limiting my ability to give her acetaminophen. I discussed this with her. I did discuss with Dr. Roberson, going through her recent admission paperwork, they were unable to find an MRCP and requested that we try to get 1 while she was here in the ER however, the MR machine is booked throughout the entire day and they are not able to do 1 today. We will give the patient prescription for Zofran and Reglan, make sure she is on full dosing of pantoprazole, sucralfate liquid, and misoprostol, and have her follow-up. She has been taking these but unable to keep them down the last couple days. We will follow-up for outpatient endoscopy and MRCP. Lab Data Attestation: I reviewed the patient's lab results. Labs: Laboratory Results - last 24 hr 10/29/21 10/29/21 10/29/21 09:20 09:20 09:20 WBC 4.8 RBC 3.64 L Hgb 13.0 Hct 37.1 MCV 101.9 H MCH 35.7 H MCHC 35.0 RDW Std Deviation 71.7 H RDW Coeff of Andrez 18.9 H Plt Count 268 MPV 9.8 Immature Gran % (Auto) 0.400 Neut % (Auto) 78.8 H Lymph % (Auto) 9.8 L [place] % (Auto) 9.8 Eos % (Auto) 0.4 Baso % (Auto) 0.8 Absolute Neuts (auto) 3.8 Absolute Lymphs (auto) 0.47 L Nucleated RBC % 0 Differential Comment Platelet Estimate ADEQUATE RBC Morphology N CHROM Anisocytosis 2+ Sodium 141 Potassium 3.2 L Chloride 103 Carbon Dioxide 26.0 Anion Gap 12 BUN 12 Creatinine 0.60 Estim Creat Clear Calc 122.51 Est GFR (MDRD) Af Amer 146 Est GFR (MDRD) Non-Af 121 BUN/Creatinine Ratio 20.0 Glucose 104 Calcium 8.7 Total Bilirubin 0.70 AST 79 H ALT 128 H Alkaline Phosphatase 177 H Total Protein 6.7 Albumin 3.1 L Globulin 3.6 Albumin/Globulin Ratio 0.9 Lipase 177 Blood Type A NEGATIVE Antibody Screen NEGATIVE Discharge Plan Triage Chief Complaint: GI Bleed Other Complaint: Nausea/Vomiting/Diarrhea ED Provider: Soto Mak Dx/Rx/DC Orders Clinical Impression: Epigastric abdominal pain, Anastomotic ulcer, Acute upper gastrointestinal bleeding, Vomiting Instructions: ED Upper GI Bleeding (Stable) Prescriptions: New ondansetron [ondansetron] 4 MG tablet 8 mg PO Q8H PRN PRN (Reason: Nausea) Qty: 20 0RF metoclopramide HCl [metoclopramide HCl] 10 MG tablet 10 mg PO Q6H PRN (Reason: Nausea And Vomiting) Qty: 20 0RF No Action lidocaine HCl [Lidocaine Viscous] 2 % solution 1 applic mucous membrane TID PRN (Reason: pain) Qty: 100 0RF Rx Instructions: Have the patient mix 50% viscous lidocaine with 50% of sucralfate to hopefully promote healing sucralfate 100 mg/mL suspension 10 ml PO TID Qty: 1000 0RF tamsulosin 0.4 MG capsule 0.4 mg PO DAILY PRN PRN (Reason: kidney stones) ergocalciferol (vitamin D2) 50,000 UNIT capsule 50,000 unit PO TH lisinopril 40 MG tablet 40 mg PO BID cyanocobalamin (vitamin B-12) 1,000 MCG/ML solution 1,000 mcg IM Q30D ondansetron 4 MG tablet 4 mg PO 4X/DAY PRN PRN (Reason: Nausea) Qty: 30 1RF amitriptyline 50 MG tablet 50 mg PO QHS PRN PRN (Reason: Sleep) amlodipine 10 mg tablet 10 mg PO DAILY ferrous sulfate [FeroSul] 325 mg (65 mg iron) Tablet 325 mg PO DAILYCM 30 Days Qty: 30 0RF acidophilus-pectin, citrus 25 million cell -100 mg Tablet 1 tab PO BID 30 Days Qty: 60 0RF misoprostol 200 mcg tablet 200 mcg PO .qid 30 Days Qty: 120 0RF pantoprazole 40 MG tablet 40 mg PO BID 30 Days Qty: 0 0RF sucralfate [Carafate] 100 mg/mL suspension 10 ml PO 4X/DAY Qty: 414 0RF hydrocodone-acetaminophen [hydrocodone-acetaminophen] 1 TABLET tablet 0.5 - 1 tab PO Q6H PRN (Reason: pain) 2 Days Qty: 8 0RF Primary Care Provider: Patricio Murguia Referrals: Friend,DO Heath [Med Staff - Active Staff] - 2 Days (call for office appt date/time) Patricio Murguia MD [Primary Care Provider] - Disposition Disposition: Home, Self Care
[2021-10-29 09:35] VITALS: BP 165/103
[2021-10-29 09:36] LABS: Absolute Lymphocyte Count 0.47 X10^3/uL (0.83-4.51); Absolute Neutrophil Count 3.8 X10^3/uL (2.0-7.7); Basophil# 0.04 X10^3/uL; Basophil% 0.8 % (0-1); Eosinophil# 0.02 X10^3/uL; Eosinophils% 0.4 % (0-5); Hematocrit 37.1 % (37-47); Lymphocyte # 0.47 X10^3/ul (0.83-4.51); Lymphocyte % 9.8 % (19-41); Mean Corpuscular Hgb 35.7 pg (27.0-32.0); Mean Corpuscular Volume 101.9 fL (81-99); Mean Platelet Vol. 9.8 fl (6.2-12.0); Monocyte# 0.47 X10^3/uL; Monocyte% 9.8 % (0-10); NRBC Flagged by Analyzer 0 % (0-5); Neutrophil # 3.76 X10^3/uL (2.7-7.7); Neutrophil % 78.8 % (47-70); POSITIVE DIFFERENTIAL YES; POSITIVE MORPHOLOGY YES; Platelet Count 268 K/mm3 (150-450); RBC Distribution Width CV 18.9 % (11.6-14.6); RBC Distribution Width SD 71.7 fl (35.1-43.9); Red Blood Count 3.64 M/mm3 (4.2-5.4); White Blood Count 4.8 K/mm3 (4.4-11.0)
[2021-10-29] MEDS: Ondansetron 4 MG/2 ML Vial IV (09:36)
[2021-10-29] MEDS: 0.9% Normal Saline 1,000 ML 999 ML IV (09:36)
[2021-10-29 09:42] LABS: Differential Indicated SCAN CRITERIA MET
[2021-10-29 09:54] LABS: ALB/GLOB Ratio 0.9 RATIO (0.9-2.4); AST(SGOT) 79 U/L (15-37); Alanine Aminotransfer ALT/SGPT 128 U/L (13-56); Albumin, Serum 3.1 g/dL (3.2-5.0); Alkaline Phosphatase 177 U/L (45-117); Anion Gap 12 (5-15); BUN 12 mg/dL (7-18); Calcium,Total 8.7 mg/dL (8.5-10.1); Chloride 103 mmol/L (98-107); EST Glomerular Filtration Rate 121 mL/min (>60); Est Glom Filt Rate - Afr Amer 146 mL/min (>60); Estimated Creatinine Clearance 122.51 ml/min; Globulin 3.6 g/dL (2.2-4.2); Glucose 104 mg/dL (74-106); Lipase 177 U/L (73-393); Potassium 3.2 mmol/L (3.5-5.1); Protein, Total 6.7 g/dL (6.4-8.2); Sodium Level 141 mmol/L (136-145)
[2021-10-29 10:22] LABS: Anisocytosis 2+; Platelet Estimate ADEQUATE (ADEQ); Red Cell Morphology N CHROM NORMAL (NORM C&C)
--- NOTE | 2021-10-29 10:38 | CM.ED ---
Social Work Note Reason for Referral: Pt has ED Care Plan SW reviewed chart and pt has ED Care Plan. SW updated MD Mak. Lorin Reyna BLACK OXIDE OPERATOR, CONSULAR OFFICER
[2021-10-29] MEDS: Metoclopramide 10 MG/2 ML Vial 5 MG IV (10:52)
== END 2021-10-29 12:16 | disposition home or self-care (01) ==
PROVIDERS: Emergency Provider Emergency Medicine; PCP Family Medicine; Visit Provider Emergency Medicine
DX: K92.2 Gastrointestinal hemorrhage, unspecified (principal); R74.8 Abnormal levels of other serum enzymes; R19.7 Diarrhea, unspecified; Z80.0 Family history of malignant neoplasm of digestive organs; R11.10 Vomiting, unspecified; Z98.84 Bariatric surgery status
CPT/HCPCS: 80053; 82274; 83690; 85025; 86850; 86900; 86901; 99283; J7030; A4216; J2405; J3490

== ENCOUNTER 2021-12-11 18:58 | Inpatient (IN) | payer MEDICAID, SELFPAY ==
[2021-12-11 20:48] VITALS: O2SAT 97
[2021-12-11 21:58] VITALS: BMI 33.9
--- NOTE | 2021-12-11 21:58 | HP.PCM.HOS_ITS ---
HPI - General General Date of Admission: 12/11/21 Date of Service: 12/11/21 Chief Complaint: Abdominal pain, abnormal labs. HPI Narrative The patient is a 36 y/o F w/ PMHx: HTN, HLD, Hx Gastric ulcer, Chronic anemia/Fe deficiency anemia, Obesity, Hx Gastric bypass with most recent evaluation by gastroenterology Dr. Roberson with anastomotic ulcer felt secondary to poor nutrition with recommended continue PPI, possible APC/radiofrequency ablation to promote healing and most recent noted endoscopies with EGD and colonoscopy 07/18/2021 with evidence of LA grade a reflux esophagitis, Og-en-Y gastrojejunostomy and anastomosis with congestion, edema, erosion, erythema, hemorrhagic appearance, ulceration with moderate stenosis treated with a heater probe and dilation at that time with biopsy of the mucosal congestion and hemorrhage with multiple detached fragments of fibrinopurulent exudate who presents to the [facility] ED on 12/11/21 as a direct admission following recent history of referral to the outside hospital ED secondary to abnormal labs per PCP with noted hypokalemia, elevated bilirubin and elevated liver enzymes with concern for ongoing acute intractable abdominal pain x4 days described as constant primarily in the upper abdomen with associated nausea and emesis with inability to keep any of her medications or food down described as moderate in severity with concern for acute on chronic pancreatitis. Work-up at the OSH ED included vital signs with initial BP 183/121 with most recent repeat prior to transition 162/102, respiratory rate 16, heart rate 99, SPO2 96% on room air, CMP with sodium 134, potassium 3.2, BUN/creatinine 10/0.62, bilirubin 3.0, AST/ALT 146/102, alk phos 219, albumin 3.6, lipase 23, unremarkable beta hCG assessment, CT unremarkable with noted postop changes of the stomach, enteric anastomotic perez tures in the left upper quadrant and advanced degree of fatty liver changes with no evidence of other acute intra-abdominal pathology however patient per report did have MRI of the abdomen approximately 1 month prior with pancreatic stranding noted at that time, SARS COVID testing negative, CBC with WBC 2.0, hemoglobin 14.2, platelet 184 without marked shift. In the ED patient was administered Zofran, Reglan for nausea as well as Protonix and Dilaudid x2. Patient of note was also evaluated in the outside facility ED 2 days prior to her most recent evaluation. [facility] Medical History Back problem Bladder infection Excessive weight loss Gallstones High blood pressure Intertrigo Kidney stones Soft tissue mass Stomach ulcer Ulcer Vitamin deficiency Home Medications ergocalciferol (vitamin D2) 1,250 mcg (50,000 unit) capsule 50,000 unit PO TH SUPPLEMENT 04/30/17 [History Last Taken 07/10/21] tamsulosin 0.4 mg capsule 0.4 mg PO DAILY PRN PRN kidney stones 04/30/17 [History Last Taken 3 Weeks Ago ~06/25/21] lisinopril 40 mg tablet 40 mg PO BID BP 05/30/17 [History Last Taken 07/16/21] cyanocobalamin (vitamin B-12) 1,000 mcg/mL injection solution 1,000 mcg IM Q30D VITAMIN 07/06/17 [History Last Taken 07/15/21] ondansetron 4 mg disintegrating tablet 4 mg PO 4X/DAY PRN PRN Nausea #30 tabs 03/16/19 [Rx Last Taken Unknown] amitriptyline 50 mg tablet 50 mg PO QHS PRN PRN Sleep 11/29/19 [History Last Taken 07/09/21] amlodipine 10 mg tablet 10 mg PO DAILY bp 07/16/21 [History Last Taken 07/16/21] acidophilus 25 million cell-pectin, citrus 100 mg tablet 1 tab PO BID 30 days #60 tabs 07/19/21 [Rx Last Taken Unknown] ferrous sulfate 325 mg (65 mg iron) tablet (FeroSul) 325 mg PO DAILYCM 30 days #30 tabs 07/19/21 [Rx Last Taken Unknown] misoprostol 200 mcg tablet 200 mcg PO .qid 30 days #120 tabs 07/19/21 [Rx Last Taken Unknown] pantoprazole 40 mg tablet,delayed release 40 mg PO BID 30 days #0 tabs 07/19/21 [Rx Last Taken 07/16/21] hydrocodone-acetaminophen 5-325mg 5mg-325mg 0.5 - 1 tab PO Q6H PRN pain 2 days #8 TABLETS 07/25/21 [Rx Last Taken Unknown] sucralfate 100 mg/mL oral suspension (Carafate) 10 ml PO 4X/DAY #414 mL 07/25/21 [Rx Last Taken Unknown] lidocaine HCl 2 % mucosal solution (Lidocaine Viscous) 1 applic mucous membrane TID PRN pain #100 mL 08/08/21 [Rx Last Taken Unknown] sucralfate 100 mg/mL oral suspension 10 ml PO TID #1,000 mL 08/08/21 [Rx Last Taken Unknown] metoclopramide HCl 10 mg tablet 10 mg PO Q6H PRN Nausea And Vomiting #20 tabs 10/29/21 [Rx Last Taken Unknown] ondansetron 4 mg disintegrating tablet 8 mg PO Q8H PRN PRN Nausea #20 tabs 10/29/21 [Rx Last Taken Unknown] Allergy/AdvReac Type Severity Reaction Status Date / Time methocarbamol Allergy Chest Verified 10/29/21 08:40 tightness diphenhydramine AdvReac Other Verified 12/11/21 22:02 [From Benadryl] gabapentin AdvReac abnormal Verified 10/29/21 08:40 gait ketorolac tromethamine AdvReac Upset Verified 10/29/21 08:40 [From Toradol] Stomach NSAIDS (Non-Steroidal AdvReac gastric Verified 10/29/21 08:40 Anti-Inflamma bipass not supposed to take tramadol AdvReac Upset Verified 10/29/21 08:40 Stomach Family History Mother Anxiety Bleeding disorder Depression Hypertension High cholesterol Cancer Father Diabetes Hypertension Grandfather Colon cancer Diabetes Heart disease Surgical History (Updated 08/08/21 @ 09:36 by Arpita Tolbert) History of cholecystectomy History of gastric bypass History of incision and drainage History of incision and drainage History of nephrolithotomy with removal of calculi History of thyroidectomy Status post panniculectomy (~09/17/16) Social History Smoking Status: Never smoker second hand exposure: Yes alcohol intake: current substance use type: does not use what type of physical activity do you participate in: other seatbelt use: always do you feel safe at home: Yes additional social history: SUN EXPOSURE: OCCASIONALLY ROS ROS Narrative Admission Review of Systems: CONSTITUTIONAL: No weight loss, fever, chills, + weakness or fatigue. HEENT: Eyes: No visual loss, blurred vision, double vision or yellow sclerae. Ears, Nose, Throat: No hearing loss, sneezing, congestion, runny nose or sore throat. SKIN: No rash or itching, lesions, wounds. CARDIOVASCULAR: No chest pain, chest pressure or chest discomfort, palpitations, edema, orthopnea, syncopal events. RESPIRATORY: No shortness of breath, cough or sputum, wheezing, hemoptysis. GASTROINTESTINAL: + Anorexia, nausea, emesis, abdominal pain, occasional dark stools, intermittent loose stools, No BRBPR. GENITOURINARY: No dysuria, frequency, urgency or retention. NEUROLOGICAL: No headache, dizziness, syncope, paralysis, ataxia, numbness or tingling in the extremities, focal weakness, change in bowel or bladder control, seizure. MUSCULOSKELETAL: + muscle, back pain, joint pain or stiffness. HEMATOLOGIC: + anemia, bleeding or bruising. LYMPHATICS: No enlarged nodes. No history of splenectomy. PSYCHIATRIC: + Insomnia, No history of depression or anxiety. ENDOCRINOLOGIC: No reports of sweating, cold or heat intolerance. No polyuria or polydipsia. ALLERGIES: No history of asthma, hives, eczema or rhinitis. Physical Exam Narrative Physical Examination: General: Awake, alert, oriented x 3 and cooperative, seated upright in the transport bed, notes ongoing abdominal discomfort. Skin: Normal color, normal turgor, no icterus, no cyanosis. HEENT: AT/NC, EOMI, PERRLA, dry MM, no carotid bruits or JVD noted. Lungs: Mildly diminished, greater bases, poor effort, no rales, ronchi or wheezing. Heart: Currently regular rate and rhythm; no gallop, rub audible. Abdomen: Soft, discomfort especially to the epigastric and bilateral upper quadrant, primarily epigastric, voluntary guarding, some mild rebound, no obvious distention, hyperactive bowel sounds, no marked HSM. Extremities: No cyanosis, no clubbing, mild bilateral ankle not markedly pitting edema. Neurological: Patient awake, alert, oriented as noted, cognitive function intact; pupils equally reactive to light and accommodation, cranial nerves II- XII grossly normal, moving all 4 extremities, no focal deficits, strength mildly to moderately global decreased. Psychiatric: Affect appears fatigued, reports abdominal discomfort ongoing, no acute evidence of depressive or anxiety feelings. Assessment & Plan Assessment/Plan (1) Pancreatitis: PLAN: Plan The patient is a 36 y/o F w/ PMHx: HTN, HLD, Hx Gastric ulcer, Chronic anemia/Fe deficiency anemia, Obesity, Hx Gastric bypass with most recent evaluation by gastroenterology Dr. Roberson with anastomotic ulcer felt secondary to poor nutrition who presents to the [facility] ED on 12/11/21 as a direct admission following recent history of referral to the outside hospital ED secondary to abnormal labs per PCP with noted hypokalemia, elevated bilirubin and elevated liver enzymes with concern for ongoing acute intractable abdominal pain x4 days described as constant primarily in the upper abdomen with associated nausea and emesis with inability to keep any of her medications or food down described as moderate in severity with concern for acute on chronic pancreatitis. #1. Acute on Chronic Suspected Pancreatitis w/ abdominal pain, N/V w/ Chronically Elevated LFTs, Bilirubin: Will admit to PCU (requested per accepting hospitalist secondary to OSH ED notably elevated BP of note), maintain on IVFs, NPO, PPI, IV/po pain control, trend lipase as well as amylase, CMP. Given complicated gastroenterology history will request Dr. Roberson involvement upon presentation. #2. Chronic Anemia/Fe deficiency anemia associated w/ Anastomic Ulcer s/p Og-en-Y, Hx prior Gastric Ulcer: Outside facility hemoglobin 14.2, suspect this is falsely mildly elevated, will continue to judiciously hydrate, repeat CBC in a.m. Patient following gastroenterology w/ most recent noted endoscopies with EGD and colonoscopy 07/18/2021 with evidence of LA grade a reflux esophagitis, Og-en-Y gastrojejunostomy and anastomosis with congestion, edema, erosion, erythema, hemorrhagic appearance, ulceration with moderate stenosis treated with a heater probe and dilation at that time with biopsy of the mucosal congestion and hemorrhage with multiple detached fragments of fibrinopurulent exudate. Anastomotic ulcer felt secondary to poor nutrition, vitamin B12 and folic acid levels be requested, continue PPI therapy as noted. GI notes possible future attempts for APC or radiofrequency ablation on the ulcer promote healing. We will continue Carafate. Continue iron supplementation. #3. Hypokalemia: Admission K+ 3.2, magnesium level requested, supplementation given, repeat level in AM. #4. Hypertension: Continue home regimen including lisinopril, amlodipine with hold parameters as needed, PRN hydralazine. #5. Hyperlipidemia: Not on statin, defer to outpatient. #6. Obesity: Weight loss and lifestyle changes encouraged. #7. DVT prophylaxis: SCDs, defer chemoprophylaxis given #2, high risk GI bleed. Charges/Coding Visit Charges Inpatient E&M: 02618 Init Hosp L3
[2021-12-11 22:00] VITALS: BP 153/100; PULSE 90; RESP 18; TEMP 36.9; O2SAT 97
[2021-12-11 22:23] VITALS: PULSE 92
[2021-12-11] MEDS: HYDROmorphone 0.5 MG/0.5 ML SYRINGE IV (22:48)
[2021-12-11] MEDS: proCHLORPERazine 10 MG/2 ML Vial 5 MG IV (22:50)
[2021-12-11] MEDS: amLODIPine 10 MG Tablet PO (23:00)
[2021-12-11] MEDS: 0.9% Normal Saline 1,000 ML 150 ML IV (23:00)
[2021-12-11] MEDS: Lisinopril 40 MG Tablet PO (23:00)
[2021-12-11 23:31] LABS: Erythrocyte Sedimentation Rate 3 mm/hr (0-30)
[2021-12-11 23:44] LABS: Magnesium 1.6 mg/dL (1.6-2.6)
[2021-12-12] VITALS (10 sets, daily range): BP systolic 126–136; BP diastolic 73–83; PULSE 77–109; RESP 14–18; TEMP 36.7–37.1; O2SAT 94–100
[2021-12-12 00:02] LABS: Phosphorus 2.6 mg/dL (2.5-4.9)
[2021-12-12] MEDS: HYDROmorphone 0.5 MG/0.5 ML SYRINGE IV ×5 (03:44→21:38)
[2021-12-12 06:28] LABS: Absolute Lymphocyte Count 0.31 X10^3/uL (0.83-4.51); Absolute Neutrophil Count 0.8 X10^3/uL (2.0-7.7); Basophil# 0.01 X10^3/uL; Basophil% 0.8 % (0-1); Eosinophil# 0.02 X10^3/uL; Eosinophils% 1.5 % (0-5); Hematocrit 32.6 % (37-47); Hemoglobin 11.3 g/dL (12.0-15.0); Lymphocyte # 0.31 X10^3/ul (0.83-4.51); Lymphocyte % 23.5 % (19-41); Mean Corp Hgb Conc 34.7 g/dL (32-36); Mean Corpuscular Hgb 37.2 pg (27.0-32.0); Mean Corpuscular Volume 107.2 fL (81-99); Mean Platelet Vol. 10.8 fl (6.2-12.0); Monocyte# 0.16 X10^3/uL; Monocyte% 12.1 % (0-10); NRBC Flagged by Analyzer 0 % (0-5); Neutrophil # 0.81 X10^3/uL (2.7-7.7); Neutrophil % 61.3 % (47-70); POSITIVE COUNT YES; POSITIVE DIFFERENTIAL YES; Platelet Count 126 K/mm3 (150-450); RBC Distribution Width CV 15.1 % (11.6-14.6); RBC Distribution Width SD 58.2 fl (35.1-43.9); Red Blood Count 3.04 M/mm3 (4.2-5.4)
[2021-12-12 06:35] LABS: Differential Indicated SCAN CRITERIA MET; White Blood Count 1.3 K/mm3 (4.4-11.0)
[2021-12-12 06:51] LABS: Anisocytosis 1+; Differential Comment SCANNED; Macrocytosis 1+
[2021-12-12 07:01] LABS: ALB/GLOB Ratio 0.9 RATIO (0.9-2.4); AST(SGOT) 136 U/L (15-37); Alanine Aminotransfer ALT/SGPT 95 U/L (13-56); Albumin, Serum 2.5 g/dL (3.2-5.0); Alkaline Phosphatase 171 U/L (45-117); Amylase 19 U/L (25-115); Anion Gap 7 (5-15); BUN 9 mg/dL (7-18); BUN/Creat Ratio 19.5 RATIO (10-20); Calcium,Total 8.2 mg/dL (8.5-10.1); Chloride 104 mmol/L (98-107); Creatinine, Serum 0.46 mg/dL (0.55-1.02); EST Glomerular Filtration Rate 163 mL/min (>60); Est Glom Filt Rate - Afr Amer 197 mL/min (>60); Globulin 2.9 g/dL (2.2-4.2); Glucose 74 mg/dL (74-106); Lipase 122 U/L (73-393); Potassium 3.8 mmol/L (3.5-5.1); Protein, Total 5.4 g/dL (6.4-8.2); Sodium Level 140 mmol/L (136-145)
[2021-12-12] MEDS: 0.9% Normal Saline 1,000 ML 150 ML IV ×3 (07:18→21:49)
[2021-12-12 08:00] LABS: Vitamin B12 1675 pg/mL (211-911)
[2021-12-12] MEDS: Ferrous Sulfate 325 MG Tablet PO (08:22)
[2021-12-12] MEDS: amLODIPine 10 MG Tablet PO (08:23)
[2021-12-12] MEDS: Folic Acid 1 MG Tablet PO (09:28)
--- NOTE | 2021-12-12 10:08 | MRI_ITS ---
STUDY: MR MRCP AND ABDOMEN WITHOUT CONTRAST REASON FOR EXAM: Female, 36 years old. Abdominal pain and transaminitis TECHNIQUE: Routine abdominal MR angiographic protocol was performed. 3D reconstructions were reviewed. Standard MRCP technique was utilized. INDICATION: abdominal pain and transaminitis EXAMINATION: MRA - MR MRCP and Abdomen W/O Contrast IV Contrast Dosage and Agent: None. COMPARISON: CT dated 06/13/2021 FINDINGS: The visualized lung bases are clear. The liver is mildly hyperintense on the T1 and T2-weighted images suggestive of fatty infiltration. There is hepatomegaly. There is no intra or extrahepatic ductal dilatation. The gallbladder is surgically absent. The spleen and pancreas are within normal limits. The pancreatic duct is within normal limits. The adrenal glands and kidneys are grossly unremarkable. There is evidence of a prior gastric bypass. There appears to be a small duodenal diverticulum. The visualized loops of colon are within normal limits. There is nonvisualization of the appendix. MRI/MRCP Abdomen without Contrast IMPRESSION: Findings suggestive of fatty infiltration of the liver associated with hepatomegaly. Status post cholecystectomy. Electronically Signed: Jennifer Rivas MD at 11:25 EDT ,
[2021-12-12 13:45] LABS: Pathologist Review Reviewed
--- NOTE | 2021-12-12 14:24 | PN.HOSP_ITS ---
Subjective Subjective That she is currently not having any significant abdominal pain and is hungry. She reports that a liver biopsy was ordered but never followed through on because she had hospitalizations. It sounds like she has been admitted twice over at [facility] in the recent past for similar issues. Lipase was normal and remains normal and [address] of the abdomen pelvis did not show any pancreatic stranding. Objective Data Objective Data Vital Signs: Vital Signs Temp Pulse Resp BP Pulse Ox O2 Del Method 98.8 F 96 14 127/82 H 100 Room Air 12/12/21 14:06 12/12/21 14:06 12/12/21 14:06 12/12/21 14:06 12/12/21 14:06 12/12/21 14:06 Oxygen Delivery Method Room Air Weight: 95.3 kg Body Mass Index (BMI) 33.9 Intake & Output: Intake and Output for Last 24 Hours 12/10/21 12/11/21 12/12/21 23:59 23:59 23:59 Intake Total 1547.5 / 1547.5 Balance 1547.5 / 1547.5 Lab / Micro Data Result Diagrams: 12/12/21 05:45 12/12/21 05:45 Labs: Laboratory Results - last 24 hr 12/11/21 22:50: ESR 3 12/11/21 22:50: Magnesium 1.6, C-React Prot Ext Range 15.90 H 12/11/21 22:50: Phosphorus 2.6 12/12/21 05:45: WBC 1.3 L*, RBC 3.04 L, Hgb 11.3 L, Hct 32.6 L, MCV 107.2 H, MCH 37.2 H, MCHC 34.7, RDW Std Deviation 58.2 H, RDW Coeff of Andrez 15.1 H, Plt Count 126 L, MPV 10.8, Immature Gran % (Auto) 0.800, Neut % (Auto) 61.3, Lymph % (Auto) 23.5, Barry % (Auto) 12.1 H, Eos % (Auto) 1.5, Baso % (Auto) 0.8, Absolute Neuts (auto) 0.8 L, Absolute Lymphs (auto) 0.31 L, Nucleated RBC % 0, Differential Comment SCANNED, Diff Path Review Reviewed, Anisocytosis 1+, Macr ocytosis 1+ 12/12/21 05:45: Sodium 140, Potassium 3.8, Chloride 104, Carbon Dioxide 29.0, Anion Gap 7, BUN 9, Creatinine 0.46 L, Estim Creat Clear Calc 159.80, Est GFR (MDRD) Af Amer 197, Est GFR (MDRD) Non-Af 163, BUN/Creatinine Ratio 19.5, Glucose 74, Calcium 8.2 L, Total Bilirubin 1.90 H, AST 136 H, ALT 95 H, Alkaline Phosphatase 171 H, Total Protein 5.4 L, Albumin 2.5 L, Globulin 2.9, A lbumin/Globulin Ratio 0.9, Amylase 19 L, Lipase 122, Folate 4.00 12/12/21 05:45: Vitamin B12 1675 H Radiography Diagnostic Testing: Radiology Impression MRCP 12/12/21 10:08 IMPRESSION: Findings suggestive of fatty infiltration of the liver associated with hepatomegaly. Status post cholecystectomy. Electronically Signed: Jennifer Rivas MD at 11:25 EDT Reading Location ID and State: [facility] / [place] Tel , Service support , Physical Exam Const alert, oriented x3 and no apparent distress Constitutional Narrative: Obese, middle-aged, white female sitting up in bed, appears comfortable, nontoxic, very pleasant, good historian HEENT head/scalp atraumatic HEENT Narrative: Perioral chelosis, Mallampati 3, dentition is fair, no thrush Head and Scalp: normocephalic Resp normal respiratory effort, no retractions, no use of accessory muscles and clear to auscultation bilaterally Auscultation: Negative for crackles, rales, rhonchi or wheezes Cardio regular rate, regular rhythm, S1 normal heart sound, S2 normal heart sound, no murmurs, no rub, no gallops, no clicks and no JVD GI normal to inspection, nondistended, normoactive bowel sounds and soft to palpation GI Narrative: Mild epigastric tenderness, extensive scarring most notably at the inferior abdomen related to pannus removal with recurrent surgeries Extremity no clubbing, cyanosis or edema Neuro oriented x3, moves all extremities, no focal motor deficits and no sensory deficits noted Speech: speech normal Psych affect normal Psych Narrative: Very pleasant and appropriately interactive Assessment & Plan Assessment/Plan (1) Abdominal pain: (2) Nausea and vomiting: (3) Pancytopenia: (4) Fatty liver: (5) Hyperbilirubinemia: PLAN: Plan Abdominal pain/nausea vomiting -Lipase normal with unremarkable CT of the abdomen pelvis -MRCP was ordered and unremarkable -Likely that this is a bout of acute pancreatitis given normal lipase and no imaging abnormalities consistent with acute pancreatitis -Nausea and abdominal pain is improved -We will start full liquid diet since MRCP is unremarkable and advance to regular diet as able -Continue Protonix but transition to p.o. twice daily -Continue home Reglan -add scopolamine patch -Add Ativan 0.25 mg twice daily per discussion with GI -CRP is elevated however this appears to be chronic -ESR is normal Transaminitis/hyperbilirubinemia -Improved since admission -MRCP unremarkable -Patient with known fatty liver -Repeat lab in a.m. -Patient denies alcohol use Severe hepatic steatosis -Liver biopsy ordered in July [address] Roberson the patient has not yet had the procedure -Will likely need liver biopsy -Await input from GI -May be why her liver enzymes are elevated Pancytopenia -Patient with mild chronic anemia which appears to be stable -Leukopenia and thrombocytopenia appear to be new -Patient has had mild leukopenia previously but not to this extent -No new medications that would cause this -Repeat lab in a.m. 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 twice daily Hypokalemia -Resolved -Repeat BMP in a.m. Hypertension -Continue home lisinopril -Continue home amlodipine -As needed hydralazine for systolic greater than 160 Hyperlipidemia -Patient is not on a statin -Never had lipid profile here -With fatty liver and history of pancreatitis we will check lipid profile in a.m. 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
--- NOTE | 2021-12-12 14:45 | CASEMGMT ---
RICARDO BECKFORD assessment: Face to Face with patient for initial transition planning/care coordination assessment. RICARDO BECKFORD introduced self and role at [facility], pt voices understanding and consents to assessment. Pt is sitting up in chair on room air in no distress. Pt is A/Ox4 and answers all questions appropriately.? Care providers, pharmacy,?and demographics verified. ? Presentation: Pt direct admit for noted hypokalemia, elevated bilirubin and elevated liver enzymes with concern for ongoing acute intractable abdominal pain x4 days Admitting dx: Abd pain PCP: Blade Specialists: Friend, GI; Masci, heme Preferred Pharmacy: [facility] Insurance: [employer]idel[employer] Prescription Benefit:?Fidelis Living Will/HPOA: Pt has LW/HPOA on file at [facility] and pt is aware. Pt's sister, Arleen Salazar, is HPOA. LNOK: Faith Salazar, mother; Arleen Salazar, sister/HPOA Living Arrangements: Pt lives with mother in 1 story home and states no concerns at home. Pt is independent with ADL's. Transportation: Pt states drives self and states no transportation concerns. DME/HHC: Pt has no current DME or need for any further DME. Pt states has had HHC in past but states no hx of SNF. Pt states no concerns with going home at discharge. 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 Pt does not smoke cigarettes or drink ETOH. Pt states no further concerns/needs. CM to follow for any further discharge planning/needs. Advised pt to ask for CM if any further questions/concerns/needs arise, voices understanding. Pt goal: Home Plan: [place] RICARDO BECKFORD
[2021-12-12] MEDS: oxyCODONE 5 MG Tablet PO (15:09)
[2021-12-12] MEDS: Scopolamine 1mg/72hr Patch 1 PATCH TD (16:06)
--- NOTE | 2021-12-12 16:57 | NURSING ---
Reviewed charting with Anamaria Andrea RN
--- NOTE | 2021-12-12 18:10 | PN_ITS ---
Subjective Subjective Patient is still having abdominal pain but her nausea is better since administration of scopolamine. She is able to tolerate liquids at this time. She has not tried solid food yet. Wait a long talk at the bedside regarding her refractory abdominal pain that has been persistent despite all medical therapies. She seemed quite discouraged. Objective Data Objective Data Vital Signs: Vital Signs Temp Pulse Resp BP Pulse Ox O2 Del Method 98.8 F 109 H 14 127/82 H 100 Room Air 12/12/21 14:06 12/12/21 15:00 12/12/21 14:06 12/12/21 14:06 12/12/21 14:06 12/12/21 14:06 Oxygen Delivery Method Room Air Weight: 210 lb 1.608 oz Body Mass Index (BMI) 33.9 Intake & Output: Intake and Output for Last 24 Hours 12/10/21 12/11/21 12/12/21 23:59 23:59 23:59 Intake Total 2382.5 / 2382.5 Balance 2382.5 / 2382.5 Lab / Micro Data Result Diagrams: 12/12/21 05:45 12/12/21 05:45 Labs: Laboratory Results - last 24 hr 12/11/21 22:50: ESR 3 12/11/21 22:50: Magnesium 1.6, C-React Prot Ext Range 15.90 H 12/11/21 22:50: Phosphorus 2.6 12/12/21 05:45: WBC 1.3 L*, RBC 3.04 L, Hgb 11.3 L, Hct 32.6 L, MCV 107.2 H, MCH 37.2 H, MCHC 34.7, RDW Std Deviation 58.2 H, RDW Coeff of Andrez 15.1 H, Plt Count 126 L, MPV 10.8, Immature Gran % (Auto) 0.800, Neut % (Auto) 61.3, Lymph % (Auto) 23.5, [place] % (Auto) 12.1 H, Eos % (Auto) 1.5, Baso % (Auto) 0.8, Absolute Neuts (auto) 0.8 L, Absolute Lymphs (auto) 0.31 L, Nucleated RBC % 0, Differential Comment SCANNED, Diff Path Review Reviewed, Anisocytosis 1+, Macrocytosis 1+ 12/12/21 05:45: Sodium 140, Potassium 3.8, Chloride 104, Carbon Dioxide 29.0, Anion Gap 7, BUN 9, Creatinine 0.46 L, Estim Creat Clear Calc 159.80, Est GFR (MDRD) Af Amer 197, Est GFR (MDRD) Non-Af 163, BUN/Creatinine Ratio 19.5, Glucose 74, Calcium 8.2 L, Total Bilirubin 1.90 H, AST 136 H, ALT 95 H, Alkaline Phosphatase 171 H, Total Protein 5.4 L, Albumin 2.5 L, Globulin 2.9, Albumin/Globulin Ratio 0.9, Amylase 19 L, Lipase 122, Folate 4.00 12/12/21 05:45: Vitamin B12 1675 H Radiography Diagnostic Testing: Radiology Impression MRCP 12/12/21 10:08 IMPRESSION: Findings suggestive of fatty infiltration of the liver associated with hepatomegaly. Status post cholecystectomy. Electronically Signed: Jennifer Rivas MD at 11:25 EDT , Physical Exam Const alert, oriented x3 and no apparent distress Constitutional Narrative: very pleasant HEENT head/scalp atraumatic HEENT Narrative: Perioral chelosis, Mallampati 3, dentition is fair, no thrush Head and Scalp: normocephalic Resp normal respiratory effort, no retractions, no use of accessory muscles and clear to auscultation bilaterally Auscultation: Negative for crackles, rales, rhonchi or wheezes Cardio regular rate, regular rhythm, S1 normal heart sound, S2 normal heart sound, no murmurs, no rub, no gallops, no clicks and no JVD GI normal to inspection, nondistended, normoactive bowel sounds and soft to palpation GI Narrative: Mild epigastric tenderness, extensive scarring most notably at the inferior abdomen related to pannus removal with recurrent surgeries Extremity no clubbing, cyanosis or edema Neuro oriented x3, moves all extremities, no focal motor deficits and no sensory deficits noted Speech: speech normal Psych affect normal Psych Narrative: Very pleasant and appropriately interactive Assessment & Plan Assessment/Plan (1) Hyperbilirubinemia: PLAN: Hyperbilirubinemia is more direct and indirect. I think this is actually secondary to portal hypertension rather than Gilbert's syndrome in the setting of increased transaminitis and alkaline phosphatase. She had an MRCP did not show any signs of hepatobiliary disease. There was also no pancreatic disease seen although the imaging has suggested that she had either subclinical or clinical pancreatitis. (2) Transaminitis: PLAN: Transaminitis thought to be secondary to nonalcoholic steatohepatitis and not secondary to obstructive disease. Nothing was seen on imaging and regarding obstructive physiology. I think she needs to get a liver biopsy (3) Pancytopenia: PLAN: . Pancytopenia from unknown cause. I do recommend to repeat the CBC. (4) Nausea and vomiting: PLAN: Nausea vomiting in a patient with persistent nausea vomiting prior to her undergoing cholecystectomy and gastric bypass. Differential diagnosis would include cyclic vomiting syndrome. Continue scopolamine patch, PPI drip, as needed Ativan 0.5 mg every 8 hours as needed. And rectal Compazine 25 mg every 12 hours as needed (5) Abdominal pain: Charges/Coding Visit Charges Inpatient E&M: 09787 Subs Hosp L3
[2021-12-12] MEDS: LORazepam 0.5 MG Tablet 0.25 MG PO (21:42)
[2021-12-12] MEDS: Lisinopril 40 MG Tablet PO (23:19)
[2021-12-12] MEDS: Pantoprazole Sodium 40 MG Tablet PO (23:20)
[2021-12-13 04:29] VITALS: BP 141/82; PULSE 97; RESP 18; TEMP 36.4; O2SAT 98
[2021-12-13] MEDS: HYDROmorphone 0.5 MG/0.5 ML SYRINGE 1 MG IV (04:33)
[2021-12-13] MEDS: 0.9% Normal Saline 1,000 ML 150 ML IV (04:35)
[2021-12-13 07:09] VITALS: O2SAT 95
[2021-12-13] MEDS: Folic Acid 1 MG Tablet PO (08:52)
[2021-12-13] MEDS: Ferrous Sulfate 325 MG Tablet PO (08:52)
[2021-12-13 09:00] VITALS: BP 138/93; PULSE 88; PULSE 89; RESP 16; TEMP 37; O2SAT 100
--- NOTE | 2021-12-13 10:00 | PN_ITS ---
Subjective Subjective She is still having a lot of abdominal pain but she is able to tolerate a diet. She is having bowel movements. She is not having any chest pain or shortness of breath. She has nausea but it is only a 3 out of 10 with the scopolamine patch. Objective Data Objective Data Vital Signs: Vital Signs Temp Pulse Resp BP Pulse Ox O2 Del Method 98.6 F 88 16 138/93 H 100 Room Air 12/13/21 11:10 12/13/21 11:10 12/13/21 11:10 12/13/21 11:10 12/13/21 11:10 12/13/21 11:10 Oxygen Delivery Method Room Air Weight: 213 lb 2.992 oz Body Mass Index (BMI) 33.9 Intake & Output: Intake and Output for Last 24 Hours 12/11/21 12/12/21 12/13/21 23:59 23:59 23:59 Intake Total 3382.5 / 3542.5 1802.5 / 1802.5 Balance 3382.5 / 3542.5 1802.5 / 1802.5 Lab / Micro Data Result Diagrams: 12/13/21 10:01 12/13/21 08:50 Labs: Laboratory Results - last 24 hr 12/13/21 08:50: WBC Cancelled, Corrected WBC Cancelled, RBC Cancelled, Hgb Cancelled, Hct Cancelled, MCV Cancelled, MCH Cancelled, MCHC Cancelled, RDW Std Deviation Cancelled, RDW Coeff of Andrez Cancelled, Plt Count Cancelled, MPV Cancelled, Immature Gran % (Auto) Cancelled, Neut % (Auto) Cancelled, Lymph % (Auto) Cancelled, Taylor % (Auto) Cancelled, Eos % (Auto) Cancelled, Baso % (Auto) Cancelled, Absolute Neuts (auto) Cancelled, Absolute Lymphs (auto) Cancelled, Total Counted Cancelled, Neutrophils % (Manual) Cancelled, Band Neutrophils % Cancelled, Lymphocytes % (Manual) Cancelled, Monocytes % (Manual) Cancelled, Eosinophils % (Manual) Cancelled, Basophils % (Manual) Cancelled, Metamyelocytes % Cancelled, Myelocytes % Cancelled, Promyelocytes % Cancelled, Blast Cells % Cancelled, Plasma Cell % (Manual) Cancelled, Other Cells % Cancelled, Nucleated RBC % Cancelled, Nucleated RBCs/100 WBC Cancelled, Differential Comment Cancelled, Diff Path Review Cancelled, Hypersegmented Neuts Cancelled, Atypical Lymphocytes Cancelled, Reactive Lymphocytes Cancelled, Smudge Cells Cancelled, Toxic Granulation Cancelled, Toxic Vacuolation Cancelled, Dohle Bodies Cancelled, Karissa Rods Cancelled, Platelet Estimate Cancelled, Plt Morphology Comment Cancelled, RBC Morphology Cancelled, Polychromasia Cancelled, Hypochromasia Cancelled, Poikilocytosis Cancelled, Basophilic Stippling Cancel led, Anisocytosis Cancelled, Microcytosis Cancelled, Macrocytosis Cancelled, Spherocytes Cancelled, Sickle Cells Cancelled, Target Cells Cancelled, Tear Drop Cells Cancelled, Ovalocytes Cancelled, Stomatocytes Cancelled, [place] Bodies Cancelled, [place] Cells Cancelled, Bite Cells Cancelled, Crenated Cell Cancelled, Acanthocytes (Spur) Cancelled, Rouleaux Cancelled, Schistocytes Cancelled 12/13/21 08:50: Sodium 142, Potassium 4.0, Chloride 110 H, Carbon Dioxide 22.0, Anion Gap 10, BUN 6 L, Creatinine 0.50 L, Estim Creat Clear Calc 147.01, Est GFR (MDRD) Af Amer 180, Est GFR (MDRD) Non-Af 149, BUN/Creatinine Ratio 12.0, Glucose 105, Calcium 8.3 L, Phosphorus 1.7 L, Magnesium 1.6, Total Bilirubin 1.20 H, AST 137 H, ALT 87 H, Alkaline Phosphatase 164 H, Total Protein 5.6 L, Albumin 2.5 L, Globulin 3.1, Albumin/Globulin Ratio 0.8 L, Triglycerides 185, Cholesterol 168, LDL Cholesterol 104, VLDL Cholesterol 37, HDL Cholesterol 27 L, TSH 0.57 12/13/21 10:01: WBC 1.3 L*, RBC 3.19 L, Hgb 11.8 L, Hct 34.5 L, MCV 108.2 H, MCH 37.0 H, MCHC 34.2, RDW Std Deviation 62.4 H, RDW Coeff of Andrez 15.9 H, Plt Count 45 L*, MPV 12.0, Immature Gran % (Auto) 1.500 H, Neut % (Auto) 54.8, Lymph % (Auto) 24.1, Taylor % (Auto) 17.3 H, Eos % (Auto) 1.5, Baso % (Auto) 0.8, Absolute Neuts (auto) 0.7 L, Absolute Lymphs (auto) 0.32 L, Nucleated RBC % 2.3, Differential Comment SCANNED, Diff Path Review May foll, Platelet Estimate MKD DEC, Plt Morphology Comment LARGE Physical Exam Const alert, oriented x3 and no apparent distress Constitutional Narrative: very pleasant HEENT head/scalp atraumatic Head and Scalp: normocephalic Resp normal respiratory effort, no retractions, no use of accessory muscles and clear to auscultation bilaterally Auscultation: Negative for crackles, rales, rhonchi or wheezes Cardio regular rate, regular rhythm, S1 normal heart sound, S2 normal heart sound, no murmurs, no rub, no gallops, no clicks and no JVD GI normal to inspection, nondistended, normoactive bowel sounds and soft to palpation GI Narrative: Mild epigastric tenderness, extensive scarring most notably at the inferior abdomen related to pannus removal with recurrent surgeries Extremity no clubbing, cyanosis or edema Neuro oriented x3, moves all extremities, no focal motor deficits and no sensory deficits noted Speech: speech normal Psych affect normal Psych Narrative: Very pleasant and appropriately interactive Assessment & Plan Assessment/Plan (1) Hyperbilirubinemia: PLAN: Hyperbilirubinemia with transaminitis in the setting of a normal MRCP. The differential diagnosis does include the nonalcoholic steatohepatitis. Her previous work-up for elevated liver enzymes included a normal smooth muscle antibody , normal antimitochondrial antibody, normal copper level and ceruloplasmin. Also her ferritin was within normal limits and her autoantibodies were negative. Her P ANCA was negative and her SYLVIA comprehensive was negative. I had ordered a liver biopsy in July but she did not get that. She will need to get that to further the work-up. (2) Transaminitis: PLAN: Transaminitis likely secondary to underlying chronic liver disease. Her hepatitis profile was negative and she does not show in a work-up so far does not look like autoimmune hepatitis although it is a small chance. (3) Pancytopenia: PLAN: Worsening pancytopenia. The differential diagnosis does include heparin- induced thrombocytopenia. I do not think this is have any effect on her liver function at this time. I would recommend close follow-up and possible hematology consultation (4) Nausea and vomiting: PLAN: . Her nausea vomiting is better with scopolamine patch. I had a long talk with her and told her that she should try to stay away from narcotics as much as possible as she can develop narcotic bowel syndrome, constipation, dependence. (5) Abdominal pain: PLAN: Abdominal pain is chronic and has been going on for multiple years. Almost for the past 10 years with no etiology. She is on PPI therapy and sucralfate therapy for history of anastomotic ulcer. She may need a repeat upper endoscopy in the future. Charges/Coding Visit Charges Inpatient E&M: 90301 Subs Hosp L3
[2021-12-13] MEDS: LORazepam 0.5 MG Tablet 0.25 MG PO (10:14)
[2021-12-13] MEDS: amLODIPine 10 MG Tablet PO (10:15)
[2021-12-13] MEDS: Lisinopril 40 MG Tablet PO (10:15)
[2021-12-13] MEDS: Pantoprazole Sodium 40 MG Tablet PO (10:15)
--- NOTE | 2021-12-13 10:27 | PCM.DC.SUM ---
Providers Date of Admission: 12/11/21 Date of Discharge: 12/13/21 Primary Care Physician: Dr. Patricio Murguia MD Consultations 12/11/21 18:58 Consult: Gastroenterology Routine Consulting Provider: Jesus Alberto Gastroenterology Reason for Consult: Intractable abdominal pain EMERGENT Consult: No MD Notified: Yes Date Notified: 12/11/21 Time Notified: 19:01 Method of Notification: Text Reason For Visit: INTRACTABLE ABDOMINAL PAIN Diagnosis Discharge Diagnosis (1) Hyperbilirubinemia: Status: Acute Code(s): E80.6 - Other disorders of bilirubin metabolism (2) Transaminitis: Status: Acute Code(s): R74.01 - Elevation of levels of liver transaminase levels (3) Pancytopenia: Status: Acute Code(s): D61.818 - Other pancytopenia (4) Nausea and vomiting: Status: Acute Code(s): R11.2 - Nausea with vomiting, unspecified (5) Abdominal pain: Status: Acute Code(s): R10.9 - Unspecified abdominal pain Medications at Discharge Home Medications tamsulosin 0.4 mg capsule 0.4 mg PO DAILY PRN PRN kidney stones 04/30/17 cyanocobalamin (vitamin B-12) 1,000 mcg/mL injection solution 1,000 mcg IM Q30D VITAMIN 07/06/17 ondansetron 4 mg disintegrating tablet 4 mg PO 4X/DAY PRN PRN Nausea #30 tabs 03/16/19 amitriptyline 50 mg tablet 50 mg PO QHS PRN PRN Sleep 11/29/19 amlodipine 10 mg tablet 10 mg PO DAILY bp 07/16/21 pantoprazole 40 mg tablet,delayed release 40 mg PO BID 30 days #0 tabs 07/19/21 sucralfate 100 mg/mL oral suspension 10 ml PO TID #1,000 mL 08/08/21 metoclopramide HCl 10 mg tablet 10 mg PO Q6H PRN Nausea And Vomiting #20 tabs 10/29/21 folic acid 1 mg tablet 1 mg PO BREAKFAST #30 tabs 12/13/21 lorazepam 0.5 mg tablet 0.25 mg PO Q12 #15 tabs 12/13/21 prochlorperazine 25 mg rectal suppository (Compazine) 25 mg TX BID PRN nausea and vomiting #12 ea 12/13/21 scopolamine base 1 mg over 3 days transdermal patch 1 patch transdermal Q3D #10 ea 12/13/21 Hospital Course Operations None Procedures - (MRCP) Summary of Care Provided Minutes Spent on Discharge: 38 Hospital Course: Ms. Salazar is a 36-year-old white female with a complicated gastroenterology history including chronic abdominal pain prior to and after Og-en-Y gastric bypass surgery and suspected anastomotic ulcer with recurrent colonoscopies and endoscopies and ongoing nausea and vomiting. She presented to outside hospital on 12/11/2021 with abdominal pain and abnormal labs per her primary care physician with noted hypokalemia, elevated bilirubin and mild transaminitis. She evidently had acute intractable abdominal pain that had been ongoing for 4 days prior to admission that she described was predominantly in the upper abdomen and associated with nausea and vomiting and the inability to keep anything down including her medications. There is evidently concern for acute pancreatitis. Work-up at the OSH ED included vital signs with initial BP 183/121 with most recent repeat prior to transition 162/102, respiratory rate 16, heart rate 99, SPO2 96% on room air, CMP with sodium 134, potassium 3.2, BUN/creatinine 10/0.62, bilirubin 3.0, AST/ALT 146/102, alk phos 219, albumin 3.6, lipase 23, unremarkable beta hCG assessment, CT unremarkable with noted postop changes of the stomach, enteric anastomotic sutures in the left upper quadrant and advanced degree of fatty liver changes with no evidence of other acute intra-abdominal pathology however patient per report did have MRI of the abdomen approximately 1 month prior with pancreatic stranding noted at that time, SARS COVID testing negative, CBC with WBC 2.0, hemoglobin 14.2, platelet 184 without marked shift.? In the ED patient was administered Zofran, Reglan for nausea as well as Protonix and Dilaudid x2.? Patient of note was also evaluated in the outside facility ED 2 days prior to her most recent evaluation. She is evidently extremely well-known to Dr. Roberson from gastroenterology. Upon admission with a normal lipase and a normal CT with regards to her pancreas it was hard to say that she had pancreatitis however with her liver enzyme abnormalities, which have been abnormal previously, he wanted to proceed with an MRCP for better evaluation of her abdomen. Upon admission she was n.p.o. and placed on medication for pain as well as medication for nausea. He recommended as well prior to the MRCP that I place her on a scopolamine patch, give her rectal Compazine if she is unable to take any oral, and start Ativan 0.25 mg twice daily. We did all of this and the MRCP was performed. MRCP only showed fatty infiltration of the liver with associated hepatomegaly and noted that she was status postcholecystectomy. There is also evidence of prior gastric bypass and a small duodenal diverticulum. With this being normal we started a p.o. diet with full liquids as patient requested not having clear liquids and indicated she was quite hungry. She then transition to a regular diet and had no further bouts of emesis but did complain of some intermittent nausea. Her oral intake was quite good during her hospital stay. Her liver enzyme elevation appears to be chronically elevated since June of this past year and it appears that an ultrasound of her liver was ordered in September and that Dr. Roberson had ordered a liver biopsy to be performed as he suspect she has a hepatic steatosis related to the ongoing metabolic syndrome however wanted to rule out any other ongoing issues that could potentially cause liver disease and assess the severity. It was not felt that this was urgent or emergent and needed to be followed up with as an outpatient. Upon discharge we did recommend she call and schedule this as soon as she was able to get this arranged. Her bilirubin trended down and was only slightly elevated at 1.2 on the day of discharge. Her transaminases remained stable and when compared to previous transaminases from June or actually slightly improved. Given her ability to eat and improvement clinically it was felt that she was stable for discharge home on 12/13/2021 per discussion with gastroenterology. Dr. Roberson did have an extensive discussion with the patient with regards to her ongoing chronic abdominal pain and indicated that he did not want her on any chronic narcotics for this as it could potentially make her worse. The patient did tell him she has a follow-up with pain management upcoming in February and we encouraged her to maintain that follow-up. He also indicated that she needs outpatient follow-up with possible double-balloon enteroscopy versus laparoscopic assisted ERCP at a tertiary [facility] Center but there is no urgency to this either which would require inpatient tertiary hospital transfer. We sent prescriptions for the scopolamine, rectal Compazine, Ativan, and a lidocaine patch to the pharmacy at discharge. He thought maybe lidocaine patch would help with her ongoing abdominal pain. She complained intermittently throughout her hospital course of perioral numbness and tongue numbness. She said her taste is not affected and had no other neurological issues. She may have an ongoing nutritional deficiency related to her previous Og-en-Y and I would recommend outpatient testing for micronutrients and vitamins that have not yet been tested. We did obtain a B12 level which was found to be 1675, however she had just obtained a B12 shot. Her folate was noted to be low normal at 4.0 so we did put her on folate supplementation. A TSH was obtained and found to be 0.57. She had extensive autoimmune work-up in July of this past year which did not yield any findings for ongoing issues. She was discharged home in stable condition on 12/13/2021. She has follow-up with Dr. Roberson in February 2022 and we recommended follow-up with her primary care physician within the next 2 weeks. She was also noted to be leukopenic with a white count of 1.3. This is not entirely new for her as she has had counts as low as 2.3 in the past. This was stable on repeat and I recommend outpatient follow-up CBC in 1 week for reassessment and if she remains low she may need further work-up with a PACO smear or follow-up with hematology as an outpatient. Reported out was 45,000 on the day of discharge however I discussed this with the lab and they felt that this was clumped and that since she was a very hard stick it might be better to repeat this in the future. A peripheral smear was obtained prior to discharge. I have instructed her to call her primary care physician and obtain a repeat follow-up CBC in 1 week. Discharge diagnoses: Chronic abdominal pain Chronic nausea and vomiting-vomiting resolved Chronic transaminitis Hyperbilirubinemia-improving Severe hepatic steatosis-suspect NAM -Liver biopsy pending Chronic anemia Thrombocytopenia-clumped on the day of discharge therefore an accurate -We will need outpatient repeat CBC Leukopenia Hypokalemia-resolved Og-en-Y anastomotic ulcer Hypertension Hyperlipidemia History of nephrolithiasis History of vitamin B12 deficiency Low normal folic acid level History of Og-en-Y gastric bypass Obesity Physical Exam Narrative Is still having abdominal pain however this is chronic and she has been able to eat and drink without any significant difficulty. She is having some nausea but no vomiting and was able to eat and keep things down. She had extensive conversation with Dr. Roberson early this morning and he feels there is no reason to keep her in the hospital medically any further and she needs outpatient follow-up with possible double-balloon enteroscopy versus laparoscopic assisted ERCP at a tertiary Medical Center but there is no urgency to either of these. He also did discuss with her the need for a liver biopsy which he ordered in July 2021 and she has not yet scheduled. There again, is no urgency to this and can be followed up with as an outpatient. Const alert, oriented x3 and no apparent distress Constitutional Narrative: Obese, middle-aged, white female sitting up in bed, appears comfortable, nontoxic, seems irritated this morning, she tells me Dr. Roberson told her she needed to stay till Wednesday to get her liver biopsy however my discussion with Dr. Roberson indicated she could go home and follow-up as an outpatient for these things, nursing at bedside General Appearance: cooperative, comfortable, well kempt and well developed Orientation / Consciousness: awake Exam Limitations: no limitations Nutritional Appearance: obese HEENT normocephalic, head/scalp atraumatic, hearing grossly normal bilaterally and moist oral mucous membranes HEENT Narrative: Ernestine 3, dentition is fair for age, no thrush Eyes PERRL, EOMs intact bilaterally and conjunctivae normal Eyes Narrative: No scleral icterus Neck no lymphadenopathy and supple Neck Narrative: Trachea midline, no thyroid enlargement Resp normal respiratory effort, no retractions, no use of accessory muscles and clear to auscultation bilaterally Auscultation: Negative for crackles, rales, rhonchi or wheezes Cardio regular rate, regular rhythm, S1 normal heart sound, S2 normal heart sound, no murmurs, no rub, no gallops, no clicks and no JVD GI normal to inspection, nondistended, normoactive bowel sounds and soft to palpation GI Narrative: Mild diffuse tenderness with no point tenderness, extensive scarring most notably at the inferior abdomen related to previous panniculectomy with recurrent surgeries Extremity no clubbing, cyanosis or edema Extremity Narrative: 2+ pedal pulses Skin no rashes or lesions noted, no wounds, skin turgor normal and no jaundice Neuro oriented x3, moves all extremities, no focal motor deficits and no sensory deficits noted Speech: speech normal Psych affect normal Psych Narrative: Very pleasant and appropriately interactive Weight / BMI Weight Weight: 96.7 kg Body Mass Index (BMI) 33.9 ABG / Lab / Microbiology Data Result Diagrams: 12/13/21 10:01 12/13/21 08:50 Laboratory: Laboratory Results - last 24 hr 12/12/21 05:45: Diff Path Review Reviewed 12/13/21 08:50: WBC Cancelled, Corrected WBC Cancelled, RBC Cancelled, Hgb Cancelled, Hct Cancelled, MCV Cancelled, MCH Cancelled, MCHC Cancelled, RDW Std Deviation Cancelled, RDW Coeff of Andrez Cancelled, Plt Count Cancelled, MPV Cancelled, Immature Gran % (Auto) Cancelled, Neut % (Auto) Cancelled, Lymph % (Auto) Cancelled, [place] % (Auto) Cancelled, Eos % (Auto) Cancelled, Baso % (Auto) Cancelled, Absolute Neuts (auto) Cancelled, Absolute Lymphs (auto) Cancelled, Total Counted Cancelled, Neutrophils % (Manual) Cancelled, Band Neutrophils % Cancelled, Lymphocytes % (Manual) Cancelled, Monocytes % (Manual) Cancelled, Eosinophils % (Manual) Cancelled, Basophils % (Manual) Cancelled, Metamyelocytes % Cancelled, Myelocytes % Cancelled, Promyelocytes % Cancelled, Blast Cells % Cancelled, Plasma Cell % (Manual) Cancelled, Other Cells % Cancelled, Nucleated RBC % Cancelled, Nucleated RBCs/100 WBC Cancelled, Differential Comment Cancelled, Diff Path Review Cancelled, Hypersegmented Neuts Cancelled, Atypical Lymphocytes Cancelled, Reactive Lymphocytes Cancelled, Smudge Cells Cancelled, Toxic Granulation Cancelled, Toxic Vacuolation Cancelled, Dohle Bodies Cancelled, Karissa Rods Cancelled, Platelet Estimate Cancelled, Plt Morphology Comment Cancelled, RBC Morphology Cancelled, Polychromasia Cancelled, Hypochromasia Cancelled, Poikilocytosis Cancelled, Basophilic Stippling Cancelled, Anisocytosis Cancelled, Microcytosis Cancelled, Macrocytosis Cancelled, Spherocytes Cancelled, Sickle Cells Cancelled, Target Cells Cancelled, Tear Drop Cells Cancelled, Ovalocytes Cancelled, Stomatocytes Cancelled, [place] Bodies Cancelled, [place] Cells Cancelled, Bite Cells Cancelled, Crenated Cell Cancelled, Acanthocytes (Spur) Cancelled, Rouleaux Cancelled, Schistocytes Cancelled Radiography Diagnostic Testing: Radiology Impression MRCP 12/12/21 10:08 IMPRESSION: Findings suggestive of fatty infiltration of the liver associated with hepatomegaly. Status post cholecystectomy. Electronically Signed: Jennifer Rivas MD at 11:25 EDT , Meaningful Use Info Meaningful Use Diagnoses (Choose all that apply): None applicable Discharge Plan Admission Admit Date/Time: 12/11/21 18:58 Primary Reason for Your Visit: Abdominal Pain/Nausea and Vomiting Attending Provider: Janice Leigh Primary Care Provider: Patricio Murguia Consulting Providers: Hayley Eli Instructions Additional Instructions / Restrictions: 1. Please call on Wednesday12/14/2021 to schedule your liver biopsy ordered by Dr. Roberson 2. Call primary care physician on 12/15/2021 to obtain an order for a follow-up complete blood count to be performed within the next week Discharge Orders/Prescriptions Prescriptions: New scopolamine base 1 mg over 3 days Patch 3 Day 1 patch transdermal Q3D Qty: 10 2RF lorazepam 0.5 mg Tablet 0.25 mg PO Q12 Qty: 15 0RF Rx Instructions: call GI for refills folic acid 1 mg Tablet 1 mg PO BREAKFAST Qty: 30 0RF prochlorperazine [Compazine] 25 mg suppository 25 mg TX BID PRN (Reason: nausea and vomiting) Qty: 12 2RF Continued sucralfate 100 mg/mL suspension 10 ml PO TID Qty: 1000 0RF tamsulosin 0.4 MG capsule 0.4 mg PO DAILY PRN PRN (Reason: kidney stones) cyanocobalamin (vitamin B-12) 1,000 MCG/ML solution 1,000 mcg IM Q30D ondansetron 4 MG tablet 4 mg PO 4X/DAY PRN PRN (Reason: Nausea) Qty: 30 1RF amitriptyline 50 MG tablet 50 mg PO QHS PRN PRN (Reason: Sleep) amlodipine 10 mg tablet 10 mg PO DAILY pantoprazole 40 MG tablet 40 mg PO BID 30 Days Qty: 0 0RF metoclopramide HCl 10 MG tablet 10 mg PO Q6H PRN (Reason: Nausea And Vomiting) Qty: 20 0RF Referrals / Follow Up: Heath Roberson DO [Med Staff - Active Staff] - See Referral Note (as scheduled) Patricio Murguia MD [Primary Care Provider] - Within 2 Weeks Disposition Disposition (needs filled in before D/C Order can be placed): Home, Self Care Charges/Coding Visit Charges Inpatient E&M: 94882 Disch Hosp
[2021-12-13 10:39] LABS: ALB/GLOB Ratio 0.8 RATIO (0.9-2.4); AST(SGOT) 137 U/L (15-37); Alanine Aminotransfer ALT/SGPT 87 U/L (13-56); Albumin, Serum 2.5 g/dL (3.2-5.0); Alkaline Phosphatase 164 U/L (45-117); Anion Gap 10 (5-15); BUN 6 mg/dL (7-18); Calcium,Total 8.3 mg/dL (8.5-10.1); Chloride 110 mmol/L (98-107); Cholesterol 168 mg/dL (200); EST Glomerular Filtration Rate 149 mL/min (>60); Est Glom Filt Rate - Afr Amer 180 mL/min (>60); Estimated Creatinine Clearance 147.01 ml/min; Globulin 3.1 g/dL (2.2-4.2); Glucose 105 mg/dL (74-106); High Density Lipoprotein 27 mg/dL; Magnesium 1.6 mg/dL (1.6-2.6); Phosphorus 1.7 mg/dL (2.5-4.9); Protein, Total 5.6 g/dL (6.4-8.2); Sodium Level 142 mmol/L (136-145); Thyroid Stim Hormone (TSH) 0.57 uIU/mL (0.358-3.74); Triglycerides 185 mg/dL; Very Low Density Lipoprotein 37 mg/dL (5-40)
[2021-12-13 10:56] LABS: Absolute Lymphocyte Count 0.32 X10^3/uL (0.83-4.51); Absolute Neutrophil Count 0.7 X10^3/uL (2.0-7.7); Basophil# 0.01 X10^3/uL; Basophil% 0.8 % (0-1); Eosinophil# 0.02 X10^3/uL; Eosinophils% 1.5 % (0-5); Hematocrit 34.5 % (37-47); Hemoglobin 11.8 g/dL (12.0-15.0); Lymphocyte # 0.32 X10^3/ul (0.83-4.51); Lymphocyte % 24.1 % (19-41); Mean Corp Hgb Conc 34.2 g/dL (32-36); Mean Corpuscular Volume 108.2 fL (81-99); Monocyte# 0.23 X10^3/uL; Monocyte% 17.3 % (0-10); NRBC Flagged by Analyzer 2.3 % (0-5); Neutrophil # 0.73 X10^3/uL (2.7-7.7); Neutrophil % 54.8 % (47-70); POSITIVE COUNT YES; POSITIVE DIFFERENTIAL YES; Platelet Count 45 K/mm3 (150-450); RBC Distribution Width CV 15.9 % (11.6-14.6); RBC Distribution Width SD 62.4 fl (35.1-43.9); Red Blood Count 3.19 M/mm3 (4.2-5.4)
[2021-12-13 11:10] VITALS: BP 138/93; PULSE 88; RESP 16; TEMP 37; O2SAT 100
[2021-12-13 11:36] LABS: Differential Indicated SCAN CRITERIA MET; White Blood Count 1.3 K/mm3 (4.4-11.0)
[2021-12-13 11:38] LABS: Differential Comment SCANNED; Platelet Estimate MKD DEC (ADEQ); Platelet Morphology LARGE
[2021-12-15 12:36] LABS: Pathologist Review Reviewed
== END 2021-12-13 12:30 | disposition home or self-care (01) ==
PROVIDERS: Admitting Provider Family Medicine; PCP Family Medicine; Visit Provider Internal Medicine
DX: K75.81 Nonalcoholic steatohepatitis (NASH) (principal); D61.818 Other pancytopenia; K76.6 Portal hypertension; K86.1 Other chronic pancreatitis; E87.6 Hypokalemia; E78.5 Hyperlipidemia, unspecified; E53.8 Deficiency of other specified B group vitamins; D72.819 Decreased white blood cell count, unspecified; I10 Essential (primary) hypertension; R11.2 Nausea with vomiting, unspecified; Z80.0 Family history of malignant neoplasm of digestive organs; E66.9 Obesity, unspecified; Z98.84 Bariatric surgery status; R74.01 Elevation of levels of liver transaminase levels; Z68.33 Body mass index [BMI] 33.0-33.9, adult; Z87.442 Personal history of urinary calculi; R10.9 Unspecified abdominal pain; G89.29 Other chronic pain
CPT/HCPCS: 36415; 74181; 80053; 80061; 82150; 82607; 82746; 83690; 83735; 84100; 84443; 85025; 85652; 86140; 97802; J7030

== ENCOUNTER 2022-02-18 11:00 | Emergency (ER) | payer MEDICAID, SELFPAY ==
[2022-02-18 11:02] VITALS: BP 184/117; PULSE 106; RESP 27; TEMP 35.9; O2SAT 97; BMI 29.9
[2022-02-18 11:05] VITALS: RESP 10
--- NOTE | 2022-02-18 12:03 | EDS_ITS ---
HPI History of Present Illness Chief Complaint: Numb/Ting Informant: patient Onset/Context/Timing Onset: Today Context: Gradual Onset Timing: Continuous Quality: Weakness, numbness, sharp pain Location: Bilateral lower extremities Worsened by: Epsom salt baths Relieved by: Nothing Narrative Narrative: Patient presents with pain and numbness in both lower extremities. Patient also admits to some abdominal pain. Patient admits to some nausea and vomiting. Patient denies any hematemesis or coffee-ground emesis. Patient states her abdominal pain feels similar to prior episodes of pancreatitis. Patient states she has weakness and numbness in both lower extremities. Patient states she has pain in both lower extremities. Patient describes the pain as sharp. Patient states her pain is worse with Epsom salt baths. Patient states nothing seems to help her pain. Patient admits to subjective fevers. Patient denies any urinary complaints. [facility] Medical History Abdominal pain Back problem Bladder infection Excessive weight loss Fatty liver Gallstones High blood pressure Intertrigo Kidney stones Nausea and vomiting Non-smoker Pancytopenia Soft tissue mass Stomach ulcer Transaminitis Ulcer Vitamin deficiency Home Medications tamsulosin 0.4 mg capsule 0.4 mg PO DAILY PRN PRN kidney stones 04/30/17 [History Last Taken 3 Weeks Ago ~06/25/21] cyanocobalamin (vitamin B-12) 1,000 mcg/mL injection solution 1,000 mcg IM Q30D VITAMIN 07/06/17 [History Last Taken 12/06/21] ondansetron 4 mg disintegrating tablet 4 mg PO 4X/DAY PRN PRN Nausea #30 tabs 03/16/19 [Rx Last Taken Unknown] amitriptyline 50 mg tablet 50 mg PO QHS PRN PRN Sleep 11/29/19 [History Last Taken 12/10/21] amlodipine 10 mg tablet 10 mg PO DAILY bp 07/16/21 [History Last Taken 12/06/21] pantoprazole 40 mg tablet,delayed release 40 mg PO BID 30 days #0 tabs 07/19/21 [Rx Last Taken 07/16/21] sucralfate 100 mg/mL oral suspension 10 ml PO TID #1,000 mL 08/08/21 [Rx Last Taken Unknown] metoclopramide HCl 10 mg tablet 10 mg PO Q6H PRN Nausea And Vomiting #20 tabs 10/29/21 [Rx Last Taken Unknown] folic acid 1 mg tablet 1 mg PO BREAKFAST #30 tabs 12/13/21 [Rx Last Taken Unknown] lidocaine 4 % topical patch 1 patch topical DAILY PRN pain #30 ea 12/13/21 [Rx Last Taken Unknown] lorazepam 0.5 mg tablet 0.25 mg PO Q12 #15 tabs 12/13/21 [Rx Last Taken Unknown] prochlorperazine 25 mg rectal suppository (Compazine) 25 mg MD BID PRN nausea and vomiting #12 ea 12/13/21 [Rx Last Taken Unknown] scopolamine base 1 mg over 3 days transdermal patch 1 patch transdermal Q3D #10 ea 12/13/21 [Rx Last Taken Unknown] sulfamethoxazole 800 mg-trimethoprim 160 mg tablet 1 tab PO BID #14 TABLETS 02/18/22 [Rx Last Taken Unknown] Allergy/AdvReac Type Severity Reaction Status Date / Time methocarbamol Allergy Chest Verified 02/18/22 11:02 tightness diphenhydramine AdvReac Other Verified 02/18/22 11:02 [From Benadryl] gabapentin AdvReac abnormal Verified 02/18/22 11:02 gait ketorolac tromethamine AdvReac Upset Verified 02/18/22 11:02 [From Toradol] Stomach NSAIDS (Non-Steroidal AdvReac gastric Verified 02/18/22 11:02 Anti-Inflamma bipass not supposed to take tramadol AdvReac Upset Verified 02/18/22 11:02 Stomach Family History Mother Anxiety Bleeding disorder Depression Hypertension High cholesterol Cancer Father Diabetes Hypertension Grandfather Colon cancer Diabetes Heart disease Surgical History History of cholecystectomy History of gastric bypass History of incision and drainage History of incision and drainage History of nephrolithotomy with removal of calculi History of thyroidectomy Status post panniculectomy (~09/17/16) Social History Smoking Status: Never smoker second hand exposure: Yes alcohol intake: current substance use type: does not use what type of physical activity do you participate in: other seatbelt use: always do you feel safe at home: Yes additional social history: SUN EXPOSURE: OCCASIONALLY ROS ROS ED Constitutional Constitutional ED: Reports fever(s) and subjective; Denies chills Eyes Eyes: Reports change in vision right; Denies diplopia ENT ENT ED: Denies rhinorrhea or sore throat Cardiovascular Cardiovascular: Denies chest pain or palpitations Respiratory/Chest Respiratory/Chest: Reports cough; Denies dyspnea Gastrointestinal Gastrointestinal: Reports abdominal pain, nausea and vomiting Genitourinary Genitourinary ED: Denies dysuria or hematuria Musculoskeletal Musculoskeletal: Denies back pain or neck pain Integumentary Denies abscess or rash Neurologic Neurologic: Denies headache(s) or weakness Allergic/Immunologic Allergic/Immunologic ED: Denies mouth swelling or urticaria EXAM Physical Exam Const Vital Signs: 02/18/22 11:02 02/18/22 11:05 02/18/22 13:16 Temperature 96.6 F L Temperature Source Temporal Pulse Rate 106 H 112 H Respiratory Rate 27 H 10 L 14 Blood Pressure 184/117 H 159/97 H Blood Pressure Mean 139 117 Pulse Ox 97 93 Oxygen Delivery Method Room Air Room Air Positive well nourished and well developed General Appearance ED: well developed and NAD HEENT Reports moist mucous membranes Neck supple and no JVD Resp normal respiratory effort and clear to auscultation bilaterally Cardio regular rate, regular rhythm and no murmurs GI normal to inspection, nondistended, normoactive bowel sounds Palpation: soft and tender epigastric; Negative for guarding or rebound tenderness present Extremity normal to inspection General Extremety ED: Negative for edema or tenderness General Extremity: Negative for edema Neuro oriented x3 and CN's II-XII intact bilaterally Sensorium / Orientation: alert Psych mental status grossly normal Skin no rashes or lesions noted MDM MDM MDM Narrative Medical decision making narrative: Patient was given IV fluids. Patient was given a dose of morphine and Zofran h ere. Patient was given a repeat dose of Zofran. CBC normal limits. PT with INR and PTT within normal limits. Comprehensive metabolic profile shows slightly elevated total bilirubin of 1.9 AST was 6079, ALT was 208, and alk phos was 181. Lipase was normal. Lactate was slightly elevated at 2.5. Blood cultures were obtained. Urinalysis shows a leukocyte esterase of 500 with 25-50 white blood cells and 4+ bacteria. Urine culture was ordered. Patient was given a dose of Rocephin here. I feel that the patient is stable to be discharged home. Patient was given a prescription for Bactrim. Was instructed to drink plenty of fluids. Patient was instructed to follow-up with her primary care physician in 3 to 5 days. Patient understood and was agreeable with plan. All questions were answered. Lab Data Attestation: I reviewed the patient's lab results. Labs: Laboratory Results - last 24 hr 02/18/22 02/18/22 02/18/22 12:40 12:40 12:40 WBC 4.3 L RBC 4.08 L Hgb 14.4 Hct 39.8 MCV 97.5 MCH 35.3 H MCHC 36.2 H RDW Std Deviation 59.6 H RDW Coeff of Andrez 16.6 H Plt Count 233 MPV 9.6 Immature Gran % (Auto) 0.500 Neut % (Auto) 83.6 H Lymph % (Auto) 6.8 L [place] % (Auto) 8.2 Eos % (Auto) 0.2 Baso % (Auto) 0.7 Absolute Neuts (auto) 3.6 Absolute Lymphs (auto) 0.29 L Nucleated RBC % 0 Differential Comment SCANNED PT 14.1 INR 1.1 APTT 25.7 Sodium 141 Potassium 3.3 L Chloride 101 Carbon Dioxide 29.0 Anion Gap 11 BUN 8 Creatinine 0.70 Estim Creat Clear Calc 104.01 Est GFR (MDRD) Af Amer 123 Est GFR (MDRD) Non-Af 101 BUN/Creatinine Ratio 11.5 Glucose 110 H Lactic Acid Calcium 8.7 Total Bilirubin 1.90 H AST 279 H ALT 208 H Alkaline Phosphatase 181 H Total Protein 6.1 L Albumin 2.8 L Globulin 3.3 Albumin/Globulin Ratio 0.8 L Lipase 79 Urine Color Urine Clarity Urine pH Ur Specific [place] Urine Protein Urine Glucose (UA) Urine Ketones Urine Occult Blood Urine Nitrite Urine Bilirubin Urine Urobilinogen Ur Leukocyte Esterase Urine RBC Urine WBC Ur Squamous Epith Cells Urine Bacteria Urine Mucus 02/18/22 02/18/22 12:40 13:15 WBC RBC Hgb Hct MCV MCH MCHC RDW Std Deviation RDW Coeff of Andrez Plt Count MPV Immature Gran % (Auto) Neut % (Auto) Lymph % (Auto) [place] % (Auto) Eos % (Auto) Baso % (Auto) Absolute Neuts (auto) Absolute Lymphs (auto) Nucleated RBC % Differential Comment PT INR APTT Sodium Potassium Chloride Carbon Dioxide Anion Gap BUN Creatinine Estim Creat Clear Calc Est GFR (MDRD) Af Amer Est GFR (MDRD) Non-Af BUN/Creatinine Ratio Glucose Lactic Acid 2.5 H* Calcium Total Bilirubin AST ALT Alkaline Phosphatase Total Protein Albumin Globulin Albumin/Globulin Ratio Lipase Urine Color [place] Urine Clarity Sl. Cloudy Urine pH 6.0 Ur Specific [place] 1.020 Urine Protein 30 H Urine Glucose (UA) Normal Urine Ketones 5 H Urine Occult Blood 10 H Urine Nitrite Negative Urine Bilirubin 3 H Urine Urobilinogen 12 H Ur Leukocyte Esterase 500 H Urine RBC 0 SEEN Urine WBC 25-50 SEEN Ur Squamous Epith Cells 0 SEEN Urine Bacteria 4+ Urine Mucus 0 SEEN Discharge Plan Triage Chief Complaint: Numb/Ting ED Provider: Salvatore Gilbert Dx/Rx/DC Orders Clinical Impression: Urinary tract infection, Lower extremity pain, bilateral Instructions: ED Neuropathy, Peripheral, ED Cystitis Female Adult Prescriptions: New sulfamethoxazole-trimethoprim [sulfamethoxazole-trimethoprim] 800-160 mg tablet 1 tab PO BID Qty: 14 0RF No Action sucralfate 100 mg/mL suspension 10 ml PO TID Qty: 1000 0RF tamsulosin 0.4 MG capsule 0.4 mg PO DAILY PRN PRN (Reason: kidney stones) cyanocobalamin (vitamin B-12) 1,000 MCG/ML solution 1,000 mcg IM Q30D ondansetron 4 MG tablet 4 mg PO 4X/DAY PRN PRN (Reason: Nausea) Qty: 30 1RF amitriptyline 50 MG tablet 50 mg PO QHS PRN PRN (Reason: Sleep) amlodipine 10 mg tablet 10 mg PO DAILY pantoprazole 40 MG tablet 40 mg PO BID 30 Days Qty: 0 0RF metoclopramide HCl 10 MG tablet 10 mg PO Q6H PRN (Reason: Nausea And Vomiting) Qty: 20 0RF scopolamine base 1 mg over 3 days Patch 3 Day 1 patch transdermal Q3D Qty: 10 2RF lorazepam 0.5 mg Tablet 0.25 mg PO Q12 Qty: 15 0RF Rx Instructions: call GI for refills folic acid 1 mg Tablet 1 mg PO BREAKFAST Qty: 30 0RF prochlorperazine [Compazine] 25 mg suppository 25 mg MD BID PRN (Reason: nausea and vomiting) Qty: 12 2RF lidocaine 4 % adhesive patch,medicated 1 patch topical DAILY PRN (Reason: pain) Qty: 30 0RF Primary Care Provider: Patricio Murguia Referrals: Patricio Murguia MD [Primary Care Provider] - 3-5 Days Disposition Disposition: Home, Self Care
[2022-02-18] MEDS: Ondansetron 4 MG/2 ML Vial IV ×2 (12:41→14:10)
[2022-02-18] MEDS: 0.9% Normal Saline 1,000 ML 1000 ML IV ×2 (12:41→13:53)
[2022-02-18] MEDS: Morphine 4 MG/ML Syringe IV (12:42)
[2022-02-18 12:57] LABS: Absolute Lymphocyte Count 0.29 X10^3/uL (0.83-4.51); Absolute Neutrophil Count 3.6 X10^3/uL (2.0-7.7); Basophil# 0.03 X10^3/uL; Basophil% 0.7 % (0-1); Eosinophil# 0.01 X10^3/uL; Eosinophils% 0.2 % (0-5); Hematocrit 39.8 % (37-47); Hemoglobin 14.4 g/dL (12.0-15.0); Lymphocyte # 0.29 X10^3/ul (0.83-4.51); Lymphocyte % 6.8 % (19-41); Mean Corp Hgb Conc 36.2 g/dL (32-36); Mean Corpuscular Hgb 35.3 pg (27.0-32.0); Mean Corpuscular Volume 97.5 fL (81-99); Mean Platelet Vol. 9.6 fl (6.2-12.0); Monocyte# 0.35 X10^3/uL; Monocyte% 8.2 % (0-10); NRBC Flagged by Analyzer 0 % (0-5); Neutrophil # 3.59 X10^3/uL (2.7-7.7); Neutrophil % 83.6 % (47-70); POSITIVE DIFFERENTIAL YES; Platelet Count 233 K/mm3 (150-450); RBC Distribution Width CV 16.6 % (11.6-14.6); RBC Distribution Width SD 59.6 fl (35.1-43.9); Red Blood Count 4.08 M/mm3 (4.2-5.4); White Blood Count 4.3 K/mm3 (4.4-11.0)
[2022-02-18 13:00] LABS: Differential Indicated SCAN CRITERIA MET
[2022-02-18 13:04] LABS: International Normalized Ratio 1.1; Prothrombin Time (Protime)PT. 14.1 SECONDS (11.7-14.9)
[2022-02-18 13:05] LABS: Partial Thromboplast Time 25.7 Seconds (24.1-36.2)
[2022-02-18 13:11] LABS: ALB/GLOB Ratio 0.8 RATIO (0.9-2.4); AST(SGOT) 279 U/L (15-37); Alanine Aminotransfer ALT/SGPT 208 U/L (13-56); Albumin, Serum 2.8 g/dL (3.2-5.0); Alkaline Phosphatase 181 U/L (45-117); Anion Gap 11 (5-15); BUN 8 mg/dL (7-18); BUN/Creat Ratio 11.5 RATIO (10-20); Calcium,Total 8.7 mg/dL (8.5-10.1); Chloride 101 mmol/L (98-107); EST Glomerular Filtration Rate 101 mL/min (>60); Est Glom Filt Rate - Afr Amer 123 mL/min (>60); Estimated Creatinine Clearance 104.01 ml/min; Globulin 3.3 g/dL (2.2-4.2); Glucose 110 mg/dL (74-106); Lipase 79 U/L (73-393); Potassium 3.3 mmol/L (3.5-5.1); Protein, Total 6.1 g/dL (6.4-8.2); Sodium Level 141 mmol/L (136-145)
[2022-02-18 13:16] VITALS: BP 159/97; PULSE 112; RESP 14; O2SAT 93
[2022-02-18 13:19] LABS: Mucous, Urine 0 SEEN /hpf (<or=2+); Red Blood Cells-Urine 0 SEEN /hpf (0-5); Squamous Epithelial Cells - UA 0 SEEN /hpf (5-10)
[2022-02-18 13:20] LABS: Color, Urine Amber (Yellow); Glucose, Dipstick Normal (Normal); Ketone-Dipstick 5 mg/dl (Negative); Leukocyte Esterase-Dipstick 500 /ul (Negative); Nitrite-Dipstick Negative (Negative); Occult Blood-Urine 10 /ul (Negative); Protein-Dipstick 30 mg/dl (Negative); Urine Clarity Sl. Cloudy (Clear); Urine Urobilinogen 12 mg/dl (Normal)
[2022-02-18 13:21] LABS: Differential Comment SCANNED
[2022-02-18 13:24] LABS: Lactic Acid 2.5 mmol/L (0.4-1.9)
[2022-02-18 13:29] LABS: Urine Bilirubin Dipstick 3 mg/dL (Negative)
[2022-02-18 13:35] LABS: White Blood Cells 25-50 SEEN /hpf (0-5)
[2022-02-18 13:36] LABS: Bacteria 4+ /hpf (None Seen)
[2022-02-18 15:37] VITALS: BP 144/96; PULSE 108; RESP 17; O2SAT 97
[2022-02-18] MEDS: Ceftriaxone 1 GM/50 ML BAG IV (15:41)
[2022-02-18 16:14] VITALS: PULSE 106; RESP 118; O2SAT 98
[2022-02-18 16:49] LABS: Reflex Lactate? Y
[2022-02-19 08:56] LABS: Bedside Glucose 113 mg/dL (74-106)
[2022-02-19 14:25] LABS: Pathologist Review Reviewed
== END 2022-02-18 16:20 | disposition home or self-care (01) ==
PROVIDERS: Emergency Provider Emergency Medicine; PCP Family Medicine; Visit Provider Emergency Medicine
DX: N39.0 Urinary tract infection, site not specified (principal); M79.604 Pain in right leg; M79.605 Pain in left leg; K76.0 Fatty (change of) liver, not elsewhere classified
CPT/HCPCS: 36415; 80053; 81001; 82962; 83605; 83690; 85025; 85610; 85730; 87040; 87077; 87086; 87088; 96361; 96365; 96375; 96376; 99285; J7030; A4216; J2405